=== PATIENT | male | born 1955 | race African-American/Black ===

== ENCOUNTER 2020-11-04 12:49 | Outpatient (CLI) | payer MEDICARE, MEDICAID, SELFPAY | END 2020-11-04 12:50 | disposition home or self-care (01) | LOC: ANHAUDIO 12:51 | PROVIDERS: PCP Family Medicine | DX: H90.3 Sensorineural hearing loss, bilateral (principal) | CPT/HCPCS: 92557; 92567 ==

== ENCOUNTER 2020-11-30 09:31 | Outpatient (RCR) | payer MEDICARE, MEDICAID, SELFPAY | END 2020-11-30 23:59 | disposition home or self-care (01) | LOC: ANHAUDIO 09:31 | PROVIDERS: PCP Family Medicine | DX: Z46.1 Encounter for fitting and adjustment of hearing aid (principal) | CPT/HCPCS: V5160; V5261 ==

== ENCOUNTER 2021-03-09 13:46 | Outpatient (RCR) | payer MEDICAID, SELFPAY | END 2021-03-09 23:59 | disposition home or self-care (01) | LOC: ANHAUDIO 13:46 | PROVIDERS: PCP Family Medicine; Visit Provider Family Medicine | DX: Z46.1 Encounter for fitting and adjustment of hearing aid (principal) | CPT/HCPCS: 99199 ==

== ENCOUNTER 2023-01-05 14:00 | Outpatient (RCR) | payer MEDICARE, MEDICAID, SELFPAY | END 2023-01-05 23:59 | disposition home or self-care (01) | LOC: ANHAUDIO 14:00 | PROVIDERS: PCP Family Medicine; Visit Provider Family Medicine | DX: Z46.1 Encounter for fitting and adjustment of hearing aid (principal) | CPT/HCPCS: 99199 ==

== ENCOUNTER 2025-02-05 16:07 | Inpatient (IN) | payer MEDICARE, MEDICAID, SELFPAY ==
--- NOTE | ~2025-02-05 | CT_ITS ---
CT brain wo con Ordering provider: Valentine Krause APRN History: 69 years Male with . altered mental status . Comparison: None. Technique: CT of the head without contrast. Radiation reduction technique utilized.The dose-length product was 1362 mGy-cm. FINDINGS: BRAIN PARENCHYMA AND CSF SPACES: Hypodense focus in the right occipital area is only seen in some of the images which is most likely artifactual.. Mild leukoaraiosis and diffuse cortical atrophy. Mild a theromatous disease. Old lacunar infarct seen in the left caudate head. No midline shift, mass effect or hemorrhage. The brain parenchyma and CSF spaces are otherwise normal. VISUALIZED PARANASAL SINUSES: Well aerated. MASTOIDS: Well aerated. BONES: The bones appear intact. SOFT TISSUES: Visualized nasopharynx is normal. Superficial soft tissues are normal. IMPRESSION: No acute intracranial findings. Reviewed, dictated and finalized at location A.
--- NOTE | ~2025-02-05 | XR_ITS ---
XR chest 1V Ordering provider: Valentine Krause APRN History: 69 years Male with . cardiac and COPD history . Comparison: None. FINDINGS: MEDIASTINUM: The cardiac silhouette is slightly enlarged. LUNGS: No infiltrates, effusions or pneumothorax. Prominent bronchovascular markings in the lower lob es medially. OTHER: No free air under the diaphragm. IMPRESSION: No acute cardiopulmonary pathology. Reviewed, dictated and finalized at location A.
[2025-02-05 16:10] VITALS: BP 116/64; PULSE 71; RESP 16; TEMP 36.6; O2SAT 100
[2025-02-05 17:16] VITALS: BP 123/56; PULSE 68; RESP 16; O2SAT 100
--- NOTE | 2025-02-05 17:24 | ECG_ITS ---
Test Date: 2025-02-05 17:49:18 Measurements Intervals [place] Rate: 64 P: 54 MI: 173 QRS: 80 QRSD: 97 T: 48 QT: 393 QTc: 406 Interpretive Statements SINUS RHYTHM CANNOT R/O SEPTAL INFARCT, AGE INDETERMINATE BASELINE ARTIFACT- I, II, III, AVR, AVL, AVF, V1-V6 ABNORMAL ECG No previous ECG available for comparison Electronically Signed On 02-05-2025 18:44:18 CDT by Luis Carlos Heredia D.O.
--- NOTE | 2025-02-05 17:26 | ED_ITS ---
HPI - Weakness General Chief complaint: Weakness Stated complaint: tremors, weakness Time Seen by Provider: 02/05/25 17:03 History of Present Illness HPI Narrative: Patient is 69-year-old male who presents to the ER with complaints of difficulty speaking, tremors, and weakness. He reports his symptoms have been going on for approximately 1 week. Patient reports he had back surgery about 7 weeks ago and has been living ever care for rehabilitation. He denies any pain at this time. Patient endorses a history AFib, COPD, diabetes, high blood pressure, recent laminectomy, and is on blood thinners. He denies any recent fevers, new medications, or nausea/vomiting. Related Data Home Medications ?Medication ?Instructions ?Recorded ?Confirmed ?Last Taken ?Type albuterol sulfate 90 mcg/actuation inhalation 02/05/25 Unknown History aerosol inhaler amlodipine 5 mg tablet mg 02/05/25 Unknown History apixaban 5 mg tablet (Eliquis) mg 02/05/25 Unknown History atorvastatin 80 mg tablet mg 02/05/25 Unknown History budesonide-formoterol HFA 160 inhalation 02/05/25 Unknown History mcg-4.5 mcg/actuation aerosol inhaler (Symbicort) carvedilol 25 mg tablet mg 02/05/25 Unknown History clopidogrel 75 mg tablet mg 02/05/25 Unknown History duloxetine 60 mg capsule,delayed mg PO 02/05/25 Unknown History release insulin glargine 100 unit/mL (3 unit subcut 02/05/25 Unknown History mL) subcutaneous pen (Lantus Solostar U-100 Insulin) insulin lispro 100 unit/mL subcut 02/05/25 Unknown History subcutaneous pen lactulose 10 gram/15 mL oral 02/05/25 Unknown History solution losartan 100 mg tablet mg 02/05/25 Unknown History omeprazole 20 mg capsule,delayed mg 02/05/25 Unknown History release oxycodone 5 mg tablet mg 02/05/25 Unknown History Allergies Allergy/AdvReac Type Severity Reaction Status Date / Time metformin Allergy Unknown Verified 02/05/25 17:21 vancomycin Allergy Unknown Verified 02/05/25 17:21 Review of Systems 2 Review of Systems: All systems reviewed & are unremarkable except as noted in HPI and below Exam 2 Narrative: GENERAL: Well appearing, well-nourished, non-toxic, in no acute distress. HEAD: Normocephalic, atraumatic. NECK: Supple. No adenopathy, no masses. RESPIRATORY: Airway patent, respirations nonlabored. Clear to auscultation bilaterally, no rales, rhonchi, wheezing. CARDIOVASCULAR: Regular rate and rhythm without murmurs, rubs, or gallops. Peripheral pulses 2+ and equal bilaterally. ABDOMINAL: Soft, nontender, nondistended, no hepatosplenomegaly. Normoactive BS. MUSCULOSKELETAL: Moves all extremities. Strength/ROM intact without gross deformities. SKIN: Warm, dry, normal color. No rashes. NEURO: A&O X3. Speech garbled. Left arm does not move (baseline), tremors in her right upper extremity, able to complete all neuro checks although L side weaker than R side (pt reports this is baseline), slight droop in L face with smile and tongue movement. : Pt's rectal exam indicates dark brown stool with no red blood. His hemoccult test was positive. Course Vital Signs Vital signs: Vital Signs Temperature 36.6 C 02/05/25 16:10 Pulse Rate 71 02/05/25 16:10 Respiratory Rate 16 02/05/25 16:10 Blood Pressure 116/64 02/05/25 16:10 Pulse Oximetry 100 02/05/25 16:10 Oxygen Delivery Room Air 02/05/25 16:10 Temperature 36.8 C 02/05/25 22:47 Pulse Rate 82 02/05/25 22:47 Respiratory Rate 26 H 02/05/25 22:47 Blood Pressure 158/58 H 02/05/25 22:47 Pulse Oximetry 100 02/05/25 22:47 Oxygen Delivery Room Air 02/05/25 17:16 MDM - Weakness MDM Narrative Medical decision making narrative: Patient is 69-year-old male who presents to the ER with complaints of difficulty speaking, tremors, and weakness. He reports his symptoms have been going on for approximately 1 week. Patient reports he had back surgery about 7 weeks ago and has been living ever care for rehabilitation. He denies any pain at this time. Patient endorses a history AFib, COPD, diabetes, high blood pressure, recent laminectomy, and is on blood thinners. He denies any recent fevers, new medications, or nausea/vomiting. * Pt initally reports he has never had a blood transfusion, but upon further discussion pt reports he has a history of anemia. Labs Ordered: CBC, CMP, troponin, type and screen, PTT, INR, TSH Imaging Ordered: CT brain, chest x-ray Medications Ordered: 1L NS IV bolus, 1U RBCs Results: Patient's chest x-ray indicates MEDIASTINUM: The cardiac silhouette is slightly enlarged. LUNGS: No infiltrates, effusions or pneumothorax. Prominent bronchovascular markings in the lower lobes medially. OTHER: No free air under the diaphragm. Patient's head CT indicates BRAIN PARENCHYMA AND CSF SPACES: Hypodense focus in the right occipital area is only seen in some of the images which is most likely artifactual.. Mild leukoaraiosis and diffuse cortical atrophy. Mild atheromatous disease. Old lacunar infarct seen in the left caudate head. No midline shift, mass effect or hemorrhage. The brain parenchyma and CSF spaces are otherwise normal. VISUALIZED PARANASAL SINUSES: Well aerated. MASTOIDS: Well aerated. BONES: The bones appear intact. SOFT TISSUES: Visualized nasopharynx is normal. Superficial soft tissues are normal. Pt's CBC indicates a red blood cell count of 2.16, hemoglobin of 5.4, hematocrit of 18.8%. His coags indicate a PT of 24.4 and aPTT of 65. Diagnosis: low hemoglobin Patient Education/Shared MDM: Results of lab work shared with patient. He originally refused blood transfusion, but then was in agreement after further discussion. Pt reports he had his back surgery at [facility] but he does not want to go back there for treatment. 2314- Pt endorses back pain. According to his records he usually takes Oxycodone at his SNF for pain control. Will give pt a [place] here in the ER. 2144-Spoke with Dr. Sims, who was in agreement with plan for admission. Pt will be admitted to the med/surg floor on telemetry. Spoke with pt who is in agreement with plan for admission. Differential Diagnosis Differential diagnosis: Likely anemia and dehydration Lab Data Attestation: I reviewed the patient's lab results. 02/05/25 18:48 02/05/25 18:48 Labs: Lab Results 02/05/25 02/05/25 Range/Units 18:48 20:35 WBC 4.9 (4.5-10.0) K/mm3 RBC 2.16 L (4.6-6.20) M/mm3 Hgb 5.4 L* (14.0-18.0) g/dL Hct 18.8 L* (42.0-52.0) % MCV 87.0 (80-100) fl MCH 25.0 L (26-34) pg MCHC 28.7 L (32-36) g/dl RDW 20.2 H (11.5-14.5) % Plt Count 182 (150-375) k/mm3 MPV 11.6 H (7.4-10.4) fl Immature Gran % (Auto) 0.2 (0-0.5) % Neut % (Auto) 63.6 (45.5-73.1) % Lymph % (Auto) 18.7 (18.3-44.2) % [place] % (Auto) 14.5 H (2.6-8.5) % Eos % (Auto) 2.6 (0-4.4) % Baso % (Auto) 0.4 (0.2-1.2) % Lymph # (Auto) 0.92 (0.9-3.2) K/mm3 [place] # (Auto) 0.7 H (0.1-0.6) K/mm3 Eos # (Auto) 0.1 (0-0.3) K/mm3 Baso # (Auto) 0.0 (0.0-0.1) K/mm3 Abs Immat Gran (auto) 0.01 (0.00-0.031) K/mm3 Absolute Neuts (auto) 3.1 (1.3-6.7) K/mm3 Absolute Nucleated RBC 0.000 (0.0-0.012) K/mm3 Band Neutrophils % Not Reportable Nucleated RBC % 0.0 (0.0-0.2) % Platelet Estimate Adequate (Adequate) Hypochromasia 1+ Anisocytosis 1+ Schistocytes None seen PT 24.4 H (11.1-14.7) Seconds INR 2.3 APTT 65.0 H (22.3-36.8) Seconds Sodium 138 (137-145) mmol/L Potassium 4.3 (3.4-5.0) mmol/L Chloride 105 (98-107) mmol/L Carbon Dioxide 27 (22-30) mmol/L Anion Gap 6 (4-12) mmol/L BUN 29 H (9-20) mg/dL Creatinine 1.20 (0.7-1.3) mg/dL Estim Creat Clear Calc 46 ml/min Estimated GFR 60 (59 - ) Glucose 149 H (65-110) mg/dL Calcium 8.2 L (8.4-10.2) mg/dL Iron 29 L (49-181) ug/dL TIBC 364 (265-497) ug/dL % Saturation 8 L (20-50) % Ferritin Pending Total Bilirubin 0.1 L (0.2-1.3) mg/dL AST 24 (17-59) U/L ALT 13 (6-50) U/L Alkaline Phosphatase 137 H (38-126) U/L Troponin I < 0.012 (0.000-0.034) ng/mL Total Protein 5.8 L (6.3-8.2) g/dL Albumin 3.2 L (3.5-5.1) g/dL Vitamin B12 Pending Folate Pending TSH 1.080 (0.465-4.680) uIU/mL Urine Color Yellow (Yellow) Urine Appearance Clear (Clear) Urine pH 6.0 (5.0-9.0) Ur Specific [place] 1.021 (1.001-1.035) Urine Protein Negative (Negative) mg/dL Urine Glucose (UA) 3+ H (Negative) mg/dL Urine Ketones Negative (Negative) mg/dL Ur Blood (Man) Negative (Negative) Urine Nitrate Negative (Negative) Urine Bilirubin Negative (Negative) Urine Urobilinogen 0.2 (<2.0) mg/dL Leukocyte Esterase Rfl Negative (Negative) PAT/UL Urine Opiates Screen Negative (Negative) Urine Methadone Screen Negative (Negative) Ur Barbiturates Screen Negative (Negative) Ur Phencyclidine Scrn Negative (Negative) Ur Amphetamine Screen Negative (Negative) U Benzodiazepines Scrn Negative (Negative) Urine Cocaine Screen Negative (Negative) U Cannabinoids Screen Negative (Negative) Blood Type O Positive Antibody Screen Negative Crossmatch See Detail Imaging Data Attestation: I personally reviewed and interpreted this imaging study as follows: Radiologist's impression: Impressions Head CT 02/05/25 17:45 IMPRESSION: No acute intracranial findings. Chest X-Ray 02/05/25 17:58 IMPRESSION: No acute cardiopulmonary pathology. Discharge Plan Discharge Clinical Impression: Anemia, Low hemoglobin Patient Disposition: Still a Patient Condition: Stable Patient Language: Kinyarwanda Prescriptions: No Action atorvastatin 80 mg tablet carvedilol 25 mg tablet clopidogrel 75 mg tablet amlodipine 5 mg tablet omeprazole 20 mg capsule,delayed release(DR/EC) albuterol sulfate 90 mcg/actuation HFA aerosol inhaler INHALATION losartan 100 mg tablet oxycodone 5 mg tablet insulin lispro 100 unit/mL insulin pen SUBCUT duloxetine 60 mg capsule,delayed release(DR/EC) PO lactulose 10 gram/15 mL solution budesonide-formoterol [Symbicort] 160-4.5 mcg/actuation HFA aerosol inhaler INHALATION insulin glargine [Lantus Solostar U-100 Insulin] 100 unit/mL (3 mL) insulin pen SUBCUT Eliquis 5 mg tablet Follow-up/Referrals: [place],Haresh Patel MD [Primary Care Provider] -
--- NOTE | 2025-02-05 17:32 | PC.NURSE ---
Pt to radiology at this time.
--- OUTSIDE RECORDS SUMMARY | 2025-02-05 18:02 | XMS_ITS | Encounter Summary ---
Author Organization [facility] Address [address] [place] [address] Care Team Providers Care Strip Cleaner Name Role Phone Joseph Rust MD Primary Care Provider [phone] Reason for Visit * Reason Onset Date Comments Post cpr - rib fracture & sm all right hemothorax,on elliquis 07/26/2023 Spoke W/ Desiree at Dr. Favio elliott's exchange/ Dr. Pérez environmental resource specialist Encounter Details Date Type Department Care Team (Late st Contact Info) Description 07/26/2023 Telephone [facility] Emergency [address] [place] [address] [place] [address] [place] [address] Post cpr - rib fracture & small right hemothorax,on iqu (Spoke W/ Desiree at Dr. Soria's exchange/ Dr. Pérez environmental resource specialist ) Social History Tobacco Use Types Packs/Day Years Used Date Smoking Tobacco: Every Day Cigarettes Feeling Safe Answer Date Recorded Are you in a relationship wi th someone who hurts you emotionally and/or physically? 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
--- OUTSIDE RECORDS SUMMARY | 2025-02-05 18:03 | XMS_ITS | Data Portability ---
Author Organization [facility]ITAL[facility]uthyGas[facility] Address [address] [place] [address] Care Team Providers Care Electrocardiographic Technician Name Role Phone JOSEPH RUST Primary Care Provider JOSEPH RUST Referring Provider [phone] Assessment No assessment recorded. Plan of Treatment Reminders Order Date Submit Date Provider Last Modified By Organization Details Last Modified Time Details Appointments None recorde d. Lab glucose , fingers tick, blood 2023 024 In-Office Order, Internal Use Only DO Not Attach Compendium DO Not Attach Compendium, Do Not Delete/merge, [id number] 13:31:18 HbA1c (hemogl obin A1c), blood 2023 024 In-Office Order, Internal Use Only DO Not Attach Compendium DO Not Attach Compendium, Do Not Delete/merge, [id number] 4 13:31:18 CMP, serum or plasma 2023 024 [facility], [address] [place] [address], [id number], 5 09:32:53 HbA1c (hemogl obin A1c), blood 2023 024 In-Office Order, Internal Use Only DO Not Attach Compendium DO Not Attach Compendium, Do Not Delete/merge, [id number] 4 13:51:17 glucose , fingers tick, blood 2023 024 In-Office Order, Internal Use Only DO Not Attach Compendium DO Not Attach Compendium, Do Not Delete/merge, [id number] 4 13:51:19 glucose , fingers tick, blood 2023 024 In-Office Order, Internal Use Only DO Not Attach Compendium DO Not Attach Compendium, Do Not Delete/merge, [id number] 4 17:42:06 HbA1c (hemogl obin A1c), blood 2023 024 In-Office Order, Internal Use Only DO Not Attach Compendium DO Not Attach Compendium, Do Not Delete/merge, [id number] 4 17:42:06 urinaly sis, dipstic k 2023 024 BOLIVAR In-Office Order, Internal Use Only DO Not Attach Compendium DO Not Attach Compendium, Do Not Delete/merge, [id number] 4 17:55:49 Referral neurolo gist referra l 2022 023 [facility], [address] [facility], [facility] [address], [place], [address], 4 01:40:01 neurolo gist referra l 2022 023 [facility], [address] [facility], [address], [place], [address], 3 18:35:23 Procedures None recorde d. Surgeries None recorde d. Imaging XR, chest, 2 view [facility] [address] [place], [address], 4 11:39:19 Medication Orders clopido grel 75 mg tablet 2023 024 [facility]48, [address] [place] [address], [id number], 13:31:48 omepraz ole 20 mg capsule ,delaye d release 2023 [facility] #27504, [address] [place] [address], [id number], 4 13:31:44 albuter ol sulfate HFA 90 mcg/act uation aerosol inhaler 2023 [facility] #97058, [address] [place] [address], [id number], 13:31:42 albuter ol sulfate 2.5 mg/3 mL (0.083 %) solutio n for nebuliz ation 2023 [facility] #84668, [address] [place] [address], [id number], 13:31:50 Symbico rt 160 mcg-4.5 mcg/act uation HFA aerosol inhaler 2023 [facility] #79674, [address] [place] [address], [id number], 13:31:42 Incruse Ellipta 62.5 mcg/act uation powder for inhalat ion 2023 [facility] #19328, [address] [place] [address], [id number], 13:31:40 atorvas tatin 80 mg tablet 2023 [facility] #07483, [address] [place] [address], [id number], 4 13:31:47 Enulose 10 gram/15 mL oral solutio n 2023 [facility] #76469, [address] [place] [address], [id number], 4 13:31:45 hydroxy zine HCl 10 mg tablet [email or web address] [place] [address] [facility] #80652, [address] [place] [address], [id number], 4 13:38:23 carvedi lol 25 mg tablet 2023 [facility] #87132, [address] [place] [address], [id number], 4 13:31:41 amlodip ine 5 mg tablet [email or web address] [facility] #66780, [address] [place] [address], [id number], 4 13:31:52 losarta n 100 mg tablet 2023 [facility] #12002, [address] [place] [address], [id number], 4 13:31:50 duloxet ine 60 mg capsule ,delaye d release 2023 [facility] #80179, [address] [place] [address], [id number], 4 13:31:45 clopido grel 75 mg tablet 2023 [facility] #25977, [address] [place] [address], [id number], 4 20:25:29 omepraz ole 20 mg capsule ,delaye d release 2023 [facility] #46267, [address] [place] [address], [id number], 4 20:26:04 albuter ol sulfate HFA 90 mcg/act uation aerosol inhaler 2023 [facility] #15720, [address] [place] [address], [id number], 4 20:26:10 albuter ol sulfate 2.5 mg/3 mL (0.083 %) solutio n for nebuliz ation 2023 [facility] #49585, [address] [place] [address], [id number], 4 20:26:15 Symbico rt 160 mcg-4.5 mcg/act uation HFA aerosol inhaler 2023 [facility] #28743, [address] [place] [address], [id number], 4 20:26:15 Incruse Ellipta 62.5 mcg/act uation powder for inhalat ion 2023 [facility] #25425, [address] [place] [address], [id number], 4 20:25:55 atorvas tatin 80 mg tablet 2023 [facility] #76753, [address] [place] [address], [id number], 4 20:25:59 hydroxy zine HCl 10 mg tablet 2023 [facility] #86818, [address] [place] [address], [id number], 4 20:26:15 carvedi lol 25 mg tablet 2023 024 [facility] #96645, [address] [place] [address], [id number], 4 20:26:15 amlodip ine 5 mg tablet 2023 024 [facility] #98763, [address] [place] [address], [id number], 4 20:25:21 losarta n 100 mg tablet 2023 024 [facility] #49763, [address] [place] [address], [id number], 4 20:25:49 duloxet ine 60 mg capsule ,delaye d release 2023 024 [facility] #20612, [address] [place] [address], [id number], 4 20:26:28 pregaba dilshad 75 mg capsule 2023 024 [facility], [address] [place] [address], [id number], 4 11:16:30 pregaba dilshad 75 mg capsule 2023 024 [facility] #41734, [address] [place] [address], [id number], 4 17:42:04 nortrip tyline 25 mg capsule 2022 023 [facility] #30264, [address] [place] [address], [id number], 15:32:46 ketocon azole 2 % topical cream 2022 [facility] #06368, [address] [place], [place], [id number], 15:32:41 Patient TargetsNo targets recorded. Patient Instructions Encounter Date Encounter Id Patient Instructions Last Modified By Organization Details Last Modified Time 06/06/2023 [id number] osteoarthritis: care instructions Not available 06/06/2023 18:06:31 stroke: care instructions Not available 06/06/2023 18:06:31 gastroesophageal reflux disease (GERD): care instructions Not available 06/06/2023 18:06:31 learning about h igh blood pressure Not available 06/06/2023 18:06:31 chronic obstruct joseph pulmonary disease (COPD): care instructions Not available 06/06/2023 18:06:31 learning about c opd and how to prevent lung infections Not available 06/06/2023 18:06:31 neuropathic pain : care instructions Not available 06/06/2023 18:06:31 06/15/2023 [id number] toenail fungus: care instructions fharry Not available 06/15/2023 16:14:33 athlete's foot: care instructions fharry Not available 06/15/2023 16:14:33 2023 [id number] Peripheral Arter ial Disease (PAD): Care Instructions Not available 2023 17:42:04 (RUEL) ankle brac hial index* BOLIVAR Not available 01/04/2024 10:41:09 stroke: care instructions Not available 2023 17:42:04 chronic obstruct joseph pulmonary disease (COPD): care instructions Not available 2023 17:42:04 learning about c opd and how to prevent lung infections Not available 2023 17:42:04 lumbar spinal stenosis: care instructions Not available 2023 17:42:04 atrial fibrillat ion: care instructions Not available 2023 17:42:04 learning about h igh blood pressure Not available 2023 17:42:04 03/11/2024 [id number] stroke: care instructions Not available 03/11/2024 13:51:11 back care and preventing injuries: care instructions Not available 03/11/2024 13:51:12 gastroesophageal reflux disease (GERD): care instructions Not available 03/11/2024 13:51:12 chronic obstruct joseph pulmonary disease (COPD): care instructions Not available 03/11/2024 13:51:12 learning about c opd and how to prevent lung infections Not available 03/11/2024 13:51:12 high cholesterol : care instructions Not available 03/11/2024 13:51:12 learning about h igh blood pressure Not available 03/11/2024 13:51:12 learning about m ood disorders Not available 03/11/2024 13:51:12 neuropathic pain : care instructions Not available 03/11/2024 13:51:12 08/02/2024 [id number] stroke: care instructions Not available 08/02/2024 13:31:18 back care and preventing injuries: care instructions Not available 08/02/2024 13:31:18 gastroesophageal reflux disease (GERD): care instructions Not available 08/02/2024 13:31:18 chronic obstruct joseph pulmonary disease (COPD): care instructions Not available 08/02/2024 13:31:19 learning about c opd and how to prevent lung infections Not available 08/02/2024 13:31:18 high cholesterol : care instructions Not available 08/02/2024 13:31:18 carotid stenosis : care instructions Not available 08/02/2024 13:31:18 constipation: ca re instructions Not available 08/02/2024 13:31:18 learning about h igh blood pressure Not available 08/02/2024 13:31:18 learning about m ood disorders Not available 08/02/2024 13:31:18 neuropathic pain : care instructions Not available 08/02/2024 13:31:19 Reason for Referral Neurologist Referral for Juliann ropathy Referring Physician: Joseph Rust [facility], Encounter Date: 06/06/2023 Neurologist Referral for Cer ebrovascular accident Referring Physician: Joseph Rust [facility], Encounter Date: 06/06/2023 Results Created Date Observation Date Name Description Value Unit Range Abnormal Flag Note LastModifiedBy Organization Detail LastModifiedTime 10/04/19 24 10/04/2023 WOUND CULTU RE [facility] [place] [address] Patie nt:CAREY SLAUGHTER [id number] Med Rec#: [id number] Order ing MD: TRINY NICE : [birth year] Sex: M Locat ion: [facility] B Test: WOUND CULTU RE Colle ct Date: 10-04 15:10 Acces preethi #: [id number] Not Available [facility] (Lab) One [facility], [place], [address], 10/07/2023 11:16:17 10/04/19 24 10/04/2023 WOUND CULTU RE wound culture SPECI MEN DESCR IPTIO N - THIGH ,LEFT SPECI AL REQUE STS - NO SPECI AL REQUE ST GRAM SMEAR - RARE WHITE BLOOD CELLS SEEN GRAM SMEAR - MODER ATE RED BLOOD CELLS SEEN GRAM SMEAR - NO ORGAN ISMS SEEN CULTU RE - NO GROWT H 3 DAYS CULTU RE - NOTE: WOUND AND TISSU E CULTU RES ARE ROUTI ARLEEN SCREE KAYLAH FOR AEROB IC ORGAN ISMS CULTU RE - ONLY. REPOR T STATU S - FINAL 10/07 Not Available [facility] (Lab) One [facility], [place], [address], 10/07/2023 11:16:17 10/04/19 24 10/04/2023 HEMOG LOBIN A1C hemoglobin A1C 6.4 % <5.7 high ADA GUIDE LINES 2010 5.7 TO 6.4% INCRE ASED RISK OF DIABE ALYSA > OR = 6.5% CONSI STENT WITH DIABE ALYSA Not Available [facility] (Lab) [place], [address], 10/04/2023 21:38:10 10/04/19 24 10/04/2023 HEMOG LOBIN A1C estimated average glucose, isadora 137 mg/dL Not Available [facility] (Lab) [address], [place], [address], 10/04/2023 21:38:10 12/19/19 24 12/19/2023 VITAM IN B12 vitamin B12 1126 pg/mL 254-13 20 Not Available [facility] (Lab) [address], [place], [address], 12/19/2023 14:55:14 12/19/19 24 12/19/2023 FOLAT E folate 26.8 NG/mL 3.1-17 .5 high Not Available [facility] (Lab) [place], [address], 12/19/2023 14:55:15 12/19/19 24 12/24/2023 VITAM IN B6, PLASM A vitamin B6, plasma 8.1 Refer ence range : 2.1 to 21.7 Unit: ng/mL Vitam in suppl ement ation withi n 24 hours prior to blood draw may affec t the accur acy of the resul ts. This test was devel oped and its jeff tical perfo rmanc e jonas cteri stics have been deter mined by [facility] Mirela [facility], [place]. It has not been clear ed or appro diana by the U.S. Food and Drug Admin istra tion. This assay has been valid ated pursu ant to the CLIA regul ation s and is used for clini isadora purpo ses. Test Perfo rmed by Rukhsana Nance, [facility], [address] [place], [place] Belen Whitlock M.D., Ph.D. , [facility] atori es , CLIA [id number] Not Available [facility] (Lab) [place], [address], 12/24/2023 16:06:25 12/19/19 24 2023 VITAM IN B1, LCMSM S vitamin B1, lcmsms 33 high Refer ence range : 8 to 30 Unit: nmol/ L Vitam in suppl ement atjose enrique withi n 24 hours prior to blood draw may affec t the accur acy of the unm hospital ts. This test was devel oped and its jeff tical perfo rmanc e jonas cteri stics have been deter mined by [facility] [place]. It has not been clear ed or appro diana by the U.S. Food and Drug Admin istra tion. This assay has been valid ated pursu ant to the CLIA regul ation s and is used for clini isadora purpo ses. Test Perfo rmed by Rukhsana Nance, [facility], [address] [facility] , [place], [place] Belen Whitlock M.D., Ph.D. , [facility] atori es [phone], CLIA [id number] Not Available [facility] (Lab) [place], [address], 2023 06:09:32 12/19/19 24 12/19/2023 Folat e [Mass /volu me] in Serum or Plasm a folate [mass/volume ] in serum or plasma 26.8 text: 3.1 - 17.5 NG/mL high FOLAT E 26.8 (H) 3.1 - 17.5 NG/ML 12/18 1:55 PM CDT [facility] Not Available Not Available 11/12/2024 11:10:10 12/19/19 24 12/19/2023 Folat e [Mass /volu me] in Serum or Plasm a interpretati on and review of laboratory results Abnorm al Not Available Not Available 11:10:10 12/19/19 24 12/24/2023 Pyrid oxine [Mass /volu me] in Serum or Plasm a pyridoxine [mass/volume ] in serum or plasma 8.1 NG/mL low: 2.1NG/ mLhigh : 21.7NG /mL VITAM IN B6 S/P/B 8.1 2.1 - 21.7 ng/mL 12/23 3:06 PM CDT [facility] Not Available Not Available 11/12/2024 11:10:10 12/19/19 24 2023 Miguel ine [Mole s/vol ume] in Serum or Plasm a thiamine [moles/volum e] in serum or plasma 33 nmol/ L low: 8nmol/ Lhigh: 30nmol /L high VITAM IN B1 S/P/B 33 (H) 8 - 30 nmol/ L 12/24 5:09 AM CDT [facility] Not Available Not Available 11/12/2024 11:10:10 12/19/19 24 2023 Miguel ine [Mole s/vol ume] in Serum or Plasm a interpretati on and review of laboratory results Abnorm al Not Available Not Available 11:10:10 12/19/19 24 12/19/2023 Cobal dinh (Norma min B12) [Mass /volu me] in Serum or Plasm a cobalamin (vitamin B12) [mass/volume ] in serum or plasma 1126 pg/mL low: 254pg/ mLhigh : 1320pg /mL VITAM IN B12 S/P/B 1,126 254 - 1,320 PG/ML 12/18 1:55 PM CDT [facility] Not Available Not Available 11/12/2024 11:10:10 12/25/19 24 2023 urina lysis , dipst ick Leukocytes Negati ve Not Available In-Office Order Internal Use Only DO Not Attach Compendium DO Not Attach Compendium, Do Not Delete/merge, [id number] 2023 17:08:21 12/25/19 24 2023 urina lysis , dipst ick Nitrite negati ve Not Available In-Office Order Internal Use Only DO Not Attach Compendium DO Not Attach Compendium, Do Not Delete/merge, 2023 17:08:21 12/25/19 24 2023 urina lysis , dipst ick Urobilinogen 1 Not Available In-Of fice Order Internal Use Only DO Not Attach Compendium DO Not Attach Compendium, Do Not Delete/merge, 2023 17:08:21 12/25/19 24 2023 urina lysis , dipst ick Protein 30 Not Available In-Office Order Internal Use Only DO Not Attach Compendium DO Not Attach Compendium, Do Not Delete/merge, 2023 17:08:21 12/25/19 24 2023 urina lysis , dipst ick pH 6.0 Not Available In-Office Order Internal Use Only DO Not Attach Compendium DO Not Attach Compendium, Do Not Delete/merge, 2023 17:08:21 12/25/19 24 2023 urina lysis , dipst ick Blood Negati ve Not Available In-Office Order Internal Use Only DO Not Attach Compendium DO Not Attach Compendium, Do Not Delete/merge, 2023 17:08:21 12/25/19 24 2023 urina lysis , dipst ick Specific [place] 1.025 Not Available In-Off ice Order Internal Use Only DO Not Attach Compendium DO Not Attach Compendium, Do Not Delete/merge, 2023 17:08:21 12/25/19 24 2023 urina lysis , dipst ick Ketone Negati ve Not Available In-Office Order Internal Use Only DO Not Attach Compendium DO Not Attach Compendium, Do Not Delete/merge, 2023 17:08:21 12/25/19 24 2023 urina lysis , dipst ick Bilirubin Negati ve Not Available In-Office Order Internal Use Only DO Not Attach Compendium DO Not Attach Compendium, Do Not Delete/merge, 2023 17:08:21 12/25/19 24 2023 urina lysis , dipst ick Glucose Negati ve Not Available In-Office Order Internal Use Only DO Not Attach Compendium DO Not Attach Compendium, Do Not Delete/merge, 2023 17:08:21 12/25/19 24 2023 urina lysis , dipst ick Appearance Clear Not Available In-Offi ce Order Internal Use Only DO Not Attach Compendium DO Not Attach Compendium, Do Not Delete/merge, 2023 17:08:21 12/25/19 24 2023 urina lysis , dipst ick Color Yellow Not Available In-Office Order Internal Use Only DO Not Attach Compendium DO Not Attach Compendium, Do Not Delete/merge, 2023 17:08:21 12/25/1912/25/2023 HbA1c (hemo globi n A1c), blood HbA1c 7.2 Not Available In-Office Order Internal Use Only DO Not Attach Compendium DO Not Attach Compendium, Do Not Delete/merge, 2023 17:02:45 12/25/19 24 2023 gluco se, finge rstic k, blood Blood Glucose: mg/dl 196 Not Available In-Off ice Order Internal Use Only DO Not Attach Compendium DO Not Attach Compendium, Do Not Delete/merge, [id number] 2023 17:02:44 03/06/20 24 03/06/2024 Basic metab olic 1999 panel - Serum or Plasm a sodium [moles/volum e] in serum or plasma 137 mmol/ L low: 136mmo l/Lhig h: 145mmo l/L SODIU M 137 136 - 145 mmol/ L 03/06 6:38 PM CDT [facility] Not Available Not Available 11/08/2024 09:51:40 03/06/20 24 03/06/2024 Basic metab olic 1999 panel - Serum or Plasm a potassium [moles/volum e] in serum or plasma 5.2 mmol/ L low: 3.4mmo l/Lhig h: 5.1mmo l/L high POTAS SIUM 5.2 (H) 3.4 - 5.1 mmol/ L 03/06 6:38 PM CDT [facility] Not Available Not Available 11/08/2024 09:51:40 03/06/20 24 03/06/2024 Basic metab olic 1999 panel - Serum or Plasm a chloride 98 mmol/ L low: 98mmol /Lhigh : 107mmo l/L CHLOR SYLVIA 98 98 - 107 mmol/ L 03/06 6:38 PM CDT [facility] Not Available Not Available 11/08/2024 09:51:40 03/06/20 24 03/06/2024 Basic metab olic 1999 panel - Serum or Plasm a carbon dioxide, total [moles/volum e] in serum or plasma 26 mmol/ L low: 22mmol /Lhigh : 29mmol /L CO2 26 22 - 29 mmol/ L 03/06 6:38 PM CDT [facility] Not Available Not Available 11/08/2024 09:51:40 03/06/20 24 03/06/2024 Basic metab olic 1999 panel - Serum or Plasm a calcium 8.7 mg/dL low: 8.6mg/ dLhigh : 10.4mg /dL CALCI UM 8.7 8.6 - 10.4 mg/dL 03/06 6:38 PM CDT [employer] [facility] Not Available Not Available 11/08/2024 09:51:40 03/06/20 24 03/06/2024 Basic metab olic 2000 panel - Serum or Plasm a BUN 31 mg/dL low: 6mg/dL high: 20mg/d L high BUN 31 (H) 6 - 20 mg/dL 03/06 6:38 PM CDT [facility] Not Available Not Available 11/08/2024 09:51:40 03/06/20 24 03/06/2024 Basic metab olic 1999 panel - Serum or Plasm a creatinine [mass/volume ] in serum or plasma 0.89 mg/dL low: 0.67mg /dLhig h: 1.17mg /dL CREAT ININE 0.89 0.67 - 1.17 mg/dL 03/06 6:38 PM T [employer] [facility] Not Available Not Available 11/08/2024 09:51:40 03/06/20 24 03/06/2024 Basic metab olic 2000 panel - Serum or Plasm a glucose [mass/volume ] in serum or plasma 347 mg/dL low: 74mg/d Lhigh: 99mg/d L high GLUCO SE 347 (H) 74 - 99 mg/dL 03/06 6:38 PM CDT [facility] Not Available Not Available 11/08/2024 09:51:40 03/06/2003/06/2024 Basic metab olic 2000 panel - Serum or Plasm a glomerular filtration rate/1.73 sq M.predicted [volume rate/area] in serum, plasma or blood by creatinine-b ased formula (CKD-epi 2020) text: >=60 mL/min /1.73 sq meter GFR >60 >=60 mL/mi n/1.7 3 sq meter 03/06 6:38 PM CDT [employer] [facility] Not Available Not Available 11/08/2024 09:51:40 03/06/20 24 03/06/2024 Basic metab olic 2000 panel - Serum or Plasm a anion gap 13 mmol/ L low: 8mmol/ Lhigh: 16mmol /L ANION GAP 13 8 - 16 mmol/ L 03/06 6:38 PM CDT [facility] Not Available Not Available 11/08/2024 09:51:40 03/06/20 24 03/06/2024 Basic metab olic 1999 panel - Serum or Plasm a interpretati on and review of laboratory results Abnorm al Not Available Not Available 09:51:40 03/06/20 24 03/06/2024 CBC W Auto Diffe renti al panel - Blood leukocytes [#/volume] in blood 5.9 K/uL low: 4.5K/u Lhigh: 10.5K/ uL WBC 5.9 4.5 - 10.5 K/uL 03/06 6:17 PM CDT [facility] Not Available Not Available 11/08/2024 09:51:40 03/06/20 24 03/06/2024 CBC W Auto Diffe renti al panel - Blood RBC 3.64 text: 4.50 - 5.40 M/uL low RBC 3.64 (L) 4.50 - 5.40 M/uL 03/06 6:17 PM CDT [employer] [facility] Not Available Not Available 11/08/2024 09:51:40 03/06/20 24 03/06/2024 CBC W Auto Diffe renti al panel - Blood hemoglobin 7.9 g/dL low: 13.6g/ dLhigh : 16.5g/ dL low HEMOG LOBIN 7.9 (L) 13.6 - 16.5 g/dL 03/06 6:17 PM CDT [employer] DENNIS [employer] [facility] Not Available Not Available 11/08/2024 09:51:40 03/06/20 24 03/06/2024 CBC W Auto Diffe renti al panel - Blood hematocrit [volume fraction] of blood by automated count 26.9 % low: 40%hig h: 48% low HEMAT OCRIT 26.9 (L) 40.0 - 48.0 % 03/06 6:17 PM CDT [employer] [facility] Not Available Not Available 11/08/2024 09:51:40 03/06/20 24 03/06/2024 CBC W Auto Diffe renti al panel - Blood MCV 73.9 fL low: 82fLhi gh: 99fL low MCV 73.9 (L) 82.0 - 99.0 fL 03/06 6:17 PM CDT [employer] [facility] Not Available Not Available 11/08/2024 09:51:40 03/06/20 24 03/06/2024 CBC W Auto Diffe renti al panel - Blood MCH 21.8 pg low: 27.8pg high: 34.5pg low MCH 21.8 (L) 27.8 - 34.5 pg 03/06 6:17 PM CDT [employer] [facility] Not Available Not Available 11/08/2024 09:51:40 03/06/20 24 03/06/2024 CBC W Auto Diffe renti al panel - Blood MCHC 29.5 g/dL low: 32.5g/ dLhigh : 35.5g/ dL low MCHC 29.5 (L) 32.5 - 35.5 g/dL 03/06 6:17 PM CDT [employer] [facility] Not Available Not Available 11/08/2024 09:51:40 03/06/20 24 03/06/2024 CBC W Auto Diffe renti al panel - Blood RDW 21.8 % low: 11.5%h igh: 14.5% high RDW 21.8 (H) 11.5 - 14.5 % 03/06 6:17 PM CDT [facility] Not Available Not Available 11/08/2024 09:51:40 03/06/20 24 03/06/2024 CBC W Auto Diffe renti al panel - Blood platelets [#/volume] in blood by automated count 240 K/uL low: 160K/u Lhigh: 420K/u L PLATE LETS 240 160 - 420 K/uL 03/06 6:17 PM CDT [employer] [facility] Not Available Not Available 11/08/2024 09:51:40 03/06/20 24 03/06/2024 CBC W Auto Diffe renti al panel - Blood MPV 7.5 fL low: 8.7fLh igh: 12.7fL low MPV 7.5 (L) 8.7 - 12.7 fL 03/06 6:17 PM CDT [facility] Not Available Not Available 11/08/2024 09:51:40 03/06/20 24 03/06/2024 CBC W Auto Diffe renti al panel - Blood neutrophils 94 % NEUTR OPHIL S 94 % 03/06 6:17 PM CDT [facility] Not Available Not Available 11/08/2024 09:51:40 03/06/20 24 03/06/2024 CBC W Auto Diffe renti al panel - Blood lymphocytes/ 100 leukocytes in blood by automated count 2 % LYMPH OCYTE S 2 % 03/06 6:17 PM CDT [facility] Not Available Not Available 11/08/2024 09:51:40 03/06/20 24 03/06/2024 CBC W Auto Diffe renti al panel - Blood monocytes 4 % MONOC YTES 4 % 03/06 6:17 PM CDT [facility] Not Available Not Available 11/08/2024 09:51:40 03/06/20 24 03/06/2024 CBC W Auto Diffe renti al panel - Blood eosinophils 0 % EOSIN OPHIL S 0 % 03/06 6:17 PM CDT [facility] Not Available Not Available 11/08/2024 09:51:40 03/06/20 24 03/06/2024 CBC W Auto Diffe renti al panel - Blood basophils 0 % BASOP HILS 0 % 03/06 6:17 PM CDT [facility] Not Available Not Available 11/08/2024 09:51:40 03/06/20 24 03/06/2024 CBC W Auto Diffe renti al panel - Blood neutrophils [#/volume] in blood by automated count 5.6 K/uL low: 1.9K/u Lhigh: 7K/uL NEUTR OPHIL ABSOL [place] BAND 5.60 1.90 - 7.00 K/uL 03/06 6:17 PM CDT [facility] Not Available Not Available 11/08/2024 09:51:40 03/06/20 24 03/06/2024 CBC W Auto Diffe marisolti al panel - Blood lymphocyte absolute 0.1 K/uL low: 0.7K/u Lhigh: 4.5K/u L low LYMPH OCYTE ABSOL [place]AIR[place] BAND 0.10 (L) 0.70 - 4.50 K/uL 03/06 6:17 PM CDT [facility] Not Available Not Available 11/08/2024 09:51:40 03/06/20 24 03/06/2024 CBC W Auto Diffe rose minaya panel - Blood monocyte absolute 0.2 K/uL low: 0.1K/u Lhigh: 1.3K/u L MONOC YTE ABSOL [place] BAND 0.20 0.10 - 1.30 K/uL 03/06 6:17 PM CDT [facility] Not Available Not Available 11/08/2024 09:51:40 03/06/20 24 03/06/2024 CBC W Auto Diffe rose al panel - Blood eosinophil absolute 0 K/uL low: 0K/uLh igh: 0.7K/u L EOSIN OPHIL ABSOL [place]AIR[place] BAND 0.00 0.00 - 0.70 K/uL 03/06 6:17 PM CDT [facility] Not Available Not Available 11/08/2024 09:51:40 03/06/20 24 03/06/2024 CBC W Auto Diffe rose al panel - Blood basophils absolute 0 K/uL low: 0K/uLh igh: 0.2K/u L BASOP HILS ABSOL [place]IR[place] BAND 0.00 0.00 - 0.20 K/uL 03/06 6:17 PM CDT [facility] Not Available Not Available 11/08/2024 09:51:40 03/06/20 24 03/06/2024 CBC W Auto Diffe rose al panel - Blood interpretati on and review of laboratory results Abnorm rei Not Available Not Available 09:51:40 03/07/20 24 03/07/2024 Basic metab olic 1999 panel - Serum or Plasm a sodium [moles/volum e] in serum or plasma 134 mmol/ L low: 136mmo l/Lhig h: 145mmo l/L low SODIU M 134 (L) 136 - 145 mmol/ L 03/07 8:17 AM CDT Ziegler [facility] [employer] [facility] Not Available Not Available 11/08/2024 09:51:40 03/07/20 24 03/07/2024 Basic metab olic 1999 panel - Serum or Plasm a potassium [moles/volum e] in serum or plasma 4.9 mmol/ L low: 3.4mmo l/Lhig h: 5.1mmo l/L POTAS SIUM 4.9 3.4 - 5.1 mmol/ L 03/07 8:17 AM CDT [facility] [employer] [facility] Not Available Not Available 11/08/2024 09:51:40 03/07/20 24 03/07/2024 Basic metab olic 1999 panel - Serum or Plasm a chloride 98 mmol/ L low: 98mmol /Lhigh : 107mmo l/L CHLOR SYLVIA 98 98 - 107 mmol/ L 03/07 8:17 AM CDT [facility] [employer] [facility] Not Available Not Available 11/08/2024 09:51:40 03/07/20 24 03/07/2024 Basic metab olic 1999 panel - Serum or Plasm a carbon dioxide, total [moles/volum e] in serum or plasma 24 mmol/ L low: 22mmol /Lhigh : 29mmol /L CO2 24 22 - 29 mmol/ L 03/07 8:17 AM CDT [employer] [facility] Not Available Not Available 11/08/2024 09:51:40 03/07/20 24 03/07/2024 Basic metab olic 1999 panel - Serum or Plasm a calcium 8.2 mg/dL low: 8.6mg/ dLhigh : 10.4mg /dL low CALCI UM 8.2 (L) 8.6 - 10.4 mg/dL 03/07 8:17 AM CDT Ziegler [facility] Not Available Not Available 11/08/2024 09:51:40 03/07/20 24 03/07/2024 Basic metab olic 1999 panel - Serum or Plasm a BUN 28 mg/dL low: 6mg/dL high: 20mg/d L high BUN 28 (H) 6 - 20 mg/dL 03/07 8:17 AM [facility] Not Available Not Available 11/08/2024 09:51:40 03/07/20 24 03/07/2024 Basic metab olic 1999 panel - Serum or Plasm a creatinine [mass/volume ] in serum or plasma 0.75 mg/dL low: 0.67mg /dLhig h: 1.17mg /dL CREAT ININE 0.75 0.67 - 1.17 mg/dL 03/07 8:17 AM [facility] Not Available Not Available 11/08/2024 09:51:40 03/07/20 24 03/07/2024 Basic metab olic 1999 panel - Serum or Plasm a glucose [mass/volume ] in serum or plasma 313 mg/dL low: 74mg/d Lhigh: 99mg/d L high GLUCO SE 313 (H) 74 - 99 mg/dL 03/07 8:17 AM [facility]GL[facility] Not Available Not Available 11/08/2024 09:51:40 03/07/20 24 03/07/2024 Basic metab olic 1999 panel - Serum or Plasm a glomerular filtration rate/1.73 sq M.predicted [volume rate/area] in serum, plasma or blood by creatinine-b ased formula (CKD-epi 2020) text: >=60 mL/min /1.73 sq meter GFR >60 >=60 mL/mi n/1.7 3 sq meter 03/07 8:17 AM Moya Okruga [facility] Not Available Not Available 11/08/2024 09:51:40 03/07/20 24 03/07/2024 Basic metab olic 2000 panel - Serum or Plasm a anion gap 12 mmol/ L low: 8mmol/ Lhigh: 16mmol /L ANION GAP 12 8 - 16 mmol/ L 03/07 8:17 AM CDEna [facility] Not Available Not Available 11/08/2024 09:51:40 03/07/20 24 03/07/2024 Basic metab olic 2000 panel - Serum or Plasm a interpretati on and review of laboratory results Abnorm al Not Available Not Available 09:51:40 03/07/20 24 03/07/2024 CBC W Auto Diffe renti al panel - Blood leukocytes [#/volume] in blood 6.9 K/uL low: 4.5K/u Lhigh: 10.5K/ uL WBC 6.9 4.5 - 10.5 K/uL 03/07 7:49 AM CDEna [facility] Not Available Not Available 11/08/2024 09:51:40 03/07/20 24 03/07/2024 CBC W Auto Diffe renti al panel - Blood RBC 3.62 text: 4.50 - 5.40 M/uL low RBC 3.62 (L) 4.50 - 5.40 M/uL 03/07 7:49 AM [employer] [facility] Not Available Not Available 11/08/2024 09:51:40 03/07/20 24 03/07/2024 CBC W Auto Diffe renti al panel - Blood hemoglobin 8 g/dL low: 13.6g/ dLhigh : 16.5g/ dL low HEMOG LOBIN 8.0 (L) 13.6 - 16.5 g/dL 03/07 7:49 AM [facility]IN [facility] Not Available Not Available 11/08/2024 09:51:40 03/07/20 24 03/07/2024 CBC W Auto Diffe renti al panel - Blood hematocrit [volume fraction] of blood by automated count 26.9 % low: 40%hig h: 48% low HEMAT OCRIT 26.9 (L) 40.0 - 48.0 % 03/07 7:49 AM CDToutApp [facility] Not Available Not Available 11/08/2024 09:51:40 03/07/20 24 03/07/2024 CBC W Auto Diffe renti al panel - Blood MCV 74.1 fL low: 82fLhi gh: 99fL low MCV 74.1 (L) 82.0 - 99.0 fL 03/07 7:49 AM CDT [facility] Not Available Not Available 11/08/2024 09:51:40 03/07/20 24 03/07/2024 CBC W Auto Diffe renti al panel - Blood MCH 21.9 pg low: 27.8pg high: 34.5pg low MCH 21.9 (L) 27.8 - 34.5 pg 03/07 7:49 AM [place] [facility] [facility] Not Available Not Available 11/08/2024 09:51:40 03/07/20 24 03/07/2024 CBC W Auto Diffe renti al panel - Blood MCHC 29.6 g/dL low: 32.5g/ dLhigh : 35.5g/ dL low MCHC 29.6 (L) 32.5 - 35.5 g/dL 03/07 7:49 AM [facility] Not Available Not Available 11/08/2024 09:51:40 03/07/20 24 03/07/2024 CBC W Auto Diffe renti al panel - Blood RDW 21.8 % low: 11.5%h igh: 14.5% high RDW 21.8 (H) 11.5 - 14.5 % 03/07 7:49 AM [facility] Not Available Not Available 11/08/2024 09:51:40 03/07/20 24 03/07/2024 CBC W Auto Diffe renti al panel - Blood platelets [#/volume] in blood by automated count 222 K/uL low: 160K/u Lhigh: 420K/u L PLATE LETS 222 160 - 420 K/uL 03/07 7:49 AM CDT [facility]ten[facility]GL[facility] Not Available Not Available 11/08/2024 09:51:40 03/07/20 24 03/07/2024 CBC W Auto Diffe renti al panel - Blood MPV 7.2 fL low: 8.7fLh igh: 12.7fL low MPV 7.2 (L) 8.7 - 12.7 fL 03/07 7:49 AM CDT [facility]GL[facility] Not Available Not Available 11/08/2024 09:51:40 03/07/20 24 03/07/2024 CBC W Auto Diffe renti al panel - Blood neutrophils 91 % NEUTR OPHIL S 91 % 03/07 7:49 AM CDT [facility] Not Available Not Available 11/08/2024 09:51:40 03/07/20 24 03/07/2024 CBC W Auto Diffe renti al panel - Blood lymphocytes/ 100 leukocytes in blood by automated count 2 % LYMPH OCYTE S 2 % 03/07 7:49 AM CDT [facility] Not Available Not Available 11/08/2024 09:51:40 03/07/20 24 03/07/2024 CBC W Auto Diffe renti al panel - Blood monocytes 6 % MONOC YTES 6 % 03/07 7:49 AM CDT [facility] Not Available Not Available 11/08/2024 09:51:40 03/07/20 24 03/07/2024 CBC W Auto Diffe renti al panel - Blood eosinophils 0 % EOSIN OPHIL S 0 % 03/07 7:49 AM CDT [facility] Not Available Not Available 11/08/2024 09:51:40 03/07/20 24 03/07/2024 CBC W Auto Diffe renti al panel - Blood basophils 1 % BASOP HILS 1 % 03/07 7:49 AM CDT [facility] Not Available Not Available 11/08/2024 09:51:40 03/07/20 24 03/07/2024 CBC W Auto Diffe renti al panel - Blood neutrophils [#/volume] in blood by automated count 6.3 K/uL low: 1.9K/u Lhigh: 7K/uL NEUTR OPHIL ABSOL [place] BAND 6.30 1.90 - 7.00 K/uL 03/07 7:49 AM [facility] Not Available Not Available 11/08/2024 09:51:40 03/07/20 24 03/07/2024 CBC W Auto Diffe renti al panel - Blood lymphocyte absolute 0.2 K/uL low: 0.7K/u Lhigh: 4.5K/u L low LYMPH OCYTE ABSOL [place] BAND 0.20 (L) 0.70 - 4.50 K/uL 03/07 7:49 AM [facility]ITAL[facility]oxPop[facility] Not Available Not Available 11/08/2024 09:51:40 03/07/20 24 03/07/2024 CBC W Auto Diffe renti al panel - Blood monocyte absolute 0.4 K/uL low: 0.1K/u Lhigh: 1.3K/u L MONOC YTE ABSOL [place] BAND 0.40 0.10 - 1.30 K/uL 03/07 7:49 AM [facility] Not Available Not Available 11/08/2024 09:51:40 03/07/20 24 03/07/2024 CBC W Auto Diffe renti al panel - Blood eosinophil absolute 0 K/uL low: 0K/uLh igh: 0.7K/u L EOSIN OPHIL ABSOL [place] BAND 0.00 0.00 - 0.70 K/uL 03/07 7:49 AM [facility] Not Available Not Available 11/08/2024 09:51:40 03/07/20 24 03/07/2024 CBC W Auto Diffe renti al panel - Blood basophils absolute 0 K/uL low: 0K/uLh igh: 0.2K/u L BASOP HILS ABSOL [place]AIR[place] BAND 0.00 0.00 - 0.20 K/uL 03/07 7:49 AM CDT Ziegler [facility]ox[facility] Not Available Not Available 11/08/2024 09:51:40 03/07/20 24 03/07/2024 CBC W Auto Diffe rose al panel - Blood interpretati on and review of laboratory results Abnorm al Not Available Not Available 09:51:40 03/08/20 24 03/08/2024 Basic metab olic 1999 panel - Serum or Plasm a sodium [moles/volum e] in serum or plasma 135 mmol/ L low: 136mmo l/Lhig h: 145mmo l/L low SODIU M 135 (L) 136 - 145 mmol/ L 03/08 7:08 AM T Altenera TechnologyMISSION HOSPITAL MCDOWELLVoxPopMe [facility] Not Available Not Available 11/08/2024 09:51:40 03/08/20 24 03/08/2024 Basic metab olic 1999 panel - Serum or Plasm a potassium [moles/volum e] in serum or plasma 4.2 mmol/ L low: 3.4mmo l/Lhig h: 5.1mmo l/L POTAS SIUM 4.2 3.4 - 5.1 mmol/ L 03/08 7:08 AM [facility] Not Available Not Available 11/08/2024 09:51:40 03/08/20 24 03/08/2024 Basic metab olic 1999 panel - Serum or Plasm a chloride 100 mmol/ L low: 98mmol /Lhigh : 107mmo l/L CHLOR SYLVIA 100 98 - 107 mmol/ L 03/08 7:08 AM CDPixate DENNIS [employer] [facility] Not Available Not Available 11/08/2024 09:51:40 03/08/20 24 03/08/2024 Basic metab olic 1999 panel - Serum or Plasm a carbon dioxide, total [moles/volum e] in serum or plasma 28 mmol/ L low: 22mmol /Lhigh : 29mmol /L CO2 28 22 - 29 mmol/ L 03/08 7:08 AM CDT Ziegler [facility] Not Available Not Available 11/08/2024 09:51:40 03/08/20 24 03/08/2024 Basic metab olic 1999 panel - Serum or Plasm a calcium 8.9 mg/dL low: 8.6mg/ dLhigh : 10.4mg /dL CALCI UM 8.9 8.6 - 10.4 mg/dL 03/08 7:08 AM [facility] Not Available Not Available 11/08/2024 09:51:40 03/08/20 24 03/08/2024 Basic metab olic 1999 panel - Serum or Plasm a BUN 27 mg/dL low: 6mg/dL high: 20mg/d L high BUN 27 (H) 6 - 20 mg/dL 03/08 7:08 AM [facility] Not Available Not Available 11/08/2024 09:51:40 03/08/20 24 03/08/2024 Basic metab olic 1999 panel - Serum or Plasm a creatinine [mass/volume ] in serum or plasma 0.86 mg/dL low: 0.67mg /dLhig h: 1.17mg /dL CREAT ININE 0.86 0.67 - 1.17 mg/dL 03/08 7:08 AM [employer] [facility] Not Available Not Available 11/08/2024 09:51:40 03/08/20 24 03/08/2024 Basic metab olic 1999 panel - Serum or Plasm a glucose [mass/volume ] in serum or plasma 156 mg/dL low: 74mg/d Lhigh: 99mg/d L high GLUCO SE 156 (H) 74 - 99 mg/dL 03/08 7:08 AM [employer] [facility] Not Available Not Available 11/08/2024 09:51:40 03/08/20 24 03/08/2024 Basic metab olic 2000 panel - Serum or Plasm a glomerular filtration rate/1.73 sq M.predicted [volume rate/area] in serum, plasma or blood by creatinine-b ased formula (CKD-epi 2020) text: >=60 mL/min /1.73 sq meter GFR >60 >=60 mL/mi n/1.7 3 sq meter 03/08 7:08 AM CDRocketBux [facility] Not Available Not Available 11/08/2024 09:51:40 03/08/20 24 03/08/2024 Basic metab olic 2000 panel - Serum or Plasm a anion gap 7 mmol/ L low: 8mmol/ Lhigh: 16mmol /L low ANION GAP 7 (L) 8 - 16 mmol/ L 03/08 7:08 AM CDT [facility] Not Available Not Available 11/08/2024 09:51:40 03/08/20 24 03/08/2024 Basic metab olic 2000 panel - Serum or Plasm a interpretati on and review of laboratory results Abnorm al Not Available Not Available 09:51:40 03/08/20 24 03/08/2024 CBC W Auto Diffe renti al panel - Blood leukocytes [#/volume] in blood 9.8 K/uL low: 4.5K/u Lhigh: 10.5K/ uL WBC 9.8 4.5 - 10.5 K/uL 03/08 6:41 AM [employer] [facility] Not Available Not Available 11/08/2024 09:51:40 03/08/20 24 03/08/2024 CBC W Auto Diffe renti al panel - Blood RBC 3.72 text: 4.50 - 5.40 M/uL low RBC 3.72 (L) 4.50 - 5.40 M/uL 03/08 6:41 AM [employer] [facility] Not Available Not Available 11/08/2024 09:51:40 03/08/20 24 03/08/2024 CBC W Auto Diffe renti al panel - Blood hemoglobin 8.2 g/dL low: 13.6g/ dLhigh : 16.5g/ dL low HEMOG LOBIN 8.2 (L) 13.6 - 16.5 g/dL 03/08 6:41 AM [employer] [facility] Not Available Not Available 11/08/2024 09:51:40 03/08/20 24 03/08/2024 CBC W Auto Diffe renti al panel - Blood hematocrit [volume fraction] of blood by automated count 28.5 % low: 40%hig h: 48% low HEMAT OCRIT 28.5 (L) 40.0 - 48.0 % 03/08 6:41 AM CDT [facility] Not Available Not Available 11/08/2024 09:51:40 03/08/20 24 03/08/2024 CBC W Auto Diffe renti al panel - Blood MCV 76.5 fL low: 82fLhi gh: 99fL low MCV 76.5 (L) 82.0 - 99.0 fL 03/08 6:41 AM CDT [facility] Not Available Not Available 11/08/2024 09:51:40 03/08/20 24 03/08/2024 CBC W Auto Diffe renti al panel - Blood MCH 22 pg low: 27.8pg high: 34.5pg low MCH 22.0 (L) 27.8 - 34.5 pg 03/08 6:41 AM CDT [facility] Not Available Not Available 11/08/2024 09:51:40 03/08/20 24 03/08/2024 CBC W Auto Diffe renti al panel - Blood MCHC 28.8 g/dL low: 32.5g/ dLhigh : 35.5g/ dL low MCHC 28.8 (L) 32.5 - 35.5 g/dL 03/08 6:41 AM CDT [facility] Not Available Not Available 11/08/2024 09:51:40 03/08/20 24 03/08/2024 CBC W Auto Diffe renti al panel - Blood RDW 22.8 % low: 11.5%h igh: 14.5% high RDW 22.8 (H) 11.5 - 14.5 % 03/08 6:41 AM CDToutApp [facility] Not Available Not Available 11/08/2024 09:51:40 07/12/20 24 03/08/2024 CBC W Auto Diffe renti al panel - Blood platelets [#/volume] in blood by automated count 225 K/uL low: 160K/u Lhigh: 420K/u L PLATE LETS 225 160 - 420 K/uL 03/08 6:41 AM CDT [employer] [facility] Not Available Not Available 11/08/2024 09:51:40 03/08/20 24 03/08/2024 CBC W Auto Diffe renti al panel - Blood MPV 7.2 fL low: 8.7fLh igh: 12.7fL low MPV 7.2 (L) 8.7 - 12.7 fL 03/08 6:41 AM CDT [facility] [employer] [facility] Not Available Not Available 11/08/2024 09:51:40 03/08/20 24 03/08/2024 CBC W Auto Diffe renti al panel - Blood neutrophils 77 % NEUTR OPHIL S 77 % 03/08 6:41 AM CDT Altenera TechnologyMISSION HOSPITAL MCDOWELLVoxPopMe [facility] Not Available Not Available 11/08/2024 09:51:40 03/08/20 24 03/08/2024 CBC W Auto Diffe renti al panel - Blood lymphocytes/ 100 leukocytes in blood by automated count 8 % LYMPH OCYTE S 8 % 03/08 6:41 AM CDT [facility]ST[facility] [employer] [facility] Not Available Not Available 11/08/2024 09:51:40 03/08/20 24 03/08/2024 CBC W Auto Diffe renti al panel - Blood monocytes 11 % MONOC YTES 11 % 03/08 6:41 AM CDT [employer] [facility] Not Available Not Available 11/08/2024 09:51:40 03/08/20 24 03/08/2024 CBC W Auto Diffe renti al panel - Blood eosinophils 4 % EOSIN OPHIL S 4 % 03/08 6:41 AM CDT [employer] [facility] Not Available Not Available 11/08/2024 09:51:40 03/08/20 24 03/08/2024 CBC W Auto Diffe renti al panel - Blood basophils 0 % BASOP HILS 0 % 03/08 6:41 AM CDT [facility] Not Available Not Available 11/08/2024 09:51:40 03/08/20 24 03/08/2024 CBC W Auto Diffe renti al panel - Blood neutrophils [#/volume] in blood by automated count 7.6 K/uL low: 1.9K/u Lhigh: 7K/uL high NEUTR OPHIL ABSOL [place]AIR[place] BAND 7.60 (H) 1.90 - 7.00 K/uL 03/08 6:41 AM CDT [employer] [facility] Not Available Not Available 11/08/2024 09:51:40 03/08/20 24 03/08/2024 CBC W Auto Diffe renti al panel - Blood lymphocyte absolute 0.8 K/uL low: 0.7K/u Lhigh: 4.5K/u L LYMPH OCYTE ABSOL [place]AIR[place] BAND 0.80 0.70 - 4.50 K/uL 03/08 6:41 AM CDT [employer] [facility] Not Available Not Available 11/08/2024 09:51:40 03/08/20 24 03/08/2024 CBC W Auto Diffe renti al panel - Blood monocyte absolute 1 K/uL low: 0.1K/u Lhigh: 1.3K/u L MONOC YTE ABSOL [place] BAND 1.00 0.10 - 1.30 K/uL 03/08 6:41 AM CDT [employer] [facility] Not Available Not Available 11/08/2024 09:51:40 03/08/20 24 03/08/2024 CBC W Auto Diffe renti al panel - Blood eosinophil absolute 0.4 K/uL low: 0K/uLh igh: 0.7K/u L EOSIN OPHIL ABSOL [place]AIR[place] BAND 0.40 0.00 - 0.70 K/uL 03/08 6:41 AM [employer] [facility] Not Available Not Available 11/08/2024 09:51:40 03/08/20 24 03/08/2024 CBC W Auto Diffe renti al panel - Blood basophils absolute 0 K/uL low: 0K/uLh igh: 0.2K/u L BASOP HILS ABSOL [place]AIR[place] BAND 0.00 0.00 - 0.20 K/uL 03/08 6:41 AM CDT [facility] Not Available Not Available 11/08/2024 09:51:40 03/08/20 24 03/08/2024 CBC W Auto Diffe renti al panel - Blood interpretati on and review of laboratory results Abnorm al Not Available Not Available 09:51:40 03/11/20 24 03/11/2024 gluco se, finge rstic k, blood Blood Glucose: mg/dl 147 Not Available In-Off ice Order Internal Use Only DO Not Attach Compendium DO Not Attach Compendium, Do Not Delete/merge, [id number] 03/11/2024 13:19:50 03/11/20 24 03/11/2024 HbA1c (hemo globi n A1c), blood HbA1c 7.3 Not Available In-Office Order Internal Use Only DO Not Attach Compendium DO Not Attach Compendium, Do Not Delete/merge, [id number] 03/11/2024 13:19:39 03/19/20 24 03/19/2024 Gluco se [Mass /volu me] in Blood by Autom ated test strip glucose [mass/volume ] in blood by automated test strip 130 mg/dL low: 70mg/d Lhigh: 99mg/d L high GLUCO SE POC 130 (H) 70 - 99 mg/dL 03/19 9:45 PM CDT [facility] Not Available Not Available 12/11/2024 16:17:37 03/19/20 24 03/19/2024 Gluco se [Mass /volu me] in Blood by Autom ated test strip interpretati on and review of laboratory results Abnorm al Not Available Not Available 16:17:37 03/19/20 24 03/19/2024 Urina lysis compl ete panel - Urine collection method - specimen URINE CLEAN CATCH Speci men Type URINE CLEAN CATCH 03/19 8:41 PM CDT [facility] Not Available Not Available 12/11/2024 16:17:37 03/19/20 24 03/19/2024 Urina lysis compl ete panel - Urine color of urine YELLOW COLOR (U) YELLO W 03/19 9:11 PM CDT [facility] Not Available Not Available 12/11/2024 16:17:37 03/19/20 24 03/19/2024 Urina lysis compl ete panel - Urine clarity of urine CLEAR TRANS PAREN CY CLEAR 03/19 9:11 PM CDT [facility] Not Available Not Available 12/11/2024 16:17:37 03/19/20 24 03/19/2024 Urina lysis compl ete panel - Urine specific gravity of urine 1.032 low: 1.001h igh: 1.03 high SPECI FIC GRAVI TY (U) 1.032 (H) 1.001 - 1.030 03/19 9:11 PM CDT [facility] Not Available Not Available 12/11/2024 16:17:37 03/19/20 24 03/19/2024 Urina lysis compl ete panel - Urine pH of urine 6 low: 5high: 9 U PH 6.0 5.0 - 9.0 03/19 9:11 PM CDT [facility] Not Available Not Available 12/11/2024 16:17:37 03/19/20 24 03/19/2024 Urina lysis compl ete panel - Urine leukocytes [#/volume] in urine by test strip NEGATI VE text: negati ve LEUKO CYTES (U) NEGAT JOSEPH NEGAT JOSEPH 03/19 9:11 PM CDT [facility] Not Available Not Available 12/11/2024 16:17:37 03/19/20 24 03/19/2024 Urina lysis compl ete panel - Urine nitrite [presence] in urine NEGATI VE text: negati ve NITRI ALYSA NEGAT JOSEPH NEGAT JOSEPH 03/19 9:11 PM CDT [facility] Not Available Not Available 12/11/2024 16:17:37 03/19/20 24 03/19/2024 Urina lysis compl ete panel - Urine protein [mass/volume ] in urine by test strip 30 text: <30 mg/dL high PROTE IN RANDO M (U) 30 (H) <30 MG/DL 03/19 9:11 PM CDT [facility] Not Available Not Available 12/11/2024 16:17:37 03/19/20 24 03/19/2024 Urina lysis compl ete panel - Urine glucose [mass/volume ] in urine NORMAL text: normal mg/dL GLUCO SE (U) BETTIE L BETTIE L MG/DL 03/19 9:11 PM CDT [facility] Not Available Not Available 12/11/2024 16:17:37 03/19/20 24 03/19/2024 Urina lysis compl ete panel - Urine ketones [mass/volume ] in urine by test strip NEGATI VE text: negati ve mg/dL KETON ES MG/DL (U) NEGAT JOSEPH NEGAT JOSEPH MG/DL 03/19 9:11 PM CDT [facility] Not Available Not Available 12/11/2024 16:17:37 03/19/20 24 03/19/2024 Urina lysis compl ete panel - Urine urobilinogen [units/volum e] in urine by test strip 3 text: normal mg/dL abnormal UROBI LINOG EN 3.0 (A) BETTIE L MG/DL 03/19 9:11 PM T [facility] Not Available Not Available 12/11/2024 16:17:37 03/19/20 24 03/19/2024 Urina lysis compl ete panel - Urine bilirubin.to kelly [mass/volume ] in urine NEGATI VE text: negati ve mg/dL BILIR UBIN (U) NEGAT JOSEPH NEGAT JOSEPH MG/DL 03/19 9:11 PM CDT [facility] Not Available Not Available 12/11/2024 16:17:37 03/19/20 24 03/19/2024 Urina lysis compl ete panel - Urine erythrocytes [#/volume] in urine by automated test strip NEGATI VE text: negati ve BLOOD (U) NEGAT JOSEPH NEGAT JOSEPH 03/19 9:11 PM CDT [facility] Not Available Not Available 12/11/2024 16:17:37 03/19/20 24 03/19/2024 Urina lysis compl ete panel - Urine hyaline casts [#/area] in urine sediment by microscopy low power field RARE text: /lpf HYALI NE CASTS RARE /LPF 03/19 9:11 PM CDT [facility] Not Available Not Available 12/11/2024 16:17:37 03/19/20 24 03/19/2024 Urina lysis compl ete panel - Urine leukocytes [#/area] in urine sediment by microscopy high power field 2 text: <6 /hpf WBC/H PF 2 <6 /HPF 03/19 9:11 PM CDT [facility] Not Available Not Available 12/11/2024 16:17:37 03/19/20 24 03/19/2024 Urina lysis compl ete panel - Urine erythrocytes [#/area] in urine sediment by microscopy high power field 3 text: <6 /hpf RBC/H PF 3 <6 /HPF 03/19 9:11 PM CDT [facility] Not Available Not Available 12/11/2024 16:17:37 03/19/20 24 03/19/2024 Urina lysis compl ete panel - Urine interpretati on and review of laboratory results Abnorm al Not Available Not Available 16:17:37 03/19/20 24 03/19/2024 CBC W Auto Diffe renti al panel - Blood leukocytes [#/volume] in blood by automated count 8.19 text: 4.5 - 11.0 x10'3/ uL WBC 8.19 4.5 - 11.0 x10'3 /uL 03/19 7:13 PM CDT [facility] Not Available Not Available 12/11/2024 16:17:37 03/19/20 24 03/19/2024 CBC W Auto Diffe renti al panel - Blood erythrocytes [#/volume] in blood by automated count 3.45 text: 4.70 - 6.10 x10'6/ uL low RBC 3.45 (L) 4.70 - 6.10 x10'6 /uL 03/19 7:13 PM CDT [facility] Not Available Not Available 12/11/2024 16:17:37 03/19/20 24 03/19/2024 CBC W Auto Diffe renti al panel - Blood hemoglobin [mass/volume ] in blood 7.7 text: 14.0 - 18.0 g/dL low HGB 7.7 (L) 14.0 - 18.0 G/DL 03/19 7:13 PM CDT [facility] Not Available Not Available 12/11/2024 16:17:37 03/19/20 24 03/19/2024 CBC W Auto Diffe renti al panel - Blood hematocrit [volume fraction] of blood by calculation 27.1 % low: 43%hig h: 54% low HCT 27.1 (L) 43.0 - 54.0 % 03/19 7:13 PM CDT [facility] Not Available Not Available 12/11/2024 16:17:37 03/19/20 24 03/19/2024 CBC W Auto Diffe renti al panel - Blood MCV [entitic mean volume] in red blood cells 78.6 text: 80.0 - 94.0 fL low MCV 78.6 (L) 80.0 - 94.0 FL 03/19 7:13 PM CDT [facility] Not Available Not Available 12/11/2024 16:17:37 03/19/20 24 03/19/2024 CBC W Auto Diffe renti al panel - Blood MCH [entitic mass] 22.3 pg low: 27pghi gh: 31pg low MCH 22.3 (L) 27.0 - 31.0 PG 03/19 7:13 PM CDT [facility] Not Available Not Available 12/11/2024 16:17:37 03/19/20 24 03/19/2024 CBC W Auto Diffe renti al panel - Blood MCHC [entitic mass/volume] in red blood cells 28.4 text: 32.0 - 36.0 g/dL low MCHC 28.4 (L) 32.0 - 36.0 G/DL 03/19 7:13 PM CDT [facility] Not Available Not Available 12/11/2024 16:17:37 03/19/20 24 03/19/2024 CBC W Auto Diffe renti al panel - Blood RDW 23.2 % low: 11.5%h igh: 14.5% high RDW 23.2 (H) 11.5 - 14.5 % 03/19 7:13 PM CDT [facility] Not Available Not Available 12/11/2024 16:17:37 03/19/20 24 03/19/2024 CBC W Auto Diffe renti al panel - Blood platelets [#/volume] in blood 303 text: 130 - 400 x10'3/ uL PLT 303 130 - 400 x10'3 /uL 03/19 7:13 PM CDT [facility] Not Available Not Available 12/11/2024 16:17:37 03/19/20 24 03/19/2024 CBC W Auto Diffe renti al panel - Blood platelet [entitic mean volume] in blood 10.3 text: 9.3 - 12.2 fL MPV 10.3 9.3 - 12.2 FL 03/19 7:13 PM CDT [facility] Not Available Not Available 12/11/2024 16:17:37 03/19/20 24 03/19/2024 CBC W Auto Diffe renti al panel - Blood differential cell count method - blood AUTOMA ANIBAL DIFFER ENTIAL DIFFE RENTI AL TYPE AUTOM ATED DIFFE RENTI AL 03/19 7:34 PM CDT [facility] Not Available Not Available 12/11/2024 16:17:37 03/19/20 24 03/19/2024 CBC W Auto Diffe renti al panel - Blood neutrophils/ leukocytes in blood by automated count 69.5 % NEUTR OPHIL S % 69.5 % 03/19 7:34 PM CDT [facility] Not Available Not Available 12/11/2024 16:17:37 03/19/20 24 03/19/2024 CBC W Auto Diffe renti al panel - Blood lymphocytes/ leukocytes in blood by automated count 19.4 % LYMPH OCYTE S % 19.4 % 03/19 7:34 PM CDT [facility] Not Available Not Available 12/11/2024 16:17:37 03/19/20 24 03/19/2024 CBC W Auto Diffe renti al panel - Blood monocytes/le ukocytes in blood by automated count 10.1 % MONOC YTES % 10.1 % 03/19 7:34 PM CDT [facility] Not Available Not Available 12/11/2024 16:17:37 03/19/20 24 03/19/2024 CBC W Auto Diffe renti al panel - Blood eosinophils/ leukocytes in blood by automated count 0.4 % EOSIN OPHIL S 0.4 % 03/19 7:34 PM CDT [facility] Not Available Not Available 12/11/2024 16:17:37 03/19/20 24 03/19/2024 CBC W Auto Diffe renti al panel - Blood basophils/le ukocytes in blood by automated count 0.1 % BASOP HILS 0.1 % 03/19 7:34 PM CDT [facility] Not Available Not Available 12/11/2024 16:17:37 03/19/20 24 03/19/2024 CBC W Auto Diffe renti al panel - Blood immature granulocytes /leukocytes in blood by automated count 0.5 % IMMAT URE GRANS % 0.5 % 03/19 7:34 PM CDT [facility] Not Available Not Available 12/11/2024 16:17:37 03/19/20 24 03/19/2024 CBC W Auto Diffe renti al panel - Blood neutrophils [#/volume] in blood 5.69 text: 1.80 - 7.70 x10'3/ uL ABS. NEUTR OPHIL S 5.69 1.80 - 7.70 x10'3 /uL 03/19 7:34 PM CDT [facility] Not Available Not Available 12/11/2024 16:17:37 03/19/20 24 03/19/2024 CBC W Auto Diffe renti al panel - Blood lymphocytes [#/volume] in blood 1.59 text: 1.00 - 4.80 x10'3/ uL ABS. LYMPH OCYTE S 1.59 1.00 - 4.80 x10'3 /uL 03/19 7:34 PM CDT [facility] Not Available Not Available 12/11/2024 16:17:37 03/19/20 24 03/19/2024 CBC W Auto Diffe renti al panel - Blood monocytes [#/volume] in blood 0.83 text: 0.30 - 0.82 x10'3/ uL high ABS. MONOC YTES 0.83 (H) 0.30 - 0.82 x10'3 /uL 03/19 7:34 PM CDT [facility] Not Available Not Available 12/11/2024 16:17:37 03/19/20 24 03/19/2024 CBC W Auto Diffe renti al panel - Blood eosinophils [#/volume] in blood 0.03 text: 0.04 - 0.54 x10'3/ uL low ABS. EOSIN OPHIL S 0.03 (L) 0.04 - 0.54 x10'3 /uL 03/19 7:34 PM CDT [facility] Not Available Not Available 12/11/2024 16:17:37 03/19/20 24 03/19/2024 CBC W Auto Diffe renti al panel - Blood basophils [#/volume] in blood 0.01 text: 0.01 - 0.08 x10'3/ uL ABS. BASOP HILS 0.01 0.01 - 0.08 x10'3 /uL 03/19 7:34 PM CDT [facility] Not Available Not Available 12/11/2024 16:17:37 03/19/20 24 03/19/2024 CBC W Auto Diffe renti al panel - Blood immature granulocytes [#/volume] in blood 0.04 text: 0.00 - 0.49 x10'3/ uL ABS. IMMAT URE GRANU LOCYT ES 0.04 0.00 - 0.49 x10'3 /uL 03/19 7:34 PM CDT [facility] Not Available Not Available 12/11/2024 16:17:37 03/19/20 24 03/19/2024 CBC W Auto Diffe renti al panel - Blood erythrocytes [morphology] in blood by automated count SLIDE REVIEW ED RBC MORPH OLOGY SLIDE REVIE WED 03/19 7:34 PM CDT [facility] Not Available Not Available 12/11/2024 16:17:37 03/19/20 24 03/19/2024 CBC W Auto Diffe renti al panel - Blood anisocytosis [presence] in blood 2+ ANISO 2+ 03/19 7:34 PM CDT [facility] Not Available Not Available 12/11/2024 16:17:37 03/19/20 24 03/19/2024 CBC W Auto Diffe renti al panel - Blood platelets [#/volume] in blood by automated count ADEQUA TE PLT EST. ADEQU ATE 03/19 7:34 PM CDT [facility] Not Available Not Available 12/11/2024 16:17:37 03/19/20 24 03/19/2024 CBC W Auto Diffe renti al panel - Blood interpretati on and review of laboratory results Abnorm al Not Available Not Available 16:17:37 03/19/20 24 03/19/2024 Compr ehens joseph metab olic 2000 panel - Serum or Plasm a glucose [mass/volume ] in serum or plasma 204 text: 70 - 99 mg/dL high GLUCO SE 204 (H) 70 - 99 MG/DL 03/19 4:05 PM CDT [facility] Not Available Not Available 12/11/2024 16:17:37 03/19/20 24 03/19/2024 Compr ehens joseph metab olic 1999 panel - Serum or Plasm a urea nitrogen [mass/volume ] in serum or plasma 18 text: 7 - 18 mg/dL BUN 18 7 - 18 MG/DL 03/19 4:05 PM CDT [facility] Not Available Not Available 12/11/2024 16:17:37 03/19/20 24 03/19/2024 Compr ehens joseph metab olic 1999 panel - Serum or Plasm a creatinine [mass/volume ] in serum or plasma 1.04 text: 0.7 - 1.3 mg/dL CREAT ININE S/P/B 1.04 0.7 - 1.3 MG/DL 03/19 4:05 PM CDT [facility] Not Available Not Available 12/11/2024 16:17:37 03/19/20 24 03/19/2024 Compr ehens joseph metab olic 2000 panel - Serum or Plasm a sodium [moles/volum e] in serum or plasma 135 text: 136 - 145 mmol/L low SODIU M S/P/B 135 (L) 136 - 145 MMOL/ L 03/19 4:05 PM CDT [facility] Not Available Not Available 12/11/2024 16:17:37 03/19/20 24 03/19/2024 Compr ehens joseph metab olic 2000 panel - Serum or Plasm a potassium [moles/volum e] in serum or plasma 4.4 text: 3.5 - 5.1 mmol/L POTAS SIUM S/P/B 4.4 3.5 - 5.1 MMOL/ L 03/19 4:05 PM CDT [facility] Not Available Not Available 12/11/2024 16:17:37 03/19/20 24 03/19/2024 Compr ehens joseph metab olic 1999 panel - Serum or Plasm a chloride [moles/volum e] in serum or plasma 101 text: 100 - 108 mmol/L CHLOR SYLVIA S/P/B 101 100 - 108 MMOL/ L 03/19 4:05 PM CDT [facility] Not Available Not Available 12/11/2024 16:17:37 03/19/20 24 03/19/2024 Compr ehens joseph metab olic 2000 panel - Serum or Plasm a carbon dioxide, total [moles/volum e] in serum or plasma 29.7 text: 21 - 32 mmol/L CO2 29.7 21 - 32 MMOL/ L 03/19 4:05 PM CDT [facility] Not Available Not Available 12/11/2024 16:17:37 03/19/20 24 03/19/2024 Compr ehens joseph metab olic 2000 panel - Serum or Plasm a calcium [mass/volume ] in serum or plasma 8.7 text: 8.5 - 10.1 mg/dL CALCI UM S/P/B 8.7 8.5 - 10.1 MG/DL 03/19 4:05 PM CDT [facility] Not Available Not Available 12/11/2024 16:17:37 03/19/20 24 03/19/2024 Compr ehens joseph metab olic 2000 panel - Serum or Plasm a bilirubin.to kelly [mass/volume ] in serum or plasma 0.3 text: 0.2 - 1.2 mg/dL BILIR UBIN TOTAL S/P/B 0.3 0.2 - 1.2 MG/DL 03/19 4:05 PM CDT [facility] Not Available Not Available 12/11/2024 16:17:37 03/19/20 24 03/19/2024 Compr ehens joseph metab olic 1999 panel - Serum or Plasm a protein [mass/volume ] in serum or plasma 5.9 text: 6.4 - 8.2 g/dL low TOTAL PROTE IN S/P/B 5.9 (L) 6.4 - 8.2 G/DL 03/19 4:05 PM CDT [facility] Not Available Not Available 12/11/2024 16:17:37 03/19/20 24 03/19/2024 Compr ehens joseph metab olic 1999 panel - Serum or Plasm a albumin [mass/volume ] in serum or plasma 3 text: 3.4 - 5.0 g/dL low ALBUM IN S/P/B 3.0 (L) 3.4 - 5.0 G/DL 03/19 4:05 PM CDT [facility] Not Available Not Available 12/11/2024 16:17:37 03/19/20 24 03/19/2024 Compr ehens joseph metab olic 1999 panel - Serum or Plasm a aspartate aminotransfe rase [enzymatic activity/vol ume] in serum or plasma 31 U/L low: 15U/Lh igh: 37U/L AST 31 15 - 37 U/L 03/19 4:05 PM CDT [facility] Not Available Not Available 12/11/2024 16:17:37 03/19/20 24 03/19/2024 Compr ehens joseph metab olic 2000 panel - Serum or Plasm a alanine aminotransfe rase [enzymatic activity/vol ume] in serum or plasma 34 U/L low: 16U/Lh igh: 60U/L ALT 34 16 - 60 U/L 03/19 4:05 PM CDT [facility] Not Available Not Available 12/11/2024 16:17:37 03/19/20 24 03/19/2024 Compr ehens joseph metab olic 1999 panel - Serum or Plasm a alkaline phosphatase [enzymatic activity/vol ume] in serum or plasma 112 U/L low: 50U/Lh igh: 136U/L ALKAL INE PHOSP HATAS E S/P/B 112 50 - 136 U/L 03/19 4:05 PM CDT [facility] Not Available Not Available 12/11/2024 16:17:37 03/19/20 24 03/19/2024 Compr ehens joseph metab olic 1999 panel - Serum or Plasm a anion gap in serum or plasma by calculation 4.3 text: 5 - 15 mmol/L low ANION GAP 4.3 (L) 5 - 15 MMOL/ L 03/19 4:05 PM CDT [facility] Not Available Not Available 12/11/2024 16:17:37 03/19/20 24 03/19/2024 Compr ehens joseph metab olic 1999 panel - Serum or Plasm a urea nitrogen/cre atinine [mass ratio] in serum or plasma 17.3 low: 6high: 26 BUN CREAT ININE RATIO 17.3 6 - 26 03/19 4:05 PM CDT [facility] Not Available Not Available 12/11/2024 16:17:37 03/19/20 24 03/19/2024 Compr ehens joseph metab olic 1999 panel - Serum or Plasm a albumin/glob ulin [mass ratio] in serum or plasma 1 text: 1.0 - 2.0 ratio A/G RATIO 1.0 1.0 - 2.0 RATIO 03/19 4:05 PM CDT [facility] Not Available Not Available 12/11/2024 16:17:37 03/19/20 24 03/19/2024 Compr ehens joseph metab olic 2000 panel - Serum or Plasm a glomerular filtration rate [volume rate/area] in serum, plasma or blood by creatinine-b ased formula (CKD-epi 2020)/1.73 sq M 78 text: >90 mL/min /1.73 M2 low GFR ESTIM ATE 78 (L) >90 ML/ND N/1.7 3 M2 03/19 4:05 PM CDT [facility] Not Available Not Available 12/11/2024 16:17:37 03/19/20 24 03/19/2024 Compr ehens joseph metab olic 2000 panel - Serum or Plasm a interpretati on and review of laboratory results Abnorm al Not Available Not Available 16:17:37 03/19/20 24 03/19/2024 Proth rombi n time (PT) prothrombin time (PT) 14.6 text: 10.2 - 12.9 sec high PROTI ME 14.6 (H) 10.2 - 12.9 SEC 03/19 5:19 PM CDT [facility] Not Available Not Available 12/11/2024 16:17:37 03/19/20 24 03/19/2024 Proth rombi n time (PT) INR in platelet poor plasma by coagulation assay 1.3 INR 1.3 03/19 5:19 PM CDT [facility] Not Available Not Available 12/11/2024 16:17:37 03/19/20 24 03/19/2024 Proth rombi n time (PT) interpretati on and review of laboratory results Abnorm al Not Available Not Available 16:17:37 03/20/20 24 03/20/2024 Gluco se [Mass /volu me] in Blood by Autom ated test strip glucose [mass/volume ] in blood by automated test strip 138 mg/dL low: 70mg/d Lhigh: 99mg/d L high GLUCO SE POC 138 (H) 70 - 99 mg/dL 03/20 8:26 PM CDT [facility] Not Available Not Available 12/11/2024 16:17:38 03/20/20 24 03/20/2024 Gluco se [Mass /volu me] in Blood by Autom ated test strip interpretati on and review of laboratory results Abnorm al Not Available Not Available 16:17:38 03/20/20 24 03/20/2024 Gluco se [Mass /volu me] in Blood by Autom ated test strip glucose [mass/volume ] in blood by automated test strip 160 mg/dL low: 70mg/d Lhigh: 99mg/d L high GLUCO SE POC 160 (H) 70 - 99 mg/dL 03/20 4:08 PM CDT [facility] Not Available Not Available 12/11/2024 16:17:38 03/20/20 24 03/20/2024 Gluco se [Mass /volu me] in Blood by Autom ated test strip interpretati on and review of laboratory results Abnorm al Not Available Not Available 16:17:38 03/20/20 24 03/20/2024 Blood type and Indir ect antib brigid scree n panel - Blood ABO and Rh group panel - blood O POSITI VE ABO/R H O POSIT JOSEPH 03/20 1:19 PM CDT [facility] Not Available Not Available 12/11/2024 16:17:38 03/20/20 24 03/20/2024 Blood type and Indir ect antib brigid scree n panel - Blood blood group antibody screen [presence] in serum or plasma NEGATI VE ANTIB BRIGID SCREE N NEGAT JOSEPH 03/20 1:19 PM CDT [facility] Not Available Not Available 12/11/2024 16:17:38 03/20/20 24 03/20/2024 Blood type and Indir ect antib brigid scree n panel - Blood specimen expiration date of blood 2023,2 359 SAMPL E EXPIR ATION 03/23 ,2359 03/20 1:19 PM CDT [facility] Not Available Not Available 12/11/2024 16:17:38 03/20/20 24 03/20/2024 Gluco se [Mass /volu me] in Blood by Autom ated test strip glucose [mass/volume ] in blood by automated test strip 147 mg/dL low: 70mg/d Lhigh: 99mg/d L high GLUCO SE POC 147 (H) 70 - 99 mg/dL 03/20 11:34 AM CDT [facility] Not Available Not Available 12/11/2024 16:17:38 03/20/2003/20/2024 Gluco se [Mass /volu me] in Blood by Autom ated test strip interpretati on and review of laboratory results Abnorm al Not Available Not Available 16:17:38 03/20/2003/20/2024 Eryth rocyt e sedim entat ion rate [[place]] in Red Blood Cells erythrocyte sedimentatio n rate [velocity] in red blood cells 2 text: <20 mm/HR ESR 2 <20 MM/HR 03/20 9:21 AM T [facility] Not Available Not Available 12/11/2024 16:17:38 03/20/20 24 03/20/2024 Proca lcito salena [Mass /volu me] in Serum or Plasm a procalcitoni n [mass/volume ] in serum or plasma text: 0.00 - 0.49 NG/mL Proca lcito salena <0.05 0.00 - 0.49 NG/ML 03/20 12:34 PM CDT [facility] Not Available Not Available 12/11/2024 16:17:38 03/20/20 24 03/20/2024 C react joseph prote in [Mass /volu me] in Serum or Plasm a C reactive protein [mass/volume ] in serum or plasma 0.57 mg/dL high: 0.29mg /dL high C-INGRID CTIVE PROTE IN 0.57 (H) <0.29 mg/dL 03/20 1:25 PM CDT [facility] Not Available Not Available 12/11/2024 16:17:38 03/20/20 24 03/20/2024 C react joseph prote in [Mass /volu me] in Serum or Plasm a interpretati on and review of laboratory results Abnorm al Not Available Not Available 16:17:38 03/20/2003/20/2024 Hemog lobin A1c/H emogl obin. total in Blood hemoglobin A1C/hemoglob in.total in blood 7.2 % high: 5.7% high HGB A1C 7.2 (H) <5.7 % 03/20 11:50 AM CDT [facility] Not Available Not Available 12/11/2024 16:17:38 03/20/20 24 03/20/2024 Hemog lobin A1c/H emogl obin. total in Blood glucose mean value [mass/volume ] in blood estimated from glycated hemoglobin 160 mg/dL ESTIM ATED AVG GLUCO SE 160 mg/dL 03/20 11:50 AM CDT [facility] Not Available Not Available 12/11/2024 16:17:38 03/20/20 24 03/20/2024 Hemog lobin A1c/H emogl obin. total in Blood interpretati on and review of laboratory results Abnorm al Not Available Not Available 16:17:38 03/20/20 24 03/20/2024 Thyro tropi n [Unit s/vol ume] in Serum or Plasm a thyrotropin [units/volum e] in serum or plasma 1.49 text: 0.358 - 3.74 uIU/mL TSH 1.490 0.358 - 3.74 uIU/M L 03/20 8:25 AM CDT [facility] Not Available Not Available 12/11/2024 16:17:38 03/20/20 24 03/20/2024 Basic metab olic 2000 panel - Serum or Plasm a glucose [mass/volume ] in serum or plasma 109 text: 70 - 99 mg/dL high GLUCO SE 109 (H) 70 - 99 MG/DL 03/20 8:25 AM CDT [facility] Not Available Not Available 12/11/2024 16:17:38 03/20/20 24 03/20/2024 Basic metab olic 1999 panel - Serum or Plasm a urea nitrogen [mass/volume ] in serum or plasma 17 text: 7 - 18 mg/dL BUN 17 7 - 18 MG/DL 03/20 8:25 AM CDT [facility] Not Available Not Available 12/11/2024 16:17:38 03/20/20 24 03/20/2024 Basic metab olic 1999 panel - Serum or Plasm a creatinine [mass/volume ] in serum or plasma 0.81 text: 0.7 - 1.3 mg/dL CREAT ININE S/P/B 0.81 0.7 - 1.3 MG/DL 03/20 8:25 AM CDT [facility] Not Available Not Available 12/11/2024 16:17:38 03/20/20 24 03/20/2024 Basic metab olic 1999 panel - Serum or Plasm a sodium [moles/volum e] in serum or plasma 136 text: 136 - 145 mmol/L SODIU M S/P/B 136 136 - 145 MMOL/ L 03/20 8:25 AM CDT [facility] Not Available Not Available 12/11/2024 16:17:38 03/20/20 24 03/20/2024 Basic metab olic 2000 panel - Serum or Plasm a potassium [moles/volum e] in serum or plasma 4.1 text: 3.5 - 5.1 mmol/L POTAS SIUM S/P/B 4.1 3.5 - 5.1 MMOL/ L 03/20 8:25 AM CDT [facility] Not Available Not Available 12/11/2024 16:17:38 03/20/20 24 03/20/2024 Basic metab olic 2000 panel - Serum or Plasm a chloride [moles/volum e] in serum or plasma 101 text: 100 - 108 mmol/L CHLOR SYLVIA S/P/B 101 100 - 108 MMOL/ L 03/20 8:25 AM CDT [facility] Not Available Not Available 12/11/2024 16:17:38 03/20/20 24 03/20/2024 Basic metab olic 2000 panel - Serum or Plasm a carbon dioxide, total [moles/volum e] in serum or plasma 31.8 text: 21 - 32 mmol/L CO2 31.8 21 - 32 MMOL/ L 03/20 8:25 AM CDT [facility] Not Available Not Available 12/11/2024 16:17:38 03/20/20 24 03/20/2024 Basic metab olic 2000 panel - Serum or Plasm a calcium [mass/volume ] in serum or plasma 8.8 text: 8.5 - 10.1 mg/dL CALCI UM S/P/B 8.8 8.5 - 10.1 MG/DL 03/20 8:25 AM CDT [facility] Not Available Not Available 12/11/2024 16:17:38 03/20/20 24 03/20/2024 Basic metab olic 1999 panel - Serum or Plasm a anion gap in serum or plasma by calculation 3.2 text: 5 - 15 mmol/L low ANION GAP 3.2 (L) 5 - 15 MMOL/ L 03/20 8:25 AM CDT [facility] Not Available Not Available 12/11/2024 16:17:38 03/20/20 24 03/20/2024 Basic metab olic 1999 panel - Serum or Plasm a urea nitrogen/cre atinine [mass ratio] in serum or plasma 21 low: 6high: 26 BUN CREAT ININE RATIO 21.0 6 - 26 03/20 8:25 AM CDT [facility] Not Available Not Available 12/11/2024 16:17:38 03/20/20 24 03/20/2024 Basic metab olic 2000 panel - Serum or Plasm a glomerular filtration rate [volume rate/area] in serum, plasma or blood by creatinine-b ased formula (CKD-epi 2020)/1.73 sq M text: >90 mL/min /1.73 M2 GFR ESTIM ATE >90 >90 ML/ND N/1.7 3 M2 03/20 8:25 AM CDT [facility] Not Available Not Available 12/11/2024 16:17:38 03/20/2003/20/2024 Basic metab olic 2000 panel - Serum or Plasm a interpretati on and review of laboratory results Abnorm al Not Available Not Available 16:17:38 03/20/2003/20/2024 CBC W Auto Diffe renti al panel - Blood leukocytes [#/volume] in blood by automated count 6.07 text: 4.5 - 11.0 x10'3/ uL WBC 6.07 4.5 - 11.0 x10'3 /uL 03/20 7:57 AM CDT [facility] Not Available Not Available 12/11/2024 16:17:37 03/20/20 24 03/20/2024 CBC W Auto Diffe renti al panel - Blood erythrocytes [#/volume] in blood by automated count 3.63 text: 4.70 - 6.10 x10'6/ uL low RBC 3.63 (L) 4.70 - 6.10 x10'6 /uL 03/20 7:57 AM CDT [facility] Not Available Not Available 12/11/2024 16:17:37 03/20/20 24 03/20/2024 CBC W Auto Diffe renti al panel - Blood hemoglobin [mass/volume ] in blood 8.1 text: 14.0 - 18.0 g/dL low HGB 8.1 (L) 14.0 - 18.0 G/DL 03/20 7:57 AM CDT [facility] Not Available Not Available 12/11/2024 16:17:37 03/20/20 24 03/20/2024 CBC W Auto Diffe renti al panel - Blood hematocrit [volume fraction] of blood by calculation 29 % low: 43%hig h: 54% low HCT 29.0 (L) 43.0 - 54.0 % 03/20 7:57 AM CDT [facility] Not Available Not Available 12/11/2024 16:17:37 03/20/20 24 03/20/2024 CBC W Auto Diffe renti al panel - Blood MCV [entitic mean volume] in red blood cells 79.9 text: 80.0 - 94.0 fL low MCV 79.9 (L) 80.0 - 94.0 FL 03/20 7:57 AM CDT [facility] Not Available Not Available 12/11/2024 16:17:37 03/20/20 24 03/20/2024 CBC W Auto Diffe renti al panel - Blood MCH [entitic mass] 22.3 pg low: 27pghi gh: 31pg low MCH 22.3 (L) 27.0 - 31.0 PG 03/20 7:57 AM CDT [facility] Not Available Not Available 12/11/2024 16:17:37 03/20/20 24 03/20/2024 CBC W Auto Diffe renti al panel - Blood MCHC [entitic mass/volume] in red blood cells 27.9 text: 32.0 - 36.0 g/dL low MCHC 27.9 (L) 32.0 - 36.0 G/DL 03/20 7:57 AM CDT [facility] Not Available Not Available 12/11/2024 16:17:37 03/20/20 24 03/20/2024 CBC W Auto Diffe renti al panel - Blood RDW 22.8 % low: 11.5%h igh: 14.5% high RDW 22.8 (H) 11.5 - 14.5 % 03/20 7:57 AM T [facility] Not Available Not Available 12/11/2024 16:17:37 03/20/20 24 03/20/2024 CBC W Auto Diffe renti al panel - Blood platelets [#/volume] in blood 281 text: 130 - 400 x10'3/ uL PLT 281 130 - 400 x10'3 /uL 03/20 7:57 AM CDT [facility] Not Available Not Available 12/11/2024 16:17:37 03/20/20 24 03/20/2024 CBC W Auto Diffe renti al panel - Blood platelet [entitic mean volume] in blood 9.9 text: 9.3 - 12.2 fL MPV 9.9 9.3 - 12.2 FL 03/20 7:57 AM CDT [facility] Not Available Not Available 12/11/2024 16:17:37 03/20/20 24 03/20/2024 CBC W Auto Diffe renti al panel - Blood differential cell count method - blood AUTOMA ANIBAL DIFFER ENTIAL DIFFE RENTI AL TYPE AUTOM ATED DIFFE RENTI AL 03/20 8:29 AM CDT [facility] Not Available Not Available 12/11/2024 16:17:37 03/20/20 24 03/20/2024 CBC W Auto Diffe renti al panel - Blood neutrophils/ leukocytes in blood by automated count 64.4 % NEUTR OPHIL S % 64.4 % 03/20 8:29 AM CDT [facility] Not Available Not Available 12/11/2024 16:17:37 03/20/20 24 03/20/2024 CBC W Auto Diffe renti al panel - Blood lymphocytes/ leukocytes in blood by automated count 24.4 % LYMPH OCYTE S % 24.4 % 03/20 8:29 AM CDT [facility] Not Available Not Available 12/11/2024 16:17:37 03/20/20 24 03/20/2024 CBC W Auto Diffe renti al panel - Blood monocytes/le ukocytes in blood by automated count 10.2 % MONOC YTES % 10.2 % 03/20 8:29 AM CDT [facility] Not Available Not Available 12/11/2024 16:17:37 03/20/20 24 03/20/2024 CBC W Auto Diffe renti al panel - Blood eosinophils/ leukocytes in blood by automated count 0.5 % EOSIN OPHIL S 0.5 % 03/20 8:29 AM CDT [facility] Not Available Not Available 12/11/2024 16:17:37 03/20/20 24 03/20/2024 CBC W Auto Diffe renti al panel - Blood basophils/le ukocytes in blood by automated count 0.2 % BASOP HILS 0.2 % 03/20 8:29 AM CDT [facility] Not Available Not Available 12/11/2024 16:17:37 03/20/20 24 03/20/2024 CBC W Auto Diffe renti al panel - Blood immature granulocytes /leukocytes in blood by automated count 0.3 % IMMAT URE GRANS % 0.3 % 03/20 8:29 AM CDT [facility] Not Available Not Available 12/11/2024 16:17:37 03/20/20 24 03/20/2024 CBC W Auto Diffe renti al panel - Blood neutrophils [#/volume] in blood 3.91 text: 1.80 - 7.70 x10'3/ uL ABS. NEUTR OPHIL S 3.91 1.80 - 7.70 x10'3 /uL 03/20 8:29 AM CDT [facility] Not Available Not Available 12/11/2024 16:17:37 03/20/20 24 03/20/2024 CBC W Auto Diffe renti al panel - Blood lymphocytes [#/volume] in blood 1.48 text: 1.00 - 4.80 x10'3/ uL ABS. LYMPH OCYTE S 1.48 1.00 - 4.80 x10'3 /uL 03/20 8:29 AM CDT [facility] Not Available Not Available 12/11/2024 16:17:37 03/20/20 24 03/20/2024 CBC W Auto Diffe renti al panel - Blood monocytes [#/volume] in blood 0.62 text: 0.30 - 0.82 x10'3/ uL ABS. MONOC YTES 0.62 0.30 - 0.82 x10'3 /uL 03/20 8:29 AM CDT [facility] Not Available Not Available 12/11/2024 16:17:37 03/20/20 24 03/20/2024 CBC W Auto Diffe renti al panel - Blood eosinophils [#/volume] in blood 0.03 text: 0.04 - 0.54 x10'3/ uL low ABS. EOSIN OPHIL S 0.03 (L) 0.04 - 0.54 x10'3 /uL 03/20 8:29 AM CDT [facility] Not Available Not Available 12/11/2024 16:17:37 03/20/20 24 03/20/2024 CBC W Auto Diffe renti al panel - Blood basophils [#/volume] in blood 0.01 text: 0.01 - 0.08 x10'3/ uL ABS. BASOP HILS 0.01 0.01 - 0.08 x10'3 /uL 03/20 8:29 AM CDT [facility] Not Available Not Available 12/11/2024 16:17:37 03/20/20 24 03/20/2024 CBC W Auto Diffe renti al panel - Blood immature granulocytes [#/volume] in blood 0.02 text: 0.00 - 0.49 x10'3/ uL ABS. IMMAT URE GRANU LOCYT ES 0.02 0.00 - 0.49 x10'3 /uL 03/20 8:29 AM CDT [facility] Not Available Not Available 12/11/2024 16:17:37 03/20/2003/20/2024 CBC W Auto Diffe renti al panel - Blood erythrocytes [morphology] in blood by automated count SLIDE REVIEW ED RBC MORPH OLOGY SLIDE REVIE WED 03/20 8:29 AM CDT [facility] Not Available Not Available 12/11/2024 16:17:37 03/20/20 24 03/20/2024 CBC W Auto Diffe renti al panel - Blood anisocytosis [presence] in blood 2+ ANISO 2+ 03/20 8:29 AM CDT [facility] Not Available Not Available 12/11/2024 16:17:37 03/20/20 24 03/20/2024 CBC W Auto Diffe renti al panel - Blood poikilocytos is [presence] in blood by automated count 1+ POIKL O 1+ 03/20 8:29 AM CDT [facility] Not Available Not Available 12/11/2024 16:17:37 03/20/20 24 03/20/2024 CBC W Auto Diffe renti al panel - Blood hypochromia [presence] in blood 2+ HYPOC HROMA JAZMYNE 2+ 03/20 8:29 AM CDT [facility] Not Available Not Available 12/11/2024 16:17:37 03/20/20 24 03/20/2024 CBC W Auto Diffe renti al panel - Blood polychromasi a [presence] in blood by light microscopy 1+ POLY 1+ 03/20 8:29 AM CDT [facility] Not Available Not Available 12/11/2024 16:17:37 03/20/20 24 03/20/2024 CBC W Auto Diffe renti al panel - Blood schisto 1+ SCHIS TO 1+ 03/20 8:29 AM CDT [facility] Not Available Not Available 12/11/2024 16:17:37 03/20/20 24 03/20/2024 CBC W Auto Diffe renti al panel - Blood platelets [#/volume] in blood by automated count ADEQUA TE PLT EST. ADEQU ATE 03/20 8:29 AM CDT [facility] Not Available Not Available 12/11/2024 16:17:37 03/20/20 24 03/20/2024 CBC W Auto Diffe renti al panel - Blood interpretati on and review of laboratory results Abnorm al Not Available Not Available 16:17:37 03/20/20 24 03/20/2024 Gluco se [Mass /volu me] in Blood by Autom ated test strip glucose [mass/volume ] in blood by automated test strip 201 mg/dL low: 70mg/d Lhigh: 99mg/d L high GLUCO SE POC 201 (H) 70 - 99 mg/dL 03/20 6:41 AM CDT [facility] Not Available Not Available 12/11/2024 16:17:37 03/20/20 24 03/20/2024 Gluco se [Mass /volu me] in Blood by Autom ated test strip interpretati on and review of laboratory results Abnorm al Not Available Not Available 16:17:37 03/21/20 24 03/21/2024 Gluco se [Mass /volu me] in Blood by Autom ated test strip glucose [mass/volume ] in blood by automated test strip 112 mg/dL low: 70mg/d Lhigh: 99mg/d L high GLUCO SE POC 112 (H) 70 - 99 mg/dL 03/21 9:15 PM CDT [facility] Not Available Not Available 12/11/2024 16:17:39 03/21/20 24 03/21/2024 Gluco se [Mass /volu me] in Blood by Autom ated test strip interpretati on and review of laboratory results Abnorm al Not Available Not Available 16:17:39 03/21/20 24 03/21/2024 Gluco se [Mass /volu me] in Blood by Autom ated test strip glucose [mass/volume ] in blood by automated test strip 325 mg/dL low: 70mg/d Lhigh: 99mg/d L high GLUCO SE POC 325 (H) 70 - 99 mg/dL 03/21 5:09 PM CDT [facility] Not Available Not Available 12/11/2024 16:17:39 03/21/20 24 03/21/2024 Gluco se [Mass /volu me] in Blood by Autom ated test strip interpretati on and review of laboratory results Abnorm al Not Available Not Available 16:17:39 03/21/20 24 03/21/2024 Gluco se [Mass /volu me] in Blood by Autom ated test strip glucose [mass/volume ] in blood by automated test strip 349 mg/dL low: 70mg/d Lhigh: 99mg/d L high GLUCO SE POC 349 (H) 70 - 99 mg/dL 03/21 3:56 PM CDT [facility] Not Available Not Available 12/11/2024 16:17:39 03/21/20 24 03/21/2024 Gluco se [Mass /volu me] in Blood by Autom ated test strip interpretati on and review of laboratory results Abnorm al Not Available Not Available 16:17:39 03/21/20 24 03/21/2024 Gluco se [Mass /volu me] in Blood by Autom ated test strip glucose [mass/volume ] in blood by automated test strip 153 mg/dL low: 70mg/d Lhigh: 99mg/d L high GLUCO SE POC 153 (H) 70 - 99 mg/dL 03/21 11:45 AM CDT [facility] Not Available Not Available 12/11/2024 16:17:39 03/21/20 24 03/21/2024 Gluco se [Mass /volu me] in Blood by Autom ated test strip interpretati on and review of laboratory results Abnorm al Not Available Not Available 16:17:39 03/21/20 24 03/21/2024 Gluco se [Mass /volu me] in Blood by Autom ated test strip glucose [mass/volume ] in blood by automated test strip 138 mg/dL low: 70mg/d Lhigh: 99mg/d L high GLUCO SE POC 138 (H) 70 - 99 mg/dL 03/21 6:43 AM CDT [facility] Not Available Not Available 12/11/2024 16:17:39 03/21/20 24 03/21/2024 Gluco se [Mass /volu me] in Blood by Autom ated test strip interpretati on and review of laboratory results Abnorm al Not Available Not Available 16:17:39 03/21/20 24 03/21/2024 Basic metab olic 1999 panel - Serum or Plasm a glucose [mass/volume ] in serum or plasma 159 text: 70 - 99 mg/dL high GLUCO SE 159 (H) 70 - 99 MG/DL 03/21 5:22 AM CDT [facility] Not Available Not Available 12/11/2024 16:17:39 03/21/20 24 03/21/2024 Basic metab olic 1999 panel - Serum or Plasm a urea nitrogen [mass/volume ] in serum or plasma 18 text: 7 - 18 mg/dL BUN 18 7 - 18 MG/DL 03/21 5:22 AM CDT [facility] Not Available Not Available 12/11/2024 16:17:39 03/21/20 24 03/21/2024 Basic metab olic 1999 panel - Serum or Plasm a creatinine [mass/volume ] in serum or plasma 0.89 text: 0.7 - 1.3 mg/dL CREAT ININE S/P/B 0.89 0.7 - 1.3 MG/DL 03/21 5:22 AM CDT [facility] Not Available Not Available 12/11/2024 16:17:39 03/21/20 24 03/21/2024 Basic metab olic 1999 panel - Serum or Plasm a sodium [moles/volum e] in serum or plasma 137 text: 136 - 145 mmol/L SODIU M S/P/B 137 136 - 145 MMOL/ L 03/21 5:22 AM CDT [facility] Not Available Not Available 12/11/2024 16:17:39 03/21/20 24 03/21/2024 Basic metab olic 1999 panel - Serum or Plasm a potassium [moles/volum e] in serum or plasma 3.9 text: 3.5 - 5.1 mmol/L POTAS SIUM S/P/B 3.9 3.5 - 5.1 MMOL/ L 03/21 5:22 AM CDT [facility] Not Available Not Available 12/11/2024 16:17:39 03/21/20 24 03/21/2024 Basic metab olic 1999 panel - Serum or Plasm a chloride [moles/volum e] in serum or plasma 102 text: 100 - 108 mmol/L CHLOR SYLVIA S/P/B 102 100 - 108 MMOL/ L 03/21 5:22 AM CDT [facility] Not Available Not Available 12/11/2024 16:17:39 03/21/20 24 03/21/2024 Basic metab olic 1999 panel - Serum or Plasm a carbon dioxide, total [moles/volum e] in serum or plasma 33.1 text: 21 - 32 mmol/L high CO2 33.1 (H) 21 - 32 MMOL/ L 03/21 5:22 AM CDT [facility] Not Available Not Available 12/11/2024 16:17:39 03/21/20 24 03/21/2024 Basic metab olic 1999 panel - Serum or Plasm a calcium [mass/volume ] in serum or plasma 8 text: 8.5 - 10.1 mg/dL low CALCI UM S/P/B 8.0 (L) 8.5 - 10.1 MG/DL 03/21 5:22 AM CDT [facility] Not Available Not Available 12/11/2024 16:17:39 03/21/20 24 03/21/2024 Basic metab olic 1999 panel - Serum or Plasm a anion gap in serum or plasma by calculation 1.9 text: 5 - 15 mmol/L low ANION GAP 1.9 (L) 5 - 15 MMOL/ L 03/21 5:22 AM CDT [facility] Not Available Not Available 12/11/2024 16:17:39 03/21/20 24 03/21/2024 Basic metab olic 2000 panel - Serum or Plasm a urea nitrogen/cre atinine [mass ratio] in serum or plasma 20.2 low: 6high: 26 BUN CREAT ININE RATIO 20.2 6 - 26 03/21 5:22 AM CDT [facility] Not Available Not Available 12/11/2024 16:17:39 03/21/20 24 03/21/2024 Basic metab olic 2000 panel - Serum or Plasm a glomerular filtration rate [volume rate/area] in serum, plasma or blood by creatinine-b ased formula (CKD-epi 2020)/1.73 sq M text: >90 mL/min /1.73 M2 GFR ESTIM ATE >90 >90 ML/ND N/1.7 3 M2 03/21 5:22 AM CDT [facility] Not Available Not Available 12/11/2024 16:17:39 03/21/20 24 03/21/2024 Basic metab olic 2000 panel - Serum or Plasm a interpretati on and review of laboratory results Abnorm al Not Available Not Available 16:17:39 03/21/20 24 03/21/2024 CBC W Auto Diffe renti al panel - Blood leukocytes [#/volume] in blood by automated count 5.34 text: 4.5 - 11.0 x10'3/ uL WBC 5.34 4.5 - 11.0 x10'3 /uL 03/21 5:08 AM CDT [facility] Not Available Not Available 12/11/2024 16:17:38 03/21/20 24 03/21/2024 CBC W Auto Diffe renti al panel - Blood erythrocytes [#/volume] in blood by automated count 3.39 text: 4.70 - 6.10 x10'6/ uL low RBC 3.39 (L) 4.70 - 6.10 x10'6 /uL 03/21 5:08 AM CDT [facility] Not Available Not Available 12/11/2024 16:17:38 03/21/20 24 03/21/2024 CBC W Auto Diffe renti al panel - Blood hemoglobin [mass/volume ] in blood 7.4 text: 14.0 - 18.0 g/dL low HGB 7.4 (L) 14.0 - 18.0 G/DL 03/21 5:08 AM CDT [facility] Not Available Not Available 12/11/2024 16:17:38 03/21/20 24 03/21/2024 CBC W Auto Diffe renti al panel - Blood hematocrit [volume fraction] of blood by calculation 26.4 % low: 43%hig h: 54% low HCT 26.4 (L) 43.0 - 54.0 % 03/21 5:08 AM CDT [facility] Not Available Not Available 12/11/2024 16:17:38 03/21/20 24 03/21/2024 CBC W Auto Diffe marisolti al panel - Blood MCV [entitic mean volume] in red blood cells 77.9 text: 80.0 - 94.0 fL low MCV 77.9 (L) 80.0 - 94.0 FL 03/21 5:08 AM CDT [facility] Not Available Not Available 12/11/2024 16:17:38 03/21/20 24 03/21/2024 CBC W Auto Diffe marisolti al panel - Blood MCH [entitic mass] 21.8 pg low: 27pghi gh: 31pg low MCH 21.8 (L) 27.0 - 31.0 PG 03/21 5:08 AM CDT [facility] Not Available Not Available 12/11/2024 16:17:38 03/21/20 24 03/21/2024 CBC W Auto Diffe renti al panel - Blood MCHC [entitic mass/volume] in red blood cells 28 text: 32.0 - 36.0 g/dL low MCHC 28.0 (L) 32.0 - 36.0 G/DL 03/21 5:08 AM CDT [facility] Not Available Not Available 12/11/2024 16:17:38 03/21/20 24 03/21/2024 CBC W Auto Diffe renti al panel - Blood RDW 23 % low: 11.5%h igh: 14.5% high RDW 23.0 (H) 11.5 - 14.5 % 03/21 5:08 AM CDT [facility] Not Available Not Available 12/11/2024 16:17:38 03/21/20 24 03/21/2024 CBC W Auto Diffe renti al panel - Blood platelets [#/volume] in blood 254 text: 130 - 400 x10'3/ uL PLT 254 130 - 400 x10'3 /uL 03/21 5:08 AM CDT [facility] Not Available Not Available 12/11/2024 16:17:38 03/21/20 24 03/21/2024 CBC W Auto Diffe renti al panel - Blood platelet [entitic mean volume] in blood 9.5 text: 9.3 - 12.2 fL MPV 9.5 9.3 - 12.2 FL 03/21 5:08 AM CDT [facility] Not Available Not Available 12/11/2024 16:17:38 03/21/20 24 03/21/2024 CBC W Auto Diffe renti al panel - Blood differential cell count method - blood AUTOMA ANIBAL DIFFER ENTIAL DIFFE RENTI AL TYPE AUTOM ATED DIFFE RENTI AL 03/21 5:34 AM CDT [facility] Not Available Not Available 12/11/2024 16:17:38 03/21/20 24 03/21/2024 CBC W Auto Diffe renti al panel - Blood neutrophils/ leukocytes in blood by automated count 68.1 % NEUTR OPHIL S % 68.1 % 03/21 5:34 AM CDT [facility] Not Available Not Available 12/11/2024 16:17:38 03/21/20 24 03/21/2024 CBC W Auto Diffe renti al panel - Blood lymphocytes/ leukocytes in blood by automated count 21.5 % LYMPH OCYTE S % 21.5 % 03/21 5:34 AM CDT [facility] Not Available Not Available 12/11/2024 16:17:38 03/21/20 24 03/21/2024 CBC W Auto Diffe renti al panel - Blood monocytes/le ukocytes in blood by automated count 9 % MONOC YTES % 9.0 % 03/21 5:34 AM CDT [facility] Not Available Not Available 12/11/2024 16:17:38 03/21/20 24 03/21/2024 CBC W Auto Diffe renti al panel - Blood eosinophils/ leukocytes in blood by automated count 0.6 % EOSIN OPHIL S 0.6 % 03/21 5:34 AM CDT [facility] Not Available Not Available 12/11/2024 16:17:38 03/21/20 24 03/21/2024 CBC W Auto Diffe renti al panel - Blood basophils/le ukocytes in blood by automated count 0.2 % BASOP HILS 0.2 % 03/21 5:34 AM CDT [facility] Not Available Not Available 12/11/2024 16:17:38 03/21/20 24 03/21/2024 CBC W Auto Diffe renti al panel - Blood immature granulocytes /leukocytes in blood by automated count 0.6 % IMMAT URE GRANS % 0.6 % 03/21 5:34 AM CDT [facility] Not Available Not Available 12/11/2024 16:17:38 03/21/20 24 03/21/2024 CBC W Auto Diffe renti al panel - Blood neutrophils [#/volume] in blood 3.64 text: 1.80 - 7.70 x10'3/ uL ABS. NEUTR OPHIL S 3.64 1.80 - 7.70 x10'3 /uL 03/21 5:34 AM CDT [facility] Not Available Not Available 12/11/2024 16:17:38 03/21/20 24 03/21/2024 CBC W Auto Diffe renti al panel - Blood lymphocytes [#/volume] in blood 1.15 text: 1.00 - 4.80 x10'3/ uL ABS. LYMPH OCYTE S 1.15 1.00 - 4.80 x10'3 /uL 03/21 5:34 AM CDT [facility] Not Available Not Available 12/11/2024 16:17:38 03/21/20 24 03/21/2024 CBC W Auto Diffe renti al panel - Blood monocytes [#/volume] in blood 0.48 text: 0.30 - 0.82 x10'3/ uL ABS. MONOC YTES 0.48 0.30 - 0.82 x10'3 /uL 03/21 5:34 AM CDT [facility] Not Available Not Available 12/11/2024 16:17:38 03/21/20 24 03/21/2024 CBC W Auto Diffe renti al panel - Blood eosinophils [#/volume] in blood 0.03 text: 0.04 - 0.54 x10'3/ uL low ABS. EOSIN OPHIL S 0.03 (L) 0.04 - 0.54 x10'3 /uL 03/21 5:34 AM CDT [facility] Not Available Not Available 12/11/2024 16:17:38 03/21/20 24 03/21/2024 CBC W Auto Diffe renti al panel - Blood basophils [#/volume] in blood 0.01 text: 0.01 - 0.08 x10'3/ uL ABS. BASOP HILS 0.01 0.01 - 0.08 x10'3 /uL 03/21 5:34 AM CDT [facility] Not Available Not Available 12/11/2024 16:17:38 03/21/20 24 03/21/2024 CBC W Auto Diffe renti al panel - Blood immature granulocytes [#/volume] in blood 0.03 text: 0.00 - 0.49 x10'3/ uL ABS. IMMAT URE GRANU LOCYT ES 0.03 0.00 - 0.49 x10'3 /uL 03/21 5:34 AM CDT [facility] Not Available Not Available 12/11/2024 16:17:38 03/21/20 24 03/21/2024 CBC W Auto Diffe renti al panel - Blood erythrocytes [morphology] in blood by automated count SLIDE REVIEW ED RBC MORPH OLOGY SLIDE REVIE WED 03/21 5:34 AM CDT [facility] Not Available Not Available 12/11/2024 16:17:38 03/21/20 24 03/21/2024 CBC W Auto Diffe renti al panel - Blood anisocytosis [presence] in blood 2+ ANISO 2+ 03/21 5:34 AM CDT [facility] Not Available Not Available 12/11/2024 16:17:38 03/21/20 24 03/21/2024 CBC W Auto Diffe renti al panel - Blood poikilocytos is [presence] in blood by automated count 2+ POIKL O 2+ 03/21 5:34 AM CDT [facility] Not Available Not Available 12/11/2024 16:17:38 03/21/20 24 03/21/2024 CBC W Auto Diffe renti al panel - Blood hypochromia [presence] in blood 2+ HYPOC HROMA JAZMYNE 2+ 03/21 5:34 AM CDT [facility] Not Available Not Available 12/11/2024 16:17:38 03/21/20 24 03/21/2024 CBC W Auto Diffe renti al panel - Blood polychromasi a [presence] in blood by light microscopy 1+ POLY 1+ 03/21 5:34 AM CDT [facility] Not Available Not Available 12/11/2024 16:17:38 03/21/20 24 03/21/2024 CBC W Auto Diffe renti al panel - Blood platelets [#/volume] in blood by automated count ADEQUA TE PLT EST. ADEQU ATE 03/21 5:34 AM CDT [facility] Not Available Not Available 12/11/2024 16:17:38 03/21/20 24 03/21/2024 CBC W Auto Diffe renti al panel - Blood interpretati on and review of laboratory results Abnorm al Not Available Not Available 16:17:38 03/22/20 24 03/22/2024 Gluco se [Mass /volu me] in Blood by Autom ated test strip glucose [mass/volume ] in blood by automated test strip 114 mg/dL low: 70mg/d Lhigh: 99mg/d L high GLUCO SE POC 114 (H) 70 - 99 mg/dL 03/22 7:33 PM CDT [facility] Not Available Not Available 12/11/2024 16:17:40 03/22/20 24 03/22/2024 Gluco se [Mass /volu me] in Blood by Autom ated test strip interpretati on and review of laboratory results Abnorm al Not Available Not Available 16:17:40 03/22/20 24 03/22/2024 Gluco se [Mass /volu me] in Blood by Autom ated test strip glucose [mass/volume ] in blood by automated test strip 328 mg/dL low: 70mg/d Lhigh: 99mg/d L high GLUCO SE POC 328 (H) 70 - 99 mg/dL 03/22 4:35 PM CDT [facility] Not Available Not Available 12/11/2024 16:17:40 03/22/20 24 03/22/2024 Gluco se [Mass /volu me] in Blood by Autom ated test strip interpretati on and review of laboratory results Abnorm al Not Available Not Available 16:17:40 03/22/20 24 03/22/2024 CBC W Auto Diffe renti al panel - Blood leukocytes [#/volume] in blood by automated count 6.16 text: 4.5 - 11.0 x10'3/ uL WBC 6.16 4.5 - 11.0 x10'3 /uL 03/22 1:41 PM CDT [facility] Not Available Not Available 12/11/2024 16:17:40 03/22/20 24 03/22/2024 CBC W Auto Diffe renti al panel - Blood erythrocytes [#/volume] in blood by automated count 3.35 text: 4.70 - 6.10 x10'6/ uL low RBC 3.35 (L) 4.70 - 6.10 x10'6 /uL 03/22 1:41 PM CDT [facility] Not Available Not Available 12/11/2024 16:17:40 03/22/20 24 03/22/2024 CBC W Auto Diffe renti al panel - Blood hemoglobin [mass/volume ] in blood 7.4 text: 14.0 - 18.0 g/dL low HGB 7.4 (L) 14.0 - 18.0 G/DL 03/22 1:41 PM CDT [facility] Not Available Not Available 12/11/2024 16:17:40 03/22/20 24 03/22/2024 CBC W Auto Diffe renti al panel - Blood hematocrit [volume fraction] of blood by calculation 26.8 % low: 43%hig h: 54% low HCT 26.8 (L) 43.0 - 54.0 % 03/22 1:41 PM CDT [facility] Not Available Not Available 12/11/2024 16:17:40 03/22/20 24 03/22/2024 CBC W Auto Diffe renti al panel - Blood MCV [entitic mean volume] in red blood cells 80 text: 80.0 - 94.0 fL MCV 80.0 80.0 - 94.0 FL 03/22 1:41 PM CDT [facility] Not Available Not Available 12/11/2024 16:17:40 03/22/20 24 03/22/2024 CBC W Auto Diffe renti al panel - Blood MCH [entitic mass] 22.1 pg low: 27pghi gh: 31pg low MCH 22.1 (L) 27.0 - 31.0 PG 03/22 1:41 PM CDT [facility] Not Available Not Available 12/11/2024 16:17:40 03/22/20 24 03/22/2024 CBC W Auto Diffe renti al panel - Blood MCHC [entitic mass/volume] in red blood cells 27.6 text: 32.0 - 36.0 g/dL low MCHC 27.6 (L) 32.0 - 36.0 G/DL 03/22 1:41 PM CDT [facility] Not Available Not Available 12/11/2024 16:17:40 03/22/20 24 03/22/2024 CBC W Auto Diffe renti al panel - Blood RDW 23.2 % low: 11.5%h igh: 14.5% high RDW 23.2 (H) 11.5 - 14.5 % 03/22 1:41 PM CDT [facility] Not Available Not Available 12/11/2024 16:17:40 03/22/20 24 03/22/2024 CBC W Auto Diffe renti al panel - Blood platelets [#/volume] in blood 248 text: 130 - 400 x10'3/ uL PLT 248 130 - 400 x10'3 /uL 03/22 1:41 PM CDT [facility] Not Available Not Available 12/11/2024 16:17:40 03/22/20 24 03/22/2024 CBC W Auto Diffe renti al panel - Blood platelet [entitic mean volume] in blood 10.3 text: 9.3 - 12.2 fL MPV 10.3 9.3 - 12.2 FL 03/22 1:41 PM CDT [facility] Not Available Not Available 12/11/2024 16:17:40 03/22/20 24 03/22/2024 CBC W Auto Diffe renti al panel - Blood differential cell count method - blood MANUAL DIFFER ENTIAL DIFFE RENTI AL TYPE VANI L DIFFE ROSE AL 03/22 2:30 PM CDT [facility] Not Available Not Available 12/11/2024 16:17:40 03/22/20 24 03/22/2024 CBC W Auto Diffe renti al panel - Blood segmented neutrophils/ leukocytes in blood by manual count 76 % SEG NEUTR OPHIL S 76 % 03/22 2:30 PM CDT [facility] Not Available Not Available 12/11/2024 16:17:40 03/22/20 24 03/22/2024 CBC W Auto Diffe renti al panel - Blood lymphocytes/ leukocytes in blood by manual count 19 % LYMPH OCYTE S 19 % 03/22 2:30 PM CDT [facility] Not Available Not Available 12/11/2024 16:17:40 03/22/20 24 03/22/2024 CBC W Auto Diffe renti al panel - Blood monocytes/le ukocytes in blood by manual count 2 % MONOC YTES 2 % 03/22 2:30 PM CDT [facility] Not Available Not Available 12/11/2024 16:17:40 03/22/20 24 03/22/2024 CBC W Auto Diffe renti al panel - Blood band form neutrophils/ leukocytes in blood by manual count 1 % BANDS 1 % 03/22 2:30 PM CDT [facility] Not Available Not Available 12/11/2024 16:17:40 03/22/20 24 03/22/2024 CBC W Auto Diffe renti al panel - Blood myelocytes [#/volume] in blood by manual count 2 % MYELO CYTES 2 % 03/22 2:30 PM CDT [facility] Not Available Not Available 12/11/2024 16:17:40 03/22/20 24 03/22/2024 CBC W Auto Diffe renti al panel - Blood neutrophils [#/volume] in blood 4.74 text: 1.80 - 7.70 x10'3/ uL ABS. NEUTR OPHIL S 4.74 1.80 - 7.70 x10'3 /uL 03/22 2:30 PM CDT [facility] Not Available Not Available 12/11/2024 16:17:40 03/22/20 24 03/22/2024 CBC W Auto Diffe renti al panel - Blood lymphocytes [#/volume] in blood 1.17 text: 1.00 - 4.80 x10'3/ uL ABS. LYMPH OCYTE S 1.17 1.00 - 4.80 x10'3 /uL 03/22 2:30 PM CDT [facility] Not Available Not Available 12/11/2024 16:17:40 03/22/2003/22/2024 CBC W Auto Diffe renti al panel - Blood monocytes [#/volume] in blood 0.12 text: 0.30 - 0.82 x10'3/ uL low ABS. MONOC YTES 0.12 (L) 0.30 - 0.82 x10'3 /uL 03/22 2:30 PM CDT [facility] Not Available Not Available 12/11/2024 16:17:40 03/22/20 24 03/22/2024 CBC W Auto Diffe renti al panel - Blood myelocytes [#/volume] in blood by manual count 0.12 text: 0.00 x10'3/ uL high ABS. MYELO CYTES 0.12 (H) 0.00 x10'3 /uL 03/22 2:30 PM CDT [facility] Not Available Not Available 12/11/2024 16:17:40 03/22/20 24 03/22/2024 CBC W Auto Diffe renti al panel - Blood erythrocytes [morphology] in blood by automated count SLIDE REVIEW ED RBC MORPH OLOGY SLIDE REVIE WED 03/22 2:30 PM CDT [facility] Not Available Not Available 12/11/2024 16:17:40 03/22/20 24 03/22/2024 CBC W Auto Diffe renti al panel - Blood anisocytosis [presence] in blood 1+ ANISO 1+ 03/22 2:30 PM CDT [facility] Not Available Not Available 12/11/2024 16:17:40 03/22/20 24 03/22/2024 CBC W Auto Diffe renti al panel - Blood poikilocytos is [presence] in blood by automated count 1+ POIKL O 1+ 03/22 2:30 PM CDT [facility] Not Available Not Available 12/11/2024 16:17:40 03/22/20 24 03/22/2024 CBC W Auto Diffe renti al panel - Blood hypochromia [presence] in blood 1+ HYPOC HROMA JAZMYNE 1+ 03/22 2:30 PM CDT [facility] Not Available Not Available 12/11/2024 16:17:40 03/22/20 24 03/22/2024 CBC W Auto Diffe renti al panel - Blood microcytes [presence] in blood 1+ MICRO 1+ 03/22 2:30 PM CDT [facility] Not Available Not Available 12/11/2024 16:17:40 03/22/20 24 03/22/2024 CBC W Auto Diffe renti al panel - Blood polychromasi a [presence] in blood by light microscopy 1+ POLY 1+ 03/22 2:30 PM CDT [facility] Not Available Not Available 12/11/2024 16:17:40 03/22/20 24 03/22/2024 CBC W Auto Diffe renti al panel - Blood acanthocytes [presence] in blood by light microscopy 1+ ACANT HOCYT ES 1+ 03/22 2:30 PM CDT [facility] Not Available Not Available 12/11/2024 16:17:40 03/22/20 24 03/22/2024 CBC W Auto Diffe renti al panel - Blood platelets [#/volume] in blood by automated count ADEQUA TE PLT EST. ADEQU ATE 03/22 2:30 PM CDT [facility] Not Available Not Available 12/11/2024 16:17:40 03/22/20 24 03/22/2024 CBC W Auto Diffe renti al panel - Blood interpretati on and review of laboratory results Abnorm al Not Available Not Available 16:17:40 03/22/20 24 03/22/2024 Blood type and Indir ect antib brigid scree n panel - Blood ABO and Rh group panel - blood O POSITI VE ABO/R H O POSIT JOSEPH 03/22 1:58 PM CDT [facility] Not Available Not Available 12/11/2024 16:17:40 03/22/20 24 03/22/2024 Blood type and Indir ect antib brigid scree n panel - Blood blood group antibody screen [presence] in serum or plasma NEGATI VE ANTIB BRIGID SCREE N NEGAT JOSEPH 03/22 1:58 PM CDT [facility] Not Available Not Available 12/11/2024 16:17:40 03/22/20 24 03/22/2024 Blood type and Indir ect antib brigid scree n panel - Blood specimen expiration date of blood 2023,2 359 SAMPL E EXPIR ATION 03/25 ,2359 03/22 1:58 PM CDT [facility] Not Available Not Available 12/11/2024 16:17:40 03/22/20 24 03/23/2024 Methi cilli n resis tant Staph yloco ccus aureu s [Pres ence] in Speci men by Organ ism speci fic cultu re specimen source identified NASAL SPEC DESCR IPTIO N NASAL 03/22 11:51 AM CDT [facility] Not Available Not Available 12/11/2024 16:17:40 03/22/20 24 03/23/2024 Methi cilli n resis tant Staph yloco ccus aureu s [Pres ence] in Speci men by Organ is speci fic cultu re service comment NO SPECIA L REQUES T SPECI AL REQUE STS NO SPECI AL REQUE ST 03/22 11:51 AM CDT [facility] Not Available Not Available 12/11/2024 16:17:40 03/22/20 24 03/23/2024 Methi cilli n resis tant Staph yloco ccus aureu s [Pres ence] in Speci men by Organ ism speci fic cultu re bacteria identified in specimen by culture NO METHIC ILLIN RESIST ANT STAPHY LOCOCC US AUREUS ISOLAT ED CULTU RE RESUL T NO METHI CILLI N RESIS TANT STAPH YLOCO CCUS AUREU S ISOLA ANIBAL 03/23 3:25 PM CDT [facility] Not Available Not Available 12/11/2024 16:17:40 03/22/20 24 03/22/2024 Gluco se [Mass /volu me] in Blood by Autom ated test strip glucose [mass/volume ] in blood by automated test strip 172 mg/dL low: 70mg/d Lhigh: 99mg/d L high GLUCO SE POC 172 (H) 70 - 99 mg/dL 03/22 11:33 AM CDT [facility] Not Available Not Available 12/11/2024 16:17:39 03/22/20 24 03/22/2024 Gluco se [Mass /volu me] in Blood by Autom ated test strip interpretati on and review of laboratory results Abnorm al Not Available Not Available 16:17:39 03/22/20 24 03/22/2024 Gluco se [Mass /volu me] in Blood by Autom ated test strip glucose [mass/volume ] in blood by automated test strip 182 mg/dL low: 70mg/d Lhigh: 99mg/d L high GLUCO SE POC 182 (H) 70 - 99 mg/dL 03/22 6:56 AM CDT [facility] Not Available Not Available 12/11/2024 16:17:39 03/22/20 24 03/22/2024 Gluco se [Mass /volu me] in Blood by Autom ated test strip interpretati on and review of laboratory results Abnorm al Not Available Not Available 16:17:39 03/22/20 24 03/22/2024 CBC W Auto Diffe renti al panel - Blood leukocytes [#/volume] in blood by automated count 6.19 text: 4.5 - 11.0 x10'3/ uL WBC 6.19 4.5 - 11.0 x10'3 /uL 03/22 4:52 AM CDT [facility] Not Available Not Available 12/11/2024 16:17:39 03/22/20 24 03/22/2024 CBC W Auto Diffe renti al panel - Blood erythrocytes [#/volume] in blood by automated count 3.21 text: 4.70 - 6.10 x10'6/ uL low RBC 3.21 (L) 4.70 - 6.10 x10'6 /uL 03/22 4:52 AM CDT [facility] Not Available Not Available 12/11/2024 16:17:39 03/22/20 24 03/22/2024 CBC W Auto Diffe renti al panel - Blood hemoglobin [mass/volume ] in blood 7 text: 14.0 - 18.0 g/dL low HGB 7.0 (L) 14.0 - 18.0 G/DL 03/22 4:52 AM CDT [facility] Not Available Not Available 12/11/2024 16:17:39 03/22/20 24 03/22/2024 CBC W Auto Diffe renti al panel - Blood hematocrit [volume fraction] of blood by calculation 25 % low: 43%hig h: 54% low HCT 25.0 (L) 43.0 - 54.0 % 03/22 4:52 AM CDT [facility] Not Available Not Available 12/11/2024 16:17:39 03/22/20 24 03/22/2024 CBC W Auto Diffe renti al panel - Blood MCV [entitic mean volume] in red blood cells 77.9 text: 80.0 - 94.0 fL low MCV 77.9 (L) 80.0 - 94.0 FL 03/22 4:52 AM CDT [facility] Not Available Not Available 12/11/2024 16:17:39 03/22/20 24 03/22/2024 CBC W Auto Diffe renti al panel - Blood MCH [entitic mass] 21.8 pg low: 27pghi gh: 31pg low MCH 21.8 (L) 27.0 - 31.0 PG 03/22 4:52 AM CDT [facility] Not Available Not Available 12/11/2024 16:17:39 03/22/20 24 03/22/2024 CBC W Auto Diffe renti al panel - Blood MCHC [entitic mass/volume] in red blood cells 28 text: 32.0 - 36.0 g/dL low MCHC 28.0 (L) 32.0 - 36.0 G/DL 03/22 4:52 AM CDT [facility] Not Available Not Available 12/11/2024 16:17:39 03/22/20 24 03/22/2024 CBC W Auto Diffe renti al panel - Blood RDW 22.8 % low: 11.5%h igh: 14.5% high RDW 22.8 (H) 11.5 - 14.5 % 03/22 4:52 AM CDT [facility] Not Available Not Available 12/11/2024 16:17:39 03/22/20 24 03/22/2024 CBC W Auto Diffe renti al panel - Blood platelets [#/volume] in blood 240 text: 130 - 400 x10'3/ uL PLT 240 130 - 400 x10'3 /uL 03/22 4:52 AM CDT [facility] Not Available Not Available 12/11/2024 16:17:39 03/22/20 24 03/22/2024 CBC W Auto Diffe renti al panel - Blood platelet [entitic mean volume] in blood 9.9 text: 9.3 - 12.2 fL MPV 9.9 9.3 - 12.2 FL 03/22 4:52 AM CDT [facility] Not Available Not Available 12/11/2024 16:17:39 03/22/20 24 03/22/2024 CBC W Auto Diffe renti al panel - Blood differential cell count method - blood MANUAL DIFFER ENTIAL DIFFE RENTI AL TYPE MANUA L DIFFE RENTI AL 03/22 5:34 AM CDT [facility] Not Available Not Available 12/11/2024 16:17:39 03/22/20 24 03/22/2024 CBC W Auto Diffe renti al panel - Blood segmented neutrophils/ leukocytes in blood by manual count 77 % SEG NEUTR OPHIL S 77 % 03/22 5:34 AM CDT [facility] Not Available Not Available 12/11/2024 16:17:39 03/22/20 24 03/22/2024 CBC W Auto Diffe renti al panel - Blood lymphocytes/ leukocytes in blood by manual count 14 % LYMPH OCYTE S 14 % 03/22 5:34 AM CDT [facility] Not Available Not Available 12/11/2024 16:17:39 03/22/20 24 03/22/2024 CBC W Auto Diffe renti al panel - Blood monocytes/le ukocytes in blood by manual count 6 % MONOC YTES 6 % 03/22 5:34 AM CDT [facility] Not Available Not Available 12/11/2024 16:17:39 03/22/20 24 03/22/2024 CBC W Auto Diffe renti al panel - Blood eosinophils/ leukocytes in blood by manual count 1 % EOSIN OPHIL S 1 % 03/22 5:34 AM CDT [facility] Not Available Not Available 12/11/2024 16:17:39 03/22/20 24 03/22/2024 CBC W Auto Diffe renti al panel - Blood basophils/le ukocytes in blood 2 % BASOP HILS 2 % 03/22 5:34 AM CDT [facility] Not Available Not Available 12/11/2024 16:17:39 03/22/20 24 03/22/2024 CBC W Auto Diffe renti al panel - Blood neutrophils [#/volume] in blood 4.77 text: 1.80 - 7.70 x10'3/ uL ABS. NEUTR OPHIL S 4.77 1.80 - 7.70 x10'3 /uL 03/22 5:34 AM CDT [facility] Not Available Not Available 12/11/2024 16:17:39 03/22/20 24 03/22/2024 CBC W Auto Diffe renti al panel - Blood lymphocytes [#/volume] in blood 0.87 text: 1.00 - 4.80 x10'3/ uL low ABS. LYMPH OCYTE S 0.87 (L) 1.00 - 4.80 x10'3 /uL 03/22 5:34 AM CDT [facility] Not Available Not Available 12/11/2024 16:17:39 03/22/20 24 03/22/2024 CBC W Auto Diffe renti al panel - Blood monocytes [#/volume] in blood 0.37 text: 0.30 - 0.82 x10'3/ uL ABS. MONOC YTES 0.37 0.30 - 0.82 x10'3 /uL 03/22 5:34 AM CDT [facility] Not Available Not Available 12/11/2024 16:17:39 03/22/20 24 03/22/2024 CBC W Auto Diffe renti al panel - Blood eosinophils [#/volume] in blood 0.06 text: 0.04 - 0.54 x10'3/ uL ABS. EOSIN OPHIL S 0.06 0.04 - 0.54 x10'3 /uL 03/22 5:34 AM CDT [facility] Not Available Not Available 12/11/2024 16:17:39 03/22/20 24 03/22/2024 CBC W Auto Diffe renti al panel - Blood basophils [#/volume] in blood 0.12 text: 0.01 - 0.08 x10'3/ uL high ABS. BASOP HILS 0.12 (H) 0.01 - 0.08 x10'3 /uL 03/22 5:34 AM CDT [facility] Not Available Not Available 12/11/2024 16:17:39 03/22/20 24 03/22/2024 CBC W Auto Diffe renti al panel - Blood erythrocytes [morphology] in blood by automated count SLIDE REVIEW ED RBC MORPH OLOGY SLIDE REVIE WED 03/22 5:34 AM CDT [facility] Not Available Not Available 12/11/2024 16:17:39 03/22/20 24 03/22/2024 CBC W Auto Diffe renti al panel - Blood anisocytosis [presence] in blood 2+ ANISO 2+ 03/22 5:34 AM CDT [facility] Not Available Not Available 12/11/2024 16:17:39 03/22/20 24 03/22/2024 CBC W Auto Diffe renti al panel - Blood poikilocytos is [presence] in blood by automated count 1+ POIKL O 1+ 03/22 5:34 AM CDT [facility] Not Available Not Available 12/11/2024 16:17:39 03/22/20 24 03/22/2024 CBC W Auto Diffe renti al panel - Blood hypochromia [presence] in blood 2+ HYPOC HROMA JAZMYNE 2+ 03/22 5:34 AM CDT [facility] Not Available Not Available 12/11/2024 16:17:39 03/22/20 24 03/22/2024 CBC W Auto Diffe renti al panel - Blood microcytes [presence] in blood 1+ MICRO 1+ 03/22 5:34 AM CDT [facility] Not Available Not Available 12/11/2024 16:17:39 03/22/20 24 03/22/2024 CBC W Auto Diffe renti al panel - Blood polychromasi a [presence] in blood by light microscopy 1+ POLY 1+ 03/22 5:34 AM CDT [facility] Not Available Not Available 12/11/2024 16:17:39 03/22/20 24 03/22/2024 CBC W Auto Diffe renti al panel - Blood platelets [#/volume] in blood by automated count ADEQUA TE PLT EST. ADEQU ATE 03/22 5:34 AM CDT [facility] Not Available Not Available 12/11/2024 16:17:39 03/22/20 24 03/22/2024 CBC W Auto Diffe renti al panel - Blood interpretati on and review of laboratory results Abnorm al Not Available Not Available 16:17:39 03/22/20 24 03/22/2024 Basic metab olic 2000 panel - Serum or Plasm a glucose [mass/volume ] in serum or plasma 256 text: 70 - 99 mg/dL high GLUCO SE 256 (H) 70 - 99 MG/DL 03/22 5:34 AM CDT [facility] Not Available Not Available 12/11/2024 16:17:39 03/22/20 24 03/22/2024 Basic metab olic 2000 panel - Serum or Plasm a urea nitrogen [mass/volume ] in serum or plasma 25 text: 7 - 18 mg/dL high BUN 25 (H) 7 - 18 MG/DL 03/22 5:34 AM CDT [facility] Not Available Not Available 12/11/2024 16:17:39 03/22/20 24 03/22/2024 Basic metab olic 1999 panel - Serum or Plasm a creatinine [mass/volume ] in serum or plasma 0.84 text: 0.7 - 1.3 mg/dL CREAT ININE S/P/B 0.84 0.7 - 1.3 MG/DL 03/22 5:34 AM CDT [facility] Not Available Not Available 12/11/2024 16:17:39 03/22/20 24 03/22/2024 Basic metab olic 1999 panel - Serum or Plasm a sodium [moles/volum e] in serum or plasma 134 text: 136 - 145 mmol/L low SODIU M S/P/B 134 (L) 136 - 145 MMOL/ L 03/22 5:34 AM CDT [facility] Not Available Not Available 12/11/2024 16:17:39 03/22/20 24 03/22/2024 Basic metab olic 1999 panel - Serum or Plasm a potassium [moles/volum e] in serum or plasma 4.6 text: 3.5 - 5.1 mmol/L POTAS SIUM S/P/B 4.6 3.5 - 5.1 MMOL/ L 03/22 5:34 AM CDT [facility] Not Available Not Available 12/11/2024 16:17:39 03/22/20 24 03/22/2024 Basic metab olic 1999 panel - Serum or Plasm a chloride [moles/volum e] in serum or plasma 101 text: 100 - 108 mmol/L CHLOR SYLVIA S/P/B 101 100 - 108 MMOL/ L 03/22 5:34 AM CDT [facility] Not Available Not Available 12/11/2024 16:17:39 03/22/20 24 03/22/2024 Basic metab olic 2000 panel - Serum or Plasm a carbon dioxide, total [moles/volum e] in serum or plasma 30.8 text: 21 - 32 mmol/L CO2 30.8 21 - 32 MMOL/ L 03/22 5:34 AM CDT [facility] Not Available Not Available 12/11/2024 16:17:39 03/22/20 24 03/22/2024 Basic metab olic 1999 panel - Serum or Plasm a calcium [mass/volume ] in serum or plasma 8.2 text: 8.5 - 10.1 mg/dL low CALCI UM S/P/B 8.2 (L) 8.5 - 10.1 MG/DL 03/22 5:34 AM CDT [facility] Not Available Not Available 12/11/2024 16:17:39 03/22/20 24 03/22/2024 Basic metab olic 1999 panel - Serum or Plasm a anion gap in serum or plasma by calculation 2.2 text: 5 - 15 mmol/L low ANION GAP 2.2 (L) 5 - 15 MMOL/ L 03/22 5:34 AM CDT [facility] Not Available Not Available 12/11/2024 16:17:39 03/22/20 24 03/22/2024 Basic metab olic 1999 panel - Serum or Plasm a urea nitrogen/cre atinine [mass ratio] in serum or plasma 29.7 low: 6high: 26 high BUN CREAT ININE RATIO 29.7 (H) 6 - 26 03/22 5:34 AM CDT [facility] Not Available Not Available 12/11/2024 16:17:39 03/22/20 24 03/22/2024 Basic metab olic 1999 panel - Serum or Plasm a glomerular filtration rate [volume rate/area] in serum, plasma or blood by creatinine-b ased formula (CKD-epi 2020)/1.73 sq M text: >90 mL/min /1.73 M2 GFR ESTIM ATE >90 >90 ML/ND N/1.7 3 M2 03/22 5:34 AM CDT [facility] Not Available Not Available 12/11/2024 16:17:39 03/22/20 24 03/22/2024 Basic metab olic 2000 panel - Serum or Plasm a interpretati on and review of laboratory results Abnorm al Not Available Not Available 16:17:39 03/23/20 24 03/23/2024 Gluco se [Mass /volu me] in Blood by Autom ated test strip glucose [mass/volume ] in blood by automated test strip 171 mg/dL low: 70mg/d Lhigh: 99mg/d L high GLUCO SE POC 171 (H) 70 - 99 mg/dL 03/23 7:37 PM CDT [facility] Not Available Not Available 12/11/2024 16:17:41 03/23/20 24 03/23/2024 Gluco se [Mass /volu me] in Blood by Autom ated test strip interpretati on and review of laboratory results Abnorm al Not Available Not Available 16:17:41 03/23/20 24 03/23/2024 Gluco se [Mass /volu me] in Blood by Autom ated test strip glucose [mass/volume ] in blood by automated test strip 127 mg/dL low: 70mg/d Lhigh: 99mg/d L high GLUCO SE POC 127 (H) 70 - 99 mg/dL 03/23 4:36 PM CDT [facility] Not Available Not Available 12/11/2024 16:17:40 03/23/20 24 03/23/2024 Gluco se [Mass /volu me] in Blood by Autom ated test strip interpretati on and review of laboratory results Abnorm al Not Available Not Available 16:17:40 03/23/20 24 03/23/2024 Gluco se [Mass /volu me] in Blood by Autom ated test strip glucose [mass/volume ] in blood by automated test strip 224 mg/dL low: 70mg/d Lhigh: 99mg/d L high GLUCO SE POC 224 (H) 70 - 99 mg/dL 03/23 11:56 AM CDT [facility] Not Available Not Available 12/11/2024 16:17:40 03/23/20 24 03/23/2024 Gluco se [Mass /volu me] in Blood by Autom ated test strip interpretati on and review of laboratory results Abnorm al Not Available Not Available 16:17:40 03/23/20 24 03/23/2024 CBC W Auto Diffe renti al panel - Blood leukocytes [#/volume] in blood by automated count 6.31 text: 4.5 - 11.0 x10'3/ uL WBC 6.31 4.5 - 11.0 x10'3 /uL 03/23 9:07 AM CDT [facility] Not Available Not Available 12/11/2024 16:17:40 03/23/20 24 03/23/2024 CBC W Auto Diffe renti al panel - Blood erythrocytes [#/volume] in blood by automated count 3.55 text: 4.70 - 6.10 x10'6/ uL low RBC 3.55 (L) 4.70 - 6.10 x10'6 /uL 03/23 9:07 AM CDT [facility] Not Available Not Available 12/11/2024 16:17:40 03/23/20 24 03/23/2024 CBC W Auto Diffe renti al panel - Blood hemoglobin [mass/volume ] in blood 7.7 text: 14.0 - 18.0 g/dL low HGB 7.7 (L) 14.0 - 18.0 G/DL 03/23 9:07 AM CDT [facility] Not Available Not Available 12/11/2024 16:17:40 03/23/20 24 03/23/2024 CBC W Auto Diffe renti al panel - Blood hematocrit [volume fraction] of blood by calculation 28.4 % low: 43%hig h: 54% low HCT 28.4 (L) 43.0 - 54.0 % 03/23 9:07 AM CDT [facility] Not Available Not Available 12/11/2024 16:17:40 03/23/20 24 03/23/2024 CBC W Auto Diffe renti al panel - Blood MCV [entitic mean volume] in red blood cells 80 text: 80.0 - 94.0 fL MCV 80.0 80.0 - 94.0 FL 03/23 9:07 AM T [facility] Not Available Not Available 12/11/2024 16:17:40 03/23/20 24 03/23/2024 CBC W Auto Diffe renti al panel - Blood MCH [entitic mass] 21.7 pg low: 27pghi gh: 31pg low MCH 21.7 (L) 27.0 - 31.0 PG 03/23 9:07 AM CDT [facility] Not Available Not Available 12/11/2024 16:17:40 03/23/20 24 03/23/2024 CBC W Auto Diffe renti al panel - Blood MCHC [entitic mass/volume] in red blood cells 27.1 text: 32.0 - 36.0 g/dL low MCHC 27.1 (L) 32.0 - 36.0 G/DL 03/23 9:07 AM T [facility] Not Available Not Available 12/11/2024 16:17:40 03/23/20 24 03/23/2024 CBC W Auto Diffe renti al panel - Blood RDW 23.3 % low: 11.5%h igh: 14.5% high RDW 23.3 (H) 11.5 - 14.5 % 03/23 9:07 AM T [facility] Not Available Not Available 12/11/2024 16:17:40 03/23/20 24 03/23/2024 CBC W Auto Diffe renti al panel - Blood platelets [#/volume] in blood 247 text: 130 - 400 x10'3/ uL PLT 247 130 - 400 x10'3 /uL 03/23 9:07 AM T [facility] Not Available Not Available 12/11/2024 16:17:40 03/23/20 24 03/23/2024 CBC W Auto Diffe renti al panel - Blood platelet [entitic mean volume] in blood 10.2 text: 9.3 - 12.2 fL MPV 10.2 9.3 - 12.2 FL 03/23 9:07 AM CDT [facility] Not Available Not Available 12/11/2024 16:17:40 03/23/20 24 03/23/2024 CBC W Auto Diffe renti al panel - Blood differential cell count method - blood AUTOMA ANIBAL DIFFER ENTIAL DIFFE RENTI AL TYPE AUTOM ATED DIFFE RENTI AL 03/23 9:41 AM CDT [facility] Not Available Not Available 12/11/2024 16:17:40 03/23/20 24 03/23/2024 CBC W Auto Diffe renti al panel - Blood neutrophils/ leukocytes in blood by automated count 67 % NEUTR OPHIL S % 67.0 % 03/23 9:41 AM CDT [facility] Not Available Not Available 12/11/2024 16:17:40 03/23/20 24 03/23/2024 CBC W Auto Diffe renti al panel - Blood lymphocytes/ leukocytes in blood by automated count 19.3 % LYMPH OCYTE S % 19.3 % 03/23 9:41 AM CDT [facility] Not Available Not Available 12/11/2024 16:17:40 03/23/20 24 03/23/2024 CBC W Auto Diffe renti al panel - Blood monocytes/le ukocytes in blood by automated count 11.9 % MONOC YTES % 11.9 % 03/23 9:41 AM CDT [facility] Not Available Not Available 12/11/2024 16:17:40 03/23/20 24 03/23/2024 CBC W Auto Diffe renti al panel - Blood eosinophils/ leukocytes in blood by automated count 1 % EOSIN OPHIL S 1.0 % 03/23 9:41 AM CDT [facility] Not Available Not Available 12/11/2024 16:17:40 03/23/20 24 03/23/2024 CBC W Auto Diffe renti al panel - Blood basophils/le ukocytes in blood by automated count 0 % BASOP HILS 0.0 % 03/23 9:41 AM CDT [facility] Not Available Not Available 12/11/2024 16:17:40 03/23/20 24 03/23/2024 CBC W Auto Diffe renti al panel - Blood immature granulocytes /leukocytes in blood by automated count 0.8 % IMMAT URE GRANS % 0.8 % 03/23 9:41 AM CDT [facility] Not Available Not Available 12/11/2024 16:17:40 03/23/20 24 03/23/2024 CBC W Auto Diffe renti al panel - Blood neutrophils [#/volume] in blood 4.23 text: 1.80 - 7.70 x10'3/ uL ABS. NEUTR OPHIL S 4.23 1.80 - 7.70 x10'3 /uL 03/23 9:41 AM CDT [facility] Not Available Not Available 12/11/2024 16:17:40 03/23/20 24 03/23/2024 CBC W Auto Diffe renti al panel - Blood lymphocytes [#/volume] in blood 1.22 text: 1.00 - 4.80 x10'3/ uL ABS. LYMPH OCYTE S 1.22 1.00 - 4.80 x10'3 /uL 03/23 9:41 AM CDT [facility] Not Available Not Available 12/11/2024 16:17:40 03/23/20 24 03/23/2024 CBC W Auto Diffe renti al panel - Blood monocytes [#/volume] in blood 0.75 text: 0.30 - 0.82 x10'3/ uL ABS. MONOC YTES 0.75 0.30 - 0.82 x10'3 /uL 03/23 9:41 AM CDT [facility] Not Available Not Available 12/11/2024 16:17:40 03/23/20 24 03/23/2024 CBC W Auto Diffe renti al panel - Blood eosinophils [#/volume] in blood 0.06 text: 0.04 - 0.54 x10'3/ uL ABS. EOSIN OPHIL S 0.06 0.04 - 0.54 x10'3 /uL 03/23 9:41 AM CDT [facility] Not Available Not Available 12/11/2024 16:17:40 03/23/20 24 03/23/2024 CBC W Auto Diffe renti al panel - Blood basophils [#/volume] in blood 0 text: 0.01 - 0.08 x10'3/ uL low ABS. BASOP HILS 0.00 (L) 0.01 - 0.08 x10'3 /uL 03/23 9:41 AM CDT [facility] Not Available Not Available 12/11/2024 16:17:40 03/23/20 24 03/23/2024 CBC W Auto Diffe renti al panel - Blood immature granulocytes [#/volume] in blood 0.05 text: 0.00 - 0.49 x10'3/ uL ABS. IMMAT URE GRANU LOCYT ES 0.05 0.00 - 0.49 x10'3 /uL 03/23 9:41 AM CDT [facility] Not Available Not Available 12/11/2024 16:17:40 03/23/20 24 03/23/2024 CBC W Auto Diffe renti al panel - Blood erythrocytes [morphology] in blood by automated count SLIDE REVIEW ED RBC MORPH OLOGY SLIDE REVIE WED 03/23 9:41 AM CDT [facility] Not Available Not Available 12/11/2024 16:17:40 03/23/20 24 03/23/2024 CBC W Auto Diffe renti al panel - Blood anisocytosis [presence] in blood 2+ ANISO 2+ 03/23 9:41 AM CDT [facility] Not Available Not Available 12/11/2024 16:17:40 03/23/20 24 03/23/2024 CBC W Auto Diffe renrodney al panel - Blood poikilocytos is [presence] in blood by automated count 2+ POIKL O 2+ 03/23 9:41 AM T [facility] Not Available Not Available 12/11/2024 16:17:40 03/23/20 24 03/23/2024 CBC W Auto Diffe rose al panel - Blood platelets [#/volume] in blood by automated count ADEQUA TE PLT EST. ADEQU ATE 03/23 9:41 AM CDT [facility] Not Available Not Available 12/11/2024 16:17:40 03/23/20 24 03/23/2024 CBC W Auto Diffe renti al panel - Blood interpretati on and review of laboratory results Abnorm al Not Available Not Available 16:17:40 03/23/20 24 03/23/2024 Basic metab olic 1999 panel - Serum or Plasm a glucose [mass/volume ] in serum or plasma 87 text: 70 - 99 mg/dL GLUCO SE 87 70 - 99 MG/DL 03/23 9:[address] [facility] Not Available Not Available 12/11/2024 16:17:40 03/23/20 24 03/23/2024 Basic metab olic 1999 panel - Serum or Plasm a urea nitrogen [mass/volume ] in serum or plasma 21 text: 7 - 18 mg/dL high BUN 21 (H) 7 - 18 MG/DL 03/23 9:05 AM T [facility] Not Available Not Available 12/11/2024 16:17:40 03/23/20 24 03/23/2024 Basic metab olic 2000 panel - Serum or Plasm a creatinine [mass/volume ] in serum or plasma 0.75 text: 0.7 - 1.3 mg/dL CREAT ININE S/P/B 0.75 0.7 - 1.3 MG/DL 03/23 9:05 AM T [facility] Not Available Not Available 12/11/2024 16:17:40 03/23/20 24 03/23/2024 Basic metab olic 2000 panel - Serum or Plasm a sodium [moles/volum e] in serum or plasma 137 text: 136 - 145 mmol/L SODIU M S/P/B 137 136 - 145 MMOL/ L 03/23 9:[address] [facility] Not Available Not Available 12/11/2024 16:17:40 03/23/20 24 03/23/2024 Basic metab olic 2000 panel - Serum or Plasm a potassium [moles/volum e] in serum or plasma 4.2 text: 3.5 - 5.1 mmol/L POTAS SIUM S/P/B 4.2 3.5 - 5.1 MMOL/ L 03/23 9:[address] [facility] Not Available Not Available 12/11/2024 16:17:40 03/23/20 24 03/23/2024 Basic metab olic 2000 panel - Serum or Plasm a chloride [moles/volum e] in serum or plasma 102 text: 100 - 108 mmol/L CHLOR SYLVIA S/P/B 102 100 - 108 MMOL/ L 03/23 9:[address] [facility] Not Available Not Available 12/11/2024 16:17:40 03/23/20 24 03/23/2024 Basic metab olic 2000 panel - Serum or Plasm a carbon dioxide, total [moles/volum e] in serum or plasma 31.2 text: 21 - 32 mmol/L CO2 31.2 21 - 32 MMOL/ L 03/23 9:[address] [facility] Not Available Not Available 12/11/2024 16:17:40 03/23/20 24 03/23/2024 Basic metab olic 2000 panel - Serum or Plasm a calcium [mass/volume ] in serum or plasma 8.9 text: 8.5 - 10.1 mg/dL CALCI UM S/P/B 8.9 8.5 - 10.1 MG/DL 03/23 9:[address] [facility] Not Available Not Available 12/11/2024 16:17:40 03/23/20 24 03/23/2024 Basic metab olic 2000 panel - Serum or Plasm a anion gap in serum or plasma by calculation 3.8 text: 5 - 15 mmol/L low ANION GAP 3.8 (L) 5 - 15 MMOL/ L 03/23 9:[address] [facility] Not Available Not Available 12/11/2024 16:17:40 03/23/20 24 03/23/2024 Basic metab olic 2000 panel - Serum or Plasm a urea nitrogen/cre atinine [mass ratio] in serum or plasma 28.2 low: 6high: 26 high BUN CREAT ININE RATIO 28.2 (H) 6 - 26 03/23 9:[address] [facility] Not Available Not Available 12/11/2024 16:17:40 03/23/20 24 03/23/2024 Basic metab olic 2000 panel - Serum or Plasm a glomerular filtration rate [volume rate/area] in serum, plasma or blood by creatinine-b ased formula (CKD-epi 2020)/1.73 sq M text: >90 mL/min /1.73 M2 GFR ESTIM ATE >90 >90 ML/ND N/1.7 3 M2 03/23 9:[address] [facility] Not Available Not Available 12/11/2024 16:17:40 03/23/20 24 03/23/2024 Basic metab olic 2000 panel - Serum or Plasm a interpretati on and review of laboratory results Abnorm al Not Available Not Available 16:17:40 03/23/20 24 03/23/2024 Gluco se [Mass /volu me] in Blood by Autom ated test strip glucose [mass/volume ] in blood by automated test strip 73 mg/dL low: 70mg/d Lhigh: 99mg/d L GLUCO SE POC 73 70 - 99 mg/dL 03/23 6:53 AM CDT [facility] Not Available Not Available 12/11/2024 16:17:40 03/23/20 24 03/23/2024 Gluco se [Mass /volu me] in Blood by Autom ated test strip glucose [mass/volume ] in blood by automated test strip 67 mg/dL low: 70mg/d Lhigh: 99mg/d L low GLUCO SE POC 67 (L) 70 - 99 mg/dL 03/23 6:53 AM CDT [facility] Not Available Not Available 12/11/2024 16:17:40 03/23/20 24 03/23/2024 Gluco se [Mass /volu me] in Blood by Autom ated test strip interpretati on and review of laboratory results Abnorm al Not Available Not Available 16:17:40 03/24/20 24 03/24/2024 Gluco se [Mass /volu me] in Blood by Autom ated test strip glucose [mass/volume ] in blood by automated test strip 157 mg/dL low: 70mg/d Lhigh: 99mg/d L high GLUCO SE POC 157 (H) 70 - 99 mg/dL 03/24 8:30 PM CDT [facility] Not Available Not Available 12/11/2024 16:17:41 03/24/20 24 03/24/2024 Gluco se [Mass /volu me] in Blood by Autom ated test strip interpretati on and review of laboratory results Abnorm al Not Available Not Available 16:17:41 03/24/20 24 03/24/2024 Gluco se [Mass /volu me] in Blood by Autom ated test strip glucose [mass/volume ] in blood by automated test strip 106 mg/dL low: 70mg/d Lhigh: 99mg/d L high GLUCO SE POC 106 (H) 70 - 99 mg/dL 03/24 3:58 PM CDT [facility] Not Available Not Available 12/11/2024 16:17:41 03/24/20 24 03/24/2024 Gluco se [Mass /volu me] in Blood by Autom ated test strip interpretati on and review of laboratory results Abnorm al Not Available Not Available 16:17:41 03/24/20 24 03/24/2024 CBC W Auto Diffe renti al panel - Blood leukocytes [#/volume] in blood by automated count 5.47 text: 4.5 - 11.0 x10'3/ uL WBC 5.47 4.5 - 11.0 x10'3 /uL 03/24 12:40 PM CDT [facility] Not Available Not Available 12/11/2024 16:17:41 03/24/20 24 03/24/2024 CBC W Auto Diffe renti al panel - Blood erythrocytes [#/volume] in blood by automated count 3.41 text: 4.70 - 6.10 x10'6/ uL low RBC 3.41 (L) 4.70 - 6.10 x10'6 /uL 03/24 12:40 PM CDT [facility] Not Available Not Available 12/11/2024 16:17:41 03/24/20 24 03/24/2024 CBC W Auto Diffe renti al panel - Blood hemoglobin [mass/volume ] in blood 7.6 text: 14.0 - 18.0 g/dL low HGB 7.6 (L) 14.0 - 18.0 G/DL 03/24 12:40 PM CDT [facility] Not Available Not Available 12/11/2024 16:17:41 03/24/20 24 03/24/2024 CBC W Auto Diffe renti al panel - Blood hematocrit [volume fraction] of blood by calculation 27.2 % low: 43%hig h: 54% low HCT 27.2 (L) 43.0 - 54.0 % 03/24 12:40 PM CDT [facility] Not Available Not Available 12/11/2024 16:17:41 03/24/20 24 03/24/2024 CBC W Auto Diffe renti al panel - Blood MCV [entitic mean volume] in red blood cells 79.8 text: 80.0 - 94.0 fL low MCV 79.8 (L) 80.0 - 94.0 FL 03/24 12:40 PM CDT [facility] Not Available Not Available 12/11/2024 16:17:41 03/24/20 24 03/24/2024 CBC W Auto Diffe renti al panel - Blood MCH [entitic mass] 22.3 pg low: 27pghi gh: 31pg low MCH 22.3 (L) 27.0 - 31.0 PG 03/24 12:40 PM CDT [facility] Not Available Not Available 12/11/2024 16:17:41 03/24/20 24 03/24/2024 CBC W Auto Diffe renti al panel - Blood MCHC [entitic mass/volume] in red blood cells 27.9 text: 32.0 - 36.0 g/dL low MCHC 27.9 (L) 32.0 - 36.0 G/DL 03/24 12:40 PM CDT [facility] Not Available Not Available 12/11/2024 16:17:41 03/24/20 24 03/24/2024 CBC W Auto Diffe renti al panel - Blood RDW 23.2 % low: 11.5%h igh: 14.5% high RDW 23.2 (H) 11.5 - 14.5 % 03/24 12:40 PM CDT [facility] Not Available Not Available 12/11/2024 16:17:41 03/24/20 24 03/24/2024 CBC W Auto Diffe renti al panel - Blood platelets [#/volume] in blood 243 text: 130 - 400 x10'3/ uL PLT 243 130 - 400 x10'3 /uL 03/24 12:40 PM CDT [facility] Not Available Not Available 12/11/2024 16:17:41 03/24/20 24 03/24/2024 CBC W Auto Diffe renti al panel - Blood platelet [entitic mean volume] in blood 9.8 text: 9.3 - 12.2 fL MPV 9.8 9.3 - 12.2 FL 03/24 12:40 PM CDT [facility] Not Available Not Available 12/11/2024 16:17:41 03/24/20 24 03/24/2024 CBC W Auto Diffe renti al panel - Blood differential cell count method - blood AUTOMA ANIBAL DIFFER ENTIAL DIFFE RENTI AL TYPE AUTOM ATED DIFFE RENTI AL 03/24 1:11 PM CDT [facility] Not Available Not Available 12/11/2024 16:17:41 03/24/20 24 03/24/2024 CBC W Auto Diffe renti al panel - Blood neutrophils/ leukocytes in blood by automated count 73.9 % NEUTR OPHIL S % 73.9 % 03/24 1:11 PM CDT [facility] Not Available Not Available 12/11/2024 16:17:41 03/24/20 24 03/24/2024 CBC W Auto Diffe renti al panel - Blood lymphocytes/ leukocytes in blood by automated count 14.8 % LYMPH OCYTE S % 14.8 % 03/24 1:11 PM CDT [facility] Not Available Not Available 12/11/2024 16:17:41 03/24/20 24 03/24/2024 CBC W Auto Diffe renti al panel - Blood monocytes/le ukocytes in blood by automated count 9.9 % MONOC YTES % 9.9 % 03/24 1:11 PM CDT [facility] Not Available Not Available 12/11/2024 16:17:41 03/24/20 24 03/24/2024 CBC W Auto Diffe renti al panel - Blood eosinophils/ leukocytes in blood by automated count 0.7 % EOSIN OPHIL S 0.7 % 03/24 1:11 PM CDT [facility] Not Available Not Available 12/11/2024 16:17:41 03/24/20 24 03/24/2024 CBC W Auto Diffe renti al panel - Blood basophils/le ukocytes in blood by automated count 0.2 % BASOP HILS 0.2 % 03/24 1:11 PM CDT [facility] Not Available Not Available 12/11/2024 16:17:41 03/24/20 24 03/24/2024 CBC W Auto Diffe renti al panel - Blood immature granulocytes /leukocytes in blood by automated count 0.5 % IMMAT URE GRANS % 0.5 % 03/24 1:11 PM CDT [facility] Not Available Not Available 12/11/2024 16:17:41 03/24/20 24 03/24/2024 CBC W Auto Diffe renti al panel - Blood neutrophils [#/volume] in blood 4.04 text: 1.80 - 7.70 x10'3/ uL ABS. NEUTR OPHIL S 4.04 1.80 - 7.70 x10'3 /uL 03/24 1:11 PM CDT [facility] Not Available Not Available 12/11/2024 16:17:41 03/24/20 24 03/24/2024 CBC W Auto Diffe renti al panel - Blood lymphocytes [#/volume] in blood 0.81 text: 1.00 - 4.80 x10'3/ uL low ABS. LYMPH OCYTE S 0.81 (L) 1.00 - 4.80 x10'3 /uL 03/24 1:11 PM CDT [facility] Not Available Not Available 12/11/2024 16:17:41 03/24/20 24 03/24/2024 CBC W Auto Diffe renti al panel - Blood monocytes [#/volume] in blood 0.54 text: 0.30 - 0.82 x10'3/ uL ABS. MONOC YTES 0.54 0.30 - 0.82 x10'3 /uL 03/24 1:11 PM CDT [facility] Not Available Not Available 12/11/2024 16:17:41 03/24/20 24 03/24/2024 CBC W Auto Diffe renti al panel - Blood eosinophils [#/volume] in blood 0.04 text: 0.04 - 0.54 x10'3/ uL ABS. EOSIN OPHIL S 0.04 0.04 - 0.54 x10'3 /uL 03/24 1:11 PM CDT [facility] Not Available Not Available 12/11/2024 16:17:41 03/24/20 24 03/24/2024 CBC W Auto Diffe renti al panel - Blood basophils [#/volume] in blood 0.01 text: 0.01 - 0.08 x10'3/ uL ABS. BASOP HILS 0.01 0.01 - 0.08 x10'3 /uL 03/24 1:11 PM CDT [facility] Not Available Not Available 12/11/2024 16:17:41 03/24/20 24 03/24/2024 CBC W Auto Diffe renti al panel - Blood immature granulocytes [#/volume] in blood 0.03 text: 0.00 - 0.49 x10'3/ uL ABS. IMMAT URE GRANU LOCYT ES 0.03 0.00 - 0.49 x10'3 /uL 03/24 1:11 PM CDT [facility] Not Available Not Available 12/11/2024 16:17:41 03/24/20 24 03/24/2024 CBC W Auto Diffe renti al panel - Blood erythrocytes [morphology] in blood by automated count SLIDE REVIEW ED RBC MORPH OLOGY SLIDE REVIE WED 03/24 1:11 PM CDT [facility] Not Available Not Available 12/11/2024 16:17:41 03/24/20 24 03/24/2024 CBC W Auto Diffe renti al panel - Blood anisocytosis [presence] in blood 2+ ANISO 2+ 03/24 1:11 PM CDT [facility] Not Available Not Available 12/11/2024 16:17:41 03/24/20 24 03/24/2024 CBC W Auto Diffe renti al panel - Blood poikilocytos is [presence] in blood by automated count 1+ POIKL O 1+ 03/24 1:11 PM CDT [facility] Not Available Not Available 12/11/2024 16:17:41 03/24/20 24 03/24/2024 CBC W Auto Diffe renti al panel - Blood hypochromia [presence] in blood 1+ HYPOC HROMA JAZMYNE 1+ 03/24 1:11 PM CDT [facility] Not Available Not Available 12/11/2024 16:17:41 03/24/20 24 03/24/2024 CBC W Auto Diffe renti al panel - Blood polychromasi a [presence] in blood by light microscopy 1+ POLY 1+ 03/24 1:11 PM CDT [facility] Not Available Not Available 12/11/2024 16:17:41 03/24/20 24 03/24/2024 CBC W Auto Diffe renti al panel - Blood platelets [#/volume] in blood by automated count ADEQUA TE PLT EST. ADEQU ATE 03/24 1:11 PM CDT [facility] Not Available Not Available 12/11/2024 16:17:41 03/24/20 24 03/24/2024 CBC W Auto Diffe renti al panel - Blood interpretati on and review of laboratory results Abnorm al Not Available Not Available 16:17:41 03/24/20 24 03/24/2024 Gluco se [Mass /volu me] in Blood by Autom ated test strip glucose [mass/volume ] in blood by automated test strip 211 mg/dL low: 70mg/d Lhigh: 99mg/d L high GLUCO SE POC 211 (H) 70 - 99 mg/dL 03/24 11:48 AM CDT [facility] Not Available Not Available 12/11/2024 16:17:41 03/24/20 24 03/24/2024 Gluco se [Mass /volu me] in Blood by Autom ated test strip interpretati on and review of laboratory results Abnorm al Not Available Not Available 16:17:41 03/24/20 24 03/24/2024 Gluco se [Mass /volu me] in Blood by Autom ated test strip glucose [mass/volume ] in blood by automated test strip 124 mg/dL low: 70mg/d Lhigh: 99mg/d L high GLUCO SE POC 124 (H) 70 - 99 mg/dL 03/24 7:02 AM CDT [facility] Not Available Not Available 12/11/2024 16:17:41 03/24/20 24 03/24/2024 Gluco se [Mass /volu me] in Blood by Autom ated test strip interpretati on and review of laboratory results Abnorm al Not Available Not Available 16:17:41 03/24/20 24 03/24/2024 CBC W Auto Diffe renti al panel - Blood leukocytes [#/volume] in blood by automated count 5.99 text: 4.5 - 11.0 x10'3/ uL WBC 5.99 4.5 - 11.0 x10'3 /uL 03/24 5:21 AM CDT [facility] Not Available Not Available 12/11/2024 16:17:41 03/24/20 24 03/24/2024 CBC W Auto Diffe renti al panel - Blood erythrocytes [#/volume] in blood by automated count 3.35 text: 4.70 - 6.10 x10'6/ uL low RBC 3.35 (L) 4.70 - 6.10 x10'6 /uL 03/24 5:21 AM CDT [facility] Not Available Not Available 12/11/2024 16:17:41 03/24/20 24 03/24/2024 CBC W Auto Diffe renti al panel - Blood hemoglobin [mass/volume ] in blood 7.2 text: 14.0 - 18.0 g/dL low HGB 7.2 (L) 14.0 - 18.0 G/DL 03/24 5:21 AM CDT [facility] Not Available Not Available 12/11/2024 16:17:41 03/24/20 24 03/24/2024 CBC W Auto Diffe renti al panel - Blood hematocrit [volume fraction] of blood by calculation 26.2 % low: 43%hig h: 54% low HCT 26.2 (L) 43.0 - 54.0 % 03/24 5:21 AM CDT [facility] Not Available Not Available 12/11/2024 16:17:41 03/24/20 24 03/24/2024 CBC W Auto Diffe renti al panel - Blood MCV [entitic mean volume] in red blood cells 78.2 text: 80.0 - 94.0 fL low MCV 78.2 (L) 80.0 - 94.0 FL 03/24 5:21 AM CDT [facility] Not Available Not Available 12/11/2024 16:17:41 03/24/20 24 03/24/2024 CBC W Auto Diffe marisolti al panel - Blood MCH [entitic mass] 21.5 pg low: 27pghi gh: 31pg low MCH 21.5 (L) 27.0 - 31.0 PG 03/24 5:21 AM CDT [facility] Not Available Not Available 12/11/2024 16:17:41 03/24/20 24 03/24/2024 CBC W Auto Diffe renti al panel - Blood MCHC [entitic mass/volume] in red blood cells 27.5 text: 32.0 - 36.0 g/dL low MCHC 27.5 (L) 32.0 - 36.0 G/DL 03/24 5:21 AM CDT [facility] Not Available Not Available 12/11/2024 16:17:41 03/24/20 24 03/24/2024 CBC W Auto Diffe renti al panel - Blood RDW 23.2 % low: 11.5%h igh: 14.5% high RDW 23.2 (H) 11.5 - 14.5 % 03/24 5:21 AM CDT [facility] Not Available Not Available 12/11/2024 16:17:41 03/24/20 24 03/24/2024 CBC W Auto Diffe renti al panel - Blood platelets [#/volume] in blood 274 text: 130 - 400 x10'3/ uL PLT 274 130 - 400 x10'3 /uL 03/24 5:21 AM CDT [facility] Not Available Not Available 12/11/2024 16:17:41 03/24/20 24 03/24/2024 CBC W Auto Diffe renti al panel - Blood platelet [entitic mean volume] in blood 10.3 text: 9.3 - 12.2 fL MPV 10.3 9.3 - 12.2 FL 03/24 5:21 AM CDT [facility] Not Available Not Available 12/11/2024 16:17:41 03/24/20 24 03/24/2024 CBC W Auto Diffe renti al panel - Blood differential cell count method - blood AUTOMA ANIBAL DIFFER ENTIAL DIFFE RENTI AL TYPE AUTOM ATED DIFFE RENTI AL 03/24 5:21 AM CDT [facility] Not Available Not Available 12/11/2024 16:17:41 03/24/20 24 03/24/2024 CBC W Auto Diffe renti al panel - Blood neutrophils/ leukocytes in blood by automated count 69 % NEUTR OPHIL S % 69.0 % 03/24 5:21 AM CDT [facility] Not Available Not Available 12/11/2024 16:17:41 03/24/20 24 03/24/2024 CBC W Auto Diffe renti al panel - Blood lymphocytes/ leukocytes in blood by automated count 18.2 % LYMPH OCYTE S % 18.2 % 03/24 5:21 AM CDT [facility] Not Available Not Available 12/11/2024 16:17:41 03/24/20 24 03/24/2024 CBC W Auto Diffe renti al panel - Blood monocytes/le ukocytes in blood by automated count 10.9 % MONOC YTES % 10.9 % 03/24 5:21 AM CDT [facility] Not Available Not Available 12/11/2024 16:17:41 03/24/20 24 03/24/2024 CBC W Auto Diffe renti al panel - Blood eosinophils/ leukocytes in blood by automated count 1.2 % EOSIN OPHIL S 1.2 % 03/24 5:21 AM CDT [facility] Not Available Not Available 12/11/2024 16:17:41 03/24/20 24 03/24/2024 CBC W Auto Diffe renti al panel - Blood basophils/le ukocytes in blood by automated count 0.2 % BASOP HILS 0.2 % 03/24 5:21 AM CDT [facility] Not Available Not Available 12/11/2024 16:17:41 03/24/20 24 03/24/2024 CBC W Auto Diffe renti al panel - Blood immature granulocytes /leukocytes in blood by automated count 0.5 % IMMAT URE GRANS % 0.5 % 03/24 5:21 AM CDT [facility] Not Available Not Available 12/11/2024 16:17:41 03/24/20 24 03/24/2024 CBC W Auto Diffe renti al panel - Blood neutrophils [#/volume] in blood 4.14 text: 1.80 - 7.70 x10'3/ uL ABS. NEUTR OPHIL S 4.14 1.80 - 7.70 x10'3 /uL 03/24 5:21 AM CDT [facility] Not Available Not Available 12/11/2024 16:17:41 03/24/20 24 03/24/2024 CBC W Auto Diffe renti al panel - Blood lymphocytes [#/volume] in blood 1.09 text: 1.00 - 4.80 x10'3/ uL ABS. LYMPH OCYTE S 1.09 1.00 - 4.80 x10'3 /uL 03/24 5:21 AM CDT [facility] Not Available Not Available 12/11/2024 16:17:41 03/24/20 24 03/24/2024 CBC W Auto Diffe renti al panel - Blood monocytes [#/volume] in blood 0.65 text: 0.30 - 0.82 x10'3/ uL ABS. MONOC YTES 0.65 0.30 - 0.82 x10'3 /uL 03/24 5:21 AM CDT [facility] Not Available Not Available 12/11/2024 16:17:41 03/24/20 24 03/24/2024 CBC W Auto Diffe renti al panel - Blood eosinophils [#/volume] in blood 0.07 text: 0.04 - 0.54 x10'3/ uL ABS. EOSIN OPHIL S 0.07 0.04 - 0.54 x10'3 /uL 03/24 5:21 AM CDT [facility] Not Available Not Available 12/11/2024 16:17:41 03/24/20 24 03/24/2024 CBC W Auto Diffe renti al panel - Blood basophils [#/volume] in blood 0.01 text: 0.01 - 0.08 x10'3/ uL ABS. BASOP HILS 0.01 0.01 - 0.08 x10'3 /uL 03/24 5:21 AM CDT [facility] Not Available Not Available 12/11/2024 16:17:41 03/24/20 24 03/24/2024 CBC W Auto Diffe renti al panel - Blood immature granulocytes [#/volume] in blood 0.03 text: 0.00 - 0.49 x10'3/ uL ABS. IMMAT URE GRANU LOCYT ES 0.03 0.00 - 0.49 x10'3 /uL 03/24 5:21 AM CDT [facility] Not Available Not Available 12/11/2024 16:17:41 03/24/20 24 03/24/2024 CBC W Auto Diffe renti al panel - Blood erythrocytes [morphology] in blood by automated count SLIDE REVIEW ED RBC MORPH OLOGY SLIDE REVIE WED 03/24 5:21 AM CDT [facility] Not Available Not Available 12/11/2024 16:17:41 03/24/20 24 03/24/2024 CBC W Auto Diffe renti al panel - Blood anisocytosis [presence] in blood 2+ ANISO 2+ 03/24 5:21 AM CDT [facility] Not Available Not Available 12/11/2024 16:17:41 03/24/20 24 03/24/2024 CBC W Auto Diffe renti al panel - Blood poikilocytos is [presence] in blood by automated count 2+ POIKL O 2+ 03/24 5:21 AM CDT [facility] Not Available Not Available 12/11/2024 16:17:41 03/24/20 24 03/24/2024 CBC W Auto Diffe renti al panel - Blood hypochromia [presence] in blood 1+ HYPOC HROMA JAZMYNE 1+ 03/24 5:21 AM CDT [facility] Not Available Not Available 12/11/2024 16:17:41 03/24/20 24 03/24/2024 CBC W Auto Diffe renti al panel - Blood polychromasi a [presence] in blood by light microscopy 2+ POLY 2+ 03/24 5:21 AM CDT [facility] Not Available Not Available 12/11/2024 16:17:41 03/24/20 24 03/24/2024 CBC W Auto Diffe renti al panel - Blood acanthocytes [presence] in blood by light microscopy 1+ ACANT HOCYT ES 1+ 03/24 5:21 AM CDT [facility] Not Available Not Available 12/11/2024 16:17:41 03/24/20 24 03/24/2024 CBC W Auto Diffe renti al panel - Blood elliptocytes 1+ ELLIP TOCYT ES 1+ 03/24 5:21 AM CDT [facility] Not Available Not Available 12/11/2024 16:17:41 03/24/20 24 03/24/2024 CBC W Auto Diffe renti al panel - Blood platelets [#/volume] in blood by automated count ADEQUA TE PLT EST. ADEQU ATE 03/24 5:21 AM CDT [facility] Not Available Not Available 12/11/2024 16:17:41 03/24/20 24 03/24/2024 CBC W Auto Diffe renti al panel - Blood interpretati on and review of laboratory results Abnorm al Not Available Not Available 16:17:41 03/24/20 24 03/24/2024 Basic metab olic 2000 panel - Serum or Plasm a glucose [mass/volume ] in serum or plasma 178 text: 70 - 99 mg/dL high GLUCO SE 178 (H) 70 - 99 MG/DL 03/24 5:22 AM CDT [facility] Not Available Not Available 12/11/2024 16:17:41 03/24/20 24 03/24/2024 Basic metab olic 2000 panel - Serum or Plasm a urea nitrogen [mass/volume ] in serum or plasma 16 text: 7 - 18 mg/dL BUN 16 7 - 18 MG/DL 03/24 5:22 AM CDT [facility] Not Available Not Available 12/11/2024 16:17:41 03/24/20 24 03/24/2024 Basic metab olic 2000 panel - Serum or Plasm a creatinine [mass/volume ] in serum or plasma 0.76 text: 0.7 - 1.3 mg/dL CREAT ININE S/P/B 0.76 0.7 - 1.3 MG/DL 03/24 5:22 AM CDT [facility] Not Available Not Available 12/11/2024 16:17:41 03/24/20 24 03/24/2024 Basic metab olic 2000 panel - Serum or Plasm a sodium [moles/volum e] in serum or plasma 135 text: 136 - 145 mmol/L low SODIU M S/P/B 135 (L) 136 - 145 MMOL/ L 03/24 5:22 AM CDT [facility] Not Available Not Available 12/11/2024 16:17:41 03/24/20 24 03/24/2024 Basic metab olic 2000 panel - Serum or Plasm a potassium [moles/volum e] in serum or plasma 4.2 text: 3.5 - 5.1 mmol/L POTAS SIUM S/P/B 4.2 3.5 - 5.1 MMOL/ L 03/24 5:22 AM CDT [facility] Not Available Not Available 12/11/2024 16:17:41 03/24/20 24 03/24/2024 Basic metab olic 2000 panel - Serum or Plasm a chloride [moles/volum e] in serum or plasma 102 text: 100 - 108 mmol/L CHLOR SYLVIA S/P/B 102 100 - 108 MMOL/ L 03/24 5:22 AM CDT [facility] Not Available Not Available 12/11/2024 16:17:41 03/24/20 24 03/24/2024 Basic metab olic 2000 panel - Serum or Plasm a carbon dioxide, total [moles/volum e] in serum or plasma 30.5 text: 21 - 32 mmol/L CO2 30.5 21 - 32 MMOL/ L 03/24 5:22 AM CDT [facility] Not Available Not Available 12/11/2024 16:17:41 03/24/20 24 03/24/2024 Basic metab olic 1999 panel - Serum or Plasm a calcium [mass/volume ] in serum or plasma 8.7 text: 8.5 - 10.1 mg/dL CALCI UM S/P/B 8.7 8.5 - 10.1 MG/DL 03/24 5:22 AM CDT [facility] Not Available Not Available 12/11/2024 16:17:41 03/24/20 24 03/24/2024 Basic metab olic 2000 panel - Serum or Plasm a anion gap in serum or plasma by calculation 2.5 text: 5 - 15 mmol/L low ANION GAP 2.5 (L) 5 - 15 MMOL/ L 03/24 5:22 AM CDT [facility] Not Available Not Available 12/11/2024 16:17:41 03/24/20 24 03/24/2024 Basic metab olic 1999 panel - Serum or Plasm a urea nitrogen/cre atinine [mass ratio] in serum or plasma 20.9 low: 6high: 26 BUN CREAT ININE RATIO 20.9 6 - 26 03/24 5:22 AM CDT [facility] Not Available Not Available 12/11/2024 16:17:41 03/24/20 24 03/24/2024 Basic metab olic 2000 panel - Serum or Plasm a glomerular filtration rate [volume rate/area] in serum, plasma or blood by creatinine-b ased formula (CKD-epi 2020)/1.73 sq M text: >90 mL/min /1.73 M2 GFR ESTIM ATE >90 >90 ML/ND N/1.7 3 M2 03/24 5:22 AM CDT [facility] Not Available Not Available 12/11/2024 16:17:41 03/24/20 24 03/24/2024 Basic metab olic 2000 panel - Serum or Plasm a interpretati on and review of laboratory results Abnorm al Not Available Not Available 16:17:41 03/24/20 24 03/24/2024 aPTT in Plate let poor plasm a by [place] assay APTT in platelet poor plasma by coagulation assay 40 text: 25.1 - 36.5 sec high PTT 40.0 (H) 25.1 - 36.5 SEC 03/24 5:14 AM CDT [facility] Not Available Not Available 12/11/2024 16:17:41 03/24/20 24 03/24/2024 aPTT in Plate let poor plasm a by [place] assay interpretati on and review of laboratory results Abnorm al Not Available Not Available 16:17:41 03/24/20 24 03/24/2024 Proth rombi n time (PT) prothrombin time (PT) 12.2 text: 10.2 - 12.9 sec PROTI ME 12.2 10.2 - 12.9 SEC 03/24 5:14 AM CDT [facility] Not Available Not Available 12/11/2024 16:17:41 03/24/20 24 03/24/2024 Proth rombi n time (PT) INR in platelet poor plasma by coagulation assay 1 INR 1.0 03/24 5:14 AM CDT [facility] Not Available Not Available 12/11/2024 16:17:41 03/25/20 24 03/25/2024 POC GLUCO SE POC glucose 156 mg/dL 70-99 high Not Available [facility] (Lab) [place], [address], 03/25/2024 14:22:04 03/25/20 24 03/25/2024 POC GLUCO SE POC glucose 134 mg/dL 70-99 high Not Available [facility] (Lab) [place], [address], 03/25/2024 15:25:49 03/25/20 24 03/25/2024 Gluco se [Mass /volu me] in Blood by Autom ated test strip glucose [mass/volume ] in blood by automated test strip 276 mg/dL low: 70mg/d Lhigh: 99mg/d L high GLUCO SE POC 276 (H) 70 - 99 mg/dL 03/25 8:27 PM CDT [facility] Not Available Not Available 12/11/2024 16:17:42 03/25/20 24 03/25/2024 Gluco se [Mass /volu me] in Blood by Autom ated test strip interpretati on and review of laboratory results Abnorm al Not Available Not Available 16:17:42 03/25/20 24 03/25/2024 Gas panel - Arter ial blood pH of blood 7.37 low: 7.35hi gh: 7.45 PH ARTER IAL 7.37 7.35 - 7.45 03/25 5:46 PM CDT [facility] Not Available Not Available 12/11/2024 16:17:42 03/25/20 24 03/25/2024 Gas panel - Arter ial blood carbon dioxide [partial pressure] in blood 53 text: 35.0 - 45.0 mmHg high PCO2 53.0 (H) 35.0 - 45.0 MMHG 03/25 5:46 PM CDT [facility] Not Available Not Available 12/11/2024 16:17:42 03/25/20 24 03/25/2024 Gas panel - Arter ial blood oxygen [partial pressure] in blood 54 text: 83.0 - 108.0 mmHg low PO2 54.0 (L) 83.0 - 108.0 MMHG 03/25 5:46 PM CDT [facility] Not Available Not Available 12/11/2024 16:17:42 03/25/20 24 03/25/2024 Gas panel - Arter ial blood carbon dioxide, total [moles/volum e] in blood 32.2 text: 19.0 - 24.0 mmol/L high TOTAL CO2 ARTER IAL 32.2 (H) 19.0 - 24.0 MMOL/ L 03/25 5:46 PM CDT [facility] Not Available Not Available 12/11/2024 16:17:42 03/25/20 24 03/25/2024 Gas panel - Arter ial blood base excess in arterial blood by calculation 4 text: 0.0 - 3.0 mmol/L high BASE EXCES S 4.0 (H) 0.0 - 3.0 MMOL/ L 03/25 5:46 PM CDT [facility] Not Available Not Available 12/11/2024 16:17:42 03/25/20 24 03/25/2024 Gas panel - Arter ial blood oxygen saturation in blood 87 % low: 94%hig h: 98% low O2 SATUR ATION 87 (L) 94.0 - 98.0 % 03/25 5:46 PM CDT [facility] Not Available Not Available 12/11/2024 16:17:42 03/25/20 24 03/25/2024 Gas panel - Arter ial blood bicarbonate [moles/volum e] in blood 30.6 text: 21.0 - 28.0 mmol/L high BICAR B ARTER IAL 30.6 (H) 21.0 - 28.0 MMOL/ L 03/25 5:46 PM CDT [facility] Not Available Not Available 12/11/2024 16:17:42 03/25/20 24 03/25/2024 Gas panel - Arter ial blood service comment 21 O2 ADMIN ARTER IAL 21 03/25 5:43 PM CDT [facility] Not Available Not Available 12/11/2024 16:17:42 03/25/20 24 03/25/2024 Gas panel - Arter ial blood specimen site narrative LT RADIAL DRAW SITE ARTER IAL LT RADIA L 03/25 5:43 PM CDT [facility] Not Available Not Available 12/11/2024 16:17:42 03/25/20 24 03/25/2024 Gas panel - Arter ial blood interpretati on and review of laboratory results Abnorm al Not Available Not Available 16:17:42 03/25/20 24 03/25/2024 Gluco se [Mass /volu me] in Blood by Autom ated test strip glucose [mass/volume ] in blood by automated test strip 85 mg/dL low: 70mg/d Lhigh: 99mg/d L GLUCO SE POC 85 70 - 99 mg/dL 03/25 4:29 PM CDT [facility] Not Available Not Available 12/11/2024 16:17:42 03/25/20 24 03/25/2024 Gluco se [Mass /volu me] in Blood by Autom ated test strip glucose [mass/volume ] in blood by automated test strip 134 mg/dL low: 70mg/d Lhigh: 99mg/d L high GLUCO SE POC 134 (H) 70 - 99 mg/dL 03/25 2:25 PM CDT [facility] Not Available Not Available 12/11/2024 16:17:42 03/25/20 24 03/25/2024 Gluco se [Mass /volu me] in Blood by Autom ated test strip interpretati on and review of laboratory results Abnorm al Not Available Not Available 16:17:42 03/25/20 24 03/25/2024 Gluco se [Mass /volu me] in Blood by Autom ated test strip glucose [mass/volume ] in blood by automated test strip 156 mg/dL low: 70mg/d Lhigh: 99mg/d L high GLUCO SE POC 156 (H) 70 - 99 mg/dL 03/25 1:21 PM CDT [facility] Not Available Not Available 12/11/2024 16:17:42 03/25/20 24 03/25/2024 Gluco se [Mass /volu me] in Blood by Autom ated test strip interpretati on and review of laboratory results Abnorm al Not Available Not Available 16:17:42 03/25/20 24 03/26/2024 Blood type and Indir ect antib brigid scree n panel - Blood blood product units requested [#] 1 UNITS ORDER ED 1 07/30 /2024 6:58 AM CDT [facility] Not Available Not Available 12/11/2024 16:17:42 03/25/20 24 03/26/2024 Blood type and Indir ect antib brigid scree n panel - Blood ABO and Rh group panel - blood O POSITI VE ABO/R H O POSIT JOSEPH 03/25 3:45 PM CDT [facility] Not Available Not Available 12/11/2024 16:17:42 03/25/20 24 03/26/2024 Blood type and Indir ect antib brigid scree n panel - Blood blood group antibody screen [presence] in serum or plasma NEGATI VE ANTIB BRIGID SCREE N NEGAT JOSEPH 03/25 3:45 PM CDT [facility] Not Available Not Available 12/11/2024 16:17:42 03/25/20 24 03/26/2024 Blood type and Indir ect antib brigid scree n panel - Blood specimen expiration date of blood 2023,2 359 SAMPL E EXPIR ATION 03/28 ,2359 03/25 3:45 PM CDT [facility] Not Available Not Available 12/11/2024 16:17:42 03/25/20 24 03/26/2024 Blood type and Indir ect antib brigid scree n panel - Blood blood product unit id [#] [id number] BLOOD UNIT NUMBE R [id number] 03/25 4:38 PM CDT [facility] Not Available Not Available 12/11/2024 16:17:42 03/25/20 24 03/26/2024 Blood type and Indir ect antib brigid scree n panel - Blood blood product type PC LEUKOP OOR PRODU CT: PC LEUKO POOR 03/25 4:38 PM CDT [facility] Not Available Not Available 12/11/2024 16:17:42 03/25/20 24 03/26/2024 Blood type and Indir ect antib brigid scree n panel - Blood unit division 0 UNIT DIVIS ION 00 03/25 4:38 PM CDT [facility] Not Available Not Available 12/11/2024 16:17:42 03/25/20 24 03/26/2024 Blood type and Indir ect antib brigid scree n panel - Blood blood bank comment TRANSF USED,F INAL BLOOD UNIT STATU S TRANS FUSED ,ISAIAH L 03/26 6:53 AM CDT [facility] Not Available Not Available 12/11/2024 16:17:42 03/25/20 24 03/26/2024 Blood type and Indir ect antib brigid scree n panel - Blood issue date/time [id number] ISSUE DATE/ TIME [id number] 40 03/26 6:53 AM CDT [facility] Not Available Not Available 12/11/2024 16:17:42 03/25/20 24 03/26/2024 Blood type and Indir ect antib brigid scree n panel - Blood product code [id number] CODE E0336 V00 03/26 6:53 AM CDT [facility] Not Available Not Available 12/11/2024 16:17:42 03/25/20 24 03/26/2024 Blood type and Indir ect antib brigid scree n panel - Blood ABO/Rh unit O POS ABO/R H Unit O POS 03/26 6:53 AM CDT [facility] Not Available Not Available 12/11/2024 16:17:42 03/25/20 24 03/26/2024 Blood type and Indir ect antib brigid scree n panel - Blood ABO/Rh unit isbt code 5100 ABO/R H UNIT ISBT CODE 5100 03/26 6:53 AM CDT [facility] Not Available Not Available 12/11/2024 16:17:42 03/25/20 24 03/26/2024 Blood type and Indir ect antib brigid scree n panel - Blood blood unit expiration date [id number] BLOOD UNIT EXPIR ATION DATE [id number] 59 03/26 6:53 AM CDT [facility] Not Available Not Available 12/11/2024 16:17:42 03/25/20 24 03/26/2024 Blood type and Indir ect antib brigid scree n panel - Blood transfusion status qualitative OK TO TRANSF USE TRANS FUSIO N STATU S OK TO TRANS FUSE 03/25 4:38 PM CDT [facility] Not Available Not Available 12/11/2024 16:17:42 03/25/20 24 03/26/2024 Blood type and Indir ect antib brigid scree n panel - Blood major crossmatch [interpretat ion] COMPAT IBLE-E XM CROSS MATCH JANIS TIBLE -EXM 03/25 4:38 PM CDT [facility] Not Available Not Available 12/11/2024 16:17:42 03/25/20 24 03/25/2024 Gluco se [Mass /volu me] in Blood by Autom ated test strip glucose [mass/volume ] in blood by automated test strip 62 mg/dL low: 70mg/d Lhigh: 99mg/d L low GLUCO SE POC 62 (L) 70 - 99 mg/dL 03/25 11:41 AM CDT [facility] Not Available Not Available 12/11/2024 16:17:42 03/25/20 24 03/25/2024 Gluco se [Mass /volu me] in Blood by Autom ated test strip interpretati on and review of laboratory results Abnorm al Not Available Not Available 16:17:42 03/25/20 24 03/25/2024 CBC W Auto Diffe renti al panel - Blood leukocytes [#/volume] in blood by automated count 5.78 text: 4.5 - 11.0 x10'3/ uL WBC 5.78 4.5 - 11.0 x10'3 /uL 03/25 8:15 AM CDT [facility] Not Available Not Available 12/11/2024 16:17:42 03/25/20 24 03/25/2024 CBC W Auto Diffe renti al panel - Blood erythrocytes [#/volume] in blood by automated count 3.48 text: 4.70 - 6.10 x10'6/ uL low RBC 3.48 (L) 4.70 - 6.10 x10'6 /uL 03/25 8:15 AM CDT [facility] Not Available Not Available 12/11/2024 16:17:42 03/25/20 24 03/25/2024 CBC W Auto Diffe renti al panel - Blood hemoglobin [mass/volume ] in blood 7.6 text: 14.0 - 18.0 g/dL low HGB 7.6 (L) 14.0 - 18.0 G/DL 03/25 8:15 AM CDT [facility] Not Available Not Available 12/11/2024 16:17:42 03/25/20 24 03/25/2024 CBC W Auto Diffe renti al panel - Blood hematocrit [volume fraction] of blood by calculation 27.4 % low: 43%hig h: 54% low HCT 27.4 (L) 43.0 - 54.0 % 03/25 8:15 AM CDT [facility] Not Available Not Available 12/11/2024 16:17:42 03/25/20 24 03/25/2024 CBC W Auto Diffe renti al panel - Blood MCV [entitic mean volume] in red blood cells 78.7 text: 80.0 - 94.0 fL low MCV 78.7 (L) 80.0 - 94.0 FL 03/25 8:15 AM CDT [facility] Not Available Not Available 12/11/2024 16:17:42 03/25/20 24 03/25/2024 CBC W Auto Diffe renti al panel - Blood MCH [entitic mass] 21.8 pg low: 27pghi gh: 31pg low MCH 21.8 (L) 27.0 - 31.0 PG 03/25 8:15 AM CDT [facility] Not Available Not Available 12/11/2024 16:17:42 03/25/20 24 03/25/2024 CBC W Auto Diffe renti al panel - Blood MCHC [entitic mass/volume] in red blood cells 27.7 text: 32.0 - 36.0 g/dL low MCHC 27.7 (L) 32.0 - 36.0 G/DL 03/25 8:15 AM CDT [facility] Not Available Not Available 12/11/2024 16:17:42 03/25/20 24 03/25/2024 CBC W Auto Diffe renti al panel - Blood RDW 23.6 % low: 11.5%h igh: 14.5% high RDW 23.6 (H) 11.5 - 14.5 % 03/25 8:15 AM CDT [facility] Not Available Not Available 12/11/2024 16:17:42 03/25/20 24 03/25/2024 CBC W Auto Diffe renti al panel - Blood platelets [#/volume] in blood 262 text: 130 - 400 x10'3/ uL PLT 262 130 - 400 x10'3 /uL 03/25 8:15 AM CDT [facility] Not Available Not Available 12/11/2024 16:17:42 03/25/20 24 03/25/2024 CBC W Auto Diffe renti al panel - Blood platelet [entitic mean volume] in blood 10.4 text: 9.3 - 12.2 fL MPV 10.4 9.3 - 12.2 FL 03/25 8:15 AM CDT [facility] Not Available Not Available 12/11/2024 16:17:42 03/25/20 24 03/25/2024 CBC W Auto Diffe renti al panel - Blood differential cell count method - blood AUTOMA ANIBAL DIFFER ENTIAL DIFFE RENTI AL TYPE AUTOM ATED DIFFE RENTI AL 03/25 8:52 AM CDT [facility] Not Available Not Available 12/11/2024 16:17:42 03/25/20 24 03/25/2024 CBC W Auto Diffe renti al panel - Blood neutrophils/ leukocytes in blood by automated count 67.2 % NEUTR OPHIL S % 67.2 % 03/25 8:52 AM CDT [facility] Not Available Not Available 12/11/2024 16:17:42 03/25/20 24 03/25/2024 CBC W Auto Diffe renti al panel - Blood lymphocytes/ leukocytes in blood by automated count 17.3 % LYMPH OCYTE S % 17.3 % 03/25 8:52 AM CDT [facility] Not Available Not Available 12/11/2024 16:17:42 03/25/20 24 03/25/2024 CBC W Auto Diffe renti al panel - Blood monocytes/le ukocytes in blood by automated count 13.5 % MONOC YTES % 13.5 % 03/25 8:52 AM CDT [facility] Not Available Not Available 12/11/2024 16:17:42 03/25/20 24 03/25/2024 CBC W Auto Diffe renti al panel - Blood eosinophils/ leukocytes in blood by automated count 0.9 % EOSIN OPHIL S 0.9 % 03/25 8:52 AM CDT [facility] Not Available Not Available 12/11/2024 16:17:42 03/25/20 24 03/25/2024 CBC W Auto Diffe renti al panel - Blood basophils/le ukocytes in blood by automated count 0.2 % BASOP HILS 0.2 % 03/25 8:52 AM CDT [facility] Not Available Not Available 12/11/2024 16:17:42 03/25/20 24 03/25/2024 CBC W Auto Diffe renti al panel - Blood immature granulocytes /leukocytes in blood by automated count 0.9 % IMMAT URE GRANS % 0.9 % 03/25 8:52 AM CDT [facility] Not Available Not Available 12/11/2024 16:17:42 03/25/20 24 03/25/2024 CBC W Auto Diffe renti al panel - Blood neutrophils [#/volume] in blood 3.89 text: 1.80 - 7.70 x10'3/ uL ABS. NEUTR OPHIL S 3.89 1.80 - 7.70 x10'3 /uL 03/25 8:52 AM CDT [facility] Not Available Not Available 12/11/2024 16:17:42 03/25/20 24 03/25/2024 CBC W Auto Diffe renti al panel - Blood lymphocytes [#/volume] in blood 1 text: 1.00 - 4.80 x10'3/ uL ABS. LYMPH OCYTE S 1.00 1.00 - 4.80 x10'3 /uL 03/25 8:52 AM CDT [facility] Not Available Not Available 12/11/2024 16:17:42 03/25/20 24 03/25/2024 CBC W Auto Diffe renti al panel - Blood monocytes [#/volume] in blood 0.78 text: 0.30 - 0.82 x10'3/ uL ABS. MONOC YTES 0.78 0.30 - 0.82 x10'3 /uL 03/25 8:52 AM CDT [facility] Not Available Not Available 12/11/2024 16:17:42 03/25/20 24 03/25/2024 CBC W Auto Diffe renti al panel - Blood eosinophils [#/volume] in blood 0.05 text: 0.04 - 0.54 x10'3/ uL ABS. EOSIN OPHIL S 0.05 0.04 - 0.54 x10'3 /uL 07/29 /2024 8:52 AM CDT [facility] Not Available Not Available 12/11/2024 16:17:42 03/25/20 24 03/25/2024 CBC W Auto Diffe renti al panel - Blood basophils [#/volume] in blood 0.01 text: 0.01 - 0.08 x10'3/ uL ABS. BASOP HILS 0.01 0.01 - 0.08 x10'3 /uL 03/25 8:52 AM CDT [facility] Not Available Not Available 12/11/2024 16:17:42 03/25/20 24 03/25/2024 CBC W Auto Diffe renti al panel - Blood immature granulocytes [#/volume] in blood 0.05 text: 0.00 - 0.49 x10'3/ uL ABS. IMMAT URE GRANU LOCYT ES 0.05 0.00 - 0.49 x10'3 /uL 03/25 8:52 AM CDT [facility] Not Available Not Available 12/11/2024 16:17:42 03/25/20 24 03/25/2024 CBC W Auto Diffe renti al panel - Blood erythrocytes [morphology] in blood by automated count SLIDE REVIEW ED RBC MORPH OLOGY SLIDE REVIE WED 03/25 8:52 AM CDT [facility] Not Available Not Available 12/11/2024 16:17:42 03/25/20 24 03/25/2024 CBC W Auto Diffe renti al panel - Blood anisocytosis [presence] in blood 2+ ANISO 2+ 03/25 8:52 AM CDT [facility] Not Available Not Available 12/11/2024 16:17:42 03/25/20 24 03/25/2024 CBC W Auto Diffe renti al panel - Blood hypochromia [presence] in blood 1+ HYPOC HROMA JAZMYNE 1+ 03/25 8:52 AM CDT [facility] Not Available Not Available 12/11/2024 16:17:42 03/25/20 24 03/25/2024 CBC W Auto Diffe renti al panel - Blood polychromasi a [presence] in blood by light microscopy 2+ POLY 2+ 03/25 8:52 AM CDT [facility] Not Available Not Available 12/11/2024 16:17:42 03/25/20 24 03/25/2024 CBC W Auto Diffe renti al panel - Blood schisto 2+ SCHIS TO 2+ 03/25 8:52 AM CDT [facility] Not Available Not Available 12/11/2024 16:17:42 03/25/20 24 03/25/2024 CBC W Auto Diffe renti al panel - Blood acanthocytes [presence] in blood by light microscopy 1+ ACANT HOCYT ES 1+ 03/25 8:52 AM CDT [facility] Not Available Not Available 12/11/2024 16:17:42 03/25/20 24 03/25/2024 CBC W Auto Diffe renti al panel - Blood elliptocytes 1+ ELLIP TOCYT ES 1+ 03/25 8:52 AM CDT [facility] Not Available Not Available 12/11/2024 16:17:42 03/25/20 24 03/25/2024 CBC W Auto Diffe renti al panel - Blood platelets [#/volume] in blood by automated count ADEQUA TE PLT EST. ADEQU ATE 03/25 8:52 AM CDT [facility] Not Available Not Available 12/11/2024 16:17:42 03/25/20 24 03/25/2024 CBC W Auto Diffe renti al panel - Blood interpretati on and review of laboratory results Abnorm al Not Available Not Available 16:17:42 03/25/20 24 03/25/2024 Basic metab olic 2000 panel - Serum or Plasm a glucose [mass/volume ] in serum or plasma 79 text: 70 - 99 mg/dL GLUCO SE 79 70 - 99 MG/DL 03/25 9:17 AM CDT [facility] Not Available Not Available 12/11/2024 16:17:42 03/25/20 24 03/25/2024 Basic metab olic 2000 panel - Serum or Plasm a urea nitrogen [mass/volume ] in serum or plasma 17 text: 7 - 18 mg/dL BUN 17 7 - 18 MG/DL 03/25 9:17 AM CDT [facility] Not Available Not Available 12/11/2024 16:17:42 03/25/20 24 03/25/2024 Basic metab olic 2000 panel - Serum or Plasm a creatinine [mass/volume ] in serum or plasma 0.83 text: 0.7 - 1.3 mg/dL CREAT ININE S/P/B 0.83 0.7 - 1.3 MG/DL 03/25 9:17 AM T [facility] Not Available Not Available 12/11/2024 16:17:42 03/25/20 24 03/25/2024 Basic metab olic 2000 panel - Serum or Plasm a sodium [moles/volum e] in serum or plasma 136 text: 136 - 145 mmol/L SODIU M S/P/B 136 136 - 145 MMOL/ L 03/25 9:17 AM T [facility] Not Available Not Available 12/11/2024 16:17:42 03/25/20 24 03/25/2024 Basic metab olic 2000 panel - Serum or Plasm a potassium [moles/volum e] in serum or plasma 4.2 text: 3.5 - 5.1 mmol/L POTAS SIUM S/P/B 4.2 3.5 - 5.1 MMOL/ L 03/25 9:17 AM T [facility] Not Available Not Available 12/11/2024 16:17:42 03/25/20 24 03/25/2024 Basic metab olic 2000 panel - Serum or Plasm a chloride [moles/volum e] in serum or plasma 103 text: 100 - 108 mmol/L CHLOR SYLVIA S/P/B 103 100 - 108 MMOL/ L 03/25 9:17 AM T [facility] Not Available Not Available 12/11/2024 16:17:42 03/25/20 24 03/25/2024 Basic metab olic 2000 panel - Serum or Plasm a carbon dioxide, total [moles/volum e] in serum or plasma 29.5 text: 21 - 32 mmol/L CO2 29.5 21 - 32 MMOL/ L 03/25 9:17 AM T [facility] Not Available Not Available 12/11/2024 16:17:42 03/25/20 24 03/25/2024 Basic metab olic 1999 panel - Serum or Plasm a calcium [mass/volume ] in serum or plasma 8.9 text: 8.5 - 10.1 mg/dL CALCI UM S/P/B 8.9 8.5 - 10.1 MG/DL 03/25 9:17 AM T [facility] Not Available Not Available 12/11/2024 16:17:42 03/25/20 24 03/25/2024 Basic metab olic 2000 panel - Serum or Plasm a anion gap in serum or plasma by calculation 3.5 text: 5 - 15 mmol/L low ANION GAP 3.5 (L) 5 - 15 MMOL/ L 03/25 9:17 AM T [facility] Not Available Not Available 12/11/2024 16:17:42 03/25/20 24 03/25/2024 Basic metab olic 2000 panel - Serum or Plasm a urea nitrogen/cre atinine [mass ratio] in serum or plasma 20.6 low: 6high: 26 BUN CREAT ININE RATIO 20.6 6 - 26 03/25 9:17 AM T [facility] Not Available Not Available 12/11/2024 16:17:42 03/25/20 24 03/25/2024 Basic metab olic 2000 panel - Serum or Plasm a glomerular filtration rate [volume rate/area] in serum, plasma or blood by creatinine-b ased formula (CKD-epi 2020)/1.73 sq M text: >90 mL/min /1.73 M2 GFR ESTIM ATE >90 >90 ML/ND N/1.7 3 M2 03/25 9:17 AM T [facility] Not Available Not Available 12/11/2024 16:17:42 03/25/20 24 03/25/2024 Basic metab olic 2000 panel - Serum or Plasm a interpretati on and review of laboratory results Abnorm al Not Available Not Available 16:17:42 03/25/20 24 03/25/2024 Gluco se [Mass /volu me] in Blood by Autom ated test strip glucose [mass/volume ] in blood by automated test strip 113 mg/dL low: 70mg/d Lhigh: 99mg/d L high GLUCO SE POC 113 (H) 70 - 99 mg/dL 03/25 6:35 AM CDT [facility] Not Available Not Available 12/11/2024 16:17:41 03/25/20 24 03/25/2024 Gluco se [Mass /volu me] in Blood by Autom ated test strip interpretati on and review of laboratory results Abnorm al Not Available Not Available 16:17:41 03/26/20 24 03/26/2024 Gluco se [Mass /volu me] in Blood by Autom ated test strip glucose [mass/volume ] in blood by automated test strip 218 mg/dL low: 70mg/d Lhigh: 99mg/d L high GLUCO SE POC 218 (H) 70 - 99 mg/dL 03/26 8:07 PM CDT [facility] Not Available Not Available 12/11/2024 16:17:44 03/26/20 24 03/26/2024 Gluco se [Mass /volu me] in Blood by Autom ated test strip interpretati on and review of laboratory results Abnorm al Not Available Not Available 16:17:44 03/26/20 24 03/26/2024 Gluco se [Mass /volu me] in Blood by Autom ated test strip glucose [mass/volume ] in blood by automated test strip 266 mg/dL low: 70mg/d Lhigh: 99mg/d L high GLUCO SE POC 266 (H) 70 - 99 mg/dL 03/26 4:11 PM CDT [facility] Not Available Not Available 12/11/2024 16:17:44 03/26/20 24 03/26/2024 Gluco se [Mass /volu me] in Blood by Autom ated test strip interpretati on and review of laboratory results Abnorm al Not Available Not Available 16:17:44 03/26/20 24 03/26/2024 Gluco se [Mass /volu me] in Blood by Autom ated test strip glucose [mass/volume ] in blood by automated test strip 136 mg/dL low: 70mg/d Lhigh: 99mg/d L high GLUCO SE POC 136 (H) 70 - 99 mg/dL 03/26 11:25 AM CDT [facility] Not Available Not Available 12/11/2024 16:17:44 03/26/20 24 03/26/2024 Gluco se [Mass /volu me] in Blood by Autom ated test strip interpretati on and review of laboratory results Abnorm al Not Available Not Available 16:17:44 03/26/20 24 03/26/2024 Gluco se [Mass /volu me] in Blood by Autom ated test strip glucose [mass/volume ] in blood by automated test strip 71 mg/dL low: 70mg/d Lhigh: 99mg/d L GLUCO SE POC 71 70 - 99 mg/dL 03/26 11:07 AM T [facility] Not Available Not Available 12/11/2024 16:17:43 03/26/20 24 03/26/2024 Gluco se [Mass /volu me] in Blood by Autom ated test strip glucose [mass/volume ] in blood by automated test strip 40 mg/dL low: 70mg/d Lhigh: 99mg/d L low GLUCO SE POC 40 (L) 70 - 99 mg/dL 03/26 11:09 AM CDT [facility] Not Available Not Available 12/11/2024 16:17:43 03/26/20 24 03/26/2024 Gluco se [Mass /volu me] in Blood by Autom ated test strip interpretati on and review of laboratory results Abnorm al Not Available Not Available 16:17:43 03/26/20 24 03/26/2024 Hepat ic funct ion 2000 panel - Serum or Plasm a protein [mass/volume ] in serum or plasma 6 text: 6.4 - 8.2 g/dL low TOTAL PROTE IN S/P/B 6.0 (L) 6.4 - 8.2 G/DL 03/26 1:11 PM CDT [facility] Not Available Not Available 12/11/2024 16:17:43 03/26/20 24 03/26/2024 Hepat ic funct ion 2000 panel - Serum or Plasm a albumin [mass/volume ] in serum or plasma 2.8 text: 3.4 - 5.0 g/dL low ALBUM IN S/P/B 2.8 (L) 3.4 - 5.0 G/DL 03/26 1:11 PM CDT [facility] Not Available Not Available 12/11/2024 16:17:43 03/26/20 24 03/26/2024 Hepat ic funct ion 2000 panel - Serum or Plasm a bilirubin.to kelly [mass/volume ] in serum or plasma 0.3 text: 0.2 - 1.2 mg/dL BILIR UBIN TOTAL S/P/B 0.3 0.2 - 1.2 MG/DL 03/26 1:11 PM CDT [facility] Not Available Not Available 12/11/2024 16:17:43 03/26/20 24 03/26/2024 Hepat ic funct ion 2000 panel - Serum or Plasm a bilirubin.co njugated [mass/volume ] in serum or plasma 0.1 text: 0.0 - 0.20 mg/dL BILIR UBIN DIREC T S/P/B 0.1 0.0 - 0.20 MG/DL 03/26 1:11 PM CDT [facility] Not Available Not Available 12/11/2024 16:17:43 03/26/20 24 03/26/2024 Hepat ic funct ion 1999 panel - Serum or Plasm a bilirubin.in direct [mass/volume ] in serum or plasma 0.2 text: 0.0 - 0.9 mg/dL BILIR UBIN INDIR ECT S/P/B 0.2 0.0 - 0.9 MG/DL 03/26 1:11 PM CDT [facility] Not Available Not Available 12/11/2024 16:17:43 03/26/20 24 03/26/2024 Hepat ic funct ion 1999 panel - Serum or Plasm a alkaline phosphatase [enzymatic activity/vol ume] in serum or plasma 102 U/L low: 50U/Lh igh: 136U/L ALKAL INE PHOSP HATAS E S/P/B 102 50 - 136 U/L 03/26 1:11 PM CDT [facility] Not Available Not Available 12/11/2024 16:17:43 03/26/20 24 03/26/2024 Hepat ic funct ion 1999 panel - Serum or Plasm a aspartate aminotransfe rase [enzymatic activity/vol ume] in serum or plasma 18 U/L low: 15U/Lh igh: 37U/L AST 18 15 - 37 U/L 03/26 1:11 PM CDT [facility] Not Available Not Available 12/11/2024 16:17:43 03/26/20 24 03/26/2024 Hepat ic funct ion 2000 panel - Serum or Plasm a alanine aminotransfe rase [enzymatic activity/vol ume] in serum or plasma 31 U/L low: 16U/Lh igh: 60U/L ALT 31 16 - 60 U/L 03/26 1:11 PM CDT [facility] Not Available Not Available 12/11/2024 16:17:43 03/26/20 24 03/26/2024 Hepat ic funct ion 1999 panel - Serum or Plasm a albumin/glob ulin [mass ratio] in serum or plasma 0.9 text: 1.0 - 2.0 ratio low A/G RATIO 0.9 (L) 1.0 - 2.0 RATIO 03/26 1:11 PM T [facility] Not Available Not Available 12/11/2024 16:17:43 03/26/20 24 03/26/2024 Hepat ic funct ion 1999 panel - Serum or Plasm a interpretati on and review of laboratory results Abnorm al Not Available Not Available 16:17:43 03/26/20 24 03/26/2024 Basic metab olic 2000 panel - Serum or Plasm a glucose [mass/volume ] in serum or plasma 45 text: 70 - 99 mg/dL low GLUCO SE 45 (L) 70 - 99 MG/DL 03/26 10:[address] [facility] Not Available Not Available 12/11/2024 16:17:43 03/26/20 24 03/26/2024 Basic metab olic 2000 panel - Serum or Plasm a urea nitrogen [mass/volume ] in serum or plasma 14 text: 7 - 18 mg/dL BUN 14 7 - 18 MG/DL 03/26 10:[address] [facility] Not Available Not Available 12/11/2024 16:17:43 03/26/20 24 03/26/2024 Basic metab olic 2000 panel - Serum or Plasm a creatinine [mass/volume ] in serum or plasma 0.8 text: 0.7 - 1.3 mg/dL CREAT ININE S/P/B 0.80 0.7 - 1.3 MG/DL 03/26 10:37 AM T [facility] Not Available Not Available 12/11/2024 16:17:43 03/26/20 24 03/26/2024 Basic metab olic 2000 panel - Serum or Plasm a sodium [moles/volum e] in serum or plasma 137 text: 136 - 145 mmol/L SODIU M S/P/B 137 136 - 145 MMOL/ L 03/26 10:37 AM CDT [facility] Not Available Not Available 12/11/2024 16:17:43 03/26/20 24 03/26/2024 Basic metab olic 2000 panel - Serum or Plasm a potassium [moles/volum e] in serum or plasma 4 text: 3.5 - 5.1 mmol/L POTAS SIUM S/P/B 4.0 3.5 - 5.1 MMOL/ L 03/26 10:37 AM CDT [facility] Not Available Not Available 12/11/2024 16:17:43 03/26/20 24 03/26/2024 Basic metab olic 2000 panel - Serum or Plasm a chloride [moles/volum e] in serum or plasma 105 text: 100 - 108 mmol/L CHLOR SYLVIA S/P/B 105 100 - 108 MMOL/ L 03/26 10:37 AM CDT [facility] Not Available Not Available 12/11/2024 16:17:43 03/26/20 24 03/26/2024 Basic metab olic 2000 panel - Serum or Plasm a carbon dioxide, total [moles/volum e] in serum or plasma 29.3 text: 21 - 32 mmol/L CO2 29.3 21 - 32 MMOL/ L 03/26 10:37 AM T [facility] Not Available Not Available 12/11/2024 16:17:43 03/26/20 24 03/26/2024 Basic metab olic 2000 panel - Serum or Plasm a calcium [mass/volume ] in serum or plasma 9.1 text: 8.5 - 10.1 mg/dL CALCI UM S/P/B 9.1 8.5 - 10.1 MG/DL 03/26 10:37 AM CDT [facility] Not Available Not Available 12/11/2024 16:17:43 03/26/20 24 03/26/2024 Basic metab olic 2000 panel - Serum or Plasm a anion gap in serum or plasma by calculation 2.7 text: 5 - 15 mmol/L low ANION GAP 2.7 (L) 5 - 15 MMOL/ L 03/26 10:37 AM CDT [facility] Not Available Not Available 12/11/2024 16:17:43 03/26/20 24 03/26/2024 Basic metab olic 2000 panel - Serum or Plasm a urea nitrogen/cre atinine [mass ratio] in serum or plasma 17.5 low: 6high: 26 BUN CREAT ININE RATIO 17.5 6 - 26 03/26 10:37 AM CDT [facility] Not Available Not Available 12/11/2024 16:17:43 03/26/20 24 03/26/2024 Basic metab olic 2000 panel - Serum or Plasm a glomerular filtration rate [volume rate/area] in serum, plasma or blood by creatinine-b ased formula (CKD-epi 2020)/1.73 sq M text: >90 mL/min /1.73 M2 GFR ESTIM ATE >90 >90 ML/ND N/1.7 3 M2 03/26 10:37 AM CDT [facility] Not Available Not Available 12/11/2024 16:17:43 03/26/20 24 03/26/2024 Basic metab olic 2000 panel - Serum or Plasm a interpretati on and review of laboratory results Abnorm al Not Available Not Available 16:17:43 03/26/20 24 03/26/2024 CBC W Auto Diffe renti al panel - Blood leukocytes [#/volume] in blood by automated count 7.21 text: 4.5 - 11.0 x10'3/ uL WBC 7.21 4.5 - 11.0 x10'3 /uL 03/26 8:26 AM CDT [facility] Not Available Not Available 12/11/2024 16:17:43 03/26/20 24 03/26/2024 CBC W Auto Diffe renti al panel - Blood erythrocytes [#/volume] in blood by automated count 4.2 text: 4.70 - 6.10 x10'6/ uL low RBC 4.20 (L) 4.70 - 6.10 x10'6 /uL 03/26 8:26 AM CDT [facility] Not Available Not Available 12/11/2024 16:17:43 03/26/20 24 03/26/2024 CBC W Auto Diffe renti al panel - Blood hemoglobin [mass/volume ] in blood 9.7 text: 14.0 - 18.0 g/dL low HGB 9.7 (L) 14.0 - 18.0 G/DL 03/26 8:26 AM CDT [facility] Not Available Not Available 12/11/2024 16:17:43 03/26/20 24 03/26/2024 CBC W Auto Diffe marisolti al panel - Blood hematocrit [volume fraction] of blood by calculation 33.2 % low: 43%hig h: 54% low HCT 33.2 (L) 43.0 - 54.0 % 03/26 8:26 AM CDT [facility] Not Available Not Available 12/11/2024 16:17:43 03/26/20 24 03/26/2024 CBC W Auto Diffe marisolti al panel - Blood MCV [entitic mean volume] in red blood cells 79 text: 80.0 - 94.0 fL low MCV 79.0 (L) 80.0 - 94.0 FL 03/26 8:26 AM CDT [facility] Not Available Not Available 12/11/2024 16:17:43 03/26/20 24 03/26/2024 CBC W Auto Diffe renti al panel - Blood MCH [entitic mass] 23.1 pg low: 27pghi gh: 31pg low MCH 23.1 (L) 27.0 - 31.0 PG 03/26 8:26 AM CDT [facility] Not Available Not Available 12/11/2024 16:17:43 07/30/20 24 03/26/2024 CBC W Auto Diffe renti al panel - Blood MCHC [entitic mass/volume] in red blood cells 29.2 text: 32.0 - 36.0 g/dL low MCHC 29.2 (L) 32.0 - 36.0 G/DL 03/26 8:26 AM CDT [facility] Not Available Not Available 12/11/2024 16:17:43 03/26/20 24 03/26/2024 CBC W Auto Diffe renti al panel - Blood RDW 23.2 % low: 11.5%h igh: 14.5% high RDW 23.2 (H) 11.5 - 14.5 % 03/26 8:26 AM CDT [facility] Not Available Not Available 12/11/2024 16:17:43 03/26/20 24 03/26/2024 CBC W Auto Diffe renti al panel - Blood platelets [#/volume] in blood 268 text: 130 - 400 x10'3/ uL PLT 268 130 - 400 x10'3 /uL 03/26 8:26 AM CDT [facility] Not Available Not Available 12/11/2024 16:17:43 03/26/20 24 03/26/2024 CBC W Auto Diffe renti al panel - Blood platelet [entitic mean volume] in blood 10.7 text: 9.3 - 12.2 fL MPV 10.7 9.3 - 12.2 FL 03/26 8:26 AM CDT [facility] Not Available Not Available 12/11/2024 16:17:43 03/26/20 24 03/26/2024 CBC W Auto Diffe renti al panel - Blood differential cell count method - blood AUTOMA ANIBAL DIFFER ENTIAL DIFFE RENTI AL TYPE AUTOM ATED DIFFE RENTI AL 03/26 8:53 AM CDT [facility] Not Available Not Available 12/11/2024 16:17:43 03/26/20 24 03/26/2024 CBC W Auto Diffe renti al panel - Blood neutrophils/ leukocytes in blood by automated count 64.6 % NEUTR OPHIL S % 64.6 % 03/26 8:53 AM CDT [facility] Not Available Not Available 12/11/2024 16:17:43 03/26/20 24 03/26/2024 CBC W Auto Diffe renti al panel - Blood lymphocytes/ leukocytes in blood by automated count 16.5 % LYMPH OCYTE S % 16.5 % 03/26 8:53 AM CDT [facility] Not Available Not Available 12/11/2024 16:17:43 03/26/20 24 03/26/2024 CBC W Auto Diffe renti al panel - Blood monocytes/le ukocytes in blood by automated count 15.8 % MONOC YTES % 15.8 % 03/26 8:53 AM CDT [facility] Not Available Not Available 12/11/2024 16:17:43 03/26/20 24 03/26/2024 CBC W Auto Diffe renti al panel - Blood eosinophils/ leukocytes in blood by automated count 0.6 % EOSIN OPHIL S 0.6 % 03/26 8:53 AM CDT [facility] Not Available Not Available 12/11/2024 16:17:43 03/26/20 24 03/26/2024 CBC W Auto Diffe renti al panel - Blood basophils/le ukocytes in blood by automated count 0.4 % BASOP HILS 0.4 % 03/26 8:53 AM CDT [facility] Not Available Not Available 12/11/2024 16:17:43 03/26/20 24 03/26/2024 CBC W Auto Diffe renti al panel - Blood immature granulocytes /leukocytes in blood by automated count 2.1 % IMMAT URE GRANS % 2.1 % 03/26 8:53 AM CDT [facility] Not Available Not Available 12/11/2024 16:17:43 03/26/20 24 03/26/2024 CBC W Auto Diffe renti al panel - Blood neutrophils [#/volume] in blood 4.66 text: 1.80 - 7.70 x10'3/ uL ABS. NEUTR OPHIL S 4.66 1.80 - 7.70 x10'3 /uL 03/26 8:53 AM CDT [facility] Not Available Not Available 12/11/2024 16:17:43 03/26/20 24 03/26/2024 CBC W Auto Diffe renti al panel - Blood lymphocytes [#/volume] in blood 1.19 text: 1.00 - 4.80 x10'3/ uL ABS. LYMPH OCYTE S 1.19 1.00 - 4.80 x10'3 /uL 03/26 8:53 AM CDT [facility] Not Available Not Available 12/11/2024 16:17:43 03/26/20 24 03/26/2024 CBC W Auto Diffe renti al panel - Blood monocytes [#/volume] in blood 1.14 text: 0.30 - 0.82 x10'3/ uL high ABS. MONOC YTES 1.14 (H) 0.30 - 0.82 x10'3 /uL 03/26 8:53 AM CDT [facility] Not Available Not Available 12/11/2024 16:17:43 03/26/20 24 03/26/2024 CBC W Auto Diffe renti al panel - Blood eosinophils [#/volume] in blood 0.04 text: 0.04 - 0.54 x10'3/ uL ABS. EOSIN OPHIL S 0.04 0.04 - 0.54 x10'3 /uL 03/26 8:53 AM CDT [facility] Not Available Not Available 12/11/2024 16:17:43 03/26/20 24 03/26/2024 CBC W Auto Diffe renti al panel - Blood basophils [#/volume] in blood 0.03 text: 0.01 - 0.08 x10'3/ uL ABS. BASOP HILS 0.03 0.01 - 0.08 x10'3 /uL 03/26 8:53 AM CDT [facility] Not Available Not Available 12/11/2024 16:17:43 03/26/20 24 03/26/2024 CBC W Auto Diffe renti al panel - Blood immature granulocytes [#/volume] in blood 0.15 text: 0.00 - 0.49 x10'3/ uL ABS. IMMAT URE GRANU LOCYT ES 0.15 0.00 - 0.49 x10'3 /uL 03/26 8:53 AM CDT [facility] Not Available Not Available 12/11/2024 16:17:43 03/26/20 24 03/26/2024 CBC W Auto Diffe renti al panel - Blood erythrocytes [morphology] in blood by automated count SLIDE REVIEW ED RBC MORPH OLOGY SLIDE REVIE WED 03/26 8:53 AM CDT [facility] Not Available Not Available 12/11/2024 16:17:43 03/26/20 24 03/26/2024 CBC W Auto Diffe renti al panel - Blood anisocytosis [presence] in blood 2+ ANISO 2+ 03/26 8:53 AM CDT [facility] Not Available Not Available 12/11/2024 16:17:43 03/26/20 24 03/26/2024 CBC W Auto Diffe renti al panel - Blood polychromasi a [presence] in blood by light microscopy 2+ POLY 2+ 03/26 8:53 AM CDT [facility] Not Available Not Available 12/11/2024 16:17:43 03/26/20 24 03/26/2024 CBC W Auto Diffe renti al panel - Blood nimisha 1+ NIMISHA 1+ 03/26 8:53 AM CDT [facility] Not Available Not Available 12/11/2024 16:17:43 03/26/20 24 03/26/2024 CBC W Auto Diffe renti al panel - Blood acanthocytes [presence] in blood by light microscopy 1+ ACANT HOCYT ES 1+ 03/26 8:53 AM CDT [facility] Not Available Not Available 12/11/2024 16:17:43 03/26/20 24 03/26/2024 CBC W Auto Diffe renti al panel - Blood elliptocytes 1+ ELLIP TOCYT ES 1+ 03/26 8:53 AM CDT [facility] Not Available Not Available 12/11/2024 16:17:43 03/26/20 24 03/26/2024 CBC W Auto Diffe renti al panel - Blood platelets [#/volume] in blood by automated count ADEQUA TE PLT EST. ADEQU ATE 03/26 8:53 AM CDT [facility] Not Available Not Available 12/11/2024 16:17:43 03/26/20 24 03/26/2024 CBC W Auto Diffe renti al panel - Blood interpretati on and review of laboratory results Abnorm al Not Available Not Available 16:17:43 03/26/20 24 03/26/2024 Basic metab olic 2000 panel - Serum or Plasm a glucose [mass/volume ] in serum or plasma 54 text: 70 - 99 mg/dL low GLUCO SE 54 (L) 70 - 99 MG/DL 03/26 8:37 AM CDT [facility] Not Available Not Available 12/11/2024 16:17:43 03/26/20 24 03/26/2024 Basic metab olic 2000 panel - Serum or Plasm a urea nitrogen [mass/volume ] in serum or plasma 15 text: 7 - 18 mg/dL BUN 15 7 - 18 MG/DL 03/26 8:37 AM CDT [facility] Not Available Not Available 12/11/2024 16:17:43 03/26/20 24 03/26/2024 Basic metab olic 2000 panel - Serum or Plasm a creatinine [mass/volume ] in serum or plasma 0.78 text: 0.7 - 1.3 mg/dL CREAT ININE S/P/B 0.78 0.7 - 1.3 MG/DL 03/26 8:37 AM CDT [facility] Not Available Not Available 12/11/2024 16:17:43 03/26/20 24 03/26/2024 Basic metab olic 1999 panel - Serum or Plasm a sodium [moles/volum e] in serum or plasma 137 text: 136 - 145 mmol/L SODIU M S/P/B 137 136 - 145 MMOL/ L 03/26 8:37 AM CDT [facility] Not Available Not Available 12/11/2024 16:17:43 03/26/20 24 03/26/2024 Basic metab olic 1999 panel - Serum or Plasm a potassium [moles/volum e] in serum or plasma 5.3 text: 3.5 - 5.1 mmol/L high POTAS SIUM S/P/B 5.3 (H) 3.5 - 5.1 MMOL/ L 03/26 8:37 AM CDT [facility] Not Available Not Available 12/11/2024 16:17:43 03/26/20 24 03/26/2024 Basic metab olic 1999 panel - Serum or Plasm a chloride [moles/volum e] in serum or plasma 106 text: 100 - 108 mmol/L CHLOR SYLVIA S/P/B 106 100 - 108 MMOL/ L 03/26 8:37 AM CDT [facility] Not Available Not Available 12/11/2024 16:17:43 03/26/20 24 03/26/2024 Basic metab olic 2000 panel - Serum or Plasm a carbon dioxide, total [moles/volum e] in serum or plasma 25.9 text: 21 - 32 mmol/L CO2 25.9 21 - 32 MMOL/ L 03/26 8:37 AM CDT [facility] Not Available Not Available 12/11/2024 16:17:43 03/26/20 24 03/26/2024 Basic metab olic 2000 panel - Serum or Plasm a calcium [mass/volume ] in serum or plasma 8.9 text: 8.5 - 10.1 mg/dL CALCI UM S/P/B 8.9 8.5 - 10.1 MG/DL 03/26 8:37 AM CDT [facility] Not Available Not Available 12/11/2024 16:17:43 03/26/20 24 03/26/2024 Basic metab olic 2000 panel - Serum or Plasm a anion gap in serum or plasma by calculation 5.1 text: 5 - 15 mmol/L ANION GAP 5.1 5 - 15 MMOL/ L 03/26 8:37 AM CDT [facility] Not Available Not Available 12/11/2024 16:17:43 03/26/20 24 03/26/2024 Basic metab olic 2000 panel - Serum or Plasm a urea nitrogen/cre atinine [mass ratio] in serum or plasma 19.2 low: 6high: 26 BUN CREAT ININE RATIO 19.2 6 - 26 03/26 8:37 AM CDT [facility] Not Available Not Available 12/11/2024 16:17:43 03/26/20 24 03/26/2024 Basic metab olic 2000 panel - Serum or Plasm a glomerular filtration rate [volume rate/area] in serum, plasma or blood by creatinine-b ased formula (CKD-epi 2020)/1.73 sq M text: >90 mL/min /1.73 M2 GFR ESTIM ATE >90 >90 ML/ND N/1.7 3 M2 03/26 8:37 AM CDT [facility] Not Available Not Available 12/11/2024 16:17:43 03/26/20 24 03/26/2024 Basic metab olic 2000 panel - Serum or Plasm a interpretati on and review of laboratory results Abnorm al Not Available Not Available 16:17:43 03/26/20 24 03/26/2024 Gluco se [Mass /volu me] in Blood by Autom ated test strip glucose [mass/volume ] in blood by automated test strip 90 mg/dL low: 70mg/d Lhigh: 99mg/d L GLUCO SE POC 90 70 - 99 mg/dL 03/26 6:26 AM CDT [facility] Not Available Not Available 12/11/2024 16:17:43 03/26/20 24 03/26/2024 [place] [Mole s/vol ume] in Plasm a ammonia [moles/volum e] in plasma 52 text: 11 - 32 umol/L high MARYAN [place] 52 (H) 11 - 32 UMOL/ L 03/26 12:29 AM CDT [facility] Not Available Not Available 12/11/2024 16:17:43 03/26/20 24 03/26/2024 [place] [Mole s/vol ume] in Plasm a interpretati on and review of laboratory results Abnorm al Not Available Not Available 16:17:43 03/26/20 24 03/26/2024 Cobal dinh (Norma min B12) [Mass /volu me] in Serum or Plasm a cobalamin (vitamin B12) [mass/volume ] in serum or plasma 646 pg/mL low: 254pg/ mLhigh : 1320pg /mL VITAM IN B12 S/P/B 646 254 - 1,320 PG/ML 03/26 12:35 AM CDT [facility] Not Available Not Available 12/11/2024 16:17:43 03/26/20 24 03/30/2024 Pyrid oxine [Mass /volu me] in Serum or Plasm a pyridoxine [mass/volume ] in serum or plasma 3.6 NG/mL low: 2.1NG/ mLhigh : 21.7NG /mL VITAM IN B6 S/P/B 3.6 2.1 - 21.7 ng/mL 03/30 12:32 PM CDT [facility] Not Available Not Available 12/11/2024 16:17:43 07/30/20 24 03/31/2024 [place] ine [Mole s/vol ume] in Serum or Plasm a thiamine [moles/volum e] in serum or plasma 15 nmol/ L low: 8nmol/ Lhigh: 30nmol /L VITAM IN B1 S/P/B 15 8 - 30 nmol/ L 03/31 10:12 AM CDT [facility] Not Available Not Available 12/11/2024 16:17:43 03/26/20 24 03/26/2024 Compr ehens joseph metab olic 1999 panel - Serum or Plasm a glucose [mass/volume ] in serum or plasma 204 text: 70 - 99 mg/dL high GLUCO SE 204 (H) 70 - 99 MG/DL 03/26 1:00 AM CDT [facility] Not Available Not Available 12/11/2024 16:17:42 03/26/20 24 03/26/2024 Compr ehens joseph metab olic 1999 panel - Serum or Plasm a urea nitrogen [mass/volume ] in serum or plasma 15 text: 7 - 18 mg/dL BUN 15 7 - 18 MG/DL 03/26 1:00 AM CDT [facility] Not Available Not Available 12/11/2024 16:17:42 03/26/20 24 03/26/2024 Compr ehens joseph metab olic 2000 panel - Serum or Plasm a creatinine [mass/volume ] in serum or plasma 0.8 text: 0.7 - 1.3 mg/dL CREAT ININE S/P/B 0.80 0.7 - 1.3 MG/DL 03/26 1:00 AM CDT [facility] Not Available Not Available 12/11/2024 16:17:42 03/26/20 24 03/26/2024 Compr ehens joseph metab olic 2000 panel - Serum or Plasm a sodium [moles/volum e] in serum or plasma 137 text: 136 - 145 mmol/L SODIU M S/P/B 137 136 - 145 MMOL/ L 03/26 1:00 AM CDT [facility] Not Available Not Available 12/11/2024 16:17:42 03/26/20 24 03/26/2024 Compr ehens joseph metab olic 2000 panel - Serum or Plasm a potassium [moles/volum e] in serum or plasma 4.1 text: 3.5 - 5.1 mmol/L POTAS SIUM S/P/B 4.1 3.5 - 5.1 MMOL/ L 03/26 1:00 AM T [facility] Not Available Not Available 12/11/2024 16:17:42 03/26/20 24 03/26/2024 Compr ehens joseph metab olic 2000 panel - Serum or Plasm a chloride [moles/volum e] in serum or plasma 104 text: 100 - 108 mmol/L CHLOR SYLVIA S/P/B 104 100 - 108 MMOL/ L 03/26 1:00 AM T [facility] Not Available Not Available 12/11/2024 16:17:42 03/26/20 24 03/26/2024 Compr ehens joseph metab olic 2000 panel - Serum or Plasm a carbon dioxide, total [moles/volum e] in serum or plasma 26.7 text: 21 - 32 mmol/L CO2 26.7 21 - 32 MMOL/ L 03/26 1:00 AM T [facility] Not Available Not Available 12/11/2024 16:17:42 03/26/20 24 03/26/2024 Compr ehens joseph metab olic 2000 panel - Serum or Plasm a calcium [mass/volume ] in serum or plasma 8.4 text: 8.5 - 10.1 mg/dL low CALCI UM S/P/B 8.4 (L) 8.5 - 10.1 MG/DL 03/26 1:00 AM CDT [facility] Not Available Not Available 12/11/2024 16:17:42 03/26/20 24 03/26/2024 Compr ehens joseph metab olic 2000 panel - Serum or Plasm a bilirubin.to kelly [mass/volume ] in serum or plasma 0.7 text: 0.2 - 1.2 mg/dL BILIR UBIN TOTAL S/P/B 0.7 0.2 - 1.2 MG/DL 03/26 1:00 AM CDT [facility] Not Available Not Available 12/11/2024 16:17:42 03/26/20 24 03/26/2024 Compr ehens joseph metab olic 1999 panel - Serum or Plasm a protein [mass/volume ] in serum or plasma 5.6 text: 6.4 - 8.2 g/dL low TOTAL PROTE IN S/P/B 5.6 (L) 6.4 - 8.2 G/DL 03/26 1:00 AM CDT [facility] Not Available Not Available 12/11/2024 16:17:42 03/26/20 24 03/26/2024 Compr ehens joseph metab olic 1999 panel - Serum or Plasm a albumin [mass/volume ] in serum or plasma 2.6 text: 3.4 - 5.0 g/dL low ALBUM IN S/P/B 2.6 (L) 3.4 - 5.0 G/DL 03/26 1:00 AM CDT [facility] Not Available Not Available 12/11/2024 16:17:42 03/26/20 24 03/26/2024 Compr ehens joseph metab olic 1999 panel - Serum or Plasm a aspartate aminotransfe rase [enzymatic activity/vol ume] in serum or plasma 19 U/L low: 15U/Lh igh: 37U/L AST 19 15 - 37 U/L 03/26 1:00 AM CDT [facility] Not Available Not Available 12/11/2024 16:17:42 03/26/20 24 03/26/2024 Compr ehens joseph metab olic 2000 panel - Serum or Plasm a alanine aminotransfe rase [enzymatic activity/vol ume] in serum or plasma 31 U/L low: 16U/Lh igh: 60U/L ALT 31 16 - 60 U/L 03/26 1:00 AM CDT [facility] Not Available Not Available 12/11/2024 16:17:42 03/26/20 24 03/26/2024 Compr ehens joseph metab olic 1999 panel - Serum or Plasm a alkaline phosphatase [enzymatic activity/vol ume] in serum or plasma 104 U/L low: 50U/Lh igh: 136U/L ALKAL INE PHOSP HATAS E S/P/B 104 50 - 136 U/L 03/26 1:00 AM CDT [facility] Not Available Not Available 12/11/2024 16:17:42 03/26/20 24 03/26/2024 Compr ehens joseph metab olic 1999 panel - Serum or Plasm a anion gap in serum or plasma by calculation 6.3 text: 5 - 15 mmol/L ANION GAP 6.3 5 - 15 MMOL/ L 03/26 1:00 AM CDT [facility] Not Available Not Available 12/11/2024 16:17:42 03/26/20 24 03/26/2024 Compr ehens joseph metab olic 1999 panel - Serum or Plasm a urea nitrogen/cre atinine [mass ratio] in serum or plasma 18.7 low: 6high: 26 BUN CREAT ININE RATIO 18.7 6 - 26 03/26 1:00 AM T [facility] Not Available Not Available 12/11/2024 16:17:42 03/26/20 24 03/26/2024 Compr ehens joseph metab olic 1999 panel - Serum or Plasm a albumin/glob ulin [mass ratio] in serum or plasma 0.9 text: 1.0 - 2.0 ratio low A/G RATIO 0.9 (L) 1.0 - 2.0 RATIO 03/26 1:00 AM T [facility] Not Available Not Available 12/11/2024 16:17:42 03/26/20 24 03/26/2024 Compr ehens joseph metab olic 2000 panel - Serum or Plasm a glomerular filtration rate [volume rate/area] in serum, plasma or blood by creatinine-b ased formula (CKD-epi 2020)/1.73 sq M text: >90 mL/min /1.73 M2 GFR ESTIM ATE >90 >90 ML/ND N/1.7 3 M2 03/26 1:00 AM CDT [facility] Not Available Not Available 12/11/2024 16:17:42 03/26/2003/26/2024 Compr ehens joseph metab olic 2000 panel - Serum or Plasm a interpretati on and review of laboratory results Abnorm al Not Available Not Available 16:17:42 03/26/20 24 03/26/2024 CBC W Auto Diffe renti al panel - Blood leukocytes [#/volume] in blood by automated count 5.53 text: 4.5 - 11.0 x10'3/ uL WBC 5.53 4.5 - 11.0 x10'3 /uL 03/26 12:10 AM CDT [facility] Not Available Not Available 12/11/2024 16:17:42 03/26/20 24 03/26/2024 CBC W Auto Diffe renti al panel - Blood erythrocytes [#/volume] in blood by automated count 3.91 text: 4.70 - 6.10 x10'6/ uL low RBC 3.91 (L) 4.70 - 6.10 x10'6 /uL 03/26 12:10 AM CDT [facility] Not Available Not Available 12/11/2024 16:17:42 03/26/20 24 03/26/2024 CBC W Auto Diffe renti al panel - Blood hemoglobin [mass/volume ] in blood 9.1 text: 14.0 - 18.0 g/dL low HGB 9.1 (L) 14.0 - 18.0 G/DL 03/26 12:10 AM CDT [facility] Not Available Not Available 12/11/2024 16:17:42 03/26/20 24 03/26/2024 CBC W Auto Diffe renti al panel - Blood hematocrit [volume fraction] of blood by calculation 31.2 % low: 43%hig h: 54% low HCT 31.2 (L) 43.0 - 54.0 % 03/26 12:10 AM CDT [facility] Not Available Not Available 12/11/2024 16:17:42 03/26/20 24 03/26/2024 CBC W Auto Diffe renti al panel - Blood MCV [entitic mean volume] in red blood cells 79.8 text: 80.0 - 94.0 fL low MCV 79.8 (L) 80.0 - 94.0 FL 03/26 12:10 AM CDT [facility] Not Available Not Available 12/11/2024 16:17:42 03/26/20 24 03/26/2024 CBC W Auto Diffe renti al panel - Blood MCH [entitic mass] 23.3 pg low: 27pghi gh: 31pg low MCH 23.3 (L) 27.0 - 31.0 PG 03/26 12:10 AM CDT [facility] Not Available Not Available 12/11/2024 16:17:42 03/26/20 24 03/26/2024 CBC W Auto Diffe renti al panel - Blood MCHC [entitic mass/volume] in red blood cells 29.2 text: 32.0 - 36.0 g/dL low MCHC 29.2 (L) 32.0 - 36.0 G/DL 03/26 12:10 AM CDT [facility] Not Available Not Available 12/11/2024 16:17:42 03/26/20 24 03/26/2024 CBC W Auto Diffe renti al panel - Blood RDW 22.7 % low: 11.5%h igh: 14.5% high RDW 22.7 (H) 11.5 - 14.5 % 03/26 12:10 AM CDT [facility] Not Available Not Available 12/11/2024 16:17:42 03/26/20 24 03/26/2024 CBC W Auto Diffe renti al panel - Blood platelets [#/volume] in blood 278 text: 130 - 400 x10'3/ uL PLT 278 130 - 400 x10'3 /uL 03/26 12:10 AM CDT [facility] Not Available Not Available 12/11/2024 16:17:42 03/26/20 24 03/26/2024 CBC W Auto Diffe renti al panel - Blood platelet [entitic mean volume] in blood 10.6 text: 9.3 - 12.2 fL MPV 10.6 9.3 - 12.2 FL 03/26 12:10 AM CDT [facility] Not Available Not Available 12/11/2024 16:17:42 03/26/20 24 03/26/2024 CBC W Auto Diffe renti al panel - Blood differential cell count method - blood AUTOMA ANIBAL DIFFER ENTIAL DIFFE RENTI AL TYPE AUTOM ATED DIFFE RENTI AL 03/26 12:36 AM CDT [facility] Not Available Not Available 12/11/2024 16:17:42 03/26/20 24 03/26/2024 CBC W Auto Diffe renti al panel - Blood neutrophils/ leukocytes in blood by automated count 72 % NEUTR OPHIL S % 72.0 % 03/26 12:36 AM CDT [facility] Not Available Not Available 12/11/2024 16:17:42 03/26/20 24 03/26/2024 CBC W Auto Diffe renti al panel - Blood lymphocytes/ leukocytes in blood by automated count 14.8 % LYMPH OCYTE S % 14.8 % 03/26 12:36 AM CDT [facility] Not Available Not Available 12/11/2024 16:17:42 03/26/20 24 03/26/2024 CBC W Auto Diffe renti al panel - Blood monocytes/le ukocytes in blood by automated count 11.6 % MONOC YTES % 11.6 % 03/26 12:36 AM CDT [facility] Not Available Not Available 12/11/2024 16:17:42 03/26/20 24 03/26/2024 CBC W Auto Diffe renti al panel - Blood eosinophils/ leukocytes in blood by automated count 0.7 % EOSIN OPHIL S 0.7 % 03/26 12:36 AM CDT [facility] Not Available Not Available 12/11/2024 16:17:42 03/26/20 24 03/26/2024 CBC W Auto Diffe renti al panel - Blood basophils/le ukocytes in blood by automated count 0.2 % BASOP HILS 0.2 % 03/26 12:36 AM CDT [facility] Not Available Not Available 12/11/2024 16:17:42 03/26/20 24 03/26/2024 CBC W Auto Diffe renti al panel - Blood immature granulocytes /leukocytes in blood by automated count 0.7 % IMMAT URE GRANS % 0.7 % 03/26 12:36 AM CDT [facility] Not Available Not Available 12/11/2024 16:17:42 03/26/20 24 03/26/2024 CBC W Auto Diffe renti al panel - Blood neutrophils [#/volume] in blood 3.98 text: 1.80 - 7.70 x10'3/ uL ABS. NEUTR OPHIL S 3.98 1.80 - 7.70 x10'3 /uL 03/26 12:36 AM CDT [facility] Not Available Not Available 12/11/2024 16:17:42 03/26/20 24 03/26/2024 CBC W Auto Diffe renti al panel - Blood lymphocytes [#/volume] in blood 0.82 text: 1.00 - 4.80 x10'3/ uL low ABS. LYMPH OCYTE S 0.82 (L) 1.00 - 4.80 x10'3 /uL 03/26 12:36 AM CDT [facility] Not Available Not Available 12/11/2024 16:17:42 03/26/20 24 03/26/2024 CBC W Auto Diffe renti al panel - Blood monocytes [#/volume] in blood 0.64 text: 0.30 - 0.82 x10'3/ uL ABS. MONOC YTES 0.64 0.30 - 0.82 x10'3 /uL 03/26 12:36 AM CDT [facility] Not Available Not Available 12/11/2024 16:17:42 03/26/20 24 03/26/2024 CBC W Auto Diffe renti al panel - Blood eosinophils [#/volume] in blood 0.04 text: 0.04 - 0.54 x10'3/ uL ABS. EOSIN OPHIL S 0.04 0.04 - 0.54 x10'3 /uL 03/26 12:36 AM CDT [facility] Not Available Not Available 12/11/2024 16:17:42 03/26/20 24 03/26/2024 CBC W Auto Diffe renti al panel - Blood basophils [#/volume] in blood 0.01 text: 0.01 - 0.08 x10'3/ uL ABS. BASOP HILS 0.01 0.01 - 0.08 x10'3 /uL 03/26 12:36 AM CDT [facility] Not Available Not Available 12/11/2024 16:17:42 03/26/20 24 03/26/2024 CBC W Auto Diffe renti al panel - Blood immature granulocytes [#/volume] in blood 0.04 text: 0.00 - 0.49 x10'3/ uL ABS. IMMAT URE GRANU LOCYT ES 0.04 0.00 - 0.49 x10'3 /uL 03/26 12:36 AM CDT [facility] Not Available Not Available 12/11/2024 16:17:42 03/26/20 24 03/26/2024 CBC W Auto Diffe renti al panel - Blood erythrocytes [morphology] in blood by automated count SLIDE REVIEW ED RBC MORPH OLOGY SLIDE REVIE WED 03/26 12:36 AM CDT [facility] Not Available Not Available 12/11/2024 16:17:42 03/26/20 24 03/26/2024 CBC W Auto Diffe renti al panel - Blood anisocytosis [presence] in blood 2+ ANISO 2+ 03/26 12:36 AM CDT [facility] Not Available Not Available 12/11/2024 16:17:42 03/26/20 24 03/26/2024 CBC W Auto Diffe renti al panel - Blood poikilocytos is [presence] in blood by automated count 1+ POIKL O 1+ 03/26 12:36 AM CDT [facility] Not Available Not Available 12/11/2024 16:17:42 03/26/20 24 03/26/2024 CBC W Auto Diffe renti al panel - Blood hypochromia [presence] in blood 1+ HYPOC HROMA JAZMYNE 1+ 03/26 12:36 AM CDT [facility] Not Available Not Available 12/11/2024 16:17:42 03/26/20 24 03/26/2024 CBC W Auto Diffe renti al panel - Blood polychromasi a [presence] in blood by light microscopy 1+ POLY 1+ 03/26 12:36 AM CDT [facility] Not Available Not Available 12/11/2024 16:17:42 03/26/20 24 03/26/2024 CBC W Auto Diffe renti al panel - Blood acanthocytes [presence] in blood by light microscopy 1+ ACANT HOCYT ES 1+ 03/26 12:36 AM CDT [facility] Not Available Not Available 12/11/2024 16:17:42 03/26/20 24 03/26/2024 CBC W Auto Diffe renti al panel - Blood platelets [#/volume] in blood by automated count ADEQUA TE PLT EST. ADEQU ATE 03/26 12:36 AM CDT [facility] Not Available Not Available 12/11/2024 16:17:42 03/26/20 24 03/26/2024 CBC W Auto Diffe renti al panel - Blood interpretati on and review of laboratory results Abnorm al Not Available Not Available 16:17:42 03/27/20 24 03/27/2024 Gluco se [Mass /volu me] in Blood by Autom ated test strip glucose [mass/volume ] in blood by automated test strip 194 mg/dL low: 70mg/d Lhigh: 99mg/d L high GLUCO SE POC 194 (H) 70 - 99 mg/dL 03/27 8:16 PM CDT [facility] Not Available Not Available 12/11/2024 16:17:44 03/27/20 24 03/27/2024 Gluco se [Mass /volu me] in Blood by Autom ated test strip interpretati on and review of laboratory results Abnorm al Not Available Not Available 16:17:44 03/27/20 24 03/27/2024 Gluco se [Mass /volu me] in Blood by Autom ated test strip glucose [mass/volume ] in blood by automated test strip 209 mg/dL low: 70mg/d Lhigh: 99mg/d L high GLUCO SE POC 209 (H) 70 - 99 mg/dL 03/27 4:53 PM CDT [facility] Not Available Not Available 12/11/2024 16:17:44 03/27/20 24 03/27/2024 Gluco se [Mass /volu me] in Blood by Autom ated test strip interpretati on and review of laboratory results Abnorm al Not Available Not Available 16:17:44 03/27/20 24 03/27/2024 Gluco se [Mass /volu me] in Blood by Autom ated test strip glucose [mass/volume ] in blood by automated test strip 242 mg/dL low: 70mg/d Lhigh: 99mg/d L high GLUCO SE POC 242 (H) 70 - 99 mg/dL 03/27 12:29 PM CDT [facility] Not Available Not Available 12/11/2024 16:17:44 03/27/20 24 03/27/2024 Gluco se [Mass /volu me] in Blood by Autom ated test strip interpretati on and review of laboratory results Abnorm al Not Available Not Available 16:17:44 03/27/20 24 03/27/2024 CBC W Auto Diffe renti al panel - Blood leukocytes [#/volume] in blood by automated count 5.45 text: 4.5 - 11.0 x10'3/ uL WBC 5.45 4.5 - 11.0 x10'3 /uL 03/27 7:43 AM CDT [facility] Not Available Not Available 12/11/2024 16:17:44 03/27/20 24 03/27/2024 CBC W Auto Diffe renti al panel - Blood erythrocytes [#/volume] in blood by automated count 4.07 text: 4.70 - 6.10 x10'6/ uL low RBC 4.07 (L) 4.70 - 6.10 x10'6 /uL 03/27 7:43 AM CDT [facility] Not Available Not Available 12/11/2024 16:17:44 03/27/20 24 03/27/2024 CBC W Auto Diffe renti al panel - Blood hemoglobin [mass/volume ] in blood 9.2 text: 14.0 - 18.0 g/dL low HGB 9.2 (L) 14.0 - 18.0 G/DL 03/27 7:43 AM CDT [facility] Not Available Not Available 12/11/2024 16:17:44 03/27/20 24 03/27/2024 CBC W Auto Diffe renti al panel - Blood hematocrit [volume fraction] of blood by calculation 32.8 % low: 43%hig h: 54% low HCT 32.8 (L) 43.0 - 54.0 % 03/27 7:43 AM CDT [facility] Not Available Not Available 12/11/2024 16:17:44 03/27/20 24 03/27/2024 CBC W Auto Diffe renti al panel - Blood MCV [entitic mean volume] in red blood cells 80.6 text: 80.0 - 94.0 fL MCV 80.6 80.0 - 94.0 FL 03/27 7:43 AM CDT [facility] Not Available Not Available 12/11/2024 16:17:44 03/27/20 24 03/27/2024 CBC W Auto Diffe renti al panel - Blood MCH [entitic mass] 22.6 pg low: 27pghi gh: 31pg low MCH 22.6 (L) 27.0 - 31.0 PG 03/27 7:43 AM CDT [facility] Not Available Not Available 12/11/2024 16:17:44 03/27/20 24 03/27/2024 CBC W Auto Diffe renti al panel - Blood MCHC [entitic mass/volume] in red blood cells 28 text: 32.0 - 36.0 g/dL low MCHC 28.0 (L) 32.0 - 36.0 G/DL 03/27 7:43 AM CDT [facility] Not Available Not Available 12/11/2024 16:17:44 03/27/20 24 03/27/2024 CBC W Auto Diffe renti al panel - Blood RDW 23.7 % low: 11.5%h igh: 14.5% high RDW 23.7 (H) 11.5 - 14.5 % 03/27 7:43 AM CDT [facility] Not Available Not Available 12/11/2024 16:17:44 03/27/20 24 03/27/2024 CBC W Auto Diffe renti al panel - Blood platelets [#/volume] in blood 254 text: 130 - 400 x10'3/ uL PLT 254 130 - 400 x10'3 /uL 03/27 7:43 AM CDT [facility] Not Available Not Available 12/11/2024 16:17:44 03/27/20 24 03/27/2024 CBC W Auto Diffe renti al panel - Blood platelet [entitic mean volume] in blood 10.2 text: 9.3 - 12.2 fL MPV 10.2 9.3 - 12.2 FL 03/27 7:43 AM CDT [facility] Not Available Not Available 12/11/2024 16:17:44 03/27/20 24 03/27/2024 CBC W Auto Diffe renti al panel - Blood differential cell count method - blood MANUAL DIFFER ENTIAL DIFFE RENTI AL TYPE MANUA L DIFFE RENTI AL 03/27 8:18 AM CDT [facility] Not Available Not Available 12/11/2024 16:17:44 03/27/20 24 03/27/2024 CBC W Auto Diffe renti al panel - Blood segmented neutrophils/ leukocytes in blood by manual count 79 % SEG NEUTR OPHIL S 79 % 03/27 8:18 AM CDT [facility] Not Available Not Available 12/11/2024 16:17:44 03/27/20 24 03/27/2024 CBC W Auto Diffe renti al panel - Blood lymphocytes/ leukocytes in blood by manual count 12 % LYMPH OCYTE S 12 % 03/27 8:18 AM CDT [facility] Not Available Not Available 12/11/2024 16:17:44 03/27/20 24 03/27/2024 CBC W Auto Diffe renti al panel - Blood monocytes/le ukocytes in blood by manual count 7 % MONOC YTES 7 % 03/27 8:18 AM CDT [facility] Not Available Not Available 12/11/2024 16:17:44 03/27/20 24 03/27/2024 CBC W Auto Diffe renti al panel - Blood eosinophils/ leukocytes in blood by manual count 1 % EOSIN OPHIL S 1 % 03/27 8:18 AM CDT [facility] Not Available Not Available 12/11/2024 16:17:44 03/27/20 24 03/27/2024 CBC W Auto Diffe renti al panel - Blood basophils/le ukocytes in blood 1 % BASOP HILS 1 % 03/27 8:18 AM CDT [facility] Not Available Not Available 12/11/2024 16:17:44 03/27/20 24 03/27/2024 CBC W Auto Diffe renti al panel - Blood neutrophils [#/volume] in blood 4.31 text: 1.80 - 7.70 x10'3/ uL ABS. NEUTR OPHIL S 4.31 1.80 - 7.70 x10'3 /uL 03/27 8:18 AM CDT [facility] Not Available Not Available 12/11/2024 16:17:44 03/27/20 24 03/27/2024 CBC W Auto Diffe renti al panel - Blood lymphocytes [#/volume] in blood 0.65 text: 1.00 - 4.80 x10'3/ uL low ABS. LYMPH OCYTE S 0.65 (L) 1.00 - 4.80 x10'3 /uL 03/27 8:18 AM CDT [facility] Not Available Not Available 12/11/2024 16:17:44 03/27/20 24 03/27/2024 CBC W Auto Diffe renti al panel - Blood monocytes [#/volume] in blood 0.38 text: 0.30 - 0.82 x10'3/ uL ABS. MONOC YTES 0.38 0.30 - 0.82 x10'3 /uL 03/27 8:18 AM CDT [facility] Not Available Not Available 12/11/2024 16:17:44 03/27/20 24 03/27/2024 CBC W Auto Diffe renti al panel - Blood eosinophils [#/volume] in blood 0.05 text: 0.04 - 0.54 x10'3/ uL ABS. EOSIN OPHIL S 0.05 0.04 - 0.54 x10'3 /uL 03/27 8:18 AM CDT [facility] Not Available Not Available 12/11/2024 16:17:44 03/27/20 24 03/27/2024 CBC W Auto Diffe renti al panel - Blood basophils [#/volume] in blood 0.05 text: 0.01 - 0.08 x10'3/ uL ABS. BASOP HILS 0.05 0.01 - 0.08 x10'3 /uL 03/27 8:18 AM CDT [facility] Not Available Not Available 12/11/2024 16:17:44 03/27/20 24 03/27/2024 CBC W Auto Diffe renti al panel - Blood erythrocytes [morphology] in blood by automated count SLIDE REVIEW ED RBC MORPH OLOGY SLIDE REVIE WED 03/27 8:18 AM CDT [facility] Not Available Not Available 12/11/2024 16:17:44 03/27/20 24 03/27/2024 CBC W Auto Diffe renti al panel - Blood anisocytosis [presence] in blood 2+ ANISO 2+ 03/27 8:18 AM CDT [facility] Not Available Not Available 12/11/2024 16:17:44 03/27/20 24 03/27/2024 CBC W Auto Diffe renti al panel - Blood polychromasi a [presence] in blood by light microscopy 1+ POLY 1+ 03/27 8:18 AM CDT [facility] Not Available Not Available 12/11/2024 16:17:44 03/27/20 24 03/27/2024 CBC W Auto Diffe renti al panel - Blood nimisha 1+ NIMISHA 1+ 03/27 8:18 AM CDT [facility] Not Available Not Available 12/11/2024 16:17:44 03/27/20 24 03/27/2024 CBC W Auto Diffe renti al panel - Blood elliptocytes 1+ ELLIP TOCYT ES 1+ 03/27 8:18 AM CDT [facility] Not Available Not Available 12/11/2024 16:17:44 03/27/20 24 03/27/2024 CBC W Auto Diffe renti al panel - Blood platelets [#/volume] in blood by automated count ADEQUA TE PLT EST. ADEQU ATE 03/27 8:18 AM CDT [facility] Not Available Not Available 12/11/2024 16:17:44 03/27/20 24 03/27/2024 CBC W Auto Diffe renti al panel - Blood interpretati on and review of laboratory results Abnorm al Not Available Not Available 16:17:44 03/27/20 24 03/27/2024 Basic metab olic 2000 panel - Serum or Plasm a glucose [mass/volume ] in serum or plasma 76 text: 70 - 99 mg/dL GLUCO SE 76 70 - 99 MG/DL 03/27 8:[address] [facility] Not Available Not Available 12/11/2024 16:17:44 03/27/20 24 03/27/2024 Basic metab olic 2000 panel - Serum or Plasm a urea nitrogen [mass/volume ] in serum or plasma 18 text: 7 - 18 mg/dL BUN 18 7 - 18 MG/DL 03/27 8:08 AM T [facility] Not Available Not Available 12/11/2024 16:17:44 03/27/20 24 03/27/2024 Basic metab olic 2000 panel - Serum or Plasm a creatinine [mass/volume ] in serum or plasma 0.8 text: 0.7 - 1.3 mg/dL CREAT ININE S/P/B 0.80 0.7 - 1.3 MG/DL 03/27 8:08 AM CDT [facility] Not Available Not Available 12/11/2024 16:17:44 03/27/20 24 03/27/2024 Basic metab olic 2000 panel - Serum or Plasm a sodium [moles/volum e] in serum or plasma 137 text: 136 - 145 mmol/L SODIU M S/P/B 137 136 - 145 MMOL/ L 03/27 8:08 AM T [facility] Not Available Not Available 12/11/2024 16:17:44 03/27/20 24 03/27/2024 Basic metab olic 2000 panel - Serum or Plasm a potassium [moles/volum e] in serum or plasma 4.1 text: 3.5 - 5.1 mmol/L POTAS SIUM S/P/B 4.1 3.5 - 5.1 MMOL/ L 03/27 8:08 AM CDT [facility] Not Available Not Available 12/11/2024 16:17:44 03/27/20 24 03/27/2024 Basic metab olic 2000 panel - Serum or Plasm a chloride [moles/volum e] in serum or plasma 106 text: 100 - 108 mmol/L CHLOR SYLVIA S/P/B 106 100 - 108 MMOL/ L 03/27 8:[address] [facility] Not Available Not Available 12/11/2024 16:17:44 03/27/20 24 03/27/2024 Basic metab olic 2000 panel - Serum or Plasm a carbon dioxide, total [moles/volum e] in serum or plasma 29.3 text: 21 - 32 mmol/L CO2 29.3 21 - 32 MMOL/ L 03/27 8:08 AM T [facility] Not Available Not Available 12/11/2024 16:17:44 03/27/20 24 03/27/2024 Basic metab olic 2000 panel - Serum or Plasm a calcium [mass/volume ] in serum or plasma 9.1 text: 8.5 - 10.1 mg/dL CALCI UM S/P/B 9.1 8.5 - 10.1 MG/DL 03/27 8:08 AM CDT [facility] Not Available Not Available 12/11/2024 16:17:44 03/27/20 24 03/27/2024 Basic metab olic 2000 panel - Serum or Plasm a anion gap in serum or plasma by calculation 1.7 text: 5 - 15 mmol/L low ANION GAP 1.7 (L) 5 - 15 MMOL/ L 03/27 8:08 AM CDT [facility] Not Available Not Available 12/11/2024 16:17:44 03/27/20 24 03/27/2024 Basic metab olic 2000 panel - Serum or Plasm a urea nitrogen/cre atinine [mass ratio] in serum or plasma 22.4 low: 6high: 26 BUN CREAT ININE RATIO 22.4 6 - 26 03/27 8:08 AM CDT [facility] Not Available Not Available 12/11/2024 16:17:44 03/27/20 24 03/27/2024 Basic metab olic 2000 panel - Serum or Plasm a glomerular filtration rate [volume rate/area] in serum, plasma or blood by creatinine-b ased formula (CKD-epi 2020)/1.73 sq M text: >90 mL/min /1.73 M2 GFR ESTIM ATE >90 >90 ML/ND N/1.7 3 M2 03/27 8:08 AM CDT [facility] Not Available Not Available 12/11/2024 16:17:44 03/27/20 24 03/27/2024 Basic metab olic 2000 panel - Serum or Plasm a interpretati on and review of laboratory results Abnorm al Not Available Not Available 16:17:44 03/27/20 24 03/27/2024 Hepat itis 1996 panel - Serum hepatitis B virus surface Ag [presence] in serum NON-RE ACTIVE text: non-re active HEPAT ITIS B SURFA CE AG NON-R EACTI VE NON-R EACTI VE 03/27 8:22 AM CDT [facility] Not Available Not Available 11/05/2024 12:09:08 03/27/20 24 03/27/2024 Hepat itis 1996 panel - Serum hepatitis B virus core Ab [presence] in serum NON-RE ACTIVE text: non-re active HEP B CORE TOTAL AB NON-R EACTI VE NON-R EACTI VE 03/27 8:50 AM CDT [facility] Not Available Not Available 11/05/2024 12:09:08 03/27/20 24 03/27/2024 Hepat itis 1996 panel - Serum hepatitis B virus surface Ab [presence] in serum NON-RE ACTIVE HEP B SURFA CE AB NON-R EACTI VE 03/27 9:34 AM CDT [facility] Not Available Not Available 11/05/2024 12:09:08 03/27/20 24 03/27/2024 Hepat itis 1996 panel - Serum hepatitis A virus IgM Ab [presence] in serum NON-RE ACTIVE text: non-re active HAV IGM NON-R EACTI VE NON-R EACTI VE 03/27 8:51 AM CDT [facility] Not Available Not Available 11/05/2024 12:09:08 03/27/20 24 03/27/2024 Hepat itis 1996 panel - Serum hepatitis C virus Ab [presence] in serum NON-RE ACTIVE text: non-re active HEPAT ITIS C AB NON-R EACTI VE NON-R EACTI VE 03/27 8:50 AM CDT [facility] Not Available Not Available 11/05/2024 12:09:08 03/27/20 24 03/27/2024 Gluco se [Mass /volu me] in Blood by Autom ated test strip glucose [mass/volume ] in blood by automated test strip 76 mg/dL low: 70mg/d Lhigh: 99mg/d L GLUCO SE POC 76 70 - 99 mg/dL 03/27 6:44 AM CDT [facility] Not Available Not Available 12/11/2024 16:17:44 03/28/20 24 03/28/2024 Gluco se [Mass /volu me] in Blood by Autom ated test strip glucose [mass/volume ] in blood by automated test strip 227 mg/dL low: 70mg/d Lhigh: 99mg/d L high GLUCO SE POC 227 (H) 70 - 99 mg/dL 03/28 8:20 PM CDT [facility] Not Available Not Available 12/11/2024 16:17:45 03/28/20 24 03/28/2024 Gluco se [Mass /volu me] in Blood by Autom ated test strip interpretati on and review of laboratory results Abnorm al Not Available Not Available 16:17:45 03/28/20 24 03/28/2024 Gluco se [Mass /volu me] in Blood by Autom ated test strip glucose [mass/volume ] in blood by automated test strip 137 mg/dL low: 70mg/d Lhigh: 99mg/d L high GLUCO SE POC 137 (H) 70 - 99 mg/dL 03/28 5:16 PM CDT [facility] Not Available Not Available 12/11/2024 16:17:45 03/28/20 24 03/28/2024 Gluco se [Mass /volu me] in Blood by Autom ated test strip interpretati on and review of laboratory results Abnorm al Not Available Not Available 16:17:45 03/28/20 24 03/28/2024 Gluco se [Mass /volu me] in Blood by Autom ated test strip glucose [mass/volume ] in blood by automated test strip 200 mg/dL low: 70mg/d Lhigh: 99mg/d L high GLUCO SE POC 200 (H) 70 - 99 mg/dL 03/28 11:47 AM CDT [facility] Not Available Not Available 12/11/2024 16:17:45 03/28/20 24 03/28/2024 Gluco se [Mass /volu me] in Blood by Autom ated test strip interpretati on and review of laboratory results Abnorm al Not Available Not Available 16:17:45 03/28/20 24 03/28/2024 CBC W Auto Diffe renti al panel - Blood leukocytes [#/volume] in blood by automated count 5.47 text: 4.5 - 11.0 x10'3/ uL WBC 5.47 4.5 - 11.0 x10'3 /uL 03/28 8:45 AM CDT [facility] Not Available Not Available 12/11/2024 16:17:44 03/28/20 24 03/28/2024 CBC W Auto Diffe renti al panel - Blood erythrocytes [#/volume] in blood by automated count 3.97 text: 4.70 - 6.10 x10'6/ uL low RBC 3.97 (L) 4.70 - 6.10 x10'6 /uL 03/28 8:45 AM CDT [facility] Not Available Not Available 12/11/2024 16:17:44 03/28/20 24 03/28/2024 CBC W Auto Diffe renti al panel - Blood hemoglobin [mass/volume ] in blood 9.1 text: 14.0 - 18.0 g/dL low HGB 9.1 (L) 14.0 - 18.0 G/DL 03/28 8:45 AM CDT [facility] Not Available Not Available 12/11/2024 16:17:44 03/28/20 24 03/28/2024 CBC W Auto Diffe renti al panel - Blood hematocrit [volume fraction] of blood by calculation 32.1 % low: 43%hig h: 54% low HCT 32.1 (L) 43.0 - 54.0 % 03/28 8:45 AM CDT [facility] Not Available Not Available 12/11/2024 16:17:44 03/28/20 24 03/28/2024 CBC W Auto Diffe renti al panel - Blood MCV [entitic mean volume] in red blood cells 80.9 text: 80.0 - 94.0 fL MCV 80.9 80.0 - 94.0 FL 03/28 8:45 AM CDT [facility] Not Available Not Available 12/11/2024 16:17:44 03/28/20 24 03/28/2024 CBC W Auto Diffe renti al panel - Blood MCH [entitic mass] 22.9 pg low: 27pghi gh: 31pg low MCH 22.9 (L) 27.0 - 31.0 PG 03/28 8:45 AM CDT [facility] Not Available Not Available 12/11/2024 16:17:44 03/28/2003/28/2024 CBC W Auto Diffe renti al panel - Blood MCHC [entitic mass/volume] in red blood cells 28.3 text: 32.0 - 36.0 g/dL low MCHC 28.3 (L) 32.0 - 36.0 G/DL 03/28 8:45 AM CDT [facility] Not Available Not Available 12/11/2024 16:17:44 03/28/20 24 03/28/2024 CBC W Auto Diffe renti al panel - Blood RDW 24.1 % low: 11.5%h igh: 14.5% high RDW 24.1 (H) 11.5 - 14.5 % 03/28 8:45 AM CDT [facility] Not Available Not Available 12/11/2024 16:17:44 03/28/20 24 03/28/2024 CBC W Auto Diffe renti al panel - Blood platelets [#/volume] in blood 235 text: 130 - 400 x10'3/ uL PLT 235 130 - 400 x10'3 /uL 03/28 8:45 AM CDT [facility] Not Available Not Available 12/11/2024 16:17:44 03/28/20 24 03/28/2024 CBC W Auto Diffe renti al panel - Blood platelet [entitic mean volume] in blood 10 text: 9.3 - 12.2 fL MPV 10.0 9.3 - 12.2 FL 03/28 8:45 AM CDT [facility] Not Available Not Available 12/11/2024 16:17:44 03/28/20 24 03/28/2024 CBC W Auto Diffe renti al panel - Blood differential cell count method - blood AUTOMA ANIBAL DIFFER ENTIAL DIFFE RENTI AL TYPE AUTOM ATED DIFFE RENTI AL 03/28 8:46 AM CDT [facility] Not Available Not Available 12/11/2024 16:17:44 03/28/20 24 03/28/2024 CBC W Auto Diffe renti al panel - Blood neutrophils/ leukocytes in blood by automated count 67.9 % NEUTR OPHIL S % 67.9 % 03/28 8:46 AM CDT [facility] Not Available Not Available 12/11/2024 16:17:44 03/28/20 24 03/28/2024 CBC W Auto Diffe renti al panel - Blood lymphocytes/ leukocytes in blood by automated count 17 % LYMPH OCYTE S % 17.0 % 03/28 8:46 AM CDT [facility] Not Available Not Available 12/11/2024 16:17:44 03/28/20 24 03/28/2024 CBC W Auto Diffe renti al panel - Blood monocytes/le ukocytes in blood by automated count 13.5 % MONOC YTES % 13.5 % 03/28 8:46 AM CDT [facility] Not Available Not Available 12/11/2024 16:17:44 03/28/20 24 03/28/2024 CBC W Auto Diffe renti al panel - Blood eosinophils/ leukocytes in blood by automated count 0.7 % EOSIN OPHIL S 0.7 % 03/28 8:46 AM CDT [facility] Not Available Not Available 12/11/2024 16:17:44 03/28/20 24 03/28/2024 CBC W Auto Diffe renti al panel - Blood basophils/le ukocytes in blood by automated count 0.4 % BASOP HILS 0.4 % 03/28 8:46 AM CDT [facility] Not Available Not Available 12/11/2024 16:17:44 03/28/20 24 03/28/2024 CBC W Auto Diffe renti al panel - Blood immature granulocytes /leukocytes in blood by automated count 0.5 % IMMAT URE GRANS % 0.5 % 03/28 8:46 AM CDT [facility] Not Available Not Available 12/11/2024 16:17:44 03/28/20 24 03/28/2024 CBC W Auto Diffe renti al panel - Blood neutrophils [#/volume] in blood 3.71 text: 1.80 - 7.70 x10'3/ uL ABS. NEUTR OPHIL S 3.71 1.80 - 7.70 x10'3 /uL 03/28 8:46 AM CDT [facility] Not Available Not Available 12/11/2024 16:17:44 03/28/20 24 03/28/2024 CBC W Auto Diffe renti al panel - Blood lymphocytes [#/volume] in blood 0.93 text: 1.00 - 4.80 x10'3/ uL low ABS. LYMPH OCYTE S 0.93 (L) 1.00 - 4.80 x10'3 /uL 03/28 8:46 AM CDT [facility] Not Available Not Available 12/11/2024 16:17:44 03/28/20 24 03/28/2024 CBC W Auto Diffe renti al panel - Blood monocytes [#/volume] in blood 0.74 text: 0.30 - 0.82 x10'3/ uL ABS. MONOC YTES 0.74 0.30 - 0.82 x10'3 /uL 03/28 8:46 AM CDT [facility] Not Available Not Available 12/11/2024 16:17:44 03/28/20 24 03/28/2024 CBC W Auto Diffe renti al panel - Blood eosinophils [#/volume] in blood 0.04 text: 0.04 - 0.54 x10'3/ uL ABS. EOSIN OPHIL S 0.04 0.04 - 0.54 x10'3 /uL 03/28 8:46 AM CDT [facility] Not Available Not Available 12/11/2024 16:17:44 03/28/20 24 03/28/2024 CBC W Auto Diffe renti al panel - Blood basophils [#/volume] in blood 0.02 text: 0.01 - 0.08 x10'3/ uL ABS. BASOP HILS 0.02 0.01 - 0.08 x10'3 /uL 03/28 8:46 AM CDT [facility] Not Available Not Available 12/11/2024 16:17:44 03/28/2003/28/2024 CBC W Auto Diffe renti al panel - Blood immature granulocytes [#/volume] in blood 0.03 text: 0.00 - 0.49 x10'3/ uL ABS. IMMAT URE GRANU LOCYT ES 0.03 0.00 - 0.49 x10'3 /uL 03/28 8:46 AM CDT [facility] Not Available Not Available 12/11/2024 16:17:44 03/28/20 24 03/28/2024 CBC W Auto Diffe renti al panel - Blood erythrocytes [morphology] in blood by automated count SLIDE REVIEW ED RBC MORPH OLOGY SLIDE REVIE WED 03/28 8:46 AM CDT [facility] Not Available Not Available 12/11/2024 16:17:44 03/28/20 24 03/28/2024 CBC W Auto Diffe renti al panel - Blood anisocytosis [presence] in blood 2+ ANISO 2+ 03/28 8:46 AM CDT [facility] Not Available Not Available 12/11/2024 16:17:44 03/28/20 24 03/28/2024 CBC W Auto Diffe rose al panel - Blood platelets [#/volume] in blood by automated count ADEQUA TE PLT EST. ADEQU ATE 03/28 8:46 AM CDT [facility] Not Available Not Available 12/11/2024 16:17:44 03/28/20 24 03/28/2024 CBC W Auto Diffe renti al panel - Blood interpretati on and review of laboratory results Abnorm al Not Available Not Available 16:17:44 03/28/20 24 03/28/2024 Basic metab olic 2000 panel - Serum or Plasm a glucose [mass/volume ] in serum or plasma 176 text: 70 - 99 mg/dL high GLUCO SE 176 (H) 70 - 99 MG/DL 03/28 8:47 AM CDT [facility] Not Available Not Available 12/11/2024 16:17:44 03/28/20 24 03/28/2024 Basic metab olic 1999 panel - Serum or Plasm a urea nitrogen [mass/volume ] in serum or plasma 21 text: 7 - 18 mg/dL high BUN 21 (H) 7 - 18 MG/DL 03/28 8:47 AM CDT [facility] Not Available Not Available 12/11/2024 16:17:44 03/28/20 24 03/28/2024 Basic metab olic 1999 panel - Serum or Plasm a creatinine [mass/volume ] in serum or plasma 0.91 text: 0.7 - 1.3 mg/dL CREAT ININE S/P/B 0.91 0.7 - 1.3 MG/DL 03/28 8:47 AM CDT [facility] Not Available Not Available 12/11/2024 16:17:44 03/28/20 24 03/28/2024 Basic metab olic 1999 panel - Serum or Plasm a sodium [moles/volum e] in serum or plasma 135 text: 136 - 145 mmol/L low SODIU M S/P/B 135 (L) 136 - 145 MMOL/ L 03/28 8:47 AM CDT [facility] Not Available Not Available 12/11/2024 16:17:44 03/28/20 24 03/28/2024 Basic metab olic 2000 panel - Serum or Plasm a potassium [moles/volum e] in serum or plasma 4.5 text: 3.5 - 5.1 mmol/L POTAS SIUM S/P/B 4.5 3.5 - 5.1 MMOL/ L 03/28 8:47 AM CDT [facility] Not Available Not Available 12/11/2024 16:17:44 03/28/20 24 03/28/2024 Basic metab olic 1999 panel - Serum or Plasm a chloride [moles/volum e] in serum or plasma 103 text: 100 - 108 mmol/L CHLOR SYLVIA S/P/B 103 100 - 108 MMOL/ L 03/28 8:47 AM CDT [facility] Not Available Not Available 12/11/2024 16:17:44 03/28/20 24 03/28/2024 Basic metab olic 1999 panel - Serum or Plasm a carbon dioxide, total [moles/volum e] in serum or plasma 28.2 text: 21 - 32 mmol/L CO2 28.2 21 - 32 MMOL/ L 03/28 8:47 AM CDT [facility] Not Available Not Available 12/11/2024 16:17:44 03/28/20 24 03/28/2024 Basic metab olic 1999 panel - Serum or Plasm a calcium [mass/volume ] in serum or plasma 8.8 text: 8.5 - 10.1 mg/dL CALCI UM S/P/B 8.8 8.5 - 10.1 MG/DL 03/28 8:47 AM CDT [facility] Not Available Not Available 12/11/2024 16:17:44 03/28/20 24 03/28/2024 Basic metab olic 1999 panel - Serum or Plasm a anion gap in serum or plasma by calculation 3.8 text: 5 - 15 mmol/L low ANION GAP 3.8 (L) 5 - 15 MMOL/ L 03/28 8:47 AM T [facility] Not Available Not Available 12/11/2024 16:17:44 03/28/20 24 03/28/2024 Basic metab olic 2000 panel - Serum or Plasm a urea nitrogen/cre atinine [mass ratio] in serum or plasma 23.1 low: 6high: 26 BUN CREAT ININE RATIO 23.1 6 - 26 03/28 8:47 AM T [facility] Not Available Not Available 12/11/2024 16:17:44 03/28/20 24 03/28/2024 Basic metab olic 2000 panel - Serum or Plasm a glomerular filtration rate [volume rate/area] in serum, plasma or blood by creatinine-b ased formula (CKD-epi 2020)/1.73 sq M text: >90 mL/min /1.73 M2 GFR ESTIM ATE >90 >90 ML/ND N/1.7 3 M2 03/28 8:47 AM T [facility] Not Available Not Available 12/11/2024 16:17:44 03/28/20 24 03/28/2024 Basic metab olic 2000 panel - Serum or Plasm a interpretati on and review of laboratory results Abnorm al Not Available Not Available 16:17:44 03/28/20 24 03/28/2024 Gluco se [Mass /volu me] in Blood by Autom ated test strip glucose [mass/volume ] in blood by automated test strip 185 mg/dL low: 70mg/d Lhigh: 99mg/d L high GLUCO SE POC 185 (H) 70 - 99 mg/dL 03/28 6:[address] [facility] Not Available Not Available 12/11/2024 16:17:44 03/28/20 24 03/28/2024 Gluco se [Mass /volu me] in Blood by Autom ated test strip interpretati on and review of laboratory results Abnorm al Not Available Not Available 16:17:44 03/29/20 24 03/29/2024 Gluco se [Mass /volu me] in Blood by Autom ated test strip glucose [mass/volume ] in blood by automated test strip 164 mg/dL low: 70mg/d Lhigh: 99mg/d L high GLUCO SE POC 164 (H) 70 - 99 mg/dL 03/29 11:09 AM CDT [facility] Not Available Not Available 12/11/2024 16:17:45 03/29/20 24 03/29/2024 Gluco se [Mass /volu me] in Blood by Autom ated test strip interpretati on and review of laboratory results Abnorm al Not Available Not Available 16:17:45 03/29/20 24 03/29/2024 Gluco se [Mass /volu me] in Blood by Autom ated test strip glucose [mass/volume ] in blood by automated test strip 152 mg/dL low: 70mg/d Lhigh: 99mg/d L high GLUCO SE POC 152 (H) 70 - 99 mg/dL 03/29 6:37 AM CDT [facility] Not Available Not Available 12/11/2024 16:17:45 03/29/20 24 03/29/2024 Gluco se [Mass /volu me] in Blood by Autom ated test strip interpretati on and review of laboratory results Abnorm al Not Available Not Available 16:17:45 03/29/20 24 03/29/2024 CBC W Auto Diffe renti al panel - Blood leukocytes [#/volume] in blood by automated count 5.29 text: 4.5 - 11.0 x10'3/ uL WBC 5.29 4.5 - 11.0 x10'3 /uL 03/29 5:46 AM CDT [facility] Not Available Not Available 12/11/2024 16:17:45 03/29/20 24 03/29/2024 CBC W Auto Diffe renti al panel - Blood erythrocytes [#/volume] in blood by automated count 3.86 text: 4.70 - 6.10 x10'6/ uL low RBC 3.86 (L) 4.70 - 6.10 x10'6 /uL 03/29 5:46 AM CDT [facility] Not Available Not Available 12/11/2024 16:17:45 03/29/20 24 03/29/2024 CBC W Auto Diffe renti al panel - Blood hemoglobin [mass/volume ] in blood 9.1 text: 14.0 - 18.0 g/dL low HGB 9.1 (L) 14.0 - 18.0 G/DL 03/29 5:46 AM CDT [facility] Not Available Not Available 12/11/2024 16:17:45 03/29/2003/29/2024 CBC W Auto Diffe renti al panel - Blood hematocrit [volume fraction] of blood by calculation 32 % low: 43%hig h: 54% low HCT 32.0 (L) 43.0 - 54.0 % 03/29 5:46 AM CDT [facility] Not Available Not Available 12/11/2024 16:17:45 03/29/2003/29/2024 CBC W Auto Diffe renti al panel - Blood MCV [entitic mean volume] in red blood cells 82.9 text: 80.0 - 94.0 fL MCV 82.9 80.0 - 94.0 FL 03/29 5:46 AM CDT [facility] Not Available Not Available 12/11/2024 16:17:45 03/29/20 24 03/29/2024 CBC W Auto Diffe renti al panel - Blood MCH [entitic mass] 23.6 pg low: 27pghi gh: 31pg low MCH 23.6 (L) 27.0 - 31.0 PG 03/29 5:46 AM CDT [facility] Not Available Not Available 12/11/2024 16:17:45 03/29/20 24 03/29/2024 CBC W Auto Diffe renti al panel - Blood MCHC [entitic mass/volume] in red blood cells 28.4 text: 32.0 - 36.0 g/dL low MCHC 28.4 (L) 32.0 - 36.0 G/DL 03/29 5:46 AM CDT [facility] Not Available Not Available 12/11/2024 16:17:45 03/29/20 24 03/29/2024 CBC W Auto Diffe renti al panel - Blood RDW 24.3 % low: 11.5%h igh: 14.5% high RDW 24.3 (H) 11.5 - 14.5 % 03/29 5:46 AM CDT [facility] Not Available Not Available 12/11/2024 16:17:45 03/29/20 24 03/29/2024 CBC W Auto Diffe renti al panel - Blood platelets [#/volume] in blood 225 text: 130 - 400 x10'3/ uL PLT 225 130 - 400 x10'3 /uL 03/29 5:46 AM CDT [facility] Not Available Not Available 12/11/2024 16:17:45 03/29/20 24 03/29/2024 CBC W Auto Diffe renti al panel - Blood platelet [entitic mean volume] in blood 9.7 text: 9.3 - 12.2 fL MPV 9.7 9.3 - 12.2 FL 03/29 5:46 AM CDT [facility] Not Available Not Available 12/11/2024 16:17:45 03/29/20 24 03/29/2024 CBC W Auto Diffe renti al panel - Blood differential cell count method - blood MANUAL DIFFER ENTIAL DIFFE ROSE AL TYPE VANI Guillaume DIFFE ROSE AL 03/29 6:00 AM CDT [facility] Not Available Not Available 12/11/2024 16:17:45 03/29/20 24 03/29/2024 CBC W Auto Diffe renti al panel - Blood segmented neutrophils/ leukocytes in blood by manual count 76 % SEG NEUTR OPHIL S 76 % 03/29 6:00 AM CDT [facility] Not Available Not Available 12/11/2024 16:17:45 03/29/20 24 03/29/2024 CBC W Auto Diffe renti al panel - Blood lymphocytes/ leukocytes in blood by manual count 12 % LYMPH OCYTE S 12 % 03/29 6:00 AM CDT [facility] Not Available Not Available 12/11/2024 16:17:45 03/29/20 24 03/29/2024 CBC W Auto Diffe renti al panel - Blood monocytes/le ukocytes in blood by manual count 9 % MONOC YTES 9 % 03/29 6:00 AM CDT [facility] Not Available Not Available 12/11/2024 16:17:45 03/29/20 24 03/29/2024 CBC W Auto Diffe renti al panel - Blood basophils/le ukocytes in blood 1 % BASOP HILS 1 % 03/29 6:00 AM CDT [facility] Not Available Not Available 12/11/2024 16:17:45 03/29/20 24 03/29/2024 CBC W Auto Diffe renti al panel - Blood band form neutrophils/ leukocytes in blood by manual count 1 % BANDS 1 % 03/29 6:00 AM CDT [facility] Not Available Not Available 12/11/2024 16:17:45 03/29/20 24 03/29/2024 CBC W Auto Diffe renti al panel - Blood myelocytes [#/volume] in blood by manual count 1 % MYELO CYTES 1 % 03/29 6:00 AM CDT [facility] Not Available Not Available 12/11/2024 16:17:45 03/29/20 24 03/29/2024 CBC W Auto Diffe renti al panel - Blood neutrophils [#/volume] in blood 4.07 text: 1.80 - 7.70 x10'3/ uL ABS. NEUTR OPHIL S 4.07 1.80 - 7.70 x10'3 /uL 03/29 6:00 AM CDT [facility] Not Available Not Available 12/11/2024 16:17:45 03/29/20 24 03/29/2024 CBC W Auto Diffe renti al panel - Blood lymphocytes [#/volume] in blood 0.63 text: 1.00 - 4.80 x10'3/ uL low ABS. LYMPH OCYTE S 0.63 (L) 1.00 - 4.80 x10'3 /uL 03/29 6:00 AM CDT [facility] Not Available Not Available 12/11/2024 16:17:45 03/29/2003/29/2024 CBC W Auto Diffe renti al panel - Blood monocytes [#/volume] in blood 0.48 text: 0.30 - 0.82 x10'3/ uL ABS. MONOC YTES 0.48 0.30 - 0.82 x10'3 /uL 03/29 6:00 AM CDT [facility] Not Available Not Available 12/11/2024 16:17:45 03/29/2003/29/2024 CBC W Auto Diffe renti al panel - Blood basophils [#/volume] in blood 0.05 text: 0.01 - 0.08 x10'3/ uL ABS. BASOP HILS 0.05 0.01 - 0.08 x10'3 /uL 03/29 6:00 AM CDT [facility] Not Available Not Available 12/11/2024 16:17:45 03/29/2003/29/2024 CBC W Auto Diffe renti al panel - Blood myelocytes [#/volume] in blood by manual count 0.05 text: 0.00 x10'3/ uL high ABS. MYELO CYTES 0.05 (H) 0.00 x10'3 /uL 03/29 6:00 AM CDT [facility] Not Available Not Available 12/11/2024 16:17:45 03/29/20 24 03/29/2024 CBC W Auto Diffe renti al panel - Blood erythrocytes [morphology] in blood by automated count SLIDE REVIEW ED RBC MORPH OLOGY SLIDE REVIE WED 03/29 6:00 AM CDT [facility] Not Available Not Available 12/11/2024 16:17:45 03/29/20 24 03/29/2024 CBC W Auto Diffe renti al panel - Blood anisocytosis [presence] in blood 2+ ANISO 2+ 03/29 6:00 AM CDT [facility] Not Available Not Available 12/11/2024 16:17:45 03/29/20 24 03/29/2024 CBC W Auto Diffe renti al panel - Blood poikilocytos is [presence] in blood by automated count 1+ POIKL O 1+ 03/29 6:00 AM CDT [facility] Not Available Not Available 12/11/2024 16:17:45 03/29/20 24 03/29/2024 CBC W Auto Diffe renti al panel - Blood hypochromia [presence] in blood 1+ HYPOC HROMA JAZMYNE 1+ 03/29 6:00 AM CDT [facility] Not Available Not Available 12/11/2024 16:17:45 03/29/20 24 03/29/2024 CBC W Auto Diffe renti al panel - Blood platelets [#/volume] in blood by automated count ADEQUA TE PLT EST. ADEQU ATE 03/29 6:00 AM CDT [facility] Not Available Not Available 12/11/2024 16:17:45 03/29/20 24 03/29/2024 CBC W Auto Diffe renti al panel - Blood interpretati on and review of laboratory results Abnorm al Not Available Not Available 16:17:45 03/29/20 24 03/29/2024 Basic metab olic 2000 panel - Serum or Plasm a glucose [mass/volume ] in serum or plasma 180 text: 70 - 99 mg/dL high GLUCO SE 180 (H) 70 - 99 MG/DL 03/29 5:22 AM T [facility] Not Available Not Available 12/11/2024 16:17:45 03/29/20 24 03/29/2024 Basic metab olic 1999 panel - Serum or Plasm a urea nitrogen [mass/volume ] in serum or plasma 20 text: 7 - 18 mg/dL high BUN 20 (H) 7 - 18 MG/DL 03/29 5:22 AM T [facility] Not Available Not Available 12/11/2024 16:17:45 03/29/20 24 03/29/2024 Basic metab olic 1999 panel - Serum or Plasm a creatinine [mass/volume ] in serum or plasma 0.81 text: 0.7 - 1.3 mg/dL CREAT ININE S/P/B 0.81 0.7 - 1.3 MG/DL 03/29 5:22 AM T [facility] Not Available Not Available 12/11/2024 16:17:45 03/29/20 24 03/29/2024 Basic metab olic 1999 panel - Serum or Plasm a sodium [moles/volum e] in serum or plasma 136 text: 136 - 145 mmol/L SODIU M S/P/B 136 136 - 145 MMOL/ L 03/29 5:22 AM T [facility] Not Available Not Available 12/11/2024 16:17:45 03/29/20 24 03/29/2024 Basic metab olic 1999 panel - Serum or Plasm a potassium [moles/volum e] in serum or plasma 4.4 text: 3.5 - 5.1 mmol/L POTAS SIUM S/P/B 4.4 3.5 - 5.1 MMOL/ L 03/29 5:22 AM CDT [facility] Not Available Not Available 12/11/2024 16:17:45 03/29/20 24 03/29/2024 Basic metab olic 2000 panel - Serum or Plasm a chloride [moles/volum e] in serum or plasma 105 text: 100 - 108 mmol/L CHLOR SYLVIA S/P/B 105 100 - 108 MMOL/ L 03/29 5:22 AM CDT [facility] Not Available Not Available 12/11/2024 16:17:45 03/29/20 24 03/29/2024 Basic metab olic 2000 panel - Serum or Plasm a carbon dioxide, total [moles/volum e] in serum or plasma 27.4 text: 21 - 32 mmol/L CO2 27.4 21 - 32 MMOL/ L 03/29 5:22 AM CDT [facility] Not Available Not Available 12/11/2024 16:17:45 03/29/20 24 03/29/2024 Basic metab olic 2000 panel - Serum or Plasm a calcium [mass/volume ] in serum or plasma 8.4 text: 8.5 - 10.1 mg/dL low CALCI UM S/P/B 8.4 (L) 8.5 - 10.1 MG/DL 03/29 5:22 AM T [facility] Not Available Not Available 12/11/2024 16:17:45 03/29/20 24 03/29/2024 Basic metab olic 2000 panel - Serum or Plasm a anion gap in serum or plasma by calculation 3.6 text: 5 - 15 mmol/L low ANION GAP 3.6 (L) 5 - 15 MMOL/ L 03/29 5:22 AM T [facility] Not Available Not Available 12/11/2024 16:17:45 03/29/20 24 03/29/2024 Basic metab olic 2000 panel - Serum or Plasm a urea nitrogen/cre atinine [mass ratio] in serum or plasma 24.6 low: 6high: 26 BUN CREAT ININE RATIO 24.6 6 - 26 03/29 5:22 AM CDT [facility] Not Available Not Available 12/11/2024 16:17:45 03/29/20 24 03/29/2024 Basic metab olic 2000 panel - Serum or Plasm a glomerular filtration rate [volume rate/area] in serum, plasma or blood by creatinine-b ased formula (CKD-epi 2020)/1.73 sq M text: >90 mL/min /1.73 M2 GFR ESTIM ATE >90 >90 ML/ND N/1.7 3 M2 03/29 5:22 AM CDT [facility] Not Available Not Available 12/11/2024 16:17:45 03/29/20 24 03/29/2024 Basic metab olic 2000 panel - Serum or Plasm a interpretati on and review of laboratory results Abnorm al Not Available Not Available 16:17:45 06/14/2006/14/2024 Hemog lobin A1c/H emogl obin. total in Blood hemoglobin A1C/hemoglob in.total in blood 6.4 % high: 5.6% high Hemog lobin A1c 6.4 (H) <=5.6 % 06/14 10:14 AM T [facility] Not Available Not Available 10/09/2024 11:42:35 06/14/2006/14/2024 Hemog lobin A1c/H emogl obin. total in Blood glucose mean value [mass/volume ] in blood estimated from glycated hemoglobin 137 mg/dL Estim ated [place] [facility] Gluco se 137 mg/dL 06/14 10:14 AM [facility] Not Available Not Available 10/09/2024 11:42:35 06/14/20 24 06/14/2024 Hemog lobin A1c/H emogl obin. total in Blood interpretati on and review of laboratory results Abnorm al Not Available Not Available 11:42:35 07/23/20 24 07/23/2024 Blood type and Indir ect antib brigid scree n panel - Blood blood group antibody screen [presence] in serum or plasma NEG Antib brigid Scree n NEG 07/23 5:23 PM [facility] Not Available Not Available 10/09/2024 11:42:35 07/23/20 24 07/23/2024 Blood type and Indir ect antib brigid scree n panel - Blood ABO and Rh group [type] in blood O POS ABO Rh O POS 07/23 5:23 PM [facility] Not Available Not Available 10/09/2024 11:42:35 07/23/20 24 07/23/2024 CBC W Auto Diffe renti al panel - Blood leukocytes [#/volume] in blood by automated count 9.1 text: 4.0 - 10.7 x10e9/ L WBC 9.1 4.0 - 10.7 x10E9 /L 07/23 4:44 PM [facility] Not Available Not Available 10/09/2024 11:42:35 07/23/20 24 07/23/2024 CBC W Auto Diffe renti al panel - Blood erythrocytes [#/volume] in blood by automated count 4.29 text: 4.30 - 5.80 x10e12 /L low RBC Count 4.29 (L) 4.30 - 5.80 x10E1 2/L 07/23 4:44 PM [facility] Not Available Not Available 10/09/2024 11:42:35 07/23/2007/23/2024 CBC W Auto Diffe renti al panel - Blood hemoglobin [mass/volume ] in blood 9.9 g/dL low: 13.3g/ dLhigh : 17.5g/ dL low Hemog lobin 9.9 (L) 13.3 - 17.5 g/dL 07/23 4:44 PM [facility] Not Available Not Available 10/09/2024 11:42:35 07/23/2007/23/2024 CBC W Auto Diffe renti al panel - Blood hematocrit [volume fraction] of blood by automated count 33 % low: 38.7%h igh: 51.1% low Hemat ocrit 33.0 (L) 38.7 - 51.1 % 07/23 4:44 PM [facility] Not Available Not Available 10/09/2024 11:42:35 07/23/2007/23/2024 CBC W Auto Diffe renti al panel - Blood MCV [entitic volume] by automated count 76.9 fL low: 80fLhi gh: 98fL low MCV 76.9 (L) 80.0 - 98.0 fL 07/23 4:44 PM [facility] Not Available Not Available 10/09/2024 11:42:35 07/23/2007/23/2024 CBC W Auto Diffe renti al panel - Blood MCH [entitic mass] by automated count 23.1 pg low: 26.7pg high: 33.6pg low MCH 23.1 (L) 26.7 - 33.6 pg 07/23 4:44 PM [facility] Not Available Not Available 10/09/2024 11:42:35 07/23/20 24 07/23/2024 CBC W Auto Diffe renti al panel - Blood MCHC [mass/volume ] by automated count 30 g/dL low: 31.7g/ dLhigh : 36.3g/ dL low MCHC 30.0 (L) 31.7 - 36.3 g/dL 07/23 4:44 PM [facility] Not Available Not Available 10/09/2024 11:42:35 07/23/20 24 07/23/2024 CBC W Auto Diffe renti al panel - Blood erythrocyte distribution width [ratio] by automated count 19.4 % low: 11.3%h igh: 14.8% high RDW-C V 19.4 (H) 11.3 - 14.8 % 07/23 4:44 PM [facility] Not Available Not Available 10/09/2024 11:42:35 07/23/2007/23/2024 CBC W Auto Diffe renti al panel - Blood platelets [#/volume] in blood by automated count 353 text: 150 - 420 x10e9/ L Plate let Count 353 150 - 420 x10E9 /L 07/23 4:44 PM [facility] Not Available Not Available 10/09/2024 11:42:35 07/23/2007/23/2024 CBC W Auto Diffe renti al panel - Blood platelet mean volume [entitic volume] in blood by automated count 10.7 fL low: 7.8fLh igh: 11.4fL MPV 10.7 7.8 - 11.4 fL 07/23 4:44 PM [facility] Not Available Not Available 10/09/2024 11:42:35 07/23/2007/23/2024 CBC W Auto Diffe renti al panel - Blood neutrophils/ 100 leukocytes in blood by automated count 79.4 % low: 41%hig h: 74% high Neutr ophil % 79.4 (H) 41.0 - 74.0 % 07/23 4:44 PM [facility] Not Available Not Available 10/09/2024 11:42:35 07/23/20 24 07/23/2024 CBC W Auto Diffe renti al panel - Blood lymphocytes/ 100 leukocytes in blood by automated count 9 % low: 17%hig h: 47% low Lymph ocyte % 9.0 (L) 17.0 - 47.0 % 07/23 4:44 PM [facility] Not Available Not Available 10/09/2024 11:42:35 07/23/20 24 07/23/2024 CBC W Auto Diffe renti al panel - Blood monocytes/10 0 leukocytes in blood by automated count 9.9 % low: 3%high : 11% Monoc yte % 9.9 3.0 - 11.0 % 07/23 4:44 PM [facility] Not Available Not Available 10/09/2024 11:42:35 07/23/20 24 07/23/2024 CBC W Auto Diffe renti al panel - Blood eosinophils/ 100 leukocytes in blood by automated count 1.2 % low: 0%high : 7% Eosin ophil % 1.2 0.0 - 7.0 % 07/23 4:44 PM [facility] Not Available Not Available 10/09/2024 11:42:35 07/23/20 24 07/23/2024 CBC W Auto Diffe renti al panel - Blood basophils/10 0 leukocytes in blood by automated count 0.2 % low: 0%high : 1.6% Basop hil % 0.2 0.0 - 1.6 % 07/23 4:44 PM SNACK [employer] ATTEND[facility] Not Available Not Available 10/09/2024 11:42:35 07/23/20 24 07/23/2024 CBC W Auto Diffe renti al panel - Blood immature granulocytes /100 leukocytes in blood by automated count 0.3 % low: 0%high : 1% Immat ure Granu locyt es % 0.3 0.0 - 1.0 % 07/23 4:44 PM SNACK [employer] ATTEND[employer] [facility] Not Available Not Available 10/09/2024 11:42:35 07/23/20 24 07/23/2024 CBC W Auto Diffe renti al panel - Blood neutrophils [#/volume] in blood by automated count 7.21 text: 1.60 - 7.50 x10e9/ L Neutr ophil Absol [place] 7.21 1.60 - 7.50 x10E9 /L 07/23 4:44 PM SNACK [employer]END[employer] [facility] Not Available Not Available 10/09/2024 11:42:35 07/23/20 24 07/23/2024 CBC W Auto Diffe renti al panel - Blood lymphocytes [#/volume] in blood by automated count 0.82 text: 1.00 - 4.40 x10e9/ L low Lymph ocyte Absol [place] 0.82 (L) 1.00 - 4.40 x10E9 /L 07/23 4:44 PM SNACK [employer] ATTEND[employer] [facility] Not Available Not Available 10/09/2024 11:42:35 07/23/20 24 07/23/2024 CBC W Auto Diffe renti al panel - Blood monocytes [#/volume] in blood by automated count 0.9 text: 0.15 - 1.00 x10e9/ L Monoc yte Absol [place] 0.90 0.15 - 1.00 x10E9 /L 07/23 4:44 PM SNACK [employer] ATTEND[employer] [facility] Not Available Not Available 10/09/2024 11:42:35 07/23/20 24 07/23/2024 CBC W Auto Diffe renti al panel - Blood eosinophils [#/volume] in blood 0.11 text: 0.00 - 0.60 x10e9/ L Eosin ophil Absol [place] 0.11 0.00 - 0.60 x10E9 /L 07/23 4:44 PM SNACK [employer] ATTEND[employer] [facility] Not Available Not Available 10/09/2024 11:42:35 07/23/20 24 07/23/2024 CBC W Auto Diffe renti al panel - Blood basophils [#/volume] in blood by automated count 0.02 text: 0.00 - 0.13 x10e9/ L Basop hil Absol [place] 0.02 0.00 - 0.13 x10E9 /L 07/23 4:44 PM SNACK BAR ATTENDANT [facility] Not Available Not Available 10/09/2024 11:42:35 07/23/20 24 07/23/2024 CBC W Auto Diffe renti al panel - Blood interpretati on and review of laboratory results Abnorm al Not Available Not Available 11:42:35 07/23/20 24 07/23/2024 Basic metab olic 2000 panel - Serum or Plasm a urea nitrogen [mass/volume ] in serum or plasma 16 mg/dL low: 7mg/dL high: 26mg/d L BUN 16 7 - 26 mg/dL 07/23 5:07 PM SNACK BAR ATTENDANT [facility] Not Available Not Available 10/09/2024 11:42:35 07/23/2007/23/2024 Basic metab olic 1999 panel - Serum or Plasm a creatinine [mass/volume ] in serum or plasma 0.95 mg/dL low: 0.71mg /dLhig h: 1.16mg /dL Creat inine 0.95 0.71 - 1.16 mg/dL 07/23 5:07 PM SNACK BAR ATTENDANT [facility] Not Available Not Available 10/09/2024 11:42:35 07/23/20 24 07/23/2024 Basic metab olic 1999 panel - Serum or Plasm a sodium [moles/volum e] in serum or plasma 141 mmol/ L low: 136mmo l/Lhig h: 145mmo l/L Sodiu m 141 136 - 145 mmol/ L 07/23 5:07 PM SNACK BAR ATTENDANT [facility] Not Available Not Available 10/09/2024 11:42:35 07/23/20 24 07/23/2024 Basic metab olic 2000 panel - Serum or Plasm a potassium [moles/volum e] in serum or plasma 5 mmol/ L low: 3.5mmo l/Lhig h: 4.5mmo l/L high Potas sium 5.0 (H) 3.5 - 4.5 mmol/ L 07/23 5:07 PM SNACK BAR ATTENDANT [facility] Not Available Not Available 10/09/2024 11:42:35 07/23/20 24 07/23/2024 Basic metab olic 2000 panel - Serum or Plasm a chloride [moles/volum e] in serum or plasma 96 mmol/ L low: 98mmol /Lhigh : 107mmo l/L low Chlor sylvia 96 (L) 98 - 107 mmol/ L 07/23 5:07 PM SNACK BAR ATTENDANT [facility] Not Available Not Available 10/09/2024 11:42:35 07/23/20 24 07/23/2024 Basic metab olic 1999 panel - Serum or Plasm a carbon dioxide, total [moles/volum e] in serum or plasma 25 mmol/ L low: 22mmol /Lhigh : 29mmol /L CO2 25 22 - 29 mmol/ L 07/23 5:07 PM [facility] [place] Not Available Not Available 10/09/2024 11:42:35 07/23/20 24 07/23/2024 Basic metab olic 2000 panel - Serum or Plasm a glucose [mass/volume ] in serum or plasma 264 mg/dL low: 70mg/d Lhigh: 99mg/d L high Gluco se 264 (H) 70 - 99 mg/dL 07/23 5:07 PM SNACK BAR ATTENDANT [facility] Not Available Not Available 10/09/2024 11:42:35 07/23/20 24 07/23/2024 Basic metab olic 2000 panel - Serum or Plasm a calcium [moles/volum e] in serum or plasma 9.2 mg/dL low: 8.4mg/ dLhigh : 10.2mg /dL Calci um 9.2 8.4 - 10.2 mg/dL 07/23 5:07 PM SNACK BAR ATTENDANT [employer] [facility] [place] Not Available Not Available 10/09/2024 11:42:35 07/23/20 24 07/23/2024 Basic metab olic 2000 panel - Serum or Plasm a anion gap 20 low: 6high: 16 high Anion Gap 20 (H) 6 - 16 07/23 5:07 PM SNACK BAR ATTENDANT [employer] [facility] [place] Not Available Not Available 10/09/2024 11:42:35 07/23/20 24 07/23/2024 Basic metab olic 2000 panel - Serum or Plasm a urea nitrogen/cre atinine [mass ratio] in serum or plasma 17 low: 7high: 23 BUN/C reati nine Ratio 17 7 - 23 07/23 5:07 PM SNACK BAR ATTENDANT [employer] [facility] [place] Not Available Not Available 10/09/2024 11:42:35 07/23/20 24 07/23/2024 Basic metab olic 2000 panel - Serum or Plasm a osmolality calculated 302 text: 275 - 295 mOsm/k g high Osmol ality Calcu lated 302 (H) 275 - 295 mOsm/ kg 07/23 5:07 PM SNACK BAR ATTENDANT [employer] [facility] [place] Not Available Not Available 10/09/2024 11:42:35 07/23/20 24 07/23/2024 Basic metab olic 2000 panel - Serum or Plasm a glomerular filtration rate/1.73 sq M.predicted [volume rate/area] in serum, plasma or blood by creatinine-b ased formula (CKD-epi 2020) 87 text: >=90 mL/min /1.73 m2 low eGFR by CKD-E PI 87 (L) >=90 mL/mi n/1.7 3 m2 07/23 5:07 PM SNACK BAR ATTENDANT [employer] [facility] [place] Not Available Not Available 10/09/2024 11:42:35 07/23/20 24 07/23/2024 Basic metab olic 2000 panel - Serum or Plasm a interpretati on and review of laboratory results Abnorm al Not Available Not Available 11:42:35 08/02/20 24 08/02/2024 HbA1c (hemo globi n A1c), blood HbA1c 8.0 Not Available In-Office Order Internal Use Only DO Not Attach Compendium DO Not Attach Compendium, Do Not Delete/merge, [id number] 08/02/2024 12:56:04 08/02/20 24 08/02/2024 gluco se, finge rstic k, blood Blood Glucose: mg/dl 136 Not Available In-Off ice Order Internal Use Only DO Not Attach Compendium DO Not Attach Compendium, Do Not Delete/merge, [id number] 08/02/2024 12:56:03 11/09/19 25 11/08/2024 Urina lysis panel - Urine by Auto color of urine by auto Yellow text: yellow , straw Color UA Yello w Yello w, Straw 11/08 1:37 PM CDT [facility] Not Available Not Available 11/12/2024 11:10:04 11/09/19 25 11/08/2024 Urina lysis panel - Urine by Auto clarity in urine by refractometr y automated Clear text: clear Urszula ty UA Clear Clear 11/08 1:37 PM CDT [facility] Not Available Not Available 11/12/2024 11:10:04 11/09/19 25 11/08/2024 Urina lysis panel - Urine by Auto glucose [presence] in urine by test strip Normal text: normal Gluco se UA Bettie l Bettie l 11/08 1:37 PM CDT [facility] Not Available Not Available 11/12/2024 11:10:04 11/09/19 25 11/08/2024 Urina lysis panel - Urine by Auto bilirubin.to kelly [presence] in urine by test strip Negati ve text: negati ve Bilir ubin UA Negat joseph Negat joseph 11/08 1:37 PM CDT [facility] Not Available Not Available 11/12/2024 11:10:04 11/09/19 25 11/08/2024 Urina lysis panel - Urine by Auto ketones [presence] in urine by automated test strip Negati ve text: negati ve Keton e UA Negat joseph Negat joseph 11/08 1:37 PM CDT [facility] Not Available Not Available 11/12/2024 11:10:04 11/09/19 25 11/08/2024 Urina lysis panel - Urine by Auto specific gravity of urine by test strip low: 1.005h igh: 1.03 low Speci fic Gravi ty UA <1.00 5 (L) 1.005 - 1.030 11/08 1:37 PM CDT [facility] Not Available Not Available 11/12/2024 11:10:04 11/09/19 25 11/08/2024 Urina lysis panel - Urine by Auto hemoglobin [presence] in urine by test strip Negati ve text: negati ve Blood UA Negat joseph Negat joseph 11/08 1:37 PM CDT [facility] Not Available Not Available 11/12/2024 11:10:04 11/09/19 25 11/08/2024 Urina lysis panel - Urine by Auto pH of urine by test strip 7 pH low: 5pHhig h: 9pH pH UA 7.0 5.0 - 9.0 pH 11/08 1:37 PM CDT [facility] Not Available Not Available 11/12/2024 11:10:04 11/09/19 25 11/08/2024 Urina lysis panel - Urine by Auto protein [presence] in urine by test strip Negati ve text: negati ve Prote in UA Negat joseph Negat joseph 11/08 1:37 PM CDT [facility] Not Available Not Available 11/12/2024 11:10:04 11/09/19 25 11/08/2024 Urina lysis panel - Urine by Auto urobilinogen [mass/volume ] in urine by automated test strip Normal text: normal mg/dL Urobi linog en UA Bettie l Bettie l mg/dL 11/08 1:37 PM CDT [facility] Not Available Not Available 11/12/2024 11:10:04 0311/08/2024 Urina lysis panel - Urine by Auto nitrite [presence] in urine by test strip Negati ve text: negati ve Nitri te UA Negat joseph Negat joseph 11/08 1:37 PM CDT [facility] Not Available Not Available 11/12/2024 11:10:04 11/09/19 25 11/08/2024 Urina lysis panel - Urine by Auto leukocyte esterase [presence] in urine by test strip 25 PAT/uL text: negati ve abnormal Leuko cyte UA 25 PAT/u L (A) Negat joseph 11/08 1:37 PM CDT [facility] [place] Not Available Not Available 11/12/2024 11:10:04 11/09/1911/08/2024 Urina lysis panel - Urine by Auto erythrocytes [#/area] in urine sediment by automated count 3-5 text: 0 - 5 # /hpf RBC UA 3-5 0 - 5 # /hpf 11/08 1:37 PM CDT [facility] Not Available Not Available 11/12/2024 11:10:04 11/09/1911/08/2024 Urina lysis panel - Urine by Auto leukocytes [#/area] in urine sediment by automated count 0-5 text: 0 - 5 # /hpf WBC UA 0-5 0 - 5 # /hpf 11/08 1:37 PM CDT [facility] [place] Not Available Not Available 11/12/2024 11:10:04 11/09/1911/08/2024 Urina lysis panel - Urine by Auto bacteria [presence] in urine by automated None Seen text: none seen Bacte nickolas UA None Seen None Seen 11/08 1:37 PM CDT [facility] Not Available Not Available 11/12/2024 11:10:04 11/09/1911/08/2024 Urina lysis panel - Urine by Auto epithelial cells.squamo us [presence] in urine by automated 0-2 text: 0 - 5 /hpf Squam ous Epith elial Cells 0-2 0 - 5 /hpf 11/08 1:37 PM CDT [facility] [place] Not Available Not Available 11/12/2024 11:10:04 11/09/19 25 11/08/2024 Urina lysis panel - Urine by Auto interpretati on and review of laboratory results Abnorm al Not Available Not Available 11:10:04 11/09/19 25 11/11/2024 Bacte nickolas ident ified in Urine by Cultu re bacteria identified in urine by culture More than 2 organi sms seen at >=50,0 00 CFU/mL . Recoll ect if clinic ally indica anibal. Cultu re Urine More than 2 organ isms seen at >=50, 000 CFU/m L. Recol lect if clini stacey indic ated. CLARKE 11/11 7:38 AM CDT [facility] Not Available Not Available 11/12/2024 11:10:03 11/09/19 25 11/11/2024 Bacte nickolas ident ified in Urine by Cultu re interpretati on and review of laboratory results Normal Not Available Not Available 10/26 11:10:03 11/09/19 25 11/08/2024 SLIDE SCAN HEMAT OLOGY erythrocyte morphology finding [identifier] in blood REVIEW ED RBC Morph ology REVIE WED 11/08 2:09 PM CDT [facility] [employer] [facility] [place] Not Available Not Available 11/12/2024 11:10:03 11/09/19 25 11/08/2024 SLIDE SCAN HEMAT OLOGY microcytes [presence] in blood by light microscopy MANY text: (none) abnormal Micro cytos is MANY (A) (none ) 11/08 2:09 PM CDT [facility] [employer] [facility] [place] Not Available Not Available 11/12/2024 11:10:03 11/09/19 25 11/08/2024 SLIDE SCAN HEMAT OLOGY schistocytes [presence] in blood by light microscopy MANY text: (none) abnormal Schis tocyt es MANY (A) (none ) 11/08 2:09 PM CDT [facility] [employer] [facility] [place] Not Available Not Available 11/12/2024 11:10:03 11/09/19 25 11/08/2024 SLIDE SCAN HEMAT OLOGY interpretati on and review of laboratory results Abnorm al Not Available Not Available 11:10:03 11/09/19 25 11/08/2024 CBC W Auto Diffe renrodney al panel - Blood leukocytes [#/volume] in blood by automated count 6.9 text: 4.0 - 10.7 x10e9/ L WBC 6.9 4.0 - 10.7 x10E9 /L 11/08 2:09 PM CDT [facility] Not Available Not Available 11/12/2024 11:10:03 11/09/19 25 11/08/2024 CBC W Auto Diffe rose al panel - Blood erythrocytes [#/volume] in blood by automated count 4.88 text: 4.30 - 5.80 x10e12 /L RBC Count 4.88 4.30 - 5.80 x10E1 2/L 11/08 2:09 PM CD[facility] Not Available Not Available 11/12/2024 11:10:03 11/09/19 25 11/08/2024 CBC W Auto Diffe rose al panel - Blood hemoglobin [mass/volume ] in blood 10.6 g/dL low: 13.3g/ dLhigh : 17.5g/ dL low Hemog lobin 10.6 (L) 13.3 - 17.5 g/dL 11/08 2:09 PM CDT [facility] Not Available Not Available 11/12/2024 11:10:03 11/09/19 25 11/08/2024 CBC W Auto Diffe renti al panel - Blood hematocrit [volume fraction] of blood by automated count 35.5 % low: 38.7%h igh: 51.1% low Hemat ocrit 35.5 (L) 38.7 - 51.1 % 11/08 2:09 PM CDT [facility] Not Available Not Available 11/12/2024 11:10:03 11/09/19 25 11/08/2024 CBC W Auto Diffe renti al panel - Blood MCV [entitic volume] by automated count 72.7 fL low: 80fLhi gh: 98fL low MCV 72.7 (L) 80.0 - 98.0 fL 11/08 2:09 PM CDT [facility] Not Available Not Available 11/12/2024 11:10:03 11/09/19 25 11/08/2024 CBC W Auto Diffe renti al panel - Blood MCH [entitic mass] by automated count 21.7 pg low: 26.7pg high: 33.6pg low MCH 21.7 (L) 26.7 - 33.6 pg 11/08 2:09 PM CDT [facility] Not Available Not Available 11/12/2024 11:10:03 11/09/19 25 11/08/2024 CBC W Auto Diffe renti al panel - Blood MCHC [mass/volume ] by automated count 29.9 g/dL low: 31.7g/ dLhigh : 36.3g/ dL low MCHC 29.9 (L) 31.7 - 36.3 g/dL 11/08 2:09 PM CDT [facility] Not Available Not Available 11/12/2024 11:10:03 11/09/19 25 11/08/2024 CBC W Auto Diffe renti al panel - Blood erythrocyte distribution width [ratio] by automated count 24.2 % low: 11.3%h igh: 14.8% high RDW-C V 24.2 (H) 11.3 - 14.8 % 11/08 2:09 PM CDT [facility] Not Available Not Available 11/12/2024 11:10:03 11/09/19 25 11/08/2024 CBC W Auto Diffe renti al panel - Blood platelets [#/volume] in blood by automated count 269 text: 150 - 420 x10e9/ L Plate let Count 269 150 - 420 x10E9 /L 11/08 2:09 PM CDT [facility] Not Available Not Available 11/12/2024 11:10:03 11/09/19 25 11/08/2024 CBC W Auto Diffe renti al panel - Blood platelet mean volume [entitic volume] in blood by automated count MPV 11/08 2:09 PM CDT [facility] [place] Not Available Not Available 11/12/2024 11:10:03 11/09/19 25 11/08/2024 CBC W Auto Diffe renti al panel - Blood neutrophils/ 100 leukocytes in blood by automated count 74.9 % low: 41%hig h: 74% high Neutr ophil % 74.9 (H) 41.0 - 74.0 % 11/08 2:09 PM CDT [facility] [place] Not Available Not Available 11/12/2024 11:10:03 11/09/19 25 11/08/2024 CBC W Auto Diffe renti al panel - Blood lymphocytes/ 100 leukocytes in blood by automated count 15.2 % low: 17%hig h: 47% low Lymph ocyte % 15.2 (L) 17.0 - 47.0 % 11/08 2:09 PM CDT [facility] [place] Not Available Not Available 11/12/2024 11:10:03 11/09/19 25 11/08/2024 CBC W Auto Diffe renti al panel - Blood monocytes/10 0 leukocytes in blood by automated count 8.6 % low: 3%high : 11% Monoc yte % 8.6 3.0 - 11.0 % 11/08 2:09 PM CDT [facility] [place] Not Available Not Available 11/12/2024 11:10:03 11/09/19 25 11/08/2024 CBC W Auto Diffe renti al panel - Blood eosinophils/ 100 leukocytes in blood by automated count 0.9 % low: 0%high : 7% Eosin ophil % 0.9 0.0 - 7.0 % 11/08 2:09 PM CDT [facility] [place] Not Available Not Available 11/12/2024 11:10:03 11/09/19 25 11/08/2024 CBC W Auto Diffe renti al panel - Blood basophils/10 0 leukocytes in blood by automated count 0.3 % low: 0%high : 1.6% Basop hil % 0.3 0.0 - 1.6 % 11/08 2:09 PM CDT [facility] [place] Not Available Not Available 11/12/2024 11:10:03 11/09/19 25 11/08/2024 CBC W Auto Diffe renti al panel - Blood immature granulocytes /100 leukocytes in blood by automated count 0.1 % low: 0%high : 1% Immat ure Granu locyt es % 0.1 0.0 - 1.0 % 11/08 2:09 PM CDT [facility] [employer] [facility] Not Available Not Available 11/12/2024 11:10:03 11/09/19 25 11/08/2024 CBC W Auto Diffe renti al panel - Blood neutrophils [#/volume] in blood by automated count 5.17 text: 1.60 - 7.50 x10e9/ L Neutr ophil Absol [place] 5.17 1.60 - 7.50 x10E9 /L 11/08 2:09 PM CDT [facility] [employer] [facility] Not Available Not Available 11/12/2024 11:10:03 11/09/19 25 11/08/2024 CBC W Auto Diffe renti al panel - Blood lymphocytes [#/volume] in blood by automated count 1.05 text: 1.00 - 4.40 x10e9/ L Lymph ocyte Absol [place] 1.05 1.00 - 4.40 x10E9 /L 11/08 2:09 PM CDT [facility] [employer] [facility] Not Available Not Available 11/12/2024 11:10:03 11/09/19 25 11/08/2024 CBC W Auto Diffe renti al panel - Blood monocytes [#/volume] in blood by automated count 0.59 text: 0.15 - 1.00 x10e9/ L Monoc yte Absol [place] 0.59 0.15 - 1.00 x10E9 /L 11/08 2:09 PM CDT [facility] [employer] [facility] Not Available Not Available 11/12/2024 11:10:03 11/09/19 25 11/08/2024 CBC W Auto Diffe renti al panel - Blood eosinophils [#/volume] in blood 0.06 text: 0.00 - 0.60 x10e9/ L Eosin ophil Absol [place] 0.06 0.00 - 0.60 x10E9 /L 11/08 2:09 PM CDT [facility] [place] Not Available Not Available 11/12/2024 11:10:03 11/09/19 25 11/08/2024 CBC W Auto Diffe renti al panel - Blood basophils [#/volume] in blood by automated count 0.02 text: 0.00 - 0.13 x10e9/ L Basop hil Absol [place] 0.02 0.00 - 0.13 x10E9 /L 11/08 2:09 PM CDT [facility] [place] Not Available Not Available 11/12/2024 11:10:03 11/09/19 25 11/08/2024 CBC W Auto Diffe renti al panel - Blood interpretati on and review of laboratory results Abnorm al Not Available Not Available 11:10:03 11/09/19 25 11/08/2024 Basic metab olic 2000 panel - Serum or Plasm a urea nitrogen [mass/volume ] in serum or plasma 12 mg/dL low: 7mg/dL high: 26mg/d L BUN 12 7 - 26 mg/dL 11/08 2:05 PM CDT [facility] [place] Not Available Not Available 11/12/2024 11:10:03 11/09/19 25 11/08/2024 Basic metab olic 1999 panel - Serum or Plasm a creatinine [mass/volume ] in serum or plasma 0.8 mg/dL low: 0.71mg /dLhig h: 1.16mg /dL Creat inine 0.80 0.71 - 1.16 mg/dL 11/08 2:05 PM CDT [facility] [place] Not Available Not Available 11/12/2024 11:10:03 11/09/19 25 11/08/2024 Basic metab olic 1999 panel - Serum or Plasm a sodium [moles/volum e] in serum or plasma 138 mmol/ L low: 136mmo l/Lhig h: 145mmo l/L Sodiu m 138 136 - 145 mmol/ L 11/08 2:05 PM CDT [facility] [place] Not Available Not Available 11/12/2024 11:10:03 03/1411/08/2024 Basic metab olic 1999 panel - Serum or Plasm a potassium [moles/volum e] in serum or plasma 4.4 mmol/ L low: 3.5mmo l/Lhig h: 4.5mmo l/L Potas sium 4.4 3.5 - 4.5 mmol/ L 11/08 2:05 PM CDT [facility] [place] Not Available Not Available 11/12/2024 11:10:03 11/09/1911/08/2024 Basic metab olic 1999 panel - Serum or Plasm a chloride [moles/volum e] in serum or plasma 104 mmol/ L low: 98mmol /Lhigh : 107mmo l/L Chlor sylvia 104 98 - 107 mmol/ L 11/08 2:05 PM CDT [facility] [place] Not Available Not Available 11/12/2024 11:10:03 11/09/19 25 11/08/2024 Basic metab olic 1999 panel - Serum or Plasm a carbon dioxide, total [moles/volum e] in serum or plasma 24 mmol/ L low: 22mmol /Lhigh : 29mmol /L CO2 24 22 - 29 mmol/ L 11/08 2:05 PM T [facility] [place] Not Available Not Available 11/12/2024 11:10:03 11/09/19 25 11/08/2024 Basic metab olic 1999 panel - Serum or Plasm a glucose [mass/volume ] in serum or plasma 276 mg/dL low: 70mg/d Lhigh: 99mg/d L high Gluco se 276 (H) 70 - 99 mg/dL 11/08 2:05 PM T [facility] [place] Not Available Not Available 11/12/2024 11:10:03 11/09/19 25 11/08/2024 Basic metab olic 1999 panel - Serum or Plasm a calcium [moles/volum e] in serum or plasma 9.2 mg/dL low: 8.4mg/ dLhigh : 10.2mg /dL Calci um 9.2 8.4 - 10.2 mg/dL 11/08 2:05 PM T [facility] [place] Not Available Not Available 11/12/2024 11:10:03 11/09/19 25 11/08/2024 Basic metab olic 2000 panel - Serum or Plasm a anion gap 10 low: 6high: 16 Anion Gap 10 6 - 16 11/08 2:05 PM [facility] [place] Not Available Not Available 11/12/2024 11:10:03 11/09/19 25 11/08/2024 Basic metab olic 2000 panel - Serum or Plasm a urea nitrogen/cre atinine [mass ratio] in serum or plasma 15 low: 7high: 23 BUN/C reati nine Ratio 15 7 - 23 11/08 2:05 PM [facility] [place] Not Available Not Available 11/12/2024 11:10:03 11/09/19 25 11/08/2024 Basic metab olic 2000 panel - Serum or Plasm a osmolality calculated 296 text: 275 - 295 mOsm/k g high Osmol ality Calcu lated 296 (H) 275 - 295 mOsm/ kg 11/08 2:05 PM [facility] [place] Not Available Not Available 11/12/2024 11:10:03 11/09/19 25 11/08/2024 Basic metab olic 2000 panel - Serum or Plasm a glomerular filtration rate/1.73 sq M.predicted [volume rate/area] in serum, plasma or blood by creatinine-b ased formula (CKD-epi 2020) text: >=90 mL/min /1.73 m2 eGFR by CKD-E PI >90 >=90 mL/mi n/1.7 3 m2 11/08 2:05 PM [facility] [place] Not Available Not Available 11/12/2024 11:10:03 11/09/19 25 11/08/2024 Basic metab olic 2000 panel - Serum or Plasm a interpretati on and review of laboratory results Abnorm al Not Available Not Available 11:10:03 11/09/19 25 11/08/2024 Blood type and Indir ect antib brigid scree n panel - Blood blood group antibody screen [presence] in serum or plasma NEG Antib brigid Scree n NEG 11/08 2:11 PM [facility] Not Available Not Available 11/12/2024 11:09:55 11/09/19 25 11/08/2024 Blood type and Indir ect antib brigid scree n panel - Blood ABO and Rh group [type] in blood O POS ABO Rh O POS 11/08 2:11 PM CDT [facility] Not Available Not Available 11/12/2024 11:09:55 11/13/19 25 11/12/2024 Gluco se [Mass /volu me] in Arter ial blood glucose [mass/volume ] in capillary blood by glucometer 177 mg/dL low: 70mg/d Lhigh: 99mg/d L high Gluco se WB/PO C 177 (H) 70 - 99 mg/dL 11/12 8:39 PM CDT [facility] [place] Not Available Not Available 12/11/2024 16:15:50 11/13/19 25 11/12/2024 Gluco se [Mass /volu me] in Arter ial blood specimen source identified Cap Finger stick Speci men Type Cap Finge rstic k 11/12 8:39 PM CDT [facility] [place] Not Available Not Available 12/11/2024 16:15:50 11/13/19 25 11/12/2024 Gluco se [Mass /volu me] in Arter ial blood interpretati on and review of laboratory results Abnorm al Not Available Not Available 16:15:50 11/13/19 25 11/12/2024 Phosp hate [Mass /volu me] in Serum or Plasm a phosphate [mass/volume ] in serum or plasma 4.3 mg/dL low: 2.8mg/ dLhigh : 5.1mg/ dL Phosp horus 4.3 2.8 - 5.1 mg/dL 11/12 4:48 PM CDT [facility] [place] Not Available Not Available 12/11/2024 16:15:50 11/13/19 25 11/12/2024 Phosp hate [Mass /volu me] in Serum or Plasm a interpretati on and review of laboratory results Normal Not Available Not Available 11/26 16:15:50 11/13/19 25 11/12/2024 Magne sium [Mass /volu me] in Serum or Plasm a magnesium [mass/volume ] in serum or plasma 1.6 mg/dL low: 1.6mg/ dLhigh : 2.6mg/ dL Magne sium 1.6 1.6 - 2.6 mg/dL 11/12 4:48 PM CDT [facility] Not Available Not Available 12/11/2024 16:15:50 11/13/1911/12/2024 Magne sium [Mass /volu me] in Serum or Plasm a interpretati on and review of laboratory results Normal Not Available Not Available 11/26 16:15:50 11/13/1911/12/2024 Basic metab olic 2000 panel - Serum or Plasm a urea nitrogen [mass/volume ] in serum or plasma 8 mg/dL low: 7mg/dL high: 26mg/d L BUN 8 7 - 26 mg/dL 11/12 4:48 PM CDT [facility] Not Available Not Available 12/11/2024 16:15:50 11/13/19 25 11/12/2024 Basic metab olic 1999 panel - Serum or Plasm a creatinine [mass/volume ] in serum or plasma 0.66 mg/dL low: 0.71mg /dLhig h: 1.16mg /dL low Creat inine 0.66 (L) 0.71 - 1.16 mg/dL 11/12 4:48 PM CDT [facility] Not Available Not Available 12/11/2024 16:15:50 11/13/1911/12/2024 Basic metab olic 2000 panel - Serum or Plasm a sodium [moles/volum e] in serum or plasma 136 mmol/ L low: 136mmo l/Lhig h: 145mmo l/L Sodiu m 136 136 - 145 mmol/ L 11/12 4:48 PM CDT [facility] Not Available Not Available 12/11/2024 16:15:50 11/13/19 25 11/12/2024 Basic metab olic 2000 panel - Serum or Plasm a potassium [moles/volum e] in serum or plasma 4.4 mmol/ L low: 3.5mmo l/Lhig h: 4.5mmo l/L Potas sium 4.4 3.5 - 4.5 mmol/ L 11/12 4:48 PM CDT [facility] [facility] Not Available Not Available 12/11/2024 16:15:50 11/13/19 25 11/12/2024 Basic metab olic 1999 panel - Serum or Plasm a chloride [moles/volum e] in serum or plasma 106 mmol/ L low: 98mmol /Lhigh : 107mmo l/L Chlor sylvia 106 98 - 107 mmol/ L 11/12 4:48 PM CDT [facility] Not Available Not Available 12/11/2024 16:15:50 11/13/1911/12/2024 Basic metab olic 1999 panel - Serum or Plasm a carbon dioxide, total [moles/volum e] in serum or plasma 24 mmol/ L low: 22mmol /Lhigh : 29mmol /L CO2 24 22 - 29 mmol/ L 11/12 4:48 PM CDT [facility] Not Available Not Available 12/11/2024 16:15:50 11/13/1911/12/2024 Basic metab olic 1999 panel - Serum or Plasm a glucose [mass/volume ] in serum or plasma 177 mg/dL low: 70mg/d Lhigh: 99mg/d L high Gluco se 177 (H) 70 - 99 mg/dL 11/12 4:48 PM CDT [facility] Not Available Not Available 12/11/2024 16:15:50 11/13/1911/12/2024 Basic metab olic 1999 panel - Serum or Plasm a calcium [moles/volum e] in serum or plasma 8.5 mg/dL low: 8.4mg/ dLhigh : 10.2mg /dL Calci um 8.5 8.4 - 10.2 mg/dL 11/12 4:48 PM CDT [facility] Not Available Not Available 12/11/2024 16:15:50 11/13/19 25 11/12/2024 Basic metab olic 2000 panel - Serum or Plasm a anion gap 6 low: 6high: 16 Anion Gap 6 6 - 16 11/12 4:48 PM CDT [facility] Not Available Not Available 12/11/2024 16:15:50 11/13/19 25 11/12/2024 Basic metab olic 2000 panel - Serum or Plasm a urea nitrogen/cre atinine [mass ratio] in serum or plasma 12 low: 7high: 23 BUN/C reati nine Ratio 12 7 - 23 11/12 4:48 PM CDT [facility] Not Available Not Available 12/11/2024 16:15:50 11/13/19 25 11/12/2024 Basic metab olic 2000 panel - Serum or Plasm a osmolality calculated 285 text: 275 - 295 mOsm/k g Osmol ality Calcu lated 285 275 - 295 mOsm/ kg 11/12 4:48 PM CDT [facility] Not Available Not Available 12/11/2024 16:15:50 11/13/1911/12/2024 Basic metab olic 2000 panel - Serum or Plasm a glomerular filtration rate [volume rate/area] in serum, plasma or blood by creatinine-b ased formula (CKD-epi 2020)/1.73 sq M text: >=90 mL/min /1.73 m2 eGFR by CKD-E PI >90 >=90 mL/mi n/1.7 3 m2 11/12 4:48 PM CDT [facility] Not Available Not Available 12/11/2024 16:15:50 11/13/19 25 11/12/2024 Basic metab olic 2000 panel - Serum or Plasm a interpretati on and review of laboratory results Abnorm al Not Available Not Available 16:15:50 11/13/19 25 11/12/2024 CBC panel - Blood by Autom ated count leukocytes [#/volume] in blood by automated count 15.2 text: 4.0 - 10.7 x10e9/ L high WBC 15.2 (H) 4.0 - 10.7 x10E9 /L 11/12 4:42 PM CDT [facility] Not Available Not Available 12/11/2024 16:15:50 11/13/1911/12/2024 CBC panel - Blood by Autom ated count erythrocytes [#/volume] in blood by automated count 4.14 text: 4.30 - 5.80 x10e12 /L low RBC Count 4.14 (L) 4.30 - 5.80 x10E1 2/L 11/12 4:42 PM CDT [facility] Not Available Not Available 12/11/2024 16:15:50 11/13/1911/12/2024 CBC panel - Blood by Autom ated count hemoglobin [mass/volume ] in blood 9.8 g/dL low: 13.3g/ dLhigh : 17.5g/ dL low Hemog lobin 9.8 (L) 13.3 - 17.5 g/dL 11/12 4:42 PM CDT [facility] Not Available Not Available 12/11/2024 16:15:50 11/13/1911/12/2024 CBC panel - Blood by Autom ated count hematocrit [volume fraction] of blood by automated count 30.8 % low: 38.7%h igh: 51.1% low Hemat ocrit 30.8 (L) 38.7 - 51.1 % 11/12 4:42 PM CDT [facility] Not Available Not Available 12/11/2024 16:15:50 11/13/1911/12/2024 CBC panel - Blood by Autom ated count MCV [entitic mean volume] in red blood cells by automated count 74.4 fL low: 80fLhi gh: 98fL low MCV 74.4 (L) 80.0 - 98.0 fL 11/12 4:42 PM CDT [facility] Not Available Not Available 12/11/2024 16:15:50 11/13/1911/12/2024 CBC panel - Blood by Autom ated count MCH [entitic mass] by automated count 23.7 pg low: 26.7pg high: 33.6pg low MCH 23.7 (L) 26.7 - 33.6 pg 11/12 4:42 PM [facility] Not Available Not Available 12/11/2024 16:15:50 11/13/19 25 11/12/2024 CBC panel - Blood by Autom ated count MCHC [entitic mass/volume] in red blood cells by automated count 31.8 g/dL low: 31.7g/ dLhigh : 36.3g/ dL MCHC 31.8 31.7 - 36.3 g/dL 11/12 4:42 PM [facility] Not Available Not Available 12/11/2024 16:15:50 11/13/19 25 11/12/2024 CBC panel - Blood by Autom ated count erythrocyte [distwidth] in red blood cells by automated count 20.5 % low: 11.3%h igh: 14.8% high RDW-C V 20.5 (H) 11.3 - 14.8 % 11/12 4:42 PM CDT [facility] Not Available Not Available 12/11/2024 16:15:50 11/13/19 25 11/12/2024 CBC panel - Blood by Autom ated count platelets [#/volume] in blood by automated count 196 text: 150 - 420 x10e9/ L Plate let Count 196 150 - 420 x10E9 /L 11/12 4:42 PM [facility] Not Available Not Available 12/11/2024 16:15:50 11/13/19 25 11/12/2024 CBC panel - Blood by Autom ated count platelet [entitic mean volume] in blood by automated count MPV 11/12 4:42 PM [facility] Not Available Not Available 12/11/2024 16:15:50 11/13/1911/12/2024 CBC panel - Blood by Autom ated count interpretati on and review of laboratory results Abnorm al Not Available Not Available 16:15:50 11/13/19 25 11/12/2024 Gluco se [Mass /volu me] in Arter ial blood glucose [mass/volume ] in capillary blood by glucometer 180 mg/dL low: 70mg/d Lhigh: 99mg/d L high Gluco se WB/PO C 180 (H) 70 - 99 mg/dL 11/12 2:10 PM CDT [facility] Not Available Not Available 12/11/2024 16:15:50 11/13/19 25 11/12/2024 Gluco se [Mass /volu me] in Arter ial blood specimen source identified Cap Finger stick Speci men Type Cap Finge rstic k 11/12 2:10 PM CDT [facility] Not Available Not Available 12/11/2024 16:15:50 11/13/19 25 11/12/2024 Gluco se [Mass /volu me] in Arter ial blood interpretati on and review of laboratory results Abnorm al Not Available Not Available 16:15:50 11/13/19 25 11/12/2024 Gas and Carbo n monox sylvia panel - Arter ial blood pH of arterial blood 7.3 pH low: 7.35pH high: 7.45pH low pH Arter ial 7.30 (L) 7.35 - 7.45 pH 11/12 12:43 PM CDT [facility] Not Available Not Available 12/11/2024 16:15:38 11/13/19 25 11/12/2024 Gas and Carbo n monox sylvia panel - Arter ial blood oxygen [partial pressure] in arterial blood 181 text: 80 - 100 mmHg high pO2 Arter ial 181 (H) 80 - 100 mmHg 11/12 12:43 PM T [facility] Not Available Not Available 12/11/2024 16:15:38 11/13/19 25 11/12/2024 Gas and Carbo n monox sylvia panel - Arter ial blood carbon dioxide [partial pressure] in arterial blood 51 text: 35 - 45 mmHg high pCO2 Arter ial 51 (H) 35 - 45 mmHg 11/12 12:43 PM T [facility] Not Available Not Available 12/11/2024 16:15:38 11/13/19 25 11/12/2024 Gas and Carbo n monox sylvia panel - Arter ial blood bicarbonate [moles/volum e] in arterial blood 25.1 mmol/ L low: 20mmol /Lhigh : 30mmol /L HCO3 Arter ial 25.1 20.0 - 30.0 mmol/ L 11/12 12:43 PM T [facility] [employer] [facility] Not Available Not Available 12/11/2024 16:15:38 11/13/19 25 11/12/2024 Gas and Carbo n monox sylvia panel - Arter ial blood base excess standard in arterial blood by calculation -1.6 mmol/ L low: -2mmol /Lhigh : 2mmol/ L BE Arter ial -1.6 -2.0 - 2.0 mmol/ L 11/12 12:43 PM T [facility] [employer] [facility] Not Available Not Available 12/11/2024 16:15:38 11/13/1911/12/2024 Gas and Carbo n monox sylvia panel - Arter ial blood fractional oxyhemoglobi n in arterial blood 96.1 % Oxyhe moglo bin Arter ial 96.1 % 11/12 12:43 PM [facility] [employer] [facility] Not Available Not Available 12/11/2024 16:15:38 11/13/1911/12/2024 Gas and Carbo n monox sylvia panel - Arter ial blood deoxyhemoglo bin [mass/volume ] in blood text: % Dexoy hemog lobin (HHB) % <1.0 % 11/12 12:43 PM [facility] [employer] [facility] [employer] [facility] Not Available Not Available 12/11/2024 16:15:38 11/13/19 25 11/12/2024 Gas and Carbo n monox sylvia panel - Arter ial blood methemoglobi n/hemoglobin .total in blood 0.9 % low: 0%high : 2% Methe moglo bin 0.9 0.0 - 2.0 % 11/12 12:43 PM [facility] [employer] [facility] [employer] [facility] Not Available Not Available 12/11/2024 16:15:38 11/13/19 25 11/12/2024 Gas and Carbo n monox sylvia panel - Arter ial blood carboxyhemog lobin/hemogl obin.total in blood 3 % low: 0%high : 2% high Carbo xyhem oglob in 3.0 (H) 0.0 - 2.0 % 11/12 12:43 PM CDT [facility] Not Available Not Available 12/11/2024 16:15:38 11/13/19 25 11/12/2024 Gas and Carbo n monox sylvia panel - Arter ial blood oxygen content in arterial blood 13.1 mL/dL text: interp ret within clinic al contex t O2 Ash nt Arter ial 13.1 Inter pret withi n clini isadora ash xt ml/dL 11/12 12:43 PM CDT [facility] Not Available Not Available 12/11/2024 16:15:38 11/13/19 25 11/12/2024 Gas and Carbo n monox sylvia panel - Arter ial blood hemoglobin [mass/volume ] in blood by oximetry 9.4 g/dL low: 12g/dL high: 17.6g/ dL low Hemog lobin by COOX 9.4 (L) 12.0 - 17.6 g/dL 11/12 12:43 PM CDT [facility] Not Available Not Available 12/11/2024 16:15:38 11/13/19 25 11/12/2024 Gas and Carbo n monox sylvia panel - Arter ial blood oxygen saturation in arterial blood 100 % low: 90%hig h: 100% O2 Satur ation Arter ial 100 90 - 100 % 11/12 12:43 PM CDT [facility] Not Available Not Available 12/11/2024 16:15:38 11/13/19 25 11/12/2024 Gas and Carbo n monox sylvia panel - Arter ial blood sodium [moles/volum e] in serum or plasma 131 mmol/ L low: 135mmo l/Lhig h: 145mmo l/L low Sodiu m Whole Blood 131 (L) 135 - 145 mmol/ L 11/12 12:43 PM CDT [facility] Not Available Not Available 12/11/2024 16:15:38 11/13/19 25 11/12/2024 Gas and Carbo n monox sylvia panel - Arter ial blood potassium [moles/volum e] in serum or plasma 4.1 mmol/ L low: 3.5mmo l/Lhig h: 5.5mmo l/L Potas sium Whole Blood 4.1 3.5 - 5.5 mmol/ L 11/12 12:43 PM CDT [facility] Not Available Not Available 12/11/2024 16:15:38 11/13/19 25 11/12/2024 Gas and Carbo n monox sylvia panel - Arter ial blood chloride [moles/volum e] in serum or plasma 105 mmol/ L low: 78mmol /Lhigh : 107mmo l/L Chlor sylvia WB 105 78 - 107 mmol/ L 11/12 12:43 PM CDT [facility] Not Available Not Available 12/11/2024 16:15:38 11/13/19 25 11/12/2024 Gas and Carbo n monox sylvia panel - Arter ial blood calcium.ioni zed [moles/volum e] in blood 1.26 mmol/ L Calci um Ioniz ed 1.26 mmol/ L 11/12 12:43 PM CDT [facility] Not Available Not Available 12/11/2024 16:15:38 11/13/1911/12/2024 Gas and Carbo n monox sylvia panel - Arter ial blood calcium.ioni zed [moles/volum e] adjusted to pH 7.4 in blood 1.21 mmol/ L low: 1.19mm ol/Lhi gh: 1.34mm ol/L Ioniz ed Calci um pH Adjus anibal 1.21 1.19 - 1.34 mmol/ L 11/12 12:43 PM CDT [facility] Not Available Not Available 12/11/2024 16:15:38 11/13/19 25 11/12/2024 Gas and Carbo n monox sylvia panel - Arter ial blood anion gap in blood by calculation 1 mmol/ L low: 6mmol/ Lhigh: 16mmol /L low Anion Gap (AG) Arter ial 1 (L) 6 - 16 mmol/ L 11/12 12:43 PM CDT [facility] Not Available Not Available 12/11/2024 16:15:38 11/13/19 25 11/12/2024 Gas and Carbo n monox sylvia panel - Arter ial blood glucose [mass/volume ] in blood 193 mg/dL low: 70mg/d Lhigh: 99mg/d L high Gluco se WB 193 (H) 70 - 99 mg/dL 11/12 12:43 PM CDT [facility] Not Available Not Available 12/11/2024 16:15:38 11/13/19 25 11/12/2024 Gas and Carbo n monox sylvia panel - Arter ial blood lactate [moles/volum e] in blood 1.3 mmol/ L high: 2mmol/ L Lacti c Acid Whole Blood 1.3 <=2.0 mmol/ L 11/12 12:43 PM CDT [facility] Not Available Not Available 12/11/2024 16:15:38 11/13/19 25 11/12/2024 Gas and Carbo n monox sylvia panel - Arter ial blood interpretati on and review of laboratory results Abnorm al Not Available Not Available 16:15:38 11/13/19 25 11/12/2024 Gas and Carbo n monox sylvia panel - Arter ial blood pH of arterial blood 7.31 pH low: 7.35pH high: 7.45pH low pH Arter ial 7.31 (L) 7.35 - 7.45 pH 11/12 12:13 PM T [facility] Not Available Not Available 12/11/2024 16:15:49 11/13/19 25 11/12/2024 Gas and Carbo n monox sylvia panel - Arter ial blood oxygen [partial pressure] in arterial blood 185 text: 80 - 100 mmHg high pO2 Arter ial 185 (H) 80 - 100 mmHg 11/12 12:13 PM CDT [facility] Not Available Not Available 12/11/2024 16:15:49 11/13/19 25 11/12/2024 Gas and Carbo n monox sylvia panel - Arter ial blood carbon dioxide [partial pressure] in arterial blood 49 text: 35 - 45 mmHg high pCO2 Arter ial 49 (H) 35 - 45 mmHg 11/12 12:13 PM T [facility] [employer] [facility] Not Available Not Available 12/11/2024 16:15:49 11/13/19 25 11/12/2024 Gas and Carbo n monox sylvia panel - Arter ial blood bicarbonate [moles/volum e] in arterial blood 24.7 mmol/ L low: 20mmol /Lhigh : 30mmol /L HCO3 Arter ial 24.7 20.0 - 30.0 mmol/ L 11/12 12:13 PM T [facility] [employer] [facility] [facility] Not Available Not Available 12/11/2024 16:15:49 11/13/1911/12/2024 Gas and Carbo n monox sylvia panel - Arter ial blood base excess standard in arterial blood by calculation -1.7 mmol/ L low: -2mmol /Lhigh : 2mmol/ L BE Arter ial -1.7 -2.0 - 2.0 mmol/ L 11/12 12:13 PM [facility] [employer] [facility] Not Available Not Available 12/11/2024 16:15:49 11/13/1911/12/2024 Gas and Carbo n monox sylvia panel - Arter ial blood fractional oxyhemoglobi n in arterial blood 96 % Oxyhe moglo bin Arter ial 96.0 % 11/12 12:13 PM [facility] [employer] [facility] Not Available Not Available 12/11/2024 16:15:49 11/13/19 25 11/12/2024 Gas and Carbo n monox sylvia panel - Arter ial blood deoxyhemoglo bin [mass/volume ] in blood text: % Dexoy hemog lobin (HHB) % <1.0 % 11/12 12:13 PM [facility] [employer] [facility] Not Available Not Available 12/11/2024 16:15:49 11/13/19 25 11/12/2024 Gas and Carbo n monox sylvia panel - Arter ial blood methemoglobi n/hemoglobin .total in blood low: 0%high : 2% Methe moglo bin <0.8 0.0 - 2.0 % 11/12 12:13 PM CDT [facility] Not Available Not Available 12/11/2024 16:15:49 11/13/19 25 11/12/2024 Gas and Carbo n monox sylvia panel - Arter ial blood carboxyhemog lobin/hemogl obin.total in blood 2.9 % low: 0%high : 2% high Carbo xyhem oglob in 2.9 (H) 0.0 - 2.0 % 11/12 12:13 PM CDT [facility] Not Available Not Available 12/11/2024 16:15:49 11/13/19 25 11/12/2024 Gas and Carbo n monox sylvia panel - Arter ial blood oxygen content in arterial blood 12.1 mL/dL text: interp ret within clinic al contex t O2 Ash nt Arter ial 12.1 Inter pret withi n clini isadora ash xt ml/dL 11/12 12:13 PM CDT [facility] Not Available Not Available 12/11/2024 16:15:49 11/13/19 25 11/12/2024 Gas and Carbo n monox sylvia panel - Arter ial blood hemoglobin [mass/volume ] in blood by oximetry 8.6 g/dL low: 12g/dL high: 17.6g/ dL low Hemog lobin by COOX 8.6 (L) 12.0 - 17.6 g/dL 11/12 12:13 PM CDT [facility] Not Available Not Available 12/11/2024 16:15:49 11/13/19 25 11/12/2024 Gas and Carbo n monox sylvia panel - Arter ial blood oxygen saturation in arterial blood 99 % low: 90%hig h: 100% O2 Satur ation Arter ial 99 90 - 100 % 11/12 12:13 PM CDT [facility] Not Available Not Available 12/11/2024 16:15:49 11/13/19 25 11/12/2024 Gas and Carbo n monox sylvia panel - Arter ial blood sodium [moles/volum e] in serum or plasma 133 mmol/ L low: 135mmo l/Lhig h: 145mmo l/L low Sodiu m Whole Blood 133 (L) 135 - 145 mmol/ L 11/12 12:13 PM CDT [facility] Not Available Not Available 12/11/2024 16:15:49 11/13/19 25 11/12/2024 Gas and Carbo n monox sylvia panel - Arter ial blood potassium [moles/volum e] in serum or plasma 3.8 mmol/ L low: 3.5mmo l/Lhig h: 5.5mmo l/L Potas sium Whole Blood 3.8 3.5 - 5.5 mmol/ L 11/12 12:13 PM CDT [facility] Not Available Not Available 12/11/2024 16:15:49 11/13/19 25 11/12/2024 Gas and Carbo n monox sylvia panel - Arter ial blood chloride [moles/volum e] in serum or plasma 102 mmol/ L low: 78mmol /Lhigh : 107mmo l/L Chlor sylvia WB 102 78 - 107 mmol/ L 11/12 12:13 PM CDT [facility] Not Available Not Available 12/11/2024 16:15:49 11/13/19 25 11/12/2024 Gas and Carbo n monox sylvia panel - Arter ial blood calcium.ioni zed [moles/volum e] in blood 1.24 mmol/ L Calci um Ioniz ed 1.24 mmol/ L 11/12 12:13 PM CDT [facility] Not Available Not Available 12/11/2024 16:15:49 11/13/19 25 11/12/2024 Gas and Carbo n monox sylvia panel - Arter ial blood calcium.ioni zed [moles/volum e] adjusted to pH 7.4 in blood 1.2 mmol/ L low: 1.19mm ol/Lhi gh: 1.34mm ol/L Ioniz ed Calci um pH Adjus anibal 1.20 1.19 - 1.34 mmol/ L 11/12 12:13 PM [facility] Not Available Not Available 12/11/2024 16:15:49 11/13/19 25 11/12/2024 Gas and Carbo n monox sylvia panel - Arter ial blood anion gap in blood by calculation 6 mmol/ L low: 6mmol/ Lhigh: 16mmol /L Anion Gap (AG) Arter ial 6 6 - 16 mmol/ L 11/12 12:13 PM T [facility] Not Available Not Available 12/11/2024 16:15:49 11/13/19 25 11/12/2024 Gas and Carbo n monox sylvia panel - Arter ial blood glucose [mass/volume ] in blood 175 mg/dL low: 70mg/d Lhigh: 99mg/d L high Gluco se WB 175 (H) 70 - 99 mg/dL 11/12 12:13 PM T [facility] Not Available Not Available 12/11/2024 16:15:49 11/13/19 25 11/12/2024 Gas and Carbo n monox sylvia panel - Arter ial blood lactate [moles/volum e] in blood 1.2 mmol/ L high: 2mmol/ L Lacti c Acid Whole Blood 1.2 <=2.0 mmol/ L 11/12 12:13 PM T [facility] Not Available Not Available 12/11/2024 16:15:49 11/13/19 25 11/12/2024 Gas and Carbo n monox sylvia panel - Arter ial blood interpretati on and review of laboratory results Abnorm al Not Available Not Available 16:15:49 11/13/19 25 11/12/2024 Gas and Carbo n monox sylvia panel - Arter ial blood pH of arterial blood 7.35 pH low: 7.35pH high: 7.45pH pH Arter ial 7.35 7.35 - 7.45 pH 11/12 10:57 AM T [facility] Not Available Not Available 12/11/2024 16:15:49 11/13/19 25 11/12/2024 Gas and Carbo n monox sylvia panel - Arter ial blood oxygen [partial pressure] in arterial blood 186 text: 80 - 100 mmHg high pO2 Arter ial 186 (H) 80 - 100 mmHg 11/12 10:57 AM [facility] [employer] [facility] Not Available Not Available 12/11/2024 16:15:49 11/13/19 25 11/12/2024 Gas and Carbo n monox sylvia panel - Arter ial blood carbon dioxide [partial pressure] in arterial blood 47 text: 35 - 45 mmHg high pCO2 Arter ial 47 (H) 35 - 45 mmHg 11/12 10:57 AM [facility] Not Available Not Available 12/11/2024 16:15:49 11/13/1911/12/2024 Gas and Carbo n monox sylvia panel - Arter ial blood bicarbonate [moles/volum e] in arterial blood 25.9 mmol/ L low: 20mmol /Lhigh : 30mmol /L HCO3 Arter ial 25.9 20.0 - 30.0 mmol/ L 11/12 10:57 AM [facility] [employer] [facility] Not Available Not Available 12/11/2024 16:15:49 11/13/19 25 11/12/2024 Gas and Carbo n monox sylvia panel - Arter ial blood base excess standard in arterial blood by calculation 0.1 mmol/ L low: -2mmol /Lhigh : 2mmol/ L BE Arter ial 0.1 -2.0 - 2.0 mmol/ L 11/12 10:57 AM [facility] [employer] [facility] Not Available Not Available 12/11/2024 16:15:49 11/13/19 25 11/12/2024 Gas and Carbo n monox sylvia panel - Arter ial blood fractional oxyhemoglobi n in arterial blood 95.4 % Oxyhe moglo bin Arter ial 95.4 % 11/12 10:57 AM [facility] [employer] [facility] Not Available Not Available 12/11/2024 16:15:49 11/13/19 25 11/12/2024 Gas and Carbo n monox sylvia panel - Arter ial blood deoxyhemoglo bin [mass/volume ] in blood text: % Dexoy hemog lobin (HHB) % <1.0 % 11/12 10:57 AM CDT [facility] Not Available Not Available 12/11/2024 16:15:49 11/13/19 25 11/12/2024 Gas and Carbo [employer] monox sylvia panel - Arter ial blood methemoglobi n/hemoglobin .total in blood low: 0%high : 2% Methe moglo bin <0.8 0.0 - 2.0 % 11/12 10:57 AM CDT [facility] Not Available Not Available 12/11/2024 16:15:49 11/13/19 25 11/12/2024 Gas and Carbo n monox sylvia panel - Arter ial blood carboxyhemog lobin/hemogl obin.total in blood 3.7 % low: 0%high : 2% high Carbo xyhem oglob in 3.7 (H) 0.0 - 2.0 % 11/12 10:57 AM CDT [facility] Not Available Not Available 12/11/2024 16:15:49 11/13/19 25 11/12/2024 Gas and Carbo n monox sylvia panel - Arter ial blood oxygen content in arterial blood 11.2 mL/dL text: interp ret within clinic al contex t O2 Ash nt Arter ial 11.2 Inter pret withi n clini isadora ash xt ml/dL 11/12 10:57 AM CDT [facility] Not Available Not Available 12/11/2024 16:15:49 11/13/19 25 11/12/2024 Gas and Carbo n monox sylvia panel - Arter ial blood hemoglobin [mass/volume ] in blood by oximetry 8 g/dL low: 12g/dL high: 17.6g/ dL low Hemog lobin by COOX 8.0 (L) 12.0 - 17.6 g/dL 11/12 10:57 AM CDT [facility] Not Available Not Available 12/11/2024 16:15:49 11/13/19 25 11/12/2024 Gas and Carbo n monox sylvia panel - Arter ial blood oxygen saturation in arterial blood 100 % low: 90%hig h: 100% O2 Satur ation Arter ial 100 90 - 100 % 11/12 10:57 AM T [facility] Not Available Not Available 12/11/2024 16:15:49 11/13/19 25 11/12/2024 Gas and Carbo n monox sylvia panel - Arter ial blood sodium [moles/volum e] in serum or plasma 132 mmol/ L low: 135mmo l/Lhig h: 145mmo l/L low Sodiu m Whole Blood 132 (L) 135 - 145 mmol/ L 11/12 10:57 AM CDT [facility] Not Available Not Available 12/11/2024 16:15:49 11/13/1911/12/2024 Gas and Carbo n monox sylvia panel - Arter ial blood potassium [moles/volum e] in serum or plasma 3.5 mmol/ L low: 3.5mmo l/Lhig h: 5.5mmo l/L Potas sium Whole Blood 3.5 3.5 - 5.5 mmol/ L 11/12 10:57 AM T [facility] Not Available Not Available 12/11/2024 16:15:49 11/13/1911/12/2024 Gas and Carbo n monox sylvia panel - Arter ial blood chloride [moles/volum e] in serum or plasma 103 mmol/ L low: 78mmol /Lhigh : 107mmo l/L Chlor sylvia WB 103 78 - 107 mmol/ L 11/12 10:57 AM [facility] [place] Not Available Not Available 12/11/2024 16:15:49 11/13/19 25 11/12/2024 Gas and Carbo n monox sylvia panel - Arter ial blood calcium.ioni zed [moles/volum e] in blood 1.18 mmol/ L Calci um Ioniz ed 1.18 mmol/ L 11/12 10:57 AM T [facility] [place] Not Available Not Available 12/11/2024 16:15:49 11/13/19 25 11/12/2024 Gas and Carbo n monox sylvia panel - Arter ial blood calcium.ioni zed [moles/volum e] adjusted to pH 7.4 in blood 1.16 mmol/ L low: 1.19mm ol/Lhi gh: 1.34mm ol/L low Ioniz ed Calci um pH Adjus anibal 1.16 (L) 1.19 - 1.34 mmol/ L 11/12 10:57 AM CDT [facility] [place] Not Available Not Available 12/11/2024 16:15:49 11/13/19 25 11/12/2024 Gas and Carbo n monox sylvia panel - Arter ial blood anion gap in blood by calculation 3 mmol/ L low: 6mmol/ Lhigh: 16mmol /L low Anion Gap (AG) Arter ial 3 (L) 6 - 16 mmol/ L 11/12 10:57 AM CDT [facility] [employer] [facility] [place] Not Available Not Available 12/11/2024 16:15:49 11/13/1911/12/2024 Gas and Carbo n monox sylvia panel - Arter ial blood glucose [mass/volume ] in blood 208 mg/dL low: 70mg/d Lhigh: 99mg/d L high Gluco se WB 208 (H) 70 - 99 mg/dL 11/12 10:57 AM CDT [facility] [employer] [facility] [place] Not Available Not Available 12/11/2024 16:15:49 11/13/1911/12/2024 Gas and Carbo n monox sylvia panel - Arter ial blood lactate [moles/volum e] in blood 1.1 mmol/ L high: 2mmol/ L Lacti c Acid Whole Blood 1.1 <=2.0 mmol/ L 11/12 10:57 AM CDT [facility] [employer] [facility] [place] Not Available Not Available 12/11/2024 16:15:49 11/13/19 25 11/12/2024 Gas and Carbo n monox sylvia panel - Arter ial blood interpretati on and review of laboratory results Abnorm al Not Available Not Available 16:15:49 11/13/19 25 11/12/2024 Gluco se [Mass /volu me] in Arter ial blood glucose [mass/volume ] in capillary blood by glucometer 189 mg/dL low: 70mg/d Lhigh: 99mg/d L high Gluco se WB/PO C 189 (H) 70 - 99 mg/dL 11/12 9:48 AM CDT [facility] [place] Not Available Not Available 11/12/2024 11:10:03 11/13/19 25 11/12/2024 Gluco se [Mass /volu me] in Arter ial blood specimen source identified Venous Speci men Type Venou s 11/12 9:48 AM CDT [facility] [place] Not Available Not Available 11/12/2024 11:10:03 11/13/1911/12/2024 Gluco se [Mass /volu me] in Arter ial blood interpretati on and review of laboratory results Abnorm al Not Available Not Available 11:10:03 11/13/19 25 11/12/2024 Blood type and Indir ect antib brigid scree n panel - Blood blood group antibody screen [presence] in serum or plasma NEG Antib brigid Scree n NEG 11/12 7:59 AM T [facility] Not Available Not Available 11/12/2024 11:10:03 11/13/19 25 11/12/2024 Blood type and Indir ect antib brigid scree n panel - Blood ABO and Rh group [type] in blood O POS ABO Rh O POS 11/12 7:59 AM T [facility] Not Available Not Available 11/12/2024 11:10:03 11/14/19 25 11/13/2024 CBC W Auto Diffe renti al panel - Blood leukocytes [#/volume] in blood by automated count 12.8 text: 4.0 - 10.7 x10e9/ L high WBC 12.8 (H) 4.0 - 10.7 x10E9 /L 11/13 5:48 PM CDT [facility] [place] Not Available Not Available 12/11/2024 16:15:51 11/14/19 25 11/13/2024 CBC W Auto Diffe renti al panel - Blood erythrocytes [#/volume] in blood by automated count 4.13 text: 4.30 - 5.80 x10e12 /L low RBC Count 4.13 (L) 4.30 - 5.80 x10E1 2/L 11/13 5:48 PM CDT [facility] [place] Not Available Not Available 12/11/2024 16:15:51 11/14/19 25 11/13/2024 CBC W Auto Diffe renti al panel - Blood hemoglobin [mass/volume ] in blood 10.5 g/dL low: 13.3g/ dLhigh : 17.5g/ dL low Hemog lobin 10.5 (L) 13.3 - 17.5 g/dL 11/13 5:48 PM CDT [facility] [place] Not Available Not Available 12/11/2024 16:15:51 11/14/1911/13/2024 CBC W Auto Diffe renrodney al panel - Blood hematocrit [volume fraction] of blood by automated count 32 % low: 38.7%h igh: 51.1% low Hemat ocrit 32.0 (L) 38.7 - 51.1 % 11/13 5:48 PM CDT [facility] Not Available Not Available 12/11/2024 16:15:51 11/14/1911/13/2024 CBC W Auto Diffe marisolti al panel - Blood MCV [entitic mean volume] in red blood cells by automated count 77.5 fL low: 80fLhi gh: 98fL low MCV 77.5 (L) 80.0 - 98.0 fL 11/13 5:48 PM CDT [facility] [place] Not Available Not Available 12/11/2024 16:15:51 11/14/19 25 11/13/2024 CBC W Auto Diffe renti al panel - Blood MCH [entitic mass] by automated count 25.4 pg low: 26.7pg high: 33.6pg low MCH 25.4 (L) 26.7 - 33.6 pg 11/13 5:48 PM CDT [facility] [place] Not Available Not Available 12/11/2024 16:15:51 11/14/19 25 11/13/2024 CBC W Auto Diffe renti al panel - Blood MCHC [entitic mass/volume] in red blood cells by automated count 32.8 g/dL low: 31.7g/ dLhigh : 36.3g/ dL MCHC 32.8 31.7 - 36.3 g/dL 11/13 5:48 PM CDT [facility] [place] Not Available Not Available 12/11/2024 16:15:51 11/14/19 25 11/13/2024 CBC W Auto Diffe renti al panel - Blood erythrocyte [distwidth] in red blood cells by automated count 19.7 % low: 11.3%h igh: 14.8% high RDW-C V 19.7 (H) 11.3 - 14.8 % 11/13 5:48 PM CDT [facility] [place] Not Available Not Available 12/11/2024 16:15:51 11/14/19 25 11/13/2024 CBC W Auto Diffe renti al panel - Blood platelets [#/volume] in blood by automated count 140 text: 150 - 420 x10e9/ L low Plate let Count 140 (L) 150 - 420 x10E9 /L 11/13 5:48 PM CDT [facility] [place] Not Available Not Available 12/11/2024 16:15:51 11/14/1911/13/2024 CBC W Auto Diffe renti al panel - Blood interpretati on and review of laboratory results Abnorm al Not Available Not Available 16:15:51 11/14/1911/13/2024 Gluco se [Mass /volu me] in Arter ial blood glucose [mass/volume ] in capillary blood by glucometer 97 mg/dL low: 70mg/d Lhigh: 99mg/d L Gluco se WB/PO C 97 70 - 99 mg/dL 11/13 5:09 PM CDT [facility] [place] Not Available Not Available 12/11/2024 16:15:51 11/14/19 25 11/13/2024 Gluco se [Mass /volu me] in Arter ial blood specimen source identified Venous Speci men Type Venou s 11/13 5:09 PM [facility] Not Available Not Available 12/11/2024 16:15:51 11/14/1911/13/2024 CBC panel - Blood by Autom ated count leukocytes [#/volume] in blood by automated count 9.2 text: 4.0 - 10.7 x10e9/ L WBC 9.2 4.0 - 10.7 x10E9 /L 11/13 1:32 PM CDT [facility] Not Available Not Available 12/11/2024 16:15:38 11/14/19 25 11/13/2024 CBC panel - Blood by Autom ated count erythrocytes [#/volume] in blood by automated count 2.73 text: 4.30 - 5.80 x10e12 /L low RBC Count 2.73 (L) 4.30 - 5.80 x10E1 2/L 11/13 1:32 PM CDT [facility] Not Available Not Available 12/11/2024 16:15:38 11/14/1911/13/2024 CBC panel - Blood by Autom ated count hemoglobin [mass/volume ] in blood 6.4 g/dL low: 13.3g/ dLhigh : 17.5g/ dL low Hemog lobin 6.4 (L) 13.3 - 17.5 g/dL 11/13 1:32 PM CDT [facility] Not Available Not Available 12/11/2024 16:15:38 11/14/1911/13/2024 CBC panel - Blood by Autom ated count hematocrit [volume fraction] of blood by automated count 20.4 % low: 38.7%h igh: 51.1% low Hemat ocrit 20.4 (L) 38.7 - 51.1 % 11/13 1:32 PM T [facility] Not Available Not Available 12/11/2024 16:15:38 11/14/19 25 11/13/2024 CBC panel - Blood by Autom ated count MCV [entitic mean volume] in red blood cells by automated count 74.7 fL low: 80fLhi gh: 98fL low MCV 74.7 (L) 80.0 - 98.0 fL 11/13 1:32 PM CDT [facility] Not Available Not Available 12/11/2024 16:15:38 11/14/19 25 11/13/2024 CBC panel - Blood by Autom ated count MCH [entitic mass] by automated count 23.4 pg low: 26.7pg high: 33.6pg low MCH 23.4 (L) 26.7 - 33.6 pg 11/13 1:32 PM CDT [facility] Not Available Not Available 12/11/2024 16:15:38 11/14/19 25 11/13/2024 CBC panel - Blood by Autom ated count MCHC [entitic mass/volume] in red blood cells by automated count 31.4 g/dL low: 31.7g/ dLhigh : 36.3g/ dL low MCHC 31.4 (L) 31.7 - 36.3 g/dL 11/13 1:32 PM CDT [facility] Not Available Not Available 12/11/2024 16:15:38 11/14/1911/13/2024 CBC panel - Blood by Autom ated count erythrocyte [distwidth] in red blood cells by automated count 20.8 % low: 11.3%h igh: 14.8% high RDW-C V 20.8 (H) 11.3 - 14.8 % 11/13 1:32 PM CDT [facility] Not Available Not Available 12/11/2024 16:15:38 11/14/19 25 11/13/2024 CBC panel - Blood by Autom ated count platelets [#/volume] in blood by automated count 114 text: 150 - 420 x10e9/ L low Plate let Count 114 (L) 150 - 420 x10E9 /L 11/13 1:32 PM CDT [facility] Not Available Not Available 12/11/2024 16:15:38 11/14/19 25 11/13/2024 CBC panel - Blood by Autom ated count platelet [entitic mean volume] in blood by automated count 9.2 fL low: 7.8fLh igh: 11.4fL MPV 9.2 7.8 - 11.4 fL 11/13 1:32 PM CDT [facility] [employer] [facility] [place] Not Available Not Available 12/11/2024 16:15:38 11/14/19 25 11/13/2024 CBC panel - Blood by Autom ated count interpretati on and review of laboratory results Abnorm al Not Available Not Available 16:15:38 11/14/19 25 11/13/2024 Gluco se [Mass /volu me] in Arter ial blood glucose [mass/volume ] in capillary blood by glucometer 135 mg/dL low: 70mg/d Lhigh: 99mg/d L high Gluco se WB/PO C 135 (H) 70 - 99 mg/dL 11/13 11:16 AM CDT [facility] [employer] [facility] [place] Not Available Not Available 12/11/2024 16:15:51 11/14/19 25 11/13/2024 Gluco se [Mass /volu me] in Arter ial blood specimen source identified Cap Finger stick Speci men Type Cap Finge rstic k 11/13 11:16 AM CDT [facility] [employer] [facility] [place] Not Available Not Available 12/11/2024 16:15:51 11/14/19 25 11/13/2024 Gluco se [Mass /volu me] in Arter ial blood interpretati on and review of laboratory results Abnorm al Not Available Not Available 16:15:51 11/14/19 25 11/13/2024 Gluco se [Mass /volu me] in Arter ial blood glucose [mass/volume ] in capillary blood by glucometer 82 mg/dL low: 70mg/d Lhigh: 99mg/d L Gluco se WB/PO C 82 70 - 99 mg/dL 11/13 11:16 AM CDT [facility] [employer] [facility] [place] Not Available Not Available 12/11/2024 16:15:51 11/14/19 25 11/13/2024 Gluco se [Mass /volu me] in Arter ial blood specimen source identified Cap Finger stick Speci men Type Cap Finge rstic k 11/13 11:16 AM CDT [facility] [place] Not Available Not Available 12/11/2024 16:15:51 11/14/19 25 11/13/2024 Gluco se [Mass /volu me] in Arter ial blood glucose [mass/volume ] in capillary blood by glucometer 66 mg/dL low: 70mg/d Lhigh: 99mg/d L low Gluco se WB/PO C 66 (L) 70 - 99 mg/dL 11/13 9:37 AM CDT [facility] [place] Not Available Not Available 12/11/2024 16:15:51 11/14/19 25 11/13/2024 Gluco se [Mass /volu me] in Arter ial blood specimen source identified Cap Finger stick Speci men Type Cap Finge rstic k 11/13 9:37 AM T [facility] [place] Not Available Not Available 12/11/2024 16:15:51 11/14/19 25 11/13/2024 Gluco se [Mass /volu me] in Arter ial blood interpretati on and review of laboratory results Abnorm al Not Available Not Available 16:15:51 11/14/19 25 11/13/2024 Gluco se [Mass /volu me] in Arter ial blood glucose [mass/volume ] in capillary blood by glucometer 62 mg/dL low: 70mg/d Lhigh: 99mg/d L low Gluco se WB/PO C 62 (L) 70 - 99 mg/dL 11/13 9:37 AM T [facility] [place] Not Available Not Available 12/11/2024 16:15:51 11/14/19 25 11/13/2024 Gluco se [Mass /volu me] in Arter ial blood specimen source identified Cap Finger stick Speci men Type Cap Finge rstic k 11/13 9:37 AM CDT [facility] [place] Not Available Not Available 12/11/2024 16:15:51 11/14/19 25 11/13/2024 Gluco se [Mass /volu me] in Arter ial blood interpretati on and review of laboratory results Abnorm al Not Available Not Available 16:15:51 11/14/1911/13/2024 Phosp hate [Mass /volu me] in Serum or Plasm a phosphate [mass/volume ] in serum or plasma 4.6 mg/dL low: 2.8mg/ dLhigh : 5.1mg/ dL Phosp horus 4.6 2.8 - 5.1 mg/dL 11/13 4:17 AM CDT [facility] [place] Not Available Not Available 12/11/2024 16:15:50 11/14/1911/13/2024 Phosp hate [Mass /volu me] in Serum or Plasm a interpretati on and review of laboratory results Normal Not Available Not Available 11/26 16:15:50 11/14/1911/13/2024 CBC W Auto Diffe renti al panel - Blood leukocytes [#/volume] in blood by automated count 11.6 text: 4.0 - 10.7 x10e9/ L high WBC 11.6 (H) 4.0 - 10.7 x10E9 /L 11/13 4:03 AM T [facility] [place] Not Available Not Available 12/11/2024 16:15:50 11/14/1911/13/2024 CBC W Auto Diffe renti al panel - Blood erythrocytes [#/volume] in blood by automated count 3.95 text: 4.30 - 5.80 x10e12 /L low RBC Count 3.95 (L) 4.30 - 5.80 x10E1 2/L 11/13 4:03 AM T [facility] [place] Not Available Not Available 12/11/2024 16:15:50 11/14/1911/13/2024 CBC W Auto Diffe renti al panel - Blood hemoglobin [mass/volume ] in blood 9.3 g/dL low: 13.3g/ dLhigh : 17.5g/ dL low Hemog lobin 9.3 (L) 13.3 - 17.5 g/dL 11/13 4:03 AM CDT [facility] [place] Not Available Not Available 12/11/2024 16:15:50 11/14/19 25 11/13/2024 CBC W Auto Diffe renti al panel - Blood hematocrit [volume fraction] of blood by automated count 28.8 % low: 38.7%h igh: 51.1% low Hemat ocrit 28.8 (L) 38.7 - 51.1 % 11/13 4:03 AM [facility] [place] Not Available Not Available 12/11/2024 16:15:50 11/14/19 25 11/13/2024 CBC W Auto Diffe renti al panel - Blood MCV [entitic mean volume] in red blood cells by automated count 72.9 fL low: 80fLhi gh: 98fL low MCV 72.9 (L) 80.0 - 98.0 fL 11/13 4:03 AM [facility] Not Available Not Available 12/11/2024 16:15:50 11/14/19 25 11/13/2024 CBC W Auto Diffe marisolti al panel - Blood MCH [entitic mass] by automated count 23.5 pg low: 26.7pg high: 33.6pg low MCH 23.5 (L) 26.7 - 33.6 pg 11/13 4:03 AM [facility] [place] Not Available Not Available 12/11/2024 16:15:50 11/14/19 25 11/13/2024 CBC W Auto Diffe marisolti al panel - Blood MCHC [entitic mass/volume] in red blood cells by automated count 32.3 g/dL low: 31.7g/ dLhigh : 36.3g/ dL MCHC 32.3 31.7 - 36.3 g/dL 11/13 4:03 AM [facility] [employer] [facility] Not Available Not Available 12/11/2024 16:15:50 11/14/19 25 11/13/2024 CBC W Auto Diffe renti al panel - Blood erythrocyte [distwidth] in red blood cells by automated count 20.4 % low: 11.3%h igh: 14.8% high RDW-C V 20.4 (H) 11.3 - 14.8 % 11/13 4:03 AM [facility] [place] Not Available Not Available 12/11/2024 16:15:50 11/14/19 25 11/13/2024 CBC W Auto Diffe renti al panel - Blood platelets [#/volume] in blood by automated count 175 text: 150 - 420 x10e9/ L Plate let Count 175 150 - 420 x10E9 /L 11/13 4:03 AM CDT [facility] [place] Not Available Not Available 12/11/2024 16:15:50 11/14/19 25 11/13/2024 CBC W Auto Diffe renti al panel - Blood platelet [entitic mean volume] in blood by automated count MPV 11/13 4:03 AM CDT [facility] [place] Not Available Not Available 12/11/2024 16:15:50 11/14/19 25 11/13/2024 CBC W Auto Diffe renti al panel - Blood neutrophils/ leukocytes in blood by automated count 79.9 % low: 41%hig h: 74% high Neutr ophil % 79.9 (H) 41.0 - 74.0 % 11/13 4:03 AM CDT [facility] [place] Not Available Not Available 12/11/2024 16:15:50 11/14/19 25 11/13/2024 CBC W Auto Diffe renti al panel - Blood lymphocytes/ leukocytes in blood by automated count 6.7 % low: 17%hig h: 47% low Lymph ocyte % 6.7 (L) 17.0 - 47.0 % 11/13 4:03 AM CDT [facility] [place] Not Available Not Available 12/11/2024 16:15:50 11/14/19 25 11/13/2024 CBC W Auto Diffe renti al panel - Blood monocytes/le ukocytes in blood by automated count 12.8 % low: 3%high : 11% high Monoc yte % 12.8 (H) 3.0 - 11.0 % 11/13 4:03 AM CDT [facility] [place] Not Available Not Available 12/11/2024 16:15:50 11/14/19 25 11/13/2024 CBC W Auto Diffe renti al panel - Blood eosinophils/ leukocytes in blood by automated count 0.2 % low: 0%high : 7% Eosin ophil % 0.2 0.0 - 7.0 % 11/13 4:03 AM CDT [facility] [employer] [facility] [place] Not Available Not Available 12/11/2024 16:15:50 11/14/19 25 11/13/2024 CBC W Auto Diffe renti al panel - Blood basophils/le ukocytes in blood by automated count 0.1 % low: 0%high : 1.6% Basop hil % 0.1 0.0 - 1.6 % 11/13 4:03 AM CDT [facility] [employer] [place] Not Available Not Available 12/11/2024 16:15:50 11/14/19 25 11/13/2024 CBC W Auto Diffe renti al panel - Blood immature granulocytes /leukocytes in blood by automated count 0.3 % low: 0%high : 1% Immat ure Granu locyt es % 0.3 0.0 - 1.0 % 11/13 4:03 AM T [facility] [employer] [place] Not Available Not Available 12/11/2024 16:15:50 11/14/19 25 11/13/2024 CBC W Auto Diffe renti al panel - Blood neutrophils [#/volume] in blood by automated count 9.24 text: 1.60 - 7.50 x10e9/ L high Neutr ophil Absol [place] 9.24 (H) 1.60 - 7.50 x10E9 /L 11/13 4:03 AM CDT [facility] [employer] [place] Not Available Not Available 12/11/2024 16:15:50 11/14/19 25 11/13/2024 CBC W Auto Diffe renti al panel - Blood lymphocytes [#/volume] in blood by automated count 0.77 text: 1.00 - 4.40 x10e9/ L low Lymph ocyte Absol [place] 0.77 (L) 1.00 - 4.40 x10E9 /L 11/13 4:03 AM CDT [facility] [employer] [place] Not Available Not Available 12/11/2024 16:15:50 11/14/19 25 11/13/2024 CBC W Auto Diffe renti al panel - Blood monocytes [#/volume] in blood by automated count 1.48 text: 0.15 - 1.00 x10e9/ L high Monoc yte Absol [place] 1.48 (H) 0.15 - 1.00 x10E9 /L 11/13 4:03 AM CDT [facility] [place] Not Available Not Available 12/11/2024 16:15:50 11/14/19 25 11/13/2024 CBC W Auto Diffe renti al panel - Blood eosinophils [#/volume] in blood 0.02 text: 0.00 - 0.60 x10e9/ L Eosin ophil Absol [place] 0.02 0.00 - 0.60 x10E9 /L 11/13 4:03 AM CDT [facility] [employer] [facility] [place] Not Available Not Available 12/11/2024 16:15:50 11/14/19 25 11/13/2024 CBC W Auto Diffe renti al panel - Blood basophils [#/volume] in blood by automated count 0.01 text: 0.00 - 0.13 x10e9/ L Basop hil Absol [place] 0.01 0.00 - 0.13 x10E9 /L 11/13 4:03 AM CDT [facility] [place] Not Available Not Available 12/11/2024 16:15:50 11/14/19 25 11/13/2024 CBC W Auto Diffe renti al panel - Blood interpretati on and review of laboratory results Abnorm al Not Available Not Available 16:15:50 11/14/1911/13/2024 Magne sium [Mass /volu me] in Serum or Plasm a magnesium [mass/volume ] in serum or plasma 1.7 mg/dL low: 1.6mg/ dLhigh : 2.6mg/ dL Magne sium 1.7 1.6 - 2.6 mg/dL 11/13 4:17 AM CDT [facility] [place] Not Available Not Available 12/11/2024 16:15:50 11/14/19 25 11/13/2024 Magne sium [Mass /volu me] in Serum or Plasm a interpretati on and review of laboratory results Normal Not Available Not Available 11/26 16:15:50 11/14/19 25 11/13/2024 Basic metab olic 1999 panel - Serum or Plasm a urea nitrogen [mass/volume ] in serum or plasma 12 mg/dL low: 7mg/dL high: 26mg/d L BUN 12 7 - 26 mg/dL 11/13 4:19 AM CDT [facility] [place] Not Available Not Available 12/11/2024 16:15:50 11/14/19 25 11/13/2024 Basic metab olic 1999 panel - Serum or Plasm a creatinine [mass/volume ] in serum or plasma 1.03 mg/dL low: 0.71mg /dLhig h: 1.16mg /dL Creat inine 1.03 0.71 - 1.16 mg/dL 11/13 4:19 AM CDT [facility] [place] Not Available Not Available 12/11/2024 16:15:50 11/14/19 25 11/13/2024 Basic metab olic 1999 panel - Serum or Plasm a sodium [moles/volum e] in serum or plasma 137 mmol/ L low: 136mmo l/Lhig h: 145mmo l/L Sodiu m 137 136 - 145 mmol/ L 11/13 4:19 AM CDT [facility] [place] Not Available Not Available 12/11/2024 16:15:50 11/14/19 25 11/13/2024 Basic metab olic 1999 panel - Serum or Plasm a potassium [moles/volum e] in serum or plasma 4 mmol/ L low: 3.5mmo l/Lhig h: 4.5mmo l/L Potas sium 4.0 3.5 - 4.5 mmol/ L 11/13 4:19 AM CDT [facility] [place] Not Available Not Available 12/11/2024 16:15:50 11/14/19 25 11/13/2024 Basic metab olic 1999 panel - Serum or Plasm a chloride [moles/volum e] in serum or plasma 107 mmol/ L low: 98mmol /Lhigh : 107mmo l/L Chlor sylvia 107 98 - 107 mmol/ L 11/13 4:19 AM CDT [facility] [place] Not Available Not Available 12/11/2024 16:15:50 11/14/1911/13/2024 Basic metab olic 1999 panel - Serum or Plasm a carbon dioxide, total [moles/volum e] in serum or plasma 23 mmol/ L low: 22mmol /Lhigh : 29mmol /L CO2 23 22 - 29 mmol/ L 11/13 4:19 AM CDT [facility] [place] Not Available Not Available 12/11/2024 16:15:50 11/14/19 25 11/13/2024 Basic metab olic 1999 panel - Serum or Plasm a glucose [mass/volume ] in serum or plasma 81 mg/dL low: 70mg/d Lhigh: 99mg/d L Gluco se 81 70 - 99 mg/dL 11/13 4:19 AM CDT [facility] [place] Not Available Not Available 12/11/2024 16:15:50 11/14/1911/13/2024 Basic metab olic 1999 panel - Serum or Plasm a calcium [moles/volum e] in serum or plasma 8 mg/dL low: 8.4mg/ dLhigh : 10.2mg /dL low Calci um 8.0 (L) 8.4 - 10.2 mg/dL 11/13 4:19 AM CDT [facility] Not Available Not Available 12/11/2024 16:15:50 11/14/1911/13/2024 Basic metab olic 1999 panel - Serum or Plasm a anion gap 7 low: 6high: 16 Anion Gap 7 6 - 16 11/13 4:19 AM CDT [facility] Not Available Not Available 12/11/2024 16:15:50 11/14/19 25 11/13/2024 Basic metab olic 2000 panel - Serum or Plasm a urea nitrogen/cre atinine [mass ratio] in serum or plasma 12 low: 7high: 23 BUN/C reati nine Ratio 12 7 - 23 11/13 4:19 AM CDT [facility] Not Available Not Available 12/11/2024 16:15:50 11/14/19 25 11/13/2024 Basic metab olic 2000 panel - Serum or Plasm a osmolality calculated 283 text: 275 - 295 mOsm/k g Osmol coral [place] lated 283 275 - 295 mOsm/ kg 11/13 4:19 AM CDT [employer] [place] Not Available Not Available 12/11/2024 16:15:50 11/14/19 25 11/13/2024 Basic metab olic 2000 panel - Serum or Plasm a glomerular filtration rate [volume rate/area] in serum, plasma or blood by creatinine-b ased formula (CKD-epi 2020)/1.73 sq M 79 text: >=90 mL/min /1.73 m2 low eGFR by CKD-E PI 79 (L) >=90 mL/mi n/1.7 3 m2 11/13 4:19 AM T [employer] [place] Not Available Not Available 12/11/2024 16:15:50 11/14/19 25 11/13/2024 Basic metab olic 2000 panel - Serum or Plasm a interpretati on and review of laboratory results Abnorm al Not Available Not Available 16:15:50 11/14/19 25 11/13/2024 Hemog lobin A1c/H emogl obin. total in Blood hemoglobin A1C/hemoglob in.total in blood 6.9 % high: 5.6% high Hemog lobin A1c 6.9 (H) <=5.6 % 11/13 10:01 AM [employer] [facility] Not Available Not Available 12/11/2024 16:15:38 11/14/19 25 11/13/2024 Hemog lobin A1c/H emogl obin. total in Blood glucose mean value [mass/volume ] in blood estimated from glycated hemoglobin 151 mg/dL Estim [facility] [place] [facility] Gluco se 151 mg/dL 11/13 10:01 AM [employer] [facility] Not Available Not Available 12/11/2024 16:15:38 11/14/19 25 11/13/2024 Hemog lobin A1c/H emogl obin. total in Blood interpretati on and review of laboratory results Abnorm al Not Available Not Available 16:15:38 11/15/19 25 11/15/2024 Gluco se [Mass /volu me] in Arter ial blood glucose [mass/volume ] in capillary blood by glucometer 195 mg/dL low: 70mg/d Lhigh: 99mg/d L high Gluco se WB/PO C 195 (H) 70 - 99 mg/dL 11/15 12:40 PM CDT [facility] [place] Not Available Not Available 12/11/2024 16:15:52 11/15/19 25 11/15/2024 Gluco se [Mass /volu me] in Arter ial blood specimen source identified Cap Finger stick Speci men Type Cap Finge rstic k 11/15 12:40 PM CDT [facility] [place] Not Available Not Available 12/11/2024 16:15:52 11/15/19 25 11/15/2024 Gluco se [Mass /volu me] in Arter ial blood interpretati on and review of laboratory results Abnorm al Not Available Not Available 16:15:52 11/15/19 25 11/15/2024 Gluco se [Mass /volu me] in Arter ial blood glucose [mass/volume ] in capillary blood by glucometer 182 mg/dL low: 70mg/d Lhigh: 99mg/d L high Gluco se WB/PO C 182 (H) 70 - 99 mg/dL 11/15 12:40 PM CDT [facility] [place] Not Available Not Available 12/11/2024 16:15:52 11/15/19 25 11/15/2024 Gluco se [Mass /volu me] in Arter ial blood specimen source identified Cap Finger stick Speci men Type Cap Finge rstic k 11/15 12:40 PM CDT [facility] [place] Not Available Not Available 12/11/2024 16:15:52 11/15/19 25 11/15/2024 Gluco se [Mass /volu me] in Arter ial blood interpretati on and review of laboratory results Abnorm al Not Available Not Available 16:15:52 0311/15/2024 Gluco se [Mass /volu me] in Arter ial blood glucose [mass/volume ] in capillary blood by glucometer 105 mg/dL low: 70mg/d Lhigh: 99mg/d L high Gluco se WB/PO C 105 (H) 70 - 99 mg/dL 11/15 12:40 PM CDT [facility] [employer] [facility] [place] Not Available Not Available 12/11/2024 16:15:52 11/15/1911/15/2024 Gluco se [Mass /volu me] in Arter ial blood specimen source identified Cap Finger stick Speci men Type Cap Finge rstic k 11/15 12:40 PM CDT [facility] [employer] [facility] [place] Not Available Not Available 12/11/2024 16:15:52 11/15/1911/15/2024 Gluco se [Mass /volu me] in Arter ial blood interpretati on and review of laboratory results Abnorm al Not Available Not Available 16:15:52 11/15/1911/14/2024 CBC W Auto Diffe renti al panel - Blood leukocytes [#/volume] in blood by automated count 15.2 text: 4.0 - 10.7 x10e9/ L high WBC 15.2 (H) 4.0 - 10.7 x10E9 /L 11/14 4:05 AM CDT [facility] [employer] [facility] [place] Not Available Not Available 12/11/2024 16:15:51 11/15/1911/14/2024 CBC W Auto Diffe renti al panel - Blood erythrocytes [#/volume] in blood by automated count 4.21 text: 4.30 - 5.80 x10e12 /L low RBC Count 4.21 (L) 4.30 - 5.80 x10E1 2/L 11/14 4:05 AM CDT [facility] [employer] [facility] [place] Not Available Not Available 12/11/2024 16:15:51 11/15/19 25 11/14/2024 CBC W Auto Diffe renti al panel - Blood hemoglobin [mass/volume ] in blood 10.7 g/dL low: 13.3g/ dLhigh : 17.5g/ dL low Hemog lobin 10.7 (L) 13.3 - 17.5 g/dL 11/14 4:05 AM [facility] [place] Not Available Not Available 12/11/2024 16:15:51 11/15/19 25 11/14/2024 CBC W Auto Diffe renti al panel - Blood hematocrit [volume fraction] of blood by automated count 32.2 % low: 38.7%h igh: 51.1% low Hemat ocrit 32.2 (L) 38.7 - 51.1 % 11/14 4:05 AM [facility] [place] Not Available Not Available 12/11/2024 16:15:51 11/15/1911/14/2024 CBC W Auto Diffe renti al panel - Blood MCV [entitic mean volume] in red blood cells by automated count 76.5 fL low: 80fLhi gh: 98fL low MCV 76.5 (L) 80.0 - 98.0 fL 11/14 4:05 AM [facility] [place] Not Available Not Available 12/11/2024 16:15:51 11/15/19 25 11/14/2024 CBC W Auto Diffe renti al panel - Blood MCH [entitic mass] by automated count 25.4 pg low: 26.7pg high: 33.6pg low MCH 25.4 (L) 26.7 - 33.6 pg 11/14 4:05 AM [facility] [place] Not Available Not Available 12/11/2024 16:15:51 11/15/19 25 11/14/2024 CBC W Auto Diffe renti al panel - Blood MCHC [entitic mass/volume] in red blood cells by automated count 33.2 g/dL low: 31.7g/ dLhigh : 36.3g/ dL MCHC 33.2 31.7 - 36.3 g/dL 11/14 4:05 AM [facility] [place] Not Available Not Available 12/11/2024 16:15:51 11/15/19 25 11/14/2024 CBC W Auto Diffe renti al panel - Blood erythrocyte [distwidth] in red blood cells by automated count 19.3 % low: 11.3%h igh: 14.8% high RDW-C V 19.3 (H) 11.3 - 14.8 % 11/14 4:05 AM [facility] [place] Not Available Not Available 12/11/2024 16:15:51 11/15/19 25 11/14/2024 CBC W Auto Diffe renti al panel - Blood platelets [#/volume] in blood by automated count 147 text: 150 - 420 x10e9/ L low Plate let Count 147 (L) 150 - 420 x10E9 /L 11/14 4:05 AM [facility] [place] Not Available Not Available 12/11/2024 16:15:51 11/15/19 25 11/14/2024 CBC W Auto Diffe renti al panel - Blood platelet [entitic mean volume] in blood by automated count MPV 11/14 4:05 AM [facility] [place] Not Available Not Available 12/11/2024 16:15:51 11/15/19 25 11/14/2024 CBC W Auto Diffe renti al panel - Blood interpretati on and review of laboratory results Abnorm al Not Available Not Available 16:15:51 11/15/19 25 11/14/2024 Phosp hate [Mass /volu me] in Serum or Plasm a phosphate [mass/volume ] in serum or plasma 4.3 mg/dL low: 2.8mg/ dLhigh : 5.1mg/ dL Phosp horus 4.3 2.8 - 5.1 mg/dL 11/14 12:21 AM [facility] [employer] [facility] [place] Not Available Not Available 12/11/2024 16:15:51 11/15/19 25 11/14/2024 Phosp hate [Mass /volu me] in Serum or Plasm a interpretati on and review of laboratory results Normal Not Available Not Available 11/26 16:15:51 11/15/19 25 11/14/2024 Magne sium [Mass /volu me] in Serum or Plasm a magnesium [mass/volume ] in serum or plasma 1.7 mg/dL low: 1.6mg/ dLhigh : 2.6mg/ dL Magne sium 1.7 1.6 - 2.6 mg/dL 11/14 12:21 AM CDT [facility] [employer] [facility] Not Available Not Available 12/11/2024 16:15:51 11/15/19 25 11/14/2024 Magne sium [Mass /volu me] in Serum or Plasm a interpretati on and review of laboratory results Normal Not Available Not Available 11/26 16:15:51 11/15/19 25 11/14/2024 CBC W Auto Diffe renti al panel - Blood leukocytes [#/volume] in blood by automated count 13.9 text: 4.0 - 10.7 x10e9/ L high WBC 13.9 (H) 4.0 - 10.7 x10E9 /L 11/14 12:38 AM CDT [facility] [employer] [facility] [place] Not Available Not Available 12/11/2024 16:15:51 11/15/19 25 11/14/2024 CBC W Auto Diffe renti al panel - Blood erythrocytes [#/volume] in blood by automated count 4.29 text: 4.30 - 5.80 x10e12 /L low RBC Count 4.29 (L) 4.30 - 5.80 x10E1 2/L 11/14 12:38 AM CDT [facility] [employer] [facility] [place] Not Available Not Available 12/11/2024 16:15:51 11/15/19 25 11/14/2024 CBC W Auto Diffe renti al panel - Blood hemoglobin [mass/volume ] in blood 10.9 g/dL low: 13.3g/ dLhigh : 17.5g/ dL low Hemog lobin 10.9 (L) 13.3 - 17.5 g/dL 11/14 12:38 AM CDT [facility] [employer] [facility] [place] Not Available Not Available 12/11/2024 16:15:51 11/15/19 25 11/14/2024 CBC W Auto Diffe renti al panel - Blood hematocrit [volume fraction] of blood by automated count 32.8 % low: 38.7%h igh: 51.1% low Hemat ocrit 32.8 (L) 38.7 - 51.1 % 11/14 12:38 AM [facility] Not Available Not Available 12/11/2024 16:15:51 11/15/19 25 11/14/2024 CBC W Auto Diffe renti al panel - Blood MCV [entitic mean volume] in red blood cells by automated count 76.5 fL low: 80fLhi gh: 98fL low MCV 76.5 (L) 80.0 - 98.0 fL 11/14 12:38 AM [facility] [place] Not Available Not Available 12/11/2024 16:15:51 11/15/19 25 11/14/2024 CBC W Auto Diffe renti al panel - Blood MCH [entitic mass] by automated count 25.4 pg low: 26.7pg high: 33.6pg low MCH 25.4 (L) 26.7 - 33.6 pg 11/14 12:38 AM T [facility] [place] Not Available Not Available 12/11/2024 16:15:51 11/15/19 25 11/14/2024 CBC W Auto Diffe renti al panel - Blood MCHC [entitic mass/volume] in red blood cells by automated count 33.2 g/dL low: 31.7g/ dLhigh : 36.3g/ dL MCHC 33.2 31.7 - 36.3 g/dL 11/14 12:38 AM [facility] Not Available Not Available 12/11/2024 16:15:51 11/15/19 25 11/14/2024 CBC W Auto Diffe renti al panel - Blood erythrocyte [distwidth] in red blood cells by automated count 19.2 % low: 11.3%h igh: 14.8% high RDW-C V 19.2 (H) 11.3 - 14.8 % 11/14 12:38 AM [facility] [place] Not Available Not Available 12/11/2024 16:15:51 11/15/19 25 11/14/2024 CBC W Auto Diffe renti al panel - Blood platelets [#/volume] in blood by automated count 149 text: 150 - 420 x10e9/ L low Plate let Count 149 (L) 150 - 420 x10E9 /L 11/14 12:38 AM T [facility] [place] Not Available Not Available 12/11/2024 16:15:51 11/15/19 25 11/14/2024 CBC W Auto Diffe renti al panel - Blood platelet [entitic mean volume] in blood by automated count MPV 11/14 12:38 AM [facility] [place] Not Available Not Available 12/11/2024 16:15:51 11/15/19 25 11/14/2024 CBC W Auto Diffe renti al panel - Blood interpretati on and review of laboratory results Abnorm al Not Available Not Available 16:15:51 11/15/19 25 11/14/2024 Basic metab olic 2000 panel - Serum or Plasm a urea nitrogen [mass/volume ] in serum or plasma 22 mg/dL low: 7mg/dL high: 26mg/d L BUN 22 7 - 26 mg/dL 11/14 12:21 AM [facility] [place] Not Available Not Available 12/11/2024 16:15:51 11/15/19 25 11/14/2024 Basic metab olic 2000 panel - Serum or Plasm a creatinine [mass/volume ] in serum or plasma 1.09 mg/dL low: 0.71mg /dLhig h: 1.16mg /dL Creat inine 1.09 0.71 - 1.16 mg/dL 11/14 12:21 AM [facility] [place] Not Available Not Available 12/11/2024 16:15:51 11/15/19 25 11/14/2024 Basic metab olic 1999 panel - Serum or Plasm a sodium [moles/volum e] in serum or plasma 134 mmol/ L low: 136mmo l/Lhig h: 145mmo l/L low Sodiu m 134 (L) 136 - 145 mmol/ L 11/14 12:[address] [facility] [place] Not Available Not Available 12/11/2024 16:15:51 11/15/19 25 11/14/2024 Basic metab olic 1999 panel - Serum or Plasm a potassium [moles/volum e] in serum or plasma 4.2 mmol/ L low: 3.5mmo l/Lhig h: 4.5mmo l/L Potas sium 4.2 3.5 - 4.5 mmol/ L 11/14 12:21 AM CDT [facility] [place] Not Available Not Available 12/11/2024 16:15:51 11/15/19 25 11/14/2024 Basic metab olic 1999 panel - Serum or Plasm a chloride [moles/volum e] in serum or plasma 106 mmol/ L low: 98mmol /Lhigh : 107mmo l/L Chlor sylvia 106 98 - 107 mmol/ L 11/14 12:21 AM CDT [facility] [place] Not Available Not Available 12/11/2024 16:15:51 11/15/19 25 11/14/2024 Basic metab olic 1999 panel - Serum or Plasm a carbon dioxide, total [moles/volum e] in serum or plasma 22 mmol/ L low: 22mmol /Lhigh : 29mmol /L CO2 22 22 - 29 mmol/ L 11/14 12:21 AM CDT [facility] [place] Not Available Not Available 12/11/2024 16:15:51 11/15/19 25 11/14/2024 Basic metab olic 1999 panel - Serum or Plasm a glucose [mass/volume ] in serum or plasma 145 mg/dL low: 70mg/d Lhigh: 99mg/d L high Gluco se 145 (H) 70 - 99 mg/dL 11/14 12:21 AM CDT [facility] [place] Not Available Not Available 12/11/2024 16:15:51 11/15/19 25 11/14/2024 Basic metab olic 1999 panel - Serum or Plasm a calcium [moles/volum e] in serum or plasma 8 mg/dL low: 8.4mg/ dLhigh : 10.2mg /dL low Calci um 8.0 (L) 8.4 - 10.2 mg/dL 11/14 12:21 AM CDT [facility] [place] Not Available Not Available 12/11/2024 16:15:51 11/15/19 25 11/14/2024 Basic metab olic 2000 panel - Serum or Plasm a anion gap 6 low: 6high: 16 Anion Gap 6 6 - 16 11/14 12:21 AM CDT [facility] [place] Not Available Not Available 12/11/2024 16:15:51 11/15/19 25 11/14/2024 Basic metab olic 2000 panel - Serum or Plasm a urea nitrogen/cre atinine [mass ratio] in serum or plasma 20 low: 7high: 23 BUN/C reati nine Ratio 20 7 - 23 11/14 12:21 AM CDT [facility] [employer] [facility] [place] Not Available Not Available 12/11/2024 16:15:51 11/15/19 25 11/14/2024 Basic metab olic 2000 panel - Serum or Plasm a osmolality calculated 284 text: 275 - 295 mOsm/k g Osmol coral Contiu lated 284 275 - 295 mOsm/ kg 11/14 12:21 AM CDT [facility] [employer] [facility] [place] Not Available Not Available 12/11/2024 16:15:51 11/15/19 25 11/14/2024 Basic metab olic 2000 panel - Serum or Plasm a glomerular filtration rate [volume rate/area] in serum, plasma or blood by creatinine-b ased formula (CKD-epi 2020)/1.73 sq M 73 text: >=90 mL/min /1.73 m2 low eGFR by CKD-E PI 73 (L) >=90 mL/mi n/1.7 3 m2 11/14 12:21 AM CDT [facility] [employer] [facility] [place] Not Available Not Available 12/11/2024 16:15:51 11/15/19 25 11/14/2024 Basic metab olic 2000 panel - Serum or Plasm a interpretati on and review of laboratory results Abnorm al Not Available Not Available 16:15:51 11/16/19 25 11/15/2024 Gluco se [Mass /volu me] in Arter ial blood glucose [mass/volume ] in capillary blood by glucometer 213 mg/dL low: 70mg/d Lhigh: 99mg/d L high Gluco se WB/PO C 213 (H) 70 - 99 mg/dL 11/15 9:44 PM CDT [facility] [place] Not Available Not Available 12/11/2024 16:15:53 11/16/19 25 11/15/2024 Gluco se [Mass /volu me] in Arter ial blood specimen source identified Cap Finger stick Speci men Type Cap Finge rstic k 11/15 9:44 PM CDT [facility] [place] Not Available Not Available 12/11/2024 16:15:53 11/16/19 25 11/15/2024 Gluco se [Mass /volu me] in Arter ial blood interpretati on and review of laboratory results Abnorm al Not Available Not Available 16:15:53 11/16/19 25 11/15/2024 Gluco se [Mass /volu me] in Arter ial blood glucose [mass/volume ] in capillary blood by glucometer 248 mg/dL low: 70mg/d Lhigh: 99mg/d L high Gluco se WB/PO C 248 (H) 70 - 99 mg/dL 11/15 9:55 PM CDT [facility] [place] Not Available Not Available 12/11/2024 16:15:53 11/16/19 25 11/15/2024 Gluco se [Mass /volu me] in Arter ial blood specimen source identified Cap Finger stick Speci men Type Cap Finge rstic k 11/15 9:55 PM CDT [facility] [place] Not Available Not Available 12/11/2024 16:15:53 11/16/19 25 11/15/2024 Gluco se [Mass /volu me] in Arter ial blood interpretati on and review of laboratory results Abnorm al Not Available Not Available 16:15:53 11/16/19 25 11/16/2024 Gluco se [Mass /volu me] in Arter ial blood glucose [mass/volume ] in capillary blood by glucometer 142 mg/dL low: 70mg/d Lhigh: 99mg/d L high Gluco se WB/PO C 142 (H) 70 - 99 mg/dL 11/16 8:05 AM CDT [facility] [place] Not Available Not Available 12/11/2024 16:15:52 11/16/19 25 11/16/2024 Gluco se [Mass /volu me] in Arter ial blood specimen source identified Cap Finger stick Speci men Type Cap Finge rstic k 11/16 8:05 AM CDT [facility] [place] Not Available Not Available 12/11/2024 16:15:52 11/16/19 25 11/16/2024 Gluco se [Mass /volu me] in Arter ial blood interpretati on and review of laboratory results Abnorm al Not Available Not Available 16:15:52 11/16/19 25 11/16/2024 Gluco se [Mass /volu me] in Arter ial blood glucose [mass/volume ] in capillary blood by glucometer 144 mg/dL low: 70mg/d Lhigh: 99mg/d L high Gluco se WB/PO C 144 (H) 70 - 99 mg/dL 11/16 8:05 AM CDT [facility] [place] Not Available Not Available 12/11/2024 16:15:52 11/16/19 25 11/16/2024 Gluco se [Mass /volu me] in Arter ial blood specimen source identified Cap Finger stick Speci men Type Cap Finge rstic k 11/16 8:05 AM [facility] [place] Not Available Not Available 12/11/2024 16:15:52 11/16/19 25 11/16/2024 Gluco se [Mass /volu me] in Arter ial blood interpretati on and review of laboratory results Abnorm al Not Available Not Available 16:15:52 11/16/19 25 11/15/2024 CBC W Auto Diffe marisolti al panel - Blood leukocytes [#/volume] in blood by automated count 12.2 text: 4.0 - 10.7 x10e9/ L high WBC 12.2 (H) 4.0 - 10.7 x10E9 /L 11/15 12:27 AM CDT [facility] [place] Not Available Not Available 12/11/2024 16:15:52 11/16/19 25 11/15/2024 CBC W Auto Diffe rose al panel - Blood erythrocytes [#/volume] in blood by automated count 4.12 text: 4.30 - 5.80 x10e12 /L low RBC Count 4.12 (L) 4.30 - 5.80 x10E1 2/L 11/15 12:27 AM CDT [facility] Not Available Not Available 12/11/2024 16:15:52 11/16/19 25 11/15/2024 CBC W Auto Diffe rose al panel - Blood hemoglobin [mass/volume ] in blood 10.8 g/dL low: 13.3g/ dLhigh : 17.5g/ dL low Hemog lobin 10.8 (L) 13.3 - 17.5 g/dL 11/15 12:27 AM [facility] Not Available Not Available 12/11/2024 16:15:52 11/16/19 25 11/15/2024 CBC W Auto Diffe rose [place] panel - Blood hematocrit [volume fraction] of blood by automated count 31.7 % low: 38.7%h igh: 51.1% low Hemat ocrit 31.7 (L) 38.7 - 51.1 % 11/15 12:27 AM [facility] Not Available Not Available 12/11/2024 16:15:52 11/16/19 25 11/15/2024 CBC W Auto Diffe rose [place] panel - Blood MCV [entitic mean volume] in red blood cells by automated count 76.9 fL low: 80fLhi gh: 98fL low MCV 76.9 (L) 80.0 - 98.0 fL 11/15 12:27 AM CDT [facility] [place] Not Available Not Available 12/11/2024 16:15:52 11/16/19 25 11/15/2024 CBC W Auto Diffe rose al panel - Blood MCH [entitic mass] by automated count 26.2 pg low: 26.7pg high: 33.6pg low MCH 26.2 (L) 26.7 - 33.6 pg 11/15 12:27 AM CD[facility] Not Available Not Available 12/11/2024 16:15:52 11/16/19 25 11/15/2024 CBC W Auto Diffe renti al panel - Blood MCHC [entitic mass/volume] in red blood cells by automated count 34.1 g/dL low: 31.7g/ dLhigh : 36.3g/ dL MCHC 34.1 31.7 - 36.3 g/dL 11/15 12:27 AM [facility] Not Available Not Available 12/11/2024 16:15:52 11/16/19 25 11/15/2024 CBC W Auto Diffe renti al panel - Blood erythrocyte [distwidth] in red blood cells by automated count 19.7 % low: 11.3%h igh: 14.8% high RDW-C V 19.7 (H) 11.3 - 14.8 % 11/15 12:27 AM [facility] [place] Not Available Not Available 12/11/2024 16:15:52 11/16/19 25 11/15/2024 CBC W Auto Diffe renti al panel - Blood platelets [#/volume] in blood by automated count 158 text: 150 - 420 x10e9/ L Plate let Count 158 150 - 420 x10E9 /L 11/15 12:27 AM [facility] Not Available Not Available 12/11/2024 16:15:52 11/16/19 25 11/15/2024 CBC W Auto Diffe renti al panel - Blood platelet [entitic mean volume] in blood by automated count 9.8 fL low: 7.8fLh igh: 11.4fL MPV 9.8 7.8 - 11.4 fL 11/15 12:27 AM [facility] Not Available Not Available 12/11/2024 16:15:52 11/16/19 25 11/15/2024 CBC W Auto Diffe renti al panel - Blood neutrophils/ leukocytes in blood by automated count 81.5 % low: 41%hig h: 74% high Neutr ophil % 81.5 (H) 41.0 - 74.0 % 11/15 12:27 AM CDT [facility] [place] Not Available Not Available 12/11/2024 16:15:52 11/16/19 25 11/15/2024 CBC W Auto Diffe renti al panel - Blood lymphocytes/ leukocytes in blood by automated count 5.5 % low: 17%hig h: 47% low Lymph ocyte % 5.5 (L) 17.0 - 47.0 % 11/15 12:27 AM CDT [facility] [place] Not Available Not Available 12/11/2024 16:15:52 11/16/19 25 11/15/2024 CBC W Auto Diffe renti al panel - Blood monocytes/le ukocytes in blood by automated count 11.9 % low: 3%high : 11% high Monoc yte % 11.9 (H) 3.0 - 11.0 % 11/15 12:27 AM CDT [facility] [place] Not Available Not Available 12/11/2024 16:15:52 11/16/19 25 11/15/2024 CBC W Auto Diffe renti al panel - Blood eosinophils/ leukocytes in blood by automated count 0.3 % low: 0%high : 7% Eosin ophil % 0.3 0.0 - 7.0 % 11/15 12:27 AM CDT [facility] [place] Not Available Not Available 12/11/2024 16:15:52 11/16/19 25 11/15/2024 CBC W Auto Diffe renti al panel - Blood basophils/le ukocytes in blood by automated count 0.2 % low: 0%high : 1.6% Basop hil % 0.2 0.0 - 1.6 % 11/15 12:27 AM CDT [facility] [place] Not Available Not Available 12/11/2024 16:15:52 11/16/19 25 11/15/2024 CBC W Auto Diffe renti al panel - Blood immature granulocytes /leukocytes in blood by automated count 0.6 % low: 0%high : 1% Immat ure Granu locyt es % 0.6 0.0 - 1.0 % 11/15 12:27 AM CDT [facility] [place] Not Available Not Available 12/11/2024 16:15:52 11/16/19 25 11/15/2024 CBC W Auto Diffe renti al panel - Blood neutrophils [#/volume] in blood by automated count 9.96 text: 1.60 - 7.50 x10e9/ L high Neutr ophil Absol [place] 9.96 (H) 1.60 - 7.50 x10E9 /L 11/15 12:27 AM CDT [facility] Not Available Not Available 12/11/2024 16:15:52 11/16/19 25 11/15/2024 CBC W Auto Diffe renti al panel - Blood lymphocytes [#/volume] in blood by automated count 0.67 text: 1.00 - 4.40 x10e9/ L low Lymph ocyte Absol [place] 0.67 (L) 1.00 - 4.40 x10E9 /L 11/15 12:27 AM [facility] Not Available Not Available 12/11/2024 16:15:52 11/16/19 25 11/15/2024 CBC W Auto Diffe renti al panel - Blood monocytes [#/volume] in blood by automated count 1.45 text: 0.15 - 1.00 x10e9/ L high Monoc yte Absol [place] 1.45 (H) 0.15 - 1.00 x10E9 /L 11/15 12:27 AM [facility] [place] Not Available Not Available 12/11/2024 16:15:52 11/16/19 25 11/15/2024 CBC W Auto Diffe renti al panel - Blood eosinophils [#/volume] in blood 0.04 text: 0.00 - 0.60 x10e9/ L Eosin ophil Absol [place] 0.04 0.00 - 0.60 x10E9 /L 11/15 12:27 AM [facility] [place] Not Available Not Available 12/11/2024 16:15:52 11/16/19 25 11/15/2024 CBC W Auto Diffe renti al panel - Blood basophils [#/volume] in blood by automated count 0.02 text: 0.00 - 0.13 x10e9/ L Basop hil Absol [place] 0.02 0.00 - 0.13 x10E9 /L 11/15 12:27 AM [facility] [place] Not Available Not Available 12/11/2024 16:15:52 11/16/19 25 11/15/2024 CBC W Auto Diffe renti al panel - Blood interpretati on and review of laboratory results Abnorm al Not Available Not Available 16:15:52 11/16/19 25 11/15/2024 Phosp hate [Mass /volu me] in Serum or Plasm a phosphate [mass/volume ] in serum or plasma 2.5 mg/dL low: 2.8mg/ dLhigh : 5.1mg/ dL low Phosp horus 2.5 (L) 2.8 - 5.1 mg/dL 11/15 12:45 AM [facility] Not Available Not Available 12/11/2024 16:15:52 11/16/19 25 11/15/2024 Phosp hate [Mass /volu me] in Serum or Plasm a interpretati on and review of laboratory results Abnorm al Not Available Not Available 16:15:52 11/16/19 25 11/15/2024 Magne sium [Mass /volu me] in Serum or Plasm a magnesium [mass/volume ] in serum or plasma 2.4 mg/dL low: 1.6mg/ dLhigh : 2.6mg/ dL Magne sium 2.4 1.6 - 2.6 mg/dL 11/15 12:45 AM [facility] [employer] [facility] [place] Not Available Not Available 12/11/2024 16:15:52 11/16/19 25 11/15/2024 Magne sium [Mass /volu me] in Serum or Plasm a interpretati on and review of laboratory results Normal Not Available Not Available 11/26 16:15:52 11/16/19 25 11/15/2024 Basic metab olic 2000 panel - Serum or Plasm a urea nitrogen [mass/volume ] in serum or plasma 21 mg/dL low: 7mg/dL high: 26mg/d L BUN 21 7 - 26 mg/dL 11/15 12:45 AM CDT [facility] [place] Not Available Not Available 12/11/2024 16:15:52 11/16/1911/15/2024 Basic metab olic 1999 panel - Serum or Plasm a creatinine [mass/volume ] in serum or plasma 0.84 mg/dL low: 0.71mg /dLhig h: 1.16mg /dL Creat inine 0.84 0.71 - 1.16 mg/dL 11/15 12:45 AM CDT [facility] [place] Not Available Not Available 12/11/2024 16:15:52 11/16/1911/15/2024 Basic metab olic 1999 panel - Serum or Plasm a sodium [moles/volum e] in serum or plasma 132 mmol/ L low: 136mmo l/Lhig h: 145mmo l/L low Sodiu m 132 (L) 136 - 145 mmol/ L 11/15 12:[address] [facility] [place] Not Available Not Available 12/11/2024 16:15:52 11/16/1911/15/2024 Basic metab olic 1999 panel - Serum or Plasm a potassium [moles/volum e] in serum or plasma 4.6 mmol/ L low: 3.5mmo l/Lhig h: 4.5mmo l/L high Potas sium 4.6 (H) 3.5 - 4.5 mmol/ L 11/15 12:45 AM CDT [facility] Not Available Not Available 12/11/2024 16:15:52 11/16/19 25 11/15/2024 Basic metab olic 1999 panel - Serum or Plasm a chloride [moles/volum e] in serum or plasma 102 mmol/ L low: 98mmol /Lhigh : 107mmo l/L Chlor sylvia 102 98 - 107 mmol/ L 11/15 12:45 AM CDT [facility] [place] Not Available Not Available 12/11/2024 16:15:52 11/16/19 25 11/15/2024 Basic metab olic 2000 panel - Serum or Plasm a carbon dioxide, total [moles/volum e] in serum or plasma 24 mmol/ L low: 22mmol /Lhigh : 29mmol /L CO2 24 22 - 29 mmol/ L 11/15 12:45 AM CDT [facility] [place] Not Available Not Available 12/11/2024 16:15:52 11/16/19 25 11/15/2024 Basic metab olic 1999 panel - Serum or Plasm a glucose [mass/volume ] in serum or plasma 164 mg/dL low: 70mg/d Lhigh: 99mg/d L high Gluco se 164 (H) 70 - 99 mg/dL 11/15 12:45 AM CDT [facility] [place] Not Available Not Available 12/11/2024 16:15:52 11/16/19 25 11/15/2024 Basic metab olic 1999 panel - Serum or Plasm a calcium [moles/volum e] in serum or plasma 8.3 mg/dL low: 8.4mg/ dLhigh : 10.2mg /dL low Calci um 8.3 (L) 8.4 - 10.2 mg/dL 11/15 12:45 AM CDT [facility] [place] Not Available Not Available 12/11/2024 16:15:52 11/16/19 25 11/15/2024 Basic metab olic 2000 panel - Serum or Plasm a anion gap 6 low: 6high: 16 Anion Gap 6 6 - 16 11/15 12:45 AM CDT [facility] [place] Not Available Not Available 12/11/2024 16:15:52 11/16/19 25 11/15/2024 Basic metab olic 2000 panel - Serum or Plasm a urea nitrogen/cre atinine [mass ratio] in serum or plasma 25 low: 7high: 23 high BUN/C reati nine Ratio 25 (H) 7 - 23 11/15 12:45 AM CDT [facility] [place] Not Available Not Available 12/11/2024 16:15:52 11/16/19 25 11/15/2024 Basic metab olic 2000 panel - Serum or Plasm a osmolality calculated 281 text: 275 - 295 mOsm/k g Osmol ality Calcu lated 281 275 - 295 mOsm/ kg 11/15 12:45 AM CDT [facility] [place] Not Available Not Available 12/11/2024 16:15:52 11/16/19 25 11/15/2024 Basic metab olic 2000 panel - Serum or Plasm a glomerular filtration rate [volume rate/area] in serum, plasma or blood by creatinine-b ased formula (CKD-epi 2020)/1.73 sq M text: >=90 mL/min /1.73 m2 eGFR by CKD-E PI >90 >=90 mL/mi n/1.7 3 m2 11/15 12:45 AM CDT [facility] [employer] [facility] [place] Not Available Not Available 12/11/2024 16:15:52 11/16/19 25 11/15/2024 Basic metab olic 2000 panel - Serum or Plasm a interpretati on and review of laboratory results Abnorm al Not Available Not Available 16:15:52 11/17/19 25 11/16/2024 Gluco se [Mass /volu me] in Arter ial blood glucose [mass/volume ] in capillary blood by glucometer 148 mg/dL low: 70mg/d Lhigh: 99mg/d L high Gluco se WB/PO C 148 (H) 70 - 99 mg/dL 11/16 4:06 PM T [facility] [employer] [facility] Not Available Not Available 12/11/2024 16:15:53 11/17/19 25 11/16/2024 Gluco se [Mass /volu me] in Arter ial blood specimen source identified Cap Finger stick Speci men Type Cap Finge rstic k 11/16 4:06 PM T [facility] [employer] [facility] [place] Not Available Not Available 12/11/2024 16:15:53 11/17/19 25 11/16/2024 Gluco se [Mass /volu me] in Arter ial blood interpretati on and review of laboratory results Abnorm al Not Available Not Available 16:15:53 11/17/19 25 11/16/2024 Gluco se [Mass /volu me] in Arter ial blood glucose [mass/volume ] in capillary blood by glucometer 271 mg/dL low: 70mg/d Lhigh: 99mg/d L high Gluco se WB/PO C 271 (H) 70 - 99 mg/dL 11/16 11:40 AM CDT [facility] [employer] [place] Not Available Not Available 12/11/2024 16:15:53 11/17/19 25 11/16/2024 Gluco se [Mass /volu me] in Arter ial blood specimen source identified Cap Finger stick Speci men Type Cap Finge rstic k 11/16 11:40 AM CDT [facility] [employer] [facility] [place] Not Available Not Available 12/11/2024 16:15:53 11/17/19 25 11/16/2024 Gluco se [Mass /volu me] in Arter ial blood interpretati on and review of laboratory results Abnorm al Not Available Not Available 16:15:53 11/17/19 25 11/16/2024 Gluco se [Mass /volu me] in Arter ial blood glucose [mass/volume ] in capillary blood by glucometer 201 mg/dL low: 70mg/d Lhigh: 99mg/d L high Gluco se WB/PO C 201 (H) 70 - 99 mg/dL 11/16 9:27 AM CDT [facility] [employer] [place] Not Available Not Available 12/11/2024 16:15:53 11/17/19 25 11/16/2024 Gluco se [Mass /volu me] in Arter ial blood specimen source identified Cap Finger stick Speci men Type Cap Finge rstic k 11/16 9:27 AM T [facility] [employer] [facility] [place] Not Available Not Available 12/11/2024 16:15:53 11/17/19 25 11/16/2024 Gluco se [Mass /volu me] in Arter ial blood interpretati on and review of laboratory results Abnorm al Not Available Not Available 16:15:53 11/17/19 25 11/16/2024 Gluco se [Mass /volu me] in Arter ial blood glucose [mass/volume ] in capillary blood by glucometer 167 mg/dL low: 70mg/d Lhigh: 99mg/d L high Gluco se WB/PO C 167 (H) 70 - 99 mg/dL 11/16 8:41 AM CDT [facility] [place] Not Available Not Available 12/11/2024 16:15:53 11/17/19 25 11/16/2024 Gluco se [Mass /volu me] in Arter ial blood specimen source identified Cap Finger stick Speci men Type Cap Finge rstic k 11/16 8:41 AM CDT [facility] [place] Not Available Not Available 12/11/2024 16:15:53 11/17/19 25 11/16/2024 Gluco se [Mass /volu me] in Arter ial blood interpretati on and review of laboratory results Abnorm al Not Available Not Available 16:15:53 11/17/1911/16/2024 CBC W Auto Diffe renti al panel - Blood leukocytes [#/volume] in blood by automated count 8.9 text: 4.0 - 10.7 x10e9/ L WBC 8.9 4.0 - 10.7 x10E9 /L 11/16 3:37 AM CDT [facility] [place] Not Available Not Available 12/11/2024 16:15:53 11/17/1911/16/2024 CBC W Auto Diffe renti al panel - Blood erythrocytes [#/volume] in blood by automated count 3.85 text: 4.30 - 5.80 x10e12 /L low RBC Count 3.85 (L) 4.30 - 5.80 x10E1 2/L 11/16 3:37 AM CDT [facility] [place] Not Available Not Available 12/11/2024 16:15:53 11/17/19 25 11/16/2024 CBC W Auto Diffe renti al panel - Blood hemoglobin [mass/volume ] in blood 10 g/dL low: 13.3g/ dLhigh : 17.5g/ dL low Hemog lobin 10.0 (L) 13.3 - 17.5 g/dL 11/16 3:37 AM CDT [facility] [place] Not Available Not Available 12/11/2024 16:15:53 11/17/19 25 11/16/2024 CBC W Auto Diffe renti al panel - Blood hematocrit [volume fraction] of blood by automated count 29.8 % low: 38.7%h igh: 51.1% low Hemat ocrit 29.8 (L) 38.7 - 51.1 % 11/16 3:37 AM CDT [facility] [place] Not Available Not Available 12/11/2024 16:15:53 11/17/1911/16/2024 CBC W Auto Diffe renti al panel - Blood MCV [entitic mean volume] in red blood cells by automated count 77.4 fL low: 80fLhi gh: 98fL low MCV 77.4 (L) 80.0 - 98.0 fL 11/16 3:37 AM CDT [facility] Not Available Not Available 12/11/2024 16:15:53 11/17/19 25 11/16/2024 CBC W Auto Diffe renti al panel - Blood MCH [entitic mass] by automated count 26 pg low: 26.7pg high: 33.6pg low MCH 26.0 (L) 26.7 - 33.6 pg 11/16 3:[address] [facility] [place] Not Available Not Available 12/11/2024 16:15:53 11/17/1911/16/2024 CBC W Auto Diffe renti al panel - Blood MCHC [entitic mass/volume] in red blood cells by automated count 33.6 g/dL low: 31.7g/ dLhigh : 36.3g/ dL MCHC 33.6 31.7 - 36.3 g/dL 11/16 3:37 AM CDT [facility] [place] Not Available Not Available 12/11/2024 16:15:53 11/17/19 25 11/16/2024 CBC W Auto Diffe renti al panel - Blood erythrocyte [distwidth] in red blood cells by automated count 20.7 % low: 11.3%h igh: 14.8% high RDW-C V 20.7 (H) 11.3 - 14.8 % 11/16 3:37 AM T [facility] [place] Not Available Not Available 12/11/2024 16:15:53 11/17/19 25 11/16/2024 CBC W Auto Diffe renti al panel - Blood platelets [#/volume] in blood by automated count 185 text: 150 - 420 x10e9/ L Plate let Count 185 150 - 420 x10E9 /L 11/16 3:37 AM CDT [facility] [place] Not Available Not Available 12/11/2024 16:15:53 11/17/19 25 11/16/2024 CBC W Auto Diffe renti al panel - Blood platelet [entitic mean volume] in blood by automated count MPV 11/16 3:37 AM CDT [facility] [place] Not Available Not Available 12/11/2024 16:15:53 11/17/19 25 11/16/2024 CBC W Auto Diffe renti al panel - Blood neutrophils/ leukocytes in blood by automated count 77.9 % low: 41%hig h: 74% high Neutr ophil % 77.9 (H) 41.0 - 74.0 % 11/16 3:37 AM CDT [facility] [place] Not Available Not Available 12/11/2024 16:15:53 11/17/19 25 11/16/2024 CBC W Auto Diffe renti al panel - Blood lymphocytes/ leukocytes in blood by automated count 8.1 % low: 17%hig h: 47% low Lymph ocyte % 8.1 (L) 17.0 - 47.0 % 11/16 3:37 AM CDT [facility] [place] Not Available Not Available 12/11/2024 16:15:53 11/17/19 25 11/16/2024 CBC W Auto Diffe renti al panel - Blood monocytes/le ukocytes in blood by automated count 12.8 % low: 3%high : 11% high Monoc yte % 12.8 (H) 3.0 - 11.0 % 11/16 3:37 AM CDT [facility] [place] Not Available Not Available 12/11/2024 16:15:53 11/17/19 25 11/16/2024 CBC W Auto Diffe renti al panel - Blood eosinophils/ leukocytes in blood by automated count 0.7 % low: 0%high : 7% Eosin ophil % 0.7 0.0 - 7.0 % 11/16 3:37 AM CDT [facility] [place] Not Available Not Available 12/11/2024 16:15:53 11/17/19 25 11/16/2024 CBC W Auto Diffe renti al panel - Blood basophils/le ukocytes in blood by automated count 0.2 % low: 0%high : 1.6% Basop hil % 0.2 0.0 - 1.6 % 11/16 3:37 AM CDT [facility] [place] Not Available Not Available 12/11/2024 16:15:53 11/17/19 25 11/16/2024 CBC W Auto Diffe renti al panel - Blood immature granulocytes /leukocytes in blood by automated count 0.3 % low: 0%high : 1% Immat ure Granu locyt es % 0.3 0.0 - 1.0 % 11/16 3:37 AM CDT [facility] [place] Not Available Not Available 12/11/2024 16:15:53 11/17/19 25 11/16/2024 CBC W Auto Diffe renti al panel - Blood neutrophils [#/volume] in blood by automated count 6.96 text: 1.60 - 7.50 x10e9/ L Neutr ophil Absol [place] 6.96 1.60 - 7.50 x10E9 /L 11/16 3:37 AM CDT [facility] [place] Not Available Not Available 12/11/2024 16:15:53 11/17/19 25 11/16/2024 CBC W Auto Diffe renti al panel - Blood lymphocytes [#/volume] in blood by automated count 0.72 text: 1.00 - 4.40 x10e9/ L low Lymph ocyte Absol [place] 0.72 (L) 1.00 - 4.40 x10E9 /L 11/16 3:37 AM CDT [facility] [place] Not Available Not Available 12/11/2024 16:15:53 11/17/19 25 11/16/2024 CBC W Auto Diffe renti al panel - Blood monocytes [#/volume] in blood by automated count 1.14 text: 0.15 - 1.00 x10e9/ L high Monoc yte Absol [place] 1.14 (H) 0.15 - 1.00 x10E9 /L 11/16 3:37 AM CDT [facility] [place] Not Available Not Available 12/11/2024 16:15:53 11/17/19 25 11/16/2024 CBC W Auto Diffe renti al panel - Blood eosinophils [#/volume] in blood 0.06 text: 0.00 - 0.60 x10e9/ L Eosin ophil Absol [place] 0.06 0.00 - 0.60 x10E9 /L 11/16 3:37 AM CDT [facility] [employer] [facility] [place] Not Available Not Available 12/11/2024 16:15:53 11/17/19 25 11/16/2024 CBC W Auto Diffe renti al panel - Blood basophils [#/volume] in blood by automated count 0.02 text: 0.00 - 0.13 x10e9/ L Basop hil Absol [place] 0.02 0.00 - 0.13 x10E9 /L 11/16 3:37 AM CDT [facility] [employer] [facility] [place] Not Available Not Available 12/11/2024 16:15:53 11/17/19 25 11/16/2024 CBC W Auto Diffe renti al panel - Blood interpretati on and review of laboratory results Abnorm al Not Available Not Available 16:15:53 11/17/19 25 11/16/2024 Phosp hate [Mass /volu me] in Serum or Plasm a phosphate [mass/volume ] in serum or plasma 2.7 mg/dL low: 2.8mg/ dLhigh : 5.1mg/ dL low Phosp horus 2.7 (L) 2.8 - 5.1 mg/dL 11/16 3:43 AM CDT [facility] [place] Not Available Not Available 12/11/2024 16:15:53 11/17/19 25 11/16/2024 Phosp hate [Mass /volu me] in Serum or Plasm a interpretati on and review of laboratory results Abnorm al Not Available Not Available 16:15:53 11/17/19 25 11/16/2024 Magne sium [Mass /volu me] in Serum or Plasm a magnesium [mass/volume ] in serum or plasma 1.6 mg/dL low: 1.6mg/ dLhigh : 2.6mg/ dL Magne sium 1.6 1.6 - 2.6 mg/dL 11/16 3:43 AM T [facility] [employer] [facility] [place] Not Available Not Available 12/11/2024 16:15:53 11/17/19 25 11/16/2024 Magne sium [Mass /volu me] in Serum or Plasm a interpretati on and review of laboratory results Normal Not Available Not Available 11/26 16:15:53 11/18/19 25 11/18/2024 Gluco se [Mass /volu me] in Arter ial blood glucose [mass/volume ] in capillary blood by glucometer 192 mg/dL low: 70mg/d Lhigh: 99mg/d L high Gluco se WB/PO C 192 (H) 70 - 99 mg/dL 11/18 10:09 AM [facility] [employer] [place] Not Available Not Available 12/11/2024 16:15:54 11/18/19 25 11/18/2024 Gluco se [Mass /volu me] in Arter ial blood specimen source identified Cap Finger stick Speci men Type Cap Finge rstic k 11/18 10:09 AM [facility] [employer] [facility] [place] Not Available Not Available 12/11/2024 16:15:54 11/18/19 25 11/18/2024 Gluco se [Mass /volu me] in Arter ial blood interpretati on and review of laboratory results Abnorm al Not Available Not Available 16:15:54 11/18/19 25 11/17/2024 Gluco se [Mass /volu me] in Arter ial blood glucose [mass/volume ] in capillary blood by glucometer 307 mg/dL low: 70mg/d Lhigh: 99mg/d L high Gluco se WB/PO C 307 (H) 70 - 99 mg/dL 11/17 4:42 PM CDT [facility] [place] Not Available Not Available 12/11/2024 16:15:54 11/18/19 25 11/17/2024 Gluco se [Mass /volu me] in Arter ial blood specimen source identified Cap Finger stick Speci men Type Cap Finge rstic k 11/17 4:42 PM CDT [facility] [place] Not Available Not Available 12/11/2024 16:15:54 11/18/19 25 11/17/2024 Gluco se [Mass /volu me] in Arter ial blood interpretati on and review of laboratory results Abnorm al Not Available Not Available 16:15:54 11/18/19 25 11/17/2024 Gluco se [Mass /volu me] in Arter ial blood glucose [mass/volume ] in capillary blood by glucometer 243 mg/dL low: 70mg/d Lhigh: 99mg/d L high Gluco se WB/PO C 243 (H) 70 - 99 mg/dL 11/17 12:19 PM CDT [facility] [place] Not Available Not Available 12/11/2024 16:15:54 11/18/19 25 11/17/2024 Gluco se [Mass /volu me] in Arter ial blood specimen source identified Cap Finger stick Speci men Type Cap Finge rstic k 11/17 12:19 PM CDT [facility] [place] Not Available Not Available 12/11/2024 16:15:54 11/18/19 25 11/17/2024 Gluco se [Mass /volu me] in Arter ial blood interpretati on and review of laboratory results Abnorm al Not Available Not Available 16:15:54 11/18/19 25 11/17/2024 Basic metab olic 2000 panel - Serum or Plasm a urea nitrogen [mass/volume ] in serum or plasma 16 mg/dL low: 7mg/dL high: 26mg/d L BUN 16 7 - 26 mg/dL 11/17 11:25 AM CDT [facility] [place] Not Available Not Available 12/11/2024 16:15:38 11/18/19 25 11/17/2024 Basic metab olic 1999 panel - Serum or Plasm a creatinine [mass/volume ] in serum or plasma 0.77 mg/dL low: 0.71mg /dLhig h: 1.16mg /dL Creat inine 0.77 0.71 - 1.16 mg/dL 11/17 11:25 AM CDT [facility] [place] Not Available Not Available 12/11/2024 16:15:38 11/18/19 25 11/17/2024 Basic metab olic 1999 panel - Serum or Plasm a sodium [moles/volum e] in serum or plasma 134 mmol/ L low: 136mmo l/Lhig h: 145mmo l/L low Sodiu m 134 (L) 136 - 145 mmol/ L 11/17 11:25 AM CDT [facility] [place] Not Available Not Available 12/11/2024 16:15:38 11/18/1911/17/2024 Basic metab olic 1999 panel - Serum or Plasm a potassium [moles/volum e] in serum or plasma 4.3 mmol/ L low: 3.5mmo l/Lhig h: 4.5mmo l/L Potas sium 4.3 3.5 - 4.5 mmol/ L 11/17 11:25 AM CDT [facility] [place] Not Available Not Available 12/11/2024 16:15:38 11/18/1911/17/2024 Basic metab olic 1999 panel - Serum or Plasm a chloride [moles/volum e] in serum or plasma 100 mmol/ L low: 98mmol /Lhigh : 107mmo l/L Chlor sylvia 100 98 - 107 mmol/ L 11/17 11:25 AM CDT [facility] [place] Not Available Not Available 12/11/2024 16:15:38 11/18/19 25 11/17/2024 Basic metab olic 2000 panel - Serum or Plasm a carbon dioxide, total [moles/volum e] in serum or plasma 27 mmol/ L low: 22mmol /Lhigh : 29mmol /L CO2 27 22 - 29 mmol/ L 11/17 11:25 AM CDT [facility] [place] Not Available Not Available 12/11/2024 16:15:38 11/18/19 25 11/17/2024 Basic metab olic 1999 panel - Serum or Plasm a glucose [mass/volume ] in serum or plasma 205 mg/dL low: 70mg/d Lhigh: 99mg/d L high Gluco se 205 (H) 70 - 99 mg/dL 11/17 11:25 AM CDT [facility] [place] Not Available Not Available 12/11/2024 16:15:38 11/18/19 25 11/17/2024 Basic metab olic 1999 panel - Serum or Plasm a calcium [moles/volum e] in serum or plasma 8.9 mg/dL low: 8.4mg/ dLhigh : 10.2mg /dL Calci um 8.9 8.4 - 10.2 mg/dL 11/17 11:25 AM CDT [facility] [place] Not Available Not Available 12/11/2024 16:15:38 11/18/19 25 11/17/2024 Basic metab olic 1999 panel - Serum or Plasm a anion gap 7 low: 6high: 16 Anion Gap 7 6 - 16 11/17 11:25 AM CDT [facility] [place] Not Available Not Available 12/11/2024 16:15:38 11/18/19 25 11/17/2024 Basic metab olic 1999 panel - Serum or Plasm a urea nitrogen/cre atinine [mass ratio] in serum or plasma 21 low: 7high: 23 BUN/C reati nine Ratio 21 7 - 23 11/17 11:25 AM CDT [facility] [place] Not Available Not Available 12/11/2024 16:15:38 11/18/19 25 11/17/2024 Basic metab olic 1999 panel - Serum or Plasm a osmolality calculated 285 text: 275 - 295 mOsm/k g Osmol ality Calcu lated 285 275 - 295 mOsm/ kg 11/17 11:25 AM CDT [facility] [place] Not Available Not Available 12/11/2024 16:15:38 11/18/19 11/17/2024 Basic metab olic 2000 panel - Serum or Plasm a glomerular filtration rate [volume rate/area] in serum, plasma or blood by creatinine-b ased formula (CKD-epi 2020)/1.73 sq M text: >=90 mL/min /1.73 m2 eGFR by CKD-E PI >90 >=90 mL/mi n/1.7 3 m2 11/17 11:25 AM CDT [facility] [place] Not Available Not Available 12/11/2024 16:15:38 11/18/19 25 11/17/2024 Basic metab olic 2000 panel - Serum or Plasm a interpretati on and review of laboratory results Abnorm al Not Available Not Available 16:15:38 11/18/19 25 11/17/2024 Gluco se [Mass /volu me] in Arter ial blood glucose [mass/volume ] in capillary blood by glucometer 210 mg/dL low: 70mg/d Lhigh: 99mg/d L high Gluco se WB/PO C 210 (H) 70 - 99 mg/dL 11/17 8:29 AM CDT [facility] [employer] [facility] [place] Not Available Not Available 12/11/2024 16:15:54 11/18/19 25 11/17/2024 Gluco se [Mass /volu me] in Arter ial blood specimen source identified Cap Finger stick Speci men Type Cap Finge rstic k 11/17 8:29 AM CDT [facility] [employer] [facility] [place] Not Available Not Available 12/11/2024 16:15:54 11/18/19 25 11/17/2024 Gluco se [Mass /volu me] in Arter ial blood interpretati on and review of laboratory results Abnorm al Not Available Not Available 16:15:54 11/18/19 25 11/17/2024 CBC W Auto Diffe renti al panel - Blood leukocytes [#/volume] in blood by automated count 7.3 text: 4.0 - 10.7 x10e9/ L WBC 7.3 4.0 - 10.7 x10E9 /L 11/17 3:15 AM CDT [facility] [employer] [facility] [place] Not Available Not Available 12/11/2024 16:15:54 11/18/19 25 11/17/2024 CBC W Auto Diffe rose al panel - Blood erythrocytes [#/volume] in blood by automated count 3.75 text: 4.30 - 5.80 x10e12 /L low RBC Count 3.75 (L) 4.30 - 5.80 x10E1 2/L 11/17 3:15 AM CDT [facility] Not Available Not Available 12/11/2024 16:15:54 11/18/19 25 11/17/2024 CBC W Auto Diffe rose al panel - Blood hemoglobin [mass/volume ] in blood 9.6 g/dL low: 13.3g/ dLhigh : 17.5g/ dL low Hemog lobin 9.6 (L) 13.3 - 17.5 g/dL 11/17 3:15 AM CDT [facility] [employer] [facility] Not Available Not Available 12/11/2024 16:15:54 11/18/1911/17/2024 CBC W Auto Diffe rose al panel - Blood hematocrit [volume fraction] of blood by automated count 29.4 % low: 38.7%h igh: 51.1% low Hemat ocrit 29.4 (L) 38.7 - 51.1 % 11/17 3:15 AM CDT [facility] [employer] [facility] Not Available Not Available 12/11/2024 16:15:54 11/18/19 25 11/17/2024 CBC W Auto Diffe rose al panel - Blood MCV [entitic mean volume] in red blood cells by automated count 78.4 fL low: 80fLhi gh: 98fL low MCV 78.4 (L) 80.0 - 98.0 fL 11/17 3:15 AM CDT [facility] [employer] [facility] Not Available Not Available 12/11/2024 16:15:54 11/18/19 25 11/17/2024 CBC W Auto Diffe marisolti al panel - Blood MCH [entitic mass] by automated count 25.6 pg low: 26.7pg high: 33.6pg low MCH 25.6 (L) 26.7 - 33.6 pg 11/17 3:15 AM CDT [facility] Not Available Not Available 12/11/2024 16:15:54 11/18/19 25 11/17/2024 CBC W Auto Diffe renti al panel - Blood MCHC [entitic mass/volume] in red blood cells by automated count 32.7 g/dL low: 31.7g/ dLhigh : 36.3g/ dL MCHC 32.7 31.7 - 36.3 g/dL 11/17 3:15 AM [facility] Not Available Not Available 12/11/2024 16:15:54 11/18/19 25 11/17/2024 CBC W Auto Diffe renti al panel - Blood erythrocyte [distwidth] in red blood cells by automated count 21 % low: 11.3%h igh: 14.8% high RDW-C V 21.0 (H) 11.3 - 14.8 % 11/17 3:15 AM [facility] Not Available Not Available 12/11/2024 16:15:54 11/18/19 25 11/17/2024 CBC W Auto Diffe renti al panel - Blood platelets [#/volume] in blood by automated count 210 text: 150 - 420 x10e9/ L Plate let Count 210 150 - 420 x10E9 /L 11/17 3:15 AM [facility] Not Available Not Available 12/11/2024 16:15:54 11/18/19 25 11/17/2024 CBC W Auto Diffe renti al panel - Blood platelet [entitic mean volume] in blood by automated count 10 fL low: 7.8fLh igh: 11.4fL MPV 10.0 7.8 - 11.4 fL 11/17 3:15 AM [facility] Not Available Not Available 12/11/2024 16:15:54 11/18/19 25 11/17/2024 CBC W Auto Diffe renti al panel - Blood neutrophils/ leukocytes in blood by automated count 75.9 % low: 41%hig h: 74% high Neutr ophil % 75.9 (H) 41.0 - 74.0 % 11/17 3:15 AM CDT [facility] Not Available Not Available 12/11/2024 16:15:54 11/18/19 25 11/17/2024 CBC W Auto Diffe renti al panel - Blood lymphocytes/ leukocytes in blood by automated count 8.8 % low: 17%hig h: 47% low Lymph ocyte % 8.8 (L) 17.0 - 47.0 % 11/17 3:15 AM CDT [facility] Not Available Not Available 12/11/2024 16:15:54 11/18/19 25 11/17/2024 CBC W Auto Diffe renti al panel - Blood monocytes/le ukocytes in blood by automated count 13.6 % low: 3%high : 11% high Monoc yte % 13.6 (H) 3.0 - 11.0 % 11/17 3:15 AM CDT [facility] Not Available Not Available 12/11/2024 16:15:54 11/18/19 25 11/17/2024 CBC W Auto Diffe renti al panel - Blood eosinophils/ leukocytes in blood by automated count 1.2 % low: 0%high : 7% Eosin ophil % 1.2 0.0 - 7.0 % 11/17 3:15 AM CDT [facility] Not Available Not Available 12/11/2024 16:15:54 11/18/19 25 11/17/2024 CBC W Auto Diffe renti al panel - Blood basophils/le ukocytes in blood by automated count 0.1 % low: 0%high : 1.6% Basop hil % 0.1 0.0 - 1.6 % 11/17 3:15 AM CDT [facility] Not Available Not Available 12/11/2024 16:15:54 11/18/19 25 11/17/2024 CBC W Auto Diffe renti al panel - Blood immature granulocytes /leukocytes in blood by automated count 0.4 % low: 0%high : 1% Immat ure Granu locyt es % 0.4 0.0 - 1.0 % 11/17 3:15 AM CDT [facility] Not Available Not Available 12/11/2024 16:15:54 11/18/19 25 11/17/2024 CBC W Auto Diffe renti al panel - Blood neutrophils [#/volume] in blood by automated count 5.5 text: 1.60 - 7.50 x10e9/ L Neutr ophil Absol [place] 5.50 1.60 - 7.50 x10E9 /L 11/17 3:15 AM CDT [facility] Not Available Not Available 12/11/2024 16:15:54 11/18/19 25 11/17/2024 CBC W Auto Diffe renti al panel - Blood lymphocytes [#/volume] in blood by automated count 0.64 text: 1.00 - 4.40 x10e9/ L low Lymph ocyte Absol [place] 0.64 (L) 1.00 - 4.40 x10E9 /L 11/17 3:15 AM CDT [facility] Not Available Not Available 12/11/2024 16:15:54 11/18/19 25 11/17/2024 CBC W Auto Diffe renti al panel - Blood monocytes [#/volume] in blood by automated count 0.99 text: 0.15 - 1.00 x10e9/ L Monoc yte Absol [place] 0.99 0.15 - 1.00 x10E9 /L 11/17 3:15 AM CDT [facility] Not Available Not Available 12/11/2024 16:15:54 11/18/19 25 11/17/2024 CBC W Auto Diffe renti al panel - Blood eosinophils [#/volume] in blood 0.09 text: 0.00 - 0.60 x10e9/ L Eosin ophil Absol [place] 0.09 0.00 - 0.60 x10E9 /L 11/17 3:15 AM CDT [facility] Not Available Not Available 12/11/2024 16:15:54 11/18/19 25 11/17/2024 CBC W Auto Diffe renti al panel - Blood basophils [#/volume] in blood by automated count 0.01 text: 0.00 - 0.13 x10e9/ L Basop hil Absol [place] 0.01 0.00 - 0.13 x10E9 /L 11/17 3:15 AM CDT [facility] [employer] [facility] Not Available Not Available 12/11/2024 16:15:54 11/18/19 25 11/17/2024 CBC W Auto Diffe renti al panel - Blood interpretati on and review of laboratory results Abnorm al Not Available Not Available 16:15:54 11/18/19 25 11/17/2024 Phosp hate [Mass /volu me] in Serum or Plasm a phosphate [mass/volume ] in serum or plasma 3.6 mg/dL low: 2.8mg/ dLhigh : 5.1mg/ dL Phosp horus 3.6 2.8 - 5.1 mg/dL 11/17 3:34 AM T [facility] [employer] [facility] Not Available Not Available 12/11/2024 16:15:54 11/18/19 25 11/17/2024 Phosp hate [Mass /volu me] in Serum or Plasm a interpretati on and review of laboratory results Normal Not Available Not Available 11/26 16:15:54 11/18/19 25 11/17/2024 Magne sium [Mass /volu me] in Serum or Plasm a magnesium [mass/volume ] in serum or plasma 1.7 mg/dL low: 1.6mg/ dLhigh : 2.6mg/ dL Magne sium 1.7 1.6 - 2.6 mg/dL 11/17 3:34 AM [facility] [employer] [facility] Not Available Not Available 12/11/2024 16:15:53 11/18/19 25 11/17/2024 Magne sium [Mass /volu me] in Serum or Plasm a interpretati on and review of laboratory results Normal Not Available Not Available 11/26 16:15:53 11/19/19 25 11/18/2024 Gluco se [Mass /volu me] in Arter ial blood glucose [mass/volume ] in capillary blood by glucometer 258 mg/dL low: 70mg/d Lhigh: 99mg/d L high Gluco se WB/PO C 258 (H) 70 - 99 mg/dL 11/18 10:32 PM CDT [facility] Not Available Not Available 12/11/2024 16:15:55 11/19/19 25 11/18/2024 Gluco se [Mass /volu me] in Arter ial blood specimen source identified Cap Finger stick Speci men Type Cap Finge rstic k 11/18 10:32 PM CDT [facility] Not Available Not Available 12/11/2024 16:15:55 11/19/19 25 11/18/2024 Gluco se [Mass /volu me] in Arter ial blood interpretati on and review of laboratory results Abnorm al Not Available Not Available 16:15:55 11/19/19 25 11/18/2024 Gluco se [Mass /volu me] in Arter ial blood glucose [mass/volume ] in capillary blood by glucometer 214 mg/dL low: 70mg/d Lhigh: 99mg/d L high Gluco se WB/PO C 214 (H) 70 - 99 mg/dL 11/18 5:19 PM CDT [facility] Not Available Not Available 12/11/2024 16:15:55 11/19/19 25 11/18/2024 Gluco se [Mass /volu me] in Arter ial blood specimen source identified Arteri al Speci men Type Arter ial 11/18 5:19 PM CDT [facility] Not Available Not Available 12/11/2024 16:15:55 11/19/19 25 11/18/2024 Gluco se [Mass /volu me] in Arter ial blood interpretati on and review of laboratory results Abnorm al Not Available Not Available 16:15:55 11/19/19 25 11/18/2024 Gluco se [Mass /volu me] in Arter ial blood glucose [mass/volume ] in capillary blood by glucometer 199 mg/dL low: 70mg/d Lhigh: 99mg/d L high Gluco se WB/PO C 199 (H) 70 - 99 mg/dL 11/18 12:58 PM CDT [facility] Not Available Not Available 12/11/2024 16:15:55 11/19/19 25 11/18/2024 Gluco se [Mass /volu me] in Arter ial blood specimen source identified Arteri al Speci men Type Arter ial 11/18 12:58 PM CDT [facility] Not Available Not Available 12/11/2024 16:15:55 11/19/19 25 11/18/2024 Gluco se [Mass /volu me] in Arter ial blood interpretati on and review of laboratory results Abnorm al Not Available Not Available 16:15:55 11/19/19 25 11/19/2024 Gluco se [Mass /volu me] in Arter ial blood glucose [mass/volume ] in capillary blood by glucometer 261 mg/dL low: 70mg/d Lhigh: 99mg/d L high Gluco se WB/PO C 261 (H) 70 - 99 mg/dL 11/19 6:47 AM CDT [facility] Not Available Not Available 12/11/2024 16:15:54 11/19/19 25 11/19/2024 Gluco se [Mass /volu me] in Arter ial blood specimen source identified Arteri al Speci men Type Arter ial 11/19 6:47 AM CDT [facility] Not Available Not Available 12/11/2024 16:15:54 11/19/19 25 11/19/2024 Gluco se [Mass /volu me] in Arter ial blood interpretati on and review of laboratory results Abnorm al Not Available Not Available 16:15:54 11/19/19 25 11/18/2024 CBC W Auto Diffe renti al panel - Blood leukocytes [#/volume] in blood by automated count 7.1 text: 4.0 - 10.7 x10e9/ L WBC 7.1 4.0 - 10.7 x10E9 /L 11/18 4:15 AM CDT [facility] Not Available Not Available 12/11/2024 16:15:54 11/19/19 25 11/18/2024 CBC W Auto Diffe [place] panel - Blood erythrocytes [#/volume] in blood by automated count 3.85 text: 4.30 - 5.80 x10e12 /L low RBC Count 3.85 (L) 4.30 - 5.80 x10E1 2/L 11/18 4:15 AM CDT [facility] [employer] [facility] Not Available Not Available 12/11/2024 16:15:54 11/19/1911/18/2024 CBC W Auto Diffe rose al panel - Blood hemoglobin [mass/volume ] in blood 9.8 g/dL low: 13.3g/ dLhigh : 17.5g/ dL low Hemog lobin 9.8 (L) 13.3 - 17.5 g/dL 11/18 4:15 AM CDT [facility] [employer] [facility] Not Available Not Available 12/11/2024 16:15:54 11/19/1911/18/2024 CBC W Auto Diffe [place] panel - Blood hematocrit [volume fraction] of blood by automated count 30.1 % low: 38.7%h igh: 51.1% low Hemat ocrit 30.1 (L) 38.7 - 51.1 % 11/18 4:15 AM T [facility] [employer] [facility] Not Available Not Available 12/11/2024 16:15:54 11/19/19 25 11/18/2024 CBC W Auto Diffe [place] panel - Blood MCV [entitic mean volume] in red blood cells by automated count 78.2 fL low: 80fLhi gh: 98fL low MCV 78.2 (L) 80.0 - 98.0 fL 11/18 4:15 AM CDT [facility] [employer] [facility] Not Available Not Available 12/11/2024 16:15:54 11/19/19 25 11/18/2024 CBC W Auto Diffe rose al panel - Blood MCH [entitic mass] by automated count 25.5 pg low: 26.7pg high: 33.6pg low MCH 25.5 (L) 26.7 - 33.6 pg 11/18 4:15 AM CDT [facility] [employer] [facility] [place] Not Available Not Available 12/11/2024 16:15:54 11/19/19 25 11/18/2024 CBC W Auto Diffe renti al panel - Blood MCHC [entitic mass/volume] in red blood cells by automated count 32.6 g/dL low: 31.7g/ dLhigh : 36.3g/ dL MCHC 32.6 31.7 - 36.3 g/dL 11/18 4:15 AM CDT [facility] [place] Not Available Not Available 12/11/2024 16:15:54 11/19/19 25 11/18/2024 CBC W Auto Diffe renti al panel - Blood erythrocyte [distwidth] in red blood cells by automated count 20.9 % low: 11.3%h igh: 14.8% high RDW-C V 20.9 (H) 11.3 - 14.8 % 11/18 4:15 AM CDT [facility] Not Available Not Available 12/11/2024 16:15:54 11/19/19 25 11/18/2024 CBC W Auto Diffe renti al panel - Blood platelets [#/volume] in blood by automated count 236 text: 150 - 420 x10e9/ L Plate let Count 236 150 - 420 x10E9 /L 11/18 4:15 AM CDT [facility] Not Available Not Available 12/11/2024 16:15:54 11/19/19 25 11/18/2024 CBC W Auto Diffe renti al panel - Blood platelet [entitic mean volume] in blood by automated count 9.6 fL low: 7.8fLh igh: 11.4fL MPV 9.6 7.8 - 11.4 fL 11/18 4:15 AM CDT [facility] Not Available Not Available 12/11/2024 16:15:54 11/19/19 25 11/18/2024 CBC W Auto Diffe renti al panel - Blood neutrophils/ leukocytes in blood by automated count 74.2 % low: 41%hig h: 74% high Neutr ophil % 74.2 (H) 41.0 - 74.0 % 11/18 4:15 AM CDT [facility] Not Available Not Available 12/11/2024 16:15:54 11/19/19 25 11/18/2024 CBC W Auto Diffe renti al panel - Blood lymphocytes/ leukocytes in blood by automated count 11.9 % low: 17%hig h: 47% low Lymph ocyte % 11.9 (L) 17.0 - 47.0 % 11/18 4:15 AM CDT [facility] Not Available Not Available 12/11/2024 16:15:54 11/19/19 25 11/18/2024 CBC W Auto Diffe renti al panel - Blood monocytes/le ukocytes in blood by automated count 12.1 % low: 3%high : 11% high Monoc yte % 12.1 (H) 3.0 - 11.0 % 11/18 4:15 AM CDT [facility] Not Available Not Available 12/11/2024 16:15:54 11/19/19 25 11/18/2024 CBC W Auto Diffe renti al panel - Blood eosinophils/ leukocytes in blood by automated count 1.1 % low: 0%high : 7% Eosin ophil % 1.1 0.0 - 7.0 % 11/18 4:15 AM CDT [facility] Not Available Not Available 12/11/2024 16:15:54 11/19/19 25 11/18/2024 CBC W Auto Diffe renti al panel - Blood basophils/le ukocytes in blood by automated count 0.3 % low: 0%high : 1.6% Basop hil % 0.3 0.0 - 1.6 % 11/18 4:15 AM CDT [facility] Not Available Not Available 12/11/2024 16:15:54 11/19/19 25 11/18/2024 CBC W Auto Diffe renti al panel - Blood immature granulocytes /leukocytes in blood by automated count 0.4 % low: 0%high : 1% Immat ure Granu locyt es % 0.4 0.0 - 1.0 % 11/18 4:15 AM CDT [facility] Not Available Not Available 12/11/2024 16:15:54 11/19/19 25 11/18/2024 CBC W Auto Diffe renti al panel - Blood neutrophils [#/volume] in blood by automated count 5.25 text: 1.60 - 7.50 x10e9/ L Neutr ophil Absol [place] 5.25 1.60 - 7.50 x10E9 /L 11/18 4:15 AM CDT [facility] Not Available Not Available 12/11/2024 16:15:54 11/19/19 25 11/18/2024 CBC W Auto Diffe renti al panel - Blood lymphocytes [#/volume] in blood by automated count 0.84 text: 1.00 - 4.40 x10e9/ L low Lymph ocyte Absol [place] 0.84 (L) 1.00 - 4.40 x10E9 /L 11/18 4:15 AM CDT [facility] Not Available Not Available 12/11/2024 16:15:54 11/19/19 25 11/18/2024 CBC W Auto Diffe renti al panel - Blood monocytes [#/volume] in blood by automated count 0.86 text: 0.15 - 1.00 x10e9/ L Monoc yte Absol [place] 0.86 0.15 - 1.00 x10E9 /L 11/18 4:15 AM CDT [facility] [employer] [facility] Not Available Not Available 12/11/2024 16:15:54 11/19/19 25 11/18/2024 CBC W Auto Diffe renti al panel - Blood eosinophils [#/volume] in blood 0.08 text: 0.00 - 0.60 x10e9/ L Eosin ophil Absol [place] 0.08 0.00 - 0.60 x10E9 /L 11/18 4:15 AM CDT [facility] Not Available Not Available 12/11/2024 16:15:54 11/19/19 25 11/18/2024 CBC W Auto Diffe renti al panel - Blood basophils [#/volume] in blood by automated count 0.02 text: 0.00 - 0.13 x10e9/ L Basop hil Absol [place] 0.02 0.00 - 0.13 x10E9 /L 11/18 4:15 AM CDT [facility] Not Available Not Available 12/11/2024 16:15:54 11/19/19 25 11/18/2024 CBC W Auto Diffe rose al panel - Blood interpretati on and review of laboratory results Abnorm al Not Available Not Available 16:15:54 11/19/19 25 11/18/2024 Phosp hate [Mass /volu me] in Serum or Plasm a phosphate [mass/volume ] in serum or plasma 3.6 mg/dL low: 2.8mg/ dLhigh : 5.1mg/ dL Phosp horus 3.6 2.8 - 5.1 mg/dL 11/18 4:40 AM CDT [facility] Not Available Not Available 12/11/2024 16:15:54 11/19/19 25 11/18/2024 Phosp hate [Mass /volu me] in Serum or Plasm a interpretati on and review of laboratory results Normal Not Available Not Available 11/26 16:15:54 11/19/19 25 11/18/2024 Magne sium [Mass /volu me] in Serum or Plasm a magnesium [mass/volume ] in serum or plasma 1.9 mg/dL low: 1.6mg/ dLhigh : 2.6mg/ dL Magne sium 1.9 1.6 - 2.6 mg/dL 11/18 4:40 AM [facility] [employer] [facility] Not Available Not Available 12/11/2024 16:15:54 11/19/19 25 11/18/2024 Magne sium [Mass /volu me] in Serum or Plasm a interpretati on and review of laboratory results Normal Not Available Not Available 11/26 16:15:54 11/20/19 25 11/19/2024 Gluco se [Mass /volu me] in Arter ial blood glucose [mass/volume ] in capillary blood by glucometer 229 mg/dL low: 70mg/d Lhigh: 99mg/d L high Gluco se WB/PO C 229 (H) 70 - 99 mg/dL 11/19 9:20 PM CDT [facility] [place] Not Available Not Available 12/11/2024 16:15:38 11/20/1911/19/2024 Gluco se [Mass /volu me] in Arter ial blood specimen source identified Cap Finger stick Speci men Type Cap Finge rstic k 11/19 9:20 PM CDT [facility] [place] Not Available Not Available 12/11/2024 16:15:38 11/20/1911/19/2024 Gluco se [Mass /volu me] in Arter ial blood interpretati on and review of laboratory results Abnorm al Not Available Not Available 16:15:38 11/20/1911/20/2024 Gluco se [Mass /volu me] in Arter ial blood glucose [mass/volume ] in capillary blood by glucometer 305 mg/dL low: 70mg/d Lhigh: 99mg/d L high Gluco se WB/PO C 305 (H) 70 - 99 mg/dL 11/20 7:33 AM CDT [facility] [place] Not Available Not Available 12/11/2024 16:15:55 11/20/1911/20/2024 Gluco se [Mass /volu me] in Arter ial blood specimen source identified Cap Finger stick Speci men Type Cap Finge rstic k 11/20 7:33 AM CDT [facility] [place] Not Available Not Available 12/11/2024 16:15:55 11/20/1911/20/2024 Gluco se [Mass /volu me] in Arter ial blood interpretati on and review of laboratory results Abnorm al Not Available Not Available 16:15:55 11/20/1911/20/2024 Gluco se [Mass /volu me] in Arter ial blood glucose [mass/volume ] in capillary blood by glucometer 166 mg/dL low: 70mg/d Lhigh: 99mg/d L high Gluco se WB/PO C 166 (H) 70 - 99 mg/dL 11/20 7:33 AM CDT [facility] [place] Not Available Not Available 12/11/2024 16:15:55 11/20/1911/20/2024 Gluco se [Mass /volu me] in Arter ial blood specimen source identified Cap Finger stick Speci men Type Cap Jeremi rstic k 11/20 7:33 AM CDT [facility] [place] Not Available Not Available 12/11/2024 16:15:55 11/20/1911/20/2024 Gluco se [Mass /volu me] in Arter ial blood interpretati on and review of laboratory results Abnorm al Not Available Not Available 16:15:55 11/20/1911/19/2024 CBC W Auto Diffe renti al panel - Blood leukocytes [#/volume] in blood by automated count 7.8 text: 4.0 - 10.7 x10e9/ L WBC 7.8 4.0 - 10.7 x10E9 /L 11/19 2:19 AM CDT [facility] Not Available Not Available 12/11/2024 16:15:38 11/20/1911/19/2024 CBC W Auto Diffe renti al panel - Blood erythrocytes [#/volume] in blood by automated count 3.92 text: 4.30 - 5.80 x10e12 /L low RBC Count 3.92 (L) 4.30 - 5.80 x10E1 2/L 11/19 2:19 AM CDT [facility] Not Available Not Available 12/11/2024 16:15:38 11/20/1911/19/2024 CBC W Auto Diffe renti al panel - Blood hemoglobin [mass/volume ] in blood 9.9 g/dL low: 13.3g/ dLhigh : 17.5g/ dL low Hemog lobin 9.9 (L) 13.3 - 17.5 g/dL 11/19 2:19 AM CDT [facility] Not Available Not Available 12/11/2024 16:15:38 11/20/19 25 11/19/2024 CBC W Auto Diffe renti al panel - Blood hematocrit [volume fraction] of blood by automated count 31.2 % low: 38.7%h igh: 51.1% low Hemat ocrit 31.2 (L) 38.7 - 51.1 % 11/19 2:19 AM T [facility] Not Available Not Available 12/11/2024 16:15:38 11/20/1911/19/2024 CBC W Auto Diffe renti al panel - Blood MCV [entitic mean volume] in red blood cells by automated count 79.6 fL low: 80fLhi gh: 98fL low MCV 79.6 (L) 80.0 - 98.0 fL 11/19 2:19 AM T [facility] Not Available Not Available 12/11/2024 16:15:38 11/20/1911/19/2024 CBC W Auto Diffe renti al panel - Blood MCH [entitic mass] by automated count 25.3 pg low: 26.7pg high: 33.6pg low MCH 25.3 (L) 26.7 - 33.6 pg 11/19 2:19 AM [facility] Not Available Not Available 12/11/2024 16:15:38 11/20/1911/19/2024 CBC W Auto Diffe renti al panel - Blood MCHC [entitic mass/volume] in red blood cells by automated count 31.7 g/dL low: 31.7g/ dLhigh : 36.3g/ dL MCHC 31.7 31.7 - 36.3 g/dL 11/19 2:19 AM [facility] Not Available Not Available 12/11/2024 16:15:38 11/20/1911/19/2024 CBC W Auto Diffe renti al panel - Blood erythrocyte [distwidth] in red blood cells by automated count 20.9 % low: 11.3%h igh: 14.8% high RDW-C V 20.9 (H) 11.3 - 14.8 % 11/19 2:19 AM [facility] Not Available Not Available 12/11/2024 16:15:38 11/20/1911/19/2024 CBC W Auto Diffe renti al panel - Blood platelets [#/volume] in blood by automated count 263 text: 150 - 420 x10e9/ L Plate let Count 263 150 - 420 x10E9 /L 11/19 2:19 AM CDT [facility] Not Available Not Available 12/11/2024 16:15:38 11/20/1911/19/2024 CBC W Auto Diffe renti al panel - Blood platelet [entitic mean volume] in blood by automated count 9.7 fL low: 7.8fLh igh: 11.4fL MPV 9.7 7.8 - 11.4 fL 11/19 2:19 AM CDT [facility] Not Available Not Available 12/11/2024 16:15:38 11/20/1911/19/2024 CBC W Auto Diffe renti al panel - Blood neutrophils/ leukocytes in blood by automated count 75.8 % low: 41%hig h: 74% high Neutr ophil % 75.8 (H) 41.0 - 74.0 % 11/19 2:19 AM CDT [facility] Not Available Not Available 12/11/2024 16:15:38 11/20/1911/19/2024 CBC W Auto Diffe renti al panel - Blood lymphocytes/ leukocytes in blood by automated count 10.2 % low: 17%hig h: 47% low Lymph ocyte % 10.2 (L) 17.0 - 47.0 % 11/19 2:19 AM CDT [facility] Not Available Not Available 12/11/2024 16:15:38 11/20/1911/19/2024 CBC W Auto Diffe renti al panel - Blood monocytes/le ukocytes in blood by automated count 11.9 % low: 3%high : 11% high Monoc yte % 11.9 (H) 3.0 - 11.0 % 11/19 2:19 AM CDT [facility] Not Available Not Available 12/11/2024 16:15:38 11/20/19 25 11/19/2024 CBC W Auto Diffe renti al panel - Blood eosinophils/ leukocytes in blood by automated count 1.4 % low: 0%high : 7% Eosin ophil % 1.4 0.0 - 7.0 % 11/19 2:19 AM CDT [facility] Not Available Not Available 12/11/2024 16:15:38 11/20/1911/19/2024 CBC W Auto Diffe renti al panel - Blood basophils/le ukocytes in blood by automated count 0.3 % low: 0%high : 1.6% Basop hil % 0.3 0.0 - 1.6 % 11/19 2:19 AM CDT [facility] Not Available Not Available 12/11/2024 16:15:38 11/20/1911/19/2024 CBC W Auto Diffe renti al panel - Blood immature granulocytes /leukocytes in blood by automated count 0.4 % low: 0%high : 1% Immat ure Granu locyt es % 0.4 0.0 - 1.0 % 11/19 2:19 AM CDT [facility] Not Available Not Available 12/11/2024 16:15:38 11/20/1911/19/2024 CBC W Auto Diffe marisolti al panel - Blood neutrophils [#/volume] in blood by automated count 5.89 text: 1.60 - 7.50 x10e9/ L Neutr ophil Absol [place] 5.89 1.60 - 7.50 x10E9 /L 11/19 2:19 AM CDT [facility] [place] Not Available Not Available 12/11/2024 16:15:38 11/20/1911/19/2024 CBC W Auto Diffe renti al panel - Blood lymphocytes [#/volume] in blood by automated count 0.79 text: 1.00 - 4.40 x10e9/ L low Lymph ocyte Absol [place] 0.79 (L) 1.00 - 4.40 x10E9 /L 11/19 2:19 AM CDT [facility] Not Available Not Available 12/11/2024 16:15:38 11/20/1911/19/2024 CBC W Auto Diffe renti al panel - Blood monocytes [#/volume] in blood by automated count 0.92 text: 0.15 - 1.00 x10e9/ L Monoc yte Absol [place] 0.92 0.15 - 1.00 x10E9 /L 11/19 2:19 AM CDT [facility] [employer] [facility] [place] Not Available Not Available 12/11/2024 16:15:38 11/20/1911/19/2024 CBC W Auto Diffe renti al panel - Blood eosinophils [#/volume] in blood 0.11 text: 0.00 - 0.60 x10e9/ L Eosin ophil Absol [place] 0.11 0.00 - 0.60 x10E9 /L 11/19 2:19 AM CDT [facility] [employer] [facility] Not Available Not Available 12/11/2024 16:15:38 11/20/1911/19/2024 CBC W Auto Diffe renti al panel - Blood basophils [#/volume] in blood by automated count 0.02 text: 0.00 - 0.13 x10e9/ L Basop hil Absol [place] 0.02 0.00 - 0.13 x10E9 /L 11/19 2:19 AM CDT [facility] [employer] [facility] Not Available Not Available 12/11/2024 16:15:38 11/20/1911/19/2024 CBC W Auto Diffe renti al panel - Blood interpretati on and review of laboratory results Abnorm al Not Available Not Available 16:15:38 11/20/1911/19/2024 Phosp hate [Mass /volu me] in Serum or Plasm a phosphate [mass/volume ] in serum or plasma 4.3 mg/dL low: 2.8mg/ dLhigh : 5.1mg/ dL Phosp horus 4.3 2.8 - 5.1 mg/dL 11/19 2:47 AM CDT [facility] [employer] [facility] Not Available Not Available 12/11/2024 16:15:37 11/20/1911/19/2024 Phosp hate [Mass /volu me] in Serum or Plasm a interpretati on and review of laboratory results Normal Not Available Not Available 11/26 16:15:37 11/20/19 25 11/19/2024 Magne sium [Mass /volu me] in Serum or Plasm a magnesium [mass/volume ] in serum or plasma 2.2 mg/dL low: 1.6mg/ dLhigh : 2.6mg/ dL Magne sium 2.2 1.6 - 2.6 mg/dL 11/19 2:47 AM CDT [facility] Not Available Not Available 12/11/2024 16:15:37 11/20/19 25 11/19/2024 Magne sium [Mass /volu me] in Serum or Plasm a interpretati on and review of laboratory results Normal Not Available Not Available 11/26 16:15:37 01/04/20 24 01/02/2024 (RUEL) ankle brach ial index * No observ ation record ed. [address] [place], [address], 03/11/2024 13:27:10 03/06/20 24 03/05/2024 elect rocar diogr am, routi ne ECG with at least 12 leads ; rosanne ng only, witho ut inter preta tion and repor t (PROC ) No observ ation record ed. [address] [place], [address], 03/11/2024 13:27:09 03/06/20 24 03/05/2024 elect rocar diogr am, routi ne ECG with at least 12 leads ; rosanne ng only, witho ut inter preta tion and repor t (PROC ) No observ ation record ed. [address] [place], [address], 03/11/2024 13:27:09 03/06/20 24 03/05/2024 XR, chest No observ ation record ed. [address] Department [address] [place], [address], 03/11/2024 13:27:09 03/11/20 24 03/05/2024 elect rickie solomon am No observ ation record ed. [email or web address] Scheduling [address] [place], [address], 05/06/2024 11:02:18 03/12/20 24 03/05/2024 elect rickie alvaradogr am, routi ne ECG with at least 12 leads ; rosanne ng only, witho ut inter preta tion and repor t (PROC ) No observ ation record ed. [facility] Scheduling [address] [facility], [place], [address], 08/02/2024 13:14:32 03/19/20 24 MRI thor spine wo con [facility] [address] [facility] [address] INDICA TION: Bowel and bladde r incont inence . Cauda equina syndro me suspec anibal EXAMIN ATION: MRI of the thorac ic spine withou t contra st. TECHNI QUE: Multip lanar and multis equenc e MRI images of the thorac ic spine were were obtain ed withou t contra st. COMPAR KAMALJIT: None FINDIN GS: Asbestos Siding Mechanic locali zer images were obtain ed from the cranio cervic al juncti on throug h upper lumbar spine for the purpos es of verteb ral body number ing. Partia lly imaged degene rative change s in the cervic al spine with disc degene ration , endpla te/unc overte bral osteop hytes, and facet hypert rophy noted. Multil evel cervic al spinal canal stenos is suspec anibal, incomp letely visual ized. S-shap ed thorac olumba r scolio sis with mid thorac ic dextro scolio sis. Otherw ise the thorac ic verteb ral alignm ent, verteb ral body height s, and facet alignm ent are mainta ined. Multil evel degene rative change s eviden t in the thorac ic spine with disc degene ration , endpla te osteop hytes, and ligame ntous/ facet hypert rophy noted. Multil evel disc desicc ation. No obviou s thorac ic cord signal abnorm ality identi fied, though assess ment is limite d by motion and artifa ct. Imaged portio ns of the soft tissue s reveal marked asymme tric enlarg ement of the left lobe of the thyroi d with mass effect upon the trache a, esopha trudi, and neck vascul ature. C7-T1: Mild disc bulge. Facet hypert rophy. No signif icant canal or forami nal narrow ing. T1-T2: Tiny disc bulge. Small endpla te osteop hytes. Facet hypert rophy. No signif icant canal stenos is. Mild to modera te left forami nal narrow ing. T2-T3: Small endpla te osteop hytes. Facet hypert rophy. No signif icant canal or forami nal narrow ing. T3-T4: Small endpla te osteop hytes. Facet hypert rophy. No signif icant canal or forami nal narrow ing. T4-T5: Facet hypert rophy. No canal or forami nal narrow ing. T5-T6: Facet hypert rophy. No signif icant canal or forami nal narrow ing. T6-T7: Ligame ntous/ facet hypert rophy. Flatte loli of the dorsol ateral thecal sac. Indent ation of the dorsol ateral cord. No signif icant forami nal narrow ing. T7-T8: Ligame ntous/ facet hypert rophy. Indent ation of the dorsol ateral thecal sac. Modera te left forami nal narrow ing T8-T9: Ligame ntous/ facet hypert rophy. Indent ation of the dorsol ateral thecal sac. Modera te left and mild right forami nal narrow ing. T9-T10 : Tiny disc bulge. Ligame ntous/ facet hypert rophy. Indent ation of the dorsol ateral thecal sac. Mild to modera te left forami nal narrow ing. T10-T1 1: Mild disc bulge. Ligame ntous/ facet hypert rophy. Flatte loli of the dorsol ateral thecal sac. Modera te left and mild right forami nal narrow ing. T11-T1 2: Disc bulge. Ligame ntous/ facet hypert rophy. Flatte loli of the thecal sac. Modera te right and mild to modera te left forami nal narrow ing. T12-L1 : Mild disc bulge. Ligame ntous/ facet hypert rophy. No signif icant canal or forami nal stenos is. IMPRES PREETHI: 1. Multil evel degene rative change s in the thorac ic spine as detail ed above. 2. No obviou s thorac ic cord signal abnorm ality identi fied, though assess ment is limite d by motion and artifa ct. 3. Partia lly imaged degene rative change s in the cervic al spine with multil evel cervic al spinal canal stenos is suspec anibal. Could furthe r evalua te with cervic al spine MRI. 4. Partia lly imaged marked enlarg ement of the left lobe of the thyroi d with mass effect upon the trache a, esopha trudi, and adjace nt neck vascul ature. Could furthe r evalua te with thyroi d ultras ound. Referr ed By: Electr onical ly Signed By: Matias Miranda MD on 6:40 PM Interp reted By: Matias Miranda MD, 6:34 PM [facility] [address] [facility], [place], [address], 08/02/2024 13:14:32 03/19/20 24 MRI lumb spine wo con [facility] [place] [address] INDICA TION: Bowel and bladde r incont inence . Cauda equina syndro me suspec anibal. EXAMIN ATION: MRI lumbar spine withou t contra st. TECHNI QUE: Multip lanar and multis equenc e MRI images of the lumbar spine were obtain ed withou t contra st. COMPAR KAMALJIT: None FINDIN GS: There are 5 lumbar type verteb ral bodies design ated as L1 throug h L5; using this number ing system , the conus medull yola termin ates at T12-L1 and appear s unrema rkable . S-shap ed thorac olumba r scolio sis with mid thorac ic dextro scolio sis, upper lumbar levosc oliosi s, and lower lumbar dextro scolio sis. There is grade 1 howie listhe sis of L4 on L5 and L5 on S1. Otherw ise the lumbar verteb ral alignm ent, verteb ral body height s, and facet alignm ent are mainta ined. Multil evel degene rative change s are eviden t in the lower thorac ic and lumbar spine with disc degene ration , endpla te osteop hytes, ligame ntum flavum thicke loli, and facet hypert rophy noted. There is increa sed T2/STI R signal within the L3-L4 interv ertebr al disc, probab ly reacti ve/deg enerat joseph, in the absenc e of clinic al concer n for superi nfecti on. Additi onal likely reacti ve/deg enerat joseph edema noted along the mid and lower lumbar facets . Multil evel disc desicc ation seen elsewh ere. Asymme tric atroph y of the right iliops oas muscul ature. Postsu rgical change s in the right hip with associ ated suscep tibili ty artifa ct. Imaged portio ns of the soft tissue s reveal a left renal cyst. Prosta tomega ly with mass effect upon the bladde r. T12-L1 : Mild disc bulge. Ligame ntous/ facet hypert rophy. No signif icant canal or forami nal narrow ing. L1-L2: Disc bulge with extens ion into the forami na. Endpla te osteop hytes. Ligame ntous/ facet hypert rophy. Degene rative synovi al cyst along the howie medial aspect of the left L1-L2 facet articu lation . Mild to modera te canal stenos is. Modera te right and mild left forami nal narrow ing. L2-L3: Disc bulge with extens ion into the forami na. Endpla te osteop hytes. Ligame ntous/ facet hypert rophy. Modera te canal stenos is. Modera te right and mild left forami nal narrow ing. L3-L4: Disc and gin clerk ior/ma rginal endpla te osteop hyte comple x. Promin ent ligame ntum flavum thicke loli. Pronou nced facet arthro amandeep with bilate ral facet joint synovi al effusi ons. Severe canal stenos is with comple te efface ment of the thecal sac. No discer nible CSF signal seen surrou nding the cauda equina . Severe bilate ral forami nal narrow ing, left worse than right. L4-L5: Slight howie listhe sis. Disc bulge with extens ion into the forami na. Endpla te osteop hytes. Promin ent ligame ntum flavum thicke loli. Pronou nced facet arthro amandeep, worse on the left. Severe canal stenos is with comple te efface ment of the thecal sac. No discer nible CSF seen surrou nding the cauda equina . Severe left and modera te right forami nal narrow ing. L5-S1: Howie listhe sis. Disc bulge with extens ion into the forami na. Endpla te osteop hytes. Ligame ntum flavum thicke loli. Facet hypert rophy. Modera te to severe canal stenos is with near comple te efface ment of the thecal sac. Severe left and at least modera te right forami nal narrow ing. IMPRES PREETHI: 1. Advanc ed multil evel degene rative change s in the lumbar spine. Severe spinal canal stenos is at L3-L4 and L4-L5 with comple te efface ment of the thecal sac and no discer nible CSF signal surrou nding the cauda equina . Additi onal modera te to severe canal stenos is at L5-S1. 2. Multil evel severe /moder ate to severe forami nal narrow ing from L3-L4 throug h L5-S1. 3. Additi onal degene rative change s elsewh ere as detail ed. 4. S-shap ed thorac olumba r scolio sis and multil evel listhe ses. 5. Prosta tomega ly with mass effect upon the bladde r. Could correl ate with PSA. Referr ed By: Electr onical ly Signed By: Matias Miranda MD on 024 6:54 PM Interp reted By: Matias Miranda MD, 6:[address], [address], 08/02/2024 13:14:32 03/21/20 24 ECG 12-le ad [facility] [place], [place] [id number] [place], [place] [address]s [place] [address] [place], [place] Test Date: 03-20 Pat Name: CAREY Belle Depart ment: 39 Patien t ID: [id number] Room: E04123 Gender : Male Techni niesha: DATNG : 12-25 Reques anibal By: BRANDY PEREZ Order Number : [id number] Heaven rcio MD: Oxana Workman Measur ements Interv als [place] Rate: 63 P: 79 RI: 138 QRS: 104 QRSD: 94 T: 57 QT: 389 QTc: 401 Interp retive Statem ents SINUS RHYTHM MARKED RIGHT AXIS DEVIAT ION [QRS AXIS > 100] No previo us ECG availa ble for compar kamaljit Electr onical ly signed by Oxana Workman at 5:25:[address], [place], [address], 08/02/2024 13:14:31 03/21/20 24 MRI lumb spine W con [facility] [address] EXAMIN ATION: MRI of the lumbar spine withou t contra st INDICA TION:B ack pain, evalua te for L3/L4 discit is TECHNI QUE: Multip lanar multis equenc e MR imagin g of the lumbar spine was perfor med withou t intrav enous contra st. The patien t was report edly unable to tolera te comple tion of the exam. No contra st enhanc ed images of the lumbar spine were acquir ed. COMPAR KAMALJIT: Lumbar spine MRI 024 FINDIN GS:Las t fully formed disc space presum ably repres ent L5/S1. There is 20 degree s of lumbar dextro scolio sis measur ed from L3 to L5. There is preser vation of verteb ral body height s and disc spaces . There is decrea sed STIR signal within the L3 and L4 verteb ral bodies . Severe disc space narrow ing at L3/L4. There is increa sed STIR signal within the L3/L4 disc space. There is a mild protru preethi within the adjoin ing L3 and L4 endpla alysa. No acute fractu re or disloc ation. No spondy lolist hesis. The conus termin ates at T12/L1 and is unrema rkable contou r and signal . No parasp inal mass or fluid collec tion. The visual ized abdomi nal aorta is unrema rkable in contou r. There is a 2.7 cm T2 hyperi ntense lesion within the anteri or left renal cortex , not fully charac terize d but statis ticall y most likely reflec ting a cyst. There is right renal cortic al atroph y. Signal artifa ct is noted in the gin clerk ior right pelvis . The prosta te gland is enlarg ed. T11/T1 2: Disc space narrow ing and facet arthro amandeep causin g modera te bilate ral forami nal stenos is T12/L1 : Disc space narrow ing and facet arthro amandeep causin g mild bilate ral forami nal stenos is. L1/L2: Disc space narrow ing disc bulgin g and facet arthro amandeep causin g severe right neural forami nal stenos is and mild left neural forami nal stenos is. L2/L3: Disc space narrow ing, disc bulgin g and facet arthro amandeep mild centra l canal stenos is and mild bilate ral forami nal stenos is. The thecal sac measur es 7 mm L3/L4: Short pedicl es, disc space narrow ing, small gin clerk ior disc/o steoph yte comple x, hypert rophic facet arthro amandeep and bilate ral forami nal osteop hytes causin g severe centra l canal stenos is and severe bilate ral neural forami nal stenos is. The thecal sac measur es 2 mm L4/L5: Disc space narrow ing, short pedicl es, disc bulgin g and hypert rophic facet arthro amandeep causin g severe centra l canal stenos is and severe left neural forami nal stenos is and mild right neural forami nal stenos is. Thecal sac measur es 3 mm L5/S1: Disc space narrow ing with small gin clerk ior disc/o steoph yte comple x and facet arthro amandeep causin g modera te centra l canal stenos is and severe left neural forami nal stenos is and modera te right neural forami nal stenos is. IMPRES PREETHI: 1. There is severe disc space narrow ing at L3/L4 with a mild endpla te erosiv e change s and edema type signal within the L3/L4 disc space. Findin gs are compat ible with advanc ed degene rative change s. Early or mild discit is cannot be exclud ed. No bone marrow edema to sugges t osteom yeliti s. Short- term follow -up MRI may be helpfu l if clinic ally indica anibal. 2. 20 degree s of lumbar dextro scolio sis. No acute fractu re or disloc ation. 3. Severe centra l canal stenos is at L3/L4 and L4/L5 due to short pedicl es, gin clerk ior disc/o steoph yte comple xes and hypert rophic facet arthro amandeep. Modera te centra l canal stenos is at L5/S1. Mild centra l canal stenos is at L2/L3. 4. Severe neurof oramin al stenos is on the right at L1/L2 and L3/L4. Modera te neural forami nal stenos is on the right at T11/T1 2 and L5/S1. 5. Severe neurof oramin al stenos is on the left at L3/L4 L4/L5 and L5/S1. Modera te neural forami nal stenos is on the left at T11/T1 2. 6. Prosta tomega ly. Please correl ate with physic al exam and PSA levels . Referr ed By: Beba onical ly Signed By: Haresh Grissom MD on 7/25/2 024 12:01 PM Interp reted By: Haresh Grissom MD, 11:50 AM [facility] [address], [place], [address], 08/02/2024 13:14:31 03/21/20 24 MRI cerv spine wwo con [facility] [place] [address] EXAMIN ATION: MRI of the cervic al spine with and withou t contra st INDICA TION:M ultipl e sclero sis, incide ntal bone lesion TECHNI QUE: Multip lanar multi sequen ce MR imagin g of the cervic al spine was perfor med prior to and follow ing the admini strati on of 14 mL Dotare m contra st intrav enousl y. COMPAR KAMALJIT: None FINDIN GS:Cer vical spine is in anatom ic alignm ent. Is preser vation of verteb ral body height s and disc spaces . Bone marrow signal is within normal limits with no acute fractu re or disloc ation. No abnorm al enhanc ement. Modera te to severe patchy areas of increa sed T2 and STIR signal are noted within the kemar and midbra in. The cervic al spinal cord is unrema rkable in course and signal . There is a hetero geneou s enhanc ing mass within the left lobe of thyroi d gland measur ing up to 8.9 cm. There is a 2 x 1 cm enhanc ing nodule within the right lobe of the thyroi d gland. No prever tebral edema or retrop haryng eal fluid collec tion. No other parasp inal mass or fluid collec tion No stenos is at the forame n magnum or C1/C2 level C2/C3: Uncove rtebra l facet arthro amandeep causin g modera te bilate ral forami nal stenos is C3/C4: Disc space narrow ing with 3 mm retrol isthes is, short pedicl es, small gin clerk ior disc/o steoph yte comple x, uncove rtebra l arthro amandeep and facet arthro amandeep causin g severe centra l canal stenos is and severe bilate ral forami nal stenos is. The thecal sac measur es 4 mm. C4/C5: Disc space narrow ing with 3 mm retrol isthes is, short pedicl es, small gin clerk ior disc/o steoph yte comple x, uncove rtebra l arthro amandeep and facet arthro amandeep causin g severe centra l canal stenos is and severe bilate ral forami nal stenos is. The thecal sac measur es 4 mm C5/C6: Disc space narrow ing disc bulgin g and facet arthro amandeep causin g modera te bilate ral forami nal stenos is. C6/C7: Negati ve C7/T1: Negati ve. There is a 1.3 cm cystic lesion along the latera l aspect of the left lobe of the thyroi d gland. IMPRES PREETHI: 1. Severe centra l canal stenos is at C3/C4 and C4/C5 due to grade 1 retrol isthes is, short pedicl es, small gin clerk ior disc/o steoph yte comple xes and facet arthro amandeep. No cervic al cord signal abnorm ality or abnorm al enhanc ement. 2. Severe bilate ral neural forami nal stenos is at C3/C4 and C4/C5. Modera te bilate ral forami nal stenos is at C2/C3 and C5/C6. 3. Indete rminan t 8.9 cm enhanc ing mass within the left lobe of the thyroi d gland. 2.1 cm lesion within the right lobe of the thyroi d gland. Furthe r evalua tion with noneme rgent ultras ound is recomm ended. 4. Nonspe cific 1.3 cm cystic lesion partia lly visual ized latera l to the left lobe of the thyroi d gland. Metast atic cervic al lymph node cannot be exclud ed. Furthe r evalua tion with a noneme rgent contra st enhanc ed neck soft tissue CT is recomm ended. Referr ed By: Electr onical ly Signed By: Haresh Grissom MD on 12:18 PM Interp reted By: Haresh Grissom MD, 12:12 PM [facility] [address], [place], [address], 08/02/2024 13:14:31 03/22/[address] soft tissu e neck W con [facility] [address] EXAMIN ATION: CT soft tissue neck with contra st ACCESS ION: [id number] EXAM DATE/T AMANDA: 11:07 PM REASON FOR EXAM: Swelli ng, melinda n for mass tumor COMPAR KAMALJIT: MRI cervic al spine TECHNI QUE: Axial CT images of the soft tissue s of the neck are perfor med before and after uneven tful intrav enous admini strati on of 100 cc Isovue -370. Subseq uent wyman l and sagitt al reform atted sequen dennis are create d for evalua tion. A dose loweri ng techni que was used for this proced ure, which may includ e, but is not limite d to, dose reduct ion techni que, automa anibal exposu re contro l, iterat joseph recons tructi on, ALARA (As Low As Reason ably Achiev able), or Image Gently techni ques. FINDIN GS: Visual ized aspect s of the brain are withou t acute abnorm ality. No cervic al lympha denopa thy is seen. The thyroi d is enlarg ed, contai loli a hetero geneou s left-s ided mass/n odule measur ing 5.1 x 5.0 cm in axial dimens ion and 8.1 cm in cranio caudal dimens ion. There is associ ated mass effect on the airway /trach ea. There is also a right- sided thyroi d nodule , up to 2.0 cm. Bilate ral paroti d and bilate ral subman dibula r glands are unrema rkable . Appare nt cystic lesion partia lly visual ized on cervic al spine MRI likely corres ponds to a venous struct ure given partia l fillin g with contra st. The visual ized aspect s of the upper lungs are withou t mass or airspa ce consol idatio n. No acute osseou s abnorm ality is seen. IMPRES PREETHI: 1. Enlarg ed thyroi d contai loli a hetero geneou s left-s ided mass/n odule up to 8.1 cm. Associ ated mass effect on the airway /trach ea. Tissue sampli ng as well as furthe r evalua tion with ultras ound are recomm ended. 2. Right- sided thyroi d nodule at the 2.0 cm. Attent ion on ultras ound is recomm ended. 3. Appare nt cystic lesion partia lly visual ized on cervic al spine MRI likely corres ponds to a venous struct ure given partia l fillin g with contra st. Referr ed By: Electr onical ly Signed By: Leonard longoria MD on 11:39 PM Interp reted By: Leonard longoria MD, 11:24 PM [facility] [address] [facility], [place], [address], 08/02/2024 13:14:31 03/22/[address] [facility] [place] [address] Myocar dial Perfus ion Imagin g Pat.Na me: CAREY BURNETTE IUSPat .ID: [id number] .Mario e: Refer. 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 Stat.: Inpati ent Reason for Study: Chest pain, Shortn ess of breath , Pre-Op erativ e Cardio vascul ar Examin ation Histor y / Clinic al:Donna betes, Hypert ension , COPD, Stroke /CVA/T [place] Proced ures: Nuclea r Stress Test with Lexisc an Surger y: Cardia c Cathet erizat ion, Nuclea r Stress Test, Echoca rdiogr am ++++++ ++++++ ++++++ ++++++ ++++++ ++++++ SUMMAR Y: ++++++ ++++++ ++++++ ++++++ ++++++ ++++++ Stress conclu preethi: 1. Clinic ally negati ve. 2. Electr ocardi ograph ically negati ve stress test for ischem ia. 3. Scinti graphi c images to follow . Perfus ion conclu preethi: 1. Good study qualit y. No motion correc tion was applie d to images . No attenu ation is noted. Prone imagin g was perfor med. 2. Normal myocar dial perfus ion SPECT imagin g. 3. Normal wall motion with an ejecti on fracti on of 76%. 4. Stress test with myocar dial perfus ion imagin g shows overal l low risk for a cardia c event. ++++++ ++++++ ++++++ ++++++ ++++++ ++++++ FINDIN GS: ++++++ ++++++ ++++++ ++++++ ++++++ ++++++ Protoc ol: Lexisc an 0.4mg was given as a rapid inject ion IV over a period of 10 second s with the radiop harmac eutica l inject ed at 20 second s. The images were proces sed using the standa rd SPECT techni que. A gated study was perfor med on the stress images . Impres preethi: SPECT images demons trate normal perfus ion of normal intens ity. Heart Size: The left ventri michelle is normal . LV Wall Motion : The LVEF is calcul ated to be 76%. Gated SPECT images reveal normal wall motion . Transi ent Ischem ic Dilata tion: The TID is 1.02. There is no eviden ce of Transi ent Ischem ic Dilata tion. ++++++ ++++++ ++++++ ++++++ ++++++ ++++++ STRESS : ++++++ ++++++ ++++++ ++++++ ++++++ ++++++ Baseli ne Vital Signs: ECG: Normal sinus rhythm HR: 66 bmp Rest BP: 141/60 Regade noson Peak Dose: 0.4 mg Stress Test Result s: Max HR: 90 bmp Target HR: 151 bmp % Target : 60 % Max BP: 134/94 Max RPP: [id number] O2 sat: 99 % Sympto ms and Compli cation s: Termin ated: Protoc ol comple anibal Sympto ms: Shortn ess of breath , Nausea Compli cation s: None Stress ECG Interp : No signif icant change s 2023 12:24 PM Fab rico M.D. [address], [place], [address], 08/02/2024 13:14:31 03/26/20 24 03/26/2024 yovanny nuous video EEG monit oring , techn ical compo nent; 12-26 hrs (PROC ) No observ ation record ed. [email or web address], [address], 08/02/2024 13:14:31 03/26/20 24 MRI brain wo con [facility] [place] [address] EXAMIN ATION: Brain MRI withou t contra st 024 INDICA TION:E ncepha lopath y, evalua te for stroke TECHNI QUE: Multip lanar multis equenc e MR imagin g of the head was perfor med withou t intrav enous contra st. COMPAR KAMALJIT: None FINDIN GS:No restri cted diffus ion. No acute hemorr rodrick, mass effect or midlin e shift retrop haryng eal fluid collec tion. There is modera te cerebr al atroph y with concor dant promin ence of ventri cles. Nonspe cific modera te to severe patchy areas of increa sed FLAIR signal are seen within the kemar and suprat entori al white matter . There is a small chroni c infarc t within the right kemar. Expect ed flow voids are noted within the intrac ranial culinary internship al caroti d, verteb ral basila r is. The cerebe llopon trey angles and culinary internship al audito ry canals are unrema rkable . The pituit elbert gland midlin e struct ures are unrema rkable . Bone marrow signal is within normal limits . The orbits and globes are unrema rkable . Expect ed signal voids are seen within the parana sd sinuse s and mastoi d air cells. IMPRES PREETHI: 1. No acute infarc t, hemorr rodrick or mass effect 2. Nonspe cific modera te to advanc ed FLAIR signal abnorm alitie s of the kemar and suprat entori al white matter , compat ible with chroni c small vessel ischem ic change s. 3. Modera te cerebr al atroph y with concor dant promin ence of the ventri cles. Referr ed By: Beba onical ly Signed By: Haresh Grissom MD on 9:38 AM Interp reted By: Haresh Grissom MD, 9:27 AM [facility] [address] [facility], [place], [address], 08/02/2024 13:14:31 03/27/20 24 ECG 12-le ad [facility] [address] [facility] [address] Lazcano Test Date: 03-26 Pat Name: CAREY Belel Depart ment: 39 Patien t ID: [id number] Room: [id number] Gender : Male Techni niesha: Nh : 1956-0 4-30 Reques anibal By: LEANNABetyKiet DEBBY Order Number : [id number] Heaven rico MD: Omid Lilly Measur ements Interv als [place] Rate: 56 P: 254 RI: 153 QRS: 95 QRSD: 95 T: 43 QT: 402 QTc: 390 Interp retive Statem ents SINUS BRADYC ARDIA BORDER LINE RIGHT AXIS DEVIAT ION [QRS AXIS > 90] SEPTAL MYOCAR DIAL INFARC TION [40+ ms Q WAVE IN V1/V2] , OF INDETE RMINAT E AGE Compar ed to ECG 2023 11:31: 27 Myocar dial infarc t findin g now presen t Sinus rhythm no longer presen t Electr onical ly signed by Omid Lilly at 23:40: 57 CDT [facility] [address] [facility], [place], [address], 08/02/2024 13:14:31 05/07/[address] 24 [address] cerv spine wo con [facility] [address] [facility] [place] [address] . [facility] [address], [place] [address] EXAM: CT CERV SPINE WO CON DATE: COMPAR KAMALJIT: None. Some correl ation to a soft tissue neck exam . INDICA TION: Bilate ral upper extrem ity weakne ss and pain. TECHNI QUE: Noncon trast imagin g A dose loweri ng techni que was used for this proced ure, which may includ e, but is not limite d to, dose reduct ion techni que, automa anibal exposu re contro l, iterat joseph recons tructi on, ALARA (As Low As Reason ably Achiev able), or Image Gently techni ques. FINDIN GS: No findin gs for fractu re. Normal prever tebral soft tissue thickn ess. C2-3: Small disc bulge is partia lly calcif ied. C3-4: About 3 mm of anteri or spondy lolist hesis C4 relate d to C3. No change . Partia lly calcif ied disc bulge. Modera te spinal stenos is. C4-5: About 3 mm of anteri or spondy lolist hesis of C5 relati ve to C4. No change . Partia lly calcif ied disc bulge. Mild spinal stenos is. Bilate ral forami nal stenos is. C5-6: Normal . C6-7: Normal . C7-T1: Normal . Large abnorm al appear ing left thyroi d lobe has been previo usly descri bed. This is not comple tely within the field- of-vie w for a cervic al spine exam. There are bilate ral caroti d artery calcif icatio ns near the bifurc ations . Recomm end correl ation with noneme rgent ultras ound. IMPRES PREETHI: 1. No acute appear ing cervic al spine findin gs. 2. Spinal stenos is at C3-4 and C4-5. Referr ed By: Beba hyatt ly Signed By: Uday Yeung MD on 6:47 PM Interp reted By: Uday Yeung MD, 6:[address], [place], [address], 08/02/2024 13:14:31 Result Notes None recorded. Problems Name Problem SNOMED Code Status Onset Date Resolution Date Notes Provider Name and Address Organization Details Recorded Time Chronic obstructive pulmonary disease 65843216 Active 2020 Bill Lr [place] null, [place] [facility] 1 15:27:00 Neuropathy 672066063 Active 2020 Bill Lr [place], [place] [facility] 1 10:00:53 Essential hypertension 69315471 Active Nereida Guzman [place], [place] [facility] 6 16:35:13 Diabetes mellitus 39353737 Active Joseph Rust MD Attn: Accounting, [address] [facility], [place], [address], [place] [facility] 6 17:04:33 Osteoarthrit is 653407991 Active Shannon Gale LPN [place], [place] [facility] 6 09:28:23 Gastroesopha geal reflux disease 841534006 Active Joseph Rust MD Attn: Accounting, [address] [place], [address], [place] [facility] 6 17:04:33 Cerebrovascu lar accident 818595135 Active Joseph Rust MD Attn: Accounting, [address] [facility], [place], [address], [place] [facility] 6 17:04:33 Cellulitis of finger 59741196 Active Nereida Guzman [place] [facility] 6 16:35:13 Localized, 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 Please review these documents and add these problems to the patient's chart manually as needed. Problem Notes None recorded. Procedures Surgical History Date Name Laterality Status Provider Name and Address Organization Details Recorded Time 3 Routine Foot Care completed ANTHONY PIEDRA DPM [address] [place], [address], [place] [facility] 06/15/2023 16:13:53 3 Routine Foot Care completed KHUSBU DE JESUS, DPM [address], [place], [address], [facility] 02/08/2023 20:59:42 1 Routine Foot Care completed ANTHONY PIEDRA, DPM [address], [place], [address], [facility] 08/05/2021 15:39:31 1 Routine Foot Care completed ANTHONY PIEDRA DPM [address], [place], [address], [facility] 05/27/2021 16:14:17 1 Cerumen removal without microscope completed Flower Lozano [facility] 10/06/2020 12:07:29 0 Routine Foot Care completed Sj Mayorgao DPM [address], [place], [address], [facility] 05/14/2020 16:38:20 9 Routine Foot Care completed Sj Mayorgao DPM [address], [place], [address], [facility] 10/24/2018 10:06:50 8 Routine Foot Care completed ANTHONY PIEDRA, DPM [address], [place], [address], [facility] 03/20/2018 17:38:42 Imaging Results None recorded. Procedure Notes None recorded. Medical Equipment None Reported. Allergies No known drug allergies Medications Name Sig Start Date Stop Date Status Note LastModified by Organization Details LastModified Time clever choice comfort ez insulin pe n needles [id number] 31g x 8 mm misc active Not Available Not Available Not Available Prescript ion - New 08/02 completed CMN for diabetic inserts [facility] Not Available Not Available Not Available losartan 50 mg tablet 08/02 completed Not Available Not Available Not Available cyclobenz aprine 10 mg tablet 08/02 completed Not Available Not Available Not Available metformin 500 mg tablet active Not Available Not Available Not Available hydralazi ne 10 mg tablet active Not Available Not Available Not Available BD Alcohol Swabs 08/02 completed Not Available Not Available Not Available atorvasta tin 80 mg tablet TAKE 1 TABLET BY MOUTH EVERY DAY active Not Available Not Available No t Available carvedilo l 25 mg tablet TAKE 1 TABLET BY MOUTH TWICE DAILY active Not Available Not Available No t Available prednison e 10 mg tablet 08/02 completed Not Available Not Available Not Available gabapenti n 600 mg tablet TAKE 2 TABLETS BY MOUTH THREE TIMES DAILY active Not Available Not Available No t Available doxycycli ne hyclate 100 mg capsule active Not Available Not Available Not Available nicotine 14 mg/24 hr daily transderm al patch UNWRAP AND APPLY 1 PATCH TO EVERY DAY 08/02 completed Not Available Not Available Not Available albuterol sulfate 2.5 mg/3 mL (0.083 %) solution for nebulizat ion Inhale 3 mL 3 times a day by nebuliza tion route for 90 days. active Not Available Not Available No t Available trazodone 50 mg tablet active Not Available Not Available Not Available triamcino lone acetonide 0.5 % topical cream APPLY A THIN LAYER TOPICALL Y TO THE AFFECTED AREA TWICE DAILY FOR 1 TO 2 MONTHS TO MRIGHT ANTERIOR CALF LESION 08/02 completed Not Available Not Available Not Available cetirizin e 10 mg tablet Take 1 tablet every day by oral route for 30 days. 08/02 completed Not Available Not Available Not Available Pneumovax -23 25 mcg/0.5 mL injection solution 08/02 completed Not Available Not Available Not Available lisinopri l 20 mg-hydroc hlorothia zide 12.5 mg tablet Take 2 tablets every day by oral route for 90 days. 08/02 completed Not Available Not Available Not Available azithromy natalia 250 mg tablet TK 2 TS PO ON DAY 1, THEN TK 1 T PO D FOR 4 DAYS 08/02 completed Not Available Not Available Not Available tizanidin e 4 mg tablet TAKE 1 TABLET BY MOUTH AT BEDTIME NEEDED 08/02 completed Not Available Not Available Not Available ranitidin e 300 mg tablet Take 1 tablet every day by oral route as needed for 90 days. 05/14 completed Not Available Not Available Not Available hydrocodo ne 5 mg-acetam inophen 325 mg tablet Take 1 tablet twice a day by oral route as needed for 30 days. 08/02 completed Not Available Not Available Not Available ondansetr on HCl 4 mg tablet 08/02 completed Not Available Not Available Not Available prednison e 20 mg tablet TAKE 1 TABLET BY MOUTH TWICE DAILY active Not Available Not Available No t Available gabapenti n 400 mg capsule 05/27 completed Not Available Not Available Not Available prednison e 5 mg tablet active Not Available Not Available Not Available Ferrex 150 mg iron capsule 08/02 completed Not Available Not Available Not Available hydralazi ne 25 mg tablet active Not Available Not Available Not Available clopidogr el 75 mg tablet TAKE 1 TABLET BY MOUTH EVERY DAY active Not Available Not Available No t Available amlodipin e 5 mg tablet TAKE 1 TABLET BY MOUTH EVERY DAY active Not Available Not Available No t Available sulfameth oxazole 800 mg-trimet hoprim 160 mg tablet Take 1 tablet every 12 hours by oral route for 10 days. 05/14 completed Not Available Not Available Not Available omeprazol e 40 mg capsule,d elayed release 08/02 completed Not Available Not Available Not Available aspirin 81 mg tablet,de layed release TAKE 1 TABLET BY MOUTH ONCE FOR 1 DOSE 08/02 completed Not Available Not Available Not Available tramadol 50 mg tablet Take 1 tablet every 12 hours by oral route as needed for 30 days. 08/02 completed Not Available Not Available Not Available LiquiTear s 1.4 % eye drops Apply 1 drop 4 times a day by ophthalm ic route. 08/02 completed Not Available Not Available Not Available guaifenes in 100 mg/5 mL oral liquid active Not Available Not Available Not Available lidocaine -prilocai ne 2.5 %-2.5 % topical cream APPLY TOPICALL Y TO FOOT 1 TO 4 TIMES DAILY NEEDED 08/02 completed Not Available Not Available Not Available nortripty line 25 mg capsule TAKE 1 CAPSULE BY MOUTH EVERY DAY IN THE EVENING 08/02 completed Not Available Not Available Not Available meloxicam 7.5 mg tablet TAKE 1 TABLET BY MOUTH EVERY DAY WITH FOOD 08/02 completed Not Available Not Available Not Available oxycodone -acetamin ophen 5 mg-325 mg tablet TAKE 1 TABLET BY MOUTH EVERY 6 HOURS NEEDED FOR PAIN active Not Available Not Available No t Available clonidine HCl 0.2 mg tablet 08/02 completed Not Available Not Available Not Available amoxicill in 875 mg tablet Take 1 tablet every 12 hours by oral route for 10 days. 05/14 completed Not Available Not Available Not Available alprazola m 0.25 mg tablet TAKE 1 TABLET BY MOUTH NIGHTLY NEEDED FOR ANXIETY FOR UP TO 4 DAYS active Not Available Not Available No t Available oxycodone -acetamin ophen 10 mg-325 mg tablet TAKE 1 TABLET BY MOUTH EVERY 6 HOURS NEEDED active Not Available Not Available No t Available gabapenti n 800 mg tablet TAKE 1 TABLET BY MOUTH THREE TIMES DAILY 08/02 completed Not Available Not Available Not Available Triple Antibioti c 3.5 mg-400 unit-5,00 0 unit/gram topical ointment APPLY EXTERNAL LY TO THE AFFECTED AREA EVERY DAY active Not Available Not Available No t Available baclofen 10 mg tablet TAKE 1 TABLET BY MOUTH EVERY DAY NEEDED 08/02 completed Not Available Not Available Not Available amlodipin e 10 mg tablet 08/02 completed Not Available Not Available Not Available benzonata te 100 mg capsule Take 1 capsule 3 times a day by oral route for 10 days. active Not Available Not Available No t Available doxycycli ne monohydra te 100 mg capsule active Not Available Not Available Not Available glipizide ER 2.5 mg tablet, extended release 24 hr TAKE 1 TABLET BY MOUTH TWICE DAILY 08/02 completed Not Available Not Available Not Available hydrocodo ne 7.5 mg-acetam inophen 325 mg tablet 08/02 completed Not Available Not Available Not Available nortripty line 10 mg capsule TAKE 1 CAPSULE BY MOUTH EVERY DAY IN THE EVENING 08/02 completed Not Available Not Available Not Available ranitidin e 150 mg tablet Take 1 tablet twice a day by oral route as directed for 90 days. 05/14 completed Not Available Not Available Not Available lansopraz ole 30 mg capsule,d elayed release TAKE 1 CAPSULE BY MOUTH ONCE DAILY 08/02 completed Not Available Not Available Not Available lidocaine 5 % topical patch PLACE 3 PATCHES ON SKIN DAILY. REMOVE AND DISCARD PATCH WITHIN 12 HOURS OR DIRECTED BY active Not Available Not Available No t Available nicotine 21 mg/24 hr daily transderm al patch Apply 1 patch every day by transder mal route for 30 days. 08/02 completed Not Available Not Available Not Available gabapenti n 300 mg capsule 05/27 completed Not Available Not Available Not Available omeprazol e 20 mg capsule,d elayed release TAKE 1 CAPSULE BY MOUTH EVERY DAY active Not Available Not Available No t Available diltiazem CD 120 mg capsule,e xtended release 24 hr 08/02 completed Not Available Not Available Not Available monteluka st 10 mg tablet TAKE 1 TABLET BY MOUTH EVERY DAY active Not Available Not Available No t Available hydrocodo ne 5 mg-acetam inophen 500 mg tablet 09/08 completed Not Available Not Available Not Available acetamino phen 300 mg-codein e 60 mg tablet 08/02 completed Not Available Not Available Not Available gabapenti n 100 mg capsule 05/27 completed Not Available Not Available Not Available ergocalci ferol (vitamin D2) 1,250 mcg (50,000 unit) capsule TAKE 1 CAPSULE BY MOUTH EVERY MONDAY DIRECTED 08/02 completed Not Available Not Available Not Available Viagra 100 mg tablet -TAKE 1 TABLET BY MOUTH 30-60 MINUTES PRIOR TO SEXUAL ACTIVITY . DO NOT TAKE MORE THAN 1 TABLET IN ANY 24-HOUR PERIOD- 2023 active Not Available Not Available Not Avai lable lisinopri l 10 mg-hydroc hlorothia zide 12.5 mg tablet Take 1 tablet every day by oral route as directed for 90 days. 08/02 completed Not Available Not Available Not Available cefuroxim e axetil 500 mg tablet active Not Available Not Available Not Available oxycodone -acetamin ophen 7.5 mg-325 mg tablet TAKE 1 TABLET BY MOUTH EVERY 6 HOURS NEEDED active Not Available Not Available No t Available albuterol sulfate HFA 90 mcg/actua tion aerosol inhaler INHALE 2 PUFFS BY MOUTH EVERY 4 HOURS active Not Available Not Available No t Available ketoconaz ole 2 % topical cream APPLY TOPICALL Y TO THE AFFECTED AREA EVERY DAY 08/02 completed Not Available Not Available Not Available hydromorp varsha 4 mg tablet TAKE 1 TABLET BY MOUTH EVERY 12 HOURS 08/02 completed Not Available Not Available Not Available hydroxyzi ne HCl 10 mg tablet TAKE 1 TABLET BY MOUTH TWICE DAILY active Not Available Not Available No t Available cefdinir 300 mg capsule active Not Available Not Available Not Available losartan 100 mg tablet TAKE 1 TABLET BY MOUTH EVERY DAY active Not Available Not Available No t Available fluticaso ne propionat e 50 mcg/actua tion nasal spray,varsha pension [place] 1 spray every day by intranas al route for 3 days. 08/02 completed Not Available Not Available Not Available metformin ER 500 mg tablet,ex tended release 24 hr TAKE 3 TABLETS BY MOUTH EVERY DAY WITH EVENING MEAL active Not Available Not Available No t Available glipizide 5 mg tablet TAKE 1 TABLET BY MOUTH BREAKFAS T AND AT LUNCH active Not Available Not Available No t Available naproxen 500 mg tablet 10/06 completed Not Available Not Available Not Available amoxicill in 875 mg-potass ium clavulana te 125 mg tablet TAKE ONE TABLET BY MOUTH EVERY 12 HOURS FOR 10 DAYS 05/14 completed Not Available Not Available Not Available oxycodone 5 mg tablet 08/02 completed Not Available Not Available Not Available insulin lispro (U-100) 100 unit/mL subcutane ous pen ADMINIST ER 5 UNITS UNDER THE SKIN THREE TIMES DAILY BEFORE MEALS active Not Available Not Available No t Available azithromy natalia 500 mg tablet TAKE 1 TABLET BY MOUTH DAILY FOR 3 DAYS 05/27 completed Not Available Not Available Not Available Cialis 20 mg tablet Take 1 tablet every week by oral route for 28 days. 08/02 completed Not Available Not Available Not Available Spiriva with HandiHale r 18 mcg and inhalatio n capsules INHALE THE CONTENTS OF 1 CAPSULE VIA INHALATI ON DEVICE EVERY DAY 08/02 completed Not Available Not Available Not Available duloxetin e 30 mg capsule,d elayed release TAKE 1 CAPSULE BY MOUTH EVERY DAY 08/02 completed Not Available Not Available Not Available duloxetin e 60 mg capsule,d elayed release TAKE 1 CAPSULE BY MOUTH EVERY DAY active Not Available Not Available No t Available lactulose 10 gram/15 mL oral solution TAKE 15 ML BY MOUTH EVERY DAY active Not Available Not Available No t Available pregabali n 75 mg capsule TAKE 1 CAPSULE BY MOUTH THREE TIMES DAILY 2024 active Not Available Not Available Not Avai lable pregabali n 150 mg capsule active Not Available Not Available Not Available BD Ultra-Fin e Short Pen Needle 31 gauge x 5/16 USE FOUR TIMES DAILY DIRECTED active Not Available Not Available No t Available OneTouch UltraMini kit 08/02 completed Not Available Not Available Not Available Symbicort 160 mcg-4.5 mcg/actua tion HFA aerosol inhaler INHALE 2 PUFFS BY MOUTH TWICE DAILY active Not Available Not Available No t Available FeroSul 325 mg (65 mg iron) tablet TAKE 1 TABLET BY MOUTH EVERY DAY 08/02 completed Not Available Not Available Not Available Lantus Solostar U-100 Insulin 100 unit/mL (3 mL) subcutane ous pen INJECT 18 UNITS UNDER SKIN DAILY AT 9PM active Not Available Not Available No t Available OneTouch Verio test strips active Not Available Not Available Not Available lidocaine 5 % topical ointment APPLY TO AFFECTED AREA(S) BY TOPICAL ROUTE 1-4 TIMES DAILY NEEDED on right foot 08/02 completed Not Available Not Available Not Available Eliquis 5 mg tablet TAKE 1 TABLET BY MOUTH EVERY 12 HOURS active Not Available Not Available No t Available Eliquis 2.5 mg tablet 08/02 completed Not Available Not Available Not Available Stimulant Laxative Plus 8.6 mg-50 mg tablet TAKE 1 TABLET BY MOUTH TWICE DAILY active Not Available Not Available No t Available Farxiga 10 mg tablet active Not Available Not Available Not Available Anoro Ellipta 62.5 mcg-25 mcg/actua tion powder for inhalatio n 08/02 completed Not Available Not Available Not Available Spiriva Respimat 2.5 mcg/actua tion solution for inhalatio n active Not Available Not Available Not Available Incruse Ellipta 62.5 mcg/actua tion powder for inhalatio n INHALE 1 PUFF BY MOUTH EVERY DAY active Not Available Not Available No t Available Movantik 25 mg tablet TAKE 1 TABLET BY MOUTH EVERY MORNING NEEDED active Not Available Not Available No t Available Afluria 9481-6330 (PF) 45 mcg (15 mcg x 3)/0.5 mL IM syringe 08/02 completed Not Available Not Available Not Available Belbuca 300 mcg buccal film DISSOLVE 1 FILM BETWEEN THE GUMS AND CHEEK EVERY 12 HOURS 08/02 completed Not Available Not Available Not Available naloxone 4 mg/actuat ion nasal spray ONE SPRAY NEEDED. MAY REPEAT IF NEEDED. active Not Available Not Available No t Available OneTouch Verio Flex Meter active Not Available Not Available Not Available Xtampza ER 36 mg capsule sprinkle TK 1 C PO Q 12 H 08/02 completed Not Available Not Available Not Available Xtampza ER 9 mg capsule sprinkle 10/06 completed Not Available Not Available Not Available Xtampza ER 18 mg capsule sprinkle 10/06 completed Not Available Not Available Not Available Relistor 150 mg tablet TAKE 3 TABLETS BY MOUTH EVERY DAY 08/02 completed Not Available Not Available Not Available Wixela Inhub 250 mcg-50 mcg/dose powder for inhalatio n INHALE 1 PUFF BY MOUTH TWICE DAILY. RINSE MOUTH WITH WATER AFTER USE. DO NOT SWALLOW active Not Available Not Available No t Available OneTouch Delica Plus Lancet 33 gauge active Not Available Not Available Not Available Dexcom G7 Design Printing Machine Setter USE DIRECTED active Not Available Not Available No t Available Dexcom G7 Sensor device active Not Available Not Available Not Available Vitals Date Recorded Body height Oxygen saturation Oxygen saturation in Arterial blood by Pulse oximetry Heart rate Respiratory rate Body temperature Systolic blood pressure Diastolic blood pressure Provider Name and Address Organization Details Last Updated DateTime 4 170.18 cm 96 % 96 % 89 /min 18 /min 98.3 [degF] 153 mm[Hg] 76 mm[Hg] Jett Barnes [place] [facility] 4 17:01:48 Date Recorded Body height Body mass index (BMI) Body weight Oxygen saturation Oxygen saturation in Arterial blood by Pulse oximetry Heart rate Respiratory rate Body temperature Systolic blood pressure Diastolic blood pressure Systolic blood pressure Diastolic blood pressure Provider Name and Address Organization Details Last Updated DateTime 4 170.18 cm 23.5 kg/m2 20338.2 6 g 94 % 94 % 86 /min 18 /min 97 [degF] 88 mm[Hg] 57 mm[Hg] 74 mm[Hg] 51 mm[Hg] Jett Barnes [place] [facility] 4 13:18:33 Date Recorded Body height Body mass index (BMI) Body weight Provider Name and Address Organization Details Last Updated DateTime 06/06/2023 170.18 cm 22.5 kg/m2 34142.81 g Bill Lr MA [facility] 06/06/2023 17:06:27 Date Recorded Body height Body mass index (BMI) Body weight Heart rate Body temperature Systolic blood pressure Diastolic blood pressure Provider Name and Address Organization Details Last Updated DateTime 3 170.18 cm 21.4 kg/m2 72312.8 g 78 /min 98.6 [degF] 134 mm[Hg] 75 mm[Hg] Missy Amanda MA [facility] 3 15:55:45 Date Recorded Body height Oxygen saturation Oxygen saturation in Arterial blood by Pulse oximetry Heart rate Respiratory rate Body temperature Systolic blood pressure Diastolic blood pressure Provider Name and Address Organization Details Last Updated DateTime 4 170.18 cm 98 % 98 % 76 /min 18 /min 97.2 [degF] 112 mm[Hg] 73 mm[Hg] Jett Barnes MA [facility] 4 12:54:48 Social History Question Answer Notes LastModified by [employer] Details LastModified Time Tobacco Smoking Status Current Every Day Smoker Jaime Garduno MA [facility], [facility] 01/16/2018 19:09:55 What Was The Date Of Your Most Recent Tobacco Screening? 08/02/2024 Information not available 08/02/2024 Difficulty Reading? No Information not available 12/13/2017 How Much Tobacco Do You Smoke? 1 PPW [email or web address] Information not available 01/16/2018 Has Tobacco Cessation Counseling Been Provided? Yes [email or web address] Information not available 06/17/2022 On What Date Was Tobacco Cessation Counseling Provided? 08/02/2024 Information not available 08/02/2024 Difficulty Watching TV? No Information not available 12/13/2017 Sex: Male Functional Status Question Answer Note LastModified by [employer] Details LastModified Time What is your level of alcohol consumption? Occasional Information not available 12/13/2017 [address]y [address] at night? No Information no t available 12/13/2017 Mental Status None recorded. Family History Nothing Reported. Medical History Condition Response Coronary Artery Disease N Other Y Atrial Fibrillation N High Blood Pressure Y Kidney or Bladder Problems N Thyroid Problems N GI Problems N Depression N COPD N Blood Clots N Skin Problems N Anemia N Heart Attack (ND) N Diabetes Y Anxiety Disorder N Muscle, Joint, or Bone Problems N Seizures/Epilepsy N Acid Reflux (GERD) Y Cancer N Stroke N Asthma N Allergies N High Cholesterol N Hepatitis N Liver Disease N Headaches N Osteoporosis N Heart Failure N Immunizations Vaccine Type Date Status Note Provider Nam e and Address Organization Details Recorded Time Influenza, split virus, quadrivalent, preservative 6 completed Not Available [facility] 09/14/2019 02:32:35 Influenza, high-dose, trivalent, PF 7 completed Not Available [facility] 09/14/2019 02:40:56 Influenza, split virus, quadrivalent, PF 8 completed Not Available [facility] 09/14/2019 02:36:00 COVID-19, mRNA, LNP-S, PF, 30 mcg/0.3 mL dose 1 completed Gilberto Posadas [place] null, [place] - [facility] 08/24/2021 14:44:03 Influenza, high-dose, quadrivalent, PF 2 completed Bill Lr [place], [place] [facility] 11/16/2021 16:33:14 Past Encounters Encounter ID Performer Location Encounter Start Date Encounter Closed Date Diagnosis/Indication Diagnosis SNOMED-CT Code Diagnosis ICD10 Code Diagnosis Note [id number] Joseph Rust MD [address] [address] 07/29/2014 16:12:00 07/29/2014 18:27:54 Essential hypertension 84008789 Diabetes mellitus 10328552 Osteoarthritis 621666619 pain meds and see specialist ... surgery pending per patient... pain warrants surgery per patient... follow up with surgery Gastroesop hageal reflux disease [id number] Joseph Rust MD [address] [address] 08/29/2014 14:44:07 09/01/2014 12:53:33 Diabetes mellitus 17142683 Essential hypertension 01338702 Gastroesop hageal reflux disease 045302270 Osteoarthritis 544509503 pain meds and follow up [id number] Joseph Rust MD [address] [address] 10/27/2014 15:31:56 10/29/2014 14:09:16 Diabetes mellitus 19388675 meds and follow up Essential hypertension 72007665 Gastroesop hageal reflux disease 485168496 Osteoarthritis 630920219 pain meds and follow up [id number] Joseph Rust MD [address] [address] 05/18/2015 12:10:10 05/27/2015 09:52:24 Diabetes mellitus 59159357 meds and follow up... check labs in 3 months... Essential hypertension 33415332 meds and follow up Gastroesop hageal reflux disease 529139323 meds and follow up... Osteoarthritis 339460313 meds and follow up.. Cerebrovas cular accident [id number] 2011.... meds. 4/5 left side weakness [id number] Joseph Rust MD [address] [address] 09/08/2015 15:51:58 09/21/2015 17:03:22 Cerebrovascular accident [id number] I63.9 2011.... meds. 4/5 left side weakness Diabetes mellitus 752440 09 E11.9 meds and follow up... check labs in 3 months... Essential hypertension 05588252 I10 meds and follow up Gastroesop hageal reflux disease 734771512 K21.9 meds and follow up... Osteoarthritis 948668678 M19.90 low back pain... Cellulitis of finger 275 66340 L03.011 right middle finger... [id number] Keshav Milian MD [facility] [address] [address] 10/05/2015 14:03:40 10/06/2015 14:57:28 Pain of shoulder region 47921227 M25.512 Backache 548182083 M54.5 Localized, primary osteoarthritis of the shoulder region 755309657 M19.012 Adhesive c apsulitis of shoulder 138580254 M75.02 Scoliosis of lumbar spine 833750940 M41.87 [id number] Joseph Rust MD [address] [address] 11/12/2015 16:15:18 12/01/2015 17:17:24 Cerebrovascular accident [id number] I63.9 2011.... meds. 4/5 left side weakness Diabetes mellitus 737564 09 E11.9 meds and follow up... Essential hypertension 61847881 I10 meds and follow up Gastroesop hageal reflux disease 535729905 K21.9 meds and follow up... Osteoarthritis 249553445 M19.90 meds and follow up... Impotence 303463989 N52. 9 meds and follow up... [id number] Joseph Rust MD [place] [address] 3 04/21/2016 16:14:12 04/23/2016 03:47:56 Cerebrovascular accident [id number] I63.9 2011.... meds. 4/5 left side weakness Diabetes mellitus 952413 09 E11.9 meds and follow up... Gastroesop hageal reflux disease 052443599 K21.9 meds and follow up... Osteoarthritis 587380888 M19.90 meds and follow up...seein g surgeon... Impotence 137762724 N52. 9 meds and follow up... [id number] Joseph Rust MD [place] [address] 3 06/21/2016 15:39:40 06/28/2016 10:18:05 Diabetes mellitus 66932984 E11.9 meds and follow up... Essential hypertension 17249817 I10 meds and follow up Cerebrovas cular accident [id number] I63.9 2011.... meds. 4/5 left side weakness Osteoarthritis 679651721 M19.90 meds and follow up...seein g surgeon... Impotence 215696648 N52. 9 meds and follow up... Gastroesop hageal reflux disease 522883446 K21.9 meds and follow up... Cellulitis 412838564 L03 .90 meds and continue drainage [id number] Joseph Rust MD [place] [address] 3 08/12/2016 11:59:30 08/24/2016 09:17:18 Diabetes mellitus 76625552 E11.9 meds and follow up... [id number] Joseph Rust MD [address] [address] 12/08/2016 14:11:12 12/15/2016 16:18:40 Osteoarthritis 110602281 M19.90 meds and follow up...fernando rico surgeon... Diabetes mellitus 080794 09 E11.9 meds and follow up... Essential hypertension 66585920 I10 meds and follow up Gastroesop hageal reflux disease 402194726 K21.9 meds and follow up... Impotence 632278393 N52. 9 meds and follow up... Cerebrovas cular accident [id number] I63.9 2011.... meds. 4/5 left side weakness [id number] Joseph Rust MD [place] [address] 3 01/17/2017 19:19:55 01/31/2017 19:09:49 Osteoarthritis 317114304 M19.90 meds and follow up...fernando rico surgeon... [id number] Joseph Rust MD [address] [address] 02/07/2017 18:23:00 02/14/2017 14:53:18 Electrocardiogram abnormal 292938982 R94.31 [id number] Joseph Rust MD [address] [address] 04/13/2017 12:46:39 04/13/2017 15:39:53 Cerebrovascular accident [id number] I63.9 2011.... meds. 4/5 left side weakness Diabetes mellitus 867411 09 E11.9 meds and follow up... Essential hypertension 03290459 I10 meds and follow up Osteoarthritis 523654213 M19.90 meds and follow up...fernando rico surgeon... scheduled for right hip Impotence 579621945 N52. 9 meds and follow up... Gastroesop hageal reflux disease 689699291 K21.9 meds and follow up... [id number] Joseph Rust MD [address] [address] 06/20/2017 16:46:14 06/21/2017 16:16:14 Cerebrovascular accident [id number] I63.9 2011.... meds. 4/5 left side weakness Essential hypertension 01467992 I10 meds and follow up Diabetes mellitus 749323 09 E11.9 meds and follow up... check labs in 3 months... Gastroesop hageal reflux disease 876547521 K21.9 meds and follow up... Osteoarthritis 282515984 M19.90 meds and follow up...seeadilson rico surgeon... scheduled for right hip , and was successful ...05/07, now 11/04... [id number] Joseph Rust MD [address] [address] 08/17/2017 16:16:35 08/24/2017 09:05:11 Cerebrovascular accident [id number] I63.9 2011.... meds. /5 left side weakness Essential hypertension 55184867 I10 meds and follow up Diabetes mellitus 637351 09 E11.9 meds and follow up... check labs in 3 months... Gastroesop hageal reflux disease 977404758 K21.9 meds and follow up... Osteoarthritis 229293225 M19.90 meds and follow up...seeadilson rico surgeon... scheduled for right hip , and was successful ...05/07, now 11/04... Acute left otitis media 126554091 H66.92 meds and follow up... [id number] Joseph Rust MD [address] [address] 11/15/2017 14:13:44 11/16/2017 11:13:23 Diabetes mellitus 24112334 E11.9 meds and follow up... check labs in 3 months... Essential hypertension 14853435 I10 meds and follow up Cerebrovas cular accident 530327417 I63.9 2011.... meds. 4/5 left side weakness Gastroesop hageal reflux disease 990366336 K21.9 meds and follow up... Osteoarthritis 145671324 M19.90 meds and follow up...fernando rico surgeon... scheduled for right hip , and was successful ...05/07, now 11/04... [id number] Nikita Urbina MD [facility] [address] [place] [address] 12/13/2017 10:50:37 12/14/2017 16:33:42 Type 2 diabetes mellitus without complication 422486853 E11.9 Nuclear sc lerotic cataract 074000302 H25.13 Dry eyes 036291461 H04.1 23 [id number] Joseph Rust MD [address] [address] 01/16/2018 18:10:20 01/18/2018 09:08:55 Osteoarthritis 033987062 M19.90 meds and follow up...fernando rico surgeon... scheduled for right hip , and was successful ...05/07, now 11/04... low back MRI is significan t... may need surgery... Tobacco user 202429608 Z 72.0 send patches and follow up.. [id number] Joseph Rust MD [address] [address] 02/15/2018 14:42:07 02/16/2018 08:42:46 Osteoarthritis 105737484 M19.90 meds and follow up...fernando rico surgeon... scheduled for right hip , and was successful ...05/07, now 11/04... low back MRI is significan t... may need surgery... [id number] ANTHONY PIEDRA DPM [facility] [address] [place] [address] 03/20/2018 16:15:52 03/30/2018 13:54:32 Disorder of nervous system due to type 2 diabetes mellitus 540850125 E11.42 Bilateral atherosclerosis of arteries of lower limbs 2382489216 0537485 I70.203 Onychomycosis 651375936 B35.1 [place] - lesion 340499897 L84 Disorder of ligament 604 70475 M24.20 Tibialis p osterior tendinitis 519470887 M76.829 Ataxic gait 42884310 R26 .0 Muscle weakness 55542656 M62.81 [id number] Joseph Rust MD [place] [address] 3 05/18/2018 14:20:42 05/21/2018 09:34:49 Diabetes mellitus 26440065 E11.9 meds and follow up... check labs in 3 months... Osteoarthritis 125788016 M19.90 meds and follow up...fernando rico surgeon... scheduled for right hip , and was successful ...05/07, now 11/04... low back MRI is significan t... may need surgery... Essential hypertension 66900478 I10 meds and follow up Cerebrovas cular accident 614243356 I63.9 2011.... meds. 4/5 left side weakness Gastroesop hageal reflux disease 533502395 K21.9 meds and follow up... Abscess of perineum 3570 8002 L02.215 meds and refer [id number] Joseph Rust MD [place] [address] 3 07/24/2018 15:14:04 07/27/2018 09:07:24 Diabetes mellitus 56587891 E11.9 meds and follow up... check labs in 3 months... Osteoarthritis 488809964 M19.90 meds and follow up...fernando rico surgeon... scheduled for right hip , and was successful ...05/07, now 11/04... low back MRI is significan t... may need surgery... on Oxycodone per surgeon.. Essential hypertension 64127966 I10 meds and follow up Cerebrovas cular accident [id number] I63.9 2011.... meds. 4/5 left side weakness Gastroesop hageal reflux disease 636616208 K21.9 meds and follow up... Abscess of perineum 3570 8002 L02.215 meds and referred.. . lesions resolved without surgery... [id number] Joseph Rust MD [place] [address] 3 09/21/2018 14:55:30 09/24/2018 14:09:01 Diabetes mellitus 04549886 E11.9 meds and follow up... check labs in 3 months... Osteoarthritis 639059563 M19.90 meds and follow up...fernando rico surgeon... scheduled for right hip , and was successful ...05/07, now 11/04... low back MRI is significan t... may need surgery... on Oxycodone per surgeon.. Essential hypertension 12448467 I10 meds and follow up Cerebrovas cular accident 894508688 I63.9 2011.... meds. 11/30 left side weakness Gastroesop hageal reflux disease 133815461 K21.9 meds and follow up... 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 Tinnitus 40510974 H93.13 refer [id number] Joseph Rust MD [address] [address] 03/29/2019 12:48:40 04/01/2019 08:57:14 Diabetes mellitus 05483139 E11.9 meds and follow up... check labs in 3 months... Osteoarthritis 326641087 M19.90 meds and follow up...fernando rico surgeon... scheduled for right hip , and was successful ...05/07, now 11/04... low back MRI is significan t... may need surgery... on Oxycodone per surgeon.. Essential hypertension 49454554 I10 meds and follow up Cerebrovas cular accident 280141817 I63.9 2011.... meds. 4/5 left side weakness Gastroesop hageal reflux disease 456027595 K21.9 meds and follow up... h/o GI bleed... start PPi and refer with anemia hx... note also has weight loss... follow up with admissin paperwork. . Anemia 068301759 D64.9 refer Neuropathy 588484695 G62 .9 ointment and follow up.. [id number] Sj Payne DPM [facility] [address] [place] [address] 05/14/2020 15:23:05 05/18/2020 13:04:12 Neuropathy due to diabetes mellitus 525952701 E11.42 Congenital vertical talus 433233535 Q66.80 Onychomycosis 911904206 B35.1 Foot callus 821181706 L8 4 [id number] Ryan Peters MD [facility] [address] [place] [address] 10/06/2020 12:03:46 11/26/2020 03:47:03 Impacted cerumen 68246790 H61.20 Sensorineu ral hearing loss of bilateral ears 559771457 H90.3 [id number] Joseph Rust MD [address] [address] 02/24/2021 13:21:08 02/25/2021 09:03:54 Diabetes mellitus 94394129 E11.9 meds and follow up... 1 month Osteoarthritis 117425880 M19.90 meds and follow up...fernando rico surgeon... scheduled for right hip , and was successful ...05/07, now 11/04... low back MRI is significan t... Essential hypertension 64962399 I10 meds and follow up Cerebrovas cular accident 170324064 I63.9 2011.... meds. 4/5 left side weakness Anemia 174619289 D64.9 refer Neuropathy 086430144 G62 .9 ointment and follow up.. Chronic ob structive pulmonary disease 91166069 J44.9 meds and follow up... [id number] Joseph Rust MD [address] [address] 03/19/2021 12:33:17 03/26/2021 03:47:01 [id number] Joseph Rust MD [address] [address] 04/27/2021 13:22:08 04/27/2021 19:52:54 Gastroesophageal reflux disease 397227318 K21.9 meds and follow up... h/o GI bleed... Essential hypertension 45183063 I10 meds and follow up... losartan 50 mg... Tobacco user 686086121 Z 72.0 send patches and follow up.. Primary er ectile dysfunction 927950548 N52.9 meds and follow up Neuropathy 985275977 G62 .9 ointment and follow up.. Diabetes mellitus 121398 09 E11.9 meds and follow up... Pain in left knee 359736 8493 75586 M25.562 meds as needed... Cerebrovas cular accident 255017031 I63.9 2011.... meds. 4/5 left side weakness, but no focal findings except small vessel disease.. [id number] ANTHONY PIEDRA DPM [facility] [address] [address] 05/27/2021 16:01:51 06/24/2021 07:48:02 Disorder of nervous system due to type 2 diabetes mellitus 956833884 E11.42 Bilateral atherosclerosis of arteries of lower limbs 2290856889 7929751 I70.203 Onychomycosis 036670553 B35.1 [place] - lesion 047259150 L84 Tibialis p osterior tendinitis 327179196 M76.829 Ataxic gait 55418805 R26 .0 Muscle weakness 71422642 M62.81 Difficulty walking 46532 2002 R26.2 Unsteady when walking 22 465425 R26.89 Disorder of ligament 604 42527 M24.271 M24.510 [id number] Joseph Rust MD [address] [address] 06/01/2021 16:56:51 06/02/2021 11:57:36 Foot pain 50518905 M79.673 seeing radiation safety officer ... Cerebrovas cular accident 596906401 I63.9 2011.... meds. 4/5 left side weakness, but no focal findings except small vessel disease... ordered scooter chair ... will investigat e and follow up... [id number] ANTHONY PIEDRA DPM [facility] [address] [place] [address] 08/05/2021 15:16:27 08/09/2021 08:03:40 Disorder of nervous system due to type 2 diabetes mellitus 249146876 E11.42 Bilateral atherosclerosis of arteries of lower limbs 0977826743 0544572 I70.203 Onychomycosis 669286284 B35.1 [place] - lesion 233632158 L84 Tibialis p osterior tendinitis 686078542 M76.829 Ataxic gait 90188684 R26 .0 Muscle weakness 39226317 M62.81 Difficulty walking 46054 2003 R26.2 Unsteady when walking 22 947521 R26.89 Disorder of ligament 604 54560 M24.271 M24.272 Tinea pedis 2689960 B35. 3 [id number] Joseph Rust MD [address] [address] 08/24/2021 14:26:45 08/25/2021 12:58:44 Administration of SARS-CoV-2 mRNA vaccine 2421553162 Z23 [id number] Joseph Rust MD [address] [address] 11/16/2021 15:14:09 11/19/2021 09:34:42 Diabetes mellitus 04862952 E11.9 meds and follow up... Gastroesop hageal reflux disease 841982133 K21.9 meds and follow up... h/o GI bleed... Essential hypertension 40591090 I10 meds and follow up... increase losartan 100 mg... Primary er ectile dysfunction 529823336 N52.9 meds and follow up Neuropathy 997426863 G62 .9 ointment and follow up.. Pain in left knee 024954 2520 93285 M25.562 meds as needed... in painmanage ment Cerebrovas cular accident 172138594 I63.9 2011.... meds. 4/5 left side weakness, but no focal findings except small vessel disease on head image... treat risk factors.. Smoker 51614588 F17.200 patches Acute dermatitis 7559396 6 L30.9 [id number] Joseph Rust MD [address] [address] 01/26/2022 11:40:33 01/27/2022 08:44:36 Diabetes mellitus 10542753 E11.9 meds and follow up... Gastroesop hageal reflux disease 561959385 K21.9 meds and follow up... h/o GI bleed... Essential hypertension 55136082 I10 meds and follow up... amlodipine 10 mg and check next month... Primary er ectile dysfunction 457240319 N52.9 meds and follow up Neuropathy 968664703 G62 .9 ointment and follow up.. Pain in left knee 988209 1749 36026 M25.562 meds as needed... in pain management Cerebrovas cular accident 351970059 I63.9 2011.... meds. 4/5 left side weakness, but no focal findings except small vessel disease on head image... treat risk factors.. Smoker 28734510 F17.200 patches Acute dermatitis 8233704 6 L30.9 meds as needed... good skin care.. Chronic ob structive pulmonary disease 13197057 J44.9 meds and follow up...advis ed smoking cessation. .. added nebulizer. . Atrial fibrillation 4360 9675 I48.91 [id number] Joseph Rsut MD [address] [address] 03/07/2022 11:27:01 03/08/2022 07:39:27 Chronic obstructive pulmonary disease 54089968 J44.9 meds and follow up...advis ed smoking cessation. .. added nebulizer. . sees Dr. Adam haines... Essential hypertension 74818976 I10 meds and follow up... refill meds prn Diabetes mellitus 482395 09 E11.9 meds and follow up... Gastroesop hageal reflux disease 244232972 K21.9 meds and follow up... h/o GI bleed... Primary er ectile dysfunction 111030727 N52.9 meds and follow up Neuropathy 344251779 G62 .9 ointment and follow up.. Pain in left knee 495007 2070 79648 M25.562 meds as needed... in pain management ... Cerebrovas cular accident 843635128 I63.9 2011.... meds. 4/5 left side weakness, but no focal findings except small vessel disease on head image... treat risk factors... scooter chair ordered 04-27-2021 ... Smoker 19629626 F17.200 patches Acute dermatitis 6865268 6 L30.9 meds as needed... good skin care.. Atrial fibrillation 4943 6004 I48.91 refer to cardiologi [id number] Joseph Rust MD [address] [address] 06/17/2022 14:00:17 06/20/2022 08:28:30 Diabetes mellitus 47281045 E11.9 meds and follow up... Essential hypertension 25381509 I10 meds and follow up... refill meds prn Osteoarthritis 375695247 M19.90 meds and follow up...seeadilson rico surgeon... scheduled for right hip , and was successful ...05/07, now 11/04... low back MRI is significan t... Chronic ob structive pulmonary disease 74824893 J44.9 meds and follow up...advis ed smoking cessation. .. added nebulizer. . sees Dr. Adam haines... Gastroesop hageal reflux disease 297493382 K21.9 meds and follow up... h/o GI bleed... Cerebrovas cular accident 631531541 I63.9 2011.... meds. 4/5 left side weakness, but no focal findings except small vessel disease on head image... treat risk factors... scooter chair ordered 04-27-2021 ... History of claudication 241313155 Z86.79 left lower ext was done around 7 years ago... [id number] Joseph Rust MD [address] [address] 10/20/2022 14:59:19 10/21/2022 08:12:52 Diabetes mellitus 67714094 E11.9 meds and follow up... Essential hypertension 16084495 I10 meds and follow up... refill meds prn Osteoarthritis 193514169 M19.90 meds and follow up...seeadilson rico surgeon... scheduled for right hip , and was successful ...05/07, now 11/04... low back MRI is significan t... Gastroesop hageal reflux disease 530931622 K21.9 meds and follow up... h/o GI bleed... Cerebrovas cular accident 947761497 I63.9 2011.... meds. 4/5 left side weakness, but no focal findings except small vessel disease on head image... treat risk factors... scooter chair ordered 04-27-2021 ... Chronic ob structive pulmonary disease 82773642 J44.9 meds and follow up...advis ed smoking cessation. .. added nebulizer. . sees Dr. Adam haines... Neuropathy 155259341 G62 .9 ointment and follow up.. Anemia 847314428 D64.9 refer Peripheral vascular disease 454905552 I73.9 refer Smoker 64690211 F17.200 patches [id number] Joseph Rust MD [address] [address] 01/26/2023 15:26:45 01/27/2023 11:34:52 Diabetes mellitus 09702546 E11.9 meds and follow up... Body mass index 20-24 - normal 580824561 Z68.22 bmi=22.3 Neuropathy 964559500 G62 .9 ointment and follow up... refer to neuro... Pain in both feet 352624 8095 1272865 M79.671 M79.672 refer Essential hypertension 97004661 I10 meds and follow up... refill meds prn Osteoarthritis 622847835 M19.90 meds and follow up...fernando rico surgeon... scheduled for right hip , and was successful ...05/07, now 11/04... low back MRI is significan t... Gastroesop hageal reflux disease 548279077 K21.9 meds and follow up... h/o GI bleed... Cerebrovas cular accident 147170619 I63.9 2011.... meds. 4/5 left side weakness, but no focal findings except small vessel disease on head image... treat risk factors... scooter chair ordered 04-27-2021 ... Chronic ob structive pulmonary disease 31908631 J44.9 meds and follow up...advis ed smoking cessation. .. added nebulizer. . sees pulDr. Adam fan... Peripheral vascular disease 442331108 I73.9 referred and s/p surgery... Anemia 943503109 D64.9 refer Smoker 69948933 F17.200 stopped 2021 [id number] [facility] [address] [address] 02/07/2023 16:26:24 02/13/2023 12:36:42 Disorder of nervous system due to type 2 diabetes mellitus 638576566 E11.42 Patient was educated about the systemic risks of diabetes and importance of proper glucose control, dangers of neuropathy and loss of gift of pain and risk stratifica tion and exam frequency. Patient was educated on high pressure areas including risks and offloading solutions. Reviewed with patient proper foot care instructio ns and daily self-exami nation and monitoring of the feet-yovanny nue gabapentin 800mg po tid as prescribed by Dr. Taylor Bilateral atherosclerosis of arteries of lower limbs 6265878333 0553012 I70.203 Patient educated on risks and aggravatin g factors of PVD, including conservati ve treatment options such as a diet and exercise regimen to aid in slowing progressio n of vascular disease. Onychomycosis 998444730 B35.1 Aseptic debridemen t of elongated thickened nails x 10 using sterile nippers, nails were debrided in length utilizing a nail nipper and Dremmel. Iatrogenic bleeding noted to the lateral aspect of the Left hallux, hemostasis acheived using compressio n. Site dressed with bacitracin and bandaid. Instructed patient to dress daily until follow up visit in 1 week. Educated patient on the signs/symp toms of acute infection & instructed patient to report to ED immediatel y should any arise. The patient was educated regarding all treatment options that include topical and oral antifungal treatments . I discussed the options of taking a sample of the nail to confirm diagnosis. Nail clippings were not sent for pathology analysis. The patient was educated why and how the fungal infection evolved in their feet and the patient was given informatio n regarding how to prevent further infection. The patient was told to keep feet dry and change socks. The patient was told to be careful with old shoes and excessive sweating. The patient was educated regarding both OTC and prescripti on treatments . Tibialis p osterior tendinitis 226018943 M76.829 The patient was educated regarding how to mechanical ly stabilize their deformity. The patient was given education about shoe recommenda tions specific for the condition. The patient was educated about custom orthotics and how appropriat e shoes and orthotics can prevent further worsening of the deformity. The patient was educated about how bad shoe habits can worsen the condition. NSAIDS, P.T., injections and other conservati ve treatments were discussed. Both surgical and non surgical treatments were discussed, but conservati ve options were emphasized .-previous ly ordered diabetic shoes with diabetic moldable inserts; patient states being sent a shoe catalog but has yet to place his order-prev iously ordered b/l emily braces; patient given [facility] clinic contact informatio n Ataxic gait 62542714 R26 .0 Muscle weakness 28509180 M62.81 Difficulty walking 24103 2002 R26.2 Unsteady when walking 22 222080 R26.89 Disorder of ligament 604 97804 M24.271 M24.272 Pain of to e of right foot 8724862537 13184 M79.674 Pain of to e of left foot 5906619253 28446 M79.974 [id number] Joseph Rust MD [address] [address] 04/04/2023 17:47:56 04/05/2023 15:36:53 Body mass index 20-24 - normal 851997899 Z68.22 bmi=22.5 Atrial fibrillation 4943 [address]48[address]... on Eliquis... Cerebrovas cular accident 447983075 I63.9 2011.... meds. 4/5 left side weakness, but no focal findings except small vessel disease on head image... treat risk factors... scooter chair obtained, but doesnt have transporte r for it, but had stroke Hyperlipidemia 55854728 E78.5 atorvastat in Anemia 975140018 D64.9 follow up from ER... [id number] Joseph Rust MD [address] [address] 06/06/2023 16:58:01 06/07/2023 08:27:16 Diabetes mellitus 19811640 E11.9 meds and follow up... Essential hypertension 77535079 I10 meds and follow up... refill meds prn Osteoarthritis 299211110 M19.90 meds and follow up...[place] surgeon... scheduled for right hip , and was successful ...05/07, now 11/04... low back MRI is significan t... Gastroesop hageal reflux disease 245461119 K21.9 meds and follow up... h/o GI bleed... Cerebrovas cular accident 451073808 I63.9 2011.... meds. 4/5 left side weakness, but no focal findings except small vessel disease on head image... treat risk factors... scooter chair obtained, but doesnt have transporte r for it, but had stroke Chronic ob structive pulmonary disease 74200314 J44.9 meds and follow up...advis ed smoking cessation. .. added nebulizer. . sees Dr. Adam haines... Neuropathy 313045226 G62 .9 ointment and follow up... refer to neuro... Body mass index 20-24 - normal 566611976 Z68.22 bmi=22.5 [id number] ANTHONY PIEDRA DPM [facility] [address] [place] [address] 06/15/2023 15:36:10 06/19/2023 15:29:02 Disorder of nervous system due to type 2 diabetes mellitus 741709637 E11.42 Bilateral atherosclerosis of arteries of lower limbs 2290620712 4585286 I70.203 Onychomycosis 564614368 B35.1 [place] - lesion 733361574 L84 Tibialis p osterior tendinitis 883012204 M76.829 Ataxic gait 56627371 R26 .0 Muscle weakness 24814604 M62.81 Difficulty walking 24642 2002 R26.2 Unsteady when walking 22 304242 R26.89 Disorder of ligament 604 05179 M24.271 M24.272 Tinea pedis 7834440 B35. 3 [id number] Joseph Rust MD [address] [address] 2023 16:47:03 12/26/2023 10:04:29 Diabetes mellitus 43338583 E11.9 meds and follow up... Peripheral vascular disease 629959604 I73.9 referred and s/p surgery... still has sx of claudicati on... Polyuria 54262747 R35.89 Essential hypertension 89728952 I10 meds and follow up... refill meds prn Chronic ob structive pulmonary disease 14156243 J44.9 meds and follow up...advis ed smoking cessation. .. added nebulizer. . sees Dr. Adam haines... Cerebrovas cular accident 154735254 I63.9 2011.... meds. 4/5 left side weakness, but no focal findings except small vessel disease on head image... treat risk factors... scooter chair obtained, but doesnt have transporte r for it, but had stroke Atrial fibrillation 4943 [address] I48.[address]... on Eliquis... Spinal sriram nosis of lumbar region 76652291 M48.061 seeing neurosurge ry... [id number] Joseph Rust MD [address] [address] 03/11/2024 12:53:59 03/13/2024 10:09:45 Diabetes mellitus 26251865 E11.9 meds and follow up... Body mass index 20-24 - normal 964118848 Z68.22 bmi=23.5 Neuropathy 850936723 G62 .9 ointment and follow up... refer to neuro... Hyperlipidemia 37585451 E78.5 atorvastat in Depressive disorder 3548 9007 F32.A Itching of skin 14407102 0 L29.9 Essential hypertension 05952617 I10 meds and follow up... refill meds prn Gastroesop hageal reflux disease 953600064 K21.9 meds and follow up... h/o GI bleed... Cerebrovas cular accident 285496427 I63.9 2011.... meds. 4/5 left side weakness, but no focal findings except small vessel disease on head image... treat risk factors... scooter chair obtained, but doesnt have transporte r for it, but had stroke Chronic ob structive pulmonary disease 27610411 J44.9 meds and follow up...advis ed smoking cessation. .. added nebulizer. . sees Dr. Adam haines... Low back pain 984576413 M54.50 [id number] Joseph Rust MD [address] [address] 08/02/2024 12:33:00 08/05/2024 10:08:52 Adult health examination 470989058 Z00.00 Diabetes mellitus 526444 09 E11.9 meds and follow up... Lantus 10 units q hs... Body mass index 20-24 - normal 286368942 Z68.22 bmi=23.5 Neuropathy 301614455 G62 .9 ointment and follow up... referred to neuro... Hyperlipidemia 22402204 E78.5 atorvastat in.. Depressive disorder 3548 9007 F32.A Itching of skin 24817110 0 L29.9 Essential hypertension 56053980 I10 meds and follow up... refill meds prn Gastroesop hageal reflux disease 761527981 K21.9 meds and follow up... h/o GI bleed... Cerebrovas cular accident 839317250 I63.9 2011.... meds. 4/5 left side weakness, but no focal findings except small vessel disease on head image... treat risk factors... scooter chair obtained, but doesnt have transporte r for it, but had stroke Chronic ob structive pulmonary disease 09522290 J44.9 meds and follow up...advis ed smoking cessation. .. added nebulizer. . sees Dr. Adam haines... Low back pain 822585529 M54.50 in pain management ... Constipation 23648929 K5 9.00 Carotid ar irvin stenosis 92921015 I65.29 has appt with vascular surgeon... 08-20-2024 appt at [facility]... Health Concerns Section Related Observation LastModified by Organization Detai ls LastModified Time None Recorded Concern Status LastModified by Organization Details LastModified Time None Recorded Advance Directives Directive None Recorded Payers Encounter Date Sequence Insurance Name Policy Number Policy Gomez Covered Member ID Gomez Member ID Guarantor Name 06/06/2023 2 [place] WHEN [place]ARE OR MEDICARE REPLACEMENT PRIMARY) Carey Scanlon [id number] Carey Scanlon 06/06/[address] [facility] (MEDICARE REPLACEMENT/AD VANTAGE - HMO) [id number] Carey Scanlon [id number] Carey Scanlon 06/15/[address] [facility] (MEDICARE REPLACEMENT/AD VANTAGE - HMO) [id number] Carey Scanlon [id number] Carey Scanlon 2023 2 [place] WHEN [place]ARE OR [place]ICARE REPLACEMENT PRIMARY) Carey Scanlon [id number] Carey Scanlon [address] [facility] (MEDICARE REPLACEMENT/AD VANTAGE - HMO) [id number] Carey Scanlon [id number] Carey Scanlon 03/11/[address] [facility] (MEDICARE REPLACEMENT/AD VANTAGE - HMO) [id number] Carey Scanlon [id number] Carey Scanlon 08/02/[address] [facility] (MEDICARE REPLACEMENT/AD VANTAGE - HMO) [id number] Carey Scanlon [id number] Carey Capo Notes Date Note Type Note Provider Name and Address Organization Details Recorded Time 06/06/2023 text/html request referral for neuropathy,... no fevers/chills/SOB. .. unable to walk more than 50 feet... no S/h ideations... Joseph Rust MD Attn: Accounting, [address] [facility], [place], [address], [facility] 06/06/2023 18:06:36 06/15/2023 text/html Patient presents today for evaluation and treatment of nail deformities as well as generalized foot care. The patient states their nails are uncomfortable. The patient has been unable to provide self care due to the severe nature of the deformity and their medical condition(s). The patient is receiving medically necessary foot care in order to prevent further problems as well as to relieve irritation and discomfort. Patient relates a history of diabetes and cannot recall last blood glucose. Per chart review, bracing has previously been ordered for patient however patient states he did not get the braces. States he is not interested in any surgical intervention. ANTHONY PIEDRA, [facility] [address] [place], [address], [facility] 06/15/2023 16:25:36 2023 text/html still has fatigue... also has polyuria... 6 months... Joseph Rust MD Attn: Accounting, [address] [facility], [place], [address], [facility] 2023 17:43:00 03/11/2024 text/html went to ER with low blood sugars... no S/H ideations... has SOB... Joseph Rust MD Attn: Accounting, [address] [place], [address], [facility] 03/11/2024 13:52:01 08/02/2024 text/html feels OK... low back pain still evident... unable to ambulate now without assistance... cervical spine surgery by Katherine... has appt for low back surgery, but he was dx with carotid stenosis... stopped smoking x 1 week... has home PT/OT coming to his home... had hypoglycemic episodes for admission.. Joseph Rust MD Attn: Accounting,[address] [facility], [place], [address], [place] [facility] 08/02/2024 13:38:38
--- OUTSIDE RECORDS SUMMARY | 2025-02-05 18:04 | XMS_ITS | Continuity of Care Document ---
Author Organization [facility] Address [address] [place] [address] Phone Care Team Providers Care Aluminum Molding Machine Operator Name Role Phone Ryan Guan MD Unavailable Unavailable Advance Directives Directive Yes / No Effective Date File Name No Information Encounters Encounter Description Practice Location Reason(s) For Visit Diagnoses Date Provider Providers Copied on Encounter [facility], [address], [place], [place], [address], [place] tel:[phone] [facility] [employer] [employer] Roge Davis. [address], [place], [place], [address], [place]. tel:[phone] Family History Family Member Type Diagnosis Age At Onset No Information Payers Payer name Insurance type Covered republican ID Authoriza tion(s) No Information Social History Type Description Quantity Date Captured Comments Sex Male Smoking Status No Information Chief Complaint And Reason For Visit No Information Reason For Referral Reason For Referral No Information History Of Present Illness Encounter Date Complaint History Of Prese nt Illness No Information Functional Status Date Functional Assessmen t No Information Instructions Date Instruction Additional Infor mation No Information Assessments Type Assessment Date No Information Patient Care Teams Name Effective Dates (start - stop) Status Members No Information
--- OUTSIDE RECORDS SUMMARY | 2025-02-05 18:04 | XMS_ITS | Continuity of Care Document ---
Author Organization [facility] Address [address] [place] [address] Insurance Providers Payer Plan Claims Address Claims Phone Policy Number Group Number Relation Employer Guarantor Name Guarantor Guarantor Address Guarantor Phone [employer] NEVAREZ [address] [address], [place] [address] tel:[phone] Self Maksim Scanlon 1955 [address] [place] [id number] [employer] MED[employer] AID [address], [place] [address] tel:[phone] Zechariah Scanlon 1955 [address] [place] [id number] [employer], [address] [address], [place] [address] tel:[phone] Zechariah Scanlon 1955 [address] [place] [id number] Problems Unknown Problems Results No Results Allergies, adverse reactions, alerts No known allergies and adverse reactions Immunizations Vaccine Route Date Status RSV 09/26/2024 Completed influenza 09/26/2024 Completed Medications No administered medications reported Vital Signs Date Vital Result Comment 09/30/2024 Inhaled Oxygen Concentration 21.0 % N Blood Sugar 215.0 mg/dl N Temperature 97 [degF] N Oxygen Saturation 99 % N Respiratory Rate 20 /min N Heart Rate 78 /min N Blood Pressure Systolic 103 mm[Hg] N Blood Pressure Diastolic 60 mm[Hg] N Body Height 66 [in_i] N 10/01/2024 Body Height 66 [in_i] N 10/18/2024 Blood Sugar 167.0 mg/dl N Body Height 66 [in_i] N 11/05/2024 Body Height 66 [in_i] N Social History No smoking Hx information available Functional Status No records included. Mental Status Category Condition Date Cognitive function Normal 09/30/2024
--- OUTSIDE RECORDS SUMMARY | 2025-02-05 18:04 | XMS_ITS | Clinical Summary ---
Author Organization [facility] Address [address] [place] [address] Phone Care Team Providers Care Drawbench Operator Helper Name Role Phone Joseph Rust MD Primary Care Provider [phone] Allergies Active Allergy Reactions Criticality Noted Date Comments Vancomycin Palpitations Low 03/06/2024 Medications albuterol sulfate HFA 90 mcg/actuation aerosol inhaler Take 2 Puffs by inhalation every 4 hours. Active losartan (COZAAR) 100 mg tablet Take 100 mg by mouth daily. 3 Active atorvastatin (LIPITOR) 80 mg tablet Take 80 mg by mouth daily at bedtime. 3 Active DULoxetine (CYMBALTA) 60 mg Capsule, Delayed Release(E.C.) Take 1 Capsule by mouth daily. 3 Active ketoconazole (NIZORAL) 2 % Cream Apply to affected area daily. 3 Active clopidogreL (PLAVIX) 75 mg Tablet Take 75 mg by mouth daily. Active nicotine (NICODERM CQ) 14 mg/24 hr patch Apply 1 Patch to skin as directed every 24 hours. Active omeprazole (PriLOSEC) 20 mg Capsule, Delayed Release(E.C.) Take 20 mg by mouth daily. Active tiotropium (SPIRIVA) 18 mcg capsule Take 18 mcg by inhalation daily. Active sildenafiL (VIAGRA) 100 mg tablet Take 100 mg by mouth 1 time daily as needed for Erectile Dysfunction. TAKE 1 TABLET BY MOUTH 30 TO 60 MINS PRIOR TO SEXUAL ACTIVITY . DO NOT TAKE MORE THAN 1 TABLET IN ANY 24 HOUR PERIOD. Active blood sugar diagnostic ([employer] Systemsuch Verio test strips) Strip Test blood sugar 3-4 times daily as directed. 100 Each 03/07/2024 11:51 AM CDT 4 Active lancets (OneTouch Delica Plus Lancet) 33 gauge Test blood sugar 3-4 times daily as directed. 100 Each 03/07/2024 11:51 AM CDT 4 Active Blood-Glucose Meter (OneTouch Verio Flex meter) Test blood sugar 3-4 times daily as directed. 1 Each 03/07/2024 11:51 AM CDT 4 Active carvediloL (COREG) 25 mg tablet Take 1 Tablet (25 mg) by mouth daily. 30 Tablet 4 Active amLODIPine (NORVASC) 5 mg tablet Take 1 Tablet (5 mg) by mouth daily. 30 Tablet 4 Active doxycycline hyclate (VIBRAMYCIN) 100 mg capsule Take 1 Capsule (100 mg) by mouth every 12 hours. 4 Capsule 4 Active insulin glargine (LANTUS) 100 unit/mL pen syringe Inject 18 Units by subcutaneous injection daily with breakfast. 15 mL 4 Active insulin lispro (HumaLOG,ADMELO G) 100 unit/mL pen syringe Inject 5 Units (Plus 0-6 units per sliding scale) by subcutaneous injection 3 times daily with meals. Sliding scale: -If Glucose is less than or equal to 180 = no additional insulin, -Glucose 181 - 200 = add 1 unit, -Glucose 201 - 250 = add 2 units, -Glucose 251 - 300 = add 3 units, -Glucose 301 - 350 = add 4 units, -Glucose 351 - 400 = add 5 units, -Glucose 401 and greater = add 6 units 15 mL 4 Active Insulin [place], Disposable, (Comfort EZ Pen [place]) 31 gauge x 5/16 Needle Use as directed to administer insulin 100 Each 4 Active Active Problems Problem Noted Date Diagnosed Date PVD (peripheral vascular disease) 03/07/2024 Shortness of breath 03/06/2024 Ventricular tachycardia 03/06/2024 COPD with exacerbation 03/06/2024 (HFpEF) heart failure with preserved ejection fr action 03/06/2024 CAD (coronary atherosclerotic disease) Benign hypertension 03/06/2024 Hyperlipidemia 03/06/2024 Mood disorder 03/06/2024 GERD (gastroesophageal reflux disease) Elevated liver enzymes 07/27/2023 Goiter 07/27/2023 Rib fractures 07/27/2023 Right lower lobe pulmonary infiltrate 07/27/2023 Cardiac arrest 07/26/2023 Acute respiratory failure with hypoxia and hyper capnia 07/26/2023 Stupor 07/26/2023 Anemia, chronic disease 07/26/2023 Type 2 diabetes mellitus wit h diabetic peripheral angiopathy without gangrene, without long-term current use of insulin 07/26/2023 SAYDA (acute kidney injury) 07/26/2023 Encounters Date Type Department Care Team Description 01/21/2025 External Device Data [facility] ABSTRACTION Provider, Abstract 01/17/2025 External Device Data [facility]STRACTION Provider, Abstract 01/15/2025 External Device Data [facility]STRACTION Provider, Abstract 01/14/2025 External Device Data [facility]STRACTION Provider, Abstract 12/10/2024 External Device Data [facility] ABSTRACTION Provider, Abstract 12/10/2024 External Device Data [facility] ABSTRACTION Provider, Abstract 12/03/2024 External Device Data [facility] ABSTRACTION Provider, Abstract 11/13/2024 External Device Data [facility] ABSTRACTION Provider, Abstract from Last 3 Months Social History Tobacco Use Types Packs/Day Years Used Date Smoking Tobacco: Every Day Cigarettes Tobacco Cessation:Ready to Q uit: Not Asked; Counseling Given: Not Answered Feeling Safe Answer Date Recorded Are you in a relationship wi th someone who hurts you emotionally and/or physically? 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 Gender Identity Not on file Sexual Orientation Not on file Last Filed Vital Signs Vital Sign Reading Time Taken Comments Blood Pressure 155/57 03/08/2024 4:30 PM CDT Pulse 70 03/08/2024 4:30 PM CDT Temperature 36.9 C (98.5 F) 03/08/2024 4:30 PM CDT Respiratory Rate 18 03/08/2024 4:30 PM CDT Oxygen Saturation 100% 03/08/2024 4:30 PM CDT Inhaled Oxygen Concentration - - Weight 71.2 kg (156 lb 14.4 oz) 03/06/2024 9:53 AM CDT Height 167.6 cm (5' 5.98) 03/06/2024 9:53 AM CD T Body Mass Index 25.34 03/06/2024 9:53 AM CDT Plan of Treatment Health Maintenance Due Date Last Done Comments DIABETES ANNUAL FOOT EXAM 1972 DIABETES MICROALBUMIN ANNUAL SCREEN 1972 LDL CHOLESTEROL ANNUAL 1972 DTAP/TDAP/TD VACCINES (1 - Tdap) 1973 COLORECTAL SCREENING 12/26/1999 Colorectal Cancer Screening 12/26/1999 FIT-DNA Q 3 years 12/26/1999 FIT/FOBT Q 1 year 12/26/1999 Flex Sig/CT Colonography Q 5 years 12/26/1999 ZOSTER VACCINE (1 of 2) 2004 RSV VACCINE (60+ or ) (1 - Risk 60-74 years 1-dose series) 2014 PNEUMOCOCCAL VACCINE 50+ YEA RS (2 of 2 - PCV) 06/14/2016 06/14/2015 DIABETES ANNUAL RETINAL EXAM 12/13/2018 12/13/2017 INFLUENZA VACCINE (#1) 2024 , 11/16/2021, 05/18/2018, Additional history exists COVID-19 Vaccine (2 - 2023-2 5 season) 2024 08/24/2021 DIABETES HBA1C Q 6 MONTHS 05/16/20252024, 06/14/2024, 05/09/2024, Additional history exists Procedures Procedure Name Priority Date/Time Associated Diagnosis Comments HEMOGLOBIN A1C Routine 07/31/2023 10:19 AM WASH WORKER from Last 3 Months or Most Recently Relevant to Health Maintenance Results * (ABNORMAL) HEMOGLOBIN A1C (07/31/2023 10:19 AM WASH WORKER) HEMOGLOBIN A1C 6.7(H) <=5.6 % 08/01/2023 12:49 AM WASH WORKER [facility] EST. AVG GLUCOSE, A1C 146 mg/dL 08/01/2023 12:49 AM WASH WORKER [facility] Blood Venipuncture / Unknown 07/31/2023 10:19 AM WASH WORKER 07/31/2023 10:32 AM WASH WORKER Narrative [facility] - 08/01/2023 12:49 AM WASH WORKER HGB A1C INTERPRETATION NORMAL: <5.7% PRE-DIABETES: 5.7 - 6.4% DIABETES: 6.5% OR GREATER Ethan Abel MD CHEMISTRY ORDERABLES Final Resu lt [facility] CLIA# [id number] [place] [address] from Last 3 Months or Most Recently Relevant to Health Maintenance [place] [address] DUAL COMPLETE PPO [facility] [id number] RX [employer] Member Subscriber Plan / Payer (Ef fective 2023-Present) Name:Maksim Scanlon Relation to Subscriber:Self Name:Maksim Scanlon Payer ID:Not on file Group ID:[id number] Type:RX Medicare Part D Address: [address] Advance Directives For more information, please contact: [phone] * Full Code (Latest Code Status on File) Date Activated Date Inactivated Comments 03/06/2024 11:27 AM 03/09/2024 2:15 AM * Full Code Date Activated Date Inactivated Comments 07/26/2023 8:17 AM 08/03/2023 7:00 PM Care Teams Drawbench Operator Helper Relationship Specialty Start Date End Date Joseph Rust MD [address] [place] [id number] PCP - General Family Practice 03/06/24
--- OUTSIDE RECORDS SUMMARY | 2025-02-05 18:17 | XMS_ITS | Continuity of Care Document ---
Author Organization [facility] Address [address] [place] [address] Phone Care Team Providers Care Inspector Watch Parts Name Role Phone Ryan Guan MD Unavailable Unavailable Advance Directives Directive Yes / No Effective Date File Name No Information Encounters Encounter Description Practice Location Reason(s) For Visit Diagnoses Date Provider Providers Copied on Encounter [facility], [address], [place], [place], [address], [place] tel:[phone] [facility] [employer] Roge Davis. [address], [place], [place], [address], [place]. tel:[phone] Family History Family Member Type Diagnosis Age At Onset No Information Payers Payer name Insurance type Covered constitution party ID Authoriza tion(s) No Information Social History [...]
[2025-02-05] MEDS: SODIUM CHLORIDE 0.9% IV 1,000 ML 999 ML IV CONT (18:50)
[2025-02-05 18:59] LABS: Basophils Percent Auto 0.4 % (0.2-1.2); Eosinophils Absolute Auto 0.1 K/mm3 (0-0.3); Eosinophils Percent Auto 2.6 % (0-4.4); Immature Granulocyte Absolute 0.01 K/mm3 (0.00-0.031); Immature Granulocyte Percent A 0.2 % (0-0.5); Lymphocytes Absolute Auto 0.92 K/mm3 (0.9-3.2); Lymphocytes Percent Auto 18.7 % (18.3-44.2); Mean Corpuscular HGB Conc 28.7 g/dl (32-36); Mean Platelet Volume 11.6 fl (7.4-10.4); Monocytes Absolute Auto 0.7 K/mm3 (0.1-0.6); Monocytes Percent Auto 14.5 % (2.6-8.5); Neutrophils Absolute Auto 3.1 K/mm3 (1.3-6.7); Neutrophils Percent Auto 63.6 % (45.5-73.1); Platelet Count Result 182 k/mm3 (150-375); Red Blood Count 2.16 M/mm3 (4.6-6.20); Red Cell Distribution Width 20.2 % (11.5-14.5); White Blood Count 4.9 K/mm3 (4.5-10.0)
[2025-02-05 19:11] LABS: Alanine Aminotransferase 13 U/L (6-50); Albumin Level 3.2 g/dL (3.5-5.1); Alkaline Phosphatase 137 U/L (38-126); Anion Gap 6 mmol/L (4-12); Aspartate Amino Transferase 24 U/L (17-59); Bilirubin,Total 0.1 mg/dL (0.2-1.3); Blood Urea Nitrogen 29 mg/dL (9-20); Calcium 8.2 mg/dL (8.4-10.2); Carbon Dioxide 27 mmol/L (22-30); Chloride 105 mmol/L (98-107); Estimated CRCL calculation 46 ml/min; Estimated Glomerular Filt Rate 60; Glucose 149 mg/dL (65-110); Potassium 4.3 mmol/L (3.4-5.0); Sodium 138 mmol/L (137-145); Total Protein 5.8 g/dL (6.3-8.2)
[2025-02-05 19:15] LABS: Hematocrit 18.8 % (42.0-52.0); Hemoglobin 5.4 g/dL (14.0-18.0)
[2025-02-05 19:28] LABS: Troponin I < 0.012 ng/mL (0.000-0.034)
[2025-02-05 19:33] LABS: INR 2.3; Prothrombin Time 24.4 Seconds (11.1-14.7)
--- NOTE | 2025-02-05 19:39 | PC.NURSE ---
This RN spoke with patient regarding need for blood transfusion and that he would need a new IV and bloodwork prior to the transfusion. Pt states he does not to be poked anymore at this time. hand upper and bottom lacer notified of pt decision. Consent not obtained at this time.
[2025-02-05 19:44] LABS: Anisocytosis 1+; Hypochromasia 1+; Platelet Estimate Adequate (Adequate); Schistocytes None Seen
[2025-02-05 20:54] LABS: Add Urine Microscopic? NO; Appearance Urine Clear (Clear); Bilirubin Urine Negative (Negative); Blood Urine Negative (Negative); Color Urine Yellow (Yellow); Glucose Urine UA 3+ mg/dL (Negative); Ketones Urine Negative (Negative); Leukocyte Esterase Ur Negative LEU/UL (Negative); Nitrate Urine Negative (Negative); Protein Urine Negative (Negative); Specific Grav Ur 1.021 (1.001-1.035); Urobilinogen Urine 0.2 mg/dL (<2.0)
[2025-02-05 21:22] LABS: Amphetamine Screen Urine Negative (Negative); Barbiturate Screen Urine Negative (Negative); Benzodiazepines Screen Urine Negative (Negative); Cannabinoid Screen Urine Negative (Negative); Cocaine Screen Urine Negative (Negative); Methadone Screen Urine Negative (Negative); Opiate Screen Urine Negative (Negative); Phencyclidine Screen Urine Negative (Negative)
[2025-02-05 22:27] VITALS: BP 151/62; PULSE 78; RESP 15; TEMP 36.7; O2SAT 96
[2025-02-05 22:47] VITALS: BP 158/58; PULSE 82; PULSE 85; RESP 16; RESP 26; TEMP 36.8; O2SAT 100
[2025-02-05 23:00] VITALS: BP 143/93; PULSE 80; RESP 16; TEMP 36.6; O2SAT 98
--- NOTE | 2025-02-05 23:09 | PC.NURSE ---
Received report from ALISON Francisco for cont. of care. Pt lying on stretcher, respirations even and unlabored. Pt complaining of lower back pain, pt repositioned. Refer to MAR for medication administration.
[2025-02-05 23:10] LABS: Iron 29 ug/dL (49-181); Percent Iron Saturation 8 % (20-50)
[2025-02-05] MEDS: HYDROcodone/acetaminophen (*CRX) 5-325 MG TABLET 1 TAB PO (23:42)
[2025-02-06] VITALS (16 sets, daily range): BP systolic 143–179; BP diastolic 55–77; PULSE 66–88; RESP 16–20; TEMP 36.1–37; O2SAT 95–100; BMI 26.8
[2025-02-06 00:31] LABS: Folic Acid 11.1 ng/mL (2.76->20)
--- NOTE | 2025-02-06 00:31 | ADMGEN ---
This patient, Maksim Scanlon, was admitted to Medical Room 342-01. Patient/family oriented to hospital policies and general routines including ID bracelet, bed and alarms, visiting hours, pain management, procedures, bathroom and other care routines, personal items, smoking policy, room service/diet, and visiting hours. Information on how to activate the Rapid Response Team has been discussed. Patient/Family are encouraged to report perceived risks to care and to ask questions if they do not understand what they are told or what they should do.
[2025-02-06 03:21] LABS: Glucose Point of Care 229 mg/dl (65-105)
[2025-02-06] MEDS: IRON SUCROSE COMPLEX 200 MG in SODIUM CHLORIDE 0.9% IV 100 ML 220 MG IVPB (05:32)
[2025-02-06 06:54] LABS: Hematocrit 21.8 % (42.0-52.0); Mean Corpuscular HGB Conc 29.8 g/dl (32-36); Mean Corpuscular Hemoglobin 25.6 pg (26-34); Mean Corpuscular Volume 85.8 fl (80-100); Mean Platelet Volume 11.7 fl (7.4-10.4); Platelet Count Result 173 k/mm3 (150-375); Red Blood Count 2.54 M/mm3 (4.6-6.20); Red Cell Distribution Width 18.6 % (11.5-14.5); White Blood Count 5.1 K/mm3 (4.5-10.0)
[2025-02-06 06:59] LABS: Hemoglobin 6.5 g/dL (14.0-18.0)
[2025-02-06 07:06] LABS: Anion Gap 6 mmol/L (4-12); Blood Urea Nitrogen 23 mg/dL (9-20); Calcium 8.2 mg/dL (8.4-10.2); Carbon Dioxide 25 mmol/L (22-30); Chloride 105 mmol/L (98-107); Estimated CRCL calculation 63 ml/min; Estimated Glomerular Filt Rate > 60; Glucose 222 mg/dL (65-110); Sodium 136 mmol/L (137-145)
[2025-02-06] MEDS: DOCUSATE SODIUM 100 MG CAPSULE PO ×2 (08:32→16:48)
[2025-02-06] MEDS: SODIUM CHLORIDE 0.9% IV 250 ML 30 ML IV CONT (09:27)
[2025-02-06 11:59] LABS: Glucose Point of Care 182 mg/dl (65-105)
--- NOTE | 2025-02-06 14:05 | P.HP_ITS ---
H&P: HPI History of Present Illness Date/Time: 02/06/25 1133 Chief Complaint: Weakness, low hgb Per ED provider: Patient is 69-year-old male who presents to the ER with complaints of difficulty speaking, tremors, and weakness. He reports his symptoms have been going on for approximately 1 week. Patient reports he had back surgery about 7 weeks ago and has been living ever care for rehabilitation. He denies any pain at this time. Patient endorses a history AFib, COPD, diabetes, high blood pressure, recent laminectomy, and is on blood thinners. He denies any recent fevers, new medications, or nausea/vomiting. 02/06: Pt drowsy and resting in bed at time of my visit. Pt wakes to verbal stimuli. Pt denies any acute sx other than weakness but reports that it is better. Pt has received x2 units of PRBC so far, awaiting repeat hgb level. We talked thoroughly about his medical hx and CVA deficits. He reports that he ambulates normally at home with a walker. Pt reports having a laminectomy x7 weeks ago and currently resides at [facility]. Plans to go back to this [place], PT/OT placed today incase needing to go elsewhere. Review of Systems Review of Systems: All systems reviewed & are unremarkable except as noted in HPI and below PMFSH Past Medical History Medical History (Updated 02/06/25 @ 14:11 by Elaine Moreno APRN) CVA, old, monoplegia upper limb HTN (hypertension) Atrial fibrillation COPD (chronic obstructive pulmonary disease) Diabetes Family History Family History (Updated 02/06/25 @ 00:37 by Rola Amaro RN) Other Unknown family medical history Social History Social History Smoking status: Current every day smoker Tobacco type: cigarettes Alcohol intake: former Substance use: former Do You Feel Safe in your Home?: Yes Lack of Transportation: No Lack of Food: Never True Current Housing: I Have Housing Concerned About Future Housing: No Difficulty Paying Gas/Electric Bills: No Difficulty Paying for Meds: No Currently Unemployed: No Education: Trade/Vocational Certificate Difficulty w/ Childcare or Family Care: No Spiritual care concerns: No Meds Home Medications and Allergies Home Medications ?Medication ?Instructions ?Recorded ?Confirmed ?Type albuterol sulfate 90 mcg/actuation 2 puff inhalation Q6H PRN 02/05/25 02/06/25 History aerosol inhaler shortness of breath or wheezing amlodipine 5 mg tablet 5 mg PO DAILY 02/05/25 02/06/25 History atorvastatin 80 mg tablet 80 mg PO QPM 02/05/25 02/06/25 History budesonide-formoterol HFA 160 2 puff inhalation Q12H PRN 02/05/25 02/06/25 History mcg-4.5 mcg/actuation aerosol shortness of breath or wheezing inhaler (Symbicort) carvedilol 25 mg tablet 25 mg PO Q12H 02/05/25 02/06/25 History clopidogrel 75 mg tablet 75 mg PO DAILY 02/05/25 02/06/25 History duloxetine 60 mg capsule,delayed 60 mg PO DAILY 02/05/25 02/06/25 History release insulin glargine 100 unit/mL (3 10 unit subcut QPM 02/05/25 02/06/25 History mL) subcutaneous pen (Lantus Solostar U-100 Insulin) insulin lispro 100 unit/mL 4 unit subcut .before meals 02/05/25 02/06/25 History subcutaneous pen lactulose 10 gram/15 mL oral 30 ml PO DAILY 02/05/25 02/06/25 History solution losartan 100 mg tablet 100 mg PO DAILY 02/05/25 02/06/25 History omeprazole 20 mg capsule,delayed 20 mg PO DAILY 02/05/25 02/06/25 History release oxycodone 5 mg tablet 10 mg PO Q6H PRN pain 02/05/25 02/06/25 History acetaminophen 325 mg capsule 650 mg PO Q6H PRN fever or pain 02/06/25 02/06/25 History carboxymethylcellulose sodium 0.5 1 drp EACH EYE Q4H 02/06/25 02/06/25 History % eye drops in a dropperette dabigatran etexilate 150 mg capsule 150 mg PO BID 02/06/25 02/06/25 History dapagliflozin propanediol 5 mg 5 mg PO DAILY 02/06/25 02/06/25 History tablet (Farxiga) ferrous sulfate 324 mg (65 mg 324 mg PO DAILY 02/06/25 02/06/25 History iron) tablet,delayed release fluticasone 250 mcg-salmeterol 50 1 inh inhalation ONCE 02/06/25 02/06/25 History mcg/dose blistr powdr for inhalation hydroxyzine HCl 25 mg tablet 25 mg PO DAILY 02/06/25 02/06/25 History methocarbamol 750 mg tablet 750 mg PO Q6H 02/06/25 02/06/25 History multivitamin with iron 1 tablet PO DAILY 02/06/25 02/06/25 History nicotine 14 mg/24 hr daily 1 patch transdermal DAILY 02/06/25 02/06/25 History transdermal patch polyethylene glycol 3350 17 17 g PO DAILY 02/06/25 02/06/25 History gram/dose oral powder (Miralax) pregabalin 200 mg capsule (Lyrica) 200 mg PO BID 02/06/25 02/06/25 History sennosides 8.6 mg-docusate sodium 1 tab-cap PO BID 02/06/25 02/06/25 History 50 mg tablet (Stimulant Laxative Plus) umeclidinium 62.5 mcg/actuation 1 inh inhalation Q24H 02/06/25 02/06/25 History blister powder for inhalation (Incruse Ellipta) Allergies Allergy/AdvReac Type Severity Reaction Status Date / Time metformin Allergy Unknown Verified 02/06/25 02:02 vancomycin Allergy Unknown Verified 02/06/25 02:02 Vital Signs Vital Signs - 24 hr 02/05/25 16:10 02/05/25 17:16 02/05/25 22:27 Temperature 98 F 98.0 F Pulse Rate 71 68 78 Respiratory Rate 16 16 15 Blood Pressure 116/64 123/56 L 151/62 H Pulse Oximetry 100 100 96 Oxygen Delivery Room Air Room Air 02/05/25 22:47 02/05/25 22:47 02/05/25 23:00 Temperature 98.3 F 98.3 F 98 F Pulse Rate 85 82 80 Respiratory Rate 16 26 H 16 Blood Pressure 158/58 H 158/58 H 143/93 H Pulse Oximetry 100 100 98 Oxygen Delivery 02/06/25 01:20 02/06/25 04:00 02/06/25 04:31 Temperature 98 F 97.8 F Pulse Rate 73 83 76 Respiratory Rate 16 18 Blood Pressure 143/55 H 157/57 H Pulse Oximetry 95 100 Oxygen Delivery 02/06/25 08:00 02/06/25 08:00 02/06/25 08:00 Temperature 97.0 F L Pulse Rate 84 72 Respiratory Rate 16 Blood Pressure 156/65 H Pulse Oximetry 100 Oxygen Delivery Room Air 02/06/25 09:36 02/06/25 09:55 02/06/25 10:55 Temperature 98.3 F 98.4 F 98.2 F Pulse Rate 78 66 74 Respiratory Rate 18 17 18 Blood Pressure 149/66 H 152/57 H 154/62 H Pulse Oximetry 100 100 99 Oxygen Delivery 02/06/25 11:51 02/06/25 11:55 02/06/25 12:00 Temperature 97.5 F L 98.2 F Pulse Rate 73 85 70 Respiratory Rate 20 18 Blood Pressure 157/64 H 173/70 H Pulse Oximetry 100 100 Oxygen Delivery 02/06/25 12:55 Temperature 98.2 F Pulse Rate 76 Respiratory Rate 18 Blood Pressure 179/77 H Pulse Oximetry 97 Oxygen Delivery Exam Const: General: comfortable and no acute distress Other: Pt sleeping in bed, arousable to verbal stimuli HENMT: Face/Nose/Sinus: Normal nares present Mouth: Yes moist mucous membranes Eyes: General: appearance normal, both eyes and all related structures Sclera: sclerae normal Neck: Neck: supple and no JVD Carotids: no bruits Resp: Effort & Inspection: normal respiratory effort Auscultation: clear to auscultation bilaterally Cardio: Rate: regular rate Rhythm: regular rhythm GI: Inspection: non-distended GI Palp: Yes Soft to palpation and No Tenderness to palpation present (GI) Auscultation: normal bowel sounds Skin: General skin exam: normal color and no rashes or lesions noted Wounds: no wounds Neuro: Other: Garbled speech, mild L facial droop, LUE and hand contracted with minimal to no movement of LUE. Hand with 2/5 strength, RUE tremulous (ALL BASELINE) Extrem: Other: LUE an hand contracture Psych: Mental Status: mental status grossly normal Affect: normal affect H&P: Results Labs Labs: Short CBC 02/05/25 02/06/25 Range/Units 18:48 06:45 WBC 4.9 5.1 (4.5-10.0) K/mm3 Hgb 5.4 L* 6.5 L* (14.0-18.0) g/dL Hct 18.8 L* 21.8 L (42.0-52.0) % Plt Count 182 173 (150-375) k/mm3 BMP 02/05/25 02/06/25 18:48 06:45 Sodium 138 136 L Potassium 4.3 4.0 Chloride 105 105 Carbon Dioxide 27 25 BUN 29 H 23 H Creatinine 1.20 0.86 Glucose 149 H 222 H Calcium 8.2 L 8.2 L Cardiac Enzymes 02/05/25 Range/Units 18:48 Troponin I < 0.012 (0.000-0.034) ng/mL Liver Function 02/05/25 Range/Units 18:48 Total Bilirubin 0.1 L (0.2-1.3) mg/dL AST 24 (17-59) U/L ALT 13 (6-50) U/L Alkaline Phosphatase 137 H (38-126) U/L Albumin 3.2 L (3.5-5.1) g/dL Urine 02/05/25 Range/Units 20:35 Urine Color Yellow (Yellow) Urine Appearance Clear (Clear) Urine pH 6.0 (5.0-9.0) Ur Specific [place] 1.021 (1.001-1.035) Urine Protein Negative (Negative) mg/dL Urine Glucose (UA) 3+ H (Negative) mg/dL Assessment and Plan Assessment and plan (1) Low hemoglobin: Code(s): D64.9 - Anemia, unspecified Status: Acute Assessment and Plan: Came to the ED for weakness. Pt reports hx of anemia but never having to get a blood transfusion. -Hgb 5.4 in the ED, 1 unit PRBC given -Repeat hgb 6/12 AM 6.5, additional 1 unit PRBCs given while inpt, awaiting repeat hgb lab (2) Anemia: Code(s): D64.9 - Anemia, unspecified Status: Acute Assessment and Plan: See above (3) Diabetes: Code(s): E11.9 - Type 2 diabetes mellitus without complications Status: Acute Assessment and Plan: AccuChecks ACHS, sliding scale, and hypoglycemic order sets placed -Restarted home oral meds (4) COPD (chronic obstructive pulmonary disease): Code(s): J44.9 - Chronic obstructive pulmonary disease, unspecified Status: Acute Assessment and Plan: Continue home inhalers, denies issues breathing (5) Atrial fibrillation: Code(s): I48.91 - Unspecified atrial fibrillation Status: Acute Assessment and Plan: Restarted home Plavix NSR via EKG in ED, continue to monitor (6) HTN (hypertension): Code(s): I10 - Essential (primary) hypertension Status: Acute Assessment and Plan: Restarted home meds: -Amlodipine 5mg -Coreg 25mg -Losartan 100mg (7) CVA, old, monoplegia upper limb: Status: Acute Assessment and Plan: Restarted home Plavix LUE weakness, L facial droop, and slurred speech at baseline Quality VTE Prophylaxis VTE prophylaxis: mechanical ordered Hospitalist MIPS Advance Care Plan I have confirmed that the patient's Advanced Care Plan is present, code status is documented, or surrogate decision maker is listed in patient medical record.: Yes Medication Reconciliation I have utilized all available resources to obtain, update and review the patients current medications (includes all prescriptions, OTC, herbals, cannabis, and nutritional supplements).: No The patient is not eligible for med reconciliation; the patient is in a emergent medical situation where delaying treatment would jeopardize the patients health. : No
[2025-02-06 15:28] LABS: Hemoglobin 8.9 g/dL (14.0-18.0); Mean Corpuscular HGB Conc 30.7 g/dl (32-36); Mean Corpuscular Hemoglobin 26.2 pg (26-34); Mean Corpuscular Volume 85.3 fl (80-100); Mean Platelet Volume 11.1 fl (7.4-10.4); Platelet Count Result 188 k/mm3 (150-375); Red Cell Distribution Width 17.7 % (11.5-14.5)
[2025-02-06 16:16] LABS: Glucose Point of Care 176 mg/dl (65-105)
[2025-02-06] MEDS: ATORVASTATIN 40 MG TABLET 80 MG PO (16:47)
[2025-02-06] MEDS: PREGABALIN (*CRX) 50 MG CAPSULE 200 MG PO (16:47)
[2025-02-06] MEDS: ARTIFICIAL TEARS OPHTH SOLN 15 ML BOTTLE 1 DROP EACH EYE ×2 (16:48→20:19)
[2025-02-06] MEDS: NICOTINE (*PBKC) 14 MG PATCH 1 PATCH TRANSDERM (16:48)
[2025-02-06] MEDS: SENNA/DOCUSATE SODIUM TABLET 1 TAB PO (16:48)
[2025-02-06] MEDS: methocarbamoL 750 MG TABLET PO ×2 (16:48→23:34)
[2025-02-06] MEDS: ACETAMINOPHEN 325 MG TABLET 650 MG PO (16:53)
[2025-02-06] MEDS: DABIGATRAN ETEXILATE 150 MG CAPSULE PO (17:27)
[2025-02-06] MEDS: oxyCODONE HCL (*CRX) 5 MG TAB IR 10 MG PO (18:57)
[2025-02-06] MEDS: carvediloL 25 MG TABLET PO (20:20)
[2025-02-06 21:01] LABS: Glucose Point of Care 180 mg/dl (65-105)
[2025-02-07] VITALS (15 sets, daily range): BP systolic 119–155; BP diastolic 54–88; PULSE 61–86; RESP 16–20; TEMP 35.6–36.9; O2SAT 95–100
[2025-02-07] MEDS: oxyCODONE HCL (*CRX) 5 MG TAB IR 10 MG PO ×4 (00:42→21:57)
[2025-02-07] MEDS: ARTIFICIAL TEARS OPHTH SOLN 15 ML BOTTLE 1 DROP EACH EYE ×5 (05:28→20:54)
[2025-02-07 06:04] LABS: Basophils Percent Auto 0.6 % (0.2-1.2); Eosinophils Absolute Auto 0.1 K/mm3 (0-0.3); Eosinophils Percent Auto 2.7 % (0-4.4); Hematocrit 28.1 % (42.0-52.0); Hemoglobin 8.5 g/dL (14.0-18.0); Immature Granulocyte Absolute 0.02 K/mm3 (0.00-0.031); Immature Granulocyte Percent A 0.4 % (0-0.5); Lymphocytes Absolute Auto 0.87 K/mm3 (0.9-3.2); Lymphocytes Percent Auto 17.9 % (18.3-44.2); Mean Corpuscular HGB Conc 30.2 g/dl (32-36); Mean Corpuscular Hemoglobin 26.3 pg (26-34); Monocytes Absolute Auto 0.7 K/mm3 (0.1-0.6); Monocytes Percent Auto 14.4 % (2.6-8.5); Neutrophils Absolute Auto 3.1 K/mm3 (1.3-6.7); Nucleated Red Blood Cells Perc 0.4 % (0.0-0.2); Platelet Count Result 191 k/mm3 (150-375); Red Blood Count 3.23 M/mm3 (4.6-6.20); Red Cell Distribution Width 17.7 % (11.5-14.5); White Blood Count 4.9 K/mm3 (4.5-10.0)
[2025-02-07 06:29] LABS: Alanine Aminotransferase 13 U/L (6-50); Albumin Level 3.3 g/dL (3.5-5.1); Alkaline Phosphatase 138 U/L (38-126); Anion Gap 6 mmol/L (4-12); Aspartate Amino Transferase 26 U/L (17-59); Bilirubin,Total 0.4 mg/dL (0.2-1.3); Blood Urea Nitrogen 15 mg/dL (9-20); Calcium 8.8 mg/dL (8.4-10.2); Carbon Dioxide 26 mmol/L (22-30); Chloride 106 mmol/L (98-107); Estimated CRCL calculation 65 ml/min; Estimated Glomerular Filt Rate > 60; Glucose 169 mg/dL (65-110); Potassium 3.8 mmol/L (3.4-5.0); Sodium 138 mmol/L (137-145); Total Protein 6.1 g/dL (6.3-8.2)
[2025-02-07 08:06] LABS: Glucose Point of Care 183 mg/dl (65-105)
[2025-02-07] MEDS: FLUTICASONE/SALMETEROL 115-21 MCG INHALER 1 PUFF 2 PUFF INHALATION ×2 (08:35→20:10)
[2025-02-07] MEDS: UMECLIDINIUM BROMIDE 62.5 MCG ELLIPTA 1 PUFF INHALATION (08:37)
--- NOTE | 2025-02-07 08:58 | P.PNIM_ITS ---
Progress Note: A&P Assessment and Plan (1) Low hemoglobin: Code(s): D64.9 - Anemia, unspecified Status: Acute Assessment and Plan: Came to the ED for weakness. Pt reports hx of anemia but never having to get a blood transfusion. -Hgb 5.4 in the ED, 1 unit PRBC given -Repeat hgb 02/06 AM 6.5, additional 1 unit PRBCs given while inpt, repeat hgb 8.9 02/07: -H/H 02/07 AM 8.5/28.1 -Consulting GI today for potential causes -->Per GI: EGD and cscope on 02/10 due to Plavix to further investigate (2) Anemia: Code(s): D64.9 - Anemia, unspecified Status: Acute Assessment and Plan: See above (3) Diabetes: Code(s): E11.9 - Type 2 diabetes mellitus without complications Status: Acute Assessment and Plan: AccuChecks ACHS, sliding scale, and hypoglycemic order sets placed -Restarted home oral meds -Pt usually takes lispro 4units pre prandial & 10 Lantus PM -Will continue to monitor labs and POC sugars 02/07: -Increased sliding scale to moderate dosing and started pt on 8units of lantus for PM (normally takes 10units at home) due to pt elevated fasting and Pre prandial readings. -Ordered A1c today, pending (4) COPD (chronic obstructive pulmonary disease): Code(s): J44.9 - Chronic obstructive pulmonary disease, unspecified Status: Acute Assessment and Plan: Continue home inhalers, denies issues breathing (5) Atrial fibrillation: Code(s): I48.91 - Unspecified atrial fibrillation Status: Acute Assessment and Plan: 02/07: Plavix and Pradexa held today for GI consult / work-up NSR via EKG in ED, continue to monitor (6) HTN (hypertension): Code(s): I10 - Essential (primary) hypertension Status: Acute Assessment and Plan: Restarted home meds: -Amlodipine 5mg -Coreg 25mg -Losartan 100mg (7) CVA, old, monoplegia upper limb: Status: Acute Assessment and Plan: Plavix and Pradexa held today for GI consult / work-up LUE weakness, L facial droop, and slurred speech at baseline Plan Continue to trend AM labs, plan for EGD and cscope 02/10 Subjective Date/time seen: 02/07/25 1405 Interval history: Per ED provider: Patient is 69-year-old male who presents to the ER with complaints of difficulty speaking, tremors, and weakness. He reports his symptoms have been going on for approximately 1 week. Patient reports he had back surgery about 7 weeks ago and has been living ever care for rehabilitation. He denies any pain at this time. Patient endorses a history AFib, COPD, diabetes, high blood pressure, recent laminectomy, and is on blood thinners. He denies any recent fevers, new medications, or nausea/vomiting. 02/06: Pt drowsy and resting in bed at time of my visit. Pt wakes to verbal stimuli. Pt denies any acute sx other than weakness but reports that it is better. Pt has received x2 units of PRBC so far, awaiting repeat hgb level. We talked thoroughly about his medical hx and CVA deficits. He reports that he ambulates normally at home with a walker. Pt reports having a laminectomy x7 weeks ago and currently resides at [facility]. Plans to go back to this [place], PT/OT placed today incase needing to go elsewhere. 02/07: Pt up and in the chair today looking much better today, engaging more in conversation. Pt states that he was feeling unwell yesterday and today he is feeling much better. He does report to me that he has been having black stools at home x 1 week with progressive weakness. I updated him that these could be sx of blood loss. I did update him on the plan for GI consult with their plan being EGD and cscope, pt agreeable with plan and is encouraged that we will potentially have an answer for his low hgb. Plan to continue with therapy and daily lab draws. Review of Systems Review of Systems: All systems reviewed & are unremarkable except as noted in HPI and below Exam Const: General: comfortable and no acute distress Other: Pt sitting up in chair today HENMT: Face/Nose/Sinus: Normal nares present Mouth: Yes moist mucous membranes Eyes: General: appearance normal, both eyes and all related structures Sclera: sclerae normal Neck: Neck: supple and no JVD Carotids: no bruits Resp: Effort & Inspection: normal respiratory effort Auscultation: clear to auscultation bilaterally Cardio: Rate: regular rate Rhythm: regular rhythm GI: Inspection: non-distended Auscultation: normal bowel sounds Skin: General skin exam: normal color and no rashes or lesions noted Wounds: no wounds Neuro: Other: Pt more awake today. Garbled speech, mild L facial droop, LUE and hand contracted with minimal to no movement of LUE. Hand with 2/5 strength, RUE tremulous (ALL BASELINE) Extrem: Other: LUE an hand contracture Psych: Mental Status: mental status grossly normal Affect: normal affect Objective Data Vital Signs Vital Signs: Vital Signs - 24 hr 02/06/25 09:36 02/06/25 09:55 02/06/25 10:55 Temperature 98.3 F 98.4 F 98.2 F Pulse Rate 78 66 74 Respiratory Rate 18 17 18 Blood Pressure 149/66 H 152/57 H 154/62 H Pulse Oximetry 100 100 99 Oxygen Delivery 02/06/25 11:51 02/06/25 11:55 02/06/25 12:00 Temperature 97.5 F L 98.2 F Pulse Rate 73 85 70 Respiratory Rate 20 18 Blood Pressure 157/64 H 173/70 H Pulse Oximetry 100 100 Oxygen Delivery 02/06/25 12:55 02/06/25 15:51 02/06/25 16:00 Temperature 98.2 F 97.5 F L Pulse Rate 76 69 88 Respiratory Rate 18 18 Blood Pressure 179/77 H 157/61 H Pulse Oximetry 97 97 Oxygen Delivery 02/06/25 19:58 02/06/25 20:00 02/06/25 20:00 Temperature 98.6 F Pulse Rate 72 73 Respiratory Rate 18 Blood Pressure 155/66 H Pulse Oximetry 100 Oxygen Delivery Room Air 02/06/25 20:20 02/07/25 00:00 02/07/25 00:00 Temperature 98.4 F Pulse Rate 83 65 65 Respiratory Rate 18 Blood Pressure 152/68 H Pulse Oximetry 100 Oxygen Delivery 02/07/25 04:00 02/07/25 04:29 02/07/25 08:00 Temperature 98.4 F 98 F Pulse Rate 61 64 72 Respiratory Rate 16 16 Blood Pressure 154/73 H 145/88 H Pulse Oximetry 99 99 Oxygen Delivery 02/07/25 08:39 02/07/25 08:40 Temperature Pulse Rate 72 Respiratory Rate 20 Blood Pressure Pulse Oximetry 99 Oxygen Delivery Room Air Intake/Output Intake/Output: Intake & Output 02/04/25 02/05/25 02/06/25 02/07/25 23:59 23:59 23:59 23:59 Intake Total 1000 2078 500 Output Total 3700 1050 Balance 5510 -4049 -826 Meds/Results Medications: Active Medications Generic Name Dose Route Start Last Admin Trade Name Freq PRN Reason Stop Dose Admin Acetaminophen 650 mg 02/06/25 14:02 02/06/25 16:53 Acetaminophen 325 Mg Tablet PO 650 mg Q6H PRN Administration fever or pain 1-3 Albuterol 2 puff 02/06/25 14:02 Albuterol Sulfate (*Sp) Aerosol 1 Puff INHALATION Q6HRT PRN shortness of breath or wheezin Amlodipine Besylate 5 mg 02/07/25 09:00 Amlodipine Besylate 5 Mg Tablet PO DAILY [facility] Artificial Tears 1 drop 02/06/25 17:00 02/07/25 06:09 Artificial Tears Ophth Soln 15 Ml Bottle EACH EYE Not Given Q4H [facility] Atorvastatin Calcium 80 mg 02/06/25 18:00 02/06/25 16:47 Atorvastatin 40 Mg Tablet PO 80 mg QPM LAKSHMI Administration Carvedilol 25 mg 02/06/25 21:00 02/06/25 20:20 Carvedilol 25 Mg Tablet PO 25 mg Q12HR LAKSHMI Administration Clopidogrel Bisulfate 75 mg 02/07/25 09:00 Clopidogrel Bisulfate 75 Mg Tablet PO DAILY [facility] Dabigatran 150 mg 02/06/25 17:00 02/06/25 17:27 Dabigatran Etexilate 150 Mg Capsule PO 150 mg BID LAKSHMI Administration Dextrose 12.5 gm 02/06/25 11:33 Dextrose 50% 25 Gm/50 Ml Syringe IV PUSH PRN PRN Hypoglycemia Protocol Docusate Sodium 100 mg 02/06/25 09:00 02/06/25 16:48 Docusate Sodium 100 Mg Capsule PO 100 mg BID LAKSHMI Administration Duloxetine HCl 60 mg 02/07/25 09:00 Duloxetine Hcl 60 Mg Capsule.Dr PO DAILY LAKSHMI Empagliflozin 10 mg 02/07/25 09:00 Empagliflozin 10 Mg Tablet BY MOUTH DAILY [facility] Ferrous Sulfate 325 mg 02/07/25 12:00 Ferrous Sulfate [address] BY MOUTH DAILY@1200 [facility] Glucagon 1 mg 02/06/25 11:33 Glucagon For Inj 1 Mg Vial IM PRN PRN Hypoglycemia Protocol Glucose 15 gm 02/06/25 11:33 Glucose Oral Gel 15 Gm Of Glucse In 37.5 Gm Tube PO PRN PRN Hypoglycemia Protocol Hydroxyzine HCl 25 mg 02/07/25 09:00 Hydroxyzine Hcl 25 Mg Tablet PO DAILY [facility] Dextrose 1,000 mls @ 100 mls/hr 02/06/25 11:33 Dextrose 5% 1,000 Ml IVPB PRN PRN Hypoglycemia Protocol Insulin Aspart 2 - 5 units 02/06/25 12:00 02/07/25 08:15 Insulin Aspart (*Bkc) 100 Units/Ml SUB-Q Not Given TIDWM [facility] Protocol Lactulose 20 gm 02/07/25 09:00 Lactulose 20 Gm/30 Ml Udc PO DAILY [facility] Losartan Potassium 100 mg 02/07/25 09:00 Losartan Potassium 100 Mg Tablet PO DAILY [facility] Methocarbamol 750 mg 02/07/25 05:40 Methocarbamol 750 Mg Tablet PO Q6H PRN Muscle Spasm Multivitamins/Calcium 1 tablet 02/07/25 09:00 Therapeutic Multivitamins/Minerals Tab (*Bkc) PO DAILY [facility] Nicotine 1 patch 02/06/25 14:15 02/06/25 16:48 Nicotine (*Pbkc) 14 Mg Patch TRANSDERM 1 patch DAILY [facility] Administration Ondansetron HCl 4 mg 02/06/25 07:27 Ondansetron Inj 4 Mg/2 Ml Vial IV PUSH Q6H PRN Nausea And Vomiting Oxycodone HCl 10 mg 02/06/25 18:31 02/07/25 06:58 Oxycodone Hcl (*Crx) 5 Mg Tab Ir PO 10 mg Q6H PRN Administration Pain Rated 6 or Greater Pantoprazole Sodium 40 mg 02/07/25 09:00 Pantoprazole 40 Mg Tablet PO QAM [facility] Polyethylene Glycol 17 gm 02/07/25 09:00 Polyethylene Glycol 3350 17 Gm Powd.Pack PO DAILY [facility] Pregabalin 200 mg 02/06/25 17:00 02/06/25 16:47 Pregabalin (*Crx) 50 Mg Capsule PO 200 mg BID [facility] Administration Fluticasone/Salmeterol 2 puff 02/06/25 20:00 02/07/25 05:36 Fluticasone/Salmeterol 115-21 Mcg Inhaler 1 Puff INHALATION Not Given Q12HRT [facility]AKSHMI Senna/Docusate Sodium 1 tab 02/06/25 17:00 02/06/25 16:48 Senna/Docusate Sodium Tablet PO 1 tab BID [facility] Administration Umeclidinium [place] 1 puff 02/07/25 08:00 02/07/25 08:37 Umeclidinium [place] 62.5 Mcg Ellipta INHALATION 1 puff DAILYRT LAKSHMI Administration Radiology Results: ITS Impressions Head CT 02/05/25 17:45 IMPRESSION: No acute intracranial findings. Chest X-Ray 02/05/25 17:58 IMPRESSION: No acute cardiopulmonary pathology. Labs Labs: Laboratory Results - last 24 hr 02/05/25 02/06/25 02/06/25 20:35 11:56 15:22 WBC 6.0 RBC 3.40 L Hgb 8.9 L Hct 29.0 L MCV 85.3 MCH 26.2 MCHC 30.7 L RDW 17.7 H Plt Count 188 MPV 11.1 H Immature Gran % (Auto) Neut % (Auto) Lymph % (Auto) [place] % (Auto) Eos % (Auto) Baso % (Auto) Lymph # (Auto) [place] # (Auto) Eos # (Auto) Baso # (Auto) Abs Immat Gran (auto) Absolute Neuts (auto) Absolute Nucleated RBC Nucleated RBC % Sodium Potassium Chloride Carbon Dioxide Anion Gap BUN Creatinine Estim Creat Clear Calc Estimated GFR Glucose POC Capillary Glucose 182 H Calcium Total Bilirubin AST ALT Alkaline Phosphatase Total Protein Albumin Blood Type O Positive Antibody Screen Negative Crossmatch See Detail 02/06/25 02/06/25 02/07/25 16:07 20:02 05:14 WBC 4.9 RBC 3.23 L Hgb 8.5 L Hct 28.1 L MCV 87.0 MCH 26.3 MCHC 30.2 L RDW 17.7 H Plt Count 191 MPV 12.0 H Immature Gran % (Auto) 0.4 Neut % (Auto) 64.0 Lymph % (Auto) 17.9 L [place] % (Auto) 14.4 H Eos % (Auto) 2.7 Baso % (Auto) 0.6 Lymph # (Auto) 0.87 L [place] # (Auto) 0.7 H Eos # (Auto) 0.1 Baso # (Auto) 0.0 Abs Immat Gran (auto) 0.02 Absolute Neuts (auto) 3.1 Absolute Nucleated RBC 0.020 H Nucleated RBC % 0.4 H Sodium 138 Potassium 3.8 Chloride 106 Carbon Dioxide 26 Anion Gap 6 BUN 15 D Creatinine 0.84 Estim Creat Clear Calc 65 Estimated GFR > 60 Glucose 169 H POC Capillary Glucose 176 H 180 H Calcium 8.8 Total Bilirubin 0.4 AST 26 ALT 13 Alkaline Phosphatase 138 H Total Protein 6.1 L Albumin 3.3 L Blood Type Antibody Screen Crossmatch 02/07/25 08:02 WBC RBC Hgb Hct MCV MCH MCHC RDW Plt Count MPV Immature Gran % (Auto) Neut % (Auto) Lymph % (Auto) [place] % (Auto) Eos % (Auto) Baso % (Auto) Lymph # (Auto) [place] # (Auto) Eos # (Auto) Baso # (Auto) Abs Immat Gran (auto) Absolute Neuts (auto) Absolute Nucleated RBC Nucleated RBC % Sodium Potassium Chloride Carbon Dioxide Anion Gap BUN Creatinine Estim Creat Clear Calc Estimated GFR Glucose POC Capillary Glucose 183 H Calcium Total Bilirubin AST ALT Alkaline Phosphatase Total Protein Albumin Blood Type Antibody Screen Crossmatch Quality VTE Prophylaxis VTE prophylaxis: mechanical ordered
[2025-02-07] MEDS: polyethylene glycoL 3350 17 GM POWD.PACK PO (09:02)
[2025-02-07] MEDS: NICOTINE (*PBKC) 14 MG PATCH 1 PATCH TRANSDERM (09:02)
[2025-02-07] MEDS: PREGABALIN (*CRX) 50 MG CAPSULE 200 MG PO ×2 (09:03→17:09)
[2025-02-07] MEDS: carvediloL 25 MG TABLET PO ×2 (09:03→20:54)
[2025-02-07] MEDS: THERAPEUTIC MULTIVITAMINS/MINERALS TAB (*BKC) 1 TABLET PO (09:03)
[2025-02-07] MEDS: LACTULOSE 20 GM/30 ML UDC PO (09:03)
[2025-02-07] MEDS: hydrOXYzine HCL 25 MG TABLET PO (09:04)
[2025-02-07] MEDS: amLODIPine BESYLATE 5 MG TABLET PO (09:04)
[2025-02-07] MEDS: SENNA/DOCUSATE SODIUM TABLET 1 TAB PO ×2 (09:04→17:09)
[2025-02-07] MEDS: EMPAGLIFLOZIN 10 MG TABLET BY MOUTH (09:04)
[2025-02-07] MEDS: DOCUSATE SODIUM 100 MG CAPSULE PO ×2 (09:04→17:09)
[2025-02-07] MEDS: DULoxetine HCL 60 MG CAPSULE.DR PO (09:05)
[2025-02-07] MEDS: LOSARTAN POTASSIUM 100 MG TABLET PO (09:05)
[2025-02-07] MEDS: PANTOPRAZOLE 40 MG TABLET PO (09:05)
--- NOTE | 2025-02-07 10:24 | P.CONGI_ITS ---
Assessment and Plan Assessment and plan (1) PATTIE (iron deficiency anemia): Qualifiers: Iron deficiency anemia type: chronic blood loss Qualified Code(s): D 50.0 - Iron deficiency anemia secondary to blood loss (chronic) Code(s): D50.9 - Iron deficiency anemia, unspecified Status: Acute (2) Melena: Code(s): K92.1 - Melena Status: Acute (3) GERD (gastroesophageal reflux disease): Qualifiers: Esophagitis presence: esophagitis presence not specified Qualified Code(s): K21.9 - Gastro-esophageal reflux disease without esophagitis Code(s): K21.9 - Gastro-esophageal reflux disease without esophagitis Status: Acute Plan 1. Iron deficiency anemia/melena/GERD: Per patient last EGD and colonoscopy 8-10 years ago. He admits to a Hx of bleeding in his stomach but was unable to provider further details. He was on omeprazole 20 mg daily prior to admission and reflux was well controlled. He is on Plavix and Pradaxa for Hx of A-Fib and CVA, anticoags currently on hold. Patient admits to an episode of dark stools prior to his admission around 7 days ago but that would not explain the severe anemia. On admission Hgb 5.4. Patient has received 2 units of PRBCs and IV iron infusion since admission. He denies any signs of active GI bleeding. Labs 02/05/2025 showed HGB 5, HCT 19, INR 2.3, iron 29, TIBC 364, iron saturation 8%, ferritin 15.80, B12 and folate were normal. Labs today show HGB 9, HCT 28, platelets 191. No recent GI imaging available. Patient had already eaten today so we are unable to perform any endoscopic evaluation today. * Plan for EGD and colonoscopy Monday * If EGD and colonoscopy are unremarkable may consider outpatient capsule endoscopy to evaluate small bowel * Continue holding anticoagulants * Care with NSAIDs and aspirin containing products * Continue PPI * Prep to start Monday evening * NPO after midnight * Primary care team to continue monitoring H&H transfuse as needed to keep HGB > 7 * Notify GI with update if patient shown to have active GI prior to planned endoscopic evaluation Monday Thank you very much for allowing me to share in the care of this very nice patient. This report may have been done utilizing a voice recognition system. Attempts have been made to correct errors. However, there may be uncorrected grammatical, spelling, and recognition errors present. GI Consult Note Consult date/time: 02/07/25 10:24 Reason for consult: Anemia HPI: Maksim Scanlon is a 69 year old male with PMSH of A-Fib on Plavix and Pradaxa, Hx of ETOH pancreatitis > 20 years ago, COPD, HTN, and Hx of CVA. He presented to the ER 02/05/2025 with complaints of weakness, tremors and speech difficulty and was admitted for anemia. On admission labs showed Hgb 5.4 and Hct 19. Patient has received 2 units of PRBC's and IV iron. Labs today showed Hgb 9, HCT 28, platelets 191 and INR 2.3. Patient states that prior to his admission he was having episodes of dark colored stool around 7 days ago but denies any since. Denies abdominal pain, nausea, vomiting, bloating, swallowing difficulty or regurgitation. He is on omeprazole 20 mg daily and denies any reflux symptoms. He denies any early satiety, appetite loss, unexplained weight loss. Patient admits to chronic constipation and states that he typically has a bowel movement every 3-4 days. He is on multiple medications for constipation but he is unable to say which ones he is currently taking. He states that he is currently residing at a correction following neck and back surgery. He denies any diarrhea or hematochezia. Patient on Plavix and Pradaxa prior to admission. Patient states he quit smoking around 6 months ago. History of ETOH abuse but denies any alcohol use for more than 20 years. He denies any marijuana use. Family history negative for CRC or IBD. ENDOSCOPY HISTORY: EGD: Per patient last EGD around 8-10 years ago. He states that he has a Hx of gastric bleeding in the past COLONOSCOPY: Per patient last colonoscopy > 10 years ago. LABS AND STOOL STUDIES: Labs 02/07/2025: Sodium 138, potassium 3.8, BUN 15, creatinine 0.84, GFR >60, calcium 8.8 WBC 5, Hgb 9, Hct 28, MCV 87, platelets 191, INR 2.3 Total bilirubin 0.4, AST 26, ALT 13, Alkaline Phos 138, albumin 3.3 Labs 02/05/2025: Sodium 138, potassium 4.3, BUN 29, creatinine 1.20, GFR 60, calcium 8.2 WBC 5, Hgb 5.4, Hct 18.8, MCV 87, platelets 182 Total bilirubin 0.1, AST 24, ALT 13, Alkaline Phos 137, albumin 3.2 Total iron 29, TIBC 364, iron sat 8%, ferritin 15.80, B12 293, folate 11.1 and TSH 1.080 IMAGING: No recent GI imaging Review of Systems 2 Constitutional: Constitutional: Reports as per HPI ENT: Reports as per HPI Cardiovascular: Cardiovascular: Reports as per HPI, Denies chest pain and Denies dyspnea Respiratory: Respiratory: Denies cough and Denies dyspnea Gastrointestinal: Gastrointestinal: Reports as per HPI Musculoskeletal: Musculoskeletal: Reports as per HPI Integumentary/Breasts: Skin/Breast: Reports as per HPI Psychiatric: Psychiatric: Reports as per HPI Endocrine: Endocrine: Reports no additional endocrine complaints Hematologic/Lymphatic: Hematologic/Lymphatic: Reports no additional hematologic/lymphatic complaints [facility] Past Medical History Medical History (Updated 02/07/25 @ 11:15 by Ca Quintero APRN) CVA, old, monoplegia upper limb HTN (hypertension) Atrial fibrillation COPD (chronic obstructive pulmonary disease) Diabetes Family History Family History (Updated 02/06/25 @ 00:37 by Rola Amaro RN) Other Unknown family medical history Social History Social History Smoking status: Current every day smoker Tobacco type: cigarettes Alcohol intake: former Substance use: former Do You Feel Safe in your Home?: Yes Lack of Transportation: No Lack of Food: Never True Current Housing: I Have Housing Concerned About Future Housing: No Difficulty Paying Gas/Electric Bills: No Difficulty Paying for Meds: No Currently Unemployed: No Education: Trade/Vocational Certificate Difficulty w/ Childcare or Family Care: No Spiritual care concerns: No Meds Home Medications and Allergies Home Medications ?Medication ?Instructions ?Recorded ?Confirmed ?Type albuterol sulfate 90 mcg/actuation 2 puff inhalation Q6H PRN 02/05/25 02/06/25 History aerosol inhaler shortness of breath or wheezing amlodipine 5 mg tablet 5 mg PO DAILY 02/05/25 02/06/25 History atorvastatin 80 mg tablet 80 mg PO QPM 02/05/25 02/06/25 History budesonide-formoterol HFA 160 2 puff inhalation Q12H PRN 02/05/25 02/06/25 History mcg-4.5 mcg/actuation aerosol shortness of breath or wheezing inhaler (Symbicort) carvedilol 25 mg tablet 25 mg PO Q12H 02/05/25 02/06/25 History clopidogrel 75 mg tablet 75 mg PO DAILY 02/05/25 02/06/25 History duloxetine 60 mg capsule,delayed 60 mg PO DAILY 02/05/25 02/06/25 History release insulin glargine 100 unit/mL (3 10 unit subcut QPM 02/05/25 02/06/25 History mL) subcutaneous pen (Lantus Solostar U-100 Insulin) insulin lispro 100 unit/mL 4 unit subcut .before meals 02/05/25 02/06/25 History subcutaneous pen lactulose 10 gram/15 mL oral 30 ml PO DAILY 02/05/25 02/06/25 History solution losartan 100 mg tablet 100 mg PO DAILY 02/05/25 02/06/25 History omeprazole 20 mg capsule,delayed 20 mg PO DAILY 02/05/25 02/06/25 History release oxycodone 5 mg tablet 10 mg PO Q6H PRN pain 02/05/25 02/06/25 History acetaminophen 325 mg capsule 650 mg PO Q6H PRN fever or pain 02/06/25 02/06/25 History carboxymethylcellulose sodium 0.5 1 drp EACH EYE Q4H 02/06/25 02/06/25 History % eye drops in a dropperette dabigatran etexilate 150 mg capsule 150 mg PO BID 02/06/25 02/06/25 History dapagliflozin propanediol 5 mg 5 mg PO DAILY 02/06/25 02/06/25 History tablet (Farxiga) ferrous sulfate 324 mg (65 mg 324 mg PO DAILY 02/06/25 02/06/25 History iron) tablet,delayed release fluticasone 250 mcg-salmeterol 50 1 inh inhalation ONCE 02/06/25 02/06/25 History mcg/dose blistr powdr for inhalation hydroxyzine HCl 25 mg tablet 25 mg PO DAILY 02/06/25 02/06/25 History methocarbamol 750 mg tablet 750 mg PO Q6H PRN muscle spasm 02/06/25 02/07/25 History multivitamin with iron 1 tablet PO DAILY 02/06/25 02/06/25 History nicotine 14 mg/24 hr daily 1 patch transdermal DAILY 02/06/25 02/06/25 History transdermal patch polyethylene glycol 3350 17 17 g PO DAILY 02/06/25 02/06/25 History gram/dose oral powder (Miralax) pregabalin 200 mg capsule (Lyrica) 200 mg PO BID 02/06/25 02/06/25 History sennosides 8.6 mg-docusate sodium 1 tab-cap PO BID 02/06/25 02/06/25 History 50 mg tablet (Stimulant Laxative Plus) umeclidinium 62.5 mcg/actuation 1 inh inhalation Q24H 02/06/25 02/06/25 History blister powder for inhalation (Incruse Ellipta) Allergies Allergy/AdvReac Type Severity Reaction Status Date / Time metformin Allergy Unknown Verified 02/06/25 02:02 vancomycin Allergy Unknown Verified 02/06/25 02:02 Vital Signs Vital Signs - 24 hr 02/06/25 10:55 02/06/25 11:51 02/06/25 11:55 Temperature 98.2 F 97.5 F L 98.2 F Pulse Rate 74 73 85 Respiratory Rate 18 20 18 Blood Pressure 154/62 H 157/64 H 173/70 H Pulse Oximetry 99 100 100 Oxygen Delivery 02/06/25 12:00 02/06/25 12:55 02/06/25 15:51 Temperature 98.2 F 97.5 F L Pulse Rate 70 76 69 Respiratory Rate 18 18 Blood Pressure 179/77 H 157/61 H Pulse Oximetry 97 97 Oxygen Delivery 02/06/25 16:00 02/06/25 19:58 02/06/25 20:00 Temperature 98.6 F Pulse Rate 88 72 Respiratory Rate 18 Blood Pressure 155/66 H Pulse Oximetry 100 Oxygen Delivery Room Air 02/06/25 20:00 02/06/25 20:20 02/07/25 00:00 Temperature Pulse Rate 73 83 65 Respiratory Rate Blood Pressure Pulse Oximetry Oxygen Delivery 02/07/25 00:00 02/07/25 04:00 02/07/25 04:29 Temperature 98.4 F 98.4 F Pulse Rate 65 61 64 Respiratory Rate 18 16 Blood Pressure 152/68 H 154/73 H Pulse Oximetry 100 99 Oxygen Delivery 02/07/25 08:00 02/07/25 08:39 02/07/25 08:40 Temperature 98 F Pulse Rate 72 72 Respiratory Rate 16 20 Blood Pressure 145/88 H Pulse Oximetry 99 99 Oxygen Delivery Room Air 02/07/25 09:03 Temperature Pulse Rate 86 Respiratory Rate Blood Pressure Pulse Oximetry Oxygen Delivery Exam 2 Const: General: cooperative, healthy appearing, comfortable, no acute distress and well developed Orientation/consciousness: oriented to person, oriented to place, oriented to time and patient oriented x3 HENMT: Head: normal to inspection, normocephalic and atraumatic Mouth: Yes Normal oral and palatal mucosa present and Yes moist mucous membranes Eyes: General: appearance normal, both eyes and all related structures C onjunctivae: conjunctivae normal Sclera: sclerae normal Pupils: Equal, round and reactive pupils present Neck: Neck: normal visual inspection Chest: Chest palpation & inspection: normal inspection of the chest Resp: Effort & Inspection: normal respiratory effort and able to speak in complete sentences Auscultation: clear to auscultation bilaterally Cardio: Jugular venous distension: no JVD Rate: regular rate Rhythm: r egular rhythm Heart sounds: S1 normal heart sound present and S2 normal heart sound present GI: Inspection: normal to inspection GI Palp: Yes Soft to palpation and Yes No hepatosplenomegaly present Auscultation: normal bowel sounds Rectal Exam: deferred Skin: General skin exam: normal color and no rashes or lesions noted W ounds: wounds noted Other: healed wound to left knee Neuro: General: oriented to person, oriented to place, oriented to time and patient oriented x3 Cranial nerves: Yes Equal, round and reactive pupils present Speech: normal speech Sensory Exam: No normal sensation Extrem: General: normal to inspection and no clubbing, cyanosis or edema Psych: Appearance: grossly normal and well kempt Affect: normal affect Results Labs 02/07/25 05:14 02/07/25 05:14 Labs: Short CBC 02/06/25 02/07/25 Range/Units 15:22 05:14 WBC 6.0 4.9 (4.5-10.0) K/mm3 Hgb 8.9 L 8.5 L (14.0-18.0) g/dL Hct 29.0 L 28.1 L (42.0-52.0) % Plt Count 188 191 (150-375) k/mm3 BMP 02/07/25 05:14 Sodium 138 Potassium 3.8 Chloride 106 Carbon Dioxide 26 BUN 15 D Creatinine 0.84 Glucose 169 H Calcium 8.8 Liver Function 02/07/25 Range/Units 05:14 Total Bilirubin 0.4 (0.2-1.3) mg/dL AST 26 (17-59) U/L ALT 13 (6-50) U/L Alkaline Phosphatase 138 H (38-126) U/L Albumin 3.3 L (3.5-5.1) g/dL
[2025-02-07 11:56] LABS: Glucose Point of Care 206 mg/dl (65-105)
[2025-02-07] MEDS: FERROUS SULFATE 325 MG TABLET DR BY MOUTH (12:55)
[2025-02-07] MEDS: INSULIN ASPART (*BKC) 100 UNITS/ML SUB-Q (12:56)
[2025-02-07 16:46] LABS: Glucose Point of Care 118 mg/dl (65-105)
[2025-02-07] MEDS: ATORVASTATIN 40 MG TABLET 80 MG PO (17:11)
[2025-02-07] MEDS: INSULIN GLARGINE (*BKC) 100 UNITS/ML 8 UNITS SUB-Q (17:12)
[2025-02-08] VITALS (11 sets, daily range): BP systolic 109–127; BP diastolic 56–68; PULSE 64–82; RESP 16–18; TEMP 36.6–36.8; O2SAT 98–100
[2025-02-08] MEDS: ARTIFICIAL TEARS OPHTH SOLN 15 ML BOTTLE 1 DROP EACH EYE ×5 (05:13→20:58)
[2025-02-08 06:28] LABS: Basophils Percent Auto 0.6 % (0.2-1.2); Eosinophils Absolute Auto 0.1 K/mm3 (0-0.3); Eosinophils Percent Auto 2.6 % (0-4.4); Hematocrit 27.4 % (42.0-52.0); Hemoglobin 8.3 g/dL (14.0-18.0); Immature Granulocyte Absolute 0.03 K/mm3 (0.00-0.031); Immature Granulocyte Percent A 0.6 % (0-0.5); Lymphocytes Absolute Auto 0.88 K/mm3 (0.9-3.2); Lymphocytes Percent Auto 16.3 % (18.3-44.2); Mean Corpuscular HGB Conc 30.3 g/dl (32-36); Mean Corpuscular Hemoglobin 26.2 pg (26-34); Mean Corpuscular Volume 86.4 fl (80-100); Mean Platelet Volume 10.5 fl (7.4-10.4); Monocytes Absolute Auto 0.7 K/mm3 (0.1-0.6); Monocytes Percent Auto 13.5 % (2.6-8.5); Neutrophils Absolute Auto 3.6 K/mm3 (1.3-6.7); Neutrophils Percent Auto 66.4 % (45.5-73.1); Platelet Count Result 176 k/mm3 (150-375); Red Blood Count 3.17 M/mm3 (4.6-6.20); Red Cell Distribution Width 18.1 % (11.5-14.5); White Blood Count 5.4 K/mm3 (4.5-10.0)
[2025-02-08 06:29] LABS: Glucose Point of Care 173 mg/dl (65-105)
[2025-02-08 06:43] LABS: Alanine Aminotransferase 13 U/L (6-50); Albumin Level 3.2 g/dL (3.5-5.1); Alkaline Phosphatase 131 U/L (38-126); Anion Gap 2 mmol/L (4-12); Aspartate Amino Transferase 25 U/L (17-59); Bilirubin,Total 0.2 mg/dL (0.2-1.3); Blood Urea Nitrogen 20 mg/dL (9-20); Calcium 8.4 mg/dL (8.4-10.2); Carbon Dioxide 29 mmol/L (22-30); Chloride 106 mmol/L (98-107); Estimated CRCL calculation 56 ml/min; Estimated Glomerular Filt Rate > 60; Glucose 140 mg/dL (65-110); Sodium 137 mmol/L (137-145); Total Protein 5.8 g/dL (6.3-8.2)
[2025-02-08] MEDS: oxyCODONE HCL (*CRX) 5 MG TAB IR 10 MG PO ×2 (07:27→18:58)
[2025-02-08 07:57] LABS: Glucose Point of Care 130 mg/dl (65-105)
[2025-02-08] MEDS: FLUTICASONE/SALMETEROL 115-21 MCG INHALER 1 PUFF 2 PUFF INHALATION ×2 (08:05→20:53)
[2025-02-08] MEDS: UMECLIDINIUM BROMIDE 62.5 MCG ELLIPTA 1 PUFF INHALATION (08:07)
[2025-02-08 09:19] LABS: Hemoglobin A1C 5.7 % (<5.7)
[2025-02-08] MEDS: LACTULOSE 20 GM/30 ML UDC PO (09:45)
[2025-02-08] MEDS: NICOTINE (*PBKC) 14 MG PATCH 1 PATCH TRANSDERM (09:46)
[2025-02-08] MEDS: carvediloL 25 MG TABLET PO ×2 (09:46→20:58)
[2025-02-08] MEDS: hydrOXYzine HCL 25 MG TABLET PO (09:46)
[2025-02-08] MEDS: THERAPEUTIC MULTIVITAMINS/MINERALS TAB (*BKC) 1 TABLET PO (09:47)
[2025-02-08] MEDS: SENNA/DOCUSATE SODIUM TABLET 1 TAB PO ×2 (09:47→17:34)
[2025-02-08] MEDS: EMPAGLIFLOZIN 10 MG TABLET BY MOUTH (09:47)
[2025-02-08] MEDS: PANTOPRAZOLE 40 MG TABLET PO (09:47)
[2025-02-08] MEDS: LOSARTAN POTASSIUM 100 MG TABLET PO (09:47)
[2025-02-08] MEDS: amLODIPine BESYLATE 5 MG TABLET PO (09:47)
[2025-02-08] MEDS: DOCUSATE SODIUM 100 MG CAPSULE PO ×2 (09:47→17:34)
[2025-02-08] MEDS: DULoxetine HCL 60 MG CAPSULE.DR PO (09:48)
[2025-02-08] MEDS: PREGABALIN (*CRX) 50 MG CAPSULE 200 MG PO ×2 (09:48→17:33)
--- NOTE | 2025-02-08 11:03 | P.PNIM_ITS ---
Progress Note: A&P Assessment and Plan (1) Low hemoglobin: Code(s): D64.9 - Anemia, unspecified Status: Acute Assessment and Plan: Came to the ED for weakness. Pt reports hx of anemia but never having to get a blood transfusion. -Hgb 5.4 in the ED, 1 unit PRBC given -Repeat hgb 02/06 AM 6.5, additional 1 unit PRBCs given while inpt, repeat hgb 8.9 02/07: -H/H 02/07 AM 8.5/28.1 -Consulting GI today for potential causes -->Per GI: EGD and cscope on 02/10 due to Plavix to further investigate 02/08: -H/H 02/07 AM 8.3/27.4 -Continue on with plan for EGD and cscope 02/10 due to Plavix to further investigate blood loss (2) Anemia: Code(s): D64.9 - Anemia, unspecified Status: Acute Assessment and Plan: See above (3) Diabetes: Code(s): E11.9 - Type 2 diabetes mellitus without complications Status: Acute Assessment and Plan: AccuChecks ACHS, sliding scale, and hypoglycemic order sets placed -Restarted home oral meds -Pt usually takes lispro 4units pre prandial & 10 Lantus PM -Will continue to monitor labs and POC sugars 02/07: -Increased sliding scale to moderate dosing and started pt on 8units of lantus for PM (normally takes 10units at home) due to pt elevated fasting and Pre prandial readings. -Ordered A1c today, pending 02/08: Discussed with him today his A1c results of 5.7 and how they were on the low end for his age, he reports that he has been on insulin for awhile but not metformin because he is allergic. Plan to f/u with his PCP regarding his glycemic index. Continue with POC blood sugar checks and daily AM CMPs. (4) COPD (chronic obstructive pulmonary disease): Code(s): J44.9 - Chronic obstructive pulmonary disease, unspecified Status: Acute Assessment and Plan: Continue home inhalers, denies issues breathing (5) Atrial fibrillation: Code(s): I48.91 - Unspecified atrial fibrillation Status: Acute Assessment and Plan: 02/07: Plavix and Pradexa held today for GI consult / work-up NSR via EKG in ED, continue to monitor (6) HTN (hypertension): Code(s): I10 - Essential (primary) hypertension Status: Acute Assessment and Plan: Restarted home meds: -Amlodipine 5mg -Coreg 25mg -Losartan 100mg (7) CVA, old, monoplegia upper limb: Status: Acute Assessment and Plan: Plavix and Pradexa held 02/07 for GI consult / work-up LUE weakness, L facial droop, and slurred speech at baseline Plan Continue to trend AM labs, POC BS, and continued plan for EGD and cscope 02/10 Subjective Date/time seen: 02/08/25 1053 Interval history: Per ED provider: Patient is 69-year-old male who presents to the ER with complaints of difficulty speaking, tremors, and weakness. He reports his symptoms have been going on for approximately 1 week. Patient reports he had back surgery about 7 weeks ago and has been living ever care for rehabilitation. He denies any pain at this time. Patient endorses a history AFib, COPD, diabetes, high blood pressure, recent laminectomy, and is on blood thinners. He denies any recent fevers, new medications, or nausea/vomiting. 02/06: Pt drowsy and resting in bed at time of my visit. Pt wakes to verbal stimuli. Pt denies any acute sx other than weakness but reports that it is better. Pt has received x2 units of PRBC so far, awaiting repeat hgb level. We talked thoroughly about his medical hx and CVA deficits. He reports that he ambulates normally at home with a walker. Pt reports having a laminectomy x7 weeks ago and currently resides at [facility]. Plans to go back to this [facility], PT/OT placed today incase needing to go elsewhere. 02/07: Pt up and in the chair today looking much better today, engaging more in conversation. Pt states that he was feeling unwell yesterday and today he is feeling much better. He does report to me that he has been having black stools at home x 1 week with progressive weakness. I updated him that these could be sx of blood loss. I did update him on the plan for GI consult with their plan being EGD and cscope, pt agreeable with plan and is encouraged that we will potentially have an answer for his low hgb. Plan to continue with therapy and daily lab draws. 02/08: Pt reports today that he is continuing to feel well, no more blood/tarry black stools and/or abd pain. Discussed with him today his A1c results and how they were on the low end for his age, he reports that he has been on insulin for awhile but not metformin because he is allergic. Plan to f/u with his PCP r egarding his glycemic index. Reiterated the plan for GI w/u Monday, pt agreeable with the plan. Review of Systems Review of Systems: All systems reviewed & are unremarkable except as noted in HPI and below Exam Const: General: comfortable and no acute distress Other: Pt sitting up in chair today HENMT: Face/Nose/Sinus: Normal nares present Mouth: Yes moist mucous membranes Eyes: General: appearance normal, both eyes and all related structures Sclera: sclerae normal Neck: Neck: supple and no JVD Carotids: no bruits Resp: Effort & Inspection: normal respiratory effort Auscultation: clear to auscultation bilaterally Cardio: Rate: regular rate Rhythm: regular rhythm GI: Inspection: non-distended Auscultation: normal bowel sounds Skin: General skin exam: normal color and no rashes or lesions noted Wounds: no wounds Neuro: Other: Alert. Garbled speech, mild L facial droop, LUE and hand contracted with minimal to no movement of LUE. Hand with 2/5 strength, RUE tremulous (ALL BASELINE) Extrem: Other: LUE an hand contracture Psych: Mental Status: mental status grossly normal Affect: normal affect Objective Data Vital Signs Vital Signs: Vital Signs - 24 hr 02/07/25 12:00 02/07/25 12:00 02/07/25 14:13 Temperature 98.2 F Pulse Rate 65 67 Respiratory Rate 16 Blood Pressure 122/70 Pulse Oximetry 100 Oxygen Delivery Room Air Fraction of Inspired Oxygen 02/07/25 15:35 02/07/25 16:00 02/07/25 20:00 Temperature 96.0 F L Pulse Rate 67 65 Respiratory Rate 18 Blood Pressure 119/54 L Pulse Oximetry 95 Oxygen Delivery Room Air Fraction of Inspired Oxygen 02/07/25 20:00 02/07/25 20:12 02/07/25 20:54 Temperature Pulse Rate 69 67 Respiratory Rate Blood Pressure Pulse Oximetry 98 Oxygen Delivery Room Air Fraction of Inspired Oxygen 02/07/25 21:11 02/08/25 00:00 02/08/25 04:00 Temperature 98.4 F Pulse Rate 74 69 64 Respiratory Rate 18 Blood Pressure 155/69 H Pulse Oximetry 98 Oxygen Delivery Fraction of Inspired Oxygen 02/08/25 05:13 02/08/25 08:00 02/08/25 08:05 Temperature 97.9 F Pulse Rate 66 Respiratory Rate 18 Blood Pressure 127/68 Pulse Oximetry 99 98 98 Oxygen Delivery Room Air Room Air Fraction of Inspired Oxygen 21 02/08/25 08:05 02/08/25 09:46 Temperature Pulse Rate 78 82 Respiratory Rate 16 Blood Pressure Pulse Oximetry Oxygen Delivery Fraction of Inspired Oxygen Intake/Output Intake/Output: Intake & Output 02/05/25 02/06/25 02/07/25 02/08/25 23:59 23:59 23:59 23:59 Intake Total 1000 2078 1660 730 Output Total 3700 1050 450 Balance 1000 -1622 610 280 Meds/Results Medications: Active Medications Generic Name Dose Route Start Last Admin Trade Name Freq PRN Reason Stop Dose Admin Acetaminophen 650 mg 02/06/25 14:02 02/06/25 16:53 Acetaminophen 325 Mg Tablet PO 650 mg Q6H PRN Administration fever or pain 1-3 Albuterol 2 puff 02/06/25 14:02 Albuterol Sulfate (*Sp) Aerosol 1 Puff INHALATION Q6HRT PRN shortness of breath or wheezin Amlodipine Besylate 5 mg 02/07/25 09:00 02/08/25 09:47 Amlodipine Besylate 5 Mg Tablet PO 5 mg DAILY LAKSHMI Administration Artificial Tears 1 drop 02/06/25 17:00 02/08/25 09:45 Artificial Tears Ophth Soln 15 Ml Bottle EACH EYE 1 drop Q4H LAKSHMI Administration Atorvastatin Calcium 80 mg 02/06/25 18:00 02/07/25 17:11 Atorvastatin 40 Mg Tablet PO 80 mg QPM LAKSHMI Administration Bisacodyl 10 mg 02/09/25 15:00 Bisacodyl 5 Mg Tablet Ec PO 02/09/25 21:01 1500,2100 LAK[facility]MI Carvedilol 25 mg 02/06/25 21:00 02/08/25 09:46 Carvedilol 25 Mg Tablet PO 25 mg Q12HR LAKSHMI Administration Clopidogrel Bisulfate 75 mg 02/07/25 09:00 Clopidogrel Bisulfate 75 Mg Tablet PO DAILY LAKSHMI Dabigatran 150 mg 02/06/25 17:00 02/06/25 17:27 Dabigatran Etexilate 150 Mg Capsule PO 150 mg BID LAKSHMI Administration Dextrose 12.5 gm 02/06/25 11:33 Dextrose 50% 25 Gm/50 Ml Syringe IV PUSH PRN PRN Hypoglycemia Protocol Docusate Sodium 100 mg 02/06/25 09:00 02/08/25 09:47 Docusate Sodium 100 Mg Capsule PO 100 mg BID LAKSHMI Administration Duloxetine HCl 60 mg 02/07/25 09:00 02/08/25 09:48 Duloxetine Hcl 60 Mg Capsule.Dr PO 60 mg DAILY LAKSHMI Administration Empagliflozin 10 mg 02/07/25 09:00 02/08/25 09:47 Empagliflozin 10 Mg Tablet BY MOUTH 10 mg DAILY LAKSHMI Administration Ferrous Sulfate 325 mg 02/07/25 12:00 02/07/25 12:55 Ferrous Sulfate [address] BY MOUTH 325 mg DAILY@1200 LAKSHMI Administration Glucagon 1 mg 02/06/25 11:33 Glucagon For Inj 1 Mg Vial IM PRN PRN Hypoglycemia Protocol Glucose 15 gm 02/06/25 11:33 Glucose Oral Gel 15 Gm Of Glucse In 37.5 Gm Tube PO PRN PRN Hypoglycemia Protocol Hydroxyzine HCl 25 mg 02/07/25 09:00 02/08/25 09:46 Hydroxyzine Hcl 25 Mg Tablet PO 25 mg DAILY LAKSHMI Administration Dextrose 1,000 mls @ 100 mls/hr 02/06/25 11:33 Dextrose 5% 1,000 Ml IVPB PRN PRN Hypoglycemia Protocol Insulin Aspart 3 - 6 units 02/07/25 17:00 02/08/25 09:44 Insulin Aspart (*Bkc) 100 Units/Ml SUB-Q Not Given TIDWM [facility] Protocol Insulin Glargine 8 units 02/07/25 18:00 02/07/25 17:12 Insulin Glargine (*Bkc) 100 Units/Ml SUB-Q 8 units QPM LAKSHMI Administration Lactulose 20 gm 02/07/25 09:00 02/08/25 09:45 Lactulose 20 Gm/30 Ml Udc PO 20 gm DAILY LAKSHMI Administration Losartan Potassium 100 mg 02/07/25 09:00 02/08/25 09:47 Losartan Potassium 100 Mg Tablet PO 100 mg DAILY LAKSHMI Administration Magnesium Citrate 180 ml 02/09/25 22:00 Magnesium Citrate 300 Ml Btl PO 02/09/25 22:01 ONCE ONE Methocarbamol 750 mg 02/07/25 05:40 Methocarbamol 750 Mg Tablet PO Q6H PRN Muscle Spasm Multivitamins/Calcium 1 tablet 02/07/25 09:00 02/08/25 09:47 Therapeutic Multivitamins/Minerals Tab (*Bkc) PO 1 tablet DAILY LAKSHMI Administration Nicotine 1 patch 02/06/25 14:15 02/08/25 09:46 Nicotine (*Pbkc) 14 Mg Patch TRANSDERM 1 patch DAILY LAKSHMI Administration Ondansetron HCl 4 mg 02/06/25 07:27 Ondansetron Inj 4 Mg/2 Ml Vial IV PUSH Q6H PRN Nausea And Vomiting Oxycodone HCl 10 mg 02/06/25 18:31 02/08/25 07:27 Oxycodone Hcl (*Crx) 5 Mg Tab Ir PO 10 mg Q6H PRN Administration Pain Rated 6 or Greater Pantoprazole Sodium 40 mg 02/07/25 09:00 02/08/25 09:47 Pantoprazole 40 Mg Tablet PO 40 mg QAM LAKSHMI Administration Polyethylene Glycol 17 gm 02/07/25 09:00 02/08/25 09:48 Polyethylene Glycol 3350 17 Gm Powd.Pack PO Not Given DAILY [facility] Polyethylene Glycol 238 gm 02/09/25 22:00 Polyethylene Glycol 3350 238 Gm Bottle PO 02/09/25 22:01 ONCE ONE Pregabalin 200 mg 02/06/25 17:00 02/08/25 09:48 Pregabalin (*Crx) 50 Mg Capsule PO 200 mg BID LAKSHMI Administration Fluticasone/Salmeterol 2 puff 02/06/25 20:00 02/08/25 08:05 Fluticasone/Salmeterol 115-21 Mcg Inhaler 1 Puff INHALATION 2 puff Q12HRT LAKSHMI Administration Senna/Docusate Sodium 1 tab 02/06/25 17:00 02/08/25 09:47 Senna/Docusate Sodium Tablet PO 1 tab BID LAKSHMI Administration Umeclidinium [place] 1 puff 02/07/25 08:00 02/08/25 08:07 Umeclidinium [place] 62.5 Mcg Ellipta INHALATION 1 puff DAILYRT LAKSHMI Administration Radiology Results: ITS Impressions Head CT 02/05/25 17:45 IMPRESSION: No acute intracranial findings. Chest X-Ray 02/05/25 17:58 IMPRESSION: No acute cardiopulmonary pathology. Labs Labs: Laboratory Results - last 24 hr 02/07/25 02/07/25 02/07/25 11:49 16:36 21:18 WBC RBC Hgb Hct MCV MCH MCHC RDW Plt Count MPV Immature Gran % (Auto) Neut % (Auto) Lymph % (Auto) [place] % (Auto) Eos % (Auto) Baso % (Auto) Lymph # (Auto) [place] # (Auto) Eos # (Auto) Baso # (Auto) Abs Immat Gran (auto) Absolute Neuts (auto) Absolute Nucleated RBC Nucleated RBC % Sodium Potassium Chloride Carbon Dioxide Anion Gap BUN Creatinine Estim Creat Clear Calc Estimated GFR Glucose POC Capillary Glucose 206 H 118 H 173 H Hemoglobin A1c Calcium Total Bilirubin AST ALT Alkaline Phosphatase Total Protein Albumin 02/08/25 02/08/25 06:03 07:46 WBC 5.4 RBC 3.17 L Hgb 8.3 L Hct 27.4 L MCV 86.4 MCH 26.2 MCHC 30.3 L RDW 18.1 H Plt Count 176 MPV 10.5 H Immature Gran % (Auto) 0.6 H Neut % (Auto) 66.4 Lymph % (Auto) 16.3 L [place] % (Auto) 13.5 H Eos % (Auto) 2.6 Baso % (Auto) 0.6 Lymph # (Auto) 0.88 L [place] # (Auto) 0.7 H Eos # (Auto) 0.1 Baso # (Auto) 0.0 Abs Immat Gran (auto) 0.03 Absolute Neuts (auto) 3.6 Absolute Nucleated RBC 0.000 Nucleated RBC % 0.0 Sodium 137 Potassium 4.0 Chloride 106 Carbon Dioxide 29 Anion Gap 2 L BUN 20 Creatinine 0.98 Estim Creat Clear Calc 56 Estimated GFR > 60 Glucose 140 H POC Capillary Glucose 130 H Hemoglobin A1c 5.7 Calcium 8.4 Total Bilirubin 0.2 AST 25 ALT 13 Alkaline Phosphatase 131 H Total Protein 5.8 L Albumin 3.2 L Quality VTE Prophylaxis VTE prophylaxis: mechanical ordered
[2025-02-08 12:13] LABS: Glucose Point of Care 209 mg/dl (65-105)
[2025-02-08] MEDS: FERROUS SULFATE 325 MG TABLET DR BY MOUTH (12:30)
[2025-02-08] MEDS: INSULIN ASPART (*BKC) 100 UNITS/ML SUB-Q (12:33)
--- NOTE | 2025-02-08 14:06 | P.PNGI_ITS ---
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 Status: Acute Subjective Date/time seen: 02/08/25 14:06 Interval history: no changes, he is comfortable Review of Systems Review of Systems: All systems reviewed & are unremarkable except as noted in HPI and below Exam Const: General: comfortable and no acute distress HENMT: Face/Nose/Sinus: Normal nares present Mouth: Yes moist mucous membranes Eyes: General: appearance normal, both eyes and all related structures Sclera: sclerae normal Neck: Neck: supple Resp: Effort & Inspection: normal respiratory effort Auscultation: clear to auscultation bilaterally Cardio: Rate: regular rate Rhythm: regular rhythm GI: Inspection: non-distended Auscultation: normal bowel sounds Skin: General skin exam: normal color and no rashes or lesions noted Extrem: Other: LUE an hand contracture Psych: Affect: normal affect Objective Data Vital Signs Vital Signs: Vital Signs - 24 hr 02/07/25 14:13 02/07/25 15:35 02/07/25 16:00 Temperature 96.0 F L Pulse Rate 67 65 Respiratory Rate 18 Blood Pressure 119/54 L Pulse Oximetry 95 Oxygen Delivery Room Air Fraction of Inspired Oxygen 02/07/25 20:00 02/07/25 20:00 02/07/25 20:12 Temperature Pulse Rate 69 Respiratory Rate Blood Pressure Pulse Oximetry 98 Oxygen Delivery Room Air Room Air Fraction of Inspired Oxygen 02/07/25 20:54 02/07/25 21:11 02/08/25 00:00 Temperature 98.4 F Pulse Rate 67 74 69 Respiratory Rate 18 Blood Pressure 155/69 H Pulse Oximetry 98 Oxygen Delivery Fraction of Inspired Oxygen 02/08/25 04:00 02/08/25 05:13 02/08/25 08:00 Temperature 97.9 F Pulse Rate 64 66 Respiratory Rate 18 Blood Pressure 127/68 Pulse Oximetry 99 98 Oxygen Delivery Room Air Fraction of Inspired Oxygen 02/08/25 08:05 02/08/25 08:05 02/08/25 09:46 Temperature Pulse Rate 78 82 Respiratory Rate 16 Blood Pressure Pulse Oximetry 98 Oxygen Delivery Room Air Fraction of Inspired Oxygen 21 02/08/25 12:00 Temperature Pulse Rate 64 Respiratory Rate 16 Blood Pressure 116/59 L Pulse Oximetry 100 Oxygen Delivery Fraction of Inspired Oxygen Intake/Output Intake/Output: Intake & Output 02/05/25 02/06/25 02/07/25 02/08/25 23:59 23:59 23:59 23:59 Intake Total 1000 2078 1660 730 Output Total 3700 1050 450 Balance 1000 -1622 610 280 Meds/Results Medications: Active Medications Generic Name Dose Route Start Last Admin Trade Name Freq PRN Reason Stop Dose Admin Acetaminophen 650 mg 02/06/25 14:02 02/06/25 16:53 Acetaminophen 325 Mg Tablet PO 650 mg Q6H PRN Administration fever or pain 1-3 Albuterol 2 puff 02/06/25 14:02 Albuterol Sulfate (*Sp) Aerosol 1 Puff INHALATION Q6HRT PRN shortness of breath or wheezin Amlodipine Besylate 5 mg 02/07/25 09:00 02/08/25 09:47 Amlodipine Besylate 5 Mg Tablet PO 5 mg DAILY LAKSHMI Administration Artificial Tears 1 drop 02/06/25 17:00 02/08/25 12:31 Artificial Tears Ophth Soln 15 Ml Bottle EACH EYE 1 drop Q4H LAKSHMI Administration Atorvastatin Calcium 80 mg 02/06/25 18:00 02/07/25 17:11 Atorvastatin 40 Mg Tablet PO 80 mg QPM LAKSHMI Administration Bisacodyl 10 mg 02/09/25 15:00 Bisacodyl 5 Mg Tablet Ec PO 02/09/25 21:01 1500,2100 [facility] Carvedilol 25 mg 02/06/25 21:00 02/08/25 09:46 Carvedilol 25 Mg Tablet PO 25 mg Q12HR LAKSHMI Administration Clopidogrel Bisulfate 75 mg 02/07/25 09:00 Clopidogrel Bisulfate 75 Mg Tablet PO DAILY LAKSHMI Dabigatran 150 mg 02/06/25 17:00 02/06/25 17:27 Dabigatran Etexilate 150 Mg Capsule PO 150 mg BID LAKSHMI Administration Dextrose 12.5 gm 02/06/25 11:33 Dextrose 50% 25 Gm/50 Ml Syringe IV PUSH PRN PRN Hypoglycemia Protocol Docusate Sodium 100 mg 02/06/25 09:00 02/08/25 09:47 Docusate Sodium 100 Mg Capsule PO 100 mg BID LAKSHMI Administration Duloxetine HCl 60 mg 02/07/25 09:00 02/08/25 09:48 Duloxetine Hcl 60 Mg Capsule.Dr PO 60 mg DAILY LAKSHMI Administration Empagliflozin 10 mg 02/07/25 09:00 02/08/25 09:47 Empagliflozin 10 Mg Tablet BY MOUTH 10 mg DAILY LAKSHMI Administration Ferrous Sulfate 325 mg 02/07/25 12:00 02/08/25 12:30 Ferrous Sulfate [address] BY MOUTH 325 mg DAILY@1200 LAKSHMI Administration Glucagon 1 mg 02/06/25 11:33 Glucagon For Inj 1 Mg Vial IM PRN PRN Hypoglycemia Protocol Glucose 15 gm 02/06/25 11:33 Glucose Oral Gel 15 Gm Of Glucse In 37.5 Gm Tube PO PRN PRN Hypoglycemia Protocol Hydroxyzine HCl 25 mg 02/07/25 09:00 02/08/25 09:46 Hydroxyzine Hcl 25 Mg Tablet PO 25 mg DAILY LAKSHMI Administration Dextrose 1,000 mls @ 100 mls/hr 02/06/25 11:33 Dextrose 5% 1,000 Ml IVPB PRN PRN Hypoglycemia Protocol Insulin Aspart 3 - 6 units 02/07/25 17:00 02/08/25 12:33 Insulin Aspart (*Bkc) 100 Units/Ml SUB-Q 3 units TIDWM LAKSHMI Administration Protocol Insulin Glargine 8 units 02/07/25 18:00 02/07/25 17:12 Insulin Glargine (*Bkc) 100 Units/Ml SUB-Q 8 units QPM LAKSHMI Administration Lactulose 20 gm 02/07/25 09:00 02/08/25 09:45 Lactulose 20 Gm/30 Ml Udc PO 20 gm DAILY LAKSHMI Administration Losartan Potassium 100 mg 02/07/25 09:00 02/08/25 09:47 Losartan Potassium 100 Mg Tablet PO 100 mg DAILY LAKSHMI Administration Magnesium Citrate 180 ml 02/09/25 22:00 Magnesium Citrate 300 Ml Btl PO 02/09/25 22:01 ONCE ONE Methocarbamol 750 mg 02/07/25 05:40 Methocarbamol 750 Mg Tablet PO Q6H PRN Muscle Spasm Multivitamins/Calcium 1 tablet 02/07/25 09:00 02/08/25 09:47 Therapeutic Multivitamins/Minerals Tab (*Bkc) PO 1 tablet DAILY LAKSHMI Administration Nicotine 1 patch 02/06/25 14:15 02/08/25 09:46 Nicotine (*Pbkc) 14 Mg Patch TRANSDERM 1 patch DAILY L[facility]MI Administration Ondansetron HCl 4 mg 02/06/25 07:27 Ondansetron Inj 4 Mg/2 Ml Vial IV PUSH Q6H PRN Nausea And Vomiting Oxycodone HCl 10 mg 02/06/25 18:31 02/08/25 07:27 Oxycodone Hcl (*Crx) 5 Mg Tab Ir PO 10 mg Q6H PRN Administration Pain Rated 6 or Greater Pantoprazole Sodium 40 mg 02/07/25 09:00 02/08/25 09:47 Pantoprazole 40 Mg Tablet PO 40 mg QAM LAKSHMI Administration Polyethylene Glycol 17 gm 02/07/25 09:00 02/08/25 09:48 Polyethylene Glycol 3350 17 Gm Powd.Pack PO Not Given DAILY [facility] Polyethylene Glycol 238 gm 02/09/25 22:00 Polyethylene Glycol 3350 238 Gm Bottle PO 02/09/25 22:01 ONCE ONE Pregabalin 200 mg 02/06/25 17:00 02/08/25 09:48 Pregabalin (*Crx) 50 Mg Capsule PO 200 mg BID LAKSHMI Administration Fluticasone/Salmeterol 2 puff 02/06/25 20:00 02/08/25 08:05 Fluticasone/Salmeterol 115-21 Mcg Inhaler 1 Puff INHALATION 2 puff Q12HRT LAKSHMI Administration Senna/Docusate Sodium 1 tab 02/06/25 17:00 02/08/25 09:47 Senna/Docusate Sodium Tablet PO 1 tab BID LAKSHMI Administration Umeclidinium [place] 1 puff 02/07/25 08:00 02/08/25 08:07 Umeclidinium [place] 62.5 Mcg Ellipta INHALATION 1 puff DAILYRT LAKSHMI Administration Radiology Results: ITS Impressions Head CT 02/05/25 17:45 IMPRESSION: No acute intracranial findings. Chest X-Ray 02/05/25 17:58 IMPRESSION: No acute cardiopulmonary pathology. Labs Labs: Laboratory Results - last 24 hr 02/07/25 02/07/25 02/08/25 16:36 21:18 06:03 WBC 5.4 RBC 3.17 L Hgb 8.3 L Hct 27.4 L MCV 86.4 MCH 26.2 MCHC 30.3 L RDW 18.1 H Plt Count 176 MPV 10.5 H Immature Gran % (Auto) 0.6 H Neut % (Auto) 66.4 Lymph % (Auto) 16.3 L [place] % (Auto) 13.5 H Eos % (Auto) 2.6 Baso % (Auto) 0.6 Lymph # (Auto) 0.88 L [place] # (Auto) 0.7 H Eos # (Auto) 0.1 Baso # (Auto) 0.0 Abs Immat Gran (auto) 0.03 Absolute Neuts (auto) 3.6 Absolute Nucleated RBC 0.000 Nucleated RBC % 0.0 Sodium 137 Potassium 4.0 Chloride 106 Carbon Dioxide 29 Anion Gap 2 L BUN 20 Creatinine 0.98 Estim Creat Clear Calc 56 Estimated GFR > 60 Glucose 140 H POC Capillary Glucose 118 H 173 H Hemoglobin A1c 5.7 Calcium 8.4 Total Bilirubin 0.2 AST 25 ALT 13 Alkaline Phosphatase 131 H Total Protein 5.8 L Albumin 3.2 L 02/08/25 02/08/25 07:46 12:06 WBC RBC Hgb Hct MCV MCH MCHC RDW Plt Count MPV Immature Gran % (Auto) Neut % (Auto) Lymph % (Auto) [place] % (Auto) Eos % (Auto) Baso % (Auto) Lymph # (Auto) [place] # (Auto) Eos # (Auto) Baso # (Auto) Abs Immat Gran (auto) Absolute Neuts (auto) Absolute Nucleated RBC Nucleated RBC % Sodium Potassium Chloride Carbon Dioxide Anion Gap BUN Creatinine Estim Creat Clear Calc Estimated GFR Glucose POC Capillary Glucose 130 H 209 H Hemoglobin A1c Calcium Total Bilirubin AST ALT Alkaline Phosphatase Total Protein Albumin
[2025-02-08 16:45] LABS: Glucose Point of Care 144 mg/dl (65-105)
[2025-02-08] MEDS: ATORVASTATIN 40 MG TABLET 80 MG PO (17:34)
[2025-02-08] MEDS: INSULIN GLARGINE (*BKC) 100 UNITS/ML 8 UNITS SUB-Q (17:42)
[2025-02-08 20:56] LABS: Glucose Point of Care 229 mg/dl (65-105)
[2025-02-09] VITALS (11 sets, daily range): BP systolic 91–126; BP diastolic 44–59; PULSE 55–83; RESP 16–20; TEMP 36.4–36.7; O2SAT 94–100
[2025-02-09] MEDS: oxyCODONE HCL (*CRX) 5 MG TAB IR 10 MG PO ×2 (05:21→17:00)
[2025-02-09] MEDS: ARTIFICIAL TEARS OPHTH SOLN 15 ML BOTTLE 1 DROP EACH EYE ×5 (05:22→20:39)
[2025-02-09 05:49] LABS: Alanine Aminotransferase 14 U/L (6-50); Albumin Level 3.2 g/dL (3.5-5.1); Alkaline Phosphatase 150 U/L (38-126); Anion Gap 6 mmol/L (4-12); Aspartate Amino Transferase 25 U/L (17-59); Bilirubin,Total 0.2 mg/dL (0.2-1.3); Blood Urea Nitrogen 19 mg/dL (9-20); Calcium 8.4 mg/dL (8.4-10.2); Carbon Dioxide 26 mmol/L (22-30); Chloride 106 mmol/L (98-107); Estimated CRCL calculation 54 ml/min; Estimated Glomerular Filt Rate > 60; Glucose 161 mg/dL (65-110); Potassium 4.4 mmol/L (3.4-5.0); Sodium 138 mmol/L (137-145); Total Protein 5.9 g/dL (6.3-8.2)
[2025-02-09 05:50] LABS: Basophils Percent Auto 0.5 % (0.2-1.2); Eosinophils Absolute Auto 0.2 K/mm3 (0-0.3); Eosinophils Percent Auto 2.8 % (0-4.4); Hematocrit 29.2 % (42.0-52.0); Hemoglobin 8.6 g/dL (14.0-18.0); Immature Granulocyte Absolute 0.02 K/mm3 (0.00-0.031); Immature Granulocyte Percent A 0.3 % (0-0.5); Lymphocytes Absolute Auto 1.06 K/mm3 (0.9-3.2); Lymphocytes Percent Auto 18.4 % (18.3-44.2); Mean Corpuscular HGB Conc 29.5 g/dl (32-36); Mean Corpuscular Hemoglobin 26.2 pg (26-34); Mean Platelet Volume 10.8 fl (7.4-10.4); Monocytes Absolute Auto 0.9 K/mm3 (0.1-0.6); Monocytes Percent Auto 15.6 % (2.6-8.5); Neutrophils Absolute Auto 3.6 K/mm3 (1.3-6.7); Neutrophils Percent Auto 62.4 % (45.5-73.1); Nucleated Red Blood Cells Perc 0.3 % (0.0-0.2); Platelet Count Result 206 k/mm3 (150-375); Red Blood Count 3.28 M/mm3 (4.6-6.20); Red Cell Distribution Width 18.6 % (11.5-14.5); White Blood Count 5.8 K/mm3 (4.5-10.0)
[2025-02-09 06:47] LABS: Anisocytosis 1+; Hypochromasia 1+; Platelet Estimate Adequate (Adequate); Schistocytes None Seen
[2025-02-09 08:04] LABS: Glucose Point of Care 154 mg/dl (65-105)
[2025-02-09] MEDS: UMECLIDINIUM BROMIDE 62.5 MCG ELLIPTA 1 PUFF INHALATION (08:38)
[2025-02-09] MEDS: FLUTICASONE/SALMETEROL 115-21 MCG INHALER 1 PUFF 2 PUFF INHALATION ×2 (08:38→20:00)
--- NOTE | 2025-02-09 09:39 | PM.IMPN ---
Progress Note: A&P Assessment and Plan (1) Low hemoglobin: Code(s): D64.9 - Anemia, unspecified Status: Acute Assessment and Plan: Came to the ED for weakness. Pt reports hx of anemia but never having to get a blood transfusion. -Hgb 5.4 in the ED, 1 unit PRBC given -Repeat hgb 02/06 AM 6.5, additional 1 unit PRBCs given while inpt, repeat hgb 8.9 02/07: -H/H 02/07 AM 8.5/28.1 -Consulting GI today for potential causes -->Per GI: EGD and cscope on 02/10 due to Plavix to further investigate 02/08: -H/H 02/07 AM 8.3/27.4 -Continue on with plan for EGD and cscope 02/10 due to Plavix to further investigate blood loss 02/09: -H/H 8.6/29.2 -Continue on with plan for EGD and cscope tomorrow due to Plavix to further investigate blood loss (2) Anemia: Code(s): D64.9 - Anemia, unspecified Status: Acute Assessment and Plan: See above (3) Diabetes: Code(s): E11.9 - Type 2 diabetes mellitus without complications Status: Acute Assessment and Plan: AccuChecks ACHS, sliding scale, and hypoglycemic order sets placed -Restarted home oral meds -Pt usually takes lispro 4units pre prandial & 10 Lantus PM -Will continue to monitor labs and POC sugars 02/07: -Increased sliding scale to moderate dosing and started pt on 8units of lantus for PM (normally takes 10units at home) due to pt elevated fasting and Pre prandial readings. -Ordered A1c today, pending 02/08: Discussed with him today his A1c results of 5.7 and how they were on the low end for his age, he reports that he has been on insulin for awhile but not metformin because he is allergic. Plan to f/u with his PCP regarding his glycemic index. Continue with POC blood sugar checks and daily AM CMPs. 02/09: When pt starts NPO at [place], also to start LR at 75 ml/hr, continue insulin tonight (4) COPD (chronic obstructive pulmonary disease): Code(s): J44.9 - Chronic obstructive pulmonary disease, unspecified Status: Acute Assessment and Plan: Continue home inhalers, denies issues breathing (5) Atrial fibrillation: Code(s): I48.91 - Unspecified atrial fibrillation Status: Acute Assessment and Plan: 02/07: Plavix and Pradexa held today for GI consult / work-up NSR via EKG in ED, continue to monitor 02/09: Pending EGD and cscope tomorrow, will take their recs for restarting Plavix & Pradexa post procedure. (6) HTN (hypertension): Code(s): I10 - Essential (primary) hypertension Status: Acute Assessment and Plan: Restarted home meds: -Amlodipine 5mg -Coreg 25mg -Losartan 100mg (7) CVA, old, monoplegia upper limb: Status: Acute Assessment and Plan: Plavix and Pradexa held 02/07 for GI consult / work-up LUE weakness, L facial droop, and slurred speech at baseline Plan Continue to trend AM labs, POC BS, and continued plan for EGD and cscope 02/10 Subjective Date/time seen: 02/09/25 1134 Interval history: Per ED provider: Patient is 69-year-old male who presents to the ER with complaints of difficulty speaking, tremors, and weakness. He reports his symptoms have been going on for approximately 1 week. Patient reports he had back surgery about 7 weeks ago and has been living ever care for rehabilitation. He denies any pain at this time. Patient endorses a history AFib, COPD, diabetes, high blood pressure, recent laminectomy, and is on blood thinners. He denies any recent fevers, new medications, or nausea/vomiting. 02/06: Pt drowsy and resting in bed at time of my visit. Pt wakes to verbal stimuli. Pt denies any acute sx other than weakness but reports that it is better. Pt has received x2 units of PRBC so far, awaiting repeat hgb level. We talked thoroughly about his medical hx and CVA deficits. He reports that he ambulates normally at home with a walker. Pt reports having a laminectomy x7 weeks ago and currently resides at [facility]. Plans to go back to this [facility], PT/OT placed today incase needing to go elsewhere. 02/07: Pt up and in the chair today looking much better today, engaging more in conversation. Pt states that he was feeling unwell yesterday and today he is feeling much better. He does report to me that he has been having black stools at home x 1 week with progressive weakness. I updated him that these could be sx of blood loss. I did update him on the plan for GI consult with their plan being EGD and cscope, pt agreeable with plan and is encouraged that we will potentially have an answer for his low hgb. Plan to continue with therapy and daily lab draws. 02/08: Pt reports today that he is continuing to feel well, no more blood/tarry black stools and/or abd pain. Discussed with him today his A1c results and how they were on the low end for his age, he reports that he has been on insulin for awhile but not metformin because he is allergic. Plan to f/u with his PCP regarding his glycemic index. Reiterated the plan for GI w/u Monday, pt agreeable with the plan. 02/09: Pt reports today that he is continuing to feel well, no more blood/tarry black stools and/or abd pain. Reiterated the plan for EGD and Cscope tomorrow with bowel prep starting today, pt agreeable with plan. Review of Systems Review of Systems: All systems reviewed & are unremarkable except as noted in HPI and below Exam Const: General: comfortable and no acute distress Other: Pt sitting up in chair today HENMT: Face/Nose/Sinus: Normal nares present Mouth: Yes moist mucous membranes Eyes: General: appearance normal, both eyes and all related structures Sclera: sclerae normal Neck: Neck: supple and no JVD Carotids: no bruits Resp: Effort & Inspection: normal respiratory effort Auscultation: clear to auscultation bilaterally Cardio: Rate: regular rate Rhythm: regular rhythm GI: Inspection: non-distended Auscultation: normal bowel sounds Skin: General skin exam: normal color and no rashes or lesions noted Wounds: no wounds Neuro: Other: Alert. Garbled speech, mild L facial droop, LUE and hand contracted with minimal to no movement of LUE. Hand with 2/5 strength, RUE tremulous (ALL BASELINE) Extrem: Other: LUE an hand contracture Psych: Mental Status: mental status grossly normal Affect: normal affect Objective Data Vital Signs Vital Signs: Vital Signs - 24 hr 02/08/25 09:46 02/08/25 12:00 02/08/25 12:00 Temperature Pulse Rate 82 64 65 Respiratory Rate 16 Blood Pressure 116/59 L Pulse Oximetry 100 Oxygen Delivery 02/08/25 16:00 02/08/25 16:00 02/08/25 20:00 Temperature 98.2 F Pulse Rate 66 65 66 Respiratory Rate 18 Blood Pressure 109/56 L 127/57 L Pulse Oximetry 98 99 Oxygen Delivery 02/08/25 20:00 02/08/25 20:00 02/08/25 20:58 Temperature Pulse Rate 69 65 Respiratory Rate Blood Pressure Pulse Oximetry Oxygen Delivery Room Air 02/08/25 21:17 02/09/25 00:00 02/09/25 00:00 Temperature 97.6 F Pulse Rate 60 58 L Respiratory Rate 18 Blood Pressure 91/44 L Pulse Oximetry 98 100 Oxygen Delivery Room Air 02/09/25 01:04 02/09/25 04:00 02/09/25 04:00 Temperature 98.1 F Pulse Rate 65 64 Respiratory Rate 18 Blood Pressure 100/58 L 126/50 L Pulse Oximetry 99 Oxygen Delivery 02/09/25 08:00 02/09/25 08:38 Temperature 97.9 F Pulse Rate 60 Respiratory Rate 16 Blood Pressure 113/54 L Pulse Oximetry 97 98 Oxygen Delivery Room Air Intake/Output Intake/Output: Intake & Output 02/06/25 02/07/25 02/08/25 02/09/25 23:59 23:59 23:59 23:59 Intake Total 2078 1660 1800 Output Total 3700 1050 450 Balance -1167 884 2623 Meds/Results Medications: Active Medications Generic Name Dose Route Start Last Admin Trade Name Freq PRN Reason Stop Dose Admin Acetaminophen 650 mg 02/06/25 14:02 02/06/25 16:53 Acetaminophen 325 Mg Tablet PO 650 mg Q6H PRN Administration fever or pain 1-3 Albuterol 2 puff 02/06/25 14:02 Albuterol Sulfate (*Sp) Aerosol 1 Puff INHALATION Q6HRT PRN shortness of breath or wheezin Amlodipine Besylate 5 mg 02/07/25 09:00 02/08/25 09:47 Amlodipine Besylate 5 Mg Tablet PO 5 mg DAILY [facility]MI Administration Artificial Tears 1 drop 02/06/25 17:00 02/09/25 05:22 Artificial Tears Ophth Soln 15 Ml Bottle EACH EYE 1 drop Q4H [facility] Administration Atorvastatin Calcium 80 mg 02/06/25 18:00 02/08/25 17:34 Atorvastatin 40 Mg Tablet PO 80 mg QPM [facility] Administration Bisacodyl 10 mg 02/09/25 15:00 Bisacodyl 5 Mg Tablet Ec PO 02/09/25 21:01 1500,2100 [facility] Carvedilol 25 mg 02/06/25 21:00 02/08/25 20:58 Carvedilol 25 Mg Tablet PO 25 mg Q12HR [facility] Administration Clopidogrel Bisulfate 75 mg 02/07/25 09:00 Clopidogrel Bisulfate 75 Mg Tablet PO DAILY [facility] Dabigatran 150 mg 02/06/25 17:00 02/06/25 17:27 Dabigatran Etexilate 150 Mg Capsule PO 150 mg BID [facility] Administration Dextrose 12.5 gm 02/06/25 11:33 Dextrose 50% 25 Gm/50 Ml Syringe IV PUSH PRN PRN Hypoglycemia Protocol Docusate Sodium 100 mg 02/06/25 09:00 02/08/25 17:34 Docusate Sodium 100 Mg Capsule PO 100 mg BID [facility] Administration Duloxetine HCl 60 mg 02/07/25 09:00 02/08/25 09:48 Duloxetine Hcl 60 Mg Capsule.Dr PO 60 mg DAILY [facility] Administration Empagliflozin 10 mg 02/07/25 09:00 02/08/25 09:47 Empagliflozin 10 Mg Tablet BY MOUTH 10 mg DAILY [facility] Administration Ferrous Sulfate 325 mg 02/07/25 12:00 02/08/25 12:30 Ferrous Sulfate [address] BY MOUTH 325 mg DAILY@1200 [facility] Administration Glucagon 1 mg 02/06/25 11:33 Glucagon For Inj 1 Mg Vial IM PRN PRN Hypoglycemia Protocol Glucose 15 gm 02/06/25 11:33 Glucose Oral Gel 15 Gm Of Glucse In 37.5 Gm Tube PO PRN PRN Hypoglycemia Protocol Hydroxyzine HCl 25 mg 02/07/25 09:00 02/08/25 09:46 Hydroxyzine Hcl 25 Mg Tablet PO 25 mg DAILY [facility] Administration Dextrose 1,000 mls @ 100 mls/hr 02/06/25 11:33 Dextrose 5% 1,000 Ml IVPB PRN PRN Hypoglycemia Protocol Insulin Aspart 3 - 6 units 02/07/25 17:00 02/08/25 17:35 Insulin Aspart (*Bkc) 100 Units/Ml SUB-Q Not Given TIDWM [facility] Protocol Insulin Glargine 8 units 02/07/25 18:00 02/08/25 17:42 Insulin Glargine (*Bkc) 100 Units/Ml SUB-Q 8 units QPM [facility] Administration Lactulose 20 gm 02/07/25 09:00 02/08/25 09:45 Lactulose 20 Gm/30 Ml Udc PO 20 gm DAILY [facility] Administration Losartan Potassium 100 mg 02/07/25 09:00 02/08/25 09:47 Losartan Potassium 100 Mg Tablet PO 100 mg DAILY [facility] Administration Magnesium Citrate 180 ml 02/09/25 22:00 Magnesium Citrate 300 Ml Btl PO 02/09/25 22:01 ONCE ONE Methocarbamol 750 mg 02/07/25 05:40 Methocarbamol 750 Mg Tablet PO Q6H PRN Muscle Spasm Multivitamins/Calcium 1 tablet 02/07/25 09:00 02/08/25 09:47 Therapeutic Multivitamins/Minerals Tab (*Bkc) PO 1 tablet DAILY [facility] Administration Nicotine 1 patch 02/06/25 14:15 02/08/25 09:46 Nicotine (*Pbkc) 14 Mg Patch TRANSDERM 1 patch DAILY [facility] Administration Ondansetron HCl 4 mg 02/06/25 07:27 Ondansetron Inj 4 Mg/2 Ml Vial IV PUSH Q6H PRN Nausea And Vomiting Oxycodone HCl 10 mg 02/06/25 18:31 02/09/25 05:21 Oxycodone Hcl (*Crx) 5 Mg Tab Ir PO 10 mg Q6H PRN Administration Pain Rated 6 or Greater Pantoprazole Sodium 40 mg 02/07/25 09:00 02/08/25 09:47 Pantoprazole 40 Mg Tablet PO 40 mg QAM [facility] Administration Polyethylene Glycol 17 gm 02/07/25 09:00 02/08/25 09:48 Polyethylene Glycol 3350 17 Gm Powd.Pack PO Not Given DAILY [facility] Polyethylene Glycol 238 gm 02/09/25 22:00 Polyethylene Glycol 3350 238 Gm Bottle PO 02/09/25 22:01 ONCE ONE Pregabalin 200 mg 02/06/25 17:00 02/08/25 17:33 Pregabalin (*Crx) 50 Mg Capsule PO 200 mg BID [facility] Administration Fluticasone/Salmeterol 2 puff 02/06/25 20:00 02/09/25 08:38 Fluticasone/Salmeterol 115-21 Mcg Inhaler 1 Puff INHALATION 2 puff Q12HRT [facility] Administration Senna/Docusate Sodium 1 tab 02/06/25 17:00 02/08/25 17:34 Senna/Docusate Sodium Tablet PO 1 tab BID [facility] Administration Umeclidinium [place] 1 puff 02/07/25 08:00 02/09/25 08:38 Umeclidinium [place] 62.5 Mcg Ellipta INHALATION 1 puff DAILYRT [facility] Administration Radiology Results: ITS Impressions Head CT 02/05/25 17:45 IMPRESSION: No acute intracranial findings. Chest X-Ray 02/05/25 17:58 IMPRESSION: No acute cardiopulmonary pathology. Labs Labs: Laboratory Results - last 24 hr 02/08/25 02/08/25 02/08/25 12:06 16:41 20:37 WBC RBC Hgb Hct MCV MCH MCHC RDW Plt Count MPV Immature Gran % (Auto) Neut % (Auto) Lymph % (Auto) Jay % (Auto) Eos % (Auto) Baso % (Auto) Lymph # (Auto) [place] # (Auto) Eos # (Auto) Baso # (Auto) Abs Immat Gran (auto) Absolute Neuts (auto) Absolute Nucleated RBC Band Neutrophils % Nucleated RBC % Platelet Estimate Hypochromasia Anisocytosis Schistocytes Sodium Potassium Chloride Carbon Dioxide Anion Gap BUN Creatinine Estim Creat Clear Calc Estimated GFR Glucose POC Capillary Glucose 209 H 144 H 229 H Calcium Total Bilirubin AST ALT Alkaline Phosphatase Total Protein Albumin 02/09/25 02/09/25 05:24 07:47 WBC 5.8 RBC 3.28 L Hgb 8.6 L Hct 29.2 L MCV 89.0 MCH 26.2 MCHC 29.5 L RDW 18.6 H Plt Count 206 MPV 10.8 H Immature Gran % (Auto) 0.3 Neut % (Auto) 62.4 Lymph % (Auto) 18.4 Jay % (Auto) 15.6 H Eos % (Auto) 2.8 Baso % (Auto) 0.5 Lymph # (Auto) 1.06 Jay # (Auto) 0.9 H Eos # (Auto) 0.2 Baso # (Auto) 0.0 Abs Immat Gran (auto) 0.02 Absolute Neuts (auto) 3.6 Absolute Nucleated RBC 0.020 H Band Neutrophils % Not Reportable Nucleated RBC % 0.3 H Platelet Estimate Adequate Hypochromasia 1+ Anisocytosis 1+ Schistocytes None seen Sodium 138 Potassium 4.4 Chloride 106 Carbon Dioxide 26 Anion Gap 6 BUN 19 Creatinine 1.02 Estim Creat Clear Calc 54 Estimated GFR > 60 Glucose 161 H POC Capillary Glucose 154 H Calcium 8.4 Total Bilirubin 0.2 AST 25 ALT 14 Alkaline Phosphatase 150 H Total Protein 5.9 L Albumin 3.2 L Quality VTE Prophylaxis VTE prophylaxis: mechanical ordered
[2025-02-09] MEDS: NICOTINE (*PBKC) 14 MG PATCH 1 PATCH TRANSDERM (11:43)
[2025-02-09] MEDS: LACTULOSE 20 GM/30 ML UDC PO (11:43)
[2025-02-09] MEDS: polyethylene glycoL 3350 17 GM POWD.PACK PO (11:43)
[2025-02-09] MEDS: PREGABALIN (*CRX) 50 MG CAPSULE 200 MG PO ×2 (11:45→17:02)
[2025-02-09] MEDS: carvediloL 25 MG TABLET PO ×2 (11:45→20:38)
[2025-02-09] MEDS: LOSARTAN POTASSIUM 100 MG TABLET PO (11:45)
[2025-02-09] MEDS: THERAPEUTIC MULTIVITAMINS/MINERALS TAB (*BKC) 1 TABLET PO (11:46)
[2025-02-09] MEDS: amLODIPine BESYLATE 5 MG TABLET PO (11:46)
[2025-02-09] MEDS: PANTOPRAZOLE 40 MG TABLET PO (11:46)
[2025-02-09] MEDS: EMPAGLIFLOZIN 10 MG TABLET BY MOUTH (11:47)
[2025-02-09] MEDS: DOCUSATE SODIUM 100 MG CAPSULE PO ×2 (11:47→17:02)
[2025-02-09] MEDS: hydrOXYzine HCL 25 MG TABLET PO (11:47)
[2025-02-09] MEDS: DULoxetine HCL 60 MG CAPSULE.DR PO (11:47)
[2025-02-09] MEDS: SENNA/DOCUSATE SODIUM TABLET 1 TAB PO ×2 (11:47→17:02)
[2025-02-09] MEDS: FERROUS SULFATE 325 MG TABLET DR BY MOUTH (11:54)
[2025-02-09 12:00] LABS: Glucose Point of Care 150 mg/dl (65-105)
--- NOTE | 2025-02-09 13:57 | P.PNGI_ITS ---
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 - care home (current) use of anticoagulants Status: Acute Subjective Date/time seen: 02/09/25 13:57 Interval history: no changes, he is comfortable now sitting on toilet Review of Systems Review of Systems: All systems reviewed & are unremarkable except as noted in HPI and below Exam Const: General: comfortable and no acute distress HENMT: Face/Nose/Sinus: Normal nares present Mouth: Yes moist mucous membranes Eyes: General: appearance normal, both eyes and all related structures Neck: Neck: supple Resp: Effort & Inspection: normal respiratory effort Auscultation: clear to auscultation bilaterally Cardio: Rate: regular rate Rhythm: regular rhythm GI: Inspection: non-distended Auscultation: normal bowel sounds Skin: General skin exam: normal color and no rashes or lesions noted Extrem: Other: LUE an hand contracture Psych: Affect: normal affect Objective Data Vital Signs Vital Signs: Vital Signs - 24 hr 02/08/25 16:00 02/08/25 16:00 02/08/25 20:00 Temperature 98.2 F Pulse Rate 66 65 66 Respiratory Rate 18 Blood Pressure 109/56 L 127/57 L Pulse Oximetry 98 99 Oxygen Delivery 02/08/25 20:00 02/08/25 20:00 02/08/25 20:58 Temperature Pulse Rate 69 65 Respiratory Rate Blood Pressure Pulse Oximetry Oxygen Delivery Room Air 02/08/25 21:17 02/09/25 00:00 02/09/25 00:00 Temperature 97.6 F Pulse Rate 60 58 L Respiratory Rate 18 Blood Pressure 91/44 L Pulse Oximetry 98 100 Oxygen Delivery Room Air 02/09/25 01:04 02/09/25 04:00 02/09/25 04:00 Temperature 98.1 F Pulse Rate 65 64 Respiratory Rate 18 Blood Pressure 100/58 L 126/50 L Pulse Oximetry 99 Oxygen Delivery 02/09/25 08:00 02/09/25 08:38 02/09/25 11:45 Temperature 97.9 F Pulse Rate 60 83 Respiratory Rate 16 Blood Pressure 113/54 L Pulse Oximetry 97 98 Oxygen Delivery Room Air 02/09/25 12:00 Temperature Pulse Rate 65 Respiratory Rate 16 Blood Pressure 121/56 L Pulse Oximetry 97 Oxygen Delivery Intake/Output Intake/Output: Intake & Output 02/06/25 02/07/25 02/08/25 02/09/25 23:59 23:59 23:59 23:59 Intake Total 2078 1660 1800 650 Output Total 3700 1050 450 Balance -7960 291 0396 650 Meds/Results Medications: Active Medications Generic Name Dose Route Start Last Admin Trade Name Freq PRN Reason Stop Dose Admin Acetaminophen 650 mg 02/06/25 14:02 02/06/25 16:53 Acetaminophen 325 Mg Tablet PO 650 mg Q6H PRN Administration fever or pain 1-3 Albuterol 2 puff 02/06/25 14:02 Albuterol Sulfate (*Sp) Aerosol 1 Puff INHALATION Q6HRT PRN shortness of breath or wheezin Amlodipine Besylate 5 mg 02/07/25 09:00 02/09/25 11:46 Amlodipine Besylate 5 Mg Tablet PO 5 mg DAILY [facility] Administration Artificial Tears 1 drop 02/06/25 17:00 02/09/25 11:47 Artificial Tears Ophth Soln 15 Ml Bottle EACH EYE 1 drop Q4H [facility] Administration Atorvastatin Calcium 80 mg 02/06/25 18:00 02/08/25 17:34 Atorvastatin 40 Mg Tablet PO 80 mg QPM [facility] Administration Bisacodyl 10 mg 02/09/25 15:00 Bisacodyl 5 Mg Tablet Ec PO 02/09/25 21:01 1500,2100 [facility] Carvedilol 25 mg 02/06/25 21:00 02/09/25 11:45 Carvedilol 25 Mg Tablet PO 25 mg Q12HR [facility] Administration Clopidogrel Bisulfate 75 mg 02/07/25 09:00 Clopidogrel Bisulfate 75 Mg Tablet PO DAILY [facility] Dabigatran 150 mg 02/06/25 17:00 02/06/25 17:27 Dabigatran Etexilate 150 Mg Capsule PO 150 mg BID [facility] Administration Dextrose 12.5 gm 02/06/25 11:33 Dextrose 50% 25 Gm/50 Ml Syringe IV PUSH PRN PRN Hypoglycemia Protocol Docusate Sodium 100 mg 02/06/25 09:00 02/09/25 11:47 Docusate Sodium 100 Mg Capsule PO 100 mg BID [facility] Administration Duloxetine HCl 60 mg 02/07/25 09:00 02/09/25 11:47 Duloxetine Hcl 60 Mg Capsule.Dr PO 60 mg DAILY [facility] Administration Empagliflozin 10 mg 02/07/25 09:00 02/09/25 11:47 Empagliflozin 10 Mg Tablet BY MOUTH 10 mg DAILY [facility] Administration Ferrous Sulfate 325 mg 02/07/25 12:00 02/09/25 11:54 Ferrous Sulfate [address] BY MOUTH 325 mg DAILY@1200 [facility] Administration Glucagon 1 mg 02/06/25 11:33 Glucagon For Inj 1 Mg Vial IM PRN PRN Hypoglycemia Protocol Glucose 15 gm 02/06/25 11:33 Glucose Oral Gel 15 Gm Of Glucse In 37.5 Gm Tube PO PRN PRN Hypoglycemia Protocol Hydroxyzine HCl 25 mg 02/07/25 09:00 02/09/25 11:47 Hydroxyzine Hcl 25 Mg Tablet PO 25 mg DAILY [facility] Administration Dextrose 1,000 mls @ 100 mls/hr 02/06/25 11:33 Dextrose 5% 1,000 Ml IVPB PRN PRN Hypoglycemia Protocol Insulin Aspart 3 - 6 units 02/07/25 17:00 02/09/25 11:47 Insulin Aspart (*Bkc) 100 Units/Ml SUB-Q Not Given TIDWM [facility] Protocol Insulin Glargine 8 units 02/07/25 18:00 02/08/25 17:42 Insulin Glargine (*Bkc) 100 Units/Ml SUB-Q 8 units QPM [facility] Administration Lactulose 20 gm 02/07/25 09:00 02/09/25 11:43 Lactulose 20 Gm/30 Ml Udc PO 20 gm DAILY [facility] Administration Losartan Potassium 100 mg 02/07/25 09:00 02/09/25 11:45 Losartan Potassium 100 Mg Tablet PO 100 mg DAILY [facility] Administration Magnesium Citrate 180 ml 02/09/25 22:00 Magnesium Citrate 300 Ml Btl PO 02/09/25 22:01 ONCE ONE Methocarbamol 750 mg 02/07/25 05:40 Methocarbamol 750 Mg Tablet PO Q6H PRN Muscle Spasm Multivitamins/Calcium 1 tablet 02/07/25 09:00 02/09/25 11:46 Therapeutic Multivitamins/Minerals Tab (*Bkc) PO 1 tablet DAILY [facility] Administration Nicotine 1 patch 02/06/25 14:15 02/09/25 11:43 Nicotine (*Pbkc) 14 Mg Patch TRANSDERM 1 patch DAILY [facility] Administration Ondansetron HCl 4 mg 02/06/25 07:27 Ondansetron Inj 4 Mg/2 Ml Vial IV PUSH Q6H PRN Nausea And Vomiting Oxycodone HCl 10 mg 02/06/25 18:31 02/09/25 05:21 Oxycodone Hcl (*Crx) 5 Mg Tab Ir PO 10 mg Q6H PRN Administration Pain Rated 6 or Greater Pantoprazole Sodium 40 mg 02/07/25 09:00 02/09/25 11:46 Pantoprazole 40 Mg Tablet PO 40 mg QAM [facility] Administration Polyethylene Glycol 17 gm 02/07/25 09:00 02/09/25 11:43 Polyethylene Glycol 3350 17 Gm Powd.Pack PO 17 gm DAILY [facility] Administration Polyethylene Glycol 238 gm 02/09/25 22:00 Polyethylene Glycol 3350 238 Gm Bottle PO 02/09/25 22:01 ONCE ONE Pregabalin 200 mg 02/06/25 17:00 02/09/25 11:45 Pregabalin (*Crx) 50 Mg Capsule PO 200 mg BID [facility] Administration Fluticasone/Salmeterol 2 puff 02/06/25 20:00 02/09/25 08:38 Fluticasone/Salmeterol 115-21 Mcg Inhaler 1 Puff INHALATION 2 puff Q12HRT [facility] Administration Senna/Docusate Sodium 1 tab 02/06/25 17:00 02/09/25 11:47 Senna/Docusate Sodium Tablet PO 1 tab BID [facility] Administration Umeclidinium [place] 1 puff 02/07/25 08:00 02/09/25 08:38 Umeclidinium [place] 62.5 Mcg Ellipta INHALATION 1 puff DAILYRT [facility] Administration Radiology Results: ITS Impressions Head CT 02/05/25 17:45 IMPRESSION: No acute intracranial findings. Chest X-Ray 02/05/25 17:58 IMPRESSION: No acute cardiopulmonary pathology. Labs Labs: Laboratory Results - last 24 hr 02/08/25 02/08/25 02/09/25 16:41 20:37 05:24 WBC 5.8 RBC 3.28 L Hgb 8.6 L Hct 29.2 L MCV 89.0 MCH 26.2 MCHC 29.5 L RDW 18.6 H Plt Count 206 MPV 10.8 H Immature Gran % (Auto) 0.3 Neut % (Auto) 62.4 Lymph % (Auto) 18.4 [place] % (Auto) 15.6 H Eos % (Auto) 2.8 Baso % (Auto) 0.5 Lymph # (Auto) 1.06 [place] # (Auto) 0.9 H Eos # (Auto) 0.2 Baso # (Auto) 0.0 Abs Immat Gran (auto) 0.02 Absolute Neuts (auto) 3.6 Absolute Nucleated RBC 0.020 H Band Neutrophils % Not Reportable Nucleated RBC % 0.3 H Platelet Estimate Adequate Hypochromasia 1+ Anisocytosis 1+ Schistocytes None seen Sodium 138 Potassium 4.4 Chloride 106 Carbon Dioxide 26 Anion Gap 6 BUN 19 Creatinine 1.02 Estim Creat Clear Calc 54 Estimated GFR > 60 Glucose 161 H POC Capillary Glucose 144 H 229 H Calcium 8.4 Total Bilirubin 0.2 AST 25 ALT 14 Alkaline Phosphatase 150 H Total Protein 5.9 L Albumin 3.2 L 02/09/25 02/09/25 07:47 11:46 WBC RBC Hgb Hct MCV MCH MCHC RDW Plt Count MPV Immature Gran % (Auto) Neut % (Auto) Lymph % (Auto) [place] % (Auto) Eos % (Auto) Baso % (Auto) Lymph # (Auto) [place] # (Auto) Eos # (Auto) Baso # (Auto) Abs Immat Gran (auto) Absolute Neuts (auto) Absolute Nucleated RBC Band Neutrophils % Nucleated RBC % Platelet Estimate Hypochromasia Anisocytosis Schistocytes Sodium Potassium Chloride Carbon Dioxide Anion Gap BUN Creatinine Estim Creat Clear Calc Estimated GFR Glucose POC Capillary Glucose 154 H 150 H Calcium Total Bilirubin AST ALT Alkaline Phosphatase Total Protein Albumin
[2025-02-09] MEDS: BISACODYL 5 MG TABLET EC 10 MG PO ×2 (15:14→20:38)
[2025-02-09 17:02] LABS: Glucose Point of Care 122 mg/dl (65-105)
[2025-02-09] MEDS: INSULIN GLARGINE (*BKC) 100 UNITS/ML 8 UNITS SUB-Q (17:07)
[2025-02-09] MEDS: ATORVASTATIN 40 MG TABLET 80 MG PO (17:07)
[2025-02-09] MEDS: polyethylene glycoL 3350 238 GM BOTTLE PO (20:37)
[2025-02-09] MEDS: MAGNESIUM CITRATE 300 ML BTL 180 ML PO (20:37)
[2025-02-09] MEDS: LACTATED RINGERS 1,000 ML 75 ML IV CONT (23:52)
[2025-02-10] VITALS (15 sets, daily range): BP systolic 75–154; BP diastolic 31–68; PULSE 53–78; RESP 18–20; TEMP 36.2–36.7; O2SAT 96–100
[2025-02-10] MEDS: oxyCODONE HCL (*CRX) 5 MG TAB IR 10 MG PO ×3 (04:21→20:58)
[2025-02-10 05:37] LABS: Basophils Percent Auto 0.8 % (0.2-1.2); Eosinophils Absolute Auto 0.1 K/mm3 (0-0.3); Eosinophils Percent Auto 2.7 % (0-4.4); Hematocrit 33.1 % (42.0-52.0); Hemoglobin 9.4 g/dL (14.0-18.0); Immature Granulocyte Absolute 0.03 K/mm3 (0.00-0.031); Immature Granulocyte Percent A 0.6 % (0-0.5); Lymphocytes Absolute Auto 0.65 K/mm3 (0.9-3.2); Lymphocytes Percent Auto 13.7 % (18.3-44.2); Mean Corpuscular HGB Conc 28.4 g/dl (32-36); Mean Corpuscular Hemoglobin 26.4 pg (26-34); Mean Platelet Volume 11.4 fl (7.4-10.4); Monocytes Absolute Auto 0.7 K/mm3 (0.1-0.6); Monocytes Percent Auto 15.4 % (2.6-8.5); Neutrophils Absolute Auto 3.2 K/mm3 (1.3-6.7); Neutrophils Percent Auto 66.8 % (45.5-73.1); Platelet Count Result 201 k/mm3 (150-375); Red Blood Count 3.56 M/mm3 (4.6-6.20); Red Cell Distribution Width 19.5 % (11.5-14.5); White Blood Count 4.8 K/mm3 (4.5-10.0)
[2025-02-10 05:54] LABS: Alanine Aminotransferase 40 U/L (6-50); Albumin Level 3.4 g/dL (3.5-5.1); Alkaline Phosphatase 124 U/L (38-126); Anion Gap 7 mmol/L (4-12); Aspartate Amino Transferase 91 U/L (17-59); Bilirubin,Total 0.4 mg/dL (0.2-1.3); Blood Urea Nitrogen 14 mg/dL (9-20); Calcium 8.3 mg/dL (8.4-10.2); Carbon Dioxide 23 mmol/L (22-30); Chloride 106 mmol/L (98-107); Estimated CRCL calculation 60 ml/min; Estimated Glomerular Filt Rate > 60; Glucose 123 mg/dL (65-110); Potassium 4.4 mmol/L (3.4-5.0); Sodium 136 mmol/L (137-145); Total Protein 6.1 g/dL (6.3-8.2)
[2025-02-10 06:30] LABS: Glucose Point of Care 168 mg/dl (65-105)
[2025-02-10 06:31] LABS: Anisocytosis 1+; Hypochromasia 1+; Platelet Estimate Adequate (Adequate); Schistocytes None Seen
[2025-02-10] MEDS: FLUTICASONE/SALMETEROL 115-21 MCG INHALER 1 PUFF 2 PUFF INHALATION ×2 (08:05→19:48)
[2025-02-10] MEDS: UMECLIDINIUM BROMIDE 62.5 MCG ELLIPTA 1 PUFF INHALATION (08:05)
--- NOTE | 2025-02-10 08:33 | PM.IMPN ---
Progress Note: A&P Assessment and Plan (1) Low hemoglobin: Code(s): D64.9 - Anemia, unspecified Status: Acute Assessment and Plan: Came to the ED for weakness. Pt reports hx of anemia but never having to get a blood transfusion. -Hgb 5.4 in the ED, 1 unit PRBC given -Repeat hgb 02/06 AM 6.5, additional 1 unit PRBCs given while inpt, repeat hgb 8.9 02/07: -H/H 02/07 AM 8.5/28.1 -Consulting GI today for potential causes -->Per GI: EGD and cscope on 02/10 due to Plavix to further investigate 02/08: -H/H 02/07 AM 8.3/27.4 -Continue on with plan for EGD and cscope 02/10 due to Plavix to further investigate blood loss 02/09: -H/H 8.6/29.2 -Continue on with plan for EGD and cscope tomorrow due to Plavix to further investigate blood loss 02/10: -H/H 9.4/33.1 -Was on IVF starting at [place] for NPO status -Continue on with plan for EGD and cscope today due to Plavix to further investigate blood loss (2) Anemia: Code(s): D64.9 - Anemia, unspecified Status: Acute Assessment and Plan: See above (3) Diabetes: Code(s): E11.9 - Type 2 diabetes mellitus without complications Status: Acute Assessment and Plan: AccuChecks ACHS, sliding scale, and hypoglycemic order sets placed -Restarted home oral meds -Pt usually takes lispro 4units pre prandial & 10 Lantus PM -Will continue to monitor labs and POC sugars 02/07: -Increased sliding scale to moderate dosing and started pt on 8units of lantus for PM (normally takes 10units at home) due to pt elevated fasting and Pre prandial readings. -Ordered A1c today, pending 02/08: Discussed with him today his A1c results of 5.7 and how they were on the low end for his age, he reports that he has been on insulin for awhile but not metformin because he is allergic. Plan to f/u with his PCP regarding his glycemic index. Continue with POC blood sugar checks and daily AM CMPs. 02/09: When pt starts NPO at [place], also to start LR at 75 ml/hr, continue insulin tonight 02/10: Stable fasting BS this AM. Continue IVF until s/p EGD and cscope. (4) COPD (chronic obstructive pulmonary disease): Code(s): J44.9 - Chronic obstructive pulmonary disease, unspecified Status: Acute Assessment and Plan: Continue home inhalers, denies issues breathing (5) Atrial fibrillation: Code(s): I48.91 - Unspecified atrial fibrillation Status: Acute Assessment and Plan: 02/07: Plavix and Pradexa held today for GI consult / work-up NSR via EKG in ED, continue to monitor 02/09: Pending EGD and cscope tomorrow, will take their recs for restarting Plavix & Pradexa post procedure. 02/10: Pending EGD and cscope today, will take GI recs for restarting Plavix & Pradexa post procedure. (6) HTN (hypertension): Code(s): I10 - Essential (primary) hypertension Status: Acute Assessment and Plan: Restarted home meds: -Amlodipine 5mg -Coreg 25mg -Losartan 100mg (7) CVA, old, monoplegia upper limb: Status: Acute Assessment and Plan: Plavix and Pradexa held 02/07 for GI consult / work-up LUE weakness, L facial droop, and slurred speech at baseline Plan Continue to trend AM labs, POC BS, and continued plan for EGD and cscope 02/10, pending results and GI plan Subjective Date/time seen: 02/10/25 0933 Interval history: Per ED provider: Patient is 69-year-old male who presents to the ER with complaints of difficulty speaking, tremors, and weakness. He reports his symptoms have been going on for approximately 1 week. Patient reports he had back surgery about 7 weeks ago and has been living ever care for rehabilitation. He denies any pain at this time. Patient endorses a history AFib, COPD, diabetes, high blood pressure, recent laminectomy, and is on blood thinners. He denies any recent fevers, new medications, or nausea/vomiting. 02/06: Pt drowsy and resting in bed at time of my visit. Pt wakes to verbal stimuli. Pt denies any acute sx other than weakness but reports that it is better. Pt has received x2 units of PRBC so far, awaiting repeat hgb level. We talked thoroughly about his medical hx and CVA deficits. He reports that he ambulates normally at home with a walker. Pt reports having a laminectomy x7 weeks ago and currently resides at [facility]. Plans to go back to this [place], PT/OT placed today incase needing to go elsewhere. 02/07: Pt up and in the chair today looking much better today, engaging more in conversation. Pt states that he was feeling unwell yesterday and today he is feeling much better. He does report to me that he has been having black stools at home x 1 week with progressive weakness. I updated him that these could be sx of blood loss. I did update him on the plan for GI consult with their plan being EGD and cscope, pt agreeable with plan and is encouraged that we will potentially have an answer for his low hgb. Plan to continue with therapy and daily lab draws. 02/08: Pt reports today that he is continuing to feel well, no more blood/tarry black stools and/or abd pain. Discussed with him today his A1c results and how they were on the low end for his age, he reports that he has been on insulin for awhile but not metformin because he is allergic. Plan to f/u with his PCP regarding his glycemic index. Reiterated the plan for GI w/u Monday, pt agreeable with the plan. 02/09: Pt reports today that he is continuing to feel well, no more blood/tarry black stools and/or abd pain. Reiterated the plan for EGD and Cscope tomorrow with bowel prep starting today, pt agreeable with plan. 02/10: Pt reports today that he is continuing to feel well, no more blood/tarry black stools and/or abd pain. Reiterated the plan for EGD and Cscope today around 1600, pt agreeable with plan. Review of Systems Review of Systems: All systems reviewed & are unremarkable except as noted in HPI and below Exam Const: General: comfortable and no acute distress Other: Pt sitting up in chair today HENMT: Face/Nose/Sinus: Normal nares present Other: tacky mucus membranes Eyes: General: appearance normal, both eyes and all related structures Sclera: sclerae normal Neck: Neck: supple and no JVD Carotids: no bruits Resp: Effort & Inspection: normal respiratory effort Auscultation: clear to auscultation bilaterally Cardio: Rate: regular rate Rhythm: regular rhythm GI: Inspection: non-distended Auscultation: normal bowel sounds Skin: General skin exam: normal color and no rashes or lesions noted Wounds: no wounds Neuro: Other: Alert. Garbled speech, mild L facial droop, LUE and hand contracted with minimal to no movement of LUE. Hand with 2/5 strength, RUE tremulous (ALL BASELINE) Extrem: Other: LUE an hand contracture Psych: Mental Status: mental status grossly normal Affect: normal affect Objective Data Vital Signs Vital Signs: Vital Signs - 24 hr 02/09/25 08:38 02/09/25 11:45 02/09/25 12:00 Temperature Pulse Rate 83 65 Respiratory Rate 16 Blood Pressure 121/56 L Pulse Oximetry 98 97 Oxygen Delivery Room Air 02/09/25 12:00 02/09/25 16:00 02/09/25 16:00 Temperature Pulse Rate 61 59 L 60 Respiratory Rate Blood Pressure 126/59 L Pulse Oximetry 100 Oxygen Delivery 02/09/25 20:00 02/09/25 20:00 02/09/25 20:03 Temperature Pulse Rate 60 56 L Respiratory Rate 18 Blood Pressure Pulse Oximetry Oxygen Delivery Room Air 02/09/25 20:03 02/09/25 20:40 02/10/25 00:00 Temperature 97.5 F L Pulse Rate 55 L 53 L Respiratory Rate 20 Blood Pressure 119/58 L Pulse Oximetry 94 98 Oxygen Delivery Room Air 02/10/25 04:00 02/10/25 06:00 Temperature 97.4 F L Pulse Rate 67 62 Respiratory Rate 20 Blood Pressure 154/62 H Pulse Oximetry 99 Oxygen Delivery Intake/Output Intake/Output: Intake & Output 02/07/25 02/08/25 02/09/25 02/10/25 23:59 23:59 23:59 23:59 Intake Total 1660 1800 1989 Output Total 1050 450 600 Balance 610 1350 1989 -600 Meds/Results Medications: Active Medications Generic Name Dose Route Start Last Admin Trade Name Freq PRN Reason Stop Dose Admin Acetaminophen 650 mg 02/06/25 14:02 02/06/25 16:53 Acetaminophen 325 Mg Tablet PO 650 mg Q6H PRN Administration fever or pain 1-3 Albuterol 2 puff 02/06/25 14:02 Albuterol Sulfate (*Sp) Aerosol 1 Puff INHALATION Q6HRT PRN shortness of breath or wheezin Amlodipine Besylate 5 mg 02/07/25 09:00 02/09/25 11:46 Amlodipine Besylate 5 Mg Tablet PO 5 mg DAILY LAKSHMI Administration Artificial Tears 1 drop 02/06/25 17:00 02/10/25 04:23 Artificial Tears Ophth Soln 15 Ml Bottle EACH EYE Not Given Q4H LAKSHMI Atorvastatin Calcium 80 mg 02/06/25 18:00 02/09/25 17:07 Atorvastatin 40 Mg Tablet PO 80 mg QPM LAKSHMI Administration Carvedilol 25 mg 02/06/25 21:00 02/09/25 20:38 Carvedilol 25 Mg Tablet PO 25 mg Q12HR LAKSHMI Administration Clopidogrel Bisulfate 75 mg 02/07/25 09:00 Clopidogrel Bisulfate 75 Mg Tablet PO DAILY LAKSHMI Dabigatran 150 mg 02/06/25 17:00 02/06/25 17:27 Dabigatran Etexilate 150 Mg Capsule PO 150 mg BID LAKSHMI Administration Dextrose 12.5 gm 02/06/25 11:33 Dextrose 50% 25 Gm/50 Ml Syringe IV PUSH PRN PRN Hypoglycemia Protocol Docusate Sodium 100 mg 02/06/25 09:00 02/09/25 17:02 Docusate Sodium 100 Mg Capsule PO 100 mg BID LAKSHMI Administration Duloxetine HCl 60 mg 02/07/25 09:00 02/09/25 11:47 Duloxetine Hcl 60 Mg Capsule.Dr PO 60 mg DAILY LAKSHMI Administration Empagliflozin 10 mg 02/07/25 09:00 02/09/25 11:47 Empagliflozin 10 Mg Tablet BY MOUTH 10 mg DAILY LAKSHMI Administration Ferrous Sulfate 325 mg 02/07/25 12:00 02/09/25 11:54 Ferrous Sulfate [address] BY MOUTH 325 mg DAILY@1200 LAKSHMI Administration Glucagon 1 mg 02/06/25 11:33 Glucagon For Inj 1 Mg Vial IM PRN PRN Hypoglycemia Protocol Glucose 15 gm 02/06/25 11:33 Glucose Oral Gel 15 Gm Of Glucse In 37.5 Gm Tube PO PRN PRN Hypoglycemia Protocol Hydroxyzine HCl 25 mg 02/07/25 09:00 02/09/25 11:47 Hydroxyzine Hcl 25 Mg Tablet PO 25 mg DAILY LAKSHMI Administration Dextrose 1,000 mls @ 100 mls/hr 02/06/25 11:33 Dextrose 5% 1,000 Ml IVPB PRN PRN Hypoglycemia Protocol Lactated Ringer's 1,000 mls @ 75 mls/hr 02/10/25 00:00 02/09/25 23:52 Lr - Lactated Ringers Iv IV CONT 02/10/25 12:00 75 mls/hr .[id number] LAKSHMI Administration Insulin Aspart 3 - 6 units 02/07/25 17:00 02/09/25 17:05 Insulin Aspart (*Bkc) 100 Units/Ml SUB-Q Not Given TIDWM LAKSHMI Protocol Insulin Glargine 8 units 02/07/25 18:00 02/09/25 17:07 Insulin Glargine (*Bkc) 100 Units/Ml SUB-Q 8 units QPM LAKSHMI Administration Lactulose 20 gm 02/07/25 09:00 02/09/25 11:43 Lactulose 20 Gm/30 Ml Udc PO 20 gm DAILY LAKSHMI Administration Losartan Potassium 100 mg 02/07/25 09:00 02/09/25 11:45 Losartan Potassium 100 Mg Tablet PO 100 mg DAILY LAKSHMI Administration Methocarbamol 750 mg 02/07/25 05:40 Methocarbamol 750 Mg Tablet PO Q6H PRN Muscle Spasm Multivitamins/Calcium 1 tablet 02/07/25 09:00 02/09/25 11:46 Therapeutic Multivitamins/Minerals Tab (*Bkc) PO 1 tablet DAILY LAKSHMI Administration Nicotine 1 patch 02/06/25 14:15 02/09/25 11:43 Nicotine (*Pbkc) 14 Mg Patch TRANSDERM 1 patch DAILY LAKSHMI Administration Ondansetron HCl 4 mg 02/06/25 07:27 Ondansetron Inj 4 Mg/2 Ml Vial IV PUSH Q6H PRN Nausea And Vomiting Oxycodone HCl 10 mg 02/06/25 18:31 02/10/25 04:21 Oxycodone Hcl (*Crx) 5 Mg Tab Ir PO 10 mg Q6H PRN Administration Pain Rated 6 or Greater Pantoprazole Sodium 40 mg 02/07/25 09:00 02/09/25 11:46 Pantoprazole 40 Mg Tablet PO 40 mg QAM LAKSHMI Administration Polyethylene Glycol 17 gm 02/07/25 09:00 02/09/25 11:43 Polyethylene Glycol 3350 17 Gm Powd.Pack PO 17 gm DAILY LAKSHMI Administration Pregabalin 200 mg 02/06/25 17:00 02/09/25 17:02 Pregabalin (*Crx) 50 Mg Capsule PO 200 mg BID LAKSHMI Administration Fluticasone/Salmeterol 2 puff 02/06/25 20:00 02/10/25 08:05 Fluticasone/Salmeterol 115-21 Mcg Inhaler 1 Puff INHALATION 2 puff Q12HRT LAKSHMI Administration Senna/Docusate Sodium 1 tab 02/06/25 17:00 02/09/25 17:02 Senna/Docusate Sodium Tablet PO 1 tab BID LAKSHMI Administration Umeclidinium [place] 1 puff 02/07/25 08:00 02/10/25 08:05 Umeclidinium [place] 62.5 Mcg Ellipta INHALATION 1 puff DAILYRT LAKSHMI Administration Radiology Results: ITS Impressions Head CT 02/05/25 17:45 IMPRESSION: No acute intracranial findings. Chest X-Ray 02/05/25 17:58 IMPRESSION: No acute cardiopulmonary pathology. Labs Labs: Laboratory Results - last 24 hr 02/09/25 02/09/25 02/09/25 11:46 16:55 21:02 WBC RBC Hgb Hct MCV MCH MCHC RDW Plt Count MPV Immature Gran % (Auto) Neut % (Auto) Lymph % (Auto) [place] % (Auto) Eos % (Auto) Baso % (Auto) Lymph # (Auto) [place] # (Auto) Eos # (Auto) Baso # (Auto) Abs Immat Gran (auto) Absolute Neuts (auto) Absolute Nucleated RBC Band Neutrophils % Nucleated RBC % Platelet Estimate Hypochromasia Anisocytosis Schistocytes Sodium Potassium Chloride Carbon Dioxide Anion Gap BUN Creatinine Estim Creat Clear Calc Estimated GFR Glucose POC Capillary Glucose 150 H 122 H 168 H Calcium Total Bilirubin AST ALT Alkaline Phosphatase Total Protein Albumin 02/10/25 05:01 WBC 4.8 RBC 3.56 L Hgb 9.4 L Hct 33.1 L MCV 93.0 MCH 26.4 MCHC 28.4 L RDW 19.5 H Plt Count 201 MPV 11.4 H Immature Gran % (Auto) 0.6 H Neut % (Auto) 66.8 Lymph % (Auto) 13.7 L [place] % (Auto) 15.4 H Eos % (Auto) 2.7 Baso % (Auto) 0.8 Lymph # (Auto) 0.65 L [place] # (Auto) 0.7 H Eos # (Auto) 0.1 Baso # (Auto) 0.0 Abs Immat Gran (auto) 0.03 Absolute Neuts (auto) 3.2 Absolute Nucleated RBC 0.000 Band Neutrophils % Not Reportable Nucleated RBC % 0.0 Platelet Estimate Adequate Hypochromasia 1+ Anisocytosis 1+ Schistocytes None seen Sodium 136 L Potassium 4.4 Chloride 106 Carbon Dioxide 23 Anion Gap 7 BUN 14 D Creatinine 0.91 Estim Creat Clear Calc 60 Estimated GFR > 60 Glucose 123 H POC Capillary Glucose Calcium 8.3 L Total Bilirubin 0.4 AST 91 H ALT 40 Alkaline Phosphatase 124 Total Protein 6.1 L Albumin 3.4 L Quality VTE Prophylaxis VTE prophylaxis: mechanical ordered
[2025-02-10 08:43] LABS: Glucose Point of Care 100 mg/dl (65-105)
[2025-02-10] MEDS: NICOTINE (*PBKC) 14 MG PATCH 1 PATCH TRANSDERM (10:16)
[2025-02-10] MEDS: LOSARTAN POTASSIUM 100 MG TABLET PO (10:17)
[2025-02-10] MEDS: carvediloL 25 MG TABLET PO ×2 (10:17→20:59)
[2025-02-10] MEDS: PREGABALIN (*CRX) 50 MG CAPSULE 200 MG PO ×2 (10:19→18:14)
[2025-02-10] MEDS: ARTIFICIAL TEARS OPHTH SOLN 15 ML BOTTLE 1 DROP EACH EYE ×4 (10:19→20:59)
[2025-02-10] MEDS: amLODIPine BESYLATE 5 MG TABLET PO (10:21)
[2025-02-10] MEDS: DULoxetine HCL 60 MG CAPSULE.DR PO (10:22)
[2025-02-10 11:55] LABS: Glucose Point of Care 110 mg/dl (65-105)
[2025-02-10] MEDS: LACTATED RINGERS 1,000 ML 150 ML IV CONT (13:29)
--- NOTE | 2025-02-10 13:40 | P.PNAN_ITS ---
Anes - Initial Pre Proc Eval Procedure: Operation Date: 02/10/25 16:00 Proposed Procedures p EGD & Diagnostic Colonoscopy - Jeromy Patel MD Date/Time: 02/10/25 13:40 Surgeon: Elaine Moreno APRN Pre Op Diagnosis: Low hemoglobin Patient Data Age: 69 Gender: M Height: 1.68 m Weight: 75.3 kg Last Vital Signs Temp 36.2 C L 02/10/25 13:24 Pulse 58 L 02/10/25 13:24 Resp 20 02/10/25 13:24 BP 133/55 L 02/10/25 13:24 Pulse Ox 97 02/10/25 13:24 O2 Del Method Room Air 02/10/25 13:24 FiO2 21 02/09/25 08:00 Allergies Allergy/AdvReac Type Severity Reaction Status Date / Time metformin Allergy Unknown Verified 02/06/25 02:02 vancomycin Allergy Unknown Verified 02/06/25 02:02 Home Medications ?Medication ?Instructions ?Recorded ?Confirmed ?Type albuterol sulfate 90 mcg/actuation 2 puff inhalation Q6H PRN 02/05/25 02/06/25 History aerosol inhaler shortness of breath or wheezing amlodipine 5 mg tablet 5 mg PO DAILY 02/05/25 02/06/25 History atorvastatin 80 mg tablet 80 mg PO QPM 02/05/25 02/06/25 History budesonide-formoterol HFA 160 2 puff inhalation Q12H PRN 02/05/25 02/06/25 History mcg-4.5 mcg/actuation aerosol shortness of breath or wheezing inhaler (Symbicort) carvedilol 25 mg tablet 25 mg PO Q12H 02/05/25 02/06/25 History clopidogrel 75 mg tablet 75 mg PO DAILY 02/05/25 02/06/25 History duloxetine 60 mg capsule,delayed 60 mg PO DAILY 02/05/25 02/06/25 History release insulin glargine 100 unit/mL (3 10 unit subcut QPM 02/05/25 02/06/25 History mL) subcutaneous pen (Lantus Solostar U-100 Insulin) insulin lispro 100 unit/mL 4 unit subcut .before meals 02/05/25 02/06/25 History subcutaneous pen lactulose 10 gram/15 mL oral 30 ml PO DAILY 02/05/25 02/06/25 History solution losartan 100 mg tablet 100 mg PO DAILY 02/05/25 02/06/25 History omeprazole 20 mg capsule,delayed 20 mg PO DAILY 02/05/25 02/06/25 History release oxycodone 5 mg tablet 10 mg PO Q6H PRN pain 02/05/25 02/06/25 History acetaminophen 325 mg capsule 650 mg PO Q6H PRN fever or pain 02/06/25 02/06/25 History carboxymethylcellulose sodium 0.5 1 drp EACH EYE Q4H 02/06/25 02/06/25 History % eye drops in a dropperette dabigatran etexilate 150 mg capsule 150 mg PO BID 02/06/25 02/06/25 History dapagliflozin propanediol 5 mg 5 mg PO DAILY 02/06/25 02/06/25 History tablet (Farxiga) ferrous sulfate 324 mg (65 mg 324 mg PO DAILY 02/06/25 02/06/25 History iron) tablet,delayed release fluticasone 250 mcg-salmeterol 50 1 inh inhalation ONCE 02/06/25 02/06/25 History mcg/dose blistr powdr for inhalation hydroxyzine HCl 25 mg tablet 25 mg PO DAILY 02/06/25 02/06/25 History methocarbamol 750 mg tablet 750 mg PO Q6H PRN muscle spasm 02/06/25 02/07/25 History multivitamin with iron 1 tablet PO DAILY 02/06/25 02/06/25 History nicotine 14 mg/24 hr daily 1 patch transdermal DAILY 02/06/25 02/06/25 History transdermal patch polyethylene glycol 3350 17 17 g PO DAILY 02/06/25 02/06/25 History gram/dose oral powder (Miralax) pregabalin 200 mg capsule (Lyrica) 200 mg PO BID 02/06/25 02/06/25 History sennosides 8.6 mg-docusate sodium 1 tab-cap PO BID 02/06/25 02/06/25 History 50 mg tablet (Stimulant Laxative Plus) umeclidinium 62.5 mcg/actuation 1 inh inhalation Q24H 02/06/25 02/06/25 History blister powder for inhalation (Incruse Ellipta) Laboratory Tests 02/09/25 02/09/25 02/10/25 16:55 21:02 05:01 WBC 4.8 K/mm3 (4.5-10.0) RBC 3.56 L M/mm3 (4.6-6.20) Hgb 9.4 L g/dL (14.0-18.0) Hct 33.1 L % (42.0-52.0) MCV 93.0 fl (80-100) MCH 26.4 pg (26-34) MCHC 28.4 L g/dl (32-36) RDW 19.5 H % (11.5-14.5) Plt Count 201 k/mm3 (150-375) MPV 11.4 H fl (7.4-10.4) Immature Gran % (Auto) 0.6 H % (0-0.5) Neut % (Auto) 66.8 % (45.5-73.1) Lymph % (Auto) 13.7 L % (18.3-44.2) [place] % (Auto) 15.4 H % (2.6-8.5) Eos % (Auto) 2.7 % (0-4.4) Baso % (Auto) 0.8 % (0.2-1.2) Lymph # (Auto) 0.65 L K/mm3 (0.9-3.2) [place] # (Auto) 0.7 H K/mm3 (0.1-0.6) Eos # (Auto) 0.1 K/mm3 (0-0.3) Baso # (Auto) 0.0 K/mm3 (0.0-0.1) Abs Immat Gran (auto) 0.03 K/mm3 (0.00-0.031) Absolute Neuts (auto) 3.2 K/mm3 (1.3-6.7) Absolute Nucleated RBC 0.000 K/mm3 (0.0-0.012) Band Neutrophils % Not Reportable Nucleated RBC % 0.0 % (0.0-0.2) Platelet Estimate Adequate (Adequate) Hypochromasia 1+ Anisocytosis 1+ Schistocytes None seen Sodium 136 L mmol/L (137-145) Potassium 4.4 mmol/L (3.4-5.0) Chloride 106 mmol/L (98-107) Carbon Dioxide 23 mmol/L (22-30) Anion Gap 7 mmol/L (4-12) BUN 14 D mg/dL (9-20) Creatinine 0.91 mg/dL (0.7-1.3) Estim Creat Clear Calc 60 ml/min Estimated GFR > 60 (59 - ) Glucose 123 H mg/dL (65-110) POC Capillary Glucose 122 H mg/dl 168 H mg/dl (65-105) (65-105) Calcium 8.3 L mg/dL (8.4-10.2) Total Bilirubin 0.4 mg/dL (0.2-1.3) AST 91 H U/L (17-59) ALT 40 U/L (6-50) Alkaline Phosphatase 124 U/L (38-126) Total Protein 6.1 L g/dL (6.3-8.2) Albumin 3.4 L g/dL (3.5-5.1) 02/10/25 02/10/25 08:39 11:37 WBC RBC Hgb Hct MCV MCH MCHC RDW Plt Count MPV Immature Gran % (Auto) Neut % (Auto) Lymph % (Auto) [place] % (Auto) Eos % (Auto) Baso % (Auto) Lymph # (Auto) [place] # (Auto) Eos # (Auto) Baso # (Auto) Abs Immat Gran (auto) Absolute Neuts (auto) Absolute Nucleated RBC Band Neutrophils % Nucleated RBC % Platelet Estimate Hypochromasia Anisocytosis Schistocytes Sodium Potassium Chloride Carbon Dioxide Anion Gap BUN Creatinine Estim Creat Clear Calc Estimated GFR Glucose POC Capillary Glucose 100 mg/dl 110 H mg/dl (65-105) (65-105) Calcium Total Bilirubin AST ALT Alkaline Phosphatase Total Protein Albumin Patient hx anesthesia problems: none Family hx anesthesia problems: none Results Review: All pre-operative results and documents have been reviewed as part of the pre- operative evaluation. [facility] Past Medical History Medical History (Updated 02/08/25 @ 14:08 by Jeromy Patel MD) Hx of residential use of blood thinners Acute on chronic anemia CVA, old, monoplegia upper limb HTN (hypertension) Atrial fibrillation COPD (chronic obstructive pulmonary disease) Diabetes Family History Family History (Updated 02/06/25 @ 00:37 by Rola Amaro RN) Other Unknown family medical history Social History Social History Smoking status: Current every day smoker Tobacco type: cigarettes Alcohol intake: former Substance use: former Do You Feel Safe in your Home?: Yes Lack of Transportation: No Lack of Food: Never True Current Housing: I Have Housing Concerned About Future Housing: No Difficulty Paying Gas/Electric Bills: No Difficulty Paying for Meds: No Currently Unemployed: No Education: Trade/Vocational Certificate Difficulty w/ Childcare or Family Care: No Spiritual care concerns: No Anes - Eval Final PreProcedure Day of Procedure 02/10/25 13:40 Patient weight: overweight Heart: regular rate and rhythm Lungs: clear to auscultation Airway: Mallampati scale class II Neurological: alert and oriented Last oral intake: >/= 8 hours ASA classification: III Emergent: yes Anesthetic plan: proceed Anesthesia type and monitoring: general GIVS and standard monitoring Results Review: All pre-operative results and documents have been reviewed as part of the pre- operative evaluation. Informed Consent: The patient's anesthetic plan and its attendant risks and benefits were discussed with the patient/family/POA. Questions were solicited and answers provided to the satisfaction of the patient/family/POA.
[2025-02-10 13:46] LABS: Glucose Point of Care 101 mg/dl (65-105)
--- NOTE | 2025-02-10 14:08 | SUR.OPER ---
EGD: ended 1403, COLON: started 1407
--- NOTE | 2025-02-10 14:26 | S_PTH ---
PATIENT: Maksim Scanlon LOC: [id number] U#:[id number] AGE/SX: 69/M ROOM: 342 RE02/05/[address]: Elaine Moreno APRN : 1955 BED: 01 DIS: 02/11/2025 SPEC #: [id number] RECD: 02/11/25 07:43 STATUS: AMANDA REPepe #: [id number] VIJAY: 02/10/25 14:[address]: Jeromy Patel DEPT: [facility] Surgical RECD BY: Marleen Beltran ENTERED: 02/11/25 07:43 SP TYPE: Surgical OTHR DR: DO Elaine Jeronimo APRN [facility], Tissues: A - Colon Polypectomy B - Colon Polypectomy Procedures: Hematoxylin and Eosin Stain Gross and Microscopic Level 4
[2025-02-10 16:53] LABS: Glucose Point of Care 171 mg/dl (65-105)
[2025-02-10] MEDS: INSULIN GLARGINE (*BKC) 100 UNITS/ML 8 UNITS SUB-Q (18:12)
[2025-02-10] MEDS: SENNA/DOCUSATE SODIUM TABLET 1 TAB PO (18:14)
[2025-02-10] MEDS: DOCUSATE SODIUM 100 MG CAPSULE PO (18:14)
[2025-02-10] MEDS: ATORVASTATIN 40 MG TABLET 80 MG PO (18:14)
[2025-02-11] VITALS (7 sets, daily range): BP systolic 138–139; BP diastolic 52–62; PULSE 58–82; RESP 18–20; TEMP 36.6–36.7; O2SAT 97–100
[2025-02-11] MEDS: ARTIFICIAL TEARS OPHTH SOLN 15 ML BOTTLE 1 DROP EACH EYE ×3 (05:34→12:26)
[2025-02-11 06:40] LABS: Glucose Point of Care 197 mg/dl (65-105)
[2025-02-11 07:42] LABS: Basophils Percent Auto 0.4 % (0.2-1.2); Eosinophils Absolute Auto 0.1 K/mm3 (0-0.3); Eosinophils Percent Auto 2.7 % (0-4.4); Hematocrit 30.8 % (42.0-52.0); Immature Granulocyte Absolute 0.02 K/mm3 (0.00-0.031); Immature Granulocyte Percent A 0.4 % (0-0.5); Lymphocytes Percent Auto 12.3 % (18.3-44.2); Mean Corpuscular HGB Conc 29.2 g/dl (32-36); Mean Corpuscular Hemoglobin 26.4 pg (26-34); Mean Corpuscular Volume 90.3 fl (80-100); Mean Platelet Volume 9.9 fl (7.4-10.4); Monocytes Absolute Auto 0.6 K/mm3 (0.1-0.6); Monocytes Percent Auto 11.9 % (2.6-8.5); Neutrophils Absolute Auto 3.5 K/mm3 (1.3-6.7); Neutrophils Percent Auto 72.3 % (45.5-73.1); Nucleated Red Blood Cells Perc 0.4 % (0.0-0.2); Platelet Count Result 185 k/mm3 (150-375); Red Blood Count 3.41 M/mm3 (4.6-6.20); Red Cell Distribution Width 19.8 % (11.5-14.5); White Blood Count 4.9 K/mm3 (4.5-10.0)
[2025-02-11 07:55] LABS: Alanine Aminotransferase 28 U/L (6-50); Albumin Level 3.3 g/dL (3.5-5.1); Alkaline Phosphatase 140 U/L (38-126); Anion Gap 5 mmol/L (4-12); Aspartate Amino Transferase 36 U/L (17-59); Bilirubin,Total 0.3 mg/dL (0.2-1.3); Blood Urea Nitrogen 13 mg/dL (9-20); Calcium 8.4 mg/dL (8.4-10.2); Carbon Dioxide 27 mmol/L (22-30); Chloride 106 mmol/L (98-107); Estimated CRCL calculation 65 ml/min; Estimated Glomerular Filt Rate > 60; Glucose 130 mg/dL (65-110); Potassium 4.4 mmol/L (3.4-5.0); Sodium 138 mmol/L (137-145)
[2025-02-11 08:04] LABS: Anisocytosis 1+; Platelet Estimate Adequate (Adequate)
[2025-02-11 08:06] LABS: Polychromasia 1+; Schistocytes Rare
[2025-02-11 08:08] LABS: Hypochromasia 1+; Poikilocytosis 1+
[2025-02-11 08:35] LABS: Glucose Point of Care 118 mg/dl (65-105)
[2025-02-11] MEDS: UMECLIDINIUM BROMIDE 62.5 MCG ELLIPTA 1 PUFF INHALATION (08:48)
[2025-02-11] MEDS: FLUTICASONE/SALMETEROL 115-21 MCG INHALER 1 PUFF 2 PUFF INHALATION (08:49)
[2025-02-11] MEDS: polyethylene glycoL 3350 17 GM POWD.PACK PO (09:17)
[2025-02-11] MEDS: LACTULOSE 20 GM/30 ML UDC PO (09:17)
[2025-02-11] MEDS: NICOTINE (*PBKC) 14 MG PATCH 1 PATCH TRANSDERM (09:17)
[2025-02-11] MEDS: amLODIPine BESYLATE 5 MG TABLET PO (09:18)
[2025-02-11] MEDS: DOCUSATE SODIUM 100 MG CAPSULE PO (09:18)
[2025-02-11] MEDS: PREGABALIN (*CRX) 50 MG CAPSULE 200 MG PO (09:18)
[2025-02-11] MEDS: EMPAGLIFLOZIN 10 MG TABLET BY MOUTH (09:18)
[2025-02-11] MEDS: SENNA/DOCUSATE SODIUM TABLET 1 TAB PO (09:18)
[2025-02-11] MEDS: THERAPEUTIC MULTIVITAMINS/MINERALS TAB (*BKC) 1 TABLET PO (09:19)
[2025-02-11] MEDS: PANTOPRAZOLE 40 MG TABLET PO (09:19)
[2025-02-11] MEDS: DULoxetine HCL 60 MG CAPSULE.DR PO (09:19)
[2025-02-11] MEDS: carvediloL 25 MG TABLET PO (09:19)
[2025-02-11] MEDS: LOSARTAN POTASSIUM 100 MG TABLET PO (09:19)
[2025-02-11] MEDS: hydrOXYzine HCL 25 MG TABLET PO (09:19)
--- NOTE | 2025-02-11 11:55 | PM.DS ---
DS: Admitting Diagnosis Discharge Date 02/11/2025 Admitting Diagnosis Anemia DS: Discharge Diagnosis Discharge Diagnosis (1) Low hemoglobin: Code(s): D64.9 - Anemia, unspecified Status: Acute Assessment and Plan: Came to the ED for weakness. Pt reports hx of anemia but never having to get a blood transfusion. -Hgb 5.4 in the ED, 1 unit PRBC given -Repeat hgb 02/06 AM 6.5, additional 1 unit PRBCs given while inpt, repeat hgb 8.9 02/07: -H/H 02/07 AM 8.5/28.1 -Consulting GI today for potential causes -->Per GI: EGD and cscope on 02/10 due to Plavix to further investigate 02/08: -H/H 02/07 AM 8.3/27.4 -Continue on with plan for EGD and cscope 02/10 due to Plavix to further investigate blood loss 02/09: -H/H 8.6/29.2 -Continue on with plan for EGD and cscope tomorrow due to Plavix to further investigate blood loss 02/10: -H/H 9.4/33.1 -Was on IVF starting at [facility] for NPO status -Continue on with plan for EGD and cscope today due to Plavix to further investigate blood loss 02/11: -H/H: 9.0/30.8 -Nothing noteworthy from upper and lower scope yesterday, pt to have repeat cscope in x3 years and can restart plavix on 02/13. Per GI, pt can go home with with PCP f/u. -Pt instructed to f/u with PCP to monitor H/H, etc. -Pt instructed to come back to the ED with abd pain he was having, weakness, and blood in his stool. Pt agreeable with the plan. (2) Anemia: Code(s): D64.9 - Anemia, unspecified Status: Acute Assessment and Plan: See above (3) Diabetes: Code(s): E11.9 - Type 2 diabetes mellitus without complications Status: Acute Assessment and Plan: AccuChecks ACHS, sliding scale, and hypoglycemic order sets placed -Restarted home oral meds -Pt usually takes lispro 4units pre prandial & 10 Lantus PM -Will continue to monitor labs and POC sugars 02/07: -Increased sliding scale to moderate dosing and started pt on 8units of lantus for PM (normally takes 10units at home) due to pt elevated fasting and Pre prandial readings. -Ordered A1c today, pending 02/08: Discussed with him today his A1c results of 5.7 and how they were on the low end for his age, he reports that he has been on insulin for awhile but not metformin because he is allergic. Plan to f/u with his PCP regarding his glycemic index. Continue with POC blood sugar checks and daily AM CMPs. 02/09: When pt starts NPO at [facility], also to start LR at 75 ml/hr, continue insulin tonight 02/10: Stable fasting BS this AM. Continue IVF until s/p EGD and cscope. 02/11: Pt to be D/C today. Continue to f/u with PCP for his blood sugar results, A1c results, and medication. (4) COPD (chronic obstructive pulmonary disease): Code(s): J44.9 - Chronic obstructive pulmonary disease, unspecified Status: Acute Assessment and Plan: Continue home inhalers, denies issues breathing (5) Atrial fibrillation: Code(s): I48.91 - Unspecified atrial fibrillation Status: Acute Assessment and Plan: 02/07: Plavix and Pradexa held today for GI consult / work-up NSR via EKG in ED, continue to monitor 02/09: Pending EGD and cscope tomorrow, will take their recs for restarting Plavix & Pradexa post procedure. 02/10: Pending EGD and cscope today, will take GI recs for restarting Plavix & Pradexa post procedure. 02/11: Nothing noteworthy from upper and lower scope yesterday, pt to have repeat cscope in x3 years and can restart plavix on 02/13. (6) HTN (hypertension): Code(s): I10 - Essential (primary) hypertension Status: Acute Assessment and Plan: Restarted home meds: -Amlodipine 5mg -Coreg 25mg -Losartan 100mg (7) CVA, old, monoplegia upper limb: Status: Acute Assessment and Plan: Plavix and Pradexa held 02/07 for GI consult / work-up LUE weakness, L facial droop, and slurred speech at baseline Nothing noteworthy from upper and lower scope yesterday, pt to have repeat cscope in x3 years and can restart plavix on 02/13. Plan Pt to be discharged today with plan to f/u with PCP due to this admission and to trend H/H, etc. Pt also to f/u with PCP about his DM. DS: Summary Hospital Course Reason for hospitalization: Anemia Hospital Course: Per ED provider: Patient is 69-year-old male who presents to the ER with complaints of difficulty speaking, tremors, and weakness. He reports his symptoms have been going on for approximately 1 week. Patient reports he had back surgery about 7 weeks ago and has been living ever care for rehabilitation. He denies any pain at this time. Patient endorses a history AFib, COPD, diabetes, high blood pressure, recent laminectomy, and is on blood thinners. He denies any recent fevers, new medications, or nausea/vomiting. 02/06: Pt drowsy and resting in bed at time of my visit. Pt wakes to verbal stimuli. Pt denies any acute sx other than weakness but reports that it is better. Pt has received x2 units of PRBC so far, awaiting repeat hgb level. We talked thoroughly about his medical hx and CVA deficits. He reports that he ambulates normally at home with a walker. Pt reports having a laminectomy x7 weeks ago and currently resides at [facility]. Plans to go back to this [place], PT/OT placed today incase needing to go elsewhere. 02/07: Pt up and in the chair today looking much better today, engaging more in conversation. Pt states that he was feeling unwell yesterday and today he is feeling much better. He does report to me that he has been having black stools at home x 1 week with progressive weakness. I updated him that these could be sx of blood loss. I did update him on the plan for GI consult with their plan being EGD and cscope, pt agreeable with plan and is encouraged that we will potentially have an answer for his low hgb. Plan to continue with therapy and daily lab draws. 02/08: Pt reports today that he is continuing to feel well, no more blood/tarry black stools and/or abd pain. Discussed with him today his A1c results and how they were on the low end for his age, he reports that he has been on insulin for awhile but not metformin because he is allergic. Plan to f/u with his PCP regarding his glycemic index. Reiterated the plan for GI w/u Monday, pt agreeable with the plan. 02/09: Pt reports today that he is continuing to feel well, no more blood/tarry black stools and/or abd pain. Reiterated the plan for EGD and Cscope tomorrow with bowel prep starting today, pt agreeable with plan. 02/10: Pt reports today that he is continuing to feel well, no more blood/tarry black stools and/or abd pain. Reiterated the plan for EGD and Cscope today around 1600, pt agreeable with plan. 02/11: Pt reports that he continues to feel well, no more blood/tarry black stools and/or abd pain. Pt to f/u with PCP regarding this inpt stay as well as his DM. Pt to have repeat cscope in x3 years as well as able to restart his Plavix on 02/13 per GI. Pt to return to [facility] where he resides. Status at Discharge Cognitive/behavioral status at discharge: stable Functional status at discharge: uses cane/walker Overall status at discharge: patient is back to baseline Time Spent with Patient Time attestation: Total time spent providing and/or coordinating discharge services: Exam Const: General: comfortable and no acute distress Other: Pt sitting up in chair today HENMT: Face/Nose/Sinus: Normal nares present Mouth: Yes moist mucous membranes Eyes: General: appearance normal, both eyes and all related structures Sclera: sclerae normal Neck: Neck: supple and no JVD Carotids: no bruits Resp: Effort & Inspection: normal respiratory effort Auscultation: clear to auscultation bilaterally Cardio: Rate: regular rate Rhythm: regular rhythm GI: Inspection: non-distended Auscultation: normal bowel sounds Skin: General skin exam: normal color and no rashes or lesions noted Wounds: no wounds Neuro: Other: Alert. Garbled speech, mild L facial droop, LUE and hand contracted with minimal to no movement of LUE. Hand with 2/5 strength, RUE tremulous (ALL BASELINE) Extrem: Other: LUE arm and hand contracture Psych: Mental Status: mental status grossly normal Affect: normal affect DS: Data Data Completed and Pending Pending studies at discharge: Pending at discharge 02/10/25 14:26 Surgical [PTH] Routine Labs on day of discharge: Labs from last 24 hours 02/11/25 02/11/25 02/10/25 08:29 07:36 20:58 WBC 4.9 RBC 3.41 L Hgb 9.0 L Hct 30.8 L MCV 90.3 MCH 26.4 MCHC 29.2 L RDW 19.8 H Plt Count 185 MPV 9.9 Immature Gran % (Auto) 0.4 Neut % (Auto) 72.3 Lymph % (Auto) 12.3 L [place] % (Auto) 11.9 H Eos % (Auto) 2.7 Baso % (Auto) 0.4 Lymph # (Auto) 0.60 L [place] # (Auto) 0.6 Eos # (Auto) 0.1 Baso # (Auto) 0.0 Abs Immat Gran (auto) 0.02 Absolute Neuts (auto) 3.5 Absolute Nucleated RBC 0.020 H Band Neutrophils % Not Reportable Nucleated RBC % 0.4 H Platelet Estimate Adequate Polychromasia 1+ Hypochromasia 1+ Poikilocytosis 1+ Anisocytosis 1+ Schistocytes Rare Sodium 138 Potassium 4.4 Chloride 106 Carbon Dioxide 27 Anion Gap 5 BUN 13 Creatinine 0.83 Estim Creat Clear Calc 65 Estimated GFR > 60 Glucose 130 H POC Capillary Glucose 118 H 197 H Calcium 8.4 Total Bilirubin 0.3 AST 36 ALT 28 Alkaline Phosphatase 140 H Total Protein 6.0 L Albumin 3.3 L 02/10/25 02/10/25 02/10/25 16:38 13:21 11:37 WBC RBC Hgb Hct MCV MCH MCHC RDW Plt Count MPV Immature Gran % (Auto) Neut % (Auto) Lymph % (Auto) [place] % (Auto) Eos % (Auto) Baso % (Auto) Lymph # (Auto) [place] # (Auto) Eos # (Auto) Baso # (Auto) Abs Immat Gran (auto) Absolute Neuts (auto) Absolute Nucleated RBC Band Neutrophils % Nucleated RBC % Platelet Estimate Polychromasia Hypochromasia Poikilocytosis Anisocytosis Schistocytes Sodium Potassium Chloride Carbon Dioxide Anion Gap BUN Creatinine Estim Creat Clear Calc Estimated GFR Glucose POC Capillary Glucose 171 H 101 110 H Calcium Total Bilirubin AST ALT Alkaline Phosphatase Total Protein Albumin Discharge Plan Discharge Attending physician on discharge: Elaine Moreno Consulting providers: Jeromy Patel Discharging Clinician: Elaine Moreno Anticipated Discharge Date/Time: 02/11/25 13:00 Patient Disposition: Skilled Nursing Care Hospital Activity: may shower Diet: diabetic Discharge Instructions: 1. Make sure that you follow-up with your primary care provider to trend your lab work to make sure your blood counts continue to be stable. Also follow-up with them regarding your diabetes and other medical issues. 2. As discussed with GI, there was nothing to explain your low blood levels, however you did have some polyps removed, they will be in contact with you regarding those. They would like to see you back for another colonoscopy in three years. You can also start to take your Plavix again on 02/13. 3. Make sure to come back to the ER is you are having the weakness, abdominal pain, or blood in your stool like you experienced when you came to the ER initially. Continue to check your blood pressure and blood sugar at home if applicable. Keep your scheduled appts with your primary care provider and any specialist that you may see. Return to the emergency department if you develop sudden shortness of breath, chest pain, a fever of greater than 101.5, or nausea, vomiting, abd pain, or diarrhea that does not go away. Follow-up with your primary care provider within 1-2 weeks, they will want to be updated on your inpatient stay in the hospital. Thank you for [facility] for your healthcare needs. Patient Instructions: Clopidogrel (By mouth), Anemia (ED) Patient Language: Czech Stand Alone Forms: General Discharge Information, Correction Discharge Follow-up/Referrals: Beryl,Haresh Patel MD [Primary Care Provider] - 2 Weeks Discharge Medications: Continued atorvastatin 80 mg tablet 80 mg PO QPM carvedilol 25 mg tablet 25 mg PO Q12H amlodipine 5 mg tablet 5 mg PO DAILY omeprazole 20 mg capsule,delayed release(DR/EC) 20 mg PO DAILY albuterol sulfate 90 mcg/actuation HFA aerosol inhaler 2 puff INHALATION Q6H PRN (Reason: shortness of breath or wheezing) losartan 100 mg tablet 100 mg PO DAILY oxycodone 5 mg tablet 10 mg PO Q6H PRN (Reason: pain) insulin lispro 100 unit/mL insulin pen 4 unit SUBCUT .before meals duloxetine 60 mg capsule,delayed release(DR/EC) 60 mg PO DAILY lactulose 10 gram/15 mL solution 30 ml PO DAILY budesonide-formoterol [Symbicort] 160-4.5 mcg/actuation HFA aerosol inhaler 2 puff INHALATION Q12H PRN (Reason: shortness of breath or wheezing) insulin glargine [Lantus Solostar U-100 Insulin] 100 unit/mL (3 mL) insulin pen 10 unit SUBCUT QPM acetaminophen 325 mg capsule 650 mg PO Q6H PRN (Reason: fever or pain) dabigatran etexilate 150 mg capsule 150 mg PO BID dapagliflozin propanediol [Farxiga] 5 mg tablet 5 mg PO DAILY fluticasone propion-salmeterol 250-50 mcg/dose blister with device 1 inh inhalation ONCE ferrous sulfate 324 mg (65 mg iron) tablet,delayed release (DR/EC) 324 mg PO DAILY carboxymethylcellulose sodium 0.5 % dropperette 1 drp EACH EYE Q4H pregabalin [Lyrica] 200 mg capsule 200 mg PO BID methocarbamol 750 mg tablet 750 mg PO Q6H PRN (Reason: muscle spasm) polyethylene glycol 3350 [Miralax] 17 gram/dose powder 17 g PO DAILY multivitamin with iron Tablet 1 tablet PO DAILY nicotine 14 mg/24 hr patch 24 hour 1 patch transdermal DAILY sennosides-docusate sodium [Stimulant Laxative Plus] 8.6-50 mg tablet 1 tab-cap PO BID Incruse Ellipta 62.5 mcg/actuation blister with device 1 inh INHALATION Q24H hydroxyzine HCl 25 mg tablet 25 mg PO DAILY Held clopidogrel 75 mg tablet 75 mg PO DAILY Hold Instructions: Resume on 02/13/25. Date of admission: 02/05/25 23:19 Primary Care Provider: Beryl,Haresh Patel Admitting Provider: Kinsey Sims Attending physician on admission: Elaine Moreno Condition: Stable Quality VTE Prophylaxis VTE prophylaxis: mechanical ordered Hospitalist MIPS Heart Failure (Exclusion) Patient has history of Heart Transplant or Left Ventricular Assistive Device?: No IF YES, STOP HERE Heart Failure (Qualifier) Patient has current or prior documentation of LVEF less than or equal to 40%, or mod/servere depressed LVSF?: No IF NO, STOP HERE
[2025-02-11 11:57] LABS: Glucose Point of Care 189 mg/dl (65-105)
[2025-02-11] MEDS: FERROUS SULFATE 325 MG TABLET DR BY MOUTH (12:26)
== END 2025-02-11 15:44 | DRG 812 ==
LOC: ANHED 23:19 → ANH3MED 23:30
PROVIDERS: Internal Medicine Gastroenterology; Admitting Provider Internal Medicine; Emergency Provider Registered Nurse; PCP Family Medicine
PROC: 0DJ08ZZ Inspection of Upper Intestinal Tract, Via Natural or Artificial Opening Endoscopic (ICD-10-PCS; CPT 45378; principal; 2025-02-10 16:00)
DX: D50.9 Iron deficiency anemia, unspecified (principal); K92.1 Melena; E11.9 Type 2 diabetes mellitus without complications; J44.9 Chronic obstructive pulmonary disease, unspecified; K21.9 Gastro-esophageal reflux disease without esophagitis; K57.30 Diverticulosis of large intestine without perforation or abscess without bleeding; K64.8 Other hemorrhoids; K63.5 Polyp of colon; R25.1 Tremor, unspecified; I48.91 Unspecified atrial fibrillation; I10 Essential (primary) hypertension; I69.328 Other speech and language deficits following cerebral infarction; I69.392 Facial weakness following cerebral infarction; I69.334 Monoplegia of upper limb following cerebral infarction affecting left non-dominant side; Z79.02 Long term (current) use of antithrombotics/antiplatelets
CPT/HCPCS: 36415; 36430; 70450; 71045; 80048; 80053; 80307; 81003; 82607; 82728; 82746; 82948; 83036; 83540; 83550; 84443; 84484; 85025; 85027; 85610; 85730; 86850; 86900; 86901; 86923; 88305; 93005; 94640; 96360; 96361; 97110; 97116; 97161; 97166; 97530; 99285; A9270; J1756; J1815; J2704; J7030; J7050; J7120; P9016

== ENCOUNTER 2025-07-09 14:59 | Inpatient (IN) | payer MEDICARE, MEDICAID, SELFPAY ==
[2025-07-09] VITALS (33 sets, daily range): BP systolic 96–150; BP diastolic 30–95; PULSE 63–99; RESP 14–29; TEMP 36.6–37.4; O2SAT 93–100; BMI 29.0; BMI 25.7
--- NOTE | ~2025-07-09 | XR_ITS ---
EXAMINATION: XR chest 1V portable COMPARISON: No comparisons available. HISTORY: dizziness FINDINGS: Mild pulmonary venous congestion. No pneumothorax. Moderate cardiomegaly. Mediastinal and hilar contours are within normal limits. Bony thorax no acute abnormality. Miscellaneous: None Impression: Mild CHF Reviewed, dictated and finalized at location P. SFER KNITTER Impression: Mild CHF
--- NOTE | ~2025-07-09 | XR_ITS ---
EXAMINATION: XR chest 1V portable COMPARISON: No comparisons available. HISTORY: cough FINDINGS: The lungs are clear, no effusion. No pneumothorax. Heart is normal size. Mediastinal and hilar contours are within normal limits. Bony thorax no acute abnormality. Miscellaneous: None Impression: No acute cardiopulmonary abnormality. Reviewed, dictated and finalized at location P. NUE STAMPER Impression: No acute cardiopulmonary abnormality.
--- NOTE | ~2025-07-09 | CT_ITS ---
EXAMINATION: CT brain wo con, 07/13/2025 16:45 PULMONOLOGY TECHNICIAN HISTORY: neuro symptoms COMPARISON: Comparison 02/05/2025. Technique: Axial images obtained of the brain without contrast. One or more of the following dose reduction techniques were used: automated exposure control, adjustment of the mA and/or kV according to patient size, use of iterative reconstruction technique. Findings: There are remote bilateral basal ganglia lacunar infarcts. No acute infarct or hemorrhage. No midline shift or mass effect. There are no extra-axial fluid collections. Mastoid air cells unremarkable. Sinuses and orbits unremarkable. No acute fracture. No significant facial or scalp soft tissue swelling evident. No radiopaque foreign body is seen. Impression: 1.No acute intracranial abnormality. Reviewed, dictated and finalized at location P. ONOLOGY TECHNICIAN Impression: 1.No acute intracranial abnormality.
--- NOTE | ~2025-07-09 | CT_ITS ---
CT abdomen pelvis w con INDICATION:Upper GI bleed . COMPARISON: None. TECHNIQUE: Axial images of the abdomen and pelvis were obtained following infusion of 100 mL Isovue 300. Dose optimization technique was utilized. FINDINGS: Partially calcified nodule within the left lung base measures 12 mm. The liver parenchyma is unremarkable. No intrahepatic mass or ductal dilatation is evident. Gallbladder is contracted or surgically absent. The pancreas and spleen are normal in appearance. The adrenal glands are symmetric in size. Atrophy right kidney. Left kidney cyst measures 3 cm. Normal enhancement of the left kidney is noted. No cystic mass is evident. There is no solid mass. There is no hydronephrosis. Evaluation of the stomach and bowel loops are limited due to lack of oral contrast. There is no bowel obstruction or acute appendicitis. Ventral wall hernia containing small bowel loops. There is no evidence of bowel obstruction. There is diffuse stool retention consistent with constipation. There is a fat- containing left inguinal hernia. The bladder and rectum are normal. No free intraperitoneal fluid or air is evident. There is no significant retroperitoneal lymphadenopathy. The aorta, visceral vessels and renal arteries demonstrate normal caliber and patency. The lower thoracic and lumbar vertebrae are in normal alignment. IMPRESSION: No acute abnormality is noted in the abdomen and pelvis. Ventral wall hernia containing small bowel loops. There is no bowel obstruction. Fat-containing left inguinal hernia. All CT scans at this facility are performed using low dose modulation techniques as appropriate to perform exam including the following: automated exposure control; use of iterative reconstruction technique; adjustment of the mA and/or kV according to patient size (this includes techniques or standardized protocols for targeted exams where dose is matched to indication/reason for exam). Reviewed, dictated and finalized at location S. STONE SETTER IMPRESSION: No acute abnormality is noted in the abdomen and pelvis. Ventral wall hernia containing small bowel loops. There is no bowel obstruction . Fat-containing left inguinal hernia. All CT scans at this facility are performed using low dose modulation techniqu es as appropriate to perform exam including the following: automated exposure c ontrol; use of iterative reconstruction technique; adjustment of the mA and/or kV according to patient size (this includes techniques or standardized protocol s for targeted exams where dose is matched to indication/reason for exam).
--- NOTE | 2025-07-09 15:03 | ECG_ITS ---
Test Date: 2025-07-09 15:15:38 Measurements Intervals [place] Rate: 64 P: 79 OK: 173 QRS: 93 QRSD: 96 T: 57 QT: 399 QTc: 413 Interpretive Statements SINUS RHYTHM Electronically Signed On 07-09-2025 22:29:06 [employer] by Chase Wagner D.O
[2025-07-09 15:48] LABS: Add Urine Microscopic? NO; Appearance Urine Clear (Clear); Glucose Urine UA 3+ mg/dL (Negative); Leukocyte Esterase Ur Negative LEU/UL (Negative); Nitrate Urine Negative (Negative); Specific Grav Ur 1.012 (1.001-1.035)
--- NOTE | 2025-07-09 15:53 | PC.NURSE ---
multiple attempts made to obtain iv access and lab specimens by multiple staff members. Bob from vascular access contacted and will come to the patients room to obtain iv access
[2025-07-09 15:55] LABS: Immature Granulocyte Percent A 0.6 % (0-0.5); Lymphocytes Absolute Auto 0.70 K/mm3 (0.9-3.2); Mean Corpuscular HGB Conc 27.3 g/dl (32-36); Mean Corpuscular Hemoglobin 22.6 pg (26-34); Mean Corpuscular Volume 82.7 fl (80-100); Nucleated Red Blood Cells Absolute Auto 0.000 K/mm3 (0.0-0.012); Nucleated Red Blood Cells Perc 0.0 % (0.0-0.2); Platelet Count Result 133 k/mm3 (150-375); Red Blood Count 1.68 M/mm3 (4.6-6.20); White Blood Count 4.8 K/mm3 (4.5-10.0)
[2025-07-09 16:06] LABS: Alanine Aminotransferase 13 U/L (6-50); Albumin Level 3.3 g/dL (3.5-5.1); Alkaline Phosphatase 101 U/L (38-126); Anion Gap 6 mmol/L (4-12); Aspartate Amino Transferase 23 U/L (17-59); Bilirubin,Total 0.3 mg/dL (0.2-1.3); Blood Urea Nitrogen 31 mg/dL (9-20); Calcium 8.0 mg/dL (8.4-10.2); Carbon Dioxide 29 mmol/L (22-30); Chloride 101 mmol/L (98-107); Estimated Glomerular Filt Rate 57; Glucose 129 mg/dL (65-110); Potassium 4.0 mmol/L (3.4-5.0); Sodium 136 mmol/L (137-145); Total Protein 5.8 g/dL (6.3-8.2)
--- OUTSIDE RECORDS SUMMARY | 2025-07-09 16:23 | XMS_ITS | Encounter Summary ---
Author Organization [facility] Facility Care Team Providers Care Shoe Repairman Name Role Phone Joseph Rust MD Primary Care Provider [phone] Unknown, Notinfile Primary Care Provider Unavail able Joseph Rust MD Primary Care Provider [phone] Rafael Cordoba MD Primary Care Provider [phone] Vanna Park NP Unavailable [phone] Haresh Cordoba DO Primary Care Provider + Joseph Rust MD Primary Care Provider [phone] Russ Ley MD Unavailable [phone] Goyo Medina MD Unavailable [phone] Encounter Details Date Type Department Care Team (Latest Contact Info) Description 04/17/2017 Orders Only [facility]INCON[facility] ProviderKhalif MD [address] [place] [id number] Social History Tobacco Use Types Packs/Day Years Used Date Smoking Tobacco: Never Assessed Sex and Gender Information Value Date Recorded Sex Assigned at Not on file Legal Sex Male 3:42 AM [employer] Gender Identity Not on file Sexual Orientation Not on file documented as of this encounter Plan of Treatment Not on file documented as of this encounter Procedures Procedure Name Priority Date/Time Associated Diagnosis Comments PROCEDURE - RESULT 04/17/2017 12 :00 AM CDT documented in this encounter Results * PROCEDURE - RESULT (04/17/2017 12:00 AM CDT) Narrative 04/17/2017 12:00 AM CDT Ordered by an unspecified provider. us Historical Provider Final Res ult documented in this encounter Visit Diagnoses Not on filedocumented in this encounter Additional Health Concerns Infection Onset Date Last Indicated Resolved Time COVID: Suspected 01/12/2022 01/12/2022 01/12/2022 2:33 PM CDT COVID: Suspected 08/12/2023 08/12/2023 08/12/2023 2:39 PM [employer] COVID19 08/12/2023 08/12/2023 08/23/2023 11:3 0 AM [employer] Coronavirus, contact + droplet 08/12/2023 08/12/2023 08/23/2023 11:30 AM [employer] COVID: Recovered 08/23/2023 08/23/2023 11/21/2023 3:06 AM CDT COVID: Suspected 09/04/2023 09/04/2023 09/04/2023 7:59 AM [employer] COVID19 Comment:Pt. Is COVID recovered, last positive 08/12/23 09/04/2023 09/04/2023 09/05/2023 7:58 A M [employer] COVID: Recovered Comment:Added based on recent COVID infection. 09/05/2023 11/21/2023 12/04/2023 3:05 AM C DT COVID: Suspected 11/13/2023 11/13/2023 11/13/2023 9:44 PM CDT COVID: Suspected 11/13/2023 11/14/2023 11/14/2023 4:55 PM CDT Coronavirus, droplet Comment:11/27/23 over 7 days, afebrile, no fever meds, resp status stable. Resolved. ML 11/13/2023 11/13/2023 11/27/2023 4 :28 PM CDT COVID: Suspected 11/25/2023 11/25/2023 11/25/2023 2:34 PM CDT COVID: Suspected 11/25/2023 11/25/2023 11/27/2023 1:51 AM CDT COVID: Suspected 12/28/2023 12/28/2023 12/28/2023 12:45 PM CDT COVID: Suspected 01/09/2024 01/09/2024 01/09/2024 1:47 AM CDT COVID: Suspected 02/18/2024 02/18/2024 02/18/2024 8:07 PM CDT COVID: Suspected 02/26/2024 02/26/2024 02/26/2024 3:51 PM CDT COVID: Suspected Comment:02/28/24 negative covid19 result. ML 02/26/2024 02/26/2024 02/28/2024 8:29 AM C DT COVID: Suspected 02/26/2024 02/26/2024 02/29/2024 2:59 PM CDT documented as of this encounter Care Teams Shoe Repairman Relationship Specialty Start Date End Date Joseph Rust MD [address] [place] [id number] PCP - General 01/11/18 01/18/18 Unknown, Notinfile PCP - General 01/19/18 10/02/18 Joseph Rust MD [address] [place] [id number] PCP - General Family Medicine 10/03/18 10/10/19 Rafael Cordoba MD [address] [place] [address] [facility] [place] [address] PCP - General Family Medicine 10/11/19 01/13/21 Haresh Cordoba [place] [place] [address] PCP - General 01/14/21 01/11/22 Joseph Rust MD NPI: [id number] [place] [id number] PCP - General Family Medicine 01/12/22 Vanna Park NP [address] [place] [address] Referring Physician Otolaryngology 09/03/20 Russ Ley MD [address] [facility] [address] [place] [address] Surgeon Vascular Surgery 11/04/22 Goyo Medina MD [address] [place] [address] Consulting Physician Pulmonary Disease 01/11/24 documented as of this encounter
--- OUTSIDE RECORDS SUMMARY | 2025-07-09 16:23 | XMS_ITS | Encounter Summary ---
Author Organization [facility] Health Address [address] [place] [address] Care Team Providers Care Sales Leader Name Role Phone Joseph Rust Primary Care Provider [phone] Encounter Details Date Type Department Care Team (Late st Contact Info) Description 07/08/2025 Lab Requisition [facility] [address] [place] [address] Mitzi Renteria [address] [place] [id number] Social History Tobacco Use Types Packs/Day Years Used Date Smoking Tobacco: Every Day Cigarettes 0.5 1.9 Started: 01/11/2004; Last attempted to quit: 01/10/2019 Smokeless Tobacco: Never Alcohol Use Standard Drinks/Week Comments No 0 (1 standard drink = 0.6 oz pure alcohol) former drinker, 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 Patient unable to answer 11/13/2024 Q2: How many drinks containi ng alcohol do you have on a typical day when you are drinking? Patient unable to answer Q3: How often do you have si x or more drinks on one occasion? Patient unable to answer 11/13/2024 Overall Financial Resource Strain (CARDIA) Answe r Date Recorded How hard is it for you to pa y for the very basics like food, housing, medical care, and heating? Patient unable to answer 11/12/2024 [facility] [place] of Occupat ional Health - Occupational Stress Questionnaire Answer Date Recorded Do you feel stress - tense, restless, nervous, or anxious, or unable to sleep at night because your mind is troubled all the time - these days? Patient unable to answer 11/12/2024 Hunger Vital Sign Answer Date Recorded Within the past 12 months, y ou worried that your food would run out before you got the money to buy more. Patient unable to answer 11/12/2024 Within the past 12 months, t he food you bought just didn't last and you didn't have money to get more. Patient unable to answer 11/12/2024 PRAPARE - Transportation Answer Date Re corded In the past 12 months, has l ack of transportation kept you from medical appointments or from getting medications? Patient unable to answer 11/12/2024 In the past 12 months, has l ack of transportation kept you from meetings, work, or from getting things needed for daily living? Patient unable to answer 11/12/2024 Housing Stability Vital Sign Answer Mario e Recorded In the last 12 months, was t here a time when you were not able to pay the mortgage or rent on time? Patient unable to answer 11/12/2024 In the past 12 months, how m any times have you moved where you were living? Not on file 11/12/2024 At any time in the past 12 m [facility], were you homeless or living in a skilled nursing (including now)? Patient unable to answer 11/12/2024 Sex and Gender Information Value Date Recorded Sex Assigned at Not on file Legal Sex Male 5:47 PM RECLAMATION ENGINEER Gender Identity Not on file Sexual Orientation Not on file documented as of this encounter Functional Status * Is person deaf or have serious hearing difficulty? Answer Date of Assessment Author No 11/12/2024 6:29 PM CDT Mirian Spencer * Is person blind or have serious difficulty seeing? Answer Date of Assessment Author No 11/12/2024 6:29 PM CDT Mirian Spencer * Does person have serious difficulty walking/climbing stairs? Answer Date of Assessment Author Yes 11/12/2024 6:29 PM CDT Mirian Spencer * Does person have difficulty dressing/bathing? Answer Date of Assessment Author Yes 11/12/2024 6:29 PM CDT Mirian Spencer * Does person have difficulty doing errands alone? Answer Date of Assessment Author Yes 11/12/2024 6:29 PM CDT Mirian Spencer documented as of this encounter Mental Status * Does person have difficulty concentrating/remembering/making decisions? Answer Entry Date Author Yes 11/12/2024 6:29 PM CDT Mirian Spencer documented in this encounter Plan of Treatment Upcoming Encounters Date Type Department Care Team (Late st Contact Info) Description 09/10/2025 9:00 AM RECLAMATION ENGINEER Appointment [facility] [address] [place] [phone] Margie Conte PA-C [address] [place] [address] 09/10/2025 10:30 AM RECLAMATION ENGINEER Office Visit [facility] - Vascular Surgery [address] [place] [address], [place] [phone] Margie Conte PA-C [address] [place] [address] Sirena Cottrell MD [address] [place] [address] [address] [place] [address] documented as of this encounter Procedures Procedure Name Priority Date/Time Associated Diagnosis Comments CBC W AUTO DIFFERENTIAL STAT 07/08/2025 6:20 PM RECLAMATION ENGINEER COMPREHENSIVE METABOLIC PANEL STAT 07/08/2025 6:20 PM RECLAMATION ENGINEER documented in this encounter Results * (ABNORMAL) CBC WITH DIFFERENTIAL (07/08/2025 6:20 PM RECLAMATION ENGINEER) [facility] WBC 5.7 4.0 - 10.7 x10E9/L 07/08/2025 8:35 PM RECLAMATION ENGINEER [facility] RBC Count 1.77(L) 4.30 - 5.80 x10E12/L 07/08/2025 8:35 PM RECLAMATION ENGINEER [facility] Hemoglobin 4.0(LL) 13.3 - 17.5 g/dL 07/08/2025 8:35 PM [facility] Hematocrit 14.4(L) 38.7 - 51.1 % 07/08/2025 8:35 PM [facility] MCV 81.4 80.0 - 98.0 fL 07/08/2025 8:35 PM [facility] MCH 22.6(L) 26.7 - 33.6 pg 07/08/2025 8:35 PM [facility] MCHC 27.8(L) 31.7 - 36.3 g/dL 07/08/2025 8:35 PM [facility] RDW-CV 18.4(H) 11.3 - 14.8 % 07/08/2025 8:35 PM [facility] Platelet Count 139(L) 150 - 420 x10E9/L 07/08/2025 8:35 PM [facility] MPV 11.4 7.8 - 11.4 fL 07/08/2025 8:35 PM [facility] Neutrophil % 70.0 41.0 - 74.0 % 07/08/2025 8:35 PM [facility] Lymphocyte % 13.9(L) 17.0 - 47.0 % 07/08/2025 8:35 PM [facility] Monocyte % 13.9(H) 3.0 - 11.0 % 07/08/2025 8:35 PM [facility] Eosinophil % 1.4 0.0 - 7.0 % 07/08/2025 8:35 PM [facility] Basophil % 0.3 0.0 - 1.6 % 07/08/2025 8:35 PM [facility] Immature Granulocytes % 0.5 0.0 - 1.0 % 07/08/2025 8:35 PM [facility] Neutrophil Absolute 4.01 1.60 - 7.50 x10E9/L 07/08/2025 8:35 PM [facility] Lymphocyte Absolute 0.80(L) 1.00 - 4.40 x10E9/L 07/08/2025 8:35 PM [facility] Monocyte Absolute 0.80 0.15 - 1.00 x10E9/L 07/08/2025 8:35 PM [facility] Eosinophil Absolute 0.08 0.00 - 0.60 x10E9/L 07/08/2025 8:35 PM [facility] Basophil Absolute 0.02 0.00 - 0.13 x10E9/L 07/08/2025 8:35 PM [facility] NRBC 0.5(H) <=0.0 /100 WBC 07/08/2025 8:35 PM [facility] Blood BLOOD SPECIMEN / Unknown 07/08/2025 6:20 PM RECLAMATION ENGINEER 07/08/2025 7:45 PM RECLAMATION ENGINEER us Mitzi Pendegraft LAB - HEMATOLOGY ORDERABLES Fin al Result [facility] [address] [place], [place] [id number] * (ABNORMAL) COMPREHENSIVE METABOLIC PANEL (07/08/2025 6:20 PM RECLAMATION ENGINEER) Glucose 202(H) 70 - 99 mg/dL 07/08/2025 8:15 PM [facility] Sodium 137 136 - 145 mmol/L 07/08/2025 8:15 PM [facility] Potassium 4.0 3.5 - 5.1 mmol/L 07/08/2025 8:15 PM [facility] Chloride 102 98 - 107 mmol/L 07/08/2025 8:15 PM [facility] CO2 26 22 - 29 mmol/L 07/08/2025 8:15 PM [facility] Calcium 8.3(L) 8.4 - 10.4 mg/dL 07/08/2025 8:15 PM [facility] Anion Gap 9 6 - 16 mmol/L 07/08/2025 8:15 PM [facility] BUN 33(H) 7 - 26 mg/dL 07/08/2025 8:15 PM [facility] Creatinine 1.42(H) 0.70 - 1.30 mg/dL 07/08/2025 8:15 PM [facility] Alkaline Phosphatase 113 40 - 150 U/L 07/08/2025 8:15 PM [facility] ALT 10 6 - 57 U/L 07/08/2025 8:15 PM [facility] AST 25 10 - 48 U/L 07/08/2025 8:15 PM RECLAMATION ENGINEER [facility] Protein Total 5.9(L) 6.4 - 8.3 gm/dL 07/08/2025 8:15 PM RECLAMATION ENGINEER [facility] Albumin 3.2 3.1 - 4.5 gm/dL 07/08/2025 8:15 PM RECLAMATION ENGINEER [facility] Bilirubin Total 0.2 0.2 - 1.2 mg/dL 07/08/2025 8:15 PM RECLAMATION ENGINEER [facility] eGFR by CKD-EPI 53(L) >=90 mL/min/1.7 3 m2 07/08/2025 8:15 PM RECLAMATION ENGINEER [facility] Comment:Estimated Glomerular Filtration Rate (eGFR) calculated using the CKD-EPI Creatinine Equation (2020), per the National Kidney Foundation and [place] [employer]ph[employer] recommendations. Blood BLOOD SPECIMEN / Unknown Venipuncture / Unknown 07/08/2025 6:20 PM RECLAMATION ENGINEER 07/08/2025 7:45 PM RECLAMATION ENGINEER us Mitzi Pendegraft LAB - CHEMISTRY ORDERABLES Gabriela l Result [facility] [address] [place], [place] [id number] documented in this encounter Visit Diagnoses Not on filedocumented in this encounter Care Teams Sales Leader Relationship Specialty Start Date End Date Joseph Rust [address] [place] [phone] PCP - General 03/28/16 documented as of this encounter
--- OUTSIDE RECORDS SUMMARY | 2025-07-09 16:23 | XMS_ITS | Encounter Summary ---
Author Organization [facility] Facility Care Team Providers Care Production Service Manager Name Role Phone Joseph Rust MD Primary Care Provider [phone] Unknown, Notinfile Primary Care Provider Unavail able Joseph Rust MD Primary Care Provider [phone] Rafael Cordoba MD Primary Care Provider + [phone] Vanna Park NP Unavailable [phone] Haresh Cordoba DO Primary Care Provider + Joseph Rust MD Primary Care Provider [phone] Russ Ley MD Unavailable [phone] Goyo Medina MD Unavailable [phone] Encounter Details Date Type Department Care Team (Latest Contact Info) Description 02/16/2017 Orders Only [facility] CLINCON[facility] ProviderKhalif MD [address] [place] [address] Social History Tobacco Use Types Packs/Day Years Used Date Smoking Tobacco: Never Assessed Sex and Gender Information Value Date Recorded Sex Assigned at Not on file Legal Sex Male 3:42 AM MESH MAN Gender Identity Not on file Sexual Orientation Not on file documented as of this encounter Functional Status documented as of this encounter Plan of Treatment Not on file documented as of this encounter Procedures Procedure Name Priority Date/Time Associated Diagnosis Comments CARDIOLOGY REPORT 02/16/2017 12: 00 AM CDT CARDIOLOGY REPORT 02/16/2017 12: 00 AM CDT CARDIOLOGY REPORT 02/16/2017 12: 00 AM CDT documented in this encounter Results * CARDIOLOGY REPORT (02/16/2017 12:00 AM CDT) Anatomical Region Laterality Modality Other Narrative 02/16/2017 12:00 AM CDT Ordered by an unspecified provider. us Historical Provider MD [facility] PROCE DURES Final Result * CARDIOLOGY REPORT (02/16/2017 12:00 AM CDT) Anatomical Region Laterality Modality Other Narrative 02/16/2017 12:00 AM CDT Ordered by an unspecified provider. [facility] Provider CV CARDIAC SERVICES PROCE DURES Final Result * CARDIOLOGY REPORT (02/16/2017 12:00 AM CDT) Anatomical Region Laterality Modality Other Narrative 02/16/2017 12:00 AM CDT Ordered by an unspecified provider. [facility] Provider MD [facility] CARDIAC SERVICES PROCE DURES Final Result documented in this encounter Visit Diagnoses Not on filedocumented in this encounter Additional Health Concerns Infection Onset Date Last Indicated Resolved Time COVID: Suspected 01/12/2022 01/12/2022 01/12/2022 2:33 PM CDT COVID: Suspected 08/12/2023 08/12/2023 08/12/2023 2:39 PM MESH MAN COVID19 08/12/2023 08/12/2023 08/23/2023 11:3 0 AM MESH MAN Coronavirus, contact + droplet 08/12/2023 08/12/2023 08/23/2023 11:30 AM MESH MAN COVID: Recovered 08/23/2023 08/23/2023 11/21/2023 3:06 AM CDT COVID: Suspected 09/04/2023 09/04/2023 09/04/2023 7:59 AM MESH MAN COVID19 Comment:Pt. Is COVID recovered, last positive 08/12/23 09/04/2023 09/04/2023 09/05/2023 7:58 A M MESH MAN COVID: Recovered Comment:Added based on recent COVID [...] documented as of this encounter Care Teams Production Service Manager Relationship Specialty Start Date End Date Joseph Rust MD [address] [place] [address] PCP - General 01/11/18 01/18/18 Unknown, Notinfile PCP - General 01/19/18 10/02/18 Joseph Rust MD [address] [place] [address] PCP - General Family Medicine 10/03/18 10/10/19 Rafael Cordoba MD [address] [facility] [place] [facility] [address] [place] [address] PCP - General Family Medicine 10/11/19 01/13/21 Haresh Cordoba DO [address] [place] [address] PCP - General 01/14/21 01/11/22 Joseph Rust MD [address] [place] [address] PCP - General Family Medicine 01/12/22 Vanna Park NP [address] [place] [address] Referring Physician Otolaryngology 09/03/20 Russ Ley MD [address] [facility] [facility] [address] [facility] [address] [place] [address] Surgeon Vascular Surgery 11/04/22 Goyo Medina MD [address] [facility] [address] [place] [address] Consulting Physician Pulmonary Disease 01/11/24 documented as of this encounter
--- OUTSIDE RECORDS SUMMARY | 2025-07-09 16:23 | XMS_ITS | Encounter Summary ---
Author Organization [facility] Facility Care Team Providers Care Plant Specialist Name Role Phone Joseph Rust MD Primary Care Provider [phone] Unknown, Notinfile Primary Care Provider Unavail able Joseph Rust MD Primary Care Provider [phone] Rafael Cordoba MD Primary Care Provider + [phone] Vanna Park NP Unavailable [phone] Haresh Cordoba DO Primary Care Provider + Joseph Rust MD Primary Care Provider [phone] Russ Ley MD Unavailable [phone] Goyo Medina MD Unavailable [phone] Encounter Details Date Type Department Care Team (Latest Contact Info) Description 01/27/2017 Orders Only [facility] CLINCONV ProviderKhalif MD [address] [place] [address] Social History Tobacco Use Types Packs/Day Years Used Date Smoking Tobacco: Never Assessed Sex and Gender Information Value Date Recorded Sex Assigned at Not on file Legal Sex Male 3:42 AM SENIOR RECRUITMENT CONSULTANT Gender Identity Not on file Sexual Orientation Not on file documented as of this encounter Plan of Treatment Not on file documented as of this encounter Procedures Procedure Name Priority Date/Time Associated Diagnosis Comments CARDIOLOGY REPORT 01/27/2017 12: 00 AM CDT documented in this encounter Results * CARDIOLOGY REPORT (01/27/2017 12:00 AM CDT) Anatomical Region Laterality Modality Other Narrative 01/27/2017 12:00 AM CDT Ordered by an unspecified provider. us Historical Provider [facility] CALE FELDMAN Final Result documented in this encounter Visit Diagnoses Not on filedocumented in this encounter Additional Health Concerns Infection Onset Date Last Indicated Resolved Time COVID: Suspected 01/12/2022 01/12/2022 01/12/2022 2:33 PM CDT COVID: Suspected 08/12/2023 08/12/2023 08/12/2023 2:39 PM SENIOR RECRUITMENT CONSULTANT COVID19 08/12/2023 08/12/2023 08/23/2023 11:3 0 AM SENIOR RECRUITMENT CONSULTANT Coronavirus, contact + droplet 08/12/2023 08/12/2023 08/23/2023 11:30 AM SENIOR RECRUITMENT CONSULTANT COVID: Recovered 08/23/2023 08/23/2023 11/21/2023 3:06 AM CDT COVID: Suspected 09/04/2023 09/04/2023 09/04/2023 7:59 AM SENIOR RECRUITMENT CONSULTANT COVID19 Comment:Pt. Is COVID recovered, last positive 08/12/23 09/04/2023 09/04/2023 09/05/2023 7:58 A M SENIOR RECRUITMENT CONSULTANT COVID: Recovered Comment:Added based on recent COVID [...] documented as of this encounter Care Teams Plant Specialist Relationship Specialty Start Date End Date Joseph Rust MD [address] [place] [address] PCP - General 01/11/18 01/18/18 Unknown, Notinfile PCP - General 01/19/18 10/02/18 Joseph Rust MD [address] [place] [address] PCP - General Family Medicine 10/03/18 10/10/19 Rafael Cordoba MD [address] [place] [address] [place] [address] PCP - General Family Medicine 10/11/19 01/13/21 Haresh Cordoba DO [address] [place] [address] [place] [address] PCP - General 01/14/21 01/11/22 Joseph Rust MD [address] [place] [address] PCP - General Family Medicine 01/12/22 [place] [address] Referring Physician Otolaryngology 09/03/20 Russ Ley MD [address] [facility] [address] [facility] [address] [place] [address] Surgeon Vascular Surgery 11/04/22 Goyo Medina MD [address] [facility] [address] [place] [address] Consulting Physician Pulmonary Disease 01/11/24 documented as of this encounter
--- OUTSIDE RECORDS SUMMARY | 2025-07-09 16:23 | XMS_ITS | Clinical Summary ---
Author Organization [facility] Address [address] [place] [address] Phone Care Team Providers Care Survey And Mapping Technician Name Role Phone Joseph Rust MD Primary Care Provider [phone] Allergies Active Allergy Reactions Criticality Noted Date [...] 24 HOUR PERIOD. Active blood sugar diagnostic (WaveRxuch Verio test strips) Strip Test blood sugar [...] 6 units 15 mL 4 Active Insulin Kooskia, Disposable, (Comfort EZ Pen Kooskia) 31 gauge x 5/16 Needle Use as [...] insulin 07/26/2023 SAYDA (acute kidney injury) 07/26/2023 Social History Tobacco Use Types Packs/Day Years [...] on file Legal Sex Male 11:54 PM INSULATION HELPER Gender Identity Not on file Sexual Orientation [...] Flex Sig/CT Colonography Q 5 years 12/26/1999 RSV VACCINE (60+ or ) (1 - Risk 50-74 years 1-dose series) 2004 ZOSTER VACCINE (1 of 2) 2004 PNEUMOCOCCAL VACCINE 50+ YEA RS (2 of 2 - PCV) 06/14/2016 06/14/2015 DIABETES ANNUAL RETINAL EXAM 12/13/2018 12/13/2017 INFLUENZA VACCINE (#1) 2025 , 11/16/2021, 05/18/2018, Additional history exists COVID-19 Vaccine (2 - 2024-2 6 season) 2025 08/24/2021 DIABETES HBA1C Q 6 MONTHS 05/16/20252024, 06/14/2024, 05/09/2024, Additional history exists Procedures Procedure Name Priority Date/Time Associated Diagnosis Comments HEMOGLOBIN A1C Routine 07/31/2023 10:19 AM INSULATION HELPER from Last 3 Months or Most Recently Relevant to Health Maintenance Results * (ABNORMAL) HEMOGLOBIN A1C (07/31/2023 10:19 AM INSULATION HELPER) HEMOGLOBIN A1C 6.7(H) <=5.6 % 08/01/2023 12:49 AM INSULATION HELPER [facility] [employer] [facility] EST. AVG GLUCOSE, A1C 146 mg/dL 08/01/2023 12:49 AM INSULATION HELPER [facility] [employer] [facility] Blood Venipuncture / Unknown 07/31/2023 10:19 AM INSULATION HELPER 07/31/2023 10:32 AM INSULATION HELPER Narrative [facility] [employer] [facility] - 08/01/2023 12:49 AM INSULATION HELPER HGB A1C INTERPRETATION NORMAL: <5.7% PRE-DIABETES: 5.7 - 6.4% DIABETES: 6.5% OR GREATER Ethan Abel MD CHEMISTRY ORDERABLES Final Resu lt [facility] CLIA# [id number] [place] [address] from Last 3 Months or Most Recently Relevant to Health Maintenance Insurance [facility] DUAL COMPLETE PPO DSNP [facility] [id number] RX [employer] RX Member Subscriber Plan / Payer (Ef fective 2023-Present) Name:Maksim Scanlon Relation to Subscriber:Self Name:Maksim Scanlon Payer ID:Not on file Group ID:[id number] Type:RX Medicare Part D Address: [place] Advance Directives For more information, please contact: [phone] * Full Code (Latest Code Status on File) Date Activated Date Inactivated Comments 03/06/2024 11:27 AM 03/09/2024 2:15 AM * Full Code Date Activated Date Inactivated Comments 07/26/2023 8:17 AM 08/03/2023 7:00 PM Care Teams Survey And Mapping Technician Relationship Specialty Start Date End Date Joseph Rust MD [address] [place] [phone] PCP - General Family Practice 03/06/24
--- OUTSIDE RECORDS SUMMARY | 2025-07-09 16:23 | XMS_ITS | Clinical Summary ---
Author Organization [facility] [employer] Address [address] [place] [address] Care Team Providers Care Chairman Ceo Name Role Phone Joseph Rust Primary Care Provider [phone] Source Comments [facility],non-owned Affiliates and Associated Physician Practices is amultiple site organization consisting of ambulatory clinics and hospital sitesin [place], [place], [place]. This disclosure is being madepursuant to the Care Everywhere program and may not contain all information available regarding this patient. Last updated 18.[facility] [employer] Allergies Active Allergy Reactions Criticality Noted Date Comments Metformin Other High 11/17/2023 Lactic acidosis Vancomycin Palpitations,Shortne ss of Breath High 01/14/2022 Medications * Be aware that medications may not be up to date on this document. Alwaysverify current medications with the patient. carvedilol (COREG) 25 MG tablet Take 1 (one) tablet by mouth 2 times daily with morning and evening meal Active albuterol HFA (Proventil; Ventolin; Proair) 108 (90 Base) MCG/ACT inhaler Inhale 2 (two) puffs by mouth every 6 hours as needed for Shortness of Breath, Wheezing or Cough Active atorvastatin (Lipitor) 80 MG tablet Take 1 (one) tablet by mouth at bedtime Activ e budesonide-form oterol (Symbicort) 160-4.5 MCG/ACT inhaler Inhale 2 (two) puffs by mouth 2 times daily Active Continuous Glucose Sensor (Dexcom G7 Sensor) [facility] Use 1 device as directed Active DULoxetine (Cymbalta) 60 MG capsule Take 1 (one) capsule by mouth once daily Active omeprazole (PriLOSEC) 20 MG capsule Take 1 (one) capsule by mouth daily before breakfast Active hydrOXYzine HCl (Atarax) 10 MG tablet Take 1 (one) tablet by mouth 2 times daily as needed for Itching (PRN for itching or anxiety) Activ e pregabalin (Lyrica) 150 MG capsule Take 1 (one) capsule by mouth 3 times daily Active umeclidinium (Incruse Ellipta) 62.5 MCG/ACT inhaler Inhale 1 (one) puff by mouth once daily Activ e insulin glargine-yfgn (Semglee) pen Inject 10 (ten) Units subcutaneously once daily 12/16/19 Active acetaminophen (Tylenol) 500 MG tablet Take 2 (two) tablets by mouth every 8 hours as needed for Fever or Pain Maximum allowable Acetaminophen amount = 4 Grams (4000 mg) / 24 hours. 11/20/19 Active clopidogrel (Plavix) 75 MG tabletIndicatio ns:Cerebrovascu lar Accident,RESTAR T on 11/26/24, (14 days post op) Take 1 (one) tablet by mouth once daily Reasons: Cerebrovascular Accident or Stroke, RESTART on 11/26/24, (14 days post op) 11/27/19 Active apixaban (Eliquis) 5 MG tabletIndicatio ns:Atrial Fibrillation,Ce rebrovascular Accident,RESTAR T on 11/26/24 (14 days POST OP) Take 1 (one) tablet by mouth 2 times daily Reasons: Atrial Fibrillation, Cerebrovascular Accident or Stroke, RESTART on 11/26/24 (14 days POST OP) 11/27/19 Active empagliflozin (Jardiance) 10 MG tablet Take 1 (one) tablet by mouth once daily 11/21/19 Active guanFACINE (Tenex) 1 MG tablet Take 1 (one) tablet by mouth nightly as needed (insomnia or agitation) 11/20/19 Active losartan (Cozaar) 50 MG tablet Take 1 (one) tablet by mouth once daily 11/21/19 Active methocarbamol (Robaxin) 750 MG tablet Take 1 (one) tablet by mouth every 6 hours as needed for Muscle Spasms 11/20/19 Active nicotine (Nicoderm CQ) 14 MG/24HR patchIndication s:S/P lumbar laminectomy Apply 1 (one) patch to skin once daily 11/21/19 Active polyethylene glycol 3350 (Miralax) 17 g packet Take 17 (seventeen) g by mouth once daily as needed for Constipation 11/20/19 25 Active senna (Senokot) 8.6 MG tablet Take 1 (one) tablet by mouth once daily as needed for Constipation 11/20/19 25 Active oxyCODONE, immediate release, (Roxicodone) 5 MG tabletIndicatio ns:S/P lumbar laminectomy Take 1 (one) tablet by mouth every 4 hours as needed for Pain 12 tablet 11/20/19 25 Active amLODIPine (Norvasc) 5 MG tablet Take 1 (one) tablet by mouth 12/14/19 Active Lantus SoloStar pen INJECT 18 UNITS UNDER SKIN DAILY AT 9PM 11/09/19 25 Active insulin lispro (HumaLOG;ADMelo g) 100 UNIT/ML pen 4 unit(s), Subcutaneous, TID, 0 Refill(s), Indication: DM 12/14/19 25 Active B-D ULTRAFINE III SHORT PEN 31G X 8 MM needle USE FOUR TIMES DAILY DIRECTED 08/30/19 25 Active lactulose (Chronulac) 10 GM/15ML solution TAKE 15 ML BY MOUTH EVERY DAY 11/06/19 25 Active senna-docusate (Senokot-S) 8.6-50 MG tablet 1 tab(s), Oral, Daily, PRN constipation, 0 Refill(s), Indication: constipation 12/14/19 25 Active Anoro Ellipta 62.5-25 MCG/ACT inhaler 12/09/19 25 Active Active Problems Problem Noted Date Diagnosed Date S/P lumbar laminectomy 11/17/2024 Assessment & Plan (11/18/2024 1:23 PM CDT): nPOA/stable 11/12/24-s/p L2-L3, L3-4 and L4-5 TLIF, laminectomies and PSF. -Followed by NSGY -PT/OT evaluated for rehab/SNF-recs for SNF placement. Plan - Neuro exam q4 - Cont Tylenol 1gm q8hrs, Lyrica 150mg 3x day, Robaxin 750mg q6hrs, Duloxetine 60mg daily, and Oxycodone 5mg for mild pain q4h PRN and Oxycodone 10mg for severe pain q4h PRN - Activity as tolerated, no brace required at this time -monitor drain output -IS -bowel regimen-change Miralax to 17gms daily, Senna 8.6mg daily -SBP < 160 -SW/CM working on SNF placement, preferably [facility] - Pt to follow up w/Tran Barry NP in 2 weeks for wound check. NSGY will schedule their follow up appointment, or they can call [phone]. Neurosurgery follow up information also placed in [facility] discharge navigator. Assessment & Plan (11/17/2024 1:33 PM CDT): nPOA/stable 11/12/24-s/p L2-L3, L3-4 and L4-5 TLIF, laminectomies and PSF. -Followed by NSGY Plan - Neuro exam q4 - Cont Tylenol 1gm q8hrs, Lyrica 150mg 3x day, Robaxin 750mg q6hrs, Duloxetine 60mg daily, and Oxycodone 5mg for mild pain q4h PRN and Oxycodone 10mg for severe pain q4h PRN - Activity as tolerated, no brace required at this time -monitor drain output -IS -bowel regimen-change Miralax to 17gms daily, Senna 8.6mg daily -SBP < 160 -PT/OT order placed to eval discharge needs History of CVA with residual deficit 11/17/2024 Assessment & Plan (11/18/2024 1:23 PM CDT): POA/Stable -Home medications Plavix 75mg daily Lipitor 80mg daily -Holding Eliquis/Plavix per NSGY s/p laminectomy Plan -Cont Lipitor 80mg daily Assessment & Plan (11/17/2024 1:33 PM CDT): POA/Stable -Home medications Plavix 75mg daily Lipitor 80mg daily -Holding Eliquis/Plavix per NSGY s/p laminectomy Plan -Restart Plavix on 11/19 per NSGY -Cont Lipitor 80mg daily Other constipation 11/17/2024 Assessment & Plan (11/18/2024 7:33 AM CDT): -Last BM 11/12 Plan Change Miralax 17mg from PRN to daily Senna 8.6mg po daily Assessment & Plan (11/17/2024 1:33 PM CDT): -Last BM 11/12 Plan Change Miralax 17mg from PRN to daily Senna 8.6mg po daily Other secondary hypertension 11/16/2024 Assessment & Plan (11/18/2024 1:23 PM CDT): POA/Stable -Home medications Losartan 25mg daily Coreg 25mg twice daily -BP elevated today Plan -Increase Losartan 50mg daily -cont Coreg 25 mg BID -monitor daily weight & UOP -monitor CBC/ BMP/ Mg/Ph/ K - replace electrolytes PRN Assessment & Plan (11/17/2024 1:33 PM CDT): POA/Stable -Home medications Losartan 25mg daily Coreg 25mg twice daily Plan -Cont Losartan 25mg daily -cont Coreg 25 mg BID -monitor daily weight & UOP -monitor CBC/ BMP/ Mg/Ph/ K - replace electrolytes PRN DM2 (diabetes mellitus, type 2) 11/16/2024 Assessment & Plan (11/18/2024 1:23 PM CDT): POA/Stable -A1C 6.9 3 on 11/13/24 -MINOO 65 -Insulin antibodies negative -BG elevated 200-300's -Home medication Insulin Glargine 10U SQ Novolog SSL w/meals Glipizide PO daily Plan -Change diet to consistent carb w/high protein supplements w/each meal -FSBG TID w meals, and the bedtime -Basal insulin: Increase Lantus 10 units qhs -Prandial: none -Correctional: Novolog (0-6 units, sensitive protocol) TID w meals -hypoglycemic protocol Assessment & Plan (11/17/2024 1:33 PM CDT): POA/Stable -A1C 6.9 3 on 11/13/24 -MINOO 65 -Insulin antibodies negative -Home medication Insulin Glargine 10U SQ Novolog SSL w/meals Glipizide PO daily Plan -Change diet to consistent carb w/high protein supplements w/each meal -FSBG TID w meals, and the bedtime -Basal insulin: Lantus 5 units d -Prandial: none -Correctional: Novolog (0-6 units, sensitive protocol) TID w meals -hypoglycemic protocol CAD (coronary artery disease) 11/16/2024 Assessment & Plan (11/18/2024 1:23 PM CDT): POA/Stable -Home medications Plavix 75mg daily Lipitor 80mg daily -Holding Eliquis/Plavix per NSGY s/p laminectomy -Mag 1.9-received 2gms Mag 11/18, K 4.3 Plan -Restart Plavix on 11/26 (14 days post op) per NSGY -Cont Lipitor 80mg daily -CTM electrolytes K>4, Mag >2 Assessment & Plan (11/17/2024 1:33 PM CDT): POA/Stable -Home medications Plavix 75mg daily Lipitor 80mg daily -Holding Eliquis/Plavix per NSGY s/p laminectomy -Mag 1.7-received 2gms Mag 11/17, K 4.3 Plan -Restart Plavix on 11/19 per NSGY -Cont Lipitor 80mg daily -CTM electrolytes K>4, Mag >2 (HFpEF) heart failure with preserved ejection fr action 11/16/2024 Assessment & Plan (11/18/2024 7:33 AM CDT): POA/stable On GDMT at home -Started on Jardiance 10mg daily 11/16 Plan -Cont coreg 25mg bid -Cont Jardiance 10mg daily Assessment & Plan (11/17/2024 1:33 PM CDT): POA/stable On GDMT at home -Started on Jardiance 10mg daily 11/16 Plan -Cont coreg 25mg bid -Cont Jardiance 10mg daily Chronic atrial fibrillation 11/16/2024 Assessment & Plan (11/18/2024 1:23 PM CDT): POA/Stable -Home med-Eliquis -Holding Eliquis per NSGY s/p laminectomy Plan -ok to restart Eliquis on 11/26 (14 days post op) per NSGY -Cont Heparin 5,000U sq q8hrs DVT proph Assessment & Plan (11/17/2024 1:33 PM CDT): POA/Stable -Home med-Eliquis -Holding Eliquis per NSGY s/p laminectomy Plan -ok to restart Eliquis 11/22 per NSGY -Cont Heparin 5,000U sq q8hrs DVT proph COPD (chronic obstructive pulmonary disease) Assessment & Plan (11/18/2024 7:33 AM CDT): POA/Stable -Home meds Incruse 62.5mcg 1 puff daily Symbicort 2 puffs twice daily Plan -Cont Symbicort 160-4.5 BID -Restart Incruse 1 puff daily -Albuterol q6h PRN -Oxygen titration protocol -Nicotine patch 14 d Assessment & Plan (11/17/2024 1:33 PM CDT): POA/Stable -Home meds Incruse 62.5mcg 1 puff daily Symbicort 2 puffs twice daily Plan -Cont Symbicort 160-4.5 BID -Restart Incruse 1 puff daily -Albuterol q6h PRN -Oxygen titration protocol -Nicotine patch 14 d Chronic low back pain with r ight-sided sciatica, unspecified back pain laterality 11/12/2024 Assessment & Plan (11/18/2024 7:33 AM CDT): POA/Stable See Assessment/Plan for s/p lumbar laminectomy Assessment & Plan (11/17/2024 1:33 PM CDT): POA/Stable See Assessment/Plan for s/p lumbar laminectomy Umbilical hernia 06/16/2024 Altered mental status, unspe cified altered mental status type 06/13/2024 Hypoglycemia 06/13/2024 Elevated LFTs 06/13/2024 Cervical myelopathy 05/18/2024 Essential (primary) hypertension 05/18/2024 Type 2 diabetes mellitus 05/18/2024 Paroxysmal atrial fibrillation 05/18/2024 Chronic obstructive pulmonary disease (COPD) Hypoalbuminemia 05/18/2024 Normocytic anemia 05/18/2024 Weakness 05/08/2024 Cervical stenosis of spinal canal 05/08/2024 Upper extremity weakness 05/08/2024 Rales 02/10/2019 Iron deficiency anemia 02/10/2019 Chronic back pain 02/10/2019 Encounters Date Type Department Care Team Description 07/08/2025 Lab Requisition [facility] [address] [place] [address] Pendegraft, Mitzi 06/24/2025 Travel 05/13/2025 Travel from Last 3 Months Family History Medical History Relation Name Comments Diabetes - Type 2 Mother Hypertension Mother Cancer - Colon Neg Hx Other - Hematologic Neg Hx Relation Name Status Comments Mother Social History Tobacco Use Types Packs/Day Years Used Date Smoking Tobacco: Every Day Cigarettes 0.5 1.9 Started: 01/11/2004; Last attempted to quit: 01/10/2019 Smokeless Tobacco: Never Tobacco Cessation:Ready to Q uit: Yes; Counseling Given: Yes Alcohol Use Standard Drinks/Week Comments No 0 [...] and heating? Patient unable to answer 11/12/2024 [employer] - Occupational Stress [...] any time in the past 12 m onths, were you homeless or living in a custodial (including now)? 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 Gender Identity Not on file Sexual Orientation Not on file Last Filed Vital Signs Vital Sign Reading Time Taken Comments Blood Pressure 100/62 02/03/2025 10:31 AM CDT Pulse 70 02/03/2025 10:31 AM CDT Temperature 36.4 C (97.6 F) 02/03/2025 10:31 AM CDT Respiratory Rate 18 12/03/2024 10:20 AM CDT Oxygen Saturation 97% 02/03/2025 10:31 AM CDT Inhaled Oxygen Concentration 21% 05/21/2024 5 :41 AM CDT Weight 67.6 kg (149 lb) 02/03/2025 10:31 AM CDT Height 167.6 cm (5' 6) 02/03/2025 10:31 AM CDT Body Mass Index 24.05 02/03/2025 10:31 AM CDT Plan of Treatment Upcoming Encounters Date Type Department Care Team (Late st Contact Info) Description 09/10/2025 9:00 AM 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 PRODUCTION 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 Appointment [facility] [address] [place] [id number] Margie Conte PA-C [address] [place] [address] 09/10/2025 10:30 AM PLASTICS PRODUCTION MACHINE OPERATOR Office Visit [facility] [address] [place] [address], [place] [phone] Margie Conte PA-C [address] [place] [address] Sirena Cottrell MD [address] [place] [address] [address] [place] [phone] Health Maintenance Due Date Last Done Comments COLOGUARD (AGES 45-75) - COLON CA SCREENING 1954 COLON MONITORING 1954 COLONOSCOPY - COLON CA SCREENING 1954 CT COLONOGRAPHY - COLON CA SCREENING 1954 Colorectal Cancer Screening 1954 FIT - COLON CA SCREENING 1954 FLEX SIG - COLON CA SCREENING 1954 MEDICARE AWV 12 MONTHS 1954 DTAP/TDAP/TD VACCINES (1 - Tdap) 1973 PNEUMOCOCCAL VACCINE 50+ (1 of 2 - PCV) 1973 ZOSTER VACCINE (1 of 2) 2004 Respiratory Syncytial Virus (RSV) Vaccine Pt: or over 60 yrs (1 - Risk 60-74 years 1-dose series) 2014 AAA SCREENING 12/26/2019 DIABETES RETINOPATHY SCREENING 05/18/2024 12/13/2017 DIABETES-FOOT EXAM WITH MONOFILAMENT 05/18/2024 DEPRESSION SCREENING 08/28/2024 DIABETES - URINE PROTEIN SCREENING 08/28/2024 COVID-19 VACCINE ( season) 2025 08/24/2021, 12/11/2020, 11/19/2020 INFLUENZA VACCINE (#1) 2025 , 05/31/2024, 08/23/2023, Additional history exists DIABETES-HGB A1C 05/16/2025 11/13/2024, , 05/09/2024 DIABETES-SERUM CREATININE 11/17/20252024, 11/17/2024, 11/15/2024, Additional history exists HEPATITIS C SCREENING Completed 02/10/2019 HEPATITIS B VACCINE Aged Out No longe r eligible based on patient's age to complete this topic HIB VACCINE Aged Out No longer eligi ble based on patient's age to complete this topic HPV VACCINE Aged Out No longer eligi ble based on patient's age to complete this topic MENINGOCOCCAL (Group B) VACCINE SHARED DECISION-MAKING Aged Out No longer eligible based on patient's age to complete this topic MENINGOCOCCAL GROUPS A/C/Y/W VACCINE Aged Out No longer eligible based on patient's age to complete this topic Medical Devices Implanted Type Area Postal Clerk Device Identifier Shelf Expiration Date Model / Serial / Lot Screw Set M6 Spne Oc Upr Thor Infnt - Sn/A Implanted:Qty : 6 on 05/17/2024 by Dex Murphy MD at [facility] N/A: Spine Cervical [employer] Spine [id number] / N/A / N/A Description:C3-C5 Screw 3.5mm 28mm Ma Spne Oc Upr Thor - Sn/A Implanted:Qty : 1 on 05/17/2024 by Dex Murphy MD at [facility] Left: Spine Cervical [employer] [id number] / N/A / N/A Description:C3 Screw 3.5mm 26mm Ma Spne Oc Upr Thor - Sn/A Implanted:Qty : 1 on 05/17/2024 by Dex Murphy MD at [facility] Right: Spine Cervical [employer] [id number] / N/A / N/A Description:C3 Screw 3.5mm 24mm Ma Spne Bone - Sn/A Implanted:Qty : 4 on 05/17/2024 by Dex Murphy MD at [facility] Right: Spine Cervical [employer] [id number] / N/A / N/A Description:C4+C5 Ciro Spnl 50mm 3.5mm Pcut Implanted:Qty : 2 on 05/17/2024 by Dex Murphy MD at [facility] Right: Spine Cervical [employer] [id number] / / Description:C3-C5 Spcr Spnl 7mm [address] Shrt - Sna Implanted:Qty : 1 on 11/12/2024 by Dex Murphy MD at [facility] Spine Lumbar [employer] Spine 02/13/2032 [id number] / NA / [id number] Shirley Dbm Inject 9cc Implanted:Qty : 1 on 11/12/2024 by Dex Murphy MD at [facility] Spine Lumbar [employer] Inc 12/18/2025 [id number] / [id number] / NA Spcr Spnl 7mm Catal[address]ft Pl Shrt - Sna Implanted:Qty : 1 on 11/12/2024 by Dex Murphy MD at [facility] Spine Lumbar [employer] Spine 02/13/2032 [id number] / NA / [id number] Shirley Dbf Inject 9cc Implanted:Qty : 1 on 11/12/2024 by Dex Murphy MD at [facility] Spine Lumbar 06/17/2026 [id number] / [id number] / NA Spcr Spnl 7mm Catal[address]ft Pl Shrt - Sna Implanted:Qty : 1 on 11/12/2024 by Dex Murphy MD at [facility] Spine Lumbar [employer] Spine [id number] 07/08/2032 [id number] / NA / [id number] Spcr Spnl 7mm Catal[address] Shrt - Sna Implanted:Qty : 1 on 11/12/2024 by Dex Murphy MD at [facility] Spine Lumbar [employer] Spine [id number] 07/08/2032 [id number] / NA / [id number] Ciro Spnl 100mm 5.5mm Cd Hzn Crv Cocrmo - Sna Implanted:Qty : 1 on 11/12/2024 by Dex Murphy MD at [facility] Spine Lumbar [employer] Inc [id number] / NA / NA Ciro Spnl 90mm 5.5mm Cd Hzn Crv Cocrmo - Sna Implanted:Qty : 1 on 11/12/2024 by Dex Murphy MD at [facility] Spine Lumbar [employer] Inc [id number] / NA / NA Graft Bone Grftn Dbm Aspt 5x2.5cm Post - [id number] Implanted:Qty : 1 on 11/12/2024 by Dex Murphy MD at [facility] Spine Lumbar [employer] Inc [id number] 10/01/2027 [id number] / [id number] / NA Screw Set Ti Spnl Brk Off Cd Hzn Nonster - Sna Implanted:Qty : 8 on 11/12/2024 by Dex Murphy MD at [facility] Spine Lumbar [employer] Inc [id number] / NA / NA Screw 6.5mm 45mm Ma Spne Solera Cd Hzn - Sna Implanted:Qty : 2 on 11/12/2024 by Dex Murphy MD at [facility] Spine Lumbar [employer] Inc [id number] / NA / NA Screw 6.5mm 50mm Ma Spne Solera Cd Hzn - Sna Implanted:Qty : 6 on 11/12/2024 by Dex Murphy MD at [facility] Spine Lumbar [employer] Inc [id number] / NA / NA Hubbard Dbm Inject 9cc Implanted:Qty : 1 on 11/12/2024 by Dex Murphy MD at [facility] Spine Lumbar [employer] Inc [id number] 07/18/2026 [id number] / [id number] / NA Procedures Procedure Name Priority Date/Time Associated Diagnosis Comments CBC W AUTO DIFFERENTIAL STAT 07/08/2025 6:20 PM PLASTICS PRODUCTION MACHINE OPERATOR COMPREHENSIVE METABOLIC PANEL STAT 07/08/2025 6:20 PM PLASTICS PRODUCTION MACHINE OPERATOR HEMOGLOBIN A1C Routine 11/13/2024 3:44 AM CDT HEPATITIS C AB SCREEN RFLX NAAT QUANT STAT 02/10/2019 5:20 PM CDT from Last 3 Months or Most Recently Relevant to Health Maintenance Results * (ABNORMAL) CBC WITH DIFFERENTIAL (07/08/2025 6:20 PM PLASTICS PRODUCTION MACHINE OPERATOR) WBC 5.7 4.0 - 10.7 x10E9/L 07/08/2025 8:35 PM PLASTICS PRODUCTION MACHINE OPERATOR [facility] RBC Count 1.77(L) 4.30 - 5.80 x10E12/L 07/08/2025 8:35 PM PLASTICS PRODUCTION MACHINE OPERATOR [facility] Hemoglobin 4.0(LL) 13.3 - 17.5 g/dL 07/08/2025 8:35 PM PLASTICS PRODUCTION MACHINE OPERATOR [facility] Hematocrit 14.4(L) 38.7 - 51.1 % 07/08/2025 8:35 PM PLASTICS PRODUCTION MACHINE OPERATOR [facility] MCV 81.4 80.0 - 98.0 fL 07/08/2025 8:35 PM PLASTICS PRODUCTION MACHINE OPERATOR [facility] MCH 22.6(L) 26.7 - 33.6 pg 07/08/2025 8:35 PM PLASTICS PRODUCTION MACHINE OPERATOR [facility] MCHC 27.8(L) 31.7 - 36.3 g/dL 07/08/2025 8:35 PM PLASTICS PRODUCTION MACHINE OPERATOR [facility] RDW-CV 18.4(H) 11.3 - 14.8 % 07/08/2025 8:35 PM PLASTICS PRODUCTION MACHINE OPERATOR [facility] Platelet Count 139(L) 150 - 420 x10E9/L 07/08/2025 8:35 PM PLASTICS PRODUCTION MACHINE OPERATOR [facility] MPV 11.4 7.8 - 11.4 fL 07/08/2025 8:35 PM PLASTICS PRODUCTION MACHINE OPERATOR [facility] Neutrophil % 70.0 41.0 - 74.0 % 07/08/2025 8:35 PM [facility] Lymphocyte % 13.9(L) 17.0 - 47.0 % 07/08/2025 8:35 PM [facility] Monocyte % 13.9(H) 3.0 - 11.0 % 07/08/2025 8:35 PM [facility] Eosinophil % 1.4 0.0 - 7.0 % 07/08/2025 8:35 PM PLASTICS PRODUCTION MACHINE OPERATOR [facility] Basophil % 0.3 0.0 - 1.6 % 07/08/2025 8:35 PM [facility] Immature Granulocytes % 0.5 0.0 - 1.0 % 07/08/2025 8:35 PM [facility] Neutrophil Absolute 4.01 1.60 - 7.50 x10E9/L 07/08/2025 8:35 PM PLASTICS PRODUCTION MACHINE OPERATOR [facility] Lymphocyte Absolute 0.80(L) 1.00 - 4.40 x10E9/L 07/08/2025 8:35 PM [facility] Monocyte Absolute 0.80 0.15 - 1.00 x10E9/L 07/08/2025 8:35 PM [facility] Eosinophil Absolute 0.08 0.00 - 0.60 x10E9/L 07/08/2025 8:35 PM [facility] Basophil Absolute 0.02 0.00 - 0.13 x10E9/L 07/08/2025 8:35 PM [facility] NRBC 0.5(H) <=0.0 /100 WBC 07/08/2025 8:35 PM [facility] Blood BLOOD SPECIMEN / Unknown 07/08/2025 6:20 PM PLASTICS PRODUCTION MACHINE OPERATOR 07/08/2025 7:45 PM PLASTICS PRODUCTION MACHINE OPERATOR us Mitzi Pendegraft LAB - HEMATOLOGY ORDERABLES Fin al Result [facility] [address] [place] [address] * (ABNORMAL) COMPREHENSIVE METABOLIC PANEL (07/08/2025 6:20 PM PLASTICS PRODUCTION MACHINE OPERATOR) [facility] Glucose 202(H) 70 - 99 mg/dL 07/08/2025 8:15 PM [facility] Sodium 137 136 - 145 mmol/L 07/08/2025 8:15 PM [facility] Potassium 4.0 3.5 - 5.1 mmol/L 07/08/2025 8:15 PM [facility] Chloride 102 98 - 107 mmol/L 07/08/2025 8:15 PM [facility] CO2 26 22 - 29 mmol/L 07/08/2025 8:15 PM [facility] Calcium 8.3(L) 8.4 - 10.4 mg/dL 07/08/2025 8:15 PM [facility] Anion Gap 9 6 - 16 mmol/L 07/08/2025 8:15 PM [facility] BUN 33(H) 7 - 26 mg/dL 07/08/2025 8:15 PM [facility] Creatinine 1.42(H) 0.70 - 1.30 mg/dL 07/08/2025 8:15 PM [facility] Alkaline Phosphatase 113 40 - 150 U/L 07/08/2025 8:15 PM [facility] ALT 10 6 - 57 U/L 07/08/2025 8:15 PM [facility] AST 25 10 - 48 U/L 07/08/2025 8:15 PM [facility] Protein Total 5.9(L) 6.4 - 8.3 gm/dL 07/08/2025 8:15 PM [facility] Albumin 3.2 3.1 - 4.5 gm/dL 07/08/2025 8:15 PM [facility] Bilirubin Total 0.2 0.2 - 1.2 mg/dL 07/08/2025 8:15 PM [facility] eGFR by CKD-EPI 53(L) >=90 mL/min/1.7 3 m2 07/08/2025 8:15 PM [facility] Comment:Estimated Glomerular Filtration Rate (eGFR) calculated using the CKD-EPI Creatinine Equation (2020), per the National Kidney Foundation and [place] Society of Nephrology recommendations. Blood BLOOD SPECIMEN / Unknown Venipuncture / Unknown 07/08/2025 6:20 PM PLASTICS PRODUCTION MACHINE OPERATOR 07/08/2025 7:45 PM PLASTICS PRODUCTION MACHINE OPERATOR us Mitzi Murphyft LAB - CHEMISTRY ORDERABLES Gabriela l Result [facility] [address] [place] [address] * (ABNORMAL) HEMOGLOBIN A1C (11/13/2024 3:44 AM CDT) Hemoglobin A1c 6.9(H) <=5.6 % 11/13/2024 10:01 AM CDT [facility] Estimated Average Glucose 151 mg/dL 11/13/2024 10:01 AM CDT [facility] Comment: HbA1c Interpretation: Normal : < 5.7% Pre-diabetes: 5.7-6.4% Diabetes: Equal to or greater than 6.5% Test results diagnostic of diabetes should be repeated for confirmation. Treatment target values recommended by ADA and other clinical organizations should be used to evaluate metabolic control in patients. Reference: [place] Diabetes Association, Standards of Care in Diabetes -2020 In patients 70 years and older consider HbA1c target range of 7.0-7.5% (Reference: Aurelio Sanchez et al. JAMDA. 2012) The Sebia assay for the measurement of HbA1c is a National Glycohemoglobin Standardization Program (NGSP) certified method. Blood BLOOD SPECIMEN / Unknown Venipuncture / Unknown 11/13/2024 3:44 AM CDT 11/13/2024 3:53 AM CDT us Dex Murphy MD LAB - CHEMISTRY ORDERABL ES Final Result [address] [address], [facility] [phone] * HEPATITIS C AB SCREEN RFLX NAAT QUANT (02/10/2019 5:20 PM CDT) Pathologist [facility] Hepatitis C Antibody Non-react diane Non-reac tive 02/10/2019 6:03 PM CDT [facility] Comment: Hepatitis C Antibody screen indicates no serologic evidence of past or current infection with Hepatitis C Virus. Patients with unexplained liver disease who are immunocompromised or suspected of having acute Hepatitis C infection may benefit from Nucleic Acid Test (RHETT) for Hepatitis C Viral RNA to confirm Hepatitis C status. Blood BLOOD SPECIMEN / Unknown Venipuncture / Unknown 02/10/2019 5:20 PM CDT 02/10/2019 5:20 PM CDT Horacio Felipe MD LAB - CHEMISTRY ORDERABLES Final Result [facility] [address] [phone] from Last 3 Months or Most Recently Relevant to Health Maintenance Insurance MEDICAID - [place] MEDICARE MEDICAID [employer] [place] Advance Directives * Full Code (Latest Code Status on File) Date Activated Date Inactivated Comments 11/12/2024 1:28 PM 11/19/2024 6:09 PM * Full Code Date Activated Date Inactivated Comments 06/13/2024 10:34 PM 06/16/2024 4:18 PM * Full Code Date Activated Date Inactivated Comments 05/08/2024 7:56 AM 05/21/2024 3:39 PM * Full Code Date Activated Date Inactivated Comments 02/10/2019 11:17 PM 02/11/2019 2:30 AM Care Teams Chairman Ceo Relationship Specialty Start Date End Date Joseph Rust [address] [place] [id number] PCP - General 03/28/16
--- OUTSIDE RECORDS SUMMARY | 2025-07-09 16:23 | XMS_ITS | Clinical Summary ---
Author Organization [facility] Address [address] [place] [address] Care Team Providers Care Lead Systems Engineer Name Role Phone Joseph Rust MD Primary Care Provider [phone] Allergies Active Allergy Reactions Criticality Noted Date Comments Metformin Other (see comment) High 11/17/2023 Lactic acidosis Vancomycin Palpitations,Shortne ss of Breath High 01/14/2022 Medications albuterol sulfate HFA 108 (90 Base) MCG/ACT inhaler Inhale 2 puffs into the lungs every 4 (four) hours as needed for Shortness of breath. 4 Active carvedilol (COREG) 25 MG tablet Take 1 tablet (25 mg total) by mouth 2 (two) times daily. 4 Active losartan (COZAAR) 100 MG tablet Take 1 tablet (100 mg total) by mouth daily. 3 Active insulin glargine (LANTUS) 100 UNIT/ML injection (PEN) Inject 18 Units into the skin nightly at bedtime. Active pregabalin (LYRICA) 75 MG capsule Take 1 capsule (75 mg total) by mouth 3 (three) times daily. 4 Active insulin lispro, 1 Unit Dial, (HUMALOG) 100 UNIT/ML injection (PEN) Inject 5 Units into the skin 3 (three) times daily before meals. Active senna-docusate (SENOKOT-S) 8.6-50 MG tablet Take 1 tablet by mouth 2 (two) times a day. 4 Active atorvastatin (LIPITOR) 80 MG tablet Take 1 tablet (80 mg total) by mouth daily. 3 Active amLODIPine (NORVASC) 5 MG tablet Take 1 tablet (5 mg total) by mouth daily. 4 Active ELIQUIS 5 MG tablet Take 1 tablet (5 mg total) by mouth every 12 (twelve) hours. Active budesonide-form oterol (SYMBICORT) 160-4.5 MCG/ACT inhaler Inhale 2 puffs into the lungs 2 (two) times daily. 4 Active glipiZIDE (GLUCOTROL) 5 MG tablet Take 1 tablet (5 mg total) by mouth 2 (two) times daily before meals. Active hydrOXYzine (ATARAX) 10 MG tablet Take 1 tablet (10 mg total) by mouth 2 (two) times a day. 4 Active montelukast (SINGULAIR) 10 MG tablet Take 1 tablet (10 mg total) by mouth daily. 4 Active omeprazole (PRILOSEC) 20 MG capsule Take 1 capsule (20 mg total) by mouth daily. 4 Active oxyCODONE-aceta minophen (PERCOCET) 7.5-325 MG tablet Take 1 tablet by mouth every 6 (six) hours as needed for Pain. 4 Active INCRUSE ELLIPTA 62.5 MCG/ACT AEROSOL POWDER, BREATH ACTIVATED Inhale 1 puff into the lungs daily. 4 Active albuterol (PROVENTIL) (2.5 MG/3ML) 0.083% nebulizer solution Take 3 mLs (2.5 mg total) by nebulization 3 (three) times daily. 4 Active Active Problems Problem Noted Date Diagnosed Date Back pain 03/19/2024 Immunizations Immunization Administration Dates Next Due Arexvy Respiratory Syncytial Virus (RSV, adjuvanted) 0.5 mL, PF 09/14/2023 Influenza (Generic) 06/14/2015 Influenza Adult (Generic) 08/23/2023,,11/16/2021,2017,06/20/2017,06/21/2016 Pneumococcal (Pneumovax 23) 06/14/2015 Family History Medical History Relation Comments Hypertension Mother Relation Status Comments Father Unknown Mother Social History Tobacco Use Types Packs/Day Years Used Date Smoking Tobacco: Former Cigarettes Smokeless Tobacco: Never Tobacco Cessation:Counseling Given: Not Answered Alcohol Use Standard Drinks/Week Comments Not Currently 0 (1 standard drink = 0.6 oz pur e alcohol) [facility] Utilities Answer Date Recorded In the past 12 months has th e electric, gas, oil, or water company threatened to shut off services in your home? No 03/20/2024 Humiliation, Afraid, Rape, and Kick questionnair e Answer Date Recorded Within the last year, have y ou been afraid of your partner or ex-partner? No 03/20/2024 Within the last year, have y ou been humiliated or emotionally abused in other ways by your partner or ex-partner? No Within the last year, have y ou been kicked, hit, slapped, or otherwise physically hurt by your partner or ex-partner? No 03/20/2024 Within the last year, have y ou been raped or forced to have any kind of sexual activity by your partner or ex-partner? No 03/20/2024 Overall Financial Resource Strain (CARDIA) Answe r Date Recorded How hard is it for you to pa y for the very basics like food, housing, medical care, and heating? Not hard at all 03/20/2024 PHQ-2 Answer Date Recorded Patient Health Questionnaire-2 Score 0 12/19/2023 Hunger Vital Sign Answer Date Recorded Within the past 12 months, y ou worried that your food would run out before you got the money to buy more. Never true 03/20/20 Within the past 12 months, t he food you bought just didn't last and you didn't have money to get more. Never true 03/20/2024 PRAPARE - Transportation Answer Date Re corded In the past 12 months, has l ack of transportation kept you from medical appointments or from getting medications? No 02/26 In the past 12 months, has l ack of transportation kept you from meetings, work, or from getting things needed for daily living? No 03/20/2024 Housing Stability Vital Sign Answer Mario e Recorded In the last 12 months, was t here a time when you were not able to pay the mortgage or rent on time? No 03/20/2024 In the past 12 months, how m any times have you moved where you were living? 1 03/20/2024 At any time in the past 12 m [facility], were you homeless or living in a residential (including now)? No 03/20/2024 Sex and Gender Information Value Date Recorded Sex Assigned at Male 03/19/2024 10:48 PM CDT Legal Sex Male 5:03 PM CDT Gender Identity Male 03/19/2024 10:48 PM CDT Sexual Orientation Not on file Last Filed Vital Signs Vital Sign Reading Time Taken Comments Blood Pressure 120/58 05/07/2024 7:00 PM CDT Pulse 80 05/07/2024 7:00 PM CDT Temperature 36.8 C (98.2 F) 05/07/2024 5:14 PM CDT Respiratory Rate 19 05/07/2024 7:00 PM CDT Oxygen Saturation 99% 05/07/2024 7:00 PM CDT Inhaled Oxygen Concentration - - Weight 68 kg (150 lb) 05/07/2024 5:14 PM CDT Height 167.6 cm (5' 6) 05/07/2024 5:14 PM CDT Body Mass Index 24.21 05/07/2024 5:14 PM CDT Plan of Treatment Health Maintenance Due Date Last Done Comments Colorectal Cancer Screening Colonoscopy (10 Years) 1954 Hepatitis C 1972 DTaP, Tdap and Td Vaccines (1 - Tdap) 1973 Zoster Vaccines (1 of 2) 2004 Pneumococcal Vaccine: 50+ Years (2 of 2 - PCV) 06/14/2016 06/14/2015 Annual Medicare Wellness Visit 12/26/2019 PHQ-2 (Physician [place]) 08/28/2024 12/19/2023 COVID-19 Vaccine ( season) 2025 09/15/2023, 08/24/2021, 12/11/2020, Additional history exists Influenza Adult (#1) 2025 08/23/2023, 11/16/2021, 11/16/2021, Additional history exists RSV Immunization or 60+ Years Completed 09/14/2023 Hepatitis A Vaccines Aged Out No long er eligible based on patient's age to complete this topic Meningococcal B Vaccine Aged Out No l onger eligible based on patient's age to complete this topic Meningococcal Vaccine Aged Out No ailyn victorina eligible based on patient's age to complete this topic RSV Immunizations Under 20 Months Aged Out No longer eligible based on patient's age to complete this topic Goals Goal Patient Goal Type Associated Problems Recent Progress Patient-Stated? Author Family - family caregiver with be involved in care transitions and discharge planning Lifestyle No Artie Krause, RN Insurance MED REPLACE [facility] MEDICARE SOLUTIONS Advance Directives Documents on File Type Date Recorded Patient Supervisor Hard Candy Expl anation Advance Directives and Livin g Will 04/08/2024 9:52 AM * Full Code (Latest Code Status on File) Date Activated Date Inactivated Comments 03/28/2024 6:22 AM 03/29/2024 2:30 PM * Full Code Date Activated Date Inactivated Comments 03/19/2024 9:19 PM 03/26/2024 10:19 AM Healthcare Agents on File Name Relationship Healthcare Agent Relationshi p Communication [facility] Care Teams Lead Systems Engineer Relationship Specialty Start Date End Date Joseph Rust MD PCP - General 03/25/14
--- OUTSIDE RECORDS SUMMARY | 2025-07-09 16:23 | XMS_ITS | Encounter Summary ---
Author Organization [employer] Address [address] [place] [address] Care Team Providers Care Computer Programmer Name Role Phone Joseph Rust MD Primary Care Provider [phone] Reason for Visit * Reason Onset Date Comments Post cpr - rib fracture & sm all right hemothorax,on elliquis 07/26/2023 Spoke W/ Desiree at Dr. Favio elliott's exchange/ Dr. Pérez security monitor Encounter Details Date Type Department Care Team (Late st Contact Info) Description 07/26/2023 Telephone [facility] Emergency [address] [place] [address] [place] [address] [place] [address] Post cpr - rib fracture & small right hemothorax,on iqu (Spoke W/ Desiree at Dr. Soria's exchange/ Dr. 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
--- OUTSIDE RECORDS SUMMARY | 2025-07-09 16:23 | XMS_ITS | Encounter Summary ---
Author Organization [facility] Care Team Providers Care Director Prospect Name Role Phone Joseph Rust MD Primary Care Provider [phone] Unknown, Notinfile Primary Care Provider Unavail able Joseph Rust MD Primary Care Provider [phone] Rafael Cordoba MD Primary Care Provider [phone] Vanna Pakr NP Unavailable [phone] Haresh Cordoba DO Primary Care Provider + Joseph Rust MD Primary Care Provider [phone] Russ Ley MD Unavailable [phone] Goyo Medina MD Unavailable [phone] Encounter Details Date Type Department Care Team (Latest Contact Info) Description 05/16/2017 Orders Only [facility] ProviderKhalif MD [address] [place] [id number] Social History Tobacco Use Types Packs/Day Years Used Date Smoking Tobacco: Never Assessed Sex and Gender Information Value Date Recorded Sex Assigned at Not on file Legal Sex Male 3:42 AM SUPPLY CHAIN GENERALIST Gender Identity Not on file Sexual Orientation Not on file documented as of this encounter Functional Status documented as of this encounter Plan of Treatment Not on file documented as of this encounter Procedures Procedure Name Priority Date/Time Associated Diagnosis Comments PROCEDURE - RESULT 06/08/2017 12 :00 AM CDT documented in this encounter Results * PROCEDURE - RESULT (06/08/2017 12:00 AM CDT) Narrative 06/08/2017 12:00 AM CDT Ordered by an unspecified provider. us Historical Provider Final Res ult documented in this encounter Visit Diagnoses Not on filedocumented in this encounter Additional Health Concerns Infection Onset Date Last Indicated Resolved Time COVID: Suspected 01/12/2022 01/12/2022 01/12/2022 2:33 PM CDT COVID: Suspected 08/12/2023 08/12/2023 08/12/2023 2:39 PM SUPPLY CHAIN GENERALIST COVID19 08/12/2023 08/12/2023 08/23/2023 11:3 0 AM SUPPLY CHAIN GENERALIST Coronavirus, contact + droplet 08/12/2023 08/12/2023 08/23/2023 11:30 AM SUPPLY CHAIN GENERALIST COVID: Recovered 08/23/2023 08/23/2023 11/21/2023 3:06 AM CDT COVID: Suspected 09/04/2023 09/04/2023 09/04/2023 7:59 AM SUPPLY CHAIN GENERALIST COVID19 Comment:Pt. Is COVID recovered, last positive 08/12/23 09/04/2023 09/04/2023 09/05/2023 7:58 A M SUPPLY CHAIN GENERALIST COVID: Recovered Comment:Added based on recent COVID [...] documented as of this encounter Care Teams Director Prospect Relationship Specialty Start Date End Date Joseph Rust MD [address] [place] [id number] PCP - General 01/11/18 01/18/18 Unknown, Notinfile PCP - General 01/19/18 10/02/18 Joseph Rust MD [address] [place] [id number] PCP - General Family Medicine 10/03/18 10/10/19 Rafael Cordoba MD [address] [place] [address] [place] [address] PCP - General Family Medicine 10/11/19 01/13/21 Haresh Cordoba DO [address] [place] [address] [place] [address] PCP - General 01/14/21 01/11/22 Joseph Rust MD [address] [place] [address] PCP - General Family Medicine 01/12/22 [place] [address] Referring Physician Otolaryngology 09/03/20 Russ Ley MD [address] [facility] [address] [place] [address] Surgeon Vascular Surgery 11/04/22 Goyo Medina MD [address] [place] [address] Consulting Physician Pulmonary Disease 01/11/24 documented as of this encounter
--- OUTSIDE RECORDS SUMMARY | 2025-07-09 16:23 | XMS_ITS | Clinical Summary ---
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 Name Role Phone Xavier Vanna Gage SHARMA Unavailable [phone] Joseph Rust MD Primary Care Provider [phone] Russ Ley MD Unavailable [phone] Goyo Medina MD Unavailable [phone] Allergies Active Allergy Reactions Criticality Noted Date Comments Metformin Other (See comments) High 11/17/2023 Lactic acidosis Vancomycin Shortness of breath,Palpitations High 01/14/2022 Medications montelukast (SINGULAIR) 10 mg tablet Take 1 tablet (10 mg total) by mouth nightly for 26 doses 26 tablet 4 Active acetaminophen (TYLENOL) 325 mg tablet Take 2 tablets (650 mg total) by mouth every 6 (six) hours as needed for pain 4 Active amLODIPine (NORVASC) 5 mg tabletIndications:E ssential (primary) hypertension Take 1 tablet (5 mg total) by mouth daily 30 tablet 4 Active apixaban (ELIQUIS) 5 mg tablet Take 1 tablet (5 mg total) by mouth 2 (two) times a day 60 tablet 4 Active atorvastatin (Lipitor) 80 mg tabletIndications:M ixed hyperlipidemia,Goldie pheral vascular disease Take 1 tablet (80 mg total) by mouth daily 30 tablet 10/10/202 4 Active budesonide-formoter oL (SYMBICORT) 160-4.5 mcg/actuation inhalerIndications: Mixed simple and mucopurulent chronic bronchitis (HCC) Inhale 2 puffs 2 (two) times a day Rinse mouth with water after use. Do not swallow. 1 each 4 Active carvediloL (COREG) 25 mg tablet Take 1 tablet (25 mg total) by mouth 2 (two) times a day 60 tablet 4 Active clopidogreL (PLAVIX) 75 mg tabletIndications:C erebral Thromboembolism Prevention Take 1 tablet (75 mg total) by mouth daily 30 tablet [address] (Cymbalta) 60 mg capsuleIndications: Anxiety and depression Take 1 capsule (60 mg total) by mouth daily 30 capsule 4 Active lactulose solution 10 gram/15mL Take 15 mL (10 g total) by mouth daily 473 mL 4 Active lidocaine (LIDODERM) 5 % Place 1 patch on the skin daily Remove & discard patch within 12 hours or as directed by MD. 30 patch 4 Active losartan (COZAAR) 100 mg tablet Take 1 tablet (100 mg total) by mouth daily 30 tablet 4 Active magnesium oxide (MAG-OX) 400 mg (241.3 mg elemental magnesium) tabletIndications:h ypomagnesemia Take 1 tablet (400 mg total) by mouth daily 30 tablet 4 Active omeprazole (PriLOSEC) 20 mg capsuleIndications: Gastroesophageal reflux disease without esophagitis Take 1 capsule (20 mg total) by mouth daily 30 capsule 4 Active senna-docusate (PERICOLACE) 8.6-50 mg Take 2 tablets by mouth daily 30 tablet 4 Active umeclidinium (INCRUSE ELLIPTA) 62.5 mcg/actuation blister with deviceIndications:M ixed simple and mucopurulent chronic bronchitis (HCC) Inhale 1 puff (62.5 mcg total) daily 30 each 4 Active dapagliflozin propanediol (FARXIGA) 10 mg tablet Take 1 tablet (10 mg total) by mouth daily 30 tablet 4 Active pregabalin (Lyrica) 150 mg capsuleIndications: Spinal stenosis, lumbar region, with neurogenic claudication Take 1 capsule (150 mg total) by mouth 3 (three) times a day 90 capsule 1 5 Active oxyCODONE (ROXICODONE) 5 mg immediate release tabletIndications:P ain Take 2 tablets (10 mg total) by mouth every 4 (four) hours while awake + 1 tab PRN as needed nightly from 1037-8701. 60 tablet 5 Active Active Problems Problem Noted Date Diagnosed Date Abrasion of skin 12/11/2024 Assessment & Plan (12/11/2024 4:18 PM CDT): I was called to the room by the therapist and the attending nurse because Maksim was exhibiting acute bleeding from his phallus. I entered the room to find the man sitting on the edge of his bed and to therapist standing by us for support. He was holding his phallus in a bloody paper towel cup in his hand. He was placed in a supine position for examination. He was cleaned and the bleeding had stopped. A small abrasion was found on the ventral surface of his distal phallus, approximately 3 mm. It was clean and no further bleeding. I have advised the nurse to observe for 10 additional minutes, place the apixaban on hold (short term), and suggested that he wear for before insight of his briefs today because he may experience some additional spotting. He endorses understanding. Chronic right shoulder pain 05/30/2024 Assessment & Plan (06/06/2024 11:04 AM CDT): S/p steroid inj 06/05. Continue Lidoderm & Oxycodone PRN. Assessment & Plan (06/03/2024 11:05 AM CDT): XR shows mild OA of r shoulder. Have discussed steroid injections with Physitry & agreeable. Will give Monday. Continue pain control with Percocet, take 3x per day on average. Will add Lidoderm also. Assessment & Plan (05/30/2024 2:18 PM CDT): Reports ongoing decreased ROM with pain. He is unable to lift up over head himself but with assistance cane. Crepitus noted. Will obtain XR as has not been obtained recently & see if candidate for injection. Cervical disc disorder with myelopathy Assessment & Plan (06/06/2024 11:06 AM CDT): status post laminectomy and fusion of C3-C5 at [facility]. Continue Tyl PRN, Percocet PRN, Lyrica. PT/OT. Had [facility]Y appt 06/04 but did not make dt transportation issues. New appt 07/22. Assessment & Plan (06/03/2024 11:06 AM CDT): Fu with NSY 06/04. Continue pain control with Perocet & PT/OT. Progressing well with PT/OT. Assessment & Plan (05/27/2024 11:05 AM CDT): Reports pain is controlled with Lyrica 150mg BID & Percocet 10/325mg q4h PRN. Ist taking PRN Percocet 4-5x daily. Monitor for ability to reduce. Continues with PT/OT. He does have spine precautions but no braces needed per documentation. Staple removal 05/31 entered with NSY fu 06/04. Assessment & Plan (05/24/2024 1:34 PM CDT): Continue Oxycodone & Lyrica. Pain currently controlled. Appears to have some lethargy however, monitor for need to decrease. Assessment & Plan (05/23/2024 9:43 AM CDT): He is now status post laminectomy and fusion of C3-C5 at [facility]. Continue Percocet q.4 hours p.r.n. pain. Begin PT and OT. Thyroid mass 04/02/2024 Assessment & Plan (06/06/2024 11:06 AM CDT): Recent biopsy completed. Please follow up with primary care physician post discharge Assessment & Plan (05/23/2024 9:41 AM CDT): Recent biopsy completed. Please follow up with primary care physician post discharge Assessment & Plan (04/17/2024 2:13 PM CDT): At [facility] he was noted to have a mass in the thyroid 8.9 cm, to concurrent lesions 1 being 1.3 cm the other 2.1 cm. There was also a noted reactive lymph node that appeared suspicious for metastatic disease. US-IMPRESSION: Multinodular change. A 2.8 cm heterogeneous isoechoic nodule in the right lobe is larger than on the previous exam. An 8.3 cm heterogeneous hyperechoic nodule in the left lobe is larger than on the previous exam. These 2 nodules do meet criteria for fine-needle aspiration. Is now s/p FNA by IR with negative pathology. Due to significant size of left nodule with impact on airway patient needs to be evaluated by ENT for possible surgical intervention. Patient and initially sent to Dr. Jeyson Mcleod, who reviewed all information and felt that patient would benefit being seen by higher level of care. Referral has been sent to Dr. Kushal Fang at [facility] Assessment & Plan (04/15/2024 2:41 PM CDT): Still working on appointment with Dr. Fang - ENT @ [facility]. No difficulty swallowing or breathing. Will need ENT clearance prior to seeing neurosurgery Assessment & Plan (04/10/2024 1:12 PM CDT): Biopsy/pathology results returned and are benign. Informed patient, will forward to neurosurgery. Plan will be to follow-up with ENT as consideration for removal of thyroid mass may need to be explored due to size and potential airway complication. After seen by ENT we will need to be referred back to Neurosurgery for discussion about back surgery. Assessment & Plan (04/08/2024 9:23 PM CDT): Now s/p thyroid FNA by IR. No post bx complications, pain controlled. Will await pathology results. Recent TSH within normal limits at 1.49 Assessment & Plan (04/04/2024 2:34 PM CDT): He wanted an explanation of the fine needle aspiration thyroid mass. Reviewed the findings of the thyroid ultrasound including knowledge of to enlarging masses and a reactive lymph node. He expressed understanding. I explained how the fine-needle aspiration is performed including risk and benefit. I explained that if a malignancy is found then he would need to see an ear nose and throat surgeon and an oncologist. He expressed understanding. Assessment & Plan (04/03/2024 11:27 AM CDT): Two nodules on the left lobe of the thyroid meet criteria for fine-needle aspiration. We will attempt to schedule with IR. We will require Eliquis to be held at least 3 days prior. Remain off plavix for now Assessment & Plan (04/02/2024 2:00 PM CDT): At [facility] he was noted to have a mass in the thyroid 8.9 cm, to concurrent lesions 1 being 1.3 cm the other 2.1 cm. There was also a noted reactive lymph node that appeared suspicious for metastatic disease. I have ordered a thyroid ultrasound. After this is reviewed by the radiologist I suggest a needle biopsy of the mass and I have explained this to Maksim. The Plavix is on hold in anticipation and once we have a firm date 4 the needle biopsy the apixaban we will need to be held for 2 days. Cervical stenosis of spine 04/02/2024 Assessment & Plan (04/04/2024 2:33 PM CDT): This is chronic, currently stable. He reports his pain to be poorly controlled on current regimen of Percocet 7.5 every 6 hours p.r.n.. Per his request I have changed this to q.4 hours around the clock. We will continue Lyrica 75 mg p.o. t.i.d., we will continue PT and OT. Assessment & Plan (04/02/2024 2:02 PM CDT): He was seen by Neurosurgery is in [place] but decompression was delayed until further information is known on the thyroid mass. I have reminded broth to wear the C-collar when he is out of bed. I have also notified the head of physical therapy. In the interim he will continue to receive physical and occupational therapy. Oxycodone with Tylenol as ordered for pain. We will continue Lyrica 75 mg p.o. t.i.d.. Please note the Cardiology cleared him for anesthesia during his inpatient stay. (HFpEF) heart failure with preserved ejection fr action 03/06/2024 Assessment & Plan (05/23/2024 9:40 AM CDT): Chronic and stable. Monitor for evidence of fluid overload or respiratory distress. Continue carvedilol GERD (gastroesophageal reflux disease) Assessment & Plan (04/17/2024 2:13 PM CDT): Stable, continue omeprazole Mood disorder 03/06/2024 Constipation 09/04/2023 Assessment & Plan (12/05/2024 11:35 AM CDT): Stable with routine Lactulose & PRN cathrtics. Assessment & Plan (11/25/2024 12:17 PM CDT): Will have nursing to give PRN senna today. Continue lactulose. Assessment & Plan (06/06/2024 11:03 AM CDT): Continue Lactulose & Senna. Assessment & Plan (05/27/2024 10:57 AM CDT): He is unsure of last BM. Has been taking Lactulose & Senna. Clarifying with SIDE LASTER TACK last BM. Monitor. Assessment & Plan (05/24/2024 1:26 PM CDT): Started Lactulose daily. Continue Miralax PRN. Monitor. Assessment & Plan (12/15/2023 11:01 AM CDT): Evaluation in ED unrevealing except stool burden noted on CT Abd. Given Mag citrate with BM occurring overnight. Will start daily miralax and pericolace bid. Assessment & Plan (09/27/2023 12:16 PM DEPARTMENT SPECIALIST): Now resolved - dc senna and miralax. Can restart at home if becomes constipated Anxiety and depression 09/04/2023 Assessment & Plan (04/17/2024 2:14 PM CDT): Mood on at baseline, continue duloxetine, b.i.d. hydroxyzine Assessment & Plan (12/13/2023 11:44 AM CDT): Mood has been stable, continue duloxetine, BuSpar, Seroquel Assessment & Plan (12/11/2023 1:22 PM CDT): Mood stable, continue duloxetine daily, buspar 10mg TID. Patient with underlying bipolar disorder, continue Seroquel 25 mg q.a.m., 50 mg q.h.s. Assessment & Plan (09/27/2023 11:55 AM DEPARTMENT SPECIALIST): Mood stable, continue duloxetine Mild protein-calorie malnutrition 08/15/2023 Assessment & Plan (05/23/2024 9:40 AM CDT): Dietary will follow Bilateral carotid artery stenosis 06/01/2023 Assessment & Plan (05/23/2024 9:39 AM CDT): Chronic and stable. Continue Plavix and atorvastatin Mixed hyperlipidemia 06/01/2023 Assessment & Plan (05/23/2024 9:38 AM CDT): Chronic, stable. Continue atorvastatin 80 mg daily. Dietary will follow Assessment & Plan (04/17/2024 2:03 PM CDT): Stable, continue atorvastatin Assessment & Plan (04/02/2024 1:52 PM CDT): Continue atorvastatin Assessment & Plan (11/29/2023 4:11 PM CDT): Chronic, stable; cont rx lipitor Recurrent cerebrovascular accidents (CVAs) 03/15 Assessment & Plan (12/13/2023 11:47 AM CDT): History of recurrent CVAs, no current/ new neurologic changes. Continue post stroke prophylaxis with Eliquis, statin, blood pressure control Assessment & Plan (09/26/2023 10:55 AM DEPARTMENT SPECIALIST): Pt with ongoing weakness that limits mobility. See above for standard power chair. Will resume statin, continue eliquis, BP control for post stroke prophylaxis Assessment & Plan (03/15/2023 11:40 PM CDT): Patient with history of previous CVA presents with left-sided weakness. CT shows findings suspicious for right-sided lacunar infarct. Patient has been admitted. Neurology has been consulted. Will obtain 2D echo with Doppler. Will obtain carotid ultrasound and brain MRI. History of CVA (cerebrovascular accident) 2022 Assessment & Plan (03/15/2023 11:44 PM CDT): Continue aspirin and statins. Type 2 diabetes mellitus, wi th long-term current use of insulin 11/03/2022 Assessment & Plan (12/13/2024 9:52 AM CDT): Continue to monitor glucose point of care, continue insulin glargine 10 units HS daily, insulin lispro 4 units t.i.d. a.c., follow up with primary provider. Assessment & Plan (12/05/2024 11:36 AM CDT): BS well controlled 107-167, continue Lantus + Lispro. Assessment & Plan (11/22/2024 2:52 PM CDT): This is chronic and currently stable. Continue insulin glargine 10 units daily HS and insulin lispro 4 units subcutaneous t.i.d. a.c.. Assessment & Plan (06/06/2024 11:03 AM CDT): A1c 6.9% April. On last admission he was on Glipizide BID, Lantus 18u qhs, Lispro 5u TIDAC. BS have been low on admission. Reports he is eating well. Glipizide dc. Unable to take Metformin d/t ho lactic acidosis. Will start Farxiga & monitor. Continue to monitor. Assessment & Plan (06/03/2024 11:10 AM CDT): A1c 6.9% April. On last admission he was on Glipizide BID, Lantus 18u qhs, Lispro 5u TIDAC. BS have been low on admission. Reports he is eating well. Glipizide dc, Continues on Metformin 1000mg BID, Lantus has been held & Lispro SSI started where he is receiving 0-2u TIDAC. Continue to monitor. Likely will dc SSI at dc. Assessment & Plan (05/30/2024 2:16 PM CDT): BS 78-200. Have dc Glipizide d/t hypoglycemia. Will continue Metformin. Reduce Lantus to 10u & change Lispro to SSI. Assessment & Plan (05/27/2024 10:54 AM CDT): BS 70 Monday am. Will hold Glipizide & monitor. May need to reduce Lantus if continues to be low. Monitor. Assessment & Plan (05/24/2024 1:28 PM CDT): A1c 6.9%. Controlled. Continue Metformin, Lantus + Lispro, Glipizde. MOnitor BS. Assessment & Plan (05/23/2024 9:41 AM CDT): This is chronic and currently stable. Continue point of care glucose, follow up labs are ordered. Continue atorvastatin, glipizide, insulin glargine and insulin lispro, and metformin. Assessment & Plan (04/17/2024 2:04 PM CDT): A1c 7.4, BS controlled with glipizide, lantus, and mealtime insulin Assessment & Plan (04/15/2024 2:44 PM CDT): A1c 7.4, BS 83-208. Continue glipizide bid, lantus 18 units qhs, mealtime insulin 5 units TIDAC Assessment & Plan (04/08/2024 9:24 PM CDT): A1c 7.4, Accu-Cheks range from 108-162. Continue Lantus 18 units q.h.s., lispro 5 units t.i.d. a.c., glipizide 5 mg b.i.d. monitor for hypoglycemia Assessment & Plan (04/03/2024 11:28 AM CDT): A1c 7.4, Accu-Cheks ranging from 127 to 506. No hypoglycemia documented. Continue glipizide 5 mg b.i.d., Lantus 18 units q.h.s., lispro 5 units t.i.d. a.c. Assessment & Plan (04/02/2024 1:55 PM CDT): This is currently stable. Follow up labs were ordered. Continue glipizide 5 mg a.c. b.i.d., insulin glargine and insulin lispro and monitor point of care blood glucose. Neuropathy 03/04/2021 Assessment & Plan (05/23/2024 9:42 AM CDT): Continue Lyrica Arteriosclerosis of coronary artery 09/15/2020 Assessment & Plan (04/02/2024 1:54 PM CDT): Stable, continue Coreg and atorvastatin Atrial fibrillation 09/15/2020 Assessment & Plan (12/13/2024 9:51 AM CDT): This is a chronic stable condition. Continue apixaban 5 mg p.o. b.i.d.. Assessment & Plan (12/11/2024 4:14 PM CDT): This is a chronic problem that remained stable. I am placing the apixaban on hold given his presentation of acute bleeding. Assessment & Plan (05/23/2024 9:39 AM CDT): Chronic, stable. Monitor for RVR. Continue apixaban 5 mg p.o. b.i.d. Assessment & Plan (04/17/2024 2:02 PM CDT): HR controlled, continue coreg. Continue Eliquis for AC Assessment & Plan (04/02/2024 1:54 PM CDT): This is currently stable. Monitor for RVR. Continue apixaban 5 mg p.o. b.i.d.. Please note that this will need to be held for 2 days prior thyroid biopsy once scheduled Assessment & Plan (12/13/2023 11:40 AM CDT): Heart rate controlled, continue Coreg. Continue anticoagulation with Eliquis Assessment & Plan (11/29/2023 4:12 PM CDT): Chronic, stable, cont rx apixaban Assessment & Plan (11/26/2023 7:29 AM CDT): Cont apixaban Assessment & Plan (09/27/2023 11:53 AM DEPARTMENT SPECIALIST): Rate controlled, continue metoprolol, Eliquis. Assessment & Plan (03/15/2023 11:43 PM CDT): Rate is currently controlled. Patient on anticoagulation. Continue aspirin and statins Assessment & Plan (01/13/2022 12:59 PM CDT): Control rate. Bilateral iliac artery stenosis 09/15/2020 Mixed simple and mucopurulent chronic bronchitis 09/15/2020 Assessment & Plan (04/17/2024 2:18 PM CDT): Pulmonary status stable, continue current regimen Assessment & Plan (04/15/2024 2:46 PM CDT): Pulmonary status stable, no bronchospasm. Continue scheduled albuterol neb, daily Incruse Ellipta. Assessment & Plan (04/02/2024 1:58 PM CDT): Chronic and stable. Consult respiratory therapy. Continue albuterol, Symbicort. Assessment & Plan (12/13/2023 11:48 AM CDT): Pulmonary status stable. Continue p.r.n. albuterol, Tessalon, Advair b.I.d., DuoNeb p.r.n.. Patient will undergo home O2 evaluation with 6 minute walk test. Patient understands that he may require home O2 set up in his willing to have set up at home. Will complete prednisone taper prior to discharge. Assessment & Plan (12/05/2023 12:46 PM CDT): Pulmonary status at baseline, no bronchospasm. Continue p.r.n. albuterol, scheduled Tessalon, Advair b.i.d.. Completing prednisone taper for acute exacerbation. Patient is asking to have an oxygen evaluation prior to discharge as he feels that at home he requires supplemental O2 with activity Assessment & Plan (09/27/2023 12:18 PM DEPARTMENT SPECIALIST): Pulmonary status has significantly improved. Continue scheduled DuoNeb, Advair b.i.d.. Follow-up with pulmonology as scheduled Assessment & Plan (09/26/2023 10:58 AM DEPARTMENT SPECIALIST): Pulmonary status improved with scheduled neb treatments. Completed prednisone taper. Underlying severe COPD also limits pt mobility 2/2 poor endurance. Continue tessalon, scheduled duoneb, advair BID, Incruse Assessment & Plan (11/28/2022 2:48 PM CDT): COPD chronic and controlled. Continue albuterol and Advair. Primary osteoarthritis of right hip 09/15/2020 Tremor 07/09/2020 Assessment & Plan (07/09/2020 3:41 PM DEPARTMENT SPECIALIST): Check lab Anemia in other chronic diseases classified else where 04/16/2020 Assessment & Plan (12/10/2024 12:20 PM CDT): H&H trended down on labs. Is on Eliquis. Repeat ordered for 12/13. Assessment & Plan (06/03/2024 11:07 AM CDT): Mild & stable. Continue to monitor. Assessment & Plan (05/27/2024 10:57 AM CDT): Mild. Continue to monitor. Remains on Eliquis. Assessment & Plan (04/16/2020 1:50 PM CDT): lab Essential (primary) hypertension 10/21/2019 Assessment & Plan (12/13/2024 9:52 AM CDT): This is chronic and stable. Continue amlodipine 5 mg daily, carvedilol 25 mg p.o. b.i.d., losartan 100 mg daily. Assessment & Plan (11/24/2024 8:11 PM CDT): BP stable with Coreg, Norvasc, & Losartan. Routine monitoring. Assessment & Plan (11/22/2024 2:51 PM CDT): This is chronic but currently stable. Continue amlodipine 5 mg daily, carvedilol, losartan 100 mg daily. Assessment & Plan (05/23/2024 9:39 AM CDT): This is currently stable. Continue carvedilol, losartan Assessment & Plan (04/17/2024 2:02 PM CDT): BP stable, continue losartan, coreg. Assessment & Plan (04/15/2024 2:38 PM CDT): BP well controlled. Continue losartan, coreg and hydralazine Assessment & Plan (04/08/2024 9:17 PM CDT): BP stable, continue hydralazine 25 mg b.i.d, coreg 25mg BID, losartan 100mg daily Assessment & Plan (04/04/2024 2:32 PM CDT): This is currently stable. Continue to monitor blood pressure for trend. Continue amlodipine, Coreg, losartan. Assessment & Plan (04/03/2024 11:29 AM CDT): Blood pressure well controlled, continue carvedilol 25 mg b.i.d., losartan 100 mg daily Assessment & Plan (04/02/2024 1:53 PM CDT): Monitor vital signs. Continue Coreg 25 mg p.o. b.i.d., losartan 100 mg daily. Assessment & Plan (12/13/2023 11:40 AM CDT): Blood pressure stable, continue losartan, carvedilol, hydralazine Assessment & Plan (12/11/2023 1:21 PM CDT): BP better controlled, continue carvedilol 25 mg b.i.d., losartan 100 mg daily, hydralazine 25 mg b.i.d. Assessment & Plan (12/05/2023 12:54 PM CDT): Blood pressure suboptimally controlled, will add hydralazine 25 mg b.i.d., continue Coreg 25 mg b.i.d., losartan 100 mg daily Assessment & Plan (11/29/2023 4:12 PM CDT): Chronic, stable; cont rx coreg, losartan Assessment & Plan (11/26/2023 7:29 AM CDT): Stable, cont coreg, losartan Assessment & Plan (09/27/2023 11:51 AM DEPARTMENT SPECIALIST): Blood pressure stable, continue losartan, Norvasc, Coreg Assessment & Plan (09/22/2023 6:14 PM DEPARTMENT SPECIALIST): Blood pressure more elevated, we will restart Norvasc 5 mg daily, continue losartan 100 mg daily, Coreg 12.5 mg b.i.d. Assessment & Plan (09/20/2023 2:30 PM DEPARTMENT SPECIALIST): Blood pressure remains well controlled, continue losartan, Coreg Assessment & Plan (09/18/2023 11:22 AM DEPARTMENT SPECIALIST): BP stable, continue coreg, losartan. Norvasc to remain on hold Assessment & Plan (09/15/2023 2:25 PM DEPARTMENT SPECIALIST): Blood pressure remains labile but generally controlled. Continue carvedilol 12.5 mg b.i.d., losartan 100 mg daily Assessment & Plan (09/12/2023 11:51 AM DEPARTMENT SPECIALIST): BP labile, we will hold Norvasc, continue carvedilol 12.5 mg b.i.d., losartan 100 mg daily. Assessment & Plan (11/28/2022 2:48 PM CDT): Hypertension chronic and controlled. Continue current medical management. Assessment & Plan (11/03/2022 9:20 AM DEPARTMENT SPECIALIST): Hypertension chronic and controlled. Continue current medical therapy. Assessment & Plan (01/13/2022 1:01 PM CDT): Monitor and control BP Assessment & Plan (07/09/2020 3:43 PM DEPARTMENT SPECIALIST): Patient is well controlled. Continue current treatment. Assessment & Plan (04/16/2020 1:49 PM CDT): Patient is well controlled. Continue current treatment. Scoliosis of lumbar spine 02/06/2019 History of total right hip arthroplasty 02/06/20 Spinal stenosis, lumbar jessica on, with neurogenic claudication 09/19/2018 Assessment & Plan (12/13/2024 9:53 AM CDT): Continue the scripting of Lyrica 150 mg p.o. t.i.d., oxycodone 2 tablets of 5 mg every 4 hours prn Assessment & Plan (12/10/2024 12:19 PM CDT): Continue Oxycodone q4h jesus alberto during waking hours, prn at night. Has not been requiring PRN dose at night. Recommend at ms to decrease to q6h PRN. Patient was previously taking it this way at home. Have reviewed & he is agreeable at ms. Continue Lyrica also. Assessment & Plan (12/05/2024 11:35 AM CDT): NSY fu 12/03. He is to continue PT with no twisting, bending, or lifting >15lbs. Wound care instructions included. Have forwarded to tx &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 Implanted:Qty: 1 on 11/22/2022 by Russ Ley MD at [facility] Peripheral Vascular 03/27/2024 [id number] / / [id number] Bard Peripheral Vascular Lifestream 9mm 38mm 80cm Balloon Expandable Low Profile Cover [id number] - [id number] Implanted:Qty: 1 on 11/22/2022 by Russ Ley MD at [facility] Peripheral Vascular 03/27/2025 [id number] / / [id number] Bard Peripheral Vascular E-Luminexx Safe Performaxx 7mm 6fr 40mm 80cm Delivery System [id number] - [id number] Implanted:Qty: 1 on 11/22/2022 by Russ Ley MD at [facility] Peripheral Vascular 11/05/2024 [id number] / / [id number] Procedures Procedure Name Priority Date/Time Associated Diagnosis Comments EGFR Routine 12/09/2024 4:30 AM CDT PSA SCREEN Routine 04/03/2024 4:30 AM CDT HEMOGLOBIN A1C STAT 02/26/2024 12:[address] ABDOMEN PELVIS WO CONTRAST ED 12/14/2023 12:50 PM CDT LIPID PANEL Routine 08/14/2023 3:24 AM DEPARTMENT SPECIALIST HEPATITIS PANEL, ACUTE Routine 08/11/2023 8:10 AM DEPARTMENT SPECIALIST OCCULT BLOOD, FECAL (FIT) Routine 02/11/2019 4:25 PM CDT from Last 3 Months or Most Recently Relevant to Health Maintenance Results * eGFR (12/09/2024 4:30 AM CDT) eGFR >90 >=60 mL/min/1. 73 m2 JULIAN FELDMAN Comment: Interpretive Data Reference Interval Normal >/= 90 mL/min/1.73m2 Mildly decreased* 60 - 89 mL/min/1.73m2 Mildly to moderately decreased 45 - 59 mL/min/1.73m2 Moderately to severely decreased 30 - 44 mL/min/1.73m2 Severely decreased 15 - 29 mL/min/1.73m2 Kidney Failure < 15 mL/min/1.73m2 *Relative to young adult level Estimated glomerular filtration rate is determined by the 2020 CKD-EPI equation recommended by the National Kidney Foundation (A Unifying Approach to GFR Estimation: Recommendations of the NKF-ASK Task Force on Reassessing the Inclusion of Race in Diagnosing Kidney Disease, JASN 2020). The CKD-EPI equation should not be used for patients with unstable renal function and has not been validated in children and those over 70. Current interpretive data was last reviewed 2021. [facility], [address] [place] [address], [place]., [address] Blood 12/09/2024 4:30 AM CDT 12/09/2024 6:25 AM CDT us Lynda Hong CERTIFIED HOME HEALTH AIDE LAB BLOOD ORDERABLES Final Result JULIAN [address] Department [place] [address] * PSA screen (04/03/2024 4:30 AM CDT) PSA-Total 1.99 <=5.40 ng/mL JULIAN Comment: Interpretive Data AGE SEX REFERENCE INTERVAL 0 minutes-150 years Female None 0 minutes-49 years Male None 50-59 years Male 0-3.90 60-69 years Male 0-5.40 70-79 years Male 0-6.20 80-150 years Male 0-6.20 The Nate PSA Total assay procedure was used. Results from different manufacturers or methods may not be comparable. Serial testing should be performed using the same method. Current interpretive data last revised 21. [facility], [address] [place] [address], [place]., [address] Blood 04/03/2024 4:30 AM CDT 04/03/2024 4:51 AM CDT us Notinfile Unknown LAB BLOOD ORDERABLES Final Res ult Performing Organization Address [facility] Co de Phone Number JULIAN [address] [address] * (ABNORMAL) Hemoglobin A1c (02/26/2024 12:41 PM CDT) Hgb A1C 7.4(H) 4.0 - 5.6 % Estimated Average Glucose 166 mg/dL SUSANESTUARDO Comment: The ADA recommends reporting an estimated Average Glucose (eAG) with all Hemoglobin A1c results using the equation derived from a study of 507 normal and diabetic adults. Minority populations were underrepresented and children were not included. (Diabetes Care 31:3978-1532, 2008). The eAG is not equivalent to a fasting glucose. Blood 02/26/2024 12:4 1 PM CDT 02/26/2024 12:44 PM CDT us Selma Robbins MD LAB BLOOD ORDERABLES Final Resul t Performing Organization Address [facility] Co de Phone Number SUS[address] [address] * CT Abdomen Pelvis WO Contrast (12/14/2023 12:50 PM CDT) Anatomical Region Laterality Modality Body N/A Computed Tomogra phy 12/14/2023 12:5 7 PM CDT Narrative 12/14/2023 1:21 PM CDT EXAM DESCRIPTION: CT ABDOMEN PELVIS WO CONTRAST REASON FOR STUDY: Bowel obstruction high-grade suspected, constipation vs. bowel obstruction from [facility], per report pt was on toilet straining to have bowel movement when he became dizzy and had SOB. Staff at [facility] took bp and had 80s/60s. Pt arrives to ED, awake, alert/oriented x 3. Respirations even/unlabored, pt states all symptoms resolved with exception of constipation that is what caused this to begin with. Pt states he has been constipated x 3 days. Hx: DM2, HTN, GERD, Lumbar spinal stenosis Surg Hx: Pancreatic cyst removal, Rt Hip Arthroplasty TECHNIQUE: CT scan of the abdomen and pelvis performed without intravenous and without oral contrast using helical scanning technique. Reconstructed coronal and sagittal MPR images reviewed. All images stored on PACS. Automated exposure control was used as a dose optimization technique for this examination. COMPARISON: CT chest abdomen pelvis 09/04/2023 FINDINGS: The sensitivity for detection of visceral lesions is diminished without the use of intravenous contrast. LOWER CHEST: There is bibasilar subsegmental atelectasis. There are multivessel coronary artery calcifications. LIVER: Normal size. No identified cystic or solid masses. GALLBLADDER: Not visualized. Presumed surgically absent. BILE DUCTS: Common bile duct is difficult to visualize with the lack of IV contrast. No obvious intrahepatic biliary ductal dilatation. SPLEEN: Normal size. No focal lesions. PANCREAS: No identified cystic or solid masses. No significant calcifications. No adjacent inflammation or peripancreatic fluid collections. Pancreatic duct not dilated. ADRENALS: Normal. KIDNEYS/URINARY TRACT: Unchanged appearance of the kidneys with mild bilateral perinephric stranding and atrophy of the right kidney. There is a 2.7 cm simple cyst in the left kidney. No hydronephrosis or hydroureter. There are renal vascular calcifications. Urinary bladder is unremarkable. GI: No dilated or thick-walled loops of bowel appreciated. There is an umbilical hernia containing several loops of small bowel which do not appear obstructed. The appendix is normal. There is a large amount of stool throughout the colon. PERITONEUM: No ascites or free air. RETROPERITONEUM: No mass or adenopathy. REPRODUCTIVE: Prostate is enlarged. VASCULATURE: There is a large amount of atherosclerotic plaque in the aorta, iliac vessels, and mesenteric vessels. Th there are stents in the common iliac vessels, which are poorly evaluated without the use of IV contrast. An external iliac stent on the right is also present. MUSCULOSKELETAL: There is a right hip arthroplasty causing streak artifact through the pelvis. There is no suspicious osseous lesion. There are degenerative changes throughout the spine. OTHER: No other abnormality. IMPRESSION: No acute finding in the abdomen or pelvis. Large amount of stool throughout the colon. Umbilical hernia containing several loops of small bowel which do not appear obstructed. Extensive atherosclerotic disease with stents in the common iliac arteries and right external iliac artery. These are poorly evaluated without the use of IV contrast. Other chronic findings as above. THIS IS AN ELECTRONICALLY VERIFIED FINAL REPORT 12/14/2023 1:21 PM - Electronically signed by Andrews Grossman M.D. AM T: Report ID: [id number] Reading Location: [id number] Procedure Note Andrews Grossman MD - 12/14/2023 EXAM DESCRIPTION: CT ABDOMEN PELVIS WO CONTRAST REASON FOR STUDY: Bowel obstruction high-grade suspected, constipationvs. bowel obstruction from [facility], per report pt was on toilet straining to have bowel movementwhen he became dizzy and had SOB. Staff at [facility] took bp and had 80s/60s.Pt arrives to ED, awake, alert/oriented x 3. Respirations even/unlabored, pt states all symptoms resolved with exception of constipation that is what caused this to begin with. Pt states he has been constipated x 3 days. Hx: DM2, HTN, GERD, Lumbar spinal stenosis Surg Hx: Pancreatic cyst removal, Rt Hip Arthroplasty TECHNIQUE: CT scan of the abdomen and pelvis performed without intravenousand without oral contrast using helical scanning technique. Reconstructed coronal and sagittal MPR images reviewed. All images stored on PACS.Automated exposure control was used as a dose optimization technique for this examination. COMPARISON: CT chest abdomen pelvis 09/04/2023 FINDINGS: The sensitivity for detection of visceral lesions is diminished without the use of intravenous contrast. LOWER CHEST: There is bibasilar subsegmental atelectasis. There are multivessel coronary artery calcifications. LIVER: Normal size. No identified cystic or solid masses. GALLBLADDER: Not visualized. Presumed surgically absent. BILE DUCTS: Common bile duct is difficult to visualize with the lack ofIV contrast. No obvious intrahepatic biliary ductal dilatation. SPLEEN: Normal size. No focal lesions. PANCREAS: No identified cystic or solid masses. No significant calcifications. No adjacent inflammation or peripancreatic fluidcollections. Pancreatic duct not dilated. ADRENALS: Normal. KIDNEYS/URINARY TRACT: Unchanged appearance of the kidneys with mild bilateral perinephric stranding and atrophy of the right kidney. There yariel 2.7 cm simple cyst in the left kidney. No hydronephrosis or hydroureter. There are renal vascular calcifications. Urinary bladder isunremarkable. GI: No dilated or thick-walled loops of bowel appreciated. There is an umbilical hernia containing several loops of small bowel which do notappear obstructed. The appendix is normal. There is a large amount of stool throughout the colon. PERITONEUM: No ascites or free air. RETROPERITONEUM: No mass or adenopathy. REPRODUCTIVE: Prostate is enlarged. VASCULATURE: There is a large amount of atherosclerotic plaque in theaorta, iliac vessels, and mesenteric vessels. Th there are stents in the common iliac vessels, which are poorly evaluated without the use of IV contrast.An external iliac stent on the right is also present. MUSCULOSKELETAL: There is a right hip arthroplasty causing streakartifact through the pelvis. There is no suspicious osseous lesion. There are degenerative changes throughout the spine. OTHER: No other abnormality. IMPRESSION: No acute finding in the abdomen or pelvis. Large amount of stool throughout the colon. Umbilical hernia containing several loops of small bowel which do notappear obstructed. Extensive atherosclerotic disease with stents in the common iliac arteriesand right external iliac artery. These are poorly evaluated without the use ofIV contrast. Other chronic findings as above. THIS IS AN ELECTRONICALLY VERIFIED FINAL REPORT 12/14/2023 1:21 PM - Electronically signed by Andrews Grossman M.D. T: Report ID: [id number] Reading Location: [place] [address] Ger Anders MD [facility] CT PROCEDURES F inal Result * (ABNORMAL) Lipid panel (08/14/2023 3:24 AM DEPARTMENT SPECIALIST) Cholesterol 82 30 - 199 mg/dL JULIAN FELDMAN Comment: Interpretive Data Ages < or = 19 years Acceptable: <170 mg/dL Borderline high: 170-199 mg/dL High: >or= 200 mg/dL Ages > or = 20 years Desirable: <200 mg/dL Borderline high: 200-239 mg/dL High: >or= 240 mg/dL Literature References: 1. Expert Panel on Integrated Guidelines for Cardiovascular Health and Risk Reduction in Children and Adolescents. Pediatrics 2011;128:S213 2. NCEP Expert Panel. Circulation 2004;110:227 Current Interpretive Data was last revised on 2018. Triglycerides 44 <=149 mg/dL JULIAN Comment: Interpretive Data Ages < or = 9 years Acceptable: <75 mg/dL Borderline high: 75-99 mg/dL High: >or= 100 mg/dL Ages 10 to 20 years Acceptable: <90 mg/dL Borderline high: 90-129 mg/dL High: >or= 130 mg/dL Ages > or = 20 years Desirable: <150 mg/dL Borderline high: 150-199 mg/dL High: 200-499 mg/dL Very high: >or= 499 mg/dL Literature References: 1. Expert Panel on Integrated Guidelines for Cardiovascular Health and Risk Reduction in Children and Adolescents. Pediatrics 2011;128:S213 2. NCEP Expert Panel. Circulation 2004;110:227 Current Interpretive Data was last revised on 2018. HDL 35(L) >=40 mg/dL JULIAN Comment: Interpretive Data Ages < or = 19 years Acceptable: >45 mg/dL Borderline low: 40-45 mg/dL Low: <40 mg/dL Ages > or = 20 years Desirable: >or= 60 mg/dL Low: <40 mg/dL Literature References: 1. Expert Panel on Integrated Guidelines for Cardiovascular Health and Risk Reduction in Children and Adolescents. Pediatrics 2011;128:S213 2. NCEP Expert Panel. Circulation 2003;110:227 Current Interpretive Data was last revised on 2018. LDL, calculated 38 <=129 mg/dL JULIAN Comment: Interpretive Data Ages < or = 19 years Acceptable: <110 mg/dL Borderline high: 110-129 mg/dL High: >or= 130 mg/dL Ages > or = 20 years Optimal: <100 mg/dL Near optimal: 100-129 mg/dL Borderline high: 130-159 mg/dL High: >160 mg/dL Literature References: 1. Expert Panel on Integrated Guidelines for Cardiovascular Health and Risk Reduction in Children and Adolescents. Pediatrics 2011;128:S213 2. NCEP Expert Panel. Circulation 2004;110:227 Current Interpretive Data was last revised on 2018. Non-HDL Cholesterol 47 mg/dL JULIAN Comment: Interpretive Data Ages < or = 19 years Acceptable: <120 mg/dL Borderline high: 120-144 mg/dL High: >145 mg/dL Ages > or = 20 years When triglycerides are >200 mg/dL, Non-HDL cholesterol is a secondary target of therapy with treatment goals that are 30 mg/dL greater than the LDL cholesterol target. Literature References: 1. Expert Panel on Integrated Guidelines for Cardiovascular Health and Risk Reduction in Children and Adolescents. Pediatrics 2011;128:S213 2. NCEP Expert Panel. Circulation 2004;110:227 Current Interpretive Data was last revised on 2018. Chol/HDL ratio 2 [facility] Blood 08/14/2023 3:24 AM DEPARTMENT SPECIALIST 08/14/2023 3:57 AM DEPARTMENT SPECIALIST Carolyn Lugo MD LAB BLOOD ORDERABLE S Final Result [facility] [address] [facility] Department [place] [address] * Hepatitis panel, acute Blood (08/11/2023 8:10 AM DEPARTMENT SPECIALIST) Hep A IgM Nonreactive Nonreactive [facility] Comment: Interpretive Data: If Hep A IgM Ab is reported as Equivocal, a new sample should be drawn in two weeks for testing. Current interpretive data was last revised on 19. Hep B core IgM Nonreactive Nonreactive [facility] Comment: Interpretive Data If HepB Core IgM Ab is reported as Equivocal, a new sample should be drawn in two weeks for testing. Current interpretive data was last revised on 19. Hep C Ab Nonreactive Nonreactive [facility] Comment: Antibodies to HCV not detected. Does NOT exclude the possibility of recent exposure to HCV. Current interpretive data was last revised on 22 Interpretive Data Nonreactive: Antibodies to HCV not detected. Does NOT exclude the possibility of recent exposure to HCV. Equivocal: Equivocal for HCV antibodies. Supplemental molecular testing will be automatically performed to determine infection status in accordance with current CDC screening recommendations. Reactive: Positive for HCV antibodies. This may represent current or past HCV infection. Supplemental molecular testing will be automatically performed to determine current infection status in accordance with current CDC screening recommendations. Interpretive data was last revised on 2019. HepBsAg Nonreactive Nonreactive JULIAN Blood 08/11/2023 8:10 AM DEPARTMENT SPECIALIST 08/11/2023 8:54 AM DEPARTMENT SPECIALIST Bhavki Monet NP LAB MICROBIOLOGY - GENER AL ORDERABLES Final Result JULIAN [address] [facility] Department [place] [address] * Occult blood, fecal non neoplasm screening (02/11/2019 4:25 PM CDT) Stool Occult Blood NEGATIVE NEGATIVE [facility] 02/11/2019 4:25 PM CDT 02/11/2019 4:46 PM CDT Narrative [facility] - 02/11/2019 5:02 PM CDT Collected By aa Resulting Agency Comment IN Heike Umanzor MD LAB BODY FLUIDS AND STOOLS ORDER NIKKO Final Result Performing Organization Address City/[facility]/ZIP Co de Phone Number [facility] [address] [place] [address], [facility] [phone] from Last 3 Months or Most Recently Relevant to Health Maintenance Insurance [facility] [place] [address] [facility] MEDICARE ADVANTAGE [place] [facility] MEDICARE ADVANTAGE Advance Directives For more information, please contact: [phone] Documents on File Type Date Recorded 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 ADVANCE DIRECTIVE 01/14/2022 2:48 PM Power of Industrial Engineer-Medical * Full Code (Latest Code Status on File) Date Activated Date Inactivated Comments 02/26/2024 5:25 PM 03/04/2024 11:43 PM * Full Code Date Activated Date Inactivated Comments 02/19/2024 12:06 AM 02/20/2024 11:34 PM * Full Code Date Activated Date Inactivated Comments 01/11/2024 11:52 AM 01/11/2024 7:23 PM * Full Code Date Activated Date Inactivated Comments 01/09/2024 4:51 AM 01/10/2024 10:12 PM * Full Code Date Activated Date Inactivated Comments 11/25/2023 4:33 PM 11/28/2023 8:06 PM Care Teams Utility Maintenance Worker Relationship Specialty Start Date End Date Joseph Rust MD [address] [place] [id number] PCP - General Family Medicine 01/12/22 Vanna Park CERTIFIED HOME HEALTH AIDE [address] [place] [address] [place] [address] Referring Physician Otolaryngology 09/03/20 Russ Ley MD [facility] [facility] [address] [facility] [address] [place] [address] Surgeon Vascular Surgery 11/04/22 Goyo [place] MD [address] [facility] [address] [place] [address] Consulting Physician Pulmonary Disease 01/11/24
[2025-07-09 16:25] LABS: Hematocrit 13.9 % (42.0-52.0); Hemoglobin 3.8 g/dL (14.0-18.0)
[2025-07-09 16:31] LABS: Schistocytes Occasional
[2025-07-09 16:32] LABS: Band Neutrophils Percent 0 % (0-6); Hypochromasia 2+
[2025-07-09 16:33] LABS: Anisocytosis 2+
--- NOTE | 2025-07-09 16:43 | ED.GENADULT ---
HPI - General Adult General Chief complaint: Recheck/Abnormal Lab/Rx Stated complaint: dizziness, low H&H, increased confusion Time Seen by Provider: 07/09/25 15:49 History of Present Illness HPI narrative: 69-year-old male with prior history of atrial fibrillation, prior some blood thinners, history of melena, history of CVA, hypertension, COPD, diabetes presents emergency department for evaluation for reported dark tarry stools for an unknown period of time and a hemoglobin of 4.0 collected at care facility. Patient denies any abdominal pain. Patient states he does feel fatigued. Patient is tired appearing at time of initial evaluation. Related Data Home Medications ?Medication ?Instructions ?Recorded ?Confirmed ?Last Taken ?Type albuterol sulfate 90 mcg/actuation 2 puff inhalation Q6H PRN 02/05/25 07/09/25 04/29/25 History aerosol inhaler shortness of breath or wheezing amlodipine 5 mg tablet 5 mg PO DAILY 02/05/25 07/09/25 07/09/25 History atorvastatin 80 mg tablet 80 mg PO HS 02/05/25 07/09/25 07/09/25 History insulin glargine 100 unit/mL (3 15 unit subcut HS 02/05/25 07/09/25 07/09/25 History mL) subcutaneous pen (Lantus Solostar U-100 Insulin) insulin lispro 100 unit/mL 6 unit subcut .before meals 02/05/25 07/09/25 07/09/25 History subcutaneous pen lactulose 10 gram/15 mL oral 30 ml PO DAILY 02/05/25 07/09/25 07/09/25 History solution losartan 100 mg tablet 100 mg PO DAILY 02/05/25 07/09/25 07/09/25 History oxycodone 5 mg tablet 5 mg PO Q8H PRN pain 02/05/25 07/09/25 07/07/25 History acetaminophen 325 mg capsule 650 mg PO Q6H PRN fever or pain 02/06/25 07/09/25 03/02/25 History carboxymethylcellulose sodium 0.5 1 drp EACH EYE Q4H 02/06/25 07/09/25 02/05/25 12:30 History % eye drops in a dropperette nicotine 14 mg/24 hr daily 1 patch transdermal DAILY 02/06/25 07/09/25 07/09/25 History transdermal patch polyethylene glycol 3350 17 17 g PO DAILY 02/06/25 07/09/25 07/09/25 History gram/dose oral powder (Miralax) pregabalin 200 mg capsule (Lyrica) 200 mg PO BID 02/06/25 07/09/25 07/09/25 History sennosides 8.6 mg-docusate sodium 1 tab-cap PO BID 02/06/25 07/09/25 07/09/25 History 50 mg tablet (Stimulant Laxative Plus) albuterol sulfate 2.5 mg/3 mL 2.5 mg continuous nebulization Q8H 07/09/25 07/09/25 06/22/25 History (0.083 %) solution for nebulization PRN shortness of breath or wheezing amitriptyline 25 mg tablet 25 mg PO HS 07/09/25 07/09/25 07/09/25 History buspirone 10 mg capsule (Bucapsol) 10 mg PO DAILY 07/09/25 07/09/25 07/09/25 History carvedilol 25 mg tablet 25 mg PO Q12H 07/09/25 07/09/25 07/09/25 History cyclosporine 0.05 % eye drops in a 1 drp EACH EYE Q12H 07/09/25 07/09/25 07/09/25 History dropperette dabigatran etexilate 150 mg capsule 150 mg PO BID 07/09/25 07/09/25 07/09/25 History dapagliflozin propanediol 5 mg 5 mg PO DAILY 07/09/25 07/09/25 07/09/25 History tablet (Farxiga) diclofenac sodium 1 % topical gel 2 g topical BID 07/09/25 07/09/25 07/09/25 History duloxetine 60 mg capsule,delayed 30 mg PO DAILY 07/09/25 07/09/25 07/09/25 History release fluticasone 250 mcg-salmeterol 50 1 inh inhalation Q12H 07/09/25 07/09/25 07/09/25 History mcg/dose blistr powdr for inhalation (Advair Diskus) furosemide 40 mg tablet (Lasix) 40 mg PO Q12H 07/09/25 07/09/25 07/09/25 History meloxicam 15 mg tablet 15 mg PO HS 07/09/25 07/09/25 07/09/25 History methocarbamol 750 mg tablet 750 mg PO Q6H PRN postilaminectomy 07/09/25 07/09/25 05/16/25 History omeprazole 20 mg capsule,delayed 20 mg PO DAILY 07/09/25 07/09/25 07/09/25 History release umeclidinium 62.5 mcg/actuation 1 inh inhalation DAILY 07/09/25 07/09/25 07/09/25 History blister powder for inhalation (Incruse Ellipta) Allergies Allergy/AdvReac Type Severity Reaction Status Date / Time metformin Allergy Unknown Verified 07/09/25 20:51 vancomycin Allergy Unknown Verified 07/09/25 20:51 Review of Systems Review of Systems: All systems reviewed & are unremarkable except as noted in HPI and below PMFSH Past Medical History Medical History Anxiety Osteoporosis PATTIE (iron deficiency anemia) PVD (peripheral vascular disease) HLD (hyperlipidemia) Hx of fci use of blood thinners Acute on chronic anemia CVA, old, monoplegia upper limb HTN (hypertension) Atrial fibrillation COPD (chronic obstructive pulmonary disease) Diabetes Surgical History Surgical History History of laminectomy Family History Family History Other Unknown family medical history Social History Social History Smoking packs per day: 0.25 Smoking cigarettes per day: 5.0 Years smoked: 55 Smoking pack-years: 13.75 Smoking status: Current every day smoker Tobacco type: cigarettes Second hand tobacco smoke exposure: Yes Alcohol intake: never Substance use: never Do You Feel Safe in your Home?: Yes Lack of Transportation: No Lack of Food: Never True Current Housing: I Have Housing Concerned About Future Housing: No Difficulty Paying Gas/Electric Bills: No Difficulty Paying for Meds: No Currently Unemployed: No Education: Trade/Vocational Certificate Difficulty w/ Childcare or Family Care: No Spiritual care concerns: No Exam Narrative: APPEARANCE: Ill-appearing HEAD: normocephalic, atraumatic. EYES: PERRLA/EOMI, conjunctivae clear. NOSE: Normal no drainage EARS:TMS clear with good light reflex. THROAT: Pharynx clear, no exudate. NECK: Supple. No adenopathy, no masses. RESPIRATORY: Airway patent, respirations nonlabored. Clear to auscultation bilaterally, no rales, rhonchi, wheezing. CARDIOVASCULAR: Regular rate and rhythm without murmurs rubs or gallops. ABDOMINAL: Soft, nontender, nondistended, normal bowel sounds MUSCULOSKELETAL: Moves all extremities. Strength/ROM intact, No edema, No calf tenderness. NEURO: Alert. Cranial nerves II through XII intact. Good gait. Good coordination SKIN: Warm, dry. Normal Color Rectal exam: Melena stool on digital rectal exam, Hemoccult positive Course Vital Signs Vital signs: Vital Signs Temperature 98.2 F 07/09/25 15:04 Pulse Rate 64 07/09/25 15:04 Respiratory Rate 19 07/09/25 15:04 Blood Pressure 106/63 07/09/25 15:04 Pulse Oximetry 96 07/09/25 15:04 Oxygen Delivery Room Air 07/09/25 15:04 Temperature 98.2 F 07/09/25 19:18 Pulse Rate 98 07/09/25 20:13 Respiratory Rate 22 H 07/09/25 20:13 Blood Pressure 112/79 07/09/25 20:13 Pulse Oximetry 98 07/09/25 20:26 Oxygen Delivery Room Air 07/09/25 20:26 Fraction of Inspired Oxygen 21 07/09/25 20:26 Medical Decision Making [facility] Narrative Medical decision making narrative: 69-year-old male presents emergency department for evaluation for low hemoglobin. Patient's hemoglobin was confirmed to be 3.8 with hematocrit of 13.9. Patient was Hemoccult positive on the digital rectal exam with dark melena stool. This patient did have 2 units of packed red blood ordered along with starting IV Protonix. Patient does have a creatinine of 1.25 and a BUN of 31% both higher than his typical baseline. UA was negative for infection. Chest x-ray showed no acute cardiopulmonary abnormality. GI was consulted and they will see him as consult. are binding studies were ordered Prior to packed red blood cells. CT abdomen pelvis was ordered and had no acute abnormalities Critical Care Procedure Note Authorized and Performed by: Mateo Bermudez Total critical care time: Approximately 36 minutes Due to a high probability of clinically significant, life threatening deterioration, the patient required my highest level of preparedness to intervene emergently and I personally spent this critical care time directly and personally managing the patient. This critical care time included obtaining a history; examining the patient; pulse oximetry; ordering and review of studies; arranging urgent treatment with development of a management plan; evaluation of patient's response to treatment; frequent reassessment; and, discussions with other providers. This critical care time was performed to assess and manage the high probability of imminent, life-threatening deterioration that could result in multi-organ failure. It was exclusive of separately billable procedures and treating other patients and teaching time. Please see MDM section and the rest of the note for further information on patient assessment and treatment. Differential Diagnosis Differential Diagnosis: anemia, upper GI bleed, lower GI bleed Vital Signs Vital Signs: Vital Signs Temperature 98.2 F 07/09/25 15:04 Pulse Rate 64 07/09/25 15:04 Respiratory Rate 19 07/09/25 15:04 Blood Pressure 106/63 07/09/25 15:04 Pulse Oximetry 96 07/09/25 15:04 Oxygen Delivery Room Air 07/09/25 15:04 Temperature 98.2 F 07/09/25 19:18 Pulse Rate 98 07/09/25 20:13 Respiratory Rate 22 H 07/09/25 20:13 Blood Pressure 112/79 07/09/25 20:13 Pulse Oximetry 98 07/09/25 20:26 Oxygen Delivery Room Air 07/09/25 20:26 Fraction of Inspired Oxygen 21 07/09/25 20:26 Lab Data Lab results reviewed: Yes I reviewed the patient's lab results. 07/09/25 21:20 07/09/25 15:44 Labs: Lab Results 07/09/25 07/09/25 Range/Units 15:31 15:44 WBC 4.8 (4.5-10.0) K/mm3 RBC 1.68 L (4.6-6.20) M/mm3 Hgb 3.8 L* D (14.0-18.0) g/dL Hct 13.9 L* (42.0-52.0) % MCV 82.7 (80-100) fl MCH 22.6 L (26-34) pg MCHC 27.3 L (32-36) g/dl RDW 18.5 H (11.5-14.5) % Plt Count 133 L (150-375) k/mm3 MPV 11.7 H (7.4-10.4) fl Immature Gran % (Auto) 0.6 H (0-0.5) % Neut % (Auto) 71.4 (45.5-73.1) % Lymph % (Auto) 14.6 L (18.3-44.2) % Lewis % (Auto) 11.7 H (2.6-8.5) % Eos % (Auto) 1.3 (0-4.4) % Baso % (Auto) 0.4 (0.2-1.2) % Lymph # (Auto) 0.70 L (0.9-3.2) K/mm3 Lewis # (Auto) 0.6 (0.1-0.6) K/mm3 Eos # (Auto) 0.1 (0-0.3) K/mm3 Baso # (Auto) 0.0 (0.0-0.1) K/mm3 Abs Immat Gran (auto) 0.03 (0.00-0.031) K/mm3 Absolute Neuts (auto) 3.4 (1.3-6.7) K/mm3 Absolute Nucleated RBC 0.000 (0.0-0.012) K/mm3 Band Neutrophils % 0 (0-6) % Nucleated RBC % 0.0 (0.0-0.2) % Platelet Estimate Slightly decreased (Adequate) Hypochromasia 2+ Anisocytosis 2+ Schistocytes Occasional PT 25.7 H (11.1-14.7) Seconds INR 2.5 APTT 80.0 H (22.3-36.8) Seconds Sodium 136 L (137-145) mmol/L Potassium 4.0 (3.4-5.0) mmol/L Chloride 101 (98-107) mmol/L Carbon Dioxide 29 (22-30) mmol/L Anion Gap 6 (4-12) mmol/L BUN 31 H D (9-20) mg/dL Creatinine 1.25 (0.7-1.3) mg/dL Estim Creat Clear Calc Not Reportable Estimated GFR 57 L (59 - ) Glucose 129 H (65-110) mg/dL Calcium 8.0 L (8.4-10.2) mg/dL Iron 19 L (49-181) ug/dL TIBC 385 (265-497) ug/dL % Saturation 5 L (20-50) % Total Bilirubin 0.3 (0.2-1.3) mg/dL AST 23 (17-59) U/L ALT 13 (6-50) U/L Alkaline Phosphatase 101 (38-126) U/L Total Protein 5.8 L (6.3-8.2) g/dL Albumin 3.3 L (3.5-5.1) g/dL Urine Color Yellow (Yellow) Urine Appearance Clear (Clear) Urine pH 7.0 (5.0-9.0) Ur Specific [place] 1.012 (1.001-1.035) Urine Protein Negative (Negative) mg/dL Urine Glucose (UA) 3+ H (Negative) mg/dL Urine Ketones Negative (Negative) mg/dL Ur Blood (Man) Negative (Negative) Urine Nitrate Negative (Negative) Urine Bilirubin Negative (Negative) Urine Urobilinogen 1.0 (<2.0) mg/dL Leukocyte Esterase Rfl Negative (Negative) PAT/UL Blood Type O Positive Antibody Screen Negative Crossmatch See Detail Imaging Data Radiologist's impression: Impressions Chest X-Ray 07/09/25 15:49 Impression: Mild CHF Abdomen/Pelvis CT 07/09/25 18:06 IMPRESSION: No acute abnormality is noted in the abdomen and pelvis. Ventral wall hernia containing small bowel loops. There is no bowel obstruction. Fat-containing left inguinal hernia. All CT scans at this facility are performed using low dose modulation techniques as appropriate to perform exam including the following: automated exposure control; use of iterative reconstruction technique; adjustment of the mA and/or kV according to patient size (this includes techniques or standardized protocols for targeted exams where dose is matched to indication/reason for exam). Critical Care Time Critical Care Time Critical Care Time: Yes Total Critical Care Time: 40 Discharge Plan Discharge Clinical Impression: Anemia, Melena, GI bleed Patient Disposition: Still a Patient Condition: Serious
[2025-07-09 16:55] LABS: Iron 19 ug/dL (49-181)
[2025-07-09 17:05] LABS: INR 2.5; Percent Iron Saturation 5 % (20-50); Prothrombin Time 25.7 Seconds (11.1-14.7)
[2025-07-09 17:06] LABS: Partial Thromboplastin Time 80.0 Seconds (22.3-36.8)
[2025-07-09] MEDS: PANTOPRAZOLE SODIUM IV 40 MG VIAL 80 MG IV PUSH (17:21)
[2025-07-09] MEDS: SODIUM CHLORIDE 0.9% IV 250 ML 30 ML IV CONT (17:25)
[2025-07-09] MEDS: TUBING, BLOOD SET 1 EACH XX ×2 (17:25→19:40)
--- NOTE | 2025-07-09 19:44 | WPCEDHO ---
ED Hand Off Checklist All vitals saved:yes IV Site documented:yes All med administrations documented:yes Triage Note Triage Note Patient coming from [facility] at 07/09/25 15:04 [place]. Patient was confused yesterday, staff did labs and urine sample. Labs came back today, hemoglobin 4.0. This am, patient started feeling dizzy. vitals 100/60, 100% RA, BG 244 Allergies metformin Allergy (Verified 05/15/25 15:38) Unknown vancomycin Allergy (Verified 05/15/25 15:38) Unknown Family History (Last Reviewed 05/15/25 @ 15:31 by Lasha Solomon M.D.) Other Unknown family medical history Active Medications including assessments/comments Sodium Chloride (Normal Saline Iv) 250 mls @ 30 mls/hr IV CONT .[id number] STA Stop: 07/10/25 00:45 Last Admin: 07/09/25 17:25 Dose: 30 mls/hr Documented By: MARSHALL Infusion/Titration Document 07/09/25 17:25 [facility] (Rec: 07/09/25 17:25 [facility] [id number]) Intake IV Site Peripheral Access Right Forearm Container Volume 250 Waste Amount 0 Dosing Infusion Rate 30 Cumulative Dose Not Applicable Increase/Decrease Started Elapsed Time Elapsed Time ( 0m minutes) Administered/Completed Medications Discontinued Medications IV Miscellaneous Supplies (Tubing, Blood Set) Confirm Administered Dose 1 each XX .STK-MED ONE Stop: 07/09/25 17:19 Last Admin: 07/09/25 17:25 Dose: 1 each Documented By: MARSHALL IV Miscellaneous Supplies (Tubing, Blood Set) Confirm Administered Dose 1 each XX .STK-MED ONE Stop: 07/09/25 18:58 Last Admin: 07/09/25 19:40 Dose: 1 each Documented By: MARSHALL Pantoprazole Sodium (Pantoprazole Sodium Iv 40 Mg Vial) 80 mg IV PUSH ONCE STA Stop: 07/09/25 16:44 Last Admin: 07/09/25 17:21 Dose: 80 mg Documented By: MARSHALL Notes 07/09/25 15:53 Nurse Note by Janet Solares multiple attempts made to obtain iv access and lab specimens by multiple staff members. Bob from vascular access contacted and will come to the patients room to obtain iv access Initialized on 07/09/25 15:53 - END OF NOTE Interventions/Assessments General Assessment Start: 07/09/25 15:01 Freq: Status: Active Protocol: Document 07/09/25 19:42 [facility] (Rec: 07/09/25 19:42 [facility] [id number]) [place] Neurological Assessment Level of Alert,Awake Consciousness Arousable to Verbal Orientation Oriented to Person,Oriented to Place,Oriented to Time Behavior Cooperative Patient Able to Comprehend Comprehension Ability to Maintain Unable to Assess Balance Facial Symmetry Unable to Assess Speech Pattern Unable to Assess Finger to Nose Test Activity Impossible Heel to Villalobos Test Activity Impossible IV / Saline Lock, Insert Start: 07/09/25 15:01 Freq: Status: Active Protocol: Document 07/09/25 16:10 [facility] (Rec: 07/09/25 16:11 [facility] [id number]) IV Assessment Peripheral Access Right Forearm IV Catheter Access Initiated IV Insertion Date 07/09/25 IV Insertion Time 16:11 Catheter Gauge 22 IV Site Assessment WNL IV Care and WNL Maintenance Last Vital Signs Temperature 98.2 F 07/09/25 19:13 Pulse Rate 71 07/09/25 19:17 Respiratory Rate 20 07/09/25 19:17 Pulse Oximetry 99 07/09/25 19:17 Blood Pressure 149/68 H 07/09/25 19:17 Blood Pressure Mean 93 07/09/25 19:17 Oxygen Delivery Room Air 07/09/25 15:04 Weight 81.5 kg 07/09/25 15:04 Last Result - Abnormals Only RBC 1.68 M/mm3 (4.6-6.20) L 07/09/25 15:44 Hgb 3.8 g/dL (14.0-18.0) L* D 07/09/25 15:44 Hct 13.9 % (42.0-52.0) L* 07/09/25 15:44 MCH 22.6 pg (26-34) L 07/09/25 15:44 MCHC 27.3 g/dl (32-36) L 07/09/25 15:44 RDW 18.5 % (11.5-14.5) H 07/09/25 15:44 Plt Count 133 k/mm3 (150-375) L 07/09/25 15:44 MPV 11.7 fl (7.4-10.4) H 07/09/25 15:44 Immature Gran % (Auto) 0.6 % (0-0.5) H 07/09/25 15:44 Lymph % (Auto) 14.6 % (18.3-44.2) L 07/09/25 15:44 [place] % (Auto) 11.7 % (2.6-8.5) H 07/09/25 15:44 Lymph # (Auto) 0.70 K/mm3 (0.9-3.2) L 07/09/25 15:44 PT 25.7 Seconds (11.1-14.7) H 07/09/25 15:44 APTT 80.0 Seconds (22.3-36.8) H 07/09/25 15:44 Sodium 136 mmol/L (137-145) L 07/09/25 15:44 BUN 31 mg/dL (9-20) H D 07/09/25 15:44 Estimated GFR 57 (59-) L 07/09/25 15:44 Glucose 129 mg/dL (65-110) H 07/09/25 15:44 Calcium 8.0 mg/dL (8.4-10.2) L 07/09/25 15:44 Iron 19 ug/dL (49-181) L 07/09/25 15:44 % Saturation 5 % (20-50) L 07/09/25 15:44 Total Protein 5.8 g/dL (6.3-8.2) L 07/09/25 15:44 Albumin 3.3 g/dL (3.5-5.1) L 07/09/25 15:44 Urine Glucose (UA) 3+ mg/dL (Negative) H 07/09/25 15:31 Crossmatch See Detail 07/09/25 15:44 Most Recent Suicide Severity Rating Suicide Severity Rating NO RISK INDICATED 07/09/25 15:04
--- NOTE | 2025-07-09 19:58 | PM.IMHP ---
H&P: HPI History of Present Illness Date/Time: 07/09/25 19:58 Chief Complaint: Abnormal Labs Narrative: 69 y/o M with PMH of atrial fibrillation on anticoagulation, CVA, anemia, COPD, hypertension, and diabetes presents here with abnormal hemoglobin. The patient presents here from [facility] via EMS on 07/09 for further evaluation of low hemoglobin. Per staff reported to EMS, the patient was more confused yesterday which prompted repeat labs and a urine sample. Labs resulted today and showing a hemoglobin of 4.0. The patient is reporting new onset dizziness this morning as well as fatigue. He is additionally reporting new dark tarry stools, believes this has been going on for few months. He has a history of atrial fibrillation on anticoagulation (Pradaxa). He does report a history of melena. Per chart review, last hospitalized here in January of 2025 and was found to be anemic with a hemoglobin of 5.4 for which he was transfused and underwent a upper and lower scope which was significant for internal hemorrhoids and diverticulosis without perforation/abscess/bleeding. He currently reports improvement in his symptoms and is A&O x4. Initial VS at presentation: 98.2? F, HR 64, R 19, 106/63, and 96% on RA. ED workup showed: No leukocytosis, hemoglobin 3.8, MCV within normal limits, MCHC 27.3, platelet count 133, INR 2.5, no significant electrolyte derangements, creatinine 1.25 and GFR 57, glucose 129, iron 19, TIBC 385,% saturation 5%, UA showed 3+ glucose otherwise unremarkable. CXR showed mild CHF. CT of the abdomen/pelvis showed no acute abnormality, ventral wall hernia containing small bowel loops without obstruction, fat containing left inguinal hernia. EKG showed sinus rhythm, rate 64, borderline right axis deviation. Review of Systems Review of Systems: All systems reviewed & are unremarkable except as noted in HPI and below PMFSH Past Medical History Medical History Anxiety Osteoporosis PATTIE (iron deficiency anemia) PVD (peripheral vascular disease) HLD (hyperlipidemia) Hx of care home use of blood thinners Acute on chronic anemia CVA, old, monoplegia upper limb HTN (hypertension) Atrial fibrillation COPD (chronic obstructive pulmonary disease) Diabetes Surgical History Surgical History History of laminectomy Family History Family History Other Unknown family medical history Social History Social History Smoking packs per day: 0.25 Smoking cigarettes per day: 5.0 Years smoked: 55 Smoking pack-years: 13.75 Smoking status: Current every day smoker Tobacco type: cigarettes Second hand tobacco smoke exposure: Yes Alcohol intake: never Substance use: never Do You Feel Safe in your Home?: Yes Lack of Transportation: No Lack of Food: Never True Current Housing: I Have Housing Concerned About Future Housing: No Difficulty Paying Gas/Electric Bills: No Difficulty Paying for Meds: No Currently Unemployed: No Education: Trade/Vocational Certificate Difficulty w/ Childcare or Family Care: No Spiritual care concerns: No Meds Home Medications and Allergies Home Medications ?Medication ?Instructions ?Recorded ?Confirmed ?Type albuterol sulfate 90 mcg/actuation 2 puff inhalation Q6H PRN 02/05/25 07/09/25 History aerosol inhaler shortness of breath or wheezing amlodipine 5 mg tablet 5 mg PO DAILY 02/05/25 07/09/25 History atorvastatin 80 mg tablet 80 mg PO HS 02/05/25 07/09/25 History insulin glargine 100 unit/mL (3 15 unit subcut HS 02/05/25 07/09/25 History mL) subcutaneous pen (Lantus Solostar U-100 Insulin) insulin lispro 100 unit/mL 6 unit subcut .before meals 02/05/25 07/09/25 History subcutaneous pen lactulose 10 gram/15 mL oral 30 ml PO DAILY 02/05/25 07/09/25 History solution losartan 100 mg tablet 100 mg PO DAILY 02/05/25 07/09/25 History oxycodone 5 mg tablet 5 mg PO Q8H PRN pain 02/05/25 07/09/25 History acetaminophen 325 mg capsule 650 mg PO Q6H PRN fever or pain 02/06/25 07/09/25 History carboxymethylcellulose sodium 0.5 1 drp EACH EYE Q4H 02/06/25 07/09/25 History % eye drops in a dropperette nicotine 14 mg/24 hr daily 1 patch transdermal DAILY 02/06/25 07/09/25 History transdermal patch polyethylene glycol 3350 17 17 g PO DAILY 02/06/25 07/09/25 History gram/dose oral powder (Miralax) pregabalin 200 mg capsule (Lyrica) 200 mg PO BID 02/06/25 07/09/25 History sennosides 8.6 mg-docusate sodium 1 tab-cap PO BID 02/06/25 07/09/25 History 50 mg tablet (Stimulant Laxative Plus) albuterol sulfate 2.5 mg/3 mL 2.5 mg continuous nebulization Q8H 07/09/25 07/09/25 History (0.083 %) solution for nebulization PRN shortness of breath or wheezing amitriptyline 25 mg tablet 25 mg PO HS 07/09/25 07/09/25 History buspirone 10 mg capsule (Bucapsol) 10 mg PO DAILY 07/09/25 07/09/25 History carvedilol 25 mg tablet 25 mg PO Q12H 07/09/25 07/09/25 History cyclosporine 0.05 % eye drops in a 1 drp EACH EYE Q12H 07/09/25 07/09/25 History dropperette dabigatran etexilate 150 mg capsule 150 mg PO BID 07/09/25 07/09/25 History dapagliflozin propanediol 5 mg 5 mg PO DAILY 07/09/25 07/09/25 History tablet (Farxiga) diclofenac sodium 1 % topical gel 2 g topical BID 07/09/25 07/09/25 History duloxetine 60 mg capsule,delayed 30 mg PO DAILY 07/09/25 07/09/25 History release fluticasone 250 mcg-salmeterol 50 1 inh inhalation Q12H 07/09/25 07/09/25 History mcg/dose blistr powdr for inhalation (Advair Diskus) furosemide 40 mg tablet (Lasix) 40 mg PO Q12H 07/09/25 07/09/25 History meloxicam 15 mg tablet 15 mg PO HS 07/09/25 07/09/25 History methocarbamol 750 mg tablet 750 mg PO Q6H PRN postilaminectomy 07/09/25 07/09/25 History omeprazole 20 mg capsule,delayed 20 mg PO DAILY 07/09/25 07/09/25 History release umeclidinium 62.5 mcg/actuation 1 inh inhalation DAILY 07/09/25 07/09/25 History blister powder for inhalation (Incruse Ellipta) Allergies Allergy/AdvReac Type Severity Reaction Status Date / Time metformin Allergy Unknown Verified 07/09/25 20:51 vancomycin Allergy Unknown Verified 07/09/25 20:51 Vital Signs Vital Signs - 24 hr 07/09/25 15:04 07/09/25 15:09 07/09/25 15:10 Temperature 98.2 F Pulse Rate 64 63 66 Respiratory Rate 19 18 Blood Pressure 106/63 106/63 Pulse Oximetry 96 Oxygen Delivery Room Air 07/09/25 15:15 07/09/25 15:16 07/09/25 15:30 Temperature Pulse Rate 65 65 71 Respiratory Rate 18 26 H 20 Blood Pressure 120/54 L Pulse Oximetry 93 Oxygen Delivery 07/09/25 15:31 07/09/25 15:45 07/09/25 15:46 Temperature Pulse Rate 65 67 72 Respiratory Rate 19 23 H 14 Blood Pressure 118/62 96/52 L Pulse Oximetry 95 95 Oxygen Delivery 07/09/25 16:00 07/09/25 16:01 07/09/25 16:15 Temperature Pulse Rate 69 77 68 Respiratory Rate 21 H 18 17 Blood Pressure 117/74 Pulse Oximetry 100 95 Oxygen Delivery 07/09/25 16:16 07/09/25 17:03 07/09/25 17:15 Temperature Pulse Rate 68 67 67 Respiratory Rate 19 16 15 Blood Pressure 110/69 Pulse Oximetry 95 99 100 Oxygen Delivery 07/09/25 17:16 07/09/25 17:17 07/09/25 17:23 Temperature 97.8 F Pulse Rate 68 67 67 Respiratory Rate 17 16 19 Blood Pressure 116/60 103/59 L 116/30 L Pulse Oximetry 99 99 99 Oxygen Delivery 07/09/25 17:30 07/09/25 18:35 07/09/25 18:54 Temperature 98.2 F 98.7 F Pulse Rate 67 73 78 Respiratory Rate 16 18 19 Blood Pressure 103/59 L 117/72 Pulse Oximetry 99 98 100 Oxygen Delivery 07/09/25 18:59 07/09/25 19:00 07/09/25 19:03 Temperature 98.7 F Pulse Rate 90 71 80 Respiratory Rate 22 H 29 H 21 H Blood Pressure 143/87 H Pulse Oximetry 100 100 100 Oxygen Delivery 07/09/25 19:03 07/09/25 19:13 07/09/25 19:17 Temperature 98.2 F Pulse Rate 77 99 71 Respiratory Rate 21 H 17 20 Blood Pressure 143/87 H 149/68 H 149/68 H Pulse Oximetry 100 100 99 Oxygen Delivery 07/09/25 19:18 07/09/25 19:51 Temperature 98.2 F Pulse Rate 75 74 Respiratory Rate 18 19 Blood Pressure 150/62 H 150/62 H Pulse Oximetry 100 100 Oxygen Delivery Exam Const: General: comfortable and no acute distress Other: Appy Finnish, elderly, nontoxic appearance HENMT: Face/Nose/Sinus: Normal nares present Mouth: Yes moist mucous membranes Eyes: General: appearance normal, both eyes and all related structures Sclera: sclerae normal Pupils: Equal, round and reactive pupils present EOM: EOMs intact bilaterally Resp: Effort & Inspection: normal respiratory effort Other: Diminished throughout with faint expiratory wheeze. Cardio: Rate: regular rate Rhythm: regular rhythm Other: S1-S2 present without murmur, rub, ectopy GI: Other: Abdomen soft, nondistended, nontender. Normoactive bowel sounds in all quadrants. Skin: General skin exam: normal color and no rashes or lesions noted Wounds: no wounds Neuro: Speech: normal speech Sensory Exam: normal sensation Other: A&O x4 Extrem: Other: Heel pads in place bilaterally Psych: Mental Status: mental status grossly normal Affect: normal affect Other: Good insight and judgment, pleasant H&P: Results Labs Labs: Short CBC 07/09/25 Range/Units 15:44 WBC 4.8 (4.5-10.0) K/mm3 Hgb 3.8 L* D (14.0-18.0) g/dL Hct 13.9 L* (42.0-52.0) % Plt Count 133 L (150-375) k/mm3 BMP 07/09/25 15:44 Sodium 136 L Potassium 4.0 Chloride 101 Carbon Dioxide 29 BUN 31 H D Creatinine 1.25 Glucose 129 H Calcium 8.0 L Liver Function 07/09/25 Range/Units 15:44 Total Bilirubin 0.3 (0.2-1.3) mg/dL AST 23 (17-59) U/L ALT 13 (6-50) U/L Alkaline Phosphatase 101 (38-126) U/L Albumin 3.3 L (3.5-5.1) g/dL Urine 07/09/25 Range/Units 15:31 Urine Color Yellow (Yellow) Urine Appearance Clear (Clear) Urine pH 7.0 (5.0-9.0) Ur Specific [facility] 1.012 (1.001-1.035) Urine Protein Negative (Negative) mg/dL Urine Glucose (UA) 3+ H (Negative) mg/dL Assessment and Plan Assessment and plan (1) Acute on chronic anemia: Code(s): D64.9 - Anemia, unspecified Status: Acute Assessment and Plan: Hgb 3.8 upon admission on 07/09. Reviewed previous lab work, baseline appears closer to 8-9. Has history of recent anemia in January of 2025. Upper and lower scope were completed. EGD was unremarkable. Colonoscopy significant for internal hemorrhoids without active bleeding. - Hx of PATTIE and internal hemorrhoids - iron studies completed in the ED and consistent with PATTIE. Will likely need Venofer infusion once hemoglobin is stabilized. - transfuse if <7, currently has 2u PRBC ordered. suspect patient will need additional units, recheck post 2u. pulmonary edema noted on CXR, will need to monitor closely. Lasix 20 mg IV x1 post 2nd transfusion, continue home PO Lasix (40 mg BID). - trend H&H - melenic stool on GUERRERO/Hemoccult positive on 07/09 in the ED - start PPI BID IV - monitor hemodynamic stability, BP currently 150/62 and no hypoxia noted upon review of vital signs (2) Melena: Code(s): K92.1 - Melena Status: Acute Assessment and Plan: Melenic stool on GUERRERO/Hemoccult-positive in the ED on 07/09. Reviewed previous EGD and colonoscopy from in January of 2025. Internal hemorrhoids noted on colonoscopy with no active bleeding. - GI consulted, made NPO midnight for possible scope tomorrow on 07/09 - transfusing - monitor hemoglobin - hold anticoagulation - Pradaxa, INR 2.5 (3) Atrial fibrillation: Qualifiers: Atrial fibrillation type: paroxysmal Qualified Code(s): I48.0 - Paroxysmal atrial fibrillation Code(s): I48.91 - Unspecified atrial fibrillation Status: Chronic Assessment and Plan: History of paroxysmal AFib. EKG completed in the ED on 07/09, personally reviewed. Showed NSR, rate 64. - continue home medications: Coreg b.i.d. - hold anticoagulation: Pradaxa, INR currently 2.5. Repeat PT/PTT/INR in a.m.. (4) Diabetes: Qualifiers: Diabetes mellitus complication status: without complication Diabetes mellitus care home insulin use: with care home use Diabetes mellitus type: type 2 Qualified Code(s): E11.9 - Type 2 diabetes mellitus without complications; Z79.4 - long-term (current) use of insulin Code(s): E11.9 - Type 2 diabetes mellitus without complications Status: Chronic Assessment and Plan: - hypoglycemia protocol - POC blood glucose ACHS - home medication: hold Farxiga. Hold Lantus 15 units HS and lispro 6 units t.i.d. with meals as he will be NPO at midnight for scope tomorrow, resume post scope. - correct regimen ordered - low dose TIDWM - A1C 5.7% on 02/08/2025 (5) HTN (hypertension): Qualifiers: Hypertension type: primary hypertension Qualified Code(s): I10 - Essential (primary) hypertension Code(s): I10 - Essential (primary) hypertension Status: Chronic Assessment and Plan: - chronic, currently 150/62, stable. - continue home medications: Amlodipine 5 mg daily, Coreg 25 mg b.i.d., losartan 100 mg daily - monitor (6) COPD (chronic obstructive pulmonary disease): Qualifiers: COPD type: unspecified COPD Qualified Code(s): J44.9 - Chronic obstructive pulmonary disease, unspecified Code(s): J44.9 - Chronic obstructive pulmonary disease, unspecified Status: Chronic Assessment and Plan: Mild expiratory wheeze on exam and diminished throughout. Denies any increasing cough or sputum production, does not meet criteria for COPD exacerbation. Will schedule DuoNebs, no current indication for prednisone or antibiotic course. - DuoNebs jesus alberto - hold home albuterol. continue Advair and Incruse. - continue Plan Diet: Diabetic, NPO midnight GI Prophylaxis: PPI b.i.d. DVT Prophylaxis: SCDs IV fluids: None, transfusing blood Lines/Tubes: Peripheral IV Code Status: Full code Quality VTE Prophylaxis VTE prophylaxis: mechanical ordered If No VTE Prophylaxis Answer both mechanical and pharmacologic: Reason no pharmacologic proph: medical contraindication active bleeding/bleeding risk Hospitalist MIPS Advance Care Plan I have confirmed that the patient's Advanced Care Plan is present, code status is documented, or surrogate decision maker is listed in patient medical record.: Yes Medication Reconciliation I have utilized all available resources to obtain, update and review the patients current medications (includes all prescriptions, OTC, herbals, cannabis, and nutritional supplements).: Yes
--- NOTE | 2025-07-09 21:15 | ADMGEN ---
This patient, Maksim Scanlon, was admitted to IMU Room 200-01 via stretcher with one tech and no issues present. Patient/family oriented to hospital policies and general routines including ID bracelet, bed and alarms, visiting hours, pain management, procedures, bathroom and other care routines, personal items, smoking policy, room service/diet, and visiting hours. Information on how to activate the Rapid Response Team has been discussed. Patient/Family are encouraged to report perceived risks to care and to ask questions if they do not understand what they are told or what they should do.
[2025-07-09 21:26] LABS: Hematocrit 23.8 % (42.0-52.0); Hemoglobin 7.1 g/dL (14.0-18.0)
[2025-07-09] MEDS: FUROSEMIDE INJ 40 MG/4 ML VIAL 20 MG IV PUSH (22:13)
[2025-07-09] MEDS: AMITRIPTYLINE HCL 25 MG TABLET PO (22:13)
[2025-07-09] MEDS: cycloSPORINE 0.4 ML OPHTH SOLUTION 1 DROP EACH EYE (22:13)
[2025-07-09] MEDS: PREGABALIN (*CRX) 50 MG CAPSULE 200 MG PO (22:14)
[2025-07-09] MEDS: NICOTINE (*PBKC) 14 MG PATCH 1 PATCH TRANSDERM (22:14)
[2025-07-09] MEDS: ATORVASTATIN 40 MG TABLET 80 MG PO (22:14)
[2025-07-09] MEDS: ARTIFICIAL TEARS OPHTH SOLN 15 ML BOTTLE 1 DROP EACH EYE (22:14)
[2025-07-10] VITALS (25 sets, daily range): BP systolic 108–140; BP diastolic 52–68; PULSE 66–100; RESP 12–30; TEMP 36.4–37.2; O2SAT 94–100
[2025-07-10] MEDS: IPRATROPIUM 0.5 MG/ALBUTEROL SULFATE 2.5 MG (BASE) AMPUL.NEB 3 ML INHALATION ×4 (01:23→20:26)
[2025-07-10 04:02] LABS: INR 1.9; Prothrombin Time 21.0 Seconds (11.1-14.7)
[2025-07-10 04:04] LABS: Alanine Aminotransferase 13 U/L (6-50); Albumin Level 3.5 g/dL (3.5-5.1); Alkaline Phosphatase 121 U/L (38-126); Anion Gap 4 mmol/L (4-12); Aspartate Amino Transferase 23 U/L (17-59); Bilirubin,Total 0.9 mg/dL (0.2-1.3); Blood Urea Nitrogen 31 mg/dL (9-20); Calcium 8.4 mg/dL (8.4-10.2); Carbon Dioxide 32 mmol/L (22-30); Chloride 99 mmol/L (98-107); Estimated CRCL calculation 47 ml/min; Estimated Glomerular Filt Rate 54; Glucose 158 mg/dL (65-110); Partial Thromboplastin Time 66.7 Seconds (22.3-36.8); Potassium 3.7 mmol/L (3.4-5.0); Sodium 135 mmol/L (137-145); Total Protein 6.0 g/dL (6.3-8.2)
[2025-07-10 04:06] LABS: Hematocrit 22.9 % (42.0-52.0); Hemoglobin 7.0 g/dL (14.0-18.0); Immature Granulocyte Percent A 0.3 % (0-0.5); Lymphocytes Absolute Auto 0.62 K/mm3 (0.9-3.2); Mean Corpuscular HGB Conc 30.6 g/dl (32-36); Mean Corpuscular Hemoglobin 25.6 pg (26-34); Mean Corpuscular Volume 83.9 fl (80-100); Nucleated Red Blood Cells Absolute Auto 0.000 K/mm3 (0.0-0.012); Nucleated Red Blood Cells Perc 0.0 % (0.0-0.2); Platelet Count Result 157 k/mm3 (150-375); Red Blood Count 2.73 M/mm3 (4.6-6.20); White Blood Count 6.1 K/mm3 (4.5-10.0)
[2025-07-10] MEDS: ARTIFICIAL TEARS OPHTH SOLN 15 ML BOTTLE 1 DROP EACH EYE ×4 (06:17→21:10)
[2025-07-10] MEDS: FLUTICASONE/SALMETEROL 115-21 MCG INHALER 1 PUFF 2 PUFF INHALATION ×2 (07:16→20:27)
[2025-07-10] MEDS: UMECLIDINIUM BROMIDE 62.5 MCG ELLIPTA 1 PUFF INHALATION (07:17)
[2025-07-10] MEDS: cycloSPORINE 0.4 ML OPHTH SOLUTION 1 DROP EACH EYE ×2 (08:30→21:54)
[2025-07-10] MEDS: NICOTINE (*PBKC) 14 MG PATCH 1 PATCH TRANSDERM (08:31)
[2025-07-10] MEDS: PANTOPRAZOLE SODIUM IV 40 MG VIAL IV PUSH (08:31)
[2025-07-10 08:52] LABS: Hematocrit 22.3 % (42.0-52.0)
[2025-07-10 08:56] LABS: Hemoglobin 6.9 g/dL (14.0-18.0)
[2025-07-10] MEDS: LACTATED RINGERS 1,000 ML 150 ML IV CONT (11:32)
--- NOTE | 2025-07-10 12:20 | WPDANESEPPF ---
Anes - Initial Pre Proc Eval Procedure: Operation Date: 07/10/25 14:30 Proposed Procedures p Esophagogastroduodenoscopy - Jeromy Patel MD Date/Time: 07/10/25 12:20 Surgeon: Rachael Emmanuel MD Pre Op Diagnosis: Anemia,Upper GI Bleed ,Melena Patient Data Age: 69 Gender: M Height: 1.75 m Weight: 79 kg Last Vital Signs Temp 36.9 C 07/10/25 11:29 Pulse 70 07/10/25 11:29 Resp 20 07/10/25 11:29 BP 140/68 07/10/25 11:29 Pulse Ox 99 07/10/25 11:29 O2 Del Method Room Air 07/10/25 11:29 FiO2 21 07/09/25 20:26 Allergies Allergy/AdvReac Type Severity Reaction Status Date / Time metformin Allergy Unknown Verified 07/09/25 20:51 vancomycin Allergy Unknown Verified 07/09/25 20:51 Home Medications ?Medication ?Instructions ?Recorded ?Confirmed ?Type albuterol sulfate 90 mcg/actuation 2 puff inhalation Q6H PRN 02/05/25 07/09/25 History aerosol inhaler shortness of breath or wheezing amlodipine 5 mg tablet 5 mg PO DAILY 02/05/25 07/09/25 History atorvastatin 80 mg tablet 80 mg PO HS 02/05/25 07/09/25 History insulin glargine 100 unit/mL (3 15 unit subcut HS 02/05/25 07/09/25 History mL) subcutaneous pen (Lantus Solostar U-100 Insulin) insulin lispro 100 unit/mL 6 unit subcut .before meals 02/05/25 07/09/25 History subcutaneous pen lactulose 10 gram/15 mL oral 30 ml PO DAILY 02/05/25 07/09/25 History solution losartan 100 mg tablet 100 mg PO DAILY 02/05/25 07/09/25 History oxycodone 5 mg tablet 5 mg PO Q8H PRN pain 02/05/25 07/09/25 History acetaminophen 325 mg capsule 650 mg PO Q6H PRN fever or pain 02/06/25 07/09/25 History carboxymethylcellulose sodium 0.5 1 drp EACH EYE Q4H 02/06/25 07/09/25 History % eye drops in a dropperette nicotine 14 mg/24 hr daily 1 patch transdermal DAILY 02/06/25 07/09/25 History transdermal patch polyethylene glycol 3350 17 17 g PO DAILY 02/06/25 07/09/25 History gram/dose oral powder (Miralax) pregabalin 200 mg capsule (Lyrica) 200 mg PO BID 02/06/25 07/09/25 History sennosides 8.6 mg-docusate sodium 1 tab-cap PO BID 02/06/25 07/09/25 History 50 mg tablet (Stimulant Laxative Plus) albuterol sulfate 2.5 mg/3 mL 2.5 mg continuous nebulization Q8H 07/09/25 07/09/25 History (0.083 %) solution for nebulization PRN shortness of breath or wheezing amitriptyline 25 mg tablet 25 mg PO HS 07/09/25 07/09/25 History buspirone 10 mg capsule (Bucapsol) 10 mg PO DAILY 07/09/25 07/09/25 History carvedilol 25 mg tablet 25 mg PO Q12H 07/09/25 07/09/25 History cyclosporine 0.05 % eye drops in a 1 drp EACH EYE Q12H 07/09/25 07/09/25 History dropperette dabigatran etexilate 150 mg capsule 150 mg PO BID 07/09/25 07/09/25 History dapagliflozin propanediol 5 mg 5 mg PO DAILY 07/09/25 07/09/25 History tablet (Farxiga) diclofenac sodium 1 % topical gel 2 g topical BID 07/09/25 07/09/25 History duloxetine 60 mg capsule,delayed 30 mg PO DAILY 07/09/25 07/09/25 History release fluticasone 250 mcg-salmeterol 50 1 inh inhalation Q12H 07/09/25 07/09/25 History mcg/dose blistr powdr for inhalation (Advair Diskus) furosemide 40 mg tablet (Lasix) 40 mg PO Q12H 07/09/25 07/09/25 History meloxicam 15 mg tablet 15 mg PO HS 07/09/25 07/09/25 History methocarbamol 750 mg tablet 750 mg PO Q6H PRN postilaminectomy 07/09/25 07/09/25 History omeprazole 20 mg capsule,delayed 20 mg PO DAILY 07/09/25 07/09/25 History release umeclidinium 62.5 mcg/actuation 1 inh inhalation DAILY 07/09/25 07/09/25 History blister powder for inhalation (Incruse Ellipta) Laboratory Tests 07/09/25 07/09/25 07/09/25 15:31 15:44 20:49 WBC 4.8 K/mm3 (4.5-10.0) RBC 1.68 L M/mm3 (4.6-6.20) Hgb 3.8 L* D g/dL (14.0-18.0) Hct 13.9 L* % (42.0-52.0) MCV 82.7 fl (80-100) MCH 22.6 L pg (26-34) MCHC 27.3 L g/dl (32-36) RDW 18.5 H % (11.5-14.5) Plt Count 133 L k/mm3 (150-375) MPV 11.7 H fl (7.4-10.4) Immature Gran % (Auto) 0.6 H % (0-0.5) Neut % (Auto) 71.4 % (45.5-73.1) Lymph % (Auto) 14.6 L % (18.3-44.2) [place] % (Auto) 11.7 H % (2.6-8.5) Eos % (Auto) 1.3 % (0-4.4) Baso % (Auto) 0.4 % (0.2-1.2) Lymph # (Auto) 0.70 L K/mm3 (0.9-3.2) [place] # (Auto) 0.6 K/mm3 (0.1-0.6) Eos # (Auto) 0.1 K/mm3 (0-0.3) Baso # (Auto) 0.0 K/mm3 (0.0-0.1) Abs Immat Gran (auto) 0.03 K/mm3 (0.00-0.031) Absolute Neuts (auto) 3.4 K/mm3 (1.3-6.7) Absolute Nucleated RBC 0.000 K/mm3 (0.0-0.012) Band Neutrophils % 0 % (0-6) Nucleated RBC % 0.0 % (0.0-0.2) Platelet Estimate Slightly decreased (Adequate) Hypochromasia 2+ Anisocytosis 2+ Schistocytes Occasional PT 25.7 H Seconds (11.1-14.7) INR 2.5 APTT 80.0 H Seconds (22.3-36.8) Sodium 136 L mmol/L (137-145) Potassium 4.0 mmol/L (3.4-5.0) Chloride 101 mmol/L (98-107) Carbon Dioxide 29 mmol/L (22-30) Anion Gap 6 mmol/L (4-12) BUN 31 H D mg/dL (9-20) Creatinine 1.25 mg/dL (0.7-1.3) Estim Creat Clear Calc Not Reportable Estimated GFR 57 L (59 - ) Glucose 129 H mg/dL (65-110) POC Capillary Glucose 108 H mg/dl (65-105) Calcium 8.0 L mg/dL (8.4-10.2) Iron 19 L ug/dL (49-181) TIBC 385 ug/dL (265-497) % Saturation 5 L % (20-50) Total Bilirubin 0.3 mg/dL (0.2-1.3) AST 23 U/L (17-59) ALT 13 U/L (6-50) Alkaline Phosphatase 101 U/L (38-126) Total Protein 5.8 L g/dL (6.3-8.2) Albumin 3.3 L g/dL (3.5-5.1) Urine Color Yellow (Yellow) Urine Appearance Clear (Clear) Urine pH 7.0 (5.0-9.0) Ur Specific [place] 1.012 (1.001-1.035) Urine Protein Negative mg/dL (Negative) Urine Glucose (UA) 3+ H mg/dL (Negative) Urine Ketones Negative mg/dL (Negative) Ur Blood (Man) Negative (Negative) Urine Nitrate Negative (Negative) Urine Bilirubin Negative (Negative) Urine Urobilinogen 1.0 mg/dL (<2.0) Leukocyte Esterase Rfl Negative PAT/UL (Negative) Blood Type O Positive Antibody Screen Negative Crossmatch See Detail 07/09/25 07/10/25 07/10/25 21:20 03:38 07:15 WBC 6.1 K/mm3 (4.5-10.0) RBC 2.73 L M/mm3 (4.6-6.20) Hgb 7.1 L D g/dL 7.0 L g/dL (14.0-18.0) (14.0-18.0) Hct 23.8 L % 22.9 L % (42.0-52.0) (42.0-52.0) MCV 83.9 fl (80-100) MCH 25.6 L D pg (26-34) MCHC 30.6 L g/dl (32-36) RDW 17.2 H % (11.5-14.5) Plt Count 157 k/mm3 (150-375) MPV 11.9 H fl (7.4-10.4) Immature Gran % (Auto) 0.3 % (0-0.5) Neut % (Auto) 77.9 H % (45.5-73.1) Lymph % (Auto) 10.2 L % (18.3-44.2) [place] % (Auto) 10.1 H % (2.6-8.5) Eos % (Auto) 1.2 % (0-4.4) Baso % (Auto) 0.3 % (0.2-1.2) Lymph # (Auto) 0.62 L K/mm3 (0.9-3.2) [place] # (Auto) 0.6 K/mm3 (0.1-0.6) Eos # (Auto) 0.1 K/mm3 (0-0.3) Baso # (Auto) 0.0 K/mm3 (0.0-0.1) Abs Immat Gran (auto) 0.02 K/mm3 (0.00-0.031) Absolute Neuts (auto) 4.7 K/mm3 (1.3-6.7) Absolute Nucleated RBC 0.000 K/mm3 (0.0-0.012) Band Neutrophils % Nucleated RBC % 0.0 % (0.0-0.2) Platelet Estimate Hypochromasia Anisocytosis Schistocytes PT 21.0 H Seconds (11.1-14.7) INR 1.9 APTT 66.7 H Seconds (22.3-36.8) Sodium 135 L mmol/L (137-145) Potassium 3.7 mmol/L (3.4-5.0) Chloride 99 mmol/L (98-107) Carbon Dioxide 32 H mmol/L (22-30) Anion Gap 4 mmol/L (4-12) BUN 31 H mg/dL (9-20) Creatinine 1.31 H mg/dL (0.7-1.3) Estim Creat Clear Calc 47 ml/min Estimated GFR 54 L (59 - ) Glucose 158 H mg/dL (65-110) POC Capillary Glucose 132 H mg/dl (65-105) Calcium 8.4 mg/dL (8.4-10.2) Iron TIBC % Saturation Total Bilirubin 0.9 mg/dL (0.2-1.3) AST 23 U/L (17-59) ALT 13 U/L (6-50) Alkaline Phosphatase 121 U/L (38-126) Total Protein 6.0 L g/dL (6.3-8.2) Albumin 3.5 g/dL (3.5-5.1) Urine Color Urine Appearance Urine pH Ur Specific [place] Urine Protein Urine Glucose (UA) Urine Ketones Ur Blood (Man) Urine Nitrate Urine Bilirubin Urine Urobilinogen Leukocyte Esterase Rfl Blood Type Antibody Screen Crossmatch 07/10/25 07/10/25 08:34 11:17 WBC RBC Hgb 6.9 L* g/dL (14.0-18.0) Hct 22.3 L % (42.0-52.0) MCV MCH MCHC RDW Plt Count MPV Immature Gran % (Auto) Neut % (Auto) Lymph % (Auto) [place] % (Auto) Eos % (Auto) Baso % (Auto) Lymph # (Auto) [place] # (Auto) Eos # (Auto) Baso # (Auto) Abs Immat Gran (auto) Absolute Neuts (auto) Absolute Nucleated RBC Band Neutrophils % Nucleated RBC % Platelet Estimate Hypochromasia Anisocytosis Schistocytes PT INR APTT Sodium Potassium Chloride Carbon Dioxide Anion Gap BUN Creatinine Estim Creat Clear Calc Estimated GFR Glucose POC Capillary Glucose 133 H mg/dl (65-105) Calcium Iron TIBC % Saturation Total Bilirubin AST ALT Alkaline Phosphatase Total Protein Albumin Urine Color Urine Appearance Urine pH Ur Specific [place] Urine Protein Urine Glucose (UA) Urine Ketones Ur Blood (Man) Urine Nitrate Urine Bilirubin Urine Urobilinogen Leukocyte Esterase Rfl Blood Type Antibody Screen Crossmatch Patient hx anesthesia problems: none Family hx anesthesia problems: none Results Review: All pre-operative results and documents have been reviewed as part of the pre-operative evaluation. 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 Acute on chronic anemia CVA, old, monoplegia upper limb HTN (hypertension) Atrial fibrillation COPD (chronic obstructive pulmonary disease) Diabetes Surgical History Surgical History History of laminectomy Family History Family History Other Unknown family medical history Social History Social History Smoking packs per day: 0.25 Smoking cigarettes per day: 5.0 Years smoked: 55 Smoking pack-years: 13.75 Smoking status: Current every day smoker Tobacco type: cigarettes Second hand tobacco smoke exposure: Yes Alcohol intake: never Substance use: never Do You Feel Safe in your Home?: Yes Lack of Transportation: No Lack of Food: Never True Current Housing: I Have Housing Concerned About Future Housing: No Difficulty Paying Gas/Electric Bills: No Difficulty Paying for Meds: No Currently Unemployed: No Education: Trade/Vocational Certificate Difficulty w/ Childcare or Family Care: No Spiritual care concerns: No Anes - Eval Final PreProcedure Day of Procedure 07/10/25 12:20 Patient weight: normal Heart: regular rate and rhythm Lungs: normal air movement Airway: Mallampati scale class III Neurological: lethargic Last oral intake: >/= 8 hours ASA classification: IV Emergent: no Anesthetic plan: proceed Anesthesia type and monitoring: general GIVS and standard monitoring Results Review: All pre-operative results and documents have been reviewed as part of the pre-operative evaluation. Informed Consent: The patient's anesthetic plan and its attendant risks and benefits were discussed with the patient/family/POA. Questions were solicited and answers provided to the satisfaction of the patient/family/POA.
--- NOTE | 2025-07-10 12:21 | WPDGICN ---
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: Code(s): Z79.01 - keno terminal operator (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) use of anticoagulants Status: Acute Assessment and Plan: pradaxa on hold inr is improved (4) CVA, old, monoplegia upper limb: Status: Acute Assessment and Plan: he is confused (5) Atrial fibrillation: Qualifiers: Atrial fibrillation type: paroxysmal Qualified Code(s): I48.0 - Paroxysmal atrial fibrillation Code(s): I48.91 - Unspecified atrial fibrillation Status: Chronic GI Consult Note Consult date/time: 07/10/25 12:21 Reason for consult: acute anemia, use of blood thinner HPI: Maksim Scanlon is a 69 year old male with history of atrial fibrillation on pradaxa, CVA, anemia, COPD, hypertension, and diabetes came to hospital with abnormal hemoglobin. He came from [facility] via EMS on 07/09 for further evaluation of low hemoglobin, he is poor historian and unable to get history from him, used records. Staff noted more confusion than usual which prompted repeat labs with low hemoglobin of 4.0. Report of dizziness, fatigue and dark tarry stools. Last hospitalized here in January of 2025 and was found to be anemic with a hemoglobin of 5.4 for which he was transfused and underwent a upper and lower scope which was significant for internal hemorrhoids and diverticulosis without perforation/abscess/bleeding, egd no signs of bleeding. ED workup showed: No leukocytosis, hemoglobin 3.8, MCV normal, platelet count 133, INR 2.5, no significant electrolyte derangements, creatinine 1.25, glucose 129, iron 19, TIBC 385,% saturation 5%. CXR showed mild CHF. CT of the abdomen/pelvis showed no acute abnormality, ventral wall hernia containing small bowel loops without obstruction, fat containing left inguinal hernia. He knows he is in the hospital and year but does not know why he is here. Review of Systems Constitutional: Constitutional: Reports lethargy and Reports weakness Eyes: Eyes: Reports no additional eye complaints ENT: Reports Normal hearing present Cardiovascular: Cardiovascular: Reports lightheadedness Respiratory: Respiratory: Denies cough Gastrointestinal: Gastrointestinal: Reports melena Genitourinary: Genitourinary: Denies dysuria Musculoskeletal: Musculoskeletal: Denies neck pain Integumentary/Breasts: Skin/Breast: Denies skin pain Neurologic: Reports confusion Psychiatric: Psychiatric: Reports confusion [facility] Past Medical History Medical History Anxiety Osteoporosis PATTIE (iron deficiency anemia) PVD (peripheral vascular disease) HLD (hyperlipidemia) 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 Acute on chronic anemia CVA, old, monoplegia upper limb HTN (hypertension) Atrial fibrillation COPD (chronic obstructive pulmonary disease) Diabetes Surgical History Surgical History History of laminectomy Family History Family History Other Unknown family medical history Social History Social History Smoking packs per day: 0.25 Smoking cigarettes per day: 5.0 Years smoked: 55 Smoking pack-years: 13.75 Smoking status: Current every day smoker Tobacco type: cigarettes Second hand tobacco smoke exposure: Yes Alcohol intake: never Substance use: never Do You Feel Safe in your Home?: Yes Lack of Transportation: No Lack of Food: Never True Current Housing: I Have Housing Concerned About Future Housing: No Difficulty Paying Gas/Electric Bills: No Difficulty Paying for Meds: No Currently Unemployed: No Education: Trade/Vocational Certificate Difficulty w/ Childcare or Family Care: No Spiritual care concerns: No Meds Home Medications and Allergies Home Medications ?Medication ?Instructions ?Recorded ?Confirmed ?Type albuterol sulfate 90 mcg/actuation 2 puff inhalation Q6H PRN 02/05/25 07/09/25 History aerosol inhaler shortness of breath or wheezing amlodipine 5 mg tablet 5 mg PO DAILY 02/05/25 07/09/25 History atorvastatin 80 mg tablet 80 mg PO HS 02/05/25 07/09/25 History insulin glargine 100 unit/mL (3 15 unit subcut HS 02/05/25 07/09/25 History mL) subcutaneous pen (Lantus Solostar U-100 Insulin) insulin lispro 100 unit/mL 6 unit subcut .before meals 02/05/25 07/09/25 History subcutaneous pen lactulose 10 gram/15 mL oral 30 ml PO DAILY 02/05/25 07/09/25 History solution losartan 100 mg tablet 100 mg PO DAILY 02/05/25 07/09/25 History oxycodone 5 mg tablet 5 mg PO Q8H PRN pain 02/05/25 07/09/25 History acetaminophen 325 mg capsule 650 mg PO Q6H PRN fever or pain 02/06/25 07/09/25 History carboxymethylcellulose sodium 0.5 1 drp EACH EYE Q4H 02/06/25 07/09/25 History % eye drops in a dropperette nicotine 14 mg/24 hr daily 1 patch transdermal DAILY 02/06/25 07/09/25 History transdermal patch polyethylene glycol 3350 17 17 g PO DAILY 02/06/25 07/09/25 History gram/dose oral powder (Miralax) pregabalin 200 mg capsule (Lyrica) 200 mg PO BID 02/06/25 07/09/25 History sennosides 8.6 mg-docusate sodium 1 tab-cap PO BID 02/06/25 07/09/25 History 50 mg tablet (Stimulant Laxative Plus) albuterol sulfate 2.5 mg/3 mL 2.5 mg continuous nebulization Q8H 07/09/25 07/09/25 History (0.083 %) solution for nebulization PRN shortness of breath or wheezing amitriptyline 25 mg tablet 25 mg PO HS 07/09/25 07/09/25 History buspirone 10 mg capsule (Bucapsol) 10 mg PO DAILY 07/09/25 07/09/25 History carvedilol 25 mg tablet 25 mg PO Q12H 07/09/25 07/09/25 History cyclosporine 0.05 % eye drops in a 1 drp EACH EYE Q12H 07/09/25 07/09/25 History dropperette dabigatran etexilate 150 mg capsule 150 mg PO BID 07/09/25 07/09/25 History dapagliflozin propanediol 5 mg 5 mg PO DAILY 07/09/25 07/09/25 History tablet (Farxiga) diclofenac sodium 1 % topical gel 2 g topical BID 07/09/25 07/09/25 History duloxetine 60 mg capsule,delayed 30 mg PO DAILY 07/09/25 07/09/25 History release fluticasone 250 mcg-salmeterol 50 1 inh inhalation Q12H 07/09/25 07/09/25 History mcg/dose blistr powdr for inhalation (Advair Diskus) furosemide 40 mg tablet (Lasix) 40 mg PO Q12H 07/09/25 07/09/25 History meloxicam 15 mg tablet 15 mg PO HS 07/09/25 07/09/25 History methocarbamol 750 mg tablet 750 mg PO Q6H PRN postilaminectomy 07/09/25 07/09/25 History omeprazole 20 mg capsule,delayed 20 mg PO DAILY 07/09/25 07/09/25 History release umeclidinium 62.5 mcg/actuation 1 inh inhalation DAILY 07/09/25 07/09/25 History blister powder for inhalation (Incruse Ellipta) Allergies Allergy/AdvReac Type Severity Reaction Status Date / Time metformin Allergy Unknown Verified 07/09/25 20:51 vancomycin Allergy Unknown Verified 07/09/25 20:51 Vital Signs Vital Signs - 24 hr 07/09/25 15:04 07/09/25 15:09 07/09/25 15:10 Temperature 98.2 F Pulse Rate 64 63 66 Respiratory Rate 19 18 Blood Pressure 106/63 106/63 Pulse Oximetry 96 Oxygen Delivery Room Air Fraction of Inspired Oxygen 07/09/25 15:15 07/09/25 15:16 07/09/25 15:30 Temperature Pulse Rate 65 65 71 Respiratory Rate 18 26 H 20 Blood Pressure 120/54 L Pulse Oximetry 93 Oxygen Delivery Fraction of Inspired Oxygen 07/09/25 15:31 07/09/25 15:45 07/09/25 15:46 Temperature Pulse Rate 65 67 72 Respiratory Rate 19 23 H 14 Blood Pressure 118/62 96/52 L Pulse Oximetry 95 95 Oxygen Delivery Fraction of Inspired Oxygen 07/09/25 16:00 07/09/25 16:01 07/09/25 16:15 Temperature Pulse Rate 69 77 68 Respiratory Rate 21 H 18 17 Blood Pressure 117/74 Pulse Oximetry 100 95 Oxygen Delivery Fraction of Inspired Oxygen 07/09/25 16:16 07/09/25 17:03 07/09/25 17:15 Temperature Pulse Rate 68 67 67 Respiratory Rate 19 16 15 Blood Pressure 110/69 Pulse Oximetry 95 99 100 Oxygen Delivery Fraction of Inspired Oxygen 07/09/25 17:16 07/09/25 17:17 07/09/25 17:23 Temperature 97.8 F Pulse Rate 68 67 67 Respiratory Rate 17 16 19 Blood Pressure 116/60 103/59 L 116/30 L Pulse Oximetry 99 99 99 Oxygen Delivery Fraction of Inspired Oxygen 07/09/25 17:30 07/09/25 18:35 07/09/25 18:54 Temperature 98.2 F 98.7 F Pulse Rate 67 73 78 Respiratory Rate 16 18 19 Blood Pressure 103/59 L 117/72 Pulse Oximetry 99 98 100 Oxygen Delivery Fraction of Inspired Oxygen 07/09/25 18:59 07/09/25 19:00 07/09/25 19:03 Temperature 98.7 F Pulse Rate 90 71 80 Respiratory Rate 22 H 29 H 21 H Blood Pressure 143/87 H Pulse Oximetry 100 100 100 Oxygen Delivery Fraction of Inspired Oxygen 07/09/25 19:03 07/09/25 19:13 07/09/25 19:17 Temperature 98.2 F Pulse Rate 77 99 71 Respiratory Rate 21 H 17 20 Blood Pressure 143/87 H 149/68 H 149/68 H Pulse Oximetry 100 100 99 Oxygen Delivery Fraction of Inspired Oxygen 07/09/25 19:18 07/09/25 19:51 07/09/25 20:13 Temperature 98.2 F Pulse Rate 75 74 98 Respiratory Rate 18 19 22 H Blood Pressure 150/62 H 150/62 H 112/79 Pulse Oximetry 100 100 98 Oxygen Delivery Fraction of Inspired Oxygen 07/09/25 20:26 07/09/25 22:00 07/09/25 22:13 Temperature Pulse Rate 81 74 Respiratory Rate Blood Pressure Pulse Oximetry 98 Oxygen Delivery Room Air Fraction of Inspired Oxygen 21 07/09/25 23:18 07/10/25 00:00 07/10/25 01:24 Temperature 99.3 F Pulse Rate 77 77 78 Respiratory Rate 20 20 Blood Pressure 136/95 H Pulse Oximetry 98 Oxygen Delivery Fraction of Inspired Oxygen 07/10/25 01:35 07/10/25 02:00 07/10/25 04:00 Temperature 99.0 F Pulse Rate 77 75 74 Respiratory Rate 20 18 Blood Pressure 130/52 L Pulse Oximetry 98 Oxygen Delivery Fraction of Inspired Oxygen 07/10/25 04:00 07/10/25 06:00 07/10/25 07:17 Temperature Pulse Rate 74 72 69 Respiratory Rate 20 Blood Pressure Pulse Oximetry Oxygen Delivery Fraction of Inspired Oxygen 07/10/25 07:23 07/10/25 07:43 07/10/25 08:00 Temperature 98.5 F Pulse Rate 69 68 71 Respiratory Rate 20 12 Blood Pressure 137/63 Pulse Oximetry 100 Oxygen Delivery Fraction of Inspired Oxygen 07/10/25 10:00 07/10/25 11:29 Temperature 98.4 F Pulse Rate 71 70 Respiratory Rate 20 Blood Pressure 140/68 Pulse Oximetry 99 Oxygen Delivery Room Air Fraction of Inspired Oxygen Exam Const: General: comfortable and no acute distress HENMT: Face/Nose/Sinus: Normal nares present Mouth: Yes moist mucous membranes Eyes: General: appearance normal, both eyes and all related structures Pupils: Equal, round and reactive pupils present Neck: Neck: supple Resp: Effort & Inspection: normal respiratory effort Cardio: Rate: regular rate Rhythm: regular rhythm GI: GI Palp: Yes Soft to palpation, No Tenderness to palpation present (GI) and No Guarding due to palpation present (GI) Auscultation: normal bowel sounds Skin: General skin exam: no rashes or lesions noted Neuro: Speech: normal speech Sensory Exam: normal sensation Other: he is awake and alert but confused Extrem: General: normal to inspection Psych: Affect: normal affect Results Labs 07/10/25 08:34 07/10/25 03:38 Labs: Short CBC 07/09/25 07/09/25 07/10/25 Range/Units 15:44 21:20 03:38 WBC 4.8 6.1 (4.5-10.0) K/mm3 Hgb 3.8 L* D 7.1 L D 7.0 L (14.0-18.0) g/dL Hct 13.9 L* 23.8 L 22.9 L (42.0-52.0) % Plt Count 133 L 157 (150-375) k/mm3 07/10/25 Range/Units 08:34 WBC (4.5-10.0) K/mm3 Hgb 6.9 L* (14.0-18.0) g/dL Hct 22.3 L (42.0-52.0) % Plt Count (150-375) k/mm3 BMP 07/09/25 07/10/25 15:44 03:38 Sodium 136 L 135 L Potassium 4.0 3.7 Chloride 101 99 Carbon Dioxide 29 32 H BUN 31 H D 31 H Creatinine 1.25 1.31 H Glucose 129 H 158 H Calcium 8.0 L 8.4 Liver Function 07/09/25 07/10/25 Range/Units 15:44 03:38 Total Bilirubin 0.3 0.9 (0.2-1.3) mg/dL AST 23 23 (17-59) U/L ALT 13 13 (6-50) U/L Alkaline Phosphatase 101 121 (38-126) U/L Albumin 3.3 L 3.5 (3.5-5.1) g/dL Urine 07/09/25 Range/Units 15:31 Urine Color Yellow (Yellow) Urine Appearance Clear (Clear) Urine pH 7.0 (5.0-9.0) Ur Specific [place] 1.012 (1.001-1.035) Urine Protein Negative (Negative) mg/dL Urine Glucose (UA) 3+ H (Negative) mg/dL
--- NOTE | 2025-07-10 13:18 | P.PNIM_ITS ---
Progress Note: A&P Assessment and Plan (1) Acute on chronic anemia: Code(s): D64.9 - Anemia, unspecified Status: Acute Assessment and Plan: Hgb 3.8 upon admission on 07/09. Reviewed previous lab work, baseline appears closer to 8-9. Has history of recent anemia in January of 2025. Upper and lower scope were completed. EGD was unremarkable. Colonoscopy significant for internal hemorrhoids without active bleeding. - Hx of PATTIE and internal hemorrhoids - iron studies completed in the ED and consistent with PATTIE. Will likely need Venofer infusion once hemoglobin is stabilized. - transfuse if <7, currently has 2u PRBC ordered. suspect patient will need additional units, recheck post 2u. pulmonary edema noted on CXR, will need to monitor closely. Lasix 20 mg IV x1 post 2nd transfusion, continue home PO Lasix (40 mg BID). - trend H&H - melenic stool on GUERRERO/Hemoccult positive on 07/09 in the ED - start PPI BID IV - monitor hemodynamic stability, BP currently 150/62 and no hypoxia noted upon review of vital signs (2) Melena: Code(s): K92.1 - Melena Status: Acute Assessment and Plan: Melenic stool on GUERRERO/Hemoccult-positive in the ED on 07/09. Reviewed previous EGD and colonoscopy from in January of 2025. Internal hemorrhoids noted on colonoscopy with no active bleeding. - GI consulted, made NPO midnight for possible scope tomorrow on 07/09 - transfusing - monitor hemoglobin - hold anticoagulation - Pradaxa, INR 2.5 (3) Atrial fibrillation: Qualifiers: Atrial fibrillation type: paroxysmal Qualified Code(s): I48.0 - Paroxysmal atrial fibrillation Code(s): I48.91 - Unspecified atrial fibrillation Status: Chronic Assessment and Plan: History of paroxysmal AFib. EKG completed in the ED on 07/09, personally reviewed. Showed NSR, rate 64. - continue home medications: Coreg b.i.d. - hold anticoagulation: Pradaxa, INR currently 2.5. Repeat PT/PTT/INR in a.m.. 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 Hold Lantus 15 units HS and lispro 6 units t.i.d. with meals as he will be NPO at midnight for scope tomorrow, resume post scope. - correct regimen ordered - low dose TIDWM - A1C 5.7% on 02/08/2025 (5) HTN (hypertension): Qualifiers: Hypertension type: primary hypertension Qualified Code(s): I10 - Essential (primary) hypertension Code(s): I10 - Essential (primary) hypertension Status: Chronic Assessment and Plan: - chronic, currently 150/62, stable. - continue home medications: Amlodipine 5 mg daily, Coreg 25 mg b.i.d., losartan 100 mg daily - monitor (6) COPD (chronic obstructive pulmonary disease): Qualifiers: COPD type: unspecified COPD Qualified Code(s): J44.9 - Chronic obstructive pulmonary disease, unspecified Code(s): J44.9 - Chronic obstructive pulmonary disease, unspecified Status: Chronic Assessment and Plan: Mild expiratory wheeze on exam and diminished throughout. Denies any increasing cough or sputum production, does not meet criteria for COPD exacerbation. Will schedule DuoNebs, no current indication for prednisone or antibiotic course. - DuoNebs jesus alberto - hold home albuterol. continue Advair and Incruse. - continue Plan patient with anemia, with dark tarry stool, patient on anticoagulation for A. FIb, will hold anticoagulation, patient with black tarry stool, and BUN is elevated suspect may upper GI bleed, patient is schedule for EGD, will follow the patient and further recommendation to follow, will monitor. Diet: Diabetic, NPO midnight GI Prophylaxis: PPI b.i.d. DVT Prophylaxis: SCDs IV fluids: None, transfusing blood Lines/Tubes: Peripheral IV Code Status: Full code Subjective Date/time seen: 07/10/25 13:18 Interval history: Abnormal Labs H&P-Narrative: 69 y/o M with PMH of atrial fibrillation on anticoagulation, CVA, anemia, COPD, hypertension, and diabetes presents here with abnormal hemoglobin. The patient presents here from [facility] via EMS on 07/09 for further evaluation of low hemoglobin. Per staff reported to EMS, the patient was more confused yesterday which prompted repeat labs and a urine sample. Labs resulted today and showing a hemoglobin of 4.0. The patient is reporting new onset dizziness this morning as well as fatigue. He is additionally reporting new dark tarry stools, believes this has been going on for few months. He has a history of atrial fibrillation on anticoagulation (Pradaxa). He does report a history of melena. Per chart review, last hospitalized here in January of 2025 and was found to be anemic with a hemoglobin of 5.4 for which he was transfused and underwent a upper and lower scope which was significant for internal hemorrhoids and diverticulosis without perforation/abscess/bleeding. He currently reports improvement in his symptoms and is A&O x4. Initial VS at presentation: 98.2? F, HR 64, R 19, 106/63, and 96% on RA. ED workup showed: No leukocytosis, hemoglobin 3.8, MCV within normal limits, MCHC 27.3, platelet count 133, INR 2.5, no significant electrolyte derangements, creatinine 1.25 and GFR 57, glucose 129, iron 19, TIBC 385,% saturation 5%, UA showed 3+ glucose otherwise unremarkable. CXR showed mild CHF. CT of the abdomen/pelvis showed no acute abnormality, ventral wall hernia containing small bowel loops without obstruction, fat containing left inguinal hernia. EKG showed sinus rhythm, rate 64, borderline right axis deviation. patient with anemia, with dark tarry stool, patient on anticoagulation for A. FIb, will hold anticoagulation, patient with black tarry stool, and BUN is elevated suspect may upper GI bleed, patient is schedule for EGD, will follow the patient and further recommendation to follow, will monitor. Review of Systems Review of Systems: All systems reviewed & are unremarkable except as noted in HPI and below Exam Narrative: Patient is comfortable, NAD HEENT: eyes are clear and none icteric LUNGS:CTA HEART: RR S1S2 ABD: BS+, Soft and nontender Lower extremities: no edema SKIN: nonjaundiced Neuro: grossly intact. Objective Data Vital Signs Vital Signs: Vital Signs - 24 hr 07/09/25 15:04 07/09/25 15:09 07/09/25 15:10 Temperature 36.8 C Pulse Rate 64 63 66 Respiratory Rate 19 18 Blood Pressure 106/63 106/63 Pulse Oximetry 96 Oxygen Delivery Room Air Fraction of Inspired Oxygen 07/09/25 15:15 07/09/25 15:16 07/09/25 15:30 Temperature Pulse Rate 65 65 71 Respiratory Rate 18 26 H 20 Blood Pressure 120/54 L Pulse Oximetry 93 Oxygen Delivery Fraction of Inspired Oxygen 07/09/25 15:31 07/09/25 15:45 07/09/25 15:46 Temperature Pulse Rate 65 67 72 Respiratory Rate 19 23 H 14 Blood Pressure 118/62 96/52 L Pulse Oximetry 95 95 Oxygen Delivery Fraction of Inspired Oxygen 07/09/25 16:00 07/09/25 16:01 07/09/25 16:15 Temperature Pulse Rate 69 77 68 Respiratory Rate 21 H 18 17 Blood Pressure 117/74 Pulse Oximetry 100 95 Oxygen Delivery Fraction of Inspired Oxygen 07/09/25 16:16 07/09/25 17:03 07/09/25 17:15 Temperature Pulse Rate 68 67 67 Respiratory Rate 19 16 15 Blood Pressure 110/69 Pulse Oximetry 95 99 100 Oxygen Delivery Fraction of Inspired Oxygen 07/09/25 17:16 07/09/25 17:17 07/09/25 17:23 Temperature 36.6 C Pulse Rate 68 67 67 Respiratory Rate 17 16 19 Blood Pressure 116/60 103/59 L 116/30 L Pulse Oximetry 99 99 99 Oxygen Delivery Fraction of Inspired Oxygen 07/09/25 17:30 07/09/25 18:35 07/09/25 18:54 Temperature 36.8 C 37.1 C Pulse Rate 67 73 78 Respiratory Rate 16 18 19 Blood Pressure 103/59 L 117/72 Pulse Oximetry 99 98 100 Oxygen Delivery Fraction of Inspired Oxygen 07/09/25 18:59 07/09/25 19:00 07/09/25 19:03 Temperature 37.1 C Pulse Rate 90 71 80 Respiratory Rate 22 H 29 H 21 H Blood Pressure 143/87 H Pulse Oximetry 100 100 100 Oxygen Delivery Fraction of Inspired Oxygen 07/09/25 19:03 07/09/25 19:13 07/09/25 19:17 Temperature 36.8 C Pulse Rate 77 99 71 Respiratory Rate 21 H 17 20 Blood Pressure 143/87 H 149/68 H 149/68 H Pulse Oximetry 100 100 99 Oxygen Delivery Fraction of Inspired Oxygen 07/09/25 19:18 07/09/25 19:51 07/09/25 20:13 Temperature 36.8 C Pulse Rate 75 74 98 Respiratory Rate 18 19 22 H Blood Pressure 150/62 H 150/62 H 112/79 Pulse Oximetry 100 100 98 Oxygen Delivery Fraction of Inspired Oxygen 07/09/25 20:26 07/09/25 22:00 07/09/25 22:13 Temperature Pulse Rate 81 74 Respiratory Rate Blood Pressure Pulse Oximetry 98 Oxygen Delivery Room Air Fraction of Inspired Oxygen 21 07/09/25 23:18 07/10/25 00:00 07/10/25 01:24 Temperature 37.4 C Pulse Rate 77 77 78 Respiratory Rate 20 20 Blood Pressure 136/95 H Pulse Oximetry 98 Oxygen Delivery Fraction of Inspired Oxygen 07/10/25 01:35 07/10/25 02:00 07/10/25 04:00 Temperature 37.2 C Pulse Rate 77 75 74 Respiratory Rate 20 18 Blood Pressure 130/52 L Pulse Oximetry 98 Oxygen Delivery Fraction of Inspired Oxygen 07/10/25 04:00 07/10/25 06:00 07/10/25 07:17 Temperature Pulse Rate 74 72 69 Respiratory Rate 20 Blood Pressure Pulse Oximetry Oxygen Delivery Fraction of Inspired Oxygen 07/10/25 07:23 07/10/25 07:43 07/10/25 08:00 Temperature 36.9 C Pulse Rate 69 68 71 Respiratory Rate 20 12 Blood Pressure 137/63 Pulse Oximetry 100 Oxygen Delivery Fraction of Inspired Oxygen 07/10/25 10:00 07/10/25 11:29 07/10/25 12:40 Temperature 36.9 C Pulse Rate 71 70 71 Respiratory Rate 20 30 H Blood Pressure 140/68 108/60 Pulse Oximetry 99 100 Oxygen Delivery Room Air Room Air Fraction of Inspired Oxygen 07/10/25 12:50 07/10/25 13:00 Temperature Pulse Rate 72 71 Respiratory Rate 29 H 30 H Blood Pressure 119/63 132/68 Pulse Oximetry 100 100 Oxygen Delivery Room Air Room Air Fraction of Inspired Oxygen Intake/Output Intake/Output: Intake & Output 07/07/25 07/08/25 07/09/25 07/10/25 23:59 23:59 23:59 23:59 Intake Total 700 350 Output Total 2200 Balance 700 -1850 Meds/Results Medications: Active Medications Generic Name Dose Route Start Last Admin Trade Name Freq PRN Reason Stop Dose Admin Acetaminophen 650 mg 07/09/25 21:35 Acetaminophen 325 Mg Tablet PO Q6H PRN fever or pain rated 1-3 Albuterol/Ipratropium 3 ml 07/10/25 02:00 07/10/25 07:16 Ipratropium 0.5 Mg/Albuterol Sulfate 2.5 Mg (Base) Ampul.Neb 3 Ml INHALATION 3 ml Q6HRT JESUS ALBERTO Administration Amitriptyline HCl 25 mg 07/09/25 21:45 07/09/25 22:13 Amitriptyline Hcl 25 Mg Tablet PO 25 mg HS JESUS ALBERTO Administration Amlodipine Besylate 5 mg 07/10/25 09:00 Amlodipine Besylate 5 Mg Tablet PO DAILY JESUS ALBERTO Artificial Tears 1 drop 07/09/25 22:00 07/10/25 10:09 Artificial Tears Ophth Soln 15 Ml Bottle EACH EYE Not Given Q4H JESUS ALBERTO Atorvastatin Calcium 80 mg 07/09/25 21:45 07/09/25 22:14 Atorvastatin 40 Mg Tablet PO 80 mg HS JESUS ALBERTO Administration Buspirone HCl 10 mg 07/10/25 09:00 Buspirone Hcl 10 Mg Tablet PO DAILY [facility] Carvedilol 25 mg 07/09/25 21:35 07/09/25 22:13 Carvedilol 25 Mg Tablet PO 25 mg Q12HR JESUS ALBERTO Administration Cyclosporine 1 drop 07/09/25 21:35 07/10/25 08:30 Cyclosporine 0.4 Ml Ophth Solution EACH EYE 1 drop Q12HR JESUS ALBERTO Administration Dextrose 12.5 gm 07/09/25 20:19 Dextrose 50% 25 Gm/50 Ml Syringe IV PUSH PRN PRN Hypoglycemia Protocol Diclofenac Sodium 0 applic 07/10/25 09:00 07/10/25 08:37 Diclofenac Sodium 1% 100 Gm Gel (*Bkc) TOPICAL Not Given BID JESUS ALBERTO Furosemide 40 mg 07/10/25 09:00 Furosemide 40 Mg Tablet PO Q12HR JESUS ALBERTO Glucagon 1 mg 07/09/25 20:19 Glucagon For Inj 1 Mg Vial IM PRN PRN Hypoglycemia Protocol Glucose 15 gm 07/09/25 20:19 Glucose Oral Gel 15 Gm Of Glucse In 37.5 Gm Tube PO PRN PRN Hypoglycemia Protocol Dextrose 1,000 mls @ 100 mls/hr 07/09/25 20:19 Dextrose 5% 1,000 Ml IVPB PRN PRN Hypoglycemia Protocol Lactated Ringer's 1,000 mls @ 150 mls/hr 07/10/25 11:30 07/10/25 11:32 Lr - Lactated Ringers Iv IV CONT 150 mls/hr .Q6H40M [facility] Administration Insulin Aspart 2 - 5 units 07/10/25 08:00 07/10/25 13:16 Insulin Aspart (*Bkc) 100 Units/Ml SUB-Q Not Given TIDWM [facility] Protocol Lactulose 20 gm 07/10/25 09:00 07/10/25 13:16 Lactulose 20 Gm/30 Ml Udc PO Not Given DAILY JESUS ALBERTO Losartan Potassium 100 mg 07/10/25 09:00 Losartan Potassium 100 Mg Tablet PO DAILY [facility] Methocarbamol 750 mg 07/09/25 21:35 Methocarbamol 750 Mg Tablet PO Q6H PRN postilaminectomy Nicotine 1 patch 07/09/25 21:50 07/10/25 08:31 Nicotine (*Pbkc) 14 Mg Patch TRANSDERM 1 patch DAILY JESUS ALBERTO Administration Oxycodone HCl 5 mg 07/09/25 21:35 Oxycodone Hcl (*Crx) 5 Mg Tab Ir PO Q8H PRN PAIN RATED 7-10 Pantoprazole Sodium 40 mg 07/10/25 21:00 Pantoprazole 40 Mg Tablet PO Q12HR [facility] Polyethylene Glycol 17 gm 07/10/25 09:00 07/10/25 13:16 Polyethylene Glycol 3350 17 Gm Powd.Pack PO Not Given DAILY [facility] Pregabalin 200 mg 07/09/25 21:50 07/09/25 22:14 Pregabalin (*Crx) 50 Mg Capsule PO 200 mg BID [facility] Administration Fluticasone/Salmeterol 2 puff 07/10/25 08:00 07/10/25 07:16 Fluticasone/Salmeterol 115-21 Mcg Inhaler 1 Puff INHALATION 2 puff Q12HRT [facility] Administration Senna/Docusate Sodium 1 tab 07/10/25 09:00 07/10/25 13:16 Senna/Docusate Sodium Tablet PO Not Given BID JESUS ALBERTO Umeclidinium [place] 1 puff 07/10/25 09:00 07/10/25 07:17 Umeclidinium [place] 62.5 Mcg Ellipta INHALATION 1 puff DAILY JESUS ALBERTO Administration Radiology Results: ITS Impressions Chest X-Ray 07/09/25 15:49 Impression: Mild CHF Abdomen/Pelvis CT 07/09/25 18:06 IMPRESSION: No acute abnormality is noted in the abdomen and pelvis. Ventral wall hernia containing small bowel loops. There is no bowel obstruction. Fat-containing left inguinal hernia. All CT scans at this facility are performed using low dose modulation techniques as appropriate to perform exam including the following: automated exposure control; use of iterative reconstruction technique; adjustment of the mA and/or kV according to patient size (this includes techniques or standardized protocols for targeted exams where dose is matched to indication/reason for exam). Labs Labs: Laboratory Results - last 24 hr 07/09/25 07/09/25 07/09/25 15:31 15:44 20:49 WBC 4.8 RBC 1.68 L Hgb 3.8 L* D Hct 13.9 L* MCV 82.7 MCH 22.6 L MCHC 27.3 L RDW 18.5 H Plt Count 133 L MPV 11.7 H Immature Gran % (Auto) 0.6 H Neut % (Auto) 71.4 Lymph % (Auto) 14.6 L [place] % (Auto) 11.7 H Eos % (Auto) 1.3 Baso % (Auto) 0.4 Lymph # (Auto) 0.70 L [place] # (Auto) 0.6 Eos # (Auto) 0.1 Baso # (Auto) 0.0 Abs Immat Gran (auto) 0.03 Absolute Neuts (auto) 3.4 Absolute Nucleated RBC 0.000 Band Neutrophils % 0 Nucleated RBC % 0.0 Platelet Estimate Slightly decreased Hypochromasia 2+ Anisocytosis 2+ Schistocytes Occasional PT 25.7 H INR 2.5 APTT 80.0 H Sodium 136 L Potassium 4.0 Chloride 101 Carbon Dioxide 29 Anion Gap 6 BUN 31 H D Creatinine 1.25 Estim Creat Clear Calc Not Reportable Estimated GFR 57 L Glucose 129 H POC Capillary Glucose 108 H Calcium 8.0 L Iron 19 L TIBC 385 % Saturation 5 L Total Bilirubin 0.3 AST 23 ALT 13 Alkaline Phosphatase 101 Total Protein 5.8 L Albumin 3.3 L Urine Color Yellow Urine Appearance Clear Urine pH 7.0 Ur Specific [place] 1.012 Urine Protein Negative Urine Glucose (UA) 3+ H Urine Ketones Negative Ur Blood (Man) Negative Urine Nitrate Negative Urine Bilirubin Negative Urine Urobilinogen 1.0 Leukocyte Esterase Rfl Negative Blood Type O Positive Antibody Screen Negative Crossmatch See Detail 07/09/25 07/10/25 07/10/25 21:20 03:38 07:15 WBC 6.1 RBC 2.73 L Hgb 7.1 L D 7.0 L Hct 23.8 L 22.9 L MCV 83.9 MCH 25.6 L D MCHC 30.6 L RDW 17.2 H Plt Count 157 MPV 11.9 H Immature Gran % (Auto) 0.3 Neut % (Auto) 77.9 H Lymph % (Auto) 10.2 L [place] % (Auto) 10.1 H Eos % (Auto) 1.2 Baso % (Auto) 0.3 Lymph # (Auto) 0.62 L [place] # (Auto) 0.6 Eos # (Auto) 0.1 Baso # (Auto) 0.0 Abs Immat Gran (auto) 0.02 Absolute Neuts (auto) 4.7 Absolute Nucleated RBC 0.000 Band Neutrophils % Nucleated RBC % 0.0 Platelet Estimate Hypochromasia Anisocytosis Schistocytes PT 21.0 H INR 1.9 APTT 66.7 H Sodium 135 L Potassium 3.7 Chloride 99 Carbon Dioxide 32 H Anion Gap 4 BUN 31 H Creatinine 1.31 H Estim Creat Clear Calc 47 Estimated GFR 54 L Glucose 158 H POC Capillary Glucose 132 H Calcium 8.4 Iron TIBC % Saturation Total Bilirubin 0.9 AST 23 ALT 13 Alkaline Phosphatase 121 Total Protein 6.0 L Albumin 3.5 Urine Color Urine Appearance Urine pH Ur Specific [place] Urine Protein Urine Glucose (UA) Urine Ketones Ur Blood (Man) Urine Nitrate Urine Bilirubin Urine Urobilinogen Leukocyte Esterase Rfl Blood Type Antibody Screen Crossmatch 07/10/25 07/10/25 07/10/25 08:34 11:17 12:48 WBC RBC Hgb 6.9 L* Hct 22.3 L MCV MCH MCHC RDW Plt Count MPV Immature Gran % (Auto) Neut % (Auto) Lymph % (Auto) Clarke % (Auto) Eos % (Auto) Baso % (Auto) Lymph # (Auto) Clarke # (Auto) Eos # (Auto) Baso # (Auto) Abs Immat Gran (auto) Absolute Neuts (auto) Absolute Nucleated RBC Band Neutrophils % Nucleated RBC % Platelet Estimate Hypochromasia Anisocytosis Schistocytes PT INR APTT Sodium Potassium Chloride Carbon Dioxide Anion Gap BUN Creatinine Estim Creat Clear Calc Estimated GFR Glucose POC Capillary Glucose 133 H 129 H Calcium Iron TIBC % Saturation Total Bilirubin AST ALT Alkaline Phosphatase Total Protein Albumin Urine Color Urine Appearance Urine pH Ur Specific [place] Urine Protein Urine Glucose (UA) Urine Ketones Ur Blood (Man) Urine Nitrate Urine Bilirubin Urine Urobilinogen Leukocyte Esterase Rfl Blood Type Antibody Screen Crossmatch Quality VTE Prophylaxis VTE prophylaxis: mechanical ordered
[2025-07-10] MEDS: PREGABALIN (*CRX) 50 MG CAPSULE 200 MG PO ×2 (13:28→16:28)
[2025-07-10] MEDS: LOSARTAN POTASSIUM 100 MG TABLET PO (13:31)
[2025-07-10 14:58] LABS: Hematocrit 23.3 % (42.0-52.0); Hemoglobin 7.0 g/dL (14.0-18.0)
--- NOTE | 2025-07-10 17:34 | WPDONCCN ---
Assessment and Plan Assessment and plan (1) Low hemoglobin: Code(s): D64.9 - Anemia, unspecified Status: Acute (2) Acute on chronic anemia: Code(s): D64.9 - Anemia, unspecified Status: Acute (3) Hx of group home use of blood thinners: Code(s): Z79.01 - long term care pharmacist (current) use of anticoagulants Status: Acute (4) GI bleed: Code(s): K92.2 - Gastrointestinal hemorrhage, unspecified Status: Acute (5) Anemia: Code(s): D64.9 - Anemia, unspecified Status: Acute Plan Transfuse. Once Hgb improved, will supplement with Venofer. Await GI evaluation Begin folic acid 1 mg po daily Draw labs including retic count, haptoglobin and Hgb electrophoresis. Further recommendations pending results. Thank you. HPI Data of Consult Date/Time: 07/10/25 17:34 Requesting Physician: Rachael Emmanuel MD Primary Care Provider: Eddy AlbrightMD Consult Narrative Narrative: Maksim Scanlon is a 69 year old male with history of atrial fibrillation on pradaxa, CVA, anemia, COPD, hypertension, and diabetes and who was admitted to the hospital for worsening anemia. He reports having recurrent anemia for which he was transfused. A rather recent GI evaluation revealed only hemorrhoids and diverticulosis. The patient reports having black stools for the past 5 months. He is scheduled for a repeat GI evaluation. HE also tells me that his brother at age 60 of sickle cell disease and that the brother was diagnosed too late. He has never been tested. Of note, patient on anticoagulation for atrial fibrillation. Labs: (07/09/25): WBC 4.8, Hgb 3.8, Hct 13.9, Plt 133 (07/10/25): WBC 6.1, Hgb 7.0, Hct 22.9, MCV 82.7, Plt 157, BUN 31, crea 1.31, total bili 0.9. CXR (07/09/25): Mild pulmonary venous congestion. No pneumothorax. Moderate cardiomegaly. Mediastinal and hilar contours are within normal limits. Bony thorax no acute abnormality. CT abd/pelvis (07/09/25): No acute abnormality is noted in the abdomen and pelvis. Ventral wall hernia containing small bowel loops. There is no bowel obstruction. Fat-containing left inguinal hernia. Review of Systems Respiratory: Comments: No SOB Gastrointestinal: Comments: Black stools for the past 5 months [facility] Past Medical History Medical History Anxiety Osteoporosis PATTIE (iron deficiency anemia) PVD (peripheral vascular disease) HLD (hyperlipidemia) Hx of group home use of blood thinners Acute on chronic anemia CVA, old, monoplegia upper limb HTN (hypertension) Atrial fibrillation COPD (chronic obstructive pulmonary disease) Diabetes Surgical History Surgical History History of laminectomy Family History Family History Other Unknown family medical history Social History Social History Smoking packs per day: 0.25 Smoking cigarettes per day: 5.0 Years smoked: 55 Smoking pack-years: 13.75 Smoking status: Current every day smoker Tobacco type: cigarettes Second hand tobacco smoke exposure: Yes Alcohol intake: never Substance use: never Do You Feel Safe in your Home?: Yes Lack of Transportation: No Lack of Food: Never True Current Housing: I Have Housing Concerned About Future Housing: No Difficulty Paying Gas/Electric Bills: No Difficulty Paying for Meds: No Currently Unemployed: No Education: Trade/Vocational Certificate Difficulty w/ Childcare or Family Care: No Spiritual care concerns: No Meds Home Medications and Allergies Home Medications ?Medication ?Instructions ?Recorded ?Confirmed ?Type albuterol sulfate 90 mcg/actuation 2 puff inhalation Q6H PRN 02/05/25 07/09/25 History aerosol inhaler shortness of breath or wheezing amlodipine 5 mg tablet 5 mg PO DAILY 02/05/25 07/09/25 History atorvastatin 80 mg tablet 80 mg PO HS 02/05/25 07/09/25 History insulin glargine 100 unit/mL (3 15 unit subcut HS 02/05/25 07/09/25 History mL) subcutaneous pen (Lantus Solostar U-100 Insulin) insulin lispro 100 unit/mL 6 unit subcut .before meals 02/05/25 07/09/25 History subcutaneous pen lactulose 10 gram/15 mL oral 30 ml PO DAILY 02/05/25 07/09/25 History solution losartan 100 mg tablet 100 mg PO DAILY 02/05/25 07/09/25 History oxycodone 5 mg tablet 5 mg PO Q8H PRN pain 02/05/25 07/09/25 History acetaminophen 325 mg capsule 650 mg PO Q6H PRN fever or pain 02/06/25 07/09/25 History carboxymethylcellulose sodium 0.5 1 drp EACH EYE Q4H 02/06/25 07/09/25 History % eye drops in a dropperette nicotine 14 mg/24 hr daily 1 patch transdermal DAILY 02/06/25 07/09/25 History transdermal patch polyethylene glycol 3350 17 17 g PO DAILY 02/06/25 07/09/25 History gram/dose oral powder (Miralax) pregabalin 200 mg capsule (Lyrica) 200 mg PO BID 02/06/25 07/09/25 History sennosides 8.6 mg-docusate sodium 1 tab-cap PO BID 02/06/25 07/09/25 History 50 mg tablet (Stimulant Laxative Plus) albuterol sulfate 2.5 mg/3 mL 2.5 mg continuous nebulization Q8H 07/09/25 07/09/25 History (0.083 %) solution for nebulization PRN shortness of breath or wheezing amitriptyline 25 mg tablet 25 mg PO HS 07/09/25 07/09/25 History buspirone 10 mg capsule (Bucapsol) 10 mg PO DAILY 07/09/25 07/09/25 History carvedilol 25 mg tablet 25 mg PO Q12H 07/09/25 07/09/25 History cyclosporine 0.05 % eye drops in a 1 drp EACH EYE Q12H 07/09/25 07/09/25 History dropperette dabigatran etexilate 150 mg capsule 150 mg PO BID 07/09/25 07/09/25 History dapagliflozin propanediol 5 mg 5 mg PO DAILY 07/09/25 07/09/25 History tablet (Farxiga) diclofenac sodium 1 % topical gel 2 g topical BID 07/09/25 07/09/25 History duloxetine 60 mg capsule,delayed 30 mg PO DAILY 07/09/25 07/09/25 History release fluticasone 250 mcg-salmeterol 50 1 inh inhalation Q12H 07/09/25 07/09/25 History mcg/dose blistr powdr for inhalation (Advair Diskus) furosemide 40 mg tablet (Lasix) 40 mg PO Q12H 07/09/25 07/09/25 History meloxicam 15 mg tablet 15 mg PO HS 07/09/25 07/09/25 History methocarbamol 750 mg tablet 750 mg PO Q6H PRN postilaminectomy 07/09/25 07/09/25 History omeprazole 20 mg capsule,delayed 20 mg PO DAILY 07/09/25 07/09/25 History release umeclidinium 62.5 mcg/actuation 1 inh inhalation DAILY 07/09/25 07/09/25 History blister powder for inhalation (Incruse Ellipta) Allergies Allergy/AdvReac Type Severity Reaction Status Date / Time metformin Allergy Unknown Verified 07/09/25 20:51 vancomycin Allergy Unknown Verified 07/09/25 20:51 Vital Signs Vital Signs - 24 hr 07/09/25 18:35 07/09/25 18:54 07/09/25 18:59 Temperature 37.1 C Pulse Rate 73 78 90 Respiratory Rate 18 19 22 H Blood Pressure 117/72 Pulse Oximetry 98 100 100 Oxygen Delivery Fraction of Inspired Oxygen 07/09/25 19:00 07/09/25 19:03 07/09/25 19:03 Temperature 37.1 C Pulse Rate 71 80 77 Respiratory Rate 29 H 21 H 21 H Blood Pressure 143/87 H 143/87 H Pulse Oximetry 100 100 100 Oxygen Delivery Fraction of Inspired Oxygen 07/09/25 19:13 07/09/25 19:17 07/09/25 19:18 Temperature 36.8 C 36.8 C Pulse Rate 99 71 75 Respiratory Rate 17 20 18 Blood Pressure 149/68 H 149/68 H 150/62 H Pulse Oximetry 100 99 100 Oxygen Delivery Fraction of Inspired Oxygen 07/09/25 19:51 07/09/25 20:13 07/09/25 20:26 Temperature Pulse Rate 74 98 Respiratory Rate 19 22 H Blood Pressure 150/62 H 112/79 Pulse Oximetry 100 98 98 Oxygen Delivery Room Air Fraction of Inspired Oxygen 21 07/09/25 22:00 07/09/25 22:13 07/09/25 23:18 Temperature 37.4 C Pulse Rate 81 74 77 Respiratory Rate 20 Blood Pressure 136/95 H Pulse Oximetry 98 Oxygen Delivery Fraction of Inspired Oxygen 07/10/25 00:00 07/10/25 01:24 07/10/25 01:35 Temperature Pulse Rate 77 78 77 Respiratory Rate 20 20 Blood Pressure Pulse Oximetry Oxygen Delivery Fraction of Inspired Oxygen 07/10/25 02:00 07/10/25 04:00 07/10/25 04:00 Temperature 37.2 C Pulse Rate 75 74 74 Respiratory Rate 18 Blood Pressure 130/52 L Pulse Oximetry 98 Oxygen Delivery Fraction of Inspired Oxygen 07/10/25 06:00 07/10/25 07:17 07/10/25 07:23 Temperature Pulse Rate 72 69 69 Respiratory Rate 20 20 Blood Pressure Pulse Oximetry Oxygen Delivery Fraction of Inspired Oxygen 07/10/25 07:43 07/10/25 08:00 07/10/25 10:00 Temperature 36.9 C Pulse Rate 68 71 71 Respiratory Rate 12 Blood Pressure 137/63 Pulse Oximetry 100 Oxygen Delivery Fraction of Inspired Oxygen 07/10/25 11:29 07/10/25 12:40 07/10/25 12:50 Temperature 36.9 C Pulse Rate 70 71 72 Respiratory Rate 20 30 H 29 H Blood Pressure 140/68 108/60 119/63 Pulse Oximetry 99 100 100 Oxygen Delivery Room Air Room Air Room Air Fraction of Inspired Oxygen 07/10/25 13:00 07/10/25 14:10 07/10/25 14:16 Temperature Pulse Rate 71 70 66 Respiratory Rate 30 H 20 20 Blood Pressure 132/68 Pulse Oximetry 100 Oxygen Delivery Room Air Fraction of Inspired Oxygen 07/10/25 14:19 07/10/25 15:54 Temperature 36.8 C 36.7 C Pulse Rate 66 71 Respiratory Rate 16 16 Blood Pressure 123/60 127/54 L Pulse Oximetry 100 99 Oxygen Delivery Fraction of Inspired Oxygen Exam Narrative: Well appearing male in no acute distress HENMT: Other: No oral lesions Eyes: Other: Anicteric sclerae Resp: Other: Bilateral air entry. Mild wheeze Cardio: Other: RRR GI: Other: Abdomen soft, NT. BS nl. Back/Spine/Pelvis: Other: No discomfort Skin: Other: No rashes Neuro: Other: Alert and oriented. Grossly nonfocal. Extrem: Other: No LE edema Psych: Other: Affect normal Results Labs 07/10/25 14:29 07/10/25 03:38 Labs: Short CBC 07/09/25 07/10/25 07/10/25 Range/Units 21:20 03:38 08:34 WBC 6.1 (4.5-10.0) K/mm3 Hgb 7.1 L D 7.0 L 6.9 L* (14.0-18.0) g/dL Hct 23.8 L 22.9 L 22.3 L (42.0-52.0) % Plt Count 157 (150-375) k/mm3 07/10/25 Range/Units 14:29 WBC (4.5-10.0) K/mm3 Hgb 7.0 L (14.0-18.0) g/dL Hct 23.3 L (42.0-52.0) % Plt Count (150-375) k/mm3 BMP 07/10/25 03:38 Sodium 135 L Potassium 3.7 Chloride 99 Carbon Dioxide 32 H BUN 31 H Creatinine 1.31 H Glucose 158 H Calcium 8.4 Liver Function 07/10/25 Range/Units 03:38 Total Bilirubin 0.9 (0.2-1.3) mg/dL AST 23 (17-59) U/L ALT 13 (6-50) U/L Alkaline Phosphatase 121 (38-126) U/L Albumin 3.5 (3.5-5.1) g/dL
[2025-07-10] MEDS: oxyCODONE HCL (*CRX) 5 MG TAB IR PO (17:51)
[2025-07-10] MEDS: FUROSEMIDE 40 MG TABLET PO (21:07)
[2025-07-10] MEDS: PANTOPRAZOLE 40 MG TABLET PO (21:07)
[2025-07-10] MEDS: AMITRIPTYLINE HCL 25 MG TABLET PO (21:07)
[2025-07-10] MEDS: ATORVASTATIN 40 MG TABLET 80 MG PO (21:07)
[2025-07-10] MEDS: INSULIN ASPART (*BKC) 100 UNITS/ML SUB-Q (21:53)
[2025-07-11] VITALS (24 sets, daily range): BP systolic 97–134; BP diastolic 52–69; PULSE 60–93; RESP 12–18; TEMP 36.3–36.8; O2SAT 93–100; BMI 26.0
[2025-07-11 00:02] LABS: Hematocrit 23.5 % (42.0-52.0); Immature Reticulocyte Fraction 32.7 % (3.0-15.9); Reticulocyte Hemoglobin Conten 16.3 pg (28.2-36.6); Reticulocytes Absolute 0.07 10^6/uL (0.02-0.10)
[2025-07-11 00:06] LABS: Hemoglobin 6.9 g/dL (14.0-18.0)
[2025-07-11] MEDS: IPRATROPIUM 0.5 MG/ALBUTEROL SULFATE 2.5 MG (BASE) AMPUL.NEB 3 ML INHALATION ×4 (02:32→20:27)
[2025-07-11] MEDS: SODIUM CHLORIDE 0.9% IV 250 ML 30 ML IV CONT (04:15)
[2025-07-11] MEDS: ARTIFICIAL TEARS OPHTH SOLN 15 ML BOTTLE 1 DROP EACH EYE ×5 (05:53→21:04)
[2025-07-11] MEDS: FLUTICASONE/SALMETEROL 115-21 MCG INHALER 1 PUFF 2 PUFF INHALATION ×2 (07:46→20:27)
[2025-07-11] MEDS: UMECLIDINIUM BROMIDE 62.5 MCG ELLIPTA 1 PUFF INHALATION (07:46)
[2025-07-11] MEDS: cycloSPORINE 0.4 ML OPHTH SOLUTION 1 DROP EACH EYE ×2 (08:17→21:00)
[2025-07-11] MEDS: NICOTINE (*PBKC) 14 MG PATCH 1 PATCH TRANSDERM (08:17)
[2025-07-11] MEDS: SENNA/DOCUSATE SODIUM TABLET 1 TAB PO ×2 (08:17→16:18)
[2025-07-11] MEDS: PANTOPRAZOLE 40 MG TABLET PO ×2 (08:17→21:00)
[2025-07-11] MEDS: LOSARTAN POTASSIUM 100 MG TABLET PO (08:18)
[2025-07-11] MEDS: oxyCODONE HCL (*CRX) 5 MG TAB IR PO ×2 (08:18→16:18)
[2025-07-11] MEDS: PREGABALIN (*CRX) 50 MG CAPSULE 200 MG PO ×2 (08:18→16:18)
[2025-07-11] MEDS: FOLIC ACID 1 MG TABLET PO (08:18)
[2025-07-11] MEDS: FUROSEMIDE 40 MG TABLET PO ×2 (08:18→20:59)
[2025-07-11] MEDS: INSULIN ASPART (*BKC) 100 UNITS/ML SUB-Q ×3 (08:19→17:25)
[2025-07-11] MEDS: LACTULOSE 20 GM/30 ML UDC PO (08:19)
[2025-07-11 09:21] LABS: Hematocrit 28.0 % (42.0-52.0); Hemoglobin 8.6 g/dL (14.0-18.0); Immature Granulocyte Percent A 0.3 % (0-0.5); Lymphocytes Absolute Auto 0.80 K/mm3 (0.9-3.2); Mean Corpuscular HGB Conc 30.7 g/dl (32-36); Mean Corpuscular Hemoglobin 26.6 pg (26-34); Mean Corpuscular Volume 86.7 fl (80-100); Nucleated Red Blood Cells Absolute Auto 0.020 K/mm3 (0.0-0.012); Nucleated Red Blood Cells Perc 0.3 % (0.0-0.2); Platelet Count Result 156 k/mm3 (150-375); Red Blood Count 3.23 M/mm3 (4.6-6.20); White Blood Count 6.6 K/mm3 (4.5-10.0)
[2025-07-11 09:43] LABS: Alanine Aminotransferase 15 U/L (6-50); Albumin Level 3.4 g/dL (3.5-5.1); Alkaline Phosphatase 121 U/L (38-126); Anion Gap 6 mmol/L (4-12); Aspartate Amino Transferase 21 U/L (17-59); Bilirubin,Total 0.7 mg/dL (0.2-1.3); Blood Urea Nitrogen 28 mg/dL (9-20); Calcium 8.2 mg/dL (8.4-10.2); Carbon Dioxide 31 mmol/L (22-30); Chloride 100 mmol/L (98-107); Estimated CRCL calculation 48 ml/min; Estimated Glomerular Filt Rate 55; Glucose 256 mg/dL (65-110); Magnesium 2.2 mg/dL (1.6-2.3); Potassium 4.6 mmol/L (3.4-5.0); Sodium 137 mmol/L (137-145); Total Protein 6.0 g/dL (6.3-8.2)
--- NOTE | 2025-07-11 12:38 | P.PNIM_ITS ---
Progress Note: A&P Assessment and Plan (1) Acute on chronic anemia: Code(s): D64.9 - Anemia, unspecified Status: Acute (2) Melena: Code(s): K92.1 - Melena Status: Acute (3) Atrial fibrillation: Qualifiers: Atrial fibrillation type: paroxysmal Qualified Code(s): I48.0 - Paroxysmal atrial fibrillation Code(s): I48.91 - Unspecified atrial fibrillation Status: Chronic (4) Diabetes: Qualifiers: Diabetes mellitus complication status: without complication Diabetes mellitus senior living insulin use: with intermission coordinator use Diabetes mellitus type: type 2 Qualified Code(s): E11.9 - Type 2 diabetes mellitus without complications; Z79.4 - 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 Code(s): E11.9 - Type 2 diabetes mellitus without complications Status: Chronic (5) HTN (hypertension): Qualifiers: Hypertension type: primary hypertension Qualified Code(s): I10 - Essential (primary) hypertension Code(s): I10 - Essential (primary) hypertension Status: Chronic (6) COPD (chronic obstructive pulmonary disease): Qualifiers: COPD type: unspecified COPD Qualified Code(s): J44.9 - Chronic obstructive pulmonary disease, unspecified Code(s): J44.9 - Chronic obstructive pulmonary disease, unspecified Status: Chronic Plan this is a 69-year-old male who presents Here from [facility] via EMS on 07/09 for further evaluation of low hemoglobin. Per staff reported to EMS patient was more confused yesterday which prompted repeat labs and urine sample. Labs resulted today showing hemoglobin of 4. Patient was reporting dizziness as well as fatigue. Additionally he also had new dark tarry stool ongoing for few months. He has history of atrial fibrillation and had been on Pradaxa. He was last hospitalized in January of 2025 once found to be anemic with a hemoglobin of 5.4 was transfused underwent upper and lower scope which was significant for internal hemorrhoids and diverticulosis. Initial vital sign at presentation: 98.2? F, HR 64, R 19, 106/63, and 96% on RA. ED workup showed: No leukocytosis, hemoglobin 3.8, MCV within normal limits, MCHC 27.3, platelet count 133, INR 2.5, no significant electrolyte derangements, creatinine 1.25 and GFR 57, glucose 129, iron 19, TIBC 385,% saturation 5%, UA showed 3+ glucose otherwise unremarkable. CXR showed mild CHF. CT of the abdomen/pelvis showed no acute abnormality, ventral wall hernia containing small bowel loops without obstruction, fat containing left inguinal hernia. EKG showed sinus rhythm, rate 64, borderline right axis deviation. Anticoagulation was held patient underwent transfusion GI was consulted underwent EGD 07/10/2020 showed esophageal ulcer without bleeding hiatal gastric erosions. Patient On PPI Small bowel capsule endoscopy to be planned as an outpatient basis this is remaining of the small bowel. Hematology oncology has been consulted. Treated with IV Venofer and folic acid. Atrial fibrillation on Pradaxa which is on hold History of CVA COPD Hypertension Type 2 diabetes on insulin Code Status: Full code Subjective Date/time seen: 07/11/25 12:38 Interval history: No overnight event no abdominal pain chest pain or shortness of breath. Labs reviewed. Review of Systems Review of Systems: All systems reviewed & are unremarkable except as noted in HPI and below Exam Narrative: Patient is comfortable, NAD HEENT: eyes are clear and none icteric LUNGS:CTA HEART: RR S1S2 ABD: BS+, Soft and nontender Lower extremities: no edema SKIN: nonjaundiced Neuro: grossly intact. Objective Data Vital Signs Vital Signs: Vital Signs - 24 hr 07/10/25 12:40 07/10/25 12:50 07/10/25 13:00 Temperature Pulse Rate 71 72 71 Respiratory Rate 30 H 29 H 30 H Blood Pressure 108/60 119/63 132/68 Pulse Oximetry 100 100 100 Oxygen Delivery Room Air Room Air Room Air Fraction of Inspired Oxygen 07/10/25 14:10 07/10/25 14:16 07/10/25 14:19 Temperature 98.2 F Pulse Rate 70 66 66 Respiratory Rate 20 20 16 Blood Pressure 123/60 Pulse Oximetry 100 Oxygen Delivery Fraction of Inspired Oxygen 07/10/25 15:54 07/10/25 16:00 07/10/25 20:00 Temperature 98.0 F Pulse Rate 71 100 Respiratory Rate 16 Blood Pressure 127/54 L Pulse Oximetry 99 Oxygen Delivery Room Air Fraction of Inspired Oxygen 07/10/25 20:00 07/10/25 20:27 07/10/25 20:27 Temperature Pulse Rate 82 75 Respiratory Rate 20 Blood Pressure Pulse Oximetry 94 Oxygen Delivery Room Air Fraction of Inspired Oxygen 21 07/10/25 20:33 07/10/25 20:36 07/10/25 21:07 Temperature 97.6 F Pulse Rate 76 74 74 Respiratory Rate 20 20 Blood Pressure 116/62 Pulse Oximetry 100 Oxygen Delivery Fraction of Inspired Oxygen 07/11/25 00:00 07/11/25 02:33 07/11/25 02:40 Temperature Pulse Rate 93 73 75 Respiratory Rate 18 18 Blood Pressure Pulse Oximetry Oxygen Delivery Fraction of Inspired Oxygen 07/11/25 04:00 07/11/25 04:12 07/11/25 04:30 Temperature 98.0 F 98.1 F Pulse Rate 82 71 70 Respiratory Rate 12 12 Blood Pressure 120/52 L 97/60 L Pulse Oximetry 97 98 Oxygen Delivery Fraction of Inspired Oxygen 07/11/25 05:30 07/11/25 06:30 07/11/25 07:20 Temperature 97.4 F L 97.4 F L 98.2 F Pulse Rate 68 73 69 Respiratory Rate 18 18 17 Blood Pressure 115/54 L 134/67 129/69 Pulse Oximetry 100 93 96 Oxygen Delivery Fraction of Inspired Oxygen 07/11/25 07:46 07/11/25 07:48 07/11/25 07:48 Temperature 98.2 F Pulse Rate 71 70 Respiratory Rate 17 16 Blood Pressure 134/67 Pulse Oximetry 100 95 Oxygen Delivery Room Air Fraction of Inspired Oxygen 21 07/11/25 07:57 07/11/25 08:16 07/11/25 08:18 Temperature Pulse Rate 69 69 Respiratory Rate 16 Blood Pressure Pulse Oximetry Oxygen Delivery Room Air Fraction of Inspired Oxygen Intake/Output Intake/Output: Intake & Output 07/08/25 07/09/25 07/10/25 07/11/25 23:59 23:59 23:59 23:59 Intake Total 612 799 0084 Output Total 6430 400 Balance 700 -8656 152 Meds/Results Medications: Active Medications Generic Name Dose Route Start Last Admin Trade Name Freq PRN Reason Stop Dose Admin Acetaminophen 650 mg 07/09/25 21:35 Acetaminophen 325 Mg Tablet PO Q6H PRN fever or pain rated 1-3 Albuterol/Ipratropium 3 ml 07/10/25 02:00 07/11/25 07:46 Ipratropium 0.5 Mg/Albuterol Sulfate 2.5 Mg (Base) Ampul.Neb 3 Ml INHALATION 3 ml Q6HRT LAKSHMI Administration Amitriptyline HCl 25 mg 07/09/25 21:45 07/10/25 21:07 Amitriptyline Hcl 25 Mg Tablet PO 25 mg HS LAKSHMI Administration Amlodipine Besylate 5 mg 07/10/25 09:00 07/11/25 08:18 Amlodipine Besylate 5 Mg Tablet PO 5 mg DAILY LAKSHMI Administration Artificial Tears 1 drop 07/09/25 22:00 07/11/25 11:06 Artificial Tears Ophth Soln 15 Ml Bottle EACH EYE 1 drop Q4H LAKSHMI Administration Atorvastatin Calcium 80 mg 07/09/25 21:45 07/10/25 21:07 Atorvastatin 40 Mg Tablet PO 80 mg HS LAKSHMI Administration Buspirone HCl 10 mg 07/10/25 09:00 07/11/25 08:18 Buspirone Hcl 10 Mg Tablet PO 10 mg DAILY LAKSHMI Administration Carvedilol 25 mg 07/09/25 21:35 07/11/25 08:18 Carvedilol 25 Mg Tablet PO 25 mg Q12HR LAKSHMI Administration Cyclosporine 1 drop 07/09/25 21:35 07/11/25 08:17 Cyclosporine 0.4 Ml Ophth Solution EACH EYE 1 drop Q12HR LAKSHMI Administration Dextrose 12.5 gm 07/09/25 20:19 Dextrose 50% 25 Gm/50 Ml Syringe IV PUSH PRN PRN Hypoglycemia Protocol Diclofenac Sodium 0 applic 07/10/25 09:00 07/11/25 08:33 Diclofenac Sodium 1% 100 Gm Gel (*Bkc) TOPICAL Not Given BID [facility] Folic Acid 1 mg 07/11/25 09:00 07/11/25 08:18 Folic Acid 1 Mg Tablet PO 1 mg DAILY LAKSHMI Administration Furosemide 40 mg 07/10/25 09:00 07/11/25 08:18 Furosemide 40 Mg Tablet PO 40 mg Q12HR LAKSHMI Administration Glucagon 1 mg 07/09/25 20:19 Glucagon For Inj 1 Mg Vial IM PRN PRN Hypoglycemia Protocol Glucose 15 gm 07/09/25 20:19 Glucose Oral Gel 15 Gm Of Glucse In 37.5 Gm Tube PO PRN PRN Hypoglycemia Protocol Dextrose 1,000 mls @ 100 mls/hr 07/09/25 20:19 Dextrose 5% 1,000 Ml IVPB PRN PRN Hypoglycemia Protocol Insulin Aspart 2 - 5 units 07/10/25 08:00 07/11/25 12:14 Insulin Aspart (*Bkc) 100 Units/Ml SUB-Q 3 units TIDWM LAKSHMI Administration Protocol Lactulose 20 gm 07/10/25 09:00 07/11/25 08:19 Lactulose 20 Gm/30 Ml Udc PO 20 gm DAILY LAKSHMI Administration Losartan Potassium 100 mg 07/10/25 09:00 07/11/25 08:18 Losartan Potassium 100 Mg Tablet PO 100 mg DAILY LAKSHMI Administration Methocarbamol 750 mg 07/09/25 21:35 Methocarbamol 750 Mg Tablet PO Q6H PRN postilaminectomy Nicotine 1 patch 07/09/25 21:50 07/11/25 08:17 Nicotine (*Pbkc) 14 Mg Patch TRANSDERM 1 patch DAILY LAKSHMI Administration Oxycodone HCl 5 mg 07/09/25 21:35 07/11/25 08:18 Oxycodone Hcl (*Crx) 5 Mg Tab Ir PO 5 mg Q8H PRN Administration PAIN RATED 7-10 Pantoprazole Sodium 40 mg 07/10/25 21:00 07/11/25 08:17 Pantoprazole 40 Mg Tablet PO 40 mg Q12HR LAKSHMI Administration Polyethylene Glycol 17 gm 07/10/25 09:00 07/11/25 08:17 Polyethylene Glycol 3350 17 Gm Powd.Pack PO 17 gm DAILY LAKSHMI Administration Pregabalin 200 mg 07/09/25 21:50 07/11/25 08:18 Pregabalin (*Crx) 50 Mg Capsule PO 200 mg BID LAKSHMI Administration Fluticasone/Salmeterol 2 puff 07/10/25 08:00 07/11/25 07:46 Fluticasone/Salmeterol 115-21 Mcg Inhaler 1 Puff INHALATION 2 puff Q12HRT LAKSHMI Administration Senna/Docusate Sodium 1 tab 07/10/25 09:00 07/11/25 08:17 Senna/Docusate Sodium Tablet PO 1 tab BID LAKSHMI Administration Umeclidinium [place] 1 puff 07/10/25 09:00 07/11/25 07:46 Umeclidinium [place] 62.5 Mcg Ellipta INHALATION 1 puff DAILY LAKSHMI Administration Radiology Results: ITS Impressions Chest X-Ray 07/09/25 15:49 Impression: Mild CHF Abdomen/Pelvis CT 07/09/25 18:06 IMPRESSION: No acute abnormality is noted in the abdomen and pelvis. Ventral wall hernia containing small bowel loops. There is no bowel obstruction. Fat-containing left inguinal hernia. All CT scans at this facility are performed using low dose modulation techniques as appropriate to perform exam including the following: automated exposure control; use of iterative reconstruction technique; adjustment of the mA and/or kV according to patient size (this includes techniques or standardized protocols for targeted exams where dose is matched to indication/reason for exam). Labs Labs: Laboratory Results - last 24 hr 07/09/25 07/10/25 07/10/25 15:44 12:48 14:12 WBC RBC Hgb Hct MCV MCH MCHC RDW Plt Count MPV Immature Gran % (Auto) Neut % (Auto) Lymph % (Auto) [place] % (Auto) Eos % (Auto) Baso % (Auto) Lymph # (Auto) [place] # (Auto) Eos # (Auto) Baso # (Auto) Abs Immat Gran (auto) Absolute Neuts (auto) Absolute Nucleated RBC Nucleated RBC % Absolute Retic Percent Retic Immature Retic Fraction Retic Hgb Content Sodium Potassium Chloride Carbon Dioxide Anion Gap BUN Creatinine Estim Creat Clear Calc Estimated GFR Glucose POC Capillary Glucose 129 H 126 H Calcium Magnesium Total Bilirubin AST ALT Alkaline Phosphatase Total Protein Albumin Blood Type O Positive Antibody Screen Negative Crossmatch See Detail 07/10/25 07/10/25 07/10/25 14:29 15:36 16:27 WBC RBC Hgb 7.0 L Hct 23.3 L MCV MCH MCHC RDW Plt Count MPV Immature Gran % (Auto) Neut % (Auto) Lymph % (Auto) [place] % (Auto) Eos % (Auto) Baso % (Auto) Lymph # (Auto) [place] # (Auto) Eos # (Auto) Baso # (Auto) Abs Immat Gran (auto) Absolute Neuts (auto) Absolute Nucleated RBC Nucleated RBC % Absolute Retic Percent Retic Immature Retic Fraction Retic Hgb Content Sodium Potassium Chloride Carbon Dioxide Anion Gap BUN Creatinine Estim Creat Clear Calc Estimated GFR Glucose POC Capillary Glucose 165 H 192 H Calcium Magnesium Total Bilirubin AST ALT Alkaline Phosphatase Total Protein Albumin Blood Type Antibody Screen Crossmatch 07/10/25 07/10/25 07/11/25 20:30 20:43 07:28 WBC RBC Hgb 6.9 L* Hct 23.5 L MCV MCH MCHC RDW Plt Count MPV Immature Gran % (Auto) Neut % (Auto) Lymph % (Auto) [place] % (Auto) Eos % (Auto) Baso % (Auto) Lymph # (Auto) [place] # (Auto) Eos # (Auto) Baso # (Auto) Abs Immat Gran (auto) Absolute Neuts (auto) Absolute Nucleated RBC Nucleated RBC % Absolute Retic 0.07 Percent Retic 2.65 Immature Retic Fraction 32.7 H Retic Hgb Content 16.3 L Sodium Potassium Chloride Carbon Dioxide Anion Gap BUN Creatinine Estim Creat Clear Calc Estimated GFR Glucose POC Capillary Glucose 319 H 222 H Calcium Magnesium Total Bilirubin AST ALT Alkaline Phosphatase Total Protein Albumin Blood Type Antibody Screen Crossmatch 07/11/25 07/11/25 09:11 11:18 WBC 6.6 RBC 3.23 L Hgb 8.6 L Hct 28.0 L MCV 86.7 MCH 26.6 MCHC 30.7 L RDW 17.0 H Plt Count 156 MPV 12.6 H Immature Gran % (Auto) 0.3 Neut % (Auto) 73.6 H Lymph % (Auto) 12.1 L [place] % (Auto) 12.3 H Eos % (Auto) 1.2 Baso % (Auto) 0.5 Lymph # (Auto) 0.80 L [place] # (Auto) 0.8 H Eos # (Auto) 0.1 Baso # (Auto) 0.0 Abs Immat Gran (auto) 0.02 Absolute Neuts (auto) 4.9 Absolute Nucleated RBC 0.020 H Nucleated RBC % 0.3 H Absolute Retic Percent Retic Immature Retic Fraction Retic Hgb Content Sodium 137 Potassium 4.6 Chloride 100 Carbon Dioxide 31 H Anion Gap 6 BUN 28 H Creatinine 1.29 Estim Creat Clear Calc 48 Estimated GFR 55 L Glucose 256 H POC Capillary Glucose 294 H Calcium 8.2 L Magnesium 2.2 Total Bilirubin 0.7 AST 21 ALT 15 Alkaline Phosphatase 121 Total Protein 6.0 L Albumin 3.4 L Blood Type Antibody Screen Crossmatch
--- NOTE | 2025-07-11 13:15 | WPDONCPN ---
Progress Note: A&P Assessment and Plan (1) Acute on chronic anemia: Code(s): D64.9 - Anemia, unspecified Status: Acute Assessment and Plan: Continue folic acid 1 mg daily Venofer as an outpatient if needed Hgb electrophoresis and haptoglobin levels pending (2) Melena: Code(s): K92.1 - Melena Status: Acute Assessment and Plan: Small bowel f/u planned (3) Atrial fibrillation: Qualifiers: Atrial fibrillation type: paroxysmal Qualified Code(s): I48.0 - Paroxysmal atrial fibrillation Code(s): I48.91 - Unspecified atrial fibrillation Status: Chronic (4) Diabetes: Qualifiers: Diabetes mellitus type: type 2 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: with termite exterminator use Diabetes mellitus complication status: without complication Qualified Code(s): E11.9 - Type 2 diabetes mellitus without complications; Z79.4 - emt intermediate (current) use of insulin Code(s): E11.9 - Type 2 diabetes mellitus without complications Status: Chronic (5) HTN (hypertension): Qualifiers: Hypertension type: primary hypertension Qualified Code(s): I10 - Essential (primary) hypertension Code(s): I10 - Essential (primary) hypertension Status: Chronic (6) COPD (chronic obstructive pulmonary disease): Qualifiers: COPD type: unspecified COPD Qualified Code(s): J44.9 - Chronic obstructive pulmonary disease, unspecified Code(s): J44.9 - Chronic obstructive pulmonary disease, unspecified Status: Chronic Plan Anemia - Continue folic acid 1 mg daily - Venofer as an outpatient if needed - Hgb electrophoresis and haptoglobin levels pending Melena - Small bowel follow through scheduled If patient is discharged over the weekend, please schedule f/u with Dr. Lacey in 4 weeks. Thank you. Subjective Date/time seen: 07/11/25 13:15 Interval history: 69 year old male with history of atrial fibrillation on pradaxa, CVA, anemia, COPD, hypertension, and diabetes and who was admitted to the hospital for worsening anemia. Patient on anticoagulation for atrial fibrillation. He underwent EGD this morning although patient could not remember. He is having no complaints. Labs: (07/09/25): WBC 4.8, Hgb 3.8, Hct 13.9, Plt 133 (07/10/25): WBC 6.1, Hgb 7.0, Hct 22.9, MCV 82.7, Plt 157, BUN 31, crea 1.31, total bili 0.9. (07/11/25): WBC 6.6, Hgb 8.6, Hct 28.0, Plt 156 EGD (07/11/25): A single superficial benign ulcer measuring 4 mm was visualized in the esophageal cardia. The ulcer was clean-based without signs of bleeding (Dima III). No varices. A small hiatal hernia was found at the GE junction. The hiatal hernia appeared at a depth of 40 cm to 41 cm from the incisors. A few localized erosions were evident in the body of the stomach. The erosions were not bleeding. No ulcer. The bulb and second portion of duodenum was normal with no ulcers or masses. No AVM, no hematin, no signs of bleeding. Exam Const: Other: Well appearing male eating lunch Eyes: Other: Anicteric sclerae Resp: Other: Bilateral air entry Skin: Other: No rash Neuro: Other: Grossly nonfocal Objective Data Vital Signs Vital Signs: Vital Signs - 24 hr 07/10/25 14:10 07/10/25 14:16 07/10/25 14:19 Temperature 36.8 C Pulse Rate 70 66 66 Respiratory Rate 20 20 16 Blood Pressure 123/60 Pulse Oximetry 100 Oxygen Delivery Fraction of Inspired Oxygen 07/10/25 15:54 07/10/25 16:00 07/10/25 20:00 Temperature 36.7 C Pulse Rate 71 100 Respiratory Rate 16 Blood Pressure 127/54 L Pulse Oximetry 99 Oxygen Delivery Room Air Fraction of Inspired Oxygen 07/10/25 20:00 07/10/25 20:27 07/10/25 20:27 Temperature Pulse Rate 82 75 Respiratory Rate 20 Blood Pressure Pulse Oximetry 94 Oxygen Delivery Room Air Fraction of Inspired Oxygen 21 07/10/25 20:33 07/10/25 20:36 07/10/25 21:07 Temperature 36.4 C Pulse Rate 76 74 74 Respiratory Rate 20 20 Blood Pressure 116/62 Pulse Oximetry 100 Oxygen Delivery Fraction of Inspired Oxygen 07/11/25 00:00 07/11/25 02:33 07/11/25 02:40 Temperature Pulse Rate 93 73 75 Respiratory Rate 18 18 Blood Pressure Pulse Oximetry Oxygen Delivery Fraction of Inspired Oxygen 07/11/25 04:00 07/11/25 04:12 07/11/25 04:30 Temperature 36.7 C 36.7 C Pulse Rate 82 71 70 Respiratory Rate 12 12 Blood Pressure 120/52 L 97/60 L Pulse Oximetry 97 98 Oxygen Delivery Fraction of Inspired Oxygen 07/11/25 05:30 07/11/25 06:30 07/11/25 07:20 Temperature 36.3 C L 36.3 C L 36.8 C Pulse Rate 68 73 69 Respiratory Rate 18 18 17 Blood Pressure 115/54 L 134/67 129/69 Pulse Oximetry 100 93 96 Oxygen Delivery Fraction of Inspired Oxygen 07/11/25 07:46 07/11/25 07:48 07/11/25 07:48 Temperature 36.8 C Pulse Rate 71 70 Respiratory Rate 17 16 Blood Pressure 134/67 Pulse Oximetry 100 95 Oxygen Delivery Room Air Fraction of Inspired Oxygen 07/11/25 07:57 07/11/25 08:16 07/11/25 08:18 Temperature Pulse Rate 69 69 Respiratory Rate 16 Blood Pressure Pulse Oximetry Oxygen Delivery Room Air Fraction of Inspired Oxygen Intake/Output Intake/Output: Intake & Output 07/08/25 07/09/25 07/10/25 07/11/25 23:59 23:59 23:59 23:59 Intake Total 041 742 7220 Output Total 3350 400 Balance 700 -3172 880 Meds/Results Medications: Active Medications Generic Name Dose Route Start Last Admin Trade Name Freq PRN Reason Stop Dose Admin Acetaminophen 650 mg 07/09/25 21:35 Acetaminophen 325 Mg Tablet PO Q6H PRN fever or pain rated 1-3 Albuterol 2 puff 07/11/25 12:43 Albuterol Sulfate (*Sp) Aerosol 1 Puff INHALATION Q6HRT PRN Shortness Of Breath Or Wheezing Albuterol/Ipratropium 3 ml 07/10/25 02:00 07/11/25 07:46 Ipratropium 0.5 Mg/Albuterol Sulfate 2.5 Mg (Base) Ampul.Neb 3 Ml INHALATION 3 ml Q6HRT LAKSHMI Administration Amitriptyline HCl 25 mg 07/09/25 21:45 07/10/25 21:07 Amitriptyline Hcl 25 Mg Tablet PO 25 mg HS LAKSHMI Administration Amlodipine Besylate 5 mg 07/10/25 09:00 07/11/25 08:18 Amlodipine Besylate 5 Mg Tablet PO 5 mg DAILY LAKSHMI Administration Artificial Tears 1 drop 07/09/25 22:00 07/11/25 11:06 Artificial Tears Ophth Soln 15 Ml Bottle EACH EYE 1 drop Q4H LAKSHMI Administration Atorvastatin Calcium 80 mg 07/09/25 21:45 07/10/25 21:07 Atorvastatin 40 Mg Tablet PO 80 mg HS LAKSHMI Administration Buspirone HCl 10 mg 07/10/25 09:00 07/11/25 08:18 Buspirone Hcl 10 Mg Tablet PO 10 mg DAILY LAKSHMI Administration Carvedilol 25 mg 07/09/25 21:35 07/11/25 08:18 Carvedilol 25 Mg Tablet PO 25 mg Q12HR LAKSHMI Administration Cyclosporine 1 drop 07/09/25 21:35 07/11/25 08:17 Cyclosporine 0.4 Ml Ophth Solution EACH EYE 1 drop Q12HR LAKSHMI Administration Dextrose 12.5 gm 07/09/25 20:19 Dextrose 50% 25 Gm/50 Ml Syringe IV PUSH PRN PRN Hypoglycemia Protocol Diclofenac Sodium 0 applic 07/10/25 09:00 07/11/25 08:33 Diclofenac Sodium 1% 100 Gm Gel (*Bkc) TOPICAL Not Given BID [facility] Empagliflozin 10 mg 07/12/25 09:00 Empagliflozin 10 Mg Tablet BY MOUTH DAILY [facility] Folic Acid 1 mg 07/11/25 09:00 07/11/25 08:18 Folic Acid 1 Mg Tablet PO 1 mg DAILY LAKSHMI Administration Furosemide 40 mg 07/10/25 09:00 07/11/25 08:18 Furosemide 40 Mg Tablet PO 40 mg Q12HR LAKSHMI Administration Glucagon 1 mg 07/09/25 20:19 Glucagon For Inj 1 Mg Vial IM PRN PRN Hypoglycemia Protocol Glucose 15 gm 07/09/25 20:19 Glucose Oral Gel 15 Gm Of Glucse In 37.5 Gm Tube PO PRN PRN Hypoglycemia Protocol Dextrose 1,000 mls @ 100 mls/hr 07/09/25 20:19 Dextrose 5% 1,000 Ml IVPB PRN PRN Hypoglycemia Protocol Insulin Aspart 2 - 5 units 07/10/25 08:00 07/11/25 12:14 Insulin Aspart (*Bkc) 100 Units/Ml SUB-Q 3 units TIDWM LAKSHMI Administration Protocol Insulin Aspart 6 units 07/11/25 17:00 Insulin Aspart (*Bkc) 100 Units/Ml SUB-Q TIDWM LAKSHMI Insulin Glargine 15 units 07/11/25 21:00 Insulin Glargine (*Bkc) 100 Units/Ml SUB-Q HS LAKSHMI Lactulose 20 gm 07/10/25 09:00 07/11/25 08:19 Lactulose 20 Gm/30 Ml Udc PO 20 gm DAILY LAKSHMI Administration Losartan Potassium 100 mg 07/10/25 09:00 07/11/25 08:18 Losartan Potassium 100 Mg Tablet PO 100 mg DAILY LAKSHMI Administration Methocarbamol 750 mg 07/09/25 21:35 Methocarbamol 750 Mg Tablet PO Q6H PRN postilaminectomy Nicotine 1 patch 07/09/25 21:50 07/11/25 08:17 Nicotine (*Pbkc) 14 Mg Patch TRANSDERM 1 patch DAILY LAKSHMI Administration Oxycodone HCl 5 mg 07/09/25 21:35 07/11/25 08:18 Oxycodone Hcl (*Crx) 5 Mg Tab Ir PO 5 mg Q8H PRN Administration PAIN RATED 7-10 Pantoprazole Sodium 40 mg 07/10/25 21:00 07/11/25 08:17 Pantoprazole 40 Mg Tablet PO 40 mg Q12HR LAKSHMI Administration Polyethylene Glycol 17 gm 07/10/25 09:00 07/11/25 08:17 Polyethylene Glycol 3350 17 Gm Powd.Pack PO 17 gm DAILY LAKSHMI Administration Pregabalin 200 mg 07/09/25 21:50 07/11/25 08:18 Pregabalin (*Crx) 50 Mg Capsule PO 200 mg BID LAKSHMI Administration Fluticasone/Salmeterol 2 puff 07/10/25 08:00 07/11/25 07:46 Fluticasone/Salmeterol 115-21 Mcg Inhaler 1 Puff INHALATION 2 puff Q12HRT LAKSHMI Administration Senna/Docusate Sodium 1 tab 07/10/25 09:00 07/11/25 08:17 Senna/Docusate Sodium Tablet PO 1 tab BID LAKSHMI Administration Umeclidinium [place] 1 puff 07/10/25 09:00 07/11/25 07:46 Umeclidinium [place] 62.5 Mcg Ellipta INHALATION 1 puff DAILY LAKSHMI Administration Radiology Results: ITS Impressions Chest X-Ray 07/09/25 15:49 Impression: Mild CHF Abdomen/Pelvis CT 07/09/25 18:06 IMPRESSION: No acute abnormality is noted in the abdomen and pelvis. Ventral wall hernia containing small bowel loops. There is no bowel obstruction. Fat-containing left inguinal hernia. All CT scans at this facility are performed using low dose modulation techniques as appropriate to perform exam including the following: automated exposure control; use of iterative reconstruction technique; adjustment of the mA and/or kV according to patient size (this includes techniques or standardized protocols for targeted exams where dose is matched to indication/reason for exam). Labs Labs: Laboratory Results - last 24 hr 07/09/25 07/10/25 07/10/25 15:44 14:12 14:29 WBC RBC Hgb 7.0 L Hct 23.3 L MCV MCH MCHC RDW Plt Count MPV Immature Gran % (Auto) Neut % (Auto) Lymph % (Auto) [place] % (Auto) Eos % (Auto) Baso % (Auto) Lymph # (Auto) [place] # (Auto) Eos # (Auto) Baso # (Auto) Abs Immat Gran (auto) Absolute Neuts (auto) Absolute Nucleated RBC Nucleated RBC % Absolute Retic Percent Retic Immature Retic Fraction Retic Hgb Content Sodium Potassium Chloride Carbon Dioxide Anion Gap BUN Creatinine Estim Creat Clear Calc Estimated GFR Glucose POC Capillary Glucose 126 H Calcium Magnesium Total Bilirubin AST ALT Alkaline Phosphatase Total Protein Albumin Blood Type O Positive Antibody Screen Negative Crossmatch See Detail 07/10/25 07/10/25 07/10/25 15:36 16:27 20:30 WBC RBC Hgb 6.9 L* Hct 23.5 L MCV MCH MCHC RDW Plt Count MPV Immature Gran % (Auto) Neut % (Auto) Lymph % (Auto) [place] % (Auto) Eos % (Auto) Baso % (Auto) Lymph # (Auto) [place] # (Auto) Eos # (Auto) Baso # (Auto) Abs Immat Gran (auto) Absolute Neuts (auto) Absolute Nucleated RBC Nucleated RBC % Absolute Retic 0.07 Percent Retic 2.65 Immature Retic Fraction 32.7 H Retic Hgb Content 16.3 L Sodium Potassium Chloride Carbon Dioxide Anion Gap BUN Creatinine Estim Creat Clear Calc Estimated GFR Glucose POC Capillary Glucose 165 H 192 H Calcium Magnesium Total Bilirubin AST ALT Alkaline Phosphatase Total Protein Albumin Blood Type Antibody Screen Crossmatch 07/10/25 07/11/25 07/11/25 20:43 07:28 09:11 WBC 6.6 RBC 3.23 L Hgb 8.6 L Hct 28.0 L MCV 86.7 MCH 26.6 MCHC 30.7 L RDW 17.0 H Plt Count 156 MPV 12.6 H Immature Gran % (Auto) 0.3 Neut % (Auto) 73.6 H Lymph % (Auto) 12.1 L [place] % (Auto) 12.3 H Eos % (Auto) 1.2 Baso % (Auto) 0.5 Lymph # (Auto) 0.80 L [place] # (Auto) 0.8 H Eos # (Auto) 0.1 Baso # (Auto) 0.0 Abs Immat Gran (auto) 0.02 Absolute Neuts (auto) 4.9 Absolute Nucleated RBC 0.020 H Nucleated RBC % 0.3 H Absolute Retic Percent Retic Immature Retic Fraction Retic Hgb Content Sodium 137 Potassium 4.6 Chloride 100 Carbon Dioxide 31 H Anion Gap 6 BUN 28 H Creatinine 1.29 Estim Creat Clear Calc 48 Estimated GFR 55 L Glucose 256 H POC Capillary Glucose 319 H 222 H Calcium 8.2 L Magnesium 2.2 Total Bilirubin 0.7 AST 21 ALT 15 Alkaline Phosphatase 121 Total Protein 6.0 L Albumin 3.4 L Blood Type Antibody Screen Crossmatch 07/11/25 11:18 WBC RBC Hgb Hct MCV MCH MCHC RDW Plt Count MPV Immature Gran % (Auto) Neut % (Auto) Lymph % (Auto) [place] % (Auto) Eos % (Auto) Baso % (Auto) Lymph # (Auto) [place] # (Auto) Eos # (Auto) Baso # (Auto) Abs Immat Gran (auto) Absolute Neuts (auto) Absolute Nucleated RBC Nucleated RBC % Absolute Retic Percent Retic Immature Retic Fraction Retic Hgb Content Sodium Potassium Chloride Carbon Dioxide Anion Gap BUN Creatinine Estim Creat Clear Calc Estimated GFR Glucose POC Capillary Glucose 294 H Calcium Magnesium Total Bilirubin AST ALT Alkaline Phosphatase Total Protein Albumin Blood Type Antibody Screen Crossmatch
--- NOTE | 2025-07-11 16:02 | P.PNGI_ITS ---
Progress Note: A&P Assessment and Plan (1) Melena: Code(s): K92.1 - Melena Status: Acute Assessment and Plan: no more episodes blood thinner on hold noted small non bleeding esophageal ulcer- recommend to continue with ppi daily, stop using nsaid's (noted meloxicam as home med) will follow only as needed (2) Esophageal ulcer: Code(s): K22.10 - Ulcer of esophagus without bleeding Status: Acute Assessment and Plan: ppi daily (3) Hx of detention use of blood thinners: Code(s): Z79.01 - FDC (current) use of anticoagulants Status: Acute (4) GI bleed: Code(s): K92.2 - Gastrointestinal hemorrhage, unspecified Status: Acute Assessment and Plan: resolved (5) Acute on chronic anemia: Code(s): D64.9 - Anemia, unspecified Status: Acute Assessment and Plan: h/h 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 will complete work up of chronic anemia with outpatient small bowel capsule endoscopy (6) CVA, old, monoplegia upper limb: Status: Acute (7) NSAID long-term use: Code(s): Z79.1 - FDC (current) use of non-steroidal anti-inflammatories (NSAID) Status: Acute Assessment and Plan: discontinue meloxicam Subjective Date/time seen: 07/11/25 16:02 Interval history: no new changes, no gib egd yesterday with small non bleeding ulcer near GEJ and gastric erosions Review of Systems Review of Systems: All systems reviewed & are unremarkable except as noted in HPI and below Exam Const: General: comfortable and no acute distress HENMT: Face/Nose/Sinus: Normal nares present Eyes: General: appearance normal, both eyes and all related structures Neck: Neck: supple Resp: Effort & Inspection: normal respiratory effort Cardio: Rate: regular rate Rhythm: regular rhythm GI: GI Palp: Yes Soft to palpation, No Tenderness to palpation present (GI) and No Guarding due to palpation present (GI) Auscultation: normal bowel sounds Skin: General skin exam: no rashes or lesions noted Neuro: Speech: normal speech Other: left sided hemiparesis Extrem: General: normal to inspection Psych: Affect: normal affect Objective Data Vital Signs Vital Signs: Vital Signs - 24 hr 07/10/25 20:00 07/10/25 20:00 07/10/25 20:27 Temperature Pulse Rate 82 Respiratory Rate Blood Pressure Pulse Oximetry 94 Oxygen Delivery Room Air Room Air Fraction of Inspired Oxygen 21 07/10/25 20:27 07/10/25 20:33 07/10/25 20:36 Temperature 97.6 F Pulse Rate 75 76 74 Respiratory Rate 20 20 20 Blood Pressure 116/62 Pulse Oximetry 100 Oxygen Delivery Fraction of Inspired Oxygen 07/10/25 21:07 07/11/25 00:00 07/11/25 02:33 Temperature Pulse Rate 74 93 73 Respiratory Rate 18 Blood Pressure Pulse Oximetry Oxygen Delivery Fraction of Inspired Oxygen 07/11/25 02:40 07/11/25 04:00 07/11/25 04:12 Temperature 98.0 F Pulse Rate 75 82 71 Respiratory Rate 18 12 Blood Pressure 120/52 L Pulse Oximetry 97 Oxygen Delivery Fraction of Inspired Oxygen 07/11/25 04:30 07/11/25 05:30 07/11/25 06:30 Temperature 98.1 F 97.4 F L 97.4 F L Pulse Rate 70 68 73 Respiratory Rate 12 18 18 Blood Pressure 97/60 L 115/54 L 134/67 Pulse Oximetry 98 100 93 Oxygen Delivery Fraction of Inspired Oxygen 07/11/25 07:20 07/11/25 07:46 07/11/25 07:48 Temperature 98.2 F 98.2 F Pulse Rate 69 71 Respiratory Rate 17 17 Blood Pressure 129/69 134/67 Pulse Oximetry 96 100 95 Oxygen Delivery Room Air Fraction of Inspired Oxygen 07/11/25 07:48 07/11/25 07:57 07/11/25 08:05 Temperature Pulse Rate 70 69 75 Respiratory Rate 16 16 Blood Pressure Pulse Oximetry Oxygen Delivery Fraction of Inspired Oxygen 07/11/25 08:16 07/11/25 08:18 07/11/25 12:06 Temperature Pulse Rate 69 66 Respiratory Rate Blood Pressure Pulse Oximetry Oxygen Delivery Room Air Fraction of Inspired Oxygen 07/11/25 13:48 07/11/25 13:54 Temperature Pulse Rate 69 65 Respiratory Rate 16 16 Blood Pressure Pulse Oximetry Oxygen Delivery Fraction of Inspired Oxygen Intake/Output Intake/Output: Intake & Output 07/08/25 07/09/25 07/10/25 07/11/25 23:59 23:59 23:59 23:59 Intake Total 940 507 4991 Output Total 3350 400 Balance 700 -4411 880 Meds/Results Medications: Active Medications Generic Name Dose Route Start Last Admin Trade Name Freq PRN Reason Stop Dose Admin Acetaminophen 650 mg 07/09/25 21:35 Acetaminophen 325 Mg Tablet PO Q6H PRN fever or pain rated 1-3 Albuterol 2 puff 07/11/25 12:43 Albuterol Sulfate (*Sp) Aerosol 1 Puff INHALATION Q6HRT PRN Shortness Of Breath Or Wheezing Albuterol/Ipratropium 3 ml 07/10/25 02:00 07/11/25 13:35 Ipratropium 0.5 Mg/Albuterol Sulfate 2.5 Mg (Base) Ampul.Neb 3 Ml INHALATION 3 ml Q6HRT LAKSHMI Administration Amitriptyline HCl 25 mg 07/09/25 21:45 07/10/25 21:07 Amitriptyline Hcl 25 Mg Tablet PO 25 mg HS LAKSHMI Administration Amlodipine Besylate 5 mg 07/10/25 09:00 07/11/25 08:18 Amlodipine Besylate 5 Mg Tablet PO 5 mg DAILY LAKSHMI Administration Artificial Tears 1 drop 07/09/25 22:00 07/11/25 14:55 Artificial Tears Ophth Soln 15 Ml Bottle EACH EYE 1 drop Q4H LAKSHMI Administration Atorvastatin Calcium 80 mg 07/09/25 21:45 07/10/25 21:07 Atorvastatin 40 Mg Tablet PO 80 mg HS LAKSHMI Administration Buspirone HCl 10 mg 07/10/25 09:00 07/11/25 08:18 Buspirone Hcl 10 Mg Tablet PO 10 mg DAILY LAKSHMI Administration Carvedilol 25 mg 07/09/25 21:35 07/11/25 08:18 Carvedilol 25 Mg Tablet PO 25 mg Q12HR LAKSHMI Administration Cyclosporine 1 drop 07/09/25 21:35 07/11/25 08:17 Cyclosporine 0.4 Ml Ophth Solution EACH EYE 1 drop Q12HR LAKSHMI Administration Dextrose 12.5 gm 07/09/25 20:19 Dextrose 50% 25 Gm/50 Ml Syringe IV PUSH PRN PRN Hypoglycemia Protocol Diclofenac Sodium 1 applic 07/11/25 14:12 Diclofenac Sodium 1% 100 Gm Gel (*Bkc) TOPICAL BID PRN joint pain Empagliflozin 10 mg 07/12/25 09:00 Empagliflozin 10 Mg Tablet BY MOUTH DAILY LAKSHMI Folic Acid 1 mg 07/11/25 09:00 07/11/25 08:18 Folic Acid 1 Mg Tablet PO 1 mg DAILY LAKSHMI Administration Furosemide 40 mg 07/10/25 09:00 07/11/25 08:18 Furosemide 40 Mg Tablet PO 40 mg Q12HR LAKSHMI Administration Glucagon 1 mg 07/09/25 20:19 Glucagon For Inj 1 Mg Vial IM PRN PRN Hypoglycemia Protocol Glucose 15 gm 07/09/25 20:19 Glucose Oral Gel 15 Gm Of Glucse In 37.5 Gm Tube PO PRN PRN Hypoglycemia Protocol Dextrose 1,000 mls @ 100 mls/hr 07/09/25 20:19 Dextrose 5% 1,000 Ml IVPB PRN PRN Hypoglycemia Protocol Insulin Aspart 2 - 5 units 07/10/25 08:00 07/11/25 12:14 Insulin Aspart (*Bkc) 100 Units/Ml SUB-Q 3 units TIDWM LAKSHMI Administration Protocol Insulin Aspart 6 units 07/11/25 17:00 Insulin Aspart (*Bkc) 100 Units/Ml SUB-Q TIDWM LAKSHMI Insulin Glargine 15 units 07/11/25 21:00 Insulin Glargine (*Bkc) 100 Units/Ml SUB-Q HS LAKSHMI Lactulose 20 gm 07/10/25 09:00 07/11/25 08:19 Lactulose 20 Gm/30 Ml Udc PO 20 gm DAILY LAKSHMI Administration Losartan Potassium 100 mg 07/10/25 09:00 07/11/25 08:18 Losartan Potassium 100 Mg Tablet PO 100 mg DAILY LAKSHMI Administration Methocarbamol 750 mg 07/09/25 21:35 Methocarbamol 750 Mg Tablet PO Q6H PRN postilaminectomy Nicotine 1 patch 07/09/25 21:50 07/11/25 08:17 Nicotine (*Pbkc) 14 Mg Patch TRANSDERM 1 patch DAILY LAKSHMI Administration Oxycodone HCl 5 mg 07/09/25 21:35 07/11/25 08:18 Oxycodone Hcl (*Crx) 5 Mg Tab Ir PO 5 mg Q8H PRN Administration PAIN RATED 7-10 Pantoprazole Sodium 40 mg 07/10/25 21:00 07/11/25 08:17 Pantoprazole 40 Mg Tablet PO 40 mg Q12HR LAKSHMI Administration Polyethylene Glycol 17 gm 07/10/25 09:00 07/11/25 08:17 Polyethylene Glycol 3350 17 Gm Powd.Pack PO 17 gm DAILY LAKSHMI Administration Pregabalin 200 mg 07/09/25 21:50 07/11/25 08:18 Pregabalin (*Crx) 50 Mg Capsule PO 200 mg BID LAKSHMI Administration Fluticasone/Salmeterol 2 puff 07/10/25 08:00 07/11/25 07:46 Fluticasone/Salmeterol 115-21 Mcg Inhaler 1 Puff INHALATION 2 puff Q12HRT LAKSHMI Administration Senna/Docusate Sodium 1 tab 07/10/25 09:00 07/11/25 08:17 Senna/Docusate Sodium Tablet PO 1 tab BID LAKSHMI Administration Umeclidinium [place] 1 puff 07/10/25 09:00 07/11/25 07:46 Umeclidinium [place] 62.5 Mcg Ellipta INHALATION 1 puff DAILY LAKSHMI Administration Radiology Results: ITS Impressions Chest X-Ray 07/09/25 15:49 Impression: Mild CHF Abdomen/Pelvis CT 07/09/25 18:06 IMPRESSION: No acute abnormality is noted in the abdomen and pelvis. Ventral wall hernia containing small bowel loops. There is no bowel obstruction. Fat-containing left inguinal hernia. All CT scans at this facility are performed using low dose modulation cathy hniques as appropriate to perform exam including the following: automated exposure control; use of iterative reconstruction technique; adjustment of the mA and/or kV according to patient size (this includes techniques or standardized protocols for targeted exams where dose is matched to indication/reason for exam). Labs Labs: Laboratory Results - last 24 hr 07/09/25 07/10/25 07/10/25 15:44 16:27 20:30 WBC RBC Hgb 6.9 L* Hct 23.5 L MCV MCH MCHC RDW Plt Count MPV Immature Gran % (Auto) Neut % (Auto) Lymph % (Auto) [place] % (Auto) Eos % (Auto) Baso % (Auto) Lymph # (Auto) [place] # (Auto) Eos # (Auto) Baso # (Auto) Abs Immat Gran (auto) Absolute Neuts (auto) Absolute Nucleated RBC Nucleated RBC % Absolute Retic 0.07 Percent Retic 2.65 Immature Retic Fraction 32.7 H Retic Hgb Content 16.3 L Sodium Potassium Chloride Carbon Dioxide Anion Gap BUN Creatinine Estim Creat Clear Calc Estimated GFR Glucose POC Capillary Glucose 192 H Calcium Magnesium Total Bilirubin AST ALT Alkaline Phosphatase Total Protein Albumin Blood Type O Positive Antibody Screen Negative Crossmatch See Detail 07/10/25 07/11/25 07/11/25 20:43 07:28 09:11 WBC 6.6 RBC 3.23 L Hgb 8.6 L Hct 28.0 L MCV 86.7 MCH 26.6 MCHC 30.7 L RDW 17.0 H Plt Count 156 MPV 12.6 H Immature Gran % (Auto) 0.3 Neut % (Auto) 73.6 H Lymph % (Auto) 12.1 L [place] % (Auto) 12.3 H Eos % (Auto) 1.2 Baso % (Auto) 0.5 Lymph # (Auto) 0.80 L [place] # (Auto) 0.8 H Eos # (Auto) 0.1 Baso # (Auto) 0.0 Abs Immat Gran (auto) 0.02 Absolute Neuts (auto) 4.9 Absolute Nucleated RBC 0.020 H Nucleated RBC % 0.3 H Absolute Retic Percent Retic Immature Retic Fraction Retic Hgb Content Sodium 137 Potassium 4.6 Chloride 100 Carbon Dioxide 31 H Anion Gap 6 BUN 28 H Creatinine 1.29 Estim Creat Clear Calc 48 Estimated GFR 55 L Glucose 256 H POC Capillary Glucose 319 H 222 H Calcium 8.2 L Magnesium 2.2 Total Bilirubin 0.7 AST 21 ALT 15 Alkaline Phosphatase 121 Total Protein 6.0 L Albumin 3.4 L Blood Type Antibody Screen Crossmatch 07/11/25 11:18 WBC RBC Hgb Hct MCV MCH MCHC RDW Plt Count MPV Immature Gran % (Auto) Neut % (Auto) Lymph % (Auto) [place] % (Auto) Eos % (Auto) Baso % (Auto) Lymph # (Auto) [place] # (Auto) Eos # (Auto) Baso # (Auto) Abs Immat Gran (auto) Absolute Neuts (auto) Absolute Nucleated RBC Nucleated RBC % Absolute Retic Percent Retic Immature Retic Fraction Retic Hgb Content Sodium Potassium Chloride Carbon Dioxide Anion Gap BUN Creatinine Estim Creat Clear Calc Estimated GFR Glucose POC Capillary Glucose 294 H Calcium Magnesium Total Bilirubin AST ALT Alkaline Phosphatase Total Protein Albumin Blood Type Antibody Screen Crossmatch
[2025-07-11] MEDS: INSULIN ASPART (*BKC) 100 UNITS/ML 6 UNITS SUB-Q (17:25)
[2025-07-11] MEDS: INSULIN GLARGINE (*BKC) 100 UNITS/ML 15 UNITS SUB-Q (20:58)
[2025-07-11] MEDS: ATORVASTATIN 40 MG TABLET 80 MG PO (20:58)
[2025-07-11] MEDS: AMITRIPTYLINE HCL 25 MG TABLET PO (20:59)
[2025-07-12] VITALS (20 sets, daily range): BP systolic 96–118; BP diastolic 53–70; PULSE 68–89; RESP 14–18; TEMP 36.5–37.2; O2SAT 91–100
[2025-07-12] MEDS: IPRATROPIUM 0.5 MG/ALBUTEROL SULFATE 2.5 MG (BASE) AMPUL.NEB 3 ML INHALATION ×4 (01:59→20:10)
[2025-07-12] MEDS: ARTIFICIAL TEARS OPHTH SOLN 15 ML BOTTLE 1 DROP EACH EYE ×6 (02:39→22:17)
[2025-07-12 05:33] LABS: Hematocrit 28.2 % (42.0-52.0); Hemoglobin 8.5 g/dL (14.0-18.0); Immature Granulocyte Percent A 0.4 % (0-0.5); Lymphocytes Absolute Auto 0.87 K/mm3 (0.9-3.2); Mean Corpuscular HGB Conc 30.1 g/dl (32-36); Mean Corpuscular Hemoglobin 26.2 pg (26-34); Mean Corpuscular Volume 86.8 fl (80-100); Nucleated Red Blood Cells Absolute Auto 0.020 K/mm3 (0.0-0.012); Nucleated Red Blood Cells Perc 0.3 % (0.0-0.2); Platelet Count Result 152 k/mm3 (150-375); Red Blood Count 3.25 M/mm3 (4.6-6.20); White Blood Count 6.7 K/mm3 (4.5-10.0)
[2025-07-12 05:54] LABS: Alanine Aminotransferase 11 U/L (6-50); Albumin Level 3.3 g/dL (3.5-5.1); Alkaline Phosphatase 126 U/L (38-126); Anion Gap 5 mmol/L (4-12); Aspartate Amino Transferase 19 U/L (17-59); Bilirubin,Total 0.4 mg/dL (0.2-1.3); Blood Urea Nitrogen 35 mg/dL (9-20); Calcium 8.3 mg/dL (8.4-10.2); Carbon Dioxide 32 mmol/L (22-30); Chloride 98 mmol/L (98-107); Estimated CRCL calculation 42 ml/min; Estimated Glomerular Filt Rate 47; Glucose 270 mg/dL (65-110); Magnesium 2.1 mg/dL (1.6-2.3); Potassium 4.1 mmol/L (3.4-5.0); Sodium 135 mmol/L (137-145); Total Protein 5.9 g/dL (6.3-8.2)
[2025-07-12] MEDS: UMECLIDINIUM BROMIDE 62.5 MCG ELLIPTA 1 PUFF INHALATION (07:09)
[2025-07-12] MEDS: FLUTICASONE/SALMETEROL 115-21 MCG INHALER 1 PUFF 2 PUFF INHALATION ×2 (07:09→20:10)
[2025-07-12] MEDS: NICOTINE (*PBKC) 14 MG PATCH 1 PATCH TRANSDERM (08:17)
[2025-07-12] MEDS: LOSARTAN POTASSIUM 100 MG TABLET PO (08:17)
[2025-07-12] MEDS: PANTOPRAZOLE 40 MG TABLET PO ×2 (08:17→22:18)
[2025-07-12] MEDS: EMPAGLIFLOZIN 10 MG TABLET BY MOUTH (08:18)
[2025-07-12] MEDS: SENNA/DOCUSATE SODIUM TABLET 1 TAB PO ×2 (08:18→16:44)
[2025-07-12] MEDS: cycloSPORINE 0.4 ML OPHTH SOLUTION 1 DROP EACH EYE ×2 (08:18→22:16)
[2025-07-12] MEDS: FOLIC ACID 1 MG TABLET PO (08:18)
[2025-07-12] MEDS: PREGABALIN (*CRX) 50 MG CAPSULE 200 MG PO ×2 (08:18→16:44)
[2025-07-12] MEDS: LACTULOSE 20 GM/30 ML UDC PO (08:19)
[2025-07-12] MEDS: FUROSEMIDE 40 MG TABLET PO ×2 (08:19→22:18)
[2025-07-12] MEDS: INSULIN ASPART (*BKC) 100 UNITS/ML SUB-Q ×2 (08:21→17:19)
[2025-07-12] MEDS: INSULIN ASPART (*BKC) 100 UNITS/ML 6 UNITS SUB-Q ×3 (08:21→17:19)
--- NOTE | 2025-07-12 09:53 | WPDONCPN ---
Subjective Date/time seen: 07/12/25 09:53 Interval history: Per GI, melena has resolved. Patient scheduled for a bedside swallowing study. He apparently aspirated while drinking lactulose followed by water. Per the RN, the patient also developed hematuria today. IMPRESSION/PLAN: Anemia - Continue folic acid 1 mg daily - Venofer as an outpatient if needed - Hgb electrophoresis and haptoglobin levels pending Melena - resolved per GI - EGD/colonoscopy negative - Small bowel follow through scheduled - Stop all NSAIDs per GI recommendation Atrial fibrillation - Pradaxa currently on hold Hematuria - new - Check UA with reflex C&S Possible aspiration - Bedside swallowing study ordered Possible UTI? as cause for hematuria. Melena resolved. Recommend restarting anticoagulation for atrial fibrillation if cardiology deems risk of stroke is high. If Hgb drops again, may need to consider Watchman? Hopefully, Hgb will remain stable now that NSAIDs are discontinued. Please schedule f/u in office for CBC 2 weeks after discharge and f/u with Dr. Lacey in one month Thank you. Objective Data Vital Signs Vital Signs: Vital Signs - 24 hr 07/11/25 12:06 07/11/25 13:48 07/11/25 13:54 Temperature Pulse Rate 66 69 65 Respiratory Rate 16 16 Blood Pressure Pulse Oximetry Oxygen Delivery 07/11/25 16:00 07/11/25 16:05 07/11/25 20:00 Temperature 36.7 C Pulse Rate 69 68 Respiratory Rate 16 Blood Pressure 106/58 L Pulse Oximetry 96 Oxygen Delivery Room Air 07/11/25 20:00 07/11/25 20:26 07/11/25 20:28 Temperature Pulse Rate 70 71 Respiratory Rate 16 Blood Pressure Pulse Oximetry 96 Oxygen Delivery Room Air 07/11/25 20:38 07/11/25 21:00 07/12/25 00:00 Temperature 36.8 C Pulse Rate 72 60 71 Respiratory Rate 16 18 Blood Pressure 99/63 L Pulse Oximetry 95 Oxygen Delivery 07/12/25 00:00 07/12/25 02:00 07/12/25 02:05 Temperature Pulse Rate 72 68 69 Respiratory Rate 16 16 Blood Pressure Pulse Oximetry Oxygen Delivery 07/12/25 04:00 07/12/25 04:40 07/12/25 07:10 Temperature 36.5 C Pulse Rate 86 70 Respiratory Rate 14 Blood Pressure 107/56 L Pulse Oximetry 95 91 Oxygen Delivery Room Air 07/12/25 07:10 07/12/25 07:20 07/12/25 07:59 Temperature 37.0 C Pulse Rate 75 74 70 Respiratory Rate 16 16 17 Blood Pressure 118/70 Pulse Oximetry 98 Oxygen Delivery 07/12/25 08:00 07/12/25 08:00 07/12/25 08:21 Temperature Pulse Rate 89 79 Respiratory Rate Blood Pressure Pulse Oximetry Oxygen Delivery Room Air Intake/Output Intake/Output: Intake & Output 07/09/25 07/10/25 07/11/25 07/12/25 23:59 23:59 23:59 23:59 Intake Total 116 588 1909 20 Output Total 3350 1050 1700 Balance 700 -2993 1500 -1680 Meds/Results Medications: Active Medications Generic Name Dose Route Start Last Admin Trade Name Freq PRN Reason Stop Dose Admin Acetaminophen 650 mg 07/09/25 21:35 Acetaminophen 325 Mg Tablet PO Q6H PRN fever or pain rated 1-3 Albuterol 2 puff 07/11/25 12:43 Albuterol Sulfate (*Sp) Aerosol 1 Puff INHALATION Q6HRT PRN Shortness Of Breath Or Wheezing Albuterol/Ipratropium 3 ml 07/10/25 02:00 07/12/25 07:09 Ipratropium 0.5 Mg/Albuterol Sulfate 2.5 Mg (Base) Ampul.Neb 3 Ml INHALATION 3 ml Q6HRT LAKSHMI Administration Amitriptyline HCl 25 mg 07/09/25 21:45 07/11/25 20:59 Amitriptyline Hcl 25 Mg Tablet PO 25 mg HS LAKSHMI Administration Amlodipine Besylate 5 mg 07/10/25 09:00 07/12/25 08:18 Amlodipine Besylate 5 Mg Tablet PO 5 mg DAILY LAKSHMI Administration Artificial Tears 1 drop 07/09/25 22:00 07/12/25 08:19 Artificial Tears Ophth Soln 15 Ml Bottle EACH EYE 1 drop Q4H LAKSHMI Administration Atorvastatin Calcium 80 mg 07/09/25 21:45 07/11/25 20:58 Atorvastatin 40 Mg Tablet PO 80 mg HS LAKSHMI Administration Buspirone HCl 10 mg 07/10/25 09:00 07/12/25 08:19 Buspirone Hcl 10 Mg Tablet PO 10 mg DAILY LAKSHMI Administration Carvedilol 25 mg 07/09/25 21:35 07/12/25 08:21 Carvedilol 25 Mg Tablet PO 25 mg Q12HR LAKSHMI Administration Cyclosporine 1 drop 07/09/25 21:35 07/12/25 08:18 Cyclosporine 0.4 Ml Ophth Solution EACH EYE 1 drop Q12HR LAKSHMI Administration Dextrose 12.5 gm 07/09/25 20:19 Dextrose 50% 25 Gm/50 Ml Syringe IV PUSH PRN PRN Hypoglycemia Protocol Diclofenac Sodium 1 applic 07/11/25 14:12 Diclofenac Sodium 1% 100 Gm Gel (*Bkc) TOPICAL BID PRN joint pain Empagliflozin 10 mg 07/12/25 09:00 07/12/25 08:18 Empagliflozin 10 Mg Tablet BY MOUTH 10 mg DAILY LAKSHMI Administration Folic Acid 1 mg 07/11/25 09:00 07/12/25 08:18 Folic Acid 1 Mg Tablet PO 1 mg DAILY LAKSHMI Administration Furosemide 40 mg 07/10/25 09:00 07/12/25 08:19 Furosemide 40 Mg Tablet PO 40 mg Q12HR LAKSHMI Administration Glucagon 1 mg 07/09/25 20:19 Glucagon For Inj 1 Mg Vial IM PRN PRN Hypoglycemia Protocol Glucose 15 gm 07/09/25 20:19 Glucose Oral Gel 15 Gm Of Glucse In 37.5 Gm Tube PO PRN PRN Hypoglycemia Protocol Dextrose 1,000 mls @ 100 mls/hr 07/09/25 20:19 Dextrose 5% 1,000 Ml IVPB PRN PRN Hypoglycemia Protocol Insulin Aspart 2 - 5 units 07/10/25 08:00 07/12/25 08:21 Insulin Aspart (*Bkc) 100 Units/Ml SUB-Q 2 units TIDWM LAKSHMI Administration Protocol Insulin Aspart 6 units 07/11/25 17:00 07/12/25 08:21 Insulin Aspart (*Bkc) 100 Units/Ml SUB-Q 6 units TIDWM LAKSHMI Administration Insulin Glargine 15 units 07/11/25 21:00 07/11/25 20:58 Insulin Glargine (*Bkc) 100 Units/Ml SUB-Q 15 units HS LAKSHMI Administration Lactulose 20 gm 07/10/25 09:00 07/12/25 08:19 Lactulose 20 Gm/30 Ml Udc PO 20 gm DAILY LAKSHMI Administration Losartan Potassium 100 mg 07/10/25 09:00 07/12/25 08:17 Losartan Potassium 100 Mg Tablet PO 100 mg DAILY LAKSHMI Administration Methocarbamol 750 mg 07/09/25 21:35 Methocarbamol 750 Mg Tablet PO Q6H PRN postilaminectomy Nicotine 1 patch 07/09/25 21:50 07/12/25 08:17 Nicotine (*Pbkc) 14 Mg Patch TRANSDERM 1 patch DAILY LAKSHMI Administration Oxycodone HCl 5 mg 07/09/25 21:35 07/11/25 16:18 Oxycodone Hcl (*Crx) 5 Mg Tab Ir PO 5 mg Q8H PRN Administration PAIN RATED 7-10 Pantoprazole Sodium 40 mg 07/10/25 21:00 07/12/25 08:17 Pantoprazole 40 Mg Tablet PO 40 mg Q12HR LAKSHMI Administration Polyethylene Glycol 17 gm 07/10/25 09:00 07/12/25 08:19 Polyethylene Glycol 3350 17 Gm Powd.Pack PO 17 gm DAILY LAKSHMI Administration Pregabalin 200 mg 07/09/25 21:50 07/12/25 08:18 Pregabalin (*Crx) 50 Mg Capsule PO 200 mg BID LAKSHMI Administration Fluticasone/Salmeterol 2 puff 07/10/25 08:00 07/12/25 07:09 Fluticasone/Salmeterol 115-21 Mcg Inhaler 1 Puff INHALATION 2 puff Q12HRT LAKSHMI Administration Senna/Docusate Sodium 1 tab 07/10/25 09:00 07/12/25 08:18 Senna/Docusate Sodium Tablet PO 1 tab BID LAKSHMI Administration Umeclidinium [place] 1 puff 07/10/25 09:00 07/12/25 07:09 Umeclidinium [place] 62.5 Mcg Ellipta INHALATION 1 puff DAILY LAKSHMI Administration Radiology Results: ITS Impressions Chest X-Ray 07/09/25 15:49 Impression: Mild CHF Abdomen/Pelvis CT 07/09/25 18:06 IMPRESSION: No acute abnormality is noted in the abdomen and pelvis. Ventral wall hernia containing small bowel loops. There is no bowel obstruction. Fat-containing left inguinal hernia. All CT scans at this facility are performed using low dose modulation techniques as appropriate to perform exam including the following: automated exposure control; use of iterative reconstruction technique; adjustment of the mA and/or kV according to patient size (this includes techniques or standardized protocols for targeted exams where dose is matched to indication/reason for exam). Labs Labs: Laboratory Results - last 24 hr 07/10/25 07/11/25 07/11/25 20:30 11:18 16:25 WBC RBC Hgb Hct MCV MCH MCHC RDW Plt Count MPV Immature Gran % (Auto) Neut % (Auto) Lymph % (Auto) [place] % (Auto) Eos % (Auto) Baso % (Auto) Lymph # (Auto) [place] # (Auto) Eos # (Auto) Baso # (Auto) Abs Immat Gran (auto) Absolute Neuts (auto) Absolute Nucleated RBC Nucleated RBC % Haptoglobin 198 Sodium Potassium Chloride Carbon Dioxide Anion Gap BUN Creatinine Estim Creat Clear Calc Estimated GFR Glucose POC Capillary Glucose 294 H 279 H Calcium Magnesium Total Bilirubin AST ALT Alkaline Phosphatase Total Protein Albumin 07/11/25 07/12/25 07/12/25 20:15 05:12 07:29 WBC 6.7 RBC 3.25 L Hgb 8.5 L Hct 28.2 L MCV 86.8 MCH 26.2 MCHC 30.1 L RDW 17.6 H Plt Count 152 MPV 11.3 H Immature Gran % (Auto) 0.4 Neut % (Auto) 72.3 Lymph % (Auto) 12.9 L [place] % (Auto) 12.4 H Eos % (Auto) 1.6 Baso % (Auto) 0.4 Lymph # (Auto) 0.87 L [place] # (Auto) 0.8 H Eos # (Auto) 0.1 Baso # (Auto) 0.0 Abs Immat Gran (auto) 0.03 Absolute Neuts (auto) 4.9 Absolute Nucleated RBC 0.020 H Nucleated RBC % 0.3 H Haptoglobin Sodium 135 L Potassium 4.1 Chloride 98 Carbon Dioxide 32 H Anion Gap 5 BUN 35 H Creatinine 1.49 H Estim Creat Clear Calc 42 Estimated GFR 47 L Glucose 270 H POC Capillary Glucose 178 H 243 H Calcium 8.3 L Magnesium 2.1 Total Bilirubin 0.4 AST 19 ALT 11 Alkaline Phosphatase 126 Total Protein 5.9 L Albumin 3.3 L
--- NOTE | 2025-07-12 12:51 | PCSTNOTE ---
Please refer to the Bedside Swallow Evaluation in the EMR. Please note, silent aspiration cannot be ruled out at bedside. This 69 year old male patient was admitted to [facility] on 07/09 due to abnormal labs (low hemoglobin). Patient was evaluated at bedside d/t taking thickened liquid medicine this morning, having a sip of water to help it go down, and then having a coughing fit resulting in emesis. Pt verbalized that he occasionally coughs during oral intake (is unsure which consistency causes this) but typically no concerns during meals. 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 Oral motor exam revealed appropriate range of motion and strength for oral intake. Pt is edentulous. Pt was alert and oriented. Per ALISON Muller, pt will sometimes say things that are nonsensical. This is baseline as reported by the [facility] the [facility]. Throughout the BSE, the pt followed directions, answered questions appropriately, and remained alert/oriented. Patient was observed taking whole pills with thin liquid, as well as puree (pudding), and solids (pulled pork sandwich, peas) via straw, spoon, and hand. Pt demonstrated no s/s of aspiration throughout all trials. Laryngeal elevation was strong and swallow was timely. No oral residue was noted. Please note that silent aspiration cannot be ruled out at bedside. It is recommended that this pt be on an IDDSI level 7 regular solids and IDDSI level 1 thin liquids diet with frequent supervision. Pt was offered an IDDSI level 6 soft and bite sized diet d/t lack of dentition but pt refused. Standard swallowing precautions should be encouraged and followed: Sit upright, small bites/sips, slow down pace of oral intake and finish solid/liquid before engaging in conversation. No further ST is warranted at this time. Dr. Parra and ALISON Muller were notified of BSE results and recommendations. Thank you for this referral.
--- NOTE | 2025-07-12 14:20 | PM.IMPN ---
Progress Note: A&P Assessment and Plan (1) Acute on chronic anemia: Code(s): D64.9 - Anemia, unspecified Status: Acute (2) Melena: Code(s): K92.1 - Melena Status: Acute (3) Atrial fibrillation: Qualifiers: Atrial fibrillation type: paroxysmal Qualified Code(s): I48.0 - Paroxysmal atrial fibrillation Code(s): I48.91 - Unspecified atrial fibrillation Status: Chronic (4) Diabetes: Qualifiers: Diabetes mellitus type: type 2 Diabetes mellitus assisted insulin use: with financial services internship use Diabetes mellitus complication status: without complication Qualified Code(s): E11.9 - Type 2 diabetes mellitus without complications; Z79.4 - 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 of insulin Code(s): E11.9 - Type 2 diabetes mellitus without complications Status: Chronic (5) HTN (hypertension): Qualifiers: Hypertension type: primary hypertension Qualified Code(s): I10 - Essential (primary) hypertension Code(s): I10 - Essential (primary) hypertension Status: Chronic (6) COPD (chronic obstructive pulmonary disease): Qualifiers: COPD type: unspecified COPD Qualified Code(s): J44.9 - Chronic obstructive pulmonary disease, unspecified Code(s): J44.9 - Chronic obstructive pulmonary disease, unspecified Status: Chronic Plan this is a 69-year-old male who presents Here from [facility] via EMS on 07/09 for further evaluation of low hemoglobin. Per staff reported to EMS patient was more confused yesterday which prompted repeat labs and urine sample. Labs resulted today showing hemoglobin of 4. Patient was reporting dizziness as well as fatigue. Additionally he also had new dark tarry stool ongoing for few months. He has history of atrial fibrillation and had been on Pradaxa. He was last hospitalized in January of 2025 once found to be anemic with a hemoglobin of 5.4 was transfused underwent upper and lower scope which was significant for internal hemorrhoids and diverticulosis. Initial vital sign at presentation: 98.2? F, HR 64, R 19, 106/63, and 96% on RA. ED workup showed: No leukocytosis, hemoglobin 3.8, MCV within normal limits, MCHC 27.3, platelet count 133, INR 2.5, no significant electrolyte derangements, creatinine 1.25 and GFR 57, glucose 129, iron 19, TIBC 385,% saturation 5%, UA showed 3+ glucose otherwise unremarkable. CXR showed mild CHF. CT of the abdomen/pelvis showed no acute abnormality, ventral wall hernia containing small bowel loops without obstruction, fat containing left inguinal hernia. EKG showed sinus rhythm, rate 64, borderline right axis deviation. Anticoagulation was held patient underwent transfusion GI was consulted underwent EGD 07/10/2020 showed esophageal ulcer without bleeding hiatal gastric erosions. Patient On PPI Small bowel capsule endoscopy to be planned as an outpatient basis this is remaining of the small bowel. Will check with GI when they are okay with resuming anticoagulation Hematology oncology has been consulted. Treated with IV Venofer and folic acid. Choking episode will have speech see him. Get chest x-ray Mild hematuria noted per nursing staff. Will monitor. Atrial fibrillation on Pradaxa which is on hold History of CVA COPD Hypertension Type 2 diabetes on insulin Code Status: Full code Subjective Date/time seen: 07/12/25 14:20 Interval history: Patient had an episode of aspiration/choking. had multiple bouts of coughing. Review of Systems Review of Systems: All systems reviewed & are unremarkable except as noted in HPI and below Exam Narrative: Patient is comfortable, NAD HEENT: eyes are clear and none icteric LUNGS:CTA HEART: RR S1S2 ABD: BS+, Soft and nontender Lower extremities: no edema SKIN: nonjaundiced Neuro: grossly intact. Objective Data Vital Signs Vital Signs: Vital Signs - 24 hr 07/11/25 16:00 07/11/25 16:05 07/11/25 20:00 Temperature 98.1 F Pulse Rate 69 68 Respiratory Rate 16 Blood Pressure 106/58 L Pulse Oximetry 96 Oxygen Delivery Room Air 07/11/25 20:00 07/11/25 20:26 07/11/25 20:28 Temperature Pulse Rate 70 71 Respiratory Rate 16 Blood Pressure Pulse Oximetry 96 Oxygen Delivery Room Air 07/11/25 20:38 07/11/25 21:00 07/12/25 00:00 Temperature 98.2 F Pulse Rate 72 60 71 Respiratory Rate 16 18 Blood Pressure 99/63 L Pulse Oximetry 95 Oxygen Delivery 07/12/25 00:00 07/12/25 02:00 07/12/25 02:05 Temperature Pulse Rate 72 68 69 Respiratory Rate 16 16 Blood Pressure Pulse Oximetry Oxygen Delivery 07/12/25 04:00 07/12/25 04:40 07/12/25 07:10 Temperature 97.7 F Pulse Rate 86 70 Respiratory Rate 14 Blood Pressure 107/56 L Pulse Oximetry 95 91 Oxygen Delivery Room Air 07/12/25 07:10 07/12/25 07:20 07/12/25 07:59 Temperature 98.6 F Pulse Rate 75 74 70 Respiratory Rate 16 16 17 Blood Pressure 118/70 Pulse Oximetry 98 Oxygen Delivery 07/12/25 08:00 07/12/25 08:00 07/12/25 08:21 Temperature Pulse Rate 89 79 Respiratory Rate Blood Pressure Pulse Oximetry Oxygen Delivery Room Air 07/12/25 12:00 Temperature Pulse Rate 85 Respiratory Rate Blood Pressure Pulse Oximetry Oxygen Delivery Intake/Output Intake/Output: Intake & Output 07/09/25 07/10/25 07/11/25 07/12/25 23:59 23:59 23:59 23:59 Intake Total 239 577 3139 20 Output Total 3350 1050 1700 Balance 700 -7583 1500 -1680 Meds/Results Medications: Active Medications Generic Name Dose Route Start Last Admin Trade Name Freq PRN Reason Stop Dose Admin Acetaminophen 650 mg 07/09/25 21:35 Acetaminophen 325 Mg Tablet PO Q6H PRN fever or pain rated 1-3 Albuterol 2 puff 07/11/25 12:43 Albuterol Sulfate (*Sp) Aerosol 1 Puff INHALATION Q6HRT PRN Shortness Of Breath Or Wheezing Albuterol/Ipratropium 3 ml 07/10/25 02:00 07/12/25 07:09 Ipratropium 0.5 Mg/Albuterol Sulfate 2.5 Mg (Base) Ampul.Neb 3 Ml INHALATION 3 ml Q6HRT LAKSHMI Administration Amitriptyline HCl 25 mg 07/09/25 21:45 07/11/25 20:59 Amitriptyline Hcl 25 Mg Tablet PO 25 mg HS LAKSHMI Administration Amlodipine Besylate 5 mg 07/10/25 09:00 07/12/25 08:18 Amlodipine Besylate 5 Mg Tablet PO 5 mg DAILY LAKSHMI Administration Artificial Tears 1 drop 07/09/25 22:00 07/12/25 08:19 Artificial Tears Ophth Soln 15 Ml Bottle EACH EYE 1 drop Q4H LAKSHMI Administration Atorvastatin Calcium 80 mg 07/09/25 21:45 07/11/25 20:58 Atorvastatin 40 Mg Tablet PO 80 mg HS LAKSHMI Administration Buspirone HCl 10 mg 07/10/25 09:00 07/12/25 08:19 Buspirone Hcl 10 Mg Tablet PO 10 mg DAILY LAKSHMI Administration Carvedilol 25 mg 07/09/25 21:35 07/12/25 08:21 Carvedilol 25 Mg Tablet PO 25 mg Q12HR LAKSHMI Administration Cyclosporine 1 drop 07/09/25 21:35 07/12/25 08:18 Cyclosporine 0.4 Ml Ophth Solution EACH EYE 1 drop Q12HR LAKSHMI Administration Dextrose 12.5 gm 07/09/25 20:19 Dextrose 50% 25 Gm/50 Ml Syringe IV PUSH PRN PRN Hypoglycemia Protocol Diclofenac Sodium 1 applic 07/11/25 14:12 Diclofenac Sodium 1% 100 Gm Gel (*Bkc) TOPICAL BID PRN joint pain Empagliflozin 10 mg 07/12/25 09:00 07/12/25 08:18 Empagliflozin 10 Mg Tablet BY MOUTH 10 mg DAILY LAKSHMI Administration Folic Acid 1 mg 07/11/25 09:00 07/12/25 08:18 Folic Acid 1 Mg Tablet PO 1 mg DAILY LAKSHMI Administration Furosemide 40 mg 07/10/25 09:00 07/12/25 08:19 Furosemide 40 Mg Tablet PO 40 mg Q12HR LAKSHMI Administration Glucagon 1 mg 07/09/25 20:19 Glucagon For Inj 1 Mg Vial IM PRN PRN Hypoglycemia Protocol Glucose 15 gm 07/09/25 20:19 Glucose Oral Gel 15 Gm Of Glucse In 37.5 Gm Tube PO PRN PRN Hypoglycemia Protocol Dextrose 1,000 mls @ 100 mls/hr 07/09/25 20:19 Dextrose 5% 1,000 Ml IVPB PRN PRN Hypoglycemia Protocol Insulin Aspart 2 - 5 units 07/10/25 08:00 07/12/25 11:32 Insulin Aspart (*Bkc) 100 Units/Ml SUB-Q Not Given TIDWM LAKSHMI Protocol Insulin Aspart 6 units 07/11/25 17:00 07/12/25 12:15 Insulin Aspart (*Bkc) 100 Units/Ml SUB-Q 6 units TIDWM LAKSHMI Administration Insulin Glargine 15 units 07/11/25 21:00 07/11/25 20:58 Insulin Glargine (*Bkc) 100 Units/Ml SUB-Q 15 units HS LAKSHMI Administration Lactulose 20 gm 07/10/25 09:00 07/12/25 08:19 Lactulose 20 Gm/30 Ml Udc PO 20 gm DAILY LAKSHMI Administration Losartan Potassium 100 mg 07/10/25 09:00 07/12/25 08:17 Losartan Potassium 100 Mg Tablet PO 100 mg DAILY LAKSHMI Administration Methocarbamol 750 mg 07/09/25 21:35 Methocarbamol 750 Mg Tablet PO Q6H PRN postilaminectomy Nicotine 1 patch 07/09/25 21:50 07/12/25 08:17 Nicotine (*Pbkc) 14 Mg Patch TRANSDERM 1 patch DAILY LASKHMI Administration Oxycodone HCl 5 mg 07/09/25 21:35 07/11/25 16:18 Oxycodone Hcl (*Crx) 5 Mg Tab Ir PO 5 mg Q8H PRN Administration PAIN RATED 7-10 Pantoprazole Sodium 40 mg 07/10/25 21:00 07/12/25 08:17 Pantoprazole 40 Mg Tablet PO 40 mg Q12HR LAKSHMI Administration Polyethylene Glycol 17 gm 07/10/25 09:00 07/12/25 08:19 Polyethylene Glycol 3350 17 Gm Powd.Pack PO 17 gm DAILY LAKSHMI Administration Pregabalin 200 mg 07/09/25 21:50 07/12/25 08:18 Pregabalin (*Crx) 50 Mg Capsule PO 200 mg BID LAKSHMI Administration Fluticasone/Salmeterol 2 puff 07/10/25 08:00 07/12/25 07:09 Fluticasone/Salmeterol 115-21 Mcg Inhaler 1 Puff INHALATION 2 puff Q12HRT LAKSHMI Administration Senna/Docusate Sodium 1 tab 07/10/25 09:00 07/12/25 08:18 Senna/Docusate Sodium Tablet PO 1 tab BID LAKSHMI Administration Umeclidinium [place] 1 puff 07/10/25 09:00 07/12/25 07:09 Umeclidinium [place] 62.5 Mcg Ellipta INHALATION 1 puff DAILY LAKSHMI Administration Radiology Results: ITS Impressions Chest X-Ray 07/09/25 15:49 Impression: Mild CHF Abdomen/Pelvis CT 07/09/25 18:06 IMPRESSION: No acute abnormality is noted in the abdomen and pelvis. Ventral wall hernia containing small bowel loops. There is no bowel obstruction. Fat-containing left inguinal hernia. All CT scans at this facility are performed using low dose modulation techniques as appropriate to perform exam including the following: automated exposure control; use of iterative reconstruction technique; adjustment of the mA and/or kV according to patient size (this includes techniques or standardized protocols for targeted exams where dose is matched to indication/reason for exam). Labs Labs: Laboratory Results - last 24 hr 07/10/25 07/11/25 07/11/25 20:30 16:25 20:15 WBC RBC Hgb Hct MCV MCH MCHC RDW Plt Count MPV Immature Gran % (Auto) Neut % (Auto) Lymph % (Auto) [place] % (Auto) Eos % (Auto) Baso % (Auto) Lymph # (Auto) [place] # (Auto) Eos # (Auto) Baso # (Auto) Abs Immat Gran (auto) Absolute Neuts (auto) Absolute Nucleated RBC Nucleated RBC % Haptoglobin 198 Sodium Potassium Chloride Carbon Dioxide Anion Gap BUN Creatinine Estim Creat Clear Calc Estimated GFR Glucose POC Capillary Glucose 279 H 178 H Calcium Magnesium Total Bilirubin AST ALT Alkaline Phosphatase Total Protein Albumin 07/12/25 07/12/25 07/12/25 05:12 07:29 11:17 WBC 6.7 RBC 3.25 L Hgb 8.5 L Hct 28.2 L MCV 86.8 MCH 26.2 MCHC 30.1 L RDW 17.6 H Plt Count 152 MPV 11.3 H Immature Gran % (Auto) 0.4 Neut % (Auto) 72.3 Lymph % (Auto) 12.9 L [place] % (Auto) 12.4 H Eos % (Auto) 1.6 Baso % (Auto) 0.4 Lymph # (Auto) 0.87 L [place] # (Auto) 0.8 H Eos # (Auto) 0.1 Baso # (Auto) 0.0 Abs Immat Gran (auto) 0.03 Absolute Neuts (auto) 4.9 Absolute Nucleated RBC 0.020 H Nucleated RBC % 0.3 H Haptoglobin Sodium 135 L Potassium 4.1 Chloride 98 Carbon Dioxide 32 H Anion Gap 5 BUN 35 H Creatinine 1.49 H Estim Creat Clear Calc 42 Estimated GFR 47 L Glucose 270 H POC Capillary Glucose 243 H 186 H Calcium 8.3 L Magnesium 2.1 Total Bilirubin 0.4 AST 19 ALT 11 Alkaline Phosphatase 126 Total Protein 5.9 L Albumin 3.3 L
[2025-07-12] MEDS: INSULIN GLARGINE (*BKC) 100 UNITS/ML 15 UNITS SUB-Q (22:16)
[2025-07-12] MEDS: ATORVASTATIN 40 MG TABLET 80 MG PO (22:18)
[2025-07-12] MEDS: AMITRIPTYLINE HCL 25 MG TABLET PO (22:18)
[2025-07-13] VITALS (19 sets, daily range): BP systolic 93–105; BP diastolic 54–80; PULSE 67–105; RESP 16–20; TEMP 36.7–36.9; O2SAT 94–99
[2025-07-13] MEDS: oxyCODONE HCL (*CRX) 5 MG TAB IR PO ×3 (00:01→20:27)
[2025-07-13] MEDS: ARTIFICIAL TEARS OPHTH SOLN 15 ML BOTTLE 1 DROP EACH EYE ×6 (01:38→20:49)
[2025-07-13] MEDS: IPRATROPIUM 0.5 MG/ALBUTEROL SULFATE 2.5 MG (BASE) AMPUL.NEB 3 ML INHALATION ×3 (01:49→20:35)
[2025-07-13 05:50] LABS: Hematocrit 31.5 % (42.0-52.0); Hemoglobin 9.3 g/dL (14.0-18.0); Immature Granulocyte Percent A 0.5 % (0-0.5); Immature Platelet Fraction Pct 11.5 % (0.9-11.2); Lymphocytes Absolute Auto 0.57 K/mm3 (0.9-3.2); Mean Corpuscular HGB Conc 29.5 g/dl (32-36); Mean Corpuscular Hemoglobin 26.3 pg (26-34); Mean Corpuscular Volume 89.0 fl (80-100); Nucleated Red Blood Cells Absolute Auto 0.020 K/mm3 (0.0-0.012); Nucleated Red Blood Cells Perc 0.2 % (0.0-0.2); Platelet Count Result 159 k/mm3 (150-375); Red Blood Count 3.54 M/mm3 (4.6-6.20); White Blood Count 10.7 K/mm3 (4.5-10.0)
[2025-07-13 06:13] LABS: Alanine Aminotransferase 13 U/L (6-50); Albumin Level 3.4 g/dL (3.5-5.1); Alkaline Phosphatase 126 U/L (38-126); Anion Gap 7 mmol/L (4-12); Aspartate Amino Transferase 21 U/L (17-59); Bilirubin,Total 0.4 mg/dL (0.2-1.3); Blood Urea Nitrogen 34 mg/dL (9-20); Calcium 8.1 mg/dL (8.4-10.2); Carbon Dioxide 29 mmol/L (22-30); Chloride 99 mmol/L (98-107); Estimated CRCL calculation 41 ml/min; Estimated Glomerular Filt Rate 46; Glucose 196 mg/dL (65-110); Magnesium 2.3 mg/dL (1.6-2.3); Potassium 4.0 mmol/L (3.4-5.0); Sodium 135 mmol/L (137-145); Total Protein 6.0 g/dL (6.3-8.2)
[2025-07-13 06:31] LABS: Anisocytosis 1+; Burr Cells 1+; Hypochromasia 2+; Polychromasia 1+; Schistocytes None Seen; Target Cells 1+
[2025-07-13] MEDS: PREGABALIN (*CRX) 50 MG CAPSULE 200 MG PO ×2 (09:25→17:26)
[2025-07-13] MEDS: LACTULOSE 20 GM/30 ML UDC PO (09:25)
[2025-07-13] MEDS: SENNA/DOCUSATE SODIUM TABLET 1 TAB PO ×2 (09:25→17:26)
[2025-07-13] MEDS: FOLIC ACID 1 MG TABLET PO (09:25)
[2025-07-13] MEDS: LOSARTAN POTASSIUM 100 MG TABLET PO (09:25)
[2025-07-13] MEDS: FUROSEMIDE 40 MG TABLET PO ×2 (09:25→20:24)
[2025-07-13] MEDS: EMPAGLIFLOZIN 10 MG TABLET BY MOUTH (09:25)
[2025-07-13] MEDS: PANTOPRAZOLE 40 MG TABLET PO ×2 (09:25→20:24)
[2025-07-13] MEDS: NICOTINE (*PBKC) 14 MG PATCH 1 PATCH TRANSDERM (09:26)
[2025-07-13] MEDS: cycloSPORINE 0.4 ML OPHTH SOLUTION 1 DROP EACH EYE ×2 (09:26→20:24)
[2025-07-13] MEDS: INSULIN ASPART (*BKC) 100 UNITS/ML 6 UNITS SUB-Q ×3 (09:38→17:27)
[2025-07-13] MEDS: UMECLIDINIUM BROMIDE 62.5 MCG ELLIPTA 1 PUFF INHALATION (09:43)
[2025-07-13] MEDS: FLUTICASONE/SALMETEROL 115-21 MCG INHALER 1 PUFF 2 PUFF INHALATION ×2 (09:43→20:35)
--- NOTE | 2025-07-13 13:54 | P.PNIM_ITS ---
Progress Note: A&P Assessment and Plan (1) Acute on chronic anemia: Code(s): D64.9 - Anemia, unspecified Status: Acute (2) Melena: Code(s): K92.1 - Melena Status: Acute (3) Atrial fibrillation: Qualifiers: Atrial fibrillation type: paroxysmal Qualified Code(s): I48.0 - Paroxysmal atrial fibrillation Code(s): I48.91 - Unspecified atrial fibrillation Status: Chronic (4) Diabetes: Qualifiers: Diabetes mellitus type: type 2 Diabetes mellitus usp insulin use: with intermodal customer service use Diabetes mellitus complication status: without complication Qualified Code(s): E11.9 - Type 2 diabetes mellitus without complications; Z79.4 - 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 (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) use of insulin Code(s): E11.9 - Type 2 diabetes mellitus without complications Status: Chronic (5) HTN (hypertension): Qualifiers: Hypertension type: primary hypertension Qualified Code(s): I10 - Essential (primary) hypertension Code(s): I10 - Essential (primary) hypertension Status: Chronic (6) COPD (chronic obstructive pulmonary disease): Qualifiers: COPD type: unspecified COPD Qualified Code(s): J44.9 - Chronic obstructive pulmonary disease, unspecified Code(s): J44.9 - Chronic obstructive pulmonary disease, unspecified Status: Chronic Plan this is a 69-year-old male who presents Here from [facility] via EMS on 07/09 for further evaluation of low hemoglobin. Per staff reported to EMS patient was more confused yesterday which prompted repeat labs and urine sample. Labs resulted today showing hemoglobin of 4. Patient was reporting dizziness as well as fatigue. Additionally he also had new dark tarry stool ongoing for few months. He has history of atrial fibrillation and had been on Pradaxa. He was last hospitalized in January of 2025 once found to be anemic with a hemoglobin of 5.4 was transfused underwent upper and lower scope which was significant for internal hemorrhoids and diverticulosis. Initial vital sign at presentation: 98.2? F, HR 64, R 19, 106/63, and 96% on RA. ED workup showed: No leukocytosis, hemoglobin 3.8, MCV within normal limits, MCHC 27.3, platelet count 133, INR 2.5, no significant electrolyte derangements, creatinine 1.25 and GFR 57, glucose 129, iron 19, TIBC 385,% saturation 5%, UA showed 3+ glucose otherwise unremarkable. CXR showed mild CHF. CT of the abdomen/pelvis showed no acute abnormality, ventral wall hernia containing small bowel loops without obstruction, fat containing left inguinal hernia. EKG showed sinus rhythm, rate 64, borderline right axis deviation. Anticoagulation was held patient underwent transfusion GI was consulted underwent EGD 07/10/2020 showed esophageal ulcer without bleeding hiatal gastric erosions. Patient On PPI Small bowel capsule endoscopy to be planned as an outpatient basis this is remaining of the small bowel. Will check with GI when they are okay with resuming anticoagulation Hematology oncology has been consulted. Treated with IV Venofer and folic acid. Choking episode will have speech see him. Chest x-ray dated repeat was clear speech therapy evaluated the patient and cleared for oral diet. Mild hematuria noted per nursing staff. Will monitor. Atrial fibrillation on Pradaxa which is on hold History of CVA COPD Hypertension Type 2 diabetes on insulin Code Status: Full code Subjective Date/time seen: 07/13/25 13:54 Interval history: He feels better today. Not much cough. Denies any chest pain or shortness of breath. Patient comes from [facility]. Review of Systems Review of Systems: All systems reviewed & are unremarkable except as noted in HPI and below Exam Narrative: Patient is comfortable, NAD HEENT: eyes are clear and none icteric LUNGS:CTA HEART: RR S1S2 ABD: BS+, Soft and nontender Lower extremities: no edema SKIN: nonjaundiced Neuro: grossly intact. Objective Data Vital Signs Vital Signs: Vital Signs - 24 hr 07/12/25 14:24 07/12/25 14:31 07/12/25 15:49 Temperature 98.6 F Pulse Rate 72 69 73 Respiratory Rate 16 16 17 Blood Pressure 96/53 L Pulse Oximetry 96 Oxygen Delivery 07/12/25 16:00 07/12/25 20:00 07/12/25 20:00 Temperature Pulse Rate 71 82 Respiratory Rate Blood Pressure Pulse Oximetry Oxygen Delivery Room Air 07/12/25 20:10 07/12/25 20:17 07/12/25 21:26 Temperature 98.9 F Pulse Rate 72 70 76 Respiratory Rate 16 16 18 Blood Pressure 107/69 Pulse Oximetry 100 Oxygen Delivery 07/12/25 22:18 07/13/25 00:00 07/13/25 01:49 Temperature Pulse Rate 68 98 77 Respiratory Rate 16 Blood Pressure Pulse Oximetry Oxygen Delivery 07/13/25 01:51 07/13/25 01:54 07/13/25 04:00 Temperature Pulse Rate 73 88 Respiratory Rate 20 Blood Pressure Pulse Oximetry 94 Oxygen Delivery Room Air 07/13/25 05:04 07/13/25 08:05 07/13/25 09:20 Temperature 98.5 F Pulse Rate 67 93 Respiratory Rate 18 Blood Pressure 105/54 L Pulse Oximetry 99 Oxygen Delivery Room Air 07/13/25 09:26 07/13/25 09:40 07/13/25 09:46 Temperature Pulse Rate 94 100 97 Respiratory Rate 20 Blood Pressure Pulse Oximetry Oxygen Delivery 07/13/25 09:50 07/13/25 12:06 Temperature Pulse Rate 96 92 Respiratory Rate 20 Blood Pressure Pulse Oximetry Oxygen Delivery Intake/Output Intake/Output: Intake & Output 07/10/25 07/11/25 07/12/25 07/13/25 23:59 23:59 23:59 23:59 Intake Total 587 2550 1420 1290 Output Total 3350 1050 2600 Balance -2763 1500 -1180 1290 Meds/Results Medications: Active Medications Generic Name Dose Route Start Last Admin Trade Name Freq PRN Reason Stop Dose Admin Acetaminophen 650 mg 07/09/25 21:35 Acetaminophen 325 Mg Tablet PO Q6H PRN fever or pain rated 1-3 Albuterol 2 puff 07/11/25 12:43 Albuterol Sulfate (*Sp) Aerosol 1 Puff INHALATION Q6HRT PRN Shortness Of Breath Or Wheezing Albuterol/Ipratropium 3 ml 07/10/25 02:00 07/13/25 09:42 Ipratropium 0.5 Mg/Albuterol Sulfate 2.5 Mg (Base) Ampul.Neb 3 Ml INHALATION 3 ml Q6HRT LAKSHMI Administration Amitriptyline HCl 25 mg 07/09/25 21:45 07/12/25 22:18 Amitriptyline Hcl 25 Mg Tablet PO 25 mg HS LAKSHMI Administration Amlodipine Besylate 5 mg 07/10/25 09:00 07/13/25 09:25 Amlodipine Besylate 5 Mg Tablet PO 5 mg DAILY LAKSHMI Administration Artificial Tears 1 drop 07/09/25 22:00 07/13/25 09:40 Artificial Tears Ophth Soln 15 Ml Bottle EACH EYE 1 drop Q4H LAKSHMI Administration Atorvastatin Calcium 80 mg 07/09/25 21:45 07/12/25 22:18 Atorvastatin 40 Mg Tablet PO 80 mg HS LAKSHMI Administration Buspirone HCl 10 mg 07/10/25 09:00 07/13/25 09:25 Buspirone Hcl 10 Mg Tablet PO 10 mg DAILY LAKSHMI Administration Carvedilol 25 mg 07/09/25 21:35 07/13/25 09:26 Carvedilol 25 Mg Tablet PO 25 mg Q12HR LAKSHMI Administration Cyclosporine 1 drop 07/09/25 21:35 07/13/25 09:26 Cyclosporine 0.4 Ml Ophth Solution EACH EYE 1 drop Q12HR LAKSHMI Administration Dextrose 12.5 gm 07/09/25 20:19 Dextrose 50% 25 Gm/50 Ml Syringe IV PUSH PRN PRN Hypoglycemia Protocol Diclofenac Sodium 1 applic 07/11/25 14:12 Diclofenac Sodium 1% 100 Gm Gel (*Bkc) TOPICAL BID PRN joint pain Empagliflozin 10 mg 07/12/25 09:00 07/13/25 09:25 Empagliflozin 10 Mg Tablet BY MOUTH 10 mg DAILY LAKSHMI Administration Folic Acid 1 mg 07/11/25 09:00 07/13/25 09:25 Folic Acid 1 Mg Tablet PO 1 mg DAILY LAKSHMI Administration Furosemide 40 mg 07/10/25 09:00 07/13/25 09:25 Furosemide 40 Mg Tablet PO 40 mg Q12HR LAKSHMI Administration Glucagon 1 mg 07/09/25 20:19 Glucagon For Inj 1 Mg Vial IM PRN PRN Hypoglycemia Protocol Glucose 15 gm 07/09/25 20:19 Glucose Oral Gel 15 Gm Of Glucse In 37.5 Gm Tube PO PRN PRN Hypoglycemia Protocol Dextrose 1,000 mls @ 100 mls/hr 07/09/25 20:19 Dextrose 5% 1,000 Ml IVPB PRN PRN Hypoglycemia Protocol Insulin Aspart 2 - 5 units 07/10/25 08:00 07/13/25 11:55 Insulin Aspart (*Bkc) 100 Units/Ml SUB-Q Not Given [facility] Protocol Insulin Aspart 6 units 07/11/25 17:00 07/13/25 12:28 Insulin Aspart (*Bkc) 100 Units/Ml SUB-Q 6 units TIDWM LAKSHMI Administration Insulin Glargine 15 units 07/11/25 21:00 07/12/25 22:16 Insulin Glargine (*Bkc) 100 Units/Ml SUB-Q 15 units HS LAKSHMI Administration Lactulose 20 gm 07/10/25 09:00 07/13/25 09:25 Lactulose 20 Gm/30 Ml Udc PO 20 gm DAILY LAKSHMI Administration Losartan Potassium 100 mg 07/10/25 09:00 07/13/25 09:25 Losartan Potassium 100 Mg Tablet PO 100 mg DAILY LAKSHMI Administration Methocarbamol 750 mg 07/09/25 21:35 Methocarbamol 750 Mg Tablet PO Q6H PRN postilaminectomy Nicotine 1 patch 07/09/25 21:50 07/13/25 09:26 Nicotine (*Pbkc) 14 Mg Patch TRANSDERM 1 patch DAILY LAKSHMI Administration Oxycodone HCl 5 mg 07/09/25 21:35 07/13/25 09:25 Oxycodone Hcl (*Crx) 5 Mg Tab Ir PO 5 mg Q8H PRN Administration PAIN RATED 7-10 Pantoprazole Sodium 40 mg 07/10/25 21:00 07/13/25 09:25 Pantoprazole 40 Mg Tablet PO 40 mg Q12HR LAKSHMI Administration Polyethylene Glycol 17 gm 07/10/25 09:00 07/13/25 09:29 Polyethylene Glycol 3350 17 Gm Powd.Pack PO Not Given DAILY LAKSHMI Pregabalin 200 mg 07/09/25 21:50 07/13/25 09:25 Pregabalin (*Crx) 50 Mg Capsule PO 200 mg BID LAKSHMI Administration Fluticasone/Salmeterol 2 puff 07/10/25 08:00 07/13/25 09:43 Fluticasone/Salmeterol 115-21 Mcg Inhaler 1 Puff INHALATION 2 puff Q12HRT LAKSHMI Administration Senna/Docusate Sodium 1 tab 07/10/25 09:00 07/13/25 09:25 Senna/Docusate Sodium Tablet PO 1 tab BID LAKSHMI Administration Umeclidinium [place] 1 puff 07/10/25 09:00 07/13/25 09:43 Umeclidinium [place] 62.5 Mcg Ellipta INHALATION 1 puff DAILY LAKSHMI Administration Radiology Results: ITS Impressions Abdomen/Pelvis CT 07/09/25 18:06 IMPRESSION: No acute abnormality is noted in the abdomen and pelvis. Ventral wall hernia containing small bowel loops. There is no bowel obstruction. Fat-containing left inguinal hernia. All CT scans at this facility are performed using low dose modulation techniques as appropriate to perform exam including the following: automated exposure control; use of iterative reconstruction technique; adjustment of the mA and/or kV according to patient size (this includes techniques or standardized protocols for targeted exams where dose is matched to indication/reason for exam). Chest X-Ray 07/12/25 15:11 Impression: No acute cardiopulmonary abnormality. Labs Labs: Laboratory Results - last 24 hr 07/12/25 07/12/25 07/13/25 16:22 21:24 05:24 WBC 10.7 H RBC 3.54 L Hgb 9.3 L Hct 31.5 L MCV 89.0 MCH 26.3 MCHC 29.5 L RDW 18.5 H Plt Count 159 MPV 13.0 H Immature Gran % (Auto) 0.5 Neut % (Auto) 80.1 H Lymph % (Auto) 5.3 L [place] % (Auto) 12.5 H Eos % (Auto) 1.3 Baso % (Auto) 0.3 Lymph # (Auto) 0.57 L [place] # (Auto) 1.3 H Eos # (Auto) 0.1 Baso # (Auto) 0.0 Abs Immat Gran (auto) 0.05 H Absolute Neuts (auto) 8.6 H Absolute Nucleated RBC 0.020 H Band Neutrophils % Not Reportable Nucleated RBC % 0.2 Platelet Estimate Adequate % Immature Plt Fraction 11.5 H Polychromasia 1+ Hypochromasia 2+ Anisocytosis 1+ Target Cells 1+ Lucy Cells 1+ Schistocytes None seen Sodium 135 L Potassium 4.0 Chloride 99 Carbon Dioxide 29 Anion Gap 7 BUN 34 H Creatinine 1.52 H Estim Creat Clear Calc 41 Estimated GFR 46 L Glucose 196 H POC Capillary Glucose 214 H 125 H Calcium 8.1 L Magnesium 2.3 Total Bilirubin 0.4 AST 21 ALT 13 Alkaline Phosphatase 126 Total Protein 6.0 L Albumin 3.4 L 07/13/25 07/13/25 08:08 11:44 WBC RBC Hgb Hct MCV MCH MCHC RDW Plt Count MPV Immature Gran % (Auto) Neut % (Auto) Lymph % (Auto) [place] % (Auto) Eos % (Auto) Baso % (Auto) Lymph # (Auto) [place] # (Auto) Eos # (Auto) Baso # (Auto) Abs Immat Gran (auto) Absolute Neuts (auto) Absolute Nucleated RBC Band Neutrophils % Nucleated RBC % Platelet Estimate % Immature Plt Fraction Polychromasia Hypochromasia Anisocytosis Target Cells Lucy Cells Schistocytes Sodium Potassium Chloride Carbon Dioxide Anion Gap BUN Creatinine Estim Creat Clear Calc Estimated GFR Glucose POC Capillary Glucose 197 H 165 H Calcium Magnesium Total Bilirubin AST ALT Alkaline Phosphatase Total Protein Albumin
[2025-07-13] MEDS: ACETAMINOPHEN 325 MG TABLET 650 MG PO (14:59)
--- NOTE | 2025-07-13 16:34 | PC.NURSE ---
When I was speaking with pt he inquired if he had been scanned for a stroke on this admission. I said no and he then c/o having a hard time finding words and garbled speech. We discussed that being left over from a previous stroke but he relays it seems worse and feels like his left arm is weaker too. Fidel notified of these complaints.
[2025-07-13] MEDS: AMITRIPTYLINE HCL 25 MG TABLET PO (20:24)
[2025-07-13] MEDS: ATORVASTATIN 40 MG TABLET 80 MG PO (20:27)
[2025-07-13] MEDS: INSULIN GLARGINE (*BKC) 100 UNITS/ML 15 UNITS SUB-Q (20:48)
[2025-07-14] VITALS (19 sets, daily range): BP systolic 90–115; BP diastolic 50–74; PULSE 64–124; RESP 16–20; TEMP 36.4–36.8; O2SAT 80–100
[2025-07-14] MEDS: IPRATROPIUM 0.5 MG/ALBUTEROL SULFATE 2.5 MG (BASE) AMPUL.NEB 3 ML INHALATION ×4 (02:10→19:49)
[2025-07-14] MEDS: ARTIFICIAL TEARS OPHTH SOLN 15 ML BOTTLE 1 DROP EACH EYE ×4 (02:20→20:00)
[2025-07-14 05:01] LABS: Hematocrit 31.8 % (42.0-52.0); Hemoglobin 9.4 g/dL (14.0-18.0); Immature Granulocyte Percent A 0.4 % (0-0.5); Lymphocytes Absolute Auto 0.96 K/mm3 (0.9-3.2); Mean Corpuscular HGB Conc 29.6 g/dl (32-36); Mean Corpuscular Hemoglobin 25.9 pg (26-34); Mean Corpuscular Volume 87.6 fl (80-100); Nucleated Red Blood Cells Absolute Auto 0.000 K/mm3 (0.0-0.012); Nucleated Red Blood Cells Perc 0.0 % (0.0-0.2); Platelet Count Result 161 k/mm3 (150-375); Red Blood Count 3.63 M/mm3 (4.6-6.20); White Blood Count 8.5 K/mm3 (4.5-10.0)
[2025-07-14 05:25] LABS: Alanine Aminotransferase 13 U/L (6-50); Albumin Level 3.5 g/dL (3.5-5.1); Alkaline Phosphatase 137 U/L (38-126); Anion Gap 6 mmol/L (4-12); Aspartate Amino Transferase 23 U/L (17-59); Bilirubin,Total 0.5 mg/dL (0.2-1.3); Blood Urea Nitrogen 41 mg/dL (9-20); Calcium 8.4 mg/dL (8.4-10.2); Carbon Dioxide 32 mmol/L (22-30); Chloride 98 mmol/L (98-107); Estimated CRCL calculation 32 ml/min; Estimated Glomerular Filt Rate 34; Glucose 147 mg/dL (65-110); Magnesium 2.4 mg/dL (1.6-2.3); Potassium 3.9 mmol/L (3.4-5.0); Sodium 136 mmol/L (137-145); Total Protein 6.3 g/dL (6.3-8.2)
[2025-07-14 05:44] LABS: Anisocytosis 1+; Burr Cells 1+; Hypochromasia 1+; Ovalocytes 1+; Poikilocytosis 1+; Schistocytes Rare
[2025-07-14] MEDS: UMECLIDINIUM BROMIDE 62.5 MCG ELLIPTA 1 PUFF INHALATION (08:05)
[2025-07-14] MEDS: FLUTICASONE/SALMETEROL 115-21 MCG INHALER 1 PUFF 2 PUFF INHALATION ×2 (08:05→19:48)
[2025-07-14] MEDS: SENNA/DOCUSATE SODIUM TABLET 1 TAB PO (09:47)
[2025-07-14] MEDS: FOLIC ACID 1 MG TABLET PO (09:47)
[2025-07-14] MEDS: LACTULOSE 20 GM/30 ML UDC PO (09:47)
[2025-07-14] MEDS: EMPAGLIFLOZIN 10 MG TABLET BY MOUTH (09:47)
[2025-07-14] MEDS: cycloSPORINE 0.4 ML OPHTH SOLUTION 1 DROP EACH EYE ×2 (09:47→19:59)
[2025-07-14] MEDS: PANTOPRAZOLE 40 MG TABLET PO ×2 (09:47→20:00)
[2025-07-14] MEDS: PREGABALIN (*CRX) 50 MG CAPSULE 200 MG PO ×2 (09:47→18:11)
[2025-07-14] MEDS: INSULIN ASPART (*BKC) 100 UNITS/ML 6 UNITS SUB-Q ×3 (09:49→19:24)
[2025-07-14] MEDS: NICOTINE (*PBKC) 14 MG PATCH 1 PATCH TRANSDERM (09:49)
[2025-07-14] MEDS: INSULIN ASPART (*BKC) 100 UNITS/ML SUB-Q (13:37)
[2025-07-14] MEDS: SODIUM CHLORIDE 0.9% IV 500 ML 999 ML IV CONT (14:50)
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
--- NOTE | 2025-07-14 16:20 | PM.IMPN ---
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 use Diabetes mellitus complication status: without complication Qualified Code(s): E11.9 - Type 2 diabetes mellitus without complications; Z79.4 - terminal carman (current) use of insulin Code(s): E11.9 - Type 2 diabetes mellitus without complications Status: Chronic (5) HTN (hypertension): Qualifiers: Hypertension type: primary hypertension Qualified Code(s): I10 - Essential (primary) hypertension Code(s): I10 - Essential (primary) hypertension Status: Chronic (6) COPD (chronic obstructive pulmonary disease): Qualifiers: COPD type: unspecified COPD Qualified Code(s): J44.9 - Chronic obstructive pulmonary disease, unspecified Code(s): J44.9 - Chronic obstructive pulmonary disease, unspecified Status: Chronic Plan this is a 69-year-old male who presents Here from [facility] via EMS on 07/09 for further evaluation of low hemoglobin. Per staff reported to EMS patient was more confused yesterday which prompted repeat labs and urine sample. Labs resulted today showing hemoglobin of 4. Patient was reporting dizziness as well as fatigue. Additionally he also had new dark tarry stool ongoing for few months. He has history of atrial fibrillation and had been on Pradaxa. He was last hospitalized in January of 2025 once found to be anemic with a hemoglobin of 5.4 was transfused underwent upper and lower scope which was significant for internal hemorrhoids and diverticulosis. Initial vital sign at presentation: 98.2? F, HR 64, R 19, 106/63, and 96% on RA. ED workup showed: No leukocytosis, hemoglobin 3.8, MCV within normal limits, MCHC 27.3, platelet count 133, INR 2.5, no significant electrolyte derangements, creatinine 1.25 and GFR 57, glucose 129, iron 19, TIBC 385,% saturation 5%, UA showed 3+ glucose otherwise unremarkable. CXR showed mild CHF. CT of the abdomen/pelvis showed no acute abnormality, ventral wall hernia containing small bowel loops without obstruction, fat containing left inguinal hernia. EKG showed sinus rhythm, rate 64, borderline right axis deviation. Anticoagulation was held patient underwent transfusion GI was consulted underwent EGD 07/10/2020 showed esophageal ulcer without bleeding hiatal gastric erosions. Patient On PPI Small bowel capsule endoscopy to be planned as an outpatient basis this is remaining of the small bowel. Will check with GI when they are okay with resuming anticoagulation Hematology oncology has been consulted. Treated with IV Venofer and folic acid. Choking episode will have speech see him. Chest x-ray dated repeat was clear speech therapy evaluated the patient and cleared for oral diet. Mild hematuria noted per nursing staff. Will monitor. Atrial fibrillation on Pradaxa which is on hold hypotension: hold bp meds. ivf infusion today. will rehceck and monitor. History of CVA COPD Hypertension Type 2 diabetes on insulin Code Status: Full code Subjective Date/time seen: 07/14/25 16:20 Interval history: No overnight events. Feels okay. Later this afternoon is blood pressure went low. Received IV fluid. Review of Systems Review of Systems: All systems reviewed & are unremarkable except as noted in HPI and below Exam Narrative: Patient is comfortable, NAD HEENT: eyes are clear and none icteric LUNGS:CTA HEART: RR S1S2 ABD: BS+, Soft and nontender Lower extremities: no edema SKIN: nonjaundiced Neuro: grossly intact. Objective Data Vital Signs Vital Signs: Vital Signs - 24 hr 07/13/25 20:00 07/13/25 20:24 07/13/25 20:35 Temperature Pulse Rate 71 80 92 Respiratory Rate 20 Blood Pressure Pulse Oximetry Oxygen Delivery 07/13/25 20:44 07/13/25 21:46 07/14/25 00:00 Temperature 98.1 F Pulse Rate 96 67 83 Respiratory Rate 20 20 Blood Pressure 102/80 Pulse Oximetry 95 Oxygen Delivery 07/14/25 02:11 07/14/25 04:00 07/14/25 06:00 Temperature 97.6 F Pulse Rate 96 64 65 Respiratory Rate 18 20 Blood Pressure 103/74 Pulse Oximetry 99 Oxygen Delivery 07/14/25 08:00 07/14/25 08:00 07/14/25 08:07 Temperature Pulse Rate 98 100 Respiratory Rate 20 Blood Pressure Pulse Oximetry Oxygen Delivery Room Air 07/14/25 08:17 07/14/25 09:48 07/14/25 12:00 Temperature Pulse Rate 104 H 87 83 Respiratory Rate 20 Blood Pressure Pulse Oximetry Oxygen Delivery 07/14/25 13:39 07/14/25 14:00 07/14/25 15:33 Temperature 97.9 F Pulse Rate 124 H 124 H Respiratory Rate 16 Blood Pressure 90/50 L 90/52 L 95/52 L Pulse Oximetry 80 L Oxygen Delivery 07/14/25 15:54 07/14/25 15:55 Temperature Pulse Rate 97 96 Respiratory Rate 20 20 Blood Pressure Pulse Oximetry Oxygen Delivery Intake/Output Intake/Output: Intake & Output 07/11/25 07/12/25 07/13/25 07/14/25 23:59 23:59 23:59 23:59 Intake Total 2550 1420 1890 462 Output Total 1050 2600 1300 1000 Balance 1500 -1180 590 538 Meds/Results Medications: Active Medications Generic Name Dose Route Start Last Admin Trade Name Freq PRN Reason Stop Dose Admin Acetaminophen 650 mg 07/09/25 21:35 07/13/25 14:59 Acetaminophen 325 Mg Tablet PO 650 mg Q6H PRN Administration fever or pain rated 1-3 Albuterol 2 puff 07/11/25 12:43 Albuterol Sulfate (*Sp) Aerosol 1 Puff INHALATION Q6HRT PRN Shortness Of Breath Or Wheezing Albuterol/Ipratropium 3 ml 07/10/25 02:00 07/14/25 15:12 Ipratropium 0.5 Mg/Albuterol Sulfate 2.5 Mg (Base) Ampul.Neb 3 Ml INHALATION 3 ml Q6HRT LAKSHMI Administration Amitriptyline HCl 25 mg 07/09/25 21:45 07/13/25 20:24 Amitriptyline Hcl 25 Mg Tablet PO 25 mg HS LAKSHMI Administration Amlodipine Besylate 5 mg 07/10/25 09:00 07/14/25 09:47 Amlodipine Besylate 5 Mg Tablet PO 5 mg DAILY LAKSHMI Administration Artificial Tears 1 drop 07/09/25 22:00 07/14/25 16:15 Artificial Tears Ophth Soln 15 Ml Bottle EACH EYE Not Given Q4H LAKSHMI Atorvastatin Calcium 80 mg 07/09/25 21:45 07/13/25 20:27 Atorvastatin 40 Mg Tablet PO 80 mg HS LAKSHMI Administration Buspirone HCl 10 mg 07/10/25 09:00 07/14/25 09:47 Buspirone Hcl 10 Mg Tablet PO 10 mg DAILY LAKSHMI Administration Carvedilol 25 mg 07/09/25 21:35 07/14/25 09:48 Carvedilol 25 Mg Tablet PO 25 mg Q12HR LAKSHMI Administration Cyclosporine 1 drop 07/09/25 21:35 07/14/25 09:47 Cyclosporine 0.4 Ml Ophth Solution EACH EYE 1 drop Q12HR LAKSHMI Administration Dextrose 12.5 gm 07/09/25 20:19 Dextrose 50% 25 Gm/50 Ml Syringe IV PUSH PRN PRN Hypoglycemia Protocol Diclofenac Sodium 1 applic 07/11/25 14:12 Diclofenac Sodium 1% 100 Gm Gel (*Bkc) TOPICAL BID PRN joint pain Empagliflozin 10 mg 07/12/25 09:00 07/14/25 09:47 Empagliflozin 10 Mg Tablet BY MOUTH 10 mg DAILY LAKSHMI Administration Folic Acid 1 mg 07/11/25 09:00 07/14/25 09:47 Folic Acid 1 Mg Tablet PO 1 mg DAILY LAKSHMI Administration Furosemide 40 mg 07/10/25 09:00 07/13/25 20:24 Furosemide 40 Mg Tablet PO 40 mg On Hold: 07/14/25 07:40 Q12HR LAKSHMI Administration Glucagon 1 mg 07/09/25 20:19 Glucagon For Inj 1 Mg Vial IM PRN PRN Hypoglycemia Protocol Glucose 15 gm 07/09/25 20:19 Glucose Oral Gel 15 Gm Of Glucse In 37.5 Gm Tube PO PRN PRN Hypoglycemia Protocol Dextrose 1,000 mls @ 100 mls/hr 07/09/25 20:19 Dextrose 5% 1,000 Ml IVPB PRN PRN Hypoglycemia Protocol Insulin Aspart 2 - 5 units 07/10/25 08:00 07/14/25 13:37 Insulin Aspart (*Bkc) 100 Units/Ml SUB-Q 3 units TIDWM LAKSHMI Administration Protocol Insulin Aspart 6 units 07/11/25 17:00 07/14/25 13:36 Insulin Aspart (*Bkc) 100 Units/Ml SUB-Q 6 units TIDWM LAKSHMI Administration Insulin Glargine 15 units 07/11/25 21:00 07/13/25 20:48 Insulin Glargine (*Bkc) 100 Units/Ml SUB-Q 15 units HS LAKSHMI Administration Lactulose 20 gm 07/10/25 09:00 07/14/25 09:47 Lactulose 20 Gm/30 Ml Udc PO 20 gm DAILY LAKSHMI Administration Losartan Potassium 100 mg 07/10/25 09:00 07/13/25 09:25 Losartan Potassium 100 Mg Tablet PO 100 mg On Hold: 07/14/25 07:40 DAILY LAKSHMI Administration Methocarbamol 750 mg 07/09/25 21:35 07/13/25 14:58 Methocarbamol 750 Mg Tablet PO 750 mg Q6H PRN Administration postilaminectomy Nicotine 1 patch 07/09/25 21:50 07/14/25 09:49 Nicotine (*Pbkc) 14 Mg Patch TRANSDERM 1 patch DAILY LAKSHMI Administration Oxycodone HCl 5 mg 07/09/25 21:35 07/13/25 20:27 Oxycodone Hcl (*Crx) 5 Mg Tab Ir PO 5 mg Q8H PRN Administration PAIN RATED 7-10 Pantoprazole Sodium 40 mg 07/10/25 21:00 07/14/25 09:47 Pantoprazole 40 Mg Tablet PO 40 mg Q12HR LAKSHMI Administration Polyethylene Glycol 17 gm 07/10/25 09:00 07/14/25 09:47 Polyethylene Glycol 3350 17 Gm Powd.Pack PO 17 gm DAILY LAKSHMI Administration Pregabalin 200 mg 07/09/25 21:50 07/14/25 09:47 Pregabalin (*Crx) 50 Mg Capsule PO 200 mg BID LAKSHMI Administration Fluticasone/Salmeterol 2 puff 07/10/25 08:00 07/14/25 08:05 Fluticasone/Salmeterol 115-21 Mcg Inhaler 1 Puff INHALATION 2 puff Q12HRT LAKSHMI Administration Senna/Docusate Sodium 1 tab 07/10/25 09:00 07/14/25 09:47 Senna/Docusate Sodium Tablet PO 1 tab BID LAKSHMI Administration Umeclidinium [place] 1 puff 07/10/25 09:00 07/14/25 08:05 Umeclidinium [place] 62.5 Mcg Ellipta INHALATION 1 puff DAILY LAKSHMI Administration Radiology Results: ITS Impressions Abdomen/Pelvis CT 07/09/25 18:06 IMPRESSION: No acute abnormality is noted in the abdomen and pelvis. Ventral wall hernia containing small bowel loops. There is no bowel obstruction. Fat-containing left inguinal hernia. All CT scans at this facility are performed using low dose modulation techniques as appropriate to perform exam including the following: automated exposure control; use of iterative reconstruction technique; adjustment of the mA and/or kV according to patient size (this includes techniques or standardized protocols for targeted exams where dose is matched to indication/reason for exam). Chest X-Ray 07/12/25 15:11 Impression: No acute cardiopulmonary abnormality. Head CT 07/13/25 17:05 Impression: 1.No acute intracranial abnormality. Labs Labs: Laboratory Results - last 24 hr 07/10/25 07/13/25 07/13/25 20:30 16:40 20:48 WBC RBC Hgb Hct MCV MCH MCHC RDW Plt Count MPV Immature Gran % (Auto) Neut % (Auto) Lymph % (Auto) [place] % (Auto) Eos % (Auto) Baso % (Auto) Lymph # (Auto) [place] # (Auto) Eos # (Auto) Baso # (Auto) Abs Immat Gran (auto) Absolute Neuts (auto) Absolute Nucleated RBC Band Neutrophils % Nucleated RBC % Platelet Estimate Hypochromasia Poikilocytosis Anisocytosis Ovalocytes [place] Cells Schistocytes Hemoglobin A 97.0 Hemoglobin A2 2.2 Hemoglobin F 0.8 Hemoglobin S 0.0 Hgb ELP Interp Comment Sodium Potassium Chloride Carbon Dioxide Anion Gap BUN Creatinine Estim Creat Clear Calc Estimated GFR Glucose POC Capillary Glucose 152 H 131 H Calcium Magnesium Total Bilirubin AST ALT Alkaline Phosphatase Total Protein Albumin 07/14/25 07/14/25 07/14/25 04:48 07:31 11:26 WBC 8.5 RBC 3.63 L Hgb 9.4 L Hct 31.8 L MCV 87.6 MCH 25.9 L MCHC 29.6 L RDW 18.5 H Plt Count 161 MPV 11.8 H Immature Gran % (Auto) 0.4 Neut % (Auto) 75.3 H Lymph % (Auto) 11.4 L [place] % (Auto) 10.4 H Eos % (Auto) 2.1 Baso % (Auto) 0.4 Lymph # (Auto) 0.96 [place] # (Auto) 0.9 H Eos # (Auto) 0.2 Baso # (Auto) 0.0 Abs Immat Gran (auto) 0.03 Absolute Neuts (auto) 6.4 Absolute Nucleated RBC 0.000 Band Neutrophils % Not Reportable Nucleated RBC % 0.0 Platelet Estimate Adequate Hypochromasia 1+ Poikilocytosis 1+ Anisocytosis 1+ Ovalocytes 1+ [place] Cells 1+ Schistocytes Rare Hemoglobin A Hemoglobin A2 Hemoglobin F Hemoglobin S Hgb ELP Interp Sodium 136 L Potassium 3.9 Chloride 98 Carbon Dioxide 32 H Anion Gap 6 BUN 41 H Creatinine 1.95 H Estim Creat Clear Calc 32 Estimated GFR 34 L Glucose 147 H POC Capillary Glucose 151 H 273 H Calcium 8.4 Magnesium 2.4 H Total Bilirubin 0.5 AST 23 ALT 13 Alkaline Phosphatase 137 H Total Protein 6.3 Albumin 3.5
[2025-07-14 17:27] LABS: Anion Gap 5 mmol/L (4-12); Blood Urea Nitrogen 43 mg/dL (9-20); Calcium 8.2 mg/dL (8.4-10.2); Carbon Dioxide 28 mmol/L (22-30); Chloride 102 mmol/L (98-107); Estimated CRCL calculation 34 ml/min; Estimated Glomerular Filt Rate 37; Glucose 69 mg/dL (65-110); Potassium 4.0 mmol/L (3.4-5.0); Sodium 135 mmol/L (137-145)
[2025-07-14] MEDS: SODIUM CHLORIDE 0.9% IV 1,000 ML 75 ML IV CONT (18:06)
[2025-07-14] MEDS: oxyCODONE HCL (*CRX) 5 MG TAB IR PO (19:59)
[2025-07-14] MEDS: ATORVASTATIN 40 MG TABLET 80 MG PO (19:59)
[2025-07-14] MEDS: AMITRIPTYLINE HCL 25 MG TABLET PO (20:00)
[2025-07-14] MEDS: INSULIN GLARGINE (*BKC) 100 UNITS/ML 15 UNITS SUB-Q (22:05)
[2025-07-15] VITALS (14 sets, daily range): BP systolic 100–110; BP diastolic 62–74; PULSE 60–109; RESP 18–20; TEMP 36.3–36.7; O2SAT 94–100
[2025-07-15] MEDS: IPRATROPIUM 0.5 MG/ALBUTEROL SULFATE 2.5 MG (BASE) AMPUL.NEB 3 ML INHALATION ×3 (01:05→14:57)
[2025-07-15] MEDS: SODIUM CHLORIDE 0.9% IV 1,000 ML 75 ML IV CONT (05:11)
[2025-07-15] MEDS: ARTIFICIAL TEARS OPHTH SOLN 15 ML BOTTLE 1 DROP EACH EYE ×4 (05:11→17:42)
[2025-07-15] MEDS: oxyCODONE HCL (*CRX) 5 MG TAB IR PO (06:03)
[2025-07-15 07:09] LABS: Hematocrit 30.3 % (42.0-52.0); Hemoglobin 8.9 g/dL (14.0-18.0); Immature Granulocyte Percent A 0.5 % (0-0.5); Immature Platelet Fraction Pct 11.8 % (0.9-11.2); Lymphocytes Absolute Auto 0.78 K/mm3 (0.9-3.2); Mean Corpuscular HGB Conc 29.4 g/dl (32-36); Mean Corpuscular Hemoglobin 25.6 pg (26-34); Mean Corpuscular Volume 87.1 fl (80-100); Nucleated Red Blood Cells Absolute Auto 0.000 K/mm3 (0.0-0.012); Nucleated Red Blood Cells Perc 0.0 % (0.0-0.2); Platelet Count Result 155 k/mm3 (150-375); Red Blood Count 3.48 M/mm3 (4.6-6.20); White Blood Count 8.4 K/mm3 (4.5-10.0)
[2025-07-15 07:26] LABS: Alanine Aminotransferase 13 U/L (6-50); Albumin Level 3.4 g/dL (3.5-5.1); Alkaline Phosphatase 132 U/L (38-126); Anion Gap 5 mmol/L (4-12); Aspartate Amino Transferase 21 U/L (17-59); Bilirubin,Total 0.3 mg/dL (0.2-1.3); Blood Urea Nitrogen 37 mg/dL (9-20); Calcium 8.3 mg/dL (8.4-10.2); Carbon Dioxide 30 mmol/L (22-30); Chloride 101 mmol/L (98-107); Estimated CRCL calculation 45 ml/min; Estimated Glomerular Filt Rate 51; Glucose 159 mg/dL (65-110); Magnesium 2.4 mg/dL (1.6-2.3); Potassium 4.3 mmol/L (3.4-5.0); Sodium 136 mmol/L (137-145); Total Protein 6.1 g/dL (6.3-8.2)
[2025-07-15 07:34] LABS: Anisocytosis 1+; Burr Cells 1+; Hypochromasia 1+; Poikilocytosis 1+; Polychromasia 1+; Schistocytes Rare
[2025-07-15] MEDS: FLUTICASONE/SALMETEROL 115-21 MCG INHALER 1 PUFF 2 PUFF INHALATION (08:10)
[2025-07-15] MEDS: UMECLIDINIUM BROMIDE 62.5 MCG ELLIPTA 1 PUFF INHALATION (08:18)
[2025-07-15] MEDS: PREGABALIN (*CRX) 50 MG CAPSULE 200 MG PO ×2 (09:27→17:30)
[2025-07-15] MEDS: FOLIC ACID 1 MG TABLET PO (09:27)
[2025-07-15] MEDS: LACTULOSE 20 GM/30 ML UDC PO (09:27)
[2025-07-15] MEDS: EMPAGLIFLOZIN 10 MG TABLET BY MOUTH (09:27)
[2025-07-15] MEDS: SENNA/DOCUSATE SODIUM TABLET 1 TAB PO ×2 (09:28→17:31)
[2025-07-15] MEDS: cycloSPORINE 0.4 ML OPHTH SOLUTION 1 DROP EACH EYE (09:28)
[2025-07-15] MEDS: PANTOPRAZOLE 40 MG TABLET PO (09:28)
[2025-07-15] MEDS: NICOTINE (*PBKC) 14 MG PATCH 1 PATCH TRANSDERM (09:28)
[2025-07-15] MEDS: INSULIN ASPART (*BKC) 100 UNITS/ML 6 UNITS SUB-Q ×3 (09:30→17:32)
[2025-07-15] MEDS: INSULIN ASPART (*BKC) 100 UNITS/ML SUB-Q (12:39)
--- NOTE | 2025-07-15 13:13 | P.PNIM_ITS ---
Progress Note: A&P Assessment and Plan (1) Acute on chronic anemia: Code(s): D64.9 - Anemia, unspecified Status: Acute (2) Melena: Code(s): K92.1 - Melena Status: Acute (3) Atrial fibrillation: Qualifiers: Atrial fibrillation type: paroxysmal Qualified Code(s): I48.0 - Paroxysmal atrial fibrillation Code(s): I48.91 - Unspecified atrial fibrillation Status: Chronic (4) Diabetes: Qualifiers: Diabetes mellitus type: type 2 Diabetes mellitus retirement insulin use: with technician terminal and repeater use Diabetes mellitus complication status: without complication Qualified Code(s): E11.9 - Type 2 diabetes mellitus without complications; Z79.4 - technician terminal and repeater (current) use of insulin Code(s): E11.9 - Type 2 diabetes mellitus without complications Status: Chronic (5) HTN (hypertension): Qualifiers: Hypertension type: primary hypertension Qualified Code(s): I10 - Essential (primary) hypertension Code(s): I10 - Essential (primary) hypertension Status: Chronic (6) COPD (chronic obstructive pulmonary disease): Qualifiers: COPD type: unspecified COPD Qualified Code(s): J44.9 - Chronic obstructive pulmonary disease, unspecified Code(s): J44.9 - Chronic obstructive pulmonary disease, unspecified Status: Chronic Plan this is a 69-year-old male who presents Here from [facility] via EMS on 07/09 for further evaluation of low hemoglobin. Per staff reported to EMS patient was more confused yesterday which prompted repeat labs and urine sample. Labs resulted today showing hemoglobin of 4. Patient was reporting dizziness as well as fatigue. Additionally he also had new dark tarry stool ongoing for few months. He has history of atrial fibrillation and had been on Pradaxa. He was last hospitalized in January of 2025 once found to be anemic with a hemoglobin of 5.4 was transfused underwent upper and lower scope which was significant for internal hemorrhoids and diverticulosis. Initial vital sign at presentation: 98.2? F, HR 64, R 19, 106/63, and 96% on RA. ED workup showed: No leukocytosis, hemoglobin 3.8, MCV within normal limits, MCHC 27.3, platelet count 133, INR 2.5, no significant electrolyte derangements, creatinine 1.25 and GFR 57, glucose 129, iron 19, TIBC 385,% saturation 5%, UA showed 3+ glucose otherwise unremarkable. CXR showed mild CHF. CT of the abdomen/pelvis showed no acute abnormality, ventral wall hernia containing small bowel loops without obstruction, fat containing left inguinal hernia. EKG showed sinus rhythm, rate 64, borderline right axis deviation. Anticoagulation was held patient underwent transfusion GI was consulted underwent EGD 07/10/2020 showed esophageal ulcer without bleeding hiatal gastric erosions. Patient On PPI Small bowel capsule endoscopy to be planned as an outpatient basis this is remaining of the small bowel. Will check with GI when they are okay with resuming anticoagulation Hematology oncology has been consulted. Treated with IV Venofer and folic acid. Choking episode. Speech therapy evaluated Chest x-ray dated repeat was clear speech therapy evaluated the patient and cleared for oral diet. Mild hematuria noted per nursing staff. Will monitor. Recheck again Atrial fibrillation on Pradaxa which is on hold hypotension: hold bp meds. ivf infusion received. Renal failure resolved. Mild SAYDA blood pressure meds on hold. Resolved now with IV fluid and treatment. History of CVA COPD Hypertension Type 2 diabetes on insulin Code Status: Full code Subjective Date/time seen: 07/15/25 13:13 Interval history: No overnight events. Complains of having some blood in the urine however nursing staff has not visualized. Labs reviewed. Discussed with niece over the phone. Review of Systems Review of Systems: All systems reviewed & are unremarkable except as noted in HPI and below Exam Narrative: Patient is comfortable, NAD HEENT: eyes are clear and none icteric LUNGS:CTA HEART: RR S1S2 ABD: BS+, Soft and nontender Lower extremities: no edema SKIN: nonjaundiced Neuro: grossly intact. Objective Data Vital Signs Vital Signs: Vital Signs - 24 hr 07/14/25 13:39 07/14/25 14:00 07/14/25 15:33 Temperature 97.9 F Pulse Rate 124 H 124 H Respiratory Rate 16 Blood Pressure 90/50 L 90/52 L 95/52 L Pulse Oximetry 80 L Oxygen Delivery Fraction of Inspired Oxygen 07/14/25 15:54 07/14/25 15:55 07/14/25 16:00 Temperature Pulse Rate 97 96 88 Respiratory Rate 20 20 Blood Pressure Pulse Oximetry Oxygen Delivery Fraction of Inspired Oxygen 07/14/25 19:49 07/14/25 19:54 07/14/25 19:59 Temperature Pulse Rate 100 100 100 Respiratory Rate 20 20 20 Blood Pressure Pulse Oximetry 92 Oxygen Delivery Room Air Fraction of Inspired Oxygen 21 07/14/25 20:00 07/14/25 20:28 07/15/25 00:00 Temperature 98.3 F Pulse Rate 70 99 Respiratory Rate 20 Blood Pressure 115/66 Pulse Oximetry 100 Oxygen Delivery Room Air Fraction of Inspired Oxygen 07/15/25 01:05 07/15/25 01:15 07/15/25 04:00 Temperature Pulse Rate 60 75 80 Respiratory Rate 20 20 Blood Pressure Pulse Oximetry Oxygen Delivery Fraction of Inspired Oxygen 07/15/25 06:00 07/15/25 08:08 07/15/25 08:08 Temperature 98.0 F Pulse Rate 81 71 71 Respiratory Rate 20 20 20 Blood Pressure 110/74 Pulse Oximetry 95 94 Oxygen Delivery Room Air Fraction of Inspired Oxygen 07/15/25 08:19 07/15/25 09:26 07/15/25 09:27 Temperature Pulse Rate 78 98 Respiratory Rate 20 Blood Pressure Pulse Oximetry Oxygen Delivery Room Air Fraction of Inspired Oxygen Intake/Output Intake/Output: Intake & Output 07/12/25 07/13/25 07/14/25 07/15/25 23:59 23:59 23:59 23:59 Intake Total 1420 9922 088 5159.2 Output Total 2600 1300 1450 900 Balance -1180 590 -568 371.2 Meds/Results Medications: Active Medications Generic Name Dose Route Start Last Admin Trade Name Freq PRN Reason Stop Dose Admin Acetaminophen 650 mg 07/09/25 21:35 07/13/25 14:59 Acetaminophen 325 Mg Tablet PO 650 mg Q6H PRN Administration fever or pain rated 1-3 Albuterol 2 puff 07/11/25 12:43 Albuterol Sulfate (*Sp) Aerosol 1 Puff INHALATION Q6HRT PRN Shortness Of Breath Or Wheezing Albuterol/Ipratropium 3 ml 07/10/25 02:00 07/15/25 08:07 Ipratropium 0.5 Mg/Albuterol Sulfate 2.5 Mg (Base) Ampul.Neb 3 Ml INHALATION 3 ml Q6HRT LAKSHMI Administration Amitriptyline HCl 25 mg 07/09/25 21:45 07/14/25 20:00 Amitriptyline Hcl 25 Mg Tablet PO 25 mg HS LAKSHMI Administration Amlodipine Besylate 5 mg 11/13/25 09:00 07/14/25 09:47 Amlodipine Besylate 5 Mg Tablet PO 5 mg On Hold: 07/14/25 16:23 DAILY LAKSHMI Administration Artificial Tears 1 drop 07/09/25 22:00 07/15/25 10:27 Artificial Tears Ophth Soln 15 Ml Bottle EACH EYE 1 drop Q4H LAKSHMI Administration Atorvastatin Calcium 80 mg 07/09/25 21:45 07/14/25 19:59 Atorvastatin 40 Mg Tablet PO 80 mg HS LAKSHMI Administration Buspirone HCl 10 mg 07/10/25 09:00 07/15/25 09:28 Buspirone Hcl 10 Mg Tablet PO 10 mg DAILY LAKSHMI Administration Carvedilol 25 mg 07/09/25 21:35 07/15/25 09:27 Carvedilol 25 Mg Tablet PO 25 mg Q12HR LAKSHMI Administration Cyclosporine 1 drop 07/09/25 21:35 07/15/25 09:28 Cyclosporine 0.4 Ml Ophth Solution EACH EYE 1 drop Q12HR LAKSHMI Administration Dextrose 12.5 gm 07/09/25 20:19 Dextrose 50% 25 Gm/50 Ml Syringe IV PUSH PRN PRN Hypoglycemia Protocol Diclofenac Sodium 1 applic 07/11/25 14:12 Diclofenac Sodium 1% 100 Gm Gel (*Bkc) TOPICAL BID PRN joint pain Empagliflozin 10 mg 07/12/25 09:00 07/15/25 09:27 Empagliflozin 10 Mg Tablet BY MOUTH 10 mg DAILY LAKSHMI Administration Folic Acid 1 mg 07/11/25 09:00 07/15/25 09:27 Folic Acid 1 Mg Tablet PO 1 mg DAILY LAKSHMI Administration Furosemide 40 mg 07/10/25 09:00 07/13/25 20:24 Furosemide 40 Mg Tablet PO 40 mg On Hold: 07/14/25 07:40 Q12HR LAKSHMI Administration Glucagon 1 mg 07/09/25 20:19 Glucagon For Inj 1 Mg Vial IM PRN PRN Hypoglycemia Protocol Glucose 15 gm 07/09/25 20:19 Glucose Oral Gel 15 Gm Of Glucse In 37.5 Gm Tube PO PRN PRN Hypoglycemia Protocol Dextrose 1,000 mls @ 100 mls/hr 07/09/25 20:19 Dextrose 5% 1,000 Ml IVPB PRN PRN Hypoglycemia Protocol Insulin Aspart 2 - 5 units 07/10/25 08:00 07/15/25 12:39 Insulin Aspart (*Bkc) 100 Units/Ml SUB-Q 4 units TIDWM LAKSHMI Administration Protocol Insulin Aspart 6 units 07/11/25 17:00 07/15/25 12:40 Insulin Aspart (*Bkc) 100 Units/Ml SUB-Q 6 units TIDWM LAKSHMI Administration Insulin Glargine 15 units 07/11/25 21:00 07/14/25 22:05 Insulin Glargine (*Bkc) 100 Units/Ml SUB-Q 15 units HS LAKSHMI Administration Lactulose 20 gm 07/10/25 09:00 07/15/25 09:27 Lactulose 20 Gm/30 Ml Udc PO 20 gm DAILY LAKSHMI Administration Losartan Potassium 100 mg 07/10/25 09:00 07/13/25 09:25 Losartan Potassium 100 Mg Tablet PO 100 mg On Hold: 07/14/25 07:40 DAILY LAKSHMI Administration Methocarbamol 750 mg 07/09/25 21:35 07/13/25 14:58 Methocarbamol 750 Mg Tablet PO 750 mg Q6H PRN Administration postilaminectomy Nicotine 1 patch 07/09/25 21:50 07/15/25 09:28 Nicotine (*Pbkc) 14 Mg Patch TRANSDERM 1 patch DAILY LAKSHMI Administration Oxycodone HCl 5 mg 07/09/25 21:35 07/15/25 06:03 Oxycodone Hcl (*Crx) 5 Mg Tab Ir PO 5 mg Q8H PRN Administration PAIN RATED 7-10 Pantoprazole Sodium 40 mg 07/10/25 21:00 07/15/25 09:28 Pantoprazole 40 Mg Tablet PO 40 mg Q12HR LAKSHMI Administration Polyethylene Glycol 17 gm 07/10/25 09:00 07/15/25 09:27 Polyethylene Glycol 3350 17 Gm Powd.Pack PO 17 gm DAILY LAKSHMI Administration Pregabalin 200 mg 07/09/25 21:50 07/15/25 09:27 Pregabalin (*Crx) 50 Mg Capsule PO 200 mg BID LAKSHMI Administration Fluticasone/Salmeterol 2 puff 07/10/25 08:00 07/15/25 08:10 Fluticasone/Salmeterol 115-21 Mcg Inhaler 1 Puff INHALATION 2 puff Q12HRT LAKSHMI Administration Senna/Docusate Sodium 1 tab 07/10/25 09:00 07/15/25 09:28 Senna/Docusate Sodium Tablet PO 1 tab BID LAKSHMI Administration Umeclidinium [place] 1 puff 07/10/25 09:00 07/15/25 08:18 Umeclidinium [place] 62.5 Mcg Ellipta INHALATION 1 puff DAILY LAKSHMI Administration Radiology Results: ITS Impressions Abdomen/Pelvis CT 07/09/25 18:06 IMPRESSION: No acute abnormality is noted in the abdomen and pelvis. Ventral wall hernia containing small bowel loops. There is no bowel obstruction. Fat-containing left inguinal hernia. All CT scans at this facility are performed using low dose modulation techniques as appropriate to perform exam including the following: automated exposure control; use of iterative reconstruction technique; adjustment of the mA and/or kV according to patient size (this includes techniques or standardized protocols for targeted exams where dose is matched to indication/reason for exam). Chest X-Ray 07/12/25 15:11 Impression: No acute cardiopulmonary abnormality. Head CT 07/13/25 17:05 Impression: 1.No acute intracranial abnormality. Labs Labs: Laboratory Results - last 24 hr 07/10/25 07/14/25 07/14/25 20:30 16:17 17:11 WBC RBC Hgb Hct MCV MCH MCHC RDW Plt Count MPV Immature Gran % (Auto) Neut % (Auto) Lymph % (Auto) [place] % (Auto) Eos % (Auto) Baso % (Auto) Lymph # (Auto) [place] # (Auto) Eos # (Auto) Baso # (Auto) Abs Immat Gran (auto) Absolute Neuts (auto) Absolute Nucleated RBC Band Neutrophils % Nucleated RBC % Platelet Estimate % Immature Plt Fraction Polychromasia Hypochromasia Poikilocytosis Anisocytosis [place] Cells Schistocytes Hemoglobin A 97.0 Hemoglobin A2 2.2 Hemoglobin F 0.8 Hemoglobin S 0.0 Hgb ELP Interp Comment Sodium 135 L Potassium 4.0 Chloride 102 Carbon Dioxide 28 Anion Gap 5 BUN 43 H Creatinine 1.83 H Estim Creat Clear Calc 34 Estimated GFR 37 L Glucose 69 POC Capillary Glucose 110 H Calcium 8.2 L Magnesium Total Bilirubin AST ALT Alkaline Phosphatase Total Protein Albumin 07/14/25 07/15/25 07/15/25 21:37 06:28 08:07 WBC 8.4 RBC 3.48 L Hgb 8.9 L Hct 30.3 L MCV 87.1 MCH 25.6 L MCHC 29.4 L RDW 18.1 H Plt Count 155 MPV 12.4 H Immature Gran % (Auto) 0.5 Neut % (Auto) 78.6 H Lymph % (Auto) 9.3 L [place] % (Auto) 9.7 H Eos % (Auto) 1.7 Baso % (Auto) 0.2 Lymph # (Auto) 0.78 L [place] # (Auto) 0.8 H Eos # (Auto) 0.1 Baso # (Auto) 0.0 Abs Immat Gran (auto) 0.04 H Absolute Neuts (auto) 6.6 Absolute Nucleated RBC 0.000 Band Neutrophils % Not Reportable Nucleated RBC % 0.0 Platelet Estimate Adequate % Immature Plt Fraction 11.8 H Polychromasia 1+ Hypochromasia 1+ Poikilocytosis 1+ Anisocytosis 1+ Lucy Cells 1+ Schistocytes Rare Hemoglobin A Hemoglobin A2 Hemoglobin F Hemoglobin S Hgb ELP Interp Sodium 136 L Potassium 4.3 Chloride 101 Carbon Dioxide 30 Anion Gap 5 BUN 37 H Creatinine 1.37 H Estim Creat Clear Calc 45 Estimated GFR 51 L Glucose 159 H POC Capillary Glucose 146 H 149 H Calcium 8.3 L Magnesium 2.4 H Total Bilirubin 0.3 AST 21 ALT 13 Alkaline Phosphatase 132 H Total Protein 6.1 L Albumin 3.4 L 07/15/25 11:31 WBC RBC Hgb Hct MCV MCH MCHC RDW Plt Count MPV Immature Gran % (Auto) Neut % (Auto) Lymph % (Auto) [place] % (Auto) Eos % (Auto) Baso % (Auto) Lymph # (Auto) [place] # (Auto) Eos # (Auto) Baso # (Auto) Abs Immat Gran (auto) Absolute Neuts (auto) Absolute Nucleated RBC Band Neutrophils % Nucleated RBC % Platelet Estimate % Immature Plt Fraction Polychromasia Hypochromasia Poikilocytosis Anisocytosis Lucy Cells Schistocytes Hemoglobin A Hemoglobin A2 Hemoglobin F Hemoglobin S Hgb ELP Interp Sodium Potassium Chloride Carbon Dioxide Anion Gap BUN Creatinine Estim Creat Clear Calc Estimated GFR Glucose POC Capillary Glucose 316 H Calcium Magnesium Total Bilirubin AST ALT Alkaline Phosphatase Total Protein Albumin
--- NOTE | 2025-07-15 15:16 | PM.DS ---
DS: Admitting Diagnosis Discharge Date 07/15/2025 Admitting Diagnosis Melena DS: Discharge Diagnosis Discharge Diagnosis (1) Acute on chronic anemia: Code(s): D64.9 - Anemia, unspecified Status: Acute (2) Melena: Code(s): K92.1 - Melena Status: Acute (3) Atrial fibrillation: Qualifiers: Atrial fibrillation type: paroxysmal Qualified Code(s): I48.0 - Paroxysmal atrial fibrillation Code(s): I48.91 - Unspecified atrial fibrillation Status: Chronic (4) Diabetes: Qualifiers: Diabetes mellitus type: type 2 Diabetes mellitus long term care social worker insulin use: with long term care social worker use Diabetes mellitus complication status: without complication Qualified Code(s): E11.9 - Type 2 diabetes mellitus without complications; Z79.4 - ocean transportation intermediary (current) use of insulin Code(s): E11.9 - Type 2 diabetes mellitus without complications Status: Chronic (5) HTN (hypertension): Qualifiers: Hypertension type: primary hypertension Qualified Code(s): I10 - Essential (primary) hypertension Code(s): I10 - Essential (primary) hypertension Status: Chronic (6) COPD (chronic obstructive pulmonary disease): Qualifiers: COPD type: unspecified COPD Qualified Code(s): J44.9 - Chronic obstructive pulmonary disease, unspecified Code(s): J44.9 - Chronic obstructive pulmonary disease, unspecified Status: Chronic DS: Summary Hospital Course Hospital Course: This is a 69-year-old male who presents Here from [facility] via EMS on 07/09 for further evaluation of low hemoglobin. Per staff reported to EMS patient was more confused yesterday which prompted repeat labs and urine sample. Labs resulted today showing hemoglobin of 4. Patient was reporting dizziness as well as fatigue. Additionally he also had new dark tarry stool ongoing for few months. He has history of atrial fibrillation and had been on Pradaxa. He was last hospitalized in January of 2025 once found to be anemic with a hemoglobin of 5.4 was transfused underwent upper and lower scope which was significant for internal hemorrhoids and diverticulosis. Initial vital sign at presentation: 98.2? F, HR 64, R 19, 106/63, and 96% on RA. ED workup showed: No leukocytosis, hemoglobin 3.8, MCV within normal limits, MCHC 27.3, platelet count 133, INR 2.5, no significant electrolyte derangements, creatinine 1.25 and GFR 57, glucose 129, iron 19, TIBC 385,% saturation 5%, UA showed 3+ glucose otherwise unremarkable. CXR showed mild CHF. CT of the abdomen/pelvis showed no acute abnormality, ventral wall hernia containing small bowel loops without obstruction, fat containing left inguinal hernia. EKG showed sinus rhythm, rate 64, borderline right axis deviation. Anticoagulation was held patient underwent transfusion GI was consulted underwent EGD 07/10/2020 showed esophageal ulcer without bleeding hiatal gastric erosions. Patient On PPI Small bowel capsule endoscopy to be planned as an outpatient basis this is remaining of the small bowel. GI okay with resuming anticoagulation in 10 days Hematology oncology has been consulted. Treated with IV Venofer and folic acid. Follow-up with hematology as outpatient basis. Choking episode. Speech therapy evaluated Chest x-ray dated repeat was clear speech therapy evaluated the patient and cleared for oral diet. Mild hematuria noted per nursing staff. Will monitor. Remains negative Atrial fibrillation on Pradaxa which is on hold hypotension: hold bp meds. ivf infusion received. Renal failure resolved. Mild SAYDA blood pressure meds on hold. Resolved now with IV fluid and treatment. History of CVA COPD Hypertension Type 2 diabetes on insulin Code Status: Full code Time Spent with Patient Time attestation: Total time spent providing and/or coordinating discharge services: 45 minutes Exam Narrative: Patient is comfortable, NAD HEENT: eyes are clear and none icteric LUNGS:CTA HEART: RR S1S2 ABD: BS+, Soft and nontender Lower extremities: no edema SKIN: nonjaundiced Neuro: grossly intact. DS: Data Data Completed and Pending Labs on day of discharge: Labs from last 24 hours 07/15/25 07/15/25 07/15/25 11:31 08:07 06:28 WBC 8.4 RBC 3.48 L Hgb 8.9 L Hct 30.3 L MCV 87.1 MCH 25.6 L MCHC 29.4 L RDW 18.1 H Plt Count 155 MPV 12.4 H Immature Gran % (Auto) 0.5 Neut % (Auto) 78.6 H Lymph % (Auto) 9.3 L [place] % (Auto) 9.7 H Eos % (Auto) 1.7 Baso % (Auto) 0.2 Lymph # (Auto) 0.78 L [place] # (Auto) 0.8 H Eos # (Auto) 0.1 Baso # (Auto) 0.0 Abs Immat Gran (auto) 0.04 H Absolute Neuts (auto) 6.6 Absolute Nucleated RBC 0.000 Band Neutrophils % Not Reportable Nucleated RBC % 0.0 Platelet Estimate Adequate % Immature Plt Fraction 11.8 H Polychromasia 1+ Hypochromasia 1+ Poikilocytosis 1+ Anisocytosis 1+ [place] Cells 1+ Schistocytes Rare Sodium 136 L Potassium 4.3 Chloride 101 Carbon Dioxide 30 Anion Gap 5 BUN 37 H Creatinine 1.37 H Estim Creat Clear Calc 45 Estimated GFR 51 L Glucose 159 H POC Capillary Glucose 316 H 149 H Calcium 8.3 L Magnesium 2.4 H Total Bilirubin 0.3 AST 21 ALT 13 Alkaline Phosphatase 132 H Total Protein 6.1 L Albumin 3.4 L 07/14/25 07/14/25 07/14/25 21:37 17:11 16:17 WBC RBC Hgb Hct MCV MCH MCHC RDW Plt Count MPV Immature Gran % (Auto) Neut % (Auto) Lymph % (Auto) [place] % (Auto) Eos % (Auto) Baso % (Auto) Lymph # (Auto) [place] # (Auto) Eos # (Auto) Baso # (Auto) Abs Immat Gran (auto) Absolute Neuts (auto) Absolute Nucleated RBC Band Neutrophils % Nucleated RBC % Platelet Estimate % Immature Plt Fraction Polychromasia Hypochromasia Poikilocytosis Anisocytosis Lucy Cells Schistocytes Sodium 135 L Potassium 4.0 Chloride 102 Carbon Dioxide 28 Anion Gap 5 BUN 43 H Creatinine 1.83 H Estim Creat Clear Calc 34 Estimated GFR 37 L Glucose 69 POC Capillary Glucose 146 H 110 H Calcium 8.2 L Magnesium Total Bilirubin AST ALT Alkaline Phosphatase Total Protein Albumin Imaging Radiologist's impression: ITS Impressions Chest X-Ray 07/09/25 15:49 Impression: Mild CHF Abdomen/Pelvis CT 07/09/25 18:06 IMPRESSION: No acute abnormality is noted in the abdomen and pelvis. Ventral wall hernia containing small bowel loops. There is no bowel obstruction. Fat-containing left inguinal hernia. All CT scans at this facility are performed using low dose modulation techniques as appropriate to perform exam including the following: automated exposure control; use of iterative reconstruction technique; adjustment of the mA and/or kV according to patient size (this includes techniques or standardized protocols for targeted exams where dose is matched to indication/reason for exam). Chest X-Ray 07/12/25 15:11 Impression: No acute cardiopulmonary abnormality. Head CT 07/13/25 17:05 Impression: 1.No acute intracranial abnormality. Discharge Plan Discharge Attending physician on discharge: Mega Parra Consulting providers: Ivan Lacey Discharging Clinician: Mega Parra Anticipated Discharge Date/Time: 07/15/25 15:17 Patient Disposition: NH Alf/Asst Living Activity: as tolerated Diet: heart healthy and diabetic Discharge Instructions: Blood pressure medications are currently on hold due to borderline blood pressure. Resume when appropriate. Follow-up with PCP in 1 week. Accu-Cheks AC and HS Follow-up with GI for small-bowel capsule study that will be scheduled by GI Resume dabigatran in 10 days. continue skilled nursing protonix Patient Instructions: Antibiotic Form, How to Stop Smoking (ED) Patient Language: [place]araguan Stand Alone Forms: General Discharge Information, Assisted Discharge Follow-up/Referrals: Ivan Lacey MD [Physician, Hematology] - 4 Weeks Referral Note: call for appointment JanisEddy M.D. [Primary Care Provider] - 1 Week Jeromy Patel MD [Physician, Gastroenterology] - 1 Week Discharge Medications: New pantoprazole 40 mg Tablet,Delayed Release (Dr/Ec) 40 mg PO Q12HR Qty: 60 0RF folic acid 1 mg Tablet 1 mg PO DAILY Qty: 30 0RF Continued albuterol sulfate 2.5 mg /3 mL (0.083 %) solution for nebulization 2.5 mg continuous nebulization Q8H PRN (Reason: shortness of breath or wheezing) amitriptyline 25 mg tablet 25 mg PO HS Bucapsol 10 mg capsule 10 mg PO DAILY carvedilol 25 mg tablet 25 mg PO Q12H cyclosporine 0.05 % dropperette 1 drp EACH EYE Q12H diclofenac sodium 1 % gel 2 g topical BID Rx Instructions: apply to single elbow, wrist or hand; for hand includes palm/fingers/back of hand dapagliflozin propanediol [Farxiga] 5 mg tablet 5 mg PO DAILY fluticasone propion-salmeterol [Advair Diskus] 250-50 mcg/dose blister with device 1 inh inhalation Q12H Incruse Ellipta 62.5 mcg/actuation blister with device 1 inh inhalation DAILY methocarbamol 750 mg tablet 750 mg PO Q6H PRN (Reason: postilaminectomy) atorvastatin 80 mg tablet 80 mg PO HS albuterol sulfate 90 mcg/actuation HFA aerosol inhaler 2 puff INHALATION Q6H PRN (Reason: shortness of breath or wheezing) oxycodone 5 mg tablet 5 mg PO Q8H PRN (Reason: pain) insulin lispro 100 unit/mL insulin pen 6 unit SUBCUT .before meals lactulose 10 gram/15 mL solution 30 ml PO DAILY insulin glargine [Lantus Solostar U-100 Insulin] 100 unit/mL (3 mL) insulin pen 15 unit SUBCUT HS acetaminophen 325 mg capsule 650 mg PO Q6H PRN (Reason: fever or pain) carboxymethylcellulose sodium 0.5 % dropperette 1 drp EACH EYE Q4H pregabalin [Lyrica] 200 mg capsule 200 mg PO BID polyethylene glycol 3350 [Miralax] 17 gram/dose powder 17 g PO DAILY nicotine 14 mg/24 hr patch 24 hour 1 patch transdermal DAILY sennosides-docusate sodium [Stimulant Laxative Plus] 8.6-50 mg tablet 1 tab-cap PO BID Held dabigatran etexilate 150 mg capsule 150 mg PO BID Hold Instructions: Resume on 07/25/25. hold for 10 days Discontinued duloxetine 60 mg capsule,delayed release(DR/EC) 30 mg PO DAILY furosemide [Lasix] 40 mg tablet 40 mg PO Q12H meloxicam 15 mg tablet 15 mg PO HS omeprazole 20 mg capsule,delayed release(DR/EC) 20 mg PO DAILY amlodipine 5 mg tablet 5 mg PO DAILY losartan 100 mg tablet 100 mg PO DAILY Date of admission: 07/10/25 09:05 Primary Care Provider: JanisEddy Admitting Provider: Rachael Emmanuel Attending physician on admission: Rachael Emmanuel Condition: Serious
[2025-07-15 18:45] LABS: Add Urine Microscopic? YES; Appearance Urine Cloudy (Clear); Glucose Urine UA 3+ mg/dL (Negative); Leukocyte Esterase Ur Negative LEU/UL (Negative); Nitrate Urine Negative (Negative); Non Pathogenic Casts 0-2; Specific Grav Ur 1.024 (1.001-1.035)
== END 2025-07-15 20:57 | DRG 812 ==
LOC: ANHED 18:23 → ANHIMU 19:43 → ANH3MED 07-10 16:22
PROVIDERS: Internal Medicine Gastroenterology; Internal Medicine Hematology & Oncology; Student in an Organized Health Care Education/Training Program; Admitting Provider Family Medicine; Emergency Provider Emergency Medicine; PCP Internal Medicine; Visit Provider Internal Medicine
PROC: 0DJ08ZZ Inspection of Upper Intestinal Tract, Via Natural or Artificial Opening Endoscopic (ICD-10-PCS; principal; 2025-07-10 14:30)
DX: D50.0 Iron deficiency anemia secondary to blood loss (chronic) (principal); K92.1 Melena; I48.20 Chronic atrial fibrillation, unspecified; K22.10 Ulcer of esophagus without bleeding; K25.9 Gastric ulcer, unspecified as acute or chronic, without hemorrhage or perforation; I11.0 Hypertensive heart disease with heart failure; I50.9 Heart failure, unspecified; I95.9 Hypotension, unspecified; J44.9 Chronic obstructive pulmonary disease, unspecified; E11.51 Type 2 diabetes mellitus with diabetic peripheral angiopathy without gangrene; E78.5 Hyperlipidemia, unspecified; K44.9 Diaphragmatic hernia without obstruction or gangrene; K57.30 Diverticulosis of large intestine without perforation or abscess without bleeding; K29.60 Other gastritis without bleeding; M81.0 Age-related osteoporosis without current pathological fracture; R31.9 Hematuria, unspecified; T17.998A Other foreign object in respiratory tract, part unspecified causing other injury, initial encounter; F41.9 Anxiety disorder, unspecified; F17.210 Nicotine dependence, cigarettes, uncomplicated; I69.339 Monoplegia of upper limb following cerebral infarction affecting unspecified side; Z79.4 Long term (current) use of insulin; Z79.01 Long term (current) use of anticoagulants; Z79.1 Long term (current) use of non-steroidal anti-inflammatories (NSAID)
CPT/HCPCS: 36415; 36430; 70450; 71045; 74177; 80048; 80053; 81001; 81003; 82948; 83010; 83020; 83540; 83550; 83735; 85014; 85018; 85025; 85046; 85055; 85610; 85660; 85730; 86850; 86900; 86901; 86923; 87086; 92610; 93005; 94640; 96374; 99285; A9270; G0378; J1815; J1938; J2470; J7030; J7040; J7050; J7120; P9016; Q9967

== ENCOUNTER 2025-08-25 06:17 | Outpatient (CLI) | payer MEDICARE, MEDICAID, SELFPAY ==
--- NOTE | 2025-08-15 14:16 | PC.NURSE ---
Givens capsule information obtained from Paige at [facility] information also Faxed per her request
--- NOTE | 2025-08-22 12:01 | PC.NURSE ---
Spoke with ALISON Santos. States they received the instructions and has no further questions. Aware of date and time.
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
--- OUTSIDE RECORDS SUMMARY | 2025-08-25 06:20 | XMS_ITS | Patient Health Record ---
Author Organization [facility], Address [address] [facility] [address] [place] [address] Care Team Providers Care Gravity Prospecting Observer Name Role Phone Boyn Eckert Primary Care Provider Humza Joiner Unavailable [phone] Reason For Referral No Information Plan Of Treatment No Information Insurance Providers Payer Name Payer Address Payer Phone Subscriber Number Group Number Insured Name Patient Relationship to Insured Coverage Start Date Coverage End Date [employer] PPO [address] [address] [place] [address] [id number] Maksim Scanlon Self - patient is the insured
--- OUTSIDE RECORDS SUMMARY | 2025-08-25 06:20 | XMS_ITS | Clinical Summary ---
Author Organization [facility] Address [address] [place] [address] Phone Care Team Providers Care Near East Archeology Professor Name Role Phone Joseph Rust MD Primary Care Provider [phone] Allergies Active Allergy Reactions Criticality Noted Date [...] 24 HOUR PERIOD. Active blood sugar diagnostic ([employer] Verio test strips) Strip Test blood sugar [...] 6 units 15 mL 4 Active Insulin [place], Disposable, (Comfort EZ Pen [place]) 31 gauge x 5/16 Needle Use as [...] on file Legal Sex Male 11:54 PM TEST EXAMINER Gender Identity Not on file Sexual Orientation [...] Comments HEMOGLOBIN A1C Routine 07/31/2023 10:19 AM TEST EXAMINER from Last 3 Months or Most Recently Relevant to Health Maintenance Results * (ABNORMAL) HEMOGLOBIN A1C (07/31/2023 10:19 AM TEST EXAMINER) HEMOGLOBIN A1C 6.7(H) <=5.6 % 08/01/2023 12:49 AM TEST EXAMINER [facility] EST. AVG GLUCOSE, A1C 146 mg/dL 08/01/2023 12:49 AM TEST EXAMINER [facility] Blood Venipuncture / Unknown 07/31/2023 10:19 AM TEST EXAMINER 07/31/2023 10:32 AM TEST EXAMINER Narrative [facility] - 08/01/2023 12:49 AM TEST EXAMINER HGB A1C INTERPRETATION NORMAL: <5.7% PRE-DIABETES: 5.7 - 6.4% DIABETES: 6.5% OR GREATER us Ethan Abel MD CHEMISTRY ORDERABLES Final Resu lt [facility]# [id number] [address] [place] [address] from Last 3 Months or Most Recently Relevant to Health Maintenance Insurance [facility] PPO DSNP [facility] [id number] RX [employer] RX Member Subscriber Plan / Payer (Ef fective 2023-Present) Name:Maksim Scanlon Relation to Subscriber:Self Name:Maksim Scanlon Payer ID:Not on file Group ID:[id number] Type:RX Medicare Part D Address: [place], [place] MEDICARE PART A AND B Advance Directives For more information, please contact: [phone] * Full Code (Latest Code Status on File) Date Activated Date Inactivated Comments 03/06/2024 11:27 AM 03/09/2024 2:15 AM * Full Code Date Activated Date Inactivated Comments 07/26/2023 8:17 AM 08/03/2023 7:00 PM Care Teams Near East Archeology Professor Relationship Specialty Start Date End Date Joseph Rust MD [address] [place] [id number] PCP - General Family Practice 03/06/24
--- OUTSIDE RECORDS SUMMARY | 2025-08-25 06:22 | XMS_ITS | Encounter Summary ---
Author Organization [facility] Care Team Providers Care Brazer Electronic Name Role Phone Joseph Rust MD Primary Care Provider [phone] Unknown, Notinfile Primary Care Provider Unavail able Joseph Rust MD Primary Care Provider [phone] Rafael Cordoba MD Primary Care Provider + [phone] Vanna Park NP Unavailable [phone] Haresh Cordoba DO Primary Care Provider + Joseph Rust MD Primary Care Provider [phone] Russ Ley MD Unavailable [phone] Goyo Medina MD Unavailable [phone] Encounter Details Date Type Department Care Team (Latest Contact Info) Description 02/16/2017 Orders Only [facility] CLINCONV ProviderKhalif MD [address] [place] [address] Social History Tobacco Use Types Packs/Day Years Used Date Smoking Tobacco: Never Assessed Sex and Gender Information Value Date Recorded Sex Assigned at Not on file Legal Sex Male 3:42 AM NUTRITION MANAGER Gender Identity Not on file Sexual Orientation [...] AM CDT Ordered by an unspecified provider. [facility] Provider MD CV CARDIAC SERVICES PROCE DURES Final Result * CARDIOLOGY REPORT (02/16/2017 12:00 AM CDT) Anatomical Region Laterality Modality Other Narrative 02/16/2017 12:00 AM CDT Ordered by an unspecified provider. [facility] Provider MD CV CARDIAC SERVICES PROCE DURES Final Result documented in this encounter Visit Diagnoses Not on filedocumented in this encounter Additional Health Concerns Infection Onset Date Last Indicated Resolved Time COVID: Suspected 01/12/2022 01/12/2022 01/12/2022 2:33 PM CDT COVID: Suspected 08/12/2023 08/12/2023 08/12/2023 2:39 PM NUTRITION MANAGER COVID19 08/12/2023 08/12/2023 08/23/2023 11:3 0 AM NUTRITION MANAGER Coronavirus, contact + droplet 08/12/2023 08/12/2023 08/23/2023 11:30 AM NUTRITION MANAGER COVID: Recovered 08/23/2023 08/23/2023 11/21/2023 3:06 AM CDT COVID: Suspected 09/04/2023 09/04/2023 09/04/2023 7:59 AM NUTRITION MANAGER COVID19 Comment:Pt. Is COVID recovered, last positive 08/12/23 09/04/2023 09/04/2023 09/05/2023 7:58 A M NUTRITION MANAGER COVID: Recovered Comment:Added based on recent COVID [...] documented as of this encounter Care Teams Brazer Electronic Relationship Specialty Start Date End Date Joseph Rust MD [address] [place] [address] PCP - General 01/11/18 01/18/18 Unknown, Notinfile PCP - General 01/19/18 10/02/18 Joseph Rust MD [address] [place] [address] PCP - General Family Medicine 10/03/18 10/10/19 Rafael Cordoba MD [facility] [facility] [address] [place] [address] PCP - General Family Medicine 10/11/19 01/13/21 Haresh Cordoba DO [address] [place] [address] PCP - General 01/14/21 01/11/22 Joseph Rust MD [address] [place] [address] PCP - General Family Medicine 01/12/22 Vanna Park NP [address] [place] [address] Referring Physician Otolaryngology 09/03/20 Russ Ley MD [facility] [facility] [address] [facility] [facility] [address] [place] [address] Surgeon Vascular Surgery 11/04/22 Goyo Medina MD [facility] [facility] [address] [place] [address] Consulting Physician Pulmonary Disease 01/11/24 documented as of this encounter
--- OUTSIDE RECORDS SUMMARY | 2025-08-25 06:22 | XMS_ITS | Clinical Summary ---
Author Organization [facility] [employer] Address [address] [address] Care Team Providers Care Clearance Representative Name Role Phone Joseph Rust Primary Care Provider [phone] Source Comments [facility], [facility],non-owned Affiliates and Associated Physician Practices is amultiple site organization consisting of ambulatory clinics and hospital sitesin [place], [place], [place] and [place]. This disclosure is being madepursuant to the Care Everywhere program and may not contain all information available regarding this patient. Last updated 18.[facility] [employer] Allergies Active Allergy Reactions Criticality Noted Date [...] Active Continuous Glucose Sensor (Dexcom G7 Sensor) [facility] Use 1 device as directed Active DULoxetine [...] 160 -SW/CM working on SNF placement, preferably [facility] - Pt to follow up w/Tran Barry NP in 2 weeks for wound check. NSGY will schedule their follow up appointment, or they can call [phone]. Neurosurgery follow up information also placed in [facility] discharge navigator. Assessment & Plan (11/17/2024 [...] Encounters Date Type Department Care Team Description 08/07/2025 Travel 07/08/2025 Lab Requisition [facility] [address] [place] [address] Pendegraft, Mitzi 06/24/2025 Travel from Last 3 Months Family History Medical History Relation Name Comments Diabetes - Type 2 Mother Hypertension Mother Cancer - Colon Neg Hx Other - Hematologic Neg Hx Relation Name Status Comments Mother Social History Tobacco Use Types Packs/Day Years Used Date Smoking Tobacco: Every Day Cigarettes 0.5 2 Started: 01/11/2004; Last attempted to quit: 01/10/2019 [...] and heating? Patient unable to answer 11/12/2024 [place] [employer] [facility] - Occupational Stress [...] any time in the past 12 [facility], were you homeless or living in a skilled nursing (including now)? Patient unable to answer 11/12/2024 Sex and Gender Information Value Date Recorded Sex Assigned at Not on file Legal Sex Male 5:47 PM KITCHEN MECHANIC Gender Identity Not on file Sexual Orientation [...] st Contact Info) Description 09/10/2025 9:00 AM KITCHEN MECHANIC Appointment [facility] [address] [place] [address] Margie Conte PA-C [address] [place] [address] 09/10/2025 10:30 AM KITCHEN MECHANIC Office Visit [facility] - Vascular Surgery [address] [place] [address], [place] [address] Margie Conte PA-C [address] [place] [address] Sirena Cottrell MD [address] [place] [address] 01/27/2026 11:40 AM CDT Appointment [facility] [address] [place] [address] Dex Murphy MD [address] [place] [address] 01/27/2026 12:00 PM CDT Appointment [facility] [address] [place] [address] Dex Murphy MD [facility] [place] [address] 01/27/2026 2:45 PM CDT Office Visit [facility] - Neurosurgery [address] [place] [address], [place] [address] Pee Monterroso MD [address] [place] [address] Health Maintenance Due Date Last Done Comments [...] 50+ (1 of 2 - PCV) 1973 Respiratory Syncytial Virus (RSV) Vaccine Pt: or over 60 yrs (1 - Risk 50-74 years 1-dose series) 2004 ZOSTER VACCINE (1 of 2) 2004 AAA SCREENING 12/26/2019 DIABETES RETINOPATHY SCREENING 05/18/2024 12/13/2017 DIABETES-FOOT EXAM WITH MONOFILAMENT 05/18/2024 DEPRESSION SCREENING 08/28/2024 DIABETES - URINE PROTEIN SCREENING 08/28/2024 COVID-19 VACCINE ( season) 2025 08/24/2021, 12/11/2020, 11/19/2020 INFLUENZA VACCINE (#1) 2025 , 05/31/2024, 08/23/2023, Additional history exists DIABETES-HGB A1C 05/16/2025 11/13/2024, , 05/09/2024 DIABETES-SERUM CREATININE 07/08/20262024, 11/17/2024, 11/15/2024, Additional history exists HEPATITIS C [...] this topic Medical Devices Implanted Type Area Inner Layer Scrubber Tender Device Identifier Shelf Expiration Date Model / Serial / Lot Screw Set M6 Spne Oc Upr Thor Infnt - Sn/A Implanted:Qty : 6 on 05/17/2024 by Dex Murphy MD at [facility] N/A: Spine Cervical Medtronic Sofamor Danek Spine [id number] / N/A / N/A Description:C3-C5 Screw 3.5mm 28mm Ma Spne Oc Upr Thor - Sn/A Implanted:Qty : 1 on 05/17/2024 by Dex Murphy MD at [facility] Left: Spine Cervical Med[employer] Inc [id number] / N/A / N/A Description:C3 Screw 3.5mm 26mm Ma Spne Oc Upr Thor - Sn/A Implanted:Qty : 1 on 05/17/2024 by Dex Murphy MD at [facility] Right: Spine Cervical Med[employer] Inc [id number] / N/A / N/A Description:C3 Screw 3.5mm 24mm Ma Spne Bone - Sn/A Implanted:Qty : 4 on 05/17/2024 by Dex Murphy MD at [facility] Right: Spine Cervical Med[employer]onic Inc [id number] / N/A / N/A Description:C4+C5 Ciro Spnl 50mm 3.5mm Pcut Implanted:Qty : 2 on 05/17/2024 by Dex Murphy MD at [facility] Right: Spine Cervical Med[employer] Inc [id number] / / Description:C3-C5 Spcr Spnl 7mm [address] Shrt - Sna Implanted:Qty : 1 on 11/12/2024 by Dex Murphy MD at [facility] Spine Lumbar Medtronic Sofamor Danek Spine 02/13/2032 [id number] / NA / [id number] Clarion Dbm Inject 9cc Implanted:Qty : 1 on 11/12/2024 by Dex Murphy MD at [facility] Spine Lumbar Med[employer]onic Inc 12/18/2025 [id number] / [id number] / NA Spcr Spnl 7mm Catal[address] Pl Shrt - Sna Implanted:Qty : 1 on 11/12/2024 by Dex Murphy MD at [facility] Spine Lumbar Medtronic Sofamor [employer]anek Spine 02/13/2032 [id number] / NA / [id number] Clarion Dbf Inject 9cc Implanted:Qty : 1 on 11/12/2024 by Dex Murphy MD at [facility] Spine Lumbar 06/17/2026 [id number] / [id number] / NA Spcr Spnl 7mm Catal[address] Pl Shrt - Sna Implanted:Qty : 1 on 11/12/2024 by Dex Murphy MD at [facility] Spine Lumbar Medtronic Sofamor [employer]ane[employer] Spine [id number] 07/08/2032 [id number] / NA / [id number] Spcr Spnl 7mm Catal[address] Shrt - Sna Implanted:Qty : 1 on 11/12/2024 by Dex Murphy MD at [facility] Spine Lumbar Medtronic Sofamor [employer]ane[employer] Spine [id number] 07/08/2032 [id number] / NA / [id number] Ciro Spnl 100mm 5.5mm Cd Hzn Crv Cocrmo - Sna Implanted:Qty : 1 on 11/12/2024 by Dex Murphy MD at [facility] Spine Lumbar Med[employer]onic Inc [id number] / NA / NA Ciro Spnl 90mm 5.5mm Cd Hzn Crv Cocrmo - Sna Implanted:Qty : 1 on 11/12/2024 by Dex Murphy MD at [facility] Spine Lumbar Med[employer]onic Inc [id number] / NA / NA Graft Bone Grftn Dbm Aspt 5x2.5cm Post - [id number] Implanted:Qty : 1 on 11/12/2024 by Dex Murphy MD at [facility] Spine Lumbar Med[employer]onic Inc [id number] 10/01/2027 [id number] / [id number] / NA Screw Set Ti Spnl Brk Off Cd Hzn Nonster - Sna Implanted:Qty : 8 on 11/12/2024 by Dex Murphy MD at [facility] Spine Lumbar Med[employer]onic Inc [id number] / NA / NA Screw 6.5mm 45mm Ma Spne Solera Cd Hzn - Sna Implanted:Qty : 2 on 11/12/2024 by Dex Murphy MD at [facility] Spine Lumbar Med[employer] Inc [id number] / NA / NA Screw 6.5mm 50mm Ma Spne Solera Cd Hzn - Sna Implanted:Qty : 6 on 11/12/2024 by Dex Murphy MD at [facility] Spine Lumbar Med[employer]onic Inc [id number] / NA / NA Shirley Dbm Inject 9cc Implanted:Qty : 1 on 11/12/2024 by Dex Murphy MD at [facility] Spine Lumbar Medtronic Inc [id number] 07/18/2026 [id number] / [id number] / NA Procedures Procedure Name Priority Date/Time Associated Diagnosis Comments CBC W AUTO DIFFERENTIAL STAT 07/08/2025 6:20 PM KITCHEN MECHANIC COMPREHENSIVE METABOLIC PANEL STAT 07/08/2025 6:20 PM KITCHEN MECHANIC HEMOGLOBIN A1C Routine 11/13/2024 3:44 AM CDT HEPATITIS C AB SCREEN RFLX NAAT QUANT STAT 02/10/2019 5:20 PM CDT from Last 3 Months or Most Recently Relevant to Health Maintenance Results * (ABNORMAL) CBC WITH DIFFERENTIAL (07/08/2025 6:20 PM KITCHEN MECHANIC) [facility] WBC 5.7 4.0 - 10.7 x10E9/L 07/08/2025 8:35 PM KITCHEN MECHANIC [facility] RBC Count 1.77(L) 4.30 - 5.80 x10E12/L 07/08/2025 8:35 PM [facility] Hemoglobin 4.0(LL) 13.3 - 17.5 g/dL 07/08/2025 8:35 PM [facility] Hematocrit 14.4(L) 38.7 - 51.1 % 07/08/2025 8:35 PM [facility] MCV 81.4 80.0 - 98.0 fL 07/08/2025 8:35 PM [facility] MCH 22.6(L) 26.7 - 33.6 pg 07/08/2025 8:35 PM [facility] MCHC 27.8(L) 31.7 - 36.3 g/dL 07/08/2025 8:35 PM [facility] RDW-CV 18.4(H) 11.3 - 14.8 % 07/08/2025 8:35 PM [facility] Platelet Count 139(L) 150 - 420 x10E9/L 07/08/2025 8:35 PM [facility] MPV 11.4 7.8 - 11.4 fL 07/08/2025 8:35 PM [facility] Neutrophil % 70.0 41.0 - 74.0 % 07/08/2025 8:35 PM [facility] Lymphocyte % 13.9(L) 17.0 - 47.0 % 07/08/2025 8:35 PM [facility] Monocyte % 13.9(H) 3.0 - 11.0 % 07/08/2025 8:35 PM [facility] Eosinophil % 1.4 0.0 - 7.0 % 07/08/2025 8:35 PM [facility] Basophil % 0.3 0.0 - 1.6 % 07/08/2025 8:35 PM [facility] Immature Granulocytes % 0.5 0.0 - 1.0 % 07/08/2025 8:35 PM [facility] Neutrophil Absolute 4.01 1.60 - 7.50 x10E9/L 07/08/2025 8:35 PM [facility] Lymphocyte Absolute 0.80(L) 1.00 - 4.40 x10E9/L 07/08/2025 8:35 PM [facility] Monocyte Absolute 0.80 0.15 - 1.00 x10E9/L 07/08/2025 8:35 PM [facility] Eosinophil Absolute 0.08 0.00 - 0.60 x10E9/L 07/08/2025 8:35 PM [facility] Basophil Absolute 0.02 0.00 - 0.13 x10E9/L 07/08/2025 8:35 PM [facility] NRBC 0.5(H) <=0.0 /100 WBC 07/08/2025 8:35 PM [facility] Blood BLOOD SPECIMEN / Unknown 07/08/2025 6:20 PM KITCHEN MECHANIC 07/08/2025 7:45 PM KITCHEN MECHANIC us Mitzi Pendegraft LAB - HEMATOLOGY ORDERABLES Fin al Result [facility] [address] [place] [address] * (ABNORMAL) COMPREHENSIVE METABOLIC PANEL (07/08/2025 6:20 PM KITCHEN MECHANIC) Glucose 202(H) 70 - 99 mg/dL 07/08/2025 8:15 PM [facility] Sodium 137 136 - 145 mmol/L 07/08/2025 8:15 PM [facility] Potassium 4.0 3.5 - 5.1 mmol/L 07/08/2025 8:15 PM [facility] Chloride 102 98 - 107 mmol/L 07/08/2025 8:15 PM [facility] CO2 26 22 - 29 mmol/L 07/08/2025 8:15 PM [facility] Calcium 8.3(L) 8.4 - 10.4 mg/dL 07/08/2025 8:15 PM [facility] Anion Gap 9 6 - 16 mmol/L 07/08/2025 8:15 PM [facility] BUN 33(H) 7 - 26 mg/dL 07/08/2025 8:15 PM [facility] Creatinine 1.42(H) 0.70 - 1.30 mg/dL 07/08/2025 8:15 PM [facility] Alkaline Phosphatase 113 40 - 150 U/L 07/08/2025 8:15 PM [facility] ALT 10 6 - 57 U/L 07/08/2025 8:15 PM [facility] AST 25 10 - 48 U/L 07/08/2025 8:15 PM [facility] Protein Total 5.9(L) 6.4 - 8.3 gm/dL 07/08/2025 8:15 PM [facility] Albumin 3.2 3.1 - 4.5 gm/dL 07/08/2025 8:15 PM [facility] Bilirubin Total 0.2 0.2 - 1.2 mg/dL 07/08/2025 8:15 PM [facility] eGFR by CKD-EPI 53(L) >=90 mL/min/1.7 3 m2 07/08/2025 8:15 PM [facility] Comment:Estimated Glomerular Filtration Rate (eGFR) calculated using the CKD-EPI Creatinine Equation (2020), per the National Kidney Foundation and [place] Society of Nephrology recommendations. Blood BLOOD SPECIMEN / Unknown Venipuncture / Unknown 07/08/2025 6:20 PM KITCHEN MECHANIC 07/08/2025 7:45 PM [facility] us Mitzi Pendegraft LAB - CHEMISTRY ORDERABLES Gabriela mayes Result [facility] [address] [place], [place] [id number] * (ABNORMAL) HEMOGLOBIN A1C (11/13/2024 3:44 AM [facility]) Hemoglobin A1c 6.9(H) <=5.6 % 11/13/2024 10:01 AM [facility] Estimated Average Glucose 151 mg/dL 11/13/2024 10:01 AM [facility] Comment: HbA1c Interpretation: Normal : < 5.7% Pre-diabetes: 5.7-6.4% Diabetes: Equal to or greater than 6.5% Test results diagnostic of diabetes should be repeated for confirmation. Treatment target values recommended by ADA and other clinical organizations should be used to evaluate metabolic control in patients. Reference: [place] Diabetes Association, Standards of Care in Diabetes -2020 In patients 70 years and older consider HbA1c target range of 7.0-7.5% (Reference: Carey A, et al. [place]. 2012) The Sebia assay for the measurement of HbA1c is a National Glycohemoglobin Standardization Program (NGSP) certified method. Blood BLOOD SPECIMEN / Unknown Venipuncture / Unknown 11/13/2024 3:44 AM CDT 11/13/2024 3:53 AM CDT Dex Murphy MD LAB - CHEMISTRY ORDERABL ES Final Result Performing Organization Address City/[facility]/ZIP Co de Phone Number [facility] [address] [place] [address], [facility] [phone] * HEPATITIS C AB SCREEN RFLX NAAT QUANT (02/10/2019 5:20 PM CDT) Hepatitis C Antibody Non-react diane Non-reac tive 02/10/2019 6:03 PM CDT [facility] Comment: Hepatitis C Antibody screen indicates no [...] MD LAB - CHEMISTRY ORDERABLES Final Result Performing Organization Address City/[facility]/ZIP Co de Phone Number [facility] [address] [place] [address], [facility] [phone] from Last 3 Months or Most Recently Relevant to Health Maintenance Insurance MEDICAID - [place] MEDICARE MEDICAID [facility] Advance Directives * Full Code (Latest Code [...] 11:17 PM 02/11/2019 2:30 AM Care Teams Clearance Representative Relationship Specialty Start Date End Date Joseph Rust [address] [place] [phone] PCP - General 03/28/16
--- OUTSIDE RECORDS SUMMARY | 2025-08-25 06:22 | XMS_ITS | Encounter Summary ---
Author Organization [facility] Care Team Providers Care Care Services Manager Name Role Phone Joseph Rust MD Primary Care Provider [phone] Unknown, Notinfile Primary Care Provider Unavail able Joseph Rust MD Primary Care Provider [phone] Rafael Cordoba MD Primary Care Provider [phone] Vanna Park NP Unavailable [phone] Haresh Cordoba DO Primary Care Provider + Joseph Rust MD Primary Care Provider [phone] Russ Ley MD Unavailable [phone] Goyo Medina MD Unavailable [phone] Encounter Details Date Type Department Care Team (Latest Contact Info) Description 05/16/2017 Orders Only [facility] CLINCONV ProviderKhalif MD [address] [place] [address] Social History Tobacco Use Types Packs/Day Years Used Date Smoking Tobacco: Never Assessed Sex and Gender Information Value Date Recorded Sex Assigned at Not on file Legal Sex Male 3:42 AM TORPEDO SHOOTER Gender Identity Not on file Sexual Orientation [...] COVID: Suspected 08/12/2023 08/12/2023 08/12/2023 2:39 PM TORPEDO SHOOTER COVID19 08/12/2023 08/12/2023 08/23/2023 11:3 0 AM TORPEDO SHOOTER Coronavirus, contact + droplet 08/12/2023 08/12/2023 08/23/2023 11:30 AM TORPEDO SHOOTER COVID: Recovered 08/23/2023 08/23/2023 11/21/2023 3:06 AM CDT COVID: Suspected 09/04/2023 09/04/2023 09/04/2023 7:59 AM TORPEDO SHOOTER COVID19 Comment:Pt. Is COVID recovered, last positive 08/12/23 09/04/2023 09/04/2023 09/05/2023 7:58 A M TORPEDO SHOOTER COVID: Recovered Comment:Added based on recent COVID [...] documented as of this encounter Care Teams Care Services Manager Relationship Specialty Start Date End Date Joseph Rust MD [address] [place] [address] PCP - General 01/11/18 01/18/18 Unknown, Notinfile PCP - General 01/19/18 10/02/18 Joseph Rust MD [address] [place] [address] PCP - General Family Medicine 10/03/18 10/10/19 Rafael Cordoba MD [address] [place] [address] [facility] [place] [address] PCP - General Family Medicine 10/11/19 01/13/21 [address] [place] [address] PCP - General 01/14/21 01/11/22 Joseph Rust MD NPI: [id number] [place] [address] PCP - General Family Medicine 01/12/22 Vanna Park NP [address] [place] [address] Referring Physician Otolaryngology 09/03/20 Russ Ley MD [address] [facility] [address] [place] [address] Surgeon Vascular Surgery 11/04/22 Goyo Medina MD [address] [place] [address] Consulting Physician Pulmonary Disease 01/11/24 documented as of this encounter
--- OUTSIDE RECORDS SUMMARY | 2025-08-25 06:22 | XMS_ITS | Encounter Summary ---
Author Organization [facility] Facility Care Team Providers Care Shoe Cobbler Name Role Phone Joseph Rust MD Primary Care Provider [phone] Unknown, Notinfile Primary Care Provider Unavail able Joseph Rust MD Primary Care Provider [phone] Rafael Cordoba MD Primary Care Provider [phone] Vanna Park NP Unavailable [phone] Haresh Cordoba DO Primary Care Provider + Joseph Rust MD Primary Care Provider [phone] Russ Ley MD Unavailable [phone] Goyo Medina MD Unavailable [phone] Encounter Details Date Type Department Care Team (Latest Contact Info) Description 04/17/2017 Orders Only [facility] CLINCONV ProviderKhalif MD [address] [place] [address] Social History Tobacco Use Types Packs/Day Years Used Date Smoking Tobacco: Never Assessed Sex and Gender Information Value Date Recorded Sex Assigned at Not on file Legal Sex Male 3:42 AM 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 Is COVID recovered, last positive 08/12/23 09/04/2023 09/04/2023 09/05/2023 7:58 A M INDEPENDENT SALES REPRESENTATIVE COVID: Recovered Comment:Added based on recent COVID [...] as of this encounter Care Teams Shoe Cobbler Relationship Specialty Start Date End Date Joseph Rust MD [address] [place] [address] PCP - General 01/11/18 01/18/18 Unknown, Notinfile PCP - General 01/19/18 10/02/18 Joseph Rust MD [address] [place] [address] PCP - General Family Medicine 10/03/18 10/10/19 Rafael Cordoba MD [address] [place] [address] [facility] [address] PCP - General Family Medicine 10/11/19 01/13/21 Haresh Cord[address] [place] [address] [place] [address] PCP - General 01/14/21 01/11/22 Joseph Rust MD NPI: [id number] [place] [id number] PCP - General Family Medicine 01/12/22 Vanna Park NP [address] [place] [address] Referring Physician Otolaryngology 09/03/20 Russ Ley MD [address] [facility] [address] [facility] [address] [place] [address] Surgeon Vascular Surgery 11/04/22 Goyo Medina MD [address] [facility] [address] [place] [address] Consulting Physician Pulmonary Disease 01/11/24 documented as of this encounter
--- OUTSIDE RECORDS SUMMARY | 2025-08-25 06:22 | XMS_ITS | Encounter Summary ---
Author Organization [facility] Address [address] [place] [address] Care Team Providers Care [employer] Lead Ads Marketing Name Role Phone Joseph Rust MD Primary Care Provider [phone] Reason for Visit * Reason Onset Date Comments Post cpr - rib fracture & sm all right hemothorax,on elliquis 07/26/2023 Spoke W/ Desiree at Dr. Favio elliott's exchange/ Dr. Pérez inspector balance wheel motion Encounter Details Date Type Department Care Team (Late st Contact Info) Description 07/26/2023 Telephone [facility] [address] [place] [address] [place] [address] [place] [address] Post cpr - rib fracture & small right hemothorax,on iqu (Spoke W/ Desiree at Dr. Soria's exchange/ Dr. Pérez inspector balance wheel motion ) Social History Tobacco Use Types Packs/Day [...] on file Legal Sex Male 11:54 PM CUSTOMER CARE ASSISTANT Gender Identity Not on file Sexual Orientation Not on file documented as of this encounter Plan of Treatment Not on file documented as of this encounter Visit Diagnoses Not on filedocumented in this encounter Care Teams [employer] Lead Ads Marketing Relationship Specialty Start Date End Date Joseph Rust MD [address] [place] [phone] PCP - General Family Practice 03/06/24 documented as of this encounter
--- OUTSIDE RECORDS SUMMARY | 2025-08-25 06:22 | XMS_ITS | Encounter Summary ---
Author Organization [facility] Address [address] [place] [address] Care Team Providers Care Plant Senior Manager Name Role Phone Joseph Rust Primary Care Provider [phone] Encounter Details Date Type Department Care Team (Late st Contact Info) Description 07/08/2025 Lab Requisition [facility] [address] [place] [id number] [address] [place] [place] [phone] Social History Tobacco Use Types Packs/Day Years [...] and heating? Patient unable to answer 11/12/2024 [facility] [place] [facility] - Occupational Stress [...] any time in the past 12 m [facility], were you homeless or living in a skilled nursing (including now)? Patient unable to answer 11/12/2024 Sex and Gender Information Value Date Recorded Sex Assigned at Not on file Legal Sex Male 5:47 PM SURFACER Gender Identity Not on file Sexual Orientation Not on file documented as of this encounter Functional Status * Is person deaf or have serious hearing difficulty? Answer Date of Assessment Author No 11/12/2024 6:29 PM CDT Mirian Spencer * Is person blind or have serious difficulty seeing? Answer Date of Assessment Author No 11/12/2024 6:29 PM DATT Mirian Spencer * Does person have serious [...] st Contact Info) Description 09/10/2025 9:00 AM SURFACER Appointment [facility] VASCULAR US [address] [place] [address] Margie Conte PA-C [address] [place] [phone] 09/10/2025 10:30 AM SURFACER Office Visit [facility] - Vascular Surgery [address] [facility], [place] [address] Margie Conte PA-C [address] [place] [phone] Sirena Cottrell MD [address] [facility] [address] [place] [address] 01/27/2026 11:40 AM CDT Appointment [facility] CAT SCAN [address] [place] [address] Dex Murphy MD [address] [facility] [address] [place] [address] 01/27/2026 12:00 PM CDT Appointment [facility] CAT SCAN [address] [place] [address] Dex Murphy MD [address] [facility] [address] [place] [address] 01/27/2026 2:45 PM CDT Office Visit [facility] - Neurosurgery [address] [place] [address], [place] [phone] Pee Monterroso MD [address] [place] [address] [place] [address] documented as of this encounter Procedures Procedure Name Priority Date/Time Associated Diagnosis Comments CBC W AUTO DIFFERENTIAL STAT 07/08/2025 6:20 PM SURFACER COMPREHENSIVE METABOLIC PANEL STAT 07/08/2025 6:20 PM SURFACER documented in this encounter Results * (ABNORMAL) CBC WITH DIFFERENTIAL (07/08/2025 6:20 PM SURFACER) WBC 5.7 4.0 - 10.7 x10E9/L 07/08/2025 8:35 PM SURFACER [facility] RBC Count 1.77(L) 4.30 - 5.80 x10E12/L 07/08/2025 8:35 PM SURFACER [facility] Hemoglobin 4.0(LL) 13.3 - 17.5 g/dL 07/08/2025 8:35 PM SURFACER [facility] Hematocrit 14.4(L) 38.7 - 51.1 % 07/08/2025 8:35 PM SURFACER [facility] MCV 81.4 80.0 - 98.0 fL 07/08/2025 8:35 PM SURFACER [facility] MCH 22.6(L) 26.7 - 33.6 pg 07/08/2025 8:35 PM SURFACER [facility] MCHC 27.8(L) 31.7 - 36.3 g/dL 07/08/2025 8:35 PM SURFACER [facility] RDW-CV 18.4(H) 11.3 - 14.8 % 07/08/2025 8:35 PM SURFACER [facility] Platelet Count 139(L) 150 - 420 x10E9/L 07/08/2025 8:35 PM SURFACER [facility] MPV 11.4 7.8 - 11.4 fL 07/08/2025 8:35 PM SURFACER [facility] Neutrophil % 70.0 41.0 - 74.0 % 07/08/2025 8:35 PM SURFACER [facility] Lymphocyte % 13.9(L) 17.0 - 47.0 % 07/08/2025 8:35 PM [facility] Monocyte % 13.9(H) 3.0 - 11.0 % 07/08/2025 8:35 PM [facility] Eosinophil % 1.4 0.0 - 7.0 % 07/08/2025 8:35 PM [facility] Basophil % 0.3 0.0 - 1.6 % 07/08/2025 8:35 PM [facility] Immature Granulocytes % 0.5 0.0 - 1.0 % 07/08/2025 8:35 PM [facility] Neutrophil Absolute 4.01 1.60 - 7.50 x10E9/L 07/08/2025 8:35 PM [facility] Lymphocyte Absolute 0.80(L) 1.00 - 4.40 x10E9/L 07/08/2025 8:35 PM [facility] Monocyte Absolute 0.80 0.15 - 1.00 x10E9/L 07/08/2025 8:35 PM [facility] Eosinophil Absolute 0.08 0.00 - 0.60 x10E9/L 07/08/2025 8:35 PM [facility] Basophil Absolute 0.02 0.00 - 0.13 x10E9/L 07/08/2025 8:35 PM [facility] NRBC 0.5(H) <=0.0 /100 WBC 07/08/2025 8:35 PM [facility] Blood BLOOD SPECIMEN / Unknown 07/08/2025 6:20 PM SURFACER 07/08/2025 7:45 PM SURFACER us Mitzi Pendegraft LAB - HEMATOLOGY ORDERABLES Fin al Result [facility] [address] [place] [address] * (ABNORMAL) COMPREHENSIVE METABOLIC PANEL (07/08/2025 6:20 PM SURFACER) [facility] Glucose 202(H) 70 - 99 mg/dL 07/08/2025 8:15 PM [facility] Sodium 137 136 - 145 mmol/L 07/08/2025 8:15 PM [facility] Potassium 4.0 3.5 - 5.1 mmol/L 07/08/2025 8:15 PM [facility] Chloride 102 98 - 107 mmol/L 07/08/2025 8:15 PM [facility] CO2 26 22 - 29 mmol/L 07/08/2025 8:15 PM [facility] Calcium 8.3(L) 8.4 - 10.4 mg/dL 07/08/2025 8:15 PM [facility] Anion Gap 9 6 - 16 mmol/L 07/08/2025 8:15 PM [facility] BUN 33(H) 7 - 26 mg/dL 07/08/2025 8:15 PM [facility] Creatinine 1.42(H) 0.70 - 1.30 mg/dL 07/08/2025 8:15 PM [facility] Alkaline Phosphatase 113 40 - 150 U/L 07/08/2025 8:15 PM [facility] ALT 10 6 - 57 U/L 07/08/2025 8:15 PM [facility] AST 25 10 - 48 U/L 07/08/2025 8:15 PM [facility] Protein Total 5.9(L) 6.4 - 8.3 gm/dL 07/08/2025 8:15 PM [facility] Albumin 3.2 3.1 - 4.5 gm/dL 07/08/2025 8:15 PM [facility] Bilirubin Total 0.2 0.2 - 1.2 mg/dL 07/08/2025 8:15 PM [facility] eGFR by CKD-EPI 53(L) >=90 mL/min/1.7 3 m2 07/08/2025 8:15 PM [facility] Comment:Estimated Glomerular Filtration Rate (eGFR) calculated using the CKD-EPI Creatinine Equation (2020), per the National Kid[employer] and [place] [employer]ph[employer] recommendations. Blood BLOOD SPECIMEN / Unknown Venipuncture / Unknown 07/08/2025 6:20 PM SURFACER 07/08/2025 7:45 PM [facility] us Mitzi Pendegraft LAB - CHEMISTRY ORDERABLES Gabriela l Result [facility] [address] [place] [address] documented in this encounter Visit Diagnoses Not on filedocumented in this encounter Care Teams Plant Senior Manager Relationship Specialty Start Date End Date Joseph Rust [address] [place] [phone] PCP - General 03/28/16 documented as of this encounter
--- OUTSIDE RECORDS SUMMARY | 2025-08-25 06:22 | XMS_ITS | Data Portability ---
Author Organization [facility] Address 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 Plan of Treatment Reminders Order Date Submit Date Provider Last Modified By Organization Details Last Modified Time Details Appointments None recorde d. Lab glucose , fingers tick, blood 2023 024 In-Office Order, Internal Use Only DO Not Attach Compendium DO Not Attach Compendium, Do Not Delete/merge, [id number] 4 13:31:18 HbA1c (hemogl obin A1c), blood 2023 024 In-Office Order, Internal Use Only DO Not Attach Compendium DO Not Attach Compendium, Do Not Delete/merge, [id number] 4 13:31:18 CMP, serum or plasma 2023 024 [facility], [address] [place], [address], 5 09:32:53 HbA1c (hemogl obin A1c), blood 2023 024 In-Office Order, Internal Use Only DO Not Attach Compendium DO Not Attach Compendium, Do Not Delete/merge, [id number] 4 13:51:17 glucose , fingers tick, blood 2023 024 In-Office Order, Internal Use Only DO Not Attach Compendium DO Not Attach Compendium, Do Not Delete/merge, 4 13:51:19 glucose , fingers tick, blood 2023 024 In-Office Order, Internal Use Only DO Not Attach Compendium DO Not Attach Compendium, Do Not Delete/merge, 4 17:42:06 HbA1c (hemogl obin A1c), blood 2023 024 In-Office Order, Internal Use Only DO Not Attach Compendium DO Not Attach Compendium, Do Not Delete/merge, 17:42:06 urinaly sis, dipstic k 2023 024 BLAKE In-Office Order, Internal Use Only DO Not Attach Compendium DO Not Attach Compendium, Do Not Delete/merge, 4 17:55:49 Referral neurolo gist referra l 2022 023 [facility], [address] [facility], [place], [address], 4 01:40:01 neurolo gist referra l 2022 023 [facility], [address] [facility], [address], [place], [address], 3 18:35:23 Procedures None recorde d. Surgeries None recorde d. Imaging XR, chest, 2 view [facility] [address] [place], [address], 4 11:39:19 Medication Orders clopido grel 75 mg tablet 2023 [facility], [address] [place] [address], [id number], 4 13:31:48 omepraz ole 20 mg capsule ,delaye d release 2023 [facility] #70647, [address] [place] [address], [id number], 4 13:31:44 albuter ol sulfate HFA 90 mcg/act uation aerosol inhaler 2023 [facility] #79788, [address] [place] [address], [id number], 4 13:31:42 albuter ol sulfate 2.5 mg/3 mL (0.083 %) solutio n for nebuliz ation 2023 [facility] #76591, [address] [place] [address], [id number], 13:31:50 Symbico rt 160 mcg-4.5 mcg/act uation HFA aerosol inhaler 2023 [facility] #53702, [address] [place] [address], [id number], 4 13:31:42 Incruse Ellipta 62.5 mcg/act uation powder for inhalat ion 2023 [facility] #10093, [address] [place] [address], [id number], 4 13:31:40 atorvas tatin 80 mg tablet 2023 [facility]33028, [address] [place] [address], [id number], 4 13:31:47 Enulose 10 gram/15 mL oral solutio n 2023 [facility] #34858, [address] [place] [address], [id number], 4 13:31:45 hydroxy zine HCl 10 mg tablet 2023 024 [facility] #83565, [address] [place] [address], [id number], 4 13:38:23 carvedi lol 25 mg tablet 2023 [facility] #95951, [address] [place] [address], [id number], 4 13:31:41 amlodip ine 5 mg tablet [email or web address] [facility] #84124, [address] [place] [address], [id number], 4 13:31:52 losarta n 100 mg tablet 2023 [facility] #84431, [address] [place] [address], [id number], 4 13:31:50 duloxet ine 60 mg capsule ,delaye d release 2023 [facility] #53795, [address] [place] [address], [id number], 4 13:31:45 clopido grel 75 mg tablet 2023 [facility] #08968, [address] [place] [address], [id number], 4 20:25:29 omepraz ole 20 mg capsule ,delaye d release 2023 024 [facility] #51469, [address] [place] [address], [id number], 4 20:26:04 albuter ol sulfate HFA 90 mcg/act uation aerosol inhaler 2023 024 [facility] #01977, [address] [place] [address], [id number], 4 20:26:10 albuter ol sulfate 2.5 mg/3 mL (0.083 %) solutio n for nebuliz ation 2023 [facility] #67917, [address] [place] [address], [id number], 4 20:26:15 Symbico rt 160 mcg-4.5 mcg/act uation HFA aerosol inhaler 2023 024 [facility] #32539, [address] [place] [address], [id number], 4 20:26:15 Incruse Ellipta 62.5 mcg/act uation powder for inhalat ion 2023 024 [facility] #93782, [address] [place] [address], [id number], 4 20:25:55 atorvas tatin 80 mg tablet 2023 024 [facility] #57318, [address] [place] [address], [id number], 4 20:25:59 hydroxy zine HCl 10 mg tablet 2023 024 [facility] #65579, [address] [place] [address], [id number], 4 20:26:15 carvedi lol 25 mg tablet 2023 024 [facility] #21006, [address] [place] [address], [id number], 4 20:26:15 amlodip ine 5 mg tablet 2023 024 [facility] #91795, [address] [place] [address], [id number], 4 20:25:21 losarta n 100 mg tablet 2023 024 [facility] #65238, [address] [place] [address], [id number], 4 20:25:49 duloxet ine 60 mg capsule ,delaye d release 2023 024 [facility] #33197, [address] [place] [address], [id number], 4 20:26:28 pregaba dilshad 75 mg capsule 2023 024 [facility], [address] [place] [address], [id number], 4 11:16:30 pregaba dilshad 75 mg capsule 2023 024 [facility] #52303, [address] [place] [address], [id number], 4 17:42:04 nortrip tyline 25 mg capsule 2022 023 [email or web address] #41449, [address] [place] [address], [id number], 15:32:46 ketocon azole 2 % topical cream 2022 023 [facility]01391, [address] [facility], [place], [id number], 15:32:41 Patient TargetsNo targets recorded. Patient Instructions Encounter Date Encounter Id Patient Instructions Last Modified By Organization Details Last Modified Time 06/06/2023 [id number] osteoarthritis: care instructions Not available 06/06/2023 18:06:31 [...] care instructions Not available 06/06/2023 18:06:31 06/15/2023 [id number] toenail fungus: care instructions fharry Not available 06/15/2023 16:14:33 athlete's foot: care instructions fharry Not available 06/15/2023 16:14:33 2023 [id number] Peripheral Arter ial Disease (PAD): Care Instructions Not available 2023 17:42:04 (RUEL) ankle brac hial index* BLAKE Not available 01/04/2024 10:41:09 stroke: care instructions [...] blood pressure Not available 2023 17:42:04 03/11/2024 [id number] stroke: care instructions Not available 03/11/2024 13:51:11 [...] care instructions Not available 03/11/2024 13:51:12 08/02/2024 [id number] stroke: care instructions Not available 08/02/2024 13:31:18 [...] for Juliann ropathy Referring Physician: Joseph Rust [facility], Encounter Date: 06/06/2023 Neurologist Referral for Cer ebrovascular accident Referring Physician: Joseph Rust [facility], Encounter Date: 06/06/2023 Results Created Date Observation Date Name Description Value Unit Range Abnormal Flag Note LastModifiedBy Organization Detail LastModifiedTime 10/04/19 24 10/04/2023 WOUND CULTU RE header [place] [address] Patie nt:CAREY SLAUGHTER 0454 Med Rec#: [id number] Order ing MD: TRINY NICE : [birth year] Sex: M Locat ion: SEOLA B Test: WOUND CULTU RE Colle ct Date: 10-04 15:10 Acces preethi #: [id number] Not Available [facility] (Lab) [address] [facility], [place], [address], 10/07/2023 11:16:17 10/04/19 24 10/04/2023 WOUND CULTU [...] STATU S - FINAL 10/07 Not Available [facility] ([facility]) [address] [facility], [place], [address], 10/07/2023 11:16:17 10/04/19 24 10/04/2023 HEMOG LOBIN A1C hemoglobin A1C 6.4 % <5.7 high ADA GUIDE LINES 2010 5.7 TO 6.4% INCRE ASED RISK OF DIABE ALYSA > OR = 6.5% CONSI STENT WITH DIABE ALYSA Not Available [facility] ([place]) [place], [address], 10/04/2023 21:38:10 10/04/19 24 10/04/2023 HEMOG LOBIN A1C estimated average glucose, isadora 137 mg/dL Not Available [facility] (Lab) [place], [address], 10/04/2023 21:38:10 12/19/19 24 12/19/2023 VITAM IN B12 vitamin B12 1126 pg/mL 254-13 20 Not Available [facility] (Lab) [place], [address], 12/19/2023 14:55:14 12/19/19 24 12/19/2023 FOLAT E folate 26.8 NG/mL 3.1-17 .5 high Not Available [facility] (Lab) [place], [address], 12/19/2023 14:55:15 12/19/19 24 12/24/2023 VITAM IN [...] been deter mined by [facility] [place], [place]. It has not been clear ed or appro diana by the U.S. Food and Drug Admin istra tion. This assay has been valid ated pursu ant to the CLIA regul ation s and is used for clini isadora purpo ses. Test Perfo rmed by Rukhsana Nance, [facility], [address] [place], [place] Belen Whitlock M.D., Ph.D. , [facility] atori es [phone], CLIA [id number] Not Available [facility] (Lab) [place], [address], 12/24/2023 16:06:25 12/19/19 24 2023 VITAM IN B1, LCMSM S vitamin B1, lcmsms 33 high Refer ence range : 8 to 30 Unit: nmol/ L Vitam in suppl ement ation withi n 24 hours prior to blood draw may affec t the accur acy of the resul ts. This test was devel oped and its jeff tical perfo rmanc e jonas cteri stics have been deter mined by [facility] [place], [place]. It has not been clear ed or appro diana by the U.S. Food and Drug Admin istra tion. This assay has been valid ated pursu ant to the CLIA regul ation s and is used for clini isadora purpo ses. Test Perfo rmed by Rukhsana Nance, [facility], [address] [facility] [employer] [place], [place] Belen Whitlock M.D., Ph.D. , [facility] , CLIA [id number] Not Available [facility] (Lab) [place], [address], 2023 06:09:32 04/23/20 24 12/19/2023 Folat e [Mass /volu me] in Serum or Plasm a folate [mass/volume ] in serum or plasma 26.8 text: 3.1 - 17.5 NG/mL high FOLAT E 26.8 (H) 3.1 - 17.5 NG/ML 12/18 1:55 PM CDT [facility] Not Available Not Available 11/12/2024 11:10:10 [...] - 1,320 PG/ML 12/18 1:55 PM CDT [facility] Not Available Not Available 11/12/2024 [...] 2023 urina lysis , dipst ick Specific [place] 1.025 Not Available In-Off ice Order Internal [...] DO Not Attach Compendium, Do Not Delete/merge, [id number] 2023 17:08:21 12/25/1912/25/2023 HbA1c (hemo globi n A1c), blood HbA1c 7.2 Not Available In-Office Order Internal Use Only DO Not Attach Compendium DO Not Attach Compendium, Do Not Delete/merge, 2023 17:02:45 12/25/19 24 2023 gluco se, finge rstic k, blood Blood Glucose: mg/dl 196 Not Available In-Off ice Order Internal Use Only DO Not Attach Compendium DO Not Attach Compendium, Do Not Delete/merge, [id number] 2023 17:02:44 03/06/20 24 03/06/2024 Basic metab olic 1999 panel - Serum or Plasm a sodium [moles/volum e] in serum or plasma 137 mmol/ L low: 136mmo l/Lhig h: 145mmo l/L SODIU M 137 136 - 145 mmol/ L 03/06 6:38 PM CDT [facility] [employer] [facility] Not Available Not Available 11/08/2024 09:51:40 03/06/20 24 03/06/2024 Basic metab olic 1999 panel - Serum or Plasm a potassium [moles/volum e] in serum or plasma 5.2 mmol/ L low: 3.4mmo l/Lhig h: 5.1mmo l/L high POTAS SIUM 5.2 (H) 3.4 - 5.1 mmol/ L 03/06 6:38 PM CDT [facility] Not Available Not Available 11/08/2024 09:51:40 03/06/20 24 03/06/2024 Basic metab olic 1999 panel - Serum or Plasm a chloride 98 mmol/ L low: 98mmol /Lhigh : 107mmo l/L CHLOR SYLVIA 98 98 - 107 mmol/ L 03/06 6:38 PM CDT [facility] Not Available Not Available 11/08/2024 09:51:40 03/06/20 24 03/06/2024 Basic metab olic 1999 panel - Serum or Plasm a carbon dioxide, total [moles/volum e] in serum or plasma 26 mmol/ L low: 22mmol /Lhigh : 29mmol /L CO2 26 22 - 29 mmol/ L 03/06 6:38 PM CDT Mochila [facility] Not Available Not Available 11/08/2024 09:51:40 03/06/20 24 03/06/2024 Basic metab olic 1999 panel - Serum or Plasm a calcium 8.7 mg/dL low: 8.6mg/ dLhigh : 10.4mg /dL CALCI UM 8.7 8.6 - 10.4 mg/dL 03/06 6:38 PM CDT [facility] Not Available Not Available 11/08/2024 09:51:40 03/06/20 24 03/06/2024 Basic metab olic 1999 panel - Serum or Plasm a BUN 31 mg/dL low: 6mg/dL high: 20mg/d L high BUN 31 (H) 6 - 20 mg/dL 03/06 6:38 PM CDT [facility] Not Available Not Available 11/08/2024 09:51:40 03/06/20 24 03/06/2024 Basic metab olic 1999 panel - Serum or Plasm a creatinine [mass/volume ] in serum or plasma 0.89 mg/dL low: 0.67mg /dLhig h: 1.17mg /dL CREAT ININE 0.89 0.67 - 1.17 mg/dL 03/06 6:38 PM [facility] Not Available Not Available 11/08/2024 09:51:40 03/06/20 24 03/06/2024 Basic metab olic 1999 panel - Serum or Plasm a glucose [mass/volume ] in serum or plasma 347 mg/dL low: 74mg/d Lhigh: 99mg/d L high GLUCO SE 347 (H) 74 - 99 mg/dL 03/06 6:38 PM CDT [facility] Not Available Not Available 11/08/2024 09:51:40 03/06/20 24 03/06/2024 Basic metab olic 2000 panel - Serum or Plasm a glomerular filtration rate/1.73 sq M.predicted [volume rate/area] in serum, plasma or blood by creatinine-b ased formula (CKD-epi 2020) text: >=60 mL/min /1.73 sq meter GFR >60 >=60 mL/mi n/1.7 3 sq meter 03/06 6:38 PM CDT [facility] Not Available Not Available 11/08/2024 09:51:40 03/06/20 24 03/06/2024 Basic metab olic 2000 panel - Serum or Plasm a anion gap 13 mmol/ L low: 8mmol/ Lhigh: 16mmol /L ANION GAP 13 8 - 16 mmol/ L 03/06 6:38 PM CDT [facility] Not Available Not Available 11/08/2024 09:51:40 [...] - 10.5 K/uL 03/06 6:17 PM CDT [facility] Not Available Not Available 11/08/2024 09:51:40 03/06/20 24 03/06/2024 CBC W Auto Diffe renti al panel - Blood RBC 3.64 text: 4.50 - 5.40 M/uL low RBC 3.64 (L) 4.50 - 5.40 M/uL 03/06 6:17 PM CDT [facility] Not Available Not Available 11/08/2024 09:51:40 03/06/20 24 03/06/2024 CBC W Auto Diffe renti al panel - Blood hemoglobin 7.9 g/dL low: 13.6g/ dLhigh : 16.5g/ dL low HEMOG LOBIN 7.9 (L) 13.6 - 16.5 g/dL 03/06 6:17 PM CDT [facility] Not Available Not Available 11/08/2024 09:51:40 03/06/20 24 03/06/2024 CBC W Auto Diffe renti al panel - Blood hematocrit [volume fraction] of blood by automated count 26.9 % low: 40%hig h: 48% low HEMAT OCRIT 26.9 (L) 40.0 - 48.0 % 03/06 6:17 PM CDT [facility] Not Available Not Available 11/08/2024 09:51:40 03/06/20 24 03/06/2024 CBC W Auto Diffe renti al panel - Blood MCV 73.9 fL low: 82fLhi gh: 99fL low MCV 73.9 (L) 82.0 - 99.0 fL 03/06 6:17 PM CDT [facility] Not Available Not Available 11/08/2024 09:51:40 03/06/20 24 03/06/2024 CBC W Auto Diffe renti al panel - Blood MCH 21.8 pg low: 27.8pg high: 34.5pg low MCH 21.8 (L) 27.8 - 34.5 pg 03/06 6:17 PM CDT [facility] Not Available Not Available 11/08/2024 09:51:40 03/06/20 24 03/06/2024 CBC W Auto Diffe renti al panel - Blood MCHC 29.5 g/dL low: 32.5g/ dLhigh : 35.5g/ dL low MCHC 29.5 (L) 32.5 - 35.5 g/dL 03/06 6:17 PM CDT [facility] Not Available Not Available 11/08/2024 09:51:40 03/06/20 24 03/06/2024 CBC W Auto Diffe renti al panel - Blood RDW 21.8 % low: 11.5%h igh: 14.5% high RDW 21.8 (H) 11.5 - 14.5 % 03/06 6:17 PM T [facility] Not Available Not Available 11/08/2024 09:51:40 03/06/20 24 03/06/2024 CBC W Auto Diffe renti al panel - Blood platelets [#/volume] in blood by automated count 240 K/uL low: 160K/u Lhigh: 420K/u L PLATE LETS 240 160 - 420 K/uL 03/06 6:17 PM CDT [facility] Not Available Not Available 11/08/2024 09:51:40 03/06/20 24 03/06/2024 CBC W Auto Diffe renti al panel - Blood MPV 7.5 fL low: 8.7fLh igh: 12.7fL low MPV 7.5 (L) 8.7 - 12.7 fL 03/06 6:17 PM CDT [facility] Not Available Not Available 11/08/2024 09:51:40 03/06/20 24 03/06/2024 CBC W Auto Diffe renti al panel - Blood neutrophils 94 % NEUTR OPHIL S 94 % 03/06 6:17 PM CDT [facility] Not Available Not Available 11/08/2024 09:51:40 03/06/20 24 03/06/2024 CBC W Auto Diffe renti al panel - Blood lymphocytes/ 100 leukocytes in blood by automated count 2 % LYMPH OCYTE S 2 % 03/06 6:17 PM CDT [facility] Not Available Not Available 11/08/2024 09:51:40 03/06/20 24 03/06/2024 CBC W Auto Diffe renti al panel - Blood monocytes 4 % MONOC YTES 4 % 03/06 6:17 PM CDT [facility] Not Available Not Available 11/08/2024 09:51:40 03/06/20 24 03/06/2024 CBC W Auto Diffe renti al panel - Blood eosinophils 0 % EOSIN OPHIL S 0 % 03/06 6:17 PM CDT [facility] Not Available Not Available 11/08/2024 09:51:40 03/06/20 24 03/06/2024 CBC W Auto Diffe renti al panel - Blood basophils 0 % BASOP HILS 0 % 03/06 6:17 PM CDT [facility] Not Available Not Available 11/08/2024 09:51:40 03/06/20 24 03/06/2024 CBC W Auto Diffe renti al panel - Blood neutrophils [#/volume] in blood by automated count 5.6 K/uL low: 1.9K/u Lhigh: 7K/uL NEUTR OPHIL ABSOL TE-MOAK 5.60 1.90 - 7.00 K/uL 03/06 6:17 PM CDT [facility] Not Available Not Available 11/08/2024 09:51:40 03/06/20 24 03/06/2024 CBC W Auto Diffe rose al panel - Blood lymphocyte absolute 0.1 K/uL low: 0.7K/u Lhigh: 4.5K/u L low LYMPH OCYTE ABSOL TE-MOAK 0.10 (L) 0.70 - 4.50 K/uL 03/06 6:17 PM CDT [facility] Not Available Not Available 11/08/2024 09:51:40 03/06/20 24 03/06/2024 CBC W Auto Diffe rose al panel - Blood monocyte absolute 0.2 K/uL low: 0.1K/u Lhigh: 1.3K/u L MONOC YTE ABSOL TE-MOAK 0.20 0.10 - 1.30 K/uL 03/06 6:17 PM T [facility] Not Available Not Available 11/08/2024 09:51:40 03/06/20 24 03/06/2024 CBC W Auto Diffe rose al panel - Blood eosinophil absolute 0 K/uL low: 0K/uLh igh: 0.7K/u L EOSIN OPHIL ABSOL TE-MOAK 0.00 0.00 - 0.70 K/uL 03/06 6:17 PM CDT [facility] Not Available Not Available 11/08/2024 09:51:40 03/06/20 24 03/06/2024 CBC W Auto Diffe rose al panel - Blood basophils absolute 0 K/uL low: 0K/uLh igh: 0.2K/u L BASOP HILS ABSOL TE-MOAK 0.00 0.00 - 0.20 K/uL 03/06 6:17 PM CDT [facility] Not Available Not Available 11/08/2024 09:51:40 [...] 145 mmol/ L 03/07 8:17 AM CDT [facility] Not Available Not Available 11/08/2024 09:51:40 03/07/20 24 03/07/2024 Basic metab olic 1999 panel - Serum or Plasm a potassium [moles/volum e] in serum or plasma 4.9 mmol/ L low: 3.4mmo l/Lhig h: 5.1mmo l/L POTAS SIUM 4.9 3.4 - 5.1 mmol/ L 03/07 8:17 AM CDT [facility] Not Available Not Available 11/08/2024 09:51:40 03/07/20 24 03/07/2024 Basic metab olic 1999 panel - Serum or Plasm a chloride 98 mmol/ L low: 98mmol /Lhigh : 107mmo l/L CHLOR SYLVIA 98 98 - 107 mmol/ L 03/07 8:17 AM CDT [facility] Not Available Not Available 11/08/2024 09:51:40 03/07/20 24 03/07/2024 Basic metab olic 1999 panel - Serum or Plasm a carbon dioxide, total [moles/volum e] in serum or plasma 24 mmol/ L low: 22mmol /Lhigh : 29mmol /L CO2 24 22 - 29 mmol/ L 03/07 8:17 AM CDT [facility]ENTER[facility] Not Available Not Available 11/08/2024 09:51:40 03/07/20 24 03/07/2024 Basic metab olic 2000 panel - Serum or Plasm a calcium 8.2 mg/dL low: 8.6mg/ dLhigh : 10.4mg /dL low CALCI UM 8.2 (L) 8.6 - 10.4 mg/dL 03/07 8:17 AM [employer] [facility] Not Available Not Available 11/08/2024 09:51:40 03/07/20 24 03/07/2024 Basic metab olic 1999 panel - Serum or Plasm a BUN 28 mg/dL low: 6mg/dL high: 20mg/d L high BUN 28 (H) 6 - 20 mg/dL 03/07 8:17 AM [employer] [facility] Not Available Not Available 11/08/2024 09:51:40 03/07/20 24 03/07/2024 Basic metab olic 1999 panel - Serum or Plasm a creatinine [mass/volume ] in serum or plasma 0.75 mg/dL low: 0.67mg /dLhig h: 1.17mg /dL CREAT ININE 0.75 0.67 - 1.17 mg/dL 03/07 8:17 AM [employer] [facility] Not Available Not Available 11/08/2024 09:51:40 03/07/20 24 03/07/2024 Basic metab olic 1999 panel - Serum or Plasm a glucose [mass/volume ] in serum or plasma 313 mg/dL low: 74mg/d Lhigh: 99mg/d L high GLUCO SE 313 (H) 74 - 99 mg/dL 03/07 8:17 AM [employer] [facility] Not Available Not Available 11/08/2024 09:51:40 03/07/20 24 03/07/2024 Basic metab olic 1999 panel - Serum or Plasm a glomerular filtration rate/1.73 sq M.predicted [volume rate/area] in serum, plasma or blood by creatinine-b ased formula (CKD-epi 2020) text: >=60 mL/min /1.73 sq meter GFR >60 >=60 mL/mi n/1.7 3 sq meter 03/07 8:17 AM CDT [facility] Not Available Not Available 11/08/2024 09:51:40 03/07/20 24 03/07/2024 Basic metab olic 2000 panel - Serum or Plasm a anion gap 12 mmol/ L low: 8mmol/ Lhigh: 16mmol /L ANION GAP 12 8 - 16 mmol/ L 03/07 8:17 AM CDT [facility] Not Available Not Available 11/08/2024 09:51:40 [...] 4.5 - 10.5 K/uL 03/07 7:49 AM CDT [facility] Not Available Not Available 11/08/2024 09:51:40 03/07/20 24 03/07/2024 CBC W Auto Diffe renti al panel - Blood RBC 3.62 text: 4.50 - 5.40 M/uL low RBC 3.62 (L) 4.50 - 5.40 M/uL 03/07 7:49 AM [facility]DEna [facility] Not Available Not Available 11/08/2024 09:51:40 03/07/20 24 03/07/2024 CBC W Auto Diffe renti al panel - Blood hemoglobin 8 g/dL low: 13.6g/ dLhigh : 16.5g/ dL low HEMOG LOBIN 8.0 (L) 13.6 - 16.5 g/dL 03/07 7:49 AM CDEna [facility]ERSulaim[facility] Not Available Not Available 11/08/2024 09:51:40 03/07/20 24 03/07/2024 CBC W Auto Diffe renti al panel - Blood hematocrit [volume fraction] of blood by automated count 26.9 % low: 40%hig h: 48% low HEMAT OCRIT 26.9 (L) 40.0 - 48.0 % 03/07 7:49 AM [email or web address] [facility] Not Available Not Available 11/08/2024 09:51:40 03/07/20 24 03/07/2024 CBC W Auto Diffe renti al panel - Blood MCV 74.1 fL low: 82fLhi gh: 99fL low MCV 74.1 (L) 82.0 - 99.0 fL 03/07 7:49 AM [email or web address] [facility] Not Available Not Available 11/08/2024 09:51:40 03/07/20 24 03/07/2024 CBC W Auto Diffe renti al panel - Blood MCH 21.9 pg low: 27.8pg high: 34.5pg low MCH 21.9 (L) 27.8 - 34.5 pg 03/07 7:49 AM [email or web address] Not [facility] Not Available 11/08/2024 09:51:40 03/07/20 24 03/07/2024 CBC W Auto Diffe renti al panel - Blood MCHC 29.6 g/dL low: 32.5g/ dLhigh : 35.5g/ dL low MCHC 29.6 (L) 32.5 - 35.5 g/dL 03/07 7:49 AM [email or web address] [facility] Not Available Not Available 11/08/2024 09:51:40 03/07/20 24 03/07/2024 CBC W Auto Diffe renti al panel - Blood RDW 21.8 % low: 11.5%h igh: 14.5% high RDW 21.8 (H) 11.5 - 14.5 % 03/07 7:49 AM [email or web address] [facility] Not Available Not Available 11/08/2024 09:51:40 03/07/20 24 03/07/2024 CBC W Auto Diffe renti al panel - Blood platelets [#/volume] in blood by automated count 222 K/uL low: 160K/u Lhigh: 420K/u L PLATE LETS 222 160 - 420 K/uL 03/07 7:49 AM [facility] Not Available 11/08/2024 09:51:40 03/07/20 24 03/07/2024 CBC W Auto Diffe renti al panel - Blood MPV 7.2 fL low: 8.7fLh igh: 12.7fL low MPV 7.2 (L) 8.7 - 12.7 fL 03/07 7:49 AM CDT [facility] Not Available Not Available 11/08/2024 09:51:40 03/07/20 24 03/07/2024 CBC W Auto Diffe renti al panel - Blood neutrophils 91 % NEUTR OPHIL S 91 % 03/07 7:49 AM CDT [facility] Not Available Not Available 11/08/2024 09:51:40 03/07/20 24 03/07/2024 CBC W Auto Diffe renti al panel - Blood lymphocytes/ 100 leukocytes in blood by automated count 2 % LYMPH OCYTE S 2 % 03/07 7:49 AM CDT [facility] Not Available Not Available 11/08/2024 09:51:40 03/07/20 24 03/07/2024 CBC W Auto Diffe renti al panel - Blood monocytes 6 % MONOC YTES 6 % 03/07 7:49 AM CDT [facility] Not Available Not Available 11/08/2024 09:51:40 03/07/20 24 03/07/2024 CBC W Auto Diffe renti al panel - Blood eosinophils 0 % EOSIN OPHIL S 0 % 03/07 7:49 AM CDT [facility] Not Available Not Available 11/08/2024 09:51:40 03/07/20 24 03/07/2024 CBC W Auto Diffe renti al panel - Blood basophils 1 % BASOP HILS 1 % 03/07 7:49 AM [employer] [facility] Not Available Not Available 11/08/2024 09:51:40 03/07/20 24 03/07/2024 CBC W Auto Diffe renti al panel - Blood neutrophils [#/volume] in blood by automated count 6.3 K/uL low: 1.9K/u Lhigh: 7K/uL NEUTR OPHIL ABSOL TE-MOAK 6.30 1.90 - 7.00 K/uL 03/07 7:49 AM [facility] Not Available 11/08/2024 09:51:40 03/07/20 24 03/07/2024 CBC W Auto Diffe renti al panel - Blood lymphocyte absolute 0.2 K/uL low: 0.7K/u Lhigh: 4.5K/u L low LYMPH OCYTE ABSOL TE-MOAK 0.20 (L) 0.70 - 4.50 K/uL 03/07 7:49 AM [facility] Not Available 11/08/2024 09:51:40 03/07/20 24 03/07/2024 CBC W Auto Diffe renti al panel - Blood monocyte absolute 0.4 K/uL low: 0.1K/u Lhigh: 1.3K/u L MONOC YTE ABSOL TE-MOAK 0.40 0.10 - 1.30 K/uL 03/07 7:49 AM [facility] Not Available 11/08/2024 09:51:40 03/07/20 24 03/07/2024 CBC W Auto Diffe renti al panel - Blood eosinophil absolute 0 K/uL low: 0K/uLh igh: 0.7K/u L EOSIN OPHIL ABSOL TE-MOAK 0.00 0.00 - 0.70 K/uL 03/07 7:49 AM [facility] Not [facility] Not Available 11/08/2024 09:51:40 03/07/20 24 03/07/2024 CBC W Auto Diffe renti al panel - Blood basophils absolute 0 K/uL low: 0K/uLh igh: 0.2K/u L BASOP HILS ABSOL TE-MOAK 0.00 0.00 - 0.20 K/uL 03/07 7:49 AM [facility] Not [facility] Not Available 11/08/2024 09:51:40 [...] - 145 mmol/ L 03/08 7:[address] [facility] Not [facility] Not Available 11/08/2024 09:51:40 03/08/20 24 03/08/2024 Basic metab olic 1999 panel - Serum or Plasm a potassium [moles/volum e] in serum or plasma 4.2 mmol/ L low: 3.4mmo l/Lhig h: 5.1mmo l/L POTAS SIUM 4.2 3.4 - 5.1 mmol/ L 03/08 7:[address] [facility] Not Available Not Available 11/08/2024 09:51:40 03/08/20 24 03/08/2024 Basic metab olic 1999 panel - Serum or Plasm a chloride 100 mmol/ L low: 98mmol /Lhigh : 107mmo l/L CHLOR SYLVIA 100 98 - 107 mmol/ L 03/08 7:[address] [facility] Not Available Not Available 11/08/2024 09:51:40 03/08/20 24 03/08/2024 Basic metab olic 1999 panel - Serum or Plasm a carbon dioxide, total [moles/volum e] in serum or plasma 28 mmol/ L low: 22mmol /Lhigh : 29mmol /L CO2 28 22 - 29 mmol/ L 03/08 7:08 AM CDT [facility] Not Available Not Available 11/08/2024 09:51:40 03/08/20 24 03/08/2024 Basic metab olic 1999 panel - Serum or Plasm a calcium 8.9 mg/dL low: 8.6mg/ dLhigh : 10.4mg /dL CALCI UM 8.9 8.6 - 10.4 mg/dL 03/08 7:[address] [facility] Not Available Not Available 11/08/2024 09:51:40 03/08/20 24 03/08/2024 Basic metab olic 1999 panel - Serum or Plasm a BUN 27 mg/dL low: 6mg/dL high: 20mg/d L high BUN 27 (H) 6 - 20 mg/dL 03/08 7:[address] [facility] Not Available Not Available 11/08/2024 09:51:40 03/08/20 24 03/08/2024 Basic metab olic 2000 panel - Serum or Plasm a creatinine [mass/volume ] in serum or plasma 0.86 mg/dL low: 0.67mg /dLhig h: 1.17mg /dL CREAT ININE 0.86 0.67 - 1.17 mg/dL 03/08 7:[address] [facility] Not Available Not Available 11/08/2024 09:51:40 03/08/20 24 03/08/2024 Basic metab olic 2000 panel - Serum or Plasm a glucose [mass/volume ] in serum or plasma 156 mg/dL low: 74mg/d Lhigh: 99mg/d L high GLUCO SE 156 (H) 74 - 99 mg/dL 03/08 7:08 AM [employer] [facility] Not Available Not Available 11/08/2024 09:51:40 03/08/20 24 03/08/2024 Basic metab olic 2000 panel - Serum or Plasm a glomerular filtration rate/1.73 sq M.predicted [volume rate/area] in serum, plasma or blood by creatinine-b ased formula (CKD-epi 2020) text: >=60 mL/min /1.73 sq meter GFR >60 >=60 mL/mi n/1.7 3 sq meter 03/08 7:08 AM CDT [facility] Not Available Not Available 11/08/2024 09:51:40 03/08/20 24 03/08/2024 Basic metab olic 2000 panel - Serum or Plasm a anion gap 7 mmol/ L low: 8mmol/ Lhigh: 16mmol /L low ANION GAP 7 (L) 8 - 16 mmol/ L 03/08 7:08 AM CDT [facility] Not Available Not Available 11/08/2024 09:51:40 [...] 4.5 - 10.5 K/uL 03/08 6:41 AM CDT [facility] Not Available Not Available 11/08/2024 09:51:40 03/08/20 24 03/08/2024 CBC W Auto Diffe renti al panel - Blood RBC 3.72 text: 4.50 - 5.40 M/uL low RBC 3.72 (L) 4.50 - 5.40 M/uL 03/08 6:41 AM CDT [facility] Not Available Not Available 11/08/2024 09:51:40 03/08/20 24 03/08/2024 CBC W Auto Diffe renti al panel - Blood hemoglobin 8.2 g/dL low: 13.6g/ dLhigh : 16.5g/ dL low HEMOG LOBIN 8.2 (L) 13.6 - 16.5 g/dL 03/08 6:41 AM CDT [facility] Not Available Not Available 11/08/2024 09:51:40 03/08/20 24 03/08/2024 CBC W Auto Diffe renti al panel - Blood hematocrit [volume fraction] of blood by automated count 28.5 % low: 40%hig h: 48% low HEMAT OCRIT 28.5 (L) 40.0 - 48.0 % 03/08 6:[address] [facility] [employer] [facility] Not Available Not Available 11/08/2024 09:51:40 03/08/20 24 03/08/2024 CBC W Auto Diffe renti al panel - Blood MCV 76.5 fL low: 82fLhi gh: 99fL low MCV 76.5 (L) 82.0 - 99.0 fL 03/08 6:41 AM [facility] Not Available Not Available 11/08/2024 09:51:40 03/08/20 24 03/08/2024 CBC W Auto Diffe renti al panel - Blood MCH 22 pg low: 27.8pg high: 34.5pg low MCH 22.0 (L) 27.8 - 34.5 pg 03/08 6:41 AM [facility] Not Available Not Available 11/08/2024 09:51:40 03/08/20 24 03/08/2024 CBC W Auto Diffe renti al panel - Blood MCHC 28.8 g/dL low: 32.5g/ dLhigh : 35.5g/ dL low MCHC 28.8 (L) 32.5 - 35.5 g/dL 03/08 6:41 AM [facility] Not Available Not Available 11/08/2024 09:51:40 03/08/20 24 03/08/2024 CBC W Auto Diffe renti al panel - Blood RDW 22.8 % low: 11.5%h igh: 14.5% high RDW 22.8 (H) 11.5 - 14.5 % 03/08 6:41 AM [employer] STUARTImpact Solutions ConsultingSulaiman [facility] Not Available Not Available 11/08/2024 09:51:40 03/08/20 24 03/08/2024 CBC W Auto Diffe renti al panel - Blood platelets [#/volume] in blood by automated count 225 K/uL low: 160K/u Lhigh: 420K/u L PLATE LETS 225 160 - 420 K/uL 03/08 6:41 AM CDT [facility] Not Available Not Available 11/08/2024 09:51:40 03/08/20 24 03/08/2024 CBC W Auto Diffe renti al panel - Blood MPV 7.2 fL low: 8.7fLh igh: 12.7fL low MPV 7.2 (L) 8.7 - 12.7 fL 03/08 6:41 AM CDT [facility] Not Available Not Available 11/08/2024 09:51:40 03/08/20 24 03/08/2024 CBC W Auto Diffe renti al panel - Blood neutrophils 77 % NEUTR OPHIL S 77 % 03/08 6:41 AM CDT [facility] Not Available Not Available 11/08/2024 09:51:40 03/08/20 24 03/08/2024 CBC W Auto Diffe renti al panel - Blood lymphocytes/ 100 leukocytes in blood by automated count 8 % LYMPH OCYTE S 8 % 03/08 6:41 AM CDT [facility] Not Available Not Available 11/08/2024 09:51:40 03/08/20 24 03/08/2024 CBC W Auto Diffe renti al panel - Blood monocytes 11 % MONOC YTES 11 % 03/08 6:41 AM CDT [employer] [facility] Not Available Not Available 11/08/2024 09:51:40 03/08/20 24 03/08/2024 CBC W Auto Diffe renti al panel - Blood eosinophils 4 % EOSIN OPHIL S 4 % 03/08 6:41 AM CDT [facility] Not Available Not Available 11/08/2024 09:51:40 03/08/20 24 03/08/2024 CBC W Auto Diffe renti al panel - Blood basophils 0 % BASOP HILS 0 % 03/08 6:41 AM CDT [facility] Not Available Not Available 11/08/2024 09:51:40 03/08/20 24 03/08/2024 CBC W Auto Diffe renti al panel - Blood neutrophils [#/volume] in blood by automated count 7.6 K/uL low: 1.9K/u Lhigh: 7K/uL high NEUTR OPHIL ABSOL TE-MOAK 7.60 (H) 1.90 - 7.00 K/uL 03/08 6:41 AM CDT [facility] Not Available Not Available 11/08/2024 09:51:40 03/08/20 24 03/08/2024 CBC W Auto Diffe renti al panel - Blood lymphocyte absolute 0.8 K/uL low: 0.7K/u Lhigh: 4.5K/u L LYMPH OCYTE ABSOL TE-MOAK 0.80 0.70 - 4.50 K/uL 03/08 6:41 AM CDT [facility] Not Available Not Available 11/08/2024 09:51:40 03/08/20 24 03/08/2024 CBC W Auto Diffe renti al panel - Blood monocyte absolute 1 K/uL low: 0.1K/u Lhigh: 1.3K/u L MONOC YTE ABSOL TE-MOAK 1.00 0.10 - 1.30 K/uL 03/08 6:41 AM CDT [facility] Not Available Not Available 11/08/2024 09:51:40 03/08/20 24 03/08/2024 CBC W Auto Diffe renti al panel - Blood eosinophil absolute 0.4 K/uL low: 0K/uLh igh: 0.7K/u L EOSIN OPHIL ABSOL TE-MOAK 0.40 0.00 - 0.70 K/uL 03/08 6:41 AM [email or web address] [facility] Not Available Not Available 11/08/2024 09:51:40 03/08/20 24 03/08/2024 CBC W Auto Diffe renti al panel - Blood basophils absolute 0 K/uL low: 0K/uLh igh: 0.2K/u L BASOP HILS ABSOL TE-MOAK 0.00 0.00 - 0.20 K/uL 03/08 6:41 AM CDT [facility] Not Available Not Available 11/08/2024 09:51:40 [...] DO Not Attach Compendium, Do Not Delete/merge, [id number] 03/11/2024 13:19:50 03/11/20 24 03/11/2024 HbA1c (hemo globi n A1c), blood HbA1c 7.3 Not Available In-Office Order Internal Use Only DO Not Attach Compendium DO Not Attach Compendium, Do Not Delete/merge, [id number] 03/11/2024 13:19:39 03/19/20 24 03/19/2024 Gluco se [Mass /volu me] in Blood by Autom ated test strip glucose [mass/volume ] in blood by automated test strip 130 mg/dL low: 70mg/d Lhigh: 99mg/d L high GLUCO SE POC 130 (H) 70 - 99 mg/dL 03/19 9:45 PM CDT [facility] Not Available Not Available 12/11/2024 [...] URINE CLEAN CATCH 03/19 8:[address] [facility] Not Available Not Available 12/11/2024 16:17:37 03/19/20 24 03/19/2024 Urina lysis compl ete panel - Urine color of urine YELLOW COLOR (U) YELLO W 03/19 9:[address] [facility] Not Available Not Available 12/11/2024 16:17:37 03/19/20 24 03/19/2024 Urina lysis compl ete panel - Urine clarity of urine CLEAR TRANS PAREN CY CLEAR 03/19 9:[address] [facility] Not Available Not Available 12/11/2024 16:17:37 03/19/20 24 03/19/2024 Urina lysis compl ete panel - Urine specific gravity of urine 1.032 low: 1.001h igh: 1.03 high SPECI FIC GRAVI TY (U) 1.032 (H) 1.001 - 1.030 03/19 9:[address] [facility] Not Available Not Available 12/11/2024 16:17:37 03/19/20 24 03/19/2024 Urina lysis compl ete panel - Urine pH of urine 6 low: 5high: 9 U PH 6.0 5.0 - 9.0 03/19 9:[address] [facility] Not Available Not Available 12/11/2024 16:17:37 03/19/20 24 03/19/2024 Urina lysis compl ete panel - Urine leukocytes [#/volume] in urine by test strip NEGATI VE text: negati ve LEUKO CYTES (U) NEGAT JOSEPH NEGAT JOSEPH 03/19 9:[address] [facility] Not Available Not Available 12/11/2024 16:17:37 03/19/20 24 03/19/2024 Urina lysis compl ete panel - Urine nitrite [presence] in urine NEGATI VE text: negati ve NITRI ALYSA NEGAT JOSEPH NEGAT JOSEPH 03/19 9:11 PM CDT [facility] Not Available Not Available 12/11/2024 16:17:37 03/19/20 24 03/19/2024 Urina lysis compl ete panel - Urine protein [mass/volume ] in urine by test strip 30 text: <30 mg/dL high PROTE IN RANDO M (U) 30 (H) <30 MG/DL 03/19 9:11 PM CDT [facility] Not Available Not Available 12/11/2024 16:17:37 03/19/20 24 03/19/2024 Urina lysis compl ete panel - Urine glucose [mass/volume ] in urine NORMAL text: normal mg/dL GLUCO SE (U) BETTIE L BETTIE L MG/DL 03/19 9:11 PM CDT [facility] Not Available Not Available 12/11/2024 16:17:37 03/19/20 24 03/19/2024 Urina lysis compl ete panel - Urine ketones [mass/volume ] in urine by test strip NEGATI VE text: negati ve mg/dL KETON ES MG/DL (U) NEGAT JOSEPH NEGAT JOSEPH MG/DL 03/19 9:11 PM CDT [facility] Not Available Not Available 12/11/2024 16:17:37 03/19/20 24 03/19/2024 Urina lysis compl ete panel - Urine urobilinogen [units/volum e] in urine by test strip 3 text: normal mg/dL abnormal UROBI LINOG EN 3.0 (A) BETTIE L MG/DL 03/19 9:11 PM T [facility] Not Available Not Available 12/11/2024 16:17:37 03/19/20 24 03/19/2024 Urina lysis compl ete panel - Urine bilirubin.to kelly [mass/volume ] in urine NEGATI VE text: negati ve mg/dL BILIR UBIN (U) NEGAT JOSEPH NEGAT JOSEPH MG/DL 03/19 9:[address] [facility] Not Available Not Available 12/11/2024 16:17:37 03/19/20 24 03/19/2024 Urina lysis compl ete panel - Urine erythrocytes [#/volume] in urine by automated test strip NEGATI VE text: negati ve BLOOD (U) NEGAT JOSEPH NEGAT JOSEPH 03/19 9:[address] [facility] Not Available Not Available 12/11/2024 16:17:37 03/19/20 24 03/19/2024 Urina lysis compl ete panel - Urine hyaline casts [#/area] in urine sediment by microscopy low power field RARE text: /lpf HYALI NE CASTS RARE /LPF 03/19 9:[address] [facility] Not Available Not Available 12/11/2024 16:17:37 03/19/20 24 03/19/2024 Urina lysis compl ete panel - Urine leukocytes [#/area] in urine sediment by microscopy high power field 2 text: <6 /hpf WBC/H PF 2 <6 /HPF 03/19 9:[address] [facility] Not Available Not Available 12/11/2024 16:17:37 03/19/20 24 03/19/2024 Urina lysis compl ete panel - Urine erythrocytes [#/area] in urine sediment by microscopy high power field 3 text: <6 /hpf RBC/H PF 3 <6 /HPF 03/19 9:[address] [facility] Not Available Not Available 12/11/2024 [...] 11.0 x10'3 /uL 03/19 7:[address] [facility] Not Available Not Available 12/11/2024 16:17:37 03/19/20 24 03/19/2024 CBC W Auto Diffe renti al panel - Blood erythrocytes [#/volume] in blood by automated count 3.45 text: 4.70 - 6.10 x10'6/ uL low RBC 3.45 (L) 4.70 - 6.10 x10'6 /uL 03/19 7:[address] [facility] Not Available Not Available 12/11/2024 16:17:37 03/19/20 24 03/19/2024 CBC W Auto Diffe renti al panel - Blood hemoglobin [mass/volume ] in blood 7.7 text: 14.0 - 18.0 g/dL low HGB 7.7 (L) 14.0 - 18.0 G/DL 03/19 7:[address] [facility] Not Available Not Available 12/11/2024 16:17:37 03/19/20 24 03/19/2024 CBC W Auto Diffe renti al panel - Blood hematocrit [volume fraction] of blood by calculation 27.1 % low: 43%hig h: 54% low HCT 27.1 (L) 43.0 - 54.0 % 03/19 7:[address] [facility] Not Available Not Available 12/11/2024 16:17:37 03/19/20 24 03/19/2024 CBC W Auto Diffe renti al panel - Blood MCV [entitic mean volume] in red blood cells 78.6 text: 80.0 - 94.0 fL low MCV 78.6 (L) 80.0 - 94.0 FL 03/19 7:[address] [facility] Not Available Not Available 12/11/2024 16:17:37 03/19/20 24 03/19/2024 CBC W Auto Diffe renti al panel - Blood MCH [entitic mass] 22.3 pg low: 27pghi gh: 31pg low MCH 22.3 (L) 27.0 - 31.0 PG 03/19 7:[address] [facility] Not Available Not Available 12/11/2024 16:17:37 03/19/20 24 03/19/2024 CBC W Auto Diffe renti al panel - Blood MCHC [entitic mass/volume] in red blood cells 28.4 text: 32.0 - 36.0 g/dL low MCHC 28.4 (L) 32.0 - 36.0 G/DL 03/19 7:[address] [facility] Not Available Not Available 12/11/2024 16:17:37 03/19/20 24 03/19/2024 CBC W Auto Diffe renti al panel - Blood RDW 23.2 % low: 11.5%h igh: 14.5% high RDW 23.2 (H) 11.5 - 14.5 % 03/19 7:[address] [facility] Not Available Not Available 12/11/2024 16:17:37 03/19/20 24 03/19/2024 CBC W Auto Diffe renti al panel - Blood platelets [#/volume] in blood 303 text: 130 - 400 x10'3/ uL PLT 303 130 - 400 x10'3 /uL 03/19 7:[address] [facility] Not Available Not Available 12/11/2024 16:17:37 03/19/20 24 03/19/2024 CBC W Auto Diffe renti al panel - Blood platelet [entitic mean volume] in blood 10.3 text: 9.3 - 12.2 fL MPV 10.3 9.3 - 12.2 FL 03/19 7:[address] [facility] Not Available Not Available 12/11/2024 16:17:37 03/19/20 24 03/19/2024 CBC W Auto Diffe renti al panel - Blood differential cell count method - blood AUTOMA ANIBAL DIFFER ENTIAL DIFFE RENTI AL TYPE AUTOM ATED DIFFE RENTI AL 03/19 7:[address] [facility] Not Available Not Available 12/11/2024 16:17:37 03/19/20 24 03/19/2024 CBC W Auto Diffe renti al panel - Blood neutrophils/ leukocytes in blood by automated count 69.5 % NEUTR OPHIL S % 69.5 % 03/19 7:[address] [facility] Not Available Not Available 12/11/2024 16:17:37 03/19/20 24 03/19/2024 CBC W Auto Diffe renti al panel - Blood lymphocytes/ leukocytes in blood by automated count 19.4 % LYMPH OCYTE S % 19.4 % 03/19 7:[address] [facility] Not Available Not Available 12/11/2024 16:17:37 03/19/20 24 03/19/2024 CBC W Auto Diffe renti al panel - Blood monocytes/le ukocytes in blood by automated count 10.1 % MONOC YTES % 10.1 % 03/19 7:[address] [facility] Not Available Not Available 12/11/2024 16:17:37 03/19/20 24 03/19/2024 CBC W Auto Diffe renti al panel - Blood eosinophils/ leukocytes in blood by automated count 0.4 % EOSIN OPHIL S 0.4 % 03/19 7:[address] [facility] Not Available Not Available 12/11/2024 16:17:37 03/19/20 24 03/19/2024 CBC W Auto Diffe renti al panel - Blood basophils/le ukocytes in blood by automated count 0.1 % BASOP HILS 0.1 % 07/23 /2024 7:[address] [facility] Not Available Not Available 12/11/2024 16:17:37 03/19/20 24 03/19/2024 CBC W Auto Diffe renti al panel - Blood immature granulocytes /leukocytes in blood by automated count 0.5 % IMMAT URE GRANS % 0.5 % 03/19 7:[address] [facility] Not Available Not Available 12/11/2024 16:17:37 03/19/20 24 03/19/2024 CBC W Auto Diffe renti al panel - Blood neutrophils [#/volume] in blood 5.69 text: 1.80 - 7.70 x10'3/ uL ABS. NEUTR OPHIL S 5.69 1.80 - 7.70 x10'3 /uL 03/19 7:[address] [facility] Not Available Not Available 12/11/2024 16:17:37 03/19/20 24 03/19/2024 CBC W [employer]iffe renti al panel - Blood lymphocytes [#/volume] in blood 1.59 text: 1.00 - 4.80 x10'3/ uL ABS. LYMPH OCYTE S 1.59 1.00 - 4.80 x10'3 /uL 03/19 7:[address] [facility] Not Available Not Available 12/11/2024 16:17:37 03/19/20 24 03/19/2024 CBC W Auto Diffe renti al panel - Blood monocytes [#/volume] in blood 0.83 text: 0.30 - 0.82 x10'3/ uL high ABS. MONOC YTES 0.83 (H) 0.30 - 0.82 x10'3 /uL 03/19 7:[address] [facility] Not Available Not Available 12/11/2024 16:17:37 03/19/20 24 03/19/2024 CBC W Auto Diffe renti al panel - Blood eosinophils [#/volume] in blood 0.03 text: 0.04 - 0.54 x10'3/ uL low ABS. EOSIN OPHIL S 0.03 (L) 0.04 - 0.54 x10'3 /uL 03/19 7:[address] [facility] Not Available Not Available 12/11/2024 16:17:37 03/19/20 24 03/19/2024 CBC W Auto Diffe renti al panel - Blood basophils [#/volume] in blood 0.01 text: 0.01 - 0.08 x10'3/ uL ABS. BASOP HILS 0.01 0.01 - 0.08 x10'3 /uL 03/19 7:[address] [facility] Not Available Not Available 12/11/2024 16:17:37 03/19/20 24 03/19/2024 CBC W Auto Diffe renti al panel - Blood immature granulocytes [#/volume] in blood 0.04 text: 0.00 - 0.49 x10'3/ uL ABS. IMMAT URE GRANU LOCYT ES 0.04 0.00 - 0.49 x10'3 /uL 03/19 7:[address] [facility] Not Available Not Available 12/11/2024 16:17:37 03/19/20 24 03/19/2024 CBC W Auto Diffe renti al panel - Blood erythrocytes [morphology] in blood by automated count SLIDE REVIEW ED RBC MORPH OLOGY SLIDE REVIE WED 03/19 7:[address] [facility] Not Available Not Available 12/11/2024 16:17:37 03/19/20 24 03/19/2024 CBC W Auto Diffe renti al panel - Blood anisocytosis [presence] in blood 2+ ANISO 2+ 03/19 7:[address] [facility] Not Available Not Available 12/11/2024 16:17:37 03/19/20 24 03/19/2024 CBC W Auto Diffe renti al panel - Blood platelets [#/volume] in blood by automated count ADEQUA TE PLT EST. ADEQU ATE 03/19 7:[address] [facility] Not Available Not Available 12/11/2024 [...] - 99 MG/DL 03/19 4:[address] [facility] Not Available Not Available 12/11/2024 16:17:37 03/19/20 24 03/19/2024 Compr ehens joseph metab olic 1999 panel - Serum or Plasm a urea nitrogen [mass/volume ] in serum or plasma 18 text: 7 - 18 mg/dL BUN 18 7 - 18 MG/DL 03/19 4:[address] [facility] Not Available Not Available 12/11/2024 16:17:37 03/19/20 24 03/19/2024 Compr ehens joseph metab olic 1999 panel - Serum or Plasm a creatinine [mass/volume ] in serum or plasma 1.04 text: 0.7 - 1.3 mg/dL CREAT ININE S/P/B 1.04 0.7 - 1.3 MG/DL 03/19 4:[address] [facility] Not Available Not Available 12/11/2024 16:17:37 03/19/20 24 03/19/2024 Compr ehens joseph metab olic 2000 panel - Serum or Plasm a sodium [moles/volum e] in serum or plasma 135 text: 136 - 145 mmol/L low SODIU M S/P/B 135 (L) 136 - 145 MMOL/ L 03/19 4:05 PM CDT [facility] Not Available Not Available 12/11/2024 16:17:37 03/19/20 24 03/19/2024 Compr ehens joseph metab olic 2000 panel - Serum or Plasm a potassium [moles/volum e] in serum or plasma 4.4 text: 3.5 - 5.1 mmol/L POTAS SIUM S/P/B 4.4 3.5 - 5.1 MMOL/ L 03/19 4:05 PM CDT [facility] Not Available Not Available 12/11/2024 16:17:37 03/19/20 24 03/19/2024 Compr ehens joseph metab olic 1999 panel - Serum or Plasm a chloride [moles/volum e] in serum or plasma 101 text: 100 - 108 mmol/L CHLOR SYLVIA S/P/B 101 100 - 108 MMOL/ L 03/19 4:[address] [facility] Not Available Not Available 12/11/2024 16:17:37 03/19/20 24 03/19/2024 Compr ehens joseph metab olic 2000 panel - Serum or Plasm a carbon dioxide, total [moles/volum e] in serum or plasma 29.7 text: 21 - 32 mmol/L CO2 29.7 21 - 32 MMOL/ L 03/19 4:05 PM CDT [facility] Not Available Not Available 12/11/2024 16:17:37 03/19/20 24 03/19/2024 Compr ehens joseph metab olic 2000 panel - Serum or Plasm a calcium [mass/volume ] in serum or plasma 8.7 text: 8.5 - 10.1 mg/dL CALCI UM S/P/B 8.7 8.5 - 10.1 MG/DL 03/19 4:05 PM CDT [facility] Not Available Not Available 12/11/2024 16:17:37 03/19/20 24 03/19/2024 Compr ehens joseph metab olic 2000 panel - Serum or Plasm a bilirubin.to kelly [mass/volume ] in serum or plasma 0.3 text: 0.2 - 1.2 mg/dL BILIR UBIN TOTAL S/P/B 0.3 0.2 - 1.2 MG/DL 03/19 4:[address] [facility] Not Available Not Available 12/11/2024 16:17:37 03/19/20 24 03/19/2024 Compr ehens joseph metab olic 1999 panel - Serum or Plasm a protein [mass/volume ] in serum or plasma 5.9 text: 6.4 - 8.2 g/dL low TOTAL PROTE IN S/P/B 5.9 (L) 6.4 - 8.2 G/DL 03/19 4:[address] [facility] Not Available Not Available 12/11/2024 16:17:37 03/19/20 24 03/19/2024 Compr ehens joseph metab olic 1999 panel - Serum or Plasm a albumin [mass/volume ] in serum or plasma 3 text: 3.4 - 5.0 g/dL low ALBUM IN S/P/B 3.0 (L) 3.4 - 5.0 G/DL 03/19 4:[address] [facility] Not Available Not Available 12/11/2024 16:17:37 03/19/20 24 03/19/2024 Compr ehens joseph metab olic 1999 panel - Serum or Plasm a aspartate aminotransfe rase [enzymatic activity/vol ume] in serum or plasma 31 U/L low: 15U/Lh igh: 37U/L AST 31 15 - 37 U/L 03/19 4:[address] [facility] Not Available Not Available 12/11/2024 16:17:37 03/19/20 24 03/19/2024 Compr ehens joseph metab olic 2000 panel - Serum or Plasm a alanine aminotransfe rase [enzymatic activity/vol ume] in serum or plasma 34 U/L low: 16U/Lh igh: 60U/L ALT 34 16 - 60 U/L 03/19 4:[address] [facility] Not Available Not Available 12/11/2024 16:17:37 03/19/20 24 03/19/2024 Compr ehens joseph metab olic 2000 panel - Serum or Plasm a alkaline phosphatase [enzymatic activity/vol ume] in serum or plasma 112 U/L low: 50U/Lh igh: 136U/L ALKAL INE PHOSP HATAS E S/P/B 112 50 - 136 U/L 03/19 4:[address] [facility] Not Available Not Available 12/11/2024 16:17:37 03/19/20 24 03/19/2024 Compr ehens joseph metab olic 2000 panel - Serum or Plasm a anion gap in serum or plasma by calculation 4.3 text: 5 - 15 mmol/L low ANION GAP 4.3 (L) 5 - 15 MMOL/ L 03/19 4:[address] [facility] Not Available Not Available 12/11/2024 16:17:37 03/19/20 24 03/19/2024 Compr ehens joseph metab olic 1999 panel - Serum or Plasm a urea nitrogen/cre atinine [mass ratio] in serum or plasma 17.3 low: 6high: 26 BUN CREAT ININE RATIO 17.3 6 - 26 03/19 4:[address] [facility] Not Available Not Available 12/11/2024 16:17:37 03/19/20 24 03/19/2024 Compr ehens joseph metab olic 2000 panel - Serum or Plasm a albumin/glob ulin [mass ratio] in serum or plasma 1 text: 1.0 - 2.0 ratio A/G RATIO 1.0 1.0 - 2.0 RATIO 03/19 4:[address] [facility] Not Available Not Available 12/11/2024 16:17:37 03/19/20 24 03/19/2024 Compr ehens joseph metab olic 2000 panel - Serum or Plasm a glomerular filtration rate [volume rate/area] in serum, plasma or blood by creatinine-b ased formula (CKD-epi 2020)/1.73 sq M 78 text: >90 mL/min /1.73 M2 low GFR ESTIM ATE 78 (L) >90 ML/OK N/1.7 3 M2 03/19 4:05 PM [facility] Not Available Not Available [...] - 12.9 SEC 03/19 5:19 PM CDT [facility] Not Available Not Available 12/11/2024 16:17:37 03/19/20 24 03/19/2024 Proth rombi n time (PT) INR in platelet poor plasma by coagulation assay 1.3 INR 1.3 03/19 5:19 PM CDT [facility] Not Available Not Available [...] - 99 mg/dL 03/20 8:26 PM CDT [facility] Not Available Not Available [...] - 99 mg/dL 03/20 4:[address] [facility] Not Available Not Available 12/11/2024 [...] O POSIT JOSEPH 03/20 1:[address] [facility] Not Available Not Available 12/11/2024 16:17:38 03/20/20 24 03/20/2024 Blood type and Indir ect antib brigid scree n panel - Blood blood group antibody screen [presence] in serum or plasma NEGATI VE ANTIB BRIGID SCREE N NEGAT JOSEPH 03/20 1:[address] [facility] Not Available Not Available 12/11/2024 16:17:38 03/20/20 24 03/20/2024 Blood type and Indir ect antib brigid scree n panel - Blood specimen expiration date of blood 2023,2 359 SAMPL E EXPIR ATION 03/23 ,2359 03/20 1:[address] [facility] Not Available Not Available 12/11/2024 16:17:38 03/20/20 24 03/20/2024 Gluco se [Mass /volu me] in Blood by Autom ated test strip glucose [mass/volume ] in blood by automated test strip 147 mg/dL low: 70mg/d Lhigh: 99mg/d L high GLUCO SE POC 147 (H) 70 - 99 mg/dL 03/20 11:[address] [facility] Not Available Not Available 12/11/2024 [...] 2 <20 MM/HR 03/20 9:[address] [facility] Not Available Not Available 12/11/2024 16:17:38 03/20/20 24 03/20/2024 Proca lcito salena [Mass /volu me] in Serum or Plasm a procalcitoni n [mass/volume ] in serum or plasma text: 0.00 - 0.49 NG/mL Proca lcito salena <0.05 0.00 - 0.49 NG/ML 03/20 12:[address] [facility] Not Available Not Available 12/11/2024 16:17:38 03/20/2003/20/2024 C react joseph prote in [Mass /volu me] in Serum or Plasm a C reactive protein [mass/volume ] in serum or plasma 0.57 mg/dL high: 0.29mg /dL high C-INGRID CTIVE PROTE IN 0.57 (H) <0.29 mg/dL 03/20 1:[address] [facility] Not Available Not Available 12/11/2024 [...] (H) <5.7 % 03/20 11:[address] [facility] Not Available Not Available 12/11/2024 16:17:38 03/20/2003/20/2024 Hemog lobin A1c/H emogl obin. total in Blood glucose mean value [mass/volume ] in blood estimated from glycated hemoglobin 160 mg/dL ESTIM ATED AVG GLUCO SE 160 mg/dL 03/20 11:[address] [facility] Not Available Not Available 12/11/2024 [...] 3.74 uIU/M L 03/20 8:[address] [facility] Not Available Not Available 12/11/2024 16:17:38 03/20/20 24 03/20/2024 Basic metab olic 2000 panel - Serum or Plasm a glucose [mass/volume ] in serum or plasma 109 text: 70 - 99 mg/dL high GLUCO SE 109 (H) 70 - 99 MG/DL 03/20 8:[address] [facility] Not Available Not Available 12/11/2024 16:17:38 03/20/20 24 03/20/2024 Basic metab olic 1999 panel - Serum or Plasm a urea nitrogen [mass/volume ] in serum or plasma 17 text: 7 - 18 mg/dL BUN 17 7 - 18 MG/DL 03/20 8:[address] [facility] Not Available Not Available 12/11/2024 16:17:38 03/20/20 24 03/20/2024 Basic metab olic 1999 panel - Serum or Plasm a creatinine [mass/volume ] in serum or plasma 0.81 text: 0.7 - 1.3 mg/dL CREAT ININE S/P/B 0.81 0.7 - 1.3 MG/DL 03/20 8:[address] [facility] Not Available Not Available 12/11/2024 16:17:38 03/20/20 24 03/20/2024 Basic metab olic 1999 panel - Serum or Plasm a sodium [moles/volum e] in serum or plasma 136 text: 136 - 145 mmol/L SODIU M S/P/B 136 136 - 145 MMOL/ L 03/20 8:[address] [facility] Not Available Not Available 12/11/2024 16:17:38 03/20/20 24 03/20/2024 Basic metab olic 1999 panel - Serum or Plasm a potassium [moles/volum e] in serum or plasma 4.1 text: 3.5 - 5.1 mmol/L POTAS SIUM S/P/B 4.1 3.5 - 5.1 MMOL/ L 03/20 8:[address] [facility] Not Available Not Available 12/11/2024 16:17:38 03/20/20 24 03/20/2024 Basic metab olic 2000 panel - Serum or Plasm a chloride [moles/volum e] in serum or plasma 101 text: 100 - 108 mmol/L CHLOR SYLVIA S/P/B 101 100 - 108 MMOL/ L 03/20 8:[address] [facility] Not Available Not Available 12/11/2024 16:17:38 03/20/20 24 03/20/2024 Basic metab olic 2000 panel - Serum or Plasm a carbon dioxide, total [moles/volum e] in serum or plasma 31.8 text: 21 - 32 mmol/L CO2 31.8 21 - 32 MMOL/ L 03/20 8:[address] [facility] Not Available Not Available 12/11/2024 16:17:38 03/20/20 24 03/20/2024 Basic metab olic 1999 panel - Serum or Plasm a calcium [mass/volume ] in serum or plasma 8.8 text: 8.5 - 10.1 mg/dL CALCI UM S/P/B 8.8 8.5 - 10.1 MG/DL 03/20 8:[address] [facility] Not Available Not Available 12/11/2024 16:17:38 03/20/20 24 03/20/2024 Basic metab olic 2000 panel - Serum or Plasm a anion gap in serum or plasma by calculation 3.2 text: 5 - 15 mmol/L low ANION GAP 3.2 (L) 5 - 15 MMOL/ L 03/20 8:[address] [facility] Not Available Not Available 12/11/2024 16:17:38 03/20/20 24 03/20/2024 Basic metab olic 1999 panel - Serum or Plasm a urea nitrogen/cre atinine [mass ratio] in serum or plasma 21 low: 6high: 26 BUN CREAT ININE RATIO 21.0 6 - 26 03/20 8:[address] [facility] Not Available Not Available 12/11/2024 16:17:38 03/20/20 24 03/20/2024 Basic metab olic 2000 panel - Serum or Plasm a glomerular filtration rate [volume rate/area] in serum, plasma or blood by creatinine-b ased formula (CKD-epi 2020)/1.73 sq M text: >90 mL/min /1.73 M2 GFR ESTIM ATE >90 >90 ML/OK N/1.7 3 M2 03/20 8:[address] [facility] Not Available Not Available 12/11/2024 [...] 11.0 x10'3 /uL 03/20 7:[address] [facility] Not Available Not Available 12/11/2024 16:17:37 03/20/2003/20/2024 CBC W Auto Diffe renti al panel - Blood erythrocytes [#/volume] in blood by automated count 3.63 text: 4.70 - 6.10 x10'6/ uL low RBC 3.63 (L) 4.70 - 6.10 x10'6 /uL 03/20 7:[address] [facility] Not Available Not Available 12/11/2024 16:17:37 03/20/2003/20/2024 CBC W Auto Diffe renti al panel - Blood hemoglobin [mass/volume ] in blood 8.1 text: 14.0 - 18.0 g/dL low HGB 8.1 (L) 14.0 - 18.0 G/DL 03/20 7:[address] [facility] Not Available Not Available 12/11/2024 16:17:37 03/20/20 24 03/20/2024 CBC W Auto Diffe renti al panel - Blood hematocrit [volume fraction] of blood by calculation 29 % low: 43%hig h: 54% low HCT 29.0 (L) 43.0 - 54.0 % 03/20 7:[address] [facility] Not Available Not Available 12/11/2024 16:17:37 03/20/2003/20/2024 CBC W Auto Diffe renti al panel - Blood MCV [entitic mean volume] in red blood cells 79.9 text: 80.0 - 94.0 fL low MCV 79.9 (L) 80.0 - 94.0 FL 03/20 7:[address] [facility] Not Available Not Available 12/11/2024 16:17:37 03/20/2003/20/2024 CBC W Auto Diffe renti al panel - Blood MCH [entitic mass] 22.3 pg low: 27pghi gh: 31pg low MCH 22.3 (L) 27.0 - 31.0 PG 03/20 7:[address] [facility] Not Available Not Available 12/11/2024 16:17:37 03/20/2003/20/2024 CBC W Auto Diffe renti al panel - Blood MCHC [entitic mass/volume] in red blood cells 27.9 text: 32.0 - 36.0 g/dL low MCHC 27.9 (L) 32.0 - 36.0 G/DL 03/20 7:[address] [facility] Not Available Not Available 12/11/2024 16:17:37 03/20/2003/20/2024 CBC W Auto Diffe renti al panel - Blood RDW 22.8 % low: 11.5%h igh: 14.5% high RDW 22.8 (H) 11.5 - 14.5 % 03/20 7:[address] [facility] Not Available Not Available 12/11/2024 16:17:37 03/20/20 24 03/20/2024 CBC W Auto Diffe renti al panel - Blood platelets [#/volume] in blood 281 text: 130 - 400 x10'3/ uL PLT 281 130 - 400 x10'3 /uL 03/20 7:[address] [facility] Not Available Not Available 12/11/2024 16:17:37 03/20/20 24 03/20/2024 CBC W Auto Diffe renti al panel - Blood platelet [entitic mean volume] in blood 9.9 text: 9.3 - 12.2 fL MPV 9.9 9.3 - 12.2 FL 03/20 7:[address] [facility] Not Available Not Available 12/11/2024 16:17:37 03/20/20 24 03/20/2024 CBC W Auto Diffe renti al panel - Blood differential cell count method - blood AUTOMA ANIBAL DIFFER ENTIAL DIFFE RENTI AL TYPE AUTOM ATED DIFFE RENTI AL 03/20 8:[address] [facility] Not Available Not Available 12/11/2024 16:17:37 03/20/20 24 03/20/2024 CBC W Auto Diffe renti al panel - Blood neutrophils/ leukocytes in blood by automated count 64.4 % NEUTR OPHIL S % 64.4 % 03/20 8:[address] [facility] Not Available Not Available 12/11/2024 16:17:37 03/20/20 24 03/20/2024 CBC W Auto Diffe renti al panel - Blood lymphocytes/ leukocytes in blood by automated count 24.4 % LYMPH OCYTE S % 24.4 % 03/20 8:[address] [facility] Not Available Not Available 12/11/2024 16:17:37 03/20/20 24 03/20/2024 CBC W Auto Diffe renti al panel - Blood monocytes/le ukocytes in blood by automated count 10.2 % MONOC YTES % 10.2 % 03/20 8:[address] [facility] Not Available Not Available 12/11/2024 16:17:37 03/20/20 24 03/20/2024 CBC W Auto Diffe renti al panel - Blood eosinophils/ leukocytes in blood by automated count 0.5 % EOSIN OPHIL S 0.5 % 03/20 8:[address] [facility] Not Available Not Available 12/11/2024 16:17:37 03/20/20 24 03/20/2024 CBC W Auto Diffe renti al panel - Blood basophils/le ukocytes in blood by automated count 0.2 % BASOP HILS 0.2 % 03/20 8:[address] [facility] Not Available Not Available 12/11/2024 16:17:37 03/20/20 24 03/20/2024 CBC W Auto Diffe renti al panel - Blood immature granulocytes /leukocytes in blood by automated count 0.3 % IMMAT URE GRANS % 0.3 % 03/20 8:[address] [facility] Not Available Not Available 12/11/2024 16:17:37 03/20/20 24 03/20/2024 CBC W Auto Diffe renti al panel - Blood neutrophils [#/volume] in blood 3.91 text: 1.80 - 7.70 x10'3/ uL ABS. NEUTR OPHIL S 3.91 1.80 - 7.70 x10'3 /uL 03/20 8:[address] [facility] Not Available Not Available 12/11/2024 16:17:37 03/20/20 24 03/20/2024 CBC W Auto Diffe renti al panel - Blood lymphocytes [#/volume] in blood 1.48 text: 1.00 - 4.80 x10'3/ uL ABS. LYMPH OCYTE S 1.48 1.00 - 4.80 x10'3 /uL 03/20 8:[address] [facility] Not Available Not Available 12/11/2024 16:17:37 03/20/20 24 03/20/2024 CBC W Auto Diffe renti al panel - Blood monocytes [#/volume] in blood 0.62 text: 0.30 - 0.82 x10'3/ uL ABS. MONOC YTES 0.62 0.30 - 0.82 x10'3 /uL 03/20 8:[address] [facility] Not Available Not Available 12/11/2024 16:17:37 03/20/20 24 03/20/2024 CBC W Auto Diffe renti al panel - Blood eosinophils [#/volume] in blood 0.03 text: 0.04 - 0.54 x10'3/ uL low ABS. EOSIN OPHIL S 0.03 (L) 0.04 - 0.54 x10'3 /uL 03/20 8:[address] [facility] Not Available Not Available 12/11/2024 16:17:37 03/20/20 24 03/20/2024 CBC W Auto Diffe renti al panel - Blood basophils [#/volume] in blood 0.01 text: 0.01 - 0.08 x10'3/ uL ABS. BASOP HILS 0.01 0.01 - 0.08 x10'3 /uL 03/20 8:[address] [facility] Not Available Not Available 12/11/2024 16:17:37 03/20/20 24 03/20/2024 CBC W Auto Diffe renti al panel - Blood immature granulocytes [#/volume] in blood 0.02 text: 0.00 - 0.49 x10'3/ uL ABS. IMMAT URE GRANU LOCYT ES 0.02 0.00 - 0.49 x10'3 /uL 03/20 8:[address] [facility] Not Available Not Available 12/11/2024 16:17:37 03/20/20 24 03/20/2024 CBC W Auto Diffe renti al panel - Blood erythrocytes [morphology] in blood by automated count SLIDE REVIEW ED RBC MORPH OLOGY SLIDE REVIE WED 03/20 8:[address] [facility] Not Available Not Available 12/11/2024 16:17:37 03/20/20 24 03/20/2024 CBC W Auto Diffe renti al panel - Blood anisocytosis [presence] in blood 2+ ANISO 2+ 03/20 8:29 AM CDT [facility] Not Available Not Available 12/11/2024 16:17:37 03/20/20 24 03/20/2024 CBC W Auto Diffe renti al panel - Blood poikilocytos is [presence] in blood by automated count 1+ POIKL O 1+ 03/20 8:[address] [facility] Not Available Not Available 12/11/2024 16:17:37 03/20/20 24 03/20/2024 CBC W Auto Diffe renti al panel - Blood hypochromia [presence] in blood 2+ HYPOC HROMA JAZMYNE 2+ 03/20 8:[address] [facility] Not Available Not Available 12/11/2024 16:17:37 03/20/20 24 03/20/2024 CBC W Auto Diffe renti al panel - Blood polychromasi a [presence] in blood by light microscopy 1+ POLY 1+ 03/20 8:[address] [facility] Not Available Not Available 12/11/2024 16:17:37 03/20/20 24 03/20/2024 CBC W Auto Diffe renti al panel - Blood schisto 1+ SCHIS TO 1+ 03/20 8:[address] [facility] Not Available Not Available 12/11/2024 16:17:37 03/20/20 24 03/20/2024 CBC W Auto Diffe renti al panel - Blood platelets [#/volume] in blood by automated count ADEQUA TE PLT EST. ADEQU ATE 03/20 8:[address] [facility] Not Available Not Available 12/11/2024 [...] - 99 mg/dL 03/20 6:[address] [facility] Not Available Not Available 12/11/2024 [...] - 99 mg/dL 03/21 9:[address] [facility] Not Available Not Available 12/11/2024 [...] - 99 mg/dL 03/21 5:[address] [facility] Not Available Not Available 12/11/2024 [...] - 99 mg/dL 03/21 3:[address] [facility] Not Available Not Available 12/11/2024 [...] - 99 mg/dL 03/21 11:[address] [facility] Not Available Not Available 12/11/2024 [...] - 99 mg/dL 03/21 6:[address] [facility] Not Available Not Available 12/11/2024 [...] - 99 MG/DL 03/21 5:[address] [facility] Not Available Not Available 12/11/2024 16:17:39 03/21/20 24 03/21/2024 Basic metab olic 2000 panel - Serum or Plasm a urea nitrogen [mass/volume ] in serum or plasma 18 text: 7 - 18 mg/dL BUN 18 7 - 18 MG/DL 03/21 5:[address] [facility] Not Available Not Available 12/11/2024 16:17:39 03/21/20 24 03/21/2024 Basic metab olic 2000 panel - Serum or Plasm a creatinine [mass/volume ] in serum or plasma 0.89 text: 0.7 - 1.3 mg/dL CREAT ININE S/P/B 0.89 0.7 - 1.3 MG/DL 03/21 5:[address] [facility] Not Available Not Available 12/11/2024 16:17:39 03/21/20 24 03/21/2024 Basic metab olic 2000 panel - Serum or Plasm a sodium [moles/volum e] in serum or plasma 137 text: 136 - 145 mmol/L SODIU M S/P/B 137 136 - 145 MMOL/ L 03/21 5:[address] [facility] Not Available Not Available 12/11/2024 16:17:39 03/21/20 24 03/21/2024 Basic metab olic 2000 panel - Serum or Plasm a potassium [moles/volum e] in serum or plasma 3.9 text: 3.5 - 5.1 mmol/L POTAS SIUM S/P/B 3.9 3.5 - 5.1 MMOL/ L 03/21 5:[address] [facility] Not Available Not Available 12/11/2024 16:17:39 03/21/20 24 03/21/2024 Basic metab olic 2000 panel - Serum or Plasm a chloride [moles/volum e] in serum or plasma 102 text: 100 - 108 mmol/L CHLOR SYLVIA S/P/B 102 100 - 108 MMOL/ L 03/21 5:[address] [facility] Not Available Not Available 12/11/2024 16:17:39 03/21/20 24 03/21/2024 Basic metab olic 2000 panel - Serum or Plasm a carbon dioxide, total [moles/volum e] in serum or plasma 33.1 text: 21 - 32 mmol/L high CO2 33.1 (H) 21 - 32 MMOL/ L 03/21 5:[address] [facility] Not Available Not Available 12/11/2024 16:17:39 03/21/20 24 03/21/2024 Basic metab olic 2000 panel - Serum or Plasm a calcium [mass/volume ] in serum or plasma 8 text: 8.5 - 10.1 mg/dL low CALCI UM S/P/B 8.0 (L) 8.5 - 10.1 MG/DL 03/21 5:[address] [facility] Not Available Not Available 12/11/2024 16:17:39 03/21/20 24 03/21/2024 Basic metab olic 2000 panel - Serum or Plasm a anion gap in serum or plasma by calculation 1.9 text: 5 - 15 mmol/L low ANION GAP 1.9 (L) 5 - 15 MMOL/ L 03/21 5:[address] [facility] Not Available Not Available 12/11/2024 16:17:39 03/21/20 24 03/21/2024 Basic metab olic 2000 panel - Serum or Plasm a urea nitrogen/cre atinine [mass ratio] in serum or plasma 20.2 low: 6high: 26 BUN CREAT ININE RATIO 20.2 6 - 26 03/21 5:[address] [facility] Not Available Not Available 12/11/2024 16:17:39 03/21/20 24 03/21/2024 Basic metab olic 2000 panel - Serum or Plasm a glomerular filtration rate [volume rate/area] in serum, plasma or blood by creatinine-b ased formula (CKD-epi 2020)/1.73 sq M text: >90 mL/min /1.73 M2 GFR ESTIM ATE >90 >90 ML/OK N/1.7 3 M2 03/21 5:[address] [facility] Not Available Not Available 12/11/2024 [...] 11.0 x10'3 /uL 03/21 5:[address] [facility] Not Available Not Available 12/11/2024 16:17:38 03/21/20 24 03/21/2024 CBC W Auto Diffe renti al panel - Blood erythrocytes [#/volume] in blood by automated count 3.39 text: 4.70 - 6.10 x10'6/ uL low RBC 3.39 (L) 4.70 - 6.10 x10'6 /uL 03/21 5:[address] [facility] Not Available Not Available 12/11/2024 16:17:38 03/21/20 24 03/21/2024 CBC W Auto Diffe renti al panel - Blood hemoglobin [mass/volume ] in blood 7.4 text: 14.0 - 18.0 g/dL low HGB 7.4 (L) 14.0 - 18.0 G/DL 03/21 5:[address] [facility] Not Available Not Available 12/11/2024 16:17:38 03/21/20 24 03/21/2024 CBC W Auto Diffe renti al panel - Blood hematocrit [volume fraction] of blood by calculation 26.4 % low: 43%hig h: 54% low HCT 26.4 (L) 43.0 - 54.0 % 03/21 5:[address] [facility] Not Available Not Available 12/11/2024 16:17:38 03/21/20 24 03/21/2024 CBC W Auto Diffe renti al panel - Blood MCV [entitic mean volume] in red blood cells 77.9 text: 80.0 - 94.0 fL low MCV 77.9 (L) 80.0 - 94.0 FL 03/21 5:[address] [facility] Not Available Not Available 12/11/2024 16:17:38 03/21/20 24 03/21/2024 CBC W Auto Diffe renti al panel - Blood MCH [entitic mass] 21.8 pg low: 27pghi gh: 31pg low MCH 21.8 (L) 27.0 - 31.0 PG 03/21 5:[address] [facility] Not Available Not Available 12/11/2024 16:17:38 03/21/20 24 03/21/2024 CBC W Auto Diffe renti al panel - Blood MCHC [entitic mass/volume] in red blood cells 28 text: 32.0 - 36.0 g/dL low MCHC 28.0 (L) 32.0 - 36.0 G/DL 03/21 5:[address] [facility] Not Available Not Available 12/11/2024 16:17:38 03/21/20 24 03/21/2024 CBC W Auto Diffe renti al panel - Blood RDW 23 % low: 11.5%h igh: 14.5% high RDW 23.0 (H) 11.5 - 14.5 % 03/21 5:[address] [facility] Not Available Not Available 12/11/2024 16:17:38 03/21/20 24 03/21/2024 CBC W Auto Diffe renti al panel - Blood platelets [#/volume] in blood 254 text: 130 - 400 x10'3/ uL PLT 254 130 - 400 x10'3 /uL 03/21 5:[address] [facility] Not Available Not Available 12/11/2024 16:17:38 03/21/20 24 03/21/2024 CBC W Auto Diffe renti al panel - Blood platelet [entitic mean volume] in blood 9.5 text: 9.3 - 12.2 fL MPV 9.5 9.3 - 12.2 FL 03/21 5:[address] [facility] Not Available Not Available 12/11/2024 16:17:38 03/21/20 24 03/21/2024 CBC W Auto Diffe renti al panel - Blood differential cell count method - blood AUTOMA ANIBAL DIFFER ENTIAL DIFFE RENTI AL TYPE AUTOM ATED DIFFE RENTI AL 03/21 5:[address] [facility] Not Available Not Available 12/11/2024 16:17:38 03/21/20 24 03/21/2024 CBC W Auto Diffe renti al panel - Blood neutrophils/ leukocytes in blood by automated count 68.1 % NEUTR OPHIL S % 68.1 % 03/21 5:[address] [facility] Not Available Not Available 12/11/2024 16:17:38 03/21/20 24 03/21/2024 CBC W Auto Diffe renti al panel - Blood lymphocytes/ leukocytes in blood by automated count 21.5 % LYMPH OCYTE S % 21.5 % 03/21 5:[address] [facility] Not Available Not Available 12/11/2024 16:17:38 03/21/20 24 03/21/2024 CBC W Auto Diffe renti al panel - Blood monocytes/le ukocytes in blood by automated count 9 % MONOC YTES % 9.0 % 03/21 5:[address] [facility] Not Available Not Available 12/11/2024 16:17:38 03/21/20 24 03/21/2024 CBC W Auto Diffe renti al panel - Blood eosinophils/ leukocytes in blood by automated count 0.6 % EOSIN OPHIL S 0.6 % 03/21 5:[address] [facility] Not Available Not Available 12/11/2024 16:17:38 03/21/20 24 03/21/2024 CBC W Auto Diffe renti al panel - Blood basophils/le ukocytes in blood by automated count 0.2 % BASOP HILS 0.2 % 03/21 5:[address] [facility] Not Available Not Available 12/11/2024 16:17:38 03/21/20 24 03/21/2024 CBC W Auto Diffe renti al panel - Blood immature granulocytes /leukocytes in blood by automated count 0.6 % IMMAT URE GRANS % 0.6 % 03/21 5:[address] [facility] Not Available Not Available 12/11/2024 16:17:38 03/21/20 24 03/21/2024 CBC W Auto Diffe renti al panel - Blood neutrophils [#/volume] in blood 3.64 text: 1.80 - 7.70 x10'3/ uL ABS. NEUTR OPHIL S 3.64 1.80 - 7.70 x10'3 /uL 03/21 5:[address] [facility] Not Available Not Available 12/11/2024 16:17:38 03/21/20 24 03/21/2024 CBC W Auto Diffe renti al panel - Blood lymphocytes [#/volume] in blood 1.15 text: 1.00 - 4.80 x10'3/ uL ABS. LYMPH OCYTE S 1.15 1.00 - 4.80 x10'3 /uL 03/21 5:[address] [facility] Not Available Not Available 12/11/2024 16:17:38 03/21/20 24 03/21/2024 CBC W Auto Diffe renti al panel - Blood monocytes [#/volume] in blood 0.48 text: 0.30 - 0.82 x10'3/ uL ABS. MONOC YTES 0.48 0.30 - 0.82 x10'3 /uL 03/21 5:[address] [facility] Not Available Not Available 12/11/2024 16:17:38 03/21/20 24 03/21/2024 CBC W Auto Diffe renti al panel - Blood eosinophils [#/volume] in blood 0.03 text: 0.04 - 0.54 x10'3/ uL low ABS. EOSIN OPHIL S 0.03 (L) 0.04 - 0.54 x10'3 /uL 03/21 5:[address] [facility] Not Available Not Available 12/11/2024 16:17:38 03/21/20 24 03/21/2024 CBC W Auto Diffe renti al panel - Blood basophils [#/volume] in blood 0.01 text: 0.01 - 0.08 x10'3/ uL ABS. BASOP HILS 0.01 0.01 - 0.08 x10'3 /uL 03/21 5:[address] [facility] Not Available Not Available 12/11/2024 16:17:38 03/21/20 24 03/21/2024 CBC W Auto Diffe renti al panel - Blood immature granulocytes [#/volume] in blood 0.03 text: 0.00 - 0.49 x10'3/ uL ABS. IMMAT URE GRANU LOCYT ES 0.03 0.00 - 0.49 x10'3 /uL 03/21 5:34 AM CDT [facility] Not Available Not Available 12/11/2024 16:17:38 03/21/20 24 03/21/2024 CBC W Auto Diffe renti al panel - Blood erythrocytes [morphology] in blood by automated count SLIDE REVIEW ED RBC MORPH OLOGY SLIDE REVIE WED 03/21 5:[address] [facility] Not Available Not Available 12/11/2024 16:17:38 03/21/20 24 03/21/2024 CBC W Auto Diffe renti al panel - Blood anisocytosis [presence] in blood 2+ ANISO 2+ 03/21 5:[address] [facility] Not Available Not Available 12/11/2024 16:17:38 03/21/20 24 03/21/2024 CBC W Auto Diffe renti al panel - Blood poikilocytos is [presence] in blood by automated count 2+ POIKL O 2+ 03/21 5:34 AM CDT [facility] Not Available Not Available 12/11/2024 16:17:38 03/21/20 24 03/21/2024 CBC W Auto Diffe renti al panel - Blood hypochromia [presence] in blood 2+ HYPOC HROMA JAZMYNE 2+ 03/21 5:[address] [facility] Not Available Not Available 12/11/2024 16:17:38 03/21/20 24 03/21/2024 CBC W Auto Diffe renti al panel - Blood polychromasi a [presence] in blood by light microscopy 1+ POLY 1+ 03/21 5:[address] [facility] Not Available Not Available 12/11/2024 16:17:38 03/21/20 24 03/21/2024 CBC W Auto Diffe renti al panel - Blood platelets [#/volume] in blood by automated count ADEQUA TE PLT EST. ADEQU ATE 03/21 5:[address] [facility] Not Available Not Available 12/11/2024 [...] - 99 mg/dL 03/22 7:[address] [facility] Not Available Not Available 12/11/2024 [...] - 99 mg/dL 03/22 4:[address] [facility] Not Available Not Available 12/11/2024 [...] 11.0 x10'3 /uL 03/22 1:[address] [facility] Not Available Not Available 12/11/2024 16:17:40 03/22/20 24 03/22/2024 CBC W Auto Diffe renti al panel - Blood erythrocytes [#/volume] in blood by automated count 3.35 text: 4.70 - 6.10 x10'6/ uL low RBC 3.35 (L) 4.70 - 6.10 x10'6 /uL 03/22 1:[address] [facility] Not Available Not Available 12/11/2024 16:17:40 03/22/20 24 03/22/2024 CBC W Auto Diffe renti al panel - Blood hemoglobin [mass/volume ] in blood 7.4 text: 14.0 - 18.0 g/dL low HGB 7.4 (L) 14.0 - 18.0 G/DL 03/22 1:[address] [facility] Not Available Not Available 12/11/2024 16:17:40 03/22/20 24 03/22/2024 CBC W Auto Diffe renti al panel - Blood hematocrit [volume fraction] of blood by calculation 26.8 % low: 43%hig h: 54% low HCT 26.8 (L) 43.0 - 54.0 % 03/22 1:[address] [facility] Not Available Not Available 12/11/2024 16:17:40 03/22/20 24 03/22/2024 CBC W Auto Diffe renti al panel - Blood MCV [entitic mean volume] in red blood cells 80 text: 80.0 - 94.0 fL MCV 80.0 80.0 - 94.0 FL 03/22 1:[address] [facility] Not Available Not Available 12/11/2024 16:17:40 03/22/20 24 03/22/2024 CBC W Auto Diffe renti al panel - Blood MCH [entitic mass] 22.1 pg low: 27pghi gh: 31pg low MCH 22.1 (L) 27.0 - 31.0 PG 03/22 1:[address] [facility] Not Available Not Available 12/11/2024 16:17:40 03/22/20 24 03/22/2024 CBC W Auto Diffe renti al panel - Blood MCHC [entitic mass/volume] in red blood cells 27.6 text: 32.0 - 36.0 g/dL low MCHC 27.6 (L) 32.0 - 36.0 G/DL 03/22 1:[address] [facility] Not Available Not Available 12/11/2024 16:17:40 03/22/20 24 03/22/2024 CBC W Auto Diffe renti al panel - Blood RDW 23.2 % low: 11.5%h igh: 14.5% high RDW 23.2 (H) 11.5 - 14.5 % 03/22 1:[address] [facility] Not Available Not Available 12/11/2024 16:17:40 03/22/20 24 03/22/2024 CBC W Auto Diffe renti al panel - Blood platelets [#/volume] in blood 248 text: 130 - 400 x10'3/ uL PLT 248 130 - 400 x10'3 /uL 03/22 1:[address] [facility] Not Available Not Available 12/11/2024 16:17:40 03/22/20 24 03/22/2024 CBC W Auto Diffe renti al panel - Blood platelet [entitic mean volume] in blood 10.3 text: 9.3 - 12.2 fL MPV 10.3 9.3 - 12.2 FL 03/22 1:[address] [facility] Not Available Not Available 12/11/2024 16:17:40 07/26/20 24 03/22/2024 CBC W Auto Diffe renti al panel - Blood differential cell count method - blood MANUAL DIFFER ENTIAL DIFFE RENTI AL TYPE VANI L DIFFE RENTI AL 03/22 2:[address] [facility] Not Available Not Available 12/11/2024 16:17:40 03/22/20 24 03/22/2024 CBC W Auto Diffe renti al panel - Blood segmented neutrophils/ leukocytes in blood by manual count 76 % SEG NEUTR OPHIL S 76 % 03/22 2:[address] [facility] Not Available Not Available 12/11/2024 16:17:40 03/22/20 24 03/22/2024 CBC W Auto Diffe renti al panel - Blood lymphocytes/ leukocytes in blood by manual count 19 % LYMPH OCYTE S 19 % 03/22 2:[address] [facility] Not Available Not Available 12/11/2024 16:17:40 03/22/20 24 03/22/2024 CBC W Auto Diffe renti al panel - Blood monocytes/le ukocytes in blood by manual count 2 % MONOC YTES 2 % 03/22 2:[address] [facility] Not Available Not Available 12/11/2024 16:17:40 03/22/20 24 03/22/2024 CBC W Auto Diffe renti al panel - Blood band form neutrophils/ leukocytes in blood by manual count 1 % BANDS 1 % 03/22 2:[address] [facility] Not Available Not Available 12/11/2024 16:17:40 03/22/20 24 03/22/2024 CBC W Auto Diffe renti al panel - Blood myelocytes [#/volume] in blood by manual count 2 % MYELO CYTES 2 % 03/22 2:[address] [facility] Not Available Not Available 12/11/2024 16:17:40 03/22/20 24 03/22/2024 CBC W Auto Diffe renti al panel - Blood neutrophils [#/volume] in blood 4.74 text: 1.80 - 7.70 x10'3/ uL ABS. NEUTR OPHIL S 4.74 1.80 - 7.70 x10'3 /uL 03/22 2:[address] [facility] Not Available Not Available 12/11/2024 16:17:40 03/22/20 24 03/22/2024 CBC W Auto Diffe renti al panel - Blood lymphocytes [#/volume] in blood 1.17 text: 1.00 - 4.80 x10'3/ uL ABS. LYMPH OCYTE S 1.17 1.00 - 4.80 x10'3 /uL 03/22 2:[address] [facility] Not Available Not Available 12/11/2024 16:17:40 03/22/20 24 03/22/2024 CBC W Auto Diffe renti al panel - Blood monocytes [#/volume] in blood 0.12 text: 0.30 - 0.82 x10'3/ uL low ABS. MONOC YTES 0.12 (L) 0.30 - 0.82 x10'3 /uL 03/22 2:[address] [facility] Not Available Not Available 12/11/2024 16:17:40 03/22/20 24 03/22/2024 CBC W Auto Diffe renti al panel - Blood myelocytes [#/volume] in blood by manual count 0.12 text: 0.00 x10'3/ uL high ABS. MYELO CYTES 0.12 (H) 0.00 x10'3 /uL 03/22 2:[address] [facility] Not Available Not Available 12/11/2024 16:17:40 03/22/20 24 03/22/2024 CBC W Auto Diffe renti al panel - Blood erythrocytes [morphology] in blood by automated count SLIDE REVIEW ED RBC MORPH OLOGY SLIDE REVIE WED 03/22 2:[address] [facility] Not Available Not Available 12/11/2024 16:17:40 03/22/20 24 03/22/2024 CBC W Auto Diffe renti al panel - Blood anisocytosis [presence] in blood 1+ ANISO 1+ 03/22 2:[address] [facility] Not Available Not Available 12/11/2024 16:17:40 03/22/20 24 03/22/2024 CBC W Auto Diffe renti al panel - Blood poikilocytos is [presence] in blood by automated count 1+ POIKL O 1+ 03/22 2:[address] [facility] Not Available Not Available 12/11/2024 16:17:40 03/22/20 24 03/22/2024 CBC W Auto Diffe renti al panel - Blood hypochromia [presence] in blood 1+ HYPOC HROMA JAZMYNE 1+ 03/22 2:[address] [facility] Not Available Not Available 12/11/2024 16:17:40 03/22/20 24 03/22/2024 CBC W Auto Diffe renti al panel - Blood microcytes [presence] in blood 1+ MICRO 1+ 03/22 2:[address] [facility] Not Available Not Available 12/11/2024 16:17:40 03/22/20 24 03/22/2024 CBC W Auto Diffe renti al panel - Blood polychromasi a [presence] in blood by light microscopy 1+ POLY 1+ 03/22 2:[address] [facility] Not Available Not Available 12/11/2024 16:17:40 03/22/20 24 03/22/2024 CBC W Auto Diffe renti al panel - Blood acanthocytes [presence] in blood by light microscopy 1+ ACANT HOCYT ES 1+ 03/22 2:[address] [facility] Not Available Not Available 12/11/2024 16:17:40 03/22/20 24 03/22/2024 CBC W Auto Diffe renti al panel - Blood platelets [#/volume] in blood by automated count ADEQUA TE PLT EST. ADEQU ATE 03/22 2:[address] [facility] Not Available Not Available 12/11/2024 [...] O POSIT JOSEPH 03/22 1:[address] [facility] Not Available Not Available 12/11/2024 16:17:40 03/22/20 24 03/22/2024 Blood type and Indir ect antib brigid scree n panel - Blood blood group antibody screen [presence] in serum or plasma NEGATI VE ANTIB BRIGID SCREE N NEGAT JOSEPH 03/22 1:[address] [facility] Not Available Not Available 12/11/2024 16:17:40 03/22/20 24 03/22/2024 Blood type and Indir ect antib brigid scree n panel - Blood specimen expiration date of blood 2023,2 359 SAMPL E EXPIR ATION 03/25 ,2359 03/22 1:[address] [facility] Not Available Not Available 12/11/2024 16:17:40 03/22/20 24 03/23/2024 Methi cilli n resis tant Staph yloco ccus aureu s [Pres ence] in Speci men by Organ ism speci fic cultu re specimen source identified NASAL SPEC DESCR IPTIO N NASAL 03/22 11:[address] [facility] Not Available Not Available 12/11/2024 16:17:40 03/22/20 24 03/23/2024 Methi cilli n resis tant Staph yloco ccus aureu s [Pres ence] in Speci men by Organ ism speci fic cultu re service comment NO SPECIA L REQUES T SPECI AL REQUE STS NO SPECI AL REQUE ST 03/22 11:[address] [facility] Not Available Not Available 12/11/2024 [...] S ISOLA ANIBAL 03/23 3:[address] [facility] Not Available Not Available 12/11/2024 16:17:40 03/22/20 24 03/22/2024 Gluco se [Mass /volu me] in Blood by Autom ated test strip glucose [mass/volume ] in blood by automated test strip 172 mg/dL low: 70mg/d Lhigh: 99mg/d L high GLUCO SE POC 172 (H) 70 - 99 mg/dL 03/22 11:[address] [facility] Not Available Not Available 12/11/2024 [...] - 99 mg/dL 03/22 6:[address] [facility] Not Available Not Available 12/11/2024 [...] 11.0 x10'3 /uL 03/22 4:[address] [facility] Not Available Not Available 12/11/2024 16:17:39 03/22/2003/22/2024 CBC W Auto Diffe renti al panel - Blood erythrocytes [#/volume] in blood by automated count 3.21 text: 4.70 - 6.10 x10'6/ uL low RBC 3.21 (L) 4.70 - 6.10 x10'6 /uL 03/22 4:[address] [facility] Not Available Not Available 12/11/2024 16:17:39 03/22/2003/22/2024 CBC W Auto Diffe renti al panel - Blood hemoglobin [mass/volume ] in blood 7 text: 14.0 - 18.0 g/dL low HGB 7.0 (L) 14.0 - 18.0 G/DL 03/22 4:[address] [facility] Not Available Not Available 12/11/2024 16:17:39 03/22/20 24 03/22/2024 CBC W Auto Diffe renti al panel - Blood hematocrit [volume fraction] of blood by calculation 25 % low: 43%hig h: 54% low HCT 25.0 (L) 43.0 - 54.0 % 03/22 4:[address] [facility] Not Available Not Available 12/11/2024 16:17:39 03/22/20 24 03/22/2024 CBC W Auto Diffe renti al panel - Blood MCV [entitic mean volume] in red blood cells 77.9 text: 80.0 - 94.0 fL low MCV 77.9 (L) 80.0 - 94.0 FL 03/22 4:[address] [facility] Not Available Not Available 12/11/2024 16:17:39 03/22/20 24 03/22/2024 CBC W Auto Diffe renti al panel - Blood MCH [entitic mass] 21.8 pg low: 27pghi gh: 31pg low MCH 21.8 (L) 27.0 - 31.0 PG 03/22 4:[address] [facility] Not Available Not Available 12/11/2024 16:17:39 03/22/20 24 03/22/2024 CBC W Auto Diffe renti al panel - Blood MCHC [entitic mass/volume] in red blood cells 28 text: 32.0 - 36.0 g/dL low MCHC 28.0 (L) 32.0 - 36.0 G/DL 03/22 4:[address] [facility] Not Available Not Available 12/11/2024 16:17:39 03/22/20 24 03/22/2024 CBC W Auto Diffe renti al panel - Blood RDW 22.8 % low: 11.5%h igh: 14.5% high RDW 22.8 (H) 11.5 - 14.5 % 03/22 4:[address] [facility] Not Available Not Available 12/11/2024 16:17:39 03/22/20 24 03/22/2024 CBC W Auto Diffe renti al panel - Blood platelets [#/volume] in blood 240 text: 130 - 400 x10'3/ uL PLT 240 130 - 400 x10'3 /uL 03/22 4:[address] [facility] Not Available Not Available 12/11/2024 16:17:39 03/22/20 24 03/22/2024 CBC W Auto Diffe renti al panel - Blood platelet [entitic mean volume] in blood 9.9 text: 9.3 - 12.2 fL MPV 9.9 9.3 - 12.2 FL 03/22 4:[address] [facility] Not Available Not Available 12/11/2024 16:17:39 03/22/20 24 03/22/2024 CBC W Auto Diffe renti al panel - Blood differential cell count method - blood MANUAL DIFFER ENTIAL DIFFE RENTI AL TYPE MANUA L DIFFE RENTI AL 03/22 5:[address] [facility] Not Available Not Available 12/11/2024 16:17:39 03/22/20 24 03/22/2024 CBC W Auto Diffe renti al panel - Blood segmented neutrophils/ leukocytes in blood by manual count 77 % SEG NEUTR OPHIL S 77 % 03/22 5:[address] [facility] Not Available Not Available 12/11/2024 16:17:39 03/22/20 24 03/22/2024 CBC W Auto Diffe renti al panel - Blood lymphocytes/ leukocytes in blood by manual count 14 % LYMPH OCYTE S 14 % 03/22 5:[address] [facility] Not Available Not Available 12/11/2024 16:17:39 03/22/20 24 03/22/2024 CBC W Auto Diffe renti al panel - Blood monocytes/le ukocytes in blood by manual count 6 % MONOC YTES 6 % 03/22 5:[address] [facility] Not Available Not Available 12/11/2024 16:17:39 03/22/20 24 03/22/2024 CBC W Auto Diffe renti al panel - Blood eosinophils/ leukocytes in blood by manual count 1 % EOSIN OPHIL S 1 % 03/22 5:[address] [facility] Not Available Not Available 12/11/2024 16:17:39 03/22/20 24 03/22/2024 CBC W Auto Diffe renti al panel - Blood basophils/le ukocytes in blood 2 % BASOP HILS 2 % 03/22 5:[address] [facility] Not Available Not Available 12/11/2024 16:17:39 03/22/20 24 03/22/2024 CBC W Auto Diffe renti al panel - Blood neutrophils [#/volume] in blood 4.77 text: 1.80 - 7.70 x10'3/ uL ABS. NEUTR OPHIL S 4.77 1.80 - 7.70 x10'3 /uL 03/22 5:[address] [facility] Not Available Not Available 12/11/2024 16:17:39 03/22/20 24 03/22/2024 CBC W Auto Diffe renti al panel - Blood lymphocytes [#/volume] in blood 0.87 text: 1.00 - 4.80 x10'3/ uL low ABS. LYMPH OCYTE S 0.87 (L) 1.00 - 4.80 x10'3 /uL 03/22 5:[address] [facility] Not Available Not Available 12/11/2024 16:17:39 03/22/20 24 03/22/2024 CBC W Auto Diffe renti al panel - Blood monocytes [#/volume] in blood 0.37 text: 0.30 - 0.82 x10'3/ uL ABS. MONOC YTES 0.37 0.30 - 0.82 x10'3 /uL 03/22 5:[address] [facility] Not Available Not Available 12/11/2024 16:17:39 03/22/20 24 03/22/2024 CBC W Auto Diffe renti al panel - Blood eosinophils [#/volume] in blood 0.06 text: 0.04 - 0.54 x10'3/ uL ABS. EOSIN OPHIL S 0.06 0.04 - 0.54 x10'3 /uL 03/22 5:[address] [facility] Not Available Not Available 12/11/2024 16:17:39 03/22/20 24 03/22/2024 CBC W Auto Diffe renti al panel - Blood basophils [#/volume] in blood 0.12 text: 0.01 - 0.08 x10'3/ uL high ABS. BASOP HILS 0.12 (H) 0.01 - 0.08 x10'3 /uL 03/22 5:[address] [facility] Not Available Not Available 12/11/2024 16:17:39 03/22/20 24 03/22/2024 CBC W Auto Diffe renti al panel - Blood erythrocytes [morphology] in blood by automated count SLIDE REVIEW ED RBC MORPH OLOGY SLIDE REVIE WED 03/22 5:[address] [facility] Not Available Not Available 12/11/2024 16:17:39 03/22/20 24 03/22/2024 CBC W Auto Diffe renti al panel - Blood anisocytosis [presence] in blood 2+ ANISO 2+ 03/22 5:[address] [facility] Not Available Not Available 12/11/2024 16:17:39 03/22/20 24 03/22/2024 CBC W Auto Diffe renti al panel - Blood poikilocytos is [presence] in blood by automated count 1+ POIKL O 1+ 03/22 5:[address] [facility] Not Available Not Available 12/11/2024 16:17:39 03/22/20 24 03/22/2024 CBC W Auto Diffe renti al panel - Blood hypochromia [presence] in blood 2+ HYPOC HROMA JAZMYNE 2+ 03/22 5:[address] [facility] Not Available Not Available 12/11/2024 16:17:39 03/22/20 24 03/22/2024 CBC W Auto Diffe renti al panel - Blood microcytes [presence] in blood 1+ MICRO 1+ 03/22 5:[address] [facility] Not Available Not Available 12/11/2024 16:17:39 03/22/20 24 03/22/2024 CBC W Auto Diffe renti al panel - Blood polychromasi a [presence] in blood by light microscopy 1+ POLY 1+ 03/22 5:[address] [facility] Not Available Not Available 12/11/2024 16:17:39 03/22/20 24 03/22/2024 CBC W Auto Diffe renti al panel - Blood platelets [#/volume] in blood by automated count ADEQUA TE PLT EST. ADEQU ATE 03/22 5:[address] [facility] Not Available Not Available 12/11/2024 [...] - 99 MG/DL 03/22 5:[address] [facility] Not Available Not Available 12/11/2024 16:17:39 03/22/20 24 03/22/2024 Basic metab olic 2000 panel - Serum or Plasm a urea nitrogen [mass/volume ] in serum or plasma 25 text: 7 - 18 mg/dL high BUN 25 (H) 7 - 18 MG/DL 03/22 5:[address] [facility] Not Available Not Available 12/11/2024 16:17:39 03/22/20 24 03/22/2024 Basic metab olic 2000 panel - Serum or Plasm a creatinine [mass/volume ] in serum or plasma 0.84 text: 0.7 - 1.3 mg/dL CREAT ININE S/P/B 0.84 0.7 - 1.3 MG/DL 03/22 5:[address] [facility] Not Available Not Available 12/11/2024 16:17:39 03/22/20 24 03/22/2024 Basic metab olic 2000 panel - Serum or Plasm a sodium [moles/volum e] in serum or plasma 134 text: 136 - 145 mmol/L low SODIU M S/P/B 134 (L) 136 - 145 MMOL/ L 03/22 5:[address] [facility] Not Available Not Available 12/11/2024 16:17:39 03/22/20 24 03/22/2024 Basic metab olic 2000 panel - Serum or Plasm a potassium [moles/volum e] in serum or plasma 4.6 text: 3.5 - 5.1 mmol/L POTAS SIUM S/P/B 4.6 3.5 - 5.1 MMOL/ L 03/22 5:[address] [facility] Not Available Not Available 12/11/2024 16:17:39 03/22/20 24 03/22/2024 Basic metab olic 2000 panel - Serum or Plasm a chloride [moles/volum e] in serum or plasma 101 text: 100 - 108 mmol/L CHLOR SYLVIA S/P/B 101 100 - 108 MMOL/ L 03/22 5:[address] [facility] Not Available Not Available 12/11/2024 16:17:39 03/22/20 24 03/22/2024 Basic metab olic 2000 panel - Serum or Plasm a carbon dioxide, total [moles/volum e] in serum or plasma 30.8 text: 21 - 32 mmol/L CO2 30.8 21 - 32 MMOL/ L 03/22 5:[address] [facility] Not Available Not Available 12/11/2024 16:17:39 03/22/20 24 03/22/2024 Basic metab olic 1999 panel - Serum or Plasm a calcium [mass/volume ] in serum or plasma 8.2 text: 8.5 - 10.1 mg/dL low CALCI UM S/P/B 8.2 (L) 8.5 - 10.1 MG/DL 03/22 5:[address] [facility] Not Available Not Available 12/11/2024 16:17:39 03/22/20 24 03/22/2024 Basic metab olic 1999 panel - Serum or Plasm a anion gap in serum or plasma by calculation 2.2 text: 5 - 15 mmol/L low ANION GAP 2.2 (L) 5 - 15 MMOL/ L 03/22 5:[address] [facility] Not Available Not Available 12/11/2024 16:17:39 03/22/20 24 03/22/2024 Basic metab olic 1999 panel - Serum or Plasm a urea nitrogen/cre atinine [mass ratio] in serum or plasma 29.7 low: 6high: 26 high BUN CREAT ININE RATIO 29.7 (H) 6 - 26 03/22 5:[address] [facility] Not Available Not Available 12/11/2024 16:17:39 03/22/20 24 03/22/2024 Basic metab olic 1999 panel - Serum or Plasm a glomerular filtration rate [volume rate/area] in serum, plasma or blood by creatinine-b ased formula (CKD-epi 2020)/1.73 sq M text: >90 mL/min /1.73 M2 GFR ESTIM ATE >90 >90 ML/OK N/1.7 3 M2 03/22 5:[address] [facility] Not Available Not Available 12/11/2024 [...] - 99 mg/dL 03/23 7:[address] [facility] Not Available Not Available 12/11/2024 [...] - 99 mg/dL 03/23 4:[address] [facility] Not Available Not Available 12/11/2024 [...] - 99 mg/dL 03/23 11:[address] [facility] Not Available Not Available 12/11/2024 [...] 11.0 x10'3 /uL 03/23 9:[address] [facility] Not Available Not Available 12/11/2024 16:17:40 03/23/20 24 03/23/2024 CBC W Auto Diffe renti al panel - Blood erythrocytes [#/volume] in blood by automated count 3.55 text: 4.70 - 6.10 x10'6/ uL low RBC 3.55 (L) 4.70 - 6.10 x10'6 /uL 03/23 9:[address] [facility] Not Available Not Available 12/11/2024 16:17:40 03/23/20 24 03/23/2024 CBC W Auto Diffe renti al panel - Blood hemoglobin [mass/volume ] in blood 7.7 text: 14.0 - 18.0 g/dL low HGB 7.7 (L) 14.0 - 18.0 G/DL 03/23 9:[address] [facility] Not Available Not Available 12/11/2024 16:17:40 03/23/20 24 03/23/2024 CBC W Auto Diffe renti al panel - Blood hematocrit [volume fraction] of blood by calculation 28.4 % low: 43%hig h: 54% low HCT 28.4 (L) 43.0 - 54.0 % 03/23 9:07 AM CDT [facility] Not Available Not Available 12/11/2024 16:17:40 03/23/20 24 03/23/2024 CBC W Auto Diffe renti al panel - Blood MCV [entitic mean volume] in red blood cells 80 text: 80.0 - 94.0 fL MCV 80.0 80.0 - 94.0 FL 03/23 9:[address] [facility] Not Available Not Available 12/11/2024 16:17:40 03/23/20 24 03/23/2024 CBC W Auto Diffe renti al panel - Blood MCH [entitic mass] 21.7 pg low: 27pghi gh: 31pg low MCH 21.7 (L) 27.0 - 31.0 PG 03/23 9:[address] [facility] Not Available Not Available 12/11/2024 16:17:40 03/23/20 24 03/23/2024 CBC W Auto Diffe renti al panel - Blood MCHC [entitic mass/volume] in red blood cells 27.1 text: 32.0 - 36.0 g/dL low MCHC 27.1 (L) 32.0 - 36.0 G/DL 03/23 9:[address] [facility] Not Available Not Available 12/11/2024 16:17:40 03/23/20 24 03/23/2024 CBC W Auto Diffe renti al panel - Blood RDW 23.3 % low: 11.5%h igh: 14.5% high RDW 23.3 (H) 11.5 - 14.5 % 03/23 9:[address] [facility] Not Available Not Available 12/11/2024 16:17:40 03/23/20 24 03/23/2024 CBC W Auto Diffe renti al panel - Blood platelets [#/volume] in blood 247 text: 130 - 400 x10'3/ uL PLT 247 130 - 400 x10'3 /uL 03/23 9:[address] [facility] Not Available Not Available 12/11/2024 16:17:40 03/23/20 24 03/23/2024 CBC W Auto Diffe renti al panel - Blood platelet [entitic mean volume] in blood 10.2 text: 9.3 - 12.2 fL MPV 10.2 9.3 - 12.2 FL 03/23 9:07 AM CDT [facility] Not Available Not Available 12/11/2024 16:17:40 03/23/20 24 03/23/2024 CBC W Auto Diffe renti al panel - Blood differential cell count method - blood AUTOMA ANIBAL DIFFER ENTIAL DIFFE RENTI AL TYPE AUTOM ATED DIFFE RENTI AL 03/23 9:[address] [facility] Not Available Not Available 12/11/2024 16:17:40 03/23/20 24 03/23/2024 CBC W Auto Diffe renti al panel - Blood neutrophils/ leukocytes in blood by automated count 67 % NEUTR OPHIL S % 67.0 % 03/23 9:[address] [facility] Not Available Not Available 12/11/2024 16:17:40 03/23/20 24 03/23/2024 CBC W Auto Diffe renti al panel - Blood lymphocytes/ leukocytes in blood by automated count 19.3 % LYMPH OCYTE S % 19.3 % 03/23 9:[address] [facility] Not Available Not Available 12/11/2024 16:17:40 03/23/20 24 03/23/2024 CBC W Auto Diffe renti al panel - Blood monocytes/le ukocytes in blood by automated count 11.9 % MONOC YTES % 11.9 % 03/23 9:[address] [facility] Not Available Not Available 12/11/2024 16:17:40 03/23/20 24 03/23/2024 CBC W Auto Diffe renti al panel - Blood eosinophils/ leukocytes in blood by automated count 1 % EOSIN OPHIL S 1.0 % 03/23 9:[address] [facility] Not Available Not Available 12/11/2024 16:17:40 03/23/20 24 03/23/2024 CBC W Auto Diffe renti al panel - Blood basophils/le ukocytes in blood by automated count 0 % BASOP HILS 0.0 % 03/23 9:[address] [facility] Not Available Not Available 12/11/2024 16:17:40 03/23/20 24 03/23/2024 CBC W Auto Diffe renti al panel - Blood immature granulocytes /leukocytes in blood by automated count 0.8 % IMMAT URE GRANS % 0.8 % 03/23 9:[address] [facility] Not Available Not Available 12/11/2024 16:17:40 03/23/20 24 03/23/2024 CBC W Auto Diffe renti al panel - Blood neutrophils [#/volume] in blood 4.23 text: 1.80 - 7.70 x10'3/ uL ABS. NEUTR OPHIL S 4.23 1.80 - 7.70 x10'3 /uL 03/23 9:[address] [facility] Not Available Not Available 12/11/2024 16:17:40 03/23/20 24 03/23/2024 CBC W Auto Diffe renti al panel - Blood lymphocytes [#/volume] in blood 1.22 text: 1.00 - 4.80 x10'3/ uL ABS. LYMPH OCYTE S 1.22 1.00 - 4.80 x10'3 /uL 03/23 9:[address] [facility] Not Available Not Available 12/11/2024 16:17:40 03/23/20 24 03/23/2024 CBC W Auto Diffe renti al panel - Blood monocytes [#/volume] in blood 0.75 text: 0.30 - 0.82 x10'3/ uL ABS. MONOC YTES 0.75 0.30 - 0.82 x10'3 /uL 03/23 9:[address] [facility] Not Available Not Available 12/11/2024 16:17:40 03/23/20 24 03/23/2024 CBC W Auto Diffe renti al panel - Blood eosinophils [#/volume] in blood 0.06 text: 0.04 - 0.54 x10'3/ uL ABS. EOSIN OPHIL S 0.06 0.04 - 0.54 x10'3 /uL 03/23 9:41 AM CDT [facility] Not Available Not Available 12/11/2024 16:17:40 03/23/20 24 03/23/2024 CBC W Auto Diffe renti al panel - Blood basophils [#/volume] in blood 0 text: 0.01 - 0.08 x10'3/ uL low ABS. BASOP HILS 0.00 (L) 0.01 - 0.08 x10'3 /uL 03/23 9:[address] [facility] Not Available Not Available 12/11/2024 16:17:40 03/23/20 24 03/23/2024 CBC W Auto Diffe renti al panel - Blood immature granulocytes [#/volume] in blood 0.05 text: 0.00 - 0.49 x10'3/ uL ABS. IMMAT URE GRANU LOCYT ES 0.05 0.00 - 0.49 x10'3 /uL 03/23 9:[address] [facility] Not Available Not Available 12/11/2024 16:17:40 03/23/20 24 03/23/2024 CBC W Auto Diffe renti al panel - Blood erythrocytes [morphology] in blood by automated count SLIDE REVIEW ED RBC MORPH OLOGY SLIDE REVIE WED 03/23 9:41 AM CDT [facility] Not Available Not Available 12/11/2024 16:17:40 03/23/20 24 03/23/2024 CBC W Auto Diffe renti al panel - Blood anisocytosis [presence] in blood 2+ ANISO 2+ 03/23 9:[address] [facility] Not Available Not Available 12/11/2024 16:17:40 03/23/20 24 03/23/2024 CBC W Auto Diffe renti al panel - Blood poikilocytos is [presence] in blood by automated count 2+ POIKL O 2+ 03/23 9:[address] [facility] Not Available Not Available 12/11/2024 16:17:40 03/23/20 24 03/23/2024 CBC W Auto Diffe renti al panel - Blood platelets [#/volume] in blood by automated count ADEQUA TE PLT EST. ADEQU ATE 03/23 9:[address] [facility] Not Available Not Available 12/11/2024 [...] 70 - 99 MG/DL 03/23 9:[address] [facility] Not Available Not Available 12/11/2024 16:17:40 03/23/20 24 03/23/2024 Basic metab olic 2000 panel - Serum or Plasm a urea nitrogen [mass/volume ] in serum or plasma 21 text: 7 - 18 mg/dL high BUN 21 (H) 7 - 18 MG/DL 03/23 9:[address] [facility] Not Available Not Available 12/11/2024 16:17:40 03/23/20 24 03/23/2024 Basic metab olic 2000 panel - Serum or Plasm a creatinine [mass/volume ] in serum or plasma 0.75 text: 0.7 - 1.3 mg/dL CREAT ININE S/P/B 0.75 0.7 - 1.3 MG/DL 03/23 9:[address] [facility] Not Available Not Available 12/11/2024 16:17:40 03/23/20 24 03/23/2024 Basic metab olic 2000 panel - Serum or Plasm a sodium [moles/volum e] in serum or plasma 137 text: 136 - 145 mmol/L SODIU M S/P/B 137 136 - 145 MMOL/ L 03/23 9:[address] [facility] Not Available Not Available 12/11/2024 16:17:40 03/23/20 24 03/23/2024 Basic metab olic 2000 panel - Serum or Plasm a potassium [moles/volum e] in serum or plasma 4.2 text: 3.5 - 5.1 mmol/L POTAS SIUM S/P/B 4.2 3.5 - 5.1 MMOL/ L 03/23 9:[address] [facility] Not Available Not Available 12/11/2024 16:17:40 03/23/20 24 03/23/2024 Basic metab olic 2000 panel - Serum or Plasm a chloride [moles/volum e] in serum or plasma 102 text: 100 - 108 mmol/L CHLOR SYLVIA S/P/B 102 100 - 108 MMOL/ L 03/23 9:05 AM [facility] Not Available Not Available 12/11/2024 16:17:40 03/23/20 24 03/23/2024 Basic metab olic 2000 panel - Serum or Plasm a carbon dioxide, total [moles/volum e] in serum or plasma 31.2 text: 21 - 32 mmol/L CO2 31.2 21 - 32 MMOL/ L 03/23 9:[address] [facility] Not Available Not Available 12/11/2024 16:17:40 03/23/20 24 03/23/2024 Basic metab olic 2000 panel - Serum or Plasm a calcium [mass/volume ] in serum or plasma 8.9 text: 8.5 - 10.1 mg/dL CALCI UM S/P/B 8.9 8.5 - 10.1 MG/DL 03/23 9:05 AM [facility] Not Available Not Available 12/11/2024 16:17:40 03/23/20 24 03/23/2024 Basic metab olic 2000 panel - Serum or Plasm a anion gap in serum or plasma by calculation 3.8 text: 5 - 15 mmol/L low ANION GAP 3.8 (L) 5 - 15 MMOL/ L 03/23 9:05 AM [facility] Not Available Not Available 12/11/2024 16:17:40 03/23/20 24 03/23/2024 Basic metab olic 2000 panel - Serum or Plasm a urea nitrogen/cre atinine [mass ratio] in serum or plasma 28.2 low: 6high: 26 high BUN CREAT ININE RATIO 28.2 (H) 6 - 26 03/23 9:05 AM [facility] Not Available Not Available 12/11/2024 16:17:40 03/23/20 24 03/23/2024 Basic metab olic 2000 panel - Serum or Plasm a glomerular filtration rate [volume rate/area] in serum, plasma or blood by creatinine-b ased formula (CKD-epi 2020)/1.73 sq M text: >90 mL/min /1.73 M2 GFR ESTIM ATE >90 >90 ML/OK N/1.7 3 M2 03/23 9:05 AM [facility] Not Available Not Available 12/11/2024 16:17:40 [...] - 99 mg/dL 03/23 6:[address] [facility] Not Available Not Available 12/11/2024 16:17:40 03/23/20 24 03/23/2024 Gluco se [Mass /volu me] in Blood by Autom ated test strip glucose [mass/volume ] in blood by automated test strip 67 mg/dL low: 70mg/d Lhigh: 99mg/d L low GLUCO SE POC 67 (L) 70 - 99 mg/dL 03/23 6:[address] [facility] Not Available Not Available 12/11/2024 [...] - 99 mg/dL 03/24 8:[address] [facility] Not Available Not Available 12/11/2024 [...] - 99 mg/dL 03/24 3:[address] [facility] Not Available Not Available 12/11/2024 [...] 11.0 x10'3 /uL 03/24 12:[address] [facility] Not Available Not Available 12/11/2024 16:17:41 03/24/20 24 03/24/2024 CBC W Auto Diffe renti al panel - Blood erythrocytes [#/volume] in blood by automated count 3.41 text: 4.70 - 6.10 x10'6/ uL low RBC 3.41 (L) 4.70 - 6.10 x10'6 /uL 03/24 12:[address] [facility] Not Available Not Available 12/11/2024 16:17:41 03/24/20 24 03/24/2024 CBC W Auto Diffe renti al panel - Blood hemoglobin [mass/volume ] in blood 7.6 text: 14.0 - 18.0 g/dL low HGB 7.6 (L) 14.0 - 18.0 G/DL 03/24 12:40 PM CDT [facility] Not Available Not Available 12/11/2024 16:17:41 03/24/20 24 03/24/2024 CBC W Auto Diffe renti al panel - Blood hematocrit [volume fraction] of blood by calculation 27.2 % low: 43%hig h: 54% low HCT 27.2 (L) 43.0 - 54.0 % 03/24 12:40 PM CDT [facility] Not Available Not Available 12/11/2024 16:17:41 03/24/20 24 03/24/2024 CBC W Auto Diffe renti al panel - Blood MCV [entitic mean volume] in red blood cells 79.8 text: 80.0 - 94.0 fL low MCV 79.8 (L) 80.0 - 94.0 FL 03/24 12:[address] [facility] Not Available Not Available 12/11/2024 16:17:41 03/24/20 24 03/24/2024 CBC W Auto Diffe renti al panel - Blood MCH [entitic mass] 22.3 pg low: 27pghi gh: 31pg low MCH 22.3 (L) 27.0 - 31.0 PG 03/24 12:[address] [facility] Not Available Not Available 12/11/2024 16:17:41 03/24/20 24 03/24/2024 CBC W Auto Diffe renti al panel - Blood MCHC [entitic mass/volume] in red blood cells 27.9 text: 32.0 - 36.0 g/dL low MCHC 27.9 (L) 32.0 - 36.0 G/DL 03/24 12:[address] [facility] Not Available Not Available 12/11/2024 16:17:41 03/24/20 24 03/24/2024 CBC W Auto Diffe renti al panel - Blood RDW 23.2 % low: 11.5%h igh: 14.5% high RDW 23.2 (H) 11.5 - 14.5 % 03/24 12:[address] [facility] Not Available Not Available 12/11/2024 16:17:41 03/24/20 24 03/24/2024 CBC W Auto Diffe renti al panel - Blood platelets [#/volume] in blood 243 text: 130 - 400 x10'3/ uL PLT 243 130 - 400 x10'3 /uL 03/24 12:[address] [facility] Not Available Not Available 12/11/2024 16:17:41 07/28/20 24 03/24/2024 CBC W Auto Diffe renti al panel - Blood platelet [entitic mean volume] in blood 9.8 text: 9.3 - 12.2 fL MPV 9.8 9.3 - 12.2 FL 03/24 12:[address] [facility] Not Available Not Available 12/11/2024 16:17:41 03/24/20 24 03/24/2024 CBC W Auto Diffe renti al panel - Blood differential cell count method - blood AUTOMA ANIBAL DIFFER ENTIAL DIFFE RENTI AL TYPE AUTOM ATED DIFFE RENTI AL 03/24 1:[address] [facility] Not Available Not Available 12/11/2024 16:17:41 03/24/20 24 03/24/2024 CBC W Auto Diffe renti al panel - Blood neutrophils/ leukocytes in blood by automated count 73.9 % NEUTR OPHIL S % 73.9 % 03/24 1:[address] [facility] Not Available Not Available 12/11/2024 16:17:41 03/24/20 24 03/24/2024 CBC W Auto Diffe renti al panel - Blood lymphocytes/ leukocytes in blood by automated count 14.8 % LYMPH OCYTE S % 14.8 % 03/24 1:[address] [facility] Not Available Not Available 12/11/2024 16:17:41 03/24/20 24 03/24/2024 CBC W Auto Diffe renti al panel - Blood monocytes/le ukocytes in blood by automated count 9.9 % MONOC YTES % 9.9 % 03/24 1:[address] [facility] Not Available Not Available 12/11/2024 16:17:41 03/24/20 24 03/24/2024 CBC W Auto Diffe renti al panel - Blood eosinophils/ leukocytes in blood by automated count 0.7 % EOSIN OPHIL S 0.7 % 03/24 1:[address] [facility] Not Available Not Available 12/11/2024 16:17:41 03/24/20 24 03/24/2024 CBC W Auto Diffe renti al panel - Blood basophils/le ukocytes in blood by automated count 0.2 % BASOP HILS 0.2 % 03/24 1:[address] [facility] Not Available Not Available 12/11/2024 16:17:41 03/24/20 24 03/24/2024 CBC W Auto Diffe renti al panel - Blood immature granulocytes /leukocytes in blood by automated count 0.5 % IMMAT URE GRANS % 0.5 % 03/24 1:[address] [facility] Not Available Not Available 12/11/2024 16:17:41 03/24/20 24 03/24/2024 CBC W Auto Diffe renti al panel - Blood neutrophils [#/volume] in blood 4.04 text: 1.80 - 7.70 x10'3/ uL ABS. NEUTR OPHIL S 4.04 1.80 - 7.70 x10'3 /uL 03/24 1:[address] [facility] Not Available Not Available 12/11/2024 16:17:41 03/24/20 24 03/24/2024 CBC W Auto Diffe renti al panel - Blood lymphocytes [#/volume] in blood 0.81 text: 1.00 - 4.80 x10'3/ uL low ABS. LYMPH OCYTE S 0.81 (L) 1.00 - 4.80 x10'3 /uL 03/24 1:[address] [facility] Not Available Not Available 12/11/2024 16:17:41 03/24/20 24 03/24/2024 CBC W Auto Diffe renti al panel - Blood monocytes [#/volume] in blood 0.54 text: 0.30 - 0.82 x10'3/ uL ABS. MONOC YTES 0.54 0.30 - 0.82 x10'3 /uL 07/28 /2024 1:[address] [facility] Not Available Not Available 12/11/2024 16:17:41 03/24/20 24 03/24/2024 CBC W Auto Diffe renti al panel - Blood eosinophils [#/volume] in blood 0.04 text: 0.04 - 0.54 x10'3/ uL ABS. EOSIN OPHIL S 0.04 0.04 - 0.54 x10'3 /uL 03/24 1:[address] [facility] Not Available Not Available 12/11/2024 16:17:41 03/24/20 24 03/24/2024 CBC W Auto Diffe renti al panel - Blood basophils [#/volume] in blood 0.01 text: 0.01 - 0.08 x10'3/ uL ABS. BASOP HILS 0.01 0.01 - 0.08 x10'3 /uL 03/24 1:[address] [facility] Not Available Not Available 12/11/2024 16:17:41 03/24/20 24 03/24/2024 CBC W Auto Diffe renti al panel - Blood immature granulocytes [#/volume] in blood 0.03 text: 0.00 - 0.49 x10'3/ uL ABS. IMMAT URE GRANU LOCYT ES 0.03 0.00 - 0.49 x10'3 /uL 03/24 1:[address] [facility] Not Available Not Available 12/11/2024 16:17:41 03/24/20 24 03/24/2024 CBC W Auto Diffe renti al panel - Blood erythrocytes [morphology] in blood by automated count SLIDE REVIEW ED RBC MORPH OLOGY SLIDE REVIE WED 03/24 1:[address] [facility] Not Available Not Available 12/11/2024 16:17:41 03/24/20 24 03/24/2024 CBC W Auto Diffe renti al panel - Blood anisocytosis [presence] in blood 2+ ANISO 2+ 03/24 1:[address] [facility] Not Available Not Available 12/11/2024 16:17:41 03/24/20 24 03/24/2024 CBC W Auto Diffe renti al panel - Blood poikilocytos is [presence] in blood by automated count 1+ POIKL O 1+ 03/24 1:[address] [facility] Not Available Not Available 12/11/2024 16:17:41 03/24/20 24 03/24/2024 CBC W Auto Diffe renti al panel - Blood hypochromia [presence] in blood 1+ HYPOC HROMA JAZMYNE 1+ 03/24 1:[address] [facility] Not Available Not Available 12/11/2024 16:17:41 03/24/20 24 03/24/2024 CBC W Auto Diffe renti al panel - Blood polychromasi a [presence] in blood by light microscopy 1+ POLY 1+ 03/24 1:[address] [facility] Not Available Not Available 12/11/2024 16:17:41 03/24/20 24 03/24/2024 CBC W Auto Diffe renti al panel - Blood platelets [#/volume] in blood by automated count ADEQUA TE PLT EST. ADEQU ATE 03/24 1:[address] [facility] Not Available Not Available 12/11/2024 [...] - 99 mg/dL 03/24 11:48 AM CDT [facility] Not Available Not Available [...] - 99 mg/dL 03/24 7:02 AM CDT [facility] Not Available Not Available [...] 11.0 x10'3 /uL 03/24 5:[address] [facility] Not Available Not Available 12/11/2024 16:17:41 03/24/20 24 03/24/2024 CBC W Auto Diffe renti al panel - Blood erythrocytes [#/volume] in blood by automated count 3.35 text: 4.70 - 6.10 x10'6/ uL low RBC 3.35 (L) 4.70 - 6.10 x10'6 /uL 03/24 5:[address] [facility] Not Available Not Available 12/11/2024 16:17:41 03/24/20 24 03/24/2024 CBC W Auto Diffe renti al panel - Blood hemoglobin [mass/volume ] in blood 7.2 text: 14.0 - 18.0 g/dL low HGB 7.2 (L) 14.0 - 18.0 G/DL 03/24 5:[address] [facility] Not Available Not Available 12/11/2024 16:17:41 03/24/20 24 03/24/2024 CBC W Auto Diffe renti al panel - Blood hematocrit [volume fraction] of blood by calculation 26.2 % low: 43%hig h: 54% low HCT 26.2 (L) 43.0 - 54.0 % 03/24 5:[address] [facility] Not Available Not Available 12/11/2024 16:17:41 03/24/20 24 03/24/2024 CBC W Auto Diffe renti al panel - Blood MCV [entitic mean volume] in red blood cells 78.2 text: 80.0 - 94.0 fL low MCV 78.2 (L) 80.0 - 94.0 FL 03/24 5:[address] [facility] Not Available Not Available 12/11/2024 16:17:41 03/24/20 24 03/24/2024 CBC W Auto Diffe renti al panel - Blood MCH [entitic mass] 21.5 pg low: 27pghi gh: 31pg low MCH 21.5 (L) 27.0 - 31.0 PG 03/24 5:[address] [facility] Not Available Not Available 12/11/2024 16:17:41 03/24/20 24 03/24/2024 CBC W Auto Diffe renti al panel - Blood MCHC [entitic mass/volume] in red blood cells 27.5 text: 32.0 - 36.0 g/dL low MCHC 27.5 (L) 32.0 - 36.0 G/DL 03/24 5:[address] [facility] Not Available Not Available 12/11/2024 16:17:41 03/24/20 24 03/24/2024 CBC W Auto Diffe renti al panel - Blood RDW 23.2 % low: 11.5%h igh: 14.5% high RDW 23.2 (H) 11.5 - 14.5 % 03/24 5:[address] [facility] Not Available Not Available 12/11/2024 16:17:41 03/24/20 24 03/24/2024 CBC W Auto Diffe renti al panel - Blood platelets [#/volume] in blood 274 text: 130 - 400 x10'3/ uL PLT 274 130 - 400 x10'3 /uL 03/24 5:[address] [facility] Not Available Not Available 12/11/2024 16:17:41 03/24/20 24 03/24/2024 CBC W Auto Diffe renti al panel - Blood platelet [entitic mean volume] in blood 10.3 text: 9.3 - 12.2 fL MPV 10.3 9.3 - 12.2 FL 03/24 5:[address] [facility] Not Available Not Available 12/11/2024 16:17:41 03/24/20 24 03/24/2024 CBC W Auto Diffe renti al panel - Blood differential cell count method - blood AUTOMA ANIBAL DIFFER ENTIAL DIFFE RENTI AL TYPE AUTOM ATED DIFFE RENTI AL 03/24 5:[address] [facility] Not Available Not Available 12/11/2024 16:17:41 03/24/20 24 03/24/2024 CBC W Auto Diffe renti al panel - Blood neutrophils/ leukocytes in blood by automated count 69 % NEUTR OPHIL S % 69.0 % 03/24 5:[address] [facility] Not Available Not Available 12/11/2024 16:17:41 03/24/20 24 03/24/2024 CBC W Auto Diffe renti al panel - Blood lymphocytes/ leukocytes in blood by automated count 18.2 % LYMPH OCYTE S % 18.2 % 03/24 5:[address] [facility] Not Available Not Available 12/11/2024 16:17:41 03/24/20 24 03/24/2024 CBC W Auto Diffe renti al panel - Blood monocytes/le ukocytes in blood by automated count 10.9 % MONOC YTES % 10.9 % 03/24 5:[address] [facility] Not Available Not Available 12/11/2024 16:17:41 03/24/20 24 03/24/2024 CBC W Auto Diffe renti al panel - Blood eosinophils/ leukocytes in blood by automated count 1.2 % EOSIN OPHIL S 1.2 % 03/24 5:[address] [facility] Not Available Not Available 12/11/2024 16:17:41 03/24/20 24 03/24/2024 CBC W Auto Diffe renti al panel - Blood basophils/le ukocytes in blood by automated count 0.2 % BASOP HILS 0.2 % 03/24 5:[address] [facility] Not Available Not Available 12/11/2024 16:17:41 03/24/20 24 03/24/2024 CBC W Auto Diffe renti al panel - Blood immature granulocytes /leukocytes in blood by automated count 0.5 % IMMAT URE GRANS % 0.5 % 03/24 5:[address] [facility] Not Available Not Available 12/11/2024 16:17:41 03/24/20 24 03/24/2024 CBC W Auto Diffe renti al panel - Blood neutrophils [#/volume] in blood 4.14 text: 1.80 - 7.70 x10'3/ uL ABS. NEUTR OPHIL S 4.14 1.80 - 7.70 x10'3 /uL 03/24 5:21 AM CDT [facility] Not Available Not Available 12/11/2024 16:17:41 03/24/20 24 03/24/2024 CBC W Auto Diffe renti al panel - Blood lymphocytes [#/volume] in blood 1.09 text: 1.00 - 4.80 x10'3/ uL ABS. LYMPH OCYTE S 1.09 1.00 - 4.80 x10'3 /uL 03/24 5:[address] [facility] Not Available Not Available 12/11/2024 16:17:41 03/24/20 24 03/24/2024 CBC W Auto Diffe renti al panel - Blood monocytes [#/volume] in blood 0.65 text: 0.30 - 0.82 x10'3/ uL ABS. MONOC YTES 0.65 0.30 - 0.82 x10'3 /uL 03/24 5:[address] [facility] Not Available Not Available 12/11/2024 16:17:41 03/24/20 24 03/24/2024 CBC W Auto Diffe renti al panel - Blood eosinophils [#/volume] in blood 0.07 text: 0.04 - 0.54 x10'3/ uL ABS. EOSIN OPHIL S 0.07 0.04 - 0.54 x10'3 /uL 03/24 5:[address] [facility] Not Available Not Available 12/11/2024 16:17:41 03/24/20 24 03/24/2024 CBC W Auto Diffe renti al panel - Blood basophils [#/volume] in blood 0.01 text: 0.01 - 0.08 x10'3/ uL ABS. BASOP HILS 0.01 0.01 - 0.08 x10'3 /uL 03/24 5:[address] [facility] Not Available Not Available 12/11/2024 16:17:41 03/24/20 24 03/24/2024 CBC W Auto Diffe renti al panel - Blood immature granulocytes [#/volume] in blood 0.03 text: 0.00 - 0.49 x10'3/ uL ABS. IMMAT URE GRANU LOCYT ES 0.03 0.00 - 0.49 x10'3 /uL 03/24 5:21 AM CDT [facility] Not Available Not Available 12/11/2024 16:17:41 03/24/20 24 03/24/2024 CBC W Auto Diffe renti al panel - Blood erythrocytes [morphology] in blood by automated count SLIDE REVIEW ED RBC MORPH OLOGY SLIDE REVIE WED 03/24 5:[address] [facility] Not Available Not Available 12/11/2024 16:17:41 03/24/20 24 03/24/2024 CBC W Auto Diffe renti al panel - Blood anisocytosis [presence] in blood 2+ ANISO 2+ 03/24 5:[address] [facility] Not Available Not Available 12/11/2024 16:17:41 03/24/20 24 03/24/2024 CBC W Auto Diffe renti al panel - Blood poikilocytos is [presence] in blood by automated count 2+ POIKL O 2+ 03/24 5:21 AM CDT [facility] Not Available Not Available 12/11/2024 16:17:41 03/24/20 24 03/24/2024 CBC W Auto Diffe renti al panel - Blood hypochromia [presence] in blood 1+ HYPOC HROMA JAZMYNE 1+ 03/24 5:[address] [facility] Not Available Not Available 12/11/2024 16:17:41 03/24/20 24 03/24/2024 CBC W Auto Diffe renti al panel - Blood polychromasi a [presence] in blood by light microscopy 2+ POLY 2+ 03/24 5:[address] [facility] Not Available Not Available 12/11/2024 16:17:41 03/24/20 24 03/24/2024 CBC W Auto Diffe renti al panel - Blood acanthocytes [presence] in blood by light microscopy 1+ ACANT HOCYT ES 1+ 03/24 5:[address] [facility] Not Available Not Available 12/11/2024 16:17:41 03/24/20 24 03/24/2024 CBC W Auto Diffe renti al panel - Blood elliptocytes 1+ ELLIP TOCYT ES 1+ 03/24 5:[address] [facility] Not Available Not Available 12/11/2024 16:17:41 03/24/20 24 03/24/2024 CBC W Auto Diffe renti al panel - Blood platelets [#/volume] in blood by automated count ADEQUA TE PLT EST. ADEQU ATE 03/24 5:[address] [facility] Not Available Not Available 12/11/2024 [...] 70 - 99 MG/DL 03/24 5:[address] [facility] Not Available Not Available 12/11/2024 16:17:41 03/24/20 24 03/24/2024 Basic metab olic 2000 panel - Serum or Plasm a urea nitrogen [mass/volume ] in serum or plasma 16 text: 7 - 18 mg/dL BUN 16 7 - 18 MG/DL 03/24 5:[address] [facility] Not Available Not Available 12/11/2024 16:17:41 03/24/20 24 03/24/2024 Basic metab olic 2000 panel - Serum or Plasm a creatinine [mass/volume ] in serum or plasma 0.76 text: 0.7 - 1.3 mg/dL CREAT ININE S/P/B 0.76 0.7 - 1.3 MG/DL 03/24 5:[address] [facility] Not Available Not Available 12/11/2024 16:17:41 03/24/20 24 03/24/2024 Basic metab olic 2000 panel - Serum or Plasm a sodium [moles/volum e] in serum or plasma 135 text: 136 - 145 mmol/L low SODIU M S/P/B 135 (L) 136 - 145 MMOL/ L 03/24 5:[address] [facility] Not Available Not Available 12/11/2024 16:17:41 03/24/20 24 03/24/2024 Basic metab olic 2000 panel - Serum or Plasm a potassium [moles/volum e] in serum or plasma 4.2 text: 3.5 - 5.1 mmol/L POTAS SIUM S/P/B 4.2 3.5 - 5.1 MMOL/ L 03/24 5:[address] [facility] Not Available Not Available 12/11/2024 16:17:41 03/24/20 24 03/24/2024 Basic metab olic 2000 panel - Serum or Plasm a chloride [moles/volum e] in serum or plasma 102 text: 100 - 108 mmol/L CHLOR SYLVIA S/P/B 102 100 - 108 MMOL/ L 03/24 5:[address] [facility] Not Available Not Available 12/11/2024 16:17:41 03/24/20 24 03/24/2024 Basic metab olic 2000 panel - Serum or Plasm a carbon dioxide, total [moles/volum e] in serum or plasma 30.5 text: 21 - 32 mmol/L CO2 30.5 21 - 32 MMOL/ L 03/24 5:[address] [facility] Not Available Not Available 12/11/2024 16:17:41 03/24/20 24 03/24/2024 Basic metab olic 2000 panel - Serum or Plasm a calcium [mass/volume ] in serum or plasma 8.7 text: 8.5 - 10.1 mg/dL CALCI UM S/P/B 8.7 8.5 - 10.1 MG/DL 03/24 5:[address] [facility] Not Available Not Available 12/11/2024 16:17:41 03/24/20 24 03/24/2024 Basic metab olic 2000 panel - Serum or Plasm a anion gap in serum or plasma by calculation 2.5 text: 5 - 15 mmol/L low ANION GAP 2.5 (L) 5 - 15 MMOL/ L 03/24 5:[address] [facility] Not Available Not Available 12/11/2024 16:17:41 03/24/20 24 03/24/2024 Basic metab olic 2000 panel - Serum or Plasm a urea nitrogen/cre atinine [mass ratio] in serum or plasma 20.9 low: 6high: 26 BUN CREAT ININE RATIO 20.9 6 - 26 03/24 5:[address] [facility] Not Available Not Available 12/11/2024 16:17:41 03/24/20 24 03/24/2024 Basic metab olic 2000 panel - Serum or Plasm a glomerular filtration rate [volume rate/area] in serum, plasma or blood by creatinine-b ased formula (CKD-epi 2020)/1.73 sq M text: >90 mL/min /1.73 M2 GFR ESTIM ATE >90 >90 ML/OK N/1.7 3 M2 03/24 5:[address] [facility] Not Available Not Available 12/11/2024 [...] - 36.5 SEC 03/24 5:[address] [facility] Not Available Not Available 12/11/2024 [...] - 12.9 SEC 03/24 5:[address] [facility] Not Available Not Available 12/11/2024 16:17:41 03/24/20 24 03/24/2024 Proth rombi n time (PT) INR in platelet poor plasma by coagulation assay 1 INR 1.0 03/24 5:[address] [facility] Not Available Not Available 12/11/2024 16:17:41 03/25/20 24 03/25/2024 POC GLUCO SE POC glucose 156 mg/dL 70-99 high Not Available [facility] (Lab) [place], [address], 03/25/2024 14:22:04 03/25/20 24 03/25/2024 POC GLUCO SE POC glucose 134 mg/dL 70-99 high Not Available [facility] (Lab) [place], [address], 03/25/2024 15:25:49 03/25/20 24 03/25/2024 Gluco se [Mass /volu me] in Blood by Autom ated test strip glucose [mass/volume ] in blood by automated test strip 276 mg/dL low: 70mg/d Lhigh: 99mg/d L high GLUCO SE POC 276 (H) 70 - 99 mg/dL 03/25 8:27 PM CDT [facility] Not Available Not Available 12/11/2024 [...] 7.35 - 7.45 03/25 5:46 PM CDT [facility] Not Available Not Available 12/11/2024 16:17:42 03/25/20 24 03/25/2024 Gas panel - Arter ial blood carbon dioxide [partial pressure] in blood 53 text: 35.0 - 45.0 mmHg high PCO2 53.0 (H) 35.0 - 45.0 MMHG 03/25 5:46 PM CDT [facility] Not Available Not Available 12/11/2024 16:17:42 03/25/20 24 03/25/2024 Gas panel - Arter ial blood oxygen [partial pressure] in blood 54 text: 83.0 - 108.0 mmHg low PO2 54.0 (L) 83.0 - 108.0 MMHG 03/25 5:46 PM CDT [facility] Not Available Not Available 12/11/2024 16:17:42 03/25/20 24 03/25/2024 Gas panel - Arter ial blood carbon dioxide, total [moles/volum e] in blood 32.2 text: 19.0 - 24.0 mmol/L high TOTAL CO2 ARTER IAL 32.2 (H) 19.0 - 24.0 MMOL/ L 03/25 5:[address] [facility] Not Available Not Available 12/11/2024 16:17:42 03/25/20 24 03/25/2024 Gas panel - Arter ial blood base excess in arterial blood by calculation 4 text: 0.0 - 3.0 mmol/L high BASE EXCES S 4.0 (H) 0.0 - 3.0 MMOL/ L 03/25 5:[address] [facility] Not Available Not Available 12/11/2024 16:17:42 03/25/20 24 03/25/2024 Gas panel - Arter ial blood oxygen saturation in blood 87 % low: 94%hig h: 98% low O2 SATUR ATION 87 (L) 94.0 - 98.0 % 03/25 5:[address] [facility] Not Available Not Available 12/11/2024 16:17:42 03/25/20 24 03/25/2024 Gas panel - Arter ial blood bicarbonate [moles/volum e] in blood 30.6 text: 21.0 - 28.0 mmol/L high BICAR B ARTER IAL 30.6 (H) 21.0 - 28.0 MMOL/ L 03/25 5:[address] [facility] Not Available Not Available 12/11/2024 16:17:42 03/25/20 24 03/25/2024 Gas panel - Arter ial blood service comment 21 O2 ADMIN ARTER IAL 21 03/25 5:[address] [facility] Not Available Not Available 12/11/2024 16:17:42 03/25/20 24 03/25/2024 Gas panel - Arter ial blood specimen site narrative LT RADIAL DRAW SITE ARTER IAL LT RADIA L 03/25 5:[address] [facility] Not Available Not Available 12/11/2024 [...] - 99 mg/dL 03/25 4:[address] [facility] Not Available Not Available 12/11/2024 16:17:42 03/25/20 24 03/25/2024 Gluco se [Mass /volu me] in Blood by Autom ated test strip glucose [mass/volume ] in blood by automated test strip 134 mg/dL low: 70mg/d Lhigh: 99mg/d L high GLUCO SE POC 134 (H) 70 - 99 mg/dL 03/25 2:[address] [facility] Not Available Not Available 12/11/2024 [...] - 99 mg/dL 03/25 1:[address] [facility] Not Available Not Available 12/11/2024 16:17:42 03/25/20 24 03/25/2024 Gluco se [Mass /volu me] in Blood by Autom ated test strip interpretati on and review of laboratory results Abnorm al Not Available Not Available 16:17:42 03/25/20 24 03/26/2024 Blood type and Indir ect antib brigid scree n panel - Blood blood product units requested [#] 1 UNITS ORDER ED 1 03/26 6:[address] [facility] Not Available Not Available 12/11/2024 16:17:42 03/25/20 24 03/26/2024 Blood type and Indir ect antib brigid scree n panel - Blood ABO and Rh group panel - blood O POSITI VE ABO/R H O POSIT JOSEPH 03/25 3:[address] [facility] Not Available Not Available 12/11/2024 16:17:42 03/25/20 24 03/26/2024 Blood type and Indir ect antib brigid scree n panel - Blood blood group antibody screen [presence] in serum or plasma NEGATI VE ANTIB BRIGID SCREE N NEGAT JOSEPH 03/25 3:[address] [facility] Not Available Not Available 12/11/2024 16:17:42 03/25/20 24 03/26/2024 Blood type and Indir ect antib brigid scree n panel - Blood specimen expiration date of blood 2023,2 359 SAMPL E EXPIR ATION 03/28 ,2359 03/25 3:[address] [facility] Not Available Not Available 12/11/2024 16:17:42 03/25/20 24 03/26/2024 Blood type and Indir ect antib brigid scree n panel - Blood blood product unit id [#] [id number] BLOOD UNIT NUMBE R [id number] 03/25 4:[address] [facility] Not Available Not Available 12/11/2024 16:17:42 03/25/20 24 03/26/2024 Blood type and Indir ect antib brigid scree n panel - Blood blood product type PC LEUKOP OOR PRODU CT: PC LEUKO POOR 03/25 4:[address] [facility] Not Available Not Available 12/11/2024 16:17:42 03/25/20 24 03/26/2024 Blood type and Indir ect antib brigid scree n panel - Blood unit division 0 UNIT DIVIS ION 00 03/25 4:38 PM CDT [facility] Not Available Not Available 12/11/2024 16:17:42 03/25/20 24 03/26/2024 Blood type and Indir ect antib brigid scree n panel - Blood blood bank comment TRANSF USED,F INAL BLOOD UNIT STATU S TRANS FUSED ,ISAIAH L 03/26 6:53 AM CDT [facility] Not Available Not Available 12/11/2024 16:17:42 03/25/20 24 03/26/2024 Blood type and Indir ect antib brigid scree n panel - Blood issue date/time [id number] ISSUE DATE/ TIME [id number] 03/26 6:53 AM CDT [facility] Not Available Not Available 12/11/2024 16:17:42 03/25/20 24 03/26/2024 Blood type and Indir ect antib brigid scree n panel - Blood product code [id number] CODE E0336 V00 03/26 6:53 AM CDT [facility] Not Available Not Available 12/11/2024 16:17:42 03/25/20 24 03/26/2024 Blood type and Indir ect antib brigid scree n panel - Blood ABO/Rh unit O POS ABO/R H Unit O POS 03/26 6:53 AM CDT [facility] Not Available Not Available 12/11/2024 16:17:42 03/25/20 24 03/26/2024 Blood type and Indir ect antib brigid scree n panel - Blood ABO/Rh unit isbt code 5100 ABO/R H UNIT ISBT CODE 5100 03/26 6:53 AM CDT [facility] Not Available Not Available 12/11/2024 16:17:42 03/25/20 24 03/26/2024 Blood type and Indir ect antib brigid scree n panel - Blood blood unit expiration date 664261 BLOOD UNIT EXPIR ATION DATE [id number] 59 03/26 6:[address] [facility] Not Available Not Available 12/11/2024 16:17:42 03/25/20 24 03/26/2024 Blood type and Indir ect antib brigid scree n panel - Blood transfusion status qualitative OK TO TRANSF USE TRANS FUSIO N STATU S OK TO TRANS FUSE 03/25 4:[address] [facility] Not Available Not Available 12/11/2024 16:17:42 03/25/20 24 03/26/2024 Blood type and Indir ect antib brigid scree n panel - Blood major crossmatch [interpretat ion] COMPAT IBLE-E XM CROSS MATCH JANIS TIBLE -EXM 03/25 4:[address] [facility] Not Available Not Available 12/11/2024 16:17:42 03/25/20 24 03/25/2024 Gluco se [Mass /volu me] in Blood by Autom ated test strip glucose [mass/volume ] in blood by automated test strip 62 mg/dL low: 70mg/d Lhigh: 99mg/d L low GLUCO SE POC 62 (L) 70 - 99 mg/dL 03/25 11:[address] [facility] Not Available Not Available 12/11/2024 [...] 11.0 x10'3 /uL 03/25 8:15 AM CDT [facility] Not Available Not Available 12/11/2024 16:17:42 03/25/20 24 03/25/2024 CBC W Auto Diffe renti al panel - Blood erythrocytes [#/volume] in blood by automated count 3.48 text: 4.70 - 6.10 x10'6/ uL low RBC 3.48 (L) 4.70 - 6.10 x10'6 /uL 03/25 8:[address] [facility] Not Available Not Available 12/11/2024 16:17:42 03/25/20 24 03/25/2024 CBC W Auto Diffe renti al panel - Blood hemoglobin [mass/volume ] in blood 7.6 text: 14.0 - 18.0 g/dL low HGB 7.6 (L) 14.0 - 18.0 G/DL 03/25 8:[address] [facility] Not Available Not Available 12/11/2024 16:17:42 03/25/20 24 03/25/2024 CBC W Auto Diffe renti al panel - Blood hematocrit [volume fraction] of blood by calculation 27.4 % low: 43%hig h: 54% low HCT 27.4 (L) 43.0 - 54.0 % 03/25 8:[address] [facility] Not Available Not Available 12/11/2024 16:17:42 03/25/20 24 03/25/2024 CBC W Auto Diffe renti al panel - Blood MCV [entitic mean volume] in red blood cells 78.7 text: 80.0 - 94.0 fL low MCV 78.7 (L) 80.0 - 94.0 FL 03/25 8:15 AM CDT [facility] Not Available Not Available 12/11/2024 16:17:42 03/25/20 24 03/25/2024 CBC W Auto Diffe renti al panel - Blood MCH [entitic mass] 21.8 pg low: 27pghi gh: 31pg low MCH 21.8 (L) 27.0 - 31.0 PG 03/25 8:[address] [facility] Not Available Not Available 12/11/2024 16:17:42 03/25/20 24 03/25/2024 CBC W Auto Diffe renti al panel - Blood MCHC [entitic mass/volume] in red blood cells 27.7 text: 32.0 - 36.0 g/dL low MCHC 27.7 (L) 32.0 - 36.0 G/DL 03/25 8:[address] [facility] Not Available Not Available 12/11/2024 16:17:42 03/25/20 24 03/25/2024 CBC W Auto Diffe renti al panel - Blood RDW 23.6 % low: 11.5%h igh: 14.5% high RDW 23.6 (H) 11.5 - 14.5 % 03/25 8:[address] [facility] Not Available Not Available 12/11/2024 16:17:42 03/25/20 24 03/25/2024 CBC W Auto Diffe renti al panel - Blood platelets [#/volume] in blood 262 text: 130 - 400 x10'3/ uL PLT 262 130 - 400 x10'3 /uL 03/25 8:[address] [facility] Not Available Not Available 12/11/2024 16:17:42 03/25/20 24 03/25/2024 CBC W Auto Diffe renti al panel - Blood platelet [entitic mean volume] in blood 10.4 text: 9.3 - 12.2 fL MPV 10.4 9.3 - 12.2 FL 03/25 8:[address] [facility] Not Available Not Available 12/11/2024 16:17:42 03/25/20 24 03/25/2024 CBC W Auto Diffe renti al panel - Blood differential cell count method - blood AUTOMA ANIBAL DIFFER ENTIAL DIFFE RENTI AL TYPE AUTOM ATED DIFFE RENTI AL 03/25 8:[address] [facility] Not Available Not Available 12/11/2024 16:17:42 03/25/20 24 03/25/2024 CBC W Auto Diffe renti al panel - Blood neutrophils/ leukocytes in blood by automated count 67.2 % NEUTR OPHIL S % 67.2 % 03/25 8:[address] [facility] Not Available Not Available 12/11/2024 16:17:42 03/25/20 24 03/25/2024 CBC W Auto Diffe renti al panel - Blood lymphocytes/ leukocytes in blood by automated count 17.3 % LYMPH OCYTE S % 17.3 % 03/25 8:[address] [facility] Not Available Not Available 12/11/2024 16:17:42 03/25/20 24 03/25/2024 CBC W Auto Diffe renti al panel - Blood monocytes/le ukocytes in blood by automated count 13.5 % MONOC YTES % 13.5 % 03/25 8:[address] [facility] Not Available Not Available 12/11/2024 16:17:42 03/25/20 24 03/25/2024 CBC W Auto Diffe renti al panel - Blood eosinophils/ leukocytes in blood by automated count 0.9 % EOSIN OPHIL S 0.9 % 03/25 8:[address] [facility] Not Available Not Available 12/11/2024 16:17:42 03/25/20 24 03/25/2024 CBC W Auto Diffe renti al panel - Blood basophils/le ukocytes in blood by automated count 0.2 % BASOP HILS 0.2 % 03/25 8:[address] [facility] Not Available Not Available 12/11/2024 16:17:42 03/25/20 24 03/25/2024 CBC W Auto Diffe renti al panel - Blood immature granulocytes /leukocytes in blood by automated count 0.9 % IMMAT URE GRANS % 0.9 % 03/25 8:[address] [facility] Not Available Not Available 12/11/2024 16:17:42 03/25/20 24 03/25/2024 CBC W Auto Diffe renti al panel - Blood neutrophils [#/volume] in blood 3.89 text: 1.80 - 7.70 x10'3/ uL ABS. NEUTR OPHIL S 3.89 1.80 - 7.70 x10'3 /uL 03/25 8:[address] [facility] Not Available Not Available 12/11/2024 16:17:42 03/25/20 24 03/25/2024 CBC W Auto Diffe renti al panel - Blood lymphocytes [#/volume] in blood 1 text: 1.00 - 4.80 x10'3/ uL ABS. LYMPH OCYTE S 1.00 1.00 - 4.80 x10'3 /uL 03/25 8:[address] [facility] Not Available Not Available 12/11/2024 16:17:42 03/25/20 24 03/25/2024 CBC W Auto Diffe renti al panel - Blood monocytes [#/volume] in blood 0.78 text: 0.30 - 0.82 x10'3/ uL ABS. MONOC YTES 0.78 0.30 - 0.82 x10'3 /uL 03/25 8:[address] [facility] Not Available Not Available 12/11/2024 16:17:42 03/25/20 24 03/25/2024 CBC W Auto Diffe renti al panel - Blood eosinophils [#/volume] in blood 0.05 text: 0.04 - 0.54 x10'3/ uL ABS. EOSIN OPHIL S 0.05 0.04 - 0.54 x10'3 /uL 03/25 8:52 AM CDT [facility] Not Available Not Available 12/11/2024 16:17:42 03/25/20 24 03/25/2024 CBC W Auto Diffe renti al panel - Blood basophils [#/volume] in blood 0.01 text: 0.01 - 0.08 x10'3/ uL ABS. BASOP HILS 0.01 0.01 - 0.08 x10'3 /uL 03/25 8:52 AM CDT [facility] Not Available Not Available 12/11/2024 16:17:42 03/25/20 24 03/25/2024 CBC W Auto Diffe renti al panel - Blood immature granulocytes [#/volume] in blood 0.05 text: 0.00 - 0.49 x10'3/ uL ABS. IMMAT URE GRANU LOCYT ES 0.05 0.00 - 0.49 x10'3 /uL 03/25 8:52 AM CDT [facility] Not Available Not Available 12/11/2024 16:17:42 03/25/20 24 03/25/2024 CBC W Auto Diffe renti al panel - Blood erythrocytes [morphology] in blood by automated count SLIDE REVIEW ED RBC MORPH OLOGY SLIDE REVIE WED 03/25 8:52 AM CDT [facility] Not Available Not Available 12/11/2024 16:17:42 03/25/20 24 03/25/2024 CBC W Auto Diffe renti al panel - Blood anisocytosis [presence] in blood 2+ ANISO 2+ 03/25 8:52 AM CDT [facility] Not Available Not Available 12/11/2024 16:17:42 03/25/20 24 03/25/2024 CBC W Auto Diffe renti al panel - Blood hypochromia [presence] in blood 1+ HYPOC HROMA JAZMYNE 1+ 03/25 8:52 AM CDT [facility] Not Available Not Available 12/11/2024 16:17:42 03/25/20 24 03/25/2024 CBC W Auto Diffe renti al panel - Blood polychromasi a [presence] in blood by light microscopy 2+ POLY 2+ 03/25 8:[address] [facility] Not Available Not Available 12/11/2024 16:17:42 03/25/20 24 03/25/2024 CBC W Auto Diffe renti al panel - Blood schisto 2+ SCHIS TO 2+ 03/25 8:[address] [facility] Not Available Not Available 12/11/2024 16:17:42 03/25/20 24 03/25/2024 CBC W Auto Diffe renti al panel - Blood acanthocytes [presence] in blood by light microscopy 1+ ACANT HOCYT ES 1+ 03/25 8:[address] [facility] Not Available Not Available 12/11/2024 16:17:42 03/25/20 24 03/25/2024 CBC W Auto Diffe renti al panel - Blood elliptocytes 1+ ELLIP TOCYT ES 1+ 03/25 8:[address] [facility] Not Available Not Available 12/11/2024 16:17:42 03/25/20 24 03/25/2024 CBC W Auto Diffe renti al panel - Blood platelets [#/volume] in blood by automated count ADEQUA TE PLT EST. ADEQU ATE 03/25 8:[address] [facility] Not Available Not Available 12/11/2024 [...] - 99 MG/DL 03/25 9:[address] [facility] Not Available Not Available 12/11/2024 16:17:42 03/25/20 24 03/25/2024 Basic metab olic 2000 panel - Serum or Plasm a urea nitrogen [mass/volume ] in serum or plasma 17 text: 7 - 18 mg/dL BUN 17 7 - 18 MG/DL 03/25 9:[address] [facility] Not Available Not Available 12/11/2024 16:17:42 03/25/20 24 03/25/2024 Basic metab olic 1999 panel - Serum or Plasm a creatinine [mass/volume ] in serum or plasma 0.83 text: 0.7 - 1.3 mg/dL CREAT ININE S/P/B 0.83 0.7 - 1.3 MG/DL 03/25 9:[address] [facility] Not Available Not Available 12/11/2024 16:17:42 03/25/20 24 03/25/2024 Basic metab olic 2000 panel - Serum or Plasm a sodium [moles/volum e] in serum or plasma 136 text: 136 - 145 mmol/L SODIU M S/P/B 136 136 - 145 MMOL/ L 03/25 9:[address] [facility] Not Available Not Available 12/11/2024 16:17:42 03/25/20 24 03/25/2024 Basic metab olic 2000 panel - Serum or Plasm a potassium [moles/volum e] in serum or plasma 4.2 text: 3.5 - 5.1 mmol/L POTAS SIUM S/P/B 4.2 3.5 - 5.1 MMOL/ L 03/25 9:[address] [facility] Not Available Not Available 12/11/2024 16:17:42 03/25/20 24 03/25/2024 Basic metab olic 2000 panel - Serum or Plasm a chloride [moles/volum e] in serum or plasma 103 text: 100 - 108 mmol/L CHLOR SYLVIA S/P/B 103 100 - 108 MMOL/ L 03/25 9:[address] [facility] Not Available Not Available 12/11/2024 16:17:42 03/25/20 24 03/25/2024 Basic metab olic 1999 panel - Serum or Plasm a carbon dioxide, total [moles/volum e] in serum or plasma 29.5 text: 21 - 32 mmol/L CO2 29.5 21 - 32 MMOL/ L 03/25 9:[address] [facility] Not Available Not Available 12/11/2024 16:17:42 03/25/20 24 03/25/2024 Basic metab olic 1999 panel - Serum or Plasm a calcium [mass/volume ] in serum or plasma 8.9 text: 8.5 - 10.1 mg/dL CALCI UM S/P/B 8.9 8.5 - 10.1 MG/DL 03/25 9:[address] [facility] Not Available Not Available 12/11/2024 16:17:42 03/25/20 24 03/25/2024 Basic metab olic 1999 panel - Serum or Plasm a anion gap in serum or plasma by calculation 3.5 text: 5 - 15 mmol/L low ANION GAP 3.5 (L) 5 - 15 MMOL/ L 03/25 9:[address] [facility] Not Available Not Available 12/11/2024 16:17:42 03/25/20 24 03/25/2024 Basic metab olic 1999 panel - Serum or Plasm a urea nitrogen/cre atinine [mass ratio] in serum or plasma 20.6 low: 6high: 26 BUN CREAT ININE RATIO 20.6 6 - 26 03/25 9:[address] [facility] Not Available Not Available 12/11/2024 16:17:42 03/25/20 24 03/25/2024 Basic metab olic 2000 panel - Serum or Plasm a glomerular filtration rate [volume rate/area] in serum, plasma or blood by creatinine-b ased formula (CKD-epi 2020)/1.73 sq M text: >90 mL/min /1.73 M2 GFR ESTIM ATE >90 >90 ML/OK N/1.7 3 M2 03/25 9:[address] [facility] Not Available Not Available 12/11/2024 [...] - 99 mg/dL 03/25 6:[address] [facility] Not Available Not Available 12/11/2024 [...] - 99 mg/dL 03/26 8:[address] [facility] Not Available Not Available 12/11/2024 [...] - 99 mg/dL 03/26 4:[address] [facility] Not Available Not Available 12/11/2024 [...] - 99 mg/dL 03/26 11:[address] [facility] Not Available Not Available 12/11/2024 [...] - 99 mg/dL 03/26 11:[address] [facility] Not Available Not Available 12/11/2024 16:17:43 03/26/20 24 03/26/2024 Gluco se [Mass /volu me] in Blood by Autom ated test strip glucose [mass/volume ] in blood by automated test strip 40 mg/dL low: 70mg/d Lhigh: 99mg/d L low GLUCO SE POC 40 (L) 70 - 99 mg/dL 03/26 11:09 AM CDT [facility] Not Available Not Available [...] - 8.2 G/DL 03/26 1:11 PM CDT [facility] Not Available Not Available 12/11/2024 16:17:43 03/26/20 24 03/26/2024 Hepat ic funct ion 2000 panel - Serum or Plasm a albumin [mass/volume ] in serum or plasma 2.8 text: 3.4 - 5.0 g/dL low ALBUM IN S/P/B 2.8 (L) 3.4 - 5.0 G/DL 03/26 1:11 PM CDT [facility] Not Available Not Available 12/11/2024 16:17:43 03/26/20 24 03/26/2024 Hepat ic funct ion 2000 panel - Serum or Plasm a bilirubin.to kelly [mass/volume ] in serum or plasma 0.3 text: 0.2 - 1.2 mg/dL BILIR UBIN TOTAL S/P/B 0.3 0.2 - 1.2 MG/DL 03/26 1:11 PM [facility]T [facility] Not Available Not Available 12/11/2024 16:17:43 03/26/20 24 03/26/2024 Hepat ic funct ion 2000 panel - Serum or Plasm a bilirubin.co njugated [mass/volume ] in serum or plasma 0.1 text: 0.0 - 0.20 mg/dL BILIR UBIN DIREC T S/P/B 0.1 0.0 - 0.20 MG/DL 03/26 1:[address] [facility] Not Available Not Available 12/11/2024 16:17:43 03/26/20 24 03/26/2024 Hepat ic funct ion 1999 panel - Serum or Plasm a bilirubin.in direct [mass/volume ] in serum or plasma 0.2 text: 0.0 - 0.9 mg/dL BILIR UBIN INDIR ECT S/P/B 0.2 0.0 - 0.9 MG/DL 03/26 1:[address] [facility] Not Available Not Available 12/11/2024 16:17:43 03/26/20 24 03/26/2024 Hepat ic funct ion 1999 panel - Serum or Plasm a alkaline phosphatase [enzymatic activity/vol ume] in serum or plasma 102 U/L low: 50U/Lh igh: 136U/L ALKAL INE PHOSP HATAS E S/P/B 102 50 - 136 U/L 03/26 1:[address] [facility] Not Available Not Available 12/11/2024 16:17:43 03/26/20 24 03/26/2024 Hepat ic funct ion 1999 panel - Serum or Plasm a aspartate aminotransfe rase [enzymatic activity/vol ume] in serum or plasma 18 U/L low: 15U/Lh igh: 37U/L AST 18 15 - 37 U/L 03/26 1:[address] [facility] Not Available Not Available 12/11/2024 16:17:43 03/26/20 24 03/26/2024 Hepat ic funct ion 1999 panel - Serum or Plasm a alanine aminotransfe rase [enzymatic activity/vol ume] in serum or plasma 31 U/L low: 16U/Lh igh: 60U/L ALT 31 16 - 60 U/L 03/26 1:11 PM CDT [facility] Not Available Not Available 12/11/2024 16:17:43 03/26/20 24 03/26/2024 Hepat ic funct ion 1999 panel - Serum or Plasm a albumin/glob ulin [mass ratio] in serum or plasma 0.9 text: 1.0 - 2.0 ratio low A/G RATIO 0.9 (L) 1.0 - 2.0 RATIO 03/26 1:[address] [facility] Not Available Not Available 12/11/2024 [...] 70 - 99 MG/DL 03/26 10:[address] [facility] Not Available Not Available 12/11/2024 16:17:43 03/26/20 24 03/26/2024 Basic metab olic 2000 panel - Serum or Plasm a urea nitrogen [mass/volume ] in serum or plasma 14 text: 7 - 18 mg/dL BUN 14 7 - 18 MG/DL 03/26 10:[address] [facility] Not Available Not Available 12/11/2024 16:17:43 03/26/20 24 03/26/2024 Basic metab olic 2000 panel - Serum or Plasm a creatinine [mass/volume ] in serum or plasma 0.8 text: 0.7 - 1.3 mg/dL CREAT ININE S/P/B 0.80 0.7 - 1.3 MG/DL 03/26 10:[address] [facility] Not Available Not Available 12/11/2024 16:17:43 03/26/20 24 03/26/2024 Basic metab olic 2000 panel - Serum or Plasm a sodium [moles/volum e] in serum or plasma 137 text: 136 - 145 mmol/L SODIU M S/P/B 137 136 - 145 MMOL/ L 03/26 10:[address] [facility] Not Available Not Available 12/11/2024 16:17:43 03/26/20 24 03/26/2024 Basic metab olic 2000 panel - Serum or Plasm a potassium [moles/volum e] in serum or plasma 4 text: 3.5 - 5.1 mmol/L POTAS SIUM S/P/B 4.0 3.5 - 5.1 MMOL/ L 03/26 10:[address] [facility] Not Available Not Available 12/11/2024 16:17:43 03/26/20 24 03/26/2024 Basic metab olic 2000 panel - Serum or Plasm a chloride [moles/volum e] in serum or plasma 105 text: 100 - 108 mmol/L CHLOR SYLVIA S/P/B 105 100 - 108 MMOL/ L 03/26 10:[address] [facility] Not Available Not Available 12/11/2024 16:17:43 03/26/20 24 03/26/2024 Basic metab olic 2000 panel - Serum or Plasm a carbon dioxide, total [moles/volum e] in serum or plasma 29.3 text: 21 - 32 mmol/L CO2 29.3 21 - 32 MMOL/ L 03/26 10:[address] [facility] Not Available Not Available 12/11/2024 16:17:43 03/26/20 24 03/26/2024 Basic metab olic 2000 panel - Serum or Plasm a calcium [mass/volume ] in serum or plasma 9.1 text: 8.5 - 10.1 mg/dL CALCI UM S/P/B 9.1 8.5 - 10.1 MG/DL 03/26 10:[address] [facility] Not Available Not Available 12/11/2024 16:17:43 03/26/20 24 03/26/2024 Basic metab olic 2000 panel - Serum or Plasm a anion gap in serum or plasma by calculation 2.7 text: 5 - 15 mmol/L low ANION GAP 2.7 (L) 5 - 15 MMOL/ L 03/26 10:[address] [facility] Not Available Not Available 12/11/2024 16:17:43 03/26/20 24 03/26/2024 Basic metab olic 2000 panel - Serum or Plasm a urea nitrogen/cre atinine [mass ratio] in serum or plasma 17.5 low: 6high: 26 BUN CREAT ININE RATIO 17.5 6 - 26 03/26 10:[address] [facility] Not Available Not Available 12/11/2024 16:17:43 03/26/20 24 03/26/2024 Basic metab olic 2000 panel - Serum or Plasm a glomerular filtration rate [volume rate/area] in serum, plasma or blood by creatinine-b ased formula (CKD-epi 2020)/1.73 sq M text: >90 mL/min /1.73 M2 GFR ESTIM ATE >90 >90 ML/OK N/1.7 3 M2 03/26 10:[address] [facility] Not Available Not Available 12/11/2024 [...] 11.0 x10'3 /uL 03/26 8:[address] [facility] Not Available Not Available 12/11/2024 16:17:43 03/26/20 24 03/26/2024 CBC W Auto Diffe renti al panel - Blood erythrocytes [#/volume] in blood by automated count 4.2 text: 4.70 - 6.10 x10'6/ uL low RBC 4.20 (L) 4.70 - 6.10 x10'6 /uL 03/26 8:[address] [facility] Not Available Not Available 12/11/2024 16:17:43 03/26/20 24 03/26/2024 CBC W Auto Diffe renti al panel - Blood hemoglobin [mass/volume ] in blood 9.7 text: 14.0 - 18.0 g/dL low HGB 9.7 (L) 14.0 - 18.0 G/DL 03/26 8:[address] [facility] Not Available Not Available 12/11/2024 16:17:43 03/26/20 24 03/26/2024 CBC W Auto Diffe rose al panel - Blood hematocrit [volume fraction] of blood by calculation 33.2 % low: 43%hig h: 54% low HCT 33.2 (L) 43.0 - 54.0 % 03/26 8:[address] [facility] Not Available Not Available 12/11/2024 16:17:43 03/26/20 24 03/26/2024 CBC W Auto Diffe marisolti al panel - Blood MCV [entitic mean volume] in red blood cells 79 text: 80.0 - 94.0 fL low MCV 79.0 (L) 80.0 - 94.0 FL 03/26 8:[address] [facility] Not Available Not Available 12/11/2024 16:17:43 03/26/20 24 03/26/2024 CBC W Auto Diffe renti al panel - Blood MCH [entitic mass] 23.1 pg low: 27pghi gh: 31pg low MCH 23.1 (L) 27.0 - 31.0 PG 03/26 8:[address] [facility] Not Available Not Available 12/11/2024 16:17:43 03/26/20 24 03/26/2024 CBC W Auto Diffe renti al panel - Blood MCHC [entitic mass/volume] in red blood cells 29.2 text: 32.0 - 36.0 g/dL low MCHC 29.2 (L) 32.0 - 36.0 G/DL 03/26 8:[address] [facility] Not Available Not Available 12/11/2024 16:17:43 03/26/20 24 03/26/2024 CBC W Auto Diffe renti al panel - Blood RDW 23.2 % low: 11.5%h igh: 14.5% high RDW 23.2 (H) 11.5 - 14.5 % 03/26 8:[address] [facility] Not Available Not Available 12/11/2024 16:17:43 03/26/20 24 03/26/2024 CBC W Auto Diffe renti al panel - Blood platelets [#/volume] in blood 268 text: 130 - 400 x10'3/ uL PLT 268 130 - 400 x10'3 /uL 03/26 8:[address] [facility] Not Available Not Available 12/11/2024 16:17:43 03/26/20 24 03/26/2024 CBC W Auto Diffe renti al panel - Blood platelet [entitic mean volume] in blood 10.7 text: 9.3 - 12.2 fL MPV 10.7 9.3 - 12.2 FL 03/26 8:[address] [facility] Not Available Not Available 12/11/2024 16:17:43 03/26/20 24 03/26/2024 CBC W Auto Diffe renti al panel - Blood differential cell count method - blood AUTOMA ANIBAL DIFFER ENTIAL DIFFE RENTI AL TYPE AUTOM ATED DIFFE RENTI AL 03/26 8:[address] [facility] Not Available Not Available 12/11/2024 16:17:43 03/26/20 24 03/26/2024 CBC W Auto Diffe renti al panel - Blood neutrophils/ leukocytes in blood by automated count 64.6 % NEUTR OPHIL S % 64.6 % 03/26 8:[address] [facility] Not Available Not Available 12/11/2024 16:17:43 03/26/20 24 03/26/2024 CBC W Auto Diffe renti al panel - Blood lymphocytes/ leukocytes in blood by automated count 16.5 % LYMPH OCYTE S % 16.5 % 03/26 8:[address] [facility] Not Available Not Available 12/11/2024 16:17:43 03/26/20 24 03/26/2024 CBC W Auto Diffe renti al panel - Blood monocytes/le ukocytes in blood by automated count 15.8 % MONOC YTES % 15.8 % 03/26 8:[address] [facility] Not Available Not Available 12/11/2024 16:17:43 03/26/20 24 03/26/2024 CBC W Auto Diffe renti al panel - Blood eosinophils/ leukocytes in blood by automated count 0.6 % EOSIN OPHIL S 0.6 % 03/26 8:[address] [facility] Not Available Not Available 12/11/2024 16:17:43 03/26/20 24 03/26/2024 CBC W Auto Diffe renti al panel - Blood basophils/le ukocytes in blood by automated count 0.4 % BASOP HILS 0.4 % 03/26 8:[address] [facility] Not Available Not Available 12/11/2024 16:17:43 03/26/20 24 03/26/2024 CBC W Auto Diffe renti al panel - Blood immature granulocytes /leukocytes in blood by automated count 2.1 % IMMAT URE GRANS % 2.1 % 03/26 8:[address] [facility] Not Available Not Available 12/11/2024 16:17:43 03/26/20 24 03/26/2024 CBC W Auto Diffe renti al panel - Blood neutrophils [#/volume] in blood 4.66 text: 1.80 - 7.70 x10'3/ uL ABS. NEUTR OPHIL S 4.66 1.80 - 7.70 x10'3 /uL 03/26 8:[address] [facility] Not Available Not Available 12/11/2024 16:17:43 03/26/20 24 03/26/2024 CBC W Auto Diffe renti al panel - Blood lymphocytes [#/volume] in blood 1.19 text: 1.00 - 4.80 x10'3/ uL ABS. LYMPH OCYTE S 1.19 1.00 - 4.80 x10'3 /uL 03/26 8:[address] [facility] Not Available Not Available 12/11/2024 16:17:43 03/26/20 24 03/26/2024 CBC W Auto Diffe renti al panel - Blood monocytes [#/volume] in blood 1.14 text: 0.30 - 0.82 x10'3/ uL high ABS. MONOC YTES 1.14 (H) 0.30 - 0.82 x10'3 /uL 03/26 8:[address] [facility] Not Available Not Available 12/11/2024 16:17:43 03/26/20 24 03/26/2024 CBC W Auto Diffe renti al panel - Blood eosinophils [#/volume] in blood 0.04 text: 0.04 - 0.54 x10'3/ uL ABS. EOSIN OPHIL S 0.04 0.04 - 0.54 x10'3 /uL 03/26 8:[address] [facility] Not Available Not Available 12/11/2024 16:17:43 03/26/20 24 03/26/2024 CBC W Auto Diffe renti al panel - Blood basophils [#/volume] in blood 0.03 text: 0.01 - 0.08 x10'3/ uL ABS. BASOP HILS 0.03 0.01 - 0.08 x10'3 /uL 03/26 8:53 AM CDT [facility] Not Available Not Available 12/11/2024 16:17:43 03/26/20 24 03/26/2024 CBC W Auto Diffe renti al panel - Blood immature granulocytes [#/volume] in blood 0.15 text: 0.00 - 0.49 x10'3/ uL ABS. IMMAT URE GRANU LOCYT ES 0.15 0.00 - 0.49 x10'3 /uL 03/26 8:53 AM CDT [facility] Not Available Not Available 12/11/2024 16:17:43 03/26/20 24 03/26/2024 CBC W Auto Diffe renti al panel - Blood erythrocytes [morphology] in blood by automated count SLIDE REVIEW ED RBC MORPH OLOGY SLIDE REVIE WED 03/26 8:53 AM CDT [facility] Not Available Not Available 12/11/2024 16:17:43 03/26/20 24 03/26/2024 CBC W Auto Diffe renti al panel - Blood anisocytosis [presence] in blood 2+ ANISO 2+ 03/26 8:53 AM CDT [facility] Not Available Not Available 12/11/2024 16:17:43 03/26/20 24 03/26/2024 CBC W Auto Diffe renti al panel - Blood polychromasi a [presence] in blood by light microscopy 2+ POLY 2+ 03/26 8:53 AM CDT [facility] Not Available Not Available 12/11/2024 16:17:43 03/26/20 24 03/26/2024 CBC W Auto Diffe renti al panel - Blood nimisah 1+ NIMISHA 1+ 03/26 8:53 AM CDT [facility] Not Available Not Available 12/11/2024 16:17:43 03/26/20 24 03/26/2024 CBC W Auto Diffe renti al panel - Blood acanthocytes [presence] in blood by light microscopy 1+ ACANT HOCYT ES 1+ 03/26 8:53 AM CDT [facility] Not Available Not Available 12/11/2024 16:17:43 03/26/20 24 03/26/2024 CBC W Auto Diffe renti al panel - Blood elliptocytes 1+ ELLIP TOCYT ES 1+ 03/26 8:53 AM CDT [facility] Not Available Not Available 12/11/2024 16:17:43 03/26/20 24 03/26/2024 CBC W Auto Diffe renti al panel - Blood platelets [#/volume] in blood by automated count ADEQUA TE PLT EST. ADEQU ATE 03/26 8:53 AM CDT [facility] Not Available Not Available 12/11/2024 [...] - 99 MG/DL 03/26 8:37 AM CDT [facility] Not Available Not Available 12/11/2024 16:17:43 03/26/20 24 03/26/2024 Basic metab olic 2000 panel - Serum or Plasm a urea nitrogen [mass/volume ] in serum or plasma 15 text: 7 - 18 mg/dL BUN 15 7 - 18 MG/DL 03/26 8:37 AM CDT [facility] Not Available Not Available 12/11/2024 16:17:43 03/26/20 24 03/26/2024 Basic metab olic 1999 panel - Serum or Plasm a creatinine [mass/volume ] in serum or plasma 0.78 text: 0.7 - 1.3 mg/dL CREAT ININE S/P/B 0.78 0.7 - 1.3 MG/DL 03/26 8:[address] [facility] Not Available Not Available 12/11/2024 16:17:43 03/26/20 24 03/26/2024 Basic metab olic 1999 panel - Serum or Plasm a sodium [moles/volum e] in serum or plasma 137 text: 136 - 145 mmol/L SODIU M S/P/B 137 136 - 145 MMOL/ L 03/26 8:[address] [facility] Not Available Not Available 12/11/2024 16:17:43 03/26/20 24 03/26/2024 Basic metab olic 1999 panel - Serum or Plasm a potassium [moles/volum e] in serum or plasma 5.3 text: 3.5 - 5.1 mmol/L high POTAS SIUM S/P/B 5.3 (H) 3.5 - 5.1 MMOL/ L 03/26 8:[address] [facility] Not Available Not Available 12/11/2024 16:17:43 03/26/20 24 03/26/2024 Basic metab olic 1999 panel - Serum or Plasm a chloride [moles/volum e] in serum or plasma 106 text: 100 - 108 mmol/L CHLOR SYLVIA S/P/B 106 100 - 108 MMOL/ L 03/26 8:[address] [facility] Not Available Not Available 12/11/2024 16:17:43 03/26/20 24 03/26/2024 Basic metab olic 2000 panel - Serum or Plasm a carbon dioxide, total [moles/volum e] in serum or plasma 25.9 text: 21 - 32 mmol/L CO2 25.9 21 - 32 MMOL/ L 03/26 8:[address] [facility] Not Available Not Available 12/11/2024 16:17:43 03/26/20 24 03/26/2024 Basic metab olic 2000 panel - Serum or Plasm a calcium [mass/volume ] in serum or plasma 8.9 text: 8.5 - 10.1 mg/dL CALCI UM S/P/B 8.9 8.5 - 10.1 MG/DL 03/26 8:[address] [facility] Not Available Not Available 12/11/2024 16:17:43 03/26/20 24 03/26/2024 Basic metab olic 2000 panel - Serum or Plasm a anion gap in serum or plasma by calculation 5.1 text: 5 - 15 mmol/L ANION GAP 5.1 5 - 15 MMOL/ L 03/26 8:[address] [facility] Not Available Not Available 12/11/2024 16:17:43 03/26/20 24 03/26/2024 Basic metab olic 2000 panel - Serum or Plasm a urea nitrogen/cre atinine [mass ratio] in serum or plasma 19.2 low: 6high: 26 BUN CREAT ININE RATIO 19.2 6 - 26 03/26 8:[address] [facility] Not Available Not Available 12/11/2024 16:17:43 03/26/20 24 03/26/2024 Basic metab olic 2000 panel - Serum or Plasm a glomerular filtration rate [volume rate/area] in serum, plasma or blood by creatinine-b ased formula (CKD-epi 2020)/1.73 sq M text: >90 mL/min /1.73 M2 GFR ESTIM ATE >90 >90 ML/OK N/1.7 3 M2 03/26 8:[address] [facility] Not Available Not Available 12/11/2024 [...] - 99 mg/dL 03/26 6:[address] [facility] Not Available Not Available 12/11/2024 16:17:43 03/26/20 24 03/26/2024 Maryan ia [Mole s/vol ume] in Plasm a ammonia [moles/volum e] in plasma 52 text: 11 - 32 umol/L high MARYAN IA 52 (H) 11 - 32 UMOL/ L 03/26 12:[address] [facility] Not Available Not Available 12/11/2024 [...] - 1,320 PG/ML 03/26 12:[address] [facility] Not Available Not Available 12/11/2024 [...] Available Not Available 12/11/2024 16:17:43 03/26/20 24 03/31/2024 Miguel ine [Mole s/vol ume] [...] - 99 MG/DL 03/26 1:[address] [facility] Not Available Not Available 12/11/2024 16:17:42 03/26/20 24 03/26/2024 Compr ehens joseph metab olic 1999 panel - Serum or Plasm a urea nitrogen [mass/volume ] in serum or plasma 15 text: 7 - 18 mg/dL BUN 15 7 - 18 MG/DL 03/26 1:[address] [facility] Not Available Not Available 12/11/2024 16:17:42 03/26/20 24 03/26/2024 Compr ehens joseph metab olic 1999 panel - Serum or Plasm a creatinine [mass/volume ] in serum or plasma 0.8 text: 0.7 - 1.3 mg/dL CREAT ININE S/P/B 0.80 0.7 - 1.3 MG/DL 03/26 1:[address] [facility] Not Available Not Available 12/11/2024 16:17:42 03/26/20 24 03/26/2024 Compr ehens joseph metab olic 2000 panel - Serum or Plasm a sodium [moles/volum e] in serum or plasma 137 text: 136 - 145 mmol/L SODIU M S/P/B 137 136 - 145 MMOL/ L 03/26 1:[address] [facility] Not Available Not Available 12/11/2024 16:17:42 03/26/20 24 03/26/2024 Compr ehens joseph metab olic 1999 panel - Serum or Plasm a potassium [moles/volum e] in serum or plasma 4.1 text: 3.5 - 5.1 mmol/L POTAS SIUM S/P/B 4.1 3.5 - 5.1 MMOL/ L 03/26 1:[address] [facility] Not Available Not Available 12/11/2024 16:17:42 03/26/20 24 03/26/2024 Compr ehens joseph metab olic 1999 panel - Serum or Plasm a chloride [moles/volum e] in serum or plasma 104 text: 100 - 108 mmol/L CHLOR SYLVIA S/P/B 104 100 - 108 MMOL/ L 03/26 1:[address] [facility] Not Available Not Available 12/11/2024 16:17:42 03/26/20 24 03/26/2024 Compr ehens joseph metab olic 1999 panel - Serum or Plasm a carbon dioxide, total [moles/volum e] in serum or plasma 26.7 text: 21 - 32 mmol/L CO2 26.7 21 - 32 MMOL/ L 03/26 1:[address] [facility] Not Available Not Available 12/11/2024 16:17:42 03/26/20 24 03/26/2024 Compr ehens joseph metab olic 2000 panel - Serum or Plasm a calcium [mass/volume ] in serum or plasma 8.4 text: 8.5 - 10.1 mg/dL low CALCI UM S/P/B 8.4 (L) 8.5 - 10.1 MG/DL 03/26 1:[address] [facility] Not Available Not Available 12/11/2024 16:17:42 03/26/20 24 03/26/2024 Compr ehens joseph metab olic 2000 panel - Serum or Plasm a bilirubin.to kelly [mass/volume ] in serum or plasma 0.7 text: 0.2 - 1.2 mg/dL BILIR UBIN TOTAL S/P/B 0.7 0.2 - 1.2 MG/DL 03/26 1:00 AM CDT [facility] Not Available Not Available 12/11/2024 16:17:42 03/26/20 24 03/26/2024 Compr ens joseph metab olic 1999 panel - Serum or Plasm a protein [mass/volume ] in serum or plasma 5.6 text: 6.4 - 8.2 g/dL low TOTAL PROTE IN S/P/B 5.6 (L) 6.4 - 8.2 G/DL 03/26 1:00 AM CDT [facility] Not Available Not Available 12/11/2024 16:17:42 03/26/20 24 03/26/2024 Compr ens joseph metab olic 1999 panel - Serum or Plasm a albumin [mass/volume ] in serum or plasma 2.6 text: 3.4 - 5.0 g/dL low ALBUM IN S/P/B 2.6 (L) 3.4 - 5.0 G/DL 03/26 1:00 AM CDT [facility] Not Available Not Available 12/11/2024 16:17:42 03/26/20 24 03/26/2024 Compr ehens joseph metab olic 2000 panel - Serum or Plasm a aspartate aminotransfe rase [enzymatic activity/vol ume] in serum or plasma 19 U/L low: 15U/Lh igh: 37U/L AST 19 15 - 37 U/L 03/26 1:00 AM [facility] Not Available Not Available 12/11/2024 16:17:42 03/26/20 24 03/26/2024 Compr ehens joseph metab olic 2000 panel - Serum or Plasm a alanine aminotransfe rase [enzymatic activity/vol ume] in serum or plasma 31 U/L low: 16U/Lh igh: 60U/L ALT 31 16 - 60 U/L 03/26 1:[address] [facility] Not Available Not Available 12/11/2024 16:17:42 03/26/20 24 03/26/2024 Compr ehens joseph metab olic 2000 panel - Serum or Plasm a alkaline phosphatase [enzymatic activity/vol ume] in serum or plasma 104 U/L low: 50U/Lh igh: 136U/L ALKAL INE PHOSP HATAS E S/P/B 104 50 - 136 U/L 03/26 1:[address] [facility] Not Available Not Available 12/11/2024 16:17:42 03/26/20 24 03/26/2024 Compr ehens joseph metab olic 2000 panel - Serum or Plasm a anion gap in serum or plasma by calculation 6.3 text: 5 - 15 mmol/L ANION GAP 6.3 5 - 15 MMOL/ L 03/26 1:[address] [facility] Not Available Not Available 12/11/2024 16:17:42 03/26/20 24 03/26/2024 Compr ehens joseph metab olic 2000 panel - Serum or Plasm a urea nitrogen/cre atinine [mass ratio] in serum or plasma 18.7 low: 6high: 26 BUN CREAT ININE RATIO 18.7 6 - 26 03/26 1:[address] [facility] Not Available Not Available 12/11/2024 16:17:42 03/26/20 24 03/26/2024 Compr ehens joseph metab olic 2000 panel - Serum or Plasm a albumin/glob ulin [mass ratio] in serum or plasma 0.9 text: 1.0 - 2.0 ratio low A/G RATIO 0.9 (L) 1.0 - 2.0 RATIO 03/26 1:[address] [facility] Not Available Not Available 12/11/2024 16:17:42 03/26/20 03/26/2024 Compr ehens joseph metab olic 2000 panel - Serum or Plasm a glomerular filtration rate [volume rate/area] in serum, plasma or blood by creatinine-b ased formula (CKD-epi 2020)/1.73 sq M text: >90 mL/min /1.73 M2 GFR ESTIM ATE >90 >90 ML/OK N/1.7 3 M2 03/26 1:00 AM CDT [facility] Not Available Not Available 12/11/2024 16:17:42 03/26/2003/26/2024 Compr ehens joseph metab olic 2000 panel - Serum or Plasm a interpretati on and review of laboratory results Abnorm al Not Available Not Available 16:17:42 03/26/2003/26/2024 CBC W Auto Diffe renti al panel - Blood leukocytes [#/volume] in blood by automated count 5.53 text: 4.5 - 11.0 x10'3/ uL WBC 5.53 4.5 - 11.0 x10'3 /uL 03/26 12:10 AM CDT [facility] Not Available Not Available 12/11/2024 16:17:42 03/26/2003/26/2024 CBC W Auto Diffe renti al panel - Blood erythrocytes [#/volume] in blood by automated count 3.91 text: 4.70 - 6.10 x10'6/ uL low RBC 3.91 (L) 4.70 - 6.10 x10'6 /uL 03/26 12:10 AM CDT [facility] Not Available Not Available 12/11/2024 16:17:42 03/26/20 24 03/26/2024 CBC W Auto Diffe renti al panel - Blood hemoglobin [mass/volume ] in blood 9.1 text: 14.0 - 18.0 g/dL low HGB 9.1 (L) 14.0 - 18.0 G/DL 03/26 12:10 AM CDT [facility] Not Available Not Available 12/11/2024 16:17:42 03/26/20 24 03/26/2024 CBC W Auto Diffe renti al panel - Blood hematocrit [volume fraction] of blood by calculation 31.2 % low: 43%hig h: 54% low HCT 31.2 (L) 43.0 - 54.0 % 03/26 12:[address] [facility] Not Available Not Available 12/11/2024 16:17:42 03/26/20 24 03/26/2024 CBC W Auto Diffe renti al panel - Blood MCV [entitic mean volume] in red blood cells 79.8 text: 80.0 - 94.0 fL low MCV 79.8 (L) 80.0 - 94.0 FL 03/26 12:[address] [facility] Not Available Not Available 12/11/2024 16:17:42 03/26/20 24 03/26/2024 CBC W Auto Diffe renti al panel - Blood MCH [entitic mass] 23.3 pg low: 27pghi gh: 31pg low MCH 23.3 (L) 27.0 - 31.0 PG 03/26 12:[address] [facility] Not Available Not Available 12/11/2024 16:17:42 03/26/20 24 03/26/2024 CBC W Auto Diffe renti al panel - Blood MCHC [entitic mass/volume] in red blood cells 29.2 text: 32.0 - 36.0 g/dL low MCHC 29.2 (L) 32.0 - 36.0 G/DL 03/26 12:[address] [facility] Not Available Not Available 12/11/2024 16:17:42 03/26/20 24 03/26/2024 CBC W Auto Diffe renti al panel - Blood RDW 22.7 % low: 11.5%h igh: 14.5% high RDW 22.7 (H) 11.5 - 14.5 % 03/26 12:[address] [facility] Not Available Not Available 12/11/2024 16:17:42 03/26/20 24 03/26/2024 CBC W Auto Diffe renti al panel - Blood platelets [#/volume] in blood 278 text: 130 - 400 x10'3/ uL PLT 278 130 - 400 x10'3 /uL 03/26 12:[address] [facility] Not Available Not Available 12/11/2024 16:17:42 03/26/20 24 03/26/2024 CBC W Auto Diffe renti al panel - Blood platelet [entitic mean volume] in blood 10.6 text: 9.3 - 12.2 fL MPV 10.6 9.3 - 12.2 FL 03/26 12:[address] [facility] Not Available Not Available 12/11/2024 16:17:42 03/26/20 24 03/26/2024 CBC W Auto Diffe renti al panel - Blood differential cell count method - blood AUTOMA ANIBAL DIFFER ENTIAL DIFFE RENTI AL TYPE AUTOM ATED DIFFE RENTI AL 03/26 12:[address] [facility] Not Available Not Available 12/11/2024 16:17:42 03/26/20 24 03/26/2024 CBC W Auto Diffe renti al panel - Blood neutrophils/ leukocytes in blood by automated count 72 % NEUTR OPHIL S % 72.0 % 03/26 12:[address] [facility] Not Available Not Available 12/11/2024 16:17:42 03/26/20 24 03/26/2024 CBC W Auto Diffe renti al panel - Blood lymphocytes/ leukocytes in blood by automated count 14.8 % LYMPH OCYTE S % 14.8 % 03/26 12:[address] [facility] Not Available Not Available 12/11/2024 16:17:42 03/26/20 24 03/26/2024 CBC W Auto Diffe renti al panel - Blood monocytes/le ukocytes in blood by automated count 11.6 % MONOC YTES % 11.6 % 03/26 12:[address] [facility] Not Available Not Available 12/11/2024 16:17:42 03/26/20 24 03/26/2024 CBC W Auto Diffe renti al panel - Blood eosinophils/ leukocytes in blood by automated count 0.7 % EOSIN OPHIL S 0.7 % 03/26 12:[address] [facility] Not Available Not Available 12/11/2024 16:17:42 03/26/20 24 03/26/2024 CBC W Auto Diffe renti al panel - Blood basophils/le ukocytes in blood by automated count 0.2 % BASOP HILS 0.2 % 03/26 12:[address] [facility] Not Available Not Available 12/11/2024 16:17:42 03/26/20 24 03/26/2024 CBC W Auto Diffe renti al panel - Blood immature granulocytes /leukocytes in blood by automated count 0.7 % IMMAT URE GRANS % 0.7 % 03/26 12:[address] [facility] Not Available Not Available 12/11/2024 16:17:42 03/26/20 24 03/26/2024 CBC W Auto Diffe renti al panel - Blood neutrophils [#/volume] in blood 3.98 text: 1.80 - 7.70 x10'3/ uL ABS. NEUTR OPHIL S 3.98 1.80 - 7.70 x10'3 /uL 03/26 12:[address] [facility] Not Available Not Available 12/11/2024 16:17:42 03/26/20 24 03/26/2024 CBC W Auto Diffe renti al panel - Blood lymphocytes [#/volume] in blood 0.82 text: 1.00 - 4.80 x10'3/ uL low ABS. LYMPH OCYTE S 0.82 (L) 1.00 - 4.80 x10'3 /uL 03/26 12:[address] [facility] Not Available Not Available 12/11/2024 16:17:42 03/26/20 24 03/26/2024 CBC W Auto Diffe renti al panel - Blood monocytes [#/volume] in blood 0.64 text: 0.30 - 0.82 x10'3/ uL ABS. MONOC YTES 0.64 0.30 - 0.82 x10'3 /uL 03/26 12:[address] [facility] Not Available Not Available 12/11/2024 16:17:42 03/26/20 24 03/26/2024 CBC W Auto Diffe renti al panel - Blood eosinophils [#/volume] in blood 0.04 text: 0.04 - 0.54 x10'3/ uL ABS. EOSIN OPHIL S 0.04 0.04 - 0.54 x10'3 /uL 03/26 12:[address] [facility] Not Available Not Available 12/11/2024 16:17:42 03/26/20 24 03/26/2024 CBC W Auto Diffe renti al panel - Blood basophils [#/volume] in blood 0.01 text: 0.01 - 0.08 x10'3/ uL ABS. BASOP HILS 0.01 0.01 - 0.08 x10'3 /uL 03/26 12:[address] [facility] Not Available Not Available 12/11/2024 16:17:42 03/26/20 24 03/26/2024 CBC W Auto Diffe renti al panel - Blood immature granulocytes [#/volume] in blood 0.04 text: 0.00 - 0.49 x10'3/ uL ABS. IMMAT URE GRANU LOCYT ES 0.04 0.00 - 0.49 x10'3 /uL 03/26 12:[address] [facility] Not Available Not Available 12/11/2024 16:17:42 03/26/20 24 03/26/2024 CBC W Auto Diffe renti al panel - Blood erythrocytes [morphology] in blood by automated count SLIDE REVIEW ED RBC MORPH OLOGY SLIDE REVIE WED 03/26 12:[address] [facility] Not Available Not Available 12/11/2024 16:17:42 03/26/20 24 03/26/2024 CBC W Auto Diffe renti al panel - Blood anisocytosis [presence] in blood 2+ ANISO 2+ 03/26 12:[address] [facility] Not Available Not Available 12/11/2024 16:17:42 03/26/20 24 03/26/2024 CBC W Auto Diffe renti al panel - Blood poikilocytos is [presence] in blood by automated count 1+ POIKL O 1+ 03/26 12:[address] [facility] Not Available Not Available 12/11/2024 16:17:42 03/26/20 24 03/26/2024 CBC W Auto Diffe renti al panel - Blood hypochromia [presence] in blood 1+ HYPOC HROMA JAZMYNE 1+ 03/26 12:[address] [facility] Not Available Not Available 12/11/2024 16:17:42 03/26/20 24 03/26/2024 CBC W Auto Diffe renti al panel - Blood polychromasi a [presence] in blood by light microscopy 1+ POLY 1+ 03/26 12:[address] [facility] Not Available Not Available 12/11/2024 16:17:42 03/26/20 24 03/26/2024 CBC W Auto Diffe renti al panel - Blood acanthocytes [presence] in blood by light microscopy 1+ ACANT HOCYT ES 1+ 03/26 12:[address] [facility] Not Available Not Available 12/11/2024 16:17:42 03/26/20 24 03/26/2024 CBC W Auto Diffe renti al panel - Blood platelets [#/volume] in blood by automated count ADEQUA TE PLT EST. ADEQU ATE 03/26 12:[address] [facility] Not Available Not Available 12/11/2024 [...] - 99 mg/dL 03/27 8:[address] [facility] Not Available Not Available 12/11/2024 [...] - 99 mg/dL 03/27 4:[address] [facility] Not Available Not Available 12/11/2024 [...] - 99 mg/dL 03/27 12:[address] [facility] Not Available Not Available 12/11/2024 [...] 11.0 x10'3 /uL 03/27 7:[address] [facility] Not Available Not Available 12/11/2024 16:17:44 03/27/20 24 03/27/2024 CBC W Auto Diffe renti al panel - Blood erythrocytes [#/volume] in blood by automated count 4.07 text: 4.70 - 6.10 x10'6/ uL low RBC 4.07 (L) 4.70 - 6.10 x10'6 /uL 03/27 7:[address] [facility] Not Available Not Available 12/11/2024 16:17:44 03/27/20 24 03/27/2024 CBC W Auto Diffe renti al panel - Blood hemoglobin [mass/volume ] in blood 9.2 text: 14.0 - 18.0 g/dL low HGB 9.2 (L) 14.0 - 18.0 G/DL 03/27 7:[address] [facility] Not Available Not Available 12/11/2024 16:17:44 03/27/20 24 03/27/2024 CBC W Auto Diffe renti al panel - Blood hematocrit [volume fraction] of blood by calculation 32.8 % low: 43%hig h: 54% low HCT 32.8 (L) 43.0 - 54.0 % 03/27 7:[address] [facility] Not Available Not Available 12/11/2024 16:17:44 03/27/20 24 03/27/2024 CBC W Auto Diffe renti al panel - Blood MCV [entitic mean volume] in red blood cells 80.6 text: 80.0 - 94.0 fL MCV 80.6 80.0 - 94.0 FL 03/27 7:[address] [facility] Not Available Not Available 12/11/2024 16:17:44 03/27/20 24 03/27/2024 CBC W Auto Diffe renti al panel - Blood MCH [entitic mass] 22.6 pg low: 27pghi gh: 31pg low MCH 22.6 (L) 27.0 - 31.0 PG 03/27 7:[address] [facility] Not Available Not Available 12/11/2024 16:17:44 03/27/20 24 03/27/2024 CBC W Auto Diffe renti al panel - Blood MCHC [entitic mass/volume] in red blood cells 28 text: 32.0 - 36.0 g/dL low MCHC 28.0 (L) 32.0 - 36.0 G/DL 03/27 7:[address] [facility] Not Available Not Available 12/11/2024 16:17:44 03/27/20 24 03/27/2024 CBC W Auto Diffe renti al panel - Blood RDW 23.7 % low: 11.5%h igh: 14.5% high RDW 23.7 (H) 11.5 - 14.5 % 03/27 7:[address] [facility] Not Available Not Available 12/11/2024 16:17:44 03/27/20 24 03/27/2024 CBC W Auto Diffe renti al panel - Blood platelets [#/volume] in blood 254 text: 130 - 400 x10'3/ uL PLT 254 130 - 400 x10'3 /uL 03/27 7:43 AM CDT [facility] Not Available Not Available 12/11/2024 16:17:44 03/27/20 24 03/27/2024 CBC W Auto Diffe renti al panel - Blood platelet [entitic mean volume] in blood 10.2 text: 9.3 - 12.2 fL MPV 10.2 9.3 - 12.2 FL 03/27 7:43 AM CDT [facility] Not Available Not Available 12/11/2024 16:17:44 03/27/20 24 03/27/2024 CBC W Auto Diffe renti al panel - Blood differential cell count method - blood MANUAL DIFFER ENTIAL DIFFE RENTI AL TYPE MANUA L DIFFE RENTI AL 03/27 8:18 AM CDT [facility] Not Available Not Available 12/11/2024 16:17:44 03/27/20 24 03/27/2024 CBC W Auto Diffe renti al panel - Blood segmented neutrophils/ leukocytes in blood by manual count 79 % SEG NEUTR OPHIL S 79 % 03/27 8:18 AM CDT [facility] Not Available Not Available 12/11/2024 16:17:44 03/27/20 24 03/27/2024 CBC W Auto Diffe renti al panel - Blood lymphocytes/ leukocytes in blood by manual count 12 % LYMPH OCYTE S 12 % 03/27 8:18 AM CDT [facility] Not Available Not Available 12/11/2024 16:17:44 03/27/20 24 03/27/2024 CBC W Auto Diffe renti al panel - Blood monocytes/le ukocytes in blood by manual count 7 % MONOC YTES 7 % 03/27 8:18 AM CDT [facility] Not Available Not Available 12/11/2024 16:17:44 03/27/20 24 03/27/2024 CBC W Auto Diffe renti al panel - Blood eosinophils/ leukocytes in blood by manual count 1 % EOSIN OPHIL S 1 % 03/27 8:[address] [facility] Not Available Not Available 12/11/2024 16:17:44 03/27/20 24 03/27/2024 CBC W Auto Diffe renti al panel - Blood basophils/le ukocytes in blood 1 % BASOP HILS 1 % 03/27 8:[address] [facility] Not Available Not Available 12/11/2024 16:17:44 03/27/20 24 03/27/2024 CBC W Auto Diffe renti al panel - Blood neutrophils [#/volume] in blood 4.31 text: 1.80 - 7.70 x10'3/ uL ABS. NEUTR OPHIL S 4.31 1.80 - 7.70 x10'3 /uL 03/27 8:[address] [facility] Not Available Not Available 12/11/2024 16:17:44 03/27/20 24 03/27/2024 CBC W Auto Diffe renti al panel - Blood lymphocytes [#/volume] in blood 0.65 text: 1.00 - 4.80 x10'3/ uL low ABS. LYMPH OCYTE S 0.65 (L) 1.00 - 4.80 x10'3 /uL 03/27 8:[address] [facility] Not Available Not Available 12/11/2024 16:17:44 03/27/20 24 03/27/2024 CBC W Auto Diffe renti al panel - Blood monocytes [#/volume] in blood 0.38 text: 0.30 - 0.82 x10'3/ uL ABS. MONOC YTES 0.38 0.30 - 0.82 x10'3 /uL 03/27 8:[address] [facility] Not Available Not Available 12/11/2024 16:17:44 03/27/20 24 03/27/2024 CBC W Auto Diffe renti al panel - Blood eosinophils [#/volume] in blood 0.05 text: 0.04 - 0.54 x10'3/ uL ABS. EOSIN OPHIL S 0.05 0.04 - 0.54 x10'3 /uL 03/27 8:18 AM CDT [facility] Not Available Not Available 12/11/2024 16:17:44 03/27/20 24 03/27/2024 CBC W Auto Diffe renti al panel - Blood basophils [#/volume] in blood 0.05 text: 0.01 - 0.08 x10'3/ uL ABS. BASOP HILS 0.05 0.01 - 0.08 x10'3 /uL 03/27 8:18 AM CDT [facility] Not Available Not Available 12/11/2024 16:17:44 03/27/20 24 03/27/2024 CBC W Auto Diffe renti al panel - Blood erythrocytes [morphology] in blood by automated count SLIDE REVIEW ED RBC MORPH OLOGY SLIDE REVIE WED 03/27 8:[address] [facility] Not Available Not Available 12/11/2024 16:17:44 03/27/20 24 03/27/2024 CBC W Auto Diffe renti al panel - Blood anisocytosis [presence] in blood 2+ ANISO 2+ 03/27 8:[address] [facility] Not Available Not Available 12/11/2024 16:17:44 03/27/20 24 03/27/2024 CBC W Auto Diffe renti al panel - Blood polychromasi a [presence] in blood by light microscopy 1+ POLY 1+ 03/27 8:18 AM CDT [facility] Not Available Not Available 12/11/2024 16:17:44 03/27/20 24 03/27/2024 CBC W Auto Diffe renti al panel - Blood nimisha 1+ NIMISHA 1+ 03/27 8:[address] [facility] Not Available Not Available 12/11/2024 16:17:44 03/27/20 24 03/27/2024 CBC W Auto Diffe renti al panel - Blood elliptocytes 1+ ELLIP TOCYT ES 1+ 03/27 8:[address] [facility] Not Available Not Available 12/11/2024 16:17:44 03/27/20 24 03/27/2024 CBC W Auto Diffe renti al panel - Blood platelets [#/volume] in blood by automated count ADEQUA TE PLT EST. ADEQU ATE 03/27 8:[address] [facility] Not Available Not Available 12/11/2024 [...] 70 - 99 MG/DL 03/27 8:[address] [facility] Not Available Not Available 12/11/2024 16:17:44 03/27/20 24 03/27/2024 Basic metab olic 2000 panel - Serum or Plasm a urea nitrogen [mass/volume ] in serum or plasma 18 text: 7 - 18 mg/dL BUN 18 7 - 18 MG/DL 03/27 8:[address] [facility] Not Available Not Available 12/11/2024 16:17:44 03/27/20 24 03/27/2024 Basic metab olic 2000 panel - Serum or Plasm a creatinine [mass/volume ] in serum or plasma 0.8 text: 0.7 - 1.3 mg/dL CREAT ININE S/P/B 0.80 0.7 - 1.3 MG/DL 03/27 8:[address] [facility] Not Available Not Available 12/11/2024 16:17:44 03/27/20 24 03/27/2024 Basic metab olic 2000 panel - Serum or Plasm a sodium [moles/volum e] in serum or plasma 137 text: 136 - 145 mmol/L SODIU M S/P/B 137 136 - 145 MMOL/ L 03/27 8:[address] [facility] Not Available Not Available 12/11/2024 16:17:44 03/27/20 24 03/27/2024 Basic metab olic 2000 panel - Serum or Plasm a potassium [moles/volum e] in serum or plasma 4.1 text: 3.5 - 5.1 mmol/L POTAS SIUM S/P/B 4.1 3.5 - 5.1 MMOL/ L 03/27 8:[address] [facility] Not Available Not Available 12/11/2024 16:17:44 03/27/20 24 03/27/2024 Basic metab olic 2000 panel - Serum or Plasm a chloride [moles/volum e] in serum or plasma 106 text: 100 - 108 mmol/L CHLOR SYLVIA S/P/B 106 100 - 108 MMOL/ L 03/27 8:[address] [facility] Not Available Not Available 12/11/2024 16:17:44 03/27/20 24 03/27/2024 Basic metab olic 2000 panel - Serum or Plasm a carbon dioxide, total [moles/volum e] in serum or plasma 29.3 text: 21 - 32 mmol/L CO2 29.3 21 - 32 MMOL/ L 03/27 8:[address] [facility] Not Available Not Available 12/11/2024 16:17:44 03/27/20 24 03/27/2024 Basic metab olic 2000 panel - Serum or Plasm a calcium [mass/volume ] in serum or plasma 9.1 text: 8.5 - 10.1 mg/dL CALCI UM S/P/B 9.1 8.5 - 10.1 MG/DL 03/27 8:[address] [facility] Not Available Not Available 12/11/2024 16:17:44 03/27/20 24 03/27/2024 Basic metab olic 2000 panel - Serum or Plasm a anion gap in serum or plasma by calculation 1.7 text: 5 - 15 mmol/L low ANION GAP 1.7 (L) 5 - 15 MMOL/ L 03/27 8:[address] [facility] Not Available Not Available 12/11/2024 16:17:44 03/27/20 24 03/27/2024 Basic metab olic 2000 panel - Serum or Plasm a urea nitrogen/cre atinine [mass ratio] in serum or plasma 22.4 low: 6high: 26 BUN CREAT ININE RATIO 22.4 6 - 26 03/27 8:[address] [facility] Not Available Not Available 12/11/2024 16:17:44 03/27/20 24 03/27/2024 Basic metab olic 2000 panel - Serum or Plasm a glomerular filtration rate [volume rate/area] in serum, plasma or blood by creatinine-b ased formula (CKD-epi 2020)/1.73 sq M text: >90 mL/min /1.73 M2 GFR ESTIM ATE >90 >90 ML/OK N/1.7 3 M2 03/27 8:[address] [facility] Not Available Not Available 12/11/2024 [...] NON-R EACTI VE 03/27 8:[address] [facility] Not Available Not Available 11/05/2024 12:09:08 03/27/20 24 03/27/2024 Hepat itis 1996 panel - Serum hepatitis B virus core Ab [presence] in serum NON-RE ACTIVE text: non-re active HEP B CORE TOTAL AB NON-R EACTI VE NON-R EACTI VE 03/27 8:[address] [facility] Not Available Not Available 11/05/2024 12:09:08 03/27/20 24 03/27/2024 Hepat itis 1996 panel - Serum hepatitis B virus surface Ab [presence] in serum NON-RE ACTIVE HEP B SURFA CE AB NON-R EACTI VE 03/27 9:[address] [facility] Not Available Not Available 11/05/2024 12:09:08 03/27/20 24 03/27/2024 Hepat itis 1996 panel - Serum hepatitis A virus IgM Ab [presence] in serum NON-RE ACTIVE text: non-re active HAV IGM NON-R EACTI VE NON-R EACTI VE 03/27 8:[address] [facility] Not Available Not Available 11/05/2024 12:09:08 03/27/20 24 03/27/2024 Hepat itis 1996 panel - Serum hepatitis C virus Ab [presence] in serum NON-RE ACTIVE text: non-re active HEPAT ITIS C AB NON-R EACTI VE NON-R EACTI VE 03/27 8:[address] [facility] Not Available Not Available 11/05/2024 12:09:08 03/27/20 24 03/27/2024 Gluco se [Mass /volu me] in Blood by Autom ated test strip glucose [mass/volume ] in blood by automated test strip 76 mg/dL low: 70mg/d Lhigh: 99mg/d L GLUCO SE POC 76 70 - 99 mg/dL 03/27 6:[address] [facility] Not Available Not Available 12/11/2024 16:17:44 03/28/20 24 03/28/2024 Gluco se [Mass /volu me] in Blood by Autom ated test strip glucose [mass/volume ] in blood by automated test strip 227 mg/dL low: 70mg/d Lhigh: 99mg/d L high GLUCO SE POC 227 (H) 70 - 99 mg/dL 03/28 8:[address] [facility] Not Available Not Available 12/11/2024 [...] - 99 mg/dL 03/28 5:[address] [facility] Not Available Not Available 12/11/2024 [...] - 99 mg/dL 03/28 11:[address] [facility] Not Available Not Available 12/11/2024 [...] 11.0 x10'3 /uL 03/28 8:[address] [facility] Not Available Not Available 12/11/2024 16:17:44 03/28/20 24 03/28/2024 CBC W Auto Diffe renti al panel - Blood erythrocytes [#/volume] in blood by automated count 3.97 text: 4.70 - 6.10 x10'6/ uL low RBC 3.97 (L) 4.70 - 6.10 x10'6 /uL 03/28 8:[address] [facility] Not Available Not Available 12/11/2024 16:17:44 03/28/20 24 03/28/2024 CBC W Auto Diffe renti al panel - Blood hemoglobin [mass/volume ] in blood 9.1 text: 14.0 - 18.0 g/dL low HGB 9.1 (L) 14.0 - 18.0 G/DL 03/28 8:[address] [facility] Not Available Not Available 12/11/2024 16:17:44 03/28/20 24 03/28/2024 CBC W Auto Diffe renti al panel - Blood hematocrit [volume fraction] of blood by calculation 32.1 % low: 43%hig h: 54% low HCT 32.1 (L) 43.0 - 54.0 % 03/28 8:[address] [facility] Not Available Not Available 12/11/2024 16:17:44 03/28/20 24 03/28/2024 CBC W Auto Diffe renti al panel - Blood MCV [entitic mean volume] in red blood cells 80.9 text: 80.0 - 94.0 fL MCV 80.9 80.0 - 94.0 FL 03/28 8:[address] [facility] Not Available Not Available 12/11/2024 16:17:44 03/28/20 24 03/28/2024 CBC W Auto Diffe renti al panel - Blood MCH [entitic mass] 22.9 pg low: 27pghi gh: 31pg low MCH 22.9 (L) 27.0 - 31.0 PG 03/28 8:[address] [facility] Not Available Not Available 12/11/2024 16:17:44 03/28/20 24 03/28/2024 CBC W Auto Diffe renti al panel - Blood MCHC [entitic mass/volume] in red blood cells 28.3 text: 32.0 - 36.0 g/dL low MCHC 28.3 (L) 32.0 - 36.0 G/DL 03/28 8:[address] [facility] Not Available Not Available 12/11/2024 16:17:44 03/28/20 24 03/28/2024 CBC W Auto Diffe renti al panel - Blood RDW 24.1 % low: 11.5%h igh: 14.5% high RDW 24.1 (H) 11.5 - 14.5 % 03/28 8:[address] [facility] Not Available Not Available 12/11/2024 16:17:44 03/28/20 24 03/28/2024 CBC W Auto Diffe renti al panel - Blood platelets [#/volume] in blood 235 text: 130 - 400 x10'3/ uL PLT 235 130 - 400 x10'3 /uL 03/28 8:[address] [facility] Not Available Not Available 12/11/2024 16:17:44 03/28/20 24 03/28/2024 CBC W Auto Diffe renti al panel - Blood platelet [entitic mean volume] in blood 10 text: 9.3 - 12.2 fL MPV 10.0 9.3 - 12.2 FL 03/28 8:45 AM CDT [facility] Not Available Not Available 12/11/2024 16:17:44 03/28/20 24 03/28/2024 CBC W Auto Diffe renti al panel - Blood differential cell count method - blood AUTOMA ANIBAL DIFFER ENTIAL DIFFE RENTI AL TYPE AUTOM ATED DIFFE RENTI AL 03/28 8:[address] [facility] Not Available Not Available 12/11/2024 16:17:44 03/28/20 24 03/28/2024 CBC W Auto Diffe renti al panel - Blood neutrophils/ leukocytes in blood by automated count 67.9 % NEUTR OPHIL S % 67.9 % 03/28 8:[address] [facility] Not Available Not Available 12/11/2024 16:17:44 03/28/20 24 03/28/2024 CBC W Auto Diffe renti al panel - Blood lymphocytes/ leukocytes in blood by automated count 17 % LYMPH OCYTE S % 17.0 % 03/28 8:46 AM CDT [facility] Not Available Not Available 12/11/2024 16:17:44 03/28/20 24 03/28/2024 CBC W Auto Diffe renti al panel - Blood monocytes/le ukocytes in blood by automated count 13.5 % MONOC YTES % 13.5 % 03/28 8:[address] [facility] Not Available Not Available 12/11/2024 16:17:44 03/28/20 24 03/28/2024 CBC W Auto Diffe renti al panel - Blood eosinophils/ leukocytes in blood by automated count 0.7 % EOSIN OPHIL S 0.7 % 03/28 8:[address] [facility] Not Available Not Available 12/11/2024 16:17:44 0803/28/2024 CBC W Auto Diffe renti al panel - Blood basophils/le ukocytes in blood by automated count 0.4 % BASOP HILS 0.4 % 03/28 8:[address] [facility] Not Available Not Available 12/11/2024 16:17:44 03/28/20 24 03/28/2024 CBC W Auto Diffe renti al panel - Blood immature granulocytes /leukocytes in blood by automated count 0.5 % IMMAT URE GRANS % 0.5 % 03/28 8:[address] [facility] Not Available Not Available 12/11/2024 16:17:44 03/28/20 24 03/28/2024 CBC W Auto Diffe renti al panel - Blood neutrophils [#/volume] in blood 3.71 text: 1.80 - 7.70 x10'3/ uL ABS. NEUTR OPHIL S 3.71 1.80 - 7.70 x10'3 /uL 03/28 8:[address] [facility] Not Available Not Available 12/11/2024 16:17:44 03/28/20 24 03/28/2024 CBC W Auto Diffe renti al panel - Blood lymphocytes [#/volume] in blood 0.93 text: 1.00 - 4.80 x10'3/ uL low ABS. LYMPH OCYTE S 0.93 (L) 1.00 - 4.80 x10'3 /uL 03/28 8:[address] [facility] Not Available Not Available 12/11/2024 16:17:44 03/28/20 24 03/28/2024 CBC W Auto Diffe renti al panel - Blood monocytes [#/volume] in blood 0.74 text: 0.30 - 0.82 x10'3/ uL ABS. MONOC YTES 0.74 0.30 - 0.82 x10'3 /uL 03/28 8:[address] [facility] Not Available Not Available 12/11/2024 16:17:44 03/28/20 24 03/28/2024 CBC W Auto Diffe renti al panel - Blood eosinophils [#/volume] in blood 0.04 text: 0.04 - 0.54 x10'3/ uL ABS. EOSIN OPHIL S 0.04 0.04 - 0.54 x10'3 /uL 03/28 8:46 AM CDT [facility] Not Available Not Available 12/11/2024 16:17:44 03/28/20 24 03/28/2024 CBC W Auto Diffe renti al panel - Blood basophils [#/volume] in blood 0.02 text: 0.01 - 0.08 x10'3/ uL ABS. BASOP HILS 0.02 0.01 - 0.08 x10'3 /uL 03/28 8:46 AM CDT [facility] Not Available Not Available 12/11/2024 16:17:44 03/28/20 24 03/28/2024 CBC W Auto Diffe renti al panel - Blood immature granulocytes [#/volume] in blood 0.03 text: 0.00 - 0.49 x10'3/ uL ABS. IMMAT URE GRANU LOCYT ES 0.03 0.00 - 0.49 x10'3 /uL 03/28 8:46 AM CDT [facility] Not Available Not Available 12/11/2024 16:17:44 03/28/20 24 03/28/2024 CBC W Auto Diffe renti al panel - Blood erythrocytes [morphology] in blood by automated count SLIDE REVIEW ED RBC MORPH OLOGY SLIDE REVIE WED 03/28 8:46 AM CDT [facility] Not Available Not Available 12/11/2024 16:17:44 03/28/2003/28/2024 CBC W Auto Diffe renti al panel - Blood anisocytosis [presence] in blood 2+ ANISO 2+ 03/28 8:46 AM CDT [facility] Not Available Not Available 12/11/2024 16:17:44 03/28/20 24 03/28/2024 CBC W Auto Diffe renti al panel - Blood platelets [#/volume] in blood by automated count ADEQUA TE PLT EST. ADEQU ATE 03/28 8:[address] [facility] Not Available Not Available 12/11/2024 [...] - 99 MG/DL 03/28 8:[address] [facility] Not Available Not Available 12/11/2024 16:17:44 03/28/20 24 03/28/2024 Basic metab olic 1999 panel - Serum or Plasm a urea nitrogen [mass/volume ] in serum or plasma 21 text: 7 - 18 mg/dL high BUN 21 (H) 7 - 18 MG/DL 03/28 8:[address] [facility] Not Available Not Available 12/11/2024 16:17:44 03/28/20 24 03/28/2024 Basic metab olic 1999 panel - Serum or Plasm a creatinine [mass/volume ] in serum or plasma 0.91 text: 0.7 - 1.3 mg/dL CREAT ININE S/P/B 0.91 0.7 - 1.3 MG/DL 03/28 8:[address] [facility] Not Available Not Available 12/11/2024 16:17:44 03/28/20 24 03/28/2024 Basic metab olic 2000 panel - Serum or Plasm a sodium [moles/volum e] in serum or plasma 135 text: 136 - 145 mmol/L low SODIU M S/P/B 135 (L) 136 - 145 MMOL/ L 03/28 8:[address] [facility] Not Available Not Available 12/11/2024 16:17:44 03/28/20 24 03/28/2024 Basic metab olic 2000 panel - Serum or Plasm a potassium [moles/volum e] in serum or plasma 4.5 text: 3.5 - 5.1 mmol/L POTAS SIUM S/P/B 4.5 3.5 - 5.1 MMOL/ L 03/28 8:[address] [facility] Not Available Not Available 12/11/2024 16:17:44 03/28/20 24 03/28/2024 Basic metab olic 1999 panel - Serum or Plasm a chloride [moles/volum e] in serum or plasma 103 text: 100 - 108 mmol/L CHLOR SYLVIA S/P/B 103 100 - 108 MMOL/ L 03/28 8:[address] [facility] Not Available Not Available 12/11/2024 16:17:44 03/28/20 24 03/28/2024 Basic metab olic 1999 panel - Serum or Plasm a carbon dioxide, total [moles/volum e] in serum or plasma 28.2 text: 21 - 32 mmol/L CO2 28.2 21 - 32 MMOL/ L 03/28 8:[address] [facility] Not Available Not Available 12/11/2024 16:17:44 03/28/20 24 03/28/2024 Basic metab olic 1999 panel - Serum or Plasm a calcium [mass/volume ] in serum or plasma 8.8 text: 8.5 - 10.1 mg/dL CALCI UM S/P/B 8.8 8.5 - 10.1 MG/DL 03/28 8:[address] [facility] Not Available Not Available 12/11/2024 16:17:44 03/28/20 24 03/28/2024 Basic metab olic 1999 panel - Serum or Plasm a anion gap in serum or plasma by calculation 3.8 text: 5 - 15 mmol/L low ANION GAP 3.8 (L) 5 - 15 MMOL/ L 03/28 8:[address] [facility] Not Available Not Available 12/11/2024 16:17:44 03/28/20 24 03/28/2024 Basic metab olic 2000 panel - Serum or Plasm a urea nitrogen/cre atinine [mass ratio] in serum or plasma 23.1 low: 6high: 26 BUN CREAT ININE RATIO 23.1 6 - 26 03/28 8:[address] [facility] Not Available Not Available 12/11/2024 16:17:44 03/28/20 24 03/28/2024 Basic metab olic 2000 panel - Serum or Plasm a glomerular filtration rate [volume rate/area] in serum, plasma or blood by creatinine-b ased formula (CKD-epi 2020)/1.73 sq M text: >90 mL/min /1.73 M2 GFR ESTIM ATE >90 >90 ML/OK N/1.7 3 M2 03/28 8:47 AM [facility] Not Available Not Available 12/11/2024 16:17:44 [...] 70 - 99 mg/dL 03/28 6:[address] [facility] Not Available Not Available 12/11/2024 [...] - 99 mg/dL 03/29 11:[address] [facility] Not Available Not Available 12/11/2024 [...] - 99 mg/dL 03/29 6:[address] [facility] Not Available Not Available 12/11/2024 [...] 11.0 x10'3 /uL 03/29 5:[address] [facility] Not Available Not Available 12/11/2024 16:17:45 03/29/20 24 03/29/2024 CBC W Auto Diffe renti al panel - Blood erythrocytes [#/volume] in blood by automated count 3.86 text: 4.70 - 6.10 x10'6/ uL low RBC 3.86 (L) 4.70 - 6.10 x10'6 /uL 03/29 5:[address] [facility] Not Available Not Available 12/11/2024 16:17:45 03/29/20 24 03/29/2024 CBC W Auto Diffe renti al panel - Blood hemoglobin [mass/volume ] in blood 9.1 text: 14.0 - 18.0 g/dL low HGB 9.1 (L) 14.0 - 18.0 G/DL 03/29 5:[address] [facility] Not Available Not Available 12/11/2024 16:17:45 03/29/2003/29/2024 CBC W Auto Diffe renti al panel - Blood hematocrit [volume fraction] of blood by calculation 32 % low: 43%hig h: 54% low HCT 32.0 (L) 43.0 - 54.0 % 03/29 5:[address] [facility] Not Available Not Available 12/11/2024 16:17:45 03/29/2003/29/2024 CBC W Auto Diffe renti al panel - Blood MCV [entitic mean volume] in red blood cells 82.9 text: 80.0 - 94.0 fL MCV 82.9 80.0 - 94.0 FL 03/29 5:[address] [facility] Not Available Not Available 12/11/2024 16:17:45 03/29/2003/29/2024 CBC W Auto Diffe renti al panel - Blood MCH [entitic mass] 23.6 pg low: 27pghi gh: 31pg low MCH 23.6 (L) 27.0 - 31.0 PG 03/29 5:[address] [facility] Not Available Not Available 12/11/2024 16:17:45 03/29/2003/29/2024 CBC W Auto Diffe renti al panel - Blood MCHC [entitic mass/volume] in red blood cells 28.4 text: 32.0 - 36.0 g/dL low MCHC 28.4 (L) 32.0 - 36.0 G/DL 03/29 5:[address] [facility] Not Available Not Available 12/11/2024 16:17:45 03/29/20 24 03/29/2024 CBC W Auto Diffe renti al panel - Blood RDW 24.3 % low: 11.5%h igh: 14.5% high RDW 24.3 (H) 11.5 - 14.5 % 03/29 5:[address] [facility] Not Available Not Available 12/11/2024 16:17:45 03/29/20 24 03/29/2024 CBC W Auto Diffe renti al panel - Blood platelets [#/volume] in blood 225 text: 130 - 400 x10'3/ uL PLT 225 130 - 400 x10'3 /uL 03/29 5:[address] [facility] Not Available Not Available 12/11/2024 16:17:45 03/29/20 24 03/29/2024 CBC W Auto Diffe renti al panel - Blood platelet [entitic mean volume] in blood 9.7 text: 9.3 - 12.2 fL MPV 9.7 9.3 - 12.2 FL 03/29 5:[address] [facility] Not Available Not Available 12/11/2024 16:17:45 03/29/20 24 03/29/2024 CBC W Auto Diffe renti al panel - Blood differential cell count method - blood MANUAL DIFFER ENTIAL DIFFE ROSE AL TYPE VANI L DIFFE MARISOLTI AL 03/29 6:[address] [facility] Not Available Not Available 12/11/2024 16:17:45 03/29/20 24 03/29/2024 CBC W Auto Diffe renti al panel - Blood segmented neutrophils/ leukocytes in blood by manual count 76 % SEG NEUTR OPHIL S 76 % 03/29 6:[address] [facility] Not Available Not Available 12/11/2024 16:17:45 03/29/20 24 03/29/2024 CBC W Auto Diffe renti al panel - Blood lymphocytes/ leukocytes in blood by manual count 12 % LYMPH OCYTE S 12 % 03/29 6:[address] [facility] Not Available Not Available 12/11/2024 16:17:45 03/29/20 24 03/29/2024 CBC W Auto Diffe renti al panel - Blood monocytes/le ukocytes in blood by manual count 9 % MONOC YTES 9 % 03/29 6:[address] [facility] Not Available Not Available 12/11/2024 16:17:45 03/29/20 24 03/29/2024 CBC W Auto Diffe renti al panel - Blood basophils/le ukocytes in blood 1 % BASOP HILS 1 % 03/29 6:[address] [facility] Not Available Not Available 12/11/2024 16:17:45 03/29/20 24 03/29/2024 CBC W Auto Diffe renti al panel - Blood band form neutrophils/ leukocytes in blood by manual count 1 % BANDS 1 % 03/29 6:[address] [facility] Not Available Not Available 12/11/2024 16:17:45 03/29/20 24 03/29/2024 CBC W Auto Diffe renti al panel - Blood myelocytes [#/volume] in blood by manual count 1 % MYELO CYTES 1 % 03/29 6:[address] [facility] Not Available Not Available 12/11/2024 16:17:45 03/29/20 24 03/29/2024 CBC W Auto Diffe renti al panel - Blood neutrophils [#/volume] in blood 4.07 text: 1.80 - 7.70 x10'3/ uL ABS. NEUTR OPHIL S 4.07 1.80 - 7.70 x10'3 /uL 03/29 6:[address] [facility] Not Available Not Available 12/11/2024 16:17:45 03/29/20 24 03/29/2024 CBC W Auto Diffe renti al panel - Blood lymphocytes [#/volume] in blood 0.63 text: 1.00 - 4.80 x10'3/ uL low ABS. LYMPH OCYTE S 0.63 (L) 1.00 - 4.80 x10'3 /uL 03/29 6:[address] [facility] Not Available Not Available 12/11/2024 16:17:45 03/29/2003/29/2024 CBC W Auto Diffe renti al panel - Blood monocytes [#/volume] in blood 0.48 text: 0.30 - 0.82 x10'3/ uL ABS. MONOC YTES 0.48 0.30 - 0.82 x10'3 /uL 03/29 6:[address] [facility] Not Available Not Available 12/11/2024 16:17:45 03/29/2003/29/2024 CBC W Auto Diffe renti al panel - Blood basophils [#/volume] in blood 0.05 text: 0.01 - 0.08 x10'3/ uL ABS. BASOP HILS 0.05 0.01 - 0.08 x10'3 /uL 03/29 6:[address] [facility] Not Available Not Available 12/11/2024 16:17:45 03/29/2003/29/2024 CBC W Auto Diffe renti al panel - Blood myelocytes [#/volume] in blood by manual count 0.05 text: 0.00 x10'3/ uL high ABS. MYELO CYTES 0.05 (H) 0.00 x10'3 /uL 03/29 6:[address] [facility] Not Available Not Available 12/11/2024 16:17:45 03/29/20 24 03/29/2024 CBC W Auto Diffe renti al panel - Blood erythrocytes [morphology] in blood by automated count SLIDE REVIEW ED RBC MORPH OLOGY SLIDE REVIE WED 03/29 6:[address] [facility] Not Available Not Available 12/11/2024 16:17:45 03/29/20 24 03/29/2024 CBC W Auto Diffe renti al panel - Blood anisocytosis [presence] in blood 2+ ANISO 2+ 03/29 6:[address] [facility] Not Available Not Available 12/11/2024 16:17:45 03/29/20 24 03/29/2024 CBC W Auto Diffe renti al panel - Blood poikilocytos is [presence] in blood by automated count 1+ POIKL O 1+ 03/29 6:[address] [facility] Not Available Not Available 12/11/2024 16:17:45 03/29/20 24 03/29/2024 CBC W Auto Diffe renti al panel - Blood hypochromia [presence] in blood 1+ HYPOC HROMA JAZMYNE 1+ 03/29 6:[address] [facility] Not Available Not Available 12/11/2024 16:17:45 03/29/20 24 03/29/2024 CBC W Auto Diffe renti al panel - Blood platelets [#/volume] in blood by automated count ADEQUA TE PLT EST. ADEQU ATE 03/29 6:[address] [facility] Not Available Not Available 12/11/2024 [...] 70 - 99 MG/DL 03/29 5:[address] [facility] Not Available Not Available 12/11/2024 16:17:45 03/29/20 24 03/29/2024 Basic metab olic 1999 panel - Serum or Plasm a urea nitrogen [mass/volume ] in serum or plasma 20 text: 7 - 18 mg/dL high BUN 20 (H) 7 - 18 MG/DL 03/29 5:[address] [facility] Not Available Not Available 12/11/2024 16:17:45 03/29/20 24 03/29/2024 Basic metab olic 1999 panel - Serum or Plasm a creatinine [mass/volume ] in serum or plasma 0.81 text: 0.7 - 1.3 mg/dL CREAT ININE S/P/B 0.81 0.7 - 1.3 MG/DL 03/29 5:[address] [facility] Not Available Not Available 12/11/2024 16:17:45 03/29/20 24 03/29/2024 Basic metab olic 1999 panel - Serum or Plasm a sodium [moles/volum e] in serum or plasma 136 text: 136 - 145 mmol/L SODIU M S/P/B 136 136 - 145 MMOL/ L 03/29 5:[address] [facility] Not Available Not Available 12/11/2024 16:17:45 03/29/20 24 03/29/2024 Basic metab olic 1999 panel - Serum or Plasm a potassium [moles/volum e] in serum or plasma 4.4 text: 3.5 - 5.1 mmol/L POTAS SIUM S/P/B 4.4 3.5 - 5.1 MMOL/ L 03/29 5:[address] [facility] Not Available Not Available 12/11/2024 16:17:45 03/29/20 24 03/29/2024 Basic metab olic 1999 panel - Serum or Plasm a chloride [moles/volum e] in serum or plasma 105 text: 100 - 108 mmol/L CHLOR SYLVIA S/P/B 105 100 - 108 MMOL/ L 03/29 5:[address] [facility] Not Available Not Available 12/11/2024 16:17:45 03/29/20 24 03/29/2024 Basic metab olic 1999 panel - Serum or Plasm a carbon dioxide, total [moles/volum e] in serum or plasma 27.4 text: 21 - 32 mmol/L CO2 27.4 21 - 32 MMOL/ L 03/29 5:[address] [facility] Not Available Not Available 12/11/2024 16:17:45 03/29/20 24 03/29/2024 Basic metab olic 1999 panel - Serum or Plasm a calcium [mass/volume ] in serum or plasma 8.4 text: 8.5 - 10.1 mg/dL low CALCI UM S/P/B 8.4 (L) 8.5 - 10.1 MG/DL 03/29 5:[address] [facility] Not Available Not Available 12/11/2024 16:17:45 03/29/20 24 03/29/2024 Basic metab olic 1999 panel - Serum or Plasm a anion gap in serum or plasma by calculation 3.6 text: 5 - 15 mmol/L low ANION GAP 3.6 (L) 5 - 15 MMOL/ L 03/29 5:[address] [facility] Not Available Not Available 12/11/2024 16:17:45 03/29/20 24 03/29/2024 Basic metab olic 2000 panel - Serum or Plasm a urea nitrogen/cre atinine [mass ratio] in serum or plasma 24.6 low: 6high: 26 BUN CREAT ININE RATIO 24.6 6 - 26 03/29 5:22 AM CDT [facility] Not Available Not Available 12/11/2024 16:17:45 03/29/20 24 03/29/2024 Basic metab olic 2000 panel - Serum or Plasm a glomerular filtration rate [volume rate/area] in serum, plasma or blood by creatinine-b ased formula (CKD-epi 2020)/1.73 sq M text: >90 mL/min /1.73 M2 GFR ESTIM ATE >90 >90 ML/OK N/1.7 3 M2 03/29 5:22 AM CDT [facility] Not Available Not [...] (H) <=5.6 % 06/14 10:14 AM T [facility] Not Available Not Available 10/09/2024 11:42:35 06/14/2006/14/2024 Hemog lobin A1c/H emogl obin. total in Blood glucose mean value [mass/volume ] in blood estimated from glycated hemoglobin 137 mg/dL Estim ated [place] [facility] Gluco se 137 mg/dL 06/14 10:14 AM T [facility] Not Available Not [...] brigid Scree n NEG 07/23 5:23 PM PRINCIPAL ACCOUNT CLERK [facility] Not Available Not Available 10/09/2024 11:42:35 07/23/20 24 07/23/2024 Blood type and Indir ect antib brigid scree n panel - Blood ABO and Rh group [type] in blood O POS ABO Rh O POS 07/23 5:23 PM PRINCIPAL ACCOUNT CLERK [facility] Not Available Not Available 10/09/2024 11:42:35 07/23/20 24 07/23/2024 CBC W Auto Diffe renti al panel - Blood leukocytes [#/volume] in blood by automated count 9.1 text: 4.0 - 10.7 x10e9/ L WBC 9.1 4.0 - 10.7 x10E9 /L 07/23 4:44 PM PRINCIPAL ACCOUNT CLERK [facility] Not Available Not Available 10/09/2024 11:42:35 07/23/20 24 07/23/2024 CBC W Auto Diffe renti al panel - Blood erythrocytes [#/volume] in blood by automated count 4.29 text: 4.30 - 5.80 x10e12 /L low RBC Count 4.29 (L) 4.30 - 5.80 x10E1 2/L 07/23 4:44 PM PRINCIPAL ACCOUNT CLERK [facility] Not Available Not Available 10/09/2024 11:42:35 07/23/20 24 07/23/2024 CBC W Auto Diffe renti al panel - Blood hemoglobin [mass/volume ] in blood 9.9 g/dL low: 13.3g/ dLhigh : 17.5g/ dL low Hemog lobin 9.9 (L) 13.3 - 17.5 g/dL 07/23 4:44 PM PRINCIPAL ACCOUNT CLERK [facility] Not Available Not Available 10/09/2024 11:42:35 07/23/20 24 07/23/2024 CBC W Auto Diffe renti al panel - Blood hematocrit [volume fraction] of blood by automated count 33 % low: 38.7%h igh: 51.1% low Hemat ocrit 33.0 (L) 38.7 - 51.1 % 07/23 4:44 PM PRINCIPAL ACCOUNT CLERK [facility] Not Available Not Available 10/09/2024 11:42:35 07/23/2007/23/2024 CBC W Auto Diffe renti al panel - Blood MCV [entitic volume] by automated count 76.9 fL low: 80fLhi gh: 98fL low MCV 76.9 (L) 80.0 - 98.0 fL 07/23 4:44 PM PRINCIPAL ACCOUNT CLERK [facility] Not Available Not Available 10/09/2024 11:42:35 07/23/2007/23/2024 CBC W Auto Diffe renti al panel - Blood MCH [entitic mass] by automated count 23.1 pg low: 26.7pg high: 33.6pg low MCH 23.1 (L) 26.7 - 33.6 pg 07/23 4:44 PM PRINCIPAL ACCOUNT CLERK [facility] Not Available Not Available 10/09/2024 11:42:35 07/23/20 24 07/23/2024 CBC W Auto Diffe marisolti al panel - Blood MCHC [mass/volume ] by automated count 30 g/dL low: 31.7g/ dLhigh : 36.3g/ dL low MCHC 30.0 (L) 31.7 - 36.3 g/dL 07/23 4:44 PM PRINCIPAL ACCOUNT CLERK [facility] Not Available Not Available 10/09/2024 11:42:35 07/23/2007/23/2024 CBC W Auto Diffe marisolti al panel - Blood erythrocyte distribution width [ratio] by automated count 19.4 % low: 11.3%h igh: 14.8% high RDW-C V 19.4 (H) 11.3 - 14.8 % 07/23 4:44 PM PRINCIPAL ACCOUNT CLERK [facility] Not Available Not Available 10/09/2024 11:42:35 07/23/2007/23/2024 CBC W Auto Diffe renti al panel - Blood platelets [#/volume] in blood by automated count 353 text: 150 - 420 x10e9/ L Plate let Count 353 150 - 420 x10E9 /L 07/23 4:44 PM PRINCIPAL ACCOUNT CLERK [facility] Not Available Not Available 10/09/2024 11:42:35 07/23/2007/23/2024 CBC W Auto Diffe renti al panel - Blood platelet mean volume [entitic volume] in blood by automated count 10.7 fL low: 7.8fLh igh: 11.4fL MPV 10.7 7.8 - 11.4 fL 07/23 4:44 PM PRINCIPAL ACCOUNT CLERK [facility] Not Available Not Available 10/09/2024 11:42:35 07/23/20 24 07/23/2024 CBC W Auto Diffe renti al panel - Blood neutrophils/ 100 leukocytes in blood by automated count 79.4 % low: 41%hig h: 74% high Neutr ophil % 79.4 (H) 41.0 - 74.0 % 07/23 4:44 PM PRINCIPAL ACCOUNT CLERK [facility] Not Available Not Available 10/09/2024 11:42:35 07/23/20 24 07/23/2024 CBC W Auto Diffe renti al panel - Blood lymphocytes/ 100 leukocytes in blood by automated count 9 % low: 17%hig h: 47% low Lymph ocyte % 9.0 (L) 17.0 - 47.0 % 07/23 4:44 PM PRINCIPAL ACCOUNT CLERK [facility] Not Available Not Available 10/09/2024 11:42:35 07/23/20 24 07/23/2024 CBC W Auto Diffe renti al panel - Blood monocytes/10 0 leukocytes in blood by automated count 9.9 % low: 3%high : 11% Monoc yte % 9.9 3.0 - 11.0 % 07/23 4:44 PM PRINCIPAL ACCOUNT CLERK [facility] Not Available Not Available 10/09/2024 11:42:35 07/23/20 24 07/23/2024 CBC W Auto Diffe renti al panel - Blood eosinophils/ 100 leukocytes in blood by automated count 1.2 % low: 0%high : 7% Eosin ophil % 1.2 0.0 - 7.0 % 07/23 4:44 PM PRINCIPAL ACCOUNT CLERK [facility] Not Available Not Available 10/09/2024 11:42:35 07/23/20 24 07/23/2024 CBC W Auto Diffe renti al panel - Blood basophils/10 0 leukocytes in blood by automated count 0.2 % low: 0%high : 1.6% Basop hil % 0.2 0.0 - 1.6 % 07/23 4:44 PM PRINCIPAL ACCOUNT CLERK [facility] Not Available Not Available 10/09/2024 11:42:35 07/23/20 24 07/23/2024 CBC W Auto Diffe rose al panel - Blood immature granulocytes /100 leukocytes in blood by automated count 0.3 % low: 0%high : 1% Immat ure Granu locyt es % 0.3 0.0 - 1.0 % 07/23 4:44 PM PRINCIPAL ACCOUNT CLERK [facility] Not Available Not Available 10/09/2024 11:42:35 07/23/20 24 07/23/2024 CBC W Auto Diffe rose al panel - Blood neutrophils [#/volume] in blood by automated count 7.21 text: 1.60 - 7.50 x10e9/ L Neutr ophil Absol [place] 7.21 1.60 - 7.50 x10E9 /L 07/23 4:44 PM PRINCIPAL ACCOUNT CLERK [facility] Not Available Not Available 10/09/2024 11:42:35 07/23/20 24 07/23/2024 CBC W Auto Diffe rose al panel - Blood lymphocytes [#/volume] in blood by automated count 0.82 text: 1.00 - 4.40 x10e9/ L low Lymph ocyte Absol [place] 0.82 (L) 1.00 - 4.40 x10E9 /L 07/23 4:44 PM PRINCIPAL ACCOUNT CLERK [facility] Not Available Not Available 10/09/2024 11:42:35 07/23/20 24 07/23/2024 CBC W Auto Diffe renrodney al panel - Blood monocytes [#/volume] in blood by automated count 0.9 text: 0.15 - 1.00 x10e9/ L Monoc yte Absol [place] 0.90 0.15 - 1.00 x10E9 /L 07/23 4:44 PM PRINCIPAL ACCOUNT CLERK [facility] Not Available Not Available 10/09/2024 11:42:35 07/23/20 24 07/23/2024 CBC W Auto Diffe renti al panel - Blood eosinophils [#/volume] in blood 0.11 text: 0.00 - 0.60 x10e9/ L Eosin ophil Absol [place] 0.11 0.00 - 0.60 x10E9 /L 07/23 4:44 PM PRINCIPAL ACCOUNT CLERK [facility] Not Available Not Available 10/09/2024 11:42:35 07/23/20 24 07/23/2024 CBC W Auto Diffe renti al panel - Blood basophils [#/volume] in blood by automated count 0.02 text: 0.00 - 0.13 x10e9/ L Basop hil Absol [place] 0.02 0.00 - 0.13 x10E9 /L 07/23 4:44 PM PRINCIPAL ACCOUNT CLERK [facility] Not Available Not [...] 7 - 26 mg/dL 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[facility] Not Available Not Available 10/09/2024 11:42:35 07/23/2007/23/2024 Basic metab olic 1999 panel - Serum or Plasm a creatinine [mass/volume ] in serum or plasma 0.95 mg/dL low: 0.71mg /dLhig h: 1.16mg /dL Creat inine 0.95 0.71 - 1.16 mg/dL 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[facility] Not Available Not Available 10/09/2024 11:42:35 07/23/20 24 07/23/2024 Basic metab olic 2000 panel - Serum or Plasm a sodium [moles/volum e] in serum or plasma 141 mmol/ L low: 136mmo l/Lhig h: 145mmo l/L Sodromelu m 141 136 - 145 mmol/ L 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[facility] Not Available Not Available 10/09/2024 11:42:35 07/23/20 24 07/23/2024 Basic metab olic 2000 panel - Serum or Plasm a potassium [moles/volum e] in serum or plasma 5 mmol/ L low: 3.5mmo l/Lhig h: 4.5mmo l/L high Potas sium 5.0 (H) 3.5 - 4.5 mmol/ L 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[facility] Not Available Not Available 10/09/2024 11:42:35 07/23/20 24 07/23/2024 Basic metab olic 2000 panel - Serum or Plasm a chloride [moles/volum e] in serum or plasma 96 mmol/ L low: 98mmol /Lhigh : 107mmo l/L low Chlor sylvia 96 (L) 98 - 107 mmol/ L 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[facility] Not Available Not Available 10/09/2024 11:42:35 07/23/20 24 07/23/2024 Basic metab olic 2000 panel - Serum or Plasm a carbon dioxide, total [moles/volum e] in serum or plasma 25 mmol/ L low: 22mmol /Lhigh : 29mmol /L CO2 25 22 - 29 mmol/ L 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[facility] Not Available Not Available 10/09/2024 11:42:35 07/23/2007/23/2024 Basic metab olic 2000 panel - Serum or Plasm a glucose [mass/volume ] in serum or plasma 264 mg/dL low: 70mg/d Lhigh: 99mg/d L high Gluco se 264 (H) 70 - 99 mg/dL 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[facility] Not Available Not Available 10/09/2024 11:42:35 07/23/20 24 07/23/2024 Basic metab olic 2000 panel - Serum or Plasm a calcium [moles/volum e] in serum or plasma 9.2 mg/dL low: 8.4mg/ dLhigh : 10.2mg /dL Calci um 9.2 8.4 - 10.2 mg/dL 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 [facility] Not Available Not Available 10/09/2024 11:42:35 07/23/20 24 07/23/2024 Basic metab olic 2000 panel - Serum or Plasm a anion gap 20 low: 6high: 16 high Anion Gap 20 (H) 6 - 16 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[email or web address] Not Available Not Available 10/09/2024 11:42:35 07/23/20 24 07/23/2024 Basic metab olic 2000 panel - Serum or Plasm a urea nitrogen/cre atinine [mass ratio] in serum or plasma 17 low: 7high: 23 BUN/C reati nine Ratio 17 7 - 23 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[facility] Not Available Not Available 10/09/2024 11:42:35 07/23/20 24 07/23/2024 Basic metab olic 1999 panel - Serum or Plasm a osmolality calculated 302 text: 275 - 295 mOsm/k g high Osmol ality Calcu lated 302 (H) 275 - 295 mOsm/ kg 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[facility] Not Available Not Available 10/09/2024 11:42:35 07/23/20 24 07/23/2024 Basic metab olic 1999 panel - Serum or Plasm a glomerular filtration rate/1.73 sq M.predicted [volume rate/area] in serum, plasma or blood by creatinine-b ased formula (CKD-epi 2020) 87 text: >=90 mL/min /1.73 m2 low eGFR by CKD-E PI 87 (L) >=90 mL/mi n/1.7 3 m2 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[facility] Not Available Not Available [...] DO Not Attach Compendium, Do Not Delete/merge, [id number] 08/02/2024 12:56:04 08/02/20 24 08/02/2024 gluco se, finge rstic k, blood Blood Glucose: mg/dl 136 Not Available In-Off ice Order Internal Use Only DO Not Attach Compendium DO Not Attach Compendium, Do Not Delete/merge, [id number] 08/02/2024 12:56:03 11/09/19 25 11/08/2024 Urina lysis panel - Urine by Auto color of urine by auto Yellow text: yellow , straw Color UA Yello w Yello w, Straw 11/08 1:37 PM CDT [facility] Not Available Not Available 11/12/2024 11:10:04 11/09/19 25 11/08/2024 Urina lysis panel - Urine by Auto clarity in urine by refractometr y automated Clear text: clear Urszula ty UA Clear Clear 11/08 1:37 PM CDT [facility] Not Available Not Available 11/12/2024 11:10:04 11/09/19 25 11/08/2024 Urina lysis panel - Urine by Auto glucose [presence] in urine by test strip Normal text: normal Gluco se UA Bettie l Bettie l 11/08 1:37 PM CDT [facility] Not Available Not Available 11/12/2024 11:10:04 11/09/19 25 11/08/2024 Urina lysis panel - Urine by Auto bilirubin.to kelly [presence] in urine by test strip Negati ve text: negati ve Bilir ubin UA Negat joseph Negat joseph 11/08 1:37 PM CDT [facility] Not Available Not Available 11/12/2024 11:10:04 11/09/19 25 11/08/2024 Urina lysis panel - Urine by Auto ketones [presence] in urine by automated test strip Negati ve text: negati ve Keton e UA Negat joseph Negat joseph 11/08 1:37 PM CDT [facility] [facility] [address] [facility] Not Available Not Available 11/12/2024 11:10:04 11/09/1911/08/2024 Urina lysis panel - Urine by Auto specific gravity of urine by test strip low: 1.005h igh: 1.03 low Speci fic Gravi ty UA <1.00 5 (L) 1.005 - 1.030 11/08 1:37 PM CDT [facility] [address] [facility] Not Available Not Available 11/12/2024 11:10:04 11/09/1911/08/2024 Urina lysis panel - Urine by Auto hemoglobin [presence] in urine by test strip Negati ve text: negati ve Blood UA Negat joseph Negat joseph 11/08 1:37 PM CDT [facility] [address] [facility] Not Available Not Available 11/12/2024 11:10:04 11/09/19 25 11/08/2024 Urina lysis panel - Urine by Auto pH of urine by test strip 7 pH low: 5pHhig h: 9pH pH UA 7.0 5.0 - 9.0 pH 11/08 1:37 PM CDT [facility] [address] [facility] Not Available Not Available 11/12/2024 11:10:04 11/09/19 25 11/08/2024 Urina lysis panel - Urine by Auto protein [presence] in urine by test strip Negati ve text: negati ve Prote in UA Negat joseph Negat joseph 11/08 1:37 PM CDT [facility] [address] [facility] Not Available Not Available 11/12/2024 11:10:04 11/09/19 25 11/08/2024 Urina lysis panel - Urine by Auto urobilinogen [mass/volume ] in urine by automated test strip Normal text: normal mg/dL Urobi linog en UA Bettie l Bettie l mg/dL 11/08 1:37 PM CDT [facility] [address] [facility] Not Available Not Available 11/12/2024 11:10:04 11/09/19 25 11/08/2024 Urina lysis panel - Urine by Auto nitrite [presence] in urine by test strip Negati ve text: negati ve Nitri te UA Negat joseph Negat joseph 11/08 1:37 PM CDT [facility] [address] [facility] Not Available Not Available 11/12/2024 11:10:04 11/09/19 25 11/08/2024 Urina lysis panel - Urine by Auto leukocyte esterase [presence] in urine by test strip 25 PTA/uL text: negati ve abnormal Leuko cyte UA 25 PAT/u L (A) Negat joseph 11/08 1:37 PM CDT [facility] [address] [facility] Not Available Not Available 11/12/2024 11:10:04 11/09/19 25 11/08/2024 Urina lysis panel - Urine by Auto erythrocytes [#/area] in urine sediment by automated count 3-5 text: 0 - 5 # /hpf RBC UA 3-5 0 - 5 # /hpf 11/08 1:37 PM CDT [facility] [address] [facility] Not Available Not Available 11/12/2024 11:10:04 11/09/1911/08/2024 Urina lysis panel - Urine by Auto leukocytes [#/area] in urine sediment by automated count 0-5 text: 0 - 5 # /hpf WBC UA 0-5 0 - 5 # /hpf 11/08 1:37 PM CDT [facility] [address] [facility] Not Available Not Available 11/12/2024 11:10:04 11/09/1911/08/2024 Urina lysis panel - Urine by Auto bacteria [presence] in urine by automated None Seen text: none seen Bacte nickolas UA None Seen None Seen 11/08 1:37 PM CDT [facility] [address] [facility] Not Available Not Available 11/12/2024 11:10:04 11/09/19 25 11/08/2024 Urina lysis panel - Urine by Auto epithelial cells.squamo us [presence] in urine by automated 0-2 text: 0 - 5 /hpf Squam ous Epith elial Cells 0-2 0 - 5 /hpf 11/08 1:37 PM CDT [facility] [address] [address] [facility] [place] Not Available Not [...] ology REVIE WED 11/08 2:09 PM CDT [facility] [address] [employer] [facility] Not Available Not Available 11/12/2024 11:10:03 11/09/19 25 11/08/2024 SLIDE SCAN HEMAT OLOGY microcytes [presence] in blood by light microscopy MANY text: (none) abnormal Micro cytos is MANY (A) (none ) 11/08 2:09 PM CDT [employer] [facility] Not Available Not Available 11/12/2024 11:10:03 11/09/19 25 11/08/2024 SLIDE SCAN HEMAT OLOGY schistocytes [presence] in blood by light microscopy MANY text: (none) abnormal Schis tocyt es MANY (A) (none ) 11/08 2:09 PM CDT [facility] Not Available Not Available 11/12/2024 11:10:03 11/09/19 [...] 10.7 x10E9 /L 11/08 2:09 PM CDT [facility] Not Available Not Available 11/12/2024 11:10:03 11/09/19 25 11/08/2024 CBC W Auto Diffe renti al panel - Blood erythrocytes [#/volume] in blood by automated count 4.88 text: 4.30 - 5.80 x10e12 /L RBC Count 4.88 4.30 - 5.80 x10E1 2/L 11/08 2:09 PM [facility] Not Available Not Available 11/12/2024 11:10:03 11/09/19 25 11/08/2024 CBC W Auto Diffe renti al panel - Blood hemoglobin [mass/volume ] in blood 10.6 g/dL low: 13.3g/ dLhigh : 17.5g/ dL low Hemog lobin 10.6 (L) 13.3 - 17.5 g/dL 11/08 2:09 PM [facility] Not Available Not Available 11/12/2024 11:10:03 11/09/1911/08/2024 CBC W Auto Diffe renti al panel - Blood hematocrit [volume fraction] of blood by automated count 35.5 % low: 38.7%h igh: 51.1% low Hemat ocrit 35.5 (L) 38.7 - 51.1 % 11/08 2:09 PM [facility]T [facility] Not Available Not Available 11/12/2024 11:10:03 11/09/19 25 11/08/2024 CBC W Auto Diffe renti al panel - Blood MCV [entitic volume] by automated count 72.7 fL low: 80fLhi gh: 98fL low MCV 72.7 (L) 80.0 - 98.0 fL 11/08 2:09 PM CDT [facility] [address] [facility] Not Available Not Available 11/12/2024 11:10:03 11/09/19 25 11/08/2024 CBC W Auto Diffe renti al panel - Blood MCH [entitic mass] by automated count 21.7 pg low: 26.7pg high: 33.6pg low MCH 21.7 (L) 26.7 - 33.6 pg 11/08 2:09 PM CDT [facility] [address] [facility] Not Available Not Available 11/12/2024 11:10:03 11/09/19 25 11/08/2024 CBC W Auto Diffe rose al panel - Blood MCHC [mass/volume ] by automated count 29.9 g/dL low: 31.7g/ dLhigh : 36.3g/ dL low MCHC 29.9 (L) 31.7 - 36.3 g/dL 11/08 2:09 PM CDT [facility] [address] [facility] Not Available Not Available 11/12/2024 11:10:03 11/09/19 25 11/08/2024 CBC W Auto Diffe renti al panel - Blood erythrocyte distribution width [ratio] by automated count 24.2 % low: 11.3%h igh: 14.8% high RDW-C V 24.2 (H) 11.3 - 14.8 % 11/08 2:09 PM CDT [facility] [address] [facility] Not Available Not Available 11/12/2024 11:10:03 11/09/1911/08/2024 CBC W Auto Diffe renti al panel - Blood platelets [#/volume] in blood by automated count 269 text: 150 - 420 x10e9/ L Plate let Count 269 150 - 420 x10E9 /L 11/08 2:09 PM CDT [facility] [address] [facility] Not Available Not Available 11/12/2024 11:10:03 11/09/19 25 11/08/2024 CBC W Auto Diffe renti al panel - Blood platelet mean volume [entitic volume] in blood by automated count MPV 11/08 2:09 PM CDT [facility] Not Available Not Available 11/12/2024 11:10:03 11/09/19 25 11/08/2024 CBC W Auto Diffe renti al panel - Blood neutrophils/ 100 leukocytes in blood by automated count 74.9 % low: 41%hig h: 74% high Neutr ophil % 74.9 (H) 41.0 - 74.0 % 11/08 2:09 PM CDT [facility] Not Available Not Available 11/12/2024 11:10:03 11/09/19 25 11/08/2024 CBC W Auto Diffe renti al panel - Blood lymphocytes/ 100 leukocytes in blood by automated count 15.2 % low: 17%hig h: 47% low Lymph ocyte % 15.2 (L) 17.0 - 47.0 % 11/08 2:09 PM CDT [facility] Not Available Not Available 11/12/2024 11:10:03 11/09/19 25 11/08/2024 CBC W Auto Diffe renti al panel - Blood monocytes/10 0 leukocytes in blood by automated count 8.6 % low: 3%high : 11% Monoc yte % 8.6 3.0 - 11.0 % 11/08 2:09 PM CDT [facility] Not Available Not Available 11/12/2024 11:10:03 11/09/19 25 11/08/2024 CBC W Auto Diffe renti al panel - Blood eosinophils/ 100 leukocytes in blood by automated count 0.9 % low: 0%high : 7% Eosin ophil % 0.9 0.0 - 7.0 % 11/08 2:09 PM CDT [facility] [address] [address] [facility] Not Available Not Available 11/12/2024 11:10:03 11/09/19 25 11/08/2024 CBC W Auto Diffe renti al panel - Blood basophils/10 0 leukocytes in blood by automated count 0.3 % low: 0%high : 1.6% Basop hil % 0.3 0.0 - 1.6 % 11/08 2:09 PM CDT [facility] Not Available Not Available 11/12/2024 11:10:03 11/09/19 25 11/08/2024 CBC W Auto Diffe renti al panel - Blood immature granulocytes /100 leukocytes in blood by automated count 0.1 % low: 0%high : 1% Immat ure Granu locyt es % 0.1 0.0 - 1.0 % 11/08 2:09 PM CDT [facility] [address] [employer] [facility] Not Available Not Available 11/12/2024 11:10:03 11/09/19 25 11/08/2024 CBC W Auto Diffe renti al panel - Blood neutrophils [#/volume] in blood by automated count 5.17 text: 1.60 - 7.50 x10e9/ L Neutr ophil Absol navajo 5.17 1.60 - 7.50 x10E9 /L 11/08 2:09 PM CDT [facility] [address] [employer] [facility] Not Available Not Available 11/12/2024 11:10:03 11/09/19 25 11/08/2024 CBC W Auto Diffe renti al panel - Blood lymphocytes [#/volume] in blood by automated count 1.05 text: 1.00 - 4.40 x10e9/ L Lymph ocyte Absol [place] 1.05 1.00 - 4.40 x10E9 /L 11/08 2:09 PM CDT [facility] [address] [address] [employer] [facility] Not Available Not Available 11/12/2024 11:10:03 11/09/19 25 11/08/2024 CBC W Auto Diffe renti al panel - Blood monocytes [#/volume] in blood by automated count 0.59 text: 0.15 - 1.00 x10e9/ L Monoc yte Absol [place] 0.59 0.15 - 1.00 x10E9 /L 11/08 2:09 PM CDT [facility] [address] [address] [employer] [facility] Not Available Not Available 11/12/2024 11:10:03 11/09/19 25 11/08/2024 CBC W Auto Diffe renti al panel - Blood eosinophils [#/volume] in blood 0.06 text: 0.00 - 0.60 x10e9/ L Eosin ophil Absol [place] 0.06 0.00 - 0.60 x10E9 /L 11/08 2:09 PM CDT [facility] [address] [facility] Not Available Not Available 11/12/2024 11:10:03 11/09/1911/08/2024 CBC W Auto Diffe rose al panel - Blood basophils [#/volume] in blood by automated count 0.02 text: 0.00 - 0.13 x10e9/ L Basop hil Absol [place] 0.02 0.00 - 0.13 x10E9 /L 11/08 2:09 PM CDT [facility] [address] [facility] [place] Not Available Not Available 11/12/2024 11:10:03 11/09/1911/08/2024 CBC W Auto Diffe renrodney al panel - Blood interpretati on and review of laboratory results Abnorm al Not Available Not Available 11:10:03 11/09/19 25 11/08/2024 Basic metab olic 2000 panel - Serum or Plasm a urea nitrogen [mass/volume ] in serum or plasma 12 mg/dL low: 7mg/dL high: 26mg/d L BUN 12 7 - 26 mg/dL 11/08 2:05 PM CDT [facility] [address] [address] [facility] Not Available Not Available 11/12/2024 11:10:03 11/09/1911/08/2024 Basic metab olic 2000 panel - Serum or Plasm a creatinine [mass/volume ] in serum or plasma 0.8 mg/dL low: 0.71mg /dLhig h: 1.16mg /dL Creat inine 0.80 0.71 - 1.16 mg/dL 11/08 2:05 PM CDT [facility] Not Available Not Available 11/12/2024 11:10:03 11/09/19 25 11/08/2024 Basic metab olic 1999 panel - Serum or Plasm a sodium [moles/volum e] in serum or plasma 138 mmol/ L low: 136mmo l/Lhig h: 145mmo l/L Sodiu m 138 136 - 145 mmol/ L 11/08 2:05 PM CDT [facility] [address] [place] Not Available Not Available 11/12/2024 11:10:03 11/09/19 25 11/08/2024 Basic metab olic 1999 panel - Serum or Plasm a potassium [moles/volum e] in serum or plasma 4.4 mmol/ L low: 3.5mmo l/Lhig h: 4.5mmo l/L Potas sium 4.4 3.5 - 4.5 mmol/ L 11/08 2:05 PM CDT [facility] [address] [facility] [place] Not Available Not Available 11/12/2024 11:10:03 11/09/19 25 11/08/2024 Basic metab olic 1999 panel - Serum or Plasm a chloride [moles/volum e] in serum or plasma 104 mmol/ L low: 98mmol /Lhigh : 107mmo l/L Chlor sylvia 104 98 - 107 mmol/ L 11/08 2:05 PM CDT [facility] [address] Not Available Not Available 11/12/2024 11:10:03 11/09/19 25 11/08/2024 Basic metab olic 1999 panel - Serum or Plasm a carbon dioxide, total [moles/volum e] in serum or plasma 24 mmol/ L low: 22mmol /Lhigh : 29mmol /L CO2 24 22 - 29 mmol/ L 11/08 2:05 PM CDT [facility] [place] Not Available Not Available 11/12/2024 11:10:03 11/09/19 25 11/08/2024 Basic metab olic 1999 panel - Serum or Plasm a glucose [mass/volume ] in serum or plasma 276 mg/dL low: 70mg/d Lhigh: 99mg/d L high Gluco se 276 (H) 70 - 99 mg/dL 11/08 2:05 PM CDT [facility] [address] [facility] [place] Not Available Not Available 11/12/2024 11:10:03 11/09/19 25 11/08/2024 Basic metab olic 2000 panel - Serum or Plasm a calcium [moles/volum e] in serum or plasma 9.2 mg/dL low: 8.4mg/ dLhigh : 10.2mg /dL Calci um 9.2 8.4 - 10.2 mg/dL 11/08 2:05 PM CDT [facility] [address] [facility] Not Available Not Available 11/12/2024 11:10:03 11/09/19 25 11/08/2024 Basic metab olic 2000 panel - Serum or Plasm a anion gap 10 low: 6high: 16 Anion Gap 10 6 - 16 11/08 2:05 PM CDT [facility] [address] Not Available Not Available 11/12/2024 11:10:03 11/09/19 25 11/08/2024 Basic metab olic 2000 panel - Serum or Plasm a urea nitrogen/cre atinine [mass ratio] in serum or plasma 15 low: 7high: 23 BUN/C reati nine Ratio 15 7 - 23 11/08 2:05 PM CDT [facility] [address] [facility] Not Available Not Available 11/12/2024 11:10:03 11/09/19 25 11/08/2024 Basic metab olic 2000 panel - Serum or Plasm a osmolality calculated 296 text: 275 - 295 mOsm/k g high Osmol ality Calcu lated 296 (H) 275 - 295 mOsm/ kg 11/08 2:05 PM T [facility] [address] Not Available Not Available 11/12/2024 11:10:03 11/09/19 25 11/08/2024 Basic metab olic 2000 panel - Serum or Plasm a glomerular filtration rate/1.73 sq M.predicted [volume rate/area] in serum, plasma or blood by creatinine-b ased formula (CKD-epi 2020) text: >=90 mL/min /1.73 m2 eGFR by CKD-E PI >90 >=90 mL/mi n/1.7 3 m2 11/08 2:05 PM CDT [facility] [address] [place] Not Available Not [...] plasma NEG Antib brigid Scree n NEG 03/14 /2025 2:11 PM CDT [facility] [address] [facility] Not Available Not Available 11/12/2024 11:09:55 11/09/19 25 11/08/2024 Blood type and Indir ect antib brigid scree n panel - Blood ABO and Rh group [type] in blood O POS ABO Rh O POS 11/08 2:11 PM CDT [facility] [address] Not Available Not Available 11/12/2024 11:09:55 11/13/19 25 11/12/2024 Gluco se [Mass /volu me] in Arter ial blood glucose [mass/volume ] in capillary blood by glucometer 177 mg/dL low: 70mg/d Lhigh: 99mg/d L high Gluco se WB/PO C 177 (H) 70 - 99 mg/dL 11/12 8:39 PM CDT [facility] [address] Not Available Not Available 12/11/2024 16:15:50 11/13/19 25 11/12/2024 Gluco se [Mass /volu me] in Arter ial blood specimen source identified Cap Finger stick Speci men Type Cap Finge rstic k 11/12 8:39 PM CDT [facility] [address] [facility] [place] Not Available Not [...] - 5.1 mg/dL 11/12 4:48 PM CDT [facility] [address] [facility] Not Available Not Available 12/11/2024 16:15:50 11/13/19 25 11/12/2024 Phosp hate [Mass /volu me] in Serum or Plasm a interpretati on and review of laboratory results Normal Not Available Not Available 11/26 16:15:50 11/13/1911/12/2024 Magne sium [Mass /volu me] in Serum or Plasm a magnesium [mass/volume ] in serum or plasma 1.6 mg/dL low: 1.6mg/ dLhigh : 2.6mg/ dL Magne sium 1.6 1.6 - 2.6 mg/dL 11/12 4:48 PM CDT [facility] [address] [place] Not Available Not [...] - 26 mg/dL 11/12 4:48 PM CDT [facility] [address] Not Available Not Available 12/11/2024 16:15:50 11/13/19 25 11/12/2024 Basic metab olic 1999 panel - Serum or Plasm a creatinine [mass/volume ] in serum or plasma 0.66 mg/dL low: 0.71mg /dLhig h: 1.16mg /dL low Creat inine 0.66 (L) 0.71 - 1.16 mg/dL 11/12 4:48 PM CDT [facility] [address] [facility] Not Available Not Available 12/11/2024 16:15:50 11/13/1911/12/2024 Basic metab olic 2000 panel - Serum or Plasm a sodium [moles/volum e] in serum or plasma 136 mmol/ L low: 136mmo l/Lhig h: 145mmo l/L Sodiu m 136 136 - 145 mmol/ L 11/12 4:48 PM CDT [facility] [address] [facility] [place] Not Available Not Available 12/11/2024 16:15:50 11/13/19 25 11/12/2024 Basic metab olic 2000 panel - Serum or Plasm a potassium [moles/volum e] in serum or plasma 4.4 mmol/ L low: 3.5mmo l/Lhig h: 4.5mmo l/L Potas sium 4.4 3.5 - 4.5 mmol/ L 11/12 4:48 PM CDT [facility] [address] Not Available Not Available 12/11/2024 16:15:50 11/13/19 25 11/12/2024 Basic metab olic 2000 panel - Serum or Plasm a chloride [moles/volum e] in serum or plasma 106 mmol/ L low: 98mmol /Lhigh : 107mmo l/L Chlor sylvia 106 98 - 107 mmol/ L 11/12 4:48 PM CDT [facility] [address] Not Available Not Available 12/11/2024 16:15:50 11/13/19 25 11/12/2024 Basic metab olic 2000 panel - Serum or Plasm a carbon dioxide, total [moles/volum e] in serum or plasma 24 mmol/ L low: 22mmol /Lhigh : 29mmol /L CO2 24 22 - 29 mmol/ L 11/12 4:48 PM CDT [facility] Not Available Not Available 12/11/2024 16:15:50 11/13/1911/12/2024 Basic metab olic 2000 panel - Serum or Plasm a glucose [mass/volume ] in serum or plasma 177 mg/dL low: 70mg/d Lhigh: 99mg/d L high Gluco se 177 (H) 70 - 99 mg/dL 11/12 4:48 PM CDT [facility] Not Available Not Available 12/11/2024 16:15:50 11/13/19 25 11/12/2024 Basic metab olic 1999 panel - Serum or Plasm a calcium [moles/volum e] in serum or plasma 8.5 mg/dL low: 8.4mg/ dLhigh : 10.2mg /dL Calci um 8.5 8.4 - 10.2 mg/dL 11/12 4:48 PM CDT [facility] Not Available Not Available 12/11/2024 16:15:50 11/13/19 25 11/12/2024 Basic metab olic 2000 panel - Serum or Plasm a anion gap 6 low: 6high: 16 Anion Gap 6 6 - 16 11/12 4:48 PM CDT [facility] Not Available Not Available 12/11/2024 16:15:50 11/13/19 25 11/12/2024 Basic metab olic 2000 panel - Serum or Plasm a urea nitrogen/cre atinine [mass ratio] in serum or plasma 12 low: 7high: 23 BUN/C reati nine Ratio 12 7 - 23 11/12 4:48 PM CDT [facility] Not Available Not Available 12/11/2024 16:15:50 11/13/1911/12/2024 Basic metab olic 2000 panel - Serum or Plasm a osmolality calculated 285 text: 275 - 295 mOsm/k g Osmol ality Calcu lated 285 275 - 295 mOsm/ kg 11/12 4:48 PM CDT [facility] Not Available Not Available 12/11/2024 16:15:50 11/13/1911/12/2024 Basic metab olic 2000 panel - Serum or Plasm a glomerular filtration rate [volume rate/area] in serum, plasma or blood by creatinine-b ased formula (CKD-epi 2020)/1.73 sq M text: >=90 mL/min /1.73 m2 eGFR by CKD-E PI >90 >=90 mL/mi n/1.7 3 m2 11/12 4:48 PM CDT [facility] Not Available Not Available 12/11/2024 16:15:50 11/13/1911/12/2024 Basic metab olic 2000 panel - Serum or Plasm a interpretati on and review of laboratory results Abnorm al Not Available Not Available 16:15:50 11/13/1911/12/2024 CBC panel - Blood by Autom ated count leukocytes [#/volume] in blood by automated count 15.2 text: 4.0 - 10.7 x10e9/ L high WBC 15.2 (H) 4.0 - 10.7 x10E9 /L 11/12 4:42 PM CDT [facility] Not Available Not Available 12/11/2024 16:15:50 11/13/1911/12/2024 CBC panel - Blood by Autom ated count erythrocytes [#/volume] in blood by automated count 4.14 text: 4.30 - 5.80 x10e12 /L low RBC Count 4.14 (L) 4.30 - 5.80 x10E1 2/L 11/12 4:42 PM CDT [facility] Not Available Not Available 12/11/2024 16:15:50 11/13/19 25 11/12/2024 CBC panel - Blood by Autom ated count hemoglobin [mass/volume ] in blood 9.8 g/dL low: 13.3g/ dLhigh : 17.5g/ dL low Hemog lobin 9.8 (L) 13.3 - 17.5 g/dL 11/12 4:42 PM T [facility] Not Available Not Available 12/11/2024 16:15:50 11/13/1911/12/2024 CBC panel - Blood by Autom ated count hematocrit [volume fraction] of blood by automated count 30.8 % low: 38.7%h igh: 51.1% low Hemat ocrit 30.8 (L) 38.7 - 51.1 % 11/12 4:42 PM [facility] Not Available Not Available 12/11/2024 16:15:50 11/13/1911/12/2024 CBC panel - Blood by Autom ated count MCV [entitic mean volume] in red blood cells by automated count 74.4 fL low: 80fLhi gh: 98fL low MCV 74.4 (L) 80.0 - 98.0 fL 11/12 4:42 PM [facility] Not Available Not Available 12/11/2024 16:15:50 11/13/19 25 11/12/2024 CBC panel - Blood by Autom ated count MCH [entitic mass] by automated count 23.7 pg low: 26.7pg high: 33.6pg low MCH 23.7 (L) 26.7 - 33.6 pg 11/12 4:42 PM [facility] Not Available Not Available 12/11/2024 16:15:50 11/13/1911/12/2024 CBC panel - Blood by Autom ated count MCHC [entitic mass/volume] in red blood cells by automated count 31.8 g/dL low: 31.7g/ dLhigh : 36.3g/ dL MCHC 31.8 31.7 - 36.3 g/dL 11/12 4:42 PM [facility] Not Available Not Available 12/11/2024 16:15:50 11/13/19 25 11/12/2024 CBC panel - Blood by Autom ated count erythrocyte [distwidth] in red blood cells by automated count 20.5 % low: 11.3%h igh: 14.8% high RDW-C V 20.5 (H) 11.3 - 14.8 % 11/12 4:42 PM [facility] Not Available Not Available 12/11/2024 16:15:50 11/13/19 25 11/12/2024 CBC panel - Blood by Autom ated count platelets [#/volume] in blood by automated count 196 text: 150 - 420 x10e9/ L Plate let Count 196 150 - 420 x10E9 /L 11/12 4:42 PM [facility] Not Available Not Available 12/11/2024 16:15:50 11/13/1911/12/2024 CBC panel - Blood by Autom ated count platelet [entitic mean volume] in blood by automated count MPV 11/12 4:42 PM [facility] Not Available Not Available 12/11/2024 16:15:50 [...] - 99 mg/dL 11/12 2:10 PM [facility] Not Available Not Available 12/11/2024 16:15:50 11/13/19 25 11/12/2024 Gluco se [Mass /volu me] in Arter ial blood specimen source identified Cap Finger stick Speci men Type Cap Finge rstic k 11/12 2:10 PM CDT [facility] [place] Not Available Not Available [...] - 7.45 pH 11/12 12:43 PM CDT [facility] [place] Not Available Not Available 12/11/2024 16:15:38 11/13/19 25 11/12/2024 Gas and Carbo n monox sylvia panel - Arter ial blood oxygen [partial pressure] in arterial blood 181 text: 80 - 100 mmHg high pO2 Arter ial 181 (H) 80 - 100 mmHg 11/12 12:43 PM T [facility] [place] Not Available Not Available 12/11/2024 16:15:38 11/13/19 25 11/12/2024 Gas and [employer] monox sylvia panel - Arter ial blood carbon dioxide [partial pressure] in arterial blood 51 text: 35 - 45 mmHg high pCO2 Arter ial 51 (H) 35 - 45 mmHg 11/12 12:43 PM T [facility] Not Available Not Available 12/11/2024 16:15:38 11/13/19 25 11/12/2024 Gas and Carbo n monox sylvia panel - Arter ial blood bicarbonate [moles/volum e] in arterial blood 25.1 mmol/ L low: 20mmol /Lhigh : 30mmol /L HCO3 Arter ial 25.1 20.0 - 30.0 mmol/ L 11/12 12:43 PM T [facility] [place] Not Available Not Available 12/11/2024 16:15:38 11/13/19 25 11/12/2024 Gas and Carbo n monox sylvia panel - Arter ial blood base excess standard in arterial blood by calculation -1.6 mmol/ L low: -2mmol /Lhigh : 2mmol/ L BE Arter ial -1.6 -2.0 - 2.0 mmol/ L 11/12 12:43 PM [facility] [employer] [facility] [place] Not Available Not Available 12/11/2024 16:15:38 11/13/1911/12/2024 Gas and Carbo n monox sylvia panel - Arter ial blood fractional oxyhemoglobi n in arterial blood 96.1 % Oxyhe moglo bin Arter ial 96.1 % 11/12 12:43 PM [facility] [employer] [facility] [place] Not Available Not Available 12/11/2024 16:15:38 11/13/1911/12/2024 Gas and Carbo n monox sylvia panel - Arter ial blood deoxyhemoglo bin [mass/volume ] in blood text: % Dexoy hemog lobin (HHB) % <1.0 % 11/12 12:43 PM [facility] Not Available Not Available 12/11/2024 16:15:38 11/13/19 25 11/12/2024 Gas and Carbo n monox sylvia panel - Arter ial blood methemoglobi n/hemoglobin .total in blood 0.9 % low: 0%high : 2% Methe moglo bin 0.9 0.0 - 2.0 % 11/12 12:43 PM [facility] [employer] [facility] [place] Not Available Not Available 12/11/2024 16:15:38 11/13/19 25 11/12/2024 Gas and Carbo n monox sylvia panel - Arter ial blood carboxyhemog lobin/hemogl obin.total in blood 3 % low: 0%high : 2% high Carbo xyhem oglob in 3.0 (H) 0.0 - 2.0 % 11/12 12:43 PM CDT [facility] [place] Not Available Not Available 12/11/2024 16:15:38 11/13/19 25 11/12/2024 Gas and Carbo n monox sylvia panel - Arter ial blood oxygen content in arterial blood 13.1 mL/dL text: interp ret within clinic al contex t O2 Ash nt Arter ial 13.1 Inter pret withi n clini isadora ash xt ml/dL 11/12 12:43 PM CDT [facility] [place] Not Available Not Available 12/11/2024 16:15:38 11/13/19 25 11/12/2024 Gas and Carbo n monox sylvia panel - Arter ial blood hemoglobin [mass/volume ] in blood by oximetry 9.4 g/dL low: 12g/dL high: 17.6g/ dL low Hemog lobin by COOX 9.4 (L) 12.0 - 17.6 g/dL 11/12 12:43 PM CDT [facility] [place] Not Available Not Available 12/11/2024 16:15:38 11/13/19 25 11/12/2024 Gas and Carbo n monox sylvia panel - Arter ial blood oxygen saturation in arterial blood 100 % low: 90%hig h: 100% O2 Satur ation Arter ial 100 90 - 100 % 11/12 12:43 PM CDT [facility] [place] Not Available Not Available 12/11/2024 16:15:38 11/13/19 25 11/12/2024 Gas and Carbo n monox sylvia panel - Arter ial blood sodium [moles/volum e] in serum or plasma 131 mmol/ L low: 135mmo l/Lhig h: 145mmo l/L low Sodiu m Whole Blood 131 (L) 135 - 145 mmol/ L 11/12 12:43 PM CDT [facility] [place] Not Available Not Available 12/11/2024 16:15:38 11/13/19 25 11/12/2024 Gas and Carbo n monox sylvia panel - Arter ial blood potassium [moles/volum e] in serum or plasma 4.1 mmol/ L low: 3.5mmo l/Lhig h: 5.5mmo l/L Potas sium Whole Blood 4.1 3.5 - 5.5 mmol/ L 11/12 12:43 PM CDT [facility] [place] Not Available Not Available 12/11/2024 16:15:38 11/13/19 25 11/12/2024 Gas and Carbo n monox sylvia panel - Arter ial blood chloride [moles/volum e] in serum or plasma 105 mmol/ L low: 78mmol /Lhigh : 107mmo l/L Chlor sylvia WB 105 78 - 107 mmol/ L 11/12 12:43 PM CDT [facility] [place] Not Available Not Available 12/11/2024 16:15:38 11/13/19 25 11/12/2024 Gas and Carbo n monox sylvia panel - Arter ial blood calcium.ioni zed [moles/volum e] in blood 1.26 mmol/ L Calci um Ioniz ed 1.26 mmol/ L 11/12 12:43 PM CDT [facility] [place] Not Available Not Available 12/11/2024 16:15:38 11/13/1911/12/2024 Gas and Carbo n monox sylvia panel - Arter ial blood calcium.ioni zed [moles/volum e] adjusted to pH 7.4 in blood 1.21 mmol/ L low: 1.19mm ol/Lhi gh: 1.34mm ol/L Ioniz ed Calci um pH Adjus anibal 1.21 1.19 - 1.34 mmol/ L 11/12 12:43 PM CDT [facility] [place] Not Available Not Available 12/11/2024 16:15:38 11/13/19 25 11/12/2024 Gas and Carbo n monox sylvia panel - Arter ial blood anion gap in blood by calculation 1 mmol/ L low: 6mmol/ Lhigh: 16mmol /L low Anion Gap (AG) Arter ial 1 (L) 6 - 16 mmol/ L 11/12 12:43 PM CDT [facility] [place] Not Available Not Available 12/11/2024 16:15:38 11/13/19 25 11/12/2024 Gas and Carbo n monox sylvia panel - Arter ial blood glucose [mass/volume ] in blood 193 mg/dL low: 70mg/d Lhigh: 99mg/d L high Gluco se WB 193 (H) 70 - 99 mg/dL 11/12 12:43 PM CDT [facility] [place] Not Available Not Available 12/11/2024 16:15:38 11/13/19 25 11/12/2024 Gas and Carbo n monox sylvia panel - Arter ial blood lactate [moles/volum e] in blood 1.3 mmol/ L high: 2mmol/ L Lacti c Acid Whole Blood 1.3 <=2.0 mmol/ L 11/12 12:43 PM CDT [facility] [place] Not Available Not [...] - 7.45 pH 11/12 12:13 PM T [facility] [place] Not Available Not Available 12/11/2024 16:15:49 11/13/19 25 11/12/2024 Gas and Carbo n monox sylvia panel - Arter ial blood oxygen [partial pressure] in arterial blood 185 text: 80 - 100 mmHg high pO2 Arter ial 185 (H) 80 - 100 mmHg 11/12 12:13 PM CDT [facility] [place] Not Available Not Available 12/11/2024 16:15:49 11/13/19 25 11/12/2024 Gas and Carbo n monox sylvia panel - Arter ial blood carbon dioxide [partial pressure] in arterial blood 49 text: 35 - 45 mmHg high pCO2 Arter ial 49 (H) 35 - 45 mmHg 11/12 12:13 PM T [facility] [employer] [facility] [place] Not Available Not Available 12/11/2024 16:15:49 11/13/19 25 11/12/2024 Gas and Carbo n monox sylvia panel - Arter ial blood bicarbonate [moles/volum e] in arterial blood 24.7 mmol/ L low: 20mmol /Lhigh : 30mmol /L HCO3 Arter ial 24.7 20.0 - 30.0 mmol/ L 11/12 12:13 PM T [facility] [employer] [facility] [place] Not Available Not Available 12/11/2024 16:15:49 11/13/1911/12/2024 Gas and Carbo n monox sylvia panel - Arter ial blood base excess standard in arterial blood by calculation -1.7 mmol/ L low: -2mmol /Lhigh : 2mmol/ L BE Arter ial -1.7 -2.0 - 2.0 mmol/ L 11/12 12:13 PM T [facility] [employer] [facility] [place] Not Available Not Available 12/11/2024 16:15:49 11/13/1911/12/2024 Gas and Carbo n monox sylvia panel - Arter ial blood fractional oxyhemoglobi n in arterial blood 96 % Oxyhe moglo bin Arter ial 96.0 % 11/12 12:13 PM [facility] [employer] [facility] [place] Not Available Not Available 12/11/2024 16:15:49 11/13/1911/12/2024 Gas and Carbo n monox sylvia panel - Arter ial blood deoxyhemoglo bin [mass/volume ] in blood text: % Dexoy hemog lobin (HHB) % <1.0 % 11/12 12:13 PM [facility] [employer] [facility] [place] Not Available Not Available 12/11/2024 16:15:49 11/13/19 25 11/12/2024 Gas and Carbo n monox sylvia panel - Arter ial blood methemoglobi n/hemoglobin .total in blood low: 0%high : 2% Methe moglo bin <0.8 0.0 - 2.0 % 11/12 12:13 PM CDT [facility] [place] Not Available Not Available 12/11/2024 16:15:49 11/13/19 25 11/12/2024 Gas and Carbo n monox sylvia panel - Arter ial blood carboxyhemog lobin/hemogl obin.total in blood 2.9 % low: 0%high : 2% high Carbo xyhem oglob in 2.9 (H) 0.0 - 2.0 % 11/12 12:13 PM CDT [facility] [place] Not Available Not Available 12/11/2024 16:15:49 11/13/19 25 11/12/2024 Gas and Carbo n monox sylvia panel - Arter ial blood oxygen content in arterial blood 12.1 mL/dL text: interp ret within clinic al contex t O2 Ash nt Arter ial 12.1 Inter pret withi n clini isadora ash xt ml/dL 11/12 12:13 PM CDT [facility] [place] Not Available Not Available 12/11/2024 16:15:49 11/13/1911/12/2024 Gas and Carbo n monox sylvia panel - Arter ial blood hemoglobin [mass/volume ] in blood by oximetry 8.6 g/dL low: 12g/dL high: 17.6g/ dL low Hemog lobin by COOX 8.6 (L) 12.0 - 17.6 g/dL 11/12 12:13 PM CDT [facility] [place] Not Available Not Available 12/11/2024 16:15:49 11/13/19 25 11/12/2024 Gas and Carbo n monox sylvia panel - Arter ial blood oxygen saturation in arterial blood 99 % low: 90%hig h: 100% O2 Satur ation Arter ial 99 90 - 100 % 11/12 12:13 PM CDT [facility] [place] Not Available Not Available 12/11/2024 16:15:49 11/13/19 25 11/12/2024 Gas and Carbo n monox sylvia panel - Arter ial blood sodium [moles/volum e] in serum or plasma 133 mmol/ L low: 135mmo l/Lhig h: 145mmo l/L low Sodiu m Whole Blood 133 (L) 135 - 145 mmol/ L 11/12 12:13 PM CDT [facility] [place] Not Available Not Available 12/11/2024 16:15:49 11/13/19 25 11/12/2024 Gas and Carbo n monox sylvia panel - Arter ial blood potassium [moles/volum e] in serum or plasma 3.8 mmol/ L low: 3.5mmo l/Lhig h: 5.5mmo l/L Potas sium Whole Blood 3.8 3.5 - 5.5 mmol/ L 11/12 12:13 PM CDT [facility] [place] Not Available Not Available 12/11/2024 16:15:49 11/13/19 25 11/12/2024 Gas and Carbo n monox sylvia panel - Arter ial blood chloride [moles/volum e] in serum or plasma 102 mmol/ L low: 78mmol /Lhigh : 107mmo l/L Chlor sylvia WB 102 78 - 107 mmol/ L 11/12 12:13 PM CDT [facility] [employer] [facility] [place] Not Available Not Available 12/11/2024 16:15:49 11/13/19 25 11/12/2024 Gas and Carbo n monox sylvia panel - Arter ial blood calcium.ioni zed [moles/volum e] in blood 1.24 mmol/ L Calci um Ioniz ed 1.24 mmol/ L 11/12 12:13 PM CDT [facility] [place] Not Available Not Available 12/11/2024 16:15:49 11/13/19 25 11/12/2024 Gas and Carbo n monox sylvia panel - Arter ial blood calcium.ioni zed [moles/volum e] adjusted to pH 7.4 in blood 1.2 mmol/ L low: 1.19mm ol/Lhi gh: 1.34mm ol/L Ioniz ed Calci um pH Adjus anibal 1.20 1.19 - 1.34 mmol/ L 11/12 12:13 PM CDT [facility] [place] Not Available Not Available 12/11/2024 16:15:49 11/13/19 25 11/12/2024 Gas and Carbo n monox sylvia panel - Arter ial blood anion gap in blood by calculation 6 mmol/ L low: 6mmol/ Lhigh: 16mmol /L Anion Gap (AG) Arter ial 6 6 - 16 mmol/ L 11/12 12:13 PM T [facility] [place] Not Available Not Available 12/11/2024 16:15:49 11/13/19 25 11/12/2024 Gas and Carbo n monox sylvia panel - Arter ial blood glucose [mass/volume ] in blood 175 mg/dL low: 70mg/d Lhigh: 99mg/d L high Gluco se WB 175 (H) 70 - 99 mg/dL 11/12 12:13 PM [facility] Not Available 12/11/2024 16:15:49 11/13/19 25 11/12/2024 Gas and Carbo n monox sylvia panel - Arter ial blood lactate [moles/volum e] in blood 1.2 mmol/ L high: 2mmol/ L Lacti c Acid Whole Blood 1.2 <=2.0 mmol/ L 11/12 12:13 PM T [facility] [employer] [facility] Not Available Not Available 12/11/2024 16:15:49 [...] 7.35 - 7.45 pH 11/12 10:57 AM CDT [facility] [employer] [facility] Not Available Not Available 12/11/2024 16:15:49 11/13/19 25 11/12/2024 Gas and Carbo n monox sylvia panel - Arter ial blood oxygen [partial pressure] in arterial blood 186 text: 80 - 100 mmHg high pO2 Arter ial 186 (H) 80 - 100 mmHg 11/12 10:57 AM [facility] [employer] [facility] [place] Not Available Not Available 12/11/2024 16:15:49 11/13/19 25 11/12/2024 Gas and Carbo n monox sylvia panel - Arter ial blood carbon dioxide [partial pressure] in arterial blood 47 text: 35 - 45 mmHg high pCO2 Arter ial 47 (H) 35 - 45 mmHg 11/12 10:57 AM [facility] [employer] [facility] Not Available Not Available 12/11/2024 16:15:49 11/13/1911/12/2024 Gas and Carbo n monox sylvia panel - Arter ial blood bicarbonate [moles/volum e] in arterial blood 25.9 mmol/ L low: 20mmol /Lhigh : 30mmol /L HCO3 Arter ial 25.9 20.0 - 30.0 mmol/ L 11/12 10:57 AM [facility] [employer] [facility] Not Available Not Available 12/11/2024 16:15:49 11/13/19 25 11/12/2024 Gas and Carbo n monox sylvia panel - Arter ial blood base excess standard in arterial blood by calculation 0.1 mmol/ L low: -2mmol /Lhigh : 2mmol/ L BE Arter ial 0.1 -2.0 - 2.0 mmol/ L 11/12 10:57 AM [facility] [employer] [facility] Not Available Not Available 12/11/2024 16:15:49 11/13/19 25 11/12/2024 Gas and Carbo n monox sylvia panel - Arter ial blood fractional oxyhemoglobi n in arterial blood 95.4 % Oxyhe moglo bin Arter ial 95.4 % 11/12 10:57 AM [facility] [employer] [facility] [place] Not Available Not Available 12/11/2024 16:15:49 11/13/19 25 11/12/2024 Gas and Carbo n monox sylvia panel - Arter ial blood deoxyhemoglo bin [mass/volume ] in blood text: % Dexoy hemog lobin (HHB) % <1.0 % 11/12 10:57 AM CDT [facility] [place] Not Available Not Available 12/11/2024 16:15:49 11/13/19 25 11/12/2024 Gas and Carbo n monox sylvia panel - Arter ial blood methemoglobi n/hemoglobin .total in blood low: 0%high : 2% Methe moglo bin <0.8 0.0 - 2.0 % 11/12 10:57 AM CDT [facility] [place] Not Available Not Available 12/11/2024 16:15:49 11/13/1911/12/2024 Gas and Carbo n monox sylvia panel - Arter ial blood carboxyhemog lobin/hemogl obin.total in blood 3.7 % low: 0%high : 2% high Carbo xyhem oglob in 3.7 (H) 0.0 - 2.0 % 11/12 10:57 AM CDT [facility] [place] Not Available Not Available 12/11/2024 16:15:49 11/13/1911/12/2024 Gas and Carbo n monox sylvia panel - Arter ial blood oxygen content in arterial blood 11.2 mL/dL text: interp ret within clinic al contex t O2 Ash nt Arter ial 11.2 Inter pret withi n clini isadora ash xt ml/dL 11/12 10:57 AM CDT [facility] [place] Not Available Not Available 12/11/2024 16:15:49 11/13/19 25 11/12/2024 Gas and Carbo n monox sylvia panel - Arter ial blood hemoglobin [mass/volume ] in blood by oximetry 8 g/dL low: 12g/dL high: 17.6g/ dL low Hemog lobin by COOX 8.0 (L) 12.0 - 17.6 g/dL 11/12 10:57 AM CDT [facility] [place] Not Available Not Available 12/11/2024 16:15:49 11/13/19 25 11/12/2024 Gas and Carbo n monox sylvia panel - Arter ial blood oxygen saturation in arterial blood 100 % low: 90%hig h: 100% O2 Satur ation Arter ial 100 90 - 100 % 11/12 10:57 AM CDT [facility] [place] Not Available Not Available 12/11/2024 16:15:49 11/13/19 25 11/12/2024 Gas and Carbo n monox sylvia panel - Arter ial blood sodium [moles/volum e] in serum or plasma 132 mmol/ L low: 135mmo l/Lhig h: 145mmo l/L low Sodiu m Whole Blood 132 (L) 135 - 145 mmol/ L 11/12 10:57 AM CDT [facility] [place] Not Available Not Available 12/11/2024 16:15:49 11/13/1911/12/2024 Gas and Carbo n monox sylvia panel - Arter ial blood potassium [moles/volum e] in serum or plasma 3.5 mmol/ L low: 3.5mmo l/Lhig h: 5.5mmo l/L Potas sium Whole Blood 3.5 3.5 - 5.5 mmol/ L 11/12 10:57 AM CDT [facility] [place] Not Available Not Available 12/11/2024 16:15:49 11/13/1911/12/2024 Gas and Carbo n monox sylvia panel - Arter ial blood chloride [moles/volum e] in serum or plasma 103 mmol/ L low: 78mmol /Lhigh : 107mmo l/L Chlor sylvia WB 103 78 - 107 mmol/ L 11/12 10:57 AM T [facility] [place] Not Available Not Available 12/11/2024 16:15:49 11/13/19 25 11/12/2024 Gas and Carbo n monox sylvia panel - Arter ial blood calcium.ioni zed [moles/volum e] in blood 1.18 mmol/ L Calci um Ioniz ed 1.18 mmol/ L 11/12 10:57 AM T [facility] [place] Not Available Not Available 12/11/2024 16:15:49 03/18/11/12/2024 Gas and Carbo n monox sylvia panel - Arter ial blood calcium.ioni zed [moles/volum e] adjusted to pH 7.4 in blood 1.16 mmol/ L low: 1.19mm ol/Lhi gh: 1.34mm ol/L low Ioniz ed Calci um pH Adjus anibal 1.16 (L) 1.19 - 1.34 mmol/ L 11/12 10:57 AM CDT [facility] [place] Not Available Not Available 12/11/2024 16:15:49 11/13/19 25 11/12/2024 Gas and Carbo n monox sylvia panel - Arter ial blood anion gap in blood by calculation 3 mmol/ L low: 6mmol/ Lhigh: 16mmol /L low Anion Gap (AG) Arter ial 3 (L) 6 - 16 mmol/ L 11/12 10:57 AM CDT [facility] [employer] [facility] [place] Not Available Not Available 12/11/2024 16:15:49 11/13/19 25 11/12/2024 Gas and Carbo n monox sylvia panel - Arter ial blood glucose [mass/volume ] in blood 208 mg/dL low: 70mg/d Lhigh: 99mg/d L high Gluco se WB 208 (H) 70 - 99 mg/dL 11/12 10:57 AM CDT [facility] [employer] [facility] [place] Not Available Not Available 12/11/2024 16:15:49 11/13/19 25 11/12/2024 Gas and Carbo n monox sylvia panel - Arter ial blood lactate [moles/volum e] in blood 1.1 mmol/ L high: 2mmol/ L Lacti c Acid Whole Blood 1.1 <=2.0 mmol/ L 11/12 10:57 AM CDT [facility] [place] Not Available Not [...] - 99 mg/dL 11/12 9:48 AM CDT [facility] [place] Not Available Not Available 11/12/2024 11:10:03 11/13/1911/12/2024 Gluco se [Mass /volu me] in Arter ial blood specimen source identified Venous Speci men Type Venou s 11/12 9:48 AM CDT [facility] [place] Not Available Not Available 11/12/2024 11:10:03 11/13/1911/12/2024 Gluco se [Mass /volu me] in Arter ial blood interpretati on and review of laboratory results Abnorm al Not Available Not Available 11:10:03 11/13/1911/12/2024 Blood type and Indir ect antib brigid scree n panel - Blood blood group antibody screen [presence] in serum or plasma NEG Antib brigid Scree n NEG 11/12 7:59 AM T [facility] Not Available Not Available 11/12/2024 11:10:03 11/13/19 25 11/12/2024 Blood type and Indir ect antib brigid scree n panel - Blood ABO and Rh group [type] in blood O POS ABO Rh O POS 11/12 7:59 AM T [facility] Not Available Not Available 11/12/2024 11:10:03 11/14/19 25 11/13/2024 CBC W Auto Diffe renti al panel - Blood leukocytes [#/volume] in blood by automated count 12.8 text: 4.0 - 10.7 x10e9/ L high WBC 12.8 (H) 4.0 - 10.7 x10E9 /L 11/13 5:48 PM CDT [facility] [place] Not Available Not Available 12/11/2024 16:15:51 11/14/19 25 11/13/2024 CBC W Auto Diffe renti al panel - Blood erythrocytes [#/volume] in blood by automated count 4.13 text: 4.30 - 5.80 x10e12 /L low RBC Count 4.13 (L) 4.30 - 5.80 x10E1 2/L 11/13 5:48 PM CDT [facility] [place] Not Available Not Available 12/11/2024 16:15:51 11/14/19 25 11/13/2024 CBC W Auto Diffe rose minaya panel - Blood hemoglobin [mass/volume ] in blood 10.5 g/dL low: 13.3g/ dLhigh : 17.5g/ dL low Hemog lobin 10.5 (L) 13.3 - 17.5 g/dL 11/13 5:48 PM CDT [facility] Not Available Not Available 12/11/2024 16:15:51 11/14/19 25 11/13/2024 CBC W Auto Diffnorm minaya panel - Blood hematocrit [volume fraction] of blood by automated count 32 % low: 38.7%h igh: 51.1% low Hemat ocrit 32.0 (L) 38.7 - 51.1 % 11/13 5:48 PM CDT [facility] [address] [facility] Not Available Not Available 12/11/2024 16:15:51 11/14/1911/13/2024 CBC W Auto Diffnorm minaya panel - Blood MCV [entitic mean volume] in red blood cells by automated count 77.5 fL low: 80fLhi gh: 98fL low MCV 77.5 (L) 80.0 - 98.0 fL 11/13 5:48 PM CDT [facility] [address] [facility] Not Available Not Available 12/11/2024 16:15:51 11/14/19 25 11/13/2024 CBC W Auto Diffe rose minaya panel - Blood MCH [entitic mass] by automated count 25.4 pg low: 26.7pg high: 33.6pg low MCH 25.4 (L) 26.7 - 33.6 pg 11/13 5:48 PM CDT [facility] [address] [facility] Not Available Not Available 12/11/2024 16:15:51 11/14/19 25 11/13/2024 CBC W Auto Diffe renti al panel - Blood MCHC [entitic mass/volume] in red blood cells by automated count 32.8 g/dL low: 31.7g/ dLhigh : 36.3g/ dL MCHC 32.8 31.7 - 36.3 g/dL 11/13 5:48 PM CDT [facility] [address] [facility] Not Available Not Available 12/11/2024 16:15:51 11/14/19 25 11/13/2024 CBC W Auto Diffe renti al panel - Blood erythrocyte [distwidth] in red blood cells by automated count 19.7 % low: 11.3%h igh: 14.8% high RDW-C V 19.7 (H) 11.3 - 14.8 % 11/13 5:48 PM CDT [facility] [address] [facility] Not Available Not Available 12/11/2024 16:15:51 11/14/1911/13/2024 CBC W Auto Diffe renti al panel - Blood platelets [#/volume] in blood by automated count 140 text: 150 - 420 x10e9/ L low Plate let Count 140 (L) 150 - 420 x10E9 /L 11/13 5:48 PM CDT [facility] [address] [facility] Not Available Not [...] - 99 mg/dL 11/13 5:09 PM CDT [facility] [address] [facility] Not Available Not Available 12/11/2024 16:15:51 11/14/19 25 11/13/2024 Gluco se [Mass /volu me] in Arter ial blood specimen source identified Venous Speci men Type Venou s 11/13 5:09 PM [facility] Not Available Not Available 12/11/2024 16:15:51 11/14/1911/13/2024 CBC panel - Blood by Autom ated count leukocytes [#/volume] in blood by automated count 9.2 text: 4.0 - 10.7 x10e9/ L WBC 9.2 4.0 - 10.7 x10E9 /L 11/13 1:32 PM [facility] Not Available 12/11/2024 16:15:38 11/14/1911/13/2024 CBC panel - Blood by Autom ated count erythrocytes [#/volume] in blood by automated count 2.73 text: 4.30 - 5.80 x10e12 /L low RBC Count 2.73 (L) 4.30 - 5.80 x10E1 2/L 11/13 1:32 PM [facility]T [facility] Not Available Not Available 12/11/2024 16:15:38 11/14/1911/13/2024 CBC panel - Blood by Autom ated count hemoglobin [mass/volume ] in blood 6.4 g/dL low: 13.3g/ dLhigh : 17.5g/ dL low Hemog lobin 6.4 (L) 13.3 - 17.5 g/dL 11/13 1:32 PM [facility] Not Available 12/11/2024 16:15:38 11/14/1911/13/2024 CBC panel - Blood by Autom ated count hematocrit [volume fraction] of blood by automated count 20.4 % low: 38.7%h igh: 51.1% low Hemat ocrit 20.4 (L) 38.7 - 51.1 % 11/13 1:32 PM [facility] Not Available 12/11/2024 16:15:38 11/14/19 25 11/13/2024 CBC panel - Blood by Autom ated count MCV [entitic mean volume] in red blood cells by automated count 74.7 fL low: 80fLhi gh: 98fL low MCV 74.7 (L) 80.0 - 98.0 fL 11/13 1:32 PM [facility]T [facility] Not Available Not Available 12/11/2024 16:15:38 11/14/19 25 11/13/2024 CBC panel - Blood by Autom ated count MCH [entitic mass] by automated count 23.4 pg low: 26.7pg high: 33.6pg low MCH 23.4 (L) 26.7 - 33.6 pg 11/13 1:32 PM CDT [facility] Not Available Not Available 12/11/2024 16:15:38 11/14/19 25 11/13/2024 CBC panel - Blood by Autom ated count MCHC [entitic mass/volume] in red blood cells by automated count 31.4 g/dL low: 31.7g/ dLhigh : 36.3g/ dL low MCHC 31.4 (L) 31.7 - 36.3 g/dL 11/13 1:32 PM CDT [facility] Not Available Not Available 12/11/2024 16:15:38 11/14/1911/13/2024 CBC panel - Blood by Autom ated count erythrocyte [distwidth] in red blood cells by automated count 20.8 % low: 11.3%h igh: 14.8% high RDW-C V 20.8 (H) 11.3 - 14.8 % 11/13 1:32 PM CDT [facility] Not Available Not Available 12/11/2024 16:15:38 11/14/19 25 11/13/2024 CBC panel - Blood by Autom ated count platelets [#/volume] in blood by automated count 114 text: 150 - 420 x10e9/ L low Plate let Count 114 (L) 150 - 420 x10E9 /L 11/13 1:32 PM [facility] Available Not Available 12/11/2024 16:15:38 11/14/19 25 11/13/2024 CBC panel - Blood by Autom ated count platelet [entitic mean volume] in blood by automated count 9.2 fL low: 7.8fLh igh: 11.4fL MPV 9.2 7.8 - 11.4 fL 11/13 1:32 PM CDT [facility] Not Available Not [...] - 99 mg/dL 11/13 11:16 AM CDT [facility] Not Available Not Available 12/11/2024 16:15:51 11/14/19 25 11/13/2024 Gluco se [Mass /volu me] in Arter ial blood specimen source identified Cap Finger stick Speci men Type Cap Finge rstic k 11/13 11:16 AM CDT [facility] Not Available Not [...] - 99 mg/dL 11/13 11:16 AM CDT [facility] Not Available Not Available 12/11/2024 16:15:51 11/14/19 25 11/13/2024 Gluco se [Mass /volu me] in Arter ial blood specimen source identified Cap Finger stick Speci men Type Cap Finge rstic k 03/19 /2025 11:16 AM CDT [facility] Not Available Not Available 12/11/2024 16:15:51 11/14/19 25 11/13/2024 Gluco se [Mass /volu me] in Arter ial blood glucose [mass/volume ] in capillary blood by glucometer 66 mg/dL low: 70mg/d Lhigh: 99mg/d L low Gluco se WB/PO C 66 (L) 70 - 99 mg/dL 11/13 9:37 AM CDT [facility] Not Available Not Available 12/11/2024 16:15:51 11/14/19 25 11/13/2024 Gluco se [Mass /volu me] in Arter ial blood specimen source identified Cap Finger stick Speci men Type Cap Finge rstic k 11/13 9:37 AM CDT [facility] Not Available Not [...] - 99 mg/dL 11/13 9:37 AM CDT [facility] Not Available Not Available 12/11/2024 16:15:51 11/14/19 25 11/13/2024 Gluco se [Mass /volu me] in Arter ial blood specimen source identified Cap Finger stick Speci men Type Cap Finge rstic k 11/13 9:37 AM CDT [facility] Not Available Not [...] - 5.1 mg/dL 11/13 4:17 AM CDT [facility] Not Available Not [...] - 10.7 x10E9 /L 11/13 4:03 AM CDT [facility] Not Available Not Available 12/11/2024 16:15:50 11/14/1911/13/2024 CBC W Auto Diffe renti al panel - Blood erythrocytes [#/volume] in blood by automated count 3.95 text: 4.30 - 5.80 x10e12 /L low RBC Count 3.95 (L) 4.30 - 5.80 x10E1 2/L 11/13 4:03 AM CDT [facility] Not Available Not Available 12/11/2024 16:15:50 11/14/1911/13/2024 CBC W Auto Diffe renti al panel - Blood hemoglobin [mass/volume ] in blood 9.3 g/dL low: 13.3g/ dLhigh : 17.5g/ dL low Hemog lobin 9.3 (L) 13.3 - 17.5 g/dL 11/13 4:03 AM CDT [facility] Not Available Not Available 12/11/2024 16:15:50 11/14/19 25 11/13/2024 CBC W Auto Diffe renti al panel - Blood hematocrit [volume fraction] of blood by automated count 28.8 % low: 38.7%h igh: 51.1% low Hemat ocrit 28.8 (L) 38.7 - 51.1 % 11/13 4:03 AM [facility]T [facility] Not Available Not Available 12/11/2024 16:15:50 11/14/19 25 11/13/2024 CBC W Auto Diffe renti al panel - Blood MCV [entitic mean volume] in red blood cells by automated count 72.9 fL low: 80fLhi gh: 98fL low MCV 72.9 (L) 80.0 - 98.0 fL 11/13 4:03 AM T [facility] Not Available Not Available 12/11/2024 16:15:50 11/14/19 25 11/13/2024 CBC W Auto Diffe renti al panel - Blood MCH [entitic mass] by automated count 23.5 pg low: 26.7pg high: 33.6pg low MCH 23.5 (L) 26.7 - 33.6 pg 11/13 4:03 AM T [facility] Not Available Not Available 12/11/2024 16:15:50 11/14/19 25 11/13/2024 CBC W Auto Diffe renti al panel - Blood MCHC [entitic mass/volume] in red blood cells by automated count 32.3 g/dL low: 31.7g/ dLhigh : 36.3g/ dL MCHC 32.3 31.7 - 36.3 g/dL 11/13 4:03 AM T [facility] Not Available Not Available 12/11/2024 16:15:50 11/14/19 25 11/13/2024 CBC W Auto Diffe renti al panel - Blood erythrocyte [distwidth] in red blood cells by automated count 20.4 % low: 11.3%h igh: 14.8% high RDW-C V 20.4 (H) 11.3 - 14.8 % 11/13 4:03 AM T [facility] Not Available Not Available 12/11/2024 16:15:50 11/14/19 25 11/13/2024 CBC W Auto Diffe renti al panel - Blood platelets [#/volume] in blood by automated count 175 text: 150 - 420 x10e9/ L Plate let Count 175 150 - 420 x10E9 /L 11/13 4:03 AM CDT [facility] Not Available Not Available 12/11/2024 16:15:50 11/14/19 25 11/13/2024 CBC W Auto Diffe renti al panel - Blood platelet [entitic mean volume] in blood by automated count MPV 11/13 4:03 AM CDT [facility] Not Available Not Available 12/11/2024 16:15:50 11/14/1911/13/2024 CBC W Auto Diffe renti al panel - Blood neutrophils/ leukocytes in blood by automated count 79.9 % low: 41%hig h: 74% high Neutr ophil % 79.9 (H) 41.0 - 74.0 % 11/13 4:03 AM CDT [facility] Not Available Not Available 12/11/2024 16:15:50 11/14/1911/13/2024 CBC W Auto Diffe renti al panel - Blood lymphocytes/ leukocytes in blood by automated count 6.7 % low: 17%hig h: 47% low Lymph ocyte % 6.7 (L) 17.0 - 47.0 % 11/13 4:03 AM CDT [facility] Not Available Not Available 12/11/2024 16:15:50 11/14/19 25 11/13/2024 CBC W Auto Diffe renti al panel - Blood monocytes/le ukocytes in blood by automated count 12.8 % low: 3%high : 11% high Monoc yte % 12.8 (H) 3.0 - 11.0 % 11/13 4:03 AM CDT [facility] Not Available Not Available 12/11/2024 16:15:50 11/14/19 25 11/13/2024 CBC W Auto Diffe renti al panel - Blood eosinophils/ leukocytes in blood by automated count 0.2 % low: 0%high : 7% Eosin ophil % 0.2 0.0 - 7.0 % 11/13 4:03 AM CDT [facility] [employer] [facility] Not Available Not Available 12/11/2024 16:15:50 11/14/19 25 11/13/2024 CBC W Auto Diffe renti al panel - Blood basophils/le ukocytes in blood by automated count 0.1 % low: 0%high : 1.6% Basop hil % 0.1 0.0 - 1.6 % 11/13 4:03 AM T [facility] [employer] [facility] Not Available Not Available 12/11/2024 16:15:50 11/14/1911/13/2024 CBC W Auto Diffe renti al panel - Blood immature granulocytes /leukocytes in blood by automated count 0.3 % low: 0%high : 1% Immat ure Granu locyt es % 0.3 0.0 - 1.0 % 11/13 4:03 AM T [facility] [employer] [facility] Not Available Not Available 12/11/2024 16:15:50 11/14/19 25 11/13/2024 CBC W Auto Diffe renti al panel - Blood neutrophils [#/volume] in blood by automated count 9.24 text: 1.60 - 7.50 x10e9/ L high Neutr ophil Absol [place] 9.24 (H) 1.60 - 7.50 x10E9 /L 11/13 4:03 AM T [facility] [employer] [facility] Not Available Not Available 12/11/2024 16:15:50 11/14/19 25 11/13/2024 CBC W Auto Diffe renti al panel - Blood lymphocytes [#/volume] in blood by automated count 0.77 text: 1.00 - 4.40 x10e9/ L low Lymph ocyte Absol [place] 0.77 (L) 1.00 - 4.40 x10E9 /L 11/13 4:03 AM CDT [facility] [employer] [facility] Not Available Not Available 12/11/2024 16:15:50 11/14/19 25 11/13/2024 CBC W Auto Diffe renti al panel - Blood monocytes [#/volume] in blood by automated count 1.48 text: 0.15 - 1.00 x10e9/ L high Monoc yte Absol [place] 1.48 (H) 0.15 - 1.00 x10E9 /L 11/13 4:03 AM CDT [facility] Not Available Not Available 12/11/2024 16:15:50 11/14/19 25 11/13/2024 CBC W Auto Diffe renti al panel - Blood eosinophils [#/volume] in blood 0.02 text: 0.00 - 0.60 x10e9/ L Eosin ophil Absol [place] 0.02 0.00 - 0.60 x10E9 /L 11/13 4:03 AM CDT [facility] [employer] [facility] Not Available Not Available 12/11/2024 16:15:50 11/14/1911/13/2024 CBC W Auto Diffe renti al panel - Blood basophils [#/volume] in blood by automated count 0.01 text: 0.00 - 0.13 x10e9/ L Basop hil Absol [place] 0.01 0.00 - 0.13 x10E9 /L 11/13 4:03 AM CDT [facility] Not Available Not [...] - 2.6 mg/dL 11/13 4:17 AM CDT [facility] Not Available Not Available 12/11/2024 16:15:50 11/14/19 25 11/13/2024 Magne sium [Mass /volu me] in Serum or Plasm a interpretati on and review of laboratory results Normal Not Available Not Available 11/26 16:15:50 11/14/1911/13/2024 Basic metab olic 1999 panel - Serum or Plasm a urea nitrogen [mass/volume ] in serum or plasma 12 mg/dL low: 7mg/dL high: 26mg/d L BUN 12 7 - 26 mg/dL 11/13 4:19 AM T [facility] Not Available Not Available 12/11/2024 16:15:50 11/14/19 25 11/13/2024 Basic metab olic 1999 panel - Serum or Plasm a creatinine [mass/volume ] in serum or plasma 1.03 mg/dL low: 0.71mg /dLhig h: 1.16mg /dL Creat inine 1.03 0.71 - 1.16 mg/dL 11/13 4:19 AM T [facility] Not Available Not Available 12/11/2024 16:15:50 11/14/1911/13/2024 Basic metab olic 1999 panel - Serum or Plasm a sodium [moles/volum e] in serum or plasma 137 mmol/ L low: 136mmo l/Lhig h: 145mmo l/L Sodiu m 137 136 - 145 mmol/ L 11/13 4:19 AM T [facility] Not Available Not Available 12/11/2024 16:15:50 11/14/1911/13/2024 Basic metab olic 1999 panel - Serum or Plasm a potassium [moles/volum e] in serum or plasma 4 mmol/ L low: 3.5mmo l/Lhig h: 4.5mmo l/L Potas sium 4.0 3.5 - 4.5 mmol/ L 11/13 4:19 AM T [facility] Not Available Not Available 12/11/2024 16:15:50 11/14/19 25 11/13/2024 Basic metab olic 1999 panel - Serum or Plasm a chloride [moles/volum e] in serum or plasma 107 mmol/ L low: 98mmol /Lhigh : 107mmo l/L Chlor sylvia 107 98 - 107 mmol/ L 11/13 4:19 AM CDT [facility] Not Available Not Available 12/11/2024 16:15:50 11/14/1911/13/2024 Basic metab olic 1999 panel - Serum or Plasm a carbon dioxide, total [moles/volum e] in serum or plasma 23 mmol/ L low: 22mmol /Lhigh : 29mmol /L CO2 23 22 - 29 mmol/ L 11/13 4:19 AM CDT [facility] Not Available Not Available 12/11/2024 16:15:50 11/14/19 25 11/13/2024 Basic metab olic 1999 panel - Serum or Plasm a glucose [mass/volume ] in serum or plasma 81 mg/dL low: 70mg/d Lhigh: 99mg/d L Gluco se 81 70 - 99 mg/dL 11/13 4:19 AM CDT [facility] Not Available Not Available 12/11/2024 16:15:50 11/14/1911/13/2024 Basic metab olic 1999 panel - Serum or Plasm a calcium [moles/volum e] in serum or plasma 8 mg/dL low: 8.4mg/ dLhigh : 10.2mg /dL low Calci um 8.0 (L) 8.4 - 10.2 mg/dL 11/13 4:19 AM CDT [facility] Not Available Not Available 12/11/2024 16:15:50 11/14/1911/13/2024 Basic metab olic 1999 panel - Serum or Plasm a anion gap 7 low: 6high: 16 Anion Gap 7 6 - 16 11/13 4:19 AM CDT [facility] Not Available Not Available 12/11/2024 16:15:50 11/14/19 25 11/13/2024 Basic metab olic 1999 panel - Serum or Plasm a urea nitrogen/cre atinine [mass ratio] in serum or plasma 12 low: 7high: 23 BUN/C reati nine Ratio 12 7 - 23 11/13 4:19 AM CDT [facility] Not Available Not Available 12/11/2024 16:15:50 11/14/19 25 11/13/2024 Basic metab olic 2000 panel - Serum or Plasm a osmolality calculated 283 text: 275 - 295 mOsm/k g Osmol coral [place] lated 283 275 - 295 mOsm/ kg 11/13 4:19 AM T [employer] [facility] Not Available Not Available 12/11/2024 16:15:50 11/14/19 25 11/13/2024 Basic metab olic 2000 panel - Serum or Plasm a glomerular filtration rate [volume rate/area] in serum, plasma or blood by creatinine-b ased formula (CKD-epi 2020)/1.73 sq M 79 text: >=90 mL/min /1.73 m2 low eGFR by CKD-E PI 79 (L) >=90 mL/mi n/1.7 3 m2 11/13 4:19 AM T [employer] [facility] Not Available Not Available 12/11/2024 16:15:50 11/14/19 25 11/13/2024 Basic metab olic 2000 panel - Serum or Plasm a interpretati on and review of laboratory results Abnorm al Not Available Not Available 16:15:50 11/14/1911/13/2024 Hemog lobin A1c/H emogl obin. total in Blood hemoglobin A1C/hemoglob in.total in blood 6.9 % high: 5.6% high Hemog lobin A1c 6.9 (H) <=5.6 % 11/13 10:01 AM T [employer] [facility] Not Available Not Available 12/11/2024 16:15:38 11/14/1911/13/2024 Hemog lobin A1c/H emogl obin. total in Blood glucose mean value [mass/volume ] in blood estimated from glycated hemoglobin 151 mg/dL Estim ated [place] Gluco se 151 mg/dL 11/13 10:01 AM [employer] [facility] Not Available Not Available 12/11/2024 [...] - 99 mg/dL 11/15 12:40 PM CDT [facility] Not Available Not Available 12/11/2024 16:15:52 11/15/19 25 11/15/2024 Gluco se [Mass /volu me] in Arter ial blood specimen source identified Cap Finger stick Speci men Type Cap Finge rstic k 11/15 12:40 PM CDT [facility] Not Available Not [...] - 99 mg/dL 11/15 12:40 PM CDT [facility] Not Available Not Available 12/11/2024 16:15:52 11/15/19 25 11/15/2024 Gluco se [Mass /volu me] in Arter ial blood specimen source identified Cap Finger stick Speci men Type Cap Finge rstic k 11/15 12:40 PM CDT [facility] Not Available Not Available 12/11/2024 16:15:52 11/15/19 25 11/15/2024 Gluco se [Mass /volu me] in Arter ial blood interpretati on and review of laboratory results Abnorm al Not Available Not Available 16:15:52 11/15/1911/15/2024 Gluco se [Mass /volu me] in Arter ial blood glucose [mass/volume ] in capillary blood by glucometer 105 mg/dL low: 70mg/d Lhigh: 99mg/d L high Gluco se WB/PO C 105 (H) 70 - 99 mg/dL 11/15 12:40 PM CDT [facility] [employer] [facility] Not Available Not Available 12/11/2024 16:15:52 11/15/1911/15/2024 Gluco se [Mass /volu me] in Arter ial blood specimen source identified Cap Finger stick Speci men Type Cap Finge rstic k 11/15 12:40 PM CDT [facility] [employer] [facility] Not Available Not Available [...] 10.7 x10E9 /L 11/14 4:05 AM CDT [facility] [employer] [facility] Not Available Not Available 12/11/2024 16:15:51 11/15/1911/14/2024 CBC W Auto Diffe renti al panel - Blood erythrocytes [#/volume] in blood by automated count 4.21 text: 4.30 - 5.80 x10e12 /L low RBC Count 4.21 (L) 4.30 - 5.80 x10E1 2/L 11/14 4:05 AM CDT [facility] [employer] [facility] Not Available Not Available 12/11/2024 16:15:51 11/15/19 25 11/14/2024 CBC W Auto Diffe renti al panel - Blood hemoglobin [mass/volume ] in blood 10.7 g/dL low: 13.3g/ dLhigh : 17.5g/ dL low Hemog lobin 10.7 (L) 13.3 - 17.5 g/dL 11/14 4:05 AM [facility] Not Available 12/11/2024 16:15:51 11/15/19 25 11/14/2024 CBC W Auto Diffe renti al panel - Blood hematocrit [volume fraction] of blood by automated count 32.2 % low: 38.7%h igh: 51.1% low Hemat ocrit 32.2 (L) 38.7 - 51.1 % 11/14 4:05 AM [facility] Not Available Not Available 12/11/2024 16:15:51 11/15/1911/14/2024 CBC W Auto Diffe renti al panel - Blood MCV [entitic mean volume] in red blood cells by automated count 76.5 fL low: 80fLhi gh: 98fL low MCV 76.5 (L) 80.0 - 98.0 fL 11/14 4:05 AM [facility] Not Available Not Available 12/11/2024 16:15:51 11/15/19 25 11/14/2024 CBC W Auto Diffe renti al panel - Blood MCH [entitic mass] by automated count 25.4 pg low: 26.7pg high: 33.6pg low MCH 25.4 (L) 26.7 - 33.6 pg 11/14 4:05 AM [facility] Not Available Not Available 12/11/2024 16:15:51 11/15/19 25 11/14/2024 CBC W Auto Diffe renti al panel - Blood MCHC [entitic mass/volume] in red blood cells by automated count 33.2 g/dL low: 31.7g/ dLhigh : 36.3g/ dL MCHC 33.2 31.7 - 36.3 g/dL 11/14 4:05 AM [facility] Not Available Not Available 12/11/2024 16:15:51 11/15/19 25 11/14/2024 CBC W Auto Diffe renti al panel - Blood erythrocyte [distwidth] in red blood cells by automated count 19.3 % low: 11.3%h igh: 14.8% high RDW-C V 19.3 (H) 11.3 - 14.8 % 11/14 4:05 AM [facility] [employer] [facility] Not Available Not Available 12/11/2024 16:15:51 11/15/19 25 11/14/2024 CBC W Auto Diffe renti al panel - Blood platelets [#/volume] in blood by automated count 147 text: 150 - 420 x10e9/ L low Plate let Count 147 (L) 150 - 420 x10E9 /L 11/14 4:05 AM [facility] [employer] [facility] Not Available Not Available 12/11/2024 16:15:51 11/15/19 25 11/14/2024 CBC W Auto Diffe renti al panel - Blood platelet [entitic mean volume] in blood by automated count MPV 11/14 4:05 AM [facility] [employer] [facility] Not Available Not Available 12/11/2024 16:15:51 [...] 2.8 - 5.1 mg/dL 11/14 12:21 AM [facility] [employer] [facility] Not Available Not Available 12/11/2024 16:15:51 [...] - 2.6 mg/dL 11/14 12:21 AM CDT [facility] Not Available Not [...] 10.7 x10E9 /L 11/14 12:38 AM CDT [facility] [employer] [facility] Not Available Not Available 12/11/2024 16:15:51 11/15/19 25 11/14/2024 CBC W Auto Diffe renti al panel - Blood erythrocytes [#/volume] in blood by automated count 4.29 text: 4.30 - 5.80 x10e12 /L low RBC Count 4.29 (L) 4.30 - 5.80 x10E1 2/L 11/14 12:38 AM CDT [facility] [employer] [facility] Not Available Not Available 12/11/2024 16:15:51 11/15/19 25 11/14/2024 CBC W Auto Diffe renti al panel - Blood hemoglobin [mass/volume ] in blood 10.9 g/dL low: 13.3g/ dLhigh : 17.5g/ dL low Hemog lobin 10.9 (L) 13.3 - 17.5 g/dL 11/14 12:38 AM CDT [facility] [address] [facility] Not Available Not Available 12/11/2024 16:15:51 11/15/19 25 11/14/2024 CBC W Auto Diffe renti al panel - Blood hematocrit [volume fraction] of blood by automated count 32.8 % low: 38.7%h igh: 51.1% low Hemat ocrit 32.8 (L) 38.7 - 51.1 % 11/14 12:38 AM [facility] Not Available Not Available 12/11/2024 16:15:51 11/15/19 25 11/14/2024 CBC W Auto Diffe renti al panel - Blood MCV [entitic mean volume] in red blood cells by automated count 76.5 fL low: 80fLhi gh: 98fL low MCV 76.5 (L) 80.0 - 98.0 fL 11/14 12:38 AM [facility] Not Available Not Available 12/11/2024 16:15:51 11/15/1911/14/2024 CBC W Auto Diffe renti al panel - Blood MCH [entitic mass] by automated count 25.4 pg low: 26.7pg high: 33.6pg low MCH 25.4 (L) 26.7 - 33.6 pg 11/14 12:38 AM [facility] Not Available Not Available 12/11/2024 16:15:51 11/15/1911/14/2024 CBC W Auto Diffe renti al panel - Blood MCHC [entitic mass/volume] in red blood cells by automated count 33.2 g/dL low: 31.7g/ dLhigh : 36.3g/ dL MCHC 33.2 31.7 - 36.3 g/dL 11/14 12:38 AM [facility] Not Available Not Available 12/11/2024 16:15:51 11/15/1911/14/2024 CBC W Auto Diffe renti al panel - Blood erythrocyte [distwidth] in red blood cells by automated count 19.2 % low: 11.3%h igh: 14.8% high RDW-C V 19.2 (H) 11.3 - 14.8 % 11/14 12:38 AM [facility] Not Available Not Available 12/11/2024 16:15:51 11/15/19 25 11/14/2024 CBC W Auto Diffe renti al panel - Blood platelets [#/volume] in blood by automated count 149 text: 150 - 420 x10e9/ L low Plate let Count 149 (L) 150 - 420 x10E9 /L 11/14 12:38 AM [facility] Not Available Not Available 12/11/2024 16:15:51 11/15/19 25 11/14/2024 CBC W Auto Diffe renti al panel - Blood platelet [entitic mean volume] in blood by automated count MPV 11/14 12:38 AM T [facility] [place] Not Available Not Available [...] 7 - 26 mg/dL 11/14 12:21 AM [facility] Not Available Not Available 12/11/2024 16:15:51 11/15/19 25 11/14/2024 Basic metab olic 1999 panel - Serum or Plasm a creatinine [mass/volume ] in serum or plasma 1.09 mg/dL low: 0.71mg /dLhig h: 1.16mg /dL Creat inine 1.09 0.71 - 1.16 mg/dL 11/14 12:21 AM [facility] Not Available Not Available 12/11/2024 16:15:51 11/15/19 25 11/14/2024 Basic metab olic 1999 panel - Serum or Plasm a sodium [moles/volum e] in serum or plasma 134 mmol/ L low: 136mmo l/Lhig h: 145mmo l/L low Sodiu m 134 (L) 136 - 145 mmol/ L 11/14 12:21 AM [facility] Not Available Not Available 12/11/2024 16:15:51 11/15/19 25 11/14/2024 Basic metab olic 1999 panel - Serum or Plasm a potassium [moles/volum e] in serum or plasma 4.2 mmol/ L low: 3.5mmo l/Lhig h: 4.5mmo l/L Potas sium 4.2 3.5 - 4.5 mmol/ L 11/14 12:21 AM CDT [facility] [place] Not Available Not Available 12/11/2024 16:15:51 11/15/19 25 11/14/2024 Basic metab olic 1999 panel - Serum or Plasm a chloride [moles/volum e] in serum or plasma 106 mmol/ L low: 98mmol /Lhigh : 107mmo l/L Chlor sylvia 106 98 - 107 mmol/ L 11/14 12:21 AM CDT [facility] [place] Not Available Not Available 12/11/2024 16:15:51 11/15/19 25 11/14/2024 Basic metab olic 1999 panel - Serum or Plasm a carbon dioxide, total [moles/volum e] in serum or plasma 22 mmol/ L low: 22mmol /Lhigh : 29mmol /L CO2 22 22 - 29 mmol/ L 11/14 12:21 AM CDT [facility] [place] Not Available Not Available 12/11/2024 16:15:51 11/15/19 25 11/14/2024 Basic metab olic 1999 panel - Serum or Plasm a glucose [mass/volume ] in serum or plasma 145 mg/dL low: 70mg/d Lhigh: 99mg/d L high Gluco se 145 (H) 70 - 99 mg/dL 11/14 12:21 AM CDT [facility] [place] Not Available Not Available 12/11/2024 16:15:51 11/15/19 25 11/14/2024 Basic metab olic 1999 panel - Serum or Plasm a calcium [moles/volum e] in serum or plasma 8 mg/dL low: 8.4mg/ dLhigh : 10.2mg /dL low Calci um 8.0 (L) 8.4 - 10.2 mg/dL 11/14 12:21 AM CDT [facility] [place] Not Available Not Available 12/11/2024 16:15:51 11/15/19 25 11/14/2024 Basic metab olic 2000 panel - Serum or Plasm a anion gap 6 low: 6high: 16 Anion Gap 6 6 - 16 11/14 12:21 AM CDT [facility] [place] Not Available Not Available 12/11/2024 16:15:51 11/15/19 25 11/14/2024 Basic metab olic 2000 panel - Serum or Plasm a urea nitrogen/cre atinine [mass ratio] in serum or plasma 20 low: 7high: 23 BUN/C reati nine Ratio 20 7 - 23 11/14 12:21 AM [facility] [place] Not Available Not Available 12/11/2024 16:15:51 11/15/19 25 11/14/2024 Basic metab olic 2000 panel - Serum or Plasm a osmolality calculated 284 text: 275 - 295 mOsm/k g Osmol ality Calcu lated 284 275 - 295 mOsm/ kg 11/14 12:21 AM [facility] [place] Not Available Not Available 12/11/2024 16:15:51 11/15/19 25 11/14/2024 Basic metab olic 2000 panel - Serum or Plasm a glomerular filtration rate [volume rate/area] in serum, plasma or blood by creatinine-b ased formula (CKD-epi 2020)/1.73 sq M 73 text: >=90 mL/min /1.73 m2 low eGFR by CKD-E PI 73 (L) >=90 mL/mi n/1.7 3 m2 11/14 12:21 AM [facility] Not Available Not Available 12/11/2024 [...] - 99 mg/dL 11/15 9:44 PM CDT [facility] [place] Not Available Not Available 12/11/2024 16:15:53 11/16/19 25 11/15/2024 Gluco se [Mass /volu me] in Arter ial blood specimen source identified Cap Finger stick Speci men Type Cap Finge rstic k 11/15 9:44 PM CDT [facility] [place] Not Available Not [...] - 99 mg/dL 11/15 9:55 PM CDT [facility] [place] Not Available Not Available 12/11/2024 16:15:53 11/16/19 25 11/15/2024 Gluco se [Mass /volu me] in Arter ial blood specimen source identified Cap Finger stick Speci men Type Cap Finge rstic k 11/15 9:55 PM CDT [facility] [place] Not Available Not [...] - 99 mg/dL 11/16 8:05 AM CDT [facility] [place] Not Available Not Available 12/11/2024 16:15:52 11/16/19 25 11/16/2024 Gluco se [Mass /volu me] in Arter ial blood specimen source identified Cap Finger stick Speci men Type Cap Finge rstic k 11/16 8:05 AM CDT [facility] [place] Not Available Not Available 12/11/2024 16:15:52 11/16/19 25 11/16/2024 Gluco se [Mass /volu me] in Arter ial blood interpretati on and review of laboratory results Abnorm al Not Available Not Available 16:15:52 11/16/1911/16/2024 Gluco se [Mass /volu me] in Arter ial blood glucose [mass/volume ] in capillary blood by glucometer 144 mg/dL low: 70mg/d Lhigh: 99mg/d L high Gluco se WB/PO C 144 (H) 70 - 99 mg/dL 11/16 8:05 AM CDT [facility] [place] Not Available Not Available 12/11/2024 16:15:52 11/16/1911/16/2024 Gluco se [Mass /volu me] in Arter ial blood specimen source identified Cap Finger stick Speci men Type Cap Finge rstic k 11/16 8:05 AM T [facility] [place] Not Available Not [...] 10.7 x10E9 /L 11/15 12:27 AM CDT [facility] [place] Not Available Not Available 12/11/2024 16:15:52 11/16/19 25 11/15/2024 CBC W Auto Diffe renti al panel - Blood erythrocytes [#/volume] in blood by automated count 4.12 text: 4.30 - 5.80 x10e12 /L low RBC Count 4.12 (L) 4.30 - 5.80 x10E1 2/L 11/15 12:27 AM T [facility] [place] Not Available Not Available 12/11/2024 16:15:52 11/16/19 25 11/15/2024 CBC W Auto Diffe renti al panel - Blood hemoglobin [mass/volume ] in blood 10.8 g/dL low: 13.3g/ dLhigh : 17.5g/ dL low Hemog lobin 10.8 (L) 13.3 - 17.5 g/dL 11/15 12:27 AM T [facility] [place] Not Available Not Available 12/11/2024 16:15:52 11/16/19 25 11/15/2024 CBC W Auto Diffe renti al panel - Blood hematocrit [volume fraction] of blood by automated count 31.7 % low: 38.7%h igh: 51.1% low Hemat ocrit 31.7 (L) 38.7 - 51.1 % 11/15 12:27 AM [facility] [employer] [facility] [place] Not Available Not Available 12/11/2024 16:15:52 11/16/19 25 11/15/2024 CBC W Auto Diffe renti al panel - Blood MCV [entitic mean volume] in red blood cells by automated count 76.9 fL low: 80fLhi gh: 98fL low MCV 76.9 (L) 80.0 - 98.0 fL 11/15 12:27 AM T [facility] [place] Not Available Not Available 12/11/2024 16:15:52 11/16/19 25 11/15/2024 CBC W Auto Diffe renti al panel - Blood MCH [entitic mass] by automated count 26.2 pg low: 26.7pg high: 33.6pg low MCH 26.2 (L) 26.7 - 33.6 pg 11/15 12:27 AM [facility] Not Available Not Available 12/11/2024 16:15:52 11/16/19 25 11/15/2024 CBC W Auto Diffe renti al panel - Blood MCHC [entitic mass/volume] in red blood cells by automated count 34.1 g/dL low: 31.7g/ dLhigh : 36.3g/ dL MCHC 34.1 31.7 - 36.3 g/dL 11/15 12:27 AM [facility] Not Available Not Available 12/11/2024 16:15:52 11/16/19 25 11/15/2024 CBC W Auto Diffe renti al panel - Blood erythrocyte [distwidth] in red blood cells by automated count 19.7 % low: 11.3%h igh: 14.8% high RDW-C V 19.7 (H) 11.3 - 14.8 % 11/15 12:27 AM [facility] Not Available Not Available 12/11/2024 16:15:52 11/16/19 25 11/15/2024 CBC W Auto Diffe renti al panel - Blood platelets [#/volume] in blood by automated count 158 text: 150 - 420 x10e9/ L Plate let Count 158 150 - 420 x10E9 /L 11/15 12:27 AM [facility] Not Available Not Available 12/11/2024 16:15:52 11/16/19 25 11/15/2024 CBC W Auto Diffe renti al panel - Blood platelet [entitic mean volume] in blood by automated count 9.8 fL low: 7.8fLh igh: 11.4fL MPV 9.8 7.8 - 11.4 fL 11/15 12:27 AM [facility] Not Available Not Available 12/11/2024 16:15:52 11/16/19 25 11/15/2024 CBC W Auto Diffe renti al panel - Blood neutrophils/ leukocytes in blood by automated count 81.5 % low: 41%hig h: 74% high Neutr ophil % 81.5 (H) 41.0 - 74.0 % 11/15 12:27 AM CDT [facility] [place] Not Available Not Available 12/11/2024 16:15:52 11/16/19 25 11/15/2024 CBC W Auto Diffe renti al panel - Blood lymphocytes/ leukocytes in blood by automated count 5.5 % low: 17%hig h: 47% low Lymph ocyte % 5.5 (L) 17.0 - 47.0 % 11/15 12:27 AM CDT [facility] [place] Not Available Not Available 12/11/2024 16:15:52 11/16/19 25 11/15/2024 CBC W Auto Diffe renti al panel - Blood monocytes/le ukocytes in blood by automated count 11.9 % low: 3%high : 11% high Monoc yte % 11.9 (H) 3.0 - 11.0 % 11/15 12:27 AM CDT [facility] [place] Not Available Not Available 12/11/2024 16:15:52 11/16/19 25 11/15/2024 CBC W Auto Diffe renti al panel - Blood eosinophils/ leukocytes in blood by automated count 0.3 % low: 0%high : 7% Eosin ophil % 0.3 0.0 - 7.0 % 11/15 12:27 AM CDT [facility] [place] Not Available Not Available 12/11/2024 16:15:52 11/16/19 25 11/15/2024 CBC W Auto Diffe renti al panel - Blood basophils/le ukocytes in blood by automated count 0.2 % low: 0%high : 1.6% Basop hil % 0.2 0.0 - 1.6 % 11/15 12:27 AM CDT [facility] [place] Not Available Not Available 12/11/2024 16:15:52 11/16/19 25 11/15/2024 CBC W Auto Diffe renti al panel - Blood immature granulocytes /leukocytes in blood by automated count 0.6 % low: 0%high : 1% Immat ure Granu locyt es % 0.6 0.0 - 1.0 % 11/15 12:27 AM CD[facility] Not Available Not Available 12/11/2024 16:15:52 11/16/19 25 11/15/2024 CBC W Auto Diffe renti al panel - Blood neutrophils [#/volume] in blood by automated count 9.96 text: 1.60 - 7.50 x10e9/ L high Neutr ophil Absol [place] 9.96 (H) 1.60 - 7.50 x10E9 /L 11/15 12:27 AM CDT [facility] Not Available Not Available 12/11/2024 16:15:52 11/16/19 25 11/15/2024 CBC W Auto Diffe renti al panel - Blood lymphocytes [#/volume] in blood by automated count 0.67 text: 1.00 - 4.40 x10e9/ L low Lymph ocyte Absol [place] 0.67 (L) 1.00 - 4.40 x10E9 /L 11/15 12:27 AM [facility] Not Available Not Available 12/11/2024 16:15:52 11/16/19 25 11/15/2024 CBC W Auto Diffe renti al panel - Blood monocytes [#/volume] in blood by automated count 1.45 text: 0.15 - 1.00 x10e9/ L high Monoc yte Absol [place] 1.45 (H) 0.15 - 1.00 x10E9 /L 11/15 12:27 AM CDT [facility] Not Available Not Available 12/11/2024 16:15:52 11/16/19 25 11/15/2024 CBC W Auto Diffe renti al panel - Blood eosinophils [#/volume] in blood 0.04 text: 0.00 - 0.60 x10e9/ L Eosin ophil Absol [place] 0.04 0.00 - 0.60 x10E9 /L 11/15 12:27 AM CDT [facility] [place] Not Available Not Available 12/11/2024 16:15:52 11/16/19 25 11/15/2024 CBC W Auto Diffe renti al panel - Blood basophils [#/volume] in blood by automated count 0.02 text: 0.00 - 0.13 x10e9/ L Basop hil Absol [place] 0.02 0.00 - 0.13 x10E9 /L 11/15 12:27 AM T [facility] [employer] ATORY [facility] [place] Not Available Not Available [...] 2.8 - 5.1 mg/dL 11/15 12:45 AM [facility] [employer] [facility] [place] Not Available Not Available [...] 1.6 - 2.6 mg/dL 11/15 12:45 AM [facility] [employer] [facility] [place] Not Available Not Available [...] - 26 mg/dL 11/15 12:45 AM CDT [facility] [place] Not Available Not Available 12/11/2024 16:15:52 11/16/19 25 11/15/2024 Basic metab olic 1999 panel - Serum or Plasm a creatinine [mass/volume ] in serum or plasma 0.84 mg/dL low: 0.71mg /dLhig h: 1.16mg /dL Creat inine 0.84 0.71 - 1.16 mg/dL 11/15 12:45 AM CDT [facility] [place] Not Available Not Available 12/11/2024 16:15:52 11/16/1911/15/2024 Basic metab olic 1999 panel - Serum or Plasm a sodium [moles/volum e] in serum or plasma 132 mmol/ L low: 136mmo l/Lhig h: 145mmo l/L low Sodiu m 132 (L) 136 - 145 mmol/ L 11/15 12:45 AM CDT [facility] [place] Not Available Not Available 12/11/2024 16:15:52 11/16/1911/15/2024 Basic metab olic 1999 panel - Serum or Plasm a potassium [moles/volum e] in serum or plasma 4.6 mmol/ L low: 3.5mmo l/Lhig h: 4.5mmo l/L high Potas sium 4.6 (H) 3.5 - 4.5 mmol/ L 11/15 12:45 AM CDT [facility] [place] Not Available Not Available 12/11/2024 16:15:52 11/16/19 25 11/15/2024 Basic metab olic 1999 panel - Serum or Plasm a chloride [moles/volum e] in serum or plasma 102 mmol/ L low: 98mmol /Lhigh : 107mmo l/L Chlor sylvia 102 98 - 107 mmol/ L 11/15 12:45 AM CDT [facility] [place] Not Available Not Available 12/11/2024 16:15:52 11/16/19 25 11/15/2024 Basic metab olic 2000 panel - Serum or Plasm a carbon dioxide, total [moles/volum e] in serum or plasma 24 mmol/ L low: 22mmol /Lhigh : 29mmol /L CO2 24 22 - 29 mmol/ L 11/15 12:45 AM CDT [facility] AT[facility] [place] Not Available Not Available 12/11/2024 16:15:52 11/16/19 25 11/15/2024 Basic metab olic 1999 panel - Serum or Plasm a glucose [mass/volume ] in serum or plasma 164 mg/dL low: 70mg/d Lhigh: 99mg/d L high Gluco se 164 (H) 70 - 99 mg/dL 11/15 12:45 AM CDT [facility] [place] Not Available Not Available 12/11/2024 16:15:52 11/16/19 25 11/15/2024 Basic metab olic 1999 panel - Serum or Plasm a calcium [moles/volum e] in serum or plasma 8.3 mg/dL low: 8.4mg/ dLhigh : 10.2mg /dL low Calci um 8.3 (L) 8.4 - 10.2 mg/dL 11/15 12:45 AM CDT [facility] [place] Not Available Not Available 12/11/2024 16:15:52 11/16/19 25 11/15/2024 Basic metab olic 1999 panel - Serum or Plasm a anion gap 6 low: 6high: 16 Anion Gap 6 6 - 16 11/15 12:45 AM CDT [facility] [place] Not Available Not Available 12/11/2024 16:15:52 11/16/19 25 11/15/2024 Basic metab olic 2000 panel - Serum or Plasm a urea nitrogen/cre atinine [mass ratio] in serum or plasma 25 low: 7high: 23 high BUN/C reati nine Ratio 25 (H) 7 - 23 11/15 12:45 AM CDT [facility] AT[facility] [place] Not Available Not Available 12/11/2024 16:15:52 11/16/19 25 11/15/2024 Basic metab olic 2000 panel - Serum or Plasm a osmolality calculated 281 text: 275 - 295 mOsm/k g Osmol ality Calcu lated 281 275 - 295 mOsm/ kg 11/15 12:45 AM CDT [facility] [employer] ATORY [facility] [place] Not Available Not Available 12/11/2024 16:15:52 11/16/19 25 11/15/2024 Basic metab olic 2000 panel - Serum or Plasm a glomerular filtration rate [volume rate/area] in serum, plasma or blood by creatinine-b ased formula (CKD-epi 2020)/1.73 sq M text: >=90 mL/min /1.73 m2 eGFR by CKD-E PI >90 >=90 mL/mi n/1.7 3 m2 11/15 12:45 AM CDT [facility] [employer] AT[facility] [place] Not Available Not Available [...] - 99 mg/dL 11/16 4:06 PM T [facility] [employer] [facility] [place] Not Available Not Available 12/11/2024 16:15:53 11/17/19 25 11/16/2024 Gluco se [Mass /volu me] in Arter ial blood specimen source identified Cap Finger stick Speci men Type Cap Finge rstic k 11/16 4:06 PM T [facility] [employer] ATORY [facility] [place] Not Available Not Available [...] - 99 mg/dL 11/16 11:40 AM CDT [facility] [employer] [place] Not Available Not Available 12/11/2024 16:15:53 11/17/19 25 11/16/2024 Gluco se [Mass /volu me] in Arter ial blood specimen source identified Cap Finger stick Speci men Type Cap Finge rstic k 11/16 11:40 AM CDT [facility] [employer] [facility] [place] Not Available Not Available 12/11/2024 [...] 70 - 99 mg/dL 11/16 9:27 AM T [facility] [employer] [place] Not Available Not Available 12/11/2024 16:15:53 11/17/19 25 11/16/2024 Gluco se [Mass /volu me] in Arter ial blood specimen source identified Cap Finger stick Speci men Type Cap Finge rstic k 11/16 9:27 AM T [facility] [employer] [facility] [employer] [place] Not Available Not Available 12/11/2024 16:15:53 [...] - 99 mg/dL 11/16 8:41 AM CDT [facility] ATORY [facility] [place] Not Available Not Available 12/11/2024 16:15:53 11/17/1911/16/2024 Gluco se [Mass /volu me] in Arter ial blood specimen source identified Cap Finger stick Speci men Type Cap Finge rstic k 11/16 8:41 AM CDT [facility] [place] Not Available Not Available 12/11/2024 16:15:53 11/17/1911/16/2024 Gluco se [Mass /volu me] in Arter ial blood interpretati on and review of laboratory results Abnorm al Not Available Not Available 16:15:53 11/17/1911/16/2024 CBC W Auto Diffe renti al panel - Blood leukocytes [#/volume] in blood by automated count 8.9 text: 4.0 - 10.7 x10e9/ L WBC 8.9 4.0 - 10.7 x10E9 /L 11/16 3:37 AM CDT [facility] [place] Not Available Not Available 12/11/2024 16:15:53 11/17/1911/16/2024 CBC W Auto Diffe renti al panel - Blood erythrocytes [#/volume] in blood by automated count 3.85 text: 4.30 - 5.80 x10e12 /L low RBC Count 3.85 (L) 4.30 - 5.80 x10E1 2/L 11/16 3:37 AM CDT [facility] ATORY [facility] [place] Not Available Not Available 12/11/2024 16:15:53 11/17/19 25 11/16/2024 CBC W Auto Diffe renti al panel - Blood hemoglobin [mass/volume ] in blood 10 g/dL low: 13.3g/ dLhigh : 17.5g/ dL low Hemog lobin 10.0 (L) 13.3 - 17.5 g/dL 11/16 3:37 AM CDT [facility] ATORY [facility] [place] Not Available Not Available 12/11/2024 16:15:53 11/17/19 25 11/16/2024 CBC W Auto Diffe renti al panel - Blood hematocrit [volume fraction] of blood by automated count 29.8 % low: 38.7%h igh: 51.1% low Hemat ocrit 29.8 (L) 38.7 - 51.1 % 11/16 3:37 AM [facility] Not Available Not Available 12/11/2024 16:15:53 11/17/19 25 11/16/2024 CBC W Auto Diffe renti al panel - Blood MCV [entitic mean volume] in red blood cells by automated count 77.4 fL low: 80fLhi gh: 98fL low MCV 77.4 (L) 80.0 - 98.0 fL 11/16 3:37 AM T [facility] Not Available Not Available 12/11/2024 16:15:53 11/17/19 25 11/16/2024 CBC W Auto Diffe marisolti al panel - Blood MCH [entitic mass] by automated count 26 pg low: 26.7pg high: 33.6pg low MCH 26.0 (L) 26.7 - 33.6 pg 11/16 3:37 AM T [facility] Not Available Not Available 12/11/2024 16:15:53 11/17/19 25 11/16/2024 CBC W Auto Diffe marisolti al panel - Blood MCHC [entitic mass/volume] in red blood cells by automated count 33.6 g/dL low: 31.7g/ dLhigh : 36.3g/ dL MCHC 33.6 31.7 - 36.3 g/dL 11/16 3:37 AM T [facility] Not Available Not Available 12/11/2024 16:15:53 11/17/19 25 11/16/2024 CBC W Auto Diffe renti al panel - Blood erythrocyte [distwidth] in red blood cells by automated count 20.7 % low: 11.3%h igh: 14.8% high RDW-C V 20.7 (H) 11.3 - 14.8 % 11/16 3:37 AM CDT [facility] [place] Not Available Not Available 12/11/2024 16:15:53 11/17/19 25 11/16/2024 CBC W Auto Diffe renti al panel - Blood platelets [#/volume] in blood by automated count 185 text: 150 - 420 x10e9/ L Plate let Count 185 150 - 420 x10E9 /L 11/16 3:37 AM CDT [facility] [place] Not Available Not Available 12/11/2024 16:15:53 11/17/19 25 11/16/2024 CBC W Auto Diffe renti al panel - Blood platelet [entitic mean volume] in blood by automated count MPV 11/16 3:37 AM CDT [facility] [place] Not Available Not Available 12/11/2024 16:15:53 11/17/19 25 11/16/2024 CBC W Auto Diffe renti al panel - Blood neutrophils/ leukocytes in blood by automated count 77.9 % low: 41%hig h: 74% high Neutr ophil % 77.9 (H) 41.0 - 74.0 % 11/16 3:37 AM CDT [facility] [place] Not Available Not Available 12/11/2024 16:15:53 11/17/19 25 11/16/2024 CBC W Auto Diffe renti al panel - Blood lymphocytes/ leukocytes in blood by automated count 8.1 % low: 17%hig h: 47% low Lymph ocyte % 8.1 (L) 17.0 - 47.0 % 11/16 3:37 AM CDT [facility] [place] Not Available Not Available 12/11/2024 16:15:53 11/17/19 25 11/16/2024 CBC W Auto Diffe renti al panel - Blood monocytes/le ukocytes in blood by automated count 12.8 % low: 3%high : 11% high Monoc yte % 12.8 (H) 3.0 - 11.0 % 11/16 3:37 AM CDT [facility] Not Available Not Available 12/11/2024 16:15:53 11/17/19 25 11/16/2024 CBC W Auto Diffe renti al panel - Blood eosinophils/ leukocytes in blood by automated count 0.7 % low: 0%high : 7% Eosin ophil % 0.7 0.0 - 7.0 % 11/16 3:37 AM CDT [facility] Not Available Not Available 12/11/2024 16:15:53 11/17/19 25 11/16/2024 CBC W Auto Diffe renti al panel - Blood basophils/le ukocytes in blood by automated count 0.2 % low: 0%high : 1.6% Basop hil % 0.2 0.0 - 1.6 % 11/16 3:37 AM CDT [facility] Not Available Not Available 12/11/2024 16:15:53 11/17/19 25 11/16/2024 CBC W Auto Diffe renti al panel - Blood immature granulocytes /leukocytes in blood by automated count 0.3 % low: 0%high : 1% Immat ure Granu locyt es % 0.3 0.0 - 1.0 % 11/16 3:37 AM CDT [facility] Not Available Not Available 12/11/2024 16:15:53 11/17/19 25 11/16/2024 CBC W Auto Diffe renti al panel - Blood neutrophils [#/volume] in blood by automated count 6.96 text: 1.60 - 7.50 x10e9/ L Neutr ophil Absol [place] 6.96 1.60 - 7.50 x10E9 /L 11/16 3:37 AM CDT [facility] Not Available Not Available 12/11/2024 16:15:53 11/17/19 25 11/16/2024 CBC W Auto Diffe renti al panel - Blood lymphocytes [#/volume] in blood by automated count 0.72 text: 1.00 - 4.40 x10e9/ L low Lymph ocyte Absol [place] 0.72 (L) 1.00 - 4.40 x10E9 /L 11/16 3:37 AM CDT [facility] Not Available Not Available 12/11/2024 16:15:53 11/17/19 25 11/16/2024 CBC W Auto Diffe renti al panel - Blood monocytes [#/volume] in blood by automated count 1.14 text: 0.15 - 1.00 x10e9/ L high Monoc yte Absol navajo 1.14 (H) 0.15 - 1.00 x10E9 /L 11/16 3:37 AM CDT [facility] [place] Not Available Not Available 12/11/2024 16:15:53 11/17/19 25 11/16/2024 CBC W Auto Diffe renti al panel - Blood eosinophils [#/volume] in blood 0.06 text: 0.00 - 0.60 x10e9/ L Eosin ophil Absol navajo 0.06 0.00 - 0.60 x10E9 /L 11/16 3:37 AM CDT [facility] [place] Not Available Not Available 12/11/2024 16:15:53 11/17/19 25 11/16/2024 CBC W Auto Diffe renti al panel - Blood basophils [#/volume] in blood by automated count 0.02 text: 0.00 - 0.13 x10e9/ L Basop hil Absol navajo 0.02 0.00 - 0.13 x10E9 /L 11/16 3:37 AM CDT [facility] [place] Not Available Not [...] - 5.1 mg/dL 11/16 3:43 AM CDT [facility] [place] Not Available Not [...] - 2.6 mg/dL 11/16 3:43 AM [facility] [employer] [employer] [facility] [place] Not Available Not Available [...] 70 - 99 mg/dL 11/18 10:09 AM [facility] [place] Not Available Not Available 12/11/2024 16:15:54 11/18/19 25 11/18/2024 Gluco se [Mass /volu me] in Arter ial blood specimen source identified Cap Finger stick Speci men Type Cap Finge rstic k 11/18 10:09 AM [facility] [employer] [facility] [place] Not Available Not Available [...] - 99 mg/dL 11/17 4:42 PM CDT [facility] [place] Not Available Not Available 12/11/2024 16:15:54 11/18/19 25 11/17/2024 Gluco se [Mass /volu me] in Arter ial blood specimen source identified Cap Finger stick Speci men Type Cap Finge rstic k 11/17 4:42 PM CDT [facility] [place] Not Available Not [...] - 99 mg/dL 11/17 12:19 PM CDT [facility] [place] Not Available Not Available 12/11/2024 16:15:54 11/18/19 25 11/17/2024 Gluco se [Mass /volu me] in Arter ial blood specimen source identified Cap Finger stick Speci men Type Cap Finge rstic k 11/17 12:19 PM CDT [facility] [place] Not Available Not [...] - 26 mg/dL 11/17 11:25 AM CDT [facility] [place] Not Available Not Available 12/11/2024 16:15:38 11/18/19 25 11/17/2024 Basic metab olic 1999 panel - Serum or Plasm a creatinine [mass/volume ] in serum or plasma 0.77 mg/dL low: 0.71mg /dLhig h: 1.16mg /dL Creat inine 0.77 0.71 - 1.16 mg/dL 11/17 11:25 AM CDT [facility] [place] Not Available Not Available 12/11/2024 16:15:38 11/18/19 25 11/17/2024 Basic metab olic 1999 panel - Serum or Plasm a sodium [moles/volum e] in serum or plasma 134 mmol/ L low: 136mmo l/Lhig h: 145mmo l/L low Sodiu m 134 (L) 136 - 145 mmol/ L 11/17 11:25 AM CDT [facility] [place] Not Available Not Available 12/11/2024 16:15:38 11/18/1911/17/2024 Basic metab olic 1999 panel - Serum or Plasm a potassium [moles/volum e] in serum or plasma 4.3 mmol/ L low: 3.5mmo l/Lhig h: 4.5mmo l/L Potas sium 4.3 3.5 - 4.5 mmol/ L 11/17 11:25 AM CDT [facility] [place] Not Available Not Available 12/11/2024 16:15:38 11/18/1911/17/2024 Basic metab olic 1999 panel - Serum or Plasm a chloride [moles/volum e] in serum or plasma 100 mmol/ L low: 98mmol /Lhigh : 107mmo l/L Chlor sylvia 100 98 - 107 mmol/ L 11/17 11:25 AM CDT [facility] [place] Not Available Not Available 12/11/2024 16:15:38 11/18/19 25 11/17/2024 Basic metab olic 2000 panel - Serum or Plasm a carbon dioxide, total [moles/volum e] in serum or plasma 27 mmol/ L low: 22mmol /Lhigh : 29mmol /L CO2 27 22 - 29 mmol/ L 11/17 11:25 AM CDT [facility] [place] Not Available Not Available 12/11/2024 16:15:38 11/18/19 25 11/17/2024 Basic metab olic 2000 panel - Serum or Plasm a glucose [mass/volume ] in serum or plasma 205 mg/dL low: 70mg/d Lhigh: 99mg/d L high Gluco se 205 (H) 70 - 99 mg/dL 11/17 11:25 AM CDT [facility] [place] Not Available Not Available 12/11/2024 16:15:38 11/18/19 25 11/17/2024 Basic metab olic 1999 panel - Serum or Plasm a calcium [moles/volum e] in serum or plasma 8.9 mg/dL low: 8.4mg/ dLhigh : 10.2mg /dL Calci um 8.9 8.4 - 10.2 mg/dL 11/17 11:25 AM CDT [facility] [place] Not Available Not Available 12/11/2024 16:15:38 11/18/19 25 11/17/2024 Basic metab olic 1999 panel - Serum or Plasm a anion gap 7 low: 6high: 16 Anion Gap 7 6 - 16 11/17 11:25 AM CDT [facility] [place] Not Available Not Available 12/11/2024 16:15:38 11/18/19 25 11/17/2024 Basic metab olic 1999 panel - Serum or Plasm a urea nitrogen/cre atinine [mass ratio] in serum or plasma 21 low: 7high: 23 BUN/C reati nine Ratio 21 7 - 23 11/17 11:25 AM CDT [facility] [place] Not Available Not Available 12/11/2024 16:15:38 11/18/19 25 11/17/2024 Basic metab olic 2000 panel - Serum or Plasm a osmolality calculated 285 text: 275 - 295 mOsm/k g Osmol ality Calcu lated 285 275 - 295 mOsm/ kg 11/17 11:25 AM CDT [facility] [place] Not Available Not Available 12/11/2024 16:15:38 11/18/19 25 11/17/2024 Basic metab olic 2000 panel - Serum or Plasm a glomerular filtration rate [volume rate/area] in serum, plasma or blood by creatinine-b ased formula (CKD-epi 2020)/1.73 sq M text: >=90 mL/min /1.73 m2 eGFR by CKD-E PI >90 >=90 mL/mi n/1.7 3 m2 11/17 11:25 AM CDT [facility] [place] Not Available Not [...] - 99 mg/dL 11/17 8:29 AM CDT [facility] [employer] [facility] [place] Not Available Not Available 12/11/2024 16:15:54 11/18/19 25 11/17/2024 Gluco se [Mass /volu me] in Arter ial blood specimen source identified Cap Finger stick Speci men Type Cap Finge rstic k 11/17 8:29 AM [facility] [employer] [facility] [place] Not Available Not Available [...] 10.7 x10E9 /L 11/17 3:15 AM CDT [facility] [employer] [facility] [place] Not Available Not Available 12/11/2024 16:15:54 11/18/19 25 11/17/2024 CBC W Auto Diffe renti al panel - Blood erythrocytes [#/volume] in blood by automated count 3.75 text: 4.30 - 5.80 x10e12 /L low RBC Count 3.75 (L) 4.30 - 5.80 x10E1 2/L 11/17 3:15 AM CDT [facility] Not Available Not Available 12/11/2024 16:15:54 11/18/19 25 11/17/2024 CBC W Auto Diffe renti al panel - Blood hemoglobin [mass/volume ] in blood 9.6 g/dL low: 13.3g/ dLhigh : 17.5g/ dL low Hemog lobin 9.6 (L) 13.3 - 17.5 g/dL 11/17 3:15 AM CDT [facility] [employer] [facility] Not Available Not Available 12/11/2024 16:15:54 11/18/1911/17/2024 CBC W Auto Diffe renti al panel - Blood hematocrit [volume fraction] of blood by automated count 29.4 % low: 38.7%h igh: 51.1% low Hemat ocrit 29.4 (L) 38.7 - 51.1 % 11/17 3:15 AM T [facility] [employer] [facility] Not Available Not Available 12/11/2024 16:15:54 11/18/1911/17/2024 CBC W Auto Diffe renti al panel - Blood MCV [entitic mean volume] in red blood cells by automated count 78.4 fL low: 80fLhi gh: 98fL low MCV 78.4 (L) 80.0 - 98.0 fL 11/17 3:15 AM CDT [facility] [employer] [facility] Not Available Not Available 12/11/2024 16:15:54 11/18/19 25 11/17/2024 CBC W Auto Diffe renti al panel - Blood MCH [entitic mass] by automated count 25.6 pg low: 26.7pg high: 33.6pg low MCH 25.6 (L) 26.7 - 33.6 pg 11/17 3:15 AM [facility] Not Available 12/11/2024 16:15:54 11/18/1911/17/2024 CBC W Auto Diffe renti al panel - Blood MCHC [entitic mass/volume] in red blood cells by automated count 32.7 g/dL low: 31.7g/ dLhigh : 36.3g/ dL MCHC 32.7 31.7 - 36.3 g/dL 11/17 3:15 AM [facility] Not Available 12/11/2024 16:15:54 11/18/19 25 11/17/2024 CBC W Auto Diffe renti al panel - Blood erythrocyte [distwidth] in red blood cells by automated count 21 % low: 11.3%h igh: 14.8% high RDW-C V 21.0 (H) 11.3 - 14.8 % 11/17 3:15 AM [facility] Not Available Not Available 12/11/2024 16:15:54 11/18/1911/17/2024 CBC W Auto Diffe renti al panel - Blood platelets [#/volume] in blood by automated count 210 text: 150 - 420 x10e9/ L Plate let Count 210 150 - 420 x10E9 /L 11/17 3:15 AM [facility] Not Available 12/11/2024 16:15:54 11/18/1911/17/2024 CBC W Auto Diffe renti al panel - Blood platelet [entitic mean volume] in blood by automated count 10 fL low: 7.8fLh igh: 11.4fL MPV 10.0 7.8 - 11.4 fL 11/17 3:15 AM [facility] Not Available Not Available 12/11/2024 16:15:54 11/18/19 25 11/17/2024 CBC W Auto Diffe renti al panel - Blood neutrophils/ leukocytes in blood by automated count 75.9 % low: 41%hig h: 74% high Neutr ophil % 75.9 (H) 41.0 - 74.0 % 11/17 3:15 AM CDT [facility] [place] Not Available Not Available 12/11/2024 16:15:54 11/18/19 25 11/17/2024 CBC W Auto Diffe renti al panel - Blood lymphocytes/ leukocytes in blood by automated count 8.8 % low: 17%hig h: 47% low Lymph ocyte % 8.8 (L) 17.0 - 47.0 % 11/17 3:15 AM CDT [facility] [place] Not Available Not Available 12/11/2024 16:15:54 11/18/19 25 11/17/2024 CBC W Auto Diffe renti al panel - Blood monocytes/le ukocytes in blood by automated count 13.6 % low: 3%high : 11% high Monoc yte % 13.6 (H) 3.0 - 11.0 % 11/17 3:15 AM CDT [facility] [place] Not Available Not Available 12/11/2024 16:15:54 11/18/1911/17/2024 CBC W Auto Diffe renti al panel - Blood eosinophils/ leukocytes in blood by automated count 1.2 % low: 0%high : 7% Eosin ophil % 1.2 0.0 - 7.0 % 11/17 3:15 AM CDT [facility] [place] Not Available Not Available 12/11/2024 16:15:54 11/18/19 25 11/17/2024 CBC W Auto Diffe renti al panel - Blood basophils/le ukocytes in blood by automated count 0.1 % low: 0%high : 1.6% Basop hil % 0.1 0.0 - 1.6 % 11/17 3:15 AM CDT [facility] [place] Not Available Not Available 12/11/2024 16:15:54 11/18/19 25 11/17/2024 CBC W Auto Diffe renti al panel - Blood immature granulocytes /leukocytes in blood by automated count 0.4 % low: 0%high : 1% Immat ure Granu locyt es % 0.4 0.0 - 1.0 % 11/17 3:15 AM CDT [facility] Not Available Not Available 12/11/2024 16:15:54 11/18/19 25 11/17/2024 CBC W Auto Diffe renti al panel - Blood neutrophils [#/volume] in blood by automated count 5.5 text: 1.60 - 7.50 x10e9/ L Neutr ophil Absol navajo 5.50 1.60 - 7.50 x10E9 /L 11/17 3:15 AM CDT [facility] Not Available Not Available 12/11/2024 16:15:54 11/18/19 25 11/17/2024 CBC W Auto Diffe renti al panel - Blood lymphocytes [#/volume] in blood by automated count 0.64 text: 1.00 - 4.40 x10e9/ L low Lymph ocyte Absol navajo 0.64 (L) 1.00 - 4.40 x10E9 /L 11/17 3:15 AM [facility] Not Available 12/11/2024 16:15:54 11/18/19 25 11/17/2024 CBC W Auto Diffe renti al panel - Blood monocytes [#/volume] in blood by automated count 0.99 text: 0.15 - 1.00 x10e9/ L Monoc yte Absol navajo 0.99 0.15 - 1.00 x10E9 /L 11/17 3:15 AM T [facility] Not Available Not Available 12/11/2024 16:15:54 11/18/19 25 11/17/2024 CBC W Auto Diffe renti al panel - Blood eosinophils [#/volume] in blood 0.09 text: 0.00 - 0.60 x10e9/ L Eosin ophil Absol navajo 0.09 0.00 - 0.60 x10E9 /L 11/17 3:15 AM CDT [facility] Not Available Not Available 12/11/2024 16:15:54 11/18/19 25 11/17/2024 CBC W Auto Diffe renti al panel - Blood basophils [#/volume] in blood by automated count 0.01 text: 0.00 - 0.13 x10e9/ L Basop hil Absol navajo 0.01 0.00 - 0.13 x10E9 /L 11/17 3:15 AM [facility] [employer] [facility] Not Available Not Available 12/11/2024 16:15:54 [...] 2.8 - 5.1 mg/dL 11/17 3:34 AM [facility] [employer] [facility] Not Available Not Available 12/11/2024 16:15:54 [...] 1.6 - 2.6 mg/dL 11/17 3:34 AM [facility] [employer] [facility] Not Available Not Available 12/11/2024 16:15:53 [...] - 99 mg/dL 11/18 10:32 PM CDT [facility] [employer] [facility] [place] Not Available Not Available 12/11/2024 16:15:55 11/19/19 25 11/18/2024 Gluco se [Mass /volu me] in Arter ial blood specimen source identified Cap Finger stick Speci men Type Cap Finge rstic k 11/18 10:32 PM CDT [facility] [employer] [facility] [place] Not Available Not Available [...] - 99 mg/dL 11/18 5:19 PM CDT [facility] [employer] [facility] [place] Not Available Not Available 12/11/2024 16:15:55 11/19/19 25 11/18/2024 Gluco se [Mass /volu me] in Arter ial blood specimen source identified Arteri al Speci men Type Arter ial 11/18 5:19 PM CDT [facility] [employer] [facility] [place] Not Available Not Available [...] - 99 mg/dL 11/18 12:58 PM CDT [facility] [place] Not Available Not Available 12/11/2024 16:15:55 11/19/19 25 11/18/2024 Gluco se [Mass /volu me] in Arter ial blood specimen source identified Arteri al Speci men Type Arter ial 11/18 12:58 PM CDT [facility] [place] Not Available Not [...] - 99 mg/dL 11/19 6:47 AM CDT [facility] [place] Not Available Not Available 12/11/2024 16:15:54 11/19/19 25 11/19/2024 Gluco se [Mass /volu me] in Arter ial blood specimen source identified Arteri al Speci men Type Arter ial 11/19 6:47 AM CDT [facility] [place] Not Available Not [...] 10.7 x10E9 /L 11/18 4:15 AM CDT [facility] [place] Not Available Not Available 12/11/2024 16:15:54 11/19/19 25 11/18/2024 CBC W Auto Diffe renti al panel - Blood erythrocytes [#/volume] in blood by automated count 3.85 text: 4.30 - 5.80 x10e12 /L low RBC Count 3.85 (L) 4.30 - 5.80 x10E1 2/L 11/18 4:15 AM CDT [facility] Not Available Not Available 12/11/2024 16:15:54 11/19/19 25 11/18/2024 CBC W Auto Diffe renti al panel - Blood hemoglobin [mass/volume ] in blood 9.8 g/dL low: 13.3g/ dLhigh : 17.5g/ dL low Hemog lobin 9.8 (L) 13.3 - 17.5 g/dL 11/18 4:15 AM [facility] Not Available Not Available 12/11/2024 16:15:54 11/19/1911/18/2024 CBC W Auto Diffe rose al panel - Blood hematocrit [volume fraction] of blood by automated count 30.1 % low: 38.7%h igh: 51.1% low Hemat ocrit 30.1 (L) 38.7 - 51.1 % 11/18 4:15 AM [facility] Not Available Not Available 12/11/2024 16:15:54 11/19/1911/18/2024 CBC W Auto Diffe renti al panel - Blood MCV [entitic mean volume] in red blood cells by automated count 78.2 fL low: 80fLhi gh: 98fL low MCV 78.2 (L) 80.0 - 98.0 fL 11/18 4:15 AM CDT [facility] Not Available Not Available 12/11/2024 16:15:54 11/19/19 25 11/18/2024 CBC W Auto Diffe renti al panel - Blood MCH [entitic mass] by automated count 25.5 pg low: 26.7pg high: 33.6pg low MCH 25.5 (L) 26.7 - 33.6 pg 11/18 4:15 AM [facility] Not Available Not Available 12/11/2024 16:15:54 11/19/19 25 11/18/2024 CBC W Auto Diffe renti al panel - Blood MCHC [entitic mass/volume] in red blood cells by automated count 32.6 g/dL low: 31.7g/ dLhigh : 36.3g/ dL MCHC 32.6 31.7 - 36.3 g/dL 11/18 4:15 AM T [facility] Not Available Not Available 12/11/2024 16:15:54 11/19/19 25 11/18/2024 CBC W Auto Diffe renti al panel - Blood erythrocyte [distwidth] in red blood cells by automated count 20.9 % low: 11.3%h igh: 14.8% high RDW-C V 20.9 (H) 11.3 - 14.8 % 11/18 4:15 AM [facility] Not Available Not Available 12/11/2024 16:15:54 11/19/19 25 11/18/2024 CBC W Auto Diffe renti al panel - Blood platelets [#/volume] in blood by automated count 236 text: 150 - 420 x10e9/ L Plate let Count 236 150 - 420 x10E9 /L 11/18 4:15 AM [facility] Not [facility] Not Available 12/11/2024 16:15:54 11/19/19 25 11/18/2024 CBC W Auto Diffe renti al panel - Blood platelet [entitic mean volume] in blood by automated count 9.6 fL low: 7.8fLh igh: 11.4fL MPV 9.6 7.8 - 11.4 fL 11/18 4:15 AM [facility] Not Available Not Available 12/11/2024 16:15:54 11/19/19 25 11/18/2024 CBC W Auto Diffe renti al panel - Blood neutrophils/ leukocytes in blood by automated count 74.2 % low: 41%hig h: 74% high Neutr ophil % 74.2 (H) 41.0 - 74.0 % 11/18 4:15 AM CDT [facility] [place] Not Available Not Available 12/11/2024 16:15:54 11/19/19 25 11/18/2024 CBC W Auto Diffe renti al panel - Blood lymphocytes/ leukocytes in blood by automated count 11.9 % low: 17%hig h: 47% low Lymph ocyte % 11.9 (L) 17.0 - 47.0 % 11/18 4:15 AM CDT [facility] [place] Not Available Not Available 12/11/2024 16:15:54 11/19/19 25 11/18/2024 CBC W Auto Diffe renti al panel - Blood monocytes/le ukocytes in blood by automated count 12.1 % low: 3%high : 11% high Monoc yte % 12.1 (H) 3.0 - 11.0 % 11/18 4:15 AM CDT [facility] [place] Not Available Not Available 12/11/2024 16:15:54 11/19/19 25 11/18/2024 CBC W Auto Diffe renti al panel - Blood eosinophils/ leukocytes in blood by automated count 1.1 % low: 0%high : 7% Eosin ophil % 1.1 0.0 - 7.0 % 11/18 4:15 AM CDT [facility] [employer] [facility] Not Available Not Available 12/11/2024 16:15:54 11/19/19 25 11/18/2024 CBC W Auto Diffe renti al panel - Blood basophils/le ukocytes in blood by automated count 0.3 % low: 0%high : 1.6% Basop hil % 0.3 0.0 - 1.6 % 11/18 4:15 AM CDT [facility] [employer] [facility] Not Available Not Available 12/11/2024 16:15:54 11/19/19 25 11/18/2024 CBC W Auto Diffe renti al panel - Blood immature granulocytes /leukocytes in blood by automated count 0.4 % low: 0%high : 1% Immat ure Granu locyt es % 0.4 0.0 - 1.0 % 11/18 4:15 AM CDT [facility] [employer] [facility] Not Available Not Available 12/11/2024 16:15:54 11/19/19 25 11/18/2024 CBC W Auto Diffe renti al panel - Blood neutrophils [#/volume] in blood by automated count 5.25 text: 1.60 - 7.50 x10e9/ L Neutr ophil Absol navajo 5.25 1.60 - 7.50 x10E9 /L 11/18 4:15 AM CDT [facility] [place] Not Available Not Available 12/11/2024 16:15:54 11/19/19 25 11/18/2024 CBC W Auto Diffe renti al panel - Blood lymphocytes [#/volume] in blood by automated count 0.84 text: 1.00 - 4.40 x10e9/ L low Lymph ocyte Absol [place]ajo 0.84 (L) 1.00 - 4.40 x10E9 /L 11/18 4:15 AM CDT [facility] [employer] [facility] Not Available Not Available 12/11/2024 16:15:54 11/19/19 25 11/18/2024 CBC W Auto Diffe renti al panel - Blood monocytes [#/volume] in blood by automated count 0.86 text: 0.15 - 1.00 x10e9/ L Monoc yte Absol [place]ajo 0.86 0.15 - 1.00 x10E9 /L 11/18 4:15 AM CDT [facility] [employer] [facility] Not Available Not Available 12/11/2024 16:15:54 11/19/19 25 11/18/2024 CBC W Auto Diffe renti al panel - Blood eosinophils [#/volume] in blood 0.08 text: 0.00 - 0.60 x10e9/ L Eosin ophil Absol [place] 0.08 0.00 - 0.60 x10E9 /L 11/18 4:15 AM CDT [facility] [place] Not Available Not Available 12/11/2024 16:15:54 11/19/19 25 11/18/2024 CBC W Auto Diffe renti al panel - Blood basophils [#/volume] in blood by automated count 0.02 text: 0.00 - 0.13 x10e9/ L Basop hil Absol [place] 0.02 0.00 - 0.13 x10E9 /L 11/18 4:15 AM CDT [facility] [address] [employer] [facility] [place] Not Available Not Available 12/11/2024 16:15:54 11/19/19 25 11/18/2024 CBC W Auto Diffe renrodney al panel - Blood interpretati on and review of laboratory results Abnorm al Not Available Not Available 16:15:54 11/19/19 25 11/18/2024 Phosp hate [Mass /volu me] in Serum or Plasm a phosphate [mass/volume ] in serum or plasma 3.6 mg/dL low: 2.8mg/ dLhigh : 5.1mg/ dL Phosp horus 3.6 2.8 - 5.1 mg/dL 11/18 4:40 AM [facility] [employer] [facility] [place] Not Available Not Available 12/11/2024 16:15:54 [...] 1.6 - 2.6 mg/dL 11/18 4:40 AM [facility] [employer] [facility] [place] Not Available Not Available 12/11/2024 16:15:54 [...] - 99 mg/dL 11/19 9:20 PM CDT [facility] [address] [facility] [place] Not Available Not Available 12/11/2024 16:15:38 11/20/1911/19/2024 Gluco se [Mass /volu me] in Arter ial blood specimen source identified Cap Finger stick Speci men Type Cap Finge rstic k 11/19 9:20 PM CDT [facility] [address] [address] [facility] [place] Not Available Not [...] - 99 mg/dL 11/20 7:33 AM CDT [facility] [address] [facility] [place] Not Available Not Available 12/11/2024 16:15:55 11/20/1911/20/2024 Gluco se [Mass /volu me] in Arter ial blood specimen source identified Cap Finger stick Speci men Type Cap Finge rstic k 11/20 7:33 AM T [facility] [place] Not Available Not Available [...] - 99 mg/dL 11/20 7:33 AM CDT [facility] [place] Not Available Not Available 12/11/2024 16:15:55 11/20/1911/20/2024 Gluco se [Mass /volu me] in Arter ial blood specimen source identified Cap Finger stick Speci men Type Cap Finge rstic k 11/20 7:33 AM CDT [facility] [place] Not Available Not Available [...] 10.7 x10E9 /L 11/19 2:19 AM CDT [facility] [place] Not Available Not Available 12/11/2024 16:15:38 11/20/1911/19/2024 CBC W Auto Diffe renti al panel - Blood erythrocytes [#/volume] in blood by automated count 3.92 text: 4.30 - 5.80 x10e12 /L low RBC Count 3.92 (L) 4.30 - 5.80 x10E1 2/L 11/19 2:19 AM CDT [facility] Not Available Not Available 12/11/2024 16:15:38 11/20/1911/19/2024 CBC W Auto Diffe renti al panel - Blood hemoglobin [mass/volume ] in blood 9.9 g/dL low: 13.3g/ dLhigh : 17.5g/ dL low Hemog lobin 9.9 (L) 13.3 - 17.5 g/dL 11/19 2:19 AM CDT [facility] Not Available Not Available 12/11/2024 16:15:38 11/20/1911/19/2024 CBC W Auto Diffe renti al panel - Blood hematocrit [volume fraction] of blood by automated count 31.2 % low: 38.7%h igh: 51.1% low Hemat ocrit 31.2 (L) 38.7 - 51.1 % 11/19 2:19 AM CDT [facility] Not Available Not Available 12/11/2024 16:15:38 11/20/1911/19/2024 CBC W Auto Diffe rose al panel - Blood MCV [entitic mean volume] in red blood cells by automated count 79.6 fL low: 80fLhi gh: 98fL low MCV 79.6 (L) 80.0 - 98.0 fL 11/19 2:19 AM CDT [facility] Not Available Not Available 12/11/2024 16:15:38 11/20/1911/19/2024 CBC W Auto Diffe rose minaya panel - Blood MCH [entitic mass] by automated count 25.3 pg low: 26.7pg high: 33.6pg low MCH 25.3 (L) 26.7 - 33.6 pg 11/19 2:19 AM T [facility] Not Available Not Available 12/11/2024 16:15:38 11/20/1911/19/2024 CBC W Auto Diffe rose al panel - Blood MCHC [entitic mass/volume] in red blood cells by automated count 31.7 g/dL low: 31.7g/ dLhigh : 36.3g/ dL MCHC 31.7 31.7 - 36.3 g/dL 11/19 2:19 AM T [facility] Not Available Not Available 12/11/2024 16:15:38 11/20/1911/19/2024 CBC W Auto Diffe rose al panel - Blood erythrocyte [distwidth] in red blood cells by automated count 20.9 % low: 11.3%h igh: 14.8% high RDW-C V 20.9 (H) 11.3 - 14.8 % 11/19 2:19 AM T [facility] Not Available Not Available 12/11/2024 16:15:38 11/20/19 25 11/19/2024 CBC W Auto Diffe renti al panel - Blood platelets [#/volume] in blood by automated count 263 text: 150 - 420 x10e9/ L Plate let Count 263 150 - 420 x10E9 /L 11/19 2:19 AM CDT [facility] [place] Not Available Not Available 12/11/2024 16:15:38 11/20/1911/19/2024 CBC W Auto Diffe renti al panel - Blood platelet [entitic mean volume] in blood by automated count 9.7 fL low: 7.8fLh igh: 11.4fL MPV 9.7 7.8 - 11.4 fL 11/19 2:19 AM CDT [facility] [place] Not Available Not Available 12/11/2024 16:15:38 11/20/1911/19/2024 CBC W Auto Diffe renti al panel - Blood neutrophils/ leukocytes in blood by automated count 75.8 % low: 41%hig h: 74% high Neutr ophil % 75.8 (H) 41.0 - 74.0 % 11/19 2:19 AM CDT [facility] [place] Not Available Not Available 12/11/2024 16:15:38 11/20/1911/19/2024 CBC W Auto Diffe renti al panel - Blood lymphocytes/ leukocytes in blood by automated count 10.2 % low: 17%hig h: 47% low Lymph ocyte % 10.2 (L) 17.0 - 47.0 % 11/19 2:19 AM CDT [facility] [place] Not Available Not Available 12/11/2024 16:15:38 11/20/1911/19/2024 CBC W Auto Diffe renti al panel - Blood monocytes/le ukocytes in blood by automated count 11.9 % low: 3%high : 11% high Monoc yte % 11.9 (H) 3.0 - 11.0 % 11/19 2:19 AM CDT [facility] [place] Not Available Not Available 12/11/2024 16:15:38 11/20/1911/19/2024 CBC W Auto Diffe renti al panel - Blood eosinophils/ leukocytes in blood by automated count 1.4 % low: 0%high : 7% Eosin ophil % 1.4 0.0 - 7.0 % 11/19 2:19 AM CDT [facility] [place] Not Available Not Available 12/11/2024 16:15:38 11/20/19 25 11/19/2024 CBC W Auto Diffe renti al panel - Blood basophils/le ukocytes in blood by automated count 0.3 % low: 0%high : 1.6% Basop hil % 0.3 0.0 - 1.6 % 11/19 2:19 AM CDT [facility] [place] Not Available Not Available 12/11/2024 16:15:38 11/20/1911/19/2024 CBC W Auto Diffe renti al panel - Blood immature granulocytes /leukocytes in blood by automated count 0.4 % low: 0%high : 1% Immat ure Granu locyt es % 0.4 0.0 - 1.0 % 11/19 2:19 AM CDT [facility] [place] Not Available Not Available 12/11/2024 16:15:38 11/20/1911/19/2024 CBC W Auto Diffe renti al panel - Blood neutrophils [#/volume] in blood by automated count 5.89 text: 1.60 - 7.50 x10e9/ L Neutr ophil Absol navajo 5.89 1.60 - 7.50 x10E9 /L 11/19 2:19 AM CDT [facility] [place] Not Available Not Available 12/11/2024 16:15:38 11/20/1911/19/2024 CBC W Auto Diffe renti al panel - Blood lymphocytes [#/volume] in blood by automated count 0.79 text: 1.00 - 4.40 x10e9/ L low Lymph ocyte Absol navajo 0.79 (L) 1.00 - 4.40 x10E9 /L 11/19 2:19 AM CDT [facility] [place] Not Available Not Available 12/11/2024 16:15:38 11/20/1911/19/2024 CBC W Auto Diffe renti al panel - Blood monocytes [#/volume] in blood by automated count 0.92 text: 0.15 - 1.00 x10e9/ L Monoc yte Absol navajo 0.92 0.15 - 1.00 x10E9 /L 11/19 2:19 AM CDT [facility] [place] Not Available Not Available 12/11/2024 16:15:38 11/20/1911/19/2024 CBC W Auto Diffe renti al panel - Blood eosinophils [#/volume] in blood 0.11 text: 0.00 - 0.60 x10e9/ L Eosin ophil Absol navajo 0.11 0.00 - 0.60 x10E9 /L 11/19 2:19 AM CDT [facility] [employer] [facility] Not Available Not Available 12/11/2024 16:15:38 11/20/1911/19/2024 CBC W Auto Diffe renti al panel - Blood basophils [#/volume] in blood by automated count 0.02 text: 0.00 - 0.13 x10e9/ L Basop hil Absol navajo 0.02 0.00 - 0.13 x10E9 /L 11/19 2:19 AM CDT [facility] [employer] [facility] Not Available Not Available 12/11/2024 [...] - 5.1 mg/dL 11/19 2:47 AM CDT [facility] [employer] [facility] [place] Not Available Not Available [...] - 2.6 mg/dL 11/19 2:47 AM CDT [facility] [place] Not Available Not Available 12/11/2024 16:15:37 11/20/19 25 11/19/2024 Magne sium [Mass /volu me] in Serum or Plasm a interpretati on and review of laboratory results Normal Not Available Not Available 11/26 16:15:37 07/08/20 25 07/08/2025 CBC w/ auto diff WBC, auto, blood 5.7 text: 4.0 - 10.7 x10e9/ L Not Available Not Available 07/08/2025 22:08:18 07/08/20 25 07/08/2025 CBC w/ auto diff RBC count, blood 1.77 text: 4.30 - 5.80 x10e12 /L low Not Available Not Available 07/08/2025 22:08:18 07/08/20 25 07/08/2025 CBC w/ auto diff hemoglobin (Hb), blood 4 g/dL low: 13.3g/ dLhigh : 17.5g/ dL critical low Not Available Not Available 07/08/2025 22:08:18 07/08/20 25 07/08/2025 CBC w/ auto diff hematocrit, automated count, blood 14.4 % low: 38.7%h igh: 51.1% low Not Available Not Available 07/08/2025 22:08:18 07/08/20 25 07/08/2025 CBC w/ auto diff MCV, blood 81.4 fL low: 80fLhi gh: 98fL Not Available Not Available 07/08/2025 22:08:18 07/08/20 25 07/08/2025 CBC w/ auto diff MCH, qn, automated (obs) 22.6 pg low: 26.7pg high: 33.6pg low Not Available Not Available 07/08/2025 22:08:18 07/08/20 25 07/08/2025 CBC w/ auto diff MCHC, qn, automated (obs) 27.8 g/dL low: 31.7g/ dLhigh : 36.3g/ dL low Not Available Not Available 07/08/2025 22:08:18 07/08/20 25 07/08/2025 CBC w/ auto diff erythrocyte distribution width, ratio, automated (obs) 18.4 % low: 11.3%h igh: 14.8% high Not Available Not Available 07/08/2025 22:08:18 07/08/20 25 07/08/2025 CBC w/ auto diff platelets, auto, blood 139 text: 150 - 420 x10e9/ L low Not Available Not Available 07/08/2025 22:08:18 07/08/20 25 07/08/2025 CBC w/ auto diff platelet mean volume, qn, automated, blood (obs) 11.4 fL low: 7.8fLh igh: 11.4fL Not Available Not Available 07/08/2025 22:08:18 07/08/20 25 07/08/2025 CBC w/ auto diff neutrophils/ 100 leukocytes, automated, blood (obs) 70 % low: 41%hig h: 74% Not Available Not Available 07/08/2025 22:08:18 07/08/20 25 07/08/2025 CBC w/ auto diff lymphocytes/ 100 leukocytes, automated, blood (obs) 13.9 % low: 17%hig h: 47% low Not Available Not Available 07/08/2025 22:08:18 07/08/20 25 07/08/2025 CBC w/ auto diff monocytes/10 0 leukocytes, automated, blood (obs) 13.9 % low: 3%high : 11% high Not Available Not Available 07/08/2025 22:08:18 07/08/20 25 07/08/2025 CBC w/ auto diff eosinophils/ 100 leukocytes, automated, blood (obs) 1.4 % low: 0%high : 7% Not Available Not Available 07/08/2025 22:08:18 07/08/20 25 07/08/2025 CBC w/ auto diff basophils/10 0 leukocytes, automated, blood (obs) 0.3 % low: 0%high : 1.6% Not Available Not Available 07/08/2025 22:08:18 07/08/2007/08/2025 CBC w/ auto diff immature granulocytes /100 leukocytes, automated, blood (obs) 0.5 % low: 0%high : 1% Not Available Not Available 07/08/2025 22:08:18 07/08/2007/08/2025 CBC w/ auto diff neutrophil count, absolute (anc), blood (obs) 4.01 text: 1.60 - 7.50 x10e9/ L Not Available Not Available 07/08/2025 22:08:18 07/08/2007/08/2025 CBC w/ auto diff lymphocytes, quantitative , blood, automated count (obs) 0.8 text: 1.00 - 4.40 x10e9/ L low Not Available Not Available 07/08/2025 22:08:18 07/08/2007/08/2025 CBC w/ auto diff monocytes, count, automated, blood (obs) 0.8 text: 0.15 - 1.00 x10e9/ L Not Available Not Available 07/08/2025 22:08:18 07/08/2007/08/2025 CBC w/ auto diff eosinophils, quant, blood 0.08 text: 0.00 - 0.60 x10e9/ L Not Available Not Available 07/08/2025 22:08:18 07/08/2007/08/2025 CBC w/ auto diff basophils, quant, auto, blood (obs) 0.02 text: 0.00 - 0.13 x10e9/ L Not Available Not Available 07/08/2025 22:08:18 07/08/20 25 07/08/2025 CBC w/ auto diff nucleated erythrocytes /100 leukocytes, ratio, automated, blood (obs) 0.5 text: <=0.0 /100 WBC high Not Available Not Available 07/08/2025 22:08:18 07/08/20 25 07/08/2025 CBC w/ auto diff lab interpretati on Abnorm al Not Available Not Available 22:08:18 07/08/2007/08/2025 CMP, serum or plasm a glucose, qn [mass/volume ], serum or plasma 202 mg/dL low: 70mg/d Lhigh: 99mg/d L high Not Available Not Available 07/08/2025 22:08:18 07/08/2007/08/2025 CMP, serum or plasm a sodium, serum or plasma 137 mmol/ L low: 136mmo l/Lhig h: 145mmo l/L Not Available Not Available 07/08/2025 22:08:18 07/08/2007/08/2025 CMP, serum or plasm a potassium, serum or plasma 4 mmol/ L low: 3.5mmo l/Lhig h: 5.1mmo l/L Not Available Not Available 07/08/2025 22:08:18 07/08/2007/08/2025 CMP, serum or plasm a chloride, serum or plasma 102 mmol/ L low: 98mmol /Lhigh : 107mmo l/L Not Available Not Available 07/08/2025 22:08:18 07/08/2007/08/2025 CMP, serum or plasm a CO2, (carbon dioxide), total, serum or plasma 26 mmol/ L low: 22mmol /Lhigh : 29mmol /L Not Available Not Available 07/08/2025 22:08:18 07/08/2007/08/2025 CMP, serum or plasm a calcium, serum or plasma 8.3 mg/dL low: 8.4mg/ dLhigh : 10.4mg /dL low Not Available Not Available 07/08/2025 22:08:18 07/08/2007/08/2025 CMP, serum or plasm a anion gap, blood (obs) 9 mmol/ L low: 6mmol/ Lhigh: 16mmol /L Not Available Not Available 07/08/2025 22:08:18 07/08/2007/08/2025 CMP, serum or plasm a BUN (blood urea nitrogen), serum or plasma 33 mg/dL low: 7mg/dL high: 26mg/d L high Not Available Not Available 07/08/2025 22:08:18 07/08/20 25 07/08/2025 CMP, serum or plasm a creatinine, serum or plasma 1.42 mg/dL low: 0.7mg/ dLhigh : 1.3mg/ dL high Not Available Not Available 07/08/2025 22:08:18 07/08/2007/08/2025 CMP, serum or plasm a alkaline phosphatase, serum or plasma 113 U/L low: 40U/Lh igh: 150U/L Not Available Not Available 07/08/2025 22:08:18 07/08/2007/08/2025 CMP, serum or plasm a ALT (alanine aminotransfe rase), serum or plasma 10 U/L low: 6U/Lhi gh: 57U/L Not Available Not Available 07/08/2025 22:08:18 07/08/2007/08/2025 CMP, serum or plasm a AST/SGOT (aspartate aminotransfe rase), serum or plasma 25 U/L low: 10U/Lh igh: 48U/L Not Available Not Available 07/08/2025 22:08:18 07/08/2007/08/2025 CMP, serum or plasm a protein, total, serum 5.9 text: 6.4 - 8.3 gm/dL low Not Available Not Available 07/08/2025 22:08:18 07/08/2007/08/2025 CMP, serum or plasm a albumin, serum or plasma 3.2 text: 3.1 - 4.5 gm/dL Not Available Not Available 07/08/2025 22:08:18 07/08/2007/08/2025 CMP, serum or plasm a bilirubin, total, serum or plasma 0.2 mg/dL low: 0.2mg/ dLhigh : 1.2mg/ dL Not Available Not Available 07/08/2025 22:08:18 07/08/2007/08/2025 CMP, serum or plasm a glomerular filtration rate/1.73 sq M predicted, qn, creatinine based formula (CKD-epi 2020), serum or plasma or blood 53 text: >=90 mL/min /1.73 m2 low Estim ated Glome rular Filtr ation Rate (eGFR ) calcu lated using the CKD-E PI Creat inine Equat ion (2020 ), per the Natio nal Kidne y Found ation and Ameri can Socie ty of Nephr ology recom menda tions . Not Available Not Available 07/08/2025 22:08:18 07/08/20 25 07/08/2025 CMP, serum or plasm a lab interpretati on Abnorm al Not Available Not Available 22:08:18 01/04/20 24 01/02/2024 (RUEL) ankle brach ial index * No observ ation record ed. [address] [place], [address], 03/11/2024 13:27:10 03/06/20 24 03/05/2024 elect rocar diogr am, routi ne ECG with at least 12 leads ; rosanne ng only, witho ut inter preta tion and repor t (PROC ) No observ ation record ed. [address] [place], [address], 03/11/2024 13:27:09 03/06/20 24 03/05/2024 elect rocar diogr am, routi ne ECG with at least 12 leads ; rosanne ng only, witho ut inter preta tion and repor t (PROC ) No observ ation record ed. [address] [facility], [place], [address], 03/11/2024 13:27:09 03/06/20 24 03/05/2024 XR, chest No observ ation record ed. [address] [place], [address], 03/11/2024 13:27:09 03/11/20 24 03/05/2024 elect rocar diogr am No observ ation record ed. [email or web address] Scheduling [address] [facility], [place], [address], 05/06/2024 11:02:18 03/12/20 24 03/05/2024 elect rocar diogr am, routi ne ECG with at least 12 leads ; rosanne ng only, witho ut inter preta tion and repor t (PROC ) No observ ation record ed. [facility] Scheduling [address], [place], [address], 08/02/2024 13:14:32 03/19/20 24 MRI thor spine wo con [facility] [address] [facility] [place] [address] INDICA TION: Bowel and bladde r incont inence . Cauda equina syndro me suspec anibal EXAMIN ATION: MRI of the thorac ic spine withou t contra st. TECHNI QUE: Multip lanar and multis equenc e MRI images of the thorac ic spine were were obtain ed withou t contra st. COMPAR KAMALJIT: None FINDIN GS: Table Games Shift Manager locali zer images were obtain ed from [...] thyroi d ultras ound. Referr ed By: Beba onical ly Signed By: Matias Miranda MD on 6:40 PM Interp reted By: Matias Miranda MD, 6:34 PM [facility], [place], [address], 08/02/2024 13:14:32 03/19/20 24 MRI lumb spine wo con [facility] [place] [address] INDICA TION: Bowel and bladde r incont [...] forami nal narrow ing. L3-L4: Disc and dog handler or trainer ior/ma rginal endpla te osteop hyte comple [...] ly Signed By: Matias Miranda MD on 6:54 PM Interp reted By: Matias Miranda MD, 6:48 PM [facility], [place], [address], 08/02/2024 13:14:32 03/21/20 24 ECG 12-le ad [facility] [place] [address] [facility] [address] [place] [address] [place] Test Date: 03-20 Pat Name: CAREY Belle Depart ment: 39 Patien t ID: [id number] Room: [id number] Gender : Male Techni niesha: CDNG : 4-30 Reques anibal By: BRANDY PEREZ Order Number : [id number] Heaven rico MD: Oxana Workman Measur ements Interv als Leupp Rate: 63 P: 79 LA: 138 QRS: 104 QRSD: 94 T: 57 QT: 389 QTc: 401 Interp retive Statem ents SINUS RHYTHM MARKED RIGHT AXIS DEVIAT ION [QRS AXIS > 100] No previo us ECG availa ble for compar kamaljit Electr onical ly signed by Oxana Workman at 5:25:0 3 CDT [facility], [place], [address], 08/02/2024 13:14:31 03/21/20 24 MRI lumb spine W con [facility] [place] [address] EXAMIN ATION: MRI of the lumbar spine [...] acquir ed. COMPAR KAMALJIT: Lumbar spine MRI FINDIN GS:Las t fully formed disc space [...] Signal artifa ct is noted in the dog handler or trainer ior right pelvis . The prosta te [...] pedicl es, disc space narrow ing, small dog handler or trainer ior disc/o steoph yte comple x, hypert [...] L5/S1: Disc space narrow ing with small dog handler or trainer ior disc/o steoph yte comple x and [...] and L4/L5 due to short pedicl es, dog handler or trainer ior disc/o steoph yte comple xes and [...] and PSA levels . Referr ed By: Electr onical ly Signed By: Haresh Grissom MD on 12:01 PM Interp reted By: Haresh Grissom MD, 11:50 AM [facility], [place], [address], 08/02/2024 13:14:31 03/21/20 MRI cerv spine wwo con [facility] [place] [address] EXAMIN ATION: MRI of the cervic al spine with and withou t contra st 024 INDICA TION:M ultipl e sclero sis, incide [...] retrol isthes is, short pedicl es, small dog handler or trainer ior disc/o steoph yte comple x, uncove rtebra l arthro amandeep and facet arthro amandeep causin g severe centra l canal stenos is and severe bilate ral forami nal stenos is. The thecal sac measur es 4 mm. C4/C5: Disc space narrow ing with 3 mm retrol isthes is, short pedicl es, small dog handler or trainer ior disc/o steoph yte comple x, uncove [...] retrol isthes is, short pedicl es, small dog handler or trainer ior disc/o steoph yte comple xes and [...] reted By: Haresh Grissom MD, 12:12 PM [facility], [place], [address], 08/02/2024 13:14:31 03/22/[address] soft tissu e neck W con [facility] [place] [place] [address] EXAMIN ATION: CT soft tissue neck with contra st ACCESS ION: [id number] EXAM DATE/T AMANDA: 11:07 PM REASON FOR EXAM: Swelli ng, concer n for mass tumor COMPAR KAMALJIT: MRI [...] osseou s abnorm ality is seen. IMPRES PREETIH: 1. Enlarg ed thyroi d contai loli [...] g with contra st. Referr ed By: Beba hyatt ly Signed By: Leonard longoria MD on 11:39 PM Interp reted By: Leonard longoria MD, 11:24 PM [facility] [place], [address], 08/02/2024 13:14:31 03/22/20 24 nmpns 1d [facility] [place] [address] Myocar dial Perfus ion Imagin g Pat.Na me: CAREY BURNETTE IUSPat .ID: [id number]Mario e: Refer. 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 Stat.: Inpati ent Reason for Study: [...] 60 % Max BP: 134/94 Max RPP: 88333 O2 sat: 99 % Sympto ms and Compli cation s: Termin ated: Protoc ol comple anibal Sympto ms: Shortn ess of breath , Nausea Compli cation s: None Stress ECG Interp : No signif icant change s 2023 12:24 PM Fab rico M.D. [facility], [place], [address], 08/02/2024 13:14:31 03/26/20 24 03/26/2024 yovanny nuous video EEG monit oring , techn ical compo nent; 12-26 hrs (PROC ) No observ ation record ed. [address], [address], 08/02/2024 13:14:31 03/26/20 24 MRI brain wo con [facility] [place] [place] [address] EXAMIN ATION: Brain MRI withou t contra [...] voids are noted within the intrac ranial project management intern al caroti d, verteb ral basila r is. The cerebe llopon trey angles and project management intern al audito ry canals are unrema rkable [...] reted By: Haresh Grissom MD, 9:27 AM [facility], [place], [address], 08/02/2024 13:14:31 03/27/20 24 ECG 12-le ad [facility] [place] [address] [facility] [address] [place] [address] [place] Test Date: 03-26 Pat Name: CAREY Belle Depart ment: 39 Patien t ID: [id number] Room: [facility] [facility] [place] Gender : Male Techni niesha: Nc : 12-25 Reques anibal By: MOI GUARDADO Order Number : [id number] Heaven rico MD: Omid Lilly Measur ements Interv als Leupp Rate: 56 P: 254 LA: 153 QRS: 95 QRSD: 95 T: 43 [...] by Omid Lilly at 23:40: 57 CDT [facility] [place], [address], 08/02/2024 13:14:31 05/07/[address] cerv spine wo con [facility] [address] [facility] [place] [address] [facility] [place] [address] [facility] [address] [place] [address] EXAM: CT CERV SPINE WO CON DATE: [...] reted By: Uday Yeung MD, 6:36 PM [facility] [place], [address], 08/02/2024 13:14:31 02/07/20 25 02/05/2025 CT, brain , w/o contr ast No observ ation record ed. [address], [place], [address], 02/14/2025 16:35:47 02/08/20 25 02/05/2025 CT, head, w/o contr ast No observ ation record ed. [address], [place], [address], 02/14/2025 16:36:10 Result Notes None recorded. Problems Name Problem SNOMED Code Status Onset Date Resolution Date Notes Provider Name and Address Organization Details Recorded Time Essential hypertension 15337509 Active Nereida Guzman MA null, [place] - [facility] 6 16:35:13 Diabetes mellitus 75632535 Active Joseph Rust MD Attn: Accounting, [address] [place], [address], [facility] - [facility] 6 17:04:33 Osteoarthrit is 132620795 Active Shannon Gale LPN [place], [place] - [facility] 6 09:28:23 Gastroesopha geal reflux disease 919103955 Active Joseph Rust MD Attn: Accounting, [address] [place], [address], [place] - [facility] 6 17:04:33 Cerebrovascu lar accident 047797155 Active Joseph Rust MD Attn: Accounting, [address] [place], [address], [place] [facility] 6 17:04:33 Cellulitis of finger 00960236 Active Nereida Guzman [place] null, [place] [facility] 6 16:35:13 Localized, 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 104822874 Active Nereida Guzman [place] [facility] 6 16:35:13 Adhesive capsulitis of shoulder 710465069 Active Nereida Guzman [place] [facility] 6 16:35:13 Scoliosis of lumbar spine 829752512 Active Nereida Guzman [place] [facility] 6 16:35:13 Impotence Active Joseph Rust MD Attn: Accounting, [address] [place], [address], [place] [facility] 6 17:04:33 Chronic obstructive pulmonary disease 38835534 Active 2020 Bill Lr [place], [place] [facility] 1 15:27:00 Neuropathy 795469294 Active 2020 Bill Lr [place], [place] [facility] 1 10:00:53 Notes:Some problems listed i n Documents: #[id number], #[id number], #[id number], #[id number], #[id number] could not be added to this patient's chart. Please review these documents and add these problems to the patient's chart manually as needed. Problem Notes Documentation Provider Name and Address Organization Details Recorded Time Progress Note : Patient Name: CAREY SANTOS Date of : 1955 Med Rec #: [id number] Date of Service: 12/19/2023 Disch Date: 12/19/2023 Chief Complaint: weakness HPI: We had the pleasure of seeing Mr. Santos in the clinic. He is accompanied by family. History is obtained from both of them and review of records. He has complicated past medical history including that of coronary disease, atrial fibrillation, diabetes, neuropathy, spinal stenosis, peripheral vascular disease, hyperlipidemia, hypertension among others. He recently had an episode where he was confused, not himself, and passed out. He is following up with cardiology for the episode of syncope. However he was admitted and had a MRI of the brain which did not show any acute infarct, showed mild to moderate burden of microvascular disease. Echo was normal. He is already on Eliquis, Plavix and statins. He has not had any similar episodes. There is no seizure-like activity. There is no alteration of awareness. There is no tongue biting, loss of bowel or bladder episode. The episode happened while he was sitting, and static standing, and became altered. There is no chest pain or palpitation that he can remember. He has also noticed that his legs have become weak progressively. He does have a history of spinal stenosis. He notes that his gait is wobbly and unsteady. He has had near falls, and falls in the past. There is numbness and teaming in his legs, as well as in his hands. He does have low back pain. The back pain can go down to his spine. There is no significant neck pain. There is no dizziness. There is no vertigo. There is no headache. There is no double vision. There is no similar history in the family. Review of Systems Gen: denies recent fever Eyes: denies double vision ENT: denies epistaxis Pulm: denies shortness of breath Cardiac: denies Chest pain Musc: has back pain Heme: denies easy bruising Neuro: See HPI Current Outpatient Medications Medication Sig Dispense Refill acetaminophen (TYLENOL) 325 MG tablet Take 2 tablets (650 mg total) by mouth every 6 (six) hours as needed for Pain. albuterol sulfate HFA 108 (90 Base) MCG/ACT inhaler Inhale 2 puffs into the lungs every 4 (four) hours as needed for Shortness of breath. apixaban (ELIQUIS) 5 MG tablet Take 1 tablet (5 mg total) by mouth 2 (two) times daily. atorvastatin (LIPITOR) 80 MG tablet Take 1 tablet (80 mg total) by mouth daily. benzonatate (TESSALON) 100 MG capsule Take 1 capsule (100 mg total) by mouth 3 (three) times daily. busPIRone (BUSPAR) 10 MG tablet Take 1 tablet (10 mg total) by mouth 3 (three) times daily. carvedilol (COREG) 25 MG tablet Take 1 tablet (25 mg total) by mouth 2 (two) times daily. clopidogrel (PLAVIX) 75 MG tablet Take 1 tablet (75 mg total) by mouth daily. DULoxetine (CYMBALTA) 60 MG capsule Take 1 capsule (60 mg total) by mouth daily. fluticasone-salmeterol (ADVAIR DISKUS) 250-50 MCG/ACT inhaler Inhale 1 puff into the lungs 2 (two) times daily. hydrALAZINE (APRESOLINE) 25 MG tablet Take 1 tablet (25 mg total) by mouth 2 (two) times daily. insulin glargine (LANTUS) 100 UNIT/ML injection (PEN) Inject 18 Units into the skin daily. insulin lispro, 1 Unit Dial, (HUMALOG) 100 UNIT/ML injection (PEN) Inject 2-10 Units into the skin 3 (three) times daily. ipratropium-albuterol (DUONEB) 0.5-2.5 (3) MG/3ML Solution Inhale 3 mLs into the lungs every 6 (six) hours as needed. losartan (COZAAR) 100 MG tablet Take 1 tablet (100 mg total) by mouth daily. nicotine (NICODERM CQ) 21 MG/24HR Place 1 patch (21 mg total) onto the skin daily. omeprazole (PRILOSEC) 20 MG capsule Take 1 capsule (20 mg total) by mouth daily. oxyCODONE-acetaminophen (PERCOCET) 5-325 MG tablet Take 1 tablet by mouth every 6 (six) hours as needed. polyethylene glycol (GLYCOLAX) 17 GM/SCOOP powder Take 17 g by mouth daily. pregabalin (LYRICA) 75 MG capsule Take 1 capsule (75 mg total) by mouth 3 (three) times daily. QUEtiapine (SEROQUEL) 25 MG tablet Take 1 tablet (25 mg total) by mouth daily. QUEtiapine (SEROQUEL) 50 MG tablet Take 1 tablet (50 mg total) by mouth daily. senna-docusate (SENOKOT-S) 8.6-50 MG tablet Take 1 tablet by mouth daily. vitamin B-12 (CYANOCOBALAMIN) 500 MCG tablet Take 1 tablet (500 mcg total) by mouth daily. No current facility-administered medications for this visit. Filed Vitals: 12/19/23 1040 BP: 107/62 Pulse: 90 Temp: 97.8 degreeF (36.6 degreeC) TempSrc: Temporal SpO2: 99% Weight: 65.8 kg (145 lb) Height: 1.676 m (5' 6) Past Medical History: Diagnosis Date Diabetes mellitus ([facility]) Hypertension Stroke ([facility]) History reviewed. No pertinent surgical history. Family History Problem Relation Name Age of Onset Hypertension Mother Social History Tobacco Use Smoking status: Former Types: Cigarettes Smokeless tobacco: Never Vaping Use Vaping status: Never Used Substance Use Topics Alcohol use: Not Currently Drug use: Not Currently MENTAL STATUS: Patient was alert, awake and oriented x3, regards and follows commands. Normal language. CRANIAL NERVES: II: Pupils were equal, round and reactive to light III, IV, : normal extraocular movements V: Normal jaw closure and opening. VII: face was symmetric. IX-X: palate elevates at midline. XI: normal symmetric shoulder shrug. XII: tongue was midline and strong. No fasciculations. MOTOR: Normal strength 5/5 on MRC scale in the upper and 4-/5 in lower extremities. SENSATION: Reduced to temperature until the ankles b/l , vibration is 4/8 b/l on feet, 8/8 on knees and fingers b/l, proprioception is impaired in feet .Romberg sign was positive. COORDINATION: Absent dysmetria on finger -nose -finger. No tremor. GAIT: Wide based, unsteady REFLEXES: Normal 2+/4 in upper and 0-1 in lower extremities. Babinski sign was absent. Peña's negative. Impression and Plan: In summary Mr. Santos has episodes of alteration of awareness, confusion, in the setting of multiple medical comorbidities, cardiac complications, atrial fibrillation, polypharmacy among others. His MRI of the brain done at an outside facility demonstrated acute infarct, it does show mild to moderate burden of microvascular disease. With regards to his stroke prevention, he is already on Eliquis, Plavix and atorvastatin. I recommend a LDL goal of less than 70 mg/dL, A1c of less than 6.5, and admit pressure goal of less than 130 x 80 mmHg. Seizures could be in differential. I will do extended EEG to further assess this. He will benefit from ambulatory EEG. He has also noticed weakness of his leg, gait issues, imbalance and falls. I suspect this is likely multifactorial. He does features of neuropathy. I will do nerve conduction EMG of the lower limb to assess the severity of neuropathy. The lesion involves segment assess presence of a lumbosacral radiculopathy. MRI of the lumbar spine shows severe multilevel neuroforaminal and spinal calcinosis. I will do MRI of the lumbar spine with contrast to further assess the presence of worsening spinal canal stenosis, based on which I will refer him to neurosurgery. He also has weakness of his arms, and has noticed gait issues, imbalance, and progressive loss of balance. I will do MRI of the cervical and thoracic spine with and without contrast to assess for the presence of a cervical and thoracic myelopathy. Based on that, he would also benefit from seeing neurosurgery. I will complete workup by doing nerve conduction EMG of the upper limb as well. I will also send first logic workup including vitamin B1, B6, B12, folic acid. I discussed fall precautions with him, and recommend having grab bars in the bathroom along with show stones. I also encouraged using a walker and a cane when he walks, and using wheelchair for long distances. He does have peripheral vascular disease for which she will follow-up with vascular specialist at an outside facility. I have discussed foot hygiene as well, and recommended to check his feet daily before going to bed for blisters and clots. I will call him with the results of MRI, and see him back in the EMG lab Time spent: 50 total minutes reviewing records, history that was separately obtained, performing the exam, providing education to the patient/caregiver, ordering medicine and documenting in the medical record. DENILSON STEINER MD Signed by: DENILSON STEINER 12/19/2023 8:24 PM Joseph Rust MD Attn: [facility],[address] [place], [address], [facility] 2023 17:02:23 Progress Note : Patient Name: CAREY SANTOS Date of : 1955 Med Rec #: [id number] Date of Service: 03/19/2024 Disch Date: 03/19/2024 Chief Complaint: Back pain HPI: We had the pleasure of seeing Mr. Santos in the clinic. He is accompanied by his family. History is obtained from the patient, family and review of records. I have previously seen for weakness. At that time he had history of stroke, and microvascular disease. I had ordered extensive testing for him to evaluate his spine. In addition had also ordered EMG. Unfortunately he has not been able to do any other testing. He notes that he was hospitalized recently 2 times because of COPD exacerbation. He notes that his back pain has worsened. His leg weakness has worsened. He has difficulty walking, he is unsteady, and leg gives out. He has also been losing control of his bladder. This is new and happening the last few weeks. There is no numbness or tingling in the hands. There is no bulbar symptoms. There is no constitutional symptoms. Given these changes, I recommend admission to the hospital to get further MRI imaging of the lumbar spine, and neurosurgery consult. Patient is okay with this. eview of Systems Gen: denies recent fever Eyes: denies double vision ENT: denies epistaxis Pulm: denies shortness of breath Cardiac: denies Chest pain Musc: has back pain Heme: denies easy bruising Neuro: See HPI No current facility-administered medications for this visit. No current outpatient medications on file. Facility-Administered Medications Ordered in Other Visits Medication Dose Route Frequency Provider Last Rate Last Admin acetaminophen (TYLENOL) tablet 650 mg 650 mg Oral Q4H PRN Veda Cross DO [START ON 03/20/2024] albuterol (PROVENTIL) (2.5 MG/3ML) 0.083% nebulizer solution 2.5 mg 2.5 mg Nebulization 3x daily - RT Russ Mcfadden MD albuterol sulfate HFA 108 (90 Base) MCG/ACT inhaler 2 puff 2 puff Inhalation Q4H PRN Veda Cross DO [START ON 03/20/2024] amLODIPine (NORVASC) tablet 5 mg 5 mg Oral Daily Veda Diego-Brauman, DO apixaban (ELIQUIS) tablet 5 mg 5 mg Oral Q12H Veda Diego-Brauman, DO 5 mg at 03/19/242241 [START ON 03/20/2024] atorvastatin (LIPITOR) tablet 80 mg 80 mg Oral Daily Veda Diego-Brauman, DO carvedilol (COREG) tablet 25 mg 25 mg Oral BID Veda Diego-Brauman, DO 25 mg at 03/19/242241 [START ON 03/20/2024] clopidogrel (PLAVIX) tablet 75 mg 75 mg Oral Daily Veda Diego-Doug, DO dextrose 10 % bolus infusion 125-250 mL 125-250 mL Intravenous PRN Vedatoi Cross, DO [START ON 03/20/2024] DULoxetine (CYMBALTA) capsule 60 mg 60 mg Oral Daily Veda Tay, DO [START ON 03/20/2024] fluticasone-salmeterol (ADVAIR HFA) 230-21 MCG/ACT inhaler 2 puff 2 puff Inhalation 2 times daily Russ Mcfadden MD glucagon injection 1 mg 1 mg Intramuscular Once PRN Vedatoi Cross, DO glucose oral gel 32-64 mL 15-30 g of dextrose Oral PRN Vedatoi Cross, DO HYDROcodone-acetaminophen (NORCO) 10-325 MG tablet 1 tablet 1 tablet Oral Q4H PRN Vedatoi Cross, DO HYDROmorphone (DILAUDID) injection 0.5 mg 0.5 mg Intravenous Q2H PRN Veda Diego-Doug, DO hydrOXYzine (ATARAX) tablet 10 mg 10 mg Oral 4x Daily PRN Vedatoi Cortez-Doug, DO insulin glargine (LANTUS) injection 13 Units 0.2 Units/kg Subcutaneous Nightly at bedtime Veda Diego-Doug, DO 13 Units at 03/19/242241 [START ON 03/20/2024] insulin lispro (HUMALOG) injection 0-14 Units 0-14 Units Subcutaneous TID AC Veda Tay, DO And insulin lispro (HUMALOG) injection 0-7 Units 0-7 Units Subcutaneous Nightly at bedtime Veda Diego-Doug, DO [START ON 03/20/2024] losartan (COZAAR) tablet 100 mg 100 mg Oral Daily Veda Diego-Doug, DO [START ON 03/20/2024] montelukast (SINGULAIR) tablet 10 mg 10 mg Oral Daily Veda Diego-Doug, DO naLOXone (NARCAN) injection 0.4 mg 0.4 mg Intravenous PRN Veda Diego-Doug, DO [START ON 03/20/2024] pantoprazole EC (PROTONIX) tablet 20 mg 20 mg Oral Daily Veda Diego-Doug, DO pregabalin (LYRICA) capsule 75 mg 75 mg Oral TID Veda Tay, DO 75 mg at 03/19/24 2242 [START ON 03/20/2024] tiotropium (SPIRIVA RESPIMAT) 2.5 MCG/ACT inhaler 2 puff 2 puff Inhalation Daily Veda Tya, DO Filed Vitals: 03/19/24 1258 BP: 113/84 Pulse: 65 Temp: 98.2 degreeF (36.8 degreeC) TempSrc: Temporal SpO2: 99% Weight: 65.8 kg (145 lb) Height: 1.676 m (5' 6) Past Medical History: Diagnosis Date COPD (chronic obstructive pulmonary disease) ([facility]) Diabetes mellitus ([facility]) GERD (gastroesophageal reflux disease) Hypertension Spinal stenosis Stroke ([facility]) Past Surgical History: Procedure Laterality Date ABDOMINAL SURGERY Family History Problem Relation Name Age of Onset Hypertension Mother Social History Tobacco Use Smoking status: Former Types: Cigarettes Smokeless tobacco: Never Vaping Use Vaping status: Never Used Substance Use Topics Alcohol use: Not Currently Drug use: Not Currently MENTAL STATUS: Patient was alert, awake and oriented x3, regards and follows commands. Normal language. CRANIAL NERVES: II: Pupils were equal, round and reactive to light III, IV, : normal extraocular movements V: Normal jaw closure and opening. VII: face was symmetric. IX-X: palate elevates at midline. XI: normal symmetric shoulder shrug. XII: tongue was midline and strong. No fasciculations. MOTOR: Normal strength 5/5 on MRC scale in the upper and 3-/5 in lower extremities. SENSATION: Reduced to temperature until the thighs b/l , vibration is 4/8 b/l on feet, 8/8 on knees and fingers b/l, proprioception is impaired in feet .Romberg sign was positive. COORDINATION: Absent dysmetria on finger -nose -finger. No tremor. GAIT: Wide based, unsteady REFLEXES: Normal 2+/4 in upper and 0 in lower extremities. Plantars are mute. Peña's negative. Impression and Plan: In summary Mr. Santos has progressive worsening lower limb weakness, gait and speech, imbalance, falls, near falls, and recent loss of bladder control. This is in the setting of severe low back pain that is going down his leg. I am concerned about cauda equina especially with the worsening lower limb weakness, and bladder incontinence. I will admit him to the hospital, get MRI of the lumbar spine without contrast to assess the severity of lumbar Stenosis, and to look for cauda equina changes. Patient will, I will contact neurosurgery to see if he would benefit from surgical intervention. He does have history of stroke, and significant microvascular disease. I have asked him to continue home medications,With regards to his stroke prevention, he is already on Eliquis, Plavix and atorvastatin. I recommend a LDL goal of less than 70 mg/dL, A1c of less than 6.5, and admit pressure goal of less than 130 x 80 mmHg. I will see him back in 3 months. Time spent: 30 total minutes reviewing records, history that was separately obtained, performing the exam, providing education to the patient/caregiver, ordering medicine and documenting in the medical record. DENLISON STEINER MD Signed by: DENILSON STEINER 03/19/2024 11:17 PM Joseph Rust MD Attn: [facility],[address] [place], [address], [facility] 08/02/2024 13:14:33 Consult Note : [facility] [address] [place] [address] Patient Name: CAREY SANTOS Date of : 1955 Med Rec #: [id number] Date of Service: 03/21/2024 Disch Date: [facility] [address] [place], [place] [address] Cardiology Consult Indication for Consult Advice and opinion regarding preoperative cardiovascular risk stratification History Mr. Carey Santos is a 68-year-old male who has a PMH significant for HTN, recurrent stroke, PVD s/p stents, DM 2, HFpEF, COPD, moderate to severe spinal stenosis. He was admitted on 03/19/2024 2:38 PM for back pain, bowel and bladder incontinence. He has noted worsening urinary incontinence in the past 2 weeks and 2 episodes of bowel incontinence. No leg edema. He has ongoing shortness of breath and chest tightness. He had a recent ED visits for shortness of breath, needed steroids and since then his breathing has improved somewhat but he remains short of breath with minimal exertion. He has cut down on his smoking, has 5 cigarettes/day. Past Medical History: Diagnosis Date COPD (chronic obstructive pulmonary disease) ([facility]) Diabetes mellitus ([facility]) GERD (gastroesophageal reflux disease) Hypertension Spinal stenosis Stroke ([facility]) Past Surgical History: Procedure Laterality Date ABDOMINAL SURGERY Social History Tobacco Use Smoking status: Former Types: Cigarettes Smokeless tobacco: Never Vaping Use Vaping status: Never Used Substance Use Topics Alcohol use: Not Currently Drug use: Not Currently Family History Problem Relation Name Age of Onset Hypertension Mother albuterol 2.5 mg Nebulization 3x daily - RT amLODIPine 5 mg Oral Daily atorvastatin 80 mg Oral Daily carvedilol 25 mg Oral BID DULoxetine 60 mg Oral Daily enoxaparin 40 mg Subcutaneous Nightly (enoxaparin) ferrous sulfate EC 324 mg Oral Every Other Day fluticasone-salmeterol 2 puff Inhalation 2 times daily insulin glargine 0.2 Units/kg Subcutaneous Nightly at bedtime insulin lispro 0-14 Units Subcutaneous TID AC And insulin lispro 0-7 Units Subcutaneous Nightly at bedtime losartan 100 mg Oral Daily montelukast 10 mg Oral Daily pantoprazole EC 20 mg Oral Daily pregabalin 75 mg Oral TID tiotropium 2 puff Inhalation Daily acetaminophen, albuterol sulfate HFA, dextrose 10 % bolus, glucagon, glucose, HYDROcodone-acetaminophen, HYDROmorphone, hydrOXYzine, naLOXone, ondansetron Prior to Admission medications Medication Sig Start Date End Date Taking? Authorizing Provider amLODIPine (NORVASC) 5 MG tablet Take 1 tablet (5 mg total) by mouth daily. 09/29/23 Yes Default History Genericprovider atorvastatin (LIPITOR) 80 MG tablet Take 1 tablet (80 mg total) by mouth daily. 06/01/23 Yes Default History Genericprovider budesonide-formoterol (SYMBICORT) 160-4.5 MCG/ACT inhaler Inhale 2 puffs into the lungs 2 (two) times daily. 02/20/24 Yes Default History Genericprovider carvedilol (COREG) 25 MG tablet Take 1 tablet (25 mg total) by mouth 2 (two) times daily. 10/03/23 Yes Default History Genericprovider clopidogrel (PLAVIX) 75 MG tablet Take 1 tablet (75 mg total) by mouth daily. 09/29/23 11/21/24 Yes Default History Genericprovider doxycycline hyclate (VIBRAMYCIN) 100 MG capsule Take 1 capsule (100 mg total) by mouth 2 (two) times daily. x10 days 03/08/24 Yes Default History Genericprovider DULoxetine (CYMBALTA) 60 MG capsule Take 1 capsule (60 mg total) by mouth daily. 06/27/23 11/22/24 Yes Default History Genericprovider ELIQUIS 5 MG tablet Take 1 tablet (5 mg total) by mouth every 12 (twelve) hours. Yes Default History Genericprovider glipiZIDE (GLUCOTROL) 5 MG tablet Take 1 tablet (5 mg total) by mouth 2 (two) times daily before meals. Yes Default History Genericprovider hydrOXYzine (ATARAX) 10 MG tablet Take 1 tablet (10 mg total) by mouth 2 (two) times a day. 03/11/24 Yes Default History Genericprovider INCRUSE ELLIPTA 62.5 MCG/ACT AEROSOL POWDER, BREATH ACTIVATED Inhale 1 puff into the lungs daily. 03/11/24 Yes Default History Genericprovider insulin glargine (LANTUS) 100 UNIT/ML injection (PEN) Inject 18 Units into the skin nightly at bedtime. Yes Default History Genericprovider insulin lispro, 1 Unit Dial, (HUMALOG) 100 UNIT/ML injection (PEN) Inject 5 Units into the skin 3 (three) times daily before meals. Yes Default History Genericprovider losartan (COZAAR) 100 MG tablet Take 1 tablet (100 mg total) by mouth daily. 06/01/23 Yes Default History Genericprovider montelukast (SINGULAIR) 10 MG tablet Take 1 tablet (10 mg total) by mouth daily. 03/04/24 Yes Default History Genericprovider omeprazole (PRILOSEC) 20 MG capsule Take 1 capsule (20 mg total) by mouth daily. 03/11/24 Yes Default History Genericprovider oxyCODONE-acetaminophen (PERCOCET) 7.5-325 MG tablet Take 1 tablet by mouth every 6 (six) hours as needed for Pain. 02/06/24 Yes Default History Genericprovider predniSONE (DELTASONE) 20 MG tablet Take 1 tablet (20 mg total) by mouth 2 (two) times daily. Yes Default History Genericprovider pregabalin (LYRICA) 75 MG capsule Take 1 capsule (75 mg total) by mouth 3 (three) times daily. 11/28/23 Yes Default History Genericprovider senna-docusate (SENOKOT-S) 8.6-50 MG tablet Take 1 tablet by mouth 2 (two) times a day. 12/14/23 Yes Default History Genericprovider albuterol (PROVENTIL) (2.5 MG/3ML) 0.083% nebulizer solution Take 3 mLs (2.5 mg total) by nebulization 3 (three) times daily. 03/11/24 Default History Genericprovider albuterol sulfate HFA 108 (90 Base) MCG/ACT inhaler Inhale 2 puffs into the lungs every 4 (four) hours as needed for Shortness of breath. 11/22/23 Default History Genericprovider Allergies Allergen Reactions Metformin Other (see comment) Lactic acidosis Vancomycin Palpitations and Shortness of Breath Review of Systems Constitutional: Negative for chills and fever. HENT: Negative for hearing loss and nosebleeds. Eyes: Negative for blurred vision. Respiratory: Positive for shortness of breath. Negative for cough and wheezing. Cardiovascular: Positive for chest pain. Negative for palpitations, orthopnea, leg swelling and PND. Gastrointestinal: Negative for heartburn, nausea and vomiting. Genitourinary: Negative for flank pain and hematuria. Musculoskeletal: Positive for joint pain. Skin: Negative for rash. Neurological: Positive for tingling, sensory change, focal weakness and weakness. Negative for speech change, seizures and loss of consciousness. Endo/Heme/Allergies: Does not bruise/bleed easily. Psychiatric/Behavioral: Negative for hallucinations and substance abuse. Physical Exam Filed Vitals: 03/21/24 0453 03/21/24 0721 03/21/24 0903 03/21/24 1139 BP: (!) 145/72 (!) 166/68 117/55 Pulse: 66 65 68 Resp: 18 18 18 Temp: 98.6 degreeF (37 degreeC) 98.1 degreeF (36.7 degreeC) 98.5 degreeF (36.9 degreeC) TempSrc: Oral Oral Oral SpO2: 100% 100% 96% 97% Weight: 70.1 kg (154 lb 8.7 oz) Height: Physical Exam: Physical Exam Constitutional: General: He is not in acute distress. Appearance: Normal appearance. He is well-developed. HENT: Head: Normocephalic. Nose: No mucosal edema. Mouth/Throat: Mouth: Mucous membranes are moist. Pharynx: No oropharyngeal exudate. Eyes: Conjunctiva/sclera: Conjunctivae normal. Neck: Vascular: No JVD. Cardiovascular: Rate and Rhythm: Normal rate and regular rhythm. Chest Wall: PMI is not displaced. Heart sounds: S1 normal and S2 normal. No murmur heard. No gallop. Pulmonary: Effort: Respiratory distress present. Breath sounds: Normal breath sounds. Abdominal: General: There is no abdominal bruit. Palpations: There is no mass. Tenderness: There is no abdominal tenderness. Musculoskeletal: General: No deformity. Normal range of motion. Cervical back: Neck supple. Right lower leg: No edema. Left lower leg: No edema. Skin: General: Skin is warm and dry. Neurological: Mental Status: He is alert and oriented to person, place, and time. Psychiatric: Behavior: Behavior normal. Thought Content: Thought content normal. Recent Labs Lab 03/19/24 1850 03/20/24 0732 03/21/24 0445 WBC 8.19 6.07 5.34 RBC 3.45* 3.63* 3.39* HGB 7.7* 8.1* 7.4* HCT 27.1* 29.0* 26.4* MCV 78.6* 79.9* 77.9* MCH 22.3* 22.3* 21.8* MCHC 28.4* 27.9* 28.0* PLT 303 281 254 Recent Labs Lab 03/19/24 1504 03/20/24 0732 03/21/24 0445 NA 135* 136 137 K 4.4 4.1 3.9 CL 101 101 102 CO2 29.7 31.8 33.1* BUN 18 17 18 CR 1.04 0.81 0.89 GLU 204* 109* 159* BUNCREATININ 17.3 21.0 20.2 estimated creatinine clearance is 70.7 mL/min (by C-G formula based on SCr of 0.89 mg/dL). Recent Labs Lab 03/19/24 1504 03/20/24 0732 03/21/24 0445 CA 8.7 8.8 8.0* Recent Labs Lab 03/19/24 1504 TP 5.9* ALB 3.0* TBIL 0.3 ALKP 112 AST 31 ALT 34 Recent Labs Lab 03/19/24 1437 INR 1.3 Lab Results Component Value Date HGBA1C 7.2 (H) 03/20/2024 TSH 1.490 03/20/2024 No results for input(s): TROP, TROPIWB in the last 168 hours. No results found for this visit on 03/19/24 (from the past 168 hour(s)). No results found for this visit on 03/19/24 (from the past 168 hour(s)). EKG: Results for orders placed or performed during the hospital encounter of 03/19/24 ECG 12 lead Narrative [address] Test Date: 2024-03-20 Pat Name: CAREY SANTOS Department: 40 Room: [facility] [place] [facility] [place] Gender: Male [employer] Tier Off: DAVIAN : 1955 Requested By: BRANDY MAY Order Number: [id number] Reading MD: Oxana Workman Measurements Intervals Leupp Rate: 63 P: 79 LA: 138 QRS: 104 QRSD: 94 T: 57 QT: 389 QTc: 401 Interpretive Statements SINUS RHYTHM MARKED RIGHT AXIS DEVIATION [QRS AXIS > 100] No previous ECG available for comparison Imaging: MRI CERV SPINE WWO CON Narrative: EXAMINATION:MRI of the cervical spine with and without contrast 03/21/2024 INDICATION:Multiple sclerosis, incidental bone lesion TECHNIQUE: Multiplanar multi sequence MR imaging of the cervical spine was performed prior to and following the administration of 14 mL Dotarem contrast intravenously. COMPARISON: None FINDINGS:Cervical spine is in anatomic alignment. Is preservation of vertebral body heights and disc spaces. Bone marrow signal is within normal limits with no acute fracture or dislocation. No abnormal enhancement. Moderate to severe patchy areas of increased T2 and STIR signal are noted within the kemar and midbrain. The cervical spinal cord is unremarkable in course and signal. There is a heterogeneous enhancing mass within the left lobe of thyroid gland measuring up to 8.9 cm. There is a 2 x 1 cm enhancing nodule within the right lobe of the thyroid gland. No prevertebral edema or retropharyngeal fluid collection. No other paraspinal mass or fluid collection No stenosis at the foramen magnum or C1/C2 level C2/C3: Uncovertebral facet arthropathy causing moderate bilateral foraminal stenosis C3/C4: Disc space narrowing with 3 mm retrolisthesis, short pedicles, small posterior disc/osteophyte complex, uncovertebral arthropathy and facet arthropathy causing severe central canal stenosis and severe bilateral foraminal stenosis. The thecal sac measures 4 mm. C4/C5: Disc space narrowing with 3 mm retrolisthesis, short pedicles, small posterior disc/osteophyte complex, uncovertebral arthropathy and facet arthropathy causing severe central canal stenosis and severe bilateral foraminal stenosis. The thecal sac measures 4 mm C5/C6: Disc space narrowing disc bulging and facet arthropathy causing moderate bilateral foraminal stenosis. C6/C7: Negative C7/T1: Negative. There is a 1.3 cm cystic lesion along the lateral aspect of the left lobe of the thyroid gland. Impression: IMPRESSION: 1. Severe central canal stenosis at C3/C4 and C4/C5 due to grade 1 retrolisthesis, short pedicles, small posterior disc/osteophyte complexes and facet arthropathy. No cervical cord signal abnormality or abnormal enhancement. 2. Severe bilateral neural foraminal stenosis at C3/C4 and C4/C5. Moderate bilateral foraminal stenosis at C2/C3 and C5/C6. 3. Indeterminant 8.9 cm enhancing mass within the left lobe of the thyroid gland. 2.1 cm lesion within the right lobe of the thyroid gland. Further evaluation with nonemergent ultrasound is recommended. 4. Nonspecific 1.3 cm cystic lesion partially visualized lateral to the left lobe of the thyroid gland. Metastatic cervical lymph node cannot be excluded. Further evaluation with a nonemergent contrast enhanced neck soft tissue CT is recommended. Referred By: Interpreted By: Haresh Grissom MD, 03/21/2024 12:12 PM MRI LUMB SPINE W CON Narrative: EXAMINATION:MRI of the lumbar spine without contrast 03/19/2024 INDICATION:Back pain, evaluate for L3/L4 discitis TECHNIQUE: Multiplanar multisequence MR imaging of the lumbar spine was performed without intravenous contrast. The patient was reportedly unable to tolerate completion of the exam. No contrast enhanced images of the lumbar spine were acquired. COMPARISON: Lumbar spine MRI 03/19/2024 FINDINGS:Last fully formed disc space presumably represent L5/S1. There is 20 degrees of lumbar dextroscoliosis measured from L3 to L5. There is preservation of vertebral body heights and disc spaces. There is decreased STIR signal within the L3 and L4 vertebral bodies. Severe disc space narrowing at L3/L4. There is increased STIR signal within the L3/L4 disc space. There is a mild protrusion within the adjoining L3 and L4 endplates. No acute fracture or dislocation. No spondylolisthesis. The conus terminates at T12/L1 and is unremarkable contour and signal. No paraspinal mass or fluid collection. The visualized abdominal aorta is unremarkable in contour. There is a 2.7 cm T2 hyperintense lesion within the anterior left renal cortex, not fully characterized but statistically most likely reflecting a cyst. There is right renal cortical atrophy. Signal artifact is noted in the posterior right pelvis. The prostate gland is enlarged. T11/T12: Disc space narrowing and facet arthropathy causing moderate bilateral foraminal stenosis T12/L1: Disc space narrowing and facet arthropathy causing mild bilateral foraminal stenosis. L1/L2: Disc space narrowing disc bulging and facet arthropathy causing severe right neural foraminal stenosis and mild left neural foraminal stenosis. L2/L3: Disc space narrowing, disc bulging and facet arthropathy mild central canal stenosis and mild bilateral foraminal stenosis. The thecal sac measures 7 mm L3/L4: Short pedicles, disc space narrowing, small posterior disc/osteophyte complex, hypertrophic facet arthropathy and bilateral foraminal osteophytes causing severe central canal stenosis and severe bilateral neural foraminal stenosis. The thecal sac measures 2 mm L4/L5: Disc space narrowing, short pedicles, disc bulging and hypertrophic facet arthropathy causing severe central canal stenosis and severe left neural foraminal stenosis and mild right neural foraminal stenosis. Thecal sac measures 3 mm L5/S1: Disc space narrowing with small posterior disc/osteophyte complex and facet arthropathy causing moderate central canal stenosis and severe left neural foraminal stenosis and moderate right neural foraminal stenosis. Impression: IMPRESSION: 1. There is severe disc space narrowing at L3/L4 with a mild endplate erosive changes and edema type signal within the L3/L4 disc space. Findings are compatible with advanced degenerative changes. Early or mild discitis cannot be excluded. No bone marrow edema to suggest osteomyelitis. Short-term follow-up MRI may be helpful if clinically indicated. 2. 20 degrees of lumbar dextroscoliosis. No acute fracture or dislocation. 3. Severe central canal stenosis at L3/L4 and L4/L5 due to short pedicles, posterior disc/osteophyte complexes and hypertrophic facet arthropathy. Moderate central canal stenosis at L5/S1. Mild central canal stenosis at L2/L3. 4. Severe neuroforaminal stenosis on the right at L1/L2 and L3/L4. Moderate neural foraminal stenosis on the right at T11/T12 and L5/S1. 5. Severe neuroforaminal stenosis on the left at L3/L4 L4/L5 and L5/S1. Moderate neural foraminal stenosis on the left at T11/T12. 6. Prostatomegaly. Please correlate with physical exam and PSA levels. Referred By: Interpreted By: Haresh Grissom MD, 03/21/2024 11:50 AM ECG 12 lead [place] [address] Test Date: 2024-03-20 Pat Name: CAREY SANTOS Department: 40 Room: [id number] Gender: Male [employer] Tier Off: DAVIAN : 1955 Requested By: BRANDY MAY Order Number: [id number] Reading MD: Oxana Workman Measurements Intervals Leupp Rate: 63 P: 79 LA: 138 QRS: 104 QRSD: 94 T: 57 QT: 389 QTc: 401 Interpretive Statements SINUS RHYTHM MARKED RIGHT AXIS DEVIATION [QRS AXIS > 100] No previous ECG available for comparison Assessment Back pain Plan Cardiovascular risk stratification: No significant change in troponin 46-49. Appears euvolemic, no concerning arrhythmias. However, given ongoing chest tightness and shortness of breath, will keep NPO at midnight for a pharmacological stress test for risk stratification. Continue statin and beta gena perioperatively. Resume clopidogrel as soon as medically safe given history of stroke. Recurrent strokes: 03/15/23 had right internal capsule acute ischemic stroke involving his left upper extremity greater than left lower extremity, with MRI of the brain showing right internal capsule posterior limb acute ischemia. Atorvastatin 80mg qhs, goal LDL <70mg/dL, resume clopidogrel and apixaban once medically safe from bleeding risk standpoint. PVD: S/p bilateral common iliac artery stents, CTA February 2023 with stenosis of the left carotid bulb 60-70% and stenosis of the right carotid bulb less than 50%. CTA of the abdominal aorta and bilateral iliofemoral runoff 11/08/2022: Severe atherosclerotic disease of the abdominal aorta, iliac arteries, femoral arteries, and their distal branches. Occlusion of the left internal iliac artery. Multifocal occlusion of bilateral anterior and posterior tibial arteries. Focal dissection of the distal right external iliac artery. Medical management with high intensity statin, apixaban, tobacco cessation. Close follow up with Dr. Ley. Dyslipidemia: Atorvastatin 80mg qhs, goal LDL <70mg/dL. HTN: Carvedilol 25mg bid, losartan 100mg qd, amlodipine 5mg qd. Paroxysmal atrial fibrillation: Apixaban for stroke prevention, carvedilol for rate control. Tobacco use disorder: Strongly encourage cessation. Maria Eugenia Jean MD Signed by: MARIA EUGENIA JEAN 03/21/2024 4:35 PM Joseph Rust MD Attn: Accounting,[address] [place], [address], [facility] 08/02/2024 13:14:34 Consult Note : [facility] [place] [address] Patient Name: CAREY SANTOS Date of : 1955 Med Rec #: [id number] Date of Service: 03/20/2024 Disch Date: Neurosurgery Consultation Note History Thank you for allowing us to evaluate this 68-year-old male in neurosurgical consultation. Patient has an extensive past medical history significant for DM type 2 with last Hgb A1c of 7.2% this admission, HTN, stroke with chronic left hemiparesis, COPD, PVD,CAD, GERD, CHF, A. Fib, neuropathy, depression, chronic pain disorder. Seen March 2023 by [facility] neurosurgery for chronic back and right leg pain, urinary incontinence, deconditioning, and difficulty with ambulation. It appears at that time he was being evaluated for cervical stenosis as well with plans for possible intervention. Appears he was on Plavis and Eliquis, discontinued at 0307 today. Patient also follows with [facility] neurology. He presented to the ED yesterday per patient at the recommendation of his neurologist d/t worsening low back pain and LE weakness, r/o cauda equina syndrome for which neurosurgery was consulted. Patient in bed during examination. His niece is at bedside. Niece reports recently moving to the area to live with patient to help take care of him. She has been appointed POA per patient's request. Information obtained from both patient and niece, as well as chart review. Patient complains of chronic back pain and right leg pain. Back pain is significantly worse than his right leg. Right leg pain involves buttock, posterior thigh to his calf. Calf pain is significantly worse compared to remainder of leg. He reports intermittent chronic urinary incontinence that only occurs in his sleep. He has no incontinence during the day and is able to fully control his bladder per patient's report. Per nursing, he has had no issues with urinary incontinence this admission. He has had one episode of complete bowel incontinence awhile ago. Denies saddle anesthesia. Tells me his back feels numb. He has chronic numbness and tingling of both feet. No left leg pain. Per patient and his niece, he is able to walk in the house and transfer but mostly uses a motorized scooter for mobilization as he reports feeling significant back pain and weakness. Separately, patient reports chronic left hemiparesis 2/2 stroke, weakness is worse in his arm compared to his leg. At one point he reported neck pain but no arm pain but this has since resolved. He states he has chronic numbness/tingling in his hands from wrist to fingers. Patient is lethargic throughout exam and falls asleep frequently requiring stimulation to continue with PE. Voided 300 cc, PVR revealed 30 cc. MRI c-spine is pending per primary service. MRI lumbar spine WWO contrast is pending to r/o potential discitis at L3-4 given abnormal imaging. At this time, he remains afebrile. No leukocytosis. CRP mildly elevated. SED rate WNL. Procal WNL. Orders Placed This Encounter Procedures Inpatient Consult to Neurosurgery [facility] Standing Status: Standing Number of Occurrences: 1 Order Specific Question: Reason for Consult? Answer: Back pain Order Specific Question: Has the consulting provider been contacted? Answer: Yes Order Specific Question: Who was the provider consulted? Answer: Dr. Harrison Order Specific Question: Location: Answer: [facility] Past Medical History: Diagnosis Date COPD (chronic obstructive pulmonary disease) ([facility]) Diabetes mellitus ([facility]) GERD (gastroesophageal reflux disease) Hypertension Spinal stenosis Stroke ([facility]) Past Surgical History: Procedure Laterality Date ABDOMINAL SURGERY Social History Tobacco Use Smoking status: Former Types: Cigarettes Smokeless tobacco: Never Vaping Use Vaping status: Never Used Substance Use Topics Alcohol use: Not Currently Drug use: Not Currently Family History Problem Relation Name Age of Onset Hypertension Mother albuterol 2.5 mg Nebulization 3x daily - RT amLODIPine 5 mg Oral Daily atorvastatin 80 mg Oral Daily carvedilol 25 mg Oral BID DULoxetine 60 mg Oral Daily ferrous sulfate EC 324 mg Oral Every Other Day fluticasone-salmeterol 2 puff Inhalation 2 times daily insulin glargine 0.2 Units/kg Subcutaneous Nightly at bedtime insulin lispro 0-14 Units Subcutaneous TID AC And insulin lispro 0-7 Units Subcutaneous Nightly at bedtime losartan 100 mg Oral Daily montelukast 10 mg Oral Daily pantoprazole EC 20 mg Oral Daily pregabalin 75 mg Oral TID tiotropium 2 puff Inhalation Daily acetaminophen, albuterol sulfate HFA, dextrose 10 % bolus, glucagon, glucose, HYDROcodone-acetaminophen, HYDROmorphone, hydrOXYzine, naLOXone, ondansetron Allergies Allergen Reactions Metformin Other (see comment) Lactic acidosis Vancomycin Palpitations and Shortness of Breath Physical Exam Filed Vitals: 03/20/24 1416 03/20/24 1600 03/20/24201803/20/24 2034 BP: (!) 162/73 (!) 142/66 Pulse: 66 67 Resp: 18 Temp: 99.1 degreeF (37.3 degreeC) 98.4 degreeF (36.9 degreeC) TempSrc: Oral Oral SpO2: 92% 98% 98% 100% Weight: Height: Neurologic Exam: Higher order function alert and oriented x 4 (person, place, situation, date) Shellie Coma Scale 15, speech fluent. Frequently falls asleep through interview/exam requiring stimulation Cranial nerves III-XII intact with exception of XL 2/2 left weak shoulder shrug Cerebellar examination no dysmetria with finger-nose testing on the right, FRANCESCA on the left 2/2 left hemiparesis RUE and RLE strength intact on detailed motor exam, grossly 5/5 LUE and LLE motor as follows: Deltoid- 2 Biceps- 4- Triceps- 5 WE, FE, intrinsics 0 (hand contracted) Minimal able to stitcher standard machine d/t hand contracted IP- 4 Quad- 4 Hamstring- 4 DF- 3 EHL- 3 PF- 4 Lumbar spine-no SI tenderness, seated straight leg raising negative bilaterally No clonus Absent Babinski's bilaterally Absent Peña's bilaterally Tender to palpation of lumbar spine but tells me the pain is also numb but can feel me palpating Rectal tone is intact, reports intact sensation during rectal exam Recent Labs Lab 03/19/24 1850 03/20/24 0732 WBC 8.19 6.07 RBC 3.45* 3.63* HGB 7.7* 8.1* HCT 27.1* 29.0* MCV 78.6* 79.9* MCH 22.3* 22.3* MCHC 28.4* 27.9* PLT 303 281 RDW 23.2* 22.8* MPV 10.3 9.9 PERNEU 69.5 64.4 PERLYM 19.4 24.4 PERMON 10.1 10.2 NEUC 5.69 3.91 LYMC 1.59 1.48 MONOC 0.83* 0.62 EOSC 0.03* 0.03* BASOC 0.01 0.01 DTYPE AUTOMATED DIFFERENTIAL AUTOMATED DIFFERENTIAL Recent Labs Lab 03/19/24 1504 03/20/24 0732 NA 135* 136 K 4.4 4.1 CL 101 101 CO2 29.7 31.8 AGAP 4.3* 3.2* BUN 18 17 CR 1.04 0.81 BUNCREATININ 17.3 21.0 GLU 204* 109* CA 8.7 8.8 TP 5.9* -- ALB 3.0* -- TBIL 0.3 -- ALKP 112 -- AST 31 -- ALT 34 -- Recent Labs Lab 03/19/24 1437 INR 1.3 No results found for this visit on 03/19/24 (from the past 8736 hour(s)). Microbiology Results (last 14 days) No results found for the last 336 hours. Neurologic Imaging: Radiology Results (Last 48 hours) 03/19/24 1831 MRI LUMB SPINE WO CON Final result Impression: IMPRESSION: 1. Advanced multilevel degenerative changes in the lumbar spine. Severe spinal canal stenosis at L3-L4 and L4-L5 with complete effacement of the thecal sac and no discernible CSF signal surrounding the cauda equina. Additional moderate to severe canal stenosis at L5-S1. 2. Multilevel severe/moderate to severe foraminal narrowing from L3-L4 through L5-S1. 3. Additional degenerative changes elsewhere as detailed. 4. S-shaped thoracolumbar scoliosis and multilevel listheses. 5. Prostatomegaly with mass effect upon the bladder. Could correlate with PSA. Referred By: Interpreted By: Matias Miranda MD, 03/19/2024 6:48 PM 03/19/24 1831 MRI THOR SPINE WO CON Final result Impression: IMPRESSION: 1. Multilevel degenerative changes in the thoracic spine as detailed above. 2. No obvious thoracic cord signal abnormality identified, though assessment is limited by motion and artifact. 3. Partially imaged degenerative changes in the cervical spine with multilevel cervical spinal canal stenosis suspected. Could further evaluate with cervical spine MRI. 4. Partially imaged marked enlargement of the left lobe of the thyroid with mass effect upon the trachea, esophagus, and adjacent neck vasculature. Could further evaluate with thyroid ultrasound. Referred By: Interpreted By: Matias Miranda MD, 03/19/2024 6:34 PM Assessment Principal Problem: Back pain SNOMED CT(R): BACKACHE Plan Patient is a 68-year-old gentleman with an extensive medical history as outlined above. Sen in the past by other neurosurgical office with chronic back and right leg pain, weakness, deconditioning, urinary incontinence. Follows with [facility] neurology. Currently admitted per patient at recommendation of his neurologist to r/o cauda equina for which neurosurgery was consulted. He reports primary chronic, constant back pain with right leg pain to the lesser degree, worse on the calf. Chronic numbness and tingling to both feet. Chronic intermittent urinary incontinence only at night. One episode of reported bowel incontinence awhile ago. Not having urinary incontinence this admission per nursing. PVR without e/o urinary retention. H/o neck pain w/o radicular arm pain which spontaneously resolved. Chronic hand paresthesias. Chronic left hemiparesis 2/2 stroke. PE reveals left hemiparesis which is consistent with his h/o of stroke, questionable of acute vs chronic weakness based on prior neurologic exams by others. Rectal tone intact. Lumbar imaging with multi-level chronic degenerative findings including significant scoliosis, DDD, spinal and foraminal stenosis of varying degrees. Spinal stenosis is severe at multiple levels. Question reactive edema vs infection at L3-4 disc space. Afebrile. Neurosurgery Plan: - pain management per primary team - lumbar complaints appear chronic. PE and complaints not consistent with acute cauda equina syndrome. Recommend MRI lumbar spine WWO contrast r/o acute discitis. If imaging unremarkable, would recommend outpatient management of lumbar spinal stenosis. Patient and niece are aware if lumbar decompression to be consider in the future, this would not have impact on his chronic back pain which is his primary concern - primary team has ordered an MRI c-spine which remains pending. Given history, may need to address surgically. He does have left hemiparesis but uncertain if there is acute worsening vs chronic left hemiparesis. He has no myelopathic findings on his PE currently. - neuro checks - activity as tolerated, okay for PT/OT from NSGY perspective Neurosurgery will continue to follow pending MRI cervical and lumbar spine results. Plan of care d/w patient, niece, and bedside RNs. Thank you for allowing us to participate in this patient's care. Code Status: Full Code Patient case including history and physical, imaging, diagnosis, and treatment reviewed with attending neurosurgeon Dr. Harrison. Mikayla Shaver, [employer] Signed by: MIKAYLA SHAVER 03/20/2024 10:02 PM Joseph Rust MD Attn: Accounting,[address] [place], [address], [facility] 08/02/2024 13:14:33 Consult Note : [facility] [place] [address] [place] [address] Patient Name: CAREY SANTOS Date of : 1955 Med Rec #: [id number] Date of Service: 03/21/2024 Disch Date: NEUROLOGY NOTE Name:[facility]y [facility] #IPLOS@ Date of Service: 03/22/2024 ID: 68-year-old male HPI: We had the pleasure of seeing Mr. Santos in the hospital. He is accompanied by family. History is obtained from both of them and review of records. He has complicated past medical history including that of coronary disease, atrial fibrillation, diabetes, neuropathy, spinal stenosis, peripheral vascular disease, hyperlipidemia, hypertension among others. He recently had an episode where he was confused, not himself, and passed out. He is following up with cardiology for the episode of syncope. However he was admitted and had a MRI of the brain which did not show any acute infarct, showed mild to moderate burden of microvascular disease. Echo was normal. He is already on Eliquis, Plavix and statins. He has not had any similar episodes. There is no seizure-like activity. There is no alteration of awareness. There is no tongue biting, loss of bowel or bladder episode. On the background of this, he has also noticed that his legs have become weak progressively. He does have a history of spinal stenosis. He notes that his gait is wobbly and unsteady. He has had near falls, and falls in the past. There is numbness and tingling in his legs, as well as in his hands. He does have low back pain. The back pain can go down to his spine. There is no significant neck pain. There is no dizziness. There is no vertigo. There is no headache. There is no double vision. There is no similar history in the family. I had ordered MRI of the neuraxis as outpatient. He has not able to do them because he was hospitalized multiple times for COPD exacerbation. Last time I saw him in the clinic, he has noticed significant worsening of the weakness in the legs, and bladder incontinence. I end up admitting him to the hospital for cauda equina syndrome. He has had further MRI workup. Review of Systems Gen: denies recent fever Eyes: denies double vision ENT: denies epistaxis Pulm: denies shortness of breath Cardiac: denies Chest pain Musc: has back pain Heme: denies easy bruising Neuro: See [facility] MEDICATIONS: albuterol 2.5 mg Nebulization 3x daily - RT amLODIPine 5 mg Oral Daily atorvastatin 80 mg Oral Daily carvedilol 25 mg Oral BID DULoxetine 60 mg Oral Daily enoxaparin 40 mg Subcutaneous Nightly (enoxaparin) ferrous sulfate EC 324 mg Oral Every Other Day fluticasone-salmeterol 2 puff Inhalation 2 times daily insulin glargine 0.2 Units/kg Subcutaneous Nightly at bedtime insulin lispro 0-14 Units Subcutaneous TID AC And insulin lispro 0-7 Units Subcutaneous Nightly at bedtime losartan 100 mg Oral Daily montelukast 10 mg Oral Daily pantoprazole EC 20 mg Oral Daily pregabalin 75 mg Oral TID tiotropium 2 puff Inhalation Daily acetaminophen, albuterol sulfate HFA, dextrose 10 % bolus, glucagon, glucose, HYDROcodone-acetaminophen, HYDROmorphone, hydrOXYzine, naLOXone, ondansetron . Past Medical History: Diagnosis Date COPD (chronic obstructive pulmonary disease) ([facility]) Diabetes mellitus ([facility]) GERD (gastroesophageal reflux disease) Hypertension Spinal stenosis Stroke ([facility]) . Past Surgical History: Procedure Laterality Date ABDOMINAL SURGERY . Social History Socioeconomic History Marital status: Single Spouse name: Not on file Number of children: Not on file Years of education: Not on file Highest education level: Not on file Occupational History Not on file Tobacco Use Smoking status: Former Types: Cigarettes Smokeless tobacco: Never Vaping Use Vaping status: Never Used Substance and Sexual Activity Alcohol use: Not Currently Drug use: Not Currently Sexual activity: Not on file Other Topics Concern Not on file Social History Narrative Pt lives at home with niece. Pt uses walker and cane for ambulation. Pt also has a scooter. Pt has HHC that visits a few times a week. Social Determinants of Health Financial Resource Strain: Low Risk (03/20/2024) Overall Financial Resource Strain (CARDIA) Difficulty of Paying Living Expenses: Not hard at all Food Insecurity: No Food Insecurity (03/20/2024) Hunger Vital Sign Worried About Running Out of Food in the Last Year: Never true Ran Out of Food in the Last Year: Never true Transportation Needs: No Transportation Needs (03/20/2024) PRAPARE - Transportation Lack of Transportation (Medical): No Lack of Transportation (Non-Medical): No Physical Activity: Not on file Stress: Not on file Social Connections: Moderately Isolated (02/27/2024) Received from [facility] Social Connection and Isolation Panel [NHANES] Frequency of Communication with Friends and Family: More than three times a week Frequency of Social Gatherings with Friends and Family: More than three times a week Attends Je[employer] Services: 1 to 4 times per year Active Member of Clubs or Organizations: No Attends Club or Organization Meetings: Never Marital Status: Never Intimate Partner Violence: Not At Risk (03/20/2024) Humiliation, Afraid, Rape, and Kick questionnaire Fear of Current or Ex-Partner: No Emotionally Abused: No Physically Abused: No Sexually Abused: No Housing Stability: Low Risk (03/20/2024) Housing Stability Vital Sign Unable to Pay for Housing in the Last Year: No Number of Times Moved in the Last Year: 1 Homeless in the Last Year: No . Family History Problem Relation Name Age of Onset Hypertension Mother Vital signs: JOSE@ . Filed Vitals: 03/21/24 0903 03/21/24 1139 03/21/24 1553 03/21/24 2102 BP: 117/55 107/57 117/54 Pulse: 68 67 70 Resp: 18 18 18 Temp: 98.5 degreeF (36.9 degreeC) 98.9 degreeF (37.2 degreeC) 99.9 degreeF (37.7 degreeC) TempSrc: Oral Oral Oral SpO2: 96% 97% 100% 97% Weight: Height: MENTAL STATUS: Patient was alert, awake and oriented x3, regards and follows commands. Normal language. CRANIAL NERVES: II: Pupils were equal, round and reactive to light III, IV, : normal extraocular movements V: Normal jaw closure and opening. VII: face was symmetric. IX-X: palate elevates at midline. XI: normal symmetric shoulder shrug. XII: tongue was midline and strong. No fasciculations. MOTOR: Normal strength 5/5 on MRC scale in the upper and 3-/5 in lower extremities. SENSATION: Reduced to temperature until the thighs b/l , vibration is 4/8 b/l on feet, 8/8 on knees and fingers b/l, proprioception is impaired in feet .Romberg sign was positive. COORDINATION: Absent dysmetria on finger -nose -finger. No tremor. GAIT: Wide based, unsteady REFLEXES: Normal 2+/4 in upper and 0 in lower extremities. Plantars are mute. Peña's negative. ASSESSMENT and PLAN: In summary Mr. Santos has severe central spinal canal stenosis at L3-L4, L4-L5, with complete effacement of the thecal sac, and compression of the cauda equina. MRI of the cervical spine also shows multilevel severe neuroforaminal as well as central canal stenosis without myelomalacia. Neurosurgery is on board. They recommend conservative outpatient management. So far MRI of the lumbar spine with contrast does not show clear evidence of discitis, ESR and CRP have been normal. If there is concern for discitis, I recommend getting ID consult to further evaluate this. Please have neurosurgery assessed the MRI cervical spine as well. Patient has a thyroid nodule/mass, further workup as per primary team.Patient also has significant prostatomegaly, further workup as outpatient. Continue conservative management for history of stroke. If applicable, I have personally reviewed the above laboratory results and/or imaging. 40 minutes were spent with the patient with greater than 50% of the time spent in counseling and coordination of care. DENILSON STEINER MD 03/22/2024 12:27 AM Neurology Service Signed by: DENILSON STEINER 03/22/2024 00:35 AM Joseph Rust MD Attn: [facility],[address] [place], [address], [facility] 08/02/2024 13:14:34 Consult Note : [place] [address] Patient Name: CAREY SANTOS Date of : 1955 [facility] Rec #: [id number] Date of Service: 03/20/2024 Disch Date: Attestation signed by Cedric Harrison MD at 03/25/24 9579 IFACUNDO MD, participated in the care of this patient today and discussed the plan of care with MADDIE Armstrong, who shared in this visit. I have reviewed the MADDIE's documentation and agree with the findings except as I have documented. I personally spent 30 minutes, caring for this patient. Given the clinical presentation and imaging findings of severe cord compression, I recommended for him surgery in the form of C3-4 and C4-5 anterior cervical discectomy and fusion with autograft and allograft, internal fixation with anterior cervical plate, intraoperative neurophysiological monitoring. We discussed the potential benefits which is mainly to protect his current spinal cord function. We discussed risks including but not limited infection bleeding, spinal cord injury, nerve root injury, weakness, paralysis, loss of sensation, loss of bowel or bladder control, failure to improve, swallowing difficulty, breathing difficulty, change in voice, stroke, pseudoarthrosis, hardware complications, anesthesia complications. We discussed the expected postoperative course. He expressed understanding and agreed to proceed. Questions were invited and answered. FACUNDO HARRISON MD Neurosurgery Consultation Note History Thank you for allowing us to evaluate this 68-year-old male in neurosurgical consultation. Patient has an extensive past medical history significant for DM type 2 with last Hgb A1c of 7.2% this admission, HTN, stroke with chronic left hemiparesis, COPD, PVD,CAD, GERD, CHF, A. Fib, neuropathy, depression, chronic pain disorder. Seen March 2023 by [facility] neurosurgery for chronic back and right leg pain, urinary incontinence, deconditioning, and difficulty with ambulation. It appears at that time he was being evaluated for cervical stenosis as well with plans for possible intervention. Appears he was on Plavis and Eliquis, discontinued at 0307 today. Patient also follows with [facility] neurology. He presented to the ED yesterday per patient at the recommendation of his neurologist d/t worsening low back pain and LE weakness, r/o cauda equina syndrome for which neurosurgery was consulted. Patient in bed during examination. His niece is at bedside. Niece reports recently moving to the area to live with patient to help take care of him. She has been appointed POA per patient's request. Information obtained from both patient and niece, as well as chart review. Patient complains of chronic back pain and right leg pain. Back pain is significantly worse than his right leg. Right leg pain involves buttock, posterior thigh to his calf. Calf pain is significantly worse compared to remainder of leg. He reports intermittent chronic urinary incontinence that only occurs in his sleep. He has no incontinence during the day and is able to fully control his bladder per patient's report. Per nursing, he has had no issues with urinary incontinence this admission. He has had one episode of complete bowel incontinence awhile ago. Denies saddle anesthesia. Tells me his back feels numb. He has chronic numbness and tingling of both feet. No left leg pain. Per patient and his niece, he is able to walk in the house and transfer but mostly uses a motorized scooter for mobilization as he reports feeling significant back pain and weakness. Separately, patient reports chronic left hemiparesis 2/2 stroke, weakness is worse in his arm compared to his leg. At one point he reported neck pain but no arm pain but this has since resolved. He states he has chronic numbness/tingling in his hands from wrist to fingers. Patient is lethargic throughout exam and falls asleep frequently requiring stimulation to continue with PE. Voided 300 cc, PVR revealed 30 cc. MRI c-spine is pending per primary service. MRI lumbar spine WWO contrast is pending to r/o potential discitis at L3-4 given abnormal imaging. At this time, he remains afebrile. No leukocytosis. CRP mildly elevated. SED rate WNL. Procal WNL. Orders Placed This Encounter Procedures Inpatient Consult to Neurosurgery [facility] Standing Status: Standing Number of Occurrences: 1 Order Specific Question: Reason for Consult? Answer: Back pain Order Specific Question: Has the consulting provider been contacted? Answer: Yes Order Specific Question: Who was the provider consulted? Answer: Dr. Harrison Order Specific Question: Location: Answer: [facility] Past Medical History: Diagnosis Date COPD (chronic obstructive pulmonary disease) ([facility]) Diabetes mellitus ([facility]) GERD (gastroesophageal reflux disease) Hypertension Spinal stenosis Stroke ([facility]) Past Surgical History: Procedure Laterality Date ABDOMINAL SURGERY Social History Tobacco Use Smoking status: Former Types: Cigarettes Smokeless tobacco: Never Vaping Use Vaping status: Never Used Substance Use Topics Alcohol use: Not Currently Drug use: Not Currently Family History Problem Relation Name Age of Onset Hypertension Mother albuterol 2.5 mg Nebulization 3x daily - RT amLODIPine 5 mg Oral Daily atorvastatin 80 mg Oral Daily carvedilol 25 mg Oral BID DULoxetine 60 mg Oral Daily ferrous sulfate EC 324 mg Oral Every Other Day fluticasone-salmeterol 2 puff Inhalation 2 times daily insulin glargine 0.2 Units/kg Subcutaneous Nightly at bedtime insulin lispro 0-14 Units Subcutaneous TID AC And insulin lispro 0-7 Units Subcutaneous Nightly at bedtime losartan 100 mg Oral Daily montelukast 10 mg Oral Daily pantoprazole EC 20 mg Oral Daily pregabalin 75 mg Oral TID tiotropium 2 puff Inhalation Daily acetaminophen, albuterol sulfate HFA, dextrose 10 % bolus, glucagon, glucose, HYDROcodone-acetaminophen, HYDROmorphone, hydrOXYzine, naLOXone, ondansetron Allergies Allergen Reactions Metformin Other (see comment) Lactic acidosis Vancomycin Palpitations and Shortness of Breath Physical Exam Filed Vitals: 03/20/24 1416 03/20/24 1600 03/20/24201803/20/242033 BP: (!) 162/73 (!) 142/66 Pulse: 66 67 Resp: 18 Temp: 99.1 degreeF (37.3 degreeC) 98.4 degreeF (36.9 degreeC) TempSrc: Oral Oral SpO2: 92% 98% 98% 100% Weight: Height: Neurologic Exam: Higher order function alert and oriented x 4 (person, place, situation, date) Shellie Coma Scale 15, speech fluent. Frequently falls asleep through interview/exam requiring stimulation Cranial nerves III-XII intact with exception of XL 2/2 left weak shoulder shrug Cerebellar examination no dysmetria with finger-nose testing on the right, FRANCESCA on the left 2/2 left hemiparesis RUE and RLE strength intact on detailed motor exam, grossly 5/5 LUE and LLE motor as follows: Deltoid- 2 Biceps- 4- Triceps- 5 WE, FE, intrinsics 0 (hand contracted) Minimal able to stitcher standard machine d/t hand contracted IP- 4 Quad- 4 Hamstring- 4 DF- 3 EHL- 3 PF- 4 Lumbar spine-no SI tenderness, seated straight leg raising negative bilaterally No clonus Absent Babinski's bilaterally Absent Peña's bilaterally Tender to palpation of lumbar spine but tells me the pain is also numb but can feel me palpating Rectal tone is intact, reports intact sensation during rectal exam Recent Labs Lab 03/19/24 1850 03/20/24 0732 WBC 8.19 6.07 RBC 3.45* 3.63* HGB 7.7* 8.1* HCT 27.1* 29.0* MCV 78.6* 79.9* MCH 22.3* 22.3* MCHC 28.4* 27.9* PLT 303 281 RDW 23.2* 22.8* MPV 10.3 9.9 PERNEU 69.5 64.4 PERLYM 19.4 24.4 PERMON 10.1 10.2 NEUC 5.69 3.91 LYMC 1.59 1.48 MONOC 0.83* 0.62 EOSC 0.03* 0.03* BASOC 0.01 0.01 DTYPE AUTOMATED DIFFERENTIAL AUTOMATED DIFFERENTIAL Recent Labs Lab 03/19/24 1504 03/20/24 0732 NA 135* 136 K 4.4 4.1 CL 101 101 CO2 29.7 31.8 AGAP 4.3* 3.2* BUN 18 17 CR 1.04 0.81 BUNCREATININ 17.3 21.0 GLU 204* 109* CA 8.7 8.8 TP 5.9* -- ALB 3.0* -- TBIL 0.3 -- ALKP 112 -- AST 31 -- ALT 34 -- Recent Labs Lab 03/19/24 1437 INR 1.3 No results found for this visit on 03/19/24 (from the past 8736 hour(s)). Microbiology Results (last 14 days) No results found for the last 336 hours. Neurologic Imaging: Radiology Results (Last 48 hours) 03/19/24 1831 MRI LUMB SPINE WO CON Final result Impression: IMPRESSION: 1. Advanced multilevel degenerative changes in the lumbar spine. Severe spinal canal stenosis at L3-L4 and L4-L5 with complete effacement of the thecal sac and no discernible CSF signal surrounding the cauda equina. Additional moderate to severe canal stenosis at L5-S1. 2. Multilevel severe/moderate to severe foraminal narrowing from L3-L4 through L5-S1. 3. Additional degenerative changes elsewhere as detailed. 4. S-shaped thoracolumbar scoliosis and multilevel listheses. 5. Prostatomegaly with mass effect upon the bladder. Could correlate with PSA. Referred By: Interpreted By: Matias Miranda MD, 03/19/2024 6:48 PM 03/19/24 1831 MRI THOR SPINE WO CON Final result Impression: IMPRESSION: 1. Multilevel degenerative changes in the thoracic spine as detailed above. 2. No obvious thoracic cord signal abnormality identified, though assessment is limited by motion and artifact. 3. Partially imaged degenerative changes in the cervical spine with multilevel cervical spinal canal stenosis suspected. Could further evaluate with cervical spine MRI. 4. Partially imaged marked enlargement of the left lobe of the thyroid with mass effect upon the trachea, esophagus, and adjacent neck vasculature. Could further evaluate with thyroid ultrasound. Referred By: Interpreted By: Matias Miranda MD, 03/19/2024 6:34 PM Assessment Principal Problem: Back pain SNOMED CT(R): BACKACHE Plan Patient is a 68-year-old gentleman with an extensive medical history as outlined above. Sen in the past by other neurosurgical office with chronic back and right leg pain, weakness, deconditioning, urinary incontinence. Follows with [facility] neurology. Currently admitted per patient at recommendation of his neurologist to r/o cauda equina for which neurosurgery was consulted. He reports primary chronic, constant back pain with right leg pain to the lesser degree, worse on the calf. Chronic numbness and tingling to both feet. Chronic intermittent urinary incontinence only at night. One episode of reported bowel incontinence awhile ago. Not having urinary incontinence this admission per nursing. PVR without e/o urinary retention. H/o neck pain w/o radicular arm pain which spontaneously resolved. Chronic hand paresthesias. Chronic left hemiparesis 2/2 stroke. PE reveals left hemiparesis which is consistent with his h/o of stroke, questionable of acute vs chronic weakness based on prior neurologic exams by others. Rectal tone intact. Lumbar imaging with multi-level chronic degenerative findings including significant scoliosis, DDD, spinal and foraminal stenosis of varying degrees. Spinal stenosis is severe at multiple levels. Question reactive edema vs infection at L3-4 disc space. Afebrile. Neurosurgery Plan: - pain management per primary team - lumbar complaints appear chronic. PE and complaints not consistent with acute cauda equina syndrome. Recommend MRI lumbar spine WWO contrast r/o acute discitis. If imaging unremarkable, would recommend outpatient management of lumbar spinal stenosis. Patient and niece are aware if lumbar decompression to be consider in the future, this would not have impact on his chronic back pain which is his primary concern - primary team has ordered an MRI c-spine which remains pending. Given history, may need to address surgically. He does have left hemiparesis but uncertain if there is acute worsening vs chronic left hemiparesis. He has no myelopathic findings on his PE currently. - neuro checks - activity as tolerated, okay for PT/OT from NSGY perspective Neurosurgery will continue to follow pending MRI cervical and lumbar spine results. Plan of care d/w patient, niece, and bedside RNs. Thank you for allowing us to participate in this patient's care. Code Status: Full Code Patient case including history and physical, imaging, diagnosis, and treatment reviewed with attending neurosurgeon Dr. Harrison. Mikayla Shaver, [employer] FACULTY MEMBER Signed by: MIKAYLA SHAVER 03/20/2024 10:02 PM Joseph Rust MD Attn: [facility]ing,[address] [place], [address], [facility] 08/02/2024 13:14:34 Educational Technician Consult Note : This document (1 of 1) was received from [email or web address] on 05/01/2024 through Direct Message along with the following message body content: Patient Name: CAREY SANTOS. Patient : 1955. Patient . Joseph Rust MD Attn: [facility],[address] [place], [address], [facility] 08/02/2024 13:14:35 Procedures Surgical History Date Name Laterality Status Provider Name and Address Organization Details Recorded Time 3 Routine Foot Care completed ANTHONY PIEDRA DPM [address] [place], [address], [facility] 06/15/2023 16:13:53 3 Routine Foot Care completed ISAEL DE JESUS DPM [address] [place], [address], [facility] 02/08/2023 20:59:42 1 Routine Foot Care completed ANTHONY PIEDRA, DPM [address], [place], [address], [facility] 08/05/2021 15:39:31 1 Routine Foot Care completed ANTHONY PIEDRA, DPM [address], [place], [address], [facility] 05/27/2021 16:14:17 1 Cerumen removal without microscope [facility] 10/06/2020 12:07:29 0 Routine Foot Care completed Sj Kerry DPM [address], [place], [address], [facility] 05/14/2020 16:38:20 9 Routine Foot Care completed Sj Kerry DPM [address], [place], [address], [facility] 10/24/2018 10:06:50 8 Routine Foot Care completed ANTHONY PIEDRA, DPM [address], [place], [address], [facility] 03/20/2018 17:38:42 Imaging Results None recorded. Procedure Notes None recorded. Medical Equipment None Reported. Allergies Allergen ID Allergen Name Allergen Category Reaction Reaction Severity Criticality Documentation Date Start Date Code Code System Note Provider Name and Address Organization Details Recorded Time 552729 metformin medicatio n other Not available high 07/08/20252023 6809 RxNorm Lacti c acido sis Not Available [employer] - External Data Service - prod 21:58:22 868681 vancomyci n medicatio n dyspnea palpitati ons Not available Not available high 07/08/20252021 78852 RxNorm Not Available [employer] - External Data Service - prod 21:58:22 Medications Name Sig Start Date Stop Date Status Note LastModified by Organization Details LastModified Time clever choice comfort ez insulin pe n needles 73cy2ts 31g x 8 mm misc active Not [...] e 50 mcg/actua tion nasal spray,varsha pension Archie 1 spray every day by intranas al [...] e Short Pen Needle 31 gauge x /16 USE FOUR TIMES DAILY DIRECTED active Not [...] Available Not Available No t Available Afluria 1321-8359 (PF) 45 mcg (15 mcg x 3)/0.5 [...] Available Not Available Not Available Dexcom G7 Nurse Esthetician USE DIRECTED active Not Available Not Available No t Available Dexcom G7 Sensor device active Not Available Not Available Not Available Vitals Date Recorded Body height Oxygen saturation Pain severity - 0-10 verbal numeric rating [Score] - Reported Heart rate Respiratory rate Body temperature Systolic And Diastolic Provider Name and Address Organization Details Last Updated DateTime 4 170.18 cm 96 % 0 89 /min 18 /min 98.3 [degF] 153/76 mm[Hg] Jett Barnes [place] [facility] 4 17:01:48 Date Recorded Body height Body mass index (BMI) Body weight Oxygen saturation Pain severity - 0-10 verbal numeric rating [Score] - Reported Heart rate Respiratory rate Body temperature Systolic And Diastolic Systolic And Diastolic Provider Name and Address Organization Details Last Updated DateTime 4 170.18 cm 23.5 kg/m2 25361.2 6 g 94 % 0 86 /min 18 /min 97 [degF] 88/57 mm[Hg] 74/51 mm[Hg] Jett Barnes MA [facility] 4 13:18:33 Date Recorded Body height Body mass index (BMI) Body weight Provider Name and Address Organization Details Last Updated DateTime 06/06/2023 170.18 cm 22.5 kg/m2 75538.81 g Bill Lr MA [facility] 06/06/2023 17:06:27 Date Recorded Body height Body mass index (BMI) Body weight Heart rate Body temperature Pain severity - 0-10 verbal numeric rating [Score] - Reported Systolic And Diastolic Provider Name and Address Organization Details Last Updated DateTime 3 170.18 cm 21.4 kg/m2 29448.8 g 78 /min 98.6 [degF] 7 134/75 mm[Hg] Missy Amanda MA [facility] 3 15:55:45 Date Recorded Body height Oxygen saturation Pain severity - 0-10 verbal numeric rating [Score] - Reported Heart rate Respiratory rate Body temperature Systolic And Diastolic Provider Name and Address Organization Details Last Updated DateTime 4 170.18 cm 98 % 0 76 /min 18 /min 97.2 [degF] 112/73 mm[Hg] Jett Barnes MA [facility] 4 12:54:48 Social History Question Answer Notes LastModified by Organizat ion Details LastModified Time Tobacco Smoking Status Current Every Day Smoker Jaime Garduno MA [facility], [facility] 01/16/2018 19:09:55 What Was The Date [...] Functional Status Question Answer Note LastModified by Organizat ion Details LastModified Time What is your level of alcohol consumption? Occasional Information not available 12/13/2017 Difficulty driving at night? No Information no t available 12/13/2017 Mental Status None recorded. Family History Nothing Reported. Medical History Condition Response Coronary Artery Disease N Other Y Atrial Fibrillation N High Blood Pressure Y Thyroid Problems N Kidney or Bladder Problems N Depression N COPD N Blood Clots N GI Problems N Skin Problems N Anemia N Heart Attack (OK) N Diabetes Y Anxiety Disorder N Muscle, Joint, or Bone Problems N Seizures/Epilepsy N Acid Reflux (GERD) Y Cancer N Stroke N Allergies N Asthma N High Cholesterol N Hepatitis N Liver Disease N Headaches N Osteoporosis N Heart Failure N Immunizations Vaccine Type Date Status Note Provider Nam e and Address Organization Details Recorded Time Influenza, split virus, quadrivalent, preservative 6 completed Not Available [facility] 09/14/2019 02:32:35 Influenza, high-dose, trivalent, PF 7 completed Not Available [facility] 09/14/2019 02:40:56 Influenza, split virus, quadrivalent, PF 8 completed Not Available [facility] 09/14/2019 02:36:00 COVID-19, mRNA, LNP-S, PF, 30 mcg/0.3 mL dose 1 completed Gilberto Posadas [place] null, [place] - [facility] 08/24/2021 14:44:03 Influenza, high-dose, quadrivalent, PF 2 completed Bill Lr [place], [place] [facility] 11/16/2021 16:33:14 Past Encounters Encounter ID Performer Location Encounter Start Date Encounter Closed Date Diagnosis/Indication Diagnosis SNOMED-CT Code Diagnosis ICD10 Code Diagnosis IMO Codes Diagnosis Note [id number] Joseph Rust MD [address] [address] 07/29/2014 16:12:00 07/29/2014 18:27:54 Essential hypertension [id number] Diabetes mellitus 98439146 Osteoarthritis 515915577 p ain meds and see specialist ... surgery pending per patient... pain warrants surgery per patient... follow up with surgery Gastroesop hageal reflux disease [id number] [id number] Joseph Rust MD [address] [address] 08/29/2014 14:44:07 09/01/2014 12:53:33 Diabetes mellitus 56701444 Essential hypertension 64471581 Gastroesop hageal reflux disease 123566718 Osteoarthritis 494482030 p ain meds and follow up [id number] Joseph Rust MD [address] [address] 10/27/2014 15:31:56 10/29/2014 14:09:16 Diabetes mellitus 49586162 meds and follow up Essential hypertension 02574057 Gastroesop hageal reflux disease 470278249 Osteoarthritis 232554828 p ain meds and follow up [id number] Joseph Rust MD [address] [address] 05/18/2015 12:10:10 05/27/2015 09:52:24 Diabetes mellitus 28203306 meds and follow up... check labs in 3 months... Essential hypertension 43131411 meds and follow up Gastroesop hageal reflux disease 776749071 meds and follow up... Osteoarthritis 140044958 m eds and follow up.. Cerebrovas cular accident [id number] 2011.... meds. 4/5 left side weakness [id number] Joseph Rust MD [address] [address] 09/08/2015 15:51:58 09/21/2015 17:03:22 Cerebrovascular accident [id number] I63.9 2011.... meds. 4/5 left side weakness Diabetes mellitus 804267 09 E11.9 meds and follow up... check labs in 3 months... Essential hypertension 04564251 I10 meds and follow up Gastroesop hageal reflux disease 874277671 K21.9 meds and follow up... Osteoarthritis 604821914 M19.90 low back pain... Cellulitis of finger 275 80572 L03.011 right middle finger... [id number] Keshav Milian MD [facility] [address] [address] 10/05/2015 14:03:40 10/06/2015 14:57:28 Pain of shoulder region 35774403 M25.512 Backache 178857680 M54.5 Localized, primary osteoarthritis of the shoulder region 850070089 M19.012 Adhesive c apsulitis of shoulder 061374409 M75.02 Scoliosis of lumbar spine 561523880 M41.87 [id number] Joseph Rust MD [place] [address] 3 11/12/2015 16:15:18 12/01/2015 17:17:24 Cerebrovascular accident 598533379 I63.9 2011.... meds. 4/5 left side weakness Diabetes mellitus 083615 09 E11.9 meds and follow up... Essential hypertension 62281250 I10 meds and follow up Gastroesop hageal reflux disease 614084380 K21.9 meds and follow up... Osteoarthritis 361127549 M19.90 meds and follow up... Impotence 697034330 N52. 9 meds and follow up... [id number] Joseph Rust MD [address] [address] 04/21/2016 16:14:12 04/23/2016 03:47:56 Cerebrovascular accident [id number] I63.9 2011.... meds. 4/5 left side weakness Diabetes mellitus 594674 09 E11.9 meds and follow up... Gastroesop hageal reflux disease 927378536 K21.9 meds and follow up... Osteoarthritis 893434911 M19.90 meds and follow up...seein g surgeon... Impotence 706122253 N52. 9 meds and follow up... [id number] Joseph Rust MD [place] [address] 3 06/21/2016 15:39:40 06/28/2016 10:18:05 Diabetes mellitus 35403410 E11.9 meds and follow up... Essential hypertension 79064471 I10 meds and follow up Cerebrovas cular accident [id number] I63.9 2011.... meds. 4/5 left side weakness Osteoarthritis 823609014 M19.90 meds and follow up...seeadilson rico surgeon... Impotence 413991675 N52. 9 meds and follow up... Gastroesop hageal reflux disease 462761272 K21.9 meds and follow up... Cellulitis 027356353 L03 .90 meds and continue drainage [id number] Joseph Rust MD [address] [address] 08/12/2016 11:59:30 08/24/2016 09:17:18 Diabetes mellitus 15914146 E11.9 meds and follow up... [id number] Joseph Rust MD [address] [address] 12/08/2016 14:11:12 12/15/2016 16:18:40 Osteoarthritis 826822555 M19.90 meds and follow up...fernando rico surgeon... Diabetes mellitus 882895 09 E11.9 meds and follow up... Essential hypertension 65508277 I10 meds and follow up Gastroesop hageal reflux disease 417434762 K21.9 meds and follow up... Impotence 271711322 N52. 9 meds and follow up... Cerebrovas cular accident 920296577 I63.9 2011.... meds. 4/5 left side weakness [id number] Joseph Rust MD [address] [address] 01/17/2017 19:19:55 01/31/2017 19:09:49 Osteoarthritis 847864246 M19.90 meds and follow up...fernando rico surgeon... [id number] Joseph Rust MD [address] [address] 02/07/2017 18:23:00 02/14/2017 14:53:18 Electrocardiogram abnormal 034898343 R94.31 [id number] Joseph Rust MD [address] [address] 04/13/2017 12:46:39 04/13/2017 15:39:53 Cerebrovascular accident 287297930 I63.9 2011.... meds. 4/5 left side weakness Diabetes mellitus 361960 09 E11.9 meds and follow up... Essential hypertension 72838871 I10 meds and follow up Osteoarthritis 096560821 M19.90 meds and follow up...fernando rico surgeon... scheduled for right hip Impotence 486781653 N52. 9 meds and follow up... Gastroesop hageal reflux disease 382831476 K21.9 meds and follow up... [id number] Joseph Rust MD [address] 3 06/20/2017 16:46:14 06/21/2017 16:16:14 Cerebrovascular accident [id number] I63.9 2011.... meds. 4/5 left side weakness Essential hypertension 45189875 I10 meds and follow up Diabetes mellitus 668573 09 E11.9 meds and follow up... check labs in 3 months... Gastroesop hageal reflux disease 728096567 K21.9 meds and follow up... Osteoarthritis 683283142 M19.90 meds and follow up...fernando rico surgeon... scheduled for right hip , and was successful ...05/07, now 11/04... [id number] Joseph Rust MD [place] [address] 3 08/17/2017 16:16:35 08/24/2017 09:05:11 Cerebrovascular accident [id number] I63.9 2011.... meds. 4/5 left side weakness Essential hypertension 78477632 I10 meds and follow up Diabetes mellitus 713761 09 E11.9 meds and follow up... check labs in 3 months... Gastroesop hageal reflux disease 137962513 K21.9 meds and follow up... Osteoarthritis 207086939 M19.90 meds and follow up...fernando rico surgeon... scheduled for right hip , and was successful ...05/07, now 11/04... Acute left otitis media 090818380 H66.92 meds and follow up... [id number] Joseph Rust MD [place] [address] 11/15/2017 14:13:44 11/16/2017 11:13:23 Diabetes mellitus 41113767 E11.9 meds and follow up... check labs in 3 months... Essential hypertension 91373661 I10 meds and follow up Cerebrovas cular accident 973937351 I63.9 2011.... meds. 4/5 left side weakness Gastroesop hageal reflux disease 475210276 K21.9 meds and follow up... Osteoarthritis 781184280 M19.90 meds and follow up...fernando rico surgeon... scheduled for right hip , and was successful ...05/07, now 11/04... [id number] Nikita Urbina MD [facility] [address] [address] 12/13/2017 10:50:37 12/14/2017 16:33:42 Type 2 diabetes mellitus without complication 156096410 E11.9 Nuclear sc lerotic cataract 710450979 H25.13 Dry eyes 563269323 H04.1 23 [id number] Joseph Rust MD [address] [address] 01/16/2018 18:10:20 01/18/2018 09:08:55 Osteoarthritis 561276918 M19.90 meds and follow up...fernando rico surgeon... scheduled for right hip , and was successful ...05/07, now 11/04... low back MRI is significan t... may need surgery... Tobacco user 976418854 Z 72.0 send patches and follow up.. [id number] Joseph Rust MD [address] [address] 02/15/2018 14:42:07 02/16/2018 08:42:46 Osteoarthritis 945179934 M19.90 meds and follow up...fernando rico surgeon... scheduled for right hip , and was successful ...05/07, now 11/04... low back MRI is significan t... may need surgery... [id number] ANTHONY PIEDRA DPM [facility] [address] [place] [address] 03/20/2018 16:15:52 03/30/2018 13:54:32 Disorder of nervous system due to type 2 diabetes mellitus 690596362 E11.42 Bilateral atherosclerosis of arteries of lower limbs 3828160990 6856312 I70.203 Onychomycosis 310407906 B35.1 Folcroft - lesion 217950141 L84 Disorder of ligament 604 58585 M24.20 Tibialis p osterior tendinitis 731113179 M76.829 Ataxic gait 76884907 R26 .0 Muscle weakness 87579154 M62.81 [id number] Joseph Rust MD [address] [address] 05/18/2018 14:20:42 05/21/2018 09:34:49 Diabetes mellitus 53219713 E11.9 meds and follow up... check labs in 3 months... Osteoarthritis 049904841 M19.90 meds and follow up...fernando rico surgeon... scheduled for right hip , and was successful ...05/07, now 11/04... low back MRI is significan t... may need surgery... Essential hypertension 18066568 I10 meds and follow up Cerebrovas cular accident 096805924 I63.9 2011.... meds. 4/5 left side weakness Gastroesop hageal reflux disease 822008633 K21.9 meds and follow up... Abscess of perineum 3570 8002 L02.215 meds and refer [id number] Joseph Rust MD [address] [address] 07/24/2018 15:14:04 07/27/2018 09:07:24 Diabetes mellitus 61469781 E11.9 meds and follow up... check labs in 3 months... Osteoarthritis 612084323 M19.90 meds and follow up...fernando rico surgeon... scheduled for right hip , and was successful ...05/07, now 11/04... low back MRI is significan t... may need surgery... on Oxycodone per surgeon.. Essential hypertension 56346777 I10 meds and follow up Cerebrovas cular accident 907511574 I63.9 2012.... meds. 4/5 left side weakness Gastroesop hageal reflux disease 938303485 K21.9 meds and follow up... Abscess of perineum 3570 8002 L02.215 meds and referred.. . lesions resolved without surgery... [id number] Joseph Rust MD [address] [address] 09/21/2018 14:55:30 09/24/2018 14:09:01 Diabetes mellitus 12286967 E11.9 meds and follow up... check labs in 3 months... Osteoarthritis 461043661 M19.90 meds and follow up...fernando rico surgeon... scheduled for right hip , and was successful ...05/07, now 11/04... low back MRI is significan t... may need surgery... on Oxycodone per surgeon.. Essential hypertension 33899866 I10 meds and follow up Cerebrovas cular accident 505984556 I63.9 2012.... meds. 4/5 left side weakness Gastroesop hageal reflux disease 319184555 K21.9 meds and follow up... 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 Tinnitus 38081896 H93.13 refer [id number] Joseph Rust MD [address] [address] 03/29/2019 12:48:40 04/01/2019 08:57:14 Diabetes mellitus 43946380 E11.9 meds and follow up... check labs in 3 months... Osteoarthritis 769081739 M19.90 meds and follow up...fernando rico surgeon... scheduled for right hip , and was successful ...05/07, now 11/04... low back MRI is significan t... may need surgery... on Oxycodone per surgeon.. Essential hypertension 09650383 I10 meds and follow up Cerebrovas cular accident 035557335 I63.9 2011.... meds. 11/30 left side weakness Gastroesop hageal reflux disease 028025748 K21.9 meds and follow up... h/o GI bleed... start PPi and refer with anemia hx... note also has weight loss... follow up with admissin paperwork. . Anemia 386842174 D64.9 refer Neuropathy 845879761 G62 .9 ointment and follow up.. [id number] Sj Payne DPM [facility] [address] [place] [address] 05/14/2020 15:23:05 05/18/2020 13:04:12 Neuropathy due to diabetes mellitus 160646118 E11.42 Congenital vertical talus 774402214 Q66.80 Onychomycosis 451182281 B35.1 Foot callus 170705614 L8 4 [id number] Ryan Peters MD [facility] [address] [place] [address] 10/06/2020 12:03:46 11/26/2020 03:47:03 Impacted cerumen 63993630 H61.20 Sensorineu ral hearing loss of bilateral ears 425927668 H90.3 [id number] Joseph Rust MD [address] [address] 02/24/2021 13:21:08 02/25/2021 09:03:54 Diabetes mellitus 38670015 E11.9 meds and follow up... 1 month Osteoarthritis 569251817 M19.90 meds and follow up...fernando rico surgeon... scheduled for right hip , and was successful ...05/07, now 11/04... low back MRI is significan t... Essential hypertension 14279149 I10 meds and follow up Cerebrovas cular accident 042490338 I63.9 2011.... meds. 4/5 left side weakness Anemia 532889829 D64.9 refer Neuropathy 329873924 G62 .9 ointment and follow up.. Chronic ob structive pulmonary disease 32622915 J44.9 meds and follow up... [id number] Joseph Rust MD [address] [address] 03/19/2021 12:33:17 03/26/2021 03:47:01 [id number] Joseph Rust MD [address] [address] 04/27/2021 13:22:08 04/27/2021 19:52:54 Gastroesophageal reflux disease 023594405 K21.9 meds and follow up... h/o GI bleed... Essential hypertension 82293910 I10 meds and follow up... losartan 50 mg... Tobacco user 613005186 Z 72.0 send patches and follow up.. Primary er ectile dysfunction 393943654 N52.9 meds and follow up Neuropathy 039348282 G62 .9 ointment and follow up.. Diabetes mellitus 203751 09 E11.9 meds and follow up... Pain in left knee 710429 9369 21268 M25.562 meds as needed... Cerebrovas cular accident 429323579 I63.9 2011.... meds. 4/5 left side weakness, but no focal findings except small vessel disease.. [id number] ANTHONY PIEDRA DPM [facility] [address] [place] [address] 05/27/2021 16:01:51 06/24/2021 07:48:02 Disorder of nervous system due to type 2 diabetes mellitus 089766120 E11.42 Bilateral atherosclerosis of arteries of lower limbs 6504066784 5115889 I70.203 Onychomycosis 495957629 B35.1 Folcroft - lesion 081066613 L84 Tibialis p osterior tendinitis 223985336 M76.829 Ataxic gait 26703142 R26 .0 Muscle weakness 05198279 M62.81 Difficulty walking 29267 2002 R26.2 Unsteady when walking 22 013116 R26.89 Disorder of ligament 604 36989 M24.271 M24.403 [id number] Joseph Rust MD [address] [address] 06/01/2021 16:56:51 06/02/2021 11:57:36 Foot pain 34774273 M79.673 seeing photographer ... Cerebrovas cular accident 991515749 I63.9 2011.... meds. 4/5 left side weakness, but no focal findings except small vessel disease... ordered scooter chair ... will investigat e and follow up... [id number] ANTHONY PIEDRA DPM [facility] [address] [place] [address] 08/05/2021 15:16:27 08/09/2021 08:03:40 Disorder of nervous system due to type 2 diabetes mellitus 328807643 E11.42 Bilateral atherosclerosis of arteries of lower limbs 3820983723 1454926 I70.203 Onychomycosis 191791884 B35.1 Folcroft - lesion 203585962 L84 Tibialis p osterior tendinitis 268541822 M76.829 Ataxic gait 71828226 R26 .0 Muscle weakness 90816222 M62.81 Difficulty walking 84614 2002 R26.2 Unsteady when walking 22 956123 R26.89 Disorder of ligament 604 96526 M24.271 M24.272 Tinea pedis 8489845 B35. 3 [id number] Joseph Rust MD [address] [address] 08/24/2021 14:26:45 08/25/2021 12:58:44 Administration of SARS-CoV-2 mRNA vaccine 2119996559 Z23 [id number] Joseph Rust MD [address] [address] 11/16/2021 15:14:09 11/19/2021 09:34:42 Diabetes mellitus 45548680 E11.9 meds and follow up... Gastroesop hageal reflux disease 041829738 K21.9 meds and follow up... h/o GI bleed... Essential hypertension 76253574 I10 meds and follow up... increase losartan 100 mg... Primary er ectile dysfunction 194693079 N52.9 meds and follow up Neuropathy 308320045 G62 .9 ointment and follow up.. Pain in left knee 021135 0452 11576 M25.562 meds as needed... in painmanage ment Cerebrovas cular accident 343450274 I63.9 2011.... meds. 4/5 left side weakness, but no focal findings except small vessel disease on head image... treat risk factors.. Smoker 08994524 F17.200 patches Acute dermatitis 9584137 6 L30.9 [id number] Joseph Rust MD [address] [address] 01/26/2022 11:40:33 01/27/2022 08:44:36 Diabetes mellitus 63332879 E11.9 meds and follow up... Gastroesop hageal reflux disease 242440148 K21.9 meds and follow up... h/o GI bleed... Essential hypertension 22316759 I10 meds and follow up... amlodipine 10 mg and check next month... Primary er ectile dysfunction 150146898 N52.9 meds and follow up Neuropathy 789245733 G62 .9 ointment and follow up.. Pain in left knee 933690 6580 26321 M25.562 meds as needed... in pain management Cerebrovas cular accident 474064557 I63.9 2011.... meds. 4/5 left side weakness, but no focal findings except small vessel disease on head image... treat risk factors.. Smoker 74111478 F17.200 patches Acute dermatitis 7426656 6 L30.9 meds as needed... good skin care.. Chronic ob structive pulmonary disease 24207735 J44.9 meds and follow up...advis ed smoking cessation. .. added nebulizer. . Atrial fibrillation 4943 6004 I48.91 [id number] Joseph Rust MD [address] [address] 03/07/2022 11:27:01 03/08/2022 07:39:27 Chronic obstructive pulmonary disease 38058553 J44.9 meds and follow up...advis ed smoking cessation. .. added nebulizer. . sees Dr. Adam haines... Essential hypertension 68944793 I10 meds and follow up... refill meds prn Diabetes mellitus 711548 09 E11.9 meds and follow up... Gastroesop hageal reflux disease 606956836 K21.9 meds and follow up... h/o GI bleed... Primary er ectile dysfunction 085709153 N52.9 meds and follow up Neuropathy 204366531 G62 .9 ointment and follow up.. Pain in left knee 789780 4487 76370 M25.562 meds as needed... in pain management ... Cerebrovas cular accident 051619328 I63.9 2011.... meds. 4/5 left side weakness, but no focal findings except small vessel disease on head image... treat risk factors... scooter chair ordered 04-27-2021 ... Smoker 20036870 F17.200 patches Acute dermatitis 8823598 6 L30.9 meds as needed... good skin care.. Atrial fibrillation 4943 6004 I48.91 refer to cardiologi [id number] Joseph Rust MD [address] [address] 06/17/2022 14:00:17 06/20/2022 08:28:30 Diabetes mellitus 32027397 E11.9 meds and follow up... Essential hypertension 22601531 I10 meds and follow up... refill meds prn Osteoarthritis 282250187 M19.90 meds and follow up...fernando rico surgeon... scheduled for right hip , and was successful ...05/07, now 11/04... low back MRI is significan t... Chronic ob structive pulmonary disease 81315172 J44.9 meds and follow up...advis ed smoking cessation. .. added nebulizer. . sees Dr. Adam haines... Gastroesop hageal reflux disease 387511209 K21.9 meds and follow up... h/o GI bleed... Cerebrovas cular accident 951298723 I63.9 2011.... meds. 4/5 left side weakness, but no focal findings except small vessel disease on head image... treat risk factors... scooter chair ordered 04-27-2021 ... History of claudication 201757907 Z86.79 left lower ext was done around 7 years ago... [id number] Joseph Rust MD [address] [address] 10/20/2022 14:59:19 10/21/2022 08:12:52 Diabetes mellitus 18681026 E11.9 meds and follow up... Essential hypertension 10373387 I10 meds and follow up... refill meds prn Osteoarthritis 705357608 M19.90 meds and follow up...seein g surgeon... scheduled for right hip , and was successful ...05/07, now 11/04... low back MRI is significan t... Gastroesop hageal reflux disease 908248913 K21.9 meds and follow up... h/o GI bleed... Cerebrovas cular accident 168368248 I63.9 2011.... meds. 4/5 left side weakness, but no focal findings except small vessel disease on head image... treat risk factors... scooter chair ordered 04-27-2021 ... Chronic ob structive pulmonary disease 91102208 J44.9 meds and follow up...advis ed smoking cessation. .. added nebulizer. . sees Dr. Adam haines... Neuropathy 435392048 G62 .9 ointment and follow up.. Anemia 145406954 D64.9 refer Peripheral vascular disease 570371682 I73.9 refer Smoker 13936358 F17.200 patches [id number] Joseph Rust MD [address] [address] 01/26/2023 15:26:45 01/27/2023 11:34:52 Diabetes mellitus 88146175 E11.9 meds and follow up... Body mass index 20-24 - normal 114387968 Z68.22 bmi=22.3 Neuropathy 000560479 G62 .9 ointment and follow up... refer to neuro... Pain in bi lateral feet 4691612766 0677476 M79.671 M79.672 refer Essential hypertension 86476336 I10 meds and follow up... refill meds prn Osteoarthritis 576286910 M19.90 meds and follow up...fernando rico surgeon... scheduled for right hip , and was successful ...05/07, now 11/04... low back MRI is significan t... Gastroesop hageal reflux disease 061645557 K21.9 meds and follow up... h/o GI bleed... Cerebrovas cular accident 089384907 I63.9 2011.... meds. 4/5 left side weakness, but no focal findings except small vessel disease on head image... treat risk factors... scooter chair ordered 04-27-2021 ... Chronic ob structive pulmonary disease 61397727 J44.9 meds and follow up...advis ed smoking cessation. .. added nebulizer. . sees Dr. Adam haines... Peripheral vascular disease 639355211 I73.9 referred and s/p surgery... Anemia 683924608 D64.9 refer Smoker 69640880 F17.200 stopped 2021 [id number] ISAEL DE JESUS DPM [facility] [address] [address] 02/07/2023 16:26:24 02/13/2023 12:36:42 Disorder of nervous system due to type 2 diabetes mellitus 399722447 E11.42 Patient was educated about the systemic [...] Bilateral atherosclerosis of arteries of lower limbs 1556913832 3950525 I70.203 Patient educated on risks and aggravatin g factors of PVD, including conservati ve treatment options such as a diet and exercise regimen to aid in slowing progressio n of vascular disease. Onychomycosis 951780190 B35.1 Aseptic debridemen t of elongated thickened [...] on treatments . Tibialis p osterior tendinitis 715686254 M76.829 The patient was educated regarding how [...] iously ordered b/l emily braces; patient given [facility] contact informatio n Ataxic gait 48944607 R26 .0 Muscle weakness 58798004 M62.81 Difficulty walking 04619 2002 R26.2 Unsteady when walking 22 431371 R26.89 Disorder of ligament 604 04771 M24.271 M24.272 Pain of to e of right foot 0514986658 01955 M79.674 Pain of to e of left foot 0041600793 24566 M79.022 [id number] Joseph Rust MD [place] [address] 3 04/04/2023 17:47:56 04/05/2023 15:36:53 Body mass index 20-24 - normal 717100835 Z68.22 bmi=22.5 Atrial fibrillation 4943 [address]48[address]... on Eliquis... Cerebrovas cular accident 925413100 I63.9 2011.... meds. 4/5 left side weakness, but no focal findings except small vessel disease on head image... treat risk factors... scooter chair obtained, but doesnt have transporte r for it, but had stroke Hyperlipidemia 23889378 E78.5 atorvastat in Anemia 270403712 D64.9 follow up from ER... [id number] Joseph Rust MD [place] [address] 3 06/06/2023 16:58:01 06/07/2023 08:27:16 Diabetes mellitus 91894027 E11.9 meds and follow up... Essential hypertension 58239469 I10 meds and follow up... refill meds prn Osteoarthritis 951840958 M19.90 meds and follow up...seeadilson rico surgeon... scheduled for right hip , and was successful ...05/07, now 11/04... low back MRI is significan t... Gastroesop hageal reflux disease 138756451 K21.9 meds and follow up... h/o GI bleed... Cerebrovas cular accident 841083242 I63.9 2011.... meds. 4/5 left side weakness, but no focal findings except small vessel disease on head image... treat risk factors... scooter chair obtained, but doesnt have transporte r for it, but had stroke Chronic ob structive pulmonary disease 87936498 J44.9 meds and follow up...advis ed smoking cessation. .. added nebulizer. . sees Dr. Adam haines... Neuropathy 125570702 G62 .9 ointment and follow up... refer to neuro... Body mass index 20-24 - normal 711758481 Z68.22 bmi=22.5 [id number] [facility] [address] [address] 06/15/2023 15:36:10 06/19/2023 15:29:02 Disorder of nervous system due to type 2 diabetes mellitus 654736430 E11.42 Bilateral atherosclerosis of arteries of lower limbs 9248677000 4961410 I70.203 Onychomycosis 318821258 B35.1 Folcroft - lesion 477052166 L84 Tibialis p osterior tendinitis 000978502 M76.829 Ataxic gait 24657649 R26 .0 Muscle weakness 03887697 M62.81 Difficulty walking 98394 2002 R26.2 Unsteady when walking 22 328596 R26.89 Disorder of ligament 604 14859 M24.271 M24.272 Tinea pedis 3020810 B35. 3 [id number] Joseph Rust MD [address] [address] 2023 16:47:03 12/26/2023 10:04:29 Diabetes mellitus 63437508 E11.9 meds and follow up... Peripheral vascular disease 022772988 I73.9 referred and s/p surgery... still has sx of claudicati on... Polyuria 26817007 R35.89 Essential hypertension 45292355 I10 meds and follow up... refill meds prn Chronic ob structive pulmonary disease 19246954 J44.9 meds and follow up...advis ed smoking cessation. .. added nebulizer. . sees Dr. Adam haines... Cerebrovas cular accident 143379857 I63.9 2011.... meds. 4/5 left side weakness, but no focal findings except small vessel disease on head image... treat risk factors... scooter chair obtained, but doesnt have transporte r for it, but had stroke Atrial fibrillation 4943 [address] I48[address]... on Eliquis... Spinal sriram nosis of lumbar region 00634119 M48.061 seeing neurosurge ry... [id number] Joseph Rust MD [address] [address] 03/11/2024 12:53:59 03/13/2024 10:09:45 Diabetes mellitus 40442224 E11.9 meds and follow up... Body mass index 20-24 - normal 905027217 Z68.22 bmi=23.5 Neuropathy 662730716 G62 .9 ointment and follow up... refer to neuro... Hyperlipidemia 22157056 E78.5 atorvastat in Depressive disorder 3548 9007 F32.A Itching of skin 91133266 0 L29.9 Essential hypertension 23529437 I10 meds and follow up... refill meds prn Gastroesop hageal reflux disease 340595026 K21.9 meds and follow up... h/o GI bleed... Cerebrovas cular accident 297004084 I63.9 2011.... meds. 4/5 left side weakness, but no focal findings except small vessel disease on head image... treat risk factors... scooter chair obtained, but doesnt have transporte r for it, but had stroke Chronic ob structive pulmonary disease 93449872 J44.9 meds and follow up...advis ed smoking cessation. .. added nebulizer. . sees Dr. Adam haines... Low back pain 484479638 M54.50 [id number] Joseph Rust MD [address] [address] 08/02/2024 12:33:00 08/05/2024 10:08:52 Adult health examination 786258449 Z00.00 Diabetes mellitus 384906 09 E11.9 meds and follow up... Lantus 10 units q hs... Body mass index 20-24 - normal 231012325 Z68.22 bmi=23.5 Neuropathy 467892941 G62 .9 ointment and follow up... referred to neuro... Hyperlipidemia 53792683 E78.5 atorvastat in.. Depressive disorder 3548 9007 F32.A Itching of skin 03445869 0 L29.9 Essential hypertension 16894392 I10 meds and follow up... refill meds prn Gastroesop hageal reflux disease 340244302 K21.9 meds and follow up... h/o GI bleed... Cerebrovas cular accident 060199621 I63.9 2011.... meds. 4/5 left side weakness, but no focal findings except small vessel disease on head image... treat risk factors... scooter chair obtained, but doesnt have transporte r for it, but had stroke Chronic ob structive pulmonary disease 11340164 J44.9 meds and follow up...advis ed smoking cessation. .. added nebulizer. . sees Dr. Adam haines... Low back pain 117956864 M54.50 in pain management ... Constipation 41972423 K5 9.00 Carotid ar irvin stenosis 56481254 I65.29 has appt with vascular surgeon... 08-20-2024 appt at [facility]... Health Concerns Section Related Observation LastModified by Organization Detai ls LastModified Time None Recorded Concern Status LastModified by Organization Details LastModified Time None Recorded Advance Directives Directive None Recorded Payers Insurance Date Sequence Insurance Name Policy Number Policy Gomez Covered Member ID Gomez Member ID Guarantor Name 03/11/2024 2 [employer] (MEDICARE SUPPLEMENT) Carey Santos [id number] Carey Santos 03/11/2024 1 [place] Carey Santos [id number] Carey Santos 03/11/2024 1 [employer] (MEDICARE REPLACEMENT/AD VANTAGE - PPO) [id number] Carey Santos [id number] Carey Santos 03/11/2024 [place] [facility] [id number] Carey Santos 03/11/2024 2 [place] WHEN MEDICARE OR MEDICARE REPLACEMENT PRIMARY) Carey Santos [id number] Carey Santos 03/11/2024 1 [place] OR MEDICARE REPLACEMENT PRIMARY) Carey Santos [id number] Carey Santos 03/11/2024 1 [facility] PRIOR TO 03/28/2025 (MEDICAID REPLACEMENT - HMO) [id number] Carey Santos [id number] Carey Santos 11/09/2024 1 [facility] (MEDICARE REPLACEMENT/AD VANTAGE - HMO) [id number] Carey Santos [id number] Carey Santos Notes Date Note Type Note Provider Name and Address Organization Details Recorded Time 06/06/2023 text/html ROS as noted in the HPI request referral for neuropathy,... no fevers/chills/SOB. .. unable to walk more than 50 feet... no S/h ideations... Joseph Rust MD Attn: [address] [place], [address], [facility] 06/06/2023 18:06:36 06/15/2023 text/html ROS as noted in the HPI Patient presents today for evaluation and treatment [...] not interested in any surgical intervention. ANTHONY PIEDRA DPM [address] [place], [address], [facility] 06/15/2023 16:25:36 2023 text/html ROS as noted in the HPI still has fatigue... also has polyuria... 6 months... Joseph Rust MD Attn: [address] [facility], [place], [address], [facility] 2023 17:43:00 03/11/2024 text/html ROS as noted in the HPI went to ER with low blood sugars... no S/H ideations... has SOB... Joseph Rust MD Attn: [address] [facility], [place], [address], [facility] 03/11/2024 13:52:01 08/02/2024 text/html ROS as noted in the HPI feels OK... low back pain still evident... unable to ambulate now without assistance... cervical spine surgery by Katherine... has appt for low back surgery, but he was dx with carotid stenosis... stopped smoking x 1 week... has home PT/OT coming to his home... had hypoglycemic episodes for admission.. Joseph Rust MD Attn: [address] [facility], [place], [address], [facility] 08/02/2024 13:38:38
--- OUTSIDE RECORDS SUMMARY | 2025-08-25 06:22 | XMS_ITS | Encounter Summary ---
Author Organization [facility] Facility Care Team Providers Care Interior Design Faculty Member Name Role Phone Joseph Rust MD Primary Care Provider [phone] Unknown, Notinfile Primary Care Provider Unavail able Joseph Rust MD Primary Care Provider [phone] Rafael Cordoba MD Primary Care Provider + [phone] Vanna Park NP Unavailable [phone] Haresh Cordoba DO Primary Care Provider + Joseph Rust MD Primary Care Provider [phone] Russ Ley MD Unavailable [phone] Goyo Medina MD Unavailable [phone] Encounter Details Date Type Department Care Team (Latest Contact Info) Description 01/27/2017 Orders Only [facility] CLINCONV ProviderKhalif MD [address] [place] [address] Social History Tobacco Use Types Packs/Day Years Used Date Smoking Tobacco: Never Assessed Sex and Gender Information Value Date Recorded Sex Assigned at Not on file Legal 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 Is COVID recovered, last positive 08/12/23 09/04/2023 09/04/2023 09/05/2023 7:58 A M [employer]TENA[employer] COVID: Recovered Comment:Added based on recent COVID [...] documented as of this encounter Care Teams Interior Design Faculty Member Relationship Specialty Start Date End Date Joseph Rust MD [address] [place] [address] PCP - General 01/11/18 01/18/18 Unknown, Notinfile PCP - General 01/19/18 10/02/18 Joseph Rust MD [address] [place] [address] PCP - General Family Medicine 10/03/18 10/10/19 Rafael Cordoba MD [address] [place] [address] [place] [address] PCP - General Family Medicine 10/11/19 01/13/21 Haresh Cordoba DO [address] [place] [address] [place] [address] PCP - General 01/14/21 01/11/22 Joseph Rust MD [address] [place] [address] PCP - General Family Medicine 01/12/22 Vanna [place] [address] Referring Physician Otolaryngology 09/03/20 Russ Ley MD [address] [facility] [address] [facility] [address] [place] [address] Surgeon Vascular Surgery 11/04/22 Goyo Medina MD [address] [facility] [address] [place] [address] Consulting Physician Pulmonary Disease 01/11/24 documented as of this encounter
--- OUTSIDE RECORDS SUMMARY | 2025-08-25 06:22 | XMS_ITS | Clinical Summary ---
Author Organization [facility] Address [address] [place] [address] Care Team Providers Care Berry Grower Name Role Phone Joseph Rust MD Primary Care Provider [phone] Allergies Active Allergy Reactions Criticality Noted Date [...] drink = 0.6 oz pur e alcohol) [facility] Utilities Answer Date Recorded In the [...] any time in the past 12 m [facility], were you homeless or living in a custodial (including now)? 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
--- NOTE | 2025-08-25 06:59 | SUR.OPER ---
Patient brought to GI Lab. Instructions for patient undergoing Capsule Endoscopy reviewed with patient. Consent form signed. Sensor array applied to patient's abdomen and connected to recorded. Patient swallowed capsule with 16 ozs of water infused with Simethicone. Patient instructed they may have clear liquids at 0830 this AM and eat or drink at 1030 this AM. Patient instructed to return to GI Lab at 1500 this afternoon for removal of recording device and to call [phone] or to return to the hospital if any nausea and vomiting or abdominal pain is experienced.
--- NOTE | 2025-08-25 15:46 | SUR.PREOP ---
Patient returned to the GI Lab at 1515 for recorder box removal. Patient voiced no complaints. States they have understanding of instructions. Patient left ambulatory.
--- NOTE | 2025-08-25 15:47 | SUR.PREOP ---
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
== END 2025-08-25 06:18 | disposition home or self-care (01) ==
LOC: ANHENDO 06:18
PROVIDERS: PCP Internal Medicine; Referring Provider Internal Medicine Gastroenterology; Visit Provider Internal Medicine Gastroenterology
PROC: (CPT 91110; principal; 2025-08-25 07:00)
DX: Z01.818 Encounter for other preprocedural examination (principal); D64.9 Anemia, unspecified
CPT/HCPCS: 91110